=== PATIENT | female | born 1960 | race Caucasian/White ===

== ENCOUNTER 2022-02-11 10:56 | Day surgery (SDC) | payer OTHER, SELFPAY ==
[2022-02-02 09:36] VITALS: BMI 24.2
--- NOTE | 2022-02-11 07:20 | PM.HPGS ---
History of Present Illness History of Present Illness Consent: Risks, benefits, and alternatives have been discussed and questions answered. Patient agrees to proceed with procedure. Chief complaint: Melena, Constipation, Family HX Colon Cancer Narrative: Lisa Hermosillo is a 62 year old female Who has had a change in bowel habits and has been seeing blood in her stools lately. She has had issues with constipation. She sees red blood in the stool with clots in the toilet bowl. She has a strong family history of colon cancer including her sister and her mother. Review of Systems Review of Systems: All systems reviewed & are unremarkable except as noted in HPI and below PMFSH Past Medical History Medical History Cancer Chronic constipation Family hx of colon cancer Hematochezia Hx of breast cancer Normocytic anemia Family History Family History Father Family history of malignant neoplasm Mother Carcinoma of colon Other Family history of malignant neoplasm of breast Social History Social History Smoking status: Never smoker Second hand tobacco smoke exposure: No Alcohol intake: current Substance use: never Substance use type: does not use Living arrangements: alone Gender identity (if verbalized by the patient): Female Spiritual care concerns: No Meds Home Medications and Allergies Home Medications Medication Instructions Recorded Confirmed Type aspirin 325 mg tablet 325 mg PO DAILY 01/29/22 02/02/22 History loratadine 10 mg tablet 10 mg PO DAILY 01/29/22 02/02/22 History magnesium 200 mg tablet 400 mg PO DAILY 01/29/22 02/02/22 History montelukast 10 mg tablet 10 mg PO DAILY 01/29/22 02/02/22 History tamoxifen 20 mg tablet 20 mg PO DAILY 01/29/22 02/02/22 History Allergies Allergy/AdvReac Type Severity Reaction Status Date / Time No Known Allergies Allergy Verified 02/11/22 11:23 Exam Const: General: alert Orientation/consciousness: patient oriented x3 Resp: Auscultation: clear to auscultation bilaterally Cardio: Rhythm: regular rhythm GI: GI Palp: Yes Soft to palpation and No Tenderness to palpation present (GI) Neuro: General: patient oriented x3 Assessment and Plan Assessment and plan (1) Hematochezia: Code(s): K92.1 - Melena Status: Acute Assessment and Plan: Colonoscopy with possible biopsy or polypectomy or cautery or injection of substances.
[2022-02-11 11:30] VITALS: BMI 24.2
[2022-02-11 11:33] VITALS: BP 140/72; PULSE 83; RESP 14; TEMP 36.9; O2SAT 100
[2022-02-11] MEDS: LACTATED RINGERS 1,000 ML 150 ML IV CONT (12:00)
--- NOTE | 2022-02-11 12:12 | P.PNAN_ITS ---
Anes - Initial Pre Proc Eval Procedure: Operation Date: 02/11/22 13:00 Proposed Procedures p Diagnostic Colonoscopy - Gilmer Nogueira MD Date/Time: 02/11/22 12:12 Surgeon: Gilmer Nogueira MD Pre Op Diagnosis: Melena, Constipation, Family HX Colon Cancer Patient Data Age: 62 Gender: F Height: 1.68 m Weight: 68.1 kg Last Vital Signs Temp 36.9 C 02/11/22 11:33 Pulse 83 02/11/22 11:33 Resp 14 02/11/22 11:33 BP 140/72 02/11/22 11:33 Pulse Ox 100 02/11/22 11:33 O2 Del Method Room Air 02/11/22 11:33 Allergies Allergy/AdvReac Type Severity Reaction Status Date / Time No Known Allergies Allergy Verified 02/11/22 11:23 Home Medications Medication Instructions Recorded Confirmed Type aspirin 325 mg tablet 325 mg PO DAILY 01/29/22 02/02/22 History loratadine 10 mg tablet 10 mg PO DAILY 01/29/22 02/02/22 History magnesium 200 mg tablet 400 mg PO DAILY 01/29/22 02/02/22 History montelukast 10 mg tablet 10 mg PO DAILY 01/29/22 02/02/22 History tamoxifen 20 mg tablet 20 mg PO DAILY 01/29/22 02/02/22 History Patient hx anesthesia problems: none Family hx anesthesia problems: none Results Review: All pre-operative results and documents have been reviewed as part of the pre- operative evaluation. [facility] Past Medical History Medical History Cancer Chronic constipation Family hx of colon cancer Hematochezia Hx of breast cancer Normocytic anemia Surgical History Surgical History (Updated 02/11/22 @ 12:13 by Jorge Luis Monte MD) H/O colonoscopy Status post left breast lumpectomy Family History Family History Father Family history of malignant neoplasm Mother Carcinoma of colon Other Family history of malignant neoplasm of breast Social History Social History Smoking status: Never smoker Second hand tobacco smoke exposure: No Alcohol intake: current Substance use: never Substance use type: does not use Living arrangements: alone Gender identity (if verbalized by the patient): Female Spiritual care concerns: No Anes - Eval Final PreProcedure Day of Procedure 02/11/22 12:12 Patient weight: normal Heart: regular rate and rhythm Lungs: clear to auscultation Airway: Mallampati scale class II Neurological: alert and oriented Last oral intake: >/= 8 hours ASA classification: III Emergent: no Anesthetic plan: proceed Anesthesia type and monitoring: general GIVS and standard monitoring Results Review: All pre-operative results and documents have been reviewed as part of the pre- operative evaluation. Informed Consent: The patient's anesthetic plan and its attendant risks and benefits were discussed with the patient/family/POA. Questions were solicited and answers provided to the satisfaction of the patient/family/POA.
[2022-02-11 12:59] VITALS: BP 113/74; PULSE 83; RESP 13; O2SAT 100
[2022-02-11 13:09] VITALS: BP 117/67; PULSE 77; RESP 14; O2SAT 99
--- NOTE | 2022-02-11 13:13 | WPDANESPN ---
Anes - Prog Note Post-Op Date/Time: 02/11/22 13:13 Cardiovascular status: normal Respiratory status: normal Airway patency: baseline Mental status: baseline Post-Op hydration status: normal Vital Signs: Last Vital Signs Temp 36.9 C 02/11/22 11:33 Pulse 77 02/11/22 13:09 Resp 14 02/11/22 13:09 BP 117/67 02/11/22 13:09 Pulse Ox 99 02/11/22 13:09 O2 Del Method Room Air 02/11/22 13:09 Pain Score (VAS): 0/10 I/O: Intake & Output 02/10/22 02/11/22 02/11/22 23:59 07:59 15:59 Intake Total 600 Balance 600 Patient Feedback: Patient satisfied with anesthetic care.
[2022-02-11 13:19] VITALS: BP 129/71; PULSE 77; RESP 14; O2SAT 99
== END 2022-02-11 13:37 | disposition home or self-care (01) ==
PROVIDERS: PCP Internal Medicine; Visit Provider Internal Medicine Gastroenterology
PROC: 0DJD8ZZ Inspection of Lower Intestinal Tract, Via Natural or Artificial Opening Endoscopic (ICD-10-PCS; CPT 45378; principal; 2022-02-11 13:00)
DX: K92.1 Melena (principal)
CPT/HCPCS: 45378

== ENCOUNTER 2022-11-10 10:07 | Outpatient (CLI) | payer BC, SELFPAY ==
[2022-11-10 18:52] LABS: Basophils Percent Auto 0.8 % (0.2-1.2); Eosinophils Absolute Auto 0.2 K/mm3 (0-0.3); Eosinophils Percent Auto 5.8 % (0-4.4); Hematocrit 37.9 % (37.0-47.0); Hemoglobin 11.8 g/dL (12.0-15.0); Immature Granulocyte Absolute 0.01 K/mm3 (0.00-0.031); Immature Granulocyte Percent A 0.3 % (0-0.5); Lymphocytes Percent Auto 28.8 % (18.3-44.2); Mean Corpuscular HGB Conc 31.1 g/dl (32-36); Mean Corpuscular Volume 96.4 fl (80-100); Mean Platelet Volume 9.7 fl (7.4-10.4); Monocytes Absolute Auto 0.4 K/mm3 (0.1-0.6); Monocytes Percent Auto 9.9 % (2.6-8.5); Neutrophils Absolute Auto 2.1 K/mm3 (1.3-6.7); Neutrophils Percent Auto 54.4 % (45.5-73.1); Platelet Count Result 215 k/mm3 (150-375); Red Blood Count 3.93 M/mm3 (4.2-5.4); Red Cell Distribution Width 12.6 % (11.5-14.5); White Blood Count 3.8 K/mm3 (4.5-10.0)
[2022-11-10 19:16] LABS: Alanine Aminotransferase 23 U/L (6-35); Albumin Level 4.2 g/dL (3.5-5.1); Alkaline Phosphatase 79 U/L (38-126); Anion Gap 5 mmol/L (8-16); Aspartate Amino Transferase 40 U/L (14-36); Bilirubin,Total 0.3 mg/dL (0.2-1.3); Blood Urea Nitrogen 16 mg/dL (7-17); Calcium 9.5 mg/dL (8.4-10.2); Carbon Dioxide 34 mmol/L (22-30); Chloride 105 mmol/L (98-107); Cholesterol 214 mg/dL (0-200); Estimated Glomerular Filt Rate > 60; Glucose 87 mg/dL (65-110); HDL Direct 44 mg/dL; Potassium 4.8 mmol/L (3.4-5.0); Sodium 144 mmol/L (137-145); Triglycerides 107 mg/dL (<150)
[2022-11-10 19:27] LABS: LDL Cholesterol Direct 114 mg/dL
[2022-11-10 20:05] LABS: Vitamin D 25 Hydroxy 89.7 ng/mL
[2022-11-10 21:00] LABS: Iron 74 ug/dL (37-170); Percent Iron Saturation 25 % (20-50)
== END 2022-11-10 10:08 | disposition home or self-care (01) ==
LOC: ANHGOSHLAB 10:09
PROVIDERS: PCP Internal Medicine; Visit Provider Clinical Nurse Specialist
DX: Z13.220 Encounter for screening for lipoid disorders (principal); K59.09 Other constipation; E55.9 Vitamin D deficiency, unspecified; D64.9 Anemia, unspecified; M51.36 Other intervertebral disc degeneration, lumbar region; M54.41 Lumbago with sciatica, right side
CPT/HCPCS: 36415; 80053; 80061; 82306; 82728; 83540; 83550; 84443; 85025

== ENCOUNTER → 2023-06-02 10:14 | Outpatient (CLI) | payer BC, SELFPAY ==
--- NOTE | ~2023-06-02 | MR_ITS ---
EXAMINATION: MR brain/brain stem wo/w con DATE: 06/02/2023 11:18 INDICATION: Headache, unspecified. TECHNIQUE: Magnetic resonance imaging (MRI) of the brain and brainstem was performed without and with 13 mL MultiHance intravenous contrast. COMPARISON: None. FINDINGS: There is susceptibility artifact from material in the patient's mouth. There is no intracra nial hemorrhage, acute infarction, or abnormal intracranial mass lesion. The ventricles are normal in size. The paranasal sinuses are clear. The orbits are normal. There is a trace left mastoid effusion . IMPRESSION: 1. Normal brain. Reviewed, dictated and finalized at location A. SHING FRAME [employer]NER IMPRESSION: 1. Normal brain.
== END ==
PROVIDERS: Visit Provider Clinical Nurse Specialist
DX: G89.29 Other chronic pain (principal); R51.9 Headache, unspecified
CPT/HCPCS: 70553; A9577

== ENCOUNTER 2023-06-16 10:37 | Outpatient (CLI) | payer BC, SELFPAY ==
--- NOTE | ~2023-06-16 | MMUS_ITS ---
EXAMINATION: MM diagnostic kain BI w chauncey, US axilla LT HISTORY: Palpable left axillary abnormality TECHNIQUE: Additional 3-D tomosynthesis images of the breasts were performed and synthetic 2-D images were generated. CAD analysis was submitted and interpreted. High resolution left axillary ultrasound was performed. COMPARISON: Comparison to multiple prior studies sequentially, with oldest reviewed study dated 09/2017. BREAST PARENCHYMAL COMPOSITION: Dense: The breasts are heterogeneously dense, which may obscure small masses FINDINGS: MAMMOGRAPHIC FINDINGS: The breasts are stable. Stable postsurgical changes in the left breast consistent with previous lumpe ctomy. No new masses, calcifications or architectural distortion in either breast to suggest malignan cy. ULTRASOUND: Limited left axillary ultrasound: There are normal-appearing lymph nodes measuring up to 1.5 cm with normal fatty hilum. No pathologic lymph nodes are identified. IMPRESSION: 1. No evidence for malignancy in either breast. Benign findings. 2. Routine yearly screening mammogram and regular clinical breast examination are recommended. BI-RADS Category 2: Benign finding(s). Reviewed, dictated and finalized at location A. WELDER IMPRESSION: 1. No evidence for malignancy in either breast. Benign findings. 2. Routine yearly screening mammogram and regular clinical breast examination a re recommended. BI-RADS Category 2: Benign finding(s).
== END 2023-06-16 10:38 | disposition home or self-care (01) ==
PROVIDERS: PCP Clinical Nurse Specialist; Visit Provider Clinical Nurse Specialist
DX: R22.32 Localized swelling, mass and lump, left upper limb (principal); Z85.3 Personal history of malignant neoplasm of breast
CPT/HCPCS: 76882; 77062; 77066; G0279

== ENCOUNTER 2023-08-11 08:00 | Outpatient (CLI) | payer BC, SELFPAY ==
--- NOTE | ~2023-08-11 | CT_ITS ---
EXAMINATION: CT sinus wo con DATE: 08/11/2023 08:32 INDICATION: Chronic maxillary sinusitis TECHNIQUE: Computed tomography (CT) of the paranasal sinuses was performed without intravenous contra st. The dose-length product was 439.29 mGy-cm. Automated exposure control and iterative reconstructio n technique were employed. COMPARISON: MRI dated 06/02/2023 FINDINGS: There is mucosal thickening of the right maxillary sinus. No significant nasal septal devia tion. There is a right-sided zion bullosa. There are left-sided Javon cells. Ostiomeatal units are patent. Mastoids are pneumatized. IMPRESSION: 1. Mild right maxillary sinus disease. Reviewed, dictated and finalized at location B.
== END 2023-08-11 08:01 ==
PROVIDERS: PCP Clinical Nurse Specialist; Visit Provider Otolaryngology
DX: J32.0 Chronic maxillary sinusitis (principal)
CPT/HCPCS: 70486

== ENCOUNTER 2023-08-19 11:01 | Outpatient (CLI) | payer BC, SELFPAY ==
--- NOTE | ~2023-08-19 | XR_ITS ---
[id number] 08/19/2023 11:15 Indication: Neck pain Procedure: 3 views cervical spine Comparison: No prior studies for comparison. Findings: There is reversal of cervical lordosis. There is disc narrowing and endplate degenerative c hange at C4-5, C5-6. No prevertebral soft tissue swelling. Lung apices are unremarkable. Odontoid pro cess is unremarkable. Impression: 1: Moderate cervical spondylosis. Reviewed, dictated and finalized at location B. Impression: 1: Moderate cervical spondylosis.
== END 2023-08-19 11:02 ==
PROVIDERS: PCP Clinical Nurse Specialist; Visit Provider Clinical Nurse Specialist
DX: M47.22 Other spondylosis with radiculopathy, cervical region (principal)
CPT/HCPCS: 72040

== ENCOUNTER 2023-12-29 10:35 | Outpatient (CLI) | payer BC, SELFPAY ==
--- NOTE | ~2023-12-29 | DEXA_ITS ---
Bone Density Report Name: ANITHA OSBORN Age: 63 Sex: Female Ethnicity: White Date of : 1960 Indication: postmenopausal; screening for osteoporosis; cancer; asthma or emphysema; Referring Provider: KALYAN SAMANIEGO Study: Bone densitometry was performed. Exam Date: December 29, 2023 Accession number: [id number] Bone Density: Region BMD T-score Z-score Classification AP Spine(L1-L4) 0.974 -0.7 0.9 Normal Femoral Neck (Left) 0.705 -1.3 0.1 Osteopenia Total Hip (Left) 0.888 -0.4 0.6 Normal Femoral Neck (Right) 0.810 -0.4 1.0 Normal Total Hip (Right) 0.883 -0.5 0.6 Normal Femoral Neck Mean 0.757 -0.8 0.5 Normal Total Hip Mean 0.886 -0.5 0.6 Normal World Health Organization criteria for BMD impression classify patients as: Normal (T-score at or above -1.0), Osteopenia (T-score between -1.0 and -2.5), or Osteoporosis (T-score at or below -2.5). 10-year Fracture Risk(1): Major Osteoporotic Fracture 8.0% Hip Fracture 0.6% Reported Risk Factors: [place] (), Neck BMD=0.705, BMI=24.7 (1) FRAX(R) Version 3.08. Fracture probability calculated for an untreated patient. Fracture probability may be lower if the patient has received treatment. Clinical Information Provided by Patient: Has used the following medications: Vitamin D Has the following medical conditions: Asthma or Emphysema, Cancer Patient maximum height was 66 Menopause Age: 52 Drinks caffeinated beverages Onset of menses at age 15 Number of children 0 Impression: The patient has low bone mass, based on the Left Femoral Neck T-score. Discussion: BONE DENSITY IS LOW AT ONE OR MORE SKELETAL SITES. This patient's lowest T-score is low at one or more skeletal sites. It meets the World Health Organization's (WHO) criteria for ?low bone mass? (T-score between -1.0 and -2.5). The patient's 10-year risk of fracture as calculated by FRAX is less than the threshold where pharmacological therapy is recommended by the National Osteoporosis Foundation (NOF). However, all treatment decisions require clinical judgment and consideration of individual patient factors, including patient preferences, comorbidities, previous drug use, risk factors not captured in the FRAX model (e.g., frailty, falls, vitamin D deficiency, increased bone turnover, interval significant decline in bone density) and possible under or overestimation of fracture risk by FRAX. The patient should follow a healthful lifestyle (good nutrition with adequate calcium and vitamin D, and appropriate weight-bearing exercise). Follow-Up: Consider repeating this study in 2 to 3 years to reassess this patient's status, or sooner if there is some new clinical indication. Reported by: ANNIE on 01/03/2024 11:23:00 AM. Reviewed, dictated and finalized at location A.
== END 2023-12-29 10:36 | disposition home or self-care (01) ==
LOC: CHSIMG 10:36
PROVIDERS: PCP Clinical Nurse Specialist; Visit Provider Clinical Nurse Specialist
DX: Z78.0 Asymptomatic menopausal state (principal); M85.88 Other specified disorders of bone density and structure, other site
CPT/HCPCS: 77080

== ENCOUNTER 2024-02-09 10:48 | Outpatient (CLI) | payer BC, SELFPAY ==
--- NOTE | ~2024-02-09 | XR_ITS ---
EXAMINATION: XR chest 2V 02/09/2024 10:55 INDICATION: History of asthma. Shortness of breath. PROCEDURE: Two-view chest COMPARISON: No prior studies for comparison. FINDINGS: The lungs are clear. The cardiomediastinal silhouette is within normal limits. There are no pleural effusions. There is no pneumothorax suspected. IMPRESSION: 1: NO ACUTE CARDIOPULMONARY DISEASE. Reviewed, dictated and finalized at location B.
== END 2024-02-09 10:49 | disposition home or self-care (01) ==
LOC: GOSHIMG 10:49
PROVIDERS: PCP Clinical Nurse Specialist; Visit Provider Clinical Nurse Specialist
DX: R06.02 Shortness of breath (principal); Z87.09 Personal history of other diseases of the respiratory system
CPT/HCPCS: 71046

== ENCOUNTER → 2024-02-27 09:35 | Outpatient (REF) | payer BC, SELFPAY | LOC: ANHLAB 09:35 | PROVIDERS: PCP Clinical Nurse Specialist; Visit Provider Plastic Surgery | DX: L72.0 Epidermal cyst (principal); R22.2 Localized swelling, mass and lump, trunk | CPT/HCPCS: 88304 ==

== ENCOUNTER 2024-04-14 10:12 | Emergency (ER) | payer BC, SELFPAY ==
[2024-04-14 10:53] VITALS: BP 145/77; PULSE 74; RESP 14; TEMP 36.5; O2SAT 99
[2024-04-14 13:45] LABS: Add Urine Microscopic? YES; Appearance Urine Cloudy (Clear); Bilirubin Urine Negative (Negative); Blood Urine Negative (Negative); Color Urine Yellow (Yellow); Glucose Urine UA Negative (Negative); Ketones Urine Negative (Negative); Leukocyte Esterase Ur 2+ LEU/UL (Negative); Mucus Urine Present /lpf; Nitrate Urine Negative (Negative); Non Pathogenic Casts 0-2; Protein Urine Negative (Negative); RBC Urine 0-2 /hpf (0-2); Specific Grav Ur 1.023 (1.001-1.035); Squamous Epithelial Cell Urine None Seen /hpf (Few); Urobilinogen Urine 0.2 mg/dL (<2.0); WBC Urine 21-50 /hpf (0-3); pH Urine 5.5 (5.0-9.0)
[2024-04-14 13:46] LABS: Bacteria Urine Trace /hpf
--- NOTE | 2024-04-14 13:50 | ED.GENADULT ---
HPI - General Adult General Chief complaint: Urogenital-Female Stated complaint: back pain/ think I have a kidney stone Time Seen by Provider: 04/14/24 13:20 History of Present Illness HPI narrative: 64-year-old female presented emergency department for evaluation for lower back pain. Patient states the pain does feel similar to her previous kidney stones. Patient denies any specific urinary symptoms. Patient states the pain did start her lower back and did appear to worsen after she had an exercise regime. Patient states that the pain does sometimes radiate to her right flank. Patient denies any hematuria at home. Related Data Home Medications ?Medication ?Instructions ?Recorded ?Confirmed ?Last Taken ?Type loratadine 10 mg tablet 10 mg PO DAILY 01/29/22 12/29/23 Unknown History magnesium 200 mg tablet 400 mg PO DAILY 01/29/22 12/29/23 Unknown History montelukast 10 mg tablet 10 mg PO DAILY 01/29/22 12/29/23 Unknown History Saccharomyces boulardii 250 mg 250 mg PO BID 03/24/23 12/29/23 Unknown History capsule (Daily Probiotic (S. boulardii)) multivitamin 1 tablet PO DAILY 03/24/23 12/29/23 Unknown History Allergies Allergy/AdvReac Type Severity Reaction Status Date / Time No Known Allergies Allergy Verified 02/27/24 08:49 Review of Systems Review of Systems: All systems reviewed & are unremarkable except as noted in HPI and below PMFSH Past Medical History Medical History Cancer Chronic constipation Family hx of colon cancer Hematochezia Hx of breast cancer Normocytic anemia Surgical History Surgical History H/O colonoscopy History of mandibular surgery Sep 05 2023 Status post left breast lumpectomy Family History Family History Father Family history of malignant neoplasm Mother Carcinoma of colon Other Family history of malignant neoplasm of breast Social History Social History Social History: Caffeine-soda Smoking status: Former smoker Second hand tobacco smoke exposure: No Additional smoking assessment comments: quit 2005 Alcohol intake: current Alcohol use details: Rarely Substance use: never Substance use type: does not use Lack of Transportation: No Lack of Food: Never True Current Housing: I Have Housing Concerned About Future Housing: No Difficulty Paying Gas/Electric Bills: No Difficulty Paying for Meds: No Currently Unemployed: No Education: Trade/Vocational Certificate Difficulty w/ Childcare or Family Care: No Living arrangements: alone Occupation/Education: occupation Gender identity (if verbalized by the patient): Female Spiritual care concerns: No Exam Narrative: APPEARANCE: Well appearing, no pain, no distress, well-nourished. HEAD: normocephalic, atraumatic. EYES: PERRLA/EOMI, conjunctivae clear. NOSE: Normal no drainage EARS:TMS clear with good light reflex. THROAT: Pharynx clear, no exudate. NECK: Supple. No adenopathy, no masses. RESPIRATORY: Airway patent, respirations nonlabored. Clear to auscultation bilaterally, no rales, rhonchi, wheezing. CARDIOVASCULAR: Regular rate and rhythm without murmurs rubs or gallops. ABDOMINAL: Soft, nontender, nondistended, normal bowel sounds MUSCULOSKELETAL: Moves all extremities. Strength/ROM intact, No edema, No calf tenderness. NEURO: Alert. Cranial nerves II through XII intact. Good gait. Good coordination SKIN: Warm, dry. Normal Color Course Course Emergency Course: APPEARANCE: Well appearing, no pain, no distress, well-nourished. HEAD: normocephalic, atraumatic. EYES: PERRLA/EOMI, conjunctivae clear. NOSE: Normal no drainage EARS:TMS clear with good light reflex. THROAT: Pharynx clear, no exudate. NECK: Supple. No adenopathy, no masses. RESPIRATORY: Airway patent, respirations nonlabored. Clear to auscultation bilaterally, no rales, rhonchi, wheezing. CARDIOVASCULAR: Regular rate and rhythm without murmurs rubs or gallops. ABDOMINAL: Soft, nontender, nondistended, normal bowel sounds MUSCULOSKELETAL: Moves all extremities. Strength/ROM intact, No edema, No calf tenderness. NEURO: Alert. Cranial nerves II through XII intact. Grossly intact SKIN: Warm, dry. Normal Color Vital Signs Vital signs: Vital Signs Temperature 97.7 F 04/14/24 10:53 Pulse Rate 74 04/14/24 10:53 Respiratory Rate 14 04/14/24 10:53 Blood Pressure 145/77 H 04/14/24 10:53 Pulse Oximetry 99 04/14/24 10:53 Temperature 97.7 F 04/14/24 10:53 Pulse Rate 74 04/14/24 10:53 Respiratory Rate 14 04/14/24 10:53 Blood Pressure 145/77 H 04/14/24 10:53 Pulse Oximetry 99 04/14/24 10:53 Medical Decision Making MDM Narrative Medical decision making narrative: 64-year-old female presenting to the emergency department for evaluation for lower back pain. Patient was concerned that she was having another kidney stone or urinary tract infection versus muscular injury. Patient does have leukocyte esterase positive urine with high white blood cells. Urine culture will be ordered and patient will be started on antibiotics for suspected UTI. With a lack as hematuria and pain being at her mid level back I have low clinical concern for an obstructing ureteral calculi. Patient will also be provided medications for pain control in addition to Flexeril in case this is a musculoskeletal injury. Patient was updated the results of the workup patient was comfortable with plan for discharge and close follow-up. Differential Diagnosis Differential Diagnosis: UTI, ureteral calculi, back injury Vital Signs Vital Signs: Vital Signs Temperature 97.7 F 04/14/24 10:53 Pulse Rate 74 04/14/24 10:53 Respiratory Rate 14 04/14/24 10:53 Blood Pressure 145/77 H 04/14/24 10:53 Pulse Oximetry 99 04/14/24 10:53 Temperature 97.7 F 04/14/24 10:53 Pulse Rate 74 04/14/24 10:53 Respiratory Rate 14 04/14/24 10:53 Blood Pressure 145/77 H 04/14/24 10:53 Pulse Oximetry 99 04/14/24 10:53 Lab Data Lab results reviewed: Yes I reviewed the patient's lab results. Labs: Lab Results 04/14/24 Range/Units 13:27 Urine Color Yellow (Yellow) Urine Appearance Cloudy H (Clear) Urine pH 5.5 (5.0-9.0) Ur Specific [place] 1.023 (1.001-1.035) Urine Protein Negative (Negative) mg/dL Urine Glucose (UA) Negative (Negative) mg/dL Urine Ketones Negative (Negative) mg/dL Ur Blood (Man) Negative (Negative) Urine Nitrate Negative (Negative) Urine Bilirubin Negative (Negative) Urine Urobilinogen 0.2 (<2.0) mg/dL Leukocyte Esterase Rfl 2+ H (Negative) MILDRED/UL Urine RBC 0-2 (0-2) /hpf Urine WBC 21-50 H (0-3) /hpf Ur Squamous Epith Cells None seen (Few) /hpf Urine Bacteria Trace (None) /hpf Urine Casts 0-2 Urine Mucus Present /lpf Discharge Plan Discharge Clinical Impression: Back pain, Abnormal urinalysis Patient Disposition: Home, Self-Care Condition: Stable Instructions: Antibiotic Form, Urinary Tract Infection in Men (ED), Back Pain (ED) Additional Instructions: Antibiotic as directed until completed. Tylenol and ibuprofen for pain control. Flexeril as needed for muscle spasm. Have close follow-up with your primary care physician. Patient Language: Marshallese Prescriptions: New cyclobenzaprine 10 mg tablet 10 mg PO BID PRN (Reason: muscle spasm) Qty: 14 0RF cephalexin 500 mg capsule 500 mg PO Q8H 7 Days Qty: 21 0RF No Action montelukast 10 mg tablet 10 mg PO DAILY loratadine 10 mg tablet 10 mg PO DAILY magnesium 200 mg tablet 400 mg PO DAILY multivitamin Tablet 1 tablet PO DAILY Saccharomyces boulardii [Daily Probiotic (S. boulardii)] 250 mg capsule 250 mg PO BID cyclobenzaprine 5 mg tablet 5 mg PO TID PRN (Reason: muscle spasm) Qty: 30 0RF Rx Instructions: Do not take while driving. May cause drowsiness. albuterol sulfate 90 mcg/actuation HFA aerosol inhaler 1 puff inhalation Q4H PRN (Reason: shortness of breath or wheezing) Qty: 8.5 0RF Follow-up/Referrals: Angela Garza, ASSISTANT DEAN[facility] [Primary Care Provider] -
[2024-04-14] MEDS: CYCLOBENZAPRINE HCL 10 MG TABLET PO (14:01)
[2024-04-14] MEDS: CEPHALEXIN 500 MG CAPSULE PO (14:01)
--- OUTSIDE RECORDS SUMMARY | 2024-04-21 12:16 | XMS_ITS | Clinical Summary ---
Author Organization [place] [id number] [facility] Address [address] [place] [address] Care Team Providers Care Post Framer Name Role Phone Almita Smallwood MD Unavailable Yuri Rocha MD Unavailable [phone] Angela Garza NP Primary Care Provider [phone] Allergies No known active allergies Medications collagen, hydrolysate, bovine, (COLLAGEN, HYDR, BOVINE,, BULK, MISC) by [facility].(Non-Drug; Combo Route) route. Active levocetirizine (XYZAL) 5 mg tablet Take 5 mg by mouth nightly 0 Active cyclobenzaprine (FLEXERIL) 5 mg tablet Take 5-10 mg by mouth 2 (two) times a day as needed 2 Active montelukast (SINGULAIR) 10 mg tablet Take 1 tablet (10 mg total) by mouth nightly Active tamoxifen (NOLVADEX) 20 mg tabletIndicatio ns:prevention of breast cancer in high risk women Take 1 tablet (20 mg total) by mouth daily 90 tablet 3 2 Active Additional Information Patient not taking.Reported on 01/11/2024 tiZANidine (ZANAFLEX) 2 mg tablet Take 2 mg by mouth every 8 (eight) hours 2 Active aspirin 81 mg enteric coated tablet Take 81 mg by mouth daily Active multivitamin tablet,chewable Take 2 Gum by mouth every morning Active HYDROcodone-ita taminophen (NORCO) 5-325 mg per tabletIndicatio ns:Pain Take 1 tablet by mouth every 4 (four) hours as needed for pain 20 tablet 2 Active Additional Information Patient not taking.Reported on 01/11/2024 ibuprofen (ADVIL,MOTRIN) 600 mg tablet Take 1 tablet (600 mg total) by mouth every 6 (six) hours as needed 4 Active cholecalciferol (VITAMIN D-3) 400 unit/mL drops daily Active sodium chloride (OCEAN) 0.65 % nasal spray Administer 2 sprays into affected nostril(s) every 2 (two) hours as needed 4 Active Active Problems Problem Noted Date Diagnosed Date Inconclusive mammogram due to dense breasts 06/17 Family history of breast cancer 07/06/2023 Sebaceous cyst 04/06/2022 Overview (04/06/2022): Added automatically from request for surgery [id number] Breast neoplasm, Tis (LCIS), left 08/06/2021 Breast cancer screening, high risk patient 08/06 Dense breast tissue on mammogram 08/06/2021 Encounter for screening mammogram for breast can cer 08/06/2021 Encounter for follow-up surveillance of breast c ancer 08/06/2021 Prophylactic use of tamoxifen 08/06/2021 Encounter for monitoring tamoxifen therapy 08/06 Asthma, chronic, mild persistent, uncomplicated 06/06/2020 Centrilobular emphysema 06/06/2020 Multiple idiopathic cysts of lung 06/06/2020 Personal history of tobacco use 04/20/2020 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 breast 1 Overview (04/16/2020): S/P Lumpectomy 11/2016. ER (+). LN (-). No XRT or chemorx needed. On Tamoxifen. Osteoporosis screening 09/15/2017 Resolved Problems Problem Noted Date Diagnosed Date Resolved Date Smoking 08/06/2021 Encounters Date Type Department Care Team Description 02/15/2024 Orders Only [facility] Oncology [address] [place] [address] [address] [place] [address] Snow Calabrese MD 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 breast; Breast neoplasm, Tis (LCIS), left; Family history of breast cancer 02/15/2024 Orders Only [facility] Oncology [address] [facility] [address] [place] [address] Snow Calabrese MD Family history of breast cancer (Primary Dx); 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 breast; Breast neoplasm, Tis (LCIS), left from Last 3 Months Immunizations Name Administration Dates Next Due Pfizer SARS-CoV-2 Monovalent Vaccination (12+ Yrs) PURPLE 01/30/2021,08/14/2020,07/23/2020 Surgical History Surgery Date Site/Laterality Comments TUBAL LIGATION BREAST BIOPSY 10/17/2018 Right benign axillary node BREAST BIOPSY 10/27/2016 Left DCIS BREAST BIOPSY ? Right benign needle bx MASTECTOMY, PARTIAL 11/22/2016 Left For Stage 0 breast CA at [facility] in [place], [place]. No chemorx or XRT, only Tamoxifen. 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 Family History Medical History Relation Name Comments Leukemia Father Breast cancer Father's Sister Kallie Colon cancer Mother at 63 Colon cancer Sister survived Ovarian cancer Neg Hx Thyroid cancer Neg Hx Relation Name Status Comments Father Father's Sister Kallie Alive Mother Sister Alive Social History Tobacco Use Types Packs/Day Years Used Date Smoking Tobacco: Former Cigarettes Q uit: 2005 Smokeless Tobacco: Never Tobacco Cessation:Counseling Given: Not Answered Alcohol Use Standard Drinks/Week Comments Yes 0 (1 standard drink = 0.6 oz pur e alcohol) rarely AUDIT-C Answer Date Recorded Q1: How often do you have a drink containing alc ohol? Monthly or less 08/06/2021 Average Number of Drinks Not on file 022 Q3: How often do you have si x or more drinks on one occasion? 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[employer]) Not on file Not on file Not on file Obstetrics History Para Term AB IAB SAB Ectopic Multiple Livin g Live Births 3 2 2 1 1 0 0 2 2 Date Outcome GA Total Labor Labor/2nd/3rd Weight Sex Type Anes PTL Ankita A1 A5 Name Clin IAB 1981 Term M Vag-S pont Living 1983 Term F Vag-S pont Living Last Filed Vital Signs Vital Sign Reading Time Taken Comments Blood Pressure 141/79 01/11/2024 10:38 AM CDT Pulse 75 01/11/2024 10:38 AM CDT Temperature 37 ??C (98.6 ??F) 01/11/2024 10: 38 AM CDT Respiratory Rate 18 01/11/2024 10:3 8 AM CDT Oxygen Saturation 98% 01/11/2024 10: 38 AM CDT Inhaled Oxygen Concentration - - Weight 69.7 kg (153 lb 9.6 oz) 01/11/20 24 10:38 AM CDT with shoes Height 165.1 cm (5' 5 ) 04/07/2022 8:39 AM TRIAGE SPECIALIST Body Mass Index 25.56 04/07/2022 8:39 AM TRIAGE SPECIALIST Plan of Treatment Health Maintenance Due Date Last Done Comments Colon Cancer Screening-Colonoscopy 1960 Hepatitis C Screening 1960 Pneumococcal vaccine <65 (1 of 2 - PCV) 02/12/1968 Hepatitis B Screening 02/12/1980 Cervical Cancer Screening 04/16/2021 04/16/2020 Depression Screening 04/16/2021 04/16/2020 Regular Well Visit/Exam 18-64 04/29/2022 04/29/2021, 04/16/2020 Covid-19 Vaccine (2023-2 5 season) 2023 01/30/2021, 08/14/2020, 07/23/2020 Influenza Vaccine (#1) 2023 2, 04/01/2021, 01/17/2020, Additional history exists Breast Cancer Screening-Mammogram 12/08/2024 12/09/2023, 06/29/2022, 06/25/2021, Additional history exists DTaP/Tdap/Td Vaccine (2 - Td or Tdap) 03/14/2028 03/14/2018 Zoster Vaccine Completed 01/07/2022, 10/23/2021 Procedures Procedure Name Priority Date/Time Associated Diagnosis Comments [facility] BRACANALYSIS AND MYRISK / NOTE 2 TESTS Routine 02/15/2024 8:26 AM CDT 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 breast Breast neoplasm, Tis (LCIS), left Family history of breast cancer SCREENING MAMMOGRAM BILATERAL W CHRIS Schedule Routine, Read Routine (OP Routine) 12/09/2023 7:44 AM CDT Encounter for screening mammogram for breast cancer PAP WITH REFLEX TO HIGH RISK HPV Routine 04/16/2020 9:07 AM TRIAGE SPECIALIST from Last 3 Months or Most Recently Relevant to Health Maintenance Results * [facility] BRACAnalysis and MyRisk / Note 2 Tests (M0001) (02/15/2024 8:26 AM CDT) Pathologist [facility] Bracanalysis and Myrisk / Note 2 Tests Significant Clinical History Finding 02/23/2024 4:04 PM TRIAGE SPECIALIST [employer] [facility] Comment: BRACANALYSIS AND MYRISK / NOTE 2 TESTS See PDF for complete results. CLINICAL HISTORY ANALYSIS: BASED ON THE CLINICAL HISTORY PROVIDED, MODIFIED MEDICAL MANAGEMENT GUIDELINES IDENTIFIED NO VARIANT(S) OF UNCERTAIN SIGNIFICANCE (VUS) IDENTIFIED Blood specimen (specimen) (Blood, Venous) 02/15/2024 8:26 AM CDT 02/16/2024 3:16 PM CDT Snow Calabrese MD LAB GENETIC TESTING Final R esult [facility] [address] [place] [address] * Screening Mammogram Bilateral W Chris (12/09/2023 7:44 AM CDT) Anatomical Region Laterality Modality Breast Bilateral Mammography Impressions 12/09/2023 8:11 AM CDT BI-RADS?? ATLAS category (overall): 2 - Benign There is no mammographic evidence of malignancy. A 1 year screening mammogram is recommended. The patient has been or will be contacted. We recommend annual screening mammography for women at average risk of breast cancer beginning at age 40, based on guidelines of the [employer] (ACR Practice Parameter for the Performance of Screening and Diagnostic Mammography) and [employer]. For women with and elevated risk of breast cancer, please refer to the ACR Practice Parameter for specific screening recommendations. The patient will be entered into a reminder system with a target due date of 1 year for her next screening exam. Narrative 12/09/2023 8:11 AM CDT Screening Mammogram Bilateral W Chris: 12/09/23 The study was acquired using full field digital technology and interpreted from soft copy. 2D digital mammographic views, as well as 3D digital tomosynthesis were performed in the CC and MLO projections. CLINICAL: ??Encounter for screening mammogram for breast cancer. ??Medical history includes breast cancer and smoking. ??History of breast cancer in Father's Sister. COMPARISONS: 02/18/2023 MRI Breast Bilateral W WO Contrast 06/29/2022 Screening Mammogram Bilateral W Chris 12/17/2021 MRI Breast Bilateral W WO Contrast 06/26/2021 Breast Imaging Outside Reference 06/25/2021 Screening Mammogram Bilateral W Chris BREAST TISSUE: The breasts are heterogeneously dense, which may obscure small masses. FINDINGS: There are stable post operative changes in the left breast. Unchanged biopsy marker clips in both breasts. ??There is no new suspicious finding in either breast on mammogram. ?? Snow Calabrese MD IMG MAMMO PROCEDURES Final Result * Pap with reflex to High Risk HPV (04/16/2020 9:07 AM TRIAGE SPECIALIST) 04/16/2020 9:07 AM TRIAGE SPECIALIST 04/16/2020 9:07 AM TRIAGE SPECIALIST Narrative [facility] - 04/21/2020 10:13 AM TRIAGE SPECIALIST [facility] Department of Pathology [address] [place] [address] Final Report with Addendum Patient Name: ??ANURAG LISA Address: ??[address],, ?? [place] [address] Gender: ??F : ??1960 (Age: 60) Service: ??Laboratory Location: ??Lab Hospital #: ??[id number] Patient Type: ?? Ref Lab Taken: ??04/16/2020 Received: ??04/16/2020 Accessioned:: ??04/17/2020 Reported: ??04/21/2020 Physician(s): Almita Obando Diagnosis: Source of Specimen: ? Imaged Thinprep Pap Test plus HPV - Telemetry Tech Cytologic Material Specimen Adequacy: ?- Specimen satisfactory for interpretation; endocervical/transformation zone component absent or ?insufficient General Category: ?- Negative for intraepithelial lesion or malignancy ?? LUKE Baron(ASCP) Report Electronically Reviewed and Signed Out By ??LUKE Baron(ASCP) ??04/21/2020 10:13:39 ??Addenda: HPV Test Interpretation NEGATIVE for types 16, 18, 31, 33, 35, 39, 45, 51, 52, 56, 58, 59, 66 and 68. Test performed utilizing Gen-Probe Aptima assay. ?? LUKE Leiva(ASCP) ??Report Electronically Reviewed and Signed Out By ??LUKE Leiva(ASCP) ??04/17/2020 12:07:25 ? Specimen(s) Received: A: Imaged Thinprep Pap Test plus HPV - Telemetry Tech Cytologic Material Clinical History: Last Menstrual Period: 2014 Menstrual History: Post-menopausal The Pap test is a screening test used to aid in the detection of cervical cancer and its precursors. ??It should not be the sole means by which malignant and premalignant lesions are diagnosed. ??Both false negative and false positive results may occur. ?? It also has poor sensitivity for the detection of endometrial lesions and should not be used to evaluate suspected endometrial abnormalities. ??For these reasons it is most important to obtain Pap tests at regular intervals. The performance characteristics of some immunohistochemical stains, fluorescence in-situ hybridization tests and immunophenotyping by flow cytometry cited in this report (if any) were determined by the Surgical Pathology Department at [facility] as part of an ongoing software quality specialist program and in compliance with federally mandated regulations drawn from the Clinical Laboratory Improvement Act of 1988 (CLIA '88). ??Some of these tests rely on the use of analyte specific reagents and are subject to specific labeling requirements by the US Food and Drug Administration. ??Such diagnostic tests may only be performed in a facility that is certified by the Department of Health and Human Services as a high complexity laboratory under CLIA '88. The FDA has determined that such clearance or approval is not necessary. ??This test is used for clinical purposes. ??It should not be regarded as investigational or for research. ??Nevertheless, federal rules concerning the medical use of analyte specific reagents require that the following disclaimer be attached to the report: This test was developed and its performance characteristics determined by the Surgical Pathology Department [facility]. ??It has not been cleared or approved by the U. S. Food and Drug Administration. Almita Obando MD LAB CYTOLOGY ORDERABLES Final Result [facility] [address] [address] from Last 3 Months or Most Recently Relevant to Health Maintenance Insurance [facility] CHOICE PLUS ANTHEM ACCESS CHOICE ANTHEM ACCESS CHOICE Care Teams Post Framer Relationship Specialty Start Date End Date Angela Garza NP [address] [place] [address] PCP - General Cardiovascular Disease 12/09/23 Almita Smallwood MD [address] [place] [address] Internal Medicine 04/17/20 [place] [address] [address] [address] Surgeon General Surgery 04/07/22
--- OUTSIDE RECORDS SUMMARY | 2024-04-21 12:16 | XMS_ITS | Referral Summary ---
Author Organization [place] [id number] [facility] Address [address] [place] [address] Care Team Providers Care Folder Machine Name Role Phone Almita Smallwood MD Unavailable Yuri Rocha MD Unavailable Angela Garza NP Primary Care Provider Encounters Date Type Department Care Team Description 02/15/2024 Orders Only [facility] Oncology [address] [facility] [address] [place] [address] Snow Calabrese MD 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 breast; Breast neoplasm, Tis (LCIS), left; Family history of breast cancer 02/15/2024 Orders Only [facility] Oncology [address] [place] [address] Snow Calabrese MD Family history of breast cancer (Primary Dx); 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 breast; Breast neoplasm, Tis (LCIS), left from Last 3 Months Allergies No known active allergies Medications collagen, hydrolysate, bovine, (COLLAGEN, HYDR, BOVINE,, BULK, MISC) by Misc.(Non-Drug; Combo Route) route. Active levocetirizine (XYZAL) 5 [...] (04/06/2022): Added automatically from request for surgery [id number] Breast neoplasm, Tis (LCIS), left 08/06/2021 Breast [...] Date Diagnosed Date Resolved Date Smoking 08/06/2021 Immunizations Name Administration Dates Next Due Pfizer SARS-CoV-2 Monovalent Vaccination (12+ Yrs) PURPLE 01/30/2021,08/14/2020,07/23/2020 Social History Tobacco Use Types Packs/Day Years Used Date Smoking Tobacco: Former Cigarettes Q uit: 2004 Smokeless Tobacco: Never Tobacco Cessation:Counseling Given: Not [...] on file Legal Sex Female 3:38 AM TEST EXAMINER Gender Identity Not on file Sexual Orientation Not on file 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 Not on file Not on file Last Filed Vital Signs Vital Sign Reading Time Taken Comments Blood Pressure 141/79 01/11/2024 10:38 AM CDT Pulse 75 01/11/2024 10:38 AM CDT Temperature 37 ??C (98.6 ??F) 01/11/2024 10: 38 AM CDT Respiratory Rate 18 01/11/2024 10:3 8 AM CDT Oxygen Saturation 98% 01/11/2024 10: 38 AM CDT Inhaled Oxygen Concentration - - Weight 69.7 kg (153 lb 9.6 oz) 01/11/20 10:38 AM CDT with shoes Height 165.1 cm (5' 5 ) 04/07/2022 8:39 AM TEST EXAMINER Body Mass Index 25.56 04/07/2022 8:39 AM TEST EXAMINER Plan of Treatment Not on file Procedures Procedure Name Priority Date/Time Associated Diagnosis [...] HIGH RISK HPV Routine 04/16/2020 9:07 AM TEST EXAMINER from Last 3 Months or Most Recently Relevant to Health Maintenance Results * [facility] BRACAnalysis and MyRisk / Note 2 Tests (M0001) (02/15/2024 8:26 AM CDT) Bracanalysis and Myrisk / Note 2 Tests Significant Clinical History Finding 02/23/2024 4:04 PM TEST EXAMINER [facility] Comment: BRACANALYSIS AND MYRISK / NOTE 2 TESTS See PDF for complete results. CLINICAL HISTORY ANALYSIS: BASED ON THE CLINICAL HISTORY PROVIDED, MODIFIED MEDICAL MANAGEMENT GUIDELINES IDENTIFIED NO VARIANT(S) OF UNCERTAIN SIGNIFICANCE (VUS) IDENTIFIED Blood specimen (specimen) (Blood, Venous) 02/15/2024 8:26 AM CDT 02/16/2024 3:16 PM CDT Snow Calabrese MD LAB GENETIC TESTING Final R esult [facility] [address] [place] [address] * Screening Mammogram Bilateral W Chris (12/09/2023 [...] age 40, based on guidelines of the [employer] (ACR Practice Parameter for the Performance of Screening and Diagnostic Mammography) and [employer]. For women [...] finding in either breast on mammogram. ?? us Snow Calabrese MD IMG MAMMO PROCEDURES Final Result * Pap with reflex to High Risk HPV (04/16/2020 9:07 AM TEST EXAMINER) 04/16/2020 9:07 AM TEST EXAMINER 04/16/2020 9:07 AM TEST EXAMINER Narrative [facility] - 04/21/2020 10:13 AM TEST EXAMINER [facility] Department of Pathology [id number] [place] [id number] Final Report with Addendum Patient Name: ??ANITHA HERMOSILLO Address: ??[address],, ?? [place] [address] Gender: ??F : ??1960 (Age: 60) Service: ??Laboratory Location: ??Lab Hospital #: ??[id number] Patient Type: ??CH Ref Lab Taken: ??04/16/2020 Received: ??04/16/2020 Accessioned:: ??04/17/2020 Reported: ??04/21/2020 Physician(s): Almita Obando Diagnosis: Source of Specimen: ? Imaged Thinprep Pap Test plus HPV - Business Functional Analyst Cytologic Material Specimen Adequacy: ?- Specimen satisfactory [...] Imaged Thinprep Pap Test plus HPV - Business Functional Analyst Cytologic Material Clinical History: Last Menstrual Period: [...] determined by the Surgical Pathology Department at [facility] as part of an ongoing quality lead program and in compliance with federally mandated [...] characteristics determined by the Surgical Pathology Department [facility]. ??It has not been cleared or approved by the U. S. Food and Drug Administration. Almita Obando MD LAB CYTOLOGY ORDERABLES Final Result [facility] [address] [address] from Last 3 Months or Most Recently Relevant to Health Maintenance Insurance [facility] CHOICE PLUS ANTHEM ACCESS CHOICE [id number] ANTHEM ACCESS CHOICE Care Teams Folder Machine Relationship Specialty Start Date End Date Angela Garza NP [address] [place] [address] PCP - General Cardiovascular Disease 12/09/23 Almita Smallwood MD [address] [place] [address] Internal Medicine 04/17/20 [place] [address], [place] [address] Surgeon General Surgery 04/07/22
--- OUTSIDE RECORDS SUMMARY | 2024-04-21 12:16 | XMS_ITS | Encounter Summary ---
Author Organization [facility] Address [address] [facility] [place] [address] Care Team Providers Care Utility Tech Name Role Phone Almita Smallwood MD Primary Care Provider + Reason for Visit * Radiology Services (Routine) - Closed Specialty Diagnoses / Procedures Referred By Prashanthac t Referred To Contact MRI Diagnoses Nipple discharge Procedures MRI BREAST BILAT WWO CONTRAST Laverne Thorpe DO [address] [place] [phone] Referral ID Status Reason Start Date Expiration Date Visits Re quested Visits Authorized [id number] Closed 10/16/2018 11/16/2018 1 1 Encounter Details Date Type Department Care Team (Late st Contact Info) Description 10/16/2018 3:55 PM CDT - 10/16/2018 11:59 PM CDT Hospital Encounter [facility] MRI [address] [place] [address] Laverne Thorpe DO [address] [place] [phone] Discharge Disposition: Home or Self Care Social History Tobacco Use Types Packs/Day Years Used Date Smoking Tobacco: Never Assessed Sex and Gender Information Value Date Recorded Sex Assigned at Not on file Gender Identity Not on file Sexual Orientation Not on file documented as of this encounter Plan of Treatment Not on file documented as of this encounter Procedures Procedure Name Priority Date/Time Associated Diagnosis Comments MRI BREAST BILAT WWO CONTRAST Routine 10/16/2018 5:29 PM CDT Nipple discharge CREATININE BLOOD - POCT (IP) H Routine 10/16/2018 4:57 PM CDT Nipple discharge documented in this encounter Results * MRI BREAST BILAT WWO CONTRAST (10/16/2018 5:29 PM CDT) Anatomical Region Laterality Modality Breast Bilateral Magnetic Resonan ce 10/18/2018 10:5 0 AM CDT Impressions 10/18/2018 2:14 PM CDT IMPRESSION: Right breast: No MR evidence of malignancy. Left breast: Postsurgical changes of lumpectomy. No MR evidence of recurrence or residual disease. ASSESSMENT: BI-RADS Category 2: Benign finding(s). RECOMMENDATION: Clinical follow-up for nipple discharge. Bilateral mammogram is now due. This could be performed as a diagnostic mammogram with targeted ultrasound for the nipple discharge. I, Dr. RAPHAEL VALENZUELA M.D. have personally reviewed and interpreted this examination/study. This report was electronically signed by RAPHAEL VALENZUELA M.D. ??on 10/18/2018 2:14 PM . Narrative 10/18/2018 2:14 PM CDT BILATERAL BREAST MRI HISTORY: ??58-year-old female with history of lumpectomy of the left breast in 2017, presents for nipple discharge. Patient is status post benign right breast biopsy. COMPARISON: Comparison was made to previous MRI ??dated on 11/15/2016, and multiple prior mammograms, most recently dated on 06/21/2018 and 10/21/2017. TECHNIQUE: Multiplanar multisequence MR imaging of both breasts before and following the administration of 7 cc of Gadavist. Dynamic phase imaging was performed in the axial plane. Exam was processed by and interpreted on a [employer] food server including 3-D volume rendering, subtraction image processing and contrast kinetic analysis. FINDINGS: Background tissue pattern: Heterogenous dense fibroglandular tissue. Degree of background parenchymal enhancement: mild symmetric. RIGHT BREAST: There is no suspicious mass or area of abnormal enhancement in the right breast. There is no abnormality of the right axilla, chest wall, or nipple areolar complex. LEFT BREAST: Postlumpectomy changes in the left upper outer quadrant are identified. There is no suspicious mass or area of abnormal enhancement in the left breast. There is no abnormality of the left axilla, chest wall, or nipple areolar complex. EXTRAMAMMARY FINDINGS: None Laverne Thorpe DO MR ORDERABLES * CREATININE BLOOD - POCT (IP) [facility] (10/16/2018 4:57 PM CDT) Creatinine POCT 0.8 0.3 - 1.3 mg/dL [facility] POCT TESTING eGFR POCT 60 60 ml/min [facility] POCT TESTING Blood BLOOD SPECIMEN / Unknown 10/16/2018 4:57 PM CDT Laverne Thorpe DO LAB - POINT OF CARE ORDERABLES Performing Organization Address City/State/[facility] Co de Phone Number [facility] POCT TESTING [address] [phone] documented in this encounter Visit Diagnoses Diagnosis Nipple discharge Other sign and symptom in breast documented in this encounter Administered Medications Inactive Administered Medications - up to 3 most recent administrations Medication Order MAR Action Action Date Dose Rate Site gadobutrol (GADAVIST) injection Intravenous, CONTRAST ONCE, Starting on Tue10/16/18 at 1656, Until Tue10/17/18 at 0146 $ Given - Contrast 10/16/2018 5:29 PM CDT 6 mL documented in this encounter Care Teams Utility Tech Relationship Specialty Start Date End Date Almita Smallwood MD [address] [place] [address] PCP - General Internal Medicine 10/16/18 documented as of this encounter
--- OUTSIDE RECORDS SUMMARY | 2024-04-21 12:16 | XMS_ITS | Encounter Summary ---
Author Organization [facility] Address [address] [place] [address] Phone Care Team Providers Care Billet Heater Name Role Phone Almita Smallwood MD Unavailable Yuri Rocha MD Unavailable Angela Garza NP Primary Care Provider [phone] Encounter Details Date Type Department Care Team (Late st Contact Info) Description 02/15/2024 Orders Only [facility] Physicians [facility] Oncology [address] [facility] [address] [place] [address] Snow Calabrese MD [address] [place] [address] Family history of breast cancer (Primary Dx); 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 breast; Breast neoplasm, Tis (LCIS), left Social History Tobacco Use Types Packs/Day Years Used Date Smoking Tobacco: Former Cigarettes Q uit: 2004 Smokeless Tobacco: Never Alcohol Use Standard Drinks/Week Comments Yes 0 [...] on file Legal Sex Female 3:38 AM BREASTFEEDING PROGRAM 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 Gender Identity Not on file Sexual Orientation Not on file 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
--- OUTSIDE RECORDS SUMMARY | 2024-04-21 12:16 | XMS_ITS | Encounter Summary ---
Author Organization [facility] Address [address] [place] [address] Care Team Providers Care Supervisor Green End Department Name Role Phone Unavailable Primary Care Provider Unavailabl e Encounter Details Date Type Department Care Team (Latest Contact Info) Description 11/05/2016 Hospital Outpatient Visit [facility] OUTPATIENT SERVICES [address] [place] [phone] ProviderCande MD Discharge Disposition: Home or Self Care Social History Tobacco Use Types Packs/Day Years Used Date Smoking Tobacco: Never Assessed Sex and Gender Information Value Date Recorded Sex Assigned at Not on file Gender Identity Not on file Sexual Orientation Not on file documented as of this encounter Plan of Treatment Not on file documented as of this encounter Visit Diagnoses Not on filedocumented in this encounter
--- OUTSIDE RECORDS SUMMARY | 2024-04-21 12:16 | XMS_ITS | Patient Health Summary ---
Author Organization [facility] Address [address] [facility] [place] [address] Care Team Providers Care Receptionist Nurse Name Role Phone Almita Smallwood MD Primary Care Provider + Note from [facility],non-owned Affiliates and Associated Physician Practices is amultiple site organization consisting of ambulatory clinics and hospital sitesin [place], [place], [place] and [place]. This disclosure is being madepursuant to the Care Everywhere program and may not contain all information available regarding this patient. Last updated 18.[facility] Social History Tobacco Use Types Packs/Day Years Used Date Smoking Tobacco: Never Assessed Sex and Gender Information Value Date Recorded Sex Assigned at Not on file Gender Identity Not on file Sexual Orientation Not on file Procedures * PATHOLOGY TISSUE(Performed 11/07/2018) * MRI BREAST BILAT WWO CONTRAST(Performed 10/16/2018) Performed for Nipple discharge * CREATININE BLOOD - POCT (IP) [facility](Performed 10/16/2018) Performed for Nipple discharge * MAMMO LEFT DIAGNOSTIC(Performed 05/26/2017) * MRI BREAST BILAT WWO CONTRAST(Performed 11/05/2016) * CREATININE BLOOD - POCT (IP) [facility](Performed 11/05/2016) Results * PATHOLOGY TISSUE (11/07/2018 8:00 AM CDT) Case Report Surgical Pathology Report ? Case: [id number] ? Authorizing Provider: ??Jorge Luis Tompkins MD ?Collected: ? 11/07/2018 08:00 AM ? Pathologist: ? Linda Ring MD ?? Received: ?11/09/2018 10:42 AM ? Specimen: ?Lymph Node Biopsy, [id number] ? 11/10/2018 4:54 PM [facility] Final Diagnosis Lymph node, right axilla, excisional biopsy: - Benign lymph node. - No evidence of malignancy. - See description. 11/10/2018 4:54 PM [facility] Microscopic Description and Comment Review of the lymph node sections demonstrates well-defined viet architecture with an intact capsule and patent sinuses. Focal sinus histiocytosis is identified. There are small nodules in the peripheral cortex of the node suggestive of primary follicles with only very rare secondary follicles with germinal centers identified. No extrinsic cell populations are identified. No necrosis is seen. To further define the immunoarchitecture and to assess for metastatic carcinoma given the patient's history of ductal carcinoma in situ, immunohistochemistry is performed on block A2 in the [facility] Department of Pathology with appropriately reactive controls. PAX-5 shows B-cells appropriately located in the cortex. CD3, CD5, and CD43 highlight paracortical T-cells with no co-expression in the B-cells. CD10 and BCL-6 highlight a small germinal center that is appropriately negative for BCL-2. The B-cells in the primary follicles are appropriately positive for BCL-2. CD21 highlights normal follicular dendritic cell meshworks in the viet cortex in association with the primary follicles. Cyclin D1 is negative in the lymphocytes. Pancytokeratin is negative for metastatic carcinoma. In summary, the right axillary lymph node excisional biopsy is benign with normal primary follicles, rare germinal centers, and appropriately intact paracortex. Focal sinus histiocytosis is present. There is no evidence of lymphoma or other malignant infiltrate in the node. The report from [facility] describing an atypical lymphoid proliferation on needle core biopsy most likely represents sampling of primary follicles rather than a lymphoproliferative disorder; however, those slides are not provided for review in conjunction with this case. Clinical correlation is advised. KR 11/10/2018 4:54 PM T [facility] Clinical History 58 year old woman presents with right axillary lymphadenopathy. History of ductal carcinoma in situ. 11/10/2018 4:54 PM T [facility] Materials Received Received are 2 slides and 2 blocks labeled as [id number] along with the outside pathology report. [place] [address]. All materials are returned to the referring institution, along with a copy of our final report. 11/10/2018 4:54 PM [facility] Disclaimer The performance characteristics of all immunohistochemical and indirect immunofluorescence stains (if any) cited in this report were determined by the Histopathology Laboratory of [facility]. Some of these tests were developed by our own laboratory and have not been cleared or approved by the US Food and Drug Administration. The FDA does not require this test to go through premarket FDA review. These tests are used for clinical purposes. They should not be regarded as investigational or for research. This laboratory is certified under the Clinical Laboratory Improvement Amendments (CLIA) as qualified to perform high complexity clinical laboratory testing. This case has been personally reviewed and interpreted by the attending (teaching) pathologist. The [facility] of this [facility], [address] [place] [id number]. 11/10/2018 4:54 PM T [facility] LAB Embedded Images 11/10/2018 4:54 PM CDT [facility] LAB Pathology/Cytolo gy BIOPSY OF LYMPH NODE / Unknown 11/07/2018 8:00 AM CDT 11/09/2018 10:42 AM CDT Jorge Luis Tompkins MD LAB - PATHOLOGY/CYTO LOGY ORDERABLES [facility] [address] [place] [address], [facility] [phone] * MRI BREAST BILAT WWO CONTRAST (10/16/2018 5:29 PM CDT) Only the most recent of2 resultswithin the time period is included. Anatomical Region Laterality Modality Breast Bilateral Magnetic [...] was processed by and interpreted on a [employer] seismic prospecting observer helper including 3-D volume rendering, subtraction image processing [...] nipple areolar complex. EXTRAMAMMARY FINDINGS: None Laverne Melendezkrystalshimon OBANDO MR ORDERABLES * CREATININE BLOOD - POCT (IP) [facility] (10/16/2018 4:57 PM CDT) Only the most recent of2 resultswithin the time period is included. Creatinine POCT 0.8 0.3 - 1.3 mg/dL [facility] POCT TESTING eGFR POCT 60 60 ml/min [facility] POCT TESTING Blood BLOOD SPECIMEN / Unknown 10/16/2018 4:57 PM CDT Laverne Thorpe DO LAB - POINT OF CARE ORDERABLES Performing Organization Address City/State/[facility] Co de Phone Number [facility] POCT TESTING [address] [phone] * MAMMO LEFT DIAGNOSTIC (05/26/2017 2:54 PM AIRPLANE FIRST OFFICER) Anatomical Region Laterality Modality Left Other Impressions 05/26/2017 3:[address] AIRPLANE FIRST OFFICER IMPRESSION: No evidence of malignancy in the left breast. ASSESSMENT: BI-RADS Category 2: Benign finding(s). RECOMMENDATION: Bilateral diagnostic mammogram in September 2017. Findings discussed with the patient by Dr. Cantu. I, Dr. KELLEN MANTILLA M.D. have personally reviewed and interpreted this examination/study. This report was electronically signed by KELLEN MANTILLA M.D. ??on 05/26/2017 3:13 PM . Narrative 05/26/2017 3:13 PM AIRPLANE FIRST OFFICER LEFT DIAGNOSTIC MAMMOGRAM TECHNIQUE: Images were performed using 3D tomosynthesis images with reconstructed/synthetic 2D images. ??CAD analysis was performed. DATE: 05/26/2017. HISTORY: 57-year-old female with recent history of lumpectomy in the left breast in 2017, here for first postoperative follow-up. COMPARISON: Prior mammograms dated 09/21/2016, 10/05/2016, and 10/27/2016, as well as a recent MR breast dated 11/05/2016. BREAST COMPOSITION: The breasts are heterogeneously dense, which may obscure small masses. FINDINGS: Since 10/27/2016, there has been interval postsurgical changes in the left breast. Multiple small circumscribed masses are mammographically stable since September 2016 and were consistent with simple and hemorrhagic/proteinaceous cysts on the comparison MRI. No new suspicious mass or microcalcifications is seen. Procedure Note Louisa Mantilla MD - 07/20/2017 LEFT DIAGNOSTIC MAMMOGRAM TECHNIQUE: Images were performed using 3D tomosynthesis images withreconstructed/synthetic 2D images. CAD analysis was performed. DATE: 05/26/2017. HISTORY: 57-year-old female with recent history of lumpectomy in the leftbreast in 2017, here for first postoperative follow-up. COMPARISON: Prior mammograms dated 09/21/2016, 10/05/2016, and 10/27/2016, aswell as a recent MR breast dated 11/05/2016. BREAST COMPOSITION: The breasts are heterogeneously dense, which mayobscure small masses. FINDINGS: Since 10/27/2016, there has been interval postsurgical changes in the leftbreast. Multiple small circumscribed masses are mammographically stablesince September 2016 and were consistent with simple andhemorrhagic/proteinaceous cysts on the comparison MRI. No new suspicious mass or microcalcifications is seen. IMPRESSION IMPRESSION: No evidence of malignancy in the left breast. ASSESSMENT: BI-RADS Category 2: Benign finding(s). RECOMMENDATION: Bilateral diagnostic mammogram in September 2017. Findings discussed with the patient by Dr. Cantu. I, Dr. KELLEN MANTILLA M.D. have personally reviewed and interpreted thisexamination/study. This report was electronically signed by KELLEN MANTILLA M.D. on05/26/2017 3:13 PM . Historical Provider MAMMO ORDERABLES Care Teams Receptionist Nurse Relationship Specialty Start Date End Date Almita Smallwood MD [address] [place] [address] PCP - General Internal Medicine 10/16/18
--- OUTSIDE RECORDS SUMMARY | 2024-04-21 12:16 | XMS_ITS | Encounter Summary ---
Author Organization [facility] Address [address] [place] [address] Phone Care Team Providers Care Calcine Furnace Tender Name Role Phone Almita Smallwood MD Primary Care Provider + Almita Smallwood MD Unavailable [phone] Yuri Rocha MD Unavailable [phone] Reason for Referral * Diagnostic Imaging (Routine) - Closed Specialty Diagnoses / Procedures Referred By Tati campos Referred To Contact Diagnoses Encounter for screening mammogram for breast cancer Procedures Screening Mammogram Bilateral W Chris Snow Calabrese MD [address] [place] [address] Phone: tel: fax: [address] [address] Referral ID Status Reason Start Date Expiration Date Visits Re quested Visits Authorized [id number] Closed 11/04/2022 12/04/2023 1 1 * MRI/CAT/PET Scan (Routine) - Closed Specialty Diagnoses / Procedures Referred By Tati campos Referred To Contact Radiology Diagnoses Dense breast tissue on mammogram Breast cancer screening, high risk patient Family history of breast cancer Procedures MRI Breast Bilateral W WO Contrast Snow Calabrese MD [address] [place] [address] Phone: tel: fax: [facility] [address] [place] [address] Referral ID Status Reason Start Date Expiration Date Visits Re quested Visits Authorized [id number] Closed 11/04/2022 12/04/2023 1 1 Encounter Details Date Type Department Care Team (Late st Contact Info) Description 11/04/2022 Orders Only [facility] Oncology [address] [place] [address] Estephania Clement, MARYAM Dense breast tissue on mammogram (Primary Dx); Breast cancer screening, high risk patient; Family history of breast cancer; Encounter for screening mammogram for breast cancer Social History Tobacco Use Types Packs/Day Years [...] staff should administer the PHQ-9) 0 04/16/2020 Comments No Sex and Gender Information Value Date Recorded Sex Assigned at Not on file Legal Sex Female 3:38 AM CREDIT NEGOTIATOR Gender Identity Not on file Sexual Orientation Not on file 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 For women with and elevated risk of breast cancer, please refer to the ACR Practice Parameter for specific screening recommendations. The patient will be entered into a reminder system with a target due date of 1 year for her next screening exam. Narrative 12/09/2023 8:11 AM CDT Screening Mammogram Bilateral W Chirs: 12/09/23 The study was acquired using full [...] MD IMG MAMMO PROCEDURES Final Result * MRI Breast Bilateral W WO Contrast (02/18/2023 10:38 AM CDT) Anatomical Region Laterality Modality Breast Bilateral Magnetic Resonan ce 02/18/2023 10:5 1 AM CDT Impressions 02/18/2023 11:24 AM CDT No MRI evidence of malignancy. Given the patient's elevated estimated lifetime risk of breast cancer, both annual screening mammography and annual screening breast MRI are recommended. BIRADS: 2 - Benign THIS IS AN ELECTRONICALLY VERIFIED FINAL REPORT 02/18/2023 11:24 AM - Electronically signed by ??Juacnarlos Ballesteros M.D., MD: D: ??02/18/2023 11:24 AM T: ??02/18/2023 11:24 AM Report ID: [id number] Reading Location: ??[facility] Narrative 02/18/2023 11:24 AM CDT EXAM DESCRIPTION: ?? MRI BREAST BILATERAL W WO CONTRAST REASON FOR STUDY: 63-year-old postmenopausal female with elevated estimated lifetime risk of breast cancer (25%). ??High risk screening breast MRI. ?? History of left breast ductal carcinoma in-situ status post breast conservation therapy in 2017. COMPARISON: MRI breast from 12/17/2021. ??Mammograms from 06/29/2022, 06/25/2021, and 02/21/2020. TECHNIQUE: Multiplanar and multisequence MRI of both breasts was performed before and after the uneventful intravenous administration of ??15 ??mL of ?? Dotarem ??in a ??right antecubital ??IV catheter according to standard breast imaging protocol on a dedicated breast coil. The images were reviewed on the work station and underwent CAD analysis. FINDINGS: BACKGROUND ENHANCEMENT: ??Minimal . FIBROGLANDULAR TISSUE: ??Heterogeneous fibroglandular tissue . RIGHT BREAST: ??There is a focus of susceptibility artifact corresponding with a biopsy marking clip in the central upper right breast, middle depth. There is a stable benign 5 mm intramammary lymph node in the upper outer right breast, posterior depth (series 6, image 50). There are no suspicious masses. There is no suspicious non-mass enhancement. There is no abnormal skin, nipple, or pectoralis muscle enhancement. There is no right axillary or internal mammary lymphadenopathy. LEFT BREAST: There are postoperative findings with surgical clips in the upper outer left breast, posterior depth. There is also a focus of susceptibility artifact corresponding with a biopsy marking clip in the central left breast, middle depth. ??There are no suspicious masses. There is no suspicious non-mass enhancement. There is no abnormal skin, nipple, or pectoralis muscle enhancement. There is no left axillary or internal mammary lymphadenopathy. The visualized portions of the mediastinum and upper abdomen are unremarkable in appearance on limited evaluation. us Snow Calabrese MD IMG MRI PROCEDURES Final Re sult documented in this encounter Visit Diagnoses Diagnosis Dense breast tissue on mammogram- Primary Breast cancer screening, high risk patient Screening mammogram for high-risk patient Family history of breast cancer Family history of malignant neoplasm of breast Encounter for screening mammogram for breast cancer Dense breast tissue on mammogram Breast cancer screening, high risk patient Screening mammogram for high-risk patient Family history of breast cancer Family history of malignant neoplasm of breast Encounter for screening mammogram for breast cancer documented in this encounter Care Teams Calcine Furnace Tender Relationship Specialty Start Date End Date Almita Smallwood MD [address] [place] [address] PCP - General 04/17/20 02/14/23 Almita Smallwood MD [address] [place] [address] Internal Medicine 04/17/20 [place] [address] [facility] [address], [place] [address] Surgeon General Surgery 04/07/22 documented as of this encounter
--- OUTSIDE RECORDS SUMMARY | 2024-04-21 12:16 | XMS_ITS | Encounter Summary ---
Author Organization [facility] Address [address] [place] [address] Care Team Providers Care Family Medicine Resident Name Role Phone Unavailable Primary Care Provider Unavailabl e Encounter Details Date Type Department Care Team (Latest Contact Info) Description 05/26/2017 Hospital Outpatient Visit [facility] [address] [place] [address] Discharge Disposition: Home or Self Care Social [...] Procedure Name Priority Date/Time Associated Diagnosis Comments MAMMO LEFT DIAGNOSTIC Routine 05/26/2017 2:54 PM LAST GREASER documented in this encounter Results * MAMMO LEFT DIAGNOSTIC (05/26/2017 2:54 PM LAST GREASER) Anatomical Region Laterality Modality Left Other Impressions 05/26/2017 3:13 PM LAST GREASER IMPRESSION: No evidence of malignancy in the left breast. ASSESSMENT: BI-RADS Category 2: Benign finding(s). RECOMMENDATION: Bilateral diagnostic mammogram in September 2017. Findings discussed with the patient by Dr. Cantu. I, Dr. KELLEN MANTILLA M.D. have personally reviewed and interpreted this examination/study. This report was electronically signed by KELLEN MANTILLA M.D. ??on 05/26/2017 3:13 PM . Narrative 05/26/2017 3:13 PM LAST GREASER LEFT DIAGNOSTIC MAMMOGRAM TECHNIQUE: Images were performed [...] 3:13 PM . Historical Provider MAMMO ORDERABLES documented in this encounter Visit Diagnoses Diagnosis Malignant neoplasm of female breast (HCC) documented in this encounter
--- OUTSIDE RECORDS SUMMARY | 2024-04-21 12:16 | XMS_ITS | Encounter Summary ---
Author Organization [facility] Address [address] [place] [address] Phone Care Team Providers Care Pigment Mixer Name Role Phone Almita Smallwood MD Unavailable [phone] Yuri Rocha MD Unavailable [phone] Angela Garza NP Primary Care Provider Reason for Referral * MRI/CAT/PET Scan (Routine) - Pending Review Specialty Diagnoses / Procedures Referred By Tati t Referred To Contact Radiology Diagnoses 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 breast Breast neoplasm, Tis (LCIS), left Heterogeneously dense tissue of both breasts on mammography Breast cancer screening, high risk patient Family history of breast cancer Procedures MRI Breast Bilateral W WO Contrast Snow Calabrese MD [address] [place] [address] Phone: tel: fax: [address] [address] Referral ID Status Reason Start Date Expiration Date V isits Requested Visits Authorized [id number] Pending Review 01/11/2024 02/09/2025 1 1 * Diagnostic Imaging (Routine) - Authorized Specialty Diagnoses / Procedures Referred By Contosmin t Referred To Contact Diagnoses Breast cancer screening by mammogram Encounter for screening mammogram for breast cancer Procedures Screening Mammogram Bilateral W Chris Snow Calabreseth, MD [address] [place] [address] Phone: tel: fax: [facility] [address] [place] [address] Referral ID Status Reason Start Date Expiration Date V isits Requested Visits Authorized [id number] Authorized 01/11/2024 02/09/2025 1 1 Reason for Visit * Reason Comments Follow-up Encounter Details Date Type Department Care Team (Late st Contact Info) Description 01/11/2024 10:40 AM CDT Office Visit [facility] [address] [facility] [address] [place] [address] Snow Calabrese MD [address] [place] [address] Breast cancer screening by mammogram (Primary Dx); 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 breast; Breast neoplasm, Tis (LCIS), left; Encounter for follow-up surveillance of breast cancer; Heterogeneously dense tissue of both breasts on mammography; Breast cancer screening, high risk patient; Encounter for screening mammogram for breast cancer; Family history of breast cancer; Inconclusive mammogram due to dense breasts; Encounter for monitoring tamoxifen therapy Social History Tobacco Use Types Packs/Day Years [...] on file 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 Chief complaint: DCIS TREATMENT HISTORY 10/27/16 left breast stereotactic biopsy showed DCIS, G1 Left partial mastectomy 11/22/16 No XRT due to low Oncotype DCIS (score [address] Thorpe's 11/14/18 note) Tamoxifen started January 2017 and self-discontinued July 2019 although she admitted to Dr. Thorpe that she often forgot doses (2 1/2 years but with non- ideal adherence to therapy) Right axillary node excisional biopsy 11/06/18, benign Tamoxifen restarted Feb 2020 and self-discontinued Jan 2021 (an additional 1 year) Tamoxifen resumption 08/06/21 and self-discontinued Apr 2022 (about 4 years total endocrine therapy). Per her oncology consultation at [facility] 02/22/[address] Cain, she was treated in at [facility] in 2017 (partial mastectomy 11/22/16) for DCIS (G2 DCIS with focal LCIS per Dr. Laura's 03/22/19 note, although the 12/21/18 and other notes states the DCIS was G1) and focal LCIS. No radiation per the 12/21/18 note due to low Oncotype score. She was followed by her oncologist there, Dr. Laura, who started her on tamoxifen in January 2017. She independently stopped taking it in July 2019. He notesshe took it for about 2 1/2 years. She was again started on tamoxifen 02/22/20 after establishing care with Dr. Cain at [facility]. She stopped HRT at the time of her diagnosis. She was on paroxetine which was changed to venlafaxine when she started tamoxifen. She tolerated tamoxifen well without any real side effects. She stopped it when she was being worked up for a thickened endometrium. Moved this past year and given everything going on, tamoxifen fell by the wayside. Has a bunch at home. No real side effects. No vaginal bleeding. Due to see teradata architect. Colonoscopy for BRBPR March 2022. Normal. 5 year follow-up recommended. Doing Crossfit. When I saw her last year she reported weight gain and worsening of sciatic pain. Lost 30# and sciatica improved. Overall in good spirits. She did start a part-time job working at the [employer]. 01/11/24: Jaw surgery. Saw derm this morning. Job with [employer] in [facility]. Didn't resume tamoxifen.Her sister was diagnosed with uterine cancer this past year and from sepsis. Risk assessment data: Lisa Hermosillo has been 3 time(s) and she has 2 living children. She delivered her first child at age - . Menarche: 15. Menopause status: postmenopausal. LMP 2014 (age 55) She has not undergone a hysterectomy or oophorectomy. HRT use: Used 1-2 years until DCIS diagnosis Contraception (if premenopausal): N/A Past medical history: Patient Active Problem List Diagnosis 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 breast Asthma, chronic, mild persistent, uncomplicated Centrilobular emphysema (HCC) Multiple idiopathic cysts of lung Personal history of tobacco use Osteoporosis screening Breast neoplasm, Tis (LCIS), left Breast cancer screening, high risk patient Dense breast tissue on mammogram Encounter for screening mammogram for breast cancer Encounter for follow-up surveillance of breast cancer Prophylactic use of tamoxifen Encounter for monitoring tamoxifen therapy Sebaceous cyst Inconclusive mammogram due to dense breasts Family history of breast cancer Past Medical History: Diagnosis Date Asthma, chronic, mild persistent, uncomplicated Breast cancer (HCC) 11/2016 no chemo/radiation Centrilobular emphysema (HCC) 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 breast Sciatica of left side Sebaceous cyst 03/2022 Smoking Past surgical history: Past Surgical History: Procedure Laterality Date BREAST BIOPSY Right 10/17/2018 benign axillary node BREAST BIOPSY Left 10/27/2016 DCIS BREAST BIOPSY Right ? benign needle bx DILATION AND CURETTAGE OF UTERUS 06/11/2021 benign ENDOMETRIAL BIOPSY 06/27/2020 benign MANDIBLE SURGERY Bilateral 08/2023 reset MASTECTOMY, PARTIAL Left 11/22/2016 For Stage 0 breast CA at [facility] in [place], [place]. No chemorx or XRT, only Tamoxifen. TUBAL LIGATION Social history: Social History Tobacco Use Smoking status: Former Smoker Quit date: 2004 Years since quittin.3 Smokeless tobacco: Never Used Substance Use Topics Alcohol use: Yes Comment: rarely Allergies: No Known Allergies Medications: Current Outpatient Medications: cholecalciferol, daily collagen, hydrolysate, bovine, (COLLAGEN, HYDR, BOVINE,, BULK, MISC), by Misc.(Non-Drug; Combo Route) route. ibuprofen, 600 mg, oral, Q6H PRN montelukast, 10 mg, oral, Nightly multivitamin, 2 Gum, oral, QAM sodium chloride, 2 spray, nasal, Q2H PRN aspirin, 81 mg, oral, Daily (Patient not taking: Reported on 01/11/2024) cyclobenzaprine, 5-10 mg, oral, BID PRN (Patient not taking: Reported on 01/11/2024) HYDROcodone-acetaminophen, 1 tablet, oral, Q4H PRN (Patient not taking: Reported on 01/11/2024) levocetirizine, 5 mg, oral, Nightly (Patient not taking: Reported on 01/11/2024) tamoxifen, 20 mg, oral, Daily (Patient not taking: Reported on 01/11/2024) tiZANidine, 2 mg, oral, Q8H (Patient not taking: Reported on 01/11/2024) Family history of cancer: Children: Yon is 40 and Celine is 38 Mother: colorectal cancer, diagnosed at 59 . at age 61 due to cancer. Father: leukemia/lymphoma diagnosed at ? . Vital status not discussed or unknown. Sister(s): 1. Arti 2. Cara 3. Kallie--CRC at 54, now alive at 65 4. Radha 5. Courtney--, no cancer 6. Vicky-- from sepsis; had diagnosis of uterine cancer in . Age almost 70. 7. Morena 8. Pat Brother(s): 1. Rafael 2. Easton-- due to heart disease Her mother was one of 5 kids total. No real health info. No cancer in MGM or MGF. Maternal ethnicity: Possible remote AJ Her father was one of 6 children. His sister had breast cancer at 85. No cancer in PGM or PGF. Scanned pedigree 08/06/21 Review of systems: Review of Systems Musculoskeletal: Positive for back pain. Sciatica worse with weight gain Exam Vitals: 01/11/24 1038 BP: 141/79 BP Location: Left arm Pulse: 75 Resp: 18 Temp: 37 ??C (98.6 ??F) TempSrc: Oral SpO2: 98% Weight: 69.7 kg (153 lb 9.6 oz) Body mass index is 25.56 kg/m??. Physical Exam Constitutional: Appearance: She is well-developed. HENT: Head: Normocephalic and atraumatic. Eyes: General: No scleral icterus. Conjunctiva/sclera: Conjunctivae normal. Neck: Thyroid: No thyromegaly. Cardiovascular: Rate and Rhythm: Normal rate. Pulmonary: Effort: Pulmonary effort is normal. No respiratory distress. Breath sounds: Normal breath sounds. No stridor. Chest: Breasts: Breasts are symmetrical. Right: No inverted nipple, mass, nipple discharge, skin change or tenderness. Left: No inverted nipple, mass, nipple discharge, skin change or tenderness. Comments: Almost imperceptible right axillary and left breast incisions Abdominal: Palpations: Abdomen is soft. Tenderness: There is no guarding. Musculoskeletal: General: No deformity. Normal range of motion. Cervical back: Normal range of motion and neck supple. Lymphadenopathy: Cervical: No cervical adenopathy. Upper Body: Right upper body: No supraclavicular or axillary adenopathy. Left upper body: No supraclavicular or axillary adenopathy. Skin: General: Skin is warm and dry. Findings: No erythema or rash. Neurological: Mental Status: She is alert and oriented to person, place, and time. Psychiatric: Behavior: Behavior normal. Thought Content: Thought content normal. Judgment: Judgment normal. Imaging/data review: Breast imaging breast MRI 11/05/16 at [facility]. BI-RADS 6. Minimal enhancement around her left biopsy clip. left diagnostic mammogram 05/26/17 at [facility]. BI-RADS 2. This was her first post- BCT mammogram. breast MRI 10/16/18 at [facility]. BI-RADS 2. Per the report, she was having clear nipple discharge. bilateral screening mammography 02/21/20. BI-RADS 2. Heterogeneously dense. [facility] BI-RADS 2. Heterogeneously dense. Breast MRI 12/17/21, BI-RADS 2. Bilateral screening mammography 06/29/22, BI-RADS 2. Heterogeneously dense. Breast MRI 02/18/23, BI-RADS 2. Bilateral screening mammography 12/09/23, BI-RADS 2. Heterogeneously dense. Other imaging reports and data reviewed: I reviewed multiple notes in Care Everywhere back to 2016. Dr. Thorpe's 11/14/18 note summarized the treatment history and pathology; other data from oncology notes back to [address] Laura and as recently as 02/22/[address] Cain 01/2011 left US-guided biopsy, UDH, duct ectasia 10/27/16 left breast stereotactic biopsy showed DCIS, G1 11/22/16 Left partial mastectomy showed DCIS, G1, 12 mm v 2 mm (both reported on oncology notes), ER/WA strongly positive, Oncotype DCIS 0; a note from 03/08/17 reported a 2 mm focus of DCIS, micropapillary type 06/08/17 right US-guided biopsy showed fragments of cyst wall, focal fibrosis, sclerosing adenosis, focal CCC, benign hyperplasia 10/17/18 right axillary node excisional biopsy, benign Estradiol 01/07/17 c/w premenopausal status (104.8) although FSH c/w postmenopausal 11/07/18 right axillary excisional biopsy, benign node records/office visit notes from Dr. Obando . Endometrial biopsy 06/27/20, benign D&C 06/11/21 showed focal squamous metaplasia, inactive endometrium CMP 10/15/21 showing an AST 54, ALT 64, eGFR 57 LFTs 01/20/22 WNL PCP notes in Care Everywhere Office notes from Dr. Buckley, Dr. Rocha (general surgery) Assessment/Plan: Left DCIS, G1, ER/WA strongly positive Tamoxifen AUB with benign D&C We reviewed guidelines recommending 5 years of endocrine therapy (she's taken tamoxifen about 4 years total). We previously reviewed short-term data looking at 5 mg taken for 3 years, although we don't have long-term data, nor have the 2 regimens been compared with each other. We previously discussed raloxifene (less effective and less durable risk reduction although no impact on the uterus) and AIs (which can accelerate bone loss and cause arthralgias). She already deals with sciatic pain and she would not be interested in AIs. The risk reduction with tamoxifen is durable, and she has already received some risk reduction. Given that she was having no side effects and had a supply at home, she was agreeable in 2022 to resuming this. She ultimately did not but did get about 4 years of endocrine therapy in total. She will have received some level of benefit/risk reduction. She will continue annual mammography. We will follow up with surgery PRN. Elevated lifetime breast cancer risk We recommend annual breast MRI for women whose lifetime risk is > 20% , so she is eligible. Given Her LCIS and family history, I would estimate 1%/year so about 25% remaining lifetime risk. In addition, she has dense tissue and by ACR guidelines for that reason alone is eligible for supplementalscreening. Family history of breast and colon cancer At risk for hereditary cancer; candidate for genetic testing Meets the following criteria for testing: She specifically meets Soto syndrome genetic testing guidelines as she has 3 first-degree relatives with Soto syndrome-related cancers regardless of age. We very briefly talked about this during her visit and I emailed her the following summary: Most cancers (90%) are NOT caused by likely pathogenic/pathogenic variants. There are many different genes that contribute to the development of the other 10% of cancers. We don't have screening or management guidelines for some of the genes we test for. We discussed the option of testing for a limited number of genes or a broader panel, and discussed pros/cons of each. When a LP/P variant is identified, all family members at risk should be notified and given a copy of the results so they, too, can pursue testing. When possible, we test a family member who has cancer. If a LP/P variant is identified in a family,those who test negative do not have the gene-associated increased risk. A negative result in someone unaffected by cancer is uninformative if there is not yet an identified LP/P variant in the family. Testing may show a Variant of Uncertain Significance (VUS). Over time, VUSs may be reclassified as pathogenic or as benign (most as benign). A VUS has NO impact on treatment or screening. We typically do not test family members for a VUS. Testing may have surprising results. For instance, it's possible we find a cancer risk gene we weren't expecting. Cancer risk is NOT 100% with any of these genes, and in fact may not be significantly higher than the risk is for most people. Depending on test results, I may want another ozsz-yb-dpru conversation with the patient. I may also ask them to meet with a genetic counselor or other providers. Test results become part of the medical record. They cannot be used to discriminate for health insurance or employment purposes (employers > 15 employees). However, ERIN (The Genetic Information Nondisclosure Act) does not include protection from discrimination for life, disability, or long-termcare insurance or for the . When criteria are met, testing is usually covered by insurance. If not, the lwl-aa-ytekvz depends on the lab policy, insurance deductible, etc. Most patients pay $100 or less. For patients with high expected qrg-zz-wwrjsc cost, a $250 kent option is available with most labs. It is important to respond to company communications within the required time frame to prevent higher iix-lx-dkzbti costs. [employer] contacts patients with any expected fzh-mr-dqmbac cost and obtains patient permission prior to proceeding with testing. [employer] invites patients, via text, to an smq-hm-cuphdn cost calculator, and I encourage all patients to utilize the calculator. If she has any questions or interest in pursuing testing, I asked her to reach out. She is UTD on colonoscopy and had one in March 2022. A 5 year follow-up was recommended. Maybe polyps on prior endoscopies. Summary Last appt 01/11/24 Return to clinic: in one year Last mammogram 12/09/23 Mammogram due Nov 2024 (bilateral screening) Last MRI 02/18/23 MRI due Feb 2024 I encouraged Lisa San , who seems happy with this plan, to contact me with any questions or concerns, and all questions were answered to the best of my ability. My total encounter time on 01/11/24 was 20 minutes which was spent in the activities documented in the note. This includes time spent prior to the visit and after the visit in direct care of the patient. This time does not include time spent in any separately reportable services. Snow Calabrese MD, FACS Medical [facility] Addendum Mena reached out after confirming that her sister had ovarian cancer, not uterine cancer. She is therefore eligible for genetic testing for HBOC. She is similarly still eligible for Soto syndrome based testing given that ovarian cancer is a component of Soto syndrome. Addendum Genetic testing, specifically [employer] panel, revealed no mutations/variants. I notified her of results via [employer] and will mail a copy to her with a summary letter, available in her chart. GRINDER documented in this encounter Plan of Treatment Scheduled Orders Name Type Priority Associated Diagnoses Orde r Schedule Screening Mammogram Bilateral W Chris Imaging Schedule Routine, Read Routine (OP Routine) Breast cancer screening by mammogram Encounter for screening mammogram for breast cancer Expected: 12/12/2024 (Approximate), Expires: 07/08/2025 MRI Breast Bilateral W WO Contrast Imaging Schedule Routine, Read Routine (OP Routine) 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 breast Breast neoplasm, Tis (LCIS), left Heterogeneously dense tissue of both breasts on mammography Breast cancer screening, high risk patient Family history of breast cancer Expected: 05/21/2024 (Approximate), Expires: 07/08/2025 documented as of this encounter Visit Diagnoses Diagnosis Breast cancer screening by mammogram- Primary 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 breast Breast neoplasm, Tis (LCIS), left Encounter for follow-up surveillance of breast cancer Heterogeneously dense tissue of both breasts on mammography Breast cancer screening, high risk patient Screening mammogram for high-risk patient Encounter for screening mammogram for breast cancer Family history of breast cancer Family history of malignant neoplasm of breast Inconclusive mammogram due to dense breasts Inconclusive mammogram Encounter for monitoring tamoxifen therapy documented in this encounter Historical Medications * This list may reflect changes made after this encounter. sodium chloride (OCEAN) 0.65 % nasal spray Administer 2 sprays into affected nostril(s) every 2 (two) hours as needed 09/07/2023 cholecalciferol (VITAMIN D-3) 400 unit/mL drops daily ibuprofen (ADVIL,MOTRIN) 600 mg tablet Take 1 tablet (600 mg total) by mouth every 6 (six) hours as needed 09/07/2023 added in this encounter Orders Appointment Requests Count Last Ordered Date Fi rst Ordered Date [facility] CLINIC APPOINTMENT REQUEST 2 024 documented in this encounter Care Teams Pigment Mixer Relationship Specialty Start Date End Date Angela Garza [employer] [address] [place] [address] PCP - General Cardiovascular Disease 12/09/23 Almita Smallwood MD [address] [place] [address] Internal Medicine 04/17/20 [place] [address] [place] [address] Surgeon General Surgery 04/07/22 documented as of this encounter
--- OUTSIDE RECORDS SUMMARY | 2024-04-21 12:16 | XMS_ITS | Encounter Summary ---
Author Organization [facility] Healthcare Address [address] [place] [address] Care Team Providers Care Product Engineering Manager Name Role Phone Almita Smallwood MD Unavailable [phone] Yuri Rocha MD Unavailable [phone] Angela Garza NP Primary Care Provider [phone] Reason for Referral * Diagnostic Imaging (Routine) - Closed Specialty Diagnoses / Procedures Referred By Tati campos Referred To Contact Diagnoses Encounter for screening mammogram for breast cancer Procedures Screening Mammogram Bilateral W Snow Noe MD [address] [place] [address] Phone: tel: fax: [address] [phone] Referral ID Status Reason Start Date Expiration Date Visits Re quested Visits Authorized [id number] Closed 11/04/2022 12/04/2023 1 1 Reason for Visit * Diagnostic Imaging (Routine) - Closed Specialty Diagnoses / Procedures Referred By Tati campos Referred To Contact Diagnoses Encounter for screening mammogram for breast cancer Procedures Screening Mammogram Bilateral W Snow Noe MD [address] [place] [address] Phone: tel: fax: [address] [phone] Referral ID Status Reason Start Date Expiration Date Visits Re quested Visits Authorized [id number] Closed 11/04/2022 12/04/2023 1 1 Encounter Details Date Type Department Care Team (Latest Contact Info) Description 12/09/2023 7:25 AM CDT - 12/09/2023 11:59 PM CDT Hospital Encounter [facility] Medical Office [address] 1 Breast [facility] [address] [place] [address] Encounter for screening mammogram for breast cancer Discharge Disposition: Discharge to home or self care Social History Tobacco Use Types Packs/Day Years [...] on file 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 cyclobenzaprine (FLEXERIL) 5 mg tablet Take 5-10 mg by mouth 2 (two) times a day as needed 07/09/2021 HYDROcodone-acet aminophen (NORCO) 5-325 mg per tabletIndication s:Pain Take 1 tablet by mouth every 4 (four) hours as needed for pain 20 tablet 04/07/2022 ibuprofen (ADVIL,MOTRIN) 600 mg tablet Take 1 tablet (600 mg total) by mouth every 6 (six) hours as needed 09/07/2023 levocetirizine (XYZAL) 5 mg tablet Take 5 mg by mouth nightly 02/22/2020 montelukast (SINGULAIR) 10 mg tablet Take 1 tablet (10 mg total) by mouth nightly multivitamin tablet,chewable Take 2 Gum by mouth every morning sodium chloride (OCEAN) 0.65 % nasal spray Administer 2 sprays into affected nostril(s) every 2 (two) hours as needed 09/07/2023 tamoxifen (NOLVADEX) 20 mg tabletIndication s:prevention of breast cancer in high risk women Take 1 tablet (20 mg total) by mouth daily 90 tablet 3 08/12/2021 tiZANidine (ZANAFLEX) 2 mg tablet Take 2 mg by mouth every 8 (eight) hours 03/04/2022 documented as of this encounter Discharge Disposition Disposition Code Departure Means Destination Discharge to home or self care documented in this encounter Plan of Treatment Not on file documented as of this encounter Procedures Procedure Name Priority Date/Time Associated Diagnosis Comments SCREENING MAMMOGRAM BILATERAL W CHRIS Schedule Routine, Read Routine (OP Routine) 12/09/2023 7:44 AM CDT Encounter for screening mammogram for breast cancer documented in this encounter Results * Screening Mammogram Bilateral [...] age 42, based on guidelines of the [employer] (ACR Practice Parameter for the Performance of Screening and Diagnostic Mammography) and [employer]. For women [...] Calabrese MD IMG MAMMO PROCEDURES Final Result documented in this encounter Visit Diagnoses Diagnosis Encounter for screening mammogram for breast cancer documented in this encounter Care Teams Product Engineering Manager Relationship Specialty Start Date End Date Angela Garza NP [address] [place] [address] PCP - General Cardiovascular Disease 12/09/23 Almita Smallwood MD [address] [place] [address] Internal Medicine 04/17/20 [place] [address] [facility] [address] [place] [address] Surgeon General Surgery 04/07/22 documented as of this encounter
--- OUTSIDE RECORDS SUMMARY | 2024-04-21 12:16 | XMS_ITS | Referral Summary ---
Author Organization [facility] Address [address] [place] [address] Care Team Providers Care Chemistry Manager Name Role Phone Almita Smallwood MD Primary Care Provider + Source Comments [facility] [employer],non-owned Affiliates and Associated Physician Practices is amultiple site organization consisting of ambulatory clinics and hospital sitesin [place], [place], [place] and [place]. This disclosure is being madepursuant to the Care Everywhere program and may not contain all information available regarding this patient. Last updated 18.[facility] [employer] Social History Tobacco Use Types Packs/Day Years Used Date Smoking Tobacco: Never Assessed Sex and Gender Information Value Date Recorded Sex Assigned at Not on file Gender Identity Not on file Sexual Orientation Not on file Plan of Treatment Not on file Procedures Procedure Name Priority Date/Time Associated Diagnosis Comments MAMMO LEFT DIAGNOSTIC Routine 05/26/2017 2:54 PM LANDING SIGNAL OFFICER from Last 3 Months or Most Recently Relevant to Health Maintenance Results * MAMMO LEFT DIAGNOSTIC (05/26/2017 2:54 PM LANDING SIGNAL OFFICER) Anatomical Region Laterality Modality Left Other Impressions 05/26/2017 3:13 PM LANDING SIGNAL OFFICER IMPRESSION: No evidence of malignancy in the left breast. ASSESSMENT: BI-RADS Category 2: Benign finding(s). RECOMMENDATION: Bilateral diagnostic mammogram in September 2017. Findings discussed with the patient by Dr. Cantu. I, Dr. KELLEN MANTILLA M.D. have personally reviewed and interpreted this examination/study. This report was electronically signed by KELLEN MANTILLA M.D. ??on 05/26/2017 3:13 PM . Narrative 05/26/2017 3:13 PM LANDING SIGNAL OFFICER LEFT DIAGNOSTIC MAMMOGRAM TECHNIQUE: Images were performed using 3D tomosynthesis images with reconstructed/synthetic 2D images. ??CAD analysis was performed. DATE: 05/26/2017. HISTORY: 57-year-old female with recent history of lumpectomy in the left breast in 2016, here for first postoperative follow-up. COMPARISON: Prior [...] history of lumpectomy in the leftbreast in 2016, here for first postoperative follow-up. COMPARISON: Prior [...] M.D. on05/26/2017 3:13 PM . Historical Provider MD M[place] ORDERABLES from Last 3 Months or Most Recently Relevant to Health Maintenance Care Teams Chemistry Manager Relationship Specialty Start Date End Date Almita Smallwood MD [address] [place] [address] PCP - General Internal Medicine 10/16/18
--- OUTSIDE RECORDS SUMMARY | 2024-04-21 12:16 | XMS_ITS ---
Author Organization [facility] Address [address] [place] [address] Care Team Providers Care Correctional Facility Psychiatrist Name Role Phone Boone Dunham Primary Care Provider Unavailab María Elena Portillo Unavailable [phone] Angela Garza Unavailable Unavailable Dr. Mauri Altman Unavailable [phone] REASON FOR VISIT Headache follow-up Encounters Encounter Location Date Provider Diagnosis [facility] [address] [place] [address] 06/23/2023 Mauri Altman Plan Of Treatment No Information Progress Notes * Asa HERMOSILLOFranciscaB:[birth year] (64 yo F)Acc No.[id number]:06/23/2023 Progress Notes Patient:?Lisa HERMOSILLO Provider:?Mauri Altman MD :1960???Age:63 Y???Sex:Female D ate:06/23/2023 Address:[address] Pcp:Boone Dunham Subjective: * Chief Complaints: * ???1. Headache follow-up. * Medical History:? Objective: * Vitals:? Assessment: Plan: * Treatment: * Billing Information: * Visit Code:? * Procedure Codes:? * Electronic signature of Dr. Mauri Altman MD on 04/21/2024 at 12:[address] Sign off status: Pending * Provider:?Mauri Altman MD Date:?06/22 Generated for Ramón tineo/Reji/Alvin on:?04/21/2024 12:[address]
--- OUTSIDE RECORDS SUMMARY | 2024-04-21 12:16 | XMS_ITS | Clinical Summary ---
Author Organization [facility] Address [address] [place] [address] Care Team Providers Care Screen And Cyclone Repairer Name Role Phone Almita Smallwood MD Primary Care Provider + Source Comments [facility],non-owned Affiliates and Associated Physician Practices is amultiple site organization consisting of ambulatory clinics and hospital sitesin [place], [place], [place] and [place]. This disclosure is being madepursuant to the Care Everywhere program and may not contain all information available regarding this patient. Last updated 18.[facility] [employer] Social History Tobacco Use Types Packs/Day Years Used Date Smoking Tobacco: Never Assessed Sex and Gender Information Value Date Recorded Sex Assigned at Not on file Gender Identity Not on file Sexual Orientation Not on file Plan of Treatment Health Maintenance Due Date Last Done Comments COLOGUARD (AGES 45-75) - COL ON CA SCREENING 1960 COLON MONITORING 1962 COLONOSCOPY - COLON CA SCREENING 1962 CT COLONOGRAPHY - COLON CA SCREENING 1960 Colorectal Cancer Screening 1962 FIT - COLON CA SCREENING 1962 FLEX SIG - COLON CA SCREENING 1962 LIPID TESTING 1962 PAP SMEAR 1962 HIV SCREENING 1977 HEPATITIS C SCREENING 02/07/1980 DTAP/TDAP/TD VACCINES (1 - Tdap) 1981 ZOSTER VACCINE (1 of 2) 02/12/2012 MAMMOGRAM 05/26/2019 05/26/2017 DEPRESSION SCREENING 04/18/2023 COVID-19 VACCINE ( - 2023-2 5 season) 2023 INFLUENZA VACCINE (#1) 2023 01/30/2018 Respiratory Syncytial Virus (RSV) Vaccine Pt: or over 60 yrs (1 - 1-dose 75+ series) 2037 HEPATITIS B VACCINE Aged Out No longe r eligible based on patient's age to complete this topic HIB VACCINE Aged Out No longer eligi ble based on patient's age to complete this topic HPV VACCINE Aged Out No longer eligi ble based on patient's age to complete this topic MENINGOCOCCAL VACCINE Aged Out No boby esther eligible based on patient's age to complete this topic PNEUMOCOCCAL VACCINE Aged Out No long er eligible based on patient's age to complete this topic Procedures Procedure Name Priority Date/Time Associated Diagnosis Comments MAMMO LEFT DIAGNOSTIC Routine 05/26/2017 2:54 PM MACHINING ENGINEER from Last 3 Months or Most Recently Relevant to Health Maintenance Results * MAMMO LEFT DIAGNOSTIC (05/26/2017 2:54 PM MACHINING ENGINEER) Anatomical Region Laterality Modality Left Other Impressions 05/26/2017 3:13 PM MACHINING ENGINEER IMPRESSION: No evidence of malignancy in the left breast. ASSESSMENT: BI-RADS Category 2: Benign finding(s). RECOMMENDATION: Bilateral diagnostic mammogram in September 2017. Findings discussed with the patient by Dr. Cantu. I, Dr. KELLEN MANTILLA M.D. have personally reviewed and interpreted this examination/study. This report was electronically signed by KELLEN MANTILLA M.D. ??on 05/26/2017 3:13 PM . Narrative 05/26/2017 3:13 PM MACHINING ENGINEER LEFT DIAGNOSTIC MAMMOGRAM TECHNIQUE: Images were performed [...] 3:13 PM . Historical Provider MAMMO ORDERABLES from Last 3 Months or Most Recently Relevant to Health Maintenance Care Teams Screen And Cyclone Repairer Relationship Specialty Start Date End Date Almita Smallwood MD [address] [place] [address] PCP - General Internal Medicine 10/16/18
--- OUTSIDE RECORDS SUMMARY | 2024-04-21 12:16 | XMS_ITS | Encounter Summary ---
Author Organization [facility] Address [address] [place] [address] Care Team Providers Care Hothouse Worker Name Role Phone Unavailable Primary Care Provider Unavailabl e Encounter Details Date Type Department Care Team (Latest Contact Info) Description 11/05/2016 Hospital Outpatient Visit [facility] MRI [address] [place] [id number] Discharge Disposition: Home or Self Care Social [...] Comments MRI BREAST BILAT WWO CONTRAST Routine 11/05/2016 10:36 AM CDT CREATININE BLOOD - POCT (IP) [facility] Routine 11/05/2016 documented in this encounter Results * MRI BREAST BILAT WWO CONTRAST (11/05/2016 10:36 AM CDT) Anatomical Region Laterality Modality Breast Bilateral Other Impressions 11/05/2016 2:11 PM CDT IMPRESSION: Right breast: No MR evidence of malignancy. Left breast: Minimal enhancement level of the clip, corresponds with the patient's biopsy site and biopsy-proven ductal carcinoma in situ. ASSESSMENT: BI-RADS category 6: Known biopsy-proven cancer. RECOMMENDATIONS: Patient being followed by Dr. Thorpe. Dictated by Aj Lopez MD (Fishing Floats Assembler) Dr. RAPHAEL Palacio M.D. have personally reviewed and interpreted this examination/study. This report was electronically signed by RAPHAEL VALENZUELA M.D. ??on 11/05/2016 2:11 PM . 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 COMPARISON: Comparison is made with prior bilateral screening and diagnostic mammogram from September 2016 [facility] TECHNIQUE: Multiplanar multisequence MR imaging of both breasts before and following the administration of 6 cc of Gadavist. Dynamic phase imaging was performed in the axial plane. Exam was processed by and interpreted on a [employer] chocolate finisher operator including 3-D volume rendering, subtraction image processing and contrast kinetic analysis. FINDINGS: Background tissue pattern: Heterogeneous fibroglandular tissue. Degree of background parenchymal enhancement: Moderate symmetric. RIGHT BREAST: Multiple T2 hyperintense lesions are identified in the right breast, some of which demonstrate T1 hyperintensity, consistent with simple and hemorrhagic/proteinaceous cysts. There is no suspicious mass or area of abnormal enhancement in the right breast. There is no abnormality of the right axilla, chest wall, or nipple areolar complex. LEFT BREAST: Susceptibility artifact in the upper outer breast (series 4, image 61) and inner subareolar breast (series 4, image 67), represent clips. Minimal enhancement is identified in the region of the clip corresponding to the recent biopsy-proven DCIS (series 7 and 8, image 58). Multiple T2 hyperintense lesions, some of which demonstrate T1 hyperintensity, consistent with simple and hemorrhagic/proteinaceous cysts. There is no abnormality of the left axilla, chest wall, or nipple areolar complex. EXTRAMAMMARY FINDINGS: No significant extramammary findings are identified. Procedure Note Raphael Valenzuela MD - 07/15/2017 BILATERAL BREAST MRI HISTORY: 56-year-old female with biopsy-proven ductal carcinoma in situin the left breast. COMPARISON: Comparison is made with prior bilateral screening anddiagnostic mammogram from September 2016 [facility] TECHNIQUE: Multiplanar multisequence MR imaging of both breasts before andfollowing the administration of 6 cc of Gadavist. Dynamic phase imagingwas performed in the axial plane. Exam was processed by and interpreted mariola DEUSd chocolate finisher operator including 3-D volume rendering, subtraction image processing and contrast kineticanalysis. FINDINGS: Background tissue pattern: Heterogeneous fibroglandular tissue. Degree of background parenchymal enhancement: Moderate symmetric. RIGHT BREAST: Multiple T2 hyperintense lesions are identified in the right breast, someof which demonstrate T1 hyperintensity, consistent with simple andhemorrhagic/proteinaceous cysts. There is no suspicious mass or area ofabnormal enhancement in the right breast. There is no abnormality of the right axilla, chest wall, or nippleareolar complex. LEFT BREAST: Susceptibility artifact in the upper outer breast (series 4, image 61) andinner subareolar breast (series 4, image 67), represent clips. Minimalenhancement is identified in the region of the clip corresponding to therecent biopsy-proven DCIS (series 7 and 8, image 58). Multiple T2 hyperintense lesions, some of whichdemonstrate T1 hyperintensity, consistent with simple andhemorrhagic/proteinaceous cysts. There is no abnormality of the leftaxilla, chest wall, or nipple areolar complex. EXTRAMAMMARY FINDINGS: No significant extramammary findings are identified. IMPRESSION IMPRESSION: Right breast: No MR evidence of malignancy. Left breast: Minimal enhancement level of the clip, corresponds with thepatient's biopsy site and biopsy-proven ductal carcinoma in situ. ASSESSMENT: BI-RADS category 6: Known biopsy-proven cancer. RECOMMENDATIONS: Patient being followed by Dr. Thorpe. Dictated by Aj Lopez MD (Fishing Floats Assembler) I, Dr. RAPHAEL VALENZUELA M.D. have personally reviewed and interpretedthis examination/study. This report was electronically signed by RAPHAEL VALENZUELA M.D. on11/05/2016 2:11 PM . Historical Provider MR ORDERABLES * (ABNORMAL) CREATININE BLOOD - POCT (IP) [facility] (11/05/2016) Creatinine POCT 1.03 0.3 - 1.3 mg/dL [facility] eGFR POCT 58(A) 60 ml/min [facility] 11/05/2016 Louisa Mantilla MD LAB - POINT OF CA RE ORDERABLES [facility] documented in this encounter Visit Diagnoses Diagnosis Malignant neoplasm of female breast (HCC) documented in this encounter
--- OUTSIDE RECORDS SUMMARY | 2024-04-21 12:16 | XMS_ITS ---
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 Name Role Phone Polomarquise Boone Primary Care Provider Unavailab María Elena Portillo Unavailable [phone] Angela Garza Unavailable Unavailable Allergies No Known Allergies REASON FOR VISIT Chronic upper airway symptoms concerning for uncontrolled atopic disease, Former smoker Medications Medication SIG (Take, Route, Frequency, Duration) Notes Start Date End Date Status MAGNESIUM CARBONATE Active VITAMIN D3 10 mcg/mL 1 mL orally once a day Active MONTELUKAST 10 mg 1 tab(s) orally once a day Active MULTIVITAMIN Multiple Vitamins 1 tab(s) orally once a day Active LEVOCETIRIZINE 5 mg 1 tab(s) orally once a day (in the evening) Active RIZATRIPTAN 10 mg 1 tab(s) orally twice daily for 30 days As needed for migraine 05/26/2023 Active PROBIOTIC FORMULA (BACILLUS COAGULANS) - 1 cap(s) orally once a day 4 dropper 60 drops Active AMITRIPTYLINE 10 mg 1 tab once daily at bedtime for 1 week, then 2 tabs daily at bedtime orally as directed for 30 days 05/26/2023 Active Immunizations Vaccine Route Administration Date Status Comme nts NOC PedvaxHIB IM Intramuscular 06/09/2023 Administered Social History Tobacco Use: Social History Observation Description Date Details (start date - stop date) Former Smoker NA - NA Smoking Smart Form: Question Answer Notes Are you a: former smoker Additional Findings:Tobacco User Heavy cigarette smoker (20-39 cigs/day) Additional Findings:Tobacco Non-User Ex-cigarett e smoker amount unknown Problems Problem Type SNOMED Code ICD Code Onset Dates Problem Status W/U Status Risk Notes Problem Hypertrophy of nasal turbinates (05355012) Hypertrophy of nasal turbinates (J34.3) Active confirmed Problem Vaccination given (734114367) Encounter for immunization (Z23) Active confirmed Vital Signs Blood pressure systolic 116 mm Hg 06/09/19 24 Blood pressure diastolic 80 mm Hg 024 Height 65.5 in 06/09/2023 Weight 153.4 lbs 06/09/2023 BMI 25.14 kg/m2 06/09/2023 Oximetry 95 % 06/09/2023 Encounters Encounter Location Date Provider Diagnosis [facility] [address] [place] [address] 06/09/2023 María Elena Asher Hypertrophy of nasal turbinates J34.3 ; Other chronic sinusitis J32.8 ; Chronic rhinitis J31.0 ; Vitamin D deficiency, unspecified E55.9 and Encounter for immunization Z23 Assessments Encounter Date Diagnosis (ICD Code) Assessment Notes Treatment Notes Treatment Clinical Notes Section Notes 06/09/2023 Hypertrophy of nasal turbinates (ICD-10 - J34.3) Mena is here today for evaluation of sinus symptoms and infections. She is currently on Zyrtec and Singulair. Due to high OOP she requested to check labs -ImmunoCAPS negative -Discussed treatment for GRETA vs. testing later this year when she has hit her deductible 06/09/2023 Other chronic sinusitis (ICD-10 - J32.8) Given frequency of infection I recommended checking labs to evaluate Migdalia immune system + Vitamin D -Vitamin D is borderline at 37, recommend adding 1-2k -IgA borderline elevated, otherwise normal immunoglobulins - She has adequate Pneumococcal protection but HIb is low. Recommend booster with recheck of titers in 4-6 weeks - Allery panel negative -Consider second opinion with ENT. Also discussed trial of meds for GRETA -Return in 3 months for E&M 06/09/2023 Chronic rhinitis (ICD-10 - J31.0) Await labs 06/09/2023 Vitamin D deficiency, unspecified (ICD-10 - E55.9) Recommend starting 1-2 k of D3 06/09/2023 Encounter for immunization (ICD-10 - Z23) Hib administered today 06/09/2023 Other Plan Of Treatment Medication Medication Name Sig Start Date Stop Date Notes MONTELUKAST 10 mg 1 tab(s) orally once a day LEVOCETIRIZINE 5 mg 1 tab(s) orally once a day (in the evening) Treatment Notes Assessment Notes Hypertrophy of nasal turbinates Mena is here today for evaluation of sinus symptoms and infections. She is currently on Zyrtec and Singulair. Due to high OOP she requested to check labs -ImmunoCAPS negative -Discussed treatment for GRETA vs. testing later this year when she has hit her deductible Other chronic sinusitis Given frequency of infection I recommended checking labs to evaluate Migdalia immune system + Vitamin D -Vitamin D is borderline at 37, recommend adding 1-2k -IgA borderline elevated, otherwise normal immunoglobulins - She has adequate Pneumococcal protection but HIb is low. Recommend booster with recheck of titers in 4-6 weeks - Allery panel negative -Consider second opinion with ENT. Also discussed trial of meds for GRETA -Return in 3 months for E&M Chronic rhinitis Await labs Vitamin D deficiency, unspecified Recomm end starting 1-2 k of D3 Encounter for immunization Hib administe red today Pending Test Test Name Order Date -Haemophilus influenzae B IgG 06/09/2023 Next Appt Details Follow Up: 3 Months, Reason: Evaluation and Management,Laboratory Review Progress Notes * NATEMERCEDESCAMILLAAngelineChineduB:02[birth year] (63 yo F)Acc No.[id number]:06/09/2023 Progress Notes Patient:?JAIMEE Lisa Provider:?María Elena Asher PA-C :1960???Age:63 Y???Sex:Female D ate:06/09/2023 Address:[address] [place], [place] [id number] Pcp:Boone Dunham Subjective: * Chief Complaints: * ???Chronic upper airway symp toms concerning for uncontrolled atopic diseaseFormer smoker * HPI: ???*Introduction:?I had the pleasure of seeing?Lisa Mena Jaimee a 63 year-old WF with a history of Stage 0 Breast Cancer (s/p lumpectomy), mild emphysema, and chronic sinusitis here today for allergy evaluation and management. Mena was alone for todays visit. Here at the recommendation of Dr. Dunham.Descriptors of her upper airways symptoms are outlined below. She has never undergone allergy skin testing or received allergy immunotherapy. Due to OOP declined skin testing and blood work was obtained. Here to review labs results. ?She reports chronic congestion, headaches, and intermittent vertigo for years. The last 2-3 years having sinus infections 2-3 times a year. Previously sent to ENT, s/p CT which was normal. Has been taking Zyrtec and Singulair for a few year years. Also taking a variety of vitamins without benefit. She works for [employer]. Used to work remotely until January when she was brought back into the office and noticed getting sick more reguarly. Her headaches are on the back of her head but also can be all over and are associated with dizziness and light sensitivity. No prior Neurology evaluation. 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 Seen by Pulmonary and found to have mild emphysema. She is a former smoker 2 pk-day x 20 years. Quit in 2004. She went through vestibular rehab and that made it worse. She has never had sinus surgery.?I also sent her to see Dr. Altman of [facility].?Today, she reports no fevers, chills, night sweats or other constitutional symptoms.? * ROS:?ALLERGY:?Positive?per the HPI and history, otherwise unremarkable.?runny nose?Yes.?scratchy throat?Yes.?itchy eyes?Yes.?ear fullness?Yes.?sinus congestion?Yes.?SPECIAL SENSES:?Positve for?none.?cataracts?No.?glaucoma?No.?loss of hearing?No.?itching in ears?Yes.?ringing in ears?Yes.?loss of balance?Yes.?dry eyes?No.?excessive tearing?Yes.?itching eyes?Yes.?loss of taste?No.?conjunctivitis?No.?ear infections?Yes,No.?CONSTITUTIONAL:?weight gain?Yes.?loss of appetite?No.?fever?Yes.?weakness?Yes.?weight loss?No.?fatigue?Yes.?night sweats?Yes.?Positive for?none.?ENT:?cold?Yes.?cough?No.?epistaxis?No.?hearing loss?No.?change in voice?No.?sore throat?Yes.?ringing in ears?Yes.?sinus pain?Yes.?Positive?per the HPI and history, otherwise unremarkable.?RESPIRATORY:?shortness of breath?Yes.?chest pain?No.?chest congestion?No.?cough?No.?Positive?per the HPI and history, otherwise unremakable.?OPHTHALMOLOGY:?diminished vision?No.?eye irritation?No.?drainage from eyes?No.?blurring of vision?Yes.?seasonal eye sx?No.?loss of vision?No.?Positive for?per the HPI and history, otherwise unremarkable.?itching?Yes.?sensitivity to light?Yes.?discharge?No.?watering?Yes.?swelling of the eyelids?No.?redness?No.?ENDOCRINOLOGY:?fatigue?Yes.?polydipsia?No.?polyuria?Yes.?weight loss?No.?sleep disturbance?Yes.?cold intolerance?Yes.?heat intolerance?Yes.?diabetes?No.?Positive for?none.?CARDIOLOGY:?chest pain?No.?palpitations?No.?leg edema?Yes.?dizziness?Yes.?shortness of breath?Yes.?Positive for?none.?GASTROENTEROLOGY:?dysphagia?No.?abdominal pain?No.?nausea?No.?vomiting?No.?constipation?Yes.?diarrhea?No.?blood in stool?No.?indigestion?No.?hemorrhoids?No.?Positive for?none.?UROLOGY:?difficulty urinating?No.?blood in urine?No.?frequent urination?Yes.?urinary incontinence?Yes.?recurrent UTI?No.?Positive for?none.?DERMATOLOGY:?rash?No.?mole?Yes.?lumps?No.?dry or sensitive skin?Yes.?hives (urticaria)?No.?acne?No.?skin cancer?No.?Positive for?per the HPI and history, otherwise unremakable.?NEUROLOGY:?headache?Yes.?tingling numbness?No.?seizures?No.?insomnia?No.?memory loss?No.?dizziness?Yes.?gait abnormality?No.?Positive for?none.?HEMATOLOGY/LYMPH:?Positive for?none.?MUSCULOSKELETAL:?joint swelling?No.?joint pain?Yes.?leg cramps?No.?joint stiffness?Yes.?sciatica?Yes.?osteoporosis?No.?fracture?No.?carpal tunnel?No.?gout?No.?Positive for?none.?PSYCHOLOGY:?high stress level?Yes.?depression?No.?sleep disturbances?Yes.?suicidal ideation?No.?eating disorder?No.?mental or physical abuse?No.?anxiety?Yes.?Positive for?none.?FEMALE REPRODUCTIVE:?heavy periods?No.?hot flashes?Yes.?abnormal vaginal discharge?No.?sexually active?No.?infertility?No.?frequent yeat infections?No.?pelvic pain?No.?breast pain?No.?nipple discharge No.?Are you ??No.?Are you planning on a future pregancy??No.?All other review of systems per the HPI and history, otherwise unremarkable. * Medical History:? * Surgical History:?Uterine bi opsy 1Colonoscopy 3Breast Lumpectomy 11/04/2016Kidney stones 08/02/2014 * Hospitalization/Major Diagno stic Procedure:?No Hospitalization History. * Family History:?Father: dece ased, No.?Mother: , No.?Paternal Grand Father: No.?Paternal Grand Mother: No.?Maternal Grand Father: No.?Maternal Grand Mother: No.?Paternal uncle: No.?Paternal aunt: No.?Maternal uncle: No.?Maternal aunt: No.?Siblings: Yes.?Children: Yes.?2 brother(s) , 8 sister(s) . 1 son(s) , 1 daughter(s) - healthy. .? mom- colon cancer father-leukemia, sister- colon cancer, migraine. * Social History:?Marital Status?What is your marital status?Alcohol Screening?Do you ever drink alcoholic beverages??Yes ?Number of drinks per occasion:?2 ?Frequency??Every 6 months ???Caffeine: Yes. ???Smoking?Have you ever smoked tobacco:?former smoker ?Additional Findings: Tobacco User?Heavy cigarette smoker (20-39 cigs/day) ?Additional Findings: Tobacco Non-User?Ex-light cigarette smoker (1-9/day) ?How old were you when you started smoking??18 ?How old were you when you quit smoking??45 ?How many cigarettes a day did you smoke??31 to 40 ?Are you a :?former smoker ???Smoking Smart Form?Are you a:?former smoker ?Additional Findings:Tobacco User?Heavy cigarette smoker (20-39 cigs/day) ?Additional Findings:Tobacco Non-User?Ex-cigarette smoker amount unknown ???Recreational drug use?Have you ever used recreational drugs??No ???Details on consumption of certain products?Do you regularly consume products with aspartame; Equal or NutraSweet??No ?Do you regularly consume products with artificial coloring??Yes ?Have you ever noticed worsening of your rash with these food items??No ???Exercise?What kind(s) of exercise do you perform regularly??walking,weight training ?How often do you perform this exercise??every other day ???Are any of the following personal care products containing fragrance, dye or preservatives used regularly?Shampoo:?Yes ?Conditioner:?Yes ?Soap:?Yes ?Laundry Detergent:?Yes ?Fabric Softener:?Yes ?Deodorant:?Yes ?Perfume, cologne, after shave:?Yes ?Air freshners or other scented products:?Yes ?Hair coloring dyes or rinses:?Yes ???Occupation?Are you currenly employed??Yes ?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 number of years?30 ?Do you believe that your current or previous occupation has any bearing on your illness??Yes ?How much work have you missed due to breathing difficulty within the past year??1 or 2 days ?Do you have any pending or planned legal action against your current or former employer which pertains to your medical illness??No ?Do you anticipate that your evaluation will be used in any legal action against your current employer or former employer??No ?Have you ever worked in any of the following:?factory ?Have you had any job with high exposure to fumes, chemicals, dust or other noxious substances??No ?Are you currently a student??No ???Environmental History?Living environment:?apartment ?Where [place] the [place] located[place] ?Age of home:?62 ?How long have you lived there??0-1 years ?How many people live in the home??1 ???Home description?Basement:?No ?Smokers in the home??No ?Smokers outside the home??Yes ?Air Conditioning??No ?Forced air heating??Yes ?Gas or electric??electric ?Fireplace??No ?Wood burning stove??No ?Do you vacuum the home??Yes ?Air purification systems??No ?Pillow and mattress dust-proof encasings??No ?Do you use a humidifier??Yes ?Whole house or room??room humidifier ?Is it used year-round, seasonal, or as needed??as needed ?Is the humidifier cleaned regularly??Yes ?Do you own any pets??No ?Fabric softeners used??Yes ?Plants in the home??Yes ?How many??10 ?Where are they kept??other room in home ?Is there carpeting in your bedroom??Yes ?Age of carpet??10 ?Do you have [id number]-[id number] carpeting??Yes ?What is the age of your carpeting??10 ?What is the age of your mattress (years)??5 ?What material(s) are used to manufacture your bedding and pillow??synthetic ?What is the age of your pillow (years)??5 ?What material are your bedding items made of??synthetic ?Do you sleep with quilts or blankets or a duvet??Yes ?What material??synthetic * Medications:?Takingmagnesium carbonate multivitamin Multiple Vitamins tablet 1 tab(s) orally once a day Vitamin D3 10 mcg/mL liquid 1 mL orally once a day montelukast 10 mg tablet 1 tab(s) orally once a day Probiotic Formula (Bacillus Coagulans) - capsule 1 cap(s) orally once a day , Notes to Pharmacist: 4 dropper 60 dropsrizatriptan 10 mg tablet 1 tab(s) orally twice daily As needed for migraineamitriptyline 10 mg tablet 1 tab once daily at bedtime for 1 week, then 2 tabs daily at bedtime orally as directed levocetirizine 5 mg tablet 1 tab(s) orally once a day (in the evening) Medication List reviewed and reconciled with the patientTaking magnesium carbonate Taking multivitamin Multiple Vitamins tablet 1 tab(s) orally once a day Taking Vitamin D3 10 mcg/mL liquid 1 mL orally once a day Taking montelukast 10 mg tablet 1 tab(s) orally once a day Taking Probiotic Formula (Bacillus Coagulans) - capsule 1 cap(s) orally once a day , Notes to Pharmacist: 4 dropper 60 dropsTaking rizatriptan 10 mg tablet 1 tab(s) orally twice daily As needed for migraineTaking amitriptyline 10 mg tablet 1 tab once daily at bedtime for 1 week, then 2 tabs daily at bedtime orally as directed Taking levocetirizine 5 mg tablet 1 tab(s) orally once a day (in the evening) Medication List reviewed and reconciled with the patient * Allergies:?N.K.D.A.no[Allerg ies Verified] Objective: * Vitals:?BP:116/80mm Hg, HR:7 7/min, Pulse Oximetry:95%, Ht: 65.5 in, Wt: 153.4 lbs, BMI:25.14Index. * ???Past Orders: ???Lab:-Immunoglobulins A/G/ M, Qn, Ser (Order Date - 05/12/2023) (Collection Date & Time - 05/12/2023 08:44 AM) ?Result: Abnormal ? Value Reference Range ?Immunoglobulin G, Qn, Serum 4532 255-4900 - mg/dL ?Immunoglobulin A, Qn, Serum 437 H 87-352 - mg/dL ?Immunoglobulin M, Qn, Serum 99 26-217 - mg/dL ?Notes: María Elena AsherSury 05/16/2023 07:54:48 AM > ???Lab:-Vitamin D, 25-Hydrox y (Order Date - 05/12/2023) (Collection Date & Time - 05/12/2023 08:44 AM) ?Result: Abnormal ? Value Reference Range ?Vitamin D, 25-Hydroxy 37.1 30.0-100.0 - ng/mL ?Notes: María Elena AsherSury 05/16/2023 07:54:20 AM > recommend 2000 IU - need to see what she is taking ???Lab:-Haemophilus influenz ae B IgG (Order Date - 05/12/2023) (Collection Date & Time - 05/12/2023 08:44 AM) ?Result: Abnormal ? Value Reference Range ?Haemophilus influenzae B IgG 0.17 - ug/mL ?Notes: María Elena Asher Carolyne 05/17/2023 09:44:45 AM >María Elena Asher Carolyne 05/17/2023 09:44:49 AM > Needs HiB vaccine and recheck titers in 4-6 weeks. ???Lab:-Tetanus/Diphtheria A b (Order Date - 05/12/2023) (Collection Date & Time - 05/12/2023 08:44 AM) ?Result: Normal ? Value Reference Range ?Tetanus Antitoxoid IgG Ab 6.44 <0.10 - IU/mL ?Diphtheria Antitoxoid Ab 1.42 <0.10 - IU/mL ?Notes: María Elena Asher Carolyne 05/17/2023 09:45:07 AM > ???Lab:-Pneumococcal Ab (23 Serotype) (Order Date - 05/12/2023) (Collection Date & Time - 05/12/2023 08:44 AM) ?Result: Normal ? Value Reference Range ?Pneumo Ab Type 54 (15B)* >22.0 >1.3 - ug/mL ?Pneumo Ab Type 1* >14.2 >1 .3 - ug/mL ?Pneumo Ab Type 70 (33F)* >10.1 >1.3 - ug/mL ?Pneumo Ab Type 68 (9V)* 13.0 >1.3 - ug/mL ?Pneumo Ab Type 56 (18C)* >8.1 >1.3 - ug/mL ?Pneumo Ab Type 51 (7F)* 10.6 >1.3 - ug/mL ?Pneumo Ab Type 5* 8.5 >1 .3 - ug/mL ?Pneumo Ab Type 43 (11A)* 5.7 >1.3 - ug/mL ?Pneumo Ab Type 34 (10A)* >19.5 >1.3 - ug/mL ?Pneumo Ab Type 26 (6B)* >41.4 >1.3 - ug/mL ?Pneumo Ab Type 23 (23F)* >14.4 >1.3 - ug/mL ?Pneumo Ab Type 8* 12.0 >1 .3 - ug/mL ?Pneumo Ab Type 3* 15.5 >1 .3 - ug/mL ?Pneumo Ab Type 57 (19A)* >33.6 >1.3 - ug/mL ?Pneumo Ab Type 22 (22F)* 12.7 >1.3 - ug/mL ?Pneumo Ab Type 4* >8.3 >1 .3 - ug/mL ?Pneumo Ab Type 9 (9N)* 4.8 >1.3 - ug/mL ?Pneumo Ab Type 12 (12F)* >19.5 >1.3 - ug/mL ?Pneumo Ab Type 14* 6.9 > 1.3 - ug/mL ?Pneumo Ab Type 17 (17F)* 1.3 L >1.3 - ug/mL ?Pneumo Ab Type 19 (19F)* >30.3 >1.3 - ug/mL ?Pneumo Ab Type 2* >20.7 >1 .3 - ug/mL ?Pneumo Ab Type 20* >38.2 > 1.3 - ug/mL ?Notes: María Elena Asher 05/17/2023 09:44:34 AM >22 ???Lab:-Respiratory Allergen s w/Total IgE Area 8 (Order Date - 05/12/2023) (Collection Date & Time - 05/12/2023 08:44 AM) ?Result: Normal ? Value Reference Range ?Immunoglobulin E, Total 26 6-495 - IU/mL ?U615-CfG D pteronyssinus <0.10 Class 0 - kU/L ?K085-PpN D farinae <0.10 C lass 0 - kU/L ?Q243-KsI Cat Dander <0.10 Class 0 - kU/L ?O895-WyN Dog Dander <0.10 Class 0 - kU/L ?C550-EjE B[place] Grass <0.10 Class 0 - kU/L ?T593-CtA Greg Grass <0.10 Class 0 - kU/L ?Y035-IsM Cockroach, English <0.10 Class 0 - kU/L ?C383-PtJ Penicillium chrysogen <0.10 Class 0 - kU/L ?A075-IdZ Cladosporium herbarum <0.10 Class 0 - kU/L ?K224-SeD Aspergillus fumigatus <0.10 Class 0 - kU/L ?V810-CgU Alternaria alternata <0.10 Class 0 - kU/L ?M372-CrH Maple/Peever <0.10 Class 0 - kU/L ?M331-XjU Garibaldi, Mountain <0.10 Class 0 - kU/L ?D583-FlR Biola, White <0.10 Class 0 - kU/L ?Y232-FsK Elm, Icelandic <0.10 Class 0 - kU/L ?X847-OkG Maple [place] <0.10 Class 0 - kU/L ?Y629-MnB [place] <0.10 Class 0 - kU/L ?W795-EqU Cl, White <0.10 Class 0 - kU/L ?N433-UxQ [place] <0.10 Clas s 0 - kU/L ?K494-WaK Pecan, [place] <0.10 Class 0 - kU/L ?Q079-FxY White [place] <0.10 Class 0 - kU/L ?K680-QxS Ragweed, Short <0.10 Class 0 - kU/L ?Q574-XmO Thistle, [place] Korean <0.10 Class 0 - kU/L ?Y284-JgN Pigweed, Common <0.10 Class 0 - kU/L ?I566-UeC Rough [place] <0.10 Class 0 - kU/L ?C862-CgN Mouse Urine <0.10 Class 0 - kU/L ?Notes: María Elena Asher 05/17/2023 09:44:21 AM > * Examination: ???General examination: ?General appearance:?pleasant, well-developed, well-nourished.?HEENT:?pupils equal, round, and reactive to light and accommodation, conjunctiva are clear bilaterally, no tenderness to palpation of the sinuses, TM's without evidence of acute infection, turbinates 2+ swollen and pale inferiorly bilaterally, clear rhinorrhea is present, no polyps noted, no septal perforation, posterior oropharynx is erythematous and cobblestoning is present, small tonsil stone also present on the R side, erythema on pharyngeal wall, no exudates, no tongue swelling, and uvula is midline.?Oral cavity:?normal, no lesions.?Neck, thyroid :?supple, non-tender, no anterior cervical lymphadenopathy.?Breasts :?not performed.?Heart:?RRR, S1-S2, no murmurs, no rubs, no gallops.?Lungs:?clear to auscultation and percussion in all lung fisher, no wheezes or crackles.?Abdomen:?soft, NT/ND, normal active bowel sounds.?Neurologic exam:?unremarkable.?Skin:?normal, no rash, dermatographism, urticaria, angioedema.?Peripheral pulses:?normal (2+) bilaterally.?Back:?normal.?Extremities:?normal ROM, no clubbing, no cyanosis, no edema.?Genitalia:?not performed.? Assessment: * Assessment: 1.?Other chronic sinusitis - J32.8 (Primary)?2.?Hypertrophy of nasal turbinates - J34.3?3.?Chronic rhinitis - J31.0?4.?Vitamin D deficiency, unspecified - E55.9?5.?Encounter for immunization - Z23? Plan: * Treatment: 2.?Hypertrophy of nasal turb inates? Continue levocetirizine tablet, 5 mg, 1 tab(s), orally, once a day (in the evening);?Continue montelukast tablet, 10 mg, 1 tab(s), orally, once a day.?? Notes: Mena is here today for evaluation of sinus symptoms and infections. She is currently on Zyrtec and Singulair. Due to high OOP she requested to check labs -ImmunoCAPS negative -Discussed treatment for GRETA vs. testing later this year when she has hit her deductible?? 3.?Chronic rhinitis? Notes: Await labs?? 4.?Vitamin D deficiency, uns pecified? Notes: Recommend starting 1-2 k of D3?? 5.?Encounter for immunizatio n? Notes: Hib administered today?? * Immunizations:? NOC PedvaxHIB : 0.5 mL (Route: Intramuscular) given by Anali Nascimento on Right Deltoid * Procedure Codes:?78407 HIBG8 427 DOC MEDS VERIFIED W/PT OR NHA8752 FLU IMMUNIZE ORDER/[id number] Single or Combination * Preventive Medicine:? ??Counseling:?Medication instruction:?Watch for side effects of prescribed medications, Nasal steroid/antihistamine instruction: avoid septum.?Education:?GENERAL EDUCATION: Our staff spent an additional 30 minutes in direct contact with the patient educating them on their current diagnoses and proper treatment and prevention of symptoms and the proper use of medications.?Education 2:?ARC EDUCATION: Our staff discussed the appropriate allergen avoidance measures and medication utilization including upper airway hygiene with daily nasal washes given the patient's clinical status and diagnoses. SCIT EDUCATION: Discussed allergy immunotherapy including the relative risks, benefits and alternatives to this treatment as an adjunctive measure to current therapy, Allergy Immunotherapy: Risks: bleeding, infection, allergic reaction, anaphylaxis = severe allergic reaction that can cause ; Benefits: reduced need for medications, improved symptoms, disease modification. Alternatives: watch/wait, change medication regimen, improve allergy avoidance measures, Our staff discussed the warning signs of anaphylaxis and the indications to use self-injectable epinephrine and seek urgent or emergent care.?Patient education material?sent to portal??Yes * Follow Up:?3 Months (Reason: Evaluation and Management,Laboratory Review) * Billing Information: * Visit Code:? 26634 Office Visit, Est Pt., Level 4. Modifiers: 25 * Procedure Codes:? 47758 NOC PedvaxHIB. G8427 DOC MEDS VERIFIED W/PT OR RE. G8482 FLU IMMUNIZE ORDER/ADMIN. 71981 Immunization Administration (one vaccine). * D APPLICATION ENGINEER Sign off status: Completed true * Provider:?María Elena Asher PA-C Date:? Generated for Ramón tineo/Reji/Alvin on:?04/21/2024 12:15 PM FIELD APPLICATION ENGINEER History and Physical Notes * HPI (History of Present Illness) Category Sub-Category Detail Notes Category Not es *Introduction I had the pleasure o f seeing Lisa Hermosillo a 63 year-old WF with a history of Stage 0 Breast Cancer (s/p lumpectomy), mild emphysema, and chronic sinusitis here today for allergy evaluation and management. Mena was alone for todays visit. Here at the recommendation of Dr. Dunham. Descriptors of her upper airways symptoms are outlined below. She has never undergone allergy skin testing or received allergy immunotherapy. Due to OOP declined skin testing and blood work was obtained. Here to review labs results. She reports chronic congestion, headaches, and intermittent vertigo for years. The last 2-3 years having sinus infections 2-3 times a year. Previously sent to ENT, s/p CT which was normal. Has been taking Zyrtec and Singulair for a few year years. Also taking a variety of vitamins without benefit. She works for [employer]. Used to work remotely until January when she was brought back into the office and noticed getting sick more reguarly. Her headaches are on the back of her head but also can be all over and are associated with dizziness and light sensitivity. No prior Neurology evaluation. 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 Seen by Pulmonary and found to have mild emphysema. She is a former smoker 2 pk-day x 20 years. Quit in 2004. She went through vestibular rehab and that made it worse. She has never had sinus surgery. I also sent her to see Dr. Altman of [facility]. Today, she reports no fevers, chills, night sweats or other constitutional symptoms Examination Category Sub-Category Detail Notes Category Not es General examination HEENT: pupils equal , round, and reactive to light and accommodation, conjunctiva are clear bilaterally, no tenderness to palpation of the sinuses, TM's without evidence of acute infection, turbinates 2+ swollen and pale inferiorly bilaterally, clear rhinorrhea is present, no polyps noted, no septal perforation, posterior oropharynx is erythematous and cobblestoning is present, small tonsil stone also present on the R side, erythema on pharyngeal wall, no exudates, no tongue swelling, and uvula is midline Neck, thyroid : supple, non-tender, no anterior cervical lymphadenopathy Heart: RRR, S1-S2, no murmu rs, no rubs, no gallops Lungs: clear to auscultatio n and percussion in all lung fisher, no wheezes or crackles Abdomen: soft, NT/ND, normal active bowel sounds Extremities: normal ROM, no clubb ing, no cyanosis, no edema General appearance: pleasant, well-devel oped, well-nourished Skin: normal, no rash, manuela matographism, urticaria, angioedema Neurologic exam: unremarkable Oral cavity: normal, no lesions Breasts : not performed Peripheral pulses: normal (2+) bilatera lly Back: normal Genitalia: not performed
--- OUTSIDE RECORDS SUMMARY | 2024-04-21 12:16 | XMS_ITS | Encounter Summary ---
Author Organization [facility] Address [address] [facility] [place] [address] Care Team Providers Care Egg And Spice Mixer Name Role Phone Unavailable Primary Care Provider Unavailabl e Encounter Details Date Type Department Care Team (Late st Contact Info) Description 05/26/2017 Hospital Outpatient Visit [facility] [address] [place] [id number] Laverne Thorpe, DO [address] [phone] Discharge Disposition: Home or Self Care Social [...]
--- OUTSIDE RECORDS SUMMARY | 2024-04-21 12:16 | XMS_ITS | Encounter Summary ---
Author Organization [facility] Address [address] [place] [address] Phone Care Team Providers Care Home Supervisor Name Role Phone Almita Smallwood MD Primary Care Provider + Almita Smallwood MD Unavailable [phone] Yuri Rocha MD Unavailable [phone] Encounter Details Date Type Department Care Team (Late st Contact Info) Description 08/09/2022 Orders Only [facility] Surgery [address] [facility] [address] 5th [place] [address] [place] [address] Linda Buckley MD PhD [address] [facility] [phone] [place] [address] History of partial mastectomy of left breast (Primary Dx) Social History Tobacco Use Types Packs/Day Years Used Date Smoking Tobacco: Former Cigarettes Q uit: 2005 Smokeless Tobacco: Never Alcohol Use Standard Drinks/Week [...] on file Legal Sex Female 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[employer] Gender Identity Not on file Sexual Orientation Not on file 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 file Not on file Not on file documented as of this encounter Plan of Treatment Not on file documented as of this encounter Visit Diagnoses Diagnosis History of partial mastectomy of left breast- Primary documented in this encounter Care Teams Home Supervisor Relationship Specialty Start Date End Date Almita Smallwood MD [address] [place] [address] PCP - General 04/17/20 02/14/23 Almita Smallwood MD [address] [place] [phone] Internal Medicine 04/17/20 [place] [address] [facility] [address] [place], [place] [id number] Surgeon General Surgery 04/07/22 documented as of this encounter
--- OUTSIDE RECORDS SUMMARY | 2024-04-21 12:16 | XMS_ITS | Encounter Summary ---
Author Organization [facility] Address [address] [place] [address] Care Team Providers Care Cold Roller Name Role Phone Almita Smallwood MD Unavailable [phone] Yuri Rocha MD Unavailable [phone] Boone Dunham DO Primary Care Provider [phone] Reason for Referral * MRI/CAT/PET Scan (Routine) - Closed Specialty Diagnoses / Procedures Referred By Tati campos Referred To Contact Radiology Diagnoses Dense breast tissue on mammogram Breast cancer screening, high risk patient Family history of breast cancer Procedures MRI Breast Bilateral W WO Contrast Snow Calabrese MD [address] [place] [address] Phone: tel: fax: [address] [phone] Referral ID Status Reason Start Date Expiration Date Visits Re quested Visits Authorized [id number] Closed 11/04/2022 12/04/2023 1 1 Reason for Visit * MRI/CAT/PET Scan (Routine) - Closed Specialty Diagnoses / Procedures Referred By Tati campos Referred To Contact Radiology Diagnoses Dense breast tissue on mammogram Breast cancer screening, high risk patient Family history of breast cancer Procedures MRI Breast Bilateral W WO Contrast Snow Calabrese MD [address] [place] [address] Phone: tel: fax: [address] [phone] Referral ID Status Reason Start Date Expiration Date Visits Re quested Visits Authorized [id number] Closed 11/04/2022 12/04/2023 1 1 Encounter Details Date Type Department Care Team (Latest Contact Info) Description 02/18/2023 9:44 AM CDT - 02/18/2023 11:59 PM CDT Hospital Encounter [address] [id number] Dense breast tissue on mammogram; Breast cancer screening, high risk patient; Family history of breast cancer Discharge Disposition: Discharge to home [...] on file 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 cyclobenzaprine (FLEXERIL) 5 mg tablet Take 5-10 mg by mouth 2 (two) times a day as needed 07/09/2021 HYDROcodone-aceta minophen (NORCO) 5-325 mg per tabletIndications :Pain Take 1 tablet by mouth every 4 (four) hours as needed for pain 20 tablet 04/07/2022 levocetirizine (XYZAL) 5 mg tablet Take 5 mg by mouth nightly 02/22/2020 montelukast (SINGULAIR) 10 mg tablet Take 1 tablet (10 mg total) by mouth nightly multivitamin tablet,chewable Take 2 Gum by mouth every morning tamoxifen (NOLVADEX) 20 mg tabletIndications :prevention of breast cancer in high risk women [...] Priority Date/Time Associated Diagnosis Comments MRI BREAST BILATERAL W WO CONTRAST Schedule Routine, Read Routine (OP Routine) 02/18/2023 10:38 AM CDT Dense breast tissue on mammogram Breast cancer screening, high risk patient Family history of breast cancer documented in this encounter Results * MRI Breast Bilateral W WO Contrast [...] 02/18/2023 11:24 AM - Electronically signed by ??Juancarlos Ballesteros M.D., MD: D: ??02/18/2023 11:24 AM T: ??02/18/2023 11:24 AM Report ID: [id number] Reading Location: ??[facility] Narrative 02/18/2023 11:24 AM [...] are unremarkable in appearance on limited evaluation. Snow Calabrese MD IMG MRI PROCEDURES Final Re sult documented in this encounter Visit Diagnoses Diagnosis Dense breast tissue on mammogram Breast cancer screening, high risk patient Screening mammogram for high-risk patient Family history of breast cancer Family history of malignant neoplasm of breast documented in this encounter Administered Medications Inactive Administered Medications - up to 3 most recent administrations Medication Order MAR Action Action Date Dose Rate Site gadoterate meglumine injection 15 mL 15 mL, intravenous, Once in imaging, contrast, Starting on 11/3/23 at 1008, For 1 dose Contrast Given 02/18/2023 10:08 AM CDT 15 mL Right Antecubital documented in this encounter Orders Medications Ordered That Gab ht Not Have Been Administered Count Last Ordered Date First Ordered Date gadoterate meglumine injection 15 mL 1 06/2022 documented in this encounter Care Teams Cold Roller Relationship Specialty [place] [address], [place] [id number] PCP - General Internal Medicine 02/15/23 12/08/23 Almita Smallwood MD [address] [place] [address] Internal Medicine 04/17/20 [place] [address] [address], [place] [id number] Surgeon General Surgery 04/07/22 documented as of this encounter
--- OUTSIDE RECORDS SUMMARY | 2024-04-21 12:16 | XMS_ITS | Encounter Summary ---
Author Organization [facility] Address [address] [place] [address] Phone Care Team Providers Care Cookie Mixer Helper Name Role Phone Almita Smallwood MD Unavailable [phone] Yuri Rocha MD Unavailable [phone] Angela Garza NP Primary Care Provider [phone] Encounter Details Date Type Department Care Team (Late st Contact Info) Description 02/15/2024 Orders Only [facility] Oncology [address] [facility] [address] [place] [address] Snow Calabrese MD [address] [place] [address] 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 breast; Breast neoplasm, Tis (LCIS), left; Family history of breast cancer Social History Tobacco Use Types [...] on file Legal Sex Female 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 CASE 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 Gender Identity Not on file Sexual Orientation Not on file 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 CLINICAL HISTORY ANALYSIS: BASED ON THE CLINICAL HISTORY PROVIDED, MODIFIED MEDICAL MANAGEMENT GUIDELINES IDENTIFIED NO VARIANT(S) OF UNCERTAIN SIGNIFICANCE (VUS) IDENTIFIED Blood specimen (specimen) (Blood, Venous) 02/15/2024 8:26 AM CDT 02/16/2024 3:16 PM CDT us Snow Calabrese MD LAB GENETIC TESTING Final R esult [facility] [address] [place] [address] documented in this encounter Visit Diagnoses Diagnosis 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 breast Breast neoplasm, Tis (LCIS), left Family history of breast cancer Family history of malignant neoplasm of breast documented in this encounter Care Teams Cookie Mixer Helper Relationship Specialty Start Date End Date Angela Garza NP [address] [place] [address] PCP - General Cardiovascular Disease 12/09/23 Almita Smallwood MD [address] [place] [address] Internal Medicine 04/17/20 [place] [address] [facility] [address] [address] Surgeon General Surgery 04/07/22 documented as of this encounter
--- OUTSIDE RECORDS SUMMARY | 2024-04-21 12:16 | XMS_ITS | Patient Health Record ---
Author Organization [facility] Address [address] [place] [address] Care Team Providers Care Payroll Services Analyst Name Role Phone Boone Dunham Primary Care Provider Unavailab María Elena Portillo Unavailable [phone] Angela Garza Unavailable Unavailable Dr. Mauri Altman Unavailable [phone] [facility], Provider Unavailable Unavailab le Allergies No Known Allergies Results Component Value Reference Range Notes -Tetanus/Diphtheria Ab Reviewed date:05/17/2023 01:16:27 PM Interpretation:Normal Performing Lab:[facility], [address] [place] [id number], Phone - [phone], Director - PhDNeil Notes/Report: Tetanus Antitoxoid IgG Ab 6.44 <0.10 IU/mL Interpretation: Non-Protective <0.10 Protective >=0.10 Results for this test are for research purposes only by the assay's carton forming machine helper. The performance characteristics of this product have not been established. Results should not be used as a diagnostic procedure without confirmation of the diagnosis by another medically established diagnostic product or procedure. Diphtheria Antitoxoid Ab 1.42 <0.10 IU/mL Interpretation: Non-Protective <0.10 Protective >=0.10 . For research use only. -Haemophilus influenzae B Ig G Reviewed date:05/17/2023 01:16:24 PM Interpretation:Abnormal Performing Lab:[facility], [address] [place] [id number], Phone - [phone], Director - PhDBCNeil Notes/Report: Haemophilus influenzae B IgG 0.17 NOTE: An anti-Hib level of 0.15 ug/mL is generally accepted as the minimum level for protection. Optimal protection post-vaccination requires a level greater than 1.00 ug/mL. -Pneumococcal Ab (23 Serotyp e) Reviewed date:05/17/2023 01:16:21 PM Interpretation:Normal Performing Lab:[facility], [address] [place] [address], [address], [place], [place] [id number], Phone - [phone], Director - PhDBCNeil Notes/Report: Pneumo Ab Type 1* >14.2 >1.3 ug/mL Pneumo Ab Type 3* 15.5 >1.3 ug/mL Pneumo Ab Type 4* >8.3 >1.3 ug/mL Pneumo Ab Type 8* 12.0 >1.3 ug/mL Pneumo Ab Type 9 (9N)* 4.8 >1.3 ug/mL Pneumo Ab Type 12 (12F)* >19.5 >1.3 ug/mL Pneumo Ab Type 14* 6.9 >1.3 ug/mL Pneumo Ab Type 17 (17F)* 1.3 >1.3 ug/mL Pneumo Ab Type 19 (19F)* >30.3 >1.3 ug/mL Pneumo Ab Type 2* >20.7 >1.3 ug/mL Pneumo Ab Type 20* >38.2 >1.3 ug/mL Pneumo Ab Type 22 (22F)* 12.7 >1.3 ug/mL Pneumo Ab Type 23 (23F)* >14.4 >1.3 ug/mL Pneumo Ab Type 26 (6B)* >41.4 >1.3 ug/mL Pneumo Ab Type 34 (10A)* >19.5 >1.3 ug/mL Pneumo Ab Type 43 (11A)* 5.7 >1.3 ug/mL Pneumo Ab Type 5* 8.5 >1.3 ug/mL Pneumo Ab Type 51 (7F)* 10.6 >1.3 ug/mL Pneumo Ab Type 54 (15B)* >22.0 >1.3 ug/mL Pneumo Ab Type 56 (18C)* >8.1 >1.3 ug/mL Pneumo Ab Type 57 (19A)* >33.6 >1.3 ug/mL Pneumo Ab Type 68 (9V)* 13.0 >1.3 ug/mL Pneumo Ab Type 70 (33F)* >10.1 >1.3 ug/mL *This test was developed and its performance characteristics determined by [facility]. It has not been cleared or approved by the U.S. Food and Drug Administration. FLAG Interpretation: A = Abnormal, H = High, L = Low -Immunoglobulins A/G/M, Qn, Ser Reviewed date:05/17/2023 01:16:18 PM Interpretation:Abnormal Performing Lab:[facility], [address] [place] [id number], Phone - [phone], Director - PhDBCNeil Notes/Report: Immunoglobulin G, Qn, Serum 3646 786-4419 mg/d L Immunoglobulin A, Qn, Serum 437 87-352 mg/dL Immunoglobulin M, Qn, Serum 99 26-217 mg/dL -Respiratory Allergens w/Tot al IgE Area 8 Reviewed date:05/17/2023 01:16:15 PM Interpretation:Normal Performing Lab:[facility], [address] [place] [id number], Phone - [phone], Director - PhDBCNeil Notes/Report: Class Description Levels of Specific IgE Class Description of Class ----- < 0.10 0 Negative 0.10 - 0.31 0/I Equivocal/Low 0.32 - 0.55 I Low 0.56 - 1.40 II Moderate 1.41 - 3.90 III High 3.91 - 19.00 IV Very High 19.01 - 100.00 V Very High >100.00 Very High Immunoglobulin E, Total 26 6-495 IU/mL U635-RsP D pteronyssinus <0.10 Class 0 kU/L B217-DqF D farinae <0.10 Class 0 kU/L P750-HvV Cat Dander <0.10 Class 0 kU/L T097-BmO Dog Dander <0.10 Class 0 kU/L K775-SiM [place] Grass <0.10 Class 0 kU/L G349-DjB Greg Grass <0.10 Class 0 kU/L C112-AzQ Cockroach, Serbian <0.10 Class 0 kU/L C065-AvC Penicillium chrysogen <0.10 Class 0 kU /L Z424-LhQ Cladosporium herbarum <0.10 Class 0 kU /L Z695-DzT Aspergillus fumigatus <0.10 Class 0 kU /L R532-NkE Alternaria alternata <0.10 Class 0 kU/ L B684-SxX Maple/Lee <0.10 Class 0 kU/L O789-TtB Rudolph, Mountain <0.10 Class 0 kU/L D904-WdO [place], White <0.10 Class 0 kU/L U484-WkH Elm, Citizen Of [place] <0.10 Class 0 kU/L R951-KpV Maple [employer] Hye <0.10 Class 0 kU/L J143-LwY [place] <0.10 Class 0 kU/L Q815-HoG Cl, White <0.10 Class 0 kU/L L780-CsX [place] <0.10 Class 0 kU/L E308-MvV Pecan, [place] <0.10 Class 0 kU/L F253-YzX [place] <0.10 Class 0 kU/L Y337-MdV Ragweed, Short <0.10 Class 0 kU/L Z512-IvR Thistle, Puerto [place]ican <0.10 Class 0 kU/L G790-AsI Pigweed, Common <0.10 Class 0 kU/L L598-VyD Rough [place] <0.10 Class 0 kU/L E726-FbA Mouse Urine <0.10 Class 0 kU/L -Vitamin D, 25-Hydroxy Reviewed date:05/17/2023 01:16:01 PM Interpretation:Abnormal Performing Lab:[facility], [address], [address] [id number], Phone - [phone], Director - PhDNede Notes/Report: Vitamin D, 25-Hydroxy 37.1 30.0-100.0 ng/mL Vitamin D deficiency has been defined by the [place] of Medicine and an Endocrine Society practice guideline as a level of serum 25-OH vitamin D less than 20 ng/mL (1,2). The Endocrine Society went on to further define vitamin D insufficiency as a level between 21 and 29 ng/mL (2). 1. IOM ([place] of Medicine). 2010. Dietary reference intakes for calcium and D. [place]: The National Academies Press. 2. Reshma MF, Amanda ARRIETA, Edel HUBBARD, et al. Evaluation, treatment, and prevention of vitamin D deficiency: an Endocrine Society clinical practice guideline. JCEM. 2010; 96(9):1911-30. -Testosterone,Free and Total Reviewed date:06/06/2023 03:34:46 PM Interpretation:Abnormal Performing Lab:[address] [id number], Phone - [phone], Director - [facility] Notes/Report: Testosterone 4 3-67 ng/dL Free Testosterone(Direct) 0.4 0.0-4.2 pg/mL -Vitamin B12 Reviewed date:05/30/2023 02:45:20 PM Interpretation:Normal Performing Lab:[address] [id number], Phone - [phone], Director - [facility] Notes/Report: Vitamin B12 424 304-9139 pg/mL -Triiodothyronine (T3),Free, Serum Reviewed date:05/30/2023 02:45:10 PM Interpretation:Normal Performing Lab:[address] [id number], Phone - [phone], Director - [facility] Notes/Report: Triiodothyronine (T3), Free 3.0 2.0-4.4 pg/mL -Thyroxine (T4) Free, Direct , S Reviewed date:05/30/2023 02:44:59 PM Interpretation:Normal Performing Lab:[address] [id number], Phone - [phone], Director - [facility] Notes/Report: T4,Free(Direct) 1.07 0.82-1.77 ng/dL FSH, Serum Reviewed date:05/30/2023 02:44:44 PM Interpretation:Abnormal Performing Lab:[address] [id number], Phone - [phone], Director - [facility] Notes/Report: FSH 107.0 25.8-134.8 mIU/mL Adult Female Range Follicular phase 3.5 - 12.5 Ovulation phase 4.7 - 21.5 Luteal phase 1.7 - 7.7 Postmenopausal 25.8 - 134.8 -Thyroid Peroxidase (TPO) Ab Reviewed date:05/30/2023 02:44:36 PM Interpretation:Normal Performing Lab:[address] [id number], Phone - [phone], Director - [facility] Notes/Report: Thyroid Peroxidase (TPO) Ab 18 0-34 IU/mL -TSH Reviewed date:05/30/2023 02:44:18 PM Interpretation:Normal Performing Lab:[address] [id number], Phone - [phone], Director - [facility] Notes/Report: TSH 2.750 0.450-4.500 uIU/mL -Estradiol Reviewed date:05/30/2023 02:44:04 PM Interpretation:Abnormal Performing Lab:[address] [id number], Phone - [phone], Director - [facility] Notes/Report: Estradiol 6.0 0.0-54.7 pg/mL Adult Female Range Follicular phase 12.5 - 166.0 Ovulation phase 85.8 - 498.0 Luteal phase 43.8 - 211.0 Postmenopausal <6.0 - 54.7 1st trimester 215.0 - >4300.0 Dustin ECLIA methodology Reason For Referral Reason Evaluate and treat Diagnosis 1 Cervicogenic headach e (G44.86) Diagnosis 2 Cervicalgia (M54.2) Diagnosis 3 Myalgia, unspecified site (M79.10) Referral Organization [facility] Referring Provider First Name Mauri Referring Provider Last Name Anupama Referring Provider Speciality Neurology Referred Provider Isiah TIMMONS PT Referral Priority Routine Medications Medication SIG (Take, Route, Frequency, Duration) Notes Start Date End Date Status Magnesium Carbonate *Please revi ew and pick correct strength-formulati on from Towi options. If intended option is not shown, discontinue and re-order from Quick Search* Active PROBIOTIC FORMULA (BACILLUS COAGULANS) - 1 CAP(S) ORALLY ONCE A DAY 4 dropper 60 drops *Please review for potential replacement for e-prescription and drug interaction check* Active Vitamin D3 10 MCG/ML 1 mL orally once a day Active Multivitamin - 1 tab(s) orally once a day Active Montelukast Sodium 10 MG 1 tab(s) orally once a day Active Levocetirizine Dihydrochloride 5 MG 1 tab(s) orally once a day (in the evening) Active RIZATRIPTAN 10 mg 1 tab(s) orally twice daily for 30 days As needed for migraine 05/26/2023 Active Amitriptyline HCl 10 MG 1 tab once daily at bedtime for 1 week, then 2 tabs daily at bedtime orally as directed for 30 days 05/26/2023 Active AMITRIPTYLINE 10 mg 1 tab once daily at bedtime for 1 week, then 2 tabs daily at bedtime orally as directed for 30 days 05/26/2023 Active Rizatriptan Benzoate 10 MG 1 tab(s) orally twice daily for 30 days 05/26/2023 Active MAGNESIUM CARBONATE Active VITAMIN D3 10 mcg/mL 1 mL orally once a day Active MONTELUKAST 10 mg 1 tab(s) orally once a day Active MULTIVITAMIN Multiple Vitamins 1 tab(s) orally once a day Active LEVOCETIRIZINE 5 mg 1 tab(s) orally once a day (in the evening) Active Immunizations Vaccine Route Administration Date Status Comme nts Influenza Unknown 03/03/2023 Administered Portal Infor mation NOC PedvaxHIB IM Intramuscular 06/09/2023 Administered NOC Pneumovax 23 Unknown 03/03/2023 Administered Portal Information NOC Prevnar 13 Unknown 03/03/2023 Administered Portal I nformation NOC Tdap Unknown 03/03/2023 Administered Portal Infor Bulb Social History Tobacco Use: Social History Observation Description Date Details (start date - stop date) Former Smoker NA - NA Smoking Smart Form: Question Answer Notes Are you a: former smoker Additional Findings:Tobacco User Heavy cigarette smoker (20-39 cigs/day) Additional Findings:Tobacco Non-User Ex-cigarett e smoker amount unknown Problems Problem Type SNOMED Code ICD Code Onset Dates Problem Status W/U Status Risk Notes Problem Vitamin D deficiency (17060570) Vitamin D deficiency, unspecified (E55.9) Active confirmed Problem Chronic migraine without aura, non-refractory (disorder) (326324651136625) Migraine without aura, not intractable, without status migrainosus (G43.009) Active confirmed Problem Drug induced headache (858835644900221) Drug-induced headache, not elsewhere classified, not intractable (G44.40) Active confirmed Problem Insomnia (732931263) Insomnia, unspecified (G47.00) Active confirmed Problem Chronic allergic conjunctivitis (81490451) Other chronic allergic conjunctivitis (H10.45) Active confirmed Problem Allergic rhinitis caused by pollen (disorder) (26074809) Allergic rhinitis due to pollen (J30.1) Active confirmed Problem Allergic rhinitis (30538790) Other allergic rhinitis (J30.89) Active confirmed Problem Chronic rhinitis (33148856) Chronic rhinitis (J31.0) Active confirmed Problem Chronic sinusitis (09226602) Other chronic sinusitis (J32.8) Active confirmed Problem Hypertrophy of nasal turbinates (92885709) Hypertrophy of nasal turbinates (J34.3) Active confirmed Problem Uncomplicated mild persistent asthma (019091344) Mild persistent asthma, uncomplicated (J45.30) Active confirmed Problem Uncomplicated moderate persistent asthma (703476303) Moderate persistent asthma, uncomplicated (J45.40) Active confirmed Problem Uncomplicated severe persistent asthma (132742007) Severe persistent asthma, uncomplicated (J45.50) Active confirmed Problem Cervicalgia (68633383) Cervicalgia (M54.2) Active confirmed Problem Menopause (826848517) Menopausal and female climacteric states (N95.1) Active confirmed Problem Vaccination given (355440045) Encounter for immunization (Z23) Active confirmed Problem Allergic rhinitis caused by animal hair and dander (173213940120982) Allergic rhinitis due to animal (cat) (dog) hair and dander (J30.81) Active confirmed Problem Chronic sinusitis (96050570) Chronic sinusitis, unspecified (J32.9) Active confirmed Problem Muscle pain (65580616) Myalgia, unspecified site (M79.10) Active confirmed Problem Cervicogenic headache (030842496) Cervicogenic headache (G44.86) Active confirmed Problem Chronic fatigue syndrome (disorder) (79537648) Chronic fatigue, unspecified (R53.82) Active confirmed Vital Signs Respiratory Rate 18 /min 05/26/2023 Blood pressure diastolic 80 mm Hg 06/09/2023 Oximetry 95 % 06/09/2023 Height 65.5 in 06/09/2023 Blood pressure systolic 116 mm Hg 06/09/2023 Weight 153.4 lbs 06/09/2023 BMI 25.14 kg/m2 06/09/2023 Encounters Encounter Location Date Provider Diagnosis [address] [address] 10/01/2023 Provider [facility] Hypertrophy of nasal turbinates J34.[address] [place] [address] [address] 05/12/2023 María Elena Young Hypertrophy of nasal turbinates J34.3 ; Other chronic sinusitis J32.8 ; Chronic rhinitis J31.0 and Vitamin D deficiency, unspecified E55.9 [address] [address] [address] 05/26/2023 Mauri Altman Migraine without aura, not intractable, without status migrainosus G43.009 ; Drug-induced headache, not elsewhere classified, not intractable G44.40 ; Chronic sinusitis, unspecified J32.9 ; Cervicogenic headache G44.86 ; Cervicalgia M54.2 ; Myalgia, unspecified site M79.10 ; Insomnia, unspecified G47.00 ; Menopausal and female climacteric states N95.1 and Chronic fatigue, unspecified R53.82 [address] [address] 06/09/2023 María Elena Young Hypertrophy of nasal turbinates J34.3 ; Other chronic sinusitis J32.8 ; Chronic rhinitis J31.0 ; Vitamin D deficiency, unspecified E55.9 and Encounter for immunization Z23 Assessments Encounter Date Diagnosis (ICD Code) Assessment Notes Treatment Notes Treatment Clinical Notes Section Notes 05/12/2023 Other chronic sinusitis (ICD-10 - J32.8) Given frequency of infection recommend checking labs to evaluate Cindys immune system + Vitamin D -Return in 1 month to discuss labs 05/12/2023 Hypertrophy of nasal turbinates (ICD-10 - J34.3) Mena is here today for evaluation of sinus symptoms and infections. She is currently on Zyrtec and Singulair. Due to high OOP I recommend checking ImmunoCAPS 05/26/2023 Migraine without aura, not intractable, without status migrainosus (ICD-10 - G43.009) -Abortive treatment plan: Trial of Rizatriptan 10 mg. -Preventive treatment plan: Amitriptyline 10 mg qHS x 1 wk, then 20 mg qHS.-Educated the patient on migraine lifestyle recommendations. I recommended the following measures: avoid known triggers of migraine, drink > 100 fluid ounces of non-caffeinated fluid daily, limit caffeine to 2 servings/day, sleep 7-8 hours/night and address any sleep concerns with us and report symptoms of snoring or fatigue; healthy management of stress; avoid treating headaches more than 2 days/week with abortive medication unless approved in treatment plan; can take Riboflavin 400 mg and Magnesium 500 mg daily as supplements; keep scheduled follow-up appointments Mixed headache pattern. There is migraine, cervicogenic headaches and likely sinus headaches. Multiple factors likely exacerbating migraine, including sinus symptoms, cervicogenic headaches and periscapular myofascial pain, sleep disturbance, and possibly menopause/hormo ne deficiencies. 05/26/2023 Drug-induced headache, not elsewhere classified, not intractable (ICD-10 - G44.40) Educated patient regarding medication overuse headaches. Advised to avoid taking NSAIDs or acetaminophen > 15 days/month, triptans or DHE > 10 days/month, butalbital > 10 days/month to avoid rebound headaches. Mixed headache pattern. There is migraine, cervicogenic headaches and likely sinus headaches. Multiple factors likely exacerbating migraine, including sinus symptoms, cervicogenic headaches and periscapular myofascial pain, sleep disturbance, and possibly menopause/hormo ne deficiencies. 06/09/2023 Other chronic sinusitis (ICD-10 - J32.8) [...] -Return in 3 months for E&M 06/09/2023 Hypertrophy of nasal turbinates (ICD-10 - J34.3) Mena is here today for evaluation of sinus symptoms and infections. She is currently on Zyrtec and Singulair. Due to high OOP she requested to check labs -ImmunoCAPS negative -Discussed treatment for GRETA vs. testing later this year when she has hit her deductible 10/01/2023 Hypertrophy of nasal turbinates (ICD-10 - J34.3) 06/09/2023 Chronic rhinitis (ICD-10 - J31.0) Await labs 05/26/2023 Chronic sinusitis, unspecified (ICD-10 - J32.9) Follow-up with Allergy testing at [facility]. Mixed headache pattern. There is migraine, cervicogenic headaches and likely sinus headaches. Multiple factors likely exacerbating migraine, including sinus symptoms, cervicogenic headaches and periscapular myofascial pain, sleep disturbance, and possibly menopause/hormo ne deficiencies. 05/12/2023 Chronic rhinitis (ICD-10 - J31.0) Await labs 05/12/2023 Vitamin D deficiency, unspecified (ICD-10 - E55.9) R/O, likely low given frequency of infection 05/26/2023 Cervicogenic headache (ICD-10 - G44.86) Recommend referral to [facility] in [place], [place]. Mixed headache pattern. There is migraine, cervicogenic headaches and likely sinus headaches. Multiple factors likely exacerbating migraine, including sinus symptoms, cervicogenic headaches and periscapular myofascial pain, sleep disturbance, and possibly menopause/hormo ne deficiencies. 06/09/2023 Vitamin D deficiency, unspecified (ICD-10 - E55.9) Recommend starting 1-2 k of D3 06/09/2023 Encounter for immunization (ICD-10 - Z23) Hib administered today 05/26/2023 Cervicalgia (ICD-10 - M54.2) Recommend referral to [facility] in [place]. Mixed headache pattern. There is migraine, cervicogenic headaches and likely sinus headaches. Multiple factors likely exacerbating migraine, including sinus symptoms, cervicogenic headaches and periscapular myofascial pain, sleep disturbance, and possibly menopause/hormo ne deficiencies. 05/26/2023 Myalgia, unspecified site (ICD-10 - M79.10) Recommend referral to [facility] in [place]. Mixed headache pattern. There is migraine, cervicogenic headaches and likely sinus headaches. Multiple factors likely exacerbating migraine, including sinus symptoms, cervicogenic headaches and periscapular myofascial pain, sleep disturbance, and possibly menopause/hormo ne deficiencies. 05/26/2023 Insomnia, unspecified (ICD-10 - G47.00) Hopefully amitriptyline will help this. Can also use melatonin 10 mg 1 hour before bedtime. Discussed sleep hygiene and stress reduction. Discussed how sleep disruption can affect headaches or migraine Mixed headache pattern. There is migraine, cervicogenic headaches and likely sinus headaches. Multiple factors likely exacerbating migraine, including sinus symptoms, cervicogenic headaches and periscapular myofascial pain, sleep disturbance, and possibly menopause/hormo ne deficiencies. 05/26/2023 Menopausal and female climacteric states (ICD-10 - N95.1) [facility]: TSH, fT4, fT3, TPO, B12, FSH, Estradiol, Free and Total Testosterone Mixed headache pattern. There is migraine, cervicogenic headaches and likely sinus headaches. Multiple factors likely exacerbating migraine, including sinus symptoms, cervicogenic headaches and periscapular myofascial pain, sleep disturbance, and possibly menopause/hormo ne deficiencies. 05/26/2023 Chronic fatigue, unspecified (ICD-10 - R53.82) [facility]: TSH, fT4, fT3, TPO, B12, FSH, Estradiol, Free and Total Testosterone Mixed headache pattern. There is migraine, cervicogenic headaches and likely sinus headaches. Multiple factors likely exacerbating migraine, including sinus symptoms, cervicogenic headaches and periscapular myofascial pain, sleep disturbance, and possibly menopause/hormo ne deficiencies. 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
--- OUTSIDE RECORDS SUMMARY | 2024-04-21 12:16 | XMS_ITS | Encounter Summary ---
Author Organization [facility] Address [address] [facility] [place] [address] Care Team Providers Care Fisheries Management Biologist Name Role Phone Almita Smallwood MD Primary Care Provider + Encounter Details Date Type Department Care Team (Late st Contact Info) Description 11/09/2018 Lab Requisition [facility] Care Pathology Lab [address] [place] [address] Jorge Luis Tompkins MD [address] [id number] Social History Tobacco Use Types Packs/Day Years Used Date Smoking Tobacco: Never Assessed Sex and Gender Information Value Date Recorded Sex Assigned at Not on file Gender Identity Not on file Sexual Orientation Not on file documented as of this encounter Plan of Treatment Not on file documented as of this encounter Procedures Procedure Name Priority Date/Time Associated Diagnosis Comments PATHOLOGY TISSUE Routine 11/07/2018 8:00 AM CDT documented in this encounter Results * PATHOLOGY TISSUE (11/07/2018 8:00 AM CDT) Case Report Surgical Pathology Report ? Case: [id number] ? Authorizing Provider: ??Jorge Luis Tompkins MD ?Collected: ? 11/07/2018 08:00 AM ? Pathologist: ? Linda Ring MD ?? Received: ?11/09/2018 10:42 AM ? Specimen: ?Lymph Node Biopsy, [id number] ? 11/10/2018 4:54 PM [facility] PATHOLOGY LAB Final Diagnosis Lymph node, right axilla, excisional biopsy: - Benign lymph node. - No evidence of malignancy. - See description. 11/10/2018 4:54 PM [facility] PATH[facility] LAB Microscopic Description and Comment Review [...] is performed on block A2 in the [facility] Department of Pathology with appropriately reactive controls. [...] infiltrate in the node. The report from [facility] describing an atypical lymphoid proliferation on needle core biopsy most likely represents sampling of primary follicles rather than a lymphoproliferative disorder; however, those slides are not provided for review in conjunction with this case. Clinical correlation is advised. KR 11/10/2018 4:54 PM CDT [facility] PATHOLOGY LAB Clinical History 58 year old woman presents with right axillary lymphadenopathy. History of ductal carcinoma in situ. 11/10/2018 4:54 PM T [facility] PATHOLOGY LAB Materials Received Received are 2 slides and 2 blocks labeled as [id number] along with the outside pathology report. [place] [address]. All materials are returned to the referring institution, along with a copy of our final report. 11/10/2018 4:54 PM T [facility] PATHOLOGY LAB Disclaimer The performance characteristics of all immunohistochemical and indirect immunofluorescence stains (if any) cited in this report were determined by the Histopathology Laboratory of [facility]. Some of these tests were developed [...] interpretation of this case is performed by [facility] at [facility], [address] [place] [address]. 11/10/2018 4:54 PM T [facility] PATHOLOGY LAB Embedded Images 11/10/2018 4:54 PM CDT [facility] PATHOLOGY LAB Pathology/Cytolo gy BIOPSY OF LYMPH NODE / Unknown 11/07/2018 8:00 AM CDT 11/09/2018 10:42 AM CDT Jorge Luis Tompkins MD LAB - PATHOLOGY/CYTO LOGY ORDERABLES [facility] PATHOLOGY LAB [address] [place] [address], [facility] [phone] documented in this encounter Visit Diagnoses Not on filedocumented in this encounter Care Teams Fisheries Management Biologist Relationship Specialty Start Date End Date Almita Smallwood MD [address] [place] [address] PCP - General Internal Medicine 10/16/18 documented as of this encounter
--- OUTSIDE RECORDS SUMMARY | 2024-04-21 12:16 | XMS_ITS ---
Author Organization [facility] Address [address] [place] [address] Care Team Providers Care Medical Biller/Coder Name Role Phone ElizabethBoone bedoya Primary Care Provider Unavailab le María Elena Asher Unavailable [phone] Angela Garza Unavailable Unavailable [employer], Provider Unavailable Unavailab le [facility] Conversion Encounter Medications Medication SIG (Take, Route, Frequency, Duration) Notes Start Date End Date Status PROBIOTIC FORMULA (BACILLUS COAGULANS) - 1 CAP(S) ORALLY ONCE A DAY 4 dropper 60 drops *Please review for potential replacement for e-prescription and drug interaction check* Active Vitamin D3 10 MCG/ML 1 mL orally once a day Active Montelukast Sodium 10 MG 1 tab(s) orally once a day Active Amitriptyline HCl 10 MG 1 tab once daily at bedtime for 1 week, then 2 tabs daily at bedtime orally as directed for 30 days 05/26/2023 Active Rizatriptan Benzoate 10 MG 1 tab(s) orally twice daily for 30 days 05/26/2023 Active Magnesium Carbonate *Please revi ew and pick correct [facility]. If intended option is not shown, discontinue and re-order from Quick Search* Active Multivitamin - 1 tab(s) orally once a day Active Levocetirizine Dihydrochloride 5 MG 1 tab(s) orally once a day (in the evening) Active Encounters Encounter Location Date Provider Diagnosis [facility] [address] [place] [address] 10/01/2023 Provider Edward Hypertrophy of nasal turbinates J34.3 Assessments Encounter Date Diagnosis (ICD Code) Assessment Notes Treatment Notes Treatment Clinical Notes Section Notes 10/01/2023 Hypertrophy of nasal turbinates (ICD-10 - J34.3) Plan Of Treatment Medication Medication Name Sig Start Date Stop Date Notes Montelukast Sodium 10 MG 1 tab(s) orally once a day Levocetirizine Dihydrochlori de 5 MG 1 tab(s) orally once a day (in the evening) Progress Notes * NATEAngeline TAYLORnoraaDOB:[birth year] (64 yo F)Acc No.[id number]:10/01/2023 Patient:?Lisa HERMOSILLO Provider:?Provider Álvaro :1960???Age:63 Y???Sex:Female D ate:10/01/2023 Address:[address] [place], [place] [id number] Pcp:Boone Dunham Subjective: * Chief Complaints: * ???1. Multum To qcuespan Con version Encounter. * Medical History:? * Medications:?Taking Magnesiu m Carbonate , Notes to Pharmacist: *Please review and pick correct strength-formulation from qcuespan options. If intended option is not shown, discontinue and re-order from Quick Search*, Taking Multivitamin - Tablet 1 tab(s) orally once a day , Taking Vitamin D3 10 MCG/ML Liquid 1 mL orally once a day , Taking PROBIOTIC FORMULA (BACILLUS COAGULANS) - CAPSULE 1 CAP(S) ORALLY ONCE A DAY , Notes to Pharmacist: 4 dropper 60 drops *Please review for potential replacement for e-prescription and drug interaction check*, Taking Rizatriptan Benzoate 10 MG Tablet 1 tab(s) orally twice daily , Taking Amitriptyline HCl 10 MG Tablet 1 tab once daily at bedtime for 1 week, then 2 tabs daily at bedtime orally as directed Objective: * Vitals:? Assessment: * Assessment: 1.?Hypertrophy of nasal turb inates - J34.3??? Plan: * Treatment: * Billing Information: * Visit Code:? * Procedure Codes:? * Electronic signature of Tomer Leon on 04/21/2024 at 12:15 PM [employer] Sign off status: Pending * Provider:?Provider Migration Date:?09/30 Generated for Ramón tineo/Reji/Alvin on:?04/21/2024 12:15 PM [employer]
--- OUTSIDE RECORDS SUMMARY | 2024-04-21 12:17 | XMS_ITS | Encounter Summary ---
Author Organization [facility] Address [address] [place] [address] Care Team Providers Care Forming Operator Name Role Phone Almita Smallwood MD Primary Care Provider + Almita Smallwood MD Unavailable [phone] Jacek Laura MD Unavailable Encounter Details Date Type Department Care Team (Late st Contact Info) Description 06/11/2021 11:07 AM HOOK UP Anesthesia Event [facility] Operating Room [address] [place] [address] [place] [address] [facility] [address] [place] [address] Marcelino Xiao MD [address] [place] [address] Anesthesia Record Procedure Summary Procedure Name Responsible Anesthesiologist Anesthesia Start Time Anesthesia Stop Time DILATION AND CURETTAGE/HYSTEROSC OPY (Uterus) Blanca Chan MD 06/11/21 1107 06/11/21 1200 Events Date Time Event Comment 06/11/2021 1025 1105 In Room 1107 An Start 1108 An Start Data 1113 An Induction The patient was reevaluated immediately before moderate or deep sedation use and before anesthesia induction. 1114 An Intubation 1114 Anesthesia Ready 1127 Proc Start 1140 Local injected by surgeon 1150 Proc Fin 1152 An Extubation 1154 an stop data 1154 Out of Room 1200 An Stop 1200 Handoff to RN I completed my handoff to the receiving nurse during which we: 1. Patient identified 2. Responsible provider identified 3. Pertinent medical history reviewed 4. Procedure type and surgical course discussed 5. Intraoperative anesthetic management and any significant issues discussed 6. Expectations and concerns for postop period discussed 7. Questions solicited from receiving nurse 8. Patient disposition at the time of handoff: No value filed. Meds Name Total midazolam 2 mg fentaNYL 100 mcg lidocaine (CARDIAC) syringe 2 % 50 mg propofol 150 mg ondansetron 4 mg glycopyrrolate 0.2 mg ceFAZolin (ANCEF) 1 gram/10 mL in steril e water (premix) 2,000 mg 2,000 mg metroNIDAZOLE (FLAGYL) 500 mg/100 mL in sodium chloride (premix) 500 mg 500 mg dexamethasone 4 mg/ml 4 mg phenylephrine syringe 100 mcg/ml 100 mcg Lactated Ringer's (LR) infusion 400 mL * Agents Name O2 Air Sevoflurane Inspired Sevoflurane * Blood No blood administrations on file. Lines, Drains, and Airways Type Details Placement Removal Peripheral IV Placement Date: 06/11/21; Placement Time: 0948; Change Due: 06/15/21; Catheter Size: 20 G; Orientation: Left, Posterior; Location: Hand; Site Prep: Chlorhexidine; Inserted by: lb; Insertion Attempts: 1; Patient Tolerance: Tolerated well; Removal Date: 06/11/21; Removal Time: 1243 06/11/21 0948 by Beba Severino RN 06/11/21 1243 by Annmarie Amador RN Supraglottic Airway Placement Date: 06/11/21; Placement Time: 1114 (created via procedure documentation); Mask Ventilation: 0; Size: 4; Insertion Attempts: 1; Removal Date: 06/11/21; Removal Time: 1152 06/11/21 1114 by Gayle Garibay CRNA 06/11/21 1152 by Gayle Garibay CRNA RETIRED Surgical Site 06/11/21; 1130; Vagina; 03/20/24 (Retired LDA, Removed/Completed by [facility] with LDA Utility); 1213 (Retired LDA, Removed/Completed by [facility] with LDA Utility) 06/11/21 1130 by Chris Rodriguez RN 03/20/24 1213 by Discharge Provider, Automatic documented in this encounter Social History Tobacco Use Types Packs/Day Years Used Date Smoking Tobacco: Former Cigarettes Q uit: 2004 Smokeless Tobacco: Never Alcohol Use Standard Drinks/Week Comments Yes 0 (1 standard drink = 0.6 oz pur e alcohol) rarely PHQ-2 Answer Date Recorded PHQ-2 Total Score (If total score is 3 or more points, staff should administer the PHQ-9) 0 04/16/2020 Comments No Sex and Gender Information Value Date Recorded Sex Assigned at Not on file Legal Sex Female 3:38 AM HOOK UP Gender Identity Not on file Sexual Orientation Not on file 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F) Resp 14 SpO2 99% Anesthesia Post Evaluation Patient location during evaluation: PACU Patient participation: complete - patient participated Level of consciousness: fully awake Pain score: 0 Pain management: adequate Airway patency: adequate Evidence of recall: no Cardiovascular status: acceptable Respiratory status: room air Hydration status: acceptable Pt is: normothermic Nausea/Vomiting status: none No complications documented. UP * Anesthesia Procedure Notes - Gayle Garibay CRNA - 06/11/2021 11:23 AM CSTAssociated Order(s): Airway Airway Patient location: OR Urgency: elective Date/time: 06/11/2021 11:14 AM Indications for airway management: anesthesia Difficult airway: no Staff: Placed by: IT SECURITY CONSULTING DIRECTOR: Gayle Garibay CRNA Emergent airway documentation: Risks and benefits discussed: yes Consent obtained: yes Consent given by: patient Airway prep: Preoxygenated: yes Mask difficulty assessment: 0 - not attempted Spontaneous ventilation during airway: absent Sedation level during airway: GA Final airway details: Final airway type: supraglottic airway Final supraglottic airway: IGel SGA size: 4 Number of attempts: 1 UP * Anesthesia Preprocedure Evaluation - Russell Gilliland MD - 05/26/2021 10:02 AM CST Images from the original note were not included. Anesthesia Evaluation Lisa Hermosillo is a 61 y.o. female Procedure(s): DILATION AND CURETTAGE/HYSTEROSCOPY/ 60 min * No Diagnosis Codes entered * HISTORY HPI A very nice healthy lady with an incidentally noted thickened endometrium and a past history of successfully treated ductal breast ca. 61 yrs. bmi 27. No previous problems with anesthesia. (no previous anesthesia records available) breast lumpectomy 2017. Tobacco in distant past. Currently mildly reactive airways with daily singulair inhaler use. Past Medical History Information obtained from: patient and chart. Neurological Neuro/Psych system: negative Cardiovascular Cardiac system: negative Respiratory + Asthma Dyspnea frequency: 2 days/week or less. Rescue inhaler use: never. Pertinent negatives: no history of oral steroid use and no prior intubation for respiratory failuredue to asthma Hepatic / Heme Hepatic/Heme system: negative Gastrointestinal GI system: negative Renal / Renal/ system: negative Musculoskeletal/Pain Musculoskeletal/Pain system: negative Endocrine / Other + Cancer history- in remission. Cancer type: intra ductal breast. Functional Capacity Functional capacity: 6-10 METs Patient Active Problem List Diagnosis ??? 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 breast Past Medical History: Diagnosis Date ??? Breast cancer (CMS/HCC) (HCC) Past Surgical History: Procedure Laterality Date ??? BREAST LUMPECTOMY Left 11/2016 For Stage 0 breast CA at [facility] in [place], [place]. No chemorx or XRT, only Tamoxifen. ??? TUBAL LIGATION OB History 3 Para 2 Term 2 AB 1 Living 2 SAB 0 IAB 1 Ectopic 0 Multiple Live Births 2 No Known Allergies Taking? Last Dose Start Date End Date Provider albuterol HFA (PROVENTIL HFA,VENTOLIN HFA,PROAIR HFA) 90 mcg/actuation inhaler 02/15/20 -- Cande Diego MD collagen, hydrolysate, bovine, (COLLAGEN, HYDR, BOVINE,, BULK, MISC) -- -- Cande Diego MD pkdzczbdaxf-gmeitkkjf-gfqrkgid (TRELEGY ELLIPTA) 100-62.5-25 mcg inhaler 04/16/20 -- Cande Diego MD levocetirizine (XYZAL) 5 mg tablet 02/22/20 -- Cande Diego MD montelukast (SINGULAIR) 10 mg tablet 06/20/20 06/15/21 Cande Diego MD multivitamin liquid 06/04/19 -- Cande Diego MD omeprazole (PriLOSEC) 20 mg capsule 04/10/20 -- Cande Diego MD tamoxifen (NOLVADEX) 20 mg tablet 02/22/20 -- Cande Diego MD No current facility-administered medications for this encounter. Current Outpatient Medications: ??? albuterol HFA (PROVENTIL HFA,VENTOLIN HFA,PROAIR HFA) 90 mcg/actuation inhaler ??? collagen, hydrolysate, bovine, (COLLAGEN, HYDR, BOVINE,, BULK, MISC) ??? xdrprjdpote-xwzvtvjed-eikxnlpo (TRELEGY ELLIPTA) 100-62.5-25 mcg inhaler ??? levocetirizine (XYZAL) 5 mg tablet ??? montelukast (SINGULAIR) 10 mg tablet ??? multivitamin liquid ??? omeprazole (PriLOSEC) 20 mg capsule ??? tamoxifen (NOLVADEX) 20 mg tablet Social History Tobacco Use Smoking Status Former Smoker ??? Quit date: 2004 ??? Years since quittin.1 Smokeless Tobacco Never Used Substance and Sexual Activity Alcohol Use Yes Comment: rarely Substance and Sexual Activity Drug Use Never Family History Problem Relation Age of Onset ??? Other (Colon cancer at 49 yo, at 63 yo.) Mother ??? Other (Colon cancer at 55, survived) Sister There were no vitals filed for this visit. PT: No results found for requested labs within last 720 hours. INR: No results found for requested labs within last 720 hours. APTT: No results found for requested labs within last 720 hours. Hgb A1C: No results found for requested labs within last 720 hours. CBC RBC: No results found for requested labs within last 720 hours. RDW: No results found for requested labs within last 720 hours. MCHC: No results found for requested labs within last 720 hours. MCH: No results found for requested labs within last 720 hours. MCV: No results found for requested labs within last 720 hours. Hct: No results found for requested labs within last 720 hours. Hgb: No results found for requested labs within last 720 hours. WBC: No results found for requested labs within last 720 hours. MPV: No results found for requested labs within last 720 hours. Platelets: No results found for requested labs within last 720 hours. RDW CV: No results found for requested labs within last 720 hours. RDW Sd: No results found for requested labs within last 720 hours. BMP Glucose: No results found for requested labs within last 720 hours. Calcium: No results found for requested labs within last 720 hours. Sodium: No results found for requested labs within last 720 hours. Potassium: No results found for requested labs within last 720 hours. CO2: No results found for requested labs within last 720 hours. Chloride: No results found for requested labs within last 720 hours. BUN: No results found for requested labs within last 720 hours. Creatinine: No results found for requested labs within last 720 hours. DOS Physical Exam Attestation: This PAT evaluation 06/11/2021. Airway Exam: Mallampati: I Cervical ROM: FROM TM distance: normal Cardiovascular Exam: Rate: regular Rhythm: regular Pulmonary Exam: LCTA, bilat Dental Exam: Appears intact Skin Exam: Skin is warm. Additional comments: Airway looks satisfactory. Anesthesia Plan ASA 2 My patient is approved for the Anesthesia Controlled Medication protocol when under care of a IT SECURITY CONSULTING DIRECTOR Planned anesthesia: General Team communication plan: LMA Induction: Induction: intravenous. Postoperative Plan: No plan for postoperative opioid use. No postoperative mechanical ventilation intended. Patient's planned disposition post procedure is Outpatient. No trial extubation planned. Informed Consent: Discussed plan with attending, IT SECURITY CONSULTING DIRECTOR and AA. Anesthesia plan and risks discussed with patient. Consent and Attending signature: I and/or my designee have discussed the anesthesia plan, benefits, possible alternatives, parental presence at time of induction (if indicated), and clinically relevant risks that may include dental injury, unintentional awareness, and/or other complications. The patient and/or parent/legal guardian understand, and agree to proceed. All questions answered. UP UP documented in this encounter Plan of Treatment Not on file documented as of this encounter Procedures Procedure Name Priority Date/Time Associated Diagnosis Comments KS AN ELECTIVE SUPRAGLOTTIC AIRWAY Routine 06/11/2021 11:14 AM HOOK UP documented in this encounter Results * KS AN ELECTIVE SUPRAGLOTTIC AIRWAY (06/11/2021 11:14 AM HOOK UP) Narrative Gayle Garibay CRNA - 06/11/2021 11:14 AM HOOK UP Gayle Garibay CRNA ? 06/11/2021 11:23 AM Airway Patient location: OR Urgency: elective Date/time: 06/11/2021 11:14 AM Indications for airway management: anesthesia Difficult airway: no Staff: Placed by: IT SECURITY CONSULTING DIRECTOR: Gayle Garibay CRNA Emergent airway documentation: Risks and benefits discussed: yes Consent obtained: yes Consent given by: patient Airway prep: Preoxygenated: yes Mask difficulty assessment: 0 - not attempted Spontaneous ventilation during airway: absent Sedation level during airway: GA Final airway details: Final airway type: supraglottic airway Final supraglottic airway: IGel SGA size: 4 Number of attempts: 1 Blanca Varela MD ANESTHESIA ORDERABLES F inal Result documented in this encounter Visit Diagnoses Not on filedocumented in this encounter Administered Medications Inactive Administered Medications - up to 3 most recent administrations Medication Order MAR Action Action Date Dose Rate Site ceFAZolin (ANCEF) 1 gram/10 mL in sterile water (premix) 2,000 mg 2,000 mg, intravenous, at 400 mL/hr, Administer over 3 Minutes, Once, On Kathleen 06/11/21 at 1000, For 1 dose, Pre-Op, Administer within 60 minutes of infusion., Indications: Prophylaxis, SurgicalIndications:Prophylaxis , Surgical Given 06/11/2021 11:18 AM HOOK UP 2,000 mg dexAMETHasone (DECADRON) 4 mg/mL injection intravenous, Administer over 2 Minutes, As needed, Starting on Kathleen 06/11/21 at 1118, Anesthesia Intra-op Given 06/11/2021 11:18 AM HOOK UP 4 mg fentaNYL (SUBLIMAZE) preservative free injection intravenous, As needed, Starting on Kathleen 06/11/21 at 1113, Anesthesia Intra-op Given 06/11/2021 11:13 AM HOOK UP 100 mcg glycopyrrolate (ROBINUL) injection intravenous, Administer over 1 Minutes, As needed, Starting on Kathleen 06/11/21 at 1113, Anesthesia Intra-op Given 06/11/2021 11:13 AM HOOK UP 0.2 mg Lactated Ringer's (LR) infusion 125 mL/hr, intravenous, Continuous, Starting on Kathleen 06/11/21 at 1000, Pre-Op, May discontinue when discharge criteria met. Restarted 06/11/2021 11:50 AM HOOK UP Rate/Dose Verify 06/11/2021 11:07 AM HOOK UP 50 mL/ hr New Bag 06/11/2021 9:46 AM HOOK UP 125 mL/hr 125 mL/hr lidocaine (cardiac) (XYLOCAINE) preservative free injection intravenous, As needed, Starting on Kathleen 06/11/21 at 1113, Anesthesia Intra-op, Indications: Ventricular ArrhythmiasIndications:Ventricular Arrhythmias Given 06/11/2021 11:13 AM HOOK UP 50 mg metroNIDAZOLE (FLAGYL) 500 mg/100 mL in sodium chloride (premix) 500 mg 500 mg, intravenous, at 200 mL/hr, Administer over 30 Minutes, Once, On Kathleen 06/11/21 at 1000, For 1 dose, Pre-Op, Administer within 60 minutes of incision. Room temperature only, Indications: Prophylaxis, SurgicalIndications:Prophylaxis, Surgical Given 06/11/2021 11:19 AM HOOK UP 5 00 mg midazolam (VERSED) 1 mg/mL preservative free injection intravenous, Administer over 2 Minutes, As needed, Starting on Kathleen 06/11/21 at 1113, Anesthesia Intra-op Given 06/11/2021 11:13 AM HOOK UP 2 mg ondansetron (ZOFRAN) injection intravenous, Administer over 2 Minutes, As needed, Starting on Kathleen 06/11/21 at 1119, Anesthesia Intra-op Given 06/11/2021 11:19 AM HOOK UP 4 mg phenylephrine (JACOB-SYNEPHRINE) 1 mg/10 mL (100 mcg/mL) in sodium chloride 0.9% (premix) intravenous, As needed, Starting on Kathleen 06/11/21 at 1143, Anesthesia Intra-op Given 06/11/2021 11:43 AM HOOK UP 100 mc g propofoL (DIPRIVAN) 10 mg/mL IV intravenous, As needed, Starting on Kathleen 06/11/21 at 1113, Anesthesia Intra-op Given 06/11/2021 11:13 AM HOOK UP 150 mg documented in this encounter Care Teams Forming Operator Relationship Specialty Start Date End Date Almita Smallwood MD [address] [place] [address] PCP - General 04/17/20 02/14/23 Almita Smallwood MD [address] [place] [address] Internal Medicine 04/17/20 Jacek Laura MD [address] [id number] Referring Physician Hematology 06/02/21 06/28/22 documented as of this encounter
--- OUTSIDE RECORDS SUMMARY | 2024-04-21 12:17 | XMS_ITS | Encounter Summary ---
Author Organization [facility] Address [address] [place] [address] Care Team Providers Care Medical Planner Name Role Phone Almita Smallwood MD Primary Care Provider + Almita Smallwood MD Unavailable [phone] Jacek Laura MD Unavailable [phone] Encounter Details Date Type Department Care Team (Late st Contact Info) Description 06/15/2021 Telephone [facility] Gynecology at [facility] [address] [facility] [address] [place] [address] [place]mit[place]band[place] [id number] [place] [address] [address] [place] [address] Social History Tobacco Use Types Packs/Day Years [...] on file Legal Sex Female 3:38 AM OVEN HEATER HELPER Gender Identity Not on file Sexual Orientation Not on file 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 I called and spoke with the patient. I recommended that she start taking Metamucil (generic okay) twice a day from now on (1/day if adequate for regular bowel movements). To help her havea bowel movement within the next 12-24 hours, I recommended she take either OTC MiraLax or magnesium citrate. HEATER HELPER * Telephone Encounter - Mee Winkler MA - 06/15/2021 2:54 PM CST Spoke with pt who states she is doing well. No pain nor pressure. Pt has not been having regular bowel movements. It was suggested that pt start taking stool softener and or metamucil. Pt is requesting script. HEATER HELPER * Telephone Encounter - Almita Obando MD - 06/15/2021 1:15 PM CST Mee, please call this postop patient to check on her. She had a hysteroscopy with D&C done last (06/11/21) without complication. Pathology shows a benign inactive endometrium (normal). She has a postop visit scheduled for 06/26/21. HEATER HELPER documented in this encounter Plan of Treatment Not on file documented as of this encounter Visit Diagnoses Not on filedocumented in this encounter Care Teams Medical Planner Relationship Specialty Start Date End Date Almita Smallwood MD [address] [place] [address] PCP - General 04/17/20 02/14/23 Almita Smallwood MD [address] [place] [address] Internal Medicine 04/17/20 Jacek Laura MD [address] [phone] Referring Physician Hematology 06/02/21 06/28/22 documented as of this encounter
--- OUTSIDE RECORDS SUMMARY | 2024-04-21 12:17 | XMS_ITS | Encounter Summary ---
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 us Not In File Miscellaneous IMG MAMMO PROCEDURES F inal Result [facility] documented in this encounter Visit Diagnoses Not on filedocumented in this encounter Care Teams Station Captain Relationship Specialty Start Date End Date Almita Smallwood MD [address] [place] [address] PCP - General 04/17/20 02/14/23 Almita Smallwood MD [address] [place] [address] Internal Medicine 04/17/20 Jacek Laura MD [address] [phone] Referring Physician Hematology 06/02/21 06/28/22 documented as of this encounter
--- OUTSIDE RECORDS SUMMARY | 2024-04-21 12:17 | XMS_ITS | Encounter Summary ---
Author Organization [facility] Healthcare Address [address] [place] [address] Care Team Providers Care Boom Tender Name Role Phone Wolfgang Smallwood MD Primary Care Provider + Wolfgang Smallwood MD Unavailable [phone] Jacek Laura MD Unavailable [phone] Reason for Referral * Diagnostic Imaging (Routine) - Closed Specialty Diagnoses / Procedures Referred By Tati campos Referred To Contact Diagnoses Screening mammogram, encounter for Procedures Screening [place] [address] [place] [address] Phone: tel: fax: [facility] Referral ID Status Reason Start Date Expiration Date Visits Re quested Visits Authorized [id number] Closed 04/29/2021 05/29/2022 1 1 RELATIONS PROFESSOR Reason for Visit * Diagnostic Imaging (Routine) - Closed Specialty Diagnoses / Procedures Referred By Tati campos Referred To Contact Diagnoses Screening mammogram, encounter for Procedures Screening [place] [address] [place] [address] Phone: tel: fax: [facility] Referral ID Status Reason Start Date Expiration Date Visits Re quested Visits Authorized [id number] Closed 04/29/2021 05/29/2022 1 1 Encounter Details Date Type Department Care Team (Late st Contact Info) Description 06/25/2021 7:54 AM RACE RELATIONS PROFESSOR - 06/25/2021 11:59 PM RACE RELATIONS PROFESSOR Hospital Encounter [facility] [address] [place] [address] [place] [address] [address] Screening mammogram, encounter for Discharge Disposition: Discharge to home or self [...] 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 levocetirizine (XYZAL) 5 mg tablet Take 5 mg by mouth nightly 02/22/2020 albuterol HFA (PROVENTIL HFA,VENTOLIN HFA,PROAIR HFA) 90 mcg/actuation inhaler Inhale 2 puffs every 4 hours as needed 02/15/2020 06/29/2022 fluticasone-umecl idin-vilanter (TRELEGY ELLIPTA) 100-62.5-25 mcg inhaler Inhale 1 puff daily 04/16/2020 06/29/2022 montelukast (SINGULAIR) 10 mg tablet Take 10 mg by mouth nightly 06/20/2020 04/06/2022 multivitamin liquid Take 6 each by mouth daily 06/04/2019 04/06/2022 naproxen (NAPROSYN) 500 mg tablet Take 1 tablet (500 mg total) by mouth 2 (two) times a day as needed for pain (pain) 60 tablet 06/11/2021 04/06/2022 documented as of this encounter Discharge Disposition Disposition Code Departure Means Destination Discharge to home or self care documented in this encounter Plan of Treatment Not on file documented as of this encounter Procedures Procedure Name Priority Date/Time Associated Diagnosis Comments SCREENING MAMMOGRAM BILATERAL W CHRIS Schedule Routine, Read Routine (OP Routine) 06/25/2021 8:24 AM RACE RELATIONS PROFESSOR Screening mammogram, encounter for documented in this encounter Results * Screening Mammogram Bilateral W Chris (06/25/2021 8:24 AM RACE RELATIONS PROFESSOR) Anatomical Region Laterality Modality Breast Bilateral Mammography 07/03/2021 11:0 3 AM CDT Impressions 07/03/2021 11:03 AM CDT There is no mammographic evidence of malignancy. Routine screening mammography is recommended in 1 year. BI-RADS: 2 - Benign. The patient will be entered into a reminder system with a target due date of 1 year for her next mammogram. Electronically signed by: Warner Cartagena M.D. Narrative 07/03/2021 11:03 AM CDT EXAMINATION: SCREENING MAMMOGRAM BILATERAL W CHRIS ORDERING HEALTHCARE PROVIDER: WOLFGANG OBANDO HISTORY: Routine screening mammography. COMPARISON: ??02/21/2020, 06/21/2018, 10/21/2017, 05/26/2017, 11/22/2016, 10/27/2016, 09/21/2016. TECHNIQUE: CC and MLO views of the bilateral breasts were obtained with digital technique using breast tomosynthesis with C view. Computer aided detection was utilized. FINDINGS: DENSITY: The tissue of the bilateral breasts is heterogeneously dense, which may obscure small masses. BREASTS: There are post-operative findings in the left breast. ??There are bilateral breast biopsy clips. ??There are no suspicious masses, suspicious calcifications, or other suspicious findings in either breast. There has been no suspicious interval change. Wolfgang Obando MD IMG MAMMO [place] OCEDURES Final Result documented in this encounter Visit Diagnoses Diagnosis Screening mammogram, encounter for documented in this encounter Care Teams Boom Tender Relationship Specialty Start Date End Date Wolfgang Smallwood MD [address] [place] [address] PCP - General 04/17/20 02/14/23 Wolfgang Smallwood MD [address] [place] [address] Internal Medicine 04/17/20 Jacek Laura MD [address] [address] Referring Physician Hematology 06/02/21 06/28/22 documented as of this encounter
--- OUTSIDE RECORDS SUMMARY | 2024-04-21 12:17 | XMS_ITS | Encounter Summary ---
Demographics Address [address] [facility] [address] [place] [address] Mobile Phone Home Phone Email Address Email Address Preferred Language Citizen Of [place] Marital Status Mormon Affiliation Unknown Race White Ethnic Group Not or Lati no Author Organization [facility] Address [address] [place] [address] Phone Care Team Providers Care Reservationist Name Role Phone Almita Smallwood MD Primary Care Provider + Almita Smallwood MD Unavailable [phone] Jacek Laura MD Unavailable [phone] Reason for Visit * Consultation (Routine) - Closed Specialty Diagnoses / Procedures Referred By Tati campos Referred To Contact General Surgery Diagnoses Sebaceous cyst Almita Smallwood MD [address] [place] [address] Phone: tel: fax: [place] [address] [facility] [address], [place] [address] Phone: tel: fax: Referral ID Status Reason Start Date Expiration Date V isits Requested Visits Authorized [id number] Closed Specialty Services Required 03/18/2022 04/17/2023 1 1 Encounter Details Date Type Department Care Team (Late st Contact Info) Description 03/31/2022 11:00 AM ELECTRICAL EQUIPMENT TESTER Office Visit [facility] Surgery [address] [facility] [address], [place] [address] [place] [address] [facility] [address], [place] [address] Sebaceous cyst Social History Tobacco Use Types Packs/Day Years [...] on file Legal Sex Female 3:38 AM ELECTRICAL EQUIPMENT TESTER Gender Identity Not on file Sexual Orientation Not on file 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 [employer]) Not on file Not on file Not on file documented as of this encounter Last Filed Vital Signs Vital Sign Reading Time Taken Comments Blood Pressure 113/78 03/31/2022 11:05 AM ELECTRICAL EQUIPMENT TESTER Pulse 89 03/31/2022 11:05 AM ELECTRICAL EQUIPMENT TESTER Temperature - - Respiratory Rate - - Oxygen Saturation - - Inhaled Oxygen Concentration - - Weight 69.4 kg (153 lb) 03/31/2022 11:05 AM ELECTRICAL EQUIPMENT TESTER Height 167.6 cm (5' 6 ) 03/31/2022 11:05 AM ELECTRICAL EQUIPMENT TESTER Body Mass Index 24.69 03/31/2022 11:05 AM ELECTRICAL EQUIPMENT TESTER documented in this encounter Progress Notes * Yuri Rocha MD - 03/31/2022 11:00 AM CST General Surgery Reason for Consult/Visit: back cyst Requesting Provider: Amlita Smallwood MD HPI: Patient is a 62 y.o. female with chief complaint of back cyst. Has had this for years. Recently grown in size. No drainage. No pain. No trauma. Review of Systems: The patient-completed Review of Systems was reviewed and was scanned as an attachment to this encounter. Physical Exam: Vitals: BP 113/78 Pulse 89 Ht 167.6 cm (5' 6 ) Wt 69.4 kg (153 lb) BMI 24.69 kg/m?? General: does not appear in acute distress; no pain present HEENT: Head: normocephalic/atraumatic Eyes: no discharge noted; (R,L) extraocular movements are intact Ears: (R,L) hearing grossly normal Nose/Mouth/Throat: mucous membranes moist Neck: neck inspection is normal; neck ROM normal Respiratory: has normal respiratory effort Cardiac: normal heart rate present Vascular: (R,L) normal radial pulse Gastrointestinal: abdomen soft; no abdominal tenderness; no abdominal distention Extremities: (R,L) pink and warm Musculoskeletal: normal range of motion present Right upper back - 3 cm cyst Neurology: patient is awake, alert, oriented x 3 Mood: has normal mood and affect Lab/Radiology/Diagnostic Review: No recent results to review Assessment /Plan 62 y/o F w/ a 3 cm right upper back cyst Will plan on excision in the OR This procedure has been fully reviewed with the patient and written informed consent has been obtained. TRICAL EQUIPMENT TESTER documented in this encounter Plan of Treatment Not on file documented as of this encounter Visit Diagnoses Diagnosis Sebaceous cyst documented in this encounter Orders Outpatient Referral Count Last Ordered Date Fir st Ordered Date AMB REFERRAL TO GENERAL SURGERY 1 2 documented in this encounter Care Teams Reservationist Relationship Specialty Start Date End Date Almita Smallwood MD [address] [place] [address] PCP - General 04/17/20 02/14/23 Almita Smallwood MD [address] [place] [address] Internal Medicine 04/17/20 Jacek Laura MD [address] [phone] Referring Physician Hematology 06/02/21 06/28/22 documented as of this encounter
--- OUTSIDE RECORDS SUMMARY | 2024-04-21 12:17 | XMS_ITS | Encounter Summary ---
Author Organization [facility] Address [address] [place] [address] Phone Care Team Providers Care Care Aide Name Role Phone Almita Smallwood MD Primary Care Provider + Almita Smallwood MD Unavailable [phone] Jacek Laura MD Unavailable [phone] Encounter Details Date Type Department Care Team (Late st Contact Info) Description 06/17/2021 Telephone [facility] [address] [facility] 5th [place] [address] [place] [address] Anna Wu CPhT Social History Tobacco Use Types Packs/Day Years [...] on file Legal Sex Female 3:38 AM WAGON WINDER Gender Identity Not on file Sexual Orientation Not on file 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 N WINDER documented in this encounter Plan of Treatment Not on file documented as of this encounter Visit Diagnoses Not on filedocumented in this encounter Care Teams Care Aide Relationship Specialty Start Date End Date Almita Smallwood MD [address] [place] [address] PCP - General 04/17/20 02/14/23 Almita Smallwood MD [address] [place] [address] Internal Medicine 04/17/20 Jacek Laura MD [address] [phone] Referring Physician Hematology 06/02/21 06/28/22 documented as of this encounter
--- OUTSIDE RECORDS SUMMARY | 2024-04-21 12:17 | XMS_ITS | Encounter Summary ---
Author Organization [facility] Address [address] [place] [address] Phone Care Team Providers Care Human Performance Professor Name Role Phone Almita Smallwood MD Primary Care Provider + Almita Smallwood MD Unavailable [phone] Jacek Laura MD Unavailable [phone] Encounter Details Date Type Department Care Team (Late st Contact Info) Description 06/30/2021 Orders Only [facility] Surgery [address] [facility] [address] Medicine 5th [place] [address] [place] [address] Linda Buckley MD PhD [phone] [place] [address] Social History Tobacco Use Types Packs/Day Years [...] on file Legal Sex Female 3:38 AM DIRECTOR IMMUNOLOGY Gender Identity Not on file Sexual Orientation Not on file 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
--- OUTSIDE RECORDS SUMMARY | 2024-04-21 12:17 | XMS_ITS | Encounter Summary ---
Author Organization [facility] Address [address] [place] [address] Care Team Providers Care Director Of Collections And Archives Name Role Phone Almita Smallwood MD Primary Care Provider + Almita Smallwood MD Unavailable [phone] Jacek Laura MD Unavailable [phone] Reason for Visit * Reason Comments Post-op Follow-up Encounter Details Date Type Department Care Team (Late st Contact Info) Description 06/26/2021 11:30 AM DIESEL TECHNOLOGY INSTRUCTOR Office Visit [facility] Gynecology at [facility] [address] [place] [address] [place] [phone] [employer] [facility] [employer] [address] [place] [address] Postoperative examination (Primary Dx) Social History Tobacco Use Types Packs/Day Years Used Date Smoking Tobacco: Former Cigarettes Q uit: 2005 Smokeless Tobacco: Never Tobacco Cessation:Counseling Given: No Alcohol Use Standard Drinks/Week Comments Yes 0 (1 standard drink = 0.6 oz pur e alcohol) rarely PHQ-2 Answer Date Recorded PHQ-2 Total Score (If total score is 3 or more points, staff should administer the PHQ-9) 0 04/16/2020 Comments No Sex and Gender Information Value Date Recorded Sex Assigned at Not on file Legal Sex Female 3:38 AM DIESEL TECHNOLOGY INSTRUCTOR Gender Identity Not on file Sexual Orientation Not on file 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 Job End Date [employer] (contracted out thru [employer]) Not on file Not on file Not on file documented as of this encounter Last Filed Vital Signs Vital Sign Reading Time Taken Comments Blood Pressure 130/81 06/26/2021 11:21 AM DIESEL TECHNOLOGY INSTRUCTOR Pulse 91 06/26/2021 11:21 AM DIESEL TECHNOLOGY INSTRUCTOR Temperature - - Respiratory Rate - - Oxygen Saturation - - Inhaled Oxygen Concentration - - Weight 75.3 kg (166 lb 1.6 oz) 06/26/2021 11:21 AM DIESEL TECHNOLOGY INSTRUCTOR Height 167.6 cm (5' 6 ) 06/26/2021 11:21 AM DIESEL TECHNOLOGY INSTRUCTOR Body Mass Index 26.81 06/26/2021 11:21 AM DIESEL TECHNOLOGY INSTRUCTOR documented in this encounter Patient Instructions * Patient Instructions* Almita Obando MD - 06/26/2021 11:30 AM DIESEL TECHNOLOGY INSTRUCTOR Your pelvic exam today is normal. You are released to all activities without restriction. Return in 1 year for a pap smear or sooner if needed. EL TECHNOLOGY INSTRUCTOR documented in this encounter Progress Notes * Almita Obando MD - 06/26/2021 11:30 AM CST POST OPERATIVE VISIT Chief Complaint: Routine post op follow up Subjective: Lisa?? Mena ??Crockarell??is a ?61??y.o.??(1960)??Single white female. Postmenopausal since 2014. S/P Stage 0 (DCIS, ER+) left breast CA,??11/2016 lumpectomy. No XRT or chemorx, only Tamoxifen. She is??here for a post op visit. Currently Postop 2 weeks, from a hysteroscopy with D&C, on 06/11/21, for thickened postmenopausal endometrium on tamoxifen. Pathology showed: A. ??Uterus, endocervix, curettage: ? -Strips and fragments of benign endocervical epithelium with focal squamous metaplasia. -Detached fragments of benign squamous epithelium. B. ??Uterus, endometrium, curettage: ? -Fragments of inactive endometrium with stromal breakdown. -Detached fragments of benign squamous epithelium. Current pain medication: None Incision (s) Pelvic exam is normal. She reports light bleeding for few days postop, and then a weeklater for couple of days. None for the last for 5 days. No pelvic pain. No abnormal vaginal discharge. Patient Active Problem List Diagnosis ??? 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 breast Allergies: No Known Allergies Medications: Current Outpatient Medications: ??? albuterol HFA (PROVENTIL HFA,VENTOLIN HFA,PROAIR HFA) 90 mcg/actuation inhaler, Inhale 2 puffs every 4 hours as needed, Disp: , Rfl: ??? collagen, hydrolysate, bovine, (COLLAGEN, HYDR, BOVINE,, BULK, MISC), by Misc.(Non-Drug; Combo Route) route., Disp: , Rfl: ??? ewapxjhdlgh-rdmtmnfeq-wxcmteon (TRELEGY ELLIPTA) 100-62.5-25 mcg inhaler, Inhale 1 puff daily, Disp: , Rfl: ??? levocetirizine (XYZAL) 5 mg tablet, Take 5 mg by mouth, Disp: , Rfl: ??? multivitamin liquid, Take 6 each by mouth daily, Disp: , Rfl: ??? naproxen (NAPROSYN) 500 mg tablet, Take 1 tablet (500 mg total) by mouth 2 (two) times a day asneeded for pain (pain), Disp: 60 tablet, Rfl: 0 ??? montelukast (SINGULAIR) 10 mg tablet, Take 10 mg by mouth daily, Disp: , Rfl: Review of Systems: Review of Systems Constitutional: Negative for activity change, chills and fever. Respiratory: Negative for chest tightness and shortness of breath. Breasts: Soft, non-tender, no masses, lesions or nipple discharge. Cardiovascular: Negative for chest pain. Gastrointestinal: Negative for abdominal pain, constipation and diarrhea. Genitourinary: Negative for dysuria and genital sores. No abnormal vaginal discharge or vaginitis symptoms. Neurological: Negative for headaches. Psychiatric/Behavioral: Negative for dysphoric mood and sleep disturbance. Objective: BP 130/81 (BP Location: Right arm, Patient Position: Sitting) Pulse 91 Ht 167.6 cm (5' 6 ) Wt75.3 kg (166 lb 1.6 oz) BMI 26.81 kg/m?? Physical Exam Constitutional: General: She is not in acute distress. Appearance: Normal appearance. She is well-developed. She is not ill-appearing. Abdominal: General: Bowel sounds are normal. There is no distension. Palpations: Abdomen is soft. There is no mass. Tenderness: There is no abdominal tenderness. There is no guarding. Genitourinary: Vagina normal, uterus normal and normal vulva. There is no rash or lesion on the left labia. There is no rash or lesion on the left labia. No vaginal discharge or bleeding. No bleeding in the vagina. Right adnexa: normal. Right adnexa does not display mass and does not display tenderness. Left adnexa: normal. Left adnexa does not display mass and does not display tenderness. Cervix: Normal exam. Uterus is mobile and midaxial. Uterus is not enlarged or tender. Lymphadenopathy: Lower Body: No right inguinal adenopathy. No left inguinal adenopathy. Skin: General: Skin is warm and dry. Neurological: Mental Status: She is alert and oriented to person, place, and time. Psychiatric: Mood and Affect: Mood normal. Behavior: Behavior normal. Assessment and Plan: Lisa Hermosillo is a 61 y.o. female who presents for post op visit. Lisa was seen today for post-op follow-up. Diagnoses and all orders for this visit: Postoperative examination Comments: Normal pelvic exam. Benign pathology findings. Patient prefers Paps yearly. To RTC 1 year for Pap or sooner if needed. Almita Obando MD 06/26/2021 EL TECHNOLOGY INSTRUCTOR documented in this encounter Plan of Treatment Not on file documented as of this encounter Visit Diagnoses Diagnosis Postoperative examination- Primary Follow-up examination, following unspecified surgery documented in this encounter Care Teams Director Of Collections And Archives Relationship Specialty Start Date End Date Almita Smallwood MD [address] [place] [id number] PCP - General 04/17/20 02/14/23 Almita Smallwood MD [address] [place] [address] Internal Medicine 04/17/20 Jacek Laura MD [address] [address] Referring Physician Hematology 06/02/21 06/28/22 documented as of this encounter
--- OUTSIDE RECORDS SUMMARY | 2024-04-21 12:17 | XMS_ITS | Encounter Summary ---
Author Organization [facility] Healthcare Address [address] [place] [address] Care Team Providers Care Marketing Team Lead Name Role Phone Almita Smallwood MD Primary Care Provider + Almita Smallwood MD Unavailable [phone] Jacek Laura MD Unavailable [phone] Yuri Rocha MD Unavailable [phone] Reason for Visit * Auth/Cert Specialty Diagnoses / Procedures Referred By Tati campos Referred To Contact Diagnoses Sebaceous cyst Sebaceous cyst [L72.3] Procedures WV EXC B9 LESION MRGN XCP SK TG T/A/L 0.6-1.0 CM WV EXC B9 LESION MRGN XCP SK TG T/A/L 1.1-2.0 CM WV EXC B9 LESION MRGN XCP SK TG T/A/L 2.1-3.0 CM EXCISION CYST BACK/ 60 min Referral ID Status Reason Start Date Expiration Date Visits Re quested Visits Authorized [id number] 1 1 Encounter Details Date Type Department Care Team (Late st Contact Info) Description 04/07/2022 10:30 AM FILLING HAULER - 04/07/2022 11:30 AM FILLING HAULER Surgery [facility] Operating Room [address] [place] [address] [place] [id number] [facility] [address] [place] [address] EXCISION CYST BACK Surgery Details Date/Time Status Location OR Service Patient Class Case Cl ass Case Type Trauma Case? 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[employer]) Not on file Not on file Not on file documented as of this encounter Last Filed Vital Signs Vital Sign Reading Time Taken Comments Blood Pressure 115/63 04/07/2022 11:30 AM FILLING HAULER Pulse 65 04/07/2022 11:30 AM FILLING HAULER Temperature 36.4 ??C (97.6 ??F) 04/07/2022 11:[address] Respiratory Rate 18 04/07/2022 11:30 AM FILLING HAULER Oxygen Saturation 99% 04/07/2022 11:30 AM FILLING HAULER Inhaled Oxygen Concentration - - Weight 68.5 kg (151 lb) 04/07/2022 8:39 AM FILLING HAULER Height 165.1 cm (5' 5 ) 04/07/2022 8:39 AM FILLING HAULER Body Mass Index 25.13 04/07/2022 8:39 AM FILLING HAULER documented in this encounter Discharge Instructions * Discharge Instructions* Janene Slater RN - 04/07/2022 11:58 AM FILLING HAULER FOLLOW UP CALLS You may get a couple of follow-up phone calls from us over the next 2 days. For your information, our number may come up as unknown or a random number. If our surgical flow allows, we will attempt tomake a phone call the same day of surgery if you were discharged prior to 3pm. Regardless, we will call you the next day after surgery to follow up with you on pain control and see if you have any questions or concerns. If we are unable to reach you, we will leave a voice message if that is an option and then attempt to reach you again the following day. If we are still unable to reach you on that second day after surgery, we will stop the process of follow up calls. Please reach out to your surgeon if you have any questions or concerns. We want you to be able to say your care was EXCELLENT! If it was not, please let us know! Good and Great are not enough for us, we strive for EXCELLENCE! ING HAULER * Attachments The following attachments cannot be sent through Care Everywhere. * Moderate Sedation (Discharge Care) (Macedonian) * Dermal Cyst Excision (Discharge Care) (Macedonian) documented in this encounter Medications at Time of Discharge aspirin 81 mg enteric coated tablet Take 81 mg by mouth daily collagen, hydrolysate, bovine, (COLLAGEN, HYDR, BOVINE,, BULK, MISC) by [facility].(Non-Jersey g; Combo Route) route. cyclobenzaprine (FLEXERIL) 5 mg [...] by mouth every 8 (eight) hours 03/04/2022 albuterol HFA (PROVENTIL HFA,VENTOLIN HFA,PROAIR HFA) 90 mcg/actuation inhaler Inhale 2 puffs every 4 hours as needed 02/15/2020 06/29/2022 fluticasone-umecl idin-vilanter (TRELEGY ELLIPTA) 100-62.5-25 mcg inhaler Inhale 1 puff daily 04/16/2020 06/29/2022 documented as of this encounter Ordered Prescriptions Prescription Sig Dispense Quantity Refills Last Filled Start Date End Date HYDROcodone-acetami nophen (NORCO) 5-325 mg per tabletIndications:P ain Take 1 tablet by mouth every 4 (four) hours as needed for pain 20 tablet 04/07/2022 documented in this encounter Discharge Disposition Disposition Code Departure Means Destination Discharge to home or self care documented in this encounter H&P Notes * Yuri Rocha MD - 04/07/2022 8:24 AM CST I have reviewed the H&P, examined the patient, and endorse the findings as written. Plan of Care : Based on the above findings, I consider Lisa Hermosillo to be an acceptable risk for : Procedure(s): EXCISION CYST BACK/ 60 min ING HAULER Source Note - Yuri Rocha MD - 03/31/2022 11:00 AM FILLING HAULER General Surgery Reason for Consult/Visit: back cyst Requesting Provider: Almita Smallwood MD HPI: Patient is a 62 [...] and written informed consent has been obtained. ING HAULER documented in this encounter Miscellaneous Notes * Op Note - Yuri Rocha MD - 04/07/2022 10:48 AM CST SURGEON Yuri Rocha MD PREOPERATIVE DIAGNOSIS Back cyst POSTOPERATIVE DIAGNOSIS Back cyst - 4 cm ANESTHESIA MAC OPERATIVE PROCEDURES Excision of back cyst - 4 cm OPERATIVE INDICATIONS This is a 62 year old female who presents for excision of an enlarging back cyst. The risks, benefits, complications, treatment options, and expected outcomes were discussed with the patient. The patient concurred with the proposed plan, giving informed consent. OPERATIVE FINDINGS 4 cm cyst OPERATIVE PROCEDURE Patient was brought to the operating room. MAC anesthesia was obtained. The back was prepped and draped in usual sterile fashion. Surgical timeout was conducted. Quarter percent marcaine was injectedalong the incision line. A 3 cm transverse incision was made. The cyst was encountered. This was bluntly dissected away from the surrounding tissue and sent for routine pathology. The wound was irrigated with saline. The deep dermal layer was closed with 2-0 vicryl. Skin was closed with 4-0 monocryl. Dermabond was applied. She was awakened and transferred to PACU in stable condition. ESTIMATED BLOOD LOSS Minimal COMPLICATIONS None SPECIMENS Back cyst DRAINS None Instrument, sponge, and needle counts were correct at the conclusion of the case. ATTENDING ATTESTATION I was present for the entirety of the procedure except for skin closure for which I was immediatelyavailable. Yuri Rocha MD 04/07/22 ING HAULER * Pre-Procedure Instructions - Sofi Hardy RN - 04/06/2022 2:16 PM FILLING HAULER We are pleased that you and your doctor have chosen [facility] for your surgery. We hope that the following information will help make your visit a pleasant one. Surgery Date: 04/07/2022 and arrive at 08:30 a.m. [facility] (look for sign reading ???EMERGENCY - SURGERY CENTER?? ) [address] [place] [address] Before your surgery: Notify your doctor of ANY change in your health such as a cold, sore throat, fever, infection or a change in the problem for which you are having your surgery. Follow any instructions given to you by your doctor or surgeon. If your Surgeon did not provide you with CHG/Hibiclens soap: It maybe picked up at the Surgery Center Tuesday through Tuesday before 2 PM. Tell the person at the desk that you came to picker tender your soapfor your surgery. Or you may purchase it from a pharmacy (it is over the counter). Check with your doctor if you need to STOP taking: Aspirin (ordered by your doctor) One week before surgery STOP taking: All herbal/vitamin supplements Aspirin (not ordered by your doctor) Aleve, Advil, Motrin, Ibuprofen, Excedrin, Naproxen, Meloxicam, Diclofenac (oral & topical) Relafen, Celebrex, Ketorolac (Toradol) or other similar medications (Tylenol is okay unless it is not recommended by your physician). Fish Oil, Co Q 10, Cod Liver Oil, or other similar products. 24 hours before your surgery: No smoking, vaping, alcohol, Marijuana, or recreational drug use. Hydrate yourself (water) - if no restrictions. Night before your surgery: DO NOT eat or drink anything after midnight including candy, mints, gum, chewable antacids, and cough drops. Follow surgeon's instructions for anti-bacterial (generic CHG/Hibiclens) shower night before and morning of surgery. Shower Instructions: Clean your hair using normal shampoo and/or conditioner products. Using your own normal soap and one washcloth, wash your face. Move away from the shower stream. Using a second freshly washed washcloth and the CHG soap, thoroughly wash from neck down (avoid face, hair, open wounds, and genital area). Use enough soap to thoroughly cover your body. You may need help if some areas cannot easily be reached, such as your back. Wash with the CHG soap for 2-3 minutes then Rinse thoroughly and dry with a clean towel (use a different freshly washed towel for each shower). Do not use lotions, powders, creams, Vaseline, or hair products after either shower. Dress in clean, freshly washed pajamas or clothing. Do not shave below the neck on the night before or day of surgery The night before surgery sleep on clean linen Do Not let pets sleep with you Day of surgery: Repeat your shower. No smoking, vaping, alcohol, or recreational drug use. You may have up to 16 ounces of water/Gatorade (no red or purple) until 07:30 a.m. the morning of your surgery. Wear comfortable clothes that will not be tight over the area of your surgery Do not wear jewelry, body piercing's, makeup, hairpins, false eye lashes, or contact lenses. Do Not Glue Dentures or Partials In Bring your Covid Vaccination Card If you have an implantable device with a remote, bring the remote with you on the day of surgery. Leave all valuables and jewelry (including all body piercing jewelry) at home. If you use a CPAP machine, please bring it with you to wear after your surgery. Please bring your photo ID, insurance cards, and medication list (including all [id number] medications) with you. Prescriptions can be filled onsite prior to discharge. Please have your co-pay available. Check in at the Registration Desk. Wear a mask. You may have 2 visitors daily (visitor must be over the age of 18). After your Outpatient Surgery: You must have a responsible adult to drive you home, you will not be allowed to drive or take a cabhome. We recommend you have someone stay with you for 24 hours after your surgery. Questions or concerns: If you have any questions or concerns regarding your procedure, or to cancel your surgery/procedure- contact your surgeon as soon as possible. If you have questions regarding your Pre-Admission Screen/Testing, please call at . ING HAULER documented in this encounter Plan of Treatment Not on file documented as of this encounter Procedures Procedure Name Priority Date/Time Associated Diagnosis Comments SURGICAL PATHOLOGY Routine 04/07/2022 12 :17 PM FILLING HAULER Sebaceous cyst EXCISION CYST/LIPOMA/LESION 04/07/2022 10:24 AM FILLING HAULER Sebaceous cyst documented in this encounter Results * Surgical pathology (04/07/2022 12:17 PM FILLING HAULER) Tissue (Cyst) 04/07/2022 11: 01 AM FILLING HAULER Narrative PATHOLOGY CH - 04/08/2022 3:57 PM FILLING HAULER EPIC results best viewed via link to PDF [facility] Department of Pathology [address] [place] [id number] Note to Patients: This report may contain a detailed description of human tissue sent by a health care provider to the laboratory for pathologic evaluation. The content of this report is essential for diagnosis and may provide important critical findings. This information may be unfamiliar to patients to review without a medical professional present. It is advised that the patient review this report in the presence of a health care provider who can answer questions and explain the details. Final Report Patient Name: ??LISA HERMOSILLO Address: ??[address] , ??[place] [address] Gender: ??F : ??1960 (Age: 62) Service: ??Surgery Location: ?? OR Hospital #: ??[id number] Patient Type: ??[facility] Accession # ?[id number] Taken: ??04/07/2022 Received: ??04/07/2022 Accessioned: ??04/07/2022 Reported: ??04/08/2022 Physician(s):Babatunde Simpson MD Diagnosis: A: ??Back cyst, excisional biopsy: ? Epidermal inclusion cyst/sebaceous cyst ?? Deena Salinas M.D. Report Electronically Reviewed and Signed Out By ??Deena Salinas M.D. ??04/08/2022 15:57:34 Specimen(s) Received: A: Back cyst Microscopic Description: Microscopic examination corroborates the diagnosis. ??There is no evidence of neoplasia/malignancy material examined. Clinical History: Sebaceous cyst Procedure: excision cyst back Gross Description: The specimen is submitted in a single formalin filled container labeled with LISA HERMOSILLO and back cyst . ??It is an intact cyst with agudelo waxy contents measuring 3.5 cm. ??It is surrounded by unremarkable congested fibrofatty tissue measuring additional 3 cm. ??Represented in one cassette. Papito Clark R.N., P.A./Deena Salinas M.D. REPORT IMAGES AND SCANNED DOCUMENTS, IF INCLUDED, ONLY VIEWABLE IN PDF VERSION OF REPORT The performance characteristics of some immunohistochemical stains, fluorescence in-situ hybridization tests and immunophenotyping by flow cytometry cited in this report (if any) were determined by the Surgical Pathology Department at [facility] as part of an ongoing food quality tester program and in compliance with federally mandated [...] characteristics determined by the Surgical Pathology Department [facility]. ??It has not been cleared or approved by the U. S. Food and Drug Administration. Note for decalcified specimens: This assay has not been validated on decalcified tissues. Results should be interpreted with caution given the possibility of false negativity on decalcified specimens Yuri Rocha MD LAB PATHOLOGY ORDERABLES F inal Result PATHOLOGY [address] [place] [address] documented in this encounter Visit Diagnoses Diagnosis Sebaceous cyst- Primary Sebaceous cyst documented in this encounter Admitting Diagnoses Diagnosis Sebaceous cyst documented in this encounter Administered Medications Inactive Administered Medications - up to 3 most recent administrations Medication Order MAR Action Action Date Dose Rate Site acetaminophen (TYLENOL) tablet 650 mg 650 mg, oral, Once, On Tue04/07/22 at 0915, For 1 dose, Pre-Op, Indications: Pre-Emptive AnalgesiaIndications:Pre-Em ptive Analgesia Given 04/07/2022 8:45 AM FILLING HAULER 650 mg bupivacaine-EPINEPHrine (MARCAINE with EPI) 0.25 %-1:200,000 preservative free injection As needed, Starting on Tue04/07/22 at 1105, Intra-Op Given 04/07/2022 11:05 AM FILLING HAULER 10 mL Surgical Site Lactated Ringer's (LR) infusion - ADS Override Pull Starting on Tue04/07/22 at 0838, For 1 dose, Created by cabinet override Lactated Ringer's (LR) infusion 30 mL/hr, intravenous, Continuous, Starting on Tue04/07/22 at 0915, Restarted 04/07/2022 11:14 AM FILLING HAULER Rate/Dose Verify 04/07/2022 10:24 AM FILLING HAULER 30 mL/ hr New Bag 04/07/2022 8:45 AM FILLING HAULER 30 mL/hr 30 mL/hr sodium chloride 0.9% irrigation As needed, Starting on Tue04/07/22 at 1047, Intra-Op Given 04/07/2022 10:47 AM FILLING HAULER 1,000 mL Surgical Site documented in this encounter Discontinued Medications Medication Sig Discontinue Reason Start Date End Da te diclofenac DR (VOLTAREN) 75 mg EC tablet TAKE 1 TABLET BY MOUTH TWICE DAILY WITH MEALS FOR 14 DAYS Therapy completed 07/09/2021 04/06/2022 montelukast (SINGULAIR) 10 mg tablet Take 10 mg by mouth nightly Duplicate order 06/20/2020 04/06/2022 multivitamin liquid Take 6 each by mouth daily Other 06/04/2019 04/06/2022 naproxen (NAPROSYN) 500 mg tablet Take 1 tablet (500 mg total) by mouth 2 (two) times a day as needed for pain (pain) Therapy completed 06/11/2021 04/06/2022 UNABLE TO FIND Vitamin B12 daily Other 04/06/2022 documented as of this encounter Historical Medications * This list may reflect changes made after this encounter. multivitamin tablet,chewable Take 2 Gum by mouth every morning aspirin 81 mg enteric coated tablet Take 81 mg by mouth daily tiZANidine (ZANAFLEX) 2 mg tablet Take 2 mg by mouth every 8 (eight) hours 03/04/2022 added in this encounter Active and Recently Administered Medications Times are shown in FILLING HAULER. Scheduled Medication Order 04/05/2022 04/06/2022 04/07/2022 acetaminophen (TYLENOL) tablet 650 mg (COMPLETED) 650 mg, oral, Once, On Tue04/07/22 at 0915, For 1 dose, Pre-Op, Indications: Pre-Emptive Analgesia 0845 (Given - Provid er: Beba Severino RN) ceFAZolin (ANCEF) 1 gram/10 mL in sterile water (premix) 2,000 mg (COMPLETED) 2,000 mg, intravenous, at 400 mL/hr, Administer over 3 Minutes, Once, On Tue04/07/22 at 0900, For 1 dose, Indications: Prophylaxis, Surgical 1035 (Given - Provid er: Jose Newton CRNA) Continuous Medication Order 04/05/2022 04/06/2022 04/07/2022 Lactated Ringer's (LR) infusion 30 mL/hr, intravenous, Continuous, Starting on Tue04/07/22 at 0915, 0845 (New Bag - Prov ider: Beba Severino RN)1024 (Rate/Dose Verify - Provider: Jose Newton CRNA)1113 (Paused - Provider: Jose Newton CRNA - Comment: Switch to gravity)1114 (Restarted - Provider: Jose Newton CRNA)1950 (Due: Stopped) PRN Medication Order 04/05/2022 04/06/2022 04/07/2022 bupivacaine-EPINEPHrine (MARCAINE with EPI) 0.25 %-1:200,000 preservative free injection (CANCELED) As needed, Starting on Tue04/07/22 at 1105, Intra-Op 1105 (Given - Provid er: Yuri Rocha MD) sodium chloride 0.9% irrigation (CANCELED) As needed, Starting on Tue04/07/22 at 1047, Intra-Op 1047 (Given - Provid er: Yuri Rocha MD) documented in this encounter Orders Medications Ordered That Gab ht Not Have Been Administered Count Last Ordered Date First Ordered Date ceFAZolin (ANCEF) 1 gram/10 mL in sterile water (premix) - ADS Override Pull 1 04/07/2022 ceFAZolin (ANCEF) 1 gram/10 mL in sterile water (premix) 2,000 mg 1 04/07/2022 celecoxib (CeleBREX) capsule 200 mg 1 04/07 diphenhydrAMINE (BENADRYL) i njection 12.5 mg 1 04/07/2022 fentaNYL (SUBLIMAZE) preserv ative free injection 50 mcg 1 04/07/2022 naloxone (NARCAN) 0.4 mg/mL injection 0.04-0.4 mg 1 04/07/2022 ondansetron (ZOFRAN) injection 4 mg 1 04/07 Diet Count Last Ordered Date First Orde red Date ADULT DISCHARGE DIET 1 04/07/2022 Nursing Count Last Ordered Date First Orde red Date DISCHARGE ACTIVITY 4 04/07/2022 DISCHARGE CALL PROVIDER 6 04/07/2022 DISCHARGE DRESSING 3 04/07/2022 FOLLOW UP WITH ESTABLISHED PROVIDER 1 04/07 Discharge Count Last Ordered Date First Orde red Date DISCHARGE PATIENT 1 04/07/2022 documented in this encounter Care Teams Marketing Team Lead Relationship Specialty Start Date End Date Almita Smallwood MD [address] [place] [address] PCP - General 04/17/20 02/14/23 Almita Smallwood MD [address] [place] [phone] Internal Medicine 04/17/20 Jacek Laura MD [address] [phone] Referring Physician Hematology 06/02/21 06/28/22 [place] [address] [address] [address] Surgeon General Surgery 04/07/22 documented as of this encounter
--- OUTSIDE RECORDS SUMMARY | 2024-04-21 12:17 | XMS_ITS | Encounter Summary ---
Author Organization [facility] Address [address] [place] [address] Phone Care Team Providers Care Food Specialist Name Role Phone Almita Smallwood MD Primary Care Provider + Almita Smallwood MD Unavailable Jacek Laura MD Unavailable [phone] Encounter Details Date Type Department Care Team (Late st Contact Info) Description 06/16/2021 Telephone [facility] Surgery [address] [facility] Advanced Medicine 5th [place] [address] [place] [address] Anna Wu CPhT Social History [...] on file Legal Sex Female 3:38 AM 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 ORMANCE MAKEUP ARTIST documented in this encounter Plan of Treatment Not on file documented as of this encounter Visit Diagnoses Not on filedocumented in this encounter Care Teams Food Specialist Relationship Specialty Start Date End Date Almita Smallwood MD [address] [place] [address] PCP - General 04/17/20 02/14/23 Almita Smallwood MD [address] [place] [address] Internal Medicine 04/17/20 Jacek Laura MD [address] [phone] Referring Physician Hematology 06/02/21 06/28/22 documented as of this encounter
--- OUTSIDE RECORDS SUMMARY | 2024-04-21 12:17 | XMS_ITS | Encounter Summary ---
Author Organization [facility] Address [address] [place] [address] Phone Care Team Providers Care Business Functional Analyst Name Role Phone Almita Smallwood MD Primary Care Provider + Almita Smallwood MD Unavailable [phone] Jacek Laura MD Unavailable [phone] Encounter Details Date Type Department Care Team (Late st Contact Info) Description 08/06/2021 Orders Only [facility] Surgery [address] [facility] Advanced Medicine 5th [place] [address] [place] [address] Linda Buckley MD PhD [address] [facility] [phone] [place] [address] Social History Tobacco Use Types Packs/Day Years [...] on file Legal Sex 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 Gender Identity Not on file Sexual Orientation Not on file 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 [employer]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 (contracted out thru [employer]) Not on file Not on file Not on file documented as of this encounter Plan of Treatment Not on file documented as of this encounter Visit Diagnoses Not on filedocumented in this encounter Care Teams Business Functional Analyst Relationship Specialty Start Date End Date Almita Smallwood MD [address] [place] [address] PCP - General 04/17/20 02/14/23 Almita Smallwood MD [address] [place] [address] Internal Medicine 04/17/20 Jacek Laura MD [address] [phone] Referring Physician Hematology 06/02/21 06/28/22 documented as of this encounter
--- OUTSIDE RECORDS SUMMARY | 2024-04-21 12:17 | XMS_ITS | Encounter Summary ---
Author Organization [facility] Healthcare Address [address] [place] [address] Care Team Providers Care Bore Mill Operator For Plastic Name Role Phone Almita Smallwood MD Primary Care Provider + Almita Smallwood MD Unavailable [phone] Jacek Laura MD Unavailable [phone] Yuri Rocha MD Unavailable [phone] Reason for Visit * Auth/Cert Specialty Diagnoses / Procedures Referred By Tati campos Referred To Contact Diagnoses Sebaceous cyst Sebaceous cyst [L72.3] Procedures GA EXC B9 LESION MRGN XCP SK TG T/A/L 0.6-1.0 CM GA EXC B9 LESION MRGN XCP SK TG T/A/L 1.1-2.0 CM GA EXC B9 LESION MRGN XCP SK TG T/A/L 2.1-3.0 CM EXCISION CYST BACK/ 60 min Referral ID Status Reason Start Date Expiration Date Visits Re quested Visits Authorized [id number] 1 1 Encounter Details Date Type Department Care Team (Latest Contact Info) Description 04/07/2022 8:22 AM MECHANICAL DEVELOPMENT ENGINEER - 04/07/2022 12:55 PM MECHANICAL DEVELOPMENT ENGINEER Hospital Encounter [facility] Operating Room [address] [place] [address] [place] [address] [facility] [address] [place] [address] Sebaceous cyst Discharge Disposition: Discharge to home or self [...] on file Legal Sex Female 3:38 AM MECHANICAL DEVELOPMENT ENGINEER Gender Identity Not on file Sexual Orientation Not on file 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1 cm (5' 5 ) 04/07/2022 8:39 AM MECHANICAL DEVELOPMENT ENGINEER Body Mass Index 25.13 04/07/2022 8:39 AM MECHANICAL DEVELOPMENT ENGINEER documented in this encounter Discharge Instructions * Discharge Instructions* Janene Slater, JUDI - 04/07/2022 11:58 AM MECHANICAL DEVELOPMENT ENGINEER FOLLOW UP CALLS You may get a [...] enough for us, we strive for EXCELLENCE! ANICAL DEVELOPMENT ENGINEER * Attachments The following attachments cannot be sent through Care Everywhere. * Moderate Sedation (Discharge Care) (Hong Konger) * Dermal Cyst Excision (Discharge Care) (Hong Konger) documented in this encounter Medications at Time of Discharge aspirin 81 mg enteric coated tablet Take 81 mg by mouth daily collagen, hydrolysate, bovine, (COLLAGEN, HYDR, BOVINE,, BULK, MISC) by [facility]Non-Jersey g; Combo Route) route. [...] : Procedure(s): EXCISION CYST BACK/ 60 min ANICAL DEVELOPMENT ENGINEER Source Note - Yuri Rocha MD - 03/31/2022 11:00 AM MECHANICAL DEVELOPMENT ENGINEER General Surgery Reason for Consult/Visit: back cyst Requesting Provider: Alimta Smallwood MD HPI: Patient is a 62 [...] and written informed consent has been obtained. ANICAL DEVELOPMENT ENGINEER documented in this encounter Miscellaneous Notes * [...] I was immediatelyavailable. Yuri Rocha MD 04/07/22 ANICAL DEVELOPMENT ENGINEER * Pre-Procedure Instructions - Sofi Hardy RN - 04/06/2022 2:16 PM MECHANICAL DEVELOPMENT ENGINEER We are pleased that you and your doctor have chosen [facility] for your surgery. We hope that the following information will help make your visit a pleasant one. Surgery Date: 04/07/2022 and arrive at 08:30 a.m. [facility] Surgery [facility] (look for sign reading ???[facility] - SURGERY CENTER?? ) [address] [place] [address] Before your surgery: Notify your doctor of [...] at the desk that you came to brain picker your soapfor your surgery. Or you may [...] insurance cards, and medication list (including all yetr-wey-bgejsfi medications) with you. Prescriptions can be filled [...] your Pre-Admission Screen/Testing, please call at . ANICAL DEVELOPMENT ENGINEER documented in this encounter Plan of Treatment Not on file documented as of this encounter Procedures Procedure Name Priority Date/Time Associated Diagnosis Comments SURGICAL PATHOLOGY Routine 04/07/2022 12 :17 PM MECHANICAL DEVELOPMENT ENGINEER Sebaceous cyst EXCISION CYST/LIPOMA/LESION 04/07/2022 10:24 AM MECHANICAL DEVELOPMENT ENGINEER Sebaceous cyst documented in this encounter Results * Surgical pathology (04/07/2022 12:17 PM MECHANICAL DEVELOPMENT ENGINEER) Tissue (Cyst) 04/07/2022 11: 01 AM MECHANICAL DEVELOPMENT ENGINEER Narrative PATHOLOGY CH - 04/08/2022 3:57 PM MECHANICAL DEVELOPMENT ENGINEER EPIC results best viewed via link to PDF [facility] Department of Pathology [address] [place] [address] Note to Patients: This report may contain [...] Final Report Patient Name: ??LISA HERMOSILLO Address: ??[address] , ??[place], [place] [address] Gender: ??F : ??1960 (Age: 62) Service: ??Surgery Location: ?? OR Hospital #: ??[id number] Patient Type: ??[facility] Accession # [id number] Taken: ??04/07/2022 Received: ??04/07/2022 Accessioned: ??04/07/2022 Reported: [...] ??Represented in one cassette. Papito Clark R.N., P.Sherman./Deena Salinas M.D. REPORT IMAGES AND SCANNED DOCUMENTS, IF INCLUDED, ONLY VIEWABLE IN PDF VERSION OF REPORT The performance characteristics of some immunohistochemical stains, fluorescence in-situ hybridization tests and immunophenotyping by flow cytometry cited in this report (if any) were determined by the Surgical Pathology Department at [facility] as part of an ongoing manufacturing quality technician program and in compliance with federally mandated [...] characteristics determined by the Surgical Pathology Department [facility]. ??It has not been cleared or approved by the U. S. Food and Drug Administration. Note for decalcified specimens: This assay has not been validated on decalcified tissues. Results should be interpreted with caution given the possibility of false negativity on decalcified specimens Yuri Rocha MD LAB PATHOLOGY [place] [address] [place] [address] documented in this encounter Visit Diagnoses Diagnosis Sebaceous cyst- Primary documented in this encounter Admitting Diagnoses Diagnosis Sebaceous cyst documented in this encounter Administered Medications Inactive Administered Medications - up to 3 most recent administrations Medication Order MAR Action Action Date Dose Rate Site acetaminophen (TYLENOL) tablet 650 mg 650 mg, oral, Once, On Tue04/07/22 at 0915, For 1 dose, Pre-Op, Indications: Pre-Emptive AnalgesiaIndications:Pre-Emptive Analgesia Given 04/07/2022 8:45 AM MECHANICAL DEVELOPMENT ENGINEER 650 mg Lactated Ringer's (LR) infusion - ADS Override Pull Starting on Tue04/07/22 at 0838, For 1 dose, Created by cabinet override Lactated Ringer's (LR) infusion 30 mL/hr, intravenous, Continuous, Starting on Tue04/07/22 at 0915, Restarted 04/07/2022 11:14 AM MECHANICAL DEVELOPMENT ENGINEER Rate/Dose Verify 04/07/2022 10:24 AM MECHANICAL DEVELOPMENT ENGINEER 30 mL/ hr New Bag 04/07/2022 8:45 AM MECHANICAL DEVELOPMENT ENGINEER 30 mL/hr 30 mL/hr documented in this encounter Discontinued Medications Medication [...] Recently Administered Medications Times are shown in MECHANICAL DEVELOPMENT ENGINEER. Scheduled Medication Order 04/05/2022 04/06/2022 04/07/2022 acetaminophen [...] Count Last Ordered Date First Ordered Date bupivacaine-EPINEPHrine (MAR MELL with EPI) 0.25 %-1:200,000 preservative free injection 1 04/07/2022 ceFAZolin (ANCEF) 1 gram/10 mL [...] ondansetron (ZOFRAN) injection 4 mg 1 04/07 sodium chloride 0.9% irrigation 1 Diet Count Last Ordered Date First Orde red Date ADULT DISCHARGE DIET 1 04/07/2022 Nursing Count Last Ordered Date First Orde red Date DISCHARGE ACTIVITY 4 04/07/2022 DISCHARGE CALL PROVIDER 6 04/07/2022 DISCHARGE DRESSING 3 04/07/2022 FOLLOW UP WITH ESTABLISHED PROVIDER 1 04/07 Discharge Count Last Ordered Date First Orde red Date DISCHARGE PATIENT 1 04/07/2022 documented in this encounter Care Teams Bore Mill Operator For Plastic Relationship Specialty Start Date End Date Almita Smallwood MD [address] [place] [address] PCP - General 04/17/20 02/14/23 Almita Smallwood MD [address] [place] [address] Internal Medicine 04/17/20 Jacek Laura MD [address] [place] [phone] Referring Physician Hematology 06/02/21 06/28/22 [place] [address] [address] [place] [address] Surgeon General Surgery 04/07/22 documented as of this encounter
--- OUTSIDE RECORDS SUMMARY | 2024-04-21 12:17 | XMS_ITS | Encounter Summary ---
Author Organization [facility] Healthcare Address [address] [place] [address] Care Team Providers Care Live Truck Technician Name Role Phone Almita Smallwood MD Primary Care Provider + Almita Smallwood MD Unavailable [phone] Jacek Laura MD Unavailable [phone] Reason for Referral * MRI/CAT/PET Scan (Routine) - Closed Specialty Diagnoses / Procedures Referred By Tati campos Referred To Contact Radiology Diagnoses Family history of breast cancer Procedures MRI Breast Bilateral W WO Contrast Snow Calabrese MD [address] [place] [address] Phone: tel: fax: [address] [phone] Referral ID Status Reason Start Date Expiration Date Visits Re quested Visits Authorized [id number] Closed 08/06/2021 09/05/2022 1 1 Reason for Visit * MRI/CAT/PET Scan (Routine) - Closed Specialty Diagnoses / Procedures Referred By Tati campos Referred To Contact Radiology Diagnoses Family history of breast cancer Procedures MRI Breast Bilateral W WO Contrast Snow Calabrese MD [address] [place] [address] Phone: tel: fax: [address] [place] [address] Referral ID Status Reason Start Date Expiration Date Visits Re quested Visits Authorized [id number] Closed 08/06/2021 09/05/2022 1 1 Encounter Details Date Type Department Care Team (Latest Contact Info) Description 12/17/2021 7:00 AM CDT - 12/17/2021 11:59 PM CDT Hospital Encounter [facility] [place] [address] Wolf PointSnow ojeda MD [address] [place] [address] Family history of breast cancer Discharge Disposition: [...] on file Legal Sex Female 3:38 AM PAINTER SET Gender Identity Not on file Sexual Orientation Not on file 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 cyclobenzaprine (FLEXERIL) 5 mg tablet Take 5-10 mg by mouth 2 (two) times a day as needed 07/09/2021 levocetirizine (XYZAL) 5 mg tablet Take 5 mg by mouth nightly 02/22/2020 montelukast (SINGULAIR) 10 mg tablet Take 1 tablet (10 mg total) by mouth nightly tamoxifen (NOLVADEX) 20 mg tabletIndications :prevention of breast cancer in high risk women Take 1 tablet (20 mg total) by mouth daily 90 tablet 3 08/12/2021 albuterol HFA (PROVENTIL HFA,VENTOLIN HFA,PROAIR HFA) 90 mcg/actuation inhaler Inhale 2 puffs every 4 hours as needed 02/15/2020 06/29/[address] (VOLTAREN) 75 mg EC tablet TAKE 1 TABLET BY MOUTH TWICE DAILY WITH MEALS FOR 14 DAYS 07/09/2021 04/06/2022 fluticasone-umecl idin-vilanter (TRELEGY ELLIPTA) 100-62.5-25 mcg inhaler Inhale 1 puff daily 04/16/2020 06/29/2022 montelukast (SINGULAIR) 10 mg tablet Take 10 mg by mouth nightly 06/20/2020 04/06/2022 multivitamin liquid Take 6 each by mouth daily 06/04/2019 04/06/2022 naproxen (NAPROSYN) 500 mg tablet Take 1 tablet (500 mg total) by mouth 2 (two) times a day as needed for pain (pain) 60 tablet 06/11/2021 04/06/2022 UNABLE TO FIND Vitamin B12 daily 04/06/2022 documented as of this encounter Discharge Disposition Disposition Code Departure Means Destination Discharge to home or self care documented in this encounter Plan of Treatment Not on file documented as of this encounter Procedures Procedure Name Priority Date/Time Associated Diagnosis Comments MRI BREAST BILATERAL W WO CONTRAST Schedule Routine, Read Routine (OP Routine) 12/17/2021 8:38 AM CDT Family history of breast cancer documented in this encounter Results * MRI Breast Bilateral W WO Contrast (12/17/2021 8:38 AM CDT) Anatomical Region Laterality Modality Breast Bilateral Magnetic Resonan ce 12/17/2021 10:0 7 AM CDT Impressions 12/17/2021 10:08 AM CDT No suspicious MRI abnormality within EITHER breast. OVERALL FINAL ASSESSMENT: BI-RADS Category 2: Benign. RECOMMENDATION: Annual screening mammography, with screening breast MRI if clinically indicated, are recommended. Dictated by: Belen Reece M.D. The radiology attending physician has personally reviewed this study, and had reviewed and/or edited this written report and agrees with it. Electronically signed by: [place] Mantilla M.D. Narrative 12/17/2021 10:08 AM CDT EXAMINATION: 1. MRI EXAMINATION OF THE BREASTS WITH AND WITHOUT CONTRAST 2. 3D POST PROCESSING ON A DEDICATED 3D WORKSTATION HISTORY: High-risk Screening. 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 ?? DATE OF LAST MENSTRUAL PERIOD: 10 years ago TECHNIQUE: MRI examination of the breasts per breast tumor protocol with and without gadolinium contrast. ??A dedicated breast imaging coil was used. ??The images were transferred to a breast CAD system for 3D post processing and contrast kinetics analysis. ?? CONTRAST: Gadoterate meglumine, 12 ml COMPARISON: Multiple prior mammograms dating back to 2015, most recently 06/25/2021 BREAST COMPOSITION: Heterogeneous fibroglandular tissue BACKGROUND PARENCHYMAL ENHANCEMENT: Minimal FINDINGS: There are postsurgical changes of partial mastectomy in the LEFT breast. ??No suspicious mass or non-mass enhancement within EITHER breast. No abnormally enlarged lymph nodes are identified in the visualized portions of either axilla. Procedure Note [place]a Mantilla MD - 12/17/2021 EXAMINATION: 1. MRI EXAMINATION OF THE BREASTS WITH AND WITHOUT CONTRAST 2. 3D POST PROCESSING ON A DEDICATED 3D WORKSTATION HISTORY: High-risk Screening. 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 DATE OF LAST MENSTRUAL PERIOD: 10 years ago TECHNIQUE: MRI examination of the breasts per breast tumor protocol with and without gadolinium contrast. A dedicated breast imaging coil was used. The images were transferred to a breast CAD system for 3D post processing and contrast kinetics analysis. CONTRAST: Gadoterate meglumine, 12 ml COMPARISON: Multiple prior mammograms dating back to 2015, most recently 06/25/2021 BREAST COMPOSITION: Heterogeneous fibroglandular tissue BACKGROUND PARENCHYMAL ENHANCEMENT: Minimal FINDINGS: There are postsurgical changes of partial mastectomy in the LEFT breast. No suspicious mass or non-mass enhancement within EITHER breast. No abnormally enlarged lymph nodes are identified in the visualized portions of either axilla. IMPRESSION: No suspicious MRI abnormality within EITHER breast. OVERALL FINAL ASSESSMENT: BI-RADS Category 2: Benign. RECOMMENDATION: Annual screening mammography, with screening breast MRI if clinically indicated, are recommended. Dictated by: Belen Reece M.D. The radiology attending physician has personally reviewed this study, and had reviewed and/or edited this written report and agrees with it. Electronically signed by: [place] Mantilla M.D. Snow Calabrese MD IMG MRI PROCEDURES Final Re sult documented in this encounter Visit Diagnoses Diagnosis Family history of breast cancer Family history of malignant neoplasm of breast documented in this encounter Administered Medications Inactive Administered Medications - up to 3 most recent administrations Medication Order MAR Action Action Date Dose Rate Site gadoterate meglumine 0.5 mmol/mL injection 14.94 mL 14.94 mL (0.2 mL/kg ? 74.7 kg), intravenous, Once in imaging, contrast, Starting on Kathleen 12/17/21 at 0818, For 1 dose, Imaging Protocol Orders Contrast Given 12/17/2021 8:18 AM CDT 12 mL documented in this encounter Orders Medications Ordered That Gab ht Not Have Been Administered Count Last Ordered Date First Ordered Date gadoterate meglumine 0.5 mmo l/mL injection 14.94 mL 1 12/17/2021 documented in this encounter Care Teams Live Truck Technician Relationship Specialty Start Date End Date Almita Smallwood MD [address] [place] [address] PCP - General 04/17/20 02/14/23 Almita Smallwood MD [address] [place] [address] Internal Medicine 04/17/20 Jacek Laura MD [address] [place] [phone] Referring Physician Hematology 06/02/21 06/28/22 documented as of this encounter
--- OUTSIDE RECORDS SUMMARY | 2024-04-21 12:17 | XMS_ITS | Encounter Summary ---
Author Organization [facility] Healthcare Address [address] [place] [address] Care Team Providers Care Obstetrics Gyn Physician Name Role Phone Almita Smallwood MD Primary Care Provider + Almita Smallwood MD Unavailable [phone] Yuri Rocha MD Unavailable [phone] Reason for Referral * Diagnostic Imaging (Routine) - Closed Specialty Diagnoses / Procedures Referred By Tati campos Referred To Contact Diagnoses Encounter for screening mammogram for breast cancer Procedures Screening Mammogram Bilateral W Snow Noe MD [address] [place] [address] Phone: tel: fax: [address] [address] Referral ID Status Reason Start Date Expiration Date Visits Re quested Visits Authorized [id number] Closed 08/06/2021 09/05/2022 1 1 Reason for Visit * Diagnostic Imaging (Routine) - Closed Specialty Diagnoses / Procedures Referred By Tati campos Referred To Contact Diagnoses Encounter for screening mammogram for breast cancer Procedures Screening Mammogram Bilateral W Snow Noe MD [address] [facility] [place] [address] Phone: tel: fax: [address] [address] Referral ID Status Reason Start Date Expiration Date Visits Re quested Visits Authorized [id number] Closed 08/06/2021 09/05/2022 1 1 Encounter Details Date Type Department Care Team (Latest Contact Info) Description 06/29/2022 7:30 AM CDT - 06/29/2022 11:59 PM CDT Hospital Encounter [facility] Imaging and Radiology [address] [place] [address] GuanakitoSnow ojeda MD [address] [place] [address] Encounter for screening mammogram for breast cancer [...] on file Legal Sex Female 3:38 AM RN VISITING Gender Identity Not on file Sexual Orientation Not on file 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 FINAL ASSESSMENT: BI-RADS Category 2: Benign. RECOMMENDATION: Recommend return for annual screening mammogram in 12 months. ?? Electronically signed by: Nuria Jaffe M.D. Narrative 06/29/2022 8:26 AM CDT EXAMINATION: BILATERAL SCREENING MAMMOGRAM COMPARISON: Multiple prior studies, most recently [facility] 06/25/2021 and dating back to 08/28/2015. TECHNIQUE: Full-field 2D and digital breast tomosynthesis (DBT) images were obtained. CAD was utilized. BREAST PARENCHYMAL COMPOSITION: ??The breasts are heterogenously dense, which may obscure small masses. FINDINGS: There is no suspicious mass, calcification, or distortion in either breast. There has been no significant interval change from the prior study. ??Findings are compatible with left breast conservation therapy. ??Postop changes are seen in the right breast. Snow Calabrese MD IMG MAMMO PROCEDURES Final Result documented in this encounter Visit Diagnoses Diagnosis Encounter for screening mammogram for breast cancer documented in this encounter Care Teams Obstetrics Gyn Physician Relationship Specialty Start Date End Date Almita Smallwood MD [address] [place] [address] PCP - General 04/17/20 02/14/23 Almita Smallwood MD [address] [place] [address] Internal Medicine 04/17/20 [place] [address] [facility] [address] [place], [place] [id number] Surgeon General Surgery 04/07/22 documented as of this encounter
--- OUTSIDE RECORDS SUMMARY | 2024-04-21 12:17 | XMS_ITS | Encounter Summary ---
Author Organization [facility] Address [address] [place] [address] Phone Care Team Providers Care Scanning Clerk Name Role Phone Almita Smallwood MD Primary Care Provider + Almita Smallwood MD Unavailable [phone] Jacek Laura MD Unavailable Encounter Details Date Type Department Care Team (Late st Contact Info) Description 06/19/2021 Telephone [facility] Surgery [address] [facility] Advanced Medicine 5th [place] [address] [place] [address] Anna Wu CPhT Social History [...] on file Legal Sex Female 3:38 AM SHORT ORDER COOK Gender Identity Not on file Sexual Orientation Not on file 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 T ORDER COOK documented in this encounter Plan of Treatment Not on file documented as of this encounter Visit Diagnoses Not on filedocumented in this encounter Care Teams Scanning Clerk Relationship Specialty Start Date End Date Almita Smallwood MD [address] [place] [address] PCP - General 04/17/20 02/14/23 Almita Smallwood MD [address] [place] [address] Internal Medicine 04/17/20 Jacek Laura MD [address] [phone] Referring Physician Hematology 06/02/21 06/28/22 documented as of this encounter
--- OUTSIDE RECORDS SUMMARY | 2024-04-21 12:17 | XMS_ITS | Encounter Summary ---
Author Organization [facility] Address [address] [place] [address] Phone Care Team Providers Care Financial Institution Vice President Name Role Phone Wolfgang Smallwood MD Primary Care Provider + Wolfgang Smallwood MD Unavailable [phone] Jacek Laura MD Unavailable [phone] Reason for Visit * Reason Comments Consult * Consultation (Routine) - Closed Specialty Diagnoses / Procedures Referred By Contac t Referred To Contact Surgical Oncology Diagnoses 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 [address] [place] [address] Phone: tel: fax: Linda Buckley MD PhD [address] [facility] [id number] [place] [address] Phone: tel: fax: Referral ID Status Reason Start Date Expiration Date V isits Requested Visits Authorized [id number] Closed Specialty Services Required 04/29/2021 05/29/2022 1 1 Encounter Details Date Type Department Care Team (Late st Contact Info) Description 08/06/2021 3:00 PM CDT Office Visit [facility] Surgery [facility] 5th [place] [address] [place] [address] Linda Buckley MD PhD [address] [facility] [id number] [place] [address] Encounter for follow-up surveillance of breast cancer (Primary Dx); History of partial mastectomy of left breast; Hx of lymph node excision; 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 breast Social History Tobacco Use Types Packs/Day Years [...] on file 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 Gender Identity Not on file Sexual Orientation Not on file 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 Job End Date [employer] for 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 (contracted out thru [employer]) Not on file Not on file Not on file documented as of this encounter Last Filed Vital Signs Vital Sign Reading Time Taken Comments Blood Pressure - - Pulse - - Temperature - - Respiratory Rate - - Oxygen Saturation - - Inhaled Oxygen Concentration - - Weight 74.7 kg (164 lb 10.9 oz) 08/06/2021 3:29 PM CDT Height 165.8 cm (5' 5.28 ) 08/06/2021 3:29 PM CD T Body Mass Index 27.17 08/06/2021 3:29 PM CDT documented in this encounter Progress Notes * Linda Buckley MD PhD - 08/06/2021 3:00 PM CDT Chief complaint: Encounter to establish care of left breast DCIS s/p BCT Wolfgang Obando* requested that I see JONAS Hines 1960, in consultation for hx of partial mastectomy for left breast DCIS. HPI: Patient is a 61 y.o. Woman treated for left breast DCIS in 2017 with a breast conserving surgery inAugust of 2016. She did undergo radiation therapy and has intermittently been on tamoxifen. As of today, she has been off of tamoxifen however she did see Dr. Snow Calabrese with plans to begin again. This was a grade 1 ER+/SC+ DCIS. She also has a history of a right axillary lymph node biopsy in 2019 which was benign. Her last mammogram was in June of 2021 which was benign. She has no breast complaints. She specifically denies nipple discharge, skin reddening, skin thickening, masses, pain.. MOLDER HISTORY: Patient underwent menarche at age 15. She is and delivered her first child at theage of 22. She has used oral contraceptives in the past and is not currently using them . She has used hormone replacement therapy in the past and is not currently using any. She is postmenopausal atthe age of 48 by a natural menopause. She reports her left breast DCIS as her only procedure on the breast. Past Medical History: Diagnosis Date ??? Breast cancer (CMS/HCC) (HCC) 11/2016 no chemo/radiation ??? Smoking Past Surgical History: Procedure Laterality Date ??? BREAST BIOPSY Right 2017? benign needle? bx, axilla ??? BREAST BIOPSY Left 2017 malig bx ??? BREAST BIOPSY Right ? benign needle bx ??? BREAST LUMPECTOMY Left 11/2016 For Stage 0 breast CA at [facility] in [place], [place]. No chemorx or XRT, only Tamoxifen. ??? TUBAL LIGATION Medications: HOME MEDICATIONS : albuterol HFA (PROVENTIL HFA,VENTOLIN HFA,PROAIR HFA) 90 mcg/actuation inhaler collagen, hydrolysate, bovine, (COLLAGEN, HYDR, BOVINE,, BULK, MISC) uteqwalwudb-dgmkydmsn-ajkeclgw (TRELEGY ELLIPTA) 100-62.5-25 mcg inhaler levocetirizine (XYZAL) 5 mg tablet montelukast (SINGULAIR) 10 mg tablet multivitamin liquid naproxen (NAPROSYN) 500 mg tablet Allergies: No Known Allergies Social History Tobacco Use ??? Smoking status: Former Smoker Quit date: 2005 Years since quittin.3 ??? Smokeless tobacco: Never Used Substance Use Topics ??? Alcohol use: Yes Comment: rarely Family History: Cancer-related family history includes Breast cancer in her father's sister. There is no history of Ovarian cancer or Thyroid cancer. Review of systems: Review of systems is negative other than complaints as documented above or on the scanned patient health history form. Exam Vital signs: She is tall and weighs lbs. General: Well-developed and well-nourished. Neuro: Patient is awake and alert and cooperative. Psych: Appropriate mood and affect for this visit. HEENT: Normocephalic, atraumatic. Anicteric sclera, extraocular eye movements intact, hearing is grossly intact. No nasal discharge. Moist mucous membranes. Neck: Supple without overt masses or adenopathy. Respiratory: There is no obvious wheezing or dyspnea. No use of accessory muscles of respiration. Cardiovascular: Pulse is regular. No peripheral edema. No jugular venous distention. Gastrointestinal: Abdomen is soft without evidence of peritonitis. Lymphatics: There is no cervical, supraclavicular, or infraclavicular adenopathy. Skin: There are no worrisome skin lesions in the examined skin. Breasts: She has grade 1 ptosis. The breasts are normal in contour. Bra size 36B. She has prominentinframammary folds medially. Right Breast: There is no obvious skin changes, dimpling, nor retraction. There is no palpable dominant mass. The nipple and areola are without erosion, ulceration, or obvious discharge. Examination of the axillary tail and contents shows no concerning mass or adenopathy. Left Breast: There is no obvious skin changes, dimpling, nor retraction. There is no palpable dominant mass. The nipple and areola are without erosion, ulceration, or obvious discharge. Examination of the axillary tail and contents shows no concerning mass or adenopathy. Lab/Radiology/Diagnostic Review: I personally reviewed the imaging. EXAMINATION: SCREENING MAMMOGRAM BILATERAL W RUTH ?? ORDERING HEALTHCARE PROVIDER: WOLFGANG OBANDO ?? HISTORY: Routine screening mammography. ?? COMPARISON: 02/21/2020, 06/21/2018, 10/21/2017, 05/26/2017, 11/22/2016, 10/27/2016, 09/21/2016. ?? TECHNIQUE: CC and MLO views of the bilateral breasts were obtained with digital technique using breast tomosynthesis with C view. Computer aided detection was utilized. ?? FINDINGS: DENSITY: The tissue of the bilateral breasts is heterogeneously dense, which may obscure small masses. ?? BREASTS: There are post-operative findings in the left breast. There are bilateral breast biopsy clips. There are no suspicious masses, suspicious calcifications, or other suspicious findings in either breast. There has been no suspicious interval change. ?? IMPRESSION: There is no mammographic evidence of malignancy. Routine screening mammography is recommended in 1 year. ? BI-RADS: 2 - Benign. ? The patient will be entered into a reminder system with a target due date of 1 year for her next mammogram. ?? Electronically signed by: Warner Cartagena M.D. ASSESSMENT 1. Left breast DCIS , ER+/SC+, pTis- Stage 0 2. Hx of Left partial mastectomy PLAN:Lisa's exam and most recent imaging are benign. She has no evidence of disease recurrence. She will return to clinic in June 2022 for Bilateral screening mammogram. I answered all her questions today. She knows to call with questions. Thank you for the kind referral and opportunity to be involved in the care of Lisa Hermosillo.Please call with questions. This note is dictated and transcribed by [employer]. Rinkman variances may occur. Despite proofreading, typographical errors may occur. Cc: Wolfgang Obando* This note was repaired with the assistance of the breast fellow Dr. Tracy Castillo. documented in this encounter Plan of Treatment Scheduled Referrals Name Type Priority Associated Diagnoses Order Schedule Ambulatory referral to Breast Surgery Outpatient Referral Routine 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 breast Ordered: 04/29/2021 documented as of this encounter Visit Diagnoses Diagnosis Encounter for follow-up surveillance of breast cancer- Primary History of partial mastectomy of left breast Hx of lymph node excision 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 breast documented in this encounter Care Teams Financial Institution Vice President Relationship Specialty Start Date End Date Wolfgang Smallwood MD [address] [place] [address] PCP - General 04/17/20 02/14/23 Wolfgang Smallwood MD [address] [place] [address] Internal Medicine 04/17/20 Jacek Laura MD [address] [id number] Referring Physician Hematology 06/02/21 06/28/22 documented as of this encounter
--- OUTSIDE RECORDS SUMMARY | 2024-04-21 12:17 | XMS_ITS | Encounter Summary ---
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 Name Role Phone Almita Smallwood MD Primary Care Provider + Almita Smallwood MD Unavailable [phone] Jacek Laura MD Unavailable [phone] Yuri Rocha MD Unavailable [phone] Boone Dunham DO Primary Care Provider [phone] Angela Garza NP Primary Care Provider [phone] Encounter Details Date Type Department Care Team (Late st Contact Info) Description 06/08/2021 Telephone [facility] Oncology [address] 7[address] [place] [address] [place] [address] Stella Page Social History Tobacco Use Types Packs/Day Years [...] on file 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 Gender Identity Not on file Sexual Orientation Not on file 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[employer]) Not on file Not on file Not on file documented as of this encounter Plan of Treatment Not on file documented as of this encounter Visit Diagnoses Not on filedocumented in this encounter Care Teams Crown Assembly Machine Operator Relationship Specialty Start Date End Date Almita Smallwood MD [address] [place] [address] PCP - General 04/17/20 02/14/23 [place] [address] [place], [place] [id number] PCP - General Internal Medicine 02/15/23 12/08/23 Angela Garza NP [address] [place] [address] PCP - General Cardiovascular Disease 12/09/23 Almita Smallwood MD [address] [place] [address] Internal Medicine 04/17/20 Jacek Laura MD [address] [facility] [address] [place] [address] Referring Physician Hematology 06/02/21 06/28/22 [place] [address] [place], [place] [id number] Surgeon General Surgery 04/07/22 documented as of this encounter
--- OUTSIDE RECORDS SUMMARY | 2024-04-21 12:17 | XMS_ITS | Encounter Summary ---
Author Organization [facility] Address [address] [place] [address] Phone Care Team Providers Care Welt Sewer Name Role Phone Almita Smallwood MD Primary Care Provider + Almita Smallwood MD Unavailable [phone] Jacek Laura MD Unavailable [phone] Reason for Referral * MRI/CAT/PET Scan (Routine) - Closed Specialty Diagnoses / Procedures Referred By Tati campos Referred To Contact Radiology Diagnoses Family history of breast cancer Procedures MRI Breast Bilateral W WO Contrast Snow Calabrese MD [address] [place] [address] Phone: tel: fax: [address] [address] Referral ID Status Reason Start Date Expiration Date Visits Re quested Visits Authorized [id number] Closed 08/06/2021 09/05/2022 1 1 * Diagnostic Imaging (Routine) - Closed Specialty Diagnoses / Procedures Referred By Tati campos Referred To Contact Diagnoses Encounter for screening mammogram for breast cancer Procedures Screening Mammogram Bilateral W Chris Snow Calabrese MD [address] [place] [address] Phone: tel: fax: [facility] [address] [place] [address] Referral ID Status Reason Start Date Expiration Date Visits Re quested Visits Authorized [id number] Closed 08/06/2021 09/05/2022 1 1 Reason for Visit * Consultation (Routine) - Closed Specialty Diagnoses / Procedures Referred By Contac t Referred To Contact Oncology Diagnoses Malignant neoplasm of female breast, unspecified estrogen receptor status, unspecified laterality, unspecified site of breast (HCC) Referral, Self [facility] [address] [facility] [address] [place] [address] [place] [address] Phone: tel: fax: Referral ID Status Reason Start Date Expiration Date V isits Requested Visits Authorized [id number] Closed Specialty Services Required 05/29/2021 06/28/2022 99 99 Encounter Details Date Type Department Care Team (Late st Contact Info) Description 08/06/2021 8:00 AM CDT Office Visit [facility] [address] [place] [address] Snow Calabrese MD [address] [facility] [address] [place], [place] [id number] 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 breast (Primary Dx); Encounter for monitoring tamoxifen therapy; Prophylactic use of tamoxifen; Encounter for follow-up surveillance of breast cancer; Encounter for screening mammogram for breast cancer; Dense breast tissue on mammogram; Breast cancer screening, high risk patient; Breast neoplasm, Tis (LCIS), left; Malignant neoplasm of female breast, unspecified estrogen receptor status, unspecified laterality, unspecified site of breast (HCC); Family history of breast cancer Social History [...] on file 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 Gender Identity Not on file Sexual Orientation Not on file 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[employer]) Not on file Not on file Not on file documented as of this encounter Last Filed Vital Signs Vital Sign Reading Time Taken Comments Blood Pressure 145/78 08/06/2021 8:20 AM CDT Pulse 87 08/06/2021 8:20 AM CDT Temperature 36.5 ??C (97.7 ??F) 08/06/2021 8:20 AM CD T Respiratory Rate 16 08/06/2021 8:20 AM CDT Oxygen Saturation 94% 08/06/2021 8:20 AM CDT Inhaled Oxygen Concentration - - Weight 74.7 kg (164 lb 9.6 oz) 08/06/2021 8:20 A M CDT Height 165.8 cm (5' 5.28 ) 08/06/2021 8:20 AM CD T Body Mass Index 27.16 08/06/2021 8:20 AM CDT documented in this encounter Ordered Prescriptions Prescription Sig Dispense Quantity Refills Last Filled Start Date End Date tamoxifen (NOLVADEX) 20 mg tabletIndications: prevention of breast cancer in high risk women Take 1 tablet (20 mg total) by mouth daily 90 tablet 3 08/06/2021 08/12/2021 documented in this encounter Progress Notes * Snow Calabrese MD - 08/06/2021 8:00 AM CDT Chief complaint: DCIS. TREATMENT HISTORY ?? 10/27/16 left breast stereotactic biopsy showed DCIS, G1 ?? Left partial mastectomy 11/22/16 ?? No XRT due to low Oncotype DCIS (score [address] Thorpe's 11/14/18 note) ?? Tamoxifen started January 2017 and self-discontinued July 2019 although she admitted to Dr. Thorpe that she often forgot doses ?? Right axillary node excisional biopsy 11/06/18, benign ?? Tamoxifen restarted Feb 2020 and self-discontinued Jan 2021 (total 3 1/2 years as of 08/06/21) ?? Tamoxifen resumption 08/06/21 Per her oncology consultation at [facility] 02/22/[address] Cain, she was treated in at [facility] in 2016 (partial mastectomy 11/22/16) for DCIS (G2 DCIS [...] notesshe took it for about 2 1/2 years today. She was again started on tamoxifen 02/22/20 after establishing care with Dr. Cain at [facility]. She stopped HRT at the time of her diagnosis. She was on paroxetine which was changed to venlafaxine when she started tamoxifen. She tolerated tamoxifen well without any real side effects. She stopped it when she was being worked up for a thickened endometrium. Risk assessment data: Lisa Hermosillo has been 3 time(s) and she has 2 living children. She delivered her first child at age -. Menarche: 15. Menopause status: postmenopausal. LMP 2014 (age 55) She has not undergone a hysterectomy or oophorectomy. HRT use: Used 1-2 years until DCIS diagnosis Contraception (if premenopausal): N/A Past medical history: Patient Active Problem List Diagnosis ??? 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 breast ??? Asthma, chronic, mild persistent, uncomplicated ??? Centrilobular emphysema (CMS/HCC) (HCC) ??? Multiple idiopathic cysts of lung ??? Personal history of tobacco use ??? Osteoporosis screening ??? Breast neoplasm, Tis (LCIS), left ??? Breast cancer screening, high risk patient ??? Dense breast tissue on mammogram ??? Encounter for screening mammogram for breast cancer ??? Encounter for follow-up surveillance of breast cancer ??? Prophylactic use of tamoxifen ??? Encounter for monitoring tamoxifen therapy Past Medical History: Diagnosis Date ??? Breast cancer (CMS/HCC) (HCC) 11/2016 no chemo/radiation ??? Smoking Past surgical history: Past Surgical History: Procedure Laterality Date ??? BREAST BIOPSY Right 10/17/2018 benign axillary node ??? BREAST BIOPSY Left 10/27/2016 DCIS ??? BREAST BIOPSY Right ? benign needle bx ??? DILATION AND CURETTAGE OF UTERUS 06/11/2021 benign ??? ENDOMETRIAL BIOPSY 06/27/2020 benign ??? MASTECTOMY, PARTIAL Left 11/22/2016 For Stage 0 breast CA at [facility] in [place], [place]. No chemorx or XRT, only Tamoxifen. ??? TUBAL LIGATION Social history: Social History Tobacco Use ??? Smoking status: Former Smoker Quit date: 2004 Years since quittin.3 ??? Smokeless tobacco: Never Used Substance Use Topics ??? Alcohol use: Yes Comment: rarely Allergies: No Known Allergies Medications: Current Outpatient Medications: ??? collagen, hydrolysate, bovine, (COLLAGEN, HYDR, BOVINE,, BULK, MISC), by Misc.(Non-Drug; Combo Route) route. ??? cyclobenzaprine, 5-10 mg, oral, BID PRN ??? levocetirizine, Take 5 mg by mouth ??? montelukast, 10 mg, oral, Nightly ??? multivitamin, 6 each, oral, Daily ??? naproxen, 500 mg, oral, BID PRN ??? UNABLE TO FIND, Vitamin B12 daily ??? albuterol HFA, 2 puff, inhalation, q4h PRN (Patient not taking: Reported on 08/06/2021) ??? diclofenac DR, TAKE 1 TABLET BY MOUTH TWICE DAILY WITH MEALS FOR 14 DAYS (Patient not taking: Reported on 08/06/2021) ??? enyjxtwrgyj-hkrntvisi-lrpmcnow, 1 puff, inhalation, Daily (Patient not taking: Reported on 08/06/2021) ??? montelukast, 10 mg, oral, Daily ??? tamoxifen, 20 mg, oral, Daily Family history of cancer: Children: Yon is 40 and Celine is 38 Mother: colorectal cancer, diagnosed at 59. at age 61 due to cancer. Father: leukemia/lymphoma diagnosed at ?. Vital status not discussed or unknown. Sister(s): 1. Arti 2. Cara 3. Kallie--CRC at 54, now alive at 65 4. Radha 5. Courtney--, no cancer 6. Vicky 7. Morena 8. Pat Brother(s): 1. Rafael 2. Easton-- due to heart disease Her mother was one of 5 kids total. No real health info. No cancer in MGM or MGF. Maternal ethnicity: Possible remote AJ Her father was one of 6 children. His sister had breast cancer at 85. No cancer in PGM or PGF. Scanned pedigree 08/06/2021 Review of systems: Review of Systems Constitutional: 30# weight gain Musculoskeletal: Positive for back pain. Sciatica worse with weight gain Exam Vitals: 08/06/21 0820 BP: 145/78 BP Location: Left arm Pulse: 87 Resp: 16 Temp: 36.5 ??C (97.7 ??F) TempSrc: Temporal SpO2: 94% Weight: 74.7 kg (164 lb 9.6 oz) Height: 165.8 cm (5' 5.28 ) Body mass index is 27.16 kg/m??. Physical Exam Constitutional: Appearance: She is well-developed. HENT: Head: Normocephalic and atraumatic. Eyes: General: No scleral icterus. Conjunctiva/sclera: Conjunctivae normal. Neck: Thyroid: No thyromegaly. Cardiovascular: Rate and Rhythm: Normal rate. Pulmonary: Effort: Pulmonary effort is normal. No respiratory distress. Breath sounds: Normal breath sounds. No stridor. Chest: Breasts: Breasts are symmetrical. Right: No inverted nipple, mass, nipple discharge, skin change, tenderness, axillary adenopathy or supraclavicular adenopathy. Left: No inverted nipple, mass, nipple discharge, skin change, tenderness, axillary adenopathy or supraclavicular adenopathy. Comments: Almost imperceptible right axillary and left [...] Judgment: Judgment normal. Imaging/data review: Breast imaging ??? breast MRI 11/05/16 at [facility]. BI-RADS 6. Minimal enhancement around her left biopsy clip. ??? left diagnostic mammogram 05/26/17 at [facility]. BI-RADS 2. This was her first post-BCT mammogram. ??? breast MRI 10/16/18 at [facility]. BI-RADS 2. Per the report, she was having clear nipple discharge. ??? bilateral screening mammography 02/21/20. BI-RADS 2. Heterogeneously dense. ??? bilateral screening mammography 06/25/21 at [facility]. BI-RADS 2. Heterogeneously dense. Other imaging reports and data reviewed: I reviewed multiple notes in Care Everywhere back to 2016. Dr. Thorpe's 11/14/18 note summarized the treatment history and pathology; other data from oncology notes back to [address] Laura and as recently as 02/22/[address] Cain ??? 01/2011 left US-guided biopsy, UDH, duct ectasia ??? 10/27/16 left breast stereotactic biopsy showed DCIS, G1 ??? 11/22/16 Left partial mastectomy showed DCIS, G1, 12 mm v 2 mm (both reported on oncology notes),ER/IL strongly positive, Oncotype DCIS 0; a note from 03/08/17 reported a 2 mm focus of DCIS, micropapillary type ??? 06/08/17 right US-guided biopsy showed fragments of cyst wall, focal fibrosis, sclerosing adenosis, focal CCC, benign hyperplasia ??? 10/17/18 right axillary node excisional biopsy, benign ??? Estradiol 01/07/17 c/w premenopausal status (104.8) although FSH c/w postmenopausal ??? 11/07/18 right axillary excisional biopsy, benign node ??? records/office visit notes from Dr. Obando. ??? Endometrial biopsy 06/27/20, benign ? ? D&C 06/11/21 showed focal squamous metaplasia, inactive endometrium Assessment/Plan: Left DCIS, G1, ER/IL strongly positive Tamoxifen AUB with benign D&C We reviewed guidelines recommending 5 years of endocrine therapy (she's taken tamoxifen about 3 1/2years in total), lack of survival benefit, 50% risk reduction in future breast cancer events, guideline recommendations that it is safe to resume tamoxifen following benign endometrial biopsy, etc. We reviewed short-term data looking at 5 mg taken for 3 years, although we don't have long- term data,nor have the 2 regimens been compared with each other. The risk reduction with tamoxifen is durable, and she has already received some risk reduction. We discussed raloxifene (less effective and less durable risk reduction although no impact on the uterus) and AIs (which can accelerate bone loss and cause arthralgias). She already deals with sciatic pain and she would not be interested in AIs. She is agreeable to restarting tamoxifen, given how well she tolerated it. Elevated lifetime breast cancer risk We recommend annual breast MRI for women whose lifetime risk is > 20% , so she is eligible. Given Her LCIS, I would estimate 1%/year so about 25% remaining lifetime risk. In addition, she has dense tissue and by ACR guidelines for that reason alone is eligible for supplemental screening. We discussed the caveats of MRI: ??? Although MRI has high sensitivity, it has low specificity and additional evaluation and biopsies may be recommended. ??? MRI requires IV gadolinium dye. Gadolinium has been shown to deposit in brain tissue, but this is of unknown significance. ??? MRI is expensive, and may be difficult for women to afford if they have high jwi-dl-zbkzip costs. MRI may be difficult for women with claustrophobia or for whom laying on their stomach for the duration of the study is difficult or uncomfortable. Women who are or who may become cannot undergo breast MRI, and nor can women with poor creatinine clearance. When annual screening MRI is performed in conjunction with annual mammography, we ideally stagger the studies by 6 months. Family history of breast and colon cancer At this point she does not meet criteria for genetic testing (non-invasive with only one other affected family member). She is UTD on colonoscopy and had one in 2020, she thinks. A 5 year follow-up was recommended. Maybe polyps. Return to clinic: in one year Mammogram: Due June 2022 MRI: Due Dec 2021 I encouraged Lisarachel San , who seems happy with this plan, to contact me with any questions or concerns, and all questions were answered to the best of my ability. I appreciate the kind referral. My total encounter time on 08/06/2021 was 60+ minutes which was spent in the activities documented in the note. This includes time spent prior to the visit and after the visit in direct care of the patient. This time does not include time spent in any separately reportable services. Snow Calabrese MD, FACS Medical Oncology [facility] documented in this encounter Plan of Treatment [...] MAMMOGRAM COMPARISON: Multiple prior studies, most recently [facility] 06/25/2021 and dating back to 08/28/2015. TECHNIQUE: [...] changes are seen in the right breast. us Snow Calabrese MD IMG MAMMO PROCEDURES [...] DCIS status post breast conservation treatment in 2016. ?? DATE OF LAST MENSTRUAL PERIOD: 10 years ago TECHNIQUE: MRI examination of the breasts per breast tumor protocol with and without gadolinium contrast. ??A dedicated breast imaging coil was used. ??The images were transferred to a breast CAD system for 3D post processing and contrast kinetics analysis. ?? CONTRAST: Gadoterate meglumine, 12 ml COMPARISON: Multiple prior mammograms dating back to 2016, most recently 06/25/2021 BREAST COMPOSITION: Heterogeneous fibroglandular [...] DCIS status post breast conservation treatment in 2016. DATE OF LAST MENSTRUAL PERIOD: 10 years ago TECHNIQUE: MRI examination of the breasts per breast tumor protocol with and without gadolinium contrast. A dedicated breast imaging coil was used. The images were transferred to a breast CAD system for 3D post processing and contrast kinetics analysis. CONTRAST: Gadoterate meglumine, 12 ml COMPARISON: Multiple prior mammograms dating back to 2016, most recently 06/25/2021 BREAST COMPOSITION: Heterogeneous fibroglandular [...] 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 breast- Primary Encounter for monitoring tamoxifen therapy Prophylactic use of tamoxifen Prophylactic use of selective estrogen receptor modulators (SERMs) Encounter for follow-up surveillance of breast cancer Encounter for screening mammogram for breast cancer Dense breast tissue on mammogram Breast cancer screening, high risk patient Screening mammogram for high-risk patient Breast neoplasm, Tis (LCIS), left Malignant neoplasm of female breast, unspecified estrogen receptor status, unspecified laterality, unspecified site of breast (HCC) Family history of breast cancer Family history of malignant neoplasm of breast Family history of breast cancer Family history of malignant neoplasm of breast Encounter for screening mammogram for breast cancer documented in this encounter Historical Medications * This list may reflect changes made after this encounter. montelukast (SINGULAIR) 10 mg tablet Take 1 tablet (10 mg total) by mouth nightly cyclobenzaprine (FLEXERIL) 5 mg tablet Take 5-10 mg by mouth 2 (two) times a day as needed 07/09/2021 UNABLE TO FIND Vitamin B12 daily 04/06/[address] (VOLTAREN) 75 mg EC tablet TAKE 1 TABLET BY MOUTH TWICE DAILY WITH MEALS FOR 14 DAYS 07/09/2021 04/06/2022 added in this encounter Orders Outpatient Referral Count Last Ordered Date Fir st Ordered Date AMB REFERRAL TO ONCOLOGY 1 08/06/2021 Appointment Requests Count Last Ordered Date Fi rst Ordered Date [facility] CLINIC APPOINTMENT REQUEST 1 023 documented in this encounter Care Teams Welt Sewer Relationship Specialty Start Date End Date Almita Smallwood MD [address] [place] [address] PCP - General 04/17/20 02/14/23 Almita Smallwood MD [address] [place] [address] Internal Medicine 04/17/20 Jacek Laura MD [address] [id number] Referring Physician Hematology 06/02/21 06/28/22 documented as of this encounter
--- OUTSIDE RECORDS SUMMARY | 2024-04-21 12:17 | XMS_ITS | Encounter Summary ---
Author Organization [facility] Address [address] [place] [address] Phone Care Team Providers Care Electronics Mechanic Apprentice Name Role Phone Almita Smallwood MD Primary Care Provider + Almita Smallwood MD Unavailable [phone] Yuri Rocha MD Unavailable [phone] Reason for Visit * Reason Comments Follow-up Encounter Details Date Type Department Care Team (Late st Contact Info) Description 06/29/2022 8:40 AM CDT Office Visit [facility] Oncology [address] [place] [address] GuanakitoSnow ojeda MD [address] [place], [place] [id number] 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 breast (Primary Dx); Breast neoplasm, Tis (LCIS), left; Prophylactic use of tamoxifen; Encounter for follow-up surveillance of breast cancer; Dense breast tissue on mammogram; Breast cancer screening, high risk patient; Encounter for screening mammogram for breast cancer; Family history of breast cancer Social History [...] Average Number of Drinks Not on file 04/21/2 022 Q3: How often do you have si x or more drinks on one occasion? 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[employer]) Not on file Not on file Not on file documented as of this encounter Last Filed Vital Signs Vital Sign Reading Time Taken Comments Blood Pressure 120/74 06/29/2022 8:39 AM CDT Pulse 79 06/29/2022 8:39 AM CDT Temperature 36.5 ??C (97.7 ??F) 06/29/2022 8:39 AM CD T Respiratory Rate 20 06/29/2022 8:39 AM CDT Oxygen Saturation 99% 06/29/2022 8:39 AM CDT Inhaled Oxygen Concentration - - Weight 70.3 kg (155 lb) 06/29/2022 8:39 AM CDT w ith shoes Height - - Body Mass Index 25.79 04/07/2022 8:39 AM NATURAL GAS SHOTHOLE DRILLER documented in this encounter Progress Notes * Guanakito, Snow Solorio MD - 06/29/2022 8:40 AM CDT Images from the original note [...] 08/06/21 and self-discontinued Apr 2022 (about 4 years). Per her oncology consultation at [facility] 02/22/[address] Cain, she was [...] after establishing care with Dr. Cain at [facility]. She stopped HRT at the time [...] effects. No vaginal bleeding. Due to see claims sorter. Colonoscopy for BRBPR March 2022. Normal. 5 year follow-up recommended. Doing Crossfit. When I saw her last year she reported weight gain and worsening of sciatic pain. Lost 30# and sciatica improved. Overall in good spirits. She did start a part-time job working at the [employer]. Risk assessment data: Lisa Hermosillo has been [...] Asthma, chronic, mild persistent, uncomplicated Centrilobular emphysema (CMS/HCC) (HCC) Multiple idiopathic cysts of lung Personal history of tobacco use Osteoporosis screening Breast neoplasm, Tis (LCIS), left Breast cancer screening, high risk patient Dense breast tissue on mammogram Encounter for screening mammogram for breast cancer Encounter for follow-up surveillance of breast cancer Prophylactic use of tamoxifen Encounter for monitoring tamoxifen therapy Past Medical History: Diagnosis Date Breast cancer (CMS/HCC) (HCC) 11/2016 no chemo/radiation Smoking Past surgical history: Past Surgical History: Procedure Laterality Date BREAST BIOPSY Right 10/17/2018 benign axillary node BREAST BIOPSY Left 10/27/2016 DCIS BREAST BIOPSY Right ? benign needle bx DILATION AND CURETTAGE OF UTERUS 06/11/2021 benign ENDOMETRIAL BIOPSY 06/27/2020 benign MASTECTOMY, PARTIAL Left 11/22/2016 For Stage 0 breast CA at [facility] in [place], [place]. No chemorx or XRT, only Tamoxifen. TUBAL LIGATION Social history: Social History Tobacco Use Smoking status: Former Smoker Quit date: 2004 Years since quittin.3 Smokeless tobacco: Never Used Substance Use Topics Alcohol use: Yes Comment: rarely Allergies: No Known Allergies Medications: Current Outpatient Medications: collagen, hydrolysate, bovine, (COLLAGEN, HYDR, BOVINE,, BULK, MISC), by Misc.(Non-Drug; Combo Route) route. cyclobenzaprine, 5-10 mg, oral, BID PRN levocetirizine, Take 5 mg by mouth montelukast, 10 mg, oral, Nightly multivitamin, 6 each, oral, Daily naproxen, 500 mg, oral, BID PRN UNABLE TO FIND, Vitamin B12 daily albuterol HFA, 2 puff, inhalation, q4h PRN (Patient not taking: Reported on 08/06/2021) diclofenac DR, TAKE 1 TABLET BY MOUTH TWICE DAILY WITH MEALS FOR 14 DAYS (Patient not taking: Reported on 08/06/2021) bexnwyeiikw-ggwvreesd-fprwvtux, 1 puff, inhalation, Daily (Patient not taking: Reported on 08/06/2021) montelukast, 10 mg, oral, Daily tamoxifen, 20 mg, oral, Daily Family history [...] review: Breast imaging breast MRI 11/05/16 at [facility]. BI-RADS 6. Minimal enhancement around her left biopsy clip. left diagnostic mammogram 05/26/17 at [facility]. BI-RADS 2. This was her first post- BCT mammogram. breast MRI 10/16/18 at [facility]. BI-RADS 2. Per the report, she was having clear nipple discharge. bilateral screening mammography 02/21/20. BI-RADS 2. Heterogeneously dense. bilateral screening mammography 06/25/21 at [facility]. BI-RADS 2. Heterogeneously dense. Breast MRI 12/17/21, BI-RADS 2. Bilateral screening mammography 06/29/22, BI-RADS 2. Heterogeneously dense. Other imaging reports [...] 2 mm (both reported on oncology notes), ER/AK strongly positive, Oncotype DCIS 0; a note [...] Rocha (general surgery) Assessment/Plan: Left DCIS, G1, ER/AK strongly positive Tamoxifen AUB with benign D&C We reviewed guidelines recommending 5 years of endocrine therapy (she's taken tamoxifen about 4 years total). We reviewed short-term data looking at 5 mg taken for 3 years, although we don't have long-term data, nor have the 2 regimens been compared with each other. The risk reduction with tamoxifen is durable, and she has already received some risk reduction. Given that she was having no side effects and does still have a supply at home, she is agreeable to resuming this. Hopefully, we can getanother year and get her to about 5 years of therapy for maximal risk reduction. We previously discussed raloxifene (less effective and less durable risk reduction although no impact on the uterus) and AIs (which can accelerate bone loss and cause arthralgias). She already deals with sciatic pain and she would not be interested in AIs. She will continue annual mammography. We will [...] polyps on prior endoscopies. Summary Last appt 06/29/22 Return to clinic: in one year Last mammogram 06/29/22 Mammogram due June 2023 (bilateral screening) Last MRI 12/17/21 MRI due Dec 2022 I encouraged Lisa San , who seems happy with this plan, to contact me with any questions or concerns, and all questions were answered to the best of my ability. My total encounter time on 06/29/22 was 20 minutes which was spent in the activities documented in the note. This includes time spent prior to the visit and after the visit in direct care of the patient. This time does not include time spent in any separately reportable services. Snow Calabrese MD, FACS Medical Oncology [facility] documented in this encounter Plan of Treatment Not on file documented as of this encounter Visit Diagnoses Diagnosis 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 breast- Primary Breast neoplasm, Tis (LCIS), left Prophylactic use of tamoxifen Prophylactic use of selective estrogen receptor modulators (SERMs) Encounter for follow-up surveillance of breast cancer Dense breast tissue on mammogram Breast cancer screening, high risk patient Screening mammogram for high-risk patient Encounter for screening mammogram for breast cancer Family history of breast cancer Family history of malignant neoplasm of breast documented in this encounter Discontinued Medications Medication Sig Discontinue Reason Start Date End Da te albuterol HFA (PROVENTIL HFA,VENTOLIN HFA,PROAIR HFA) 90 mcg/actuation inhaler Inhale 2 puffs every 4 hours as needed 02/15/2020 06/29/2022 tkagmvutvum-gpleopdyn-kd lanter (TRELEGY ELLIPTA) 100-62.5-25 mcg inhaler Inhale 1 puff daily 04/16/202006/16 documented as of this encounter Orders Appointment Requests Count Last Ordered Date Fi rst Ordered Date ONCBCN CLINIC APPOINTMENT REQUEST 2 024 06/29/2022 documented in this encounter Care Teams Electronics Mechanic Apprentice Relationship Specialty Start Date End Date Almita Smallwood MD [address] [place] [address] PCP - General 04/17/20 02/14/23 Almita Smallwood MD [address] [place] [address] Internal Medicine 04/17/20 [place] [address] [place] [address] Surgeon General Surgery 04/07/22 documented as of this encounter
--- OUTSIDE RECORDS SUMMARY | 2024-04-21 12:17 | XMS_ITS | Encounter Summary ---
Author Organization [facility] Address [address] [place] [address] Phone Care Team Providers Care Concentrator Operator Name Role Phone Almita Smallwood MD Primary Care Provider + Almita Smallwood MD Unavailable [phone] Jacek Laura MD Unavailable [phone] Encounter Details Date Type Department Care Team (Late st Contact Info) Description 06/09/2021 Orders Only [facility] Oncology [address] [place] [address] Warner Ray MD [address] [place], [place] [id number] Malignant neoplasm of female breast, unspecified estrogen receptor status, unspecified laterality, unspecified site of breast (HCC) (Primary Dx) Social History Tobacco Use Types [...] on file 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 Gender Identity Not on file Sexual Orientation Not on file 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[employer]) Not on file Not on file Not on file documented as of this encounter Plan of Treatment Not on file documented as of this encounter Results * Surgical pathology (06/11/2021 10:02 AM MEN'S GOLF COACH) Tissue (Miscellaneous) 06/11/2021 10:02 AM MEN'S GOLF COACH 06/11/2021 10:02 AM MEN'S GOLF COACH Narrative [facility] - 06/17/2021 1:07 PM MEN'S GOLF COACH EPIC results best viewed via link to PDF [facility] Pathology Consult Service [address], [place] [address] Note to Patients: This report may contain [...] can answer questions and explain the details. SURGICAL PATHOLOGY REPORT * Consult Report * [facility] is providing an additional review of previously collected tissue. FINAL Patient Name: ??ANITHA HERMOSILLO Bharti Address: ??[address] [facility], ?[place], [place] ??[address] Gender: ??F : ??1960 (Age: 61) Hospital #: ??[id number] Patient Type: ??WU Location: ??Medical Oncology Taken: ??06/11/2021 Received: ??06/11/2021 Accessioned: ??06/11/2021 Reported: ??06/17/2021 Physician(s): Warner Ray M.D. [facility] Department of Pathology [facility] [address] [address] P: [phone] F: [phone] Diagnosis: Consult material received from [place], [place] (OSC [id number]; 01/26/11): Breast, left, 12:00, ultrasound-guided core biopsy ? - Fibrocystic changes with usual ductal hyperplasia, adenosis, apocrine metaplasia and microcysts - Pseudoangiomatous stromal hyperplasia (PASH) - Duct ectasia - No evidence of atypical hyperplasia, in situ carcinoma, or invasive carcinoma ? Consult material received from [place] (OSC [id number]; 10/27/16): Breast, left, upper outer, with calcifications, stereotactic guided core biopsy ? - Ductal carcinoma in situ (DCIS) ? - Nuclear grade = 1/3 by SBR criteria (low) - Cribriform and micropapillary types ? - Columnar cell change with atypia - Calcifications associated with above findings - No invasive carcinoma - Biomarkers (slides included for review) ? - Estrogen receptor: Positive; Luis Fernando score 5+2 = 8 - Progesterone receptor: Positive; Luis Fernando score 5+3 = 8 ? B. Breast, left, upper outer, without calcifications, stereotactic needle core biopsy ? - Atypical ductal hyperplasia ? - Columnar cell change - Pseudoangiomatous stromal hyperplasia - Microcalcifications associated with above findings - No evidence of invasive carcinoma Consult material received from [place] (OSC: [id number]; 11/23/16): Breast, left, upper outer quadrant, partial mastectomy with wire localization ? - No evidence of residual ductal carcinoma in situ (DCIS) ? - Residual atypical ductal hyperplasia - Lobular carcinoma in situ carcinoma (LCIS/atypical lobular hyperplasia (ALH) ? - Nuclear grade = 1/3 by SBR criteria (low) - Focal, measuring 1-2 mm, on one slide - Approximates resection margin ? - No invasive carcinoma - Columnar cell change with associated microcalcifications - Fibrocystic changes with sclerosing adenosis, apocrine metaplasia and microcysts - Biopsy site changes - Resection margins negative for DCIS or invasive carcinoma ?? Consult material received from [place] (OSC: [id number]; 11/07/2018). Lymph nodes, right axillary, excision ? - Four lymph nodes with no evidence of malignancy (0/4) ? - Dense organizing fibrous tissue suggestive of prior biopsy site ekaterina/06/12/2021 13:21 By this signature, I attest that the above diagnosis is based upon my personal examination of the slides(and/or other material indicated in the diagnosis). Aleksandr Trammell MD Report Electronically Reviewed and Signed Out By Aleksandr Trammell MD 06/17/2021 13:07:10 Microscopic Description and Comment: Microscopic findings substantiates the above cited diagnosis. We disagree with some portions of the outside diagnoses for this case. ??We do not believe that there is residual DCIS in this patient's 2017 lumpectomy case, and also note the presence of an atypical lobular process, which we would characterize as lobular carcinoma in situ/atypical lobular hyperplasia, in that lumpectomy Delfino Kang M.D. History: The patient is a 61 year old woman with a history of right breast DCIS diagnosed in 2017. ??Slides from multiple procedures are submitted for review. Materials Received: Received for review are two slides labeled [id number], eleven slides labeled [id number], thirteen slides labeled [id number], and two slides labeled [id number], accompanied by the corresponding pathology reports. The materials originated from [place], [place]. Selected slide(s) may be digitally scanned for our files, and all material is returned to the referring institution, along with a copy of our final report. Any testing required for diagnostic purposes was performed in the Department of Pathology and Immunology at [facility], [address] [place] [address] CLIA # [id number] The performance characteristics of the testing cited in this report (if any) were determined by the ??[facility] Department of Pathology and Immunology [facility], as part of an ongoing quality assurance tester program and in compliance with federally mandated regulations drawn from the Clinical Laboratory Improvement Act of 1988 (CLIA '88). ??Some of these tests rely on the use of analyte specific reagents (ASR) and are subject to specific labeling requirements by the US Food and Drug Administration. ??Such diagnostic tests may only be performed in a facility that is certified by the Department of Health and Human Services as a high complexity laboratory under CLIA '88. ??The FDA has determined that such clearance or approval is not necessary. ??ASRs should not be regarded as investigational or for research. ??ASRs were developed and the performance characteristics determined by the [facility], [facility] Department of Pathology and Immunology. ??It has not been cleared or approved by the U.S. Food and Drug Administration. ??Any test designated as LDT was developed and its performance characteristics determined by [facility]. It has not been cleared or approved by the FDA. This test is used for clinical purposes and should not be regarded as investigational or for research. Report images and/or scanned reports, if included, only viewable in PDF version of report. us Warner Ray MD LAB PATHOLOGY ORD ERABLES Final Result [facility] [address] [facility] [address] [place] [address] documented in this encounter Visit Diagnoses Diagnosis Malignant neoplasm of female breast, unspecified estrogen receptor status, unspecified laterality, unspecified site of breast (HCC)- Primary Malignant neoplasm of female breast, unspecified estrogen receptor status, unspecified laterality, unspecified site of breast (HCC) documented in this encounter Care Teams Concentrator Operator Relationship Specialty Start Date End Date Almita Smallwood MD [address] [place] [address] PCP - General 04/17/20 02/14/23 Almita Smallwood MD [address] [place] [address] Internal Medicine 04/17/20 Jacek Laura MD [address] [place] [phone] Referring Physician Hematology 06/02/21 06/28/22 documented as of this encounter
--- OUTSIDE RECORDS SUMMARY | 2024-04-21 12:17 | XMS_ITS | Encounter Summary ---
Author Organization [facility] Address [address] [place] [address] Phone Care Team Providers Care Marine Railway Operator Name Role Phone Almita Smallwood MD Primary Care Provider + Almita Smallwood MD Unavailable [phone] Jacek Laura MD Unavailable [phone] Reason for Visit * Reason Onset Date Comments Scheduling Appointments 07/23/2021 Encounter Details Date Type Department Care Team (Late st Contact Info) Description 07/23/[address] 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 Calabrese to a different day of the week. Pt cannot come in on Tuesdays at all due to work schedule. Transferred pt to new patient schedulers to change consult appointment with Dr. Calabrese. documented in this encounter Plan of Treatment Not on file documented as of this encounter Visit Diagnoses Not on filedocumented in this encounter Care Teams Marine Railway Operator Relationship Specialty Start Date End Date Almita Smallwood MD [address] [place] [address] PCP - General 04/17/20 02/14/23 Almita Smallwood MD [address] [place] [address] Internal Medicine 04/17/20 Jacek Laura MD [address] [id number] Referring Physician Hematology 06/02/21 06/28/22 documented as of this encounter
--- OUTSIDE RECORDS SUMMARY | 2024-04-21 12:17 | XMS_ITS | Encounter Summary ---
Author Organization [facility] Healthcare Address [address] [place] [address] Care Team Providers Care Structural Shop Helper Name Role Phone Almita Smallwood MD Primary Care Provider + Almita Smallwood MD Unavailable [phone] Jacek Laura MD Unavailable [phone] Encounter Details Date Type Department Care Team (Late st Contact Info) Description 06/11/2021 11:00 AM TOLL SERVICE OBSERVER - 06/11/2021 12:30 PM [facility] Surgery [facility] Operating Room [address] [place] [address] Almita Obando MD [id number] [place] [id number] DILATION AND CURETTAGE/HYSTEROSCOP Y Surgery Details Date/Time Status Location OR Service Patient Class Case Class Case Type Trauma Case? 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 file Not on file Not on file documented as of this encounter Last Filed Vital Signs Vital Sign Reading Time Taken Comments Blood Pressure 129/60 06/11/2021 12:27 PM TOLL SERVICE OBSERVER Pulse 85 06/11/2021 12:27 PM TOLL SERVICE OBSERVER Temperature 37.4 ??C (99.3 ??F) 06/11/2021 11:[address] Respiratory Rate 12 06/11/2021 12:27 PM TOLL SERVICE OBSERVER Oxygen Saturation 98% 06/11/2021 12:27 PM TOLL SERVICE OBSERVER Inhaled Oxygen Concentration - - Weight - - Height - - Body Mass Index - - documented in this encounter Discharge Instructions * Discharge Instructions* Annmarie Amador RN - 06/11/2021 12:47 PM TOLL SERVICE OBSERVER FOLLOW UP CALLS You may get a [...] enough for us, we strive for EXCELLENCE! SERVICE OBSERVER * Attachments The following attachments cannot be sent through Care Everywhere. * Hysteroscopy (Discharge Care) (Bhutanese) * General Anesthesia (Discharge Care) (Bhutanese) * Naproxen (By mouth) (Bhutanese) * Dilation and Curettage (Discharge Care) (Bhutanese) documented in this encounter Medications at Time of Discharge collagen, hydrolysate, bovine, (COLLAGEN, HYDR, BOVINE,, BULK, MISC) by [facility]Non-[place] g; Combo Route) route. levocetirizine (XYZAL) 5 [...] 06/11/2021 04/06/2022 documented as of this encounter Ordered Prescriptions Prescription Sig Dispense Quantity Refills Last Filled Start Date End Date naproxen (NAPROSYN) 500 mg tablet Take 1 tablet (500 mg total) by mouth 2 (two) times a day as needed for pain (pain) 60 tablet 06/11/2021 04/06/2022 documented in this encounter Discharge Disposition Disposition Code Departure Means Destination Discharge to home or self care documented in this encounter H&P Notes * Almita Obando MD - 06/11/2021 10:38 AM CST I have reviewed the H&P, examined the patient, and endorse the findings as written. Plan of Care : Based on the above findings, I consider Lisa Hermosillo to be an acceptable risk for : Procedure(s): DILATION AND CURETTAGE/HYSTEROSCOPY/ 60 min SERVICE OBSERVER Source Note - Almita Obando MD - 06/10/2021 6:37 PM TOLL SERVICE OBSERVER Gynecology H&P SUBJECTIVE HPI: Lisa Hermosillo??is a ?61 y.o.??(1960)??Single white female. Postmenopausal since 2014. S/P Stage 0 (DCIS, ER+) left breast CA,??11/2016 lumpectomy. No XRT or chemorx, only Tamoxifen. She is??here for a hysteroscopy with D&C for evaluation of thickened endometrium??on pelvic ultrasound. 04/24/20 Pelvic ultrasound done for endometrial surveillance due to tamoxifen adjuvant therapy for left breast cancer: The uterus is 7.4 x 5.5 x 3.9 cm in size. ??It has a normal contour and echotexture. ??Midline endometrial echo complex ranges in thickness from 6 mm to 20 mm with increased blood flow noted in the endometrium. Incidental note made of multiple nabothian cysts with the largest measuring 10 mm in diameter. The right ovary measures 1.9 x 1.8 x 1.6 cm and the left ovary measures 1.9 x 2.0 x 1.2 cm in size. Color Doppler flow reveals normal blood flow to both ovaries. ??Both ovaries have a normal appearance. No free fluid seen in the cul-de-sac. ?? She returned on 06/27/20 for an endometrial biopsy but no endometrial tissue was present. Follow-up pelvic ultrasound in 6 months was recommended. 03/19/21 pelvic ultrasound The uterus demonstrates heterogeneous echogenicity and measures 7.1 x 3.5 x 5.1 cm. Endometrial thickness is 11 mm with a small amount of endometrial cavity fluid. Neither ovary is identified due to bowel gas . There is no free fluid. IMPRESSION: Heterogeneous nonenlarged uterus without focal lesion seen. Endometrial thickening of 11 mm. ??Differential includes hyperplasia, polyp and carcinoma.?? 04/29/21 Pap was normal, HR HPV negative. She denied any vaginal bleeding since her 06/27/20 endometrial biopsy. Menstrual History: Menarche Age: 15 years No LMP recorded (lmp unknown). Patient is postmenopausal. Period Pattern: None ?? Sexual History: Sexual History Gender of sexual partners: Men (Last sexually active in 2009.) Sexually Transmitted Infection History: None ? Problem List Unprioritized 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 breast OB History Para Term AB Living 3 2 2 1 2 SAB IAB Ectopic Multiple Live Births 0 1 0 2 # Outcome Date GA Lbr Rafa/2nd Weight Sex Delivery Anes PTL Lv 3 Term 1983 F Vag-Spont FILOMENA 2 Term 1981 M Vag-Spont FILOMENA 1 IAB Past Medical History: Diagnosis Date ??? Breast cancer (CMS/HCC) (HCC) Past Surgical History: Procedure Laterality Date ??? BREAST LUMPECTOMY Left 11/2016 For Stage 0 breast CA at [facility] in [place], [place] No chemorx or XRT, only Tamoxifen. ??? TUBAL LIGATION Social History Socioeconomic History ??? Marital status: Spouse name: Not on file ??? Number of children: 2 ??? Years of education: Not on file ??? Highest education level: Not on file Occupational History ??? 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 Tobacco Use ??? Smoking status: Former Smoker Quit date: 2005 Years since quittin.1 ??? Smokeless tobacco: Never Used Substance and Sexual Activity ??? Alcohol use: Yes Comment: rarely ??? Drug use: Never ??? Sexual activity: Not Currently Other Topics Concern ??? Not on file Social History Narrative ??? Not on file Social Determinants of Health Financial Resource Strain: Not on file Food Insecurity: Not on file Transportation Needs: Not on file Physical Activity: Not on file Stress: Not on file Social Connections: Not on file Intimate Partner Violence: Not on file Housing Stability: Not on file Family History Problem Relation Age of Onset ??? Other (Colon cancer at 49 yo, at 65 yo.) Mother ??? Other (Colon cancer at 55, survived) Sister No Known Allergies No medications prior to admission. Review of Systems Constitutional: negative for fevers Gastrointestinal: negative for nausea Genitourinary: negative for urinary complaints Neurological: negative for headaches OBJECTIVE Vitals: Arrival Vitals Temp Pulse Resp BP SpO2 Temp src Heart Rate Source Patient Position BP Location FiO2 (%) Physical Exam General: appears stated age and cooperative Lungs: non-labored Abdomen: soft, non-tender Extremities: extremities normal, warm and well-perfused Neurologic: alert and oriented x4, non-focal no lesions, no masses, no tenderness. Uterus is normal size and shape, no adnexal masses or tenderness. Heart: Regular rate and rhythm without murmur. ASSESSMENT / PLAN Lisa Hermosillo is a 61 y.o. female, being admitted for a hysteroscopy with D&C Consent reviewed. Risks of uterine perforation, infection and bleeding were discussed with the patient. Questions were invited and answered. Almita Obando MD 06/10/21 SERVICE OBSERVER * Almita Obando MD - 06/10/2021 6:37 PM CST Gynecology H&P SUBJECTIVE HPI: Lisa Hermosillo??is a ?61 y.o.??(1960)??Single white female. Postmenopausal since 2014. S/P Stage 0 (DCIS, ER+) left breast CA,??11/2016 lumpectomy. No XRT or chemorx, only Tamoxifen. She is??here for a hysteroscopy with D&C for evaluation of thickened endometrium??on pelvic ultrasound. 04/24/20 Pelvic ultrasound done for endometrial surveillance due to tamoxifen adjuvant therapy for left breast cancer: The uterus is 7.4 x 5.5 x 3.9 cm in size. ??It has a normal contour and echotexture. ??Midline endometrial echo complex ranges in thickness from 6 mm to 20 mm with increased blood flow noted in the endometrium. Incidental note made of multiple nabothian cysts with the largest measuring 10 mm in diameter. The right ovary measures 1.9 x 1.8 x 1.6 cm and the left ovary measures 1.9 x 2.0 x 1.2 cm in size. Color Doppler flow reveals normal blood flow to both ovaries. ??Both ovaries have a normal appearance. No free fluid seen in the cul-de-sac. ?? She returned on 06/27/20 for an endometrial biopsy but no endometrial tissue was present. Follow-up pelvic ultrasound in 6 months was recommended. 03/19/21 pelvic ultrasound The uterus demonstrates heterogeneous echogenicity and measures 7.1 x 3.5 x 5.1 cm. Endometrial thickness is 11 mm with a small amount of endometrial cavity fluid. Neither ovary is identified due to bowel gas . There is no free fluid. IMPRESSION: Heterogeneous nonenlarged uterus without focal lesion seen. Endometrial thickening of 11 mm. ??Differential includes hyperplasia, polyp and carcinoma.?? 04/29/21 Pap was normal, HR HPV negative. She denied any vaginal bleeding since her 06/27/20 endometrial biopsy. Menstrual History: Menarche Age: 15 years No LMP recorded (lmp unknown). Patient is postmenopausal. Period Pattern: None ?? Sexual History: Sexual History Gender of sexual partners: Men (Last sexually active in 2009.) Sexually Transmitted Infection History: None ? Problem List Unprioritized 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 breast OB History Para Term AB Living 3 2 2 1 2 SAB IAB Ectopic Multiple Live Births 0 1 0 2 # Outcome Date GA Lbr Rafa/2nd Weight Sex Delivery Anes PTL Lv 3 Term 1983 F Vag-Spont FILOMENA 2 Term 1981 M Vag-Spont FILOMENA 1 IAB Past Medical History: Diagnosis Date ??? Breast cancer (CMS/HCC) (HCC) Past Surgical History: Procedure Laterality Date ??? BREAST LUMPECTOMY Left 11/2016 For Stage 0 breast CA at [facility] in [place] No chemorx or XRT, only Tamoxifen. ??? TUBAL LIGATION Social History Socioeconomic History ??? Marital status: Spouse name: Not on file ??? Number of children: 2 ??? Years of education: Not on file ??? Highest education level: Not on file Occupational History ??? 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 Tobacco Use ??? Smoking status: Former Smoker Quit date: 2004 Years since quittin.1 ??? Smokeless tobacco: Never Used Substance and Sexual Activity ??? Alcohol use: Yes Comment: rarely ??? Drug use: Never ??? Sexual activity: Not Currently Other Topics Concern ??? Not on file Social History Narrative ??? Not on file Social Determinants of Health Financial Resource Strain: Not on file Food Insecurity: Not on file Transportation Needs: Not on file Physical Activity: Not on file Stress: Not on file Social Connections: Not on file Intimate Partner Violence: Not on file Housing Stability: Not on file Family History Problem Relation Age of Onset ??? Other (Colon cancer at 49 yo, at 63 yo.) Mother ??? Other (Colon cancer at 55, survived) Sister No Known Allergies No medications prior to admission. Review of Systems Constitutional: negative for fevers Gastrointestinal: negative for nausea Genitourinary: negative for urinary complaints Neurological: negative for headaches OBJECTIVE Vitals: Arrival Vitals Temp Pulse Resp BP SpO2 Temp src Heart Rate Source Patient Position BP Location FiO2 (%) Physical Exam General: appears stated age and cooperative Lungs: non-labored Abdomen: soft, non-tender Extremities: extremities normal, warm and well-perfused Neurologic: alert and oriented x4, non-focal no lesions, no masses, no tenderness. Uterus is normal size and shape, no adnexal masses or tenderness. Heart: Regular rate and rhythm without murmur. ASSESSMENT / PLAN Lisa Hermosillo is a 61 y.o. female, being admitted for a hysteroscopy with D&C Consent reviewed. Risks of uterine perforation, infection and bleeding were discussed with the patient. Questions were invited and answered. Almita Obando MD 06/10/21 SERVICE OBSERVER documented in this encounter Miscellaneous Notes * Result Encounter Note - Almita Obando MD - 06/11/2021 1:05 PM CST Solitario, please call this patient to let her know that the pathology report shows normal cervical canal tissue (endocervical) and normal uterine lining tissue (endometrium). We can discuss this further at her postoperative visit on 06/26/21. SERVICE OBSERVER * Brief Op Note - Almita Obando MD - 06/11/2021 11:00 AM CST Operative Progress Note Surgical Team: Surgeon(s) and Role: * lAmita Obando MD - Primary Anesthesiologist: Blacna Chan MD [employer]SE OPERATOR: Gayle Garibay CRNA Environmental Studies Faculty Member: Chris Rodriguez RN Scrub: Barbara Guerra RN Environmental Studies Faculty Member Second: Estephania Bauer RN FLOAT: Preeti Copeland RNFA DATE OF SURGERY : 06/11/2021 Preoperative Diagnosis: Thickened endometrium Postoperative Diagnosis: Post-op Diagnosis * Thickened endometrium [R93.89] Procedure(s): Procedure(s) (LRB): DILATION AND CURETTAGE/HYSTEROSCOPY (N/A) Operative Findings: Uterus sounded 8 cm. Thin endometrium. No uterine polyps. Estimated Blood Loss: 10 mL Intraoperative Fluids: 400 mls LR Specimens: ID Type Source Tests Collected by Time A : Endocervical curettage Tissue Endocervix, curettage SURGICAL PATHOLOGY Almita Obando MD 06/11/2021 1134 B : Uterine curettings Tissue Endometrial curettings SURGICAL PATHOLOGY Almita Sultana MD 06/11/2021 1144 Implants: Nothing was implanted during the procedure Blood/Blood Products Transfused: none Complications: None Condition on Discharge from the operating room was stable Almita Obando MD Date: 06/11/2021 Time: 12:26 PM No Resident involved on case SERVICE OBSERVER * Op Note - Almita Obando MD - 06/11/2021 12:00 AM TOLL SERVICE OBSERVER Preoperative Diagnosis Thickened endometrium. Postmenopausal on Tamoxifen Postoperative Diagnosis Thin endometrium. Procedures Diagnostic hysteroscopy, dilation and curettage. Surgeon Almita Obando MD. Anesthesia General by Dr. Patton and BEATRICE Hernandez. Intravenous Fluids 400 mL LR. Estimated Blood Loss 10 mL. Urine 20 mL. Drains None. Packs None. Disposition To PACU in stable condition. Findings The uterus sounded 8 cm. Endometrium was thin. No uterine polyps were seen. Summary The patient was taken to the operating room, placed in a supine position. After an adequate level of general anesthesia was obtained, she was placed in dorsal lithotomy position in low leg holders. The lower abdomen, upper thighs, perineum and vagina were prepped and draped in usual sterile fashion. In-and-out catheterization obtained 20 mL of urine. Donahue speculum was placed in the vagina. A small amount of Marcaine 0.25% with epinephrine was injected in the anterior cervical lip for placement of the single-tooth tenaculum; 15 mL of this Marcaine 0.25% with epinephrine was injected on either side of the cervix at 5 and 7 o'clock for a paracervical block. There was difficulty inserting the sound past the internal os. Endocervical curettage was performed with a Kevorkian curette, obtaining scant tissue with mucus. This was submitted for pathology evaluation. The hysteroscope was inserted into the cervical canal. The canal was deviated to the patient's left and curving medially. The hysteroscope was removed. The uterine sound was able to follow this path into the uterine cavity. Theuterus sounded 8 cm. The cervix was gradually dilated to accommodate a 20 García dilator. The hysteroscope was then reinserted. The uterine cavity appeared normal. Endometrium was thin. No polyps wereseen. The hysteroscope was removed. Sharp curettage to sample the entire uterine cavity was performed twice. Scant tissue was removed. The hysteroscope was reinserted. There was scant bleeding from the uterine cavity. The hysteroscope was removed. The tenaculum was removed from the cervix. No bleeding from the anterior cervical tenaculum site seen. The speculum was removed from the vagina. Sponge, needle and instrument counts were correct postprocedure. The patient was placed in a supine position. She was awakened and taken to PACU in stable condition. Job ID/VF Job ID: [id number] SERVICE OBSERVER documented in this encounter Plan of Treatment Not on file documented as of this encounter Procedures Procedure Name Priority Date/Time Associated Diagnosis Comments SURGICAL PATHOLOGY Routine 06/11/2021 2: 03 PM TOLL SERVICE OBSERVER Thickened endometrium DILATION AND CURETTAGE/HYSTEROSC OPY 06/11/2021 11:05 AM TOLL SERVICE OBSERVER Thickened endometrium documented in this encounter Results * Surgical pathology (06/11/2021 2:03 PM TOLL SERVICE OBSERVER) Tissue (Endocervix, curettage) 06/11/2021 11:34 AM TOLL SERVICE OBSERVER Tissue (Endometrial curettings) 06/11/2021 11:44 AM TOLL SERVICE OBSERVER Narrative PATHOLOGY CH - 06/12/2021 4:09 PM TOLL SERVICE OBSERVER EPIC results best viewed via link to PDF [facility] Department of Pathology [address] [place] [id number] Note to Patients: This report may [...] Final Report Patient Name: ??LISA HERMOSILLO Address: ??[address] [place] [address] , ??[place], [place] [address] Gender: ??F : ??1960 (Age: 61) Service: ??Surgery Location: ??[facility] #: ??[id number] Patient Type: ??[facility] Accession # ?[id number] Taken: ??06/11/2021 Received: ??06/11/2021 Accessioned: ??06/11/2021 Reported: ??06/12/2021 Physician(s):Almita Smallwood MD Diagnosis: A. ??Uterus, endocervix, curettage: ? -Strips and fragments of benign endocervical epithelium with focal squamous metaplasia. -Detached fragments of benign squamous epithelium. B. ??Uterus, endometrium, curettage: ? -Fragments of inactive endometrium with stromal breakdown. -Detached fragments of benign squamous epithelium. Ryanne Braga M.D. Report Electronically Reviewed and Signed Out By ??Ryanne Espinosa M.D. ??06/12/2021 16:09:10 Specimen(s) Received: A: Endocervical curettage B: Uterine curettings Microscopic Description: A. ??Microscopic examination of the endocervical curettage, examined at multiple levels shows strips and fragments of benign endocervix with focal squamous metaplasia as well as detached fragments of benign squamous epithelium. ??There is no evidence of dysplasia or malignancy. B. ??Microscopic examination of the endometrial curettage, examined at multiple levels shows minute fragment of inactive endometrium with stromal breakdown as well as detached fragments of benign squamous epithelium. ??There is no evidence of atypical hyperplasia dysplasia or malignancy. ??Recommend follow-up as clinically indicated. Clinical History: Thickened endometrium Procedure: dilation and curettage / hysteroscopy Gross Description: The specimen is submitted in two containers labeled Lisa Hermosillo . A. ??The first container is labeled endocervical curettage . ??It is an approximate 0.1 cc aggregate of blood tinged mucoid material. ??All in A. B. ??The second container is labeled uterine curettings . ??It is an approximate 0.1 cc aggregate of pink-agudelo mucosal tissue fragments. ??All in B. ??Segun David M.D., Ph.D./Barry Clark, P.A. REPORT IMAGES AND SCANNED DOCUMENTS, IF INCLUDED, ONLY VIEWABLE IN PDF VERSION OF REPORT The performance characteristics of some immunohistochemical stains, fluorescence in-situ hybridization tests and immunophenotyping by flow cytometry cited in this report (if any) were determined by the Surgical Pathology Department at [facility] as part of an ongoing senior supplier quality engineer program and in compliance with federally mandated [...] characteristics determined by the Surgical Pathology Department [facility]. ??It has not been cleared or approved by the U. S. Food and Drug Administration. Almita Obando MD LAB PATHOLOG Y ORDERABLES Final Result PATHOLOGY [address] [place] [address] documented in this encounter Visit Diagnoses Diagnosis Thickened endometrium Nonspecific (abnormal) findings on radiological and other examination of genitourinary organs Thickened endometrium Nonspecific (abnormal) findings on radiological and other examination of genitourinary organs documented in this encounter Administered Medications Inactive Administered Medications - up to 3 most recent administrations Medication Order MAR Action Action Date Dose Rate Site acetaminophen (TYLENOL) 500 mg tablet - ADS Override Pull Starting on Tue06/11/21 at 0929, For 1 dose, Created by cabinet override acetaminophen (TYLENOL) tablet 1,000 mg 1,000 mg, oral, Once, On Kathleen 06/11/21 at 1000, For 1 dose, Pre-Op, Indications: Pre-Emptive AnalgesiaIndications:Pre-E mptive Analgesia Given 06/11/2021 9:47 AM TOLL SERVICE OBSERVER 1,000 mg bupivacaine-EPINEPHrine (MARCAINE with EPI) 0.25 %-1:200,000 preservative free injection As needed, Starting on Kathleen 06/11/21 at 1129, Intra-Op Given 06/11/2021 11:29 AM TOLL SERVICE OBSERVER 30 mL Surgical Site celecoxib (CeleBREX) 200 mg capsule - ADS Override Pull Starting on Kathleen 06/11/21 at 0929, For 1 dose, Created by cabinet override celecoxib (CeleBREX) capsule 200 mg 200 mg, oral, Once, On Kathleen 06/11/21 at 1000, For 1 dose, Pre-Op, Indications: Pre-Emptive PainIndications:Pre-Emptiv e Pain Given 06/11/2021 9:47 AM TOLL SERVICE OBSERVER 200 mg Lactated Ringer's (LR) infusion - ADS Override Pull Starting on Kathleen 06/11/21 at 0929, For 1 dose, Created by cabinet override Lactated Ringer's (LR) infusion 125 mL/hr, intravenous, Continuous, Starting on Kathleen 06/11/21 at 1000, Pre-Op, May discontinue when discharge criteria met. Restarted 06/11/2021 11:50 AM TOLL SERVICE OBSERVER Rate/Dose Verify 06/11/2021 11:07 AM TOLL SERVICE OBSERVER 50 mL/ hr New Bag 06/11/2021 9:46 AM TOLL SERVICE OBSERVER 125 mL/hr 125 mL/hr sodium chloride 0.9% flush 0.5-20 mL 0.5-20 mL, intra-catheter, As needed, line care, Starting on Kathleen 06/11/21 at 0928, Pre-Op, Flush volume based on line type and size. Flush before and after each use. sodium chloride 0.9% irrigation As needed, Starting on Kathleen 06/11/21 at 1129, Intra-Op Given 06/11/2021 11:29 AM TOLL SERVICE OBSERVER 1,000 mL documented in this encounter Discontinued Medications Medication Sig Discontinue Reason Start Date End Da te amoxicillin-clavulanate (AUGMENTIN) 875-125 mg per tablet Take 1 tablet by mouth every 12 (twelve) hours for 7 days 05/27/2021 06/11/2021 omeprazole (PriLOSEC) 20 mg capsule TAKE 1 CAPSULE BY MOUTH ONCE DAILY FOR 30 DAYS 04/10/2020 06/11/2021 phentermine (ADIPEX-P) 37.5 mg tablet Take 37.5 mg by mouth daily 04/29/2021 06/11/2021 tamoxifen (NOLVADEX) 20 mg tablet Take 20 mg by mouth daily 02/22/2020 06/11/2021 documented as of this encounter Historical Medications * This list may reflect changes made after this encounter. phentermine (ADIPEX-P) 37.5 mg tablet Take 37.5 mg by mouth daily 04/29/2021 06/11/2021 amoxicillin-clavu lanate (AUGMENTIN) 875-125 mg per tablet Take 1 tablet by mouth every 12 (twelve) hours for 7 days 05/27/2021 06/11/2021 added in this encounter Active and Recently Administered Medications Times are shown in TOLL SERVICE OBSERVER. Scheduled Medication Order 06/09/2021 06/10/2021 06/11/2021 acetaminophen (TYLENOL) tablet 1,000 mg (COMPLETED) 1,000 mg, oral, Once, On Kathleen 06/11/21 at 1000, For 1 dose, Pre-Op, Indications: Pre-Emptive Analgesia 0947 (Given - Provid er: Beba Severino RN) ceFAZolin (ANCEF) 1 gram/10 mL in sterile water (premix) 2,000 mg (COMPLETED) 2,000 mg, intravenous, at 400 mL/hr, Administer over 3 Minutes, Once, On Kathleen 06/11/21 at 1000, For 1 dose, Pre-Op, Administer within 60 minutes of infusion., Indications: Prophylaxis, Surgical 1118 (Given - Provid er: Gayle Garibay CRNA) celecoxib (CeleBREX) capsule 200 mg (COMPLETED) 200 mg, oral, Once, On Kathleen 06/11/21 at 1000, For 1 dose, Pre-Op, Indications: Pre-Emptive Pain 0947 (Given - Provid er: Beba Severino RN) metroNIDAZOLE (FLAGYL) 500 mg/100 mL in sodium chloride (premix) 500 mg (COMPLETED) 500 mg, intravenous, at 200 mL/hr, Administer over 30 Minutes, Once, On Kathleen 06/11/21 at 1000, For 1 dose, Pre-Op, Administer within 60 minutes of incision. Room temperature only, Indications: Prophylaxis, Surgical 1119 (Given - Provid er: Gayle Garibay CRNA) Continuous Medication Order 06/09/2021 06/10/2021 06/11/2021 Lactated Ringer's (LR) infusion 125 mL/hr, intravenous, Continuous, Starting on Kathleen 06/11/21 at 1000, Pre-Op, May discontinue when discharge criteria met. 0946 (New Bag - Prov ider: Beba Severino RN)1107 (Rate/Dose Verify - Provider: Gayle Garibay CRNA)1149 (Paused - Provider: Gayle Garbiay CRNA - Comment: Switch to gravity)1150 (Restarted - Provider: Gayle Garibay CRNA) PRN Medication Order 06/09/2021 06/10/2021 06/11/2021 bupivacaine-EPINEPHrine (MARCAINE with EPI) 0.25 %-1:200,000 preservative free injection (CANCELED) As needed, Starting on Kathleen 06/11/21 at 1129, Intra-Op 1129 (Given - Provid er: Almita Obando MD) sodium chloride 0.9% flush 0.5-20 mL 0.5-20 mL, intra-catheter, As needed, line care, Starting on Kathleen 06/11/21 at 0928, Pre-Op, Flush volume based on line type and size. Flush before and after each use. sodium chloride 0.9% irrigation (CANCELED) As needed, Starting on Kathleen 06/11/21 at 1129, Intra-Op 1129 (Given - Provid er: Almita Obando MD) documented in this encounter Orders Medications Ordered That Gab ht Not Have Been Administered Count Last Ordered Date First Ordered Date ceFAZolin (ANCEF) 1 gram/10 mL in sterile water (premix) - ADS Override Pull 1 06/11/2021 ceFAZolin (ANCEF) 1 gram/10 mL in sterile water (premix) 2,000 mg 1 06/11/2021 fentaNYL (SUBLIMAZE) preserv ative free injection 25 mcg 1 06/11/2021 Lactated Ringer's (LR) infusion 1 metroNIDAZOLE (FLAGYL) 500 m g/100 mL in sodium chloride (premix) - ADS Override Pull 1 06/11/2021 metroNIDAZOLE (FLAGYL) 500 m g/100 mL in sodium chloride (premix) 500 mg 1 06/11/2021 naloxone (NARCAN) 0.4 mg/mL injection 0.04-0.4 mg 1 06/11/2021 ondansetron (ZOFRAN) injection 4 mg 1 06/11 sodium chloride 0.9% flush 0.5-20 mL 2 05/20 Diet Count Last Ordered Date First Orde red Date ADULT DISCHARGE DIET 1 06/11/2021 Nursing Count Last Ordered Date First Orde red Date DISCHARGE ACTIVITY 4 06/11/2021 DISCHARGE CALL PROVIDER 7 06/11/2021 DISCHARGE DRESSING 2 06/11/2021 DISCHARGE INSTRUCTIONS 1 06/11/2021 OTHER FOLLOW UP 1 06/11/2021 documented in this encounter Care Teams Structural Shop Helper Relationship Specialty Start Date End Date Almita Smallwood MD [address] [place] [address] PCP - General 04/17/20 02/14/23 Almita Smallwood MD [address] [place] [address] Internal Medicine 04/17/20 Jacek Laura MD [address] [address] Referring Physician Hematology 06/02/21 06/28/22 documented as of this encounter
--- OUTSIDE RECORDS SUMMARY | 2024-04-21 12:17 | XMS_ITS | Encounter Summary ---
Author Organization [facility] Healthcare Address [address] [place] [address] Care Team Providers Care Research Greenhouse Supervisor Name Role Phone Almita Smallwood MD Primary Care Provider + Almita Smallwood MD Unavailable [phone] Jacek Laura MD Unavailable [phone] Yuri Rocha MD Unavailable [phone] Reason for Visit * Auth/Cert Specialty Diagnoses / Procedures Referred By Tati campos Referred To Contact Diagnoses Sebaceous cyst Sebaceous cyst [L72.3] Procedures AZ EXC B9 LESION MRGN XCP SK TG T/A/L 0.6-1.0 CM AZ EXC B9 LESION MRGN XCP SK TG T/A/L 1.1-2.0 CM AZ EXC B9 LESION MRGN XCP SK TG T/A/L 2.1-3.0 CM EXCISION CYST BACK/ 60 min Referral ID Status Reason Start Date Expiration Date Visits Re quested Visits Authorized [id number] 1 1 Encounter Details Date Type Department Care Team (Late st Contact Info) Description 04/07/2022 10:24 AM TELEMETRY REGISTERED NURSE Anesthesia Event [facility] Operating Room [address] [place] [address] Rebecca Strong Jr., MD [address] [place] [address] [place] [address] [facility] [address] [place] [address] Anesthesia Record Procedure Summary Procedure Name Responsible Anesthesiologist Anesthesia Start Time Anesthesia Stop Time EXCISION CYST BACK Rebecca Strong Jr., MD 04/07/22 1024 04/07/22 1122 Events Date Time Event Comment 04/07/2022 0904 1024 An Start 1024 An Start Data 1024 In Room 1025 Start Supplemental O2 1029 An Induction The patient was reevaluated immediately before moderate or deep sedation use and before anesthesia induction. 1029 Anesthesia Ready 1047 Proc Start 1048 Incision Start 1113 Proc Fin 1117 an stop data 1118 Out of Room 1122 Handoff to RN I completed my handoff [...] Patient disposition at the time of handoff: PACU 1122 An Stop Meds Name Total midazolam 2 mg fentaNYL 50 mcg propofol 233.59 mg ceFAZolin (ANCEF) 1 gram/10 mL in steril e water (premix) 2,000 mg 2,000 mg ondansetron 4 mg Lactated Ringer's (LR) infusion 500 mL * Agents Name O2 N2O Air * Blood No blood administrations on file. Lines, Drains, and Airways Type Details Placement Removal RETIRED Surgical Site 06/11/21; 1130; Vagina; 03/20/24 (Retired LDA, Removed/Completed by [email or web address] with LDA Utility); 1213 (Retired LDA, Removed/Completed by [email or web address] with LDA Utility) 06/11/21 1130 by Chris Rodriguez RN 03/20/24 1213 by Discharge Provider, Automatic Peripheral IV Placement Date: 04/07/22; Placement Time: 0840; Catheter Size: 20 G; Orientation: Posterior, Right; Location: Hand; Site Prep: Chlorhexidine; Inserted by: lb; Insertion Attempts: 2; Patient Tolerance: Tolerated well; Removal Date: 04/07/22; Removal Time: 1245; Removal Reason: Discharge 04/07/22 0840 by Beba Severino RN 04/07/22 1245 by Janene Slater RN RETIRED Surgical Site 04/07/22; 1049; Ba ck; 03/20/24 (Retired LDA, Removed/Completed by [email or web address] with LDA Utility); 1213 (Retired LDA, Removed/Completed by [email or web address] with LDA Utility) 04/07/22 1049 by Allyson Jain RN 03/20/24 1213 by Discharge Provider, Automatic [...] on file Legal Sex Female 3:38 AM TELEMETRY REGISTERED NURSE Gender Identity Not on file Sexual Orientation Not on file 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[employer]) Not on file Not on file Not on file documented as of this encounter OR Notes * Anesthesia Postprocedure Evaluation - Rebecca Strong Jr., MD - 04/07/2022 12:00 PM CST Patient: Lisa Hermosillo Procedure Summary Date: 04/07/22 Room / Location: OPERATING ROOM 1 / OPERATING ROOM Anesthesia Start: 1024 Anesthesia Stop: 112 Procedure: EXCISION CYST BACK Diagnosis: Sebaceous cyst (Sebaceous cyst [L72.3]) Providers: Yuri Rocha MD Responsible Provider: Rebecca Strong Jr., MD Anesthesia Type: MAC ASA Status: 3 Anesthesia Type: MAC Last vitals BP 102/56 Pulse 64 Temp 36.4 ??C (97.6 ??F) (Temporal) Resp 21 SpO2 94% Anesthesia Post Evaluation Patient location during evaluation: PACU Patient participation: complete - patient participated Level of consciousness: arouses property condition assessor Pain score: 0 Pain management: adequate Airway patency: adequate Evidence of recall: no Cardiovascular status: acceptable Respiratory status: acceptable Hydration status: acceptable Pt is: normothermic Nausea/Vomiting status: none No notable events documented. METRY REGISTERED NURSE * Anesthesia Preprocedure Evaluation - Rebecca Strong Jr., MD - 04/07/2022 8:54 AM CST Images from the original note were not included. Anesthesia Evaluation Lisa Hermosillo is a 62 y.o. female Procedure(s): EXCISION CYST BACK/ 60 min Pre-Op Diagnosis Codes: * Sebaceous cyst [L72.3] HISTORY Past Medical History Information obtained from: patient and chart. Neurological + Neuromuscular disease Respiratory + COPD + Asthma Endocrine / Other + Cancer history Patient Active Problem List Diagnosis ??? Ductal [...] tamoxifen ??? Encounter for monitoring tamoxifen therapy ??? Sebaceous cyst Past Medical History: Diagnosis Date ??? Asthma, chronic, mild persistent, uncomplicated ??? Breast cancer (CMS/HCC) (HCC) 11/2016 no chemo/radiation ??? Centrilobular emphysema (CMS/HCC) (HCC) ??? 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 breast ??? Sciatica of left side ??? Sebaceous cyst 03/2022 ??? Smoking Past Surgical History: Procedure Laterality Date ??? BREAST BIOPSY Right 10/17/2018 benign axillary node ??? BREAST BIOPSY Left 10/27/2016 DCIS ??? BREAST BIOPSY Right ? benign needle bx ??? DILATION AND CURETTAGE OF UTERUS 06/11/2021 benign ??? ENDOMETRIAL BIOPSY 06/27/2020 benign ??? MASTECTOMY, PARTIAL Left 11/22/2016 For Stage 0 breast CA at [facility] in [place], [place]. No chemorx or XRT, only Tamoxifen. ??? TUBAL LIGATION OB History 3 Para 2 Term 2 AB 1 Living 2 SAB 0 IAB 1 Ectopic 0 Multiple Live Births 2 No Known Allergies Taking? Last Dose Start Date End Date Provider albuterol HFA (PROVENTIL HFA,VENTOLIN HFA,PROAIR HFA) 90 mcg/actuation inhaler -- 02/15/20 -- Cande Diego MD aspirin 81 mg enteric coated tablet 04/04/2022 -- -- Cande Diego MD collagen, hydrolysate, bovine, (COLLAGEN, HYDR, BOVINE,, BULK, MISC) -- -- -- Cande Diego MD cyclobenzaprine (FLEXERIL) 5 mg tablet -- 07/09/21 -- Cande Diego MD pccryuqhzwf-spfjjzfpr-nrsrqfts (TRELEGY ELLIPTA) 100-62.5-25 mcg inhaler -- 04/16/20 -- Cande Diego MD levocetirizine (XYZAL) 5 mg tablet -- 02/22/20 -- Cande Diego MD montelukast (SINGULAIR) 10 mg tablet -- -- -- Cande Diego MD multivitamin tablet,chewable -- -- -- Cande Diego MD tamoxifen (NOLVADEX) 20 mg tablet -- 08/12/21 -- Cambrian ParkSnow ojeda MD Take 1 tablet (20 mg total) by mouth daily tiZANidine (ZANAFLEX) 2 mg tablet -- 03/04/22 -- Cande Diego MD -- -- -- -- -- No current facility-administered medications for this encounter. Current Outpatient Medications: ??? tiZANidine (ZANAFLEX) 2 mg tablet ??? albuterol HFA (PROVENTIL HFA,VENTOLIN HFA,PROAIR HFA) 90 mcg/actuation inhaler ??? aspirin 81 mg enteric coated tablet ??? collagen, hydrolysate, bovine, (COLLAGEN, HYDR, BOVINE,, BULK, MISC) ??? cyclobenzaprine (FLEXERIL) 5 mg tablet ??? byagbijbpbh-bduxlgsgu-utmbvdqz (TRELEGY ELLIPTA) 100-62.5-25 mcg inhaler ??? levocetirizine (XYZAL) 5 mg tablet ??? montelukast (SINGULAIR) 10 mg tablet ??? multivitamin tablet,chewable ??? tamoxifen (NOLVADEX) 20 mg tablet Social History Tobacco Use Smoking Status Former ??? Types: Cigarettes ??? Quit date: 2004 ??? Years since quittin.9 Smokeless Tobacco Never Alcohol Use: Unknown ??? Frequency of Alcohol Consumption: Monthly or less ??? Average Number of Drinks: Not on file ??? Frequency of Binge Drinking: Never Substance and Sexual Activity Drug Use Yes ??? Types: Alcohol Comment: up to 1 wine/wine cooler/month; Family History Problem Relation Age of Onset ??? Colon cancer Mother 49 at 63 ??? Leukemia Father ??? Colon cancer Sister 55 survived ??? Breast cancer Father's Sister 60 ??? Ovarian cancer Neg Hx ??? Thyroid cancer Neg Hx There were no vitals filed for this [...] within last 720 hours. DOS Physical Exam Medical history, medications, and allergies reviewed. Attestation: I endorse the findings of the anesthesia pre-evaluation assessment dated: 04/07/2022. Airway Exam: Mallampati: I Cervical ROM: FROM TM distance: >4 Cardiovascular Exam: Rate: regular Rhythm: regular Pulmonary Exam: LCTA, bilat EENT Exam: trachea midline Dental Exam: Appears intact Skin Exam: Skin is warm. Capillary refill is < 3 seconds. Turgor is normal. Current state: Patient's current state is cooperative and interactive. Anesthesia Plan ASA 3 My patient is approved for the Anesthesia Controlled Medication protocol when under care of a AUTOMOTIVE BRAKE ADJUSTER Planned anesthesia: MAC Induction: Induction: intravenous. Postoperative Plan: Postoperative administration opioids intended. No postoperative mechanical ventilation intended. Patient's planned disposition post procedure is Outpatient. No trial extubation planned. Informed Consent: Discussed plan with AA, attending and AUTOMOTIVE BRAKE ADJUSTER. Anesthesia plan and risks discussed with patient. Consent and Attending signature: I and/or my designee have discussed the anesthesia plan, benefits, possible alternatives, parental presence at time of induction (if indicated), and clinically relevant risks that may include dental injury, unintentional awareness, and/or other complications. The patient and/or parent/legal guardian understand, and agree to proceed. All questions answered. METRY REGISTERED NURSE METRY REGISTERED NURSE documented in this encounter Plan of Treatment [...] at 0900, For 1 dose, Indications: Prophylaxis, SurgicalIndications:Prophylaxis , Surgical Given 04/07/2022 10:35 AM TELEMETRY REGISTERED NURSE 2,000 mg fentaNYL (SUBLIMAZE) preservative free injection intravenous, As needed, Starting on Tue04/07/22 at 1033, Anesthesia Intra-op Given 04/07/2022 10:38 AM TELEMETRY REGISTERED NURSE 25 mcg Given 04/07/2022 10:33 AM TELEMETRY REGISTERED NURSE 25 mcg Lactated Ringer's (LR) infusion 30 mL/hr, intravenous, Continuous, Starting on Tue04/07/22 at 0915, Restarted 04/07/2022 11:14 AM TELEMETRY REGISTERED NURSE Rate/Dose Verify 04/07/2022 10:24 AM TELEMETRY REGISTERED NURSE 30 mL/ hr New Bag 04/07/2022 8:45 AM TELEMETRY REGISTERED NURSE 30 mL/hr 30 mL/hr midazolam (VERSED) 1 mg/mL preservative free injection intravenous, Administer over 2 Minutes, As needed, Starting on Tue04/07/22 at 1024, Anesthesia Intra-op Given 04/07/2022 10:24 AM TELEMETRY REGISTERED NURSE 2 mg ondansetron (ZOFRAN) injection intravenous, Administer over 2 Minutes, As needed, Starting on Tue04/07/22 at 1030, Anesthesia Intra-op Given 04/07/2022 10:30 AM TELEMETRY REGISTERED NURSE 4 mg propofoL (DIPRIVAN) 10 mg/mL IV intravenous, Continuous PRN, Starting on Tue04/07/22 at 1029, Anesthesia Intra-op Rate/Dose Change 04/07/2022 11:08 AM TELEMETRY REGISTERED NURSE 55 mcg/kg/min 22.605 mL/hr Rate/Dose Change 04/07/2022 10:35 AM TELEMETRY REGISTERED NURSE 85 mcg/kg/min 34. 935 mL/hr New Bag 04/07/2022 10:29 AM TELEMETRY REGISTERED NURSE 55 mcg/kg/min 22.605 mL /hr documented in this encounter Care Teams Research Greenhouse Supervisor Relationship Specialty Start Date End Date Almita Smallwood MD [address] [place] [id number] PCP - General 04/17/20 02/14/23 Almita Smallwood MD [address] [place] [address] Internal Medicine 04/17/20 Jacek Laura MD [address] [id number] Referring Physician Hematology 06/02/21 06/28/22 [place] [address] [address] [address] Surgeon General Surgery 04/07/22 documented as of this encounter
--- OUTSIDE RECORDS SUMMARY | 2024-04-21 12:17 | XMS_ITS | Encounter Summary ---
Author Organization [facility] Address [address] [place] [address] Phone Care Team Providers Care Outside Installation Machinist Name Role Phone Almita Smallwood MD Primary Care Provider + Almita Smallwood MD Unavailable [phone] Jacek Laura MD Unavailable Encounter Details Date Type Department Care Team (Late st Contact Info) Description 06/11/2021 Orders Only [facility] [address] [place] [address] Warner Ray MD [address] [place] [address] Malignant neoplasm of female breast, unspecified estrogen receptor status, unspecified laterality, unspecified site of breast (HCC) Social History Tobacco Use Types Packs/Day Years [...] on file Legal Sex Female 3:38 AM NETWORK DESIGN ARCHITECT Gender Identity Not on file Sexual Orientation Not on file 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[employer]) Not on file Not on file Not on file documented as of this encounter Plan of Treatment Not on file documented as of this encounter Procedures Procedure Name Priority Date/Time Associated Diagnosis Comments SURGICAL PATHOLOGY Routine 06/11/2021 10 :02 AM NETWORK DESIGN ARCHITECT Malignant neoplasm of female breast, unspecified estrogen receptor status, unspecified laterality, unspecified site of breast (HCC) documented in this encounter Results * Surgical pathology (06/11/2021 10:02 AM NETWORK DESIGN ARCHITECT) Tissue (Miscellaneous) 06/11/2021 10:02 AM NETWORK DESIGN ARCHITECT 06/11/2021 10:02 AM NETWORK DESIGN ARCHITECT Narrative [facility] - 06/17/2021 1:07 PM NETWORK DESIGN ARCHITECT EPIC results best viewed via link to PDF [facility] Pathology Consult Service [address], [place], [place] [id number] Note to Patients: This report may contain [...] SURGICAL PATHOLOGY REPORT * Consult Report * [facility] is providing an additional review of previously collected tissue. FINAL Patient Name: ??ANITHA HERMOSILLO Address: ??[address] [facility], ?[place], [place] ??[address] Gender: ??F : ??1960 (Age: 61) Hospital #: ??[id number] Patient Type: ??WU Location: ??Medical Oncology Taken: ??06/11/2021 Received: ??06/11/2021 Accessioned: ??06/11/2021 Reported: ??06/17/2021 Physician(s): Warner Ray M.D. [facility] Department of Pathology [address] [place] [address] P: [phone] F: [phone] Diagnosis: Consult material received from [place], [place] (OSC [id number]; 01/26/11): Breast, left, 12:00, ultrasound-guided core biopsy ? - Fibrocystic changes with usual ductal hyperplasia, adenosis, apocrine metaplasia and microcysts - Pseudoangiomatous stromal hyperplasia (PASH) - Duct ectasia - No evidence of atypical hyperplasia, in situ carcinoma, or invasive carcinoma ? Consult material received from [place], [place] (OSC [id number]; 10/27/16): Breast, left, upper outer, with calcifications, [...] receptor: Positive; Luis Fernando score 5+2 = 10/23 - Progesterone receptor: Positive; Luis Fernando score 5+3 = 11/23 ? B. Breast, left, upper outer, without calcifications, stereotactic needle core biopsy ? - Atypical ductal hyperplasia ? - Columnar cell change - Pseudoangiomatous stromal hyperplasia - Microcalcifications associated with above findings - No evidence of invasive carcinoma Consult material received from [place], [place] (OSC: [id number]; 11/23/16): Breast, left, upper outer quadrant, partial [...] invasive carcinoma ?? Consult material received from [place], [place] (OSC: [id number]; 11/07/2018). Lymph nodes, right axillary, excision ? [...] Received for review are two slides labeled [id number], eleven slides labeled [id number], thirteen slides labeled [id number], and two slides labeled [id number], accompanied by the corresponding pathology reports. The materials originated from [place], [place]. Selected slide(s) may be digitally scanned for our files, and all material is returned to the referring institution, along with a copy of our final report. Any testing required for diagnostic purposes was performed in the Department of Pathology and Immunology at [facility], [address] [place] [address] CLIA # [id number] The performance characteristics of the testing cited in this report (if any) were determined by the ??[facility] Department of Pathology and Immunology [facility], as part of an ongoing quality measurement specialist program and in compliance with federally [...] and the performance characteristics determined by the [facility], [facility] Department of Pathology and Immunology. ??It has not been cleared or approved by the U.S. Food and Drug Administration. ??Any test designated as LDT was developed and its performance characteristics determined by [facility]. It has not been cleared or approved by the FDA. This test is used for clinical purposes and should not be regarded as investigational or for research. Report images and/or scanned reports, if included, only viewable in PDF version of report. us Warner Ray MD LAB PATHOLOGY ORD ERABLES Final Result [facility] [address] [address] documented in this encounter Visit Diagnoses Diagnosis Malignant neoplasm of female breast, unspecified estrogen receptor status, unspecified laterality, unspecified site of breast (HCC) documented in this encounter Care Teams Outside Installation Machinist Relationship Specialty Start Date End Date Almita Smallwood MD [address] [place] [address] PCP - General 04/17/20 02/14/23 Almita Smallwood MD [address] [place] [address] Internal Medicine 04/17/20 Jacek Laura MD [address] [address] Referring Physician Hematology 06/02/21 06/28/22 documented as of this encounter
--- OUTSIDE RECORDS SUMMARY | 2024-04-21 12:17 | XMS_ITS | Encounter Summary ---
Author Organization [facility] Healthcare Address [address] [place] [address] Care Team Providers Care Shipping Specialist Name Role Phone Almita Smallwood MD Primary Care Provider + Almita Smallwood MD Unavailable [phone] Jacek Laura MD Unavailable [phone] Encounter Details Date Type Department Care Team (Late st Contact Info) Description 06/11/2021 8:44 AM BRIDGE BUILDER - 06/11/2021 1:05 PM BRIDGE BUILDER Hospital Encounter [facility] Operating Room [address] [place] [address] [place] [address] [address] Thickened endometrium Discharge Disposition: Discharge to home or self [...] on file Legal Sex Female 3:38 AM BRIDGE BUILDER Gender Identity Not on file Sexual Orientation Not on file 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 Not on file Not on file documented as of this encounter Last Filed Vital Signs Vital Sign Reading Time Taken Comments Blood Pressure 129/60 06/11/2021 12:27 PM BRIDGE BUILDER Pulse 85 06/11/2021 12:27 PM BRIDGE BUILDER Temperature 37.4 ??C (99.3 ??F) 06/11/2021 11:[address] Respiratory Rate 12 06/11/2021 12:27 PM BRIDGE BUILDER Oxygen Saturation 98% 06/11/2021 12:27 PM BRIDGE BUILDER Inhaled Oxygen Concentration - - Weight - - Height - - Body Mass Index - - documented in this encounter Discharge Diagnoses Diagnosis Abnormal findings on diagnostic imaging of other specified body structures - ABNORMAL FINDINGS ON DIAGNOSTIC IMAGING OF OTHER SPECIFIED BODY STRUCTURES Dysplasia of cervix uteri, unspecified - DYSPLASIA OF CERVIX UTERI, UNSPECIFIED Asymptomatic menopausal state - ASYMPTOMATIC MENOPAUSAL STATE Personal history of malignant neoplasm of breast - PERSONAL HISTORY OF MALIGNANT NEOPLASM OF BREAST Unspecified asthma, uncomplicated - UNSPECIFIED ASTHMA, UNCOMPLICATED Personal history of nicotine dependence - PERSONAL HISTORY OF NICOTINE DEPENDENCE intermediate (current) use of inhaled steroids - CORRECTION (CURRENT) USE OF INHALED STEROIDS intermediate designer (current) use of selective estrogen receptor modulators (serms) - CORRECTION (CURRENT) USE OF SELECTIVE ESTROGEN RECEPTOR MODULATORS (SERMS) Other assistant terminal manager (current) drug therapy - OTHER CORRECTION (CURRENT) DRUG THERAPY documented in this encounter Discharge Instructions * Discharge Instructions* Annmarie Amador RN - 06/11/2021 12:47 PM BRIDGE BUILDER FOLLOW UP CALLS You may get a [...] enough for us, we strive for EXCELLENCE! GE BUILDER * Attachments The following attachments cannot be sent through Care Everywhere. * Hysteroscopy (Discharge Care) (Nepalese) * General Anesthesia (Discharge Care) (Nepalese) * Naproxen (By mouth) (Nepalese) * Dilation and Curettage (Discharge Care) (Nepalese) documented in this encounter Medications at Time [...] : Procedure(s): DILATION AND CURETTAGE/HYSTEROSCOPY/ 60 min GE BUILDER Source Note - Almita Obando MD - 06/10/2021 6:37 PM BRIDGE BUILDER Gynecology H&P SUBJECTIVE HPI: Lisa Hermosillo??is a [...] 11/2016 For Stage 0 breast CA at [facility] in [place], [place]. No chemorx or XRT, only Tamoxifen. ??? TUBAL LIGATION Social History Socioeconomic History ??? Marital status: Spouse name: Not on file ??? Number of children: 2 ??? Years of education: Not on file ??? Highest education level: Not on file Occupational History ??? 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 Tobacco Use [...] invited and answered. Almita Obando MD 06/10/21 GE BUILDER * Almita Obando MD - 06/10/2021 6:37 [...] 11/2016 For Stage 0 breast CA at [facility] in [place], [place]. No chemorx or XRT, only Tamoxifen. ??? TUBAL LIGATION Social History Socioeconomic History ??? Marital status: Spouse name: Not on file ??? Number of children: 2 ??? Years of education: Not on file ??? Highest education level: Not on file Occupational History ??? 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 Tobacco Use [...] invited and answered. Almita Obando MD 06/10/21 GE BUILDER documented in this encounter Miscellaneous Notes * Result Encounter Note - Almita Obando MD - 06/11/2021 1:05 PM CST [place], please call this patient to let her know that the pathology report shows normal cervical canal tissue (endocervical) and normal uterine lining tissue (endometrium). We can discuss this further at her postoperative visit on 06/26/21. GE BUILDER * Brief Op Note - Almita Obando MD - 06/11/2021 11:00 AM CST Operative Progress Note Surgical Team: Surgeon(s) and Role: * Almita Obando MD - Primary Anesthesiologist: Blanca Chan MD CAR SEAT COVERER: Gayle Garibay CRNA Inventory Control Clerk: Chris Rodriguez RN Scrub: Barbara Guerra RN Inventory Control Clerk Second: Estephania Bauer RN FLOAT: Preeti Copeland [...] 12:26 PM No Resident involved on case GE BUILDER * Op Note - Almita Obando MD - 06/11/2021 12:00 AM BRIDGE BUILDER Preoperative Diagnosis Thickened endometrium. Postmenopausal on Tamoxifen [...] In-and-out catheterization obtained 20 mL of urine. [place] speculum was placed in the vagina. A [...] in stable condition. Job ID/VF Job ID: [id number] GE BUILDER documented in this encounter Plan of Treatment Not on file documented as of this encounter Procedures Procedure Name Priority Date/Time Associated Diagnosis Comments SURGICAL PATHOLOGY Routine 06/11/2021 2: 03 PM BRIDGE BUILDER Thickened endometrium DILATION AND CURETTAGE/HYSTEROSC OPY 06/11/2021 11:05 AM BRIDGE BUILDER Thickened endometrium documented in this encounter Results * Surgical pathology (06/11/2021 2:03 PM BRIDGE BUILDER) Tissue (Endocervix, curettage) 06/11/2021 11:34 AM BRIDGE BUILDER Tissue (Endometrial curettings) 06/11/2021 11:44 AM BRIDGE BUILDER Narrative PATHOLOGY CH - 06/12/2021 4:09 PM BRIDGE BUILDER EPIC results best viewed via link to PDF [facility] Department of Pathology [address] [place], [place] [id number] Note to Patients: This report may contain [...] Final Report Patient Name: ??LISA HERMOSILLO Address: ??[address] , ??[place], [place] [address] Gender: ??F : ??1960 (Age: 61) Service: ??Surgery Location: ??[facility] Hospital #: ??[id number] Patient Type: ??[facility] Accession # ?[id number] Taken: ??06/11/2021 Received: ??06/11/2021 Accessioned: ??06/11/2021 Reported: [...] is submitted in two containers labeled Lisa Bharti Hermosillo . A. ??The first container is [...] determined by the Surgical Pathology Department at [facility] as part of an ongoing quality improvement engineer program and in compliance with federally [...] characteristics determined by the Surgical Pathology Department [facility]. ??It has not been cleared or approved by the U. S. Food and Drug Administration. Almita Obando MD LAB PATHOLOG Y ORDERABLES Final Result Performing Organization Address City/State/[place] de Phone Number PATHOLOGY [address] [place] [address] documented in this encounter Visit Diagnoses Diagnosis Thickened endometrium Nonspecific (abnormal) findings on radiological and other examination of genitourinary organs documented in this encounter Administered Medications Inactive Administered Medications - up to 3 most recent administrations Medication Order MAR Action Action Date Dose Rate Site acetaminophen (TYLENOL) 500 mg tablet - ADS Override Pull Starting on Kathleen 06/11/21 at 0929, For 1 dose, Created by renetta override acetaminophen (TYLENOL) tablet 1,000 mg 1,000 mg, oral, Once, On Kathleen 06/11/21 at 1000, For 1 dose, Pre-Op, Indications: Pre-Emptive AnalgesiaIndications:Pre-Emptiv e Analgesia Given 06/11/2021 9:47 AM BRIDGE BUILDER 1,000 mg celecoxib (CeleBREX) 200 mg capsule - ADS Override Pull Starting on Kathleen 06/11/21 at 0929, For 1 dose, Created by renetta prattide celecoxib (CeleBREX) capsule 200 mg 200 mg, oral, Once, On Kathleen 06/11/21 at 1000, For 1 dose, Pre-Op, Indications: Pre-Emptive PainIndications:Pre-Emptive Pain Given 06/11/2021 9:47 AM BRIDGE BUILDER 200 mg Lactated Ringer's (LR) infusion - ADS Override Pull Starting on Kathleen 06/11/21 at 0929, For 1 dose, Created by cabinet override Lactated Ringer's (LR) infusion 125 mL/hr, intravenous, Continuous, Starting on Kathleen 06/11/21 at 1000, Pre-Op, May discontinue when discharge criteria met. Restarted 06/11/2021 11:50 AM BRIDGE BUILDER Rate/Dose Verify 06/11/2021 11:07 AM BRIDGE BUILDER 50 mL/ hr New Bag 06/11/2021 9:46 AM BRIDGE BUILDER 125 mL/hr 125 mL/hr sodium chloride 0.9% flush 0.5-20 mL 0.5-20 mL, intra-catheter, As needed, line care, Starting on Kathleen 06/11/21 at 0928, Pre-Op, Flush volume based on line type and size. Flush before and after each use. documented in this encounter Discontinued Medications Medication [...] Recently Administered Medications Times are shown in BRIDGE BUILDER. Scheduled Medication Order 06/09/2021 06/10/2021 06/11/2021 acetaminophen [...] Gayle Garibay CRNA)1149 (Paused - Provider: Gayle Garibay CRNA - Comment: Switch to gravity)1150 (Restarted [...] EPI) 0.25 %-1:200,000 preservative free injection 1 06/11/2021 ceFAZolin (ANCEF) 1 gram/10 mL [...] chloride 0.9% flush 0.5-20 mL 2 05/20 sodium chloride 0.9% irrigation 1 Diet Count Last Ordered Date First Orde red Date ADULT DISCHARGE DIET 1 06/11/2021 Nursing Count Last Ordered Date First Orde red Date DISCHARGE ACTIVITY 4 06/11/2021 DISCHARGE CALL PROVIDER 7 06/11/2021 DISCHARGE DRESSING 2 06/11/2021 DISCHARGE INSTRUCTIONS 1 06/11/2021 OTHER FOLLOW UP 1 06/11/2021 documented in this encounter Care Teams Shipping Specialist Relationship Specialty Start Date End Date Almita Smallwood MD [address] [place] [address] PCP - General 04/17/20 02/14/23 Almita Smallwood MD [address] [place] [address] Internal Medicine 04/17/20 Jacek Laura MD [address] [address] Referring Physician Hematology 06/02/21 06/28/22 documented as of this encounter
--- OUTSIDE RECORDS SUMMARY | 2024-04-21 12:18 | XMS_ITS | Encounter Summary ---
Author Organization [facility] Address [address] [place] [address] Phone Care Team Providers Care Slackman Name Role Phone Almita Smallwood MD Primary Care Provider + Almita Smallwood MD Unavailable [phone] Encounter Details Date Type Department Care Team (Late st Contact Info) Description 04/30/2021 Telephone [facility] Surgery [address] 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 ER REPAIR SUPERVISOR documented in this encounter Plan of Treatment Not on file documented as of this encounter Visit Diagnoses Not on filedocumented in this encounter Care Teams Slackman Relationship Specialty Start Date End Date Almita Smallwood MD [address] [place] [address] PCP - General 04/17/20 02/14/23 Almita Smallwood MD [address] [place] [address] Internal Medicine 04/17/20 documented as of this encounter
--- OUTSIDE RECORDS SUMMARY | 2024-04-21 12:18 | XMS_ITS | Encounter Summary ---
Author Organization [facility] Address [address] [facility] [address] [place] [address] Care Team Providers Care Vfx Artist Name Role Phone Almita Smallwood MD Primary Care Provider + Almita Smallwood MD Unavailable Reason for Referral * Diagnostic Imaging (Routine) - Closed Specialty Diagnoses / Procedures Referred By Tati campos Referred To Contact Diagnoses Thickened endometrium Procedures US Pelvis [place] [address] [address] Phone: tel: fax: [facility] Referral ID Status Reason Start Date Expiration Date Visits Re quested Visits Authorized [id number] Closed 07/17/2020 08/16/2021 1 1 Encounter Details Date Type Department Care Team (Late st Contact Info) Description 07/17/2020 Orders Only [facility] Gynecology at [facility] [address] [place] [address] [address] [place] [address] [place] [address] [address] Thickened endometrium (Primary Dx) Social History Tobacco Use Types [...] on file Legal Sex Female 3:38 AM IMPREGNATOR HELPER Gender Identity Not on file Sexual Orientation Not on file 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 Not on file N ot on file Not on file documented as of this encounter Progress Notes * Mee Winkler MA - 07/17/2020 6:11 PM CDT Pt reminded via [employer]. documented in this encounter Plan of Treatment Not on file documented as of this encounter Results * US Pelvis W Endovaginal (03/19/2021 9:13 AM IMPREGNATOR HELPER) Anatomical Region Laterality Modality Pelvis N/A Ultrasound 03/20/2021 8:20 AM IMPREGNATOR HELPER Impressions 03/20/2021 8:20 AM IMPREGNATOR HELPER Heterogeneous nonenlarged uterus without focal lesion seen. Endometrial thickening of 11 mm. ??Differential includes hyperplasia, polyp and carcinoma. Electronically signed by: Antoinette Jimenes M.D. Narrative 03/20/2021 8:20 AM IMPREGNATOR HELPER EXAM: PELVIC ULTRASOUND DATE: 03/19/2021 8:30 AM CLINICAL HISTORY: See above Follow-up thickened endometrium on 04/24/20 pelvic ultrasound. ??No endometrium found on biopsy 06/2020. ??On tamoxifen following treatment for breast cancer. TECHNIQUE: Multiple ultrasonographic images of the pelvis, both transabdominal and transvaginal, were obtained by the technologist and submitted for review. COMPARISON: Ultrasound pelvis 04/24/2020. FINDINGS: The uterus demonstrates heterogeneous echogenicity and measures 7.1 x 3.5 x 5.1 cm. Endometrial thickness is 11 mm with a small amount of endometrial cavity fluid. Neither ovary is identified due to bowel gas . There is no free fluid. Procedure Note Antoinette Jimenes MD - 03/20/2021 EXAM: PELVIC ULTRASOUND DATE: 03/19/2021 8:30 AM CLINICAL HISTORY: See above Follow-up thickened endometrium on 04/24/20 pelvic ultrasound. No endometrium found on biopsy 06/2020. On tamoxifen following treatment for breast cancer. TECHNIQUE: Multiple ultrasonographic images of the pelvis, both transabdominal and transvaginal, were obtained by the technologist and submitted for review. COMPARISON: Ultrasound pelvis 04/24/2020. FINDINGS: The uterus demonstrates heterogeneous echogenicity and measures 7.1 x 3.5 x 5.1 cm. Endometrial thickness is 11 mm with a small amount of endometrial cavity fluid. Neither ovary is identified due to bowel gas . There is no free fluid. IMPRESSION: Heterogeneous nonenlarged uterus without focal lesion seen. Endometrial thickening of 11 mm. Differential includes hyperplasia, polyp and carcinoma. Electronically signed by: Antoinette Jimenes M.D. Almita Obando MD [facility] US NUSRAT KHALIL Final Result documented in this encounter Visit Diagnoses Diagnosis Thickened endometrium- Primary Nonspecific (abnormal) findings on radiological and other examination of genitourinary organs Thickened endometrium Nonspecific (abnormal) findings on radiological and other examination of genitourinary organs documented in this encounter Care Teams Vfx Artist Relationship Specialty Start Date End Date Almita Smallwood MD [address] [place] [address] PCP - General 04/17/20 02/14/23 Almita Smallwood MD [address] [place] [phone] Internal Medicine 04/17/20 documented as of this encounter
--- OUTSIDE RECORDS SUMMARY | 2024-04-21 12:18 | XMS_ITS | Encounter Summary ---
Author Organization [facility] Address [address] [facility] [address] [place] [address] Care Team Providers Care Head Insulation Board Saw Operator Name Role Phone Almita Smallwood MD Primary Care Provider + Almita Smallwood MD Unavailable [phone] Encounter Details Date Type Department Care Team (Late st Contact Info) Description 03/26/2021 Orders Only [facility] Gynecology at [facility] [address] [facility] [address] [place] [address] [place] [address] [facility] [address] [place] [address] Social History Tobacco Use Types [...] file Legal Sex Female 3:38 AM 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 Not on file N ot on file Not on file documented as of this encounter Progress Notes * Almita Obando MD - 03/26/2021 4:15 PM CST Surgery scheduling orders: Diagnosis: Thickened endometrium Surgeon: Dr. Obando Procedure: Hysteroscopy. D&C. Desired location: [facility] Case classification: Elective Length of case: 1 hour Preferred dates/times: morning/afternoon Anesthesia: Anesthesia preference Patient status: Outpatient Preop visit needed: No Additional labs requested: To be ordered Antibiotics: cefazolin PLUS metronidazole DVT prophylaxis: SCDs IVF type: lactated ringers 125 mL/hr Please schedule 2 week postoperative visit TRICAL ENGINEERING DESIGNER * Mee Winkler MA - 03/26/2021 4:15 PM CST Per Wilfredo @ [facility] [place] needed and started for CPT: 21404. Approval # [id number] 05/28/21-08/26/21 Surgery: 05/28/21 @ 11am Post op: 06/12/21 @ 8am Pt notified TRICAL ENGINEERING DESIGNER documented in this encounter Plan of Treatment Not on file documented as of this encounter Visit Diagnoses Not on filedocumented in this encounter Care Teams Head Insulation Board Saw Operator Relationship Specialty Start Date End Date Almita Smallwood MD [address] [place] [address] PCP - General 04/17/20 02/14/23 Almita Smallwood MD [address] [place] [address] Internal Medicine 04/17/20 documented as of this encounter
--- OUTSIDE RECORDS SUMMARY | 2024-04-21 12:18 | XMS_ITS | Encounter Summary ---
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 Not on file N ot on file Not on file documented as of this encounter Plan of Treatment Not on file documented as of this encounter Visit Diagnoses Diagnosis Encounter for vaccination- Primary documented in this encounter Orders Immunization/Injection Count Last Ordered Date First Ordered Date PFIZER SARS-COV-2 VACCINE 1 01/30/2021 documented in this encounter Care Teams Plant Control Operator Relationship Specialty Start Date End Date Almita Smallwood MD [address] [place] [address] PCP - General 04/17/20 02/14/23 Almita Smallwood MD [address] [place] [address] Internal Medicine 04/17/20 documented as of this encounter
--- OUTSIDE RECORDS SUMMARY | 2024-04-21 12:18 | XMS_ITS | Encounter Summary ---
Author Organization [facility] Address [address] [facility] [address] [place] [address] Care Team Providers Care Engineering Programmer Name Role Phone Almita Smallwood MD Primary Care Provider + Almita Smallwood MD Unavailable [phone] Reason for Visit * Reason Onset Date Comments Test Results 07/18/2020 Encounter Details Date Type Department Care Team (Late st Contact Info) Description 07/18/2020 Telephone [facility] Gynecology at [facility] [address] [facility] [address] [place] [address] [place] [address] [facility] [address] [place] [address] Test Results Social History Tobacco Use Types Packs/Day Years [...] on file Legal Sex Female 3:38 AM HEAD ROSE GROWER Gender Identity Not on file Sexual Orientation Not on file 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 * Telephone Encounter - Mee Winkler MA - 07/18/2020 8:27 AM CDT ----- Message from Almita Obando MD sent at 07/17/2020 6:11 PM CDT ----- Mee, this patient is signed up for [employer] but does not appear to use it. Please let her know that the endometrial biopsy did not show any endometrial tissue. I feel like I had adequately sampled the uterine lining at the time of the endometrial biopsy and suspect that the endometrial tissue has actually thinned out. She is on tamoxifen following treatment for breast cancer in 2016. A pelvic ultrasound done in April showed suggested that the uterine lining was thickened. As she has not had any bleeding, no further treatment is indicated at this time. I suggest we repeat her pelvic ultrasound in 6 months for close follow-up. This has been ordered. documented in this encounter Plan of Treatment Not on file documented as of this encounter Visit Diagnoses Not on filedocumented in this encounter Care Teams Engineering Programmer Relationship Specialty Start Date End Date Almita Smallwood MD [address] [place] [address] PCP - General 04/17/20 02/14/23 Almita Smallwood MD [address] [place] [address] Internal Medicine 04/17/20 documented as of this encounter
--- OUTSIDE RECORDS SUMMARY | 2024-04-21 12:18 | XMS_ITS | Encounter Summary ---
Author Organization [facility] Healthcare Address [address] [place] [address] Care Team Providers Care Math Tutor Name Role Phone Almita Smallwood MD Primary Care Provider + Almita Smallwood MD Unavailable [phone] Encounter Details Date Type Department Care Team (Late st Contact Info) Description 04/29/2021 2:50 PM SPEECH THERAPY ASSISTANT Lab [address] [address] Screening for malignant neoplasm of cervix Social History Tobacco Use Types Packs/Day Years [...] on file Legal Sex Female 3:38 AM SPEECH THERAPY ASSISTANT Gender Identity Not on file Sexual Orientation Not on file 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[employer]) Not on file Not on file Not on file documented as of this encounter Plan of Treatment Not on file documented as of this encounter Procedures Procedure Name Priority Date/Time Associated Diagnosis Comments THINPREP PAP, HPV REFLEX Routine 04/29/2021 11:03 AM SPEECH THERAPY ASSISTANT documented in this encounter Results * ThinPrep Pap, HPV Reflex (04/29/2021 11:03 AM SPEECH THERAPY ASSISTANT) Pap test 04/29/2021 11:0 3 AM SPEECH THERAPY ASSISTANT 04/29/2021 11:03 AM SPEECH THERAPY ASSISTANT Narrative 05/01/2021 12:44 PM SPEECH THERAPY ASSISTANT [facility] Department of Pathology [address] [place], [place] [id number] Final Report with Addendum Note to Patients: This report may contain [...] can answer questions and explain the details. Patient Name: ??ANITHA HERMOSILLO Address: ??[address],, ?? [place] [address] Gender: ??F : ??1960 (Age: 61) Service: ??Laboratory Location: ??Lab Hospital #: ??[id number] Patient Type: ?? Ref Lab Taken: ??04/29/2021 Received: ??04/29/2021 Accessioned:: ??04/30/2021 Reported: ??05/01/2021 Physician(s): Almita Obando Diagnosis: Source of Specimen: ? SCREENING THIN PREP IMAGED PAP w/ HPV Specimen Adequacy: ?- Satisfactory for evaluation; endocervical/transformation zone component present General Category: ?- Negative for intraepithelial lesion or malignancy ?? LUKE Garcia(ASCP) Report Electronically Reviewed and Signed Out By ??LUKE Garcia(ASCP) ??05/01/2021 12:44:35 ??Addenda: HPV Test Interpretation NEGATIVE for types 16, 18, 31, 33, 35, 39, 45, 51, 52, 56, 58, 59, 66 and 68. Test performed utilizing Gen-Probe Aptima assay. ?? LUKE Leiva(ASCP) ??Report Electronically Reviewed and Signed Out By ??LUKE Leiva(ASCP) ??04/30/2021 15:08:40 ? Specimen(s) Received: A: SCREENING THIN PREP IMAGED PAP w/ HPV Clinical History: Last Menstrual Period: 2014 Menstrual [...] determined by the Surgical Pathology Department at [facility] as part of an ongoing food quality technician program and in compliance with [...] by the Surgical Pathology Department [facility]. ??It has not been cleared or approved by the [place]. [place]. Food and Drug Administration. Almita Obando MD LAB CYTOLOGY ORDERABLES Final Result documented in this encounter Visit Diagnoses Diagnosis Screening for malignant neoplasm of cervix Screening for malignant neoplasm of the cervix documented in this encounter Orders Lab Orders Without Results Count Last Ordered D ate First Ordered Date PAP AND HIGH RISK HPV, REFLE X TO GENOTYPING 1 04/29/2021 documented in this encounter Care Teams Math Tutor Relationship Specialty Start Date End Date Almita Smallwood MD [address] [place] [address] PCP - General 04/17/20 02/14/23 Almita Smallwood MD [address] [place] [address] Internal Medicine 04/17/20 documented as of this encounter
--- OUTSIDE RECORDS SUMMARY | 2024-04-21 12:18 | XMS_ITS | Encounter Summary ---
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 N ot on file Not on file documented as of this encounter Plan of Treatment Not on file documented as of this encounter Visit Diagnoses Diagnosis Encounter for vaccination- Primary documented in this encounter Orders Immunization/Injection Count Last Ordered Date First Ordered Date PFIZER SARS-COV-2 VACCINE 2ND DOSE APPT 1 0 08/14/2020 PFIZER SARS-COV-2 VACCINE 1 07/23/2020 documented in this encounter Care Teams Tube Bending Machine Operator Relationship Specialty Start Date End Date Almita Smallwood MD [address] [place] [address] PCP - General 04/17/20 02/14/23 Almita Smallwood MD [address] [place] [address] Internal Medicine 04/17/20 documented as of this encounter
--- OUTSIDE RECORDS SUMMARY | 2024-04-21 12:18 | XMS_ITS | Encounter Summary ---
Author Organization [facility] Address [address] [place] [address] Phone Care Team Providers Care Alcoholism Worker Name Role Phone Almita Smallwood MD Primary Care Provider + Almita Smallwood MD Unavailable [phone] Encounter Details Date Type Department Care Team (Late st Contact Info) Description 05/26/2021 Orders Only [facility] Surgery [address] Advanced Medicine 5th [place] [address] [place] [address] Linda Buckley MD PhD [address] [facility] [phone] [place] [address] Social History Tobacco Use Types Packs/Day Years [...] on file 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 Gender Identity Not on file Sexual Orientation Not on file 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[employer]) Not on file Not on file Not on file documented as of this encounter Plan of Treatment Scheduled Orders Name Type Priority Associated Diagnoses Orde r Schedule Breast Imaging Outside Consult Imaging Routine Expected: 2021, Expires: 05/26/2022 documented as of this encounter Visit Diagnoses Not on filedocumented in this encounter Care Teams Alcoholism Worker Relationship Specialty Start Date End Date Almita Smallwood MD [address] [place] [address] PCP - General 04/17/20 02/14/23 Almita Smallwood MD [address] [place] [address] Internal Medicine 04/17/20 documented as of this encounter
--- OUTSIDE RECORDS SUMMARY | 2024-04-21 12:18 | XMS_ITS | Encounter Summary ---
Author Organization [facility] Healthcare Address [address] [place] [address] Care Team Providers Care Refinery Operator Name Role Phone Almita Smallwood MD Primary Care Provider + Almita Smallwood MD Unavailable [phone] Jacek Laura MD Unavailable [phone] Encounter Details Date Type Department Care Team (Late st Contact Info) Description 06/07/2021 6:25 PM AIRCRAFT NAVIGATOR Lab [address] [address] Pre-operative laboratory examination Social History Tobacco Use Types Packs/Day Years [...] on file Legal Sex Female 3:38 AM AIRCRAFT NAVIGATOR Gender Identity Not on file Sexual Orientation Not on file 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 ??Testing performed by the [facility] Molecular Infectious Disease Laboratory. The 2018-Novel Coronavirus Assay (COVID-19) Real Time RT-PCR assay is for in vitro diagnostic use under FDA emergency use authorization only. A negative RT-PCR result does not preclude infection with COVID-19 and should not be used as the sole basis for treatment or other patient management decisions. ??Additional sample types have been validated according to CLIA regulations. ?? Current Interpretive Data was last revised on May 22, 2020. First COVID-19 test? Unknown [facility] Employeed in healthcare? Unknown [facility] status? No [facility] Group care resident? No [facility] Hospitalized? Unknown [facility] Is patient in ICU? Unknown [facility] Symptomatic as defined by CDC? No [facility] Nasopharyngeal 06/07/2021 11 :11 AM AIRCRAFT NAVIGATOR 06/07/2021 7:00 PM AIRCRAFT NAVIGATOR Narrative [facility] - 06/07/2021 11:58 PM AIRCRAFT NAVIGATOR What is the reason for testing?->Screening prior to scheduled??procedure or surgery??(Batched) Almita Obando MD LAB MICROBIOLOGY - GENERAL ORDERABLES Final Result Performing Organization Address City/State/[facility] Co de Phone Number [facility] Department [place] [address] documented in this encounter Visit Diagnoses Diagnosis Pre-operative laboratory examination Pre-procedural laboratory examination documented in this encounter Care Teams Refinery Operator Relationship Specialty Start Date End Date Almita Smallwood MD [address] [place] [phone] PCP - General 04/17/20 02/14/23 Almita Smallwood MD [address] [place] [address] Internal Medicine 04/17/20 Jacek Laura MD [address] [phone] Referring Physician Hematology 06/02/21 06/28/22 documented as of this encounter
--- OUTSIDE RECORDS SUMMARY | 2024-04-21 12:18 | XMS_ITS | Encounter Summary ---
Author Organization [facility] Address [address] [place] [address] Care Team Providers Care Pickling Machine Operator Name Role Phone Wolfgang Smallwood MD Primary Care Provider + Wolfgang Smallwood MD Unavailable [phone] Reason for Referral * Consultation (Routine) - Closed Specialty Diagnoses / Procedures Referred By Tati campos Referred To Contact Surgical Oncology Diagnoses 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 [address] [facility] [address] [place] [address] Phone: tel: fax: Linda Singh MD PhD [address] [id number] [place] [address] Phone: tel: fax: Referral ID Status Reason Start Date Expiration Date V isits Requested Visits Authorized [id number] Closed Specialty Services Required 04/29/2021 05/29/2022 1 1 Question Answer Is this referral for Breast [facility]? No Please select the performing region: [facility] (All Locations) [[id number]] To provider: LINDA SINGH [[id number]] # of visits: 1 Comments 61 yo female s/ left breast lumpectomy for DCIS in 11/2016. On Tamoxifen. Needs a new Breast surgeon for follow up. ICAL EDUCATOR * Diagnostic Imaging (Routine) - Closed Specialty Diagnoses / Procedures Referred By Tati t Referred To Contact Diagnoses Screening mammogram, encounter for Procedures Screening [place]amm[place] [id number] [address] Phone: tel: fax: [facility] Referral ID Status Reason Start Date Expiration Date Visits Re quested Visits Authorized [id number] Closed 04/29/2021 05/29/2022 1 1 ICAL EDUCATOR Reason for Visit * Reason Comments Well Women Visit wwe Encounter Details Date Type Department Care Team (Late st Contact Info) Description 04/29/2021 10:00 AM CHEMICAL EDUCATOR Office Visit [facility] Gynecology at [address] [id number] [place] [address] [place] [phone] Well woman exam with routine gynecological exam (Primary Dx); Screening mammogram, encounter for; Screening for malignant neoplasm of cervix; 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 breast; Sciatica of right side Social History Tobacco Use Types Packs/Day Years [...] on file Legal Sex Female 3:38 AM CHEMICAL EDUCATOR Gender Identity Not on file Sexual Orientation Not on file 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 Not on file Not on file documented as of this encounter Last Filed Vital Signs Vital Sign Reading Time Taken Comments Blood Pressure 131/80 04/29/2021 10:10 AM CHEMICAL EDUCATOR Pulse 80 04/29/2021 10:10 AM CHEMICAL EDUCATOR Temperature - - Respiratory Rate - - Oxygen Saturation - - Inhaled Oxygen Concentration - - Weight 75.1 kg (165 lb 9.6 oz) 04/29/2021 10:10 AM CHEMICAL EDUCATOR Height 167.6 cm (5' 5.98 ) 04/29/2021 10:10 AM Melecio CARCAMO Body Mass Index 26.74 04/29/2021 10:10 AM CHEMICAL EDUCATOR documented in this encounter Patient Instructions * Patient Instructions* Wolfgang Obando MD - 04/29/2021 10:00 AM CHEMICAL EDUCATOR Images from the original note were not included. Your breast and pelvic exams today are normal. You can check your MyChart for the results of your Pap smear done today in 7-10 days. Please call [phone] to schedule your mammogram at [facility]. Please call [phone] to schedule appointment to see Dr. Linda Zurita (Breast surgeon). Please follow-up with the director of rehabilitative services, Dr. Litzy Rogel, regarding your questions about your hernia. We will call you when the hospital is allowing elective surgeries again to reschedule the hysteroscopy and D&C for evaluation your thickened uterine lining on pelvic ultrasound. Patient Education Lower Back Exercises EVP [employer] EXPERIENCE STRATEGY: Lower back exercises help heal and strengthen your back muscles to prevent another injury. Ask yourhealthcare provider if you need to see a physical therapist for more advanced exercises. Seek care immediately if: ?? You have severe pain that prevents you from moving. Contact your healthcare provider if: ?? Your pain becomes worse. ?? You have new pain. ?? You have questions or concerns about your condition or care. Do lower back exercises safely: ?? Do the exercises on a mat or firm surface (not on a bed) to support your spine and prevent low back pain. ?? Move slowly and smoothly. Avoid fast or jerky motions. ?? Breathe normally. Do not hold your breath. ?? Stop if you feel pain. It is normal to feel some discomfort at first. Regular exercise will helpdecrease your discomfort over time. Lower back exercises: Your healthcare provider may recommend that you do back exercises 10 to 30 minutes each day. He may also recommend that you do exercises 1 to 3 times each day. Ask your healthcare provider which exercises are best for you and how often to do them. ?? Ankle pumps: Lie on your back. Move your foot up (with your toes pointing toward your head). Then, move your foot down (with your toes pointing away from you). Repeat this exercise 10 times on each side. ?? Heel slides: Lie on your back. Slowly bend one leg and then straighten it. Next, bend the other leg and then straighten it. Repeat 10 times on each side. ?? Pelvic tilt: Lie on your back with your knees bent and feet flat on the floor. Place your arms in a relaxed position beside your body. Tighten the muscles of your abdomen and flatten your back against the floor. Hold for 5 seconds. Repeat 5 times. ?? Back stretch: Lie on your back with your hands behind your head. Bend your knees and turn the lower half of your body to one side. Hold this position for 10 seconds. Repeat 3 times on each side. ?? Straight leg raises: Lie on your back with one leg straight. Bend the other knee. Tighten your abdomen and then slowly lift the straight leg up about 6 to 12 inches off the floor. Hold for 1 to 5 seconds. Lower your leg slowly. Repeat 10 times on each leg. ?? Hgpe-gs-oskgt: Lie on your back with your knees bent and feet flat on the floor. Pull one of your knees toward your chest and hold it there for 5 seconds. Return your leg to the starting position.Lift the other knee toward your chest and hold for 5 seconds. Do this 5 times on each side. ?? Cat and camel: Place your hands and knees on the floor. Arch your back upward toward the ceilingand lower your head. Round out your spine as much as you can. Hold for 5 seconds. Lift your head upward and push your chest downward toward the floor. Hold for 5 seconds. Do 3 sets or as directed. ?? Wall squats: Stand with your back against a wall. Tighten the muscles of your abdomen. Slowly lower your body until your knees are bent at a 45 degree angle. Hold this position for 5 seconds. Slowly move back up to a standing position. Repeat 10 times. ?? Curl up: Lie on your back with your knees bent and feet flat on the floor. Place your hands, palms down, underneath the curve in your lower back. Next, with your elbows on the floor, lift your shoulders and chest 2 to 3 inches. Keep your head in line with your shoulders. Hold this position for 5seconds. When you can do this exercise without pain for 10 to 15 seconds, you may add a rotation. While your shoulders and chest are lifted off the ground, turn slightly to the left and hold. Repeat on the other side. ?? Bird dog: Place your hands and knees on the floor. Keep your wrists directly below your shoulders and your knees directly below your hips. Pull your belly button in toward your spine. Do not flatten or arch your back. Tighten your abdominal muscles. Raise one arm straight out so that it is aligned with your head. Next, raise the leg opposite your arm. Hold this position for 15 seconds. Lower your arm and leg slowly and change sides. Do 5 sets. ?? 2017 [employer] Information is for End User's use only and may not be sold, redistributed or otherwise used for commercial purposes. All illustrations and images included in CareNotes?? are the copyrighted property of [employer]. or [employer]. The above information is an environmental engineering aide only. It is not intended as medical advice for individual conditions or treatments. Talk to your doctor, nurse or pharmacist before following any medical regimen to see if it is safe and effective for you. ICAL EDUCATOR ICAL EDUCATOR ICAL EDUCATOR ICAL EDUCATOR documented in this encounter Progress Notes * Wolfgang Obando MD - 04/29/2021 10:00 AM CST Images from the original note were not included. 04/29/2021 Chief Complaint Patient presents with ??? Well Women Visit wwe HPI: Lisa Hermosillo??is a ?61 y.o.??(1960)??Single white female. Postmenopausal since 2014. S/P Stage 0 (DCIS, ER+) left breast CA,??11/2016 lumpectomy. No XRT or chemorx, only Tamoxifen. She is??here for well-woman exam. She was scheduled for a hysteroscopy with D&C on 05/28/21 for evaluation of thickened endometrium (see below) but all elective surgeries have been postponed due to recent surge and COVID-19. Will reschedule once [facility] OR releases the schedule to elective surgeries. No vaginal bleeding since 06/27/20 endometrial biopsy. No vaginitis symptoms. Has been voiding more due to increased fluids (sits at a desk for 12 hrs): large tea & large soda (Coke & Dr. Trujillo) from [employer] daily. 8 oz hot chocolate/day. No urinary incontinence unless shewaits too long to void. No SAMI. She says she was told she had of hernia when she had her EGD 03/2020. She feels she has some upper abdominal fullness after meals. I suggested she call the director of rehabilitative services for instructions. Has had a recurrence of her right low back pain with sciatica due to weight gain (6 lbs since 03/2020). She is doing Weight Watchers again. Would like to establish with a new PCP. She works with our manager in training, Lorin Padilla, at the [facility], so will get her recommendations. I included the sciatica back exercises with her AVS. She has not taken any medications other than Tylenol. ASA work last time so she will try this again. She no longer has a breast surgeon (her 11/2016 lumpectomy surgeon has moved), so she is referred toDr. Linda Singh. She may also need a referral to a new medical oncologist as she missed her last appointment with her [facility] and would like to change to [facility]. Briefly discussed having her switch from tamoxifen to an AI. Menstrual History: Menarche Age: 15 years No LMP recorded (lmp unknown). Patient is postmenopausal. Period Pattern: None ?? Sexual History: Sexual History Gender of sexual partners: Men (Last sexually active in 2009.) Sexually Transmitted Infection History: None ?? As she is on tamoxifen adjuvant therapy for breast cancer, pelvic ultrasound was done last year to assess endometrial thickness. 04/24/20 Pelvic ultrasound; The uterus is 7.4 x 5.5 x [...] No free fluid seen in the cul-de-sac. She returned on 06/27/20 for an endometrial [...] 11 mm. Differential includes hyperplasia, polyp and carcinoma.?? Will reschedule her hysteroscopy with D&C once [facility] OR opens the schedule to elective surgeries. OB History 3 Para 2 Term 2 AB 1 Living 2 SAB 0 IAB 1 Ectopic 0 Multiple Live Births 2 # Outcome Date GA Labor/2nd Weight Sex Delivery Anes PTL Lv A1 A5 1 IAB 2 Term 1981 M Vag-Spont Living 3 Term 1983 F Vag-Spont Living Patient Active Problem List Diagnosis Date Noted ??? 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 breast 04/16/2020 S/P Lumpectomy 11/2016. ER (+). LN (-). No XRT or chemorx needed. On Tamoxifen. Past Medical History: Diagnosis Date ??? Breast cancer (CMS/HCC) (HCC) Past Surgical History: Procedure Laterality Date ??? BREAST LUMPECTOMY Left 11/2016 For Stage 0 breast CA at [facility] in [place], [place]. No chemorx or XRT, only Tamoxifen. ??? TUBAL LIGATION Social History Socioeconomic History ??? Marital status: Spouse name: Not on file ??? Number of children: 2 ??? Years of education: Not on file ??? Highest education level: Not on file Occupational History ??? 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 Tobacco Use ??? Smoking status: Former Smoker Quit date: 2004 Years since quittin.0 ??? Smokeless tobacco: Never Used Substance and [...] on file Housing Stability: Not on file Review of Systems Constitutional: Negative for activity change, chills and fever. Respiratory: Negative for chest tightness and shortness of breath. Breasts: Soft, non-tender, no masses, lesions or nipple discharge. Cardiovascular: Negative for chest pain. Gastrointestinal: Negative for abdominal pain, constipation and diarrhea. Genitourinary: Negative for dysuria and genital sores. No abnormal vaginal discharge or vaginitis symptoms. Musculoskeletal: Positive for back pain. Neurological: Negative for headaches. Psychiatric/Behavioral: Negative for dysphoric mood and sleep disturbance. Vitals: 04/29/21 1010 BP: 131/80 Pulse: 80 Weight: 75.1 kg (165 lb 9.6 oz) Height: 167.6 cm (5' 5.98 ) Body mass index is 26.74 kg/m??. Physical Exam Constitutional: General: She is not in acute distress. Appearance: Normal appearance. She is well-developed. She is not ill-appearing. HENT: Head: Normocephalic and atraumatic. Eyes: Conjunctiva/sclera: Conjunctivae normal. Neck: Thyroid: No thyromegaly. Cardiovascular: Rate and Rhythm: Regular rhythm. Heart sounds: Normal heart sounds. Pulmonary: Effort: Pulmonary effort is normal. Breath sounds: Normal breath sounds. Chest: Breasts: Right: Normal. No mass, nipple discharge, skin change, tenderness or supraclavicular adenopathy. Left: Normal. No mass, nipple discharge, skin change, tenderness or supraclavicular adenopathy. Comments: Well-healed left jomar-areola scar. Abdominal: General: Bowel sounds are normal. Palpations: Abdomen is soft. There is no mass. Tenderness: There is no abdominal tenderness. There is no guarding. Genitourinary: Rectum normal, vagina normal and uterus normal. There is no rash or lesion on the left labia. Thereis no rash or lesion on the left labia. Right adnexa: normal. Right adnexa does not display mass and does not display tenderness. Left adnexa: normal. Left adnexa does not display mass and does not display tenderness. Cervix: Normal exam. Uterus is mobile and midaxial. Uterus is not enlarged or tender. Musculoskeletal: General: Normal range of motion. Cervical back: Normal range of motion and neck supple. Lymphadenopathy: Upper Body: Right upper body: No supraclavicular adenopathy. Left upper body: No supraclavicular adenopathy. Lower Body: No right inguinal adenopathy. No left inguinal adenopathy. Skin: General: Skin is warm and dry. Neurological: Mental Status: She is alert and oriented to person, place, and time. Psychiatric: Behavior: Behavior normal. Thought Content: Thought content normal. Judgment: Judgment normal. Last PAP: 04/16/20 normal, HR HPV (-). Breast Cancer Screening: Colon Cancer Screenin03/2020, normal. Repeat 5 yrs (+FHX colon CA, mom & sister) Concurrent EGD bx (-). RX Omeprazole. Done by Dr. Litzy Mena Diagnoses and all orders for this visit: Well woman exam with routine gynecological exam (Primary) Comments: Normal breast and pelvic exam. Pap done. Mammogram ordered. Current on colonoscopy. Screening mammogram, encounter for Comments: Mammogram ordered. Orders: - Screening Mammogram Bilateral W Chris; Future Screening for malignant neoplasm of cervix Comments: Pap done. Orders: - Pap and High Risk HPV, reflex to Genotyping; Future 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 breast Comments: Mammogram ordered. Referred to Dr. Singh as her breast surgeon has moved. Orders: - Ambulatory referral to Breast Surgery Sciatica of right side Comments: Doing Weight Watchers for weight loss. Including sciatic back exercise instructions with AVS. To see PCP if persists. Body mass index is 26.74 kg/m??. Wolfgang Obando MD ICAL EDUCATOR documented in this encounter Plan of Treatment Scheduled Orders Name Type Priority Associated Diagnoses Orde r Schedule Pap and High Risk HPV, reflex to Genotyping Pathology and Cytology Routine Screening for malignant neoplasm of cervix Expected: 04/29/2021, Expires: 04/29/2022 Scheduled Referrals Name Type Priority Associated Diagnoses Order Schedule Ambulatory referral to Breast Surgery Outpatient Referral Routine 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 breast Ordered: 04/29/2021 documented as of this encounter Results * Screening Mammogram Bilateral W Chris (06/25/2021 8:24 AM CHEMICAL EDUCATOR) Anatomical Region Laterality Modality Breast Bilateral Mammography [...] interval change. Wolfgang Obando MD IMG MAMMO NC OCEDURES Final Result documented in this encounter Visit Diagnoses Diagnosis Well woman exam with routine gynecological exam- Primary Routine gynecological examination Screening mammogram, encounter for Screening for malignant neoplasm of cervix Screening for malignant neoplasm of the cervix 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 breast Sciatica of right side Screening mammogram, encounter for documented in this encounter Care Teams Pickling Machine Operator Relationship Specialty Start Date End Date Wolfgang Smallwood MD [address] [place] [address] PCP - General 04/17/20 02/14/23 Wolfgang Smallwood MD [address] [place] [address] Internal Medicine 04/17/20 documented as of this encounter
--- OUTSIDE RECORDS SUMMARY | 2024-04-21 12:18 | XMS_ITS | Encounter Summary ---
Author Organization [facility] Address [address] [place] [address] Care Team Providers Care Geographic Information Scientist Name Role Phone Almita Smallwood MD Primary Care Provider + Almita Smallwood MD Unavailable [phone] Encounter Details Date Type Department Care Team (Late st Contact Info) Description 04/23/2021 Telephone [facility] Gynecology at [facility] [address] [place] [phone] [place] [address] [facility] [address] [place] [address] Social History Tobacco Use Types [...] on file Legal Sex Female 3:38 AM LICENSED FINAL EXPENSE AGENTS Gender Identity Not on file Sexual Orientation Not on file 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 Once the hospital allows us to do elective surgeries again, we will call her to reschedule. Please let [facility] OR know. [employer] documented in this encounter Plan of Treatment Not on file documented as of this encounter Visit Diagnoses Not on filedocumented in this encounter Care Teams Geographic Information Scientist Relationship Specialty Start Date End Date Almita Smallwood MD [address] [place] [address] PCP - General 04/17/20 02/14/23 Almita Smallwood MD [address] [place] [address] Internal Medicine 04/17/20 documented as of this encounter
--- OUTSIDE RECORDS SUMMARY | 2024-04-21 12:18 | XMS_ITS | Encounter Summary ---
Author Organization [facility] Healthcare Address [address] [place] [address] Care Team Providers Care Aluminum Sheet Cutter Name Role Phone Almita Smallwood MD Primary Care Provider + Almita Smallwood MD Unavailable [phone] Encounter Details Date Type Department Care Team (Late st Contact Info) Description 05/01/2020 8:[address] LIGHT SERVICER HELPER Hospital Encounter [facility] LitzyMinerva MD [address] [place] [address] Social History Tobacco Use Types Packs/Day Years Used Date Smoking Tobacco: Never Assessed PHQ-2 Answer Date Recorded PHQ-2 Total Score (If total score is 3 or more points, staff should administer the PHQ-9) 0 04/16/2020 Comments No Sex and Gender Information Value Date Recorded Sex Assigned at Not on file Legal Sex Female 3:[address] LIGHT SERVICER HELPER Gender Identity Not on file Sexual [...] inhaler Inhale 1 puff daily 04/16/2020 06/29/2022 multivitamin liquid Take 6 each by mouth daily 06/04/2019 04/06/2022 omeprazole (PriLOSEC) 20 mg capsule TAKE 1 CAPSULE BY MOUTH ONCE DAILY FOR 30 DAYS 04/10/2020 06/11/2021 tamoxifen (NOLVADEX) 20 mg tablet Take 20 mg by mouth daily 02/22/2020 06/11/2021 documented as of this encounter Plan of Treatment Not on file documented as of this encounter Procedures Procedure Name Priority Date/Time Associated Diagnosis Comments US RUQ 05/01/2020 12:[address] LIGHT SERVICER HELPER documented in this encounter Results * US RUQ (05/01/2020 12:[address] LIGHT SERVICER HELPER) Anatomical Region Laterality Modality Abdomen N/A Ultrasound 05/01/2020 12:[address] LIGHT SERVICER HELPER Narrative 05/01/2020 12:[address] LIGHT SERVICER HELPER Patient Name: ANITHA HERMOSILLO ?Ordering Dr: Minerva Mcghee MD ?? D.O.B: 1960 ? Exam Date: 05/01/20 ?? 1203 ?? Age: 60 ?Sex: Female ? MR#: [id number] ?? Loc: ? RADIOLOGY REPORT ?? Order #[id number] ?? Ultrasound ? US Abd/Right Upper Quadrant ? Signed ? EXAM DESCRIPTION: ?? US Abd/Right Upper Quadrant ? REASON FOR STUDY: ?? Right upper quadrant pain ? TECHNIQUE: ??Ultrasound of the right upper quadrant of the abdomen was ?? performed with grayscale and color doppler. ? COMPARISON: ?? None ? FINDINGS: ? PANCREAS: ??Visualized portions of the pancreas are within normal limits. ?? Portions of the pancreatic body and tail are obscured due to bowel gas. ? LIVER: ??The liver appears normal in echotexture and echogenicity. ??The liver ?? measures 12.2 cm in length. ??No focal lesion identified. ??There is hepatopetal ?? flow in the main portal vein. ? GALLBLADDER: ??The gallbladder appears unremarkable. No cholelithiasis. ??No ?? gallbladder wall thickening or pericholecystic fluid. ??The gallbladder wall ?? measures 0.1 cm. ??No positive sonographic Blue's sign reported. ? BILIARY: ??There is no intrahepatic or extrahepatic biliary ductal dilatation. ?? Common bile duct measures ??0.3 cm in diameter. ? RIGHT KIDNEY: ??The right kidney measures at least 9.5 cm in bipolar length and ?? 3.7 x 5.0 cm in transverse dimension. ??The cortical thickness is 0.9 cm. ? There is no hydronephrosis. ? OTHER: ??No right upper quadrant ascites. ? IMPRESSION: ?? No cholelithiasis or sonographic evidence of acute cholecystitis. ? THIS IS AN ELECTRONICALLY VERIFIED FINAL REPORT ?? 05/01/2020 12:46 PM - Electronically signed by Jerad Hugo M.D. ?? Jerad Hugo M.D. ? AK: [email or web address] ?? D: ??05/01/2020 12:46 PM ?? T: ??05/01/2020 12:46 PM ? Report ID: [id number] ?? Reading Location: ??[id number] ? REPORT ELECTRONICALLY SIGNED IN OTHER VENDOR SYSTEM ?? Resulting Agency Comment O Procedure Note Jerad Hugo MD - 05/01/2020 Patient Name: Sander HERMOSILLO Dr: Minerva Mcghee MD D.O.B: 1960 Exam Date: 05/01/20 1203 Age: 60 Sex: Female MR#: [id number] Loc: RADIOLOGY REPORT Order #[id number] Ultrasound US Abd/Right Upper Quadrant Signed EXAM DESCRIPTION: US Abd/Right Upper Quadrant REASON FOR STUDY: Right upper quadrant pain TECHNIQUE: Ultrasound of the right upper quadrant of the abdomen was performed with grayscale and color doppler. COMPARISON: None FINDINGS: PANCREAS: Visualized portions of the pancreas are within normal limits. Portions of the pancreatic body and tail are obscured due to bowel gas. LIVER: The liver appears normal in echotexture and echogenicity. Theliver measures 12.2 cm in length. No focal lesion identified. There ishepatopetal flow in the main portal vein. GALLBLADDER: The gallbladder appears unremarkable. No cholelithiasis.No gallbladder wall thickening or pericholecystic fluid. The gallbladderwall measures 0.1 cm. No positive sonographic Blue's sign reported. BILIARY: There is no intrahepatic or extrahepatic biliary ductaldilatation. Common bile duct measures 0.3 cm in diameter. RIGHT KIDNEY: The right kidney measures at least 9.5 cm in bipolarlength and 3.7 x 5.0 cm in transverse dimension. The cortical thickness is 0.9 cm. There is no hydronephrosis. OTHER: No right upper quadrant ascites. IMPRESSION: No cholelithiasis or sonographic evidence of acutecholecystitis. THIS IS AN ELECTRONICALLY VERIFIED FINAL REPORT 05/01/2020 12:46 PM - Electronically signed by Jerad Hugo M.D. AK: [email or web address] Report ID: [id number] Reading Location: [id number] REPORT ELECTRONICALLY SIGNED IN OTHER VENDOR SYSTEM us Minerva Mcghee MD IMG US PROCEDURES Final R esult documented in this encounter Visit Diagnoses Not on filedocumented in this encounter Care Teams Aluminum Sheet Cutter Relationship Specialty Start Date End Date Almita Smallwood MD [address] [place] [address] PCP - General 04/17/20 02/14/23 Almita Smallwood MD [address] [place] [address] Internal Medicine 04/17/20 documented as of this encounter
--- OUTSIDE RECORDS SUMMARY | 2024-04-21 12:18 | XMS_ITS | Encounter Summary ---
Author Organization [facility] Healthcare Address [address] [place] [address] Care Team Providers Care Tomato Grader Name Role Phone Almita Smallwood MD Primary Care Provider + Almita Smallwood MD Unavailable [phone] Reason for Referral * Diagnostic Imaging (Routine) - Closed Specialty Diagnoses / Procedures Referred By Tati campos Referred To Contact Diagnoses Thickened endometrium Procedures [place] [address] [place] [address] Phone: tel: fax: [facility] Referral ID Status Reason Start Date Expiration Date Visits Re quested Visits Authorized [id number] Closed 07/17/2020 08/16/2021 1 1 SITTER Reason for Visit * Diagnostic Imaging (Routine) - Closed Specialty Diagnoses / Procedures Referred By Tati campos Referred To Contact Diagnoses Thickened endometrium Procedures [place] [address] [address] Phone: tel: fax: [facility] Referral ID Status Reason Start Date Expiration Date Visits Re quested Visits Authorized [id number] Closed 07/17/2020 08/16/2021 1 1 Encounter Details Date Type Department Care Team (Late st Contact Info) Description 03/19/2021 8:07 AM CAT SITTER - 03/19/2021 11:59 PM CAT SITTER Hospital Encounter [facility] [address] [place], [place] [id number] [place] [address] [facility] [address] [place] [address] Thickened endometrium Discharge Disposition: Discharge to home [...] on file Legal Sex Female 3:38 AM CAT SITTER Gender Identity Not on file Sexual Orientation Not on file 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 Not on file N ot on file [...] 02/22/2020 06/11/2021 documented as of this encounter Discharge Disposition Disposition Code Departure Means Destination Discharge to home or self care documented in this encounter Plan of Treatment Not on file documented as of this encounter Procedures Procedure Name Priority Date/Time Associated Diagnosis Comments US PELVIS W ENDOVAGINAL Schedule Routine, Read Routine (OP Routine) 03/19/2021 9:13 AM CAT SITTER Thickened endometrium documented in this encounter Results * US Pelvis W Endovaginal (03/19/2021 9:13 AM CAT SITTER) Anatomical Region Laterality Modality Pelvis N/A Ultrasound 03/20/2021 8:20 AM CAT SITTER Impressions 03/20/2021 8:20 AM CAT SITTER Heterogeneous nonenlarged uterus without focal lesion seen. Endometrial thickening of 11 mm. ??Differential includes hyperplasia, polyp and carcinoma. Electronically signed by: Antoinette Jimenes M.D. Narrative 03/20/2021 8:20 AM CAT SITTER EXAM: PELVIC ULTRASOUND DATE: 03/19/2021 8:30 AM [...] carcinoma. Electronically signed by: Antoinette Jimenes M.D. us Almita Obando MD IMG US NUSRAT KHALIL Final Result documented in this encounter Visit Diagnoses Diagnosis Thickened endometrium Nonspecific (abnormal) findings on radiological and other examination of genitourinary organs documented in this encounter Care Teams Tomato Grader Relationship Specialty Start Date End Date Almita Smallwood MD [address] [place] [address] PCP - General 04/17/20 02/14/23 Almita Smallwood MD [address] [place] [address] Internal Medicine 04/17/20 documented as of this encounter
--- OUTSIDE RECORDS SUMMARY | 2024-04-21 12:18 | XMS_ITS | Encounter Summary ---
Author Organization [facility] Healthcare Address [address] [place] [address] Care Team Providers Care Frozen Foods Manager Name Role Phone Almita Smallwood MD Primary Care Provider + Almita Smallwood MD Unavailable [phone] Encounter Details Date Type Department Care Team (Late st Contact Info) Description 06/27/2020 2:20 PM ECHOCARDIOGRAPHY TECHNOLOGIST Lab [address] [address] Thickened endometrium Social History Tobacco Use Types Packs/Day Years [...] on file Legal Sex Female 3:38 AM ECHOCARDIOGRAPHY TECHNOLOGIST Gender Identity Not on file Sexual Orientation Not on file 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 Please let her know that the endometrial biopsy did not show any endometrial tissue. I feel like I had adequately sampled the uterine lining at the time of the endometrial biopsy and suspect that the endometrial tissue has actually thinned out. She is on tamoxifen following treatment for breast cancer in 2017. A pelvic ultrasound done in April showed [...] Date/Time Associated Diagnosis Comments SURGICAL PATHOLOGY Routine 06/27/2020 9: 00 AM ECHOCARDIOGRAPHY TECHNOLOGIST Thickened endometrium documented in this encounter Results * Surgical pathology (06/27/2020 9:00 AM ECHOCARDIOGRAPHY TECHNOLOGIST) Tissue (Endometrial biopsy) 06/27/2020 9:00 AM ECHOCARDIOGRAPHY TECHNOLOGIST 06/30/2020 9:00 AM CDT Narrative PATHOLOGY CH - 07/01/2020 9:53 AM CDT EPIC results best viewed via link to PDF [facility] Department of Pathology [address] [place] [address] Final Report Patient Name: ??ANITHA HERMOSILLO Address: ??[address] ??[place], [place] [address] Gender: ??F : ??1960 (Age: 60) Service: ??Laboratory Location: ??Lab Hospital #: ??[id number] Patient Type: ?? Ref Lab Accession # ?[id number] Taken: ??06/27/2020 Received: ??06/30/2020 Accessioned: ??06/30/2020 Reported: ??07/01/2020 Physician(s):Almita Obando Diagnosis: Uterus, endometrium, biopsy ? - Scant small superficial strips of mucosa and blood ? - See description Segun David MD PhD Report Electronically Reviewed and Signed Out By ??Segun David MD PhD ??07/01/2020 09:53:02 Specimen(s) Received: A: Endometrial biopsy Microscopic Description: Sections from the endometrium biopsy specimen show abundant red blood cells and scant small superficial strips of mucosa. ??No significant underlying sampling of endometrial glands and stroma is identified. ??Clinical correlation and follow- up are recommended. Clinical History: Thickened endometrium in postmenopausal woman on tamoxifen. Scant tissue obtained at endometrial biopsy Gross Description: The specimen is submitted in a single container labeled Anitha Hermosillo and endometrial biopsy . ??It is an approximate 0.1 cc aggregate of blood tinged mucoid material. ??All in one cassette. ??Mauri Durant M.D./Ofelia Coates REPORT IMAGES AND SCANNED DOCUMENTS, IF INCLUDED, ONLY VIEWABLE IN PDF VERSION OF REPORT The performance characteristics of some immunohistochemical stains, fluorescence in-situ hybridization tests and immunophenotyping by flow cytometry cited in this report (if any) were determined by the Surgical Pathology Department at [facility] as part of an ongoing quality assurance intern program and in compliance with federally mandated [...] characteristics determined by the Surgical Pathology Department [facility]. ??It has not been cleared or approved by the U. [place]. Food and Drug Administration. Almita Obando MD LAB PATHOLOG Y ORDERABLES Final Result PATHOLOGY [address] [place] [address] documented in this encounter Visit Diagnoses Diagnosis Thickened endometrium Nonspecific (abnormal) findings on radiological and other examination of genitourinary organs documented in this encounter Care Teams Frozen Foods Manager Relationship Specialty Start Date End Date Almita Smallwood MD [address] [place] [address] PCP - General 04/17/20 02/14/23 Almita Smallwood MD [address] [place] [address] Internal Medicine 04/17/20 documented as of this encounter
--- OUTSIDE RECORDS SUMMARY | 2024-04-21 12:18 | XMS_ITS | Encounter Summary ---
Author Organization [facility] Address [address] [facility] [address] [place] [address] Care Team Providers Care Hog Cutter Name Role Phone Almita Smallwood MD Primary Care Provider + Almita Smallwood MD Unavailable [phone] Reason for Referral * Procedure (Routine) - Closed Specialty Diagnoses / Procedures Referred By Tati campos Referred To Contact Diagnoses Thickened endometrium Procedures [place]ometrial [place] [address] [address] Phone: tel: fax: [facility] Referral ID Status Reason Start Date Expiration Date Visits Re quested Visits Authorized [id number] Closed 06/27/2020 07/27/2021 1 1 VENDOR Reason for Visit * Reason Comments endometrial biopsy pt here for endometr ial biopsy Encounter Details Date Type Department Care Team (Late st Contact Info) Description 06/27/2020 9:00 AM MILK VENDOR Office Visit [facility] Gynecology at [facility] [address] [facility] [address] [place] [address] [place] [address] [facility] [address] [place] [address] Thickened endometrium (Primary Dx) Social History [...] on file Legal Sex Female 3:38 AM MILK VENDOR Gender Identity Not on file Sexual Orientation Not on file 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 Not on file N ot on file Not on file documented as of this encounter Last Filed Vital Signs Vital Sign Reading Time Taken Comments Blood Pressure 139/77 06/27/2020 8:57 AM MILK VENDOR Pulse 97 06/27/2020 8:57 AM MILK VENDOR Temperature - - Respiratory Rate - - Oxygen Saturation - - Inhaled Oxygen Concentration - - Weight 71.2 kg (157 lb) 06/27/2020 8:57 AM MILK VENDOR Height 167.6 cm (5' 6 ) 06/27/2020 8:57 AM MILK VENDOR Body Mass Index 25.34 06/27/2020 8:57 AM MILK VENDOR documented in this encounter Patient Instructions * Patient Instructions* Almita Obando MD - 06/27/2020 9:00 AM MILK VENDOR Please review the information sheet About Your Endometrial Biopsy given to you today. You can take Ibuprofen 200 mg (4 tablets) or naproxen 220 mg (2 tablets) with a snack every 8 hrs as needed forcramping. Nothing in the vagina (sex, tampons or douching) for 48 hrs following the procedure. Please call back for heavy bleeding (changing a pad every hour) or fever (temperature 100.4 or greater).We will call you with results. Please call back if you haven't heard from the office after 7-10 days. VENDOR documented in this encounter Progress Notes * Almita Obando MD - 06/27/2020 9:00 AM CST DIE PRESSER visit note Chief Complaint: Chief Complaint endometrial biopsy Subjective: Anitha Hermosillo is a 60 y.o. (1960) Single white female. Postmenopausal since 2014. S/P Stage 0 (DCIS, ER+) left breast CA, 11/2016 lumpectomy. No XRT or chemorx, only Tamoxifen. She is here for endometrial biopsy for evaluation of thickened endometrium on ultrasound. 04/16/20 Pap was normal, HR HPV (-). 04/24/20 Pelvic ultrasound; The uterus is 7.4 x 5.5 x 3.9 cm in size. It has a normal contour and echotexture. Midline endometrial echo complex ranges in thickness from [...] reveals normal blood flow to both ovaries. Both ovaries have a normal appearance. No free fluid seen in the cul-de-sac. ?? Menstrual History: Menarche Age: 15 years No LMP recorded (lmp unknown). Patient is postmenopausal. Period Pattern: None ?? Sexual History: Sexual History Gender of sexual partners: Men(Last sexually active in 2009.) Sexually Transmitted Infection History: None OB History 3 Para 2 Term 2 AB 1 Living 2 SAB 0 TAB 1 Ectopic 0 Multiple Live Births 2 # Outcome Date GA Labor/2nd Weight Sex Delivery Anes PTL Lv A1 A5 1 TAB 2 Term 1981 M Vag-Spont Living 3 Term 1983 F Vag-Spont Living Patient Active Problem List Diagnosis ??? 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 breast Past Medical History: Diagnosis Date ??? Breast cancer (CMS/HCC) Past Surgical History: Procedure Laterality Date ??? BREAST LUMPECTOMY Left 11/2016 For Stage 0 breast CA at [facility] in [place], [place]. No chemorx or XRT, only Tamoxifen. ??? TUBAL LIGATION Social History Socioeconomic History ??? Marital status: Spouse name: None ??? Number of children: 2 ??? Years of education: None ??? Highest education level: None Occupational History ??? 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 Tobacco Use ??? Smoking status: Former Smoker Quit date: 2005 Years since quittin.2 ??? Smokeless tobacco: Never Used Substance and Sexual Activity ??? Alcohol use: Yes Comment: rarely ??? Drug use: Never ??? Sexual activity: Not Currently Other Topics Concern ??? None Social History Narrative ??? None Social Determinants of Health Financial Resource Strain: ??? Difficulty of Paying Living Expenses: Food Insecurity: ??? Worried About Running Out of Food in the Last Year: ??? Ran Out of Food in the Last Year: Transportation Needs: ??? Lack of Transportation (Medical): ??? Lack of Transportation (Non-Medical): Physical Activity: ??? Days of Exercise per Week: ??? Minutes of Exercise per Session: Stress: ??? Feeling of Stress : Social Connections: ??? Frequency of Communication with Friends and Family: ??? Frequency of Social Gatherings with Friends and Family: ??? Attends Jainism Services: ??? Active Member of Clubs or Organizations: ??? Attends Club or Organization Meetings: ??? Marital Status: Intimate Partner Violence: ??? Fear of Current or Ex-Partner: ??? Emotionally Abused: ??? Physically Abused: ??? Sexually Abused: Allergies: No Known Allergies Medications: Current Outpatient Medications: ??? albuterol HFA (PROVENTIL HFA,VENTOLIN HFA,PROAIR HFA) 90 mcg/actuation inhaler, Inhale 2 puffs every 4 hours as needed, Disp: , Rfl: ??? collagen, hydrolysate, bovine, (COLLAGEN, HYDR, BOVINE,, BULK, MISC), by Misc.(Non-Drug; Combo Route) route., Disp: , Rfl: ??? jwrzdamtlhu-czhlbxvih-caytdpzi (TRELEGY ELLIPTA) 100-62.5-25 mcg inhaler, Inhale 1 puff daily, Disp: , Rfl: ??? levocetirizine (XYZAL) 5 mg tablet, Take 5 mg by mouth, Disp: , Rfl: ??? montelukast (SINGULAIR) 10 mg tablet, Take 10 mg by mouth daily, Disp: , Rfl: ??? multivitamin liquid, Take 6 each by mouth daily, Disp: , Rfl: ??? omeprazole (PriLOSEC) 20 mg capsule, TAKE 1 CAPSULE BY MOUTH ONCE DAILY FOR 30 DAYS, Disp: , Rfl: ??? tamoxifen (NOLVADEX) 20 mg tablet, Take 20 mg by mouth daily, Disp: , Rfl: Family History Problem Relation Age of Onset ??? Other (Colon cancer at 49 yo, at 63 yo.) Mother ??? Other (Colon cancer at 55, survived) Sister Review of Systems: Review of Systems Constitutional: [...] dysphoric mood and sleep disturbance. Objective: BP 139/77 (BP Location: Left arm, Patient Position: Sitting) Pulse 97 Ht 167.6 cm (5' 6 ) Wt 71.2 kg (157 lb) LMP (Within Years) Comment: LMP around 49 years old BMI 25.34 kg/m?? Physical Exam: See endometrial biopsy note. Assessment and Plan: Anitha Hermosillo is a 60 y.o. female Anitha was seen today for endometrial biopsy. Diagnoses and all orders for this visit: Thickened endometrium Comments: Endometrial biopsy done. Scant tissue obtained despite 2 passes. Postprocedure instructions and precautions given. Will notify her with results. Orders: - Endometrial Biopsy Only - Surgical pathology; Future Almita Obando MD 06/27/2020 VENDOR documented in this encounter Procedure Notes * Almita Obando MD - 06/27/2020 9:00 AM CSTAssociated Order(s): Endometrial Biopsy Only Post-Procedure Diagnose(s): Thickened endometrium Endometrial Biopsy Only Performed by: Almita Obando MD Authorized by: Almita Obando MD Consent Given by: Patient Timeout: prior to procedure the correct patient, procedure, and site was verified Verbal consent obtained: Yes Preparation: Patient was prepped using a clean technique Indications comment: Thickened postmenopausal endometrium on pelvic ultrasound Procedure comment: Endometrial biopsy with uterine explora syringe curette A bivalve speculum was placed in the vagina: yes Cervix cleaned and prepped: yes A paracervical block was performed: yes An intracervical block was performed: yes Local anesthetic: Lidocaine 1% with epinephrine Anesthetic total (ml): 10 The cervix was dilated: yes Uterus sounded: yes Uterus sound depth (cm): 8 Curettes used: 1 Specimen collected: specimen collected and sent to pathology Patient tolerance: Patient tolerated the procedure well with no immediate complications Findings: Uterus size: 6-8 weeks Cervix: normal Adnexa: normal Scant tissue obtained despite two 4-quadrant passes. VENDOR documented in this encounter Plan of Treatment Not on file documented as of this encounter Procedures Procedure Name Priority Date/Time Associated Diagnosis Comments MI ENDOMETRIAL BX W/WO ENDOCERVIX BX W/O DILAT SPX Routine 06/27/2020 9:00 AM MILK VENDOR Thickened endometrium documented in this encounter Results * MI ENDOMETRIAL BX W/WO ENDOCERVIX BX W/O DILAT SPX (06/27/2020 9:00 AM MILK VENDOR) Narrative Almita Obando MD - 06/27/2020 9:00 AM MILK VENDOR Almita Obando MD ? 06/27/2020 10:23 AM Endometrial Biopsy Only Performed by: Almita Obando MD Authorized by: Almita Obando MD Consent Given by: ??Patient Timeout: prior to procedure the correct patient, procedure, and site was verified ?? Verbal consent obtained: Yes ?? Preparation: Patient was prepped using a clean technique ?? Indications comment: ??Thickened postmenopausal endometrium on pelvic ultrasound Procedure comment: ??Endometrial biopsy with uterine explora syringe curette A bivalve speculum was placed in the vagina: yes ?? Cervix cleaned and prepped: yes ?? A paracervical block was performed: yes ?? An intracervical block was performed: yes ?? Local anesthetic: ??Lidocaine 1% with epinephrine Anesthetic total (ml): ??10 The cervix was dilated: yes ?? Uterus sounded: yes ?? Uterus sound depth (cm): ??8 Curettes used: ??1 Specimen collected: specimen collected and sent to pathology ?? Patient tolerance: ??Patient tolerated the procedure well with no immediate complications Findings: Uterus size: ??6-8 weeks Cervix: normal ?? Adnexa: normal ?? Scant tissue obtained despite two 4-quadrant passes. us Almita Obando MD IN CLINIC/BE DSIDE ORDERABLES Final Result * Surgical pathology (06/27/2020 9:00 AM MILK VENDOR) Tissue (Endometrial biopsy) 06/27/2020 9:00 AM MILK VENDOR 06/30/2020 9:00 AM CDT Narrative PATHOLOGY - 07/01/2020 9:53 AM CDT [facility] results best viewed via link to PDF [facility] Department of Pathology [address] [place] [address] Final Report Patient Name: ??ANITHA HERMOSILLO Address: ??[address],, ??[place], [place] [address] Gender: ??F : ??1960 (Age: 60) Service: ??Laboratory Location: ??Lab Hospital #: ??[id number] Patient Type: ?? Ref Lab Accession # ?[id number] Taken: ??06/27/2020 Received: ??06/30/2020 Accessioned: ??06/30/2020 Reported: [...] determined by the Surgical Pathology Department at [facility] as part of an ongoing manufacturing [...] characteristics determined by the Surgical Pathology Department [facility]. ??It has not been cleared or approved by the U. S. Food and Drug Administration. Almita Obando MD LAB PATHOLOG Y ORDERABLES Final Result PATHOLOGY [address] [place] [address] documented in this encounter Visit Diagnoses Diagnosis Thickened endometrium- Primary Nonspecific (abnormal) findings on radiological and other examination of genitourinary organs Thickened endometrium Nonspecific (abnormal) findings on radiological and other examination of genitourinary organs documented in this encounter Historical Medications * This list may reflect changes made after this encounter. montelukast (SINGULAIR) 10 mg tablet Take 10 mg by mouth nightly 06/20/2020 04/06/2022 fluticasone-umecl idin-vilanter (TRELEGY ELLIPTA) 100-62.5-25 mcg inhaler Inhale 1 puff daily 04/16/2020 06/29/2022 added in this encounter Care Teams Hog Cutter Relationship Specialty Start Date End Date Almita Smallwood MD [address] [place] [address] PCP - General 04/17/20 02/14/23 Almita Smallwood MD [address] [place] [address] Internal Medicine 04/17/20 documented as of this encounter
--- OUTSIDE RECORDS SUMMARY | 2024-04-21 12:18 | XMS_ITS | Encounter Summary ---
Author Organization [facility] Address [address] [facility] [address] [place] [address] Care Team Providers Care Metallurgical Tester Name Role Phone Almita Smallwood MD Primary Care Provider + Almita Smallwood MD Unavailable [phone] Reason for Visit * Reason Onset Date Comments Documentation 05/27/2021 Encounter Details Date Type Department Care Team (Late st Contact Info) Description 05/27/[address] 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 Surgery: 06/11/21 @ 11am Post op 06/26/21 @ 11:30am Order placed ALER documented in this encounter Plan of Treatment Not on file documented as of this encounter Visit Diagnoses Diagnosis Preop testing- Primary Unspecified pre-operative examination documented in this encounter Care Teams Metallurgical Tester Relationship Specialty Start Date End Date Almita Smallwood MD [address] [place] [address] PCP - General 04/17/20 02/14/23 Almita Smallwood MD [address] [place] [address] Internal Medicine 04/17/20 documented as of this encounter
--- OUTSIDE RECORDS SUMMARY | 2024-04-21 12:18 | XMS_ITS | Encounter Summary ---
Author Organization [facility] Address [address] [facility] [address] [place] [address] Care Team Providers Care Transcription Name Role Phone Almita Smallwood MD Primary Care Provider + Almita Smallwood MD Unavailable [phone] Jacek Laura MD Unavailable [phone] Reason for Visit * Reason Onset Date Comments Documentation 06/04/2021 Encounter Details Date Type Department Care Team (Late st Contact Info) Description 06/04/2021 Telephone [facility] Gynecology at [facility] [address] [facility] [address] [place] [address] [place] [address] [facility] [address] [place] [address] Documentation Social History Tobacco Use Types [...] on file Legal Sex Female 3:38 AM MAJOR LEAGUE BASEBALL UMPIRE Gender Identity Not on file Sexual Orientation Not on file 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 Pt voiced understanding and will complete this on Tuesday or Tuesday. Order placed R LEAGUE BASEBALL UMPIRE documented in this encounter Plan of Treatment Not on file documented as of this encounter Visit Diagnoses Not on filedocumented in this encounter Care Teams Transcription Relationship Specialty Start Date End Date Almita Smallwood MD [address] [place] [address] PCP - General 04/17/20 02/14/23 Almita Smallwood MD [address] [place] [address] Internal Medicine 04/17/20 Jacek Laura MD [address] [id number] Referring Physician Hematology 06/02/21 06/28/22 documented as of this encounter
--- OUTSIDE RECORDS SUMMARY | 2024-04-21 12:18 | XMS_ITS | Encounter Summary ---
Author Organization [facility] Address [address] [facility] [address] [place] [address] Care Team Providers Care Case Aide Name Role Phone Almita Smallwood MD Primary Care Provider + Almita Smallwood MD Unavailable [phone] Encounter Details Date Type Department Care Team (Late st Contact Info) Description 08/14/2020 7:30 AM CDT Immunization [address] [address] Encounter for vaccination (Primary Dx) Social History [...] on file Legal Sex Female 3:38 AM CYTOTECHNOLOGIST/HISTOTECHNOLOGIST Gender Identity Not on file Sexual Orientation Not on file 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 Not on file N ot on file Not on file documented as of this encounter Plan of Treatment Not on file documented as of this encounter Visit Diagnoses Diagnosis Encounter for vaccination- Primary documented in this encounter Orders Immunization/Injection Count Last Ordered Date First Ordered Date PFIZER SARS-COV-2 VACCINE 1 08/14/2020 PFIZER SARS-COV-2 VACCINE 2ND DOSE APPT 1 0 08/14/2020 documented in this encounter Care Teams Case Aide Relationship Specialty Start Date End Date Almita Smallwood MD [address] [place] [address] PCP - General 04/17/20 02/14/23 Almita Smallwood MD [address] [place] [address] Internal Medicine 04/17/20 documented as of this encounter
--- OUTSIDE RECORDS SUMMARY | 2024-04-21 12:18 | XMS_ITS | Encounter Summary ---
Author Organization [facility] Address [address] [facility] [address] [place] [address] Care Team Providers Care Yeast Cake Cutter Name Role Phone Wolfgang Smallwood MD Primary Care Provider + Wolfgang Smallwood MD Unavailable [phone] Jacek Laura MD Unavailable [phone] Encounter Details Date Type Department Care Team (Late st Contact Info) Description 06/07/2021 Orders Only [facility] Testing Site - [facility]. 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 Class: Internal Referral Ordering User: Mee Winkler MA Auth Provider: WOLFGANG OBANDO Provider: Wolfgang Obando MD Diagnosis: Preop testing Department: [facility] Instruct: ?? Comment: ?? Order Specific Questions Question Answer Comment Testing types: Pre-procedure ?? Date of Px/chemo/treatment/placement/transfer 06/07/2021 ?? Testing site patient will be sent to: [facility] ?? Date testing requested: 06/07/2021 ?? Testing: COVID-19 RNA ?? Is this the first COVID-19 test for this patient? Unknown ?? Does the patient currently work in a healthcare facility with direct patient contact? Unknown ?? Is the patient a resident of a congregate care or living setting? Unknown ?? ? No ?? Please select the performing region: [facility] NCE SPECIALIST documented in this encounter Miscellaneous Notes * Addendum Note - Lori Hoover - 06/07/2021 9:26 AM CSTAddended by: LORI HOOVER on: 06/07/2021 06:21 PM Modules accepted: Orders NCE SPECIALIST documented in this encounter Plan of Treatment Not on file documented as of this encounter Results * COVID-19 Coronavirus RNA Nasopharyngeal (06/07/2021 11:11 AM FINANCE SPECIALIST) COVID-19 RNA Not Detected [facility] Comment: Interpretive Data Synonyms for this test include: PCR and NAAT . ??Testing performed by the [facility] Molecular Infectious Disease Laboratory. The 2019-Novel Coronavirus Assay (COVID-19) Real Time RT-PCR assay [...] May 22, 2020. First COVID-19 test? Unknown [facility] Employeed in healthcare? Unknown [facility]SE[facility] GARCIA status? No [facility]IA Group care resident? No [facility]ARC[facility] Hospitalized? Unknown ISELA GARCIA Is patient in ICU? Unknown [facility]SELA GARCIA Symptomatic as defined by CDC? No [facility] Nasopharyngeal 06/07/2021 11 :11 AM FINANCE SPECIALIST 06/07/2021 7:00 PM FINANCE SPECIALIST Narrative [facility]SELA G[facility] - 06/07/2021 11:58 PM FINANCE SPECIALIST What is the reason for testing?->Screening prior to scheduled??procedure or surgery??(Batched) Wolfgang Obando MD LAB MICROBIOLOGY - GENERAL ORDERABLES Final Result Performing Organization Address City/State/[facility] Co de Phone Number [facility]ENTER[facility] Department [place] [address] documented in this encounter Visit Diagnoses Diagnosis Pre-operative laboratory examination- Primary Pre-procedural laboratory examination Pre-operative laboratory examination Pre-procedural laboratory examination documented in this encounter Care Teams Yeast Cake Cutter Relationship Specialty Start Date End Date Wolfgang Smallwood MD [address] [place] [address] PCP - General 04/17/20 02/14/23 Wolfgang Smallwood MD [address] [place] [address] Internal Medicine 04/17/20 Jacek Laura MD [address] [place] [phone] Referring Physician Hematology 06/02/21 06/28/22 documented as of this encounter
--- OUTSIDE RECORDS SUMMARY | 2024-04-21 12:19 | XMS_ITS | Encounter Summary ---
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 Repeat pap in 3 years, or sooner if desired. ROPE SALES REPRESENTATIVE documented in this encounter Plan of Treatment Not on file documented as of this encounter Procedures Procedure Name Priority Date/Time Associated Diagnosis Comments PAP WITH REFLEX TO HIGH RISK HPV Routine 04/16/2020 9:07 AM WIRE ROPE SALES REPRESENTATIVE documented in this encounter Results * Pap with reflex to High Risk HPV (04/16/2020 9:07 AM WIRE ROPE SALES REPRESENTATIVE) 04/16/2020 9:07 AM WIRE ROPE SALES REPRESENTATIVE 04/16/2020 9:07 AM WIRE ROPE SALES REPRESENTATIVE Narrative [facility] - 04/21/2020 10:13 AM WIRE ROPE SALES REPRESENTATIVE [facility] Department of Pathology [address] [place] [id number] Final Report with Addendum Patient Name: ??ANITHA HERMOSILLO Address: ??[address],, ?? [place] [address] Gender: ??F : ??1960 (Age: 60) Service: ??Laboratory Location: ??Lab Hospital #: ??[id number] Patient Type: ?? Ref Lab Taken: ??04/16/2020 Received: ??04/16/2020 Accessioned:: ??04/17/2020 Reported: ??04/21/2020 Physician(s): Almita Obando Diagnosis: Source of Specimen: ? Imaged Thinprep Pap Test plus HPV - Delivery Driver Cytologic Material Specimen Adequacy: ?- Specimen satisfactory [...] Imaged Thinprep Pap Test plus HPV - Delivery Driver Cytologic Material Clinical History: Last Menstrual Period: [...] [facility] an ongoing quality technician program and in compliance with [...] characteristics determined by the Surgical Pathology Department [facility]. ??It has not been cleared or approved by the U. S. Food and Drug Administration. Almita Obando MD LAB CYTOLOGY ORDERABLES Final Result [facility] [address] [place] [address] documented in this encounter Visit Diagnoses Diagnosis Screening for malignant neoplasm of cervix Screening for malignant neoplasm of the cervix documented in this encounter Care Teams Textile Worker Relationship Specialty Start Date End Date Almita Smallwood MD [address] [place] [id number] PCP - General Internal Medicine 02/14/20 04/16/20 documented as of this encounter
--- OUTSIDE RECORDS SUMMARY | 2024-04-21 12:19 | XMS_ITS | Encounter Summary ---
Author Organization [facility] Healthcare Address [address] [place] [address] Care Team Providers Care Mathematical Technician Name Role Phone Almita Smallwood MD Primary Care Provider + Reason for Visit * Diagnostic Imaging (Routine) - Closed Specialty Diagnoses / Procedures Referred By Contac t Referred To Contact Procedures Breast Imaging Screening Outside Reference Linda Buckley MD PhD Phone: tel: fax: Referral ID Status Reason Start Date Expiration Date Visits Re quested Visits Authorized [id number] Closed 06/03/2021 07/03/2022 1 1 Encounter Details Date Type Department Care Team (Latest Contact Info) Description 02/21/2020 - 02/21/2020 11:59 PM GASKET WINDER Hospital Encounter [facility]) [address] [place] [phone] Discharge Disposition: Discharge to home or self care Social History Tobacco Use Types Packs/Day Years Used Date Smoking Tobacco: Never Assessed Comments Unknown Sex and Gender Information Value Date Recorded Sex Assigned at Not on file Legal Sex Female 3:38 AM GASKET WINDER Gender Identity Not on file Sexual Orientation Not on file documented as of this encounter Medications at Time of Discharge albuterol HFA (PROVENTIL HFA,VENTOLIN HFA,PROAIR HFA) 90 mcg/actuation inhaler Inhale 2 puffs every 4 hours as needed 02/15/2020 06/29/2022 multivitamin liquid Take 6 each by mouth daily 06/04/2019 04/06/2022 documented as of this encounter Discharge Disposition Disposition Code Departure Means Destination Discharge to home or self care documented in this encounter Plan of Treatment Not on file documented as of this encounter Procedures Procedure Name Priority Date/Time Associated Diagnosis Comments BREAST IMAGING MG SCREENING OUTSIDE REFERENCE Routine 02/21/2020 12:00 AM GASKET WINDER documented in this encounter Results * Breast Imaging Screening Outside Reference (02/21/2020 12:00 AM GASKET WINDER) Impressions [facility] - 06/03/2021 9:37 AM GASKET WINDER These images are for Reference purposes only and have not been reviewed by [facility]. ??There will be no report generated by a [facility] Radiologist. Narrative [facility] - 06/03/2021 9:37 AM GASKET WINDER EXAMINATION: ??Images For Reference Purposes Only Linda Buckley MD PhD IMG MAMMO PROCEDURES Final Result [facility] documented in this encounter Visit Diagnoses Not on filedocumented in this encounter Care Teams Mathematical Technician Relationship Specialty Start Date End Date Almita Smallwood MD [address] [place] [address] PCP - General Internal Medicine 02/14/20 04/16/20 documented as of this encounter
--- OUTSIDE RECORDS SUMMARY | 2024-04-21 12:19 | XMS_ITS | Encounter Summary ---
Author Organization [facility] Healthcare Address [address] [place] [address] Care Team Providers Care Phone Triage Specialist Name Role Phone Unavailable Primary Care Provider Unavailabl e Reason for Visit * Diagnostic Imaging (Routine) - Closed Specialty Diagnoses / Procedures Referred By Tati campos Referred To Contact Procedures Breast Imaging Diagnostic Outside Reference Linda Buckley MD PhD Phone: tel: fax: Referral ID Status Reason Start Date Expiration Date Visits Re quested Visits Authorized [id number] Closed 07/02/2021 08/01/2022 1 1 Encounter Details Date Type Department Care Team (Late st Contact Info) Description 06/21/2018 Hospital Encounter [facility]) [address] [place] [address] Social History Tobacco Use Types Packs/Day Years [...] file Legal Sex Female 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 Gender Identity Not on file Sexual Orientation Not on file 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[employer]) Not on file Not on file Not on file documented as of this encounter Plan of Treatment Not on file documented as of this encounter Procedures Procedure Name Priority Date/Time Associated Diagnosis Comments BREAST IMAGING MG DIAGNOSTIC OUTSIDE REFERENCE Routine 06/21/2018 12:00 AM SUPERVISOR ELECTRONICS TESTING documented in this encounter Results * Breast Imaging Diagnostic Outside Reference (06/21/2018 12:00 AM SUPERVISOR ELECTRONICS TESTING) Impressions [facility] - 07/02/2021 3:03 PM CDT These images are for Reference purposes only and have not been reviewed by [facility]. ??There will be no report generated by a [facility] Radiologist. Narrative [facility] - 07/02/2021 3:03 PM CDT EXAMINATION: ??Images For Reference Purposes Only us Linda Buckley MD PhD IMG MAMMO PROCEDURES Final Result [facility] documented in this encounter Visit Diagnoses Not on filedocumented in this encounter
--- OUTSIDE RECORDS SUMMARY | 2024-04-21 12:19 | XMS_ITS | Encounter Summary ---
Author Organization [facility] Healthcare Address [address] [place] [address] Care Team Providers Care Assembler Unit Name Role Phone Unavailable Primary Care Provider Unavailabl e Reason for Visit * Diagnostic Imaging (Routine) - Closed Specialty Diagnoses / Procedures Referred By Tati campos Referred To Contact Procedures Breast Imaging Screening Outside Reference Linda Buckley MD PhD Phone: tel: fax: Referral ID Status Reason Start Date Expiration Date Visits Re quested Visits Authorized [id number] Closed 07/02/2021 08/01/2022 1 1 Encounter Details Date Type Department Care Team (Late st Contact Info) Description 10/21/2017 Hospital Encounter [facility] [address] [place] [address] Social History Tobacco Use Types Packs/Day Years [...] on file Legal Sex Female 3:38 AM WHIPPER BEATER Gender Identity Not on file Sexual Orientation Not on file 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 ??There will be no report generated by a [facility] Radiologist. Narrative [facility] - 07/02/2021 3:00 PM CDT EXAMINATION: ??Images For Reference Purposes Only us Linda Buckley MD PhD IMG MAMMO PROCEDURES Final Result [facility] documented in this encounter Visit Diagnoses Not on filedocumented in this encounter
--- OUTSIDE RECORDS SUMMARY | 2024-04-21 12:19 | XMS_ITS | Encounter Summary ---
Author Organization [facility] Healthcare Address [address] [place] [address] Care Team Providers Care Manager Pest Name Role Phone Almita Smallwood MD Primary Care Provider + Reason for Visit * Diagnostic Imaging (Routine) - Closed Specialty Diagnoses / Procedures Referred By Contac t Referred To Contact Procedures Breast Imaging Screening Outside Reference Linda uBckley MD PhD [address] [phone] [place] [address] Phone: tel: fax: Referral ID Status Reason Start Date Expiration Date Visits Re quested Visits Authorized [id number] Closed 08/03/2021 09/02/2022 1 1 Encounter Details Date Type Department Care Team (Late st Contact Info) Description 02/21/2020 Hospital Encounter [facility] [address] [place] [id number] Social History Tobacco Use Types Packs/Day Years [...] on file Legal Sex Female 3:38 AM CANNING MACHINE OPERATOR Gender Identity Not on file Sexual Orientation Not on file 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 ??There will be no report generated by a [facility] Radiologist. Narrative [facility] - 08/03/2021 10:35 AM CDT EXAMINATION: ??Images For Reference Purposes Only Linda Buckley MD PhD IMG MAMMO PROCEDURES Final Result [facility] documented in this encounter Visit Diagnoses Not on filedocumented in this encounter Care Teams Manager Pest Relationship Specialty Start Date End Date Almita Smallwood MD [address] [place] [address] PCP - General Internal Medicine 02/14/20 04/16/20 documented as of this encounter
--- OUTSIDE RECORDS SUMMARY | 2024-04-21 12:19 | XMS_ITS | Encounter Summary ---
Author Organization [facility] Medical Group Address [address] [place] [address] Care Team Providers Care Breaster Name Role Phone Almita Smallwood MD Primary Care Provider + Reason for Referral * Diagnostic Imaging (Routine) - Closed Specialty Diagnoses / Procedures Referred By Contac t Referred To Contact Diagnoses Care related to current tamoxifen use Procedures [place] [address] [facility] [address] [place] [address] Phone: tel: fax: [facility] Referral ID Status Reason Start Date Expiration Date Visits Re quested Visits Authorized [id number] Closed 04/16/2020 05/16/2021 1 1 TRANSPORTATION TABELER Reason for Visit * Reason Comments Well Women Visit pt here for wwe Encounter Details Date Type Department Care Team (Late st Contact Info) Description 04/16/2020 10:00 AM RAIL TRANSPORTATION TABELER Office Visit [facility] Medical [facility] Gynecology at [address] [place] [phone] [place] [address] [address] [facility] [address] [place] [address] Well woman exam with routine gynecological exam (Primary Dx); Screening for malignant neoplasm of cervix; 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 breast; Care related to current tamoxifen use Social History Tobacco Use Types Packs/Day Years [...] on file Legal Sex Female 3:38 AM RAIL TRANSPORTATION TABELER Gender Identity Not on file Sexual Orientation Not on file 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 Not on file N ot on file Not on file documented as of this encounter Last Filed Vital Signs Vital Sign Reading Time Taken Comments Blood Pressure 110/70 04/16/2020 10:32 AM RAIL TRANSPORTATION TABELER Pulse - - Temperature - - Respiratory Rate - - Oxygen Saturation - - Inhaled Oxygen Concentration - - Weight 72.6 kg (160 lb) 04/16/2020 10:32 AM RAIL TRANSPORTATION TABELER Height 167.6 cm (5' 6 ) 04/16/2020 10:32 AM RAIL TRANSPORTATION TABELER Body Mass Index 25.82 04/16/2020 10:32 AM RAIL TRANSPORTATION TABELER documented in this encounter Patient Instructions * Patient Instructions* Almita Obando MD - 04/16/2020 10:00 AM RAIL TRANSPORTATION TABELER Please activate your Broadlinkhart ([phone]) so you can check for the results of your Pap smear in 7-10 days. Please call [phone] to schedule a pelvic ultrasound here at [facility]. You can callback for results a couple days later at [phone]. TRANSPORTATION TABELER documented in this encounter Progress Notes * Almita Obando MD - 04/16/2020 10:00 AM CST 04/16/2020 Chief Complaint Patient presents with ??? Well Women Visit pt here for wwe HPI: Lisa Hermosillo is a 60 y.o. (1960) Single white female. Postmenopausal since 2014. S/P Stage 0 (DCIS, ER+) left breast CA, 11/2016 lumpectomy. No XRT or chemorx, only Tamoxifen. She is here for her new patient well woman exam. Says she was on HRT after menopause & that the HRT caused her breast cancer. Last MMG was in 02/2020. Last saw Jose, Dr. Cain at [facility] on 02/25/20. No vaginitis symptoms. No bleeding since menopause. Discussed the need for pelvic ultrasound to check uterine lining thickness as tamoxifen is associated with an increased risk for uterine cancer. Vasomotor symptoms are infrequent at this time. Menstrual History: Menarche Age: 15 years No LMP recorded (lmp unknown). Patient is postmenopausal. Period Pattern: None Sexual History: Sexual History Gender of sexual [...] Medical History: Diagnosis Date ??? Breast cancer ([facility]) Past Surgical History: Procedure Laterality Date ??? BREAST LUMPECTOMY Left 11/2016 For Stage 0 breast CA at [facility] in [place], [place]. No chemorx or XRT, only Tamoxifen. ??? TUBAL LIGATION Social History Socioeconomic History ??? Marital status: Spouse name: Not on file ??? Number of children: 2 ??? Years of education: Not on file ??? Highest education level: Not on file Occupational History ??? 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 Social Needs ??? Financial resource strain: Not on file ??? Food insecurity Worry: Not on file Inability: Not on file ??? Transportation needs Medical: Not on file Non-medical: Not on file Tobacco Use ??? Smoking status: Former Smoker Quit date: 2005 Years since quittin.0 ??? Smokeless tobacco: Never Used Substance and Sexual Activity ??? Alcohol use: Yes Comment: rarely ??? Drug use: Never ??? Sexual activity: Not Currently Lifestyle ??? Physical activity Days per week: Not on file Minutes per session: Not on file ??? Stress: Not on file Relationships ??? Social connections Talks on phone: Not on file Gets together: Not on file Attends protestant service: Not on file Active member of club or organization: Not on file Attends meetings of clubs or organizations: Not on file Relationship status: Not on file ??? Intimate partner violence Fear of current or ex partner: Not on file Emotionally abused: Not on file Physically abused: Not on file Forced sexual activity: Not on file Other Topics Concern ??? Not on file Social History Narrative ??? Not on file Review of Systems Constitutional: [...] for dysphoric mood and sleep disturbance. Vitals: 04/16/20 1032 BP: 110/70 BP Location: Left arm Patient Position: Sitting Weight: 72.6 kg (160 lb) Height: 167.6 cm (5' 6 ) Body mass index is 25.82 kg/m??. Physical Exam Constitutional: General: She is not in acute distress. Appearance: She is well-developed. She is not ill-appearing. HENT: Head: Normocephalic and atraumatic. Eyes: Conjunctiva/sclera: Conjunctivae normal. Neck: Musculoskeletal: Normal range of motion and neck supple. Thyroid: No thyromegaly. Cardiovascular: Rate and Rhythm: Regular rhythm. Heart sounds: Normal heart sounds. Pulmonary: Effort: Pulmonary effort is normal. Breath sounds: Normal breath sounds. Chest: Breasts: Right: No mass, nipple discharge, skin change or tenderness. Left: No mass, nipple discharge, skin change or tenderness. Abdominal: General: Bowel sounds are normal. Palpations: [...] display tenderness. Cervix: Normal exam. Uterus is retroverted. Uterus is not tender. Musculoskeletal: Normal range of motion. Lymphadenopathy: Lower Body: No right inguinal adenopathy. No left inguinal adenopathy. Skin: General: Skin is warm and dry. Neurological: Mental Status: She is alert and oriented to person, place, and time. Psychiatric: Mood and Affect: Mood normal. Behavior: Behavior normal. Last PAP: 2016?, no abnormal pap. Breast Cancer Screenin01/2020 Colon Cancer Screenin03/2020, normal. Repeat 5 yrs (+FHX colon CA, mom & sister) Concurrent EGD bx (-). RX Omeprazole. Done by Dr. Litzy Mena Diagnoses and all orders for this visit: Well woman exam with routine gynecological exam (Primary) Comments: Pap done. Current on mammogram and colonoscopy. Normal breast and pelvic exam. Screening for malignant neoplasm of cervix Comments: Pap done. Orders: - Pap and High Risk HPV, reflex to Genotyping; Future 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 breast Comments: On tamoxifen. Current on mammogram. Current on follow-up with [facility]. Care related to current tamoxifen use Comments: Pelvic ultrasound ordered to assess endometrial thickness. Orders: - US Pelvis W Endovaginal; Future Body mass index is 25.82 kg/m??. Almita Obando MD TRANSPORTATION TABELER documented in this encounter Plan of Treatment Not on file documented as of this encounter Results * US Pelvis W Endovaginal (04/24/2020 9:19 AM RAIL TRANSPORTATION TABELER) Anatomical Region Laterality Modality Pelvis N/A Ultrasound 04/24/2020 10:0 4 AM RAIL TRANSPORTATION TABELER Impressions 04/24/2020 10:07 AM RAIL TRANSPORTATION TABELER The midline endometrial echo complex ranges in thickness from 6 to 20 mm. ??There is increased blood flow noted in the endometrium on color Doppler imaging. Electronically signed by: Gilmar Aaron M.D. Narrative 04/24/2020 10:07 AM RAIL TRANSPORTATION TABELER EXAMINATION: US PELVIS W ENDOVAGINAL HISTORY: The patient is a 60-year-old female who has a history of breast carcinoma and ??is on tamoxifen. TECHNIQUE: Transabdominal and transvaginal pelvic sonogram was performed along with color Doppler imaging. FINDINGS: The uterus is 7.4 x 5.5 x [...] No free fluid seen in the cul-de-sac. Procedure Note Gilmar Aaron MD - 04/24/2020 EXAMINATION: US PELVIS W ENDOVAGINAL HISTORY: The patient is a 60-year-old female who has a history of breast carcinoma and is on tamoxifen. TECHNIQUE: Transabdominal and transvaginal pelvic sonogram was performed along with color Doppler imaging. FINDINGS: The uterus is 7.4 x 5.5 x [...] No free fluid seen in the cul-de-sac. IMPRESSION: The midline endometrial echo complex ranges in thickness from 6 to 20 mm. There is increased blood flow noted in the endometrium on color Doppler imaging. Electronically signed by: Gilmar Aaron M.D. Result [facility] Almita Obando MD [facility] Final Result documented in this encounter Visit Diagnoses Diagnosis Well woman exam with routine gynecological exam- Primary Routine gynecological examination Screening for malignant neoplasm of cervix Screening for malignant neoplasm of the cervix 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 breast Care related to current tamoxifen use Prophylactic use of selective estrogen receptor modulators (SERMs) Care related to current tamoxifen use Prophylactic use of selective estrogen receptor modulators (SERMs) documented in this encounter Historical Medications * This list may reflect changes made after this encounter. levocetirizine (XYZAL) 5 mg tablet Take 5 mg by mouth nightly 02/22/2020 collagen, hydrolysate, bovine, (COLLAGEN, HYDR, BOVINE,, BULK, MISC) by Misc.(Non-Jersey g; Combo Route) route. tamoxifen (NOLVADEX) 20 mg tablet Take 20 mg by mouth daily 02/22/2020 06/11/2021 omeprazole (PriLOSEC) 20 mg capsule TAKE 1 CAPSULE BY MOUTH ONCE DAILY FOR 30 DAYS 04/10/2020 06/11/2021 albuterol HFA (PROVENTIL HFA,VENTOLIN HFA,PROAIR HFA) 90 mcg/actuation inhaler Inhale 2 puffs every 4 hours as needed 02/15/2020 06/29/2022 multivitamin liquid Take 6 each by mouth daily 06/04/2019 04/06/2022 added in this encounter Orders Lab Orders Without Results Count Last Ordered D ate First Ordered Date PAP AND HIGH RISK HPV, REFLE X TO GENOTYPING 1 04/16/2020 documented in this encounter Care Teams Breaster Relationship Specialty Start Date End Date Almita Smallwood MD [address] [place] [address] PCP - General Internal Medicine 02/14/20 04/16/20 documented as of this encounter
--- OUTSIDE RECORDS SUMMARY | 2024-04-21 12:19 | XMS_ITS | Encounter Summary ---
Author Organization [facility] Healthcare Address [address] [place] [address] Care Team Providers Care Catalogue Compiler Name Role Phone Unavailable Primary Care Provider Unavailabl e Reason for Visit * Diagnostic Imaging (Routine) - Closed Specialty Diagnoses / Procedures Referred By Tati campos Referred To Contact Procedures Breast Imaging Diagnostic Outside Reference Linda Buckley MD PhD Phone: tel: fax: Referral ID Status Reason Start Date Expiration Date Visits Re quested Visits Authorized [id number] Closed 06/03/2021 07/03/2022 1 1 Encounter Details Date Type Department Care Team (Latest Contact Info) Description 05/26/2017 - 05/26/2017 11:59 PM MICROBIOLOGY LAB ANALYST Hospital Encounter [facility] [address] [place] [address] [phone] Discharge Disposition: Discharge to home or self care Social History Tobacco Use Types Packs/Day Years Used Date Smoking Tobacco: Never Assessed Comments Unknown Sex and Gender Information Value Date Recorded Sex Assigned at Not on file Legal Sex Female 3:38 AM MICROBIOLOGY LAB ANALYST Gender Identity Not on file Sexual Orientation Not on file documented as of this encounter Discharge Disposition Disposition Code Departure Means Destination Discharge to home or self care documented in this encounter Plan of Treatment Not on file documented as of this encounter Procedures Procedure Name Priority Date/Time Associated Diagnosis Comments BREAST IMAGING MG DIAGNOSTIC OUTSIDE REFERENCE Routine 05/26/2017 12:00 AM MICROBIOLOGY LAB ANALYST documented in this encounter Results * Breast Imaging Diagnostic Outside Reference (05/26/2017 12:00 AM MICROBIOLOGY LAB ANALYST) Impressions [facility] - 06/03/2021 9:38 AM MICROBIOLOGY LAB ANALYST These images are for Reference purposes only and have not been reviewed by [facility]iology. ??There will be no report generated by a [facility] Radiologist. Narrative [facility] - 06/03/2021 9:38 AM MICROBIOLOGY LAB ANALYST EXAMINATION: ??Images For Reference Purposes Only us Linda Buckley MD PhD IMG MAMMO PROCEDURES Final Result [facility] documented in this encounter Visit Diagnoses Not on filedocumented in this encounter
--- OUTSIDE RECORDS SUMMARY | 2024-04-21 12:19 | XMS_ITS | Encounter Summary ---
Author Organization [facility] Healthcare Address [address] [place] [address] Care Team Providers Care Mold Sheet Cleaner Name Role Phone Unknown, Lorelei Primary Care Provider Unavail able Almita Smallwood MD Primary Care Provider + Encounter Details Date Type Department Care Team ([facility] st Contact Info) Description [address] [phone] Estrella Cedeño, RN Social History Tobacco Use Types Packs/Day Years Used Date Smoking Tobacco: Never Assessed Comments Unknown Sex and Gender Information Value Date Recorded Sex Assigned at Not on file Legal Sex Female 3:38 AM HANDLE 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 Patient was contacted and left a voicemail to call back [facility] at their convenience. From: [facility] Website <[email or web address]> Sent: Monday, February 10, 2020 4:06 PM To: Estrella Cedeño <[email or web address]> Subject: New submission from Request an Appointment [SECURE] What best describes you? I am a Patient/New Patient Personal Information Name Lisa Hermosillo Date of 1960 Gender Female Contact Information Email Insurance Yes Primary Insurance Liliya BC/BS Blue Access Choice Clinical Information Requested Physician Adryan Kearns MD Is this a new diagnosis? No What tests have been performed? (Select all that apply) ??? Biopsy/Surgery ??? Mammogram/Xray ??? CT scan/MRI/Ultrasound/PET scan ??? Blood work What kinds of treatment have you had? (Select all that apply) ??? Surgery Have you ever been a patient at the [facility] or [facility]? No Additional Information (Optional) I had breast cancer in 2017. Have not had a checkup since 2019. 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 Off on every and Tuesday. adan null documented in this encounter Plan of Treatment Not on file documented as of this encounter Visit Diagnoses Not on filedocumented in this encounter Care Teams Mold Sheet Cleaner Relationship Specialty Start Date End Date Unknown, Notinfile PCP - General 10/17/18 02/13/20 Almita Smallwood MD [address] [place] [address] PCP - General Internal Medicine 02/14/20 04/16/20 documented as of this encounter
--- OUTSIDE RECORDS SUMMARY | 2024-04-21 12:19 | XMS_ITS | Encounter Summary ---
Author Organization [facility] Healthcare Address [address] [place] [address] Care Team Providers Care Animal Services Officer Name Role Phone Unavailable Primary Care Provider Unavailabl e Reason for Visit * Diagnostic Imaging (Routine) - Closed Specialty Diagnoses / Procedures Referred By Tati campos Referred To Contact Procedures Breast Imaging Diagnostic Outside Reference Linda Buckley MD PhD Phone: tel: fax: Referral ID Status Reason Start Date Expiration Date Visits Re quested Visits Authorized [id number] Closed 07/02/2021 08/01/2022 1 1 Encounter Details Date Type Department Care Team (Late st Contact Info) Description 11/22/[address] 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 ??There will be no report generated by a [facility] Radiologist. Narrative [facility] - 07/02/2021 3:01 PM CDT EXAMINATION: ??Images For Reference Purposes Only us Linda Buckley MD PhD IMG MAMMO PROCEDURES Final Result [facility] documented in this encounter Visit Diagnoses Not on filedocumented in this encounter
--- OUTSIDE RECORDS SUMMARY | 2024-04-21 12:19 | XMS_ITS | Encounter Summary ---
Author Organization [facility] Healthcare Address [address] [place] [address] Care Team Providers Care Desktop Specialist Name Role Phone Unavailable Primary Care Provider Unavailabl e Reason for Visit * Diagnostic Imaging (Routine) - Closed Specialty Diagnoses / Procedures Referred By Tati campos Referred To Contact Procedures Breast Imaging Diagnostic Outside Reference Linda Buckley MD PhD Phone: tel: fax: Referral ID Status Reason Start Date Expiration Date Visits Re quested Visits Authorized [id number] Closed 07/02/2021 08/01/2022 1 1 Encounter Details Date Type Department Care Team (Late st Contact Info) Description 10/27/2016 Hospital Encounter [facility]iology [facility] [address] [place] [address] Social History Tobacco Use Types Packs/Day Years [...] on file 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 Gender Identity Not on file Sexual Orientation Not on file 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 ??There will be no report generated by a [facility] Radiologist. Narrative [facility] - 07/02/2021 3:00 PM CDT EXAMINATION: ??Images For Reference Purposes Only us Linda Buckley MD PhD IMG MAMMO PROCEDURES Final Result [facility] documented in this encounter Visit Diagnoses Not on filedocumented in this encounter
--- OUTSIDE RECORDS SUMMARY | 2024-04-21 12:19 | XMS_ITS | Encounter Summary ---
Author Organization [facility] Address [address] [place] [address] Phone Care Team Providers Care Fbi Sharpshooter Name Role Phone Almita Smallwood MD Primary Care Provider + Reason for Visit * Reason Onset Date Comments Scheduling Appointments 02/28/2020 pt. did not want to schedule at this time, will call back when she is ready. Encounter Details Date Type Department Care Team (Late st Contact Info) Description 02/28/2020 Telephone [facility] [address] [facility] 7th [place] [address] [place] [phone] No, Physician Scheduling Appointments (pt. did not want to schedule at this time, will call back when she is ready. 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 did not want to schedule at this time, will call back when she is ready. S AND MARKETING REPRESENTATIVE documented in this encounter Plan of Treatment Not on file documented as of this encounter Visit Diagnoses Not on filedocumented in this encounter Care Teams Fbi Sharpshooter Relationship Specialty Start Date End Date Almita Smallwood MD [address] [place] [address] PCP - General Internal Medicine 02/14/20 04/16/20 documented as of this encounter
--- OUTSIDE RECORDS SUMMARY | 2024-04-21 12:19 | XMS_ITS | Encounter Summary ---
Author Organization [facility] Healthcare Address [address] [place] [address] Care Team Providers Care District Sales Coordinator Name Role Phone Unavailable Primary Care Provider Unavailabl e Reason for Visit * Diagnostic Imaging (Routine) - Closed Specialty Diagnoses / Procedures Referred By Tati t Referred To Contact Procedures Breast Imaging Diagnostic Outside Reference Linda Buckley MD PhD Phone: tel: fax: Referral ID Status Reason Start Date Expiration Date Visits Re quested Visits Authorized [id number] Closed 07/02/2021 08/01/2022 1 1 Encounter Details Date Type Department Care Team (Late st Contact Info) Description 11/22/2016 12:05 AM CDT Hospital Encounter [facility]iology [facility] [address] [place] [phone] Social History Tobacco Use Types Packs/Day Years [...] on file 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 Gender Identity Not on file Sexual Orientation Not on file 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 ??There will be no report generated by a [facility] Radiologist. Narrative [facility] - 07/02/2021 3:09 PM CDT EXAMINATION: ??Images For Reference Purposes Only us Linda Buckley MD PhD IMG MAMMO PROCEDURES Final Result [facility] documented in this encounter Visit Diagnoses Not on filedocumented in this encounter
--- OUTSIDE RECORDS SUMMARY | 2024-04-21 12:19 | XMS_ITS | Encounter Summary ---
Author Organization [facility] Healthcare Address [address] [place] [address] Care Team Providers Care Nurse Orthopaedic Name Role Phone Unavailable Primary Care Provider Unavailabl e Reason for Visit * Diagnostic Imaging (Routine) - Closed Specialty Diagnoses / Procedures Referred By Tati campos Referred To Contact Procedures Breast Imaging Diagnostic Outside Reference Linda Buckley MD PhD Phone: tel: fax: Referral ID Status Reason Start Date Expiration Date Visits Re quested Visits Authorized [id number] Closed 07/02/2021 08/01/2022 1 1 Encounter Details Date Type Department Care Team (Late st Contact Info) Description 10/05/2016 Hospital Encounter [facility] [address] [place] [address] Social History Tobacco Use Types Packs/Day Years [...] on file 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 Gender Identity Not on file Sexual Orientation Not on file 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 ??There will be no report generated by a [facility] Radiologist. Narrative RAD[facility] - 07/02/2021 3:02 PM CDT EXAMINATION: ??Images For Reference Purposes Only us Linda Buckley MD PhD IMG MAMMO PROCEDURES Final Result [facility] documented in this encounter Visit Diagnoses Not on filedocumented in this encounter
--- OUTSIDE RECORDS SUMMARY | 2024-04-21 12:19 | XMS_ITS | Encounter Summary ---
Author Organization [facility] Healthcare Address [address] [place] [address] Care Team Providers Care Compliance Attorney Name Role Phone Almita Smallwood MD Primary Care Provider + Almita Smallwood MD Unavailable [phone] Reason for Referral * Diagnostic Imaging (Routine) - Closed Specialty Diagnoses / Procedures Referred By Tati campos Referred To Contact Diagnoses Care related to current tamoxifen use Procedures US [place] [address] [place] [address] Phone: tel: fax: [facility] Referral ID Status Reason Start Date Expiration Date Visits Re quested Visits Authorized [id number] Closed 04/16/2020 05/16/2021 1 1 [place] SALESMAN Reason for Visit * Diagnostic Imaging (Routine) - Closed Specialty Diagnoses / Procedures Referred By Tati campos Referred To Contact Diagnoses Care related to current tamoxifen use Procedures US [place] [address] [place] [phone] Phone: tel: fax: [facility] Referral ID Status Reason Start Date Expiration Date Visits Re quested Visits Authorized [id number] Closed 04/16/2020 05/16/2021 1 1 Encounter Details Date Type Department Care Team (Late st Contact Info) Description 04/24/2020 8:00 AM RETAIL SALESMAN - 04/24/2020 11:59 PM RETAIL SALESMAN Hospital Encounter [facility] [address] [place] [phone] [place] [address] 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 Not on file N ot on file [...] or self care documented in this encounter Miscellaneous Notes * Result Encounter Note - Almita Obando MD - 04/24/2020 11:59 PM CST MyChart note: The pelvic ultrasound shows a normal uterus and ovaries, but the uterine lining (midline endometrial echo complex) is thickened. As tamoxifen can cause pre-cancer and cancer changes of the uterine lining, you will need to return to the office for a biopsy of the uterine lining. This is called an endometrial biopsy. My registered medical transcriptionist, Mee Winkler, will be calling you to schedule this. Please take either 2 Aleve or 4 Advil with a snack 1-2 hrs before your appointment. CC: Mee Winkler MA [place] SALESMAN documented in this encounter Plan of Treatment Not on file documented as of this encounter Procedures Procedure Name Priority Date/Time Associated Diagnosis Comments US PELVIS W ENDOVAGINAL Schedule Routine, Read Routine (OP Routine) 04/24/2020 9:19 AM RETAIL SALESMAN Care related to current tamoxifen use documented in this encounter Results * US Pelvis W Endovaginal (04/24/2020 9:19 AM RETAIL SALESMAN) Anatomical Region Laterality Modality Pelvis N/A Ultrasound 04/24/2020 10:0 4 AM RETAIL SALESMAN Impressions 04/24/2020 10:07 AM RETAIL SALESMAN The midline endometrial echo complex ranges in thickness from 6 to 20 mm. ??There is increased blood flow noted in the endometrium on color Doppler imaging. Electronically signed by: Gilmar Aaron M.D. Narrative 04/24/2020 10:07 AM RETAIL SALESMAN EXAMINATION: US PELVIS W ENDOVAGINAL HISTORY: The [...] imaging. Electronically signed by: Gilmar Aaron M.D. Almita Obando MD [facility] N[facility]RAT KHALIL Final Result documented in this encounter Visit Diagnoses Diagnosis Care related to current tamoxifen use Prophylactic use of selective estrogen receptor modulators (SERMs) documented in this encounter Care Teams Compliance Attorney Relationship Specialty Start Date End Date Almita Smallwood MD [address] [place] [address] PCP - General 04/17/20 02/14/23 Almita Smallwood MD [address] [place] [address] Internal Medicine 04/17/20 documented as of this encounter
--- OUTSIDE RECORDS SUMMARY | 2024-04-21 12:19 | XMS_ITS | Encounter Summary ---
Author Organization [facility] Healthcare Address [address] [place] [address] Care Team Providers Care Dance Hall Host/Hostess Name Role Phone Unavailable Primary Care Provider Unavailabl e Reason for Visit * Diagnostic Imaging (Routine) - Closed Specialty Diagnoses / Procedures Referred By Tati t Referred To Contact Procedures Breast Imaging Diagnostic Outside Reference Linda Buckley MD PhD Phone: tel: fax: Referral ID Status Reason Start Date Expiration Date Visits Re quested Visits Authorized [id number] Closed 07/02/2021 08/01/2022 1 1 Encounter Details Date Type Department Care Team (Late st Contact Info) Description 10/27/2016 12:05 AM CDT Hospital Encounter 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 ??There will be no report generated by a [facility] Radiologist. Narrative [facility] - 07/02/2021 3:01 PM CDT EXAMINATION: ??Images For Reference Purposes Only us Linda Buckley MD PhD IMG MAMMO PROCEDURES Final Result [facility] documented in this encounter Visit Diagnoses Not on filedocumented in this encounter
--- OUTSIDE RECORDS SUMMARY | 2024-04-21 12:19 | XMS_ITS | Encounter Summary ---
Author Organization [facility] Healthcare Address [address] [place] [address] Care Team Providers Care Center Hole Reamer Name Role Phone Unavailable Primary Care Provider Unavailabl e Reason for Visit * Diagnostic Imaging (Routine) - Closed Specialty Diagnoses / Procedures Referred By Tati t Referred To Contact Procedures Breast Imaging Screening Outside Reference Linda Buckley MD PhD Phone: tel: fax: Referral ID Status Reason Start Date Expiration Date Visits Re quested Visits Authorized [id number] Closed 07/02/2021 08/01/2022 1 1 Encounter Details Date Type Department Care Team (Late st Contact Info) Description 09/21/2016 Hospital Encounter [facility] [address] [place] [phone] Social History Tobacco Use Types Packs/Day [...] on file 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 Gender Identity Not on file Sexual Orientation Not on file 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 ??There will be no report generated by a [facility] Radiologist. Narrative [facility] - 07/02/2021 3:02 PM CDT EXAMINATION: ??Images For Reference Purposes Only us Linda Buckley MD PhD IMG MAMMO PROCEDURES Final Result [facility] documented in this encounter Visit Diagnoses Not on filedocumented in this encounter
--- OUTSIDE RECORDS SUMMARY | 2024-04-21 12:20 | XMS_ITS | Encounter Summary ---
Author Organization [facility] Healthcare Address [address] [place] [address] Care Team Providers Care Hand Blocker Name Role Phone Unavailable Primary Care Provider Unavailabl e Reason for Visit * Diagnostic Imaging (Routine) - Closed Specialty Diagnoses / Procedures Referred By Tati campos Referred To Contact Procedures Breast Imaging Screening Outside Reference Linda Buckley MD PhD Phone: tel: fax: Referral ID Status Reason Start Date Expiration Date Visits Re quested Visits Authorized [id number] Closed 07/02/2021 08/01/2022 1 1 Encounter Details Date Type Department Care Team (Late st Contact Info) Description 08/28/2015 Hospital Encounter [facility] [address] [place] [address] Social History Tobacco Use Types Packs/Day Years [...] file 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 Gender Identity Not on file Sexual Orientation Not on file 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 Job 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 ??There will be no report generated by a [facility] Radiologist. Narrative [facility] - 07/02/2021 3:02 PM CDT EXAMINATION: ??Images For Reference Purposes Only us Linda Buckley MD PhD IMG MAMMO PROCEDURES Final Result [facility] documented in this encounter Visit Diagnoses Not on filedocumented in this encounter
--- OUTSIDE RECORDS SUMMARY | 2024-04-21 12:20 | XMS_ITS | Encounter Summary ---
Author Organization [facility] Healthcare Address [address] [place] [id number] Care Team Providers Care Camera Storage Clerk Name Role Phone Unavailable Primary Care Provider Unavailabl e Reason for Visit * Diagnostic Imaging (Routine) - Closed Specialty Diagnoses / Procedures Referred By Tati t Referred To Contact Procedures Breast Imaging Diagnostic Outside Reference Linda Buckley MD PhD Phone: tel: fax: Referral ID Status Reason Start Date Expiration Date Visits Re quested Visits Authorized [id number] Closed 07/02/2021 08/01/2022 1 1 Encounter Details Date Type Department Care Team (Late st Contact Info) Description 08/28/2015 12:05 AM CDT Hospital Encounter [facility] [address] [place] [id number] Social History Tobacco Use Types Packs/Day Years [...] file 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 Gender Identity Not on file Sexual Orientation Not on file 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 ??There will be no report generated by a [facility] Radiologist. Narrative [facility] - 07/02/2021 3:10 PM CDT EXAMINATION: ??Images For Reference Purposes Only us Linda Buckley MD PhD IMG MAMMO PROCEDURES Final Result [facility] documented in this encounter Visit Diagnoses Not on filedocumented in this encounter
--- OUTSIDE RECORDS SUMMARY | 2024-04-21 12:22 | XMS_ITS | Encounter Summary ---
Author Organization [facility] Address [address] [place] [address] Care Team Providers Care Senior Web Architect Name Role Phone Almita Smallwood MD Primary Care Provider + Encounter Details Date Type Department Care Team (Late st Contact Info) Description 02/21/2024 External Device Data [facility] ABSTRACTION Provider, Abstract NO ADDRESS ON FILE Social History Tobacco Use Types Packs/Day Years Used Date Smoking Tobacco: Former Cigarettes 2 20 0 01/07/1985 - 01/07/2005 Smokeless Tobacco: Never Alcohol Use Standard Drinks/Week Comments Yes 0 (1 standard drink = 0.6 oz pur e alcohol) occasional Feeling Safe Answer Date Recorded Are you in a relationship wi th someone who hurts you emotionally and/or physically? Patient unable to answer 09/05/2023 Food Insecurity Answer Date Recorded Social/Environmental Concerns No concerns Transportation Needs Answer Date Record ed Social/Environmental Concerns No concerns Housing Stability Answer Date Recorded Social/Environmental Concerns No concerns Utility Needs Answer Date Recorded Social/Environmental Concerns No concerns Sex and Gender Information Value Date Recorded Sex Assigned at Not on file Gender Identity Not on file Sexual Orientation Not on file documented as of this encounter Plan of Treatment Not on file documented as of this encounter Visit Diagnoses Not on filedocumented in this encounter Care Teams Senior Web Architect Relationship Specialty Start Date End Date Almita Smallwood MD [address] [place] [address] PCP - General Internal Medicine 03/14/18 documented as of this encounter
--- OUTSIDE RECORDS SUMMARY | 2024-04-21 12:22 | XMS_ITS | Encounter Summary ---
Author Organization [facility] Address [address] [place] [address] Care Team Providers Care Print Binding And Finishing Worker Name Role Phone Almita Smallwood MD Primary Care Provider + Encounter Details Date Type Department Care Team (Late st Contact Info) Description 09/13/2023 External Device Data [facility] ABSTRACTION Provider, Abstract [...] on filedocumented in this encounter Care Teams Print Binding And Finishing Worker Relationship Specialty Start Date End Date Almita Smallwood MD [address] [place] [address] PCP - General Internal Medicine 03/14/18 documented as of this encounter
--- OUTSIDE RECORDS SUMMARY | 2024-04-21 12:22 | XMS_ITS | Encounter Summary ---
Author Organization [facility] Address [address] [place] [address] Care Team Providers Care Can Closing Machine Operator Name Role Phone Almita Smallwood MD Primary Care Provider + Encounter Details Date Type Department Care Team (Late st Contact Info) Description 03/27/2024 External Device Data ST[facility] ABSTRACTION Provider, Abstract [...] on filedocumented in this encounter Care Teams Can Closing Machine Operator Relationship Specialty Start Date End Date Almita Smallwood MD [address] [place] [address] PCP - General Internal Medicine 03/14/18 documented as of this encounter
--- OUTSIDE RECORDS SUMMARY | 2024-04-21 12:22 | XMS_ITS | Encounter Summary ---
Author Organization [facility] Address [address] [place] [address] Care Team Providers Care Manufacturing Associate Name Role Phone Almita Smallwood MD Primary Care Provider + Encounter Details Date Type Department Care Team (Late st Contact Info) Description 10/25/2023 External Device Data ST[facility] ABSTRACTION Provider, Abstract [...] on filedocumented in this encounter Care Teams Manufacturing Associate Relationship Specialty Start Date End Date Almita Smallwood MD [address] [place] [address] PCP - General Internal Medicine 03/14/18 documented as of this encounter
--- OUTSIDE RECORDS SUMMARY | 2024-04-21 12:22 | XMS_ITS | Encounter Summary ---
Author Organization [facility] Address 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 Name Role Phone Almita Smallwood MD Primary Care Provider + Reason for Visit * Auth/Cert (Routine) Specialty Diagnoses / Procedures Referred By Tati campos Referred To Contact Perioperative Diagnoses MAXILLARY HYPOPLASIA Procedures ME RCNSTJ MIDFACE LEFORT I 2 PIECES W/O BONE GRAFT ME RCNSTJ MNDBLR RAMI&/BDY SGTL SPLT W/INT RGD FI ME IMPRESSION & PREPARATION ORAL SURGICAL SPLINT LEFORT OSTEOTOMY Juan Manuel Farnsworth MD [address] [place] [id number] [facility] [address] [place] [address] Referral ID Status Reason Start Date Expiration Date Visits Re quested Visits Authorized [id number] 1 1 Encounter Details Date Type Department Care Team (Latest Contact Info) Description 09/05/2023 11:12 AM CDT - 09/07/2023 1:06 PM CDT Hospital Encounter [facility] Trauma Neuro Step Down [facility] [address] [place] [address] Juan Manuel Farnsworth MD [address] [place] [id number] Discharge Disposition: Home or Self Care Social [...] Sign Reading Time Taken Comments Blood Pressure 135/62 09/07/2023 11:22 AM CDT Pulse 89 09/07/2023 11:22 AM CDT Temperature 36.7 ??C (98 ??F) 09/07/2023 11:22 AM CDT Respiratory Rate 12 09/07/2023 11:22 AM CDT Oxygen Saturation 99% 09/07/2023 11:22 AM CDT Inhaled Oxygen Concentration - - Weight 69 kg (152 lb 3.2 oz) 09/05/2023 11:55 AM CDT Height 165.1 cm (5' 5 ) 09/05/2023 11:55 AM CDT Body Mass Index 25.33 09/05/2023 11:55 AM CDT documented in this encounter Discharge Instructions * Discharge Instructions* Jaime Navas, DMD - 09/05/2023 1:23 PM CDT POSTOPERATIVE INSTRUCTIONS: Oral Hygiene: It is important to maintain good oral hygiene postoperatively to prevent postoperative infection as well as dental decay and/or gum disease. ?? Please rinse with chlorhexidine or Peridex rinse twice a day. Do not eat or drink for one half hour after rinsing. ?? Perform warm salt water rinses regularly after eating. Wait one hour after chlorhexidine rinse before beginning salt water rinses. ?? [place] your teeth regularly. ?? Mechanical and manual toothbrushes alike are acceptable for postoperative dental care. Activity: After surgery you may not participate in strenuous physical activity or any activity that may result in trauma to the face for at least six weeks postoperatively. ?? No strenuous running, weight lifting, etc. ?? No contact sports. Diet: It is critical after surgery that you remain on a blenderized diet (non-chewing) for six weeks. All foods with consistency harder than applesauce must be placed in a blender/braze applicator prior to eating. ?? Blenderized diet for six weeks. ?? Avoid fat free foods for optimum nutrition and to avoid weight loss. ?? Anything (even pizza and meats) that can be liquified in a blender/braze applicator will help in the dietary intake. Additional dietary supplements may include [place] Instant Breakfast, Ensure, etc. Antibiotics: If you have been prescribed an antibiotic, it is very important that you take it as directed until the prescription is complete or until otherwise instructed by our surgery team. Pain and Swelling: For moderate-severe pain, you can use the prescribed narcotics. These should not be taken on an empty stomach as they can cause nausea/vomiting. They may also cause drowsiness and constipation.Do not drive while medicated. For constipation, you can buy [id number] Colace/Docusate Sodium or a stool softener. Pain and swelling are usually maximum at 48-72 hours postoperative. After that period pain should continue to decrease and you can use either Tylenol or Ibuprofen for mild-moderate pain. You can also apply ice to the face frequently for the first 2-3 days postoperative to decrease swelling and improve comfort. Use the ice packs 20 minutes on/ 20 minutes off or alternate from side to side every 20 minutes. Swelling can be reduced by sleeping in a semi-upright position in bed. Using two pillows is usually adequate for this. Nausea: This is usually due to swallowing a small amount of blood during and/or after surgery. A small amount of carbonated drink, such as 7-Up or leticia duane, every hour for 5 or 6 hours will usually relieve this feeling. Sometimes pain medications can cause nausea. If your jaws are shut with wires or elastics, nausea is no cause for alarm. Remember that even if you should become nauseated and vomit, everything that is in your stomach has been strained through your teeth and can easily pass back through. If your nausea is persistent, please call our office. DO NOT SMOKE. Smoking postoperatively may lead to the following: -Malunion of reduced bone and/or intraoral wounds -Delayed wound healing -Necrosis of the bone, leading to: -Resection or removal of bone -Bone Grafts -Additional surgeries -Infection -Increased postoperative pain You may contact us with questions or concerns at [phone] In the event of an emergency please contact emergency medical help. You may also contact the oral surgeon internal control specialist by calling the hospital vulcanized fiber unit operator at [phone] and requesting the oral surgeon internal control specialist. An on-call oral surgeon is available for emergent issues 24hrsa day 7 days a week. Care plan: Follow-up appointment with at [facility] in days. For scheduling issues, please call [phone]. documented in this encounter Medications at Time of Discharge Medication Sig Dispensed Refills Start Date End Date acetaminophen (TYLENOL) 325 mg tablet Take 2 Tablets (650 mg) by mouth every 6 hours as needed for Pain. 40 Tablet 09/07/2023 ibuprofen (MOTRIN) 600 mg tablet Take 1 Tablet (600 mg) by mouth every 6 hours as needed for Pain. 40 Tablet 09/07/2023 oxyCODONE (ROXICODONE) 5 mg tabletIndications:Maxi llary hypoplasia Take 1 Tablet (5 mg) by mouth every 4 hours as needed for Pain, Severe. Max Daily Amount: 6 tablets 20 Tablet 09/07/2023 sodium chloride (OCEAN) 0.65 % Aerosol, [place] Administer 2 Sprays in each nostril every 2 hours as needed for Congestion. 44 mL 09/07/2023 fexofenadine (KIARRA) 180 mg tablet Take 180 mg by mouth daily. Bacillus coagulans (PROBIOTIC, B. COAGULANS, ORAL) Take by mouth. NAPROXEN SODIUM, BULK, MISC by Misc.(Non-Drug; Combo Route) route. amitriptyline (ELAVIL) 10 mg tablet Take 10 mg by mouth daily at bedtime. rizatriptan benzoate (RIZATRIPTAN ORAL) Take by mouth. dextromethorphan-guaiF ENesin (MUCINEX DM) 30-600 mg Tablet Sustained Release 12HR Take 1 Tablet by mouth every 12 hours. montelukast (SINGULAIR) 10 mg tablet TAKE 1 TABLET DAILY AT BEDTIME 90 Tablet 3 07/04/2023 cholecalciferol, vitamin D3, (VITAMIN D3 ORAL) Take 1 Tablet by mouth daily. prasterone, DHEA, (DHEA ORAL) Take 1 Tablet by mouth daily. levocetirizine (Xyzal) 5 mg tablet Take 1 Tablet (5 mg) by mouth late in the day. 30 Tablet 1 02/22/2020 azelastine (ASTELIN) 137 mcg/actuation nasal spray Administer 2 Sprays in each nostril 2 times daily. 30 mL 02/22/2020 multivitamin (MULTIPLE VITAMINS DAILY ORAL) Take 2 Each by mouth daily. Gummy vitamins 06/04/2019 cyanocobalamin (VITAMIN B-12) 250 mcg Tablet Take 250 mcg by mouth daily. COLLAGEN MISC by Misc.(Non-Drug; Combo Route) route. TURMERIC ORAL Take by mouth. amoxicillin-clavulanat e (AUGMENTIN) 875-125 mg tablet Take 1 Tablet by mouth every 12 hours for 7 days. 14 Tablet 09/07/2023 09/14/2023 documented as of this encounter Progress Notes * Carol Washington RN - 09/07/2023 1:04 PM CDT Pt dc home. Pain managed with PRN medications. AxOx4. RA. Up ad zakia. Stable VS. Educated on follow up appointments and medications. documented in this encounter H&P Notes * Jaime Navas DMD - 09/05/2023 1:22 PM CDT I have reviewed the last H&P and examined the patient today and there are no changes. Jaime Navas DMD geospatial systems integrator * Jaime Navas DMD - 08/29/2023 10:30 AM CDT HISTORY OF PRESENT ILLNESS Lisa Hermosillo is a 63 y.o. 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 HENT: Positive for dental problem. Respiratory: Negative. Cardiovascular: Negative. Musculoskeletal: Negative. Skin: Negative. Neurological: Negative. Hematological: Negative. HISTORY REVIEW I have reviewed and updated all historical information, Active Problems: * No active hospital problems. * , Past Medical History: Diagnosis Date Asthma 09/2018 Back pain Breast cancer 2017 L Emphysema of lung H/O breast biopsy Kidney stones Motion sickness Temporomandibular disorder , Past Surgical History: Procedure Laterality Date HX BREAST LUMPECTOMY FOR CANCER Left 2017 HX KIDNEY STONE SURGERY HX LYMPH NODE BIOPSY Right Abnormal biopsy, lymph node REMOVED HX MASTECTOMY 11/2016 HX TUBAL LIGATION LITHOTRIPSY 03/2015 , Family History Problem Relation Name Age of Onset Cancer Father Leukemia leukemia Colon Cancer Mother Mom 1884 Other Sister Heart Disease Brother Healthy Brother No Known Problems Sister Healthy Sister No Known Problems Sister No Known Problems Sister Colon Cancer Sister Kallie No Known Problems Sister No Known Problems Sister , Social History Socioeconomic History Marital status: Number of children: 2 Tobacco Use Smoking status: Former Current packs/day: 0.00 Average packs/day: 2.0 packs/day for 20.0 years (40.0 ttl pk-yrs) Types: Cigarettes Start date: 01/07/1985 Quit date: 01/07/2005 Years since quittin.6 Smokeless tobacco: Never Vaping Use Vaping status: Never Used Substance and Sexual Activity Alcohol use: Yes Comment: occasional Drug use: Never Sexual activity: Not Currently Partners: Male control/protection: Pill Other Topics Concern Service No Blood Transfusions No Caffeine Concern No Occupational Exposure No Hobby Hazards No Sleep Concern No Stress Concern No Weight Concern No Special Diet No Back Care No Exercise Yes Bike Helmet No Seat Belt Yes Self-Exams No Social Determinants of Health Food Insecurity: No Food Insecurity (08/12/2023) Food Insecurity Patient needs follow up regarding:: No concerns Transportation Needs: No Transportation Needs (08/12/2023) Transportation Needs Patient needs follow up regarding:: No concerns Housing Stability: Low Risk (08/12/2023) Housing Stability Patient needs follow up regarding:: No concerns , No Known Allergies, No medications prior to admission. Objective PHYSICAL EXAM Last Vitals: LMP 09/15/2014 (Within Months) Physical Exam Constitutional: Appearance: Normal appearance. HENT: Head: Normocephalic. Nose: Nose normal. Mouth/Throat: Mouth: Mucous membranes are moist. Pharynx: Oropharynx is clear. Eyes: Extraocular Movements: Extraocular movements intact. Pupils: Pupils are equal, round, and reactive to light. Cardiovascular: Rate and Rhythm: Normal rate. Pulmonary: Effort: Pulmonary effort is normal. Abdominal: Palpations: Abdomen is soft. Musculoskeletal: General: Normal range of motion. Cervical back: Normal range of motion and neck supple. Skin: General: Skin is warm and dry. Neurological: General: No focal deficit present. Mental Status: She is alert and oriented to person, place, and time. DIAGNOSTICS I have reviewed all of the patient's diagnostics., CBC: Lab Results Component Value Date/Time WBC 4.6 10/15/2021 03:15 PM RBC 3.51 (L) 10/15/2021 03:15 PM HGB 11.8 08/12/2023 09:29 AM HCT 37.2 08/12/2023 09:29 AM PLT 182 10/15/2021 03:15 PM , BMP: Lab Results Component Value Date/Time GLUCOSE 84 08/12/2023 09:29 AM NA 142 08/12/2023 09:29 AM K 4.2 08/12/2023 09:29 AM CL 105 08/12/2023 09:29 AM CO2 26 08/12/2023 09:29 AM BUN 12 08/12/2023 09:29 AM CREAT 1.07 (H) 08/12/2023 09:29 AM CA 9.6 08/12/2023 09:29 AM Assessment ASSESSMENT/PLAN: Active Problems: * No active hospital problems. 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 Plan: OR for [place] I Osteotomy - 2 piece, Bilateral Sagittal Split Osteotomy Jaime Navas DMD documented in this encounter OR Notes * Operative Report - Jaime Navas DMD - 09/05/2023 7:02 PM CDT Operative Report Lisa Hermosillo [id number] DOS: 09/05/23 Pre-operative Diagnosis: MAXILLARY HYPOPLASIA Mandibular hyperplasia Post-operative Diagnosis: Same Procedure(s) and Anesthesia Type: * LEFORT OSTEOTOMY - General Bilateral Sagittal Split Osteotomy Surgeons and Role: * Juan Manuel Farnsworth MD - Primary Jaime Navas DMD - Fellow Indications: 63 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 All questions were answered. Patient transported to OR by anesthesia service. General anesthesia induced and nasal endotracheal tube placed and secured. Local anesthetic consisting of 1% lidocaine with 1:100,000 epi injected offthe field through out the maxilla. Patient prepped and draped in standard fashion. Timeout performed. Oropharynx suctioned dry and throat pack placed. Occlusal reductions performed with round bur. A maxillary vestibular incision was made with electrocautery. The anterior face of the maxilla was then exposed in a subperiosteal plane from the zygomatic buttress region to the infraorbital nerves and finally to the piriform rims bilaterally. Care was taken to protect the neurovascular bundles. The custom cutting guides were secured with good fit. The nasal mucosa was dissected and protected, while the proposed osteotomy was marked and cut utilizing a reciprocating saw bilaterally. The maxilla was carefully downfractured and appropriate bone was removed to allow repositioning per VSP. Nasalmucosa was closed as necessary with 3-0 chromic gut. The intermediate occlusal splint was placed. The maxilla was secured to the mandible via 0.018 wires utilizing the appropriate keyed surgical splint and the maxillomandibular complex was rotated passively into position. The site was thoroughly irrigated. The maxilla was then secured with L shaped plates at the ZM and piriform bilaterally and secured with monocortical screws. The mandible was released and passive re-seating into the keyed splint was noted. The maxillary wound was packed with moist gauze to facilitate hemostasis. A standard sagittal incision was made on the left, followed by a subperiosteal dissection from the mandibular body region posteriorly to the coronoid. A meticulous medial dissection was accomplished and the neurovascular bundle was protected with a Seldin retractor. The sagittal osteotomy was then completed utilizing a reciprocating saw. The surgical site was packed with moist gauze to facilitatehemostasis. An identical procedure was completed on the right side of the mandible. The sagittal osteotomies were then completed utilizing a series of graduating chisels. The neurovascular bundle was identified and remained intact with minimal manipulation. The mandible was secured to the maxilla via 0.018 wires utilizing the appropriate keyed surgical splint, yielding a movementconsistent with VSP. The proximal segment was adjusted bilaterally to allow passive seating of the condyle and access for wound closure. The sites were thoroughly irrigated. The condyles were properly seated. The osteotomies were then rigidly fixated with a 1.5mm four hole plate and secured with monocortical screws. Wire fixation was released yielding a repeatable, well interdigitated occlusion. The incisions were all washed out thoroughly. The maxillary incision was thoroughly irrigated and a 2-0 PDS suture was used for the nasal cinch. A V-Y closure was accomplished with 3-0 Monocryl suture in continuous fashion. Each sagittal incision was thoroughly irrigated and closed with 3-0 Monocryl suture in continuous fashion. Posterior oropharynx suctioned dry and throat pack removed. 0.5% marcaine with 1:200,000 epi infiltrated at surgical site for keno terminal operator analgesia. Patient turned back over to anesthesia for emergence, extubation and transport to PACU with out complication. Sponge and needle counts correct. Findings: Good postop occlusion Specimens: None Implants: Implant Name Type Inv. Item Serial No. Supply Chain Director Lot No. LRB No. Used Action PLATE LOC FX CRV SHRT N-CMPRSN [id number] - SSTERILIZED AUG 30 2023 Plate PLATE LOC FX CRV SHRT N-CMPRSN [id number] STERILIZED AUG 30 2023 My True Fit LOAD 27 N/A 2 Implanted SCREW LVL 1 CMF 2.0X7MM CROSSDRIVE TLTS [id number] - SSTERILIZED AUG 30 2023 Screw SCREW LVL 1 CMF 2.0X7MM CROSSDRIVE TLTS [id number] STERILIZED AUG 30 2023 My True Fit LOAD 27 N/A 8 Implanted SCREW SD MAXDR 2.0X7MM [id number] - SLOAD # 2 7 STERILIZED AUGUST 30, 2023 Screw SCREW SD MAXDR 2.0X7MM [id number] LOAD # 2 7 STERILIZED AUGUST 30, 2023 My True Fit N/A 18 Implanted SCREW ER MXDRV 2.3X7MM [id number] - SLOAD # 2 7 STERILIZED AUGUST 30, 2023 Screw SCREW ER MXDRV 2.3X7MM [id number] LOAD # 2 7 STERILIZED AUGUST 30, 2023 [employer] LP Right 2 Implanted PLATE-L LP RT LNG 0.6MM [id number] - SLOAD # 2 7 STERILIZED AUGUST 30, 2023 Plate PLATE-L LP RT LNG 0.6MM [id number] LOAD # 2 7 STERILIZED AUGUST 30, 2023 [employer] LP Right 1 Implanted PLATE-L LP LT LNG .6MM [id number] - SLOAD # 2 7 STERILIZED AUGUST 30, 2023 Plate PLATE-L LP LT LNG .[id number] LOAD # 2 7 STERILIZED AUGUST 30, 2023 [employer] LP Left 1 Implanted Mini 100 degree L Plate Right Plate [employer] LP Right 1 Implanted Mini 100 degree L Plate Left Plate [employer] LP Left 1 Implanted Estimated Blood Loss: 200cc Jaime Navas DMD documented in this encounter Miscellaneous Notes * Care Plan - Amelia Uriarte LPN - 09/06/2023 3:41 PM CDT Problem: Cardiovascular Goal: Achieve optimal cardiovascular function by discharge or maintain baseline function Outcome: Progressing Problem: Musculoskeletal Goal: Achieve optimal musculoskeletal function by discharge or maintain baseline function Outcome: Progressing Problem: Skin Goal: Maintain skin integrity and/or promote wound healing by discharge Outcome: Progressing * Care Plan - Jasmin Salomon MSW - 09/06/2023 9:30 AM CDT Readmission Risk (patient becomes high risk with a score of 8 or greater) 3 Total Score 3 COPD Total Score of 9 or below does not identify immediate needs for discharge. Age Score: 4 Disability Score: 0 Prior Living Status Score: {3 Mobility Limitation Score: 0 TOTAL SCORE: 7 Clinical documentation reviewed. Comprehensive Discharge Planning Risk Assessment was completed. Documentation Related to CDPA score CDPA Documentation Weight-Bearing Status: no weight-bearing restrictions Total Score of 9 or below does not identify immediate needs for discharge. Please place consult if needs for discharge are identified. Care Management will continue to follow for discharge planning. JAKE Morel [id number] * Care Plan - Chitra Anderson RN - 09/05/2023 7:13 PM CDT Potential for pain related to surgical/procedural intervention Interventions: Assess level of pain/comfort utilizing verbal/nonverbal pain scales; assess culturalor synagogue indicators attached to pain; administer pain medications as prescribed; utilize non-pharmacologic pain control and comfort measures Expected Outcome: Patient demonstrates and reports adequate pain control Outcome Met: prn meds available, pain well controlled Potential for alteration in thermoregulatory, circulatory, respiratory fluid & electrolyte status Interventions: Perform ongoing physical assessment; maintenance of airway or mechanical ventilation; monitor level of consciousness; initiate safety measures; observe patient???s respiratory status and oxygen saturation; obtain measurements of ongoing hemodynamic parameters, cardiac rhythm, and temperature; monitor intake and output; inspect wound dressings and/or drain output; perform prescribedtherapeutic regimens, treatments and tests; document and/or communicate care given Expected Outcome: Patient will maintain functional status compatible with preoperative status Outcome Met: vss, normothermic, patient able to maintain O2 sats, no bleeding or hematoma from surgical site * Care Plan - Ilsa Granados RN - 09/05/2023 12:07 PM CDT Knowledge deficit related to procedure/environment Interventions: Assess learning needs and willingness to learn; give clear, concise explanations of the environment and sequence of events surrounding the periop experience; address patient/family questions and concerns; provide teaching as indicated, provide teaching related to postoperative pain assessment utilizing pain scales Expected Outcome: Patient verbalizes or demonstrates awareness/understanding of surgery and perioperative experience Outcome Met: understands jomar-op Potential for anxiety related to surgical intervention Interventions: convey caring/supportive attitude; offer emotional support as needed; provide comfort measures (warm blanket, pillow, quiet environment); allow patient opportunity to verbalize concerns/fears/questions; explore coping behaviors; allow age-specific/special needs family support Expected Outcome: Patient will demonstrate decreased anxiety or adaptive coping strategies Outcome Met: patient calm and informed documented in this encounter Plan of Treatment Not on file documented as of this encounter Procedures Procedure Name Priority Date/Time Associated Diagnosis Comments POC LACTIC ACID Routine 09/05/2023 2:39 PM CDT BLOOD GAS,(INCL. H+H, LYTES, GLUC) Routine 09/05/2023 2:39 PM CDT VERIFICATION BLOOD GROUP Stat 09/05/2023 1:17 PM CDT Encounter for blood typing LEFORT OSTEOTOMY 09/05/2023 1:13 PM CDT MAXILLARY HYPOPLASIA Case Notes ANTHEM--[id number] documented in this encounter Results * POC LACTIC ACID (09/05/2023 2:39 PM CDT) LACTIC ACID POC 1.6 <=2.0 mmol/L 09/05/2023 2:39 PM CDT [facility] SPECIMEN SOURCE, GASES POC Arterial 09/05/2023 2:39 PM CDT [facility] COMMENT, GASES POC Responsible Clinical Caregiver notified 09/05/2023 2:39 PM CDT [facility] Blood 09/05/2023 2:39 PM CDT 09/05/2023 2:40 PM CDT Juan Manuel Farnsworth MD POINT OF CARE TESTIN G [facility] CLIA# [id number] [address] [place] [address] * (ABNORMAL) BLOOD GAS,(INCL. H+H, LYTES, GLUC) (09/05/2023 2:39 PM CDT) PH BLOOD POC 7.38 7.35 - 7.45 09/05/2023 2:39 PM CDT [facility] PCO2 POC 42 35 - 48 mm Hg 09/05/2023 2:39 PM [facility] PO2 POC 390(H) 83 - 108 mm Hg 09/05/2023 2:39 PM [facility] TCO2 (CALC) POC 26(H) 19 - 24 mmol/L 09/05/2023 2:39 PM [facility] HCO3 (CALC) POC 25 22 - 26 mmol/L 09/05/2023 2:39 PM [facility] O2 SATURATION POC 100(H) 94 - 98 % 09/05/2023 2:39 PM [facility] BASE EXCESS POC 0 -2 - 3 mmol/L 09/05/2023 2:39 PM [facility] HEMOGLOBIN POC 10.4(L) 11.8 - 14.8 g/dL 09/05/2023 2:39 PM [facility] HEMATOCRIT POC 31(L) 35 - 44 % 09/05/2023 2:39 PM [facility] Comment:Estimated Value GLUCOSE POC 94 74 - 99 mg/dL 09/05/2023 2:39 PM [facility] SODIUM POC 139 135 - 145 mmol/L 09/05/2023 2:39 PM [facility] POTASSIUM POC 3.8 3.5 - 4.9 mmol/L 09/05/2023 2:39 PM [facility] CHLORIDE POC 112(H) 98 - 107 mmol/L 09/05/2023 2:39 PM [facility] [employer] LABORATORY SERVICES [facility] CALCIUM IONIZED POC 5.0 4.7 - 5.1 mg/dL 09/05/2023 2:39 PM [facility] [employer] LABORATORY SERVICES [facility] PH TEMP CORRECT 7.38 7.35 - 7.45 09/05/2023 2:39 PM [facility] [employer] LABORATORY SERVICES [facility] PCO2 TEMP CORRECT 42 35 - 48 mm Hg 09/05/2023 2:39 PM [facility] [employer] LABORATORY SERVICES [facility] PO2 TEMP CORRECT 390(H) 83 - 108 mm Hg 09/05/2023 2:39 PM CDT [facility] LABORATORY SERVICES - [facility] SPECIMEN SOURCE, GASES POC Arterial 09/05/2023 2:39 PM CDT [facility] LABORATORY SERVICES - [facility] PATIENT'S TEMPERATURE POC 37.0 degrees 09/05/2023 2:39 PM CDT [facility] LABORATORY SERVICES - [facility] COMMENT, GASES POC Responsible Clinical Caregiver notified 09/05/2023 2:39 PM CDT [facility] LABORATORY SERVICES - [facility] Blood, arterial 09/05/2023 2 :39 PM CDT 09/05/2023 2:40 PM CDT Juan Manuel Farnsworth MD ABG ORDERABLES [facility] LABORATORY SERVICES [facility]# [id number] [address] [place] [address] * VERIFICATION BLOOD GROUP (09/05/2023 1:17 PM CDT) ABO GROUP A 09/05/2023 1:19 PM CDT [facility] LABORATORY SERVICES -- [facility] RH (D) TYPE Negative 09/05/2023 1:19 PM CDT [facility] LABORATORY SERVICES -- [facility] Blood Venipuncture / Unknown 09/05/2023 1:17 PM CDT 09/05/2023 1:17 PM CDT Lauren Borrero MD BLOOD BANK ORD ERABLES [facility] [employer] [facility]# [id number] [address] [place] [address] documented in this encounter Visit Diagnoses 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 documented in this encounter Administered Medications Inactive Administered Medications - up to 3 most recent administrations Medication Order MAR Action Action Date Dose Rate Site acetaminophen (TYLENOL) tablet 650 mg 650 mg, Oral, EVERY 6 HOURS, First dose on Tue09/06/23 at 0000, Until Discontinued, Routine Given 09/07/2023 11:48 AM CDT 650 mg Given 09/07/2023 5:25 AM CDT 650 mg Given 09/07/2023 12:38 AM CDT 650 mg albuterol (PROVENTIL,VENTOLIN) 2.5 mg /3 mL (0.083 %) inhalation solution 2.5 mg 2.5 mg, Inhalation, EVERY 6 HOURS PRN RESPIRATORY, Starting on Tue09/05/23 at 2228, Until Tue09/07/23 at 1511, Shortness of Breath, Wheezing, Routine amitriptyline (ELAVIL) tablet 10 mg 10 mg, Oral, DAILY AT BEDTIME, First dose on Tue09/05/23 at 2330, Until Discontinued, Routine, Previous Med: amitriptyline (ELAVIL) 10 mg tablet - Orig Sig - Take 10 mg by mouth daily at bedtime. Given 09/06/2023 8:24 PM CDT 10 mg Given 09/05/2023 11:07 PM CDT 10 mg ceFAZolin (ANCEF) 1,000 mg in dextrose (iso-osmotic) 50 mL IVPB (PREMIX) 1,000 mg, IV, EVERY 8 HOURS, 6 doses, First dose on Tue09/05/23 at 2245, Last dose on Tue09/07/23 at 1300, Routine, Antibiotic Indication: Surgical prophylaxis New Bag 09/07/2023 5:26 AM CDT 1,000 mg 100 mL/hr New Bag 09/06/2023 8:23 PM CDT 1,000 mg 100 mL/hr New Bag 09/06/2023 12:59 PM CDT 1,000 mg 100 mL/hr dexAMETHasone (DECADRON) injection 8 mg 8 mg, IV, EVERY 6 HOURS, 6 doses, First dose on Tue09/06/23 at 0000, Last dose on Tue09/07/23 at 0600, Routine Given 09/07/2023 5:25 AM CDT 8 mg Given 09/07/2023 12:39 AM CDT 8 mg Given 09/06/2023 5:39 PM CDT 8 mg hydromorPHONE (PF) (DILAUDID) 1 mg/mL syringe 0.6 mg 0.6 mg, IV, EVERY 2 HOURS PRN, Starting on Tue09/05/23 at 2226, Until Tue09/07/23 at 1511, Pain (See admin instructions), Routine Given 09/06/2023 1:08 AM CDT 0.6 mg ibuprofen (MOTRIN) tablet 600 mg 600 mg, Oral, EVERY 6 HOURS, First dose on Tue09/06/23 at 0000, Until Discontinued, Routine Given 09/07/2023 11:48 AM CDT 600 mg Given 09/07/2023 5:24 AM CDT 600 mg Given 09/07/2023 12:38 AM CDT 600 mg lactated ringers infusion IV, at 150 mL/hr, PRE-PROCEDURE CONTINUOUS, Starting on Tue09/05/23 at 1215, Until Tue09/05/23 at 2215, Routine New Bag 09/05/2023 3:33 PM CDT Continue from Pre-Op 09/05/2023 1:59 PM CDT 150 mL/hr New Bag 09/05/2023 12:15 PM CDT 150 mL/hr lactated ringers infusion IV, at 75 mL/hr, CONTINUOUS, Starting on Tue09/05/23 at 2230, Until Tue09/06/23 at 2229, Routine New Bag 09/05/2023 10:32 PM CDT 75 mL /hr naloxone (NARCAN) 0.4 mg/mL injection 0.1-0.4 mg 0.1-0.4 mg, IV, SEE ADMIN INSTRUCTIONS, Starting on Tue09/05/23 at 1940, Until Tue09/07/23 at 1511, Routine, PACU ondansetron (ZOFRAN) 4 mg/2 mL injection 4 mg 4 mg, IV, POST-PROCEDURE ONCE PRN, 1 dose, Starting on Tue09/05/23 at 1941, Until Tue09/05/23 at 2204, Nausea/Emesis, Routine, PACU Given 09/05/2023 10:04 PM CDT 4 mg oxyCODONE (ROXICODONE) tablet 5 mg 5 mg, Oral, EVERY 4 HOURS PRN, Starting on Tue09/05/23 at 2226, Until Tue09/07/23 at 1511, Pain (See admin instructions), Routine Given 09/07/2023 10:55 AM CDT 5 mg documented in this encounter Active and Recently Administered Medications Times are shown in CDT. Scheduled Medication Order 09/05/2023 09/06/2023 09/07/2023 acetaminophen (TYLENOL) tablet 650 mg 650 mg, Oral, EVERY 6 HOURS, First dose on Tue09/06/23 at 0000, Until Discontinued, Routine 2310 (Given - Provider: LOCO Kuhn) 0538 (Given - Provider: LOCO Kuhn)1256 (Given - Provider: Amelia Uriarte LPN)1739 (Given - Provider: Amelia Uriarte LPN) 0038 (Given - Provider: Jose Luis Pratt RN)0525 (Given - Provider: Jose Luis Pratt RN)1148 (Given - Provider: Carol Washington RN) amitriptyline (ELAVIL) tablet 10 mg 10 mg, Oral, DAILY AT BEDTIME, First dose on Tue09/05/23 at 2330, Until Discontinued, Routine, Previous Med: amitriptyline (ELAVIL) 10 mg tablet - Orig Sig - Take 10 mg by mouth daily at bedtime. 2307 (Given - Provider: LOCO Kuhn) 2023 (Given - Provider: Jose Luis Pratt RN) ceFAZolin (ANCEF) 1,000 mg in dextrose (iso-osmotic) 50 mL IVPB (PREMIX) 1,000 mg, IV, EVERY 8 HOURS, 6 doses, First dose on Tue09/05/23 at 2245, Last dose on Tue09/07/23 at 1300, Routine, Antibiotic Indication: Surgical prophylaxis 2305 (New Bag - Provider: LOCO Kuhn)2335 (Stopped - Provider: LOCO Kuhn) 0538 (New Bag - Provider: LOCO Kuhn)0608 (Stopped - Provider: LOCO Kuhn)1259 (New Bag - Provider: Amelia Uriarte LPN)1329 (Stopped - Provider: Amelia Uriarte LPN)2022 (New Bag - Provider: Jose Luis Pratt RN)2052 (Stopped - Provider: Jose Luis Pratt RN) 0526 (New Bag - Provider: Jose Luis Pratt RN)0556 (Stopped - Provider: Jose Luis Pratt RN)1300 (Due) ceFAZolin in sterile water (ANCEF) 2 gram/20 mL IV Syringe (PREMIX) 2,000 mg (COMPLETED) 2,000 mg, IV, PRE-PROCEDURE ONCE, 1 dose, Starting on Tue09/05/23 at 1206, Until Tue09/05/23 at 1828, Routine, Pre-op, Antibiotic Indication: Surgical prophylaxis 1430 (Given - Provider: Evangelina Connell CRNA)1828 (Given - Provider: KENRICK Acevedo) dexAMETHasone (DECADRON) injection 8 mg (COMPLETED) 8 mg, IV, EVERY 6 HOURS, 6 doses, First dose on Tue09/06/23 at 0000, Last dose on Tue09/07/23 at 0600, Routine 2315 (Given - Provider: LOCO Kuhn) 0541 (Given - Provider: LOCO Kuhn)1256 (Given - Provider: Amelia Uriarte LPN)1739 (Given - Provider: Amelia Uriarte LPN) 0039 (Given - Provider: Jose Luis Pratt RN)0525 (Given - Provider: Jose Luis Pratt RN) ibuprofen (MOTRIN) tablet 600 mg 600 mg, Oral, EVERY 6 HOURS, First dose on Tue09/06/23 at 0000, Until Discontinued, Routine 2310 (Given - Provider: LOCO Kuhn) 0538 (Given - Provider: LOCO Kuhn)1256 (Given - Provider: Amelia Uriarte LPN)1739 (Given - Provider: Amelia Uriarte LPN) 0038 (Given - Provider: Jose Luis Pratt RN)0524 (Given - Provider: Jose Luis Pratt RN)1148 (Given - Provider: Carol Washington RN) naloxone (NARCAN) 0.4 mg/mL injection 0.1-0.4 mg 0.1-0.4 mg, IV, SEE ADMIN INSTRUCTIONS, Starting on Tue09/05/23 at 2226, Until Tue09/07/23 at 1511, Routine naloxone (NARCAN) 0.4 mg/mL injection 0.1-0.4 mg 0.1-0.4 mg, IV, SEE ADMIN INSTRUCTIONS, Starting on Tue09/05/23 at 1940, Until Tue09/07/23 at 1511, Routine, PACU Continuous Medication Order 09/05/2023 09/06/2023 09/07/2023 lactated ringers infusion (CANCELED) IV, at 150 mL/hr, PRE-PROCEDURE CONTINUOUS, Starting on Tue09/05/23 at 1215, Until Tue09/05/23 at 2215, Routine 1215 (New Bag - Provider: Ilsa Granados RN)1359 (Continue from Pre-Op - Provider: Evangelina Connell CRNA)1532 (Paused - Provider: Evangelina Connell CRNA - Comment: Switch to gravity)1533 (New Bag - Provider: Evangelina Connell CRNA)1911 (Stopped - Provider: KENRICK Acevedo) lactated ringers infusion () IV, at 75 mL/hr, CONTINUOUS, Starting on Tue09/05/23 at 2230, Until Tue09/06/23 at 2229, Routine 2232 (New Bag - Provider: LOCO Kuhn) 0400 (Stopped - Provider: Jose Luis Pratt RN) PRN Medication Order 09/05/2023 09/06/2023 09/07/2023 albuterol (PROVENTIL,VENTOLIN) 2.5 mg /3 mL (0.083 %) inhalation solution 2.5 mg 2.5 mg, Inhalation, EVERY 6 HOURS PRN RESPIRATORY, Starting on Tue09/05/23 at 2228, Until Tue09/07/23 at 1511, Shortness of Breath, Wheezing, Routine BUPivacaine-EPINEPHrin e (SENSORCAINE-EPINEPHRI NE) 0.5 %-1:200,000 injection (CANCELED) INTRA-PROCEDURE PRN, Starting on Tue09/05/23 at 1858, Until Tue09/05/23 at 1907, Routine, Intra-op 1858 (Given - Provider: Jaime Navas DMD) hydromorPHONE (PF) (DILAUDID) 1 mg/mL syringe 0.6 mg 0.6 mg, IV, EVERY 2 HOURS PRN, Starting on Tue09/05/23 at 2226, Until Tue09/07/23 at 1511, Pain (See admin instructions), Routine 0108 (Given - Provider: LOCO Kuhn) lidocaine-EPINEPHrine (XYLOCAINE-EPI) 1 %-1:100,000 injection (CANCELED) INTRA-PROCEDURE PRN, Starting on Tue09/05/23 at 1730, Until Tue09/05/23 at 1907, Routine, Intra-op 1730 (Given - Provider: Jaime Navas DMD)1857 (Given - Provider: Jaime Navas DMD) metoclopramide (REGLAN) 5 mg/mL injection 10 mg 10 mg, IV, EVERY 6 HOURS PRN, Starting on Tue09/05/23 at 2226, Until Tue09/07/23 at 1511, Nausea/Emesis, Routine ondansetron (ZOFRAN) 4 mg/2 mL injection 4 mg 4 mg, IV, EVERY 6 HOURS PRN, Starting on Tue09/05/23 at 2226, Until Tue09/07/23 at 1511, Nausea/Emesis, Routine ondansetron (ZOFRAN) 4 mg/2 mL injection 4 mg (COMPLETED) 4 mg, IV, POST-PROCEDURE ONCE PRN, 1 dose, Starting on Tue09/05/23 at 1941, Until Tue09/05/23 at 2204, Nausea/Emesis, Routine, PACU 2204 (Given - Provider: Warner Mccormack RN) oxyCODONE (ROXICODONE) tablet 10 mg 10 mg, Oral, EVERY 4 HOURS PRN, Starting on Tue09/05/23 at 2226, Until Tue09/07/23 at 1511, Pain (See admin instructions), Routine oxyCODONE (ROXICODONE) tablet 5 mg 5 mg, Oral, EVERY 4 HOURS PRN, Starting on Tue09/05/23 at 2226, Until Tue09/07/23 at 1511, Pain (See admin instructions), Routine [facility]: Amelia Uriarte LPN - Comment: Pt decided she didnt want it -returned to) 1055 (Given - Provider: Carol Washington RN) oxymetazoline (AFRIN) 0.05 % nasal spray 2 [place] 2 [place], Both Nostrils, EVERY 12 HOURS PRN, Starting on Tue09/05/23 at 2226, Until Tue09/07/23 at 1511, Congestion, Routine sodium chloride (OCEAN) 0.65 % nasal soln 2 [place] 2 [place], Both Nostrils, EVERY 2 HOURS PRN, Starting on Tue09/05/23 at 2226, Until 09/07/23 at 1511, Congestion, Routine documented in this encounter Care Teams Cement Mason Maintenance Relationship Specialty Start Date End Date Almita Smallwood MD [address] [place] [address] PCP - General Internal Medicine 03/14/18 documented as of this encounter
--- OUTSIDE RECORDS SUMMARY | 2024-04-21 12:22 | XMS_ITS | Encounter Summary ---
Author Organization [facility] Address [address] [place] [address] Care Team Providers Care Hospice/Home Health Aide Name Role Phone Almita Smallwood MD Primary Care Provider + Encounter Details Date Type Department Care Team (Late st Contact Info) Description 01/10/2024 External Device Data [facility] Provider, Abstract [...] on filedocumented in this encounter Care Teams Hospice/Home Health Aide Relationship Specialty Start Date End Date Almita Smallwood MD [address] [place] [address] PCP - General Internal Medicine 03/14/18 documented as of this encounter
--- OUTSIDE RECORDS SUMMARY | 2024-04-21 12:22 | XMS_ITS | Encounter Summary ---
Author Organization [facility] Address [address] Attn: Epic Prelude ADT [facility] [place] [address] Care Team Providers Care Data Center Engineer Name Role Phone Almita Smallwood MD Primary Care Provider + Encounter Details Date Type Department Care Team (Latest Contact Info) Description 09/05/2023 Travel Social History Tobacco Use Types Packs/Day Years [...] on filedocumented in this encounter Care Teams Data Center Engineer Relationship Specialty Start Date End Date Almita Smallwood MD [address] [place] [address] PCP - General Internal Medicine 03/14/18 documented as of this encounter
--- OUTSIDE RECORDS SUMMARY | 2024-04-21 12:22 | XMS_ITS | Clinical Summary ---
Author Organization [facility] Address [address] [place] [address] Care Team Providers Care Coverage Specialist Rn Name Role Phone Almita Smallwood MD Primary Care Provider + Allergies No known active allergies Medications Medication Sig Dispensed Refills Start Date End Date Status TURMERIC ORAL Take by mouth. Active COLLAGEN MISC by Misc.(Non-Drug; Combo Route) route. Active cyanocobalamin (VITAMIN B-12) 250 mcg Tablet Take 250 mcg by mouth daily. Active multivitamin (MULTIPLE VITAMINS DAILY ORAL) Take 2 Each by mouth daily. Gummy vitamins 06/04/2019 Active levocetirizine (Xyzal) 5 mg tablet Take 1 Tablet (5 mg) by mouth late in the day. 30 Tablet 1 02/22/2020 Active azelastine (ASTELIN) 137 mcg/actuation nasal spray Administer 2 Sprays in each nostril 2 times daily. 30 mL 02/22/2020 Active cholecalciferol, vitamin D3, (VITAMIN D3 ORAL) Take 1 Tablet by mouth daily. Active prasterone, DHEA, (DHEA ORAL) Take 1 Tablet by mouth daily. Active montelukast (SINGULAIR) 10 mg tablet TAKE 1 TABLET DAILY AT BEDTIME 90 Tablet 3 07/04/2023 Active fexofenadine (KIARRA) 180 mg tablet Take 180 mg by mouth daily. Active Bacillus coagulans (PROBIOTIC, B. COAGULANS, ORAL) Take by mouth. Acti ve NAPROXEN SODIUM, BULK, MISC by Misc.(Non-Drug; Combo Route) route. Active amitriptyline (ELAVIL) 10 mg tablet Take 10 mg by mouth daily at bedtime. Active rizatriptan benzoate (RIZATRIPTAN ORAL) Take by mouth. Ac tive dextromethorphan-gu aiFENesin (MUCINEX DM) 30-600 mg Tablet Sustained Release 12HR Take 1 Tablet by mouth every 12 hours. Active acetaminophen (TYLENOL) 325 mg tablet Take 2 Tablets (650 mg) by mouth every 6 hours as needed for Pain. 40 Tablet 09/07/2023 Active ibuprofen (MOTRIN) 600 mg tablet Take 1 Tablet (600 mg) by mouth every 6 hours as needed for Pain. 40 Tablet 09/07/2023 Active oxyCODONE (ROXICODONE) 5 mg tabletIndications:M axillary hypoplasia Take 1 Tablet (5 mg) by mouth every 4 hours as needed for Pain, Severe. Max Daily Amount: 6 tablets 20 Tablet 09/07/2023 Active sodium chloride (OCEAN) 0.65 % Aerosol, Mason Administer 2 Sprays in each nostril every 2 hours as needed for Congestion. 44 mL 09/07/2023 Active Active Problems Problem Noted Date Diagnosed Date Centrilobular emphysema 06/06/2020 Multiple idiopathic cysts of lung 06/06/2020 Asthma, chronic, mild persistent, uncomplicated 06/06/2020 Personal history of tobacco use 04/20/2020 Recurrent sinusitis 04/20/2020 Other dietary vitamin B12 deficiency anemia 12/0 08/2018 Lymphadenopathy, axillary 10/02/2018 Inversion, nipple 06/30/2018 Estrogen receptor positive status (ER+) 09/16/19 18 SERM use (selective estrogen receptor modulator) 09/15/2017 Osteoporosis screening 09/15/2017 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 breast 0 01/07/2017 Overview (02/22/2020): DCIS grade 2 with focal LCIS status post lumpectomy November 2016. Patient was started on tamoxifen, took herself off in 07/2019. Was followed by Dr. Jacek Laura initially. 10/2018 - Rt axillary LN bx - no evidence of malignancy. Assessment & Plan (02/25/2020 8:08 AM INTERNAL CONTROL ANALYST): I have explained to her that she will need antiestrogen therapy for minimum of 5 years for DCIS and she took herself off of it in July 2019 after about 2 and half years. I offered her either tamoxifen or anastrozole since she is menopausal, and she chose to go with tamoxifen after hearing the side effects of both of these medications. I explained the potential side effects of tamoxifen including hot flashes, risk of thromboembolism, slightly increased risk of uterine cancer. I recommended that she take enteric-coated aspirin 325 mg while on aspirin and stop it should she develop heartburn symptoms, bloody or black stools. I have sent in the prescription to her pharmacy. 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 Will plan to see her every 6 months. Advised her to do monthly breast examinations and yearly mammograms and to contact us or her breast surgeon should she notice any abnormality on her breast exam. She verbalized understanding of today's discussion, was satisfied with the office visit, and had no further questions. Resolved Problems Problem Noted Date Diagnosed Date Resolved Date Lung, cysts, congenital 04/20/202005/19 Encounters Date Type Department Care Team Description 03/27/2024 External Device Data [facility]STRACTION Provider, Abstract 02/21/2024 External Device Data [facility]CTION Provider, Abstract from Last 3 Months Immunizations Name Administration Dates Next Due (ADACEL/BOOSTRIX)(10 YR UP) TDAP VACCINE, 0.5ML, IM 03/14/2018 (Moderna Bivalent)(6 Mos Up) COVID-19 Vaccine - Emergency Use Authorization, MRNA(Pf) 50 Mcg/0.5 Ml Im Susp 02/03/2022 (PREVNAR 20)(6 WKS UP) PNEUM OCOCCAL CONJUGATE VACCINE 20-VALENT (PCV20), POLYSACCHARIDE [id number] CONJUGATE, ADJUVANT 0.5 ML (PF) IM 10/23/2021 (SHINGRIX)(50 YRS UP) ZOSTER VACCINE RECOMBINANT, 0.5 ML, IM 01/07/2022,10/23/2021 Influenza Seasonal Unspecifi ed Formulation IM 02/03/2022,01/17/2020,01/30/2018 Family History Medical History Relation Name Comments Heart Disease Brother 1 Healthy Brother 2 Cancer Father Leukemia leukemia Colon Cancer Mother Mom 1884 Other Sister 1 No Known Problems Sister 2 Healthy Sister 3 No Known Problems Sister 4 No Known Problems Sister 5 Colon Cancer Sister 6 Kallie No Known Problems Sister 7 No Known Problems Sister 8 Relation Name Status Comments Brother 1 Alive Brother 2 Alive Father Leukemia Mother Mom Sister 1 Sister 2 Alive Sister 3 Alive Sister 4 Alive Sister 5 Alive Sister 6 Kallie Alive Sister 7 Alive Sister 8 Alive Social History Tobacco Use Types Packs/Day Years Used Date Smoking Tobacco: Former Cigarettes 2 20 0 01/07/1985 - 01/07/2005 Smokeless Tobacco: Never Tobacco Cessation:Counseling Given: Not [...] on file Sexual Orientation Not on file Last Filed Vital Signs [...] Mass Index 25.33 09/05/2023 11:55 AM CDT Plan of Treatment Health Maintenance Due Date Last Done Comments Pre-Diabetes and Diabetes Screening 1962 CERVICAL CANCER SCREENING 02/12/1992 COLORECTAL SCREENING 2007 Colorectal Cancer Screening 2007 FIT-DNA Q 3 years 2007 FIT/FOBT Q 1 year 2007 Flex Sig/CT Colonography Q 5 years 2007 RSV VACCINE (60+ or ) (1 - Risk 60-74 years 1-dose series) 2022 Preventative Visit- Commercial 04/18/2023 0 10/15/2021, 04/29/2021, 04/16/2020, Additional history exists INFLUENZA VACCINE (#1) 2023 2, 01/17/2020, 01/30/2018 COVID-19 Vaccine (2023-2 5 season) 2023 02/03/2022, 01/30/2021, 08/14/2020, Additional history exists BREAST CANCER SCREENING 12/08/2024 12/09/19 24, 06/29/2022, 06/25/2021, Additional history exists DTAP/TDAP/TD VACCINES (2 - T d or Tdap) 03/14/2028 03/14/2018 PNEUMOCOCCAL VACCINE 0-64 YEARS Completed ZOSTER VACCINE Completed 01/07/2022, 10/23/2021 Medical Devices Implanted Type Area Agricultural Systems Specialist Device Identifier Shelf Expiration Date Model / Serial / Lot Plate Loc Fx Crv Shrt N-Cmprsn [id number] - Ssterilized Aug 30 2023 Implanted:Qty: 2 on 09/05/2023 by Juan Manuel Farnsworth MD at [facility] Plate N/A: Mandible MICK SNELL LP [id number] / STERILIZED AUG 30 2023 / LOAD 27 Description:Bilateral Plate-L Lp Rt Lng 0.6mm [id number] - Sload # 2 7 Sterilized August 30, 2023 Implanted:Qty: 1 on 09/05/2023 by Juan Manuel Farnsworth MD at [facility] Plate Right: Maxilla MICK SNE[employer] LP [id number] / LOAD # 2 7 STERILIZED AUGUST 30, 2023 / Plate-L Lp Lt Lng .6mm [id number] - Sload # 2 7 Sterilized August 30, 2023 Implanted:Qty: 1 on 09/05/2023 by Juan Manuel Farnsworth MD at [facility] Plate Left: Maxilla M[employer] SNE[employer] LP [id number] / LOAD # 2 7 STERILIZED AUGUST 30, 2023 / Mini 100 Degree L Plate Right Implanted:Qty: 1 on 09/05/2023 by Juan Manuel Farnsworth MD at [facility] Plate Right: Maxilla MICK SNE[employer] LP [id number] / / Mini 100 Degree L Plate Left Implanted:Qty: 1 on 09/05/2023 by Juan Manuel Farnsworth MD at [facility] Plate Left: Maxilla MICK SNELL LP [id number] / / Description:MICK HERNÁNDEZ SITION# [id number] Screw Lvl 1 Cmf 2.0x7mm Crossdrive Tlts [id number] - Ssterilized Aug 30 2023 Implanted:Qty: 8 on 09/05/2023 by Juan Manuel Farnsworth MD at [facility] Screw N/A: Mandible MICK SNE[employer] LP [id number] / STERILIZED AUG 30 2023 / LOAD 27 Description:Bilateral Screw Sd Maxdr 2.0x7mm [id number] - Sload # 2 7 Sterilized August 30, 2023 Implanted:Qty: 18 on 09/05/2023 by Juan Manuel Farnsworth MD at [facility] Screw N/A: Maxilla MICK SNE[employer] LP [id number] / LOAD # 2 7 STERILIZED AUGUST 30, 2023 / Description:Bilateral Screw Er Mxdrv 2.3x7mm -[id number] - Sload # 2 7 Sterilized August 30, 2023 Implanted:Qty: 2 on 09/05/2023 by Juan Manuel Farnsworth MD at [facility] Screw Right: Maxilla MICK SNE[employer] LP [id number] / LOAD # 2 7 STERILIZED AUGUST 30, 2023 / Explanted Type Area Agricultural Systems Specialist Device Identifier Shelf Expiration Date Model / Serial / Lot Screw Er Mxdrv 2.3x7mm [id number] - Sload # 2 7 Sterilized August 30, 2023 Explanted:Qty: 1 on 09/05/2023 by Juan Manuel Farnsworth MD at [facility] Screw N/A: Maxilla MICK SNELL LP [id number] / LOAD # 2 7 STERILIZED AUGUST 30, 2023 / Screw Sd Maxdr 2.0x5mm [id number] - Sload # 2 7 Sterilized August 30, 2023 Explanted:Qty: 3 on 09/05/2023 by Juan Manuel Farnsworth MD at [facility] Screw N/A: Nuno SNELL LP [id number] / LOAD # 2 7 STERILIZED AUGUST 30, 2023 / Procedures Procedure Name Priority Date/Time Associated Diagnosis Comments MAMMO 3D RUTH SCREEN BILAT W OR WO CAD Routine 02/21/2020 1:07 PM INTERNAL CONTROL ANALYST Encounter for screening mammogram for malignant neoplasm of breast History of ductal carcinoma in situ (DCIS) of breast from Last 3 Months or Most Recently Relevant to Health Maintenance Results * MAMMO SCRN BILAT 3D RUTH W OR WO CAD (02/21/2020 1:07 PM INTERNAL CONTROL ANALYST) Anatomical Region Laterality Modality Breast Bilateral Mammography 02/21/2020 1:07 PM INTERNAL CONTROL ANALYST Addenda Addendum by Fiorella Hancock MD on 03/05/2020 7:28 AM INTERNAL CONTROL ANALYST Comparison is now made with previous films from [facility] dated 09/21/2016. There are post biopsy changes on the right. There are postlumpectomy changes in the upper outer left breast. There are no other significant interval changes. Recommend annual follow-up. OVERALL FINAL ASSESSMENT: ??BI-RADS CATEGORY 1: ??Negative. Impressions 02/21/2020 5:08 PM INTERNAL CONTROL ANALYST IMPRESSION: [facility] will request the patient's previous outside studies in order to assess for stability. An addendum will be provided after reviewing the outside exams. DICTATION LOCATION: [facility] 02/21/2020 5:08 PM INTERNAL CONTROL ANALYST BILATERAL FULL-FIELD DIGITAL SCREENING MAMMOGRAM WITH CAD WITH TOMOGRAPHY DATE: 02/21/2020 1:07 PM HISTORY: Annual screening. Previous breast conservation therapy on the left for treatment of breast cancer and previous benign excisional biopsy in the upper-outer right breast. Annual follow-up. TECHNIQUE: Low-dose full-field digital breast tomosynthesis examination was performed with 2D and 3D acquisitions. Examination is read in conjunction with computer aided detection. COMPARISON: None. BREAST COMPOSITION: Heterogeneously dense, which limits the sensitivity of mammography. FINDINGS: Previous exams are currently unavailable. The patient's outside studies will be requested in order to assess for stability. OVERALL FINAL ASSESSMENT: ??BI-RADS CATEGORY 0 - Incomplete, needs comparison to prior mammograms. Procedure Note Sean Sebastian MD / Fiorella Hancock MD - 02/21/2020 BILATERAL FULL-FIELD DIGITAL SCREENING MAMMOGRAM WITH CAD WITH TOMOGRAPHY DATE: 02/21/2020 1:07 PM HISTORY: Annual screening. Previous breast conservation therapy on the left for treatment of breast cancer and previous benign excisional biopsy in the upper-outer right breast. Annual follow-up. TECHNIQUE: Low-dose full-field digital breast tomosynthesis examination was performed with 2D and 3D acquisitions. Examination is read in conjunction with computer aided detection. COMPARISON: None. BREAST COMPOSITION: Heterogeneously dense, which limits the sensitivity of mammography. FINDINGS: Previous exams are currently unavailable. The patient's outside studies will be requested in order to assess for stability. OVERALL FINAL ASSESSMENT: BI-RADS CATEGORY 0 - Incomplete, needs comparison to prior mammograms. IMPRESSION: [facility] will request the patient's previous outside studies in order to assess for stability. An addendum will be provided after reviewing the outside exams. DICTATION LOCATION: [facility] Almita Smallwood MD MAMMO ORDERABLES from Last 3 Months or Most Recently Relevant to Health Maintenance Advance Directives For more information, please contact: [phone] * Full Code (Latest Code Status on File) Date Activated Date Inactivated Comments 09/05/2023 10:26 PM 09/07/2023 3:21 PM * Full Code Date Activated Date Inactivated Comments 09/05/2023 12:06 PM 09/05/2023 10:26 PM Care Teams Coverage Specialist Rn Relationship Specialty Start Date End Date Almita Smallwood MD [address] [place] [address] PCP - General Internal Medicine 03/14/18
--- OUTSIDE RECORDS SUMMARY | 2024-04-21 12:22 | XMS_ITS | Encounter Summary ---
Author Organization [facility] Address [address] [place] [address] Care Team Providers Care Director Of Donor Relations Name Role Phone Almita Smallwood MD Primary Care Provider + Encounter Details Date Type Department Care Team (Late st Contact Info) Description 12/27/2023 External Device Data [facility] Provider, Abstract [...] on filedocumented in this encounter Care Teams Director Of Donor Relations Relationship Specialty Start Date End Date Almita Smallwood MD [address] [place] [address] PCP - General Internal Medicine 03/14/18 documented as of this encounter
--- OUTSIDE RECORDS SUMMARY | 2024-04-21 12:22 | XMS_ITS ---
Author Organization [facility] Address [address] [place] [address] Care Team Providers Care Cabin Outfitter Name Role Phone Almita Smallwood MD Primary Care Provider + Active Problems Problem Noted Date Diagnosed Date Centrilobular emphysema 06/06/2020 Multiple idiopathic cysts of lung 06/06/2020 Asthma, chronic, mild persistent, uncomplicated 06/06/2020 Personal history of tobacco use 04/20/2020 Recurrent sinusitis 04/20/2020 Other dietary vitamin B12 deficiency anemia 08/2018 Lymphadenopathy, axillary 10/02/2018 Inversion, nipple 06/30/2018 [...] malignancy. Assessment & Plan (02/25/2020 8:08 AM BINDING DYER): I have explained to her that she [...] her pharmacy. She knows to contact her shank stapler should she develop any vaginal bleeding. Will plan to see her every 6 months. Advised her to do monthly breast examinations and yearly mammograms and to contact us or her breast surgeon should she notice any abnormality on her breast exam. She verbalized understanding of today's discussion, was satisfied with the office visit, and had no further questions. Current Oncology Plans No current plan information found. Past Plans No past plan information found. Radiation Treatments * No radiation treatments are documented for this patient in [facility]. Treatments may have been administered in another system. Lifetime Dose Tracking * Chemical Lifetime Dose Automatic Entry Manual Entr y Effective Dose 9.47 mSv 9.47 mSv 0 mSv Total DLP 1,371.45 DLP 1,371.45 DLP 0 DLP CTDIvol Max 77.42 mGy 77.42 mGy 0 mGy CTDIvol Min 44.7 mGy 44.7 mGy 0 mGy Resolved Problems Problem Noted Date Diagnosed Date Resolved Date Lung, cysts, congenital 04/20/202005/19
--- OUTSIDE RECORDS SUMMARY | 2024-04-21 12:23 | XMS_ITS | Encounter Summary ---
Author Organization [facility] Address [address] [place] [address] Care Team Providers Care Frankfurter Inspector Name Role Phone Almita Smallwood MD Primary Care Provider + Encounter Details Date Type Department Care Team (Late st Contact Info) Description 08/16/2023 External Device Data [facility] Provider, Abstract NO ADDRESS ON FILE Social History Tobacco Use Types Packs/Day Years Used Date Smoking Tobacco: Former Cigarettes 2 20 0 01/07/1985 - 01/07/2005 Smokeless Tobacco: Never Alcohol Use Standard Drinks/Week Comments Yes 0 (1 standard drink = 0.6 oz pur e alcohol) occasional Food Insecurity Answer Date Recorded Social/Environmental Concerns [...] on filedocumented in this encounter Care Teams Frankfurter Inspector Relationship Specialty Start Date End Date Almita Smallwood MD [address] [place] [address] PCP - General Internal Medicine 03/14/18 documented as of this encounter
--- OUTSIDE RECORDS SUMMARY | 2024-04-21 12:23 | XMS_ITS | Encounter Summary ---
Author Organization [facility] Address [address] [place] [address] Care Team Providers Care Information Manager Name Role Phone Almita Smallwood MD Primary Care Provider + Reason for Visit * Auth/Cert (Routine) Specialty Diagnoses / Procedures Referred By Tati campos Referred To Contact Perioperative Diagnoses MAXILLARY HYPOPLASIA Procedures NC RCNSTJ MIDFACE LEFORT I 2 PIECES W/O BONE GRAFT NC RCNSTJ MNDBLR RAMI&/BDY SGTL SPLT W/INT RGD FI NC IMPRESSION & PREPARATION ORAL SURGICAL SPLINT LEFORT OSTEOTOMY Juan Manuel Farnsworth MD [address] [place] [address] [facility] Or [address] [place] [address] Referral ID Status Reason Start Date Expiration Date Visits Re quested Visits Authorized [id number] 1 1 Encounter Details Date Type Department Care Team (Late st Contact Info) Description 09/05/2023 1:59 PM CDT Anesthesia Event [facility] Operating Room [address] [place] [address] Karyn Flores MD [address] [place] [address] Anesthesia Record Procedure Summary Procedure Name Responsible Anesthesiologist Anesthesia Start Time Anesthesia Stop Time LEFORT OSTEOTOMY (Face) Karyn Flores MD 09/05/23 1359 09/05/23 1912 Events Date Time Event Comment 09/05/2023 1310 1359 An Start 1404 AN Equip Check Anesthesia eq uipment and materials checked in accordance with local policy. 1404 An Start Data 1404 Pre-Induction Immediate pre- induction anesthetic assessment performed. Vital signs as noted on graphic. 1404 In Room This event disp lays the In Room time documented in the Surgical Log. Deleting this event will not remove it from the log but will remove it from the Grid and Graph timeline. 1409 An Induction 1412 An Intubation 1431 Anesthesia Ready 1436 Procedure Start This event d isplays the Procedure Start time documented in the Surgical Log. Deleting this event will not remove it from the log but will remove it from the Grid and Graph timeline. 1512 Quick Note Hypotension req uested by surgeon 185 Throat Pack Removed 185 Procedure Stop This event di splays the Procedure Stop time documented in the Surgical Log. Deleting this event will not remove it from the log but will remove it from the Grid and Graph timeline. 1859 An Extubation Emergence unev entful Awake, spontaneous respirations. Adequate muscle strength demonstrated Adequate tidal volume. Orapharynx suctioned. Extubated with positive pressure ventilation. 1907 Out of Room This event disp lays the Out of Room time documented in the Surgical Log. Deleting this event will not remove it from the log but will remove it from the Grid and Graph timeline. 1907 an stop data 191 An Stop 191 Hand-off to Receiving Clinic rosemarie Post-Anesthetic transfer of care report elements to appropriate post-anesthesia recovery environment completed in accordance with procedure. Meds Name Total MCPM - midazolam PF (VERSED) 1 mg/mL inj ection 2 mg fentaNYL (SUBLIMAZE) PF 50??mcg/mL injec tion 280 mcg propofol (DIPRIVAN) 10??mg/mL injection 1,374.7 mg lidocaine PF (XYLOCAINE MPF) 2% injectio n 2.5 mL dexAMETHasone (DECADRON) 4 mg/mL injecti on 12 mg diphenhydrAMINE (BENADRYL) 50 mg/mL inje ction 25 mg ondansetron (ZOFRAN) 4??mg/2 mL injectio n 4 mg famotidine (pf) (PEPCID) 20 mg/2 mL inje ction 20 mg HYDROmorphone (DILAUDID) 2 mg/mL injecti on 1 mg succinycholine (ANECTINE) 140 mg/7 mL iv syringe 60 mg phenylephrine 1 mg/10 mL (100 mcg/mL) in jection 500 mcg ceFAZolin in sterile water ( ANCEF) 2 gram/20 mL IV Syringe (PREMIX) 2,000 mg 4,000 mg oxymetazoline (AFRIN) 0.05% nasal spray 2 [place] esmolol (BREVIBLOC) 10??mg/mL injection 40 mg labetalol (NORMODYNE;TRANDATE) 5??mg/mL injection 5 mg sodium chloride 0.9% infusion 1,000 mL lactated ringers infusion 1,700 mL * Agents Name N2O Air Sevoflurane % Sevoflurane O2 N2O Inspired N2O O2 * Blood No blood administrations on file. Lines, Drains, and Airways Type Details Placement Removal Peripheral IV Orientation: Left, Posterior; Location: Wrist; Device: Angiocath; Gauge: 20 gauge; Needle Length: 1 in length; Insertion Attempts: 1; Patient Tolerance: tolerated well 09/05/23 1215 by Ilsa Granados RN Peripheral IV Orientation: Left; Location: Hand; Device: Angiocath; Gauge: 16 gauge; Insertion Attempts: 1 09/05/23 1417 by Evangelina Connell CRNA Endotracheal Airway Type: NT Tube; Cuff Pressure: cuff inflated; Size: 6; Site: right nostril; Attempts: 1; FOV: I; cm: 27; Device: Straight Blade; Blade: 2; Secured: secured with tape; Verification: Auscultated bilateral breath sounds, Equal chest movement, Continuous waveform capnography 09/05/23 1412 by Evangelina Connell, DISPUTE RESOLUTION ANALYST 09/05/23 1859 by Eric López AA-C ART Line Orientation: Left:; Location: radial artery; Size (Ga): 20 Ga; Removal Interventions: direct pressure 09/05/23 1425 by Evangelina Connell, DISPUTE RESOLUTION ANALYST 09/05/23 203 by Warner Mccormack, JUDI Indwelling Urethral Catheter 09/05/23; 1430; Indwelling double lumen catheter; 16 Fr; 1; 10; 10; 09/05/23; 1900 09/05/23 1430 by Sarika Bustillo RN 09/05/23 1900 by Kurt Ricci RN Incision 09/05/23; 1719; surgical incision; gum; 09/08/23; 0106 09/05/23 1719 by Kurt Ricci RN 09/08/23 0106 by PROVIDER, DISCHARGE PATIENT documented in this encounter Social History Tobacco [...] of this encounter OR Notes * Anesthesia Post-Op Follow-up Note - Clare Fowler RN - 09/06/2023 12:17 PM CDT 09/06/2023 12:17 PM Lisa Hermosillo No apparent Anesthesia related complications Clare Fowler RN * Anesthesia Postprocedure Evaluation - Russell Valdez MD - 09/05/2023 8:31 PM CDT Phase I Postanesthesia Evaluation Including Modified Ayden Score Patient seen and evaluated: Modified Ayden Score: Score: 8 (09/05/231949) COMMENTS: No apparent Anesthesia related complications RESPIRATORY FUNCTION: Respiration: able to breath and cough freely (09/05/231949) [2=able to breathe and cough freely, 1=dyspnea, limited breathing or tachypnea, 0=apnea or mechanicventilator] O2 Saturation: needs O2 inhalation to maintain O2 saturation greater than 90% (09/05/231949) [2=able to maintain O2 saturation greater than 92% on room air, 1=needs O2 inhalation to maintain O2 saturation greater than 90%, 0=O2 saturation less than 90% even with O2 supplement] Resp: 16 (09/05/232101)SpO2: 95 % (09/05/232101) CARDIOVASCULAR FUNCTION: Heart Rate: 84 bpm (09/05/232101) BP: (!) 115/45 (09/05/232029) Circulation: BP within 20% of preanesthetic level (09/05/231949) [2=BP within 20% of preanesthetic level, 1=BP within 20-49% of preanesthetic level, 0=BP within 50%of preanesthetic level] MENTAL STATUS, NEURO, ACTIVITY: PATIENT PARTICIPATION IN EVALUATION:yes Consciousness: arousable on calling (09/05/231949) [2=fully awake, 1=arousable on calling, 0=not responding] Activity: able to move 4 extremities voluntarily or on command (09/05/231949) [2=able to move 4 extremities voluntarily or on command, 1=able to move 2 extremities voluntarily or on command, 0=unable to move extremities voluntarily or on command] TEMPERATURE: Temp: 36.7 ??C (09/05/232055) PAIN: Pain Rating: Rest: 0 (09/05/231216) Presence of Pain: denies pain/discomfort (09/05/232101) NAUSEA AND VOMITING: no nausea and no vomiting POSTOPERATIVE HYDRATION: well hydrated Intake/Output Summary (Last 24 hours) at 09/05/20232118 Last data filed at 09/05/2023 1911 Gross per 24 hour Intake 2700 ml Output 420 ml Net 2280 ml Russell Valdez MD 09/05/2023 9:19 PM Post Anesthesia Evaluation Vitals: Vitals Value Taken Time BP 115/45 09/05/232029 Temp 36.7 ??C 09/05/232055 Resp 16 09/05/232101 SpO2 95 % 09/05/232101 Pulse 85 09/05/232101 Heart Rate 84 bpm 09/05/232101 Pain Rating: Pain Rating: Rest: 0 (09/05/231216) Presence of Pain: denies pain/discomfort (09/05/232101) Anesthesia Post Evaluation No notable events documented. Russell Valdez MD * Anesthesia Handoff - Eric López AA-C - 09/05/2023 7:12 PM CDT Post-Anesthetic transfer of care report elements to appropriate post-anesthesia recovery environment completed in accordance with procedure. I completed my handoff to the receiving nurse during which we: 1. Identified the patient 2. Identified the responsible provider 3. Reviewed the pertinent medical history 4. Discussed the surgical course 5. Reviewed intra-op anesthesia management and issues during anesthesia 6. Set expectations for post-procedure period 7. Orders as necessary and appropriate for continuation of care are present in Epic. 8. Allowed opportunity for questions and acknowledgement of understanding. Vital Signs: Vitals Value Taken Time BP 158/68 09/05/231999 Temp 37.1 ??C 09/05/23 1907 Resp 17 09/05/232010 SpO2 94 % 09/05/232010 Pulse 73 09/05/232010 Heart Rate 74 bpm 09/05/232010 8:25 PM KENRICK Acevedo * Anesthesia Procedure Notes - Evangelina Connell CRNA - 09/05/2023 2:50 PM CDT Associated Order(s): Arterial Line Insertion Arterial Line Insertion Start Time: 09/05/2023 2:25 PM Patient location during procedure: OR Staffing Authorized by: Karyn Flores MD Performed by: Evangelina Connell CRNA time out called Patient was prepped and draped in usual sterile fashion Indications: multiple ABGs and hemodynamic monitoring Anesthetic total: 1 mL Patient sedated: yes Vitals: Vital signs were monitored during sedation. Hand hygiene performed prior to procedure Preparation: skin prepped with alcohol Skin prep agent dried: skin prep agent completely dried prior to procedure Patient position: flat Location: left radial Seldinger technique used Catheter size: 20 GNumber of attempts: 2 Successful placement: yes Assessment: blood return through port Procedure uneventful Post-procedure: line secured and dressing applied Comments: Right radial attempted by Dr. Flores. * Anesthesia Procedure Notes - Evangelina Connell CRNA - 09/05/2023 2:48 PM CDT Associated Order(s): Airway Airway Date/Time: 09/05/2023 2:12 PM Location: OR Plan: routine intubation Patient Identity Confirmed by: Armband Airway: not difficult Staffing Performed: BEATRICE Authorized by: Karyn Flores MD Performed by: Evangelina Connell CRNA Indications and Patient Condition: Indications for Airway Management: Anesthesia Sedation Level: general anesthesia Preoxygenated: yes Mask Difficulty Assessment: 1 - vent by mask Plan to extubate at end of case: Yes Final Airway Details: Final Airway Type: Endotracheal airway nasotracheal tube Cuffed: Yes Technique Used for Successful ETT Placement: Direct laryngoscopy Devices/Methods Used in Placement: Straight blade Blade Type: straight blade Blade Size: 2 Insertion Site: Oral ETT Size (mm): 6.0 Measured from: Nares Tube secured with: Tape Placement Verified by: auscultation, end tidal CO2 and chest rise Cormack-Lehane Classification: Grade I - full view of glottis Number of Attempts at Approach: 1 Additional Procedure Information: atraumatic and dentition unchanged Additional Comments: Afrin used in pre op by patient. Right nasal without difficulty. 8.5 nasal trumpet used to dilate right nares. * Anesthesia Preprocedure Evaluation - Karyn Flores MD - 09/05/2023 12:26 PM CDT Relevant Problems PULMONARY (+) Asthma, chronic, mild persistent, uncomplicated (+) Centrilobular emphysema Other (+) Lymphadenopathy, axillary Anesthesia Evaluation Patient summary reviewed Airway Mallampati: II TM distance: >3 FB Neck ROM: full Dental Comment: braces Pulmonary - normal exam breath sounds clear to auscultation (+) COPD, asthma Cardiovascular - negative ROS and normal exam Rhythm: regular Rate: normal Neuro/Psych - negative ROS GI/Hepatic/Renal (+) chronic renal disease (kidney stones) Endo/Other Comments: H/o breast cancer- s/p mastectomy Abdominal Anesthesia History No history of anesthetic complications. LABS Lab Results Component Value Date WBC 4.6 10/15/2021 HGB 11.8 08/12/2023 HCT 37.2 08/12/2023 PLT 182 10/15/2021 MCV 94.9 10/15/2021 Lab Results Component Value Date NA 142 08/12/2023 K 4.2 08/12/2023 CL 105 08/12/2023 CO2 26 08/12/2023 CA 9.6 08/12/2023 BUN 12 08/12/2023 CREAT 1.07 (H) 08/12/2023 GLUCOSE 84 08/12/2023 ANIONGAP 11 08/12/2023 BCRATIO 9 10/15/2021 Pace note reviewed: Pre-Procedure Anesthesiology Consultation and Evaluation (PACE) Service 08/12/2023 9:29 AM Name: Lisa Hermosillo Age: 63 y.o. Sex: female CSN: [id number] Procedure(s): LEFORT OSTEOTOMY No Known Allergies Current Medications Current Outpatient Medications Medication Sig Dispense Refill fexofenadine (KIARRA) 180 mg tablet Take 180 mg by mouth daily. Bacillus coagulans (PROBIOTIC, B. COAGULANS, ORAL) Take by mouth. acetaminophen (TYLENOL) 325 mg tablet Take 325 mg by mouth every 4 hours as needed. NAPROXEN SODIUM, BULK, MISC by Misc.(Non-Drug; Combo Route) route. amitriptyline (ELAVIL) 10 mg tablet Take 10 mg by mouth daily at bedtime. rizatriptan benzoate (RIZATRIPTAN ORAL) Take by mouth. dextromethorphan-guaiFENesin (MUCINEX DM) 30-600 mg Tablet Sustained Release 12HR Take 1 Tablet by mouth every 12 hours. montelukast (SINGULAIR) 10 mg tablet TAKE 1 TABLET DAILY AT BEDTIME 90 Tablet 3 cholecalciferol, vitamin D3, (VITAMIN D3 ORAL) Take 1 Tablet by mouth daily. multivitamin (MULTIPLE VITAMINS DAILY ORAL) Take 2 Each by mouth daily. Gummy vitamins COLLAGEN MISC by Misc.(Non-Drug; Combo Route) route. TURMERIC ORAL Take by mouth. tiZANidine (ZANAFLEX) 2 mg Tablet Take 1 Tablet (2 mg) by mouth every 8 hours. 30 Tablet 0 tamoxifen (NOLVADEX) 20 mg tablet Take 1 Tablet by mouth daily. prasterone, DHEA, (DHEA ORAL) Take 1 Tablet by mouth daily. aspirin (ECOTRIN EC) 81 mg Tablet, Delayed Release (E.C.) Take 81 mg by mouth daily. cyclobenzaprine (FLEXERIL) 5 mg Tablet Take 1-2 Tablets (5-10 mg) by mouth 2 times daily as needed for Pain or Spasm. 30 Tablet 2 levocetirizine (Xyzal) 5 mg tablet Take 1 Tablet (5 mg) by mouth late in the day. 30 Tablet 1 azelastine (ASTELIN) 137 mcg/actuation nasal spray Administer 2 Sprays in each nostril 2 times daily. 30 mL 0 cyanocobalamin (VITAMIN B-12) 250 mcg Tablet Take 250 mcg by mouth daily. No current facility-administered medications for this encounter. Advised pt to take the following medications AM DOS: see AVS Advised pt to stop the following medications on :ASA/NSAIDs per surgeon Patient Active Problem List Diagnosis Date Noted Centrilobular emphysema 06/06/2020 Multiple idiopathic cysts of lung 06/06/2020 Asthma, chronic, mild persistent, uncomplicated 06/06/2020 Personal history of tobacco use 04/20/2020 Recurrent sinusitis 04/20/2020 Other dietary vitamin B12 deficiency anemia 03/22/2019 Lymphadenopathy, axillary 10/02/2018 Inversion, nipple 06/30/2018 Estrogen receptor positive status (ER+) 09/15/2017 SERM use (selective estrogen receptor modulator) 09/15/2017 Osteoporosis screening 09/15/2017 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 breast 01/07/2017 Overview Note: DCIS grade 2 with focal LCIS status post lumpectomy November 2016. Patient was started on tamoxifen, took herself off in 07/2019. Was followed by Dr. Jacek Laura initially. 10/2018 - Rt axillary LN bx - no evidence of malignancy. Past Medical History Past Medical History: Diagnosis Date Asthma 09/2018 Back pain Breast cancer Emphysema of lung H/O breast biopsy Kidney stones Motion sickness Temporomandibular disorder Past Surgical History Past Surgical History: Procedure Laterality Date HX BREAST LUMPECTOMY FOR CANCER Left 2016 HX KIDNEY STONE SURGERY HX LYMPH NODE BIOPSY Right Abnormal biopsy, lymph node REMOVED HX MASTECTOMY 11/2016 HX TUBAL LIGATION LITHOTRIPSY 03/2015 Social History Tobacco Use Smoking status: Former Current packs/day: 0.00 Average packs/day: 2.0 packs/day for 20.0 years (40.0 ttl pk-yrs) Types: Cigarettes Start date: 01/07/1985 Quit date: 01/07/2005 Years since quittin.6 Smokeless tobacco: Never Substance Use Topics Alcohol use: Yes Comment: occasional Family History Family History Problem Relation Name Age of Onset Cancer Father Leukemia leukemia Colon Cancer Mother Mom 1884 Other Sister Heart Disease Brother Healthy Brother No Known Problems Sister Healthy Sister No Known Problems Sister No Known Problems Sister Colon Cancer Sister Kallie No Known Problems Sister No Known Problems Sister Previous Anesthesia Problems/Concerns: No anesthesia problems/complications and History of motion sickness History of PONV No Review of Systems Cardiovascular: negative. Denies cp Respiratory: positive for asthma or mild emphysema noted on CT (2019) ,Snoring - No, DILAN - No Gastrointestinal: negative. Genitourinary:positive for h/o renal calculi, GFR 57 (2021) . Musculoskeletal: positive for maxillary hypoplasia Neurological: negative Endocrine negative Hepatic negative Exercise tolerance able to go up 2 flight of stairs w/o cp Tobacco quit 2004 Oncology: positive for h/o breast CA (2016) PHYSICAL EXAM BP 132/76 (BP Location: Right arm, Patient Position (BP): Sitting) Pulse 90 Ht 5' 5 (1.651 m) Wt 69.9 kg (154 lb) LMP 09/15/2014 (Within Months) SpO2 98% BMI 25.63 kg/m?? Weight: Weight: 69.9 kg (154 lb) (08/12/23 0921) Height: Ht Readings from Last 1 Encounters: 08/12/23 5' 5 (1.651 m) BMI: Body mass index is 25.63 kg/m??. General Appearance: Alert, oriented, no acute distress Airway: normal range of motion; Airway Class: II (soft palate, uvula, fauces visible); Special Considerations None Dentition: good Lungs: clear to auscultation bilaterally, normal respiratory effort Heart: regular rate and rhythm, S1, S2 normal, no murmur, click, rub or gallop Neuro: alert, oriented x 3, no defects noted in general exam. Extremities: extremities normal, atraumatic, no cyanosis or edema LABS Lab Results Component Value Date WBC 4.6 10/15/2021 HGB 10.8 (L) 10/15/2021 HCT 33.3 (L) 10/15/2021 PLT 182 10/15/2021 MCV 94.9 10/15/2021 Lab Results Component Value Date NA 141 10/15/2021 K 3.8 10/15/2021 CL 106 10/15/2021 CO2 28 10/15/2021 CA 9.1 10/15/2021 BUN 10 10/15/2021 CREAT 1.07 (H) 10/15/2021 GLUCOSE 86 10/15/2021 ANIONGAP 14 02/15/2020 BCRATIO 9 10/15/2021 No results found for: INR , PT , PROTIMEPOC No results found for: HCGURPOC , HCGQUALUR , HCGQUAL , HCGQUANT , HCGINTACT EKG: EKG not indicated today 2019 NSR Other Studies/Considerations: Cardiac studies PFT 2020 IMPRESSION: This is a technically adequate study. The Flow Volume Loop has a normal pattern Nomal Pulmonary Function Study Stress echo 2019 - Stress: Functional capacity was normal. - Stress ECG conclusions: The stress ECG was negative for ischemia. - Stress echo: There was no echocardiographic evidence for stress-induced ischemia. - Baseline: LV global systolic function was normal. Impressions: Normal Stress Echocardiogram. Risks/Alternatives discussed. Questions solicited and answered. Yes Postop pain management discussed yes Smoking/Tobacco Counseling: None Recommendations:None ATTESTATIONS Prescriptions Prior to Admission (Not in a hospital admission) I obtained, updated or reviewed the patient's current medications including dosage, frequency, and route of administration. This information was obtained directly from the patient or customer development representative or caregiver or another available healthcare resource and updated in [employer] EMR. Social History Tobacco Use Smoking Status Former Current packs/day: 0.00 Average packs/day: 2.0 packs/day for 20.0 years (40.0 ttl pk-yrs) Types: Cigarettes Start date: 01/07/1985 Quit date: 01/07/2005 Years since quittin.6 Smokeless Tobacco Never Patient screened for tobacco use and identified as a Non-User of tobacco. REPORT AND NECESSARY FOLLOW-UP History and physical performed in [facility]; tests (ECG, blood work) reviewed. Abnormal Results Found: no Further Testing or Evaluation Required: no Final PACE Center Review: May proceed with procedure/surgery: yes Stop bang score is 1 Based on a STOP-BANG score of 0-2 the patient is deemed low risk for DILAN and there is no follow-up,education nor interventions needed. Evaluation and management of patient, which requires a medically appropriate history and/or examination:93504 - New (15-29 minutes total time) - straightforward medical decision making I spent 18 minutes today related to the care of this patient, including: Preparing to see the patient (e.g. review of tests), obtaining and/or reviewing separately obtainedhistory, performing an examination and/or evaluation, counseling and educating the patient/family/caregiver, documenting clinical information in the record, care coordination, decision-making regarding suitability for proceeding with surgical procedure, and ordering medications, tests, or procedures SYLVAIN Buckley I, Brandy Murray MD, attest that I have reviewed the Advanced Practitioner's note - including thehistory, documented findings, assessment, and plan. I agree with the plan as documented except where noted. Brandy Murray MD Anesthesia Plan ASA Final: 2 General Intravenous induction NPO status > 8 hours Anesthetic plan and risks discussed with Patient and Patient Designated Gas Technician. Use of blood products: consented to blood products. Plan discussed with Animation Director and Surgeon/Proceduralists. Post-op Pain Control Plan to use IV or IM medication, Per surgeon and Oral medication for post-op pain control. Plan for postoperative opioid use Smoking Compliance patient did not smoke on day of surgery documented in this encounter Plan of Treatment Not on file documented as of this encounter Procedures Procedure Name Priority Date/Time Associated Diagnosis Comments NC ANES INSERT CATH, ART, PERCUT, SHORTTERM Routine 09/05/2023 2:50 PM CDT NC ANES INSERT ENDOTRACHEAL AIRWAY Routine 09/05/2023 2:12 PM CDT documented in this encounter Results * NC ANES INSERT CATH, ART, PERCUT, SHORTTERM (09/05/2023 2:50 PM CDT) Narrative Evangelina Connell CRNA - 09/05/2023 2:50 PM CDT Evangelina Connell CRNA ? 09/05/2023 ??2:50 PM Arterial Line Insertion Start Time: 09/05/2023 2:25 PM Patient location during procedure: OR Staffing Authorized by: Karyn Flores MD ?? Performed by: Evangelina Connell CRNA time out called Patient was prepped and draped in usual sterile fashion Indications: multiple ABGs and hemodynamic monitoring Anesthetic total: 1 mL Patient sedated: yes Vitals: Vital signs were monitored during sedation. Hand hygiene performed prior to procedure Preparation: skin prepped with alcohol Skin prep agent dried: skin prep agent completely dried prior to procedure Patient position: flat Location: left radial Seldinger technique used Catheter size: 20 GNumber of attempts: 2 Successful placement: yes Assessment: blood return through port Procedure uneventful Post-procedure: line secured and dressing applied Comments: Right radial attempted by Dr. Flores. Karyn Flores MD PROCEDURE/MINOR RAY GICAL ORDERABLES * NC ANES INSERT ENDOTRACHEAL AIRWAY (09/05/2023 2:12 PM CDT) Narrative Evangelina Connell CRNA - 09/05/2023 2:12 PM CDT Evangelina Connell CRNA ? 09/05/2023 ??2:50 PM Airway Date/Time: 09/05/2023 2:12 PM Location: OR Plan: routine intubation Patient Identity Confirmed by: ??Armband Airway: not difficult Staffing Performed: DISPUTE RESOLUTION ANALYST Authorized by: Karyn Flores MD ?? Performed by: Evangelina Connell CRNA Indications and Patient Condition: ??Indications for Airway Management: ??Anesthesia ??Sedation Level: general anesthesia ??Preoxygenated: yes ?Mask Difficulty Assessment: ??1 - vent by mask ??Plan to extubate at end of case: Yes ?? Final Airway Details: ??Final Airway Type: ??Endotracheal airway ??nasotracheal tube ??Cuffed: Yes ?Technique Used for Successful ETT Placement: ??Direct laryngoscopy ??Devices/Methods Used in Placement: ??Straight blade ??Blade Type: straight blade ??Blade Size: ??2 ??Insertion Site: ??Oral ??ETT Size (mm): ??6.0 ??Measured from: ??Nares ??Tube secured with: ??Tape ??Placement Verified by: auscultation, end tidal CO2 and chest rise ?Cormack-Lehane Classification: ??Grade I - full view of glottis ??Number of Attempts at Approach: ??1 Additional Procedure Information: atraumatic and dentition unchanged Additional Comments: ?? Afrin used in pre op by patient. Right nasal without difficulty. 8.5 nasal trumpet used to dilate right nares. Karyn Flores MD PROCEDURE/MINOR RYA GICAL ORDERABLES documented in this encounter Visit Diagnoses Not on filedocumented in this encounter Administered Medications Inactive Administered Medications - up to 3 most recent administrations Medication Order MAR Action Action Date Dose Rate Site ceFAZolin in sterile water (ANCEF) 2 gram/20 mL IV Syringe (PREMIX) 2,000 mg 2,000 mg, IV, PRE-PROCEDURE ONCE, 1 dose, Starting on Tue09/05/23 at 1206, Until Tue09/05/23 at 1828, Routine, Pre-op, Antibiotic Indication: Surgical prophylaxis Given 09/05/2023 6:28 PM CDT 2,000 mg Given 09/05/2023 2:30 PM CDT 2,000 mg dexAMETHasone (DECADRON) 4 mg/mL injection IV, INTRA-PROCEDURE PRN, Starting on Tue09/05/23 at 1442, Until Tue09/05/23 at 2018, Routine, Anesthesia Intra-op Given 09/05/2023 2:42 PM CDT 12 mg diphenhydrAMINE (BENADRYL) injection IV, INTRA-PROCEDURE PRN, Starting on Tue09/05/23 at 1442, Until Tue09/05/23 at 2018, Routine, Anesthesia Intra-op Given 09/05/2023 2:42 PM CDT 25 mg esmoloL (BREVIBLOC) 100 mg/10 mL (10 mg/mL) injection IV, INTRA-PROCEDURE PRN, Starting on Tue09/05/23 at 1446, Until Tue09/05/23 at 2018, Routine, Anesthesia Intra-op Given 09/05/2023 3:08 PM CDT 20 mg Given 09/05/2023 2:46 PM CDT 20 mg famotidine PF (PEPCID) 20 mg/2 mL injection IV, INTRA-PROCEDURE PRN, Starting on Tue09/05/23 at 1442, Until Tue09/05/23 at 2018, Routine, Anesthesia Intra-op Given 09/05/2023 2:42 PM CDT 20 mg fentaNYL PF (SUBLIMAZE) 50 mcg/mL injection IV, INTRA-PROCEDURE PRN, Starting on Tue09/05/23 at 1408, Until Tue09/05/23 at 2018, Routine, Anesthesia Intra-op Given 09/05/2023 5:14 PM CDT 100 mcg Given 09/05/2023 3:11 PM CDT 100 mcg Given 09/05/2023 2:08 PM CDT 80 mcg HYDROmorphone (DILAUDID) 2 mg/mL injection IV, INTRA-PROCEDURE PRN, Starting on Tue09/05/23 at 1439, Until Tue09/05/23 at 2018, Routine, Anesthesia Intra-op Given 09/05/2023 2:39 PM CDT 1 mg labetaloL (NORMODYNE;TRANDATE) 5 mg/mL injection IV, INTRA-PROCEDURE PRN, Starting on Tue09/05/23 at 1511, Until Tue09/05/23 at 2018, Routine, Anesthesia Intra-op Given 09/05/2023 3:11 PM CDT 5 mg lactated ringers infusion IV, at 150 mL/hr, PRE-PROCEDURE CONTINUOUS, Starting on Tue09/05/23 at 1215, Until Tue09/05/23 at 2215, Routine New Bag 09/05/2023 3:33 PM CDT Continue from Pre-Op 09/05/2023 1:59 PM CDT 150 mL/hr New Bag 09/05/2023 12:15 PM CDT 150 mL/hr lidocaine PF 2% (XYLOCAINE MPF) injection Infiltration, INTRA-PROCEDURE PRN, Starting on Tue09/05/23 at 1407, Until Tue09/05/23 at 2018, Routine, Anesthesia Intra-op Given 09/05/2023 2:07 PM CDT 2.5 mL midazolam (PF) (VERSED) injection IV, INTRA-PROCEDURE PRN, Starting on Tue09/05/23 at 1359, Until Tue09/05/23 at 2018, Routine, Anesthesia Intra-op Given 09/05/2023 1:59 PM CDT 2 mg ondansetron (ZOFRAN) 4 mg/2 mL injection IV, INTRA-PROCEDURE PRN, Starting on Tue09/05/23 at 1849, Until Tue09/05/23 at 2018, Routine, Anesthesia Intra-op Given 09/05/2023 6:49 PM CDT 4 mg oxymetazoline (AFRIN) 0.05 % nasal spray Both Nostrils, INTRA-PROCEDURE PRN, Starting on Tue09/05/23 at 1359, Until Tue09/05/23 at 2018, Routine, Anesthesia Intra-op Given 09/05/2023 2:08 PM CDT 1 [place] Given 09/05/2023 1:59 PM CDT 1 [place] phenylephrine syringe IV, INTRA-PROCEDURE PRN, Starting on Tue09/05/23 at 1534, Until Tue09/05/23 at 2018, Routine, Anesthesia Intra-op Given 09/05/2023 5:27 PM CDT 100 mcg Given 09/05/2023 5:22 PM CDT 50 mcg Given 09/05/2023 5:18 PM CDT 50 mcg propofoL (DIPRIVAN) injection IV, INTRA-PROCEDURE PRN, Starting on Tue09/05/23 at 1409, Until Tue09/05/23 at 2018, Anesthesia Intra-op Rate Change 09/05/2023 3:32 PM CDT 50 mcg/kg/min 20.7 mL/hr New Bag 09/05/2023 2:33 PM CDT 100 mcg/kg/min 41.4 mL/h r Given 09/05/2023 2:09 PM CDT 250 mg sodium chloride 0.9% infusion IV, INTRA-PROCEDURE CONTINUOUS PRN, Starting on Tue09/05/23 at 1430, Until Tue09/05/23 at 2018, Routine, Anesthesia Intra-op New Bag 09/05/2023 2:30 PM CDT succinylcholine Chloride (ANECTINE) 140 mg/7 mL (20 mg/mL) injection IV, INTRA-PROCEDURE PRN, Starting on Tue09/05/23 at 1409, Until Tue09/05/23 at 2018, Routine, Anesthesia Intra-op Given 09/05/2023 2:09 PM CDT 60 mg documented in this encounter Care Teams Information Manager Relationship Specialty Start Date End Date Almita Smallwood MD [address] [place] [address] PCP - General Internal Medicine 03/14/18 documented as of this encounter
--- OUTSIDE RECORDS SUMMARY | 2024-04-21 12:23 | XMS_ITS | Encounter Summary ---
Author Organization [facility] Address [address] [place] [address] Care Team Providers Care Slip Dumper Name Role Phone Almita Smallwood MD Primary [...] on filedocumented in this encounter Care Teams Slip Dumper Relationship Specialty Start Date End Date Almita Smallwood MD [address] [place] [address] PCP - General Internal Medicine 03/14/18 documented as of this encounter
--- OUTSIDE RECORDS SUMMARY | 2024-04-21 12:23 | XMS_ITS | Encounter Summary ---
Author Organization [facility] Address [address] [place] [address] Care Team Providers Care Button Tacker Name Role Phone Almita Smallwood MD Primary [...] on filedocumented in this encounter Care Teams Button Tacker Relationship Specialty Start Date End Date Almita Smallwood MD [address] [place] [address] PCP - General Internal Medicine 03/14/18 documented as of this encounter
--- OUTSIDE RECORDS SUMMARY | 2024-04-21 12:23 | XMS_ITS | Encounter Summary ---
Author Organization [facility] Address [address] [place] [address] Care Team Providers Care Livestock Rancher Name Role Phone Almita Smallwood MD Primary Care Provider + Reason for Visit * Auth/Cert (Routine) Specialty Diagnoses / Procedures Referred By Tati t Referred To Contact Perioperative Diagnoses MAXILLARY HYPOPLASIA Procedures SD RCNSTJ MIDFACE LEFORT I 2 PIECES W/O BONE GRAFT SD RCNSTJ MNDBLR RAMI&/BDY SGTL SPLT W/INT RGD FI SD IMPRESSION & PREPARATION ORAL SURGICAL SPLINT LEFORT OSTEOTOMY Juan Manuel Farnsworth MD [address] [facility] [address] [place] [address] [place] [address] Referral ID Status Reason Start Date Expiration Date Visits Re quested Visits Authorized [id number] 1 1 Encounter Details Date Type Department Care Team (Late st Contact Info) Description 09/05/2023 1:13 PM CDT - 09/05/2023 7:02 PM CDT Surgery [facility] Operating Room [address] [place] [address] Juan Manuel Farnsworth MD [address] [facility] [address] [place] [address] LEFORT OSTEOTOMY Surgery Details Date/Time Status Location OR Service Patient Class Case Class Case Type Trauma Case? 09/05/2023 1:13 PM Posted [facility] OR MAIN OR 23 Oralmaxillofacial Surgical OP/Extende d Care Elective No Panel 1 Procedure LRB Anes Op Region Wound Class Comments LEFORT OSTEOTOMY N/A General Face Clean-I , BILATERAL SAGITTAL SPLIT & SURGICAL STENTS, REQ 1300 Surgeon Surgeon Role Service Panel Juan Manuel Farnsworth MD Primary Oralmaxillofacial 1 Jaime Navas DMD Assisting Oralmaxillofacial 1 Case Notes ANTHEM--[id number] documented in this encounter Social History Tobacco [...] Sign Reading Time Taken Comments Blood Pressure 116/59 09/05/2023 11:55 AM CDT Pulse 73 09/05/2023 11:55 AM CDT Temperature 36.1 ??C (97 ??F) 09/05/2023 11:55 AM CDT Respiratory Rate 17 09/05/2023 11:55 AM CDT Oxygen Saturation 95% 09/05/2023 11:55 AM CDT Inhaled Oxygen Concentration - - Weight 69 kg (152 lb 3.2 oz) 09/05/2023 11:55 AM CDT Height 165.1 cm (5' 5 ) 09/05/2023 11:55 AM CDT Body Mass Index 25.33 09/05/2023 11:55 AM CDT documented in this encounter Discharge Instructions * Discharge Instructions* Jaime Navas DMD - 09/05/2023 1:23 PM CDT POSTOPERATIVE [...] rinse before beginning salt water rinses. ?? [place] your teeth regularly. ?? Mechanical and manual [...] than applesauce must be placed in a feed blender prior to eating. ?? Blenderized diet for six weeks. ?? Avoid fat free foods for optimum nutrition and to avoid weight loss. ?? Anything (even pizza and meats) that can be liquified in a feed blender will help in the dietary intake. Additional dietary supplements may include [place] Instant Breakfast, Ensure, etc. Antibiotics: If you [...] while medicated. For constipation, you can buy [id number]-[id number] Colace/Docusate Sodium or a stool softener. Pain [...] contact us with questions or concerns at [phone] In the event of an emergency please contact emergency medical help. You may also contact the oral surgeon ironing machine operator by calling the hospital refinery operator vapor recovery unit at [phone] and requesting the oral surgeon ironing machine operator. An on-call oral surgeon is available for emergent issues 24hrsa day 7 days a week. Care plan: Follow-up appointment with at [facility] in days. For scheduling issues, please call [phone]. documented in this encounter Medications at Time [...] 09/07/2023 sodium chloride (OCEAN) 0.65 % Aerosol, [place] Administer 2 Sprays in each nostril every [...] with PRN medications. AxOx4. RA. Up ad azkia. Stable VS. Educated on follow up appointments and medications. documented in this encounter H&P Notes * Jaime Navas, YOSEPH - 09/05/2023 1:22 PM CDT I have reviewed the last H&P and examined the patient today and there are no changes. Jaime Navas DMD cargo bracer * Jaime Navas DMD - 08/29/2023 10:30 [...] 7:02 PM CDT Operative Report Lisa Hermosillo [id number] DOS: 09/05/23 Pre-operative Diagnosis: MAXILLARY HYPOPLASIA Mandibular [...] 1:200,000 epi infiltrated at surgical site for intermediate analgesia. Patient turned back over to anesthesia for emergence, extubation and transport to PACU with out complication. Sponge and needle counts correct. Findings: Good postop occlusion Specimens: None Implants: Implant Name Type Inv. Item Serial No. Tire Inspector Lot No. LRB No. Used Action PLATE LOC FX CRV SHRT N-CMPRSN [id number] - SSTERILIZED AUG 30 2023 Plate PLATE LOC FX CRV SHRT N-CMPRSN [id number] STERILIZED AUG 30 2023 MICK SNELL LP LOAD 27 N/A 2 Implanted SCREW LVL 1 CMF 2.0X7MM CROSSDRIVE TLTS [id number] - SSTERILIZED AUG 30 2023 Screw SCREW LVL 1 CMF 2.0X7MM CROSSDRIVE [facility] [id number] STERILIZED AUG 30 2023 MICK SNELL LP LOAD 27 N/A 8 Implanted SCREW SD MAXDR 2.0X7MM [id number] - SLOAD # 2 7 STERILIZED AUGUST 30, 2023 Screw SCREW SD MAXDR 2.0X7MM [id number] LOAD # 2 7 STERILIZED AUGUST 30, 2023 KLAlessia SNELL LP N/A 18 Implanted SCREW ER MXDRV 2.3X7MM [...] 30, 2023 Plate PLATE-L LP LT LNG .[id number] LOAD # 2 7 STERILIZED AUGUST 30, 2023 KLS CHANNING LP Left 1 Implanted Mini 100 degree L Plate Right Plate LINDAS CHANNING LP Right 1 Implanted Mini 100 degree L Plate Left Plate LINDAS CHANNING LP Left 1 Implanted Estimated Blood [...] to follow for discharge planning. JAKE Morel [id number] * Care Plan - Chitra Anderson RN - 09/05/2023 7:13 PM CDT Potential for pain related to surgical/procedural intervention Interventions: Assess level of pain/comfort utilizing verbal/nonverbal pain scales; assess culturalor rastafari indicators attached to pain; administer pain medications [...] 1:13 PM CDT MAXILLARY HYPOPLASIA Case Notes ANTHEM--[id number] documented in this encounter Results * POC LACTIC ACID (09/05/2023 2:39 PM CDT) LACTIC ACID POC 1.6 <=2.0 mmol/L 09/05/2023 2:39 PM CDT [facility] SPECIMEN SOURCE, GASES POC Arterial 09/05/2023 2:39 PM CDT [facility] COMMENT, GASES POC Responsible Clinical Caregiver notified 09/05/2023 2:39 PM CDT [facility] Blood 09/05/2023 2:39 PM CDT 09/05/2023 2:40 PM CDT Juan Manuel Farnsworth MD POINT OF CARE TESTIN Kym [facility] CLIA# [id number] [address] [place] [address] * (ABNORMAL) BLOOD GAS,(INCL. H+H, LYTES, GLUC) (09/05/2023 2:39 PM CDT) Pathologist [facility] PH BLOOD POC 7.38 7.35 - 7.45 09/05/2023 2:39 PM CDT [facility] PCO2 POC 42 35 - 48 mm Hg 09/05/2023 2:39 PM CDT [facility] PO2 POC 390(H) 83 - 108 mm Hg 09/05/2023 2:39 PM CDT [facility] TCO2 (CALC) POC 26(H) 19 - 24 mmol/L 09/05/2023 2:39 PM CDT [facility] HCO3 (CALC) POC 25 22 - 26 mmol/L 09/05/2023 2:39 PM CDT [facility] O2 SATURATION POC 100(H) 94 - 98 % 09/05/2023 2:39 PM CDT [facility] BASE EXCESS POC 0 -2 - 3 mmol/L 09/05/2023 2:39 PM CDT [facility] HEMOGLOBIN POC 10.4(L) 11.8 - 14.8 g/dL 09/05/2023 2:39 PM CDT [facility] HEMATOCRIT POC 31(L) 35 - 44 % 09/05/2023 2:39 PM CDT [facility] Comment:Estimated Value GLUCOSE POC 94 74 - 99 mg/dL 09/05/2023 2:39 PM CDT [facility] SODIUM POC 139 135 - 145 mmol/L 09/05/2023 2:39 PM CDT [facility] POTASSIUM POC 3.8 3.5 - 4.9 mmol/L 09/05/2023 2:39 PM CDT [facility] CHLORIDE POC 112(H) 98 - 107 mmol/L 09/05/2023 2:39 PM CDT [facility] CALCIUM IONIZED POC 5.0 4.7 - 5.1 mg/dL 09/05/2023 2:39 PM CDT [facility] PH TEMP CORRECT 7.38 7.35 - 7.45 09/05/2023 2:39 PM CDT [facility] PCO2 TEMP CORRECT 42 35 - 48 mm Hg 09/05/2023 2:39 PM CDT [facility] - . [facility] PO2 TEMP CORRECT 390(H) 83 - 108 mm Hg 09/05/2023 2:39 PM CDT [facility] SPECIMEN SOURCE, GASES POC Arterial 09/05/2023 2:39 PM CDT [facility] PATIENT'S TEMPERATURE POC 37.0 degrees 09/05/2023 2:39 PM CDT [facility] COMMENT, GASES POC Responsible Clinical Caregiver notified 09/05/2023 2:39 PM CDT [facility] Blood, arterial 09/05/2023 2 :39 PM CDT 09/05/2023 2:40 PM CDT Juan Manuel Farnsworth MD ABG ORDERABLES [facility]# [id number] [facility] [place] [address] * VERIFICATION BLOOD GROUP (09/05/2023 1:17 PM CDT) ABO GROUP A 09/05/2023 1:19 PM CDT [facility] RH (D) TYPE Negative 09/05/2023 1:19 PM CDT [facility] -- .[facility] Blood Venipuncture / Unknown 09/05/2023 1:17 PM CDT 09/05/2023 1:17 PM CDT Lauren Borrero MD BLOOD BANK ORD ERABLES [facility] ERLIN# [id number] [address] [place] [address] documented in this encounter Visit Diagnoses Not [...] Given 09/05/2023 11:07 PM CDT 10 mg BUPivacaine-EPINEPHrine (SENSORCAINE-EPINEPHRINE) 0.5 %-1:200,000 injection INTRA-PROCEDURE PRN, Starting on Tue09/05/23 at 1858, Until Tue09/05/23 at 1907, Routine, Intra-op Given 09/05/2023 6:58 PM CDT 10 mL Operative Site ceFAZolin (ANCEF) 1,000 mg in dextrose (iso-osmotic) [...] New Bag 09/05/2023 10:32 PM CDT 75 mL/hr lidocaine-EPINEPHrine (XYLOCAINE-EPI) 1 %-1:100,000 injection INTRA-PROCEDURE PRN, Starting on Tue09/05/23 at 1730, Until Tue09/05/23 at 1907, Routine, Intra-op Given 09/05/2023 6:57 PM CDT 10 mL Operative Site Given 09/05/2023 5:30 PM CDT 10 mL Op erative Site naloxone (NARCAN) 0.4 mg/mL injection 0.1-0.4 mg 0.1-0.4 mg, IV, SEE ADMIN INSTRUCTIONS, Starting on Tue09/05/23 at 1940, Until Tue09/07/23 at 1511, Routine, PACU ondansetron (ZOFRAN) 4 mg/2 mL injection 4 mg 4 mg, IV, POST-PROCEDURE ONCE PRN, 1 dose, Starting on Tue09/05/23 at 1941, Until Tue09/05/23 at 2204, Nausea/Emesis, Routine, PACU Given 09/05/2023 10: 04 PM CDT 4 mg oxyCODONE (ROXICODONE) tablet [...] Provider: LOCO Kuhn)2335 (Stopped - Provider: LOCO uKhn) 0538 (New Bag - Provider: LOCO Kuhn)0608 [...] Routine, PACU 2204 (Given - Provider: Warner Mccormack, JUDI) oxyCODONE (ROXICODONE) tablet 10 mg 10 mg, Oral, EVERY 4 HOURS PRN, Starting on Tue09/05/23 at 2226, Until Tue09/07/23 at 1511, Pain (See admin instructions), Routine oxyCODONE (ROXICODONE) tablet 5 mg 5 mg, Oral, EVERY 4 HOURS PRN, Starting on Tue09/05/23 at 2226, Until Tue09/07/23 at 1511, Pain (See admin instructions), [facility]ine [facility]: Amelia Uriarte LPN - Comment: Pt decided she didnt want it -returned to) 1055 (Given - Provider: Carol Washington RN) oxymetazoline (AFRIN) 0.05 % nasal spray 2 [place] 2 [place], Both Nostrils, EVERY 12 HOURS PRN, Starting on Tue09/05/23 at 2226, Until Tue09/07/23 at 1511, Congestion, Routine sodium chloride (OCEAN) 0.65 % nasal soln 2 [place] 2 [place], Both Nostrils, EVERY 2 HOURS PRN, Starting on Tue09/05/23 at 2226, Until Tue09/07/23 at 1511, Congestion, Routine documented in this encounter Care Teams Livestock Rancher Relationship Specialty Start Date End Date Almita Smallwood MD [address] [place] [address] PCP - General Internal Medicine 03/14/18 documented as of this encounter
--- OUTSIDE RECORDS SUMMARY | 2024-04-21 12:23 | XMS_ITS | Encounter Summary ---
Author Organization [facility] Address 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 Procedures CT SINUS FACIAL BONES WO CONTRAST CT HEAD MAXILLOFACIAL WO CONTRAST CHG CT HEAD/BRAIN W/O CONTRAST MATERIAL CHG CT MAXILLOFACIAL W/O CONTRAST MATERIAL Juan Manuel Farnsworth MD [address] [place] [address] [place] [address] [facility] [address] [place] [address] [place] [address] Referral ID Status Reason Start Date Expiration Date Visits Re quested Visits Authorized [id number] Closed 08/09/2023 09/08/2024 1 1 Encounter Details Date Type Department Care Team (Latest Contact Info) Description 08/12/2023 12:13 PM CDT - 08/12/2023 11:59 PM CDT Hospital Encounter [facility] Services [address] [place] [address] Juan Manuel Farnsworth MD [address] [place] [address] [place] [address] Discharge Disposition: Home or Self Care [...] 09/07/2023 sodium chloride (OCEAN) 0.65 % Aerosol, [place] Administer 2 Sprays in each nostril every [...] for 7 days. 14 Tablet 09/07/2023 09/14/2023 acetaminophen (TYLENOL) 325 mg tablet Take 325 mg by mouth every 4 hours as needed. 09/07/2023 documented as of this encounter Plan of Treatment Not on file documented as of this encounter Procedures Procedure Name Priority Date/Time Associated Diagnosis Comments CT SINUS FACIAL BONES WO CONTRAST Routine 08/12/2023 12:20 PM CDT Maxillary hypoplasia Mandibular hyperplasia documented in this encounter Results * CT SINUS FACIAL BONES WO CONTRAST (08/12/2023 12:20 PM CDT) Anatomical Region Laterality Modality Head Computed Tomogra phy 08/12/2023 12:2 3 PM CDT Impressions 08/12/2023 3:58 PM CDT IMPRESSION: ?? New right maxillary sinus mucosal thickening Temporomandibular joint osteoarthritis Scattered ethmoid sinus mucosal thickening The examination was performed with the adjustment of mA according to the patient size and/or the use of Iterative Reconstruction Technique. ?? DICTATION LOCATION: Location [address] [place] [address] 08/12/2023 3:[address] FACIAL BONES WITHOUT CONTRAST WITH RECONSTRUCTIONS ?? DATE: ??08/12/2023 12:20 PM HISTORY: See Diagnosis ??Maxillary hypoplasia; Mandibular hyperplasia COMPARISON: CT sinuses and facial bones July 03, 2020 TECHNIQUE: ??Helical axial CT of the facial bones with thin slices and multiplanar reconstructions was performed from forehead to neck. ?? FINDINGS: The frontal sinuses are clear. There is scattered ethmoid sinus mucosal thickening. Intracranial atherosclerotic vascular calcification is present in the carotid siphons. There is bilateral middle turbinate zion bullosa and bilateral Javon air cells. Mucosal thickening is present in the right maxillary sinus. Mastoid air cells are clear. No facial bone fractures are identified. The mandible is intact. Temporomandibular joint arthritis is present greater on the right. Cervical spondylosis is present. INCIDENTAL FINDINGS: ??None. Procedure Note Rachid Retana MD - 08/12/2023 CT FACIAL BONES WITHOUT CONTRAST WITH RECONSTRUCTIONS DATE: 08/12/2023 12:20 PM HISTORY: See Diagnosis Maxillary hypoplasia; Mandibular hyperplasia COMPARISON: CT sinuses and facial bones July 03, 2020 TECHNIQUE: Helical axial CT of the facial bones with thin slices and multiplanar reconstructions was performed from forehead to neck. FINDINGS: The frontal sinuses are clear. There is scattered ethmoid sinus mucosal thickening. Intracranial atherosclerotic vascular calcification is present in the carotid siphons. There is bilateral middle turbinate zion bullosa and bilateral Javon air cells. Mucosal thickening is present in the right maxillary sinus. Mastoid air cells are clear. No facial bone fractures are identified. The mandible is intact. Temporomandibular joint arthritis is present greater on the right. Cervical spondylosis is present. INCIDENTAL FINDINGS: None. IMPRESSION: New right maxillary sinus mucosal thickening Temporomandibular joint osteoarthritis Scattered ethmoid sinus mucosal thickening The examination was performed with the adjustment of mA according to the patient size and/or the use of Iterative Reconstruction Technique. DICTATION LOCATION: Location [address] [place] [address] Juan [address] F[address] MD CT ORDERABLES documented in this encounter Visit Diagnoses Not on filedocumented in this encounter Care Teams Dry Wall Installations Mechanic Relationship Specialty Start Date End Date Almita Smallwood MD [address] [place] [address] PCP - General Internal Medicine 03/14/18 documented as of this encounter
--- OUTSIDE RECORDS SUMMARY | 2024-04-21 12:24 | XMS_ITS | Encounter Summary ---
Author Organization [facility] Address [address] [place] [address] Care Team Providers Care Supervisor Scouring Pads Name Role Phone Almita Smallwood MD Primary Care Provider + Encounter Details Date Type Department Care Team (Late st Contact Info) Description 08/12/2022 Chart Note [facility] [address] [place] [id number] Nghia Will, Physical Therapist Social History Tobacco Use Types Packs/Day Years Used Date Smoking Tobacco: Former Cigarettes 2 20 0 01/07/1985 - 01/07/2005 Smokeless Tobacco: Never Alcohol Use Standard Drinks/Week Comments Yes 0 (1 standard drink = 0.6 oz pur e alcohol) occasional Sex and Gender Information Value Date Recorded Sex Assigned at Not on file Gender Identity Not on file Sexual Orientation Not on file documented as of this encounter Progress Notes * Nghia Will, Physical Therapist - 08/12/2022 3:10 PM CDT Physical Therapy Discharge Summary Patient: Lisa Hermosillo Date: 08/12/2022 Date of : 1960 Referring Provider: No ref. provider found Diagnosis: M54.41 (ICD-10-CM) - 724.2, 724.3 (ICD-9-CM) - Acute right-sided low back pain with right-sided sciatica Lisa Hermosillo was seen from 03/25/22 to 05/12/22 for a total of 5 visits with 1 cancellations and 0 no shows. This patient did not return for further therapy visits following the last session noted above, therefore a complete re-evaluation of status was not completed. Treatments consisted of: home exercise program, joint mobilization, manual therapy, pain management, patient/family education, plan of care, posture/body mechanics instruction, range of motion, stretching, and strengthening therapeutic exercises Therapeutic Exercise to increase strength, ROM, flexibility, stablization. Manual Treatments - soft/deep tissue massage, joint mobilization Objective Measurements: See progress Noyte on 04/29/22 Date and Last Pain Ratin05/12/22 6-7/10 yesterday, 1-2 now Home Exercise Program Last Updated On: Goals: STG's (Time Frame: 4 weeks)To be met by date: 04-25-22 1. Patient will demonstrate compliance and understanding of HEP to promote improved function and work toward set therapy goals. MEt 04-29-22 2. Pt's bilateral hamstring length will improve by 15 degrees to improve ability to bend at waist to tie her shoes with less lower back and LE pain.Progressing 04-29-22 3. Pt's bilateral hip flexor length will improve by 10 degrees or more to be able to stand for morethan 1 hour completing normal household tasks.Progressing 04-29-22 The patient discharged from therapy secondary to patient choice to discontinue therapy. Please contact me if you have any questions. Thank you for this referral. Nghia Will [facility] License #: [id number] [facility], [address], [address] [place], [place]. [id number] Fax documented in this encounter Plan of Treatment Not on file documented as of this encounter Visit Diagnoses Not on filedocumented in this encounter Care Teams Supervisor Scouring Pads Relationship Specialty Start Date End Date Almita Smallwood MD [address] [place] [address] PCP - General Internal Medicine 03/14/18 documented as of this encounter
--- OUTSIDE RECORDS SUMMARY | 2024-04-21 12:24 | XMS_ITS | Encounter Summary ---
Author Organization [facility] Address [address] [facility] Attn: Epic Prelude ADT [place] [address] Care Team Providers Care Family Life Counselor Name Role Phone Almita Smallwood MD Primary Care Provider + Encounter Details Date Type Department Care Team (Latest Contact Info) Description 04/02/2022 Travel Social History Tobacco Use Types Packs/Day Years Used Date Smoking Tobacco: Former Cigarettes 2 20 0 01/07/1985 - 01/07/2005 Smokeless Tobacco: Never Alcohol Use Standard Drinks/Week Comments Yes 0 (1 standard drink = 0.6 oz pur e alcohol) occasional Sex and Gender Information Value Date Recorded Sex Assigned at Not on file Gender Identity Not on file Sexual Orientation Not on file COVID-19 Exposure Response Date Recorded In the last 10 days, have yo u been in contact with someone who was confirmed or suspected to have Coronavirus/COVID-19? No / Unsure 04/02/2022 9:29 AM TELEPHONE AD TAKER documented as of this encounter Plan of Treatment Not on file documented as of this encounter Visit Diagnoses Not on filedocumented in this encounter Care Teams Family Life Counselor Relationship Specialty Start Date End Date Almita Smallwood MD [address] [place] [address] PCP - General Internal Medicine 03/14/18 documented as of this encounter
--- OUTSIDE RECORDS SUMMARY | 2024-04-21 12:24 | XMS_ITS | Encounter Summary ---
Author Organization [facility] Address [address] [place] [address] Care Team Providers Care Hunting Guide Name Role Phone Almita Smallwood MD Primary Care Provider + Reason for Referral * Physical Therapy (Routine) - Closed Specialty Diagnoses / Procedures Referred By Tati campos Referred To Contact Physical Therapy Diagnoses Acute right-sided low back pain with right-sided sciatica Zay Chen NP NO ADDRESS ON FILE Nghia Will Physical Therapist Referral ID Status Reason Start Date Expiration Date Visits Requested Visits Authorized [id number] Closed Performing Department to Schedule 03/25/2022 04/17/2023 57 60 [facility] Reason for Visit * Reason Comments Back Pain Encounter Details Date Type Department Care Team (Late st Contact Info) Description 03/04/2022 1:30 PM JIGGER [facility] Office Visit [facility] Internal Medicine - [address] [address] Zay Chen NP NO ADDRESS ON FILE Acute right-sided low back pain with right-sided sciatica (Primary Dx) Social History Tobacco Use Types [...] suspected to have Coronavirus/COVID-19? No / Unsure 03/04/2022 1:11 PM JIGGER [facility]ISAN documented as of this encounter Last Filed Vital Signs Vital Sign Reading Time Taken Comments Blood Pressure 132/74 03/04/2022 1:27 PM JIGGER ARTISAN Pulse 71 03/04/2022 1:27 PM JIGGER [facility]ISAN Temperature 36.7 ??C (98 ??F) 03/04/2022 1:27 PM JIGGER [facility]ISAN Respiratory Rate 18 03/04/2022 1:27 PM JIGGER ARTISAN Oxygen Saturation 98% 03/04/2022 1:27 PM JIGGER ARTISAN Inhaled Oxygen Concentration - - Weight 68.5 kg (151 lb 1.9 oz) 03/04/2022 1:27 P M JIGGER [facility] Height 167.6 cm (5' 6 ) 03/04/2022 1:27 PM JIGGER [facility]ISAN Body Mass Index 24.39 03/04/2022 1:27 PM JIGGER [facility]IS[facility] documented in this encounter Progress Notes * Zay Chen, OLIVIA - 03/04/2022 1:30 PM CST HPI: Lisa Hermosillo is a 62 y.o. female here for acute/problem focused visit Patient complains of right lower back pain radiates down to right leg, all the way to right foot for last couple years Pain is sharp, dull, at worst 8/10 Tingling and numbness to right lower leg Pain worsen in the morning Was going to Chiropractor with out any relief As referred to PT but never had done it Has not tried takign any medications Denies any trauma or pain Back painAnswers submitted by the patient for this visit: Lower Extremity Pain (Submitted on 03/02/2022) Chief Complaint: HPI LOWER EXTREMITY Location: leg Leg location: R leg Time since incident. Please include a number in the box.: 12 Months Did you have an injury?: No What is the quality of your pain?: aching, burning, tingling Where does you pain radiate to?: R flank, RLQ How severe is your pain?: moderate Onset quality: unable to specify How long does your pain last? Please include a number in the box.: 12 Months How has your pain progressed?: improving Prior injury to area?: no Pain relieved by :: heat, movement, muscle relaxant What makes your pain worse?: abduction, bearing weight Decreased range of motion: Yes fatigue: No muscle weakness: Yes Numbness: Yes Stiffness: Yes peripheral edema: Yes Tingling: Yes Medications: Current Outpatient Medications on File Prior to Visit Medication Sig Dispense Refill tamoxifen (NOLVADEX) 20 mg tablet Take 1 Tablet by mouth daily. cholecalciferol, vitamin D3, (VITAMIN D3 ORAL) Take 1 Tablet by mouth daily. prasterone, DHEA, (DHEA ORAL) Take 1 Tablet by mouth daily. aspirin (ECOTRIN EC) 81 mg Tablet, Delayed Release (E.C.) Take 81 mg by mouth daily. cyclobenzaprine (FLEXERIL) 5 mg Tablet Take 1-2 Tablets (5-10 mg) by mouth 2 times daily as needed for Pain or Spasm. 30 Tablet 2 montelukast (Singulair) 10 mg tablet Take 1 Tablet (10 mg) by mouth daily at bedtime. 90 Tablet 3 levocetirizine (Xyzal) 5 mg tablet Take 1 Tablet (5 mg) by mouth late in the day. 30 Tablet 1 azelastine (ASTELIN) 137 mcg/actuation nasal spray Administer 2 Sprays in each nostril 2 times daily. 30 mL 0 multivitamin (MULTIPLE VITAMINS DAILY ORAL) Take 2 Each by mouth daily. Gummy vitamins cyanocobalamin (VITAMIN B-12) 250 mcg Tablet Take 250 mcg by mouth daily. COLLAGEN MISC by Misc.(Non-Drug; Combo Route) route. TURMERIC ORAL Take by mouth. No current facility-administered medications on file prior to visit. Review of Systems Constitutional: Negative for fever and malaise/fatigue. Respiratory: Negative for cough and shortness of breath. Cardiovascular: Negative for chest pain, palpitations and leg swelling. Gastrointestinal: Negative for abdominal pain, diarrhea, nausea and vomiting. Genitourinary: Negative for frequency and urgency. Musculoskeletal: Positive for back pain and myalgias. Negative for neck pain. Skin: Negative for itching and rash. Neurological: Negative for dizziness and headaches. Objective: Physical Exam Vitals reviewed. Constitutional: Appearance: Normal appearance. Cardiovascular: Rate and Rhythm: Normal rate and regular rhythm. Pulses: Normal pulses. Heart sounds: Normal heart sounds. Pulmonary: Effort: Pulmonary effort is normal. Breath sounds: Normal breath sounds. Skin: General: Skin is warm. Neurological: General: No focal deficit present. Mental Status: She is alert and oriented to person, place, and time. Psychiatric: Mood and Affect: Mood normal. Behavior: Behavior normal. Assessment and Plan: ICD-10-CM ICD-9-CM 1. Acute right-sided low back pain with right-sided sciatica M54.41 724.2 XR LUMBAR SPINE 2 OR 3 VW 724.3 AMB REFERRAL TO PHYSICAL THERAPY diclofenac sodium (VOLTAREN) 75 mg Tablet, Delayed Release (E.C.) tiZANidine (ZANAFLEX) 2 mg Tablet Patient with right-sided low back pain, will obtain lumbar x-rays today. Prescription sent in for diclofenac and tizanidine to help with pain. Patient referred to physical therapy today. Patient educated about low back pain exercises and written instructions given on her AVS today Reviewed clinical history and symptoms with patient. Reviewed pathophysiology and management of condition in detail with patient, all questions answered. As today was a problem focused visit, there was not enough time to discuss routine health maintenance items. Patient encouraged to schedule for routine physical (if due) to discuss preventative health items and examination. Follow up - Call if symptoms fail to improve Tobacco Intervention She is not a tobacco user. Depression Screen Positive: PHQ-2 score >= 3 or PHQ-9 score >= 9 PHQ-2 Total: 0 (03/04/2022 1:00 PM) PHQ-9 Total: 0 (03/04/2022 1:00 PM) DEPRESSION PLAN OF CARE Her depression screen was negative. Blood Pressure BP Readings from Last 3 Encounters: 03/04/22 132/74 10/15/21 132/74 05/29/20 126/76 Pre-hypertensive BP reading systolic between 120 to 139 or diastolic between 80 to 89 and no diagnosis of hypertension. Patient instructed to recheck blood pressure within one year; discussed lifestyle changes including weight loss, reducing sodium intake, and increasing physical activity for bloodpressure control.. BMI PLAN OF CARE Normal BMI ranges: 18-64 yrs: > or = 18.5 and < 25 65 yrs and older: > or = 23 and < 30 Body mass index is 24.39 kg/m??. BMI within normal limits Zay Chen NP [facility] Primary Care [facility] documented in this encounter Miscellaneous Notes * Patient Instructions - Zay Chen NP - 03/04/2022 2:07 PM JIGGER [facility]AN Images from the original note were not included. Low Back Pain: Exercises Introduction Here are some examples of exercises for you to try. The exercises may be suggested for a condition or for rehabilitation. Start each exercise slowly. Ease off the exercises if you start to have pain. You will be told when to start these exercises and which ones will work best for you. How to do the exercises Press-up Lie on your stomach, supporting your body with your forearms. Press your elbows down into the floor to raise your upper back. As you do this, relax your stomach muscles and allow your back to arch without using your back muscles. As your press up, do not let your hips or pelvis come off the floor. Hold for 15 to 30 seconds, then relax. Repeat 2 to 4 times. Alternate arm and leg (bird dog) exercise Start on the floor, on your hands and knees. Tighten your belly muscles. Raise one leg off the floor, and hold it straight out behind you. Be careful not to let your hip drop down, because that will twist your trunk. Hold for about 6 seconds, then lower your leg and switch to the other leg. Repeat 8 to 12 times on each leg. Over time, work up to holding for 10 to 30 seconds each time. If you feel stable and secure with your leg raised, try raising the opposite arm straight out in front of you at the same time. [id number] exercise Lie on your back with your knees bent and your feet flat on the floor. Bring one knee to your chest, keeping the other foot flat on the floor (or keeping the other leg straight, whichever feels better on your lower back). Keep your lower back pressed to the floor. Hold for at least 15 to 30 seconds. Relax, and lower the knee to the starting position. Repeat with the other leg. Repeat 2 to 4 times with each leg. To get more stretch, put your other leg flat on the floor while pulling your knee to your chest. Curl-ups Lie on the floor on your back with your knees bent at a 90-degree angle. Your feet should be flat on the floor, about 12 inches from your buttocks. Cross your arms over your chest. If this bothers your neck, try putting your hands behind your neck(not your head), with your elbows spread apart. Slowly tighten your belly muscles and raise your shoulder blades off the floor. Keep your head in line with your body, and do not press your chin to your chest. Hold this position for 1 or 2 seconds, then slowly lower yourself back down to the floor. Repeat 8 to 12 times. Pelvic tilt exercise Lie on your back with your knees bent. Brace your stomach. This means to tighten your muscles by pulling in and imagining your belly button moving toward your spine. You should feel like your back is pressing to the floor and your hips and pelvis are rocking back. Hold for about 6 seconds while you breathe smoothly. Repeat 8 to 12 times. Heel dig bridging Lie on your back with both knees bent and your ankles bent so that only your heels are digging intothe floor. Your knees should be bent about 90 degrees. Then push your heels into the floor, squeeze your buttocks, and lift your hips off the floor until your shoulders, hips, and knees are all in a straight line. Hold for about 6 seconds as you continue to breathe normally, and then slowly lower your hips back down to the floor and rest for up to 10 seconds. Do 8 to 12 repetitions. Hamstring stretch in doorway Lie on your back in a doorway, with one leg through the open door. Slide your leg up the wall to straighten your knee. You should feel a gentle stretch down the back of your leg. Hold the stretch for at least 15 to 30 seconds. Do not arch your back, point your toes, or bend either knee. Keep one heel touching the floor and the other heel touching the wall. Repeat with your other leg. Do 2 to 4 times for each leg. Hip flexor stretch Kneel on the floor with one knee bent and one leg behind you. Place your forward knee over your foot. Keep your other knee touching the floor. Slowly push your hips forward until you feel a stretch in the upper thigh of your rear leg. Hold the stretch for at least 15 to 30 seconds. Repeat with your other leg. Do 2 to 4 times on each side. Wall sit Stand with your back 10 to 12 inches away from a wall. Lean into the wall until your back is flat against it. Slowly slide down until your knees are slightly bent, pressing your lower back into the wall. Hold for about 6 seconds, then slide back up the wall. Repeat 8 to 12 times. Follow-up care is a julian part of your treatment and safety. Be sure to make and go to all appointments, and call your doctor if you are having problems. It's also a good idea to know your test resultsand keep a list of the medicines you take. Where can you learn more? Go to https://www.[employer].net/patiented Enter Z938 in the search box to learn more about Low Back Pain: Exercises. Current as of: October 11, 2018 Content Version: 12.3 ?? [id number] [employer]. Care instructions adapted under license by your healthcare professional. If you have questions about a medical condition or this instruction, always ask your healthcare professional. These instructions may not represent the values of this healthcare organization. [employer] disclaims any warranty or liability for your use of this information. [facility] documented in this encounter Plan of Treatment Scheduled Referrals Name Type Priority Associated Diagnoses Orde r Schedule AMB REFERRAL TO PHYSICAL THERAPY Outpatient Referral Routine Acute right-sided low back pain with right-sided sciatica Ordered: 03/04/2022 documented as of this encounter Results * XR LUMBAR SPINE 2 OR 3 VW (03/04/2022 2:53 PM JIGGER ARTISAN) Anatomical Region Laterality Modality Spine Computed Radiogr aphy 03/04/2022 3:01 PM JIGGER ARTISAN Impressions 03/04/2022 3:16 PM JIGGER ARTISAN IMPRESSION: 1. No significant osseous abnormality. DICTATION LOCATION: Location [address] [place] [address] 03/04/2022 3:16 PM JIGGER ARTISAN XR LUMBAR SPINE 2 OR 3 VW DATE: 03/04/2022 2:53 PM HISTORY: Right-sided pain.. FINDINGS: The vertebral body heights are normal. No significant intervertebral disc space narrow. The facets are normal. The sacroiliac joints are unremarkable. Procedure Note Steven Asencio MD - 03/04/2022 XR LUMBAR SPINE 2 OR 3 VW DATE: 03/04/2022 2:53 PM HISTORY: Right-sided pain.. FINDINGS: The vertebral body heights are normal. No significant intervertebral disc space narrow. The facets are normal. The sacroiliac joints are unremarkable. IMPRESSION: 1. No significant osseous abnormality. DICTATION LOCATION: Location [address] [place] [address] Zay Duncan Sekhon [facility] Mejía ORDERABLES documented in this encounter Visit Diagnoses Diagnosis Acute right-sided low back pain with right-sided sciatica- Primary Acute right-sided low back pain with right-sided sciatica documented in this encounter Care Teams Hunting Guide Relationship Specialty Start Date End Date Almita Smallwood MD [address] [place] [phone] PCP - General Internal Medicine 03/14/18 documented as of this encounter
--- OUTSIDE RECORDS SUMMARY | 2024-04-21 12:24 | XMS_ITS | Encounter Summary ---
Author Organization [facility] Address [address] [place] [address] Care Team Providers Care Channel Man Name Role Phone Almita Smallwood MD Primary Care Provider + Reason for Referral * MRI (Routine) - Closed Specialty Diagnoses / Procedures Referred By Contac t Referred To Contact Radiology Diagnoses Chronic right-sided low back pain with right-sided sciatica Procedures MRI LUMBAR WO CONTRAST HandJennifer Vallecillo APRN NO ADDRESS ON FILE [facility] [place] [address] [place] [address] Referral ID Status Reason Start Date Expiration Date Visits Re quested Visits Authorized [id number] Closed 03/16/2022 04/16/2023 1 1 TH AND SOCIAL CARE TEACHER Reason for Visit * MRI (Routine) - Closed Specialty Diagnoses / Procedures Referred By Contac t Referred To Contact Radiology Diagnoses Chronic right-sided low back pain with right-sided sciatica Procedures MRI LUMBAR WO CONTRAST Jennifer Kerr APRN NO ADDRESS ON FILE [facility] [place] [address] [place] [address] Referral ID Status Reason Start Date Expiration Date Visits Re quested Visits Authorized [id number] Closed 03/16/2022 04/16/2023 1 1 Encounter Details Date Type Department Care Team (Latest Contact Info) Description 03/26/2022 9:00 AM HEALTH AND SOCIAL CARE TEACHER - 03/26/2022 11:59 PM HEALTH AND SOCIAL CARE TEACHER Hospital Encounter [facility] [place] [address] [place] [phone] Jennifer Kerr APRN NO ADDRESS ON FILE Discharge Disposition: Home or Self Care Social [...] suspected to have Coronavirus/COVID-19? No / Unsure 03/26/2022 9:00 AM HEALTH AND SOCIAL CARE TEACHER documented as of this encounter Medications at Time of Discharge Medication Sig Dispensed Refills Start Date End Date cholecalciferol, vitamin D3, (VITAMIN D3 ORAL) Take [...] Route) route. TURMERIC ORAL Take by mouth. montelukast (Singulair) 10 mg tablet Take 1 Tablet (10 mg) by mouth daily at bedtime. 90 Tablet 3 07/09/2021 06/14/2022 documented as of this encounter Plan of Treatment Not on file documented as of this encounter Procedures Procedure Name Priority Date/Time Associated Diagnosis Comments MRI LUMBAR WO CONTRAST Routine 03/26/2022 10:21 AM HEALTH AND SOCIAL CARE TEACHER Chronic right-sided low back pain with right-sided sciatica documented in this encounter Results * MRI LUMBAR WO CONTRAST (03/26/2022 10:21 AM HEALTH AND SOCIAL CARE TEACHER) Anatomical Region Laterality Modality Spine Magnetic Resonan ce 03/26/2022 10:3 1 AM HEALTH AND SOCIAL CARE TEACHER Impressions 03/26/2022 10:54 AM HEALTH AND SOCIAL CARE TEACHER IMPRESSION: 1. 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 ?? DICTATION LOCATION: Location [address] Shukla [facility] 03/26/2022 10:54 AM HEALTH AND SOCIAL CARE TEACHER EXAM: MRI LUMBAR WO CONTRAST DATE: 03/26/2022 10:21 AM CLINICAL HISTORY: Low back pain. Radicular pain on the right. TECHNIQUE: Multiple sagittal and axial MR sequences were obtained of the lumbar spine without the use of IV contrast. IV CONTRAST: None. COMPARISON: March 04, 2022. FINDINGS: ?? There is preservation of the normal lumbar lordosis. There is normal lumbar alignment. There are no wedge-shaped compression deformities. No destructive marrow replacing lesions. The conus is normal in appearance at the L1-2 level. The disc spaces are preserved. There is no significant spinal or neural foraminal narrowing. The paraspinous soft tissues are unremarkable. T12-L1: The disc is normal in configuration. There is mild facet arthropathy. There is no neural foraminal narrowing. There is no spinal canal stenosis. L1-L2: The disc is normal in configuration. There is mild facet arthropathy. There is mild neural foraminal narrowing. There is no spinal canal stenosis. L2-L3: Disc bulge There is mild facet arthropathy. There is mild neural foraminal narrowing. There is no spinal canal stenosis. L3-L4: Disc bulge. There is mild facet arthropathy. There is mild neural foraminal narrowing. There is no spinal canal stenosis. L4-L5: Disc bulge. There is mild facet arthropathy. There is mild neural foraminal narrowing. There is no spinal canal stenosis. L5-S1: The disc is normal in configuration. There is mild facet arthropathy. There is no neural foraminal narrowing. There is no spinal canal stenosis. INCIDENTAL FINDINGS: ??None. Procedure Note Bg Oseguera MD - 03/26/2022 EXAM: MRI LUMBAR WO CONTRAST DATE: 03/26/2022 10:21 AM CLINICAL HISTORY: Low back pain. Radicular pain on the right. TECHNIQUE: Multiple sagittal and axial MR sequences were obtained of the lumbar spine without the use of IV contrast. IV CONTRAST: None. COMPARISON: March 04, 2022. FINDINGS: There is preservation of the normal lumbar lordosis. There is normal lumbar alignment. There are no wedge-shaped compression deformities. No destructive marrow replacing lesions. The conus is normal in appearance at the L1-2 level. The disc spaces are preserved. There is no significant spinal or neural foraminal narrowing. The paraspinous soft tissues are unremarkable. T12-L1: The disc is normal in configuration. There is mild facet arthropathy. There is no neural foraminal narrowing. There is no spinal canal stenosis. L1-L2: The disc is normal in configuration. There is mild facet arthropathy. There is mild neural foraminal narrowing. There is no spinal canal stenosis. L2-L3: Disc bulge There is mild facet arthropathy. There is mild neural foraminal narrowing. There is no spinal canal stenosis. L3-L4: Disc bulge. There is mild facet arthropathy. There is mild neural foraminal narrowing. There is no spinal canal stenosis. L4-L5: Disc bulge. There is mild facet arthropathy. There is mild neural foraminal narrowing. There is no spinal canal stenosis. L5-S1: The disc is normal in configuration. There is mild facet arthropathy. There is no neural foraminal narrowing. There is no spinal canal stenosis. INCIDENTAL FINDINGS: None. IMPRESSION: 1. 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 DICTATION LOCATION: Location - [facility] Jennifer Hand-Eoloff BACK TENDER INSULATION BOARD MR ORDERABLES documented in this encounter Visit Diagnoses Diagnosis Chronic right-sided low back pain with right-sided sciatica documented in this encounter Care Teams Channel Man Relationship Specialty Start Date End Date Almita Smallwood MD [address] [place] [address] PCP - General Internal Medicine 03/14/18 documented as of this encounter
--- OUTSIDE RECORDS SUMMARY | 2024-04-21 12:24 | XMS_ITS | Encounter Summary ---
Author Organization [facility] Address [address] [place] [address] Care Team Providers Care Center Lead Consultant Name Role Phone Almita Smallwood MD Primary Care Provider + Encounter Details Date Type Department Care Team (Late st Contact Info) Description 01/15/2022 Abstract [facility] Internal Medicine [address] [address] Almita Smallwood MD [address] [place] [address] Social History Tobacco Use Types Packs/Day Years [...] suspected to have Coronavirus/COVID-19? No / Unsure 01/07/2022 10:16 AM CDT documented as of this encounter Plan of Treatment Not on file documented as of this encounter Visit Diagnoses Not on filedocumented in this encounter Additional Health Concerns Assessment Noted Time PHQ-9 Depression Total Score: 1 10/16/19 22 2:00 PM CDT documented as of this encounter Care Teams Center Lead Consultant Relationship Specialty Start Date End Date Almita Smallwood MD [address] [place] [address] PCP - General Internal Medicine 03/14/18 documented as of this encounter
--- OUTSIDE RECORDS SUMMARY | 2024-04-21 12:24 | XMS_ITS | Encounter Summary ---
Author Organization [facility] Address [address] [place] [address] Care Team Providers Care Paradichlorobenzene Machine Operator Name Role Phone Almita Smallwood MD Primary Care Provider + Reason for Visit * Physical Therapy (Routine) - Closed Specialty Diagnoses / Procedures Referred By Tati campos Referred To Contact Physical Therapy Diagnoses Acute right-sided low back pain with right-sided sciatica Zay Chen NP NO ADDRESS ON FILE Nghia Will, Physical Therapist Referral ID Status Reason Start Date Expiration Date Visits Requested Visits Authorized [id number] Closed Performing Department to Schedule 03/25/2022 04/17/2023 57 60 Encounter Details Date Type Department Care Team (Late st Contact Info) Description 04/16/2022 8:00 AM STOCK MOVER - 04/16/2022 11:59 PM STOCK MOVER Hospital Encounter [facility] Services [address] [facility] [address] [place] [phone] Zay Chen NP NO ADDRESS ON FILE Nghia Will, Physical Therapist Acute right-sided low back pain with right-sided sciatica Discharge Disposition: Home or Self Care Social [...] suspected to have Coronavirus/COVID-19? No / Unsure 04/16/2022 7:59 AM STOCK MOVER documented as of this encounter Medications at [...] mcg by mouth daily. COLLAGEN MISC by [facility].(Non-Drug; Combo Route) route. TURMERIC ORAL Take by mouth. montelukast (Singulair) 10 mg tablet Take 1 Tablet (10 mg) by mouth daily at bedtime. 90 Tablet 3 07/09/2021 06/14/2022 documented as of this encounter Miscellaneous Notes * Therapy Treatment - Nghia Will, Physical Therapist - 04/16/2022 8:00 AM CST Images from the original note were not included. Physical Therapy Daily Documentation Patient: Lisa Hermosillo Date: 04/16/2022 Date of : 1960 Referring Provider: Zay Chen NP Diagnosis: M54.41 (ICD-10-CM) - 724.2, 724.3 (ICD-9-CM) - Acute right-sided low back pain with right-sided sciatica Reason for Therapy: Right LBP and right LE pain Precautions: None per prescription Fall Risk: no Next MD Appointment: PRN PN Due: 04-25-22 Script Visits: 07/28 by 05-06-22 Insurance Visits: 4 visits used/60 (3 used) visits approved by [facility] by 04-17-22 Authorization: n/a Summary List: Unchanged Time In: 8:02 a.m. Time Out: 8:30 a.m. Total Timed Treatment: 27 minutes Total Treatment Time: 27 minutes SUBJECTIVE Pain Level Pre-Treatment: 04/27 She states her back is a little twingy. She did go on an intense walk yesterday with sister and did not really aggravate it. She use to have intrense pain with her walks. OBJECTIVE Therapeutic Exercise: HEP review: : side-stepping against blue theraband AROUND ANKLES x 8-12 stepsx 2-[address] Sierra Leonean ball LTR [address] [place]an ball bridging 1 x15 Supine sudanese ball hamstring curls with lower abdominal isometrics x 10 Seated row machine, 3 pl 1 x15 Seated lat pull down , 2 pl , 1 x15 Straight arm pull downs, 1.5 pl, 1 x15 Home Exercise Program - continue present program: Supine Colt test hip flexor stretch(x 20 sec holds x 3 reps, child's pose x 20 sec holds x 3 reps, posterior pelvic tilt x 5 sec holds x 10 reps, hooklying hip abd against blue theraband x 5 sec holds x 10 reps, hooklying hip adduction pillow squeeze x 5 sec holds x 10 reps,supine bridge x 3 sec holds x 10 reps -standing rows and bilateral shoulder extension with blue theraband x 15 each Patient verbalized understanding, demonstrated understanding, and teach-back of HEP. Manual Therapy: Right sidelying lumbar rotational mobs with right knee extended and left knee flexed and upper trunk rotated and fixed. Left side gapping in same position. Left sidelying lumbar rotational mobs withleft knee extended and right knee flexed and upper trunk rotated and fixed. Right side gapping in same position. MFR to bilateral lumbar regions and bilateral piriformis Gait Training: n/a Therapeutic/Functional Activities: n/a Neuromuscular Re-education/Balance Training: n/a Modalities to Address: n/a Objective Measures: none taken ASSESSMENT Pain Level Post-Treatment: 0/10 Impression: Pt tolerated session well. She did well with sudanese ball core strengthening and resistance machines for back strengthening. She does feel better following manual therapy. Pt to continue tobenefit from PT for manual therapy PRN and progression for core strength, LE flexibility. Goals: GOALS: The following goals were developed in conjunction with the patient. STG's (Time Frame: 4 weeks)To be met by date: 04-25-22 1. Patient will demonstrate compliance and understanding of HEP to promote improved function and work toward set therapy goals. 2. Pt's bilateral hamstring length will improve by 15 degrees to improve ability to bend at waist to tie her shoes with less lower back and LE pain. 3. Pt's bilateral hip flexor length will improve by 10 degrees or more to be able to stand for morethan 1 hour completing normal household tasks. LTG's (Time Frame: 6 weeks)To be met by date:05-06-22 1. Pt's lower abdominal strength will improve by 1/3 MMT grade to promote core stability and less LBP with squatting down to [employer] something medium or heavy off the floor. 2. Pt's bilateral hip abduction strength will improve by 1/3 MMT grade to promote improved tolerance for walking on all surfaces to get around the grocery store. 3. Pt's bilateral hip extension strength will improve by 1/3 MMT grade to promote improved tolerance with getting up and down from a sitting position. 4. Pt's lower back and right LE pain will be rated at a 2/10 at most with lying at bed to be able to sleep for at least 6 hours undisturbed. 5. Patient will rate a decrease in disability from 22% to 11% or less on Oswestry Low Back Score todenote improved function and quality of life. PLAN Patient to be seen 2 times per week for 6 weeks for the following skilled therapeutic interventionsto address limitations in ADL's and function: HEP Instruction, Strengthening, Flexibility, Manual Therapy, Core Stabilization DOMINGO [place] License #: [id number] [address], [address] [place], [place]. [id number] Fax K MOVER documented in this encounter Plan of Treatment Not on file documented as of this encounter Visit Diagnoses Not on filedocumented in this encounter Care Teams Paradichlorobenzene Machine Operator Relationship Specialty Start Date End Date Almita Smallwood MD [address] [place] [address] PCP - General Internal Medicine 03/14/18 documented as of this encounter
--- OUTSIDE RECORDS SUMMARY | 2024-04-21 12:24 | XMS_ITS | Encounter Summary ---
Author Organization [facility] Address [address] [place] [address] Care Team Providers Care Zinc Plate Grainer Name Role Phone Almita Smallwood MD Primary Care Provider + Reason for Visit * Reason Comments Immunization/Injection Encounter Details Date Type Department Care Team (Latest Contact Info) Description 01/07/2022 10:30 AM CDT Clinical Support [facility] Internal Medicine [address] [address] Need for shingles vaccine (Primary Dx) Social History Tobacco Use Types [...] as of this encounter Visit Diagnoses Diagnosis Need for shingles vaccine- Primary Need for prophylactic vaccination and inoculation against varicella documented in this encounter Additional Health Concerns Assessment Noted Time PHQ-9 Depression Total Score: 1 10/16/19 22 2:00 PM CDT documented as of this encounter Care Teams Zinc Plate Grainer Relationship Specialty Start Date End Date Almita Smallwood MD [address] [place] [address] PCP - General Internal Medicine 03/14/18 documented as of this encounter
--- OUTSIDE RECORDS SUMMARY | 2024-04-21 12:24 | XMS_ITS | Encounter Summary ---
Author Organization [facility] Address [address] [place] [address] Care Team Providers Care Campus Security Officer Name Role Phone Almita Smallwood MD Primary [...] Date Expiration Date Visits Requested Visits Authorized [id number] Closed Performing Department to Schedule 03/25/2022 04/17/2023 57 60 Encounter Details Date Type Department Care Team (Late st Contact Info) Description 04/02/2022 9:30 AM [facility] - 04/02/2022 11:59 PM [facility] Hospital Encounter [facility] [address] [facility] [address] [place] [phone] Zay Chen NP NO ADDRESS ON FILE [...] Coronavirus/COVID-19? No / Unsure 04/02/2022 9:29 AM [facility] documented as of this encounter Medications at [...] mcg by mouth daily. COLLAGEN MISC by [facility].(Non-Drug; Combo Route) route. TURMERIC ORAL Take by mouth. montelukast (Singulair) 10 mg tablet Take 1 Tablet (10 mg) by mouth daily at bedtime. 90 Tablet 3 07/09/2021 06/14/2022 documented as of this encounter Miscellaneous Notes * Therapy Treatment - Nghia Will, Physical Therapist - 04/02/2022 9:30 AM CST Images from the original note were not included. Physical Therapy Daily Documentation Patient: Lisa Hermosillo Date: 04/02/2022 Date of : 1960 Referring Provider: Zay Chen NP Diagnosis: M54.41 (ICD-10-CM) - 724.2, 724.3 (ICD-9-CM) - Acute right-sided low back pain with right-sided sciatica Reason for Therapy: Right LBP and right LE pain Precautions: None per prescription Fall Risk: no Next MD Appointment: PRN PN Due: 04-25-22 Script Visits: 05/30 by 05-06-22 Insurance Visits: 2 visits used/60 (3 used) visits approved by [facility] by 04-17-22 Authorization: n/a Summary List: Unchanged Time In: 9:32 a.m. Time Out: 10:00 a.m. Total Timed Treatment: 27 minutes Total Treatment Time: 27 minutes SUBJECTIVE Pain Level Pre-Treatment: 0/10 She notes it may be a little better. She states she worked her part-time job at [employer] yesterday and is was twingy. She notes a piercing pain pain in the buttock when she is walking. OBJECTIVE Therapeutic Exercise: HEP review: Supine Colt test hip flexor stretch(x 20 sec holds x 3 reps, child's pose x 20 sec holds x 3 reps, posterior pelvic tilt x 5 sec holds x 10 reps, hooklying hip abdagainst blue theraband x 5 sec holds x 10 reps, hooklying hip adduciton pillow squeeze x 5 sec holds x 10 reps HEP instructed(04-02-22): supine bridge x 3 sec holds x 10 reps -standing rows and bilateral shoulder extension with blue theraband x 15 each Home Exercise Program - continue present program: Supine Colt test hip flexor stretch(x 20 sec holds x 3 reps, child's pose x 20 sec holds x 3 reps, posterior pelvic tilt x 5 sec holds x 10 reps, hooklying hip abd against blue theraband x 5 sec holds x 10 reps, hooklying hip adduciton pillow squeeze x 5 sec holds x 10 reps Patient verbalized understanding, demonstrated understanding, and teach-back [...] Post-Treatment: 0/10 Impression: Pt tolerated session well. Her lower back was restricted but improved on the right withmanual therapy. She demonstrated good understanding with review of HEP. Pt to continue to benefit from PT for manual therapy PRN and [...] and less LBP with squatting down to picking supervisor something medium or heavy off the floor. [...] Therapy, Core Stabilization DOMINGO [place] License #: [id number] [facility], [address], [address] [place], [place]. [address] Fax [place] documented in this encounter Plan of Treatment Not on file documented as of this encounter Visit Diagnoses Not on filedocumented in this encounter Care Teams Campus Security Officer Relationship Specialty Start Date End Date Almita Smallwood MD [address] [place] [phone] PCP - General Internal Medicine 03/14/18 documented as of this encounter
--- OUTSIDE RECORDS SUMMARY | 2024-04-21 12:24 | XMS_ITS | Encounter Summary ---
Author Organization [facility] Address [address] [place] [address] Care Team Providers Care Swatch Maker Name Role Phone Almita Smallwood MD Primary Care Provider + Encounter Details Date Type Department Care Team (Late st Contact Info) Description 04/01/2023 External Device Data STL ABSTRACTION Provider, Abstract [...] on filedocumented in this encounter Care Teams Swatch Maker Relationship Specialty Start Date End Date Almita Smallwood MD [address] [place] [address] PCP - General Internal Medicine 03/14/18 documented as of this encounter
--- OUTSIDE RECORDS SUMMARY | 2024-04-21 12:24 | XMS_ITS | Encounter Summary ---
Author Organization [facility] Address [address] [facility] Attn: [place] [address] Care Team Providers Care Fur Vault Attendant Name Role Phone Almita Smallwood MD Primary Care Provider + Encounter Details Date Type Department Care Team (Latest Contact Info) Description 03/26/2022 Travel Social History Tobacco Use Types Packs/Day [...] Coronavirus/COVID-19? No / Unsure 03/26/2022 9:00 AM MANAGER CLINIC documented as of this encounter Plan of Treatment Not on file documented as of this encounter Visit Diagnoses Not on filedocumented in this encounter Care Teams Fur Vault Attendant Relationship Specialty Start Date End Date Almita Smallwood MD [address] [place] [address] PCP - General Internal Medicine 03/14/18 documented as of this encounter
--- OUTSIDE RECORDS SUMMARY | 2024-04-21 12:24 | XMS_ITS | Encounter Summary ---
Author Organization [facility] Address [address] [place] [address] Care Team Providers Care Cook'S Assistant Name Role Phone Almita Smallwood MD Primary Care Provider + Reason for Referral * Eval and Treat (Routine) - Closed Specialty Diagnoses / Procedures Referred By Tati campos Referred To Contact Dermatology Diagnoses Skin disorder Almita Smallwood MD [address] [place] [address] Referral ID Status Reason Start Date Expiration Date Visits Re quested Visits Authorized [id number] Closed 01/12/2022 01/12/2023 1 1 Reason for Visit * Reason Onset Date Comments Referral 01/12/2022 Encounter Details Date Type Department Care Team (Late st Contact Info) Description 01/12/2022 Telephone [facility] Internal Medicine - [facility] [address] [place] [address] Almita Smallwood MD [address] [place] [address] Referral Social History Tobacco Use Types Packs/Day Years [...] AM CDT documented as of this encounter Miscellaneous Notes * Telephone Encounter - Noemi Espinoza - 01/12/2022 10:53 AM CDT Order placed, pt notified. * Telephone Encounter - Noemi Espinoza - 01/12/2022 10:51 AM CDT ----- Message from Lisa Hermosillo sent at 01/11/2022 5:19 PM CDT ----- Regarding: Referral Contact: Cool! It is a lump that has been there for a very long time. It is a cyst, I guess? But, not to sound weird, if I rub it sometimes, my fingers stink after, hence the remark about stinking. With everything going on with the dizzy etc. I want to eliminate as much as possible and if it isn???t an original part, and it???s not, I would like it gone. If you want me to come in so you can have a look, let me know. : ) documented in this encounter Plan of Treatment Scheduled Referrals Name Type Priority Associated Diagnoses Order Schedule AMB REFERRAL TO DERMATOLOGY Outpatient Referral Routine Skin disorder Ordered: 01/12/2022 documented as of this encounter Visit Diagnoses Diagnosis Skin disorder- Primary Unspecified disorder of skin and subcutaneous tissue documented in this encounter Additional Health Concerns Assessment Noted Time PHQ-9 Depression Total Score: 1 10/16/19 22 2:00 PM CDT documented as of this encounter Care Teams Cook'S Assistant Relationship Specialty Start Date End Date Almita Smallwood MD [address] [place] [address] PCP - General Internal Medicine 03/14/18 documented as of this encounter
--- OUTSIDE RECORDS SUMMARY | 2024-04-21 12:24 | XMS_ITS | Encounter Summary ---
Author Organization [facility] Address [address] [place] [address] Care Team Providers Care Medical Technologist Chief Name Role Phone Almita Smallwood MD Primary Care Provider + Reason for Visit * Physical Therapy (Routine) - Closed Specialty Diagnoses / Procedures Referred By Tati campos Referred To Contact Physical Therapy Diagnoses Acute right-sided low back pain with right-sided sciatica aZy Chen NP NO ADDRESS ON FILE Nghia Will, Physical Therapist Referral ID Status Reason Start Date Expiration Date Visits Requested Visits Authorized [id number] Closed Performing Department to Schedule 03/25/2022 04/17/2023 57 60 Encounter Details Date Type Department Care Team (Late st Contact Info) Description 04/29/2022 2:26 PM NURSE SUPERVISOR - 04/29/2022 11:59 PM [facility] Hospital Encounter [facility] [address] [address] Zay Chen NP NO ADDRESS ON FILE Almita Smallwood MD [address] [place] [address] Nghia Will, Physical Therapist Acute right-sided low [...] Recorded In the last 10 days, have morales domínguez been in contact with someone who was confirmed or suspected to have Coronavirus/COVID-19? No / Unsure 04/29/2022 2:25 PM NURSE SUPERVISOR documented as of this encounter Medications at [...] of this encounter Miscellaneous Notes * Therapy Progress Note - Nghia Will, Physical Therapist - 04/29/2022 2:30 PM CST Images from the original note were not included. Physical Therapy Progress Note Patient: Lisa Hermosillo Date: 04/29/2022 Date of : 1960 Referring Provider: Zay Chen NP Diagnosis: M54.41 (ICD-10-CM) - 724.2, 724.3 (ICD-9-CM) - Acute right-sided low back pain with right-sided sciatica Reason for Therapy: Right LBP and right LE pain Precautions: None per prescription Fall Risk: no Next MD Appointment: PRN PN Due: 04-25-22 Script Visits: 08/27 by 05-06-22 Insurance Visits: 5 visits used/60 (3 used) visits approved by [facility] by 04-17-22 Authorization: n/a Summary List: Unchanged Time In: 2:33 p.m. Time Out: 3:01 p.m. Total Timed Treatment: 26 minutes Total Treatment Time: 26 minutes Lisa Hermosillo has been seen for 5/12 visits from 03/25/23 to 05/10/22 with 3 cancellations and 0no shows. Treatments consisted of: home exercise program, joint mobilization, manual therapy, pain management, patient/family education, plan of care, posture/body mechanics instruction, range of motion, stretching, and strengthening therapeutic exercises Therapeutic Exercise to increase strength, ROM, flexibility, stablization. Manual Treatments - soft/deep tissue massage, joint mobilization SUBJECTIVE She states she moved and for 4 days she did not get in her HEP. She states she was doing a lot of pulling, pushing, lifting, climbing in and out back of pick- up truck. Functional Progress: Walking prolonged distance is better, Remaining Functional Limitations: sitting for too long Pain: Best - 0/10 Worst - 6/10 Currently - 0/10 Description/Location: LBP, intermittent sharp , stabbing pain and tightness in hips and sometimes radiates down to right knee Alleviating Factors: pain medication, lumbar support. Aggravating Factors: Lifting, prolonged walking OBJECTIVE Functional Outcomes: Oswestry Low Back Pain Score 22 % Disability (03/26/22 0859) Oswestry Low Back Pain Score 16 % Disability (04/30/22 1208) Appearance: Pt is a pleasant female that enters with guarded transitions sit to stand Posture: . Anterior pelvic tilt. Gait: unremarkable Trunk ROM Comments Flexion WNL tightness Extension 50% of normal 25% of normal Right lateral thigh pain Right Left Rotation WNL WNL Strength Comments Lower Abdominals 3+/5 (Was 2/5) Right Left Hip Flexion 4+/5(Was 4/5) 5/5 Hip Extension 4+/5(Was 4/5) 4+/5(same) Hip Abduction 4+/5(was 4/5 5/5(wa s 4+/5) Knee Extension 5/5 (was 4+/5) 5/5 Knee Flexion 5/5 5/5 Ankle Dorsiflexion 5/5 5/5 Ankle Plantar Flexion 5/5 5/5 Flexibility: Hamstring Length 90/90 - (R) -5 degrees, (L)-13 degrees (was -15 degrees). Piriformis Length - (R) Severe hip joint tightness, (L) WNL. Hip Flexor Length - (R) -2 degrees (was -7 degreesat hip from table), (L) WNL. Prone Knee Flexion - (R) WNL, (L) WNL. Manual Exam: left posterior innominate Special Tests: Straight Leg Raise - Negative bilaterally. OBJECTIVE Therapeutic Exercise: Re-assessment Jordanian ball LTR [address] Jordanian ball bridging 1 x15 Supine guinean ball hamstring curls with lower abdominal isometrics x 15 Home Exercise Program - continue present program: [...] extension with blue theraband x 15 each side-stepping against blue theraband AROUND ANKLES x 8-12 steps x 2-[address] Patient verbalized understanding, demonstrated understanding, and teach-back of HEP. Manual Therapy: MFR to bilateral lumbar regions and bilateral piriformis Gait Training: n/a Therapeutic/Functional Activities: n/a Neuromuscular Re-education/Balance Training: n/a Modalities to Address: n/a Objective Measures: none taken ASSESSMENT Pain Level Post-Treatment: 0/10 Impression: Pt was re-assessed and she did improve in her Le flexibility and core/hip strength. Shecontinues to right hip joint tightness and general core weakness. She is able to go on her walks without having to stop and stretch out due to the pain. Pt to continue to benefit from PT [...] 1 hour completing normal household tasks.Progressing 04-29-22 LTG's (Time Frame: 6 weeks)To be met by date:05-06-22 1. Pt's lower abdominal strength will improve by 1/3 MMT grade to promote core stability and less LBP with squatting down to pick and shovel man something medium or heavy off the floor. [...] Flexibility, Manual Therapy, Core Stabilization [place] License #: [id number] [facility], [address], [address] [address] Fax E SUPERVISOR documented in this encounter Plan of Treatment Not on file documented as of this encounter Visit Diagnoses Not on filedocumented in this encounter Care Teams Medical Technologist Chief Relationship Specialty Start Date End Date Almita Smallwood MD [address] [place] [address] PCP - General Internal Medicine 03/14/18 documented as of this encounter
--- OUTSIDE RECORDS SUMMARY | 2024-04-21 12:24 | XMS_ITS | Encounter Summary ---
Author Organization [facility] Address [address] [facility] Attn: [place] [address] Care Team Providers Care Yacht Captain Name Role Phone Almita Smallwood MD Primary Care Provider + Encounter Details Date Type Department Care Team (Latest Contact Info) Description 04/14/2022 Travel Social History Tobacco Use Types Packs/Day [...] suspected to have Coronavirus/COVID-19? No / Unsure 04/14/2022 10:03 AM PROPERTY UTILIZATION OFFICER documented as of this encounter Plan of Treatment Not on file documented as of this encounter Visit Diagnoses Not on filedocumented in this encounter Care Teams Yacht Captain Relationship Specialty Start Date End Date Almita Smallwood MD [address] [place] [address] PCP - General Internal Medicine 03/14/18 documented as of this encounter
--- OUTSIDE RECORDS SUMMARY | 2024-04-21 12:24 | XMS_ITS | Encounter Summary ---
Author Organization [facility] Address [address] [place] [address] Care Team Providers Care Automation Machine Builder Name Role Phone Almita Smallwood MD Primary Care Provider + Reason for Visit * Reason Onset Date Comments Needs Appointment 11/24/2021 Encounter Details Date Type Department Care Team (Late st Contact Info) Description 11/24/2021 Telephone [facility] Internal Medicine - [id number] [place] [address] Almita Smallwood MD [address] [place] [address] Needs Appointment Social History Tobacco Use Types Packs/Day Years [...] encounter Miscellaneous Notes * Telephone Encounter - Cheryl Moran - 11/24/2021 10:20 AM CDT Spoke with patient and got her set up in December for her 2nd shingrix shot. Pt is aware and [facility] drawn * Telephone Encounter - Cheryl Moran - 11/24/2021 10:20 AM CDT ----- Message from Lisa Hermosillo sent at 11/24/2021 8:11 AM CDT ----- Regarding: Part 2 of my shingles Hello! I was supposed to stop and make an appointment for my second shingles and did not want to wait until the lady got off of the phone so I left and then forgot about it. Can we add that to the blood test coming up or does it need to happen faster than that? My apologies for the drama???. documented in this encounter Plan of Treatment Not on file documented as of this encounter Visit Diagnoses Not on filedocumented in this encounter Additional Health Concerns Assessment Noted Time PHQ-9 Depression Total Score: 1 10/16/19 22 2:00 PM CDT documented as of this encounter Care Teams Automation Machine Builder Relationship Specialty Start Date End Date Almita Samllwood MD [address] [place] [address] PCP - General Internal Medicine 03/14/18 documented as of this encounter
--- OUTSIDE RECORDS SUMMARY | 2024-04-21 12:24 | XMS_ITS | Encounter Summary ---
Author Organization [facility] Address [address] [place] [address] Care Team Providers Care Control Valve Mechanic Name Role Phone Almita Smallwood MD [...] Date Expiration Date Visits Requested Visits Authorized [id number] Closed Performing Department to Schedule 03/25/2022 04/17/2023 57 60 Encounter Details Date Type Department Care Team (Late st Contact Info) Description 04/14/2022 8:30 AM RESPIRATORY THERAPIST ASSISTANT - 04/14/2022 11:59 PM RESPIRATORY THERAPIST ASSISTANT Hospital Encounter [facility] [address] [facility] [address] [place] [address] Zay Chen NP NO ADDRESS ON FILE [...] Coronavirus/COVID-19? No / Unsure 04/14/2022 10:03 AM RESPIRATORY THERAPIST ASSISTANT documented as of this encounter Medications at [...] mcg by mouth daily. COLLAGEN MISC by [facility].(Non-Drug; Combo Route) route. TURMERIC ORAL Take by mouth. montelukast (Singulair) 10 mg tablet Take 1 Tablet (10 mg) by mouth daily at bedtime. 90 Tablet 3 07/09/2021 06/14/2022 documented as of this encounter Miscellaneous Notes * Therapy Treatment - Nghia Will, Physical Therapist - 04/14/2022 8:30 AM CST Images from the original note were not included. Physical Therapy Daily Documentation Patient: Lisa Hermosillo Date: 04/14/2022 Date of : 1960 Referring Provider: Zay Chen NP Diagnosis: M54.41 (ICD-10-CM) - 724.2, 724.3 (ICD-9-CM) - Acute right-sided low back pain with right-sided sciatica Reason for Therapy: Right LBP and right LE pain Precautions: None per prescription Fall Risk: no Next MD Appointment: PRN PN Due: 04-25-22 Script Visits: 06/27 by 05-06-22 Insurance Visits: 3 visits used/60 (3 used) visits approved by [facility] by 04-17-22 Authorization: n/a Summary List: Unchanged Time In: 8:32 a.m. Time Out: 9:00 a.m. Total Timed Treatment: 27 minutes Total Treatment Time: 27 minutes SUBJECTIVE Pain Level Pre-Treatment: 0/10 She notes she was doing HEP and was doing better. She states he had cyst removed off her back and hurt more than she though it would and had her not consistent with HEP. She was on opioids for that pain. She woke up on with sharp pains in her lower back and made it hard to walk around. She took 2 naproxen that night and relieved her pain. OBJECTIVE Therapeutic Exercise: HEP review: supine bridge x 3 sec holds x 10 reps -standing rows and bilateral shoulder extension with blue theraband x 15 each HEP instructed(04-14-22): side-stepping against blue theraband AROUND ANKLES x 8-12 steps x 2-[address] Home Exercise Program - continue present program: [...] 0/10 Impression: Pt tolerated session well. She required some cueing to prevent shoulder hiking with standing rows with theraband, but good demonstration with others reviewed. Her lumbar soft tissue did improve with manual therapy.Pt to continue to benefit from PT for [...] and less LBP with squatting down to pickle cutter something medium or heavy off the floor. [...] Therapy, Core Stabilization [place] License #: [id number] [facility], [address], [address] [place]. [address] Fax IRATORY THERAPIST ASSISTANT documented in this encounter Plan of Treatment Not on file documented as of this encounter Visit Diagnoses Not on filedocumented in this encounter Care Teams Control Valve Mechanic Relationship Specialty Start Date End Date Almita Smallwood MD [address] [place] [address] PCP - General Internal Medicine 03/14/18 documented as of this encounter
--- OUTSIDE RECORDS SUMMARY | 2024-04-21 12:24 | XMS_ITS | Encounter Summary ---
Author Organization [facility] Address [address] [place] [address] Care Team Providers Care Wood Processing Worker Name Role Phone Almita Smallwood MD [...] Date Expiration Date Visits Requested Visits Authorized [id number] Closed Performing Department to Schedule 03/25/2022 04/17/2023 57 60 Encounter Details Date Type Department Care Team (Late st Contact Info) Description 05/12/2022 10:51 AM SOLE TRIMMER - 05/12/2022 11:59 PM SOLE TRIMMER Hospital Encounter [facility] [address] [facility] [address] [place] [address] Zay Chen NP NO ADDRESS ON FILE [...] suspected to have Coronavirus/COVID-19? No / Unsure 05/12/2022 10:48 AM SOLE TRIMMER documented as of this encounter Medications at [...] mcg by mouth daily. COLLAGEN MISC by [facility].(Non-Drug; Combo Route) route. TURMERIC ORAL Take by mouth. montelukast (Singulair) 10 mg tablet Take 1 Tablet (10 mg) by mouth daily at bedtime. 90 Tablet 3 07/09/2021 06/14/2022 documented as of this encounter Miscellaneous Notes * Therapy Treatment - Nghia Will, Physical Therapist - 05/12/2022 11:00 AM CST Images from the original note were not included. Physical Therapy Daily Documentation Patient: Lisa Hermosillo Date: 05/12/2022 Date of : 1960 Referring Provider: Zay Chen NP Diagnosis: M54.41 (ICD-10-CM) - 724.2, 724.3 (ICD-9-CM) - Acute right-sided low back pain with right-sided sciatica Reason for Therapy: Right LBP and right LE pain Precautions: None per prescription Fall Risk: no Next MD Appointment: PRN PN Due: 04-25-22 Script Visits: 04/29 by 06/10/22 Insurance Visits: 2 visits used/60 visits approved by [facility] by 04-17-22 Authorization: n/a Summary List: Unchanged Time In: 11:03 a.m. Time Out: 11:30 a.m. Total Timed Treatment: 26 minutes Total Treatment Time: 26 minutes SUBJECTIVE Pain Level Pre-Treatment: yesterday, -05/28 now She states she finished work yesterday and it work. She states she had a sharp pain in the buttocks. She went out for a walk and it got better. OBJECTIVE Therapeutic Exercise: HEP instructed(05-12-22): -Supine right piriformis stretch x 20 sec holds x 3 reps Northern Irish ball LTR [address] Northern Irish ball bridging 1 x10 Supine montserratian ball hamstring curls with lower abdominal isometrics x 10 Seated row machine, 3 pl 1 x15 Seated lat pull down , 2 pl , 1 x15 Straight arm pull downs, 2 pl, 1 x15 Home Exercise Program - [...] teach-back of HEP. Manual Therapy: MFR to right lumbar and piriformis region. Lateral right hip joint mobs grade II with belt assist. MET: Hooklying right hip extension and left hip flexion x 5 sec holds x 10 reps Gait Training: n/a Therapeutic/Functional Activities: n/a Neuromuscular Re-education/Balance Training: n/a Modalities to Address: n/a Objective Measures: Moderate to severe right hip joint restrictions. ASSESSMENT Pain Level Post-Treatment: 0/10 Impression: Pt tolerated session fairly well. She was noted to have right hip piriformis/joint tightness, but it improved with joint mobs. She did well with adding of stretch. Her left posterior innominate did correct with MET. Pt to continue to benefit from PT [...] and less LBP with squatting down to coal picker something medium or heavy off the floor. [...] Therapy, Core Stabilization [place] License #: [id number] [facility], [address], [address] [place], [place]. [id number] Fax TRIMMER documented in this encounter Plan of Treatment Not on file documented as of this encounter Visit Diagnoses Not on filedocumented in this encounter Care Teams Wood Processing Worker Relationship Specialty Start Date End Date Almita Smallwood MD [address] [place] [address] PCP - General Internal Medicine 03/14/18 documented as of this encounter
--- OUTSIDE RECORDS SUMMARY | 2024-04-21 12:24 | XMS_ITS | Encounter Summary ---
Author Organization [facility] Address [address] [facility] [address] Attn: [place] [address] Care Team Providers Care Undergraduate Internship Name Role Phone Almita Smallwood MD Primary Care Provider + Encounter Details Date Type Department Care Team (Latest Contact Info) Description 01/07/2022 Travel Social History Tobacco Use Types Packs/Day [...] documented as of this encounter Care Teams Undergraduate Internship Relationship Specialty Start Date End Date Almita Smallwood MD [address] [place] [address] PCP - General Internal Medicine 03/14/18 documented as of this encounter
--- OUTSIDE RECORDS SUMMARY | 2024-04-21 12:24 | XMS_ITS | Encounter Summary ---
Author Organization [facility] Address [address] [place] [address] Care Team Providers Care Hepatology Physician Name Role Phone Almita Smallwood MD Primary Care Provider + Reason for Visit * Reason Onset Date Comments Results 03/29/2022 Encounter Details Date Type Department Care Team ([facility] Contact Info) Description 03/29/2022 Telephone [facility] Internal Medicine - [id number] [place] [address] Almita Smallwood MD [address] [place] [address] Results Social History Tobacco Use Types Packs/Day [...] Coronavirus/COVID-19? No / Unsure 04/02/2022 9:29 AM PRESS SETUP OPERATOR documented as of this encounter Miscellaneous Notes * Telephone Encounter - Aarti De La Fuente - 03/29/2022 3:49 PM CST LMOM X1 for patient to call office back or review result and result note on [facility]. S SETUP OPERATOR * Telephone Encounter - Aarti De La Fuente - 03/29/2022 3:37 PM CST ----- Message from Jennifer Kerr APRN sent at 03/29/2022 12:27 PM PRESS SETUP OPERATOR ----- MRI of lumbar spine showing mild degenerative disease (arthritis) and mild narrowing of the foraminal space. She was referred to PT, which can really help improve this type of pain. I strong recommend she set up an appointment with them. Please find out her pain is at this time. S SETUP OPERATOR documented in this encounter Plan of Treatment Not on file documented as of this encounter Visit Diagnoses Not on filedocumented in this encounter Care Teams Hepatology Physician Relationship Specialty Start Date End Date Almita Smallwood MD [address] [place] [address] PCP - General Internal Medicine 03/14/18 documented as of this encounter
--- OUTSIDE RECORDS SUMMARY | 2024-04-21 12:24 | XMS_ITS | Encounter Summary ---
Author Organization [facility] Address [address] [facility] Attn: Epic Prelude ADT [facility] [place] [address] Care Team Providers Care Cs Associate Name Role Phone Almita Smallwood MD Primary Care Provider + Encounter Details Date Type Department Care Team (Latest Contact Info) Description 03/04/2022 Travel Social History Tobacco Use Types Packs/Day [...] Coronavirus/COVID-19? No / Unsure 03/04/2022 1:11 PM SENIOR SALES REPRESENTATIVE documented as of this encounter Plan of Treatment Not on file documented as of this encounter Visit Diagnoses Not on filedocumented in this encounter Care Teams Cs Associate Relationship Specialty Start Date End Date Almita Smallwood MD [address] [place] [address] PCP - General Internal Medicine 03/14/18 documented as of this encounter
--- OUTSIDE RECORDS SUMMARY | 2024-04-21 12:24 | XMS_ITS | Encounter Summary ---
Author Organization [facility] Address [address] [place] [address] Care Team Providers Care Director Clinical Operations Name Role Phone Almita Smallwood MD Primary Care Provider + Reason for Visit * Reason Onset Date Comments Results 02/01/2022 Encounter Details Date Type Department Care Team ([facility] Contact Info) Description 02/01/2022 Telephone [facility] Internal Medicine - [address] [address] Jennifer Kerr APRN NO ADDRESS ON FILE Results Social History Tobacco Use Types Packs/Day [...] encounter Miscellaneous Notes * Telephone Encounter - Elena Poe - 02/01/2022 3:03 PM CDT LVM that test results are available, informed that detailed [employer] message was being sent. If pt returns call, please inform results normal ----- Message from Jennifer Kerr APRN sent at 01/29/2022 4:21 PM CDT ----- Labs WNL. documented in this encounter Plan of Treatment Not on file documented as of this encounter Visit Diagnoses Not on filedocumented in this encounter Additional Health Concerns Assessment Noted Time PHQ-9 Depression Total Score: 1 10/16/19 22 2:00 PM CDT documented as of this encounter Care Teams Director Clinical Operations Relationship Specialty Start Date End Date Almita Smallwood MD [address] [place] [address] PCP - General Internal Medicine 03/14/18 documented as of this encounter
--- OUTSIDE RECORDS SUMMARY | 2024-04-21 12:24 | XMS_ITS | Encounter Summary ---
Author Organization [facility] Address [address] [place] [address] Care Team Providers Care Animal Cruelty Investigator Name Role Phone Almita Smallwood MD Primary Care Provider + Encounter Details Date Type Department Care Team (Late st Contact Info) Description 11/11/2022 Abstract [facility] Internal Medicine - [facility] [address] [place] [address] Almita Smallwood MD [address] [place] [address] Social History Tobacco Use Types [...] on filedocumented in this encounter Care Teams Animal Cruelty Investigator Relationship Specialty Start Date End Date Almita Smallwood MD [address] [place] [address] PCP - General Internal Medicine 03/14/18 documented as of this encounter
--- OUTSIDE RECORDS SUMMARY | 2024-04-21 12:24 | XMS_ITS | Encounter Summary ---
Author Organization [email or web address] Address [address] [place] [address] Care Team Providers Care Assembler Wet Wash Name Role Phone Almita Smallwood MD Primary Care Provider + Encounter Details Date Type Department Care Team (Latest Contact Info) Description 03/04/2022 2:41 PM [employer] [employer] [facility] - 03/04/2022 11:59 PM [employer] Hospital Encounter [facility] [address] [facility] [place] [phone] Zay Chen NP NO ADDRESS ON FILE Discharge Disposition: Home [...] Coronavirus/COVID-19? No / Unsure 03/04/2022 1:11 PM [employer] documented as of this encounter Medications at [...] Route) route. TURMERIC ORAL Take by mouth. diclofenac sodium (VOLTAREN) 75 mg Tablet, Delayed Release (E.C.)Indications:Acut e right-sided low back pain with right-sided sciatica Take 1 Tablet (75 mg) by mouth 2 times daily with meals for 7 days. 14 Tablet 03/04/2022 03/11/2022 montelukast (Singulair) 10 mg tablet Take 1 Tablet (10 mg) by mouth daily at bedtime. 90 Tablet 3 07/09/2021 06/14/2022 documented as of this encounter Plan of Treatment Not on file documented as of this encounter Procedures Procedure Name Priority Date/Time Associated Diagnosis Comments XR LUMBAR SPINE 2 OR 3 VW Routine 03/04/2022 2:53 PM [employer] Acute right-sided low back pain with right-sided sciatica documented in this encounter Results * XR LUMBAR SPINE 2 OR 3 VW (03/04/2022 2:53 PM [employer]ER) Anatomical Region Laterality Modality Spine Computed Radiogr aphy 03/04/2022 3:01 PM [employer] Impressions 03/04/2022 3:16 PM [employer] IMPRESSION: 1. No significant osseous abnormality. DICTATION LOCATION: Location [address] [place] [address] 03/04/2022 3:16 PM [employer]ER XR LUMBAR SPINE 2 OR 3 VW [...] No significant osseous abnormality. DICTATION LOCATION: Location [address] [place] [address] Zay Chen NP DIAGNOSTIC ANSELMO Mejía ORDERABLES documented in this encounter Visit Diagnoses Diagnosis Acute right-sided low back pain with right-sided sciatica documented in this encounter Care Teams Assembler Wet Wash Relationship Specialty Start Date End Date Almita Smallwood MD [address] [place] [address] PCP - General Internal Medicine 03/14/18 documented as of this encounter
--- OUTSIDE RECORDS SUMMARY | 2024-04-21 12:24 | XMS_ITS | Encounter Summary ---
Author Organization [facility] Address [address] [place] [address] Care Team Providers Care Patient Registrar Name Role Phone Almita Smallwood MD Primary Care Provider + Encounter Details Date Type Department Care Team (Latest Contact Info) Description 08/12/2023 8:59 AM CDT - 08/12/2023 11:59 PM CDT Hospital Encounter [facility] S On License Of [facility] [address] [place] [address] Juan Manuel Farnsworth MD [address] [facility] [address] [place] [address] Discharge Disposition: Home or Self Care Anesthesia Record Procedure Summary Procedure Name Responsible [...] Quick Note Hypotension req uested by surgeon 1851 Throat Pack Removed 185 Procedure Stop This event di splays the Procedure Stop time documented in the Surgical Log. Deleting this event will not remove it from the log but will remove it from the Grid and Graph timeline. 185 An Extubation Emergence unev entful Awake, spontaneous respirations. Adequate muscle strength demonstrated Adequate tidal volume. Orapharynx suctioned. Extubated with positive pressure ventilation. 1906 Out of Room This event disp lays the Out of Room time documented in the Surgical Log. Deleting this event will not remove it from the log but will remove it from the Grid and Graph timeline. 190 an stop data 1911 An Stop 1911 Hand-off to Receiving Clinic rosemarie Post-Anesthetic transfer of care report elements to appropriate post-anesthesia recovery environment completed in accordance with procedure. Meds * Agents No agents on file. * Blood No blood administrations on file. Lines, Drains, and Airways Type Details Placement Removal Peripheral IV Orientation: Left, Posterior; Location: Wrist; Device: Angiocath; Gauge: 20 gauge; Needle Length: 1 in length; Insertion Attempts: 1; Patient Tolerance: tolerated well 09/05/23 1215 by Ilsa Granados RN Peripheral IV Orientation: Left; Location: Hand; Device: Angiocath; Gauge: 16 gauge; Insertion Attempts: 1 09/05/23 141 by Evangelina Connell CRNA Endotracheal Airway Type: NT Tube; Cuff Pressure: cuff inflated; Size: 6; Site: right nostril; Attempts: 1; FOV: I; cm: 27; Device: Straight Blade; Blade: 2; Secured: secured with tape; Verification: Auscultated bilateral breath sounds, Equal chest movement, Continuous waveform capnography 09/05/23 1412 by Evangelina Connell, BEATRICE 09/05/231858 by Eric López AA-C ART Line Orientation: Left:; Location: radial artery; Size (Ga): 20 Ga; Removal Interventions: direct pressure 09/05/23 1425 by Evangelina Connell CRNA 09/05/232030 by Warner Mccormack, JUDI Indwelling Urethral Catheter 09/05/23; 143; Indwelling double lumen catheter; 16 Fr; 1; 10; 10; 09/05/23; 1900 09/05/23 143 by Sarika Bustillo RN 09/05/23 190 by Kurt Ricci RN Incision 09/05/23; 1719; [...] Sign Reading Time Taken Comments Blood Pressure 132/76 08/12/2023 9:21 AM CDT Pulse 90 08/12/2023 9:21 AM CDT Temperature - - Respiratory Rate - - Oxygen Saturation 98% 08/12/2023 9:21 AM CDT Inhaled Oxygen Concentration - - Weight 69.9 kg (154 lb) 08/12/2023 9:21 AM CDT Height 165.1 cm (5' 5 ) 08/12/2023 9:21 AM CDT Body Mass Index 25.63 08/12/2023 9:21 AM CDT documented in this encounter Medications at Time [...] 09/07/2023 sodium chloride (OCEAN) 0.65 % Aerosol, [place] Administer 2 Sprays in each nostril every [...] needed. 09/07/2023 documented as of this encounter OR Notes * Jessica - Sara Funk RN - 08/12/2023 9:31 AM CDT Images from the original note were not included. PRE-PROCEDURE INSTRUCTIONS [facility] Name: Lisa Hermosillo Age: 63 y.o. Please [facility] to the[facility] [address] [facility] [address] Date of Procedure: 09/05/23 Please follow these important instructions Discharge home care of venipuncture site. Remove your bandage (pressure dressing/Coban) after 1-3 hours or once bleeding has stopped. Avoid excessive movement of the extremity. Apply ice to site for pain/swelling. Arrive at the time your surgeon's office has instructed. You will receive a call from your surgeon's office with your arrival time. Please note, based on patient and procedure specific considerationspatients are normally told to arrive either 1.5 hours or 2 hours prior to their surgery start time.If you have not been given your arrival time 2 days before your surgery, please contact your surgeon 's office. The decision whether to stay overnight or go home will be made by the attending surgeon. PLEASE NOTIFY your surgeon promptly if you begin to feel ill prior to your surgery. A wound or rash at the surgical site or any other kind of illness may require postponing the surgery to another date for your safety. If this occurs within 24 hours of your surgery, please contact your surgeon's office and then the OR desk at [phone], which is available 08/11. *Notify the [facility] department ([phone]) of any changes in your medical condition or medications. If you have any questions, call the [facility] at [phone]; Tuesday-Tuesday 7:30am-4:00pm Adult Fasting Instructions Outpatient and patients who will be admitted following procedure. Please read before day of procedure. Follow your surgeon's instructions regarding oral intake prior to your scheduled procedure. If no specific instructions were given from your surgeon's office; below are the guidelines from the anesthesia department: Please note, based on patient and procedure specific considerations patients are normally told to arrive either 1.5 hours or 2 hours prior to their surgery start time. If you have not yet been given your surgery start time, please contact your surgeon's office. ALL foods and non-clear liquids All solid food, all liquids you are unable to see through *See Exceptions Below STOP at midnight prior to the morning of your procedure Clear Liquids THE ONLY CLEAR LIQUIDS ALLOWED ARE: Water Gatorade or other sports/electrolyte drinks Juices: Clear Apple, white grape, cranberry (No pulp or cider) Coffee/Tea WITHOUT cream or other additive IF INSTRUCTED, CLEAR nutritional supplement drink No other clear liquids allowed including alcohol *See Exceptions Below STOP 3 hours before your scheduled procedure time: DO NOT EXCEED 1L OF ALLOWED CLEAR LIQUIDS BETWEEN MIDNIGHT AND 3 HOURS PRIOR TO YOUR PROCEDURE At midnight prior to the morning of your procedure STOP all solid foods and non- clear liquids?(all solid food, all alcohol, all liquids you are unable to see through)? May have CLEAR liquids between midnight and 3 hours prior to your procedure time.? Do not exceed 1 Liter of allowed clear liquids between midnight and 3 hours prior to your procedure? CLEAR liquids?allowed: Water, Gatorade or other sports/electrolyte drinks, Juices (clear apple, white grape, cranberry (NO PULP OR CIDER), Coffee/Tea WITHOUT cream or other additive. If instructed, clear nutritional supplement drink? *Exceptions:? Patients with End Stage Kidney Disease, gastroparesis (slow emptying of the stomach)? - Clear liquids must stop 6 hours prior to your procedure? If you are having surgery under the Enhanced Recovery After Surgery (ERAS) protocol, please disregard these instructions and follow the ERAS instructions.? If your surgeon has instructed you to stay on a clear liquid diet prior to the day of surgery, follow your surgeon???s instructions and avoid all food and non- clear liquids? If you have any questions, call the [facility] at [phone]?- Tuesday-Tuesday 7:30 a.m. - 4:00 p.m.? WITHIN 24 HOURS PRIOR TO SURGERY Shower (bathe) and shampoo the evening before and morning of surgery. If instructed to do so, please follow the directions on the provided soap or antibacterial soap. Before you bathe, or shower carefully read all directions and warnings on the product label. Showeror bathe with an antiseptic soap solution chosen by your surgeon, such as Chlorhexidine Gluconate (CHG) with brand names like Hibiclens.? If you are allergic to CHG, Hibiclens or Aloe. DO NOT use product.?Showering will ensure removal of bacteria and minimize risk of infection. Do not use the CHG soap on your face. Avoid getting the soap in your genital area, eyes, ears, mouth, or nose. While using the soap, if you feel itchy or experience red skin, stop using the product and immediately rinse off with water. Tell your care team about this reaction. After rinsing off the soap, do not use regular soap. After your shower, do not apply any powders, lotion, creams, deodorant, or makeup to your skin. Do not shave or remove any hair at the surgical site four days prior to surgery.? Using a clean freshly laundered dry towel pat dry after the showers each time you shower.? Sleep inclean freshly laundered sleepwear and bed linens. DO NOT WEAR JEWELRY (rings, earrings, and body piercings), wigs, or hair pieces to the hospital. We recommend patients abstain from SMOKING or VAPING TOBACCO / NICOTINE / MEDICAL MARIJUANA for as long as possible prior to surgery. DO NOT SMOKE, VAPE OR USE any TOBACCO / NICOTINE/ MEDICAL MARIJUANA PRODUCTS (smoking,?oral,?edibleproducts, ointments, tinctures and concentrates)?on the day of your procedure. DAY OF SURGERY INSTRUCTIONS YOU WILL NEED A RESPONSIBLE ADULT FAMILY MEMBER OR FRIEND WITH YOU UPON DISCHARGE. YOUR SURGERY MAYBE CANCELLED IF YOU DO NOT HAVE A RESPONSIBLE ADULT TO TAKE YOU HOME. It is highly suggested you have a responsible adult with you overnight after receiving anesthesia. WEAR comfortable, loose-fitting clothes to the hospital that will fit over dressings after your surgery. WEAR GLASSES instead of contact lenses to the hospital; bring a case for glasses, dentures, and hearing aids as you will be asked to remove these items before your surgery. BRING your insurance cards and dump truck driver's license or photo ID. DO NOT BRING VALUABLES or large amounts of kent with you to the hospital. BRING any medical devices you need to the hospital, including remotes for stimulators, CPAP, BIPAP,or WOUND VAC machines. Surgical times are estimates and can vary depending on numerous factors. Expect a minimum post-op recovery of 1 hour. The medical staff will provide updates to family and/or friends as appropriate. For surgical procedures, patient may be allowed two adult visitors. Special considerations may be allowed for pediatric patients under the age of 18 years. During your hospital stay you will receive a personal passcode to help protect your health information. This will be a number that you may share with anyone you choose to receive your protected health information (PHI). Family and friends will need to ask for you by name and use the passcode beforeyour care team can share information, either in person or by phone. Please ask those who have your passcode to protect it. Obstructive Sleep Apnea Obstructive sleep apnea is a common and serious sleep disorder that causes you to stop breathing during sleep. The airway repeatedly becomes blocked, limiting the amount of air that reaches your lungs. When this happens, you may snore loudly or make choking noises as you try to breathe. Your brain and body becomes oxygen deprived and you may wake up. This may happen a few times a night, or in more severe cases, several hundred times a night. Sleep apnea can make you wake up in the morning feeling tired or unrefreshed even though you have had a full night of sleep. During the day, you may feel fatigued, have difficulty concentrating or you may even unintentionally fall asleep. This is because your body is waking up numerous times throughout the night, even though you might not be conscious of each awakening. The lack of oxygen your body receives can have negative long-term consequences for your health. This includes: ?? High blood pressure ?? Heart disease including heart attack, abnormal heart rhythms and heart failure ?? Stroke ?? Pre-diabetes and diabetes ?? Depression, memory problems ?? Drowsy driving and car accidents You were screened for Obstructive Sleep Apnea (DILAN) using the STOP-BANG scale. Sleep Apnea may impact your health during and after your anesthesia. Just as importantly, undiagnosed or untreated DILAN can have a negative impact on your overall health. Your screening indicates that you are: 0-2 at low risk for DILAN. We don't feel that you need to do anything based on this score but encourage you to talk to your primary care provider if you have any questions about the screening tool or DILAN. ADVANCED PLANNING FOR MEDICATION USE * Unless otherwise ordered by a member of the [facility] Staff. 1. STOP a. Seven (7) DAYS PRIOR TO SURGERY OR WHEN NOTIFIED IF < SEVEN DAYS: The use of all vitamins, herbal supplements, and other alternative substances. b. Seven (7) DAYS PRIOR TO SURGERY: The use of any UNPRESCRIBED Aspirin, Excedrin and NSAIDs which include Motrin, Ibuprofen, Aleve, and Naprosyn. CURRENT MEDICATION LIST Pre-Surgery Instructions Medication Instructions fexofenadine (KIARRA) 180 mg tablet May take as needed (PRN) medication with sip of water Bacillus coagulans (PROBIOTIC, B. COAGULANS, ORAL) Do not take day of surgery acetaminophen (TYLENOL) 325 mg tablet May take as needed (PRN) medication with sip of water NAPROXEN SODIUM, BULK, MISC Hold for procedure 7 days prior to procedure amitriptyline (ELAVIL) 10 mg tablet Continue to take the evening prior to surgery, as prescribed rizatriptan benzoate (RIZATRIPTAN ORAL) May take as needed (PRN) medication with sip of water dextromethorphan-guaiFENesin (MUCINEX DM) 30-600 mg Tablet Sustained Release 12HR Do not take day of surgery montelukast (SINGULAIR) 10 mg tablet Continue to take the evening prior to surgery, as prescribed cholecalciferol, vitamin D3, (VITAMIN D3 ORAL) Do not take day of surgery multivitamin (MULTIPLE VITAMINS DAILY ORAL) Hold for procedure 7 days prior to procedure COLLAGEN MISC Hold for procedure 7 days prior to procedure TURMERIC ORAL Hold for procedure 7 days prior to procedure FAQs about Surgical Site Infections What is a Surgical Site Infection (SSI)? A surgical site infection is an infection that occurs after a surgery in the part of the body wherethe surgery took place. Most patients who have surgery do not develop an infection. However, infections develop in about 1 to 3 out of every 100 patients who have surgery. Some of the common symptomsof a surgical site infection are: Redness and pain around the area where you had surgery Drainage of cloudy fluid from your surgical wound Fever Can SSI be treated? Yes. Most surgical site infections can be treated with antibiotics. The antibiotic given to you depends on the bacteria (germs) causing the infection. Sometimes patients with SSI also need another surgery to treat infection. What are some of the things that hospitals are doing to prevent SSIs? To prevent SSIs, doctors, nurses, and other healthcare providers: Clean their hands and arms up to their elbows with antiseptic agent just before the surgery. Clean their hands with soap and water or an alcohol-based hand rub before and after caring for eachpatient. May remove some of your hair immediately before surgery using electric clippers if the hair is in the same area where the procedure will occur. They should not shave you with a razor. Wear special hair covers, mask, gowns, and gloves during surgery to keep the surgery area clean. Give you antibiotics before your surgery starts. In most cases, you should get antibiotics within 60 minutes before the surgery starts and the antibiotics should be stopped within 24 hours after surgery. Clean the skin at the site of your surgery with a special soap that kills germs What can I do to help prevent SSIs? Before your surgery: Tell your doctor and other medical problems you may have. Health problems such as allergies, diabetes, and obesity could affect your surgery and your treatment. Quit smoking. Patients who smoke get more infections. Talk to your doctor about how you can quit before your surgery. Do not shave near where you will have surgery. Shaving with a razor can irritate your skin and makeit easier to develop an infection. At the time of your surgery: Speak up if someone tries to shave you with a razor before surgery. Ask why you need to be shaved and talk with your surgeon if you have any concerns. Ask if you will get antibiotics before surgery. After your surgery: Make sure that your healthcare providers clean their hands before examining you, either with soap and water or an alcohol-based hand rub. If you do not see your providers clean their hands, please ask them to do so. Family and friends who visit you should not touch the surgical wound or dressings. Family and friends should clean their hands with soap and water or an alcohol- based hand rub beforeand after visiting you. If you do not see them clean their hands, ask them to clean their hands. What do I need to do when I go home from the hospital? Before you go home, your doctor or nurse should explain everything you need to know about taking care of your wound. Make sure you understand how to care for your wound before you leave the hospital. Always clean your hands before and after caring for your wound. Before you go home, make sure you know who to contact if you have questions or problems after you get home. If you have any symptoms of an infection, such as redness and pain at the surgery site, drainage, or fever, call your doctor immediately. If you have additional questions, please ask your doctor or nurse. Having Surgery? Enhancing Nutrition Before Surgery Can Make a Difference!! Studies have shown that enhancing nutrition prior to surgery plays an important role in a healthierand faster recovery. Surgery adds stress to the body that can result in increased protein and energy needs, unintended weight loss, inflammation, and the lower ability to fight off infections. Consuming a well- balanced diet before surgery, along with the use of oral nutritional drinks can help to support your immune health, help to maintain your strength, and lead to a faster recovery. Follow theguidelines below to help improve your nutritional status before and after surgery. Continue to follow all guidelines provided by the [facility] which includes stopping all vitamins and herbal supplements one week (7 days) prior to surgery. Eat a Well-Balanced Diet: You don???t need to follow a complicated diet prior to surgery to improve your nutrition. Instead, focus on eating a healthy balanced diet filled with a variety of foods from all the food groups. Aim for 3 well balanced meals and between meals snacks daily. Refer to ChooseMyPlate.gov for healthy eating guidelines. Eating adequate protein is essential prior to surgery. Try incorporating lean protein sources or plant-based protein at all your meals. Healthy proteins include fish, chicken, lean beef, eggs, beans,lentils, soy, tofu, and nuts. Dairy products are a great way to increase your protein as well as calcium intake. Choose from skimor 1% milk, low-fat yogurts, low fat cottage cheese. Increase intake of fruits and vegetables. Eat a variety of colorful fruits and vegetables that fillup at least half of your plate. Some high nutrient fruits and vegetables include berries, oranges, bananas, avocados, leafy greens, carrots, broccoli, sweet potatoes, and coughlin peppers. Choose more whole grains such as brown rice, barley, quinoa, oats, or whole grain breads. Increase intake of healthy fats. Choose whole food sources of fats such as nuts, jaja seeds, flaxseed, walnuts, avocado. Choose other heart healthy fats such as olive oil instead of butter. Limit sodium intake by seasoning with fresh herbs and spices instead of salt. Decrease intake of processed foods such as canned vegetables, frozen meals, fast foods, and packaged snack foods. Limit alcohol to no more than 2 serving a day for men and 1 serving a day for women (1 servin oz. beer, 8 oz. malt liquor, 5 oz. wine, 1.5 oz. distilled spirits. Between Meal Snacks: Having snacks between meals is a great way to increase your protein and nutritional intake. Try keeping healthy and quick snacks on hand, as they require little or no preparation time! Great snack ideas include hard boiled eggs, cheese and crackers, string cheese, nut butters with crackers or bread, nuts, yogurt, cereals with low fat milk, oatmeal, fruit smoothies, protein bars, high protein oral nutritional drinks. Stay Well Hydrated: Drinking adequate water is essential in keeping you hydrated and reducing the risk of constipation. Aim for at least 64 ounces of non-caffeinated liquids daily. Water is best, but all types of liquidcontribute to your fluid intake such as broth, soup, milk, juice, tea, and coffee. (Continue with previously prescribed fluid restrictions for other medial concerns) Nutrition Oral Drinks Before and After Surgery: Surgery can create unique nutritional needs that sometimes can???t be met with a normal well-balanced diet alone. Adding high protein nutritional drinks into your diet prior to surgery may help to meet these added surgical needs and aid in a faster recovery. More recent research has also shown thatadding specific immune enhancing nutrients, such as Arginine and Rzjwg-3-Yrnho Acids, may result infewer surgical complications and a quicker recovery. These specific immune enhancing nutrients can be found in the oral nutritional drinks such as Ensure Surgery and Nestle Impact Advanced Recovery. For patients with diabetes or renal disease, please refer to your physician prior to following the below oral nutritional drink guidelines. Reminder for all patients: Stop all vitamins and herbal supplements one week (7 days) prior to surgery. Oral Nutritional Drink Guidelines Prior to Surgery: Consume 2-3 immune enhancing drinks or high protein nutritional drinks daily for 5-7 days before surgery. Immune enhancing drinks include Ensure Surgery, Nestle Impact Advanced Recovery. High protein nutritional drinks should contain 18 gram of protein or more per serving. Examples include Boost High Protein, Ensure Max, Premier Protein to name a few. Check for generic or store brandoptions such as Equate. Supplements available for purchase at [facility] - Ensure Surgery, Ensure Max, Ensure Enlive, (phone: [phone]) Supplements are also available for purchase at [employer] and many other grocery stores and pharmacies. Day of Surgery Guidelines. Follow the Adult Fasting Instructions provided to you by the [facility] for your specific surgery. For questions regarding your day of surgery diet or fasting guidelines please call the [facility] at [phone], Tuesday-Tuesday. 7:30 a.m. to 4 p.m. Oral Nutritional Drink Guidelines After Surgery: When able to start taking a diet after surgery, resume taking 2-3 high protein nutritional drinks (immune enhancing or other high protein nutritional drinks) for 5-7 days. Depending on your nutritional status before or after surgery, you may benefit from continuing with an oral nutritional drink for at least 30 days. A registered dietitian may visit you if admitted to the hospital and help you to determine the typeand duration of the oral nutritional drink to help with your recovery. Questions for a Registered Dietitian: Call [phone] PLEASE NOTIFY your surgeon promptly if you begin to feel ill prior to your surgery. A wound or rash at the surgical site or any other kind of illness may require postponing the surgery to another date for your safety. If this occurs within 24 hours of your surgery, please contact your surgeon's office and then the OR desk at [phone], which is available 08/11. * Louise-OP - Sara Funk RN - 08/12/2023 9:31 AM CDT Images from the original note were not included. LUCIO AGUILAR [facility] Routine Orders Protocol [facility] Approved by: [facility] - Medical Executive Committee Approval Date: 07/07/2023 SCOPE: For all patients being pre-screened in the [facility] for surgery/procedures scheduled at [facility] [place] and the [place] for [facility] Medicine [facility] ORDERS ARE ENTERED ???PER PROTOCOL?? Enter the protocol in the patient's electronic health record using smartphrase: .paceroutineordersprotocol Laboratory Orders: PACE/Anesthesiology Care Screening for Procedures Laboratory exams obtained within 3 months prior to surgery are acceptable if normal, or at baseline. Hematocrit/Hemoglobin ([id number]) Cases of expected major blood loss in patients of any age as evidenced by an order for Type and Cross or Type and Screen. PT/INR (Ejv347) should be drawn day of surgery for patients: Taking Warfarin (Coumadin) or who have had Warfarin (Coumadin) discontinued within prior 7 days BMP (Lab15) patients with: Diabetes Renal disease Dialysis patients: Day of Surgery; If dialysis on day of surgery, post-dialysis Patients taking the following medications: Digoxin Diuretics Steroids BUN (Sjn293)/ Serum Cr (Lab66) When use of intravenous contrast dye is planned Liver function panel (Lab20) in any patient with: Jaundice, or active liver disease HgbA1c: If result not available from within 3 months of [facility] phone or in-person contact, for patients that meet the following conditions: Planned operation is a total hip/knee joint replacement or spinal fusion, Hx of diabetes BMI > 35 (for major surgeries) EKG (EKG) 12 lead EKG EKG obtained within the last 3 months for the following: Known cardiac disease Patients undergoing cardiac, thoracic, or vascular surgery CIED Cardiac Symptoms: Angina, dysrhythmia, palpitations, SOB, PND, S3 Moderate or greater risk surgery with any of the following: Stroke/TIA/CVD, PAD/PVD, CKD (Cr > 2), DM, or Drugs or toxins that alter conduction (e.g., digoxin, cocaine, MAOIs, antiarrhythmics, antipsychotics, TCAs) Medication Orders - In preparation for surgery/procedure: Unless otherwise ordered by a member of the [facility] Anesthesiology Staff. STOP Seven (7) DAYS PRIOR TO SURGERY OR WHEN NOTIFIED IF < SEVEN DAYS: the use of all vitamins, herbal supplements, and other alternative substances. Seven (7) DAYS PRIOR TO SURGERY: The use of any UNPRESCRIBED Aspirin, Excedrin and NSAIDs which include Motrin, Ibuprofen, Aleve, and Naprosyn. The use of phentermine, or medications containing phentermine. GLP-1 agonists (dulaglutide (TRULICITY), exenatide (BYDUREON, BYETTA), liraglutide (SAXENDA, VICTOZA), semaglutide (OZEMPIC, RYBSELSUS, WEGOVY), tirzepatide (MOUNJARO)) If on daily dosing; HOLD ON THE MORINING OF SURGERY/PROCEDURE If on weekly dosing: STOP SEVEN (7) DAYS PRIOR TO SURGERY/PROCEDURE SGLT-2 inhibitor (dapagliflozin (FARXIGA), canagliflozin (INVOKANA), sotagliflozin (INPEFA) and empagliflozin (JARDIANCE)) STOP THREE (3) DAYS PRIOR TO SURGERY/PROCEDURE Ertugliflozin (STEGLATRO)-STOP FOUR (4) DAYS PRIOR TO SURGERY/PROCEDURE 24 HOURS PRIOR TO PLANNED ARRIVAL AT [facility]: use of angiotensin-converting enzyme (JU) inhibitor and angiotensin receptor vandana (ARB). HOLD ON THE MORNING OF SURGERY/PROCEDURE: Diuretics (EXCEPTION: patients with CHF) Opioid ANTAGONISTS Continue-Prescribed medications on usual schedule and take medication day of surgery with sips of water to swallow Aspirin and NSAIDS unless specifically instructed by surgeon to discontinue. Patients taking a gabapentinoid HAIR SPRING WINDER continue usual medication and doses up to and on the day of procedure All other prescription medicines on routine schedule as prescribed, unless instructed otherwise Place sign and held orders for the day of surgery for the following: Acetaminophen (TYLENOL) for adult patients 1000 mg, oral, pre-procedure once If unable to take tablet and those presenting for gastrectomy/gastric bypass, give acetaminophen oral solution (325 mg/10.15 mL) 975 mg, oral, pre-procedure once Antiemetic for adult patients (to be implemented in PreSurg for procedures scheduled for less than 2 hours) Ondansetron (ZOFRAN) ODT, 8 mg, oral, pre-procedure once Anti-inflammatory Medication for adult patients- celecoxib (CELEBREX) Protocol Exclusions: Intracranial surgery, spine fusion surgery, nephrectomy, cardiac, vascular, orurologic surgery and patients with CA/stent within 6 months, age greater than 90 years old HOLD CELECOXIB IF PREOPERATIVE TORADOL ORDERED For patients less than 70 years old, 400 mg, oral, pre-procedure once For patients greater than or equal to 70 years old, 200 mg, oral, pre-procedure once Blood Bank: For surgical procedures, prepare blood per [facility] Blood [facility] Orders and Patient Identification for Blood Products Policy unless additional blood or blood products have been ordered by the provider, then follow provider order. Educational Materials: (to be provided to patients if relevant to their care and present in person to the [facility]) [facility] NPO Guidelines Attachment STL FNS Nutrition Before Surgery Guidelines STL ANES [facility] Instructions for Patient for Insulin Pump Attachment (for diabetic patients only) * Louise-OP - Sara Funk RN - 08/12/2023 9:31 AM CDT No surgeon orders at time of [facility]ACE pre op apt. Surgical consent to be signed day of surgery. * Anesthesia PAT Evaluation - Brandy Murray MD - 08/12/2023 9:15 AM CDT Pre-Procedure Anesthesiology Consultation and Evaluation (PACE) Service 08/12/2023 9:29 AM Name: Lisa Hermosillo Age: 63 y.o. Sex: female CSN: [id number] Procedure(s): LEFORT OSTEOTOMY No Known Allergies Current Outpatient Medications Medication Sig Dispense Refill [...] - no evidence of malignancy. Past Medical History: Diagnosis Date Asthma 09/2018 Back pain Breast cancer Emphysema of lung H/O breast biopsy Kidney stones Motion sickness Temporomandibular disorder Past Surgical History: Procedure Laterality Date HX [...] Alcohol use: Yes Comment: occasional Family History Problem Relation Name Age of [...] discussed yes Smoking/Tobacco Counseling: None Recommendations:None ATTESTATIONS (Not in a hospital admission) I obtained, updated or reviewed the patient's current medications including dosage, frequency, and route of administration. This information was obtained directly from the patient or member services representative or caregiver or another available healthcare resource and updated in [facility] EMR. Social History Tobacco Use Smoking Status Former Current packs/day: 0.00 Average packs/day: 2.0 packs/day for 20.0 years (40.0 ttl pk-yrs) Types: Cigarettes Start date: 01/07/1985 Quit date: 01/07/2005 Years since quittin.6 Smokeless Tobacco Never Patient screened for tobacco use and identified as a Non-User of tobacco. REPORT AND NECESSARY FOLLOW-UP History and physical performed in [facility]; tests (ECG, blood work) reviewed. Abnormal Results Found: no Further Testing or Evaluation Required: no Final [facility] Review: May proceed with procedure/surgery: yes Stop bang score is 1 Based on a STOP-BANG score of 0-2 the patient is deemed low risk for DILAN and there is no follow-up,education nor interventions needed. Evaluation and management of patient, which requires a medically appropriate history and/or examination:62991 - New (15-29 minutes total time) - [...] documented except where noted. Brandy Murray MD documented in this encounter Plan of Treatment Not on file documented as of this encounter Procedures Procedure Name Priority Date/Time Associated Diagnosis Comments HEMOGLOBIN AND HEMATOCRIT Routine 08/12/2023 9:29 AM CDT TYPE AND SCREEN Routine 08/12/2023 9:29 AM CDT BASIC METABOLIC PANEL Pre-Operative 08/12/2023 9:29 AM CDT documented in this encounter Results * HEMOGLOBIN AND HEMATOCRIT (08/12/2023 9:29 AM CDT) HEMOGLOBIN 11.8 11.8 - 14.8 g/dL 08/12/2023 10:56 AM CDT [facility] HEMATOCRIT 37.2 35.5 - 44.0 % 08/12/2023 10:56 AM CDT [facility] Blood Venipuncture / Unknown 08/12/2023 9:29 AM CDT 08/12/2023 10:41 AM CDT Aline Shaw FOREIGN EXCHANGE DEALER HEMATOLOGY ORDERABLE S [facility] CLIA# [id number] [address] [place] [address] * (ABNORMAL) BASIC METABOLIC PANEL (08/12/2023 9:29 AM CDT) SODIUM 142 136 - 145 mmol/L 08/12/2023 11:40 AM [facility] POTASSIUM 4.2 3.5 - 5.0 mmol/L 08/12/2023 11:40 AM [facility]. [facility] CHLORIDE 105 98 - 107 mmol/L 08/12/2023 11:40 AM [facility] CO2 26 22 - 29 mmol/L 08/12/2023 11:40 AM [facility] CALCIUM 9.6 8.6 - 10.2 mg/dL 08/12/2023 11:40 AM [facility] BUN 12 8 - 23 mg/dL 08/12/2023 11:40 AM [facility] CREATININE 1.07(H) 0.51 - 0.95 mg/dL 08/12/2023 11:40 AM [facility] GLUCOSE 84 74 - 99 mg/dL 08/12/2023 11:40 AM [facility] GFR 59(L) >=60 mL/min/1.7 3 sq meter 08/12/2023 11:40 AM [facility] Comment:eGFR calculated with 2020 CKD-EPI equation. Vegetarian diet, extremely high or low muscle mass, and may affect results. Cystatin C with Glomerular Filtration Rate is a suitable alternative for these patients. ANION GAP 11 8 - 16 mmol/L 08/12/2023 11:40 AM [facility] Blood Venipuncture / Unknown 08/12/2023 9:29 AM CDT 08/12/2023 10:41 AM CDT Aline Shaw FOREIGN EXCHANGE DEALER CHEMISTRY ORDERABLES Performing Organization Address City/[facility]/ZIP Co de Phone Number [facility] CLIA# [id number] [address] [place] [address] * TYPE AND SCREEN (08/12/2023 9:29 AM CDT) ABO GROUP A 08/12/2023 11:54 AM CDT [facility] -- [facility] RH (D) TYPE Negative 08/12/2023 11:54 AM CDT [facility] ANTIBODY SCREEN Negative 08/12/2023 11:54 AM CDT [facility] Blood Venipuncture / Unknown 08/12/2023 9:29 AM CDT 08/12/2023 10:41 AM CDT Juan Manuel Farnsworth MD BLOOD BANK ORDERABLE S [facility] -- [facility] CLIA# [id number] [address] [place] [address] documented in this encounter Visit Diagnoses Not on filedocumented in this encounter Care Teams Patient Registrar Relationship Specialty Start Date End Date Almita Smallwood MD [address] [place] [address] PCP - General Internal Medicine 03/14/18 documented as of this encounter
--- OUTSIDE RECORDS SUMMARY | 2024-04-21 12:24 | XMS_ITS | Encounter Summary ---
Author Organization [facility] Address [address] [place] [address] Care Team Providers Care Adventure Challenge Instructor Name Role Phone Almita Smallwood MD Primary Care Provider + Reason for Visit * Reason Comments Med Refill Encounter Details Date Type Department Care Team (Late st Contact Info) Description 07/03/2023 Refill [facility] EAR, NOSE AND THROAT [place] Melecio [facility] [address] [facility] [address] [place] [address] Jorge Luis Black MD [address] [facility]. [facility] [address] [place] [address] Social History Tobacco Use Types Packs/Day Years [...] on filedocumented in this encounter Care Teams Adventure Challenge Instructor Relationship Specialty Start Date End Date Amlita Smallwood MD [address] [place] [address] PCP - General Internal Medicine 03/14/18 documented as of this encounter
--- OUTSIDE RECORDS SUMMARY | 2024-04-21 12:24 | XMS_ITS | Encounter Summary ---
Author Organization [facility] Address [address] [facility] Attn: Epic Prelude ADT [place] [address] Care Team Providers Care Energy Efficiency Finance Manager Name Role Phone Almita Smallwood MD Primary Care Provider + Encounter Details Date Type Department Care Team (Latest Contact Info) Description 04/29/2022 Travel Social History Tobacco Use Types Packs/Day [...] Coronavirus/COVID-19? No / Unsure 04/29/2022 2:25 PM BAKE ROOM WORKER documented as of this encounter Plan of Treatment Not on file documented as of this encounter Visit Diagnoses Not on filedocumented in this encounter Care Teams Energy Efficiency Finance Manager Relationship Specialty Start Date End Date Almita Smallwood MD [address] [place] [address] PCP - General Internal Medicine 03/14/18 documented as of this encounter
--- OUTSIDE RECORDS SUMMARY | 2024-04-21 12:24 | XMS_ITS | Encounter Summary ---
Author Organization [facility] Address [address] [place] [address] Care Team Providers Care Cleaner Touch Up Worker Name Role Phone Almita Smallwood MD Primary Care Provider + Encounter Details Date Type Department Care Team (Late st Contact Info) Description 02/15/2022 Abstract [facility] Internal Medicine - [address] [address] Almita Smallwood MD [address] [place] [address] Social History Tobacco Use Types [...] documented as of this encounter Care Teams Cleaner Touch Up Worker Relationship Specialty Start Date End Date Almita Smallwood MD [address] [place] [address] PCP - General Internal Medicine 03/14/18 documented as of this encounter
--- OUTSIDE RECORDS SUMMARY | 2024-04-21 12:24 | XMS_ITS | Encounter Summary ---
Author Organization [facility] Address [address] [place] [address] Care Team Providers Care Veneer Trimmer Name Role Phone Almita Smallwood MD Primary Care Provider + Reason for Visit * Reason Comments Med Refill Encounter Details Date Type Department Care Team ([facility] st Contact Info) Description 06/10/2022 Refill [facility] [address] [facility] [address] [place] [address] Jorge Luis Black MD [address] [facility]. [facility] [address] [place] [address] Social History Tobacco Use Types [...] Coronavirus/COVID-19? No / Unsure 05/12/2022 10:48 AM BLOWER INSULATOR documented as of this encounter Plan of Treatment Not on file documented as of this encounter Visit Diagnoses Not on filedocumented in this encounter Care Teams Veneer Trimmer Relationship Specialty Start Date End Date Almita Smallwood MD [address] [place] [address] PCP - General Internal Medicine 03/14/18 documented as of this encounter
--- OUTSIDE RECORDS SUMMARY | 2024-04-21 12:24 | XMS_ITS | Encounter Summary ---
Author Organization [facility] Address [address] [facility] Attn: Epic Prelude [place]T [facility] [address] Care Team Providers Care Field Court Researcher Name Role Phone Almita Smallwood MD Primary Care Provider + Encounter Details Date Type Department Care Team (Latest Contact Info) Description 02/16/2022 Travel Social History Tobacco Use Types Packs/Day [...] suspected to have Coronavirus/COVID-19? No / Unsure 02/16/2022 9:19 AM CDT documented as of this encounter Plan of Treatment Not on file documented as of this encounter Visit Diagnoses Not on filedocumented in this encounter Additional Health Concerns Assessment Noted Time PHQ-9 Depression Total Score: 1 10/16/19 22 2:00 PM CDT documented as of this encounter Care Teams Field Court Researcher Relationship Specialty Start Date End Date Almita Smallwood MD [address] [place] [address] PCP - General Internal Medicine 03/14/18 documented as of this encounter
--- OUTSIDE RECORDS SUMMARY | 2024-04-21 12:24 | XMS_ITS | Encounter Summary ---
Author Organization [facility] Address [address] [place] [address] Care Team Providers Care Rebrander Name Role Phone Almita Smallwood MD Primary [...] Date Expiration Date Visits Requested Visits Authorized [id number] Closed Performing Department to Schedule 03/25/2022 04/17/2023 57 60 Encounter Details Date Type Department Care Team (Late st Contact Info) Description 03/25/2022 4:00 PM SQUEEGEE FINISHER - 03/25/2022 11:59 PM SQUEEGEE FINISHER Hospital Encounter [facility] [address] [facility] [address] [place] [address] Zay Chen NP NO ADDRESS ON FILE Nghia Will, Physical Therapist Discharge Disposition: Home or Self Care Social [...] suspected to have Coronavirus/COVID-19? No / Unsure 03/25/2022 4:06 PM SQUEEGEE FINISHER documented as of this encounter Medications at [...] of this encounter Miscellaneous Notes * Therapy Evaluation - Nghia Will, Physical Therapist - 03/25/2022 4:00 PM CST Images from the original note were not included. Physical Therapy Initial Evaluation Patient: Lisa Hermosillo Date: 03/25/2022 Date of : 1960 Referring Provider: Zay Chen NP Diagnosis: M54.41 (ICD-10-CM) - 724.2, 724.3 (ICD-9-CM) - Acute right-sided low back pain with right-sided sciatica Onset Date: 04/2021 Reason for Therapy: Right LBP and right LE pain Precautions: None per prescription Fall Risk: no Next MD Appointment: PRN PN Due: 04-25-22 Script Visits: 04/29 by 05-06-22 Insurance Visits:1 visits used/60 (3 used) visits approved by [facility] by 04-17-22 Authorization: n/a Time In: 4:04 p.m. Time Out: 5:00 p.m,. Total Timed Treatment: 23 minutes Total Treatment Time: 56 minutes SUBJECTIVE History of Injury: Patient is a 62 yr old right hand dominate female with chief complaint of right LBP and right LE pain. She notes sciatica on right side. She notes a chronic history or right LBP/ sciatica . She states she had gained weight about 5 years ago and notice the pain start to come on in her right LE. She lost some weight and the right LE pain resided. She states around the beginningof this year, her right LE pain seemed to return. She started PT and chiropractor , but stopped PT after seeing the chiropractor for a period of time. She has impending MRI lumbar. Fall Risk History: Has the patient experienced two or more falls in the past year or any fall with injury in the past year? no Does the patient feel unsteady walking in the home or community? 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 Prior Pain Level: 0/10 Diagnostic Testing: X-rays: The vertebral body heights are normal. No significant intervertebral disc space narrow. The facets are normal. The sacroiliac joints are unremarkable. IMPRESSION: 1. No significant osseous abnormality. Medical History: Medical history documented in EMR was reviewed with patient and patient reported it is accurate as follows: Past Medical History: Diagnosis Date Asthma 09/2018 Breast cancer H/O breast biopsy Kidney stones Surgical History: Surgical history documented in EMR was reviewed with patient and patient reported it is accurate asfollows: Past Surgical History: Procedure Laterality Date HX BREAST LUMPECTOMY FOR CANCER Left 2017 HX KIDNEY STONE SURGERY HX LYMPH NODE BIOPSY Right Abnormal biopsy, lymph node REMOVED HX MASTECTOMY 11/2016 HX TUBAL LIGATION LITHOTRIPSY 03/2015 Allergy: Allergies documented in EMR were reviewed with patient and patient reported it is accurate as follows: No Known Allergies Medications: Current medications documented in EMR were reviewed with patient and patient reported it is accurate except for cyclobenzaprine (FLEXERIL) 5 mg Tablet. cyanocobalamin (VITAMIN B-12) 250 mcg Tablet Current Outpatient Medications on File Prior to Encounter Medication Sig Dispense Refill tiZANidine (ZANAFLEX) 2 mg Tablet Take 1 [...] current facility-administered medications on file prior to encounter. Pain: Best - 0/10 Worst - 5/10 Currently - 2/10 Description/Location/Frequency/Duration: LBP and tightness in hips and sometimes radiates down to right foot. Alleviating Factors: pain medication, lumbar support. Aggravating Factors: Walking prolonged distance, sitting for too long Functional Limitations: Walking prolonged distance Patient Goal: get back to normal OBJECTIVE Functional Outcomes: Oswestry Low Back Pain Score 22 % Disability (03/26/22 0859) Appearance: Pt is a pleasant female that enters with guarded transitions sit to stand Posture: right iliac rest elevated. Anterior pelvic tilt. Gait: unremarkable Trunk ROM Comments Flexion WNL tightness Extension 25% of normal Right lateral thigh pain Right Left Rotation WNL WNL Strength Comments Lower Abdominals 2/5 Right Left Hip Flexion 4/5 5/5 Hip Extension 4/5 4+/5 Hip Abduction 4/5 4+/5 Knee Extension 4+/5 5/5 Knee Flexion 5/5 5/5 Ankle Dorsiflexion 5/5 5/5 Ankle Plantar Flexion 5/5 5/5 Flexibility: Hamstring Length 90/90 - (R) -5 degrees, (L) -15 degrees. Piriformis Length - (R) Severe hip joint tightness, (L) WNL. Hip Flexor Length - (R) -7 degrees at hip from table, (L) WNL. Prone Knee Flexion - (R) WNL, (L) WNL. Manual Exam: left posterior innominate Special Tests: Straight Leg Raise - Negative bilaterally. Treatment: Instructed in therapy POC. HEP Initiated (see handouts): Supine Colt test hip flexor stretch(x 20 [...] verbalized understanding, demonstrated understanding, and teach-back of home exercise program. Response to Treatment: Pt tolerated session fairly well. ASSESSMENT Pain Level Post-Treatment: 05/28 Rehab Diagnosis: Poor posture, decreased trunk and right hip AROM, decreased Le flexibility, decreased bilateral hip and core strength Rehab Potential: Good with active participation in plan of care. Patient Problems: ROM limitations, strength limitations, pain, impaired mobility, ADL limitations, muscle guarding, knowledge deficit Impression: liyah is a 62 yr old right hand dominate female with chief complaint of right LBP and right LE pain. Patient presents with poor posture: right iliac rest elevated. Anterior pelvic tilt; decreased trunk and right hip AROM, decreased bilateral hamstring and bilateral hip flexor length; decreased bilateral hip and core strength. Patient would benefit from skilled therapy services to address pain management, pain modalities PRN for pain relief, manual therapy for soft tissue mobilization PRN, myofascial release PRN, joint mobilization PRN, there ex for flexibility/ROM and strengthening. Clinical Presentation: Evolving with changing characteristics Evaluation Complexity: Medium Complexity Based on patient's self reporting, therapist's objective findings and professional determinations GOALS: The following goals were developed in [...] HEP Instruction, Strengthening, Flexibility, Manual Therapy, Core Stabilization, Posture/Body Mechanics Education, Mechanical Traction, Modalities Thank you for this referral. Nghia Will [facility] License #: [id number] [facility], [address], [address] [place]. [address] Fax EGEE FINISHER documented in this encounter Plan of Treatment Scheduled Referrals Name Type Priority Associated Diagnoses Orde r Schedule AMB REFERRAL TO PHYSICAL THERAPY Outpatient Referral Routine Acute right-sided low back pain with right-sided sciatica Ordered: 03/04/2022 documented as of this encounter Visit Diagnoses Not on filedocumented in this encounter Care Teams Rebrander Relationship Specialty Start Date End Date Almita Smallwood MD [address] [place] [address] PCP - General Internal Medicine 03/14/18 documented as of this encounter
--- OUTSIDE RECORDS SUMMARY | 2024-04-21 12:24 | XMS_ITS | Encounter Summary ---
Author Organization [facility] Address [address] [place] [address] Care Team Providers Care Program Dir Name Role Phone Almita Smallwood MD Primary Care Provider + Reason for Visit * Reason Onset Date Comments Needs Appointment 01/07/2022 Encounter Details Date Type Department Care Team (Late st Contact Info) Description 01/07/2022 Telephone [facility] Internal Medicine - [id number] [place] [address] Almita Smallwood MD [address] [place] [address] Needs Appointment Social History Tobacco [...] * Telephone Encounter - Cheryl Moran - 01/07/2022 11:03 AM CDT Lvm x1 01/07/2022 @ 1104am * Telephone Encounter - Cheryl Moran - 01/07/2022 11:02 AM CDT ----- Message from Lisa Hermosillo sent at 01/07/2022 10:42 AM CDT ----- Regarding: Part 2 of my shingles Contact: I am pretty sure that I was supposed to get another blood test because my iron was low? (I thought that was why I was there today- I don???t pay attention apparently) I am not seeing the orders for it. Can you confirm for me please and I will take care of it before it slips my mind again. documented in this encounter Plan of Treatment Not on file documented as of this encounter Visit Diagnoses Not on filedocumented in this encounter Additional Health Concerns Assessment Noted Time PHQ-9 Depression Total Score: 1 10/16/19 22 2:00 PM CDT documented as of this encounter Care Teams Program Dir Relationship Specialty Start Date End Date Almita Smallwood MD [address] [place] [address] PCP - General Internal Medicine 03/14/18 documented as of this encounter
--- OUTSIDE RECORDS SUMMARY | 2024-04-21 12:24 | XMS_ITS | Encounter Summary ---
Author Organization [facility] Address [address] [facility] Attn: [place] [address] Care Team Providers Care Product Technician Name Role Phone Almita Smallwood MD Primary Care Provider + Encounter Details Date Type Department Care Team (Latest Contact Info) Description 05/12/2022 Travel Social History Tobacco Use Types Packs/Day [...] Coronavirus/COVID-19? No / Unsure 05/12/2022 10:48 AM WELDER GAS documented as of this encounter Plan of Treatment Not on file documented as of this encounter Visit Diagnoses Not on filedocumented in this encounter Care Teams Product Technician Relationship Specialty Start Date End Date Almita Smallwood MD [address] [place] [address] PCP - General Internal Medicine 03/14/18 documented as of this encounter
--- OUTSIDE RECORDS SUMMARY | 2024-04-21 12:24 | XMS_ITS | Encounter Summary ---
Author Organization [facility] Address [address] [place] [address] Care Team Providers Care Controls Designer Name Role Phone Almita Smallwood MD Primary Care Provider + Reason for Referral * Eval and Treat (Routine) - Closed Specialty Diagnoses / Procedures Referred By Tati campos Referred To Contact Perioperative Diagnoses Screening for colon cancer Procedures COLON Gilmer Nogueira MD NO ADDRESS ON FILE [facility] [address] [place] [address] Referral ID Status Reason Start Date Expiration Date Visits Requested Visits Authorized [id number] Closed Performing Department to Schedule 01/11/2022 01/11/2023 3 3 Reason for Visit * Reason Onset Date Comments Referral 01/11/2022 Encounter Details Date Type Department Care Team (Late st Contact Info) Description 01/11/2022 Telephone [facility] Internal Medicine - [facility] [address] [place] [address] Almita Smallwood MD [address] [place] [address] Referral Social History Tobacco Use [...] as of this encounter Miscellaneous Notes * Addendum Note - Emiliano Leary, RN - 01/18/2022 1:51 PM CDTAddended by: EMILIANO LEARY on: 01/18/2022 01:51 PM Modules accepted: Orders * Telephone Encounter - Mccann Vincentjero - 01/18/2022 11:11 AM CDT Patient stated that this referral needs to be for a diagnostic for rectal bleeding and not for a screening. She would need to have referral changed and sent back over for appointment LM 1 on 01/18/22 at 135 pm that we have nothing in chart stating pt has rectal bleeding need pt to call back to discuss this. Consulted with Dr Smallwood and orders changed to Diag Colonoscopy and faxed to Dr Nogueira's office at [phone].Pt aware. * Telephone Encounter - Poonam Emerson - 01/15/2022 9:53 AM CDT Name of PCP Provider or Prescribing Provider: Almita Smallwood MD Next office visit: 01/12/2022 Caller: Lisa Hermosillo Message: Patient called in stated referral was sent as a screening exam stated she need referral resent as diagnostic colonoscopy to Dr Nogueira and [facility] Dr Gilmer Nogueira PH [phone] FAX [phone] Call back Number: [phone] (home) Faxed last OV note and GI ref to DR Nogueira on [phone]. * Telephone Encounter - Lauren Jett - 01/15/2022 9:29 AM CDT Provider: Almita Smallwood MD Next office visit: 01/12/2022 Caller: Mena Message: Mena is needing to get the referral to Dr Nogueira for her to be able to schedule for her Diagnostic colonoscopy They are also needing to have office notes and has to mention for the rectal bleeding and list of medications Dr Gilmer Nogueira [phone] FAX [phone] Mena would like to get a call when it has been sent to there office Call-back Number: [phone] * Telephone Encounter - Noemi Espinoza - 01/11/2022 2:05 PM CDT GI referral placed. * Telephone Encounter - Neomi Espinoza - 01/11/2022 2:03 PM CDT ----- Message from Lisa Hermosillo sent at 01/11/2022 1:25 PM CDT ----- Regarding: Referral Contact: [place] Doctor Cl! I reached out to Dr. Gilmer Nogueira at [facility] and they said I needed a referral from you. They are at [phone]. If you could contact them, it would be very much appreciated. Also, I have 0 deductible and 0 out of pocket for the rest of the year so that thing on my back that my quinton wings have yet to sprout from??? I want to get it taken care of in case it is making me stink or toxic. : ) I apologize but the last time we discussed it I had bad bad insurance. I don???t remember what typeof doctor I need to dig it out. I won???t ask again, I swear. Mena Hermosillo documented in this encounter Plan of Treatment Scheduled Referrals Name Type Priority Associated Diagnoses Order Schedule AMB REFERRAL TO GASTROENTEROLOGY Outpatient Referral Routine Screening for colon cancer Ordered: 01/11/2022 documented as of this encounter Visit Diagnoses Diagnosis Screening for colon cancer- Primary Special screening for malignant neoplasms, colon Bright red blood per rectum Hemorrhage of rectum and anus documented in this encounter Additional Health Concerns Assessment Noted Time PHQ-9 Depression Total Score: 1 10/16/19 22 2:00 PM CDT documented as of this encounter Care Teams Controls Designer Relationship Specialty Start Date End Date Almita Smallwood MD [address] [place] [address] PCP - General Internal Medicine 03/14/18 documented as of this encounter
--- OUTSIDE RECORDS SUMMARY | 2024-04-21 12:24 | XMS_ITS | Encounter Summary ---
Author Organization [facility] Address [address] [facility] Attn: Epic [facility] [place] [address] Care Team Providers Care Yard Cleaner Name Role Phone Almita Smallwood MD Primary Care Provider + Encounter Details Date Type Department Care Team (Latest Contact Info) Description 03/25/2022 Travel Social History Tobacco Use Types Packs/Day [...] Coronavirus/COVID-19? No / Unsure 03/25/2022 4:06 PM EMERGENCY DISPATCH OPERATOR documented as of this encounter Plan of Treatment Not on file documented as of this encounter Visit Diagnoses Not on filedocumented in this encounter Care Teams Yard Cleaner Relationship Specialty Start Date End Date Almita Smallwood MD [address] [place] [address] PCP - General Internal Medicine 03/14/18 documented as of this encounter
--- OUTSIDE RECORDS SUMMARY | 2024-04-21 12:24 | XMS_ITS | Encounter Summary ---
Author Organization [facility] Address [address] [facility] Attn: [place] [address] Care Team Providers Care Digital Analytics Manager Name Role Phone Almita Smallwood MD Primary Care Provider + Encounter Details Date Type Department Care Team (Latest Contact Info) Description 04/16/2022 Travel Social History Tobacco Use Types Packs/Day [...] Coronavirus/COVID-19? No / Unsure 04/16/2022 7:59 AM INSURANCE FOLLOW UP REP documented as of this encounter Plan of Treatment Not on file documented as of this encounter Visit Diagnoses Not on filedocumented in this encounter Care Teams Digital Analytics Manager Relationship Specialty Start Date End Date Almita Smallwood MD [address] [place] [address] PCP - General Internal Medicine 03/14/18 documented as of this encounter
--- OUTSIDE RECORDS SUMMARY | 2024-04-21 12:24 | XMS_ITS | Encounter Summary ---
Author Organization [facility] Address [address] [place] [address] Care Team Providers Care Check Out Clerk Name Role Phone Almita Smallwood MD Primary Care Provider + Reason for Visit * Reason Onset Date Comments MyChart Message 02/16/2022 Encounter Details Date Type Department Care Team (Late st Contact Info) Description 02/16/2022 Telephone [facility] Internal Medicine - [facility] [address] [place] [address] Almita Smallwood MD [address] [place] [address] MyChart Message Social History Tobacco Use Types Packs/Day Years [...] encounter Miscellaneous Notes * Telephone Encounter - Snow Damon - 02/16/2022 9:21 AM CDT Called and made appointment for patient with Nam 02/18/2022 at 11:30 with a 11:25 arrival time * Telephone Encounter - Snow Damon - 02/16/2022 9:20 AM CDT ----- Message from Jennifer Kerr APRN sent at 02/16/2022 8:11 AM CDT ----- Regarding: FW: leg pain Contact: Please have her set up an appointment to have her back pain evaluated. Any provider is fine. ----- Message ----- From: Cheryl Moran Sent: 02/16/2022 7:59 AM CDT To: Jennifer Kerr APRN Subject: FW: leg pain ----- Message ----- From: Lisa Hermosillo Sent: 02/15/2022 7:36 PM CDT To: [facility] Nurse Subject: leg pain Oh Gosh! Sorry for the delay. I have not had my lower back x-rayed by you all. The Chiropractor didbut I think I would like to have it done again if it is okay with you. I did start doing PT but ended up stopping because and had started going to the chiropractor at the same time and had made a significant money contribution to him so I was just going to let him take care of it. documented in this encounter Plan of Treatment Not on file documented as of this encounter Visit Diagnoses Not on filedocumented in this encounter Additional Health Concerns Assessment Noted Time PHQ-9 Depression Total Score: 1 10/16/19 22 2:00 PM CDT documented as of this encounter Care Teams Check Out Clerk Relationship Specialty Start Date End Date Almita Smallwood MD [address] [place] [address] PCP - General Internal Medicine 03/14/18 documented as of this encounter
--- OUTSIDE RECORDS SUMMARY | 2024-04-21 12:25 | XMS_ITS | Encounter Summary ---
Author Organization [facility] Address [address] [place] [address] Care Team Providers Care Fabric Lay Out Worker Name Role Phone Almita Smallwood MD Primary Care Provider + Encounter Details Date Type Department Care Team (Late st Contact Info) Description 06/30/2021 Abstract [facility] Internal Medicine [address] [address] Almita Smallwood MD [address] [place] [address] Social History Tobacco Use Types [...] Assessment Noted Time PHQ-9 Depression Total Score: 2 02/15/20 20 3:00 PM CDT documented as of this encounter Care Teams Fabric Lay Out Worker Relationship Specialty Start Date End Date Almita Smallwood MD [address] [place] [address] PCP - General Internal Medicine 03/14/18 documented as of this encounter
--- OUTSIDE RECORDS SUMMARY | 2024-04-21 12:25 | XMS_ITS | Encounter Summary ---
Author Organization [facility] Address [address] [place] [address] Care Team Providers Care Compliance Examiner Name Role Phone Almita Smallwood MD Primary Care Provider + Reason for Referral * CT Scan (Routine) - Closed Specialty Diagnoses / Procedures Referred By Contac t Referred To Contact Radiology Diagnoses Chronic pansinusitis Procedures CT SINUS FACIAL BONES WO CONTRAST Jorge Luis Black MD [address] [facility]. [facility] [address] [place] [address] [facility] [address] Scan [address] [place] [address] Referral ID Status Reason Start Date Expiration Date V isits Requested Visits Authorized [id number] Closed ST[facility] CTS 06/26/2020 07/25/2020 1 1 AIR CONDITIONING INSTALLER Reason for Visit * Reason Comments Sinusitis Encounter Details Date Type Department Care Team (Late st Contact Info) Description 06/20/2020 2:15 PM AUTO AIR CONDITIONING INSTALLER Office Visit [facility] EAR, NOSE AND THROAT JEFFREY Majano [facility] [address] [facility] [address] [place] [address] Jorge Luis Black MD [address] [facility]. [facility] [address] [place] [address] Seasonal allergic rhinitis, unspecified trigger (Primary Dx); Chronic pansinusitis Social History Tobacco Use Types Packs/Day Years [...] Exposure Response Date Recorded In the last month, have you been in contact with someone who was confirmed or suspected to have Coronavirus / COVID-19? No / Unsure 06/20/2020 1:52 PM AUTO AIR CONDITIONING INSTALLER documented as of this encounter Progress Notes * Jorge Luis Black MD - 06/20/2020 2:20 PM CST Subjective: Reason for Visit: Sinusitis HPI: Lisa Hermosillo is a 60 y.o. female presents with Sinusitis Pt presents at the request of Dr Luo for evaluation of sinusitis. Pt stated that she developssinus pressure and facial pain. Pt stated this has been ongoing since October of last year. Pt reportsthat infections are going down into my chest . Pt reports that she's been on 2 rounds of abx through GP without success. Pt stated that she has had cardiac work up, pulmonary work up and is now wanting to determine if there is something in my apartment that could be causing this. She has sneezing fits and some eye dryness but no itching. She was evaluated with PFT's that looked good and was switched from albuterol to trilogy. She has ongoing facial pressure and congestion but denies purulent drainage. Records reviewed: Pulmonary note with referral for chronic sinusitis symptoms. Review of Systems Review of Systems Constitutional: Negative for activity change, appetite change, chills, fatigue, fever and unexpected weight change. HENT: Positive for congestion, facial swelling, postnasal drip, rhinorrhea, sinus pressure and sinus pain. Negative for dental problem, drooling, ear discharge, ear pain, hearing loss, mouth sores, nosebleeds, sneezing, sore throat, tinnitus, trouble swallowing and voice change. Eyes: Negative for photophobia, pain, discharge, redness, itching and visual disturbance. Respiratory: Negative for apnea, cough, choking, chest tightness, shortness of breath, wheezing andstridor. Cardiovascular: Negative for chest pain, palpitations and leg swelling. Gastrointestinal: Negative for abdominal pain, blood in stool, constipation, diarrhea, nausea and vomiting. Endocrine: Negative for cold intolerance and heat intolerance. Genitourinary: Negative for difficulty urinating, frequency, hematuria and urgency. Musculoskeletal: Negative for arthralgias, back pain, joint swelling, neck pain and neck stiffness. Skin: Negative for color change and wound. Allergic/Immunologic: Negative for environmental allergies, food allergies and immunocompromised state. Neurological: Negative for dizziness, tremors, seizures, syncope, facial asymmetry, speech difficulty, weakness, light-headedness, numbness and headaches. Hematological: Negative for adenopathy. Does not bruise/bleed easily. Psychiatric/Behavioral: Negative for agitation and confusion. The patient is not nervous/anxious. Past Medical History: Diagnosis Date ??? Breast cancer ??? H/O breast biopsy ??? Kidney stones Current Outpatient Medications on File Prior to Visit Medication Sig Dispense Refill ??? gidddutcqih-ivfsjavutwxt-rvoohhuaan (TRELEGY ELLIPTA) 100-62.5-25 mcg Disk with Device Take 1 Puff by inhalation daily. 2 Each 0 ??? tamoxifen (NOLVADEX) 20 mg tablet Take 1 Tablet (20 mg) by mouth daily. 90 Tablet 3 ??? levocetirizine (Xyzal) 5 mg tablet Take 1 Tablet (5 mg) by mouth late in the day. 30 Tablet 1 ??? azelastine (ASTELIN) 137 mcg/actuation nasal spray Administer 2 Sprays in each nostril 2 times daily. 30 mL 0 ??? ipratropium bromide (ATROVENT) 42 mcg (0.06 %) Fowler, Non-Aerosol USE 1 TO 2 SPRAY(S) IN EACH NOSTRIL THREE TIMES DAILY ??? multivitamin (MULTIPLE VITAMINS DAILY ORAL) Take 6 Each by mouth daily. Gummy vitamins ??? albuterol HFA 90 mcg inhaler Take 2 Puffs by inhalation every 4 hours as needed for Shortness of Breath. 6.7 Gram 3 ??? dextromethorphan-guaiFENesin (MUCINEX DM) 30-600 mg Tablet Sustained Release 12HR Take 1 Tabletby mouth every 12 hours. ??? pseudoephedrine (SUDAFED) 30 mg tablet Take 60 mg by mouth every 4 hours as needed. ??? cyanocobalamin (VITAMIN B-12) 250 mcg Tablet Take 250 mcg by mouth daily. ??? COLLAGEN MISC by Misc.(Non-Drug; Combo Route) route. ??? TURMERIC ORAL Take by mouth. No current facility-administered medications on file prior to visit. No Known Allergies Social History Tobacco Use ??? Smoking status: Former Smoker Packs/day: 2.00 Years: 20.00 Pack years: 40.00 Types: Cigarettes Quit date: 01/07/2005 Years since quittin.4 ??? Smokeless tobacco: Never Used Substance Use Topics ??? Alcohol use: Yes Comment: occasional ??? Drug use: No TOBACCO COUNSELING She is not a tobacco user. Objective: General Appearance: alert, cooperative, no distress and appears stated age HEENT: Head/Face: normocephalic, atraumatic, face symmetric at rest and with facial expression; mass or skin lesions absent. TMJ: click, crepitus or palpable pain absent. Eyes: extraocular movement intact, pupils equal round and reactive to light and accomodation bilateral. Ears: External Pinna: no cutaneous lesions, normal shape, non tender. Microscopic exam: was not External ear canals Right: patent Left: patent Tympanic membrane and middle ear space: Right: Normal Left: Normal External nose: non tender, deformity absent. Nose: normal. septum midline, mucosa normal, no drainage or sinus tenderness, no lesions or masses. Voice: clear with absence of hoarseness or stridor. Oral Cavity: lips, mucosa, and tongue normal; teeth and gums: normal, tonsils normal size , bimanual exam negative, no lesions or masses. Salivary Glands: parotid or submandibular glands without mass or abnormality. Neck: no palpable adenopathy, skin lesions, or masses absent Thyroid: normal. Larynx: normal VC mobility, no lesions or masses absent. Exam by mirror exam Hypopharynx: no mass, lesions or pooling absent Resp: distress, labored respirations absent. Neuro: CN II-XII grossly intact, alert, oriented age appropriate, absence of focal deficits. Labs reviewed: Lab Results Component Value Date/Time TSH 1.55 02/15/2020 03:46 PM Lab Results Component Value Date/Time CA 9.7 02/15/2020 03:46 PM PFT's no upper airway obstruction with a normal flow loop and normal volumes. . Assessment: ICD-10-CM ICD-9-CM 1. Seasonal allergic rhinitis, unspecified trigger J30.2 477.9 montelukast (Singulair) 10 mg tablet 2. Chronic pansinusitis J32.[address] SINUS FACIAL BONES WO CONTRAST She likely has allergies but needs sinusitis ruled out with the CT. I will add Singulair to her meds to see if that controls her symptoms and she is getting rid of her plants. Continue flonase, xyzaland the Singulair. Plan: Return after the CT for ongoing management. Orders Placed This Encounter ??? CT SINUS FACIAL BONES WO CONTRAST ??? montelukast (Singulair) 10 mg tablet AIR CONDITIONING INSTALLER documented in this encounter Plan of Treatment Not on file documented as of this encounter Results * CT SINUS FACIAL BONES WO CONTRAST (07/03/2020 12:15 PM CDT) Anatomical Region Laterality Modality Head Computed Tomogra phy 07/03/2020 12:3 4 PM CDT Impressions 07/03/2020 2:50 PM CDT Impression: 1. ??Minimal sinus mucosal disease. 2. ??Anatomic variation noted as described. Keros 3 depth of the right olfactory recess and bilateral Javon cells. The examination was performed with the adjustment of mA according to the patient size and/or the use of Iterative Reconstruction Technique. DICTATION LOCATION: Location [address] [place] [address] 07/03/2020 2:50 PM CDT EXAM: CT SINUSES DATE: 07/03/2020 12:15 PM CLINICAL INDICATION: ??Maxillofacial pain. Sinusitis. No prior sinus surgery. TECHNIQUE: ?? Multiple contiguous axial CT images were obtained through the paranasal sinuses without the use of intravenous contrast material. Coronal reformations were rendered utilizing the axial image data set. CONTRAST: None. COMPARISON: None. FINDINGS: ?? The visualized intracranial structures are unremarkable. ??The globes, extraocular musculature, and retro-orbital fat is unremarkable. The visualized mastoid air cells are clear. ??The frontal sinuses and recesses are clear. ??The ethmoid air cells are clear. ??The sphenoid sinuses are clear. ??The sphenoid sinus ostia and sphenoethmoidal recesses are patent. ?? The maxillary sinuses sinuses are clear. ??The ostiomeatal units are clear. The cribriform plate is intact. Asymmetry of the olfactory recesses measuring over 8 mm on the right consistent with a Keros 3 classification and 7 mm on the left. The lamina papyracea is intact bilaterally. Javon cells are noted bilaterally. No Onodi cell is identified. Sphenoid sinus pneumatization pattern is sellar in appearance and relatively symmetric.. There is no supraorbital pneumatization and the anterior ethmoidal notch abuts the fovea ethmoidalis/lateral lamellae. No areas of osseous destruction or bony dehiscence are identified. No abnormality is identified in the visualized soft tissues. INCIDENTAL FINDINGS: ??None. Procedure Note Bg Oseguera MD - 07/03/2020 EXAM: CT SINUSES DATE: 07/03/2020 12:15 PM CLINICAL INDICATION: Maxillofacial pain. Sinusitis. No prior sinus surgery. TECHNIQUE: Multiple contiguous axial CT images were obtained through the paranasal sinuses without the use of intravenous contrast material. Coronal reformations were rendered utilizing the axial image data set. CONTRAST: None. COMPARISON: None. FINDINGS: The visualized intracranial structures are unremarkable. The globes, extraocular musculature, and retro-orbital fat is unremarkable. The visualized mastoid air cells are clear. The frontal sinuses and recesses are clear. The ethmoid air cells are clear. The sphenoid sinuses are clear. The sphenoid sinus ostia and sphenoethmoidal recesses are patent. The maxillary sinuses sinuses are clear. The ostiomeatal units are clear. The cribriform plate is intact. Asymmetry of the olfactory recesses measuring over 8 mm on the right consistent with a Keros 3 classification and 7 mm on the left. The lamina papyracea is intact bilaterally. Javon cells are noted bilaterally. No Onodi cell is identified. Sphenoid sinus pneumatization pattern is sellar in appearance and relatively symmetric.. There is no supraorbital pneumatization and the anterior ethmoidal notch abuts the fovea ethmoidalis/lateral lamellae. No areas of osseous destruction or bony dehiscence are identified. No abnormality is identified in the visualized soft tissues. INCIDENTAL FINDINGS: None. Impression: 1. Minimal sinus mucosal disease. 2. Anatomic variation noted as described. Keros 3 depth of the right olfactory recess and bilateral Javon cells. The examination was performed with the adjustment of mA according to the patient size and/or the use of Iterative Reconstruction Technique. DICTATION LOCATION: Location - [facility] Jorge Luis Black MD CT ORDERABLES documented in this encounter Visit Diagnoses Diagnosis Seasonal allergic rhinitis, unspecified trigger- Primary Chronic pansinusitis Other chronic sinusitis Chronic pansinusitis Other chronic sinusitis documented in this encounter Additional Health Concerns Assessment Noted Time PHQ-9 Depression Total Score: 2 02/15/20 20 3:00 PM CDT documented as of this encounter Care Teams Compliance Examiner Relationship Specialty Start Date End Date Almita Smallwood MD [address] [place] [address] PCP - General Internal Medicine 03/14/18 documented as of this encounter
--- OUTSIDE RECORDS SUMMARY | 2024-04-21 12:25 | XMS_ITS | Encounter Summary ---
Author Organization [facility] Address [address] [place] [address] Care Team Providers Care Lithograph Press Operator Tinware Name Role Phone Almita Smallwood MD Primary Care Provider + Reason for Visit * Reason Onset Date Comments Results 11/20/2021 Encounter Details Date Type Department Care Team ([facility] Contact Info) Description 11/20/2021 Telephone [facility] Internal Medicine - [place] [id number] [place] [address] Almita Smallwood MD [address] [place] [address] Results Social History Tobacco Use [...] suspected to have Coronavirus/COVID-19? No / Unsure 10/23/2021 1:16 PM CDT documented as of this encounter Miscellaneous Notes * Telephone Encounter - Christin Leary RN - 11/20/2021 3:02 PM CDT ----- Message from Almita Smallwood MD sent at 11/18/2021 2:23 AM CDT ----- Please call patient with following results. I apologize for the delay in results. Some minor abnormalities on her labs we want to follow up on.Two of three liver numbers mildly elevated, can be due to many potential causes including a spurious reading, recent or heavy alcohol intake, excess weight or high cholesterol which both can cause fat deposition in the liver, excess Tylenol, etc. Would recommend working on healthy diet, regular exercise, weight loss if appropriate, and repeating a hepatic function panel in 1 mo. If still elevated, we will do additional evaluation. She is also a little more anemic than before, would check iron panel and ferritin in 1 month None of this is urgent Pt called back and aware per Dr Smallwood's orders of all the above pt aware 2 of 3 liver enzymes elevated so pt aware can be caused from a number of reasons.Pt aware.Pt will come in Have labs rechecked week of 12/14-12/18/21 and will go to a [facility] lab orders placed for lab work requested per Dr Smallwood.Pt aware A little more anemic needs iron panel and Ferritin in 1 month so orders placed.Pt aware will goto [facility] in lab in 1 month.Pt states got braces so thinks she is not absorbing her food.Pt verbalizes understanding of all the results listed above per Dr Smallwood. * Telephone Encounter - Christin Leary RN - 11/20/2021 2:05 PM CDT ----- Message from Almita Smallwood MD sent at 11/18/2021 2:23 AM CDT ----- Please call patient with following results. I apologize for the delay in results. Some minor abnormalities on her labs we want to follow up on.Two of three liver numbers mildly elevated, can be due to many potential causes including a spurious reading, recent or heavy alcohol intake, excess weight or high cholesterol which both can cause fat deposition in the liver, excess Tylenol, etc. Would recommend working on healthy diet, regular exercise, weight loss if appropriate, and repeating a hepatic function panel in 1 mo. If still elevated, we will do additional evaluation. She is also a little more anemic than before, would check iron panel and ferritin in 1 month None of this is urgent LM x 1 on 11/20/21 at 206 pm documented in this encounter Plan of Treatment Not on file documented as of this encounter Procedures Procedure Name Priority Date/Time Associated Diagnosis Comments IRON, TIBC, AND PERCENT SATURATION Routine 01/20/2022 11:48 AM CDT Chronic anemia FERRITIN Routine 01/20/2022 11:48 AM CDT Chronic anemia HEPATIC FUNCTION PANEL Routine 01/20/2022 11:48 AM CDT Elevated LFTs documented in this encounter Results * FERRITIN (01/20/2022 11:48 AM CDT) FERRITIN 145 16 - 232 ng/mL [facility] Comment: FASTING:YES FASTING: YES Test Performed at: [facility] [address] [place] [address] ??[phone] Luis Enrique Anderson D.O., MPH Blood 01/20/2022 11:4 8 AM CDT 01/20/2022 11:49 AM CDT Almita Smallwood MD CHEMISTRY [facility] [phone] [facility] [address] * IRON, TIBC, AND PERCENT SATURATION (01/20/2022 11:48 AM CDT) IRON 76 45 - 160 mcg/dL [facility] TIBC 270 250 - 450 mcg/dL (calc) [facility] IRON % SATURATION 28 16 - 45 % (calc) [facility] Comment: FASTING:YES FASTING: YES Test Performed at: [facility] [address] [place] [address] ??[phone] Luis Enrique Anderson D.O., MPH Blood 01/20/2022 11:4 8 AM CDT 01/20/2022 11:49 AM CDT Almita Smallwood MD CHEMISTRY [facility] [phone] [facility] [employer] [address] * HEPATIC FUNCTION PANEL (01/20/2022 11:48 AM CDT) TOTAL PROTEIN 6.7 6.1 - 8.1 g/dL [facility] ALBUMIN 3.8 3.6 - 5.1 g/dL [facility] GLOBULIN 2.9 1.9 - 3.7 g/dL (calc) [facility] ALBUMIN/GLOBULIN RATIO 1.3 1.0 - 2.5 (calc) [facility] BILIRUBIN TOTAL 0.3 0.2 - 1.2 mg/dL [facility] BILIRUBIN DIRECT 0.0 < OR = 0.2 mg/dL [facility] BILIRUBIN INDIRECT 0.3 0.2 - 1.2 mg/dL (calc) [facility] ALKALINE PHOSPHATASE 58 37 - 153 U/L [facility] AST 20 10 - 35 U/L [facility] ALT 14 6 - 29 U/L [facility] Comment: FASTING:YES FASTING: YES Test Performed at: [facility] ??[phone] Luis Enrique Anderson D.O., MPH Blood 01/20/2022 11:4 8 AM CDT 01/20/2022 11:49 AM CDT Almita Smallwood MD CHEMISTRY [facility] [phone] [address] documented in this encounter Visit Diagnoses Diagnosis Chronic anemia- Primary Anemia, unspecified Elevated LFTs Other abnormal blood chemistry documented in this encounter Additional Health Concerns Assessment Noted Time PHQ-9 Depression Total Score: 1 10/16/19 22 2:00 PM CDT documented as of this encounter Care Teams Lithograph Press Operator Tinware Relationship Specialty Start Date End Date Almita Smallwood MD [address] [place] [address] PCP - General Internal Medicine 03/14/18 documented as of this encounter
--- OUTSIDE RECORDS SUMMARY | 2024-04-21 12:25 | XMS_ITS | Encounter Summary ---
Author Organization [facility] Address [address] [place] [address] Care Team Providers Care Contract Accountant Name Role Phone Almita Smallwood MD Primary Care Provider + Encounter Details Date Type Department Care Team (Late st Contact Info) Description 07/09/2021 Orders Only [facility] EAR, NOSE AND THROAT [address] [place] [address] Yanna Moon Social History Tobacco Use Types Packs/Day Years [...] documented as of this encounter Care Teams Contract Accountant Relationship Specialty Start Date End Date Almita Smallwood MD [address] [place] [address] PCP - General Internal Medicine 03/14/18 documented as of this encounter
--- OUTSIDE RECORDS SUMMARY | 2024-04-21 12:25 | XMS_ITS | Encounter Summary ---
Author Organization [facility] Address [address] [place] [address] Care Team Providers Care Bobbin Cleaner Hand Name Role Phone Almita Smallwood MD Primary Care Provider + Encounter Details Date Type Department Care Team (Late st Contact Info) Description 08/28/2021 Abstract [facility] Internal Medicine [address] [address] Almita Smallwood MD [address] [place] [address] Social History Tobacco Use Types [...] suspected to have Coronavirus/COVID-19? No / Unsure 07/30/2021 10:05 AM CDT documented as of this encounter Plan of Treatment Not on file documented as of this encounter Visit Diagnoses Not on filedocumented in this encounter Additional Health Concerns Assessment Noted Time PHQ-9 Depression Total Score: 2 02/15/20 20 3:00 PM CDT documented as of this encounter Care Teams Bobbin Cleaner Hand Relationship Specialty Start Date End Date Almita Smallwood MD [address] [place] [address] PCP - General Internal Medicine 03/14/18 documented as of this encounter
--- OUTSIDE RECORDS SUMMARY | 2024-04-21 12:25 | XMS_ITS | Encounter Summary ---
Author Organization [facility] Address [address] [place] [address] Care Team Providers Care Garland Machine Operator Name Role Phone Almita Smallwood MD Primary Care Provider + Reason for Referral * CT Scan (Routine) - Closed Specialty Diagnoses / Procedures Referred By Tati campos Referred To Contact Radiology Diagnoses Chronic pansinusitis Procedures CT SINUS FACIAL BONES WO CONTRAST Jorge Luis Black MD [address] [facility] [address] [place] [address] Scan [address] [place] [address] Referral ID Status Reason Start Date Expiration Date V isits Requested Visits Authorized [id number] Closed ST[facility] CTS 06/26/2020 07/25/2020 1 1 Reason for Visit * CT Scan (Routine) - Closed Specialty Diagnoses / Procedures Referred By Tati campos Referred To Contact Radiology Diagnoses Chronic pansinusitis Procedures CT SINUS FACIAL BONES WO Jorge Luis Bustillos MD [address] [place] [address] Scan [address] [place] [address] Referral ID Status Reason Start Date Expiration Date V isits Requested Visits Authorized [id number] Closed ST[facility] CTS 06/26/2020 07/25/2020 1 1 Encounter Details Date Type Department Care Team (Latest Contact Info) Description 07/03/2020 11:56 AM CDT - 07/03/2020 11:59 PM CDT Hospital Encounter [facility] [address] [place] [address] Jorge Luis Black MD [address] [facility] [address] [place] [address] Discharge Disposition: Home or Self Care Social [...] have Coronavirus / COVID-19? No / Unsure 07/03/2020 11:54 AM CDT documented as of this encounter Medications at Time of Discharge Medication Sig Dispensed Refills Start Date End Date levocetirizine (Xyzal) 5 mg tablet Take 1 [...] Take by mouth. montelukast (Singulair) 10 mg tabletIndications:Seas onal allergic rhinitis, unspecified trigger Take 1 Tablet (10 mg) by mouth daily at bedtime. 90 Tablet 3 06/20/2020 06/15/2021 documented as of this encounter Plan of Treatment Not on file documented as of this encounter Procedures Procedure Name Priority Date/Time Associated Diagnosis Comments CT SINUS FACIAL BONES WO CONTRAST Routine 07/03/2020 12:15 PM CDT Chronic pansinusitis documented in this encounter Results * CT [...] of Iterative Reconstruction Technique. DICTATION LOCATION: Location [address] [place] [address] Narrative 07/03/2020 2:50 PM CDT EXAM: CT SINUSES [...] of Iterative Reconstruction Technique. DICTATION LOCATION: Location [address] [place] [address] [address] Black MD [address] ORDERABLES documented in this encounter Visit Diagnoses Diagnosis Chronic pansinusitis Other chronic sinusitis documented in this encounter Additional Health Concerns Assessment Noted Time PHQ-9 Depression Total Score: 2 02/15/20 20 3:00 PM CDT documented as of this encounter Care Teams Garland Machine Operator Relationship Specialty Start Date End Date Almita Smallwood MD [address] [place] [address] PCP - General Internal Medicine 03/14/18 documented as of this encounter
--- OUTSIDE RECORDS SUMMARY | 2024-04-21 12:25 | XMS_ITS | Encounter Summary ---
Author Organization [facility] Address [address] [place] [address] Care Team Providers Care Pretzel Packer Name Role Phone Almita Smallwood MD Primary Care Provider + Encounter Details Date Type Department Care Team (Late st Contact Info) Description 01/23/2021 Abstract [facility] E[facility], NOSE AND THRO[facility] [address] [facility] [address] [place] [address] Jorge Luis Black MD [address] [facility] [address] [place] [address] Social History Tobacco Use Types [...] documented as of this encounter Care Teams Pretzel Packer Relationship Specialty Start Date End Date Almita Smallwood MD [address] [place] [address] PCP - General Internal Medicine 03/14/18 documented as of this encounter
--- OUTSIDE RECORDS SUMMARY | 2024-04-21 12:25 | XMS_ITS | Encounter Summary ---
Author Organization [facility] Address [address] [place] [address] Care Team Providers Care Road Freight Conductor Name Role Phone Almita Smallwood MD Primary Care Provider + Reason for Visit * Reason Onset Date Comments Results 05/26/2020 PFT Encounter Details Date Type Department Care Team (Late st Contact Info) Description 05/26/2020 Telephone [facility] Pulmonology [facility] [address] [place] [address] Tom Luo MD [address] [place], [place] [id number] Results (PFT) Social History Tobacco Use Types Packs/Day Years [...] have Coronavirus / COVID-19? No / Unsure 05/23/2020 7:54 AM RUBBER GOODS TESTER WATER documented as of this encounter Miscellaneous Notes * Telephone Encounter - Luis Enrique Ortiz - 05/26/2020 9:04 AM CST Patient notified of these results via [employer] email, instructed her to contact our office back if she has any other questions about these results. ER GOODS TESTER WATER * Telephone Encounter - Tom Luo MD - 05/26/2020 8:57 AM CST Please let Mena know that her pulmonary function testing showed completely normal results. ER GOODS TESTER WATER documented in this encounter Plan of Treatment Not on file documented as of this encounter Visit Diagnoses Not on filedocumented in this encounter Additional Health Concerns Assessment Noted Time PHQ-9 Depression Total Score: 2 02/15/20 20 3:00 PM CDT documented as of this encounter Care Teams Road Freight Conductor Relationship Specialty Start Date End Date Almita Smallwood MD [address] [place] [address] PCP - General Internal Medicine 03/14/18 documented as of this encounter
--- OUTSIDE RECORDS SUMMARY | 2024-04-21 12:25 | XMS_ITS | Encounter Summary ---
Author Organization [facility] Address [address] [facility] Attn: [place] [address] Care Team Providers Care Department Operations Manager Name Role Phone Almita Smallwood MD Primary Care Provider + Encounter Details Date Type Department Care Team (Latest Contact Info) Description 07/03/2020 Travel Social History Tobacco Use Types Packs/Day [...] documented as of this encounter Care Teams Department Operations Manager Relationship Specialty Start Date End Date Almita Smallwood MD [address] [place] [address] PCP - General Internal Medicine 03/14/18 documented as of this encounter
--- OUTSIDE RECORDS SUMMARY | 2024-04-21 12:25 | XMS_ITS | Encounter Summary ---
Author Organization [facility] Address [address] [facility] Attn: Epic Prelude ADT [facility] [place] [address] Care Team Providers Care Repair Service Clerk Name Role Phone Almita Smallwood MD Primary Care Provider + Encounter Details Date Type Department Care Team (Latest Contact Info) Description 07/30/2021 Travel Social History Tobacco Use Types Packs/Day [...] documented as of this encounter Care Teams Repair Service Clerk Relationship Specialty Start Date End Date Almita Smallwood MD [address] [place] [address] PCP - General Internal Medicine 03/14/18 documented as of this encounter
--- OUTSIDE RECORDS SUMMARY | 2024-04-21 12:25 | XMS_ITS | Encounter Summary ---
Author Organization [facility] Address [address] [place] [address] Care Team Providers Care Chemical Worker Name Role Phone Almita Smallwood MD Primary Care Provider + Reason for Visit * Eval and Treat (Routine) - Closed Specialty Diagnoses / Procedures Referred By Tati t Referred To Contact Physical Therapy Diagnoses Sciatica of left side Procedures PT EVAL AND TREAT Almita Smallwood MD [address] [place] [address] [facility] [address] [address] Referral ID Status Reason Start Date Expiration Date Visits Re quested Visits Authorized [id number] Closed 07/09/2021 04/17/2022 60 60 Encounter Details Date Type Department Care Team (Late st Contact Info) Description 07/30/2021 10:00 AM CDT - 07/30/2021 11:59 PM T Hospital Encounter [facility] Therapy Services [place] [address] [address] Almita Smallwood MD [address] [place] [address] Sciatica of left side Discharge Disposition: Home or Self Care Social [...] at bedtime. 90 Tablet 3 07/09/2021 06/14/2022 cyclobenzaprine (FLEXERIL) 5 mg TabletIndications:Scia gavin of left side Take 1-2 Tablets (5-10 mg) by mouth 2 times daily as needed for Pain or Spasm. 30 Tablet 2 07/09/2021 10/15/2021 documented as of this encounter Miscellaneous Notes * Therapy Evaluation - Dimple Caceres, Physical Therapist - 07/30/2021 10:00 AM CDT Images from the original note were not included. Physical Therapy Initial Evaluation Patient: Lisa Hermosillo Date: 07/30/2021 Date of : 1960 Referring Provider: Almita Smallwood, * Diagnosis: M54.32 (ICD-10-CM) - 724.3 (ICD-9-CM) - Sciatica of left side *RIGHT SIDE, SCRIPT INCORRECT Onset Date: 07/09/21 script date Reason for Therapy: R sided buttock, leg pain Precautions: None per prescription Fall Risk: no Next MD Appointment: PRN PN Due: Sunday August 29, 2021 Script Visits: 04/25 (2x/week for 4 weeks by PT POC) by 08/27/21 Insurance Visits: 1 visits used/60 visits approved by [facility] by 04/17/21 Authorization: NA Time In: 10:07am (pt late) Time Out: 11:07am Total Timed Treatment: 25 minutes Total Treatment Time: 59 minutes SUBJECTIVE History of Injury: Patient reports diagnosis of R sided sciatica. This R sided pain has been going on for 4 months or longer. This same type of pain has happened before (last bout being 2014 or so; relates this to gaining weight because it subsided when she lost weight), but this pain is sharper than before. She describes this pain as a sharp pain into R posterior buttock, down into back of leg and calf, sometimes anterior rawls discomfort. She reports some tingling into R posterior thigh, whichis intermittent and usually comes with the sharp pain. During 2019 she was diagnosed with allergy induced asthma, which limited her activity. She started gaining weight because of this and she thinks the increased weight gain is related to her pain. Fall Risk History: Has the patient experienced two or more falls in the past year or any fall with injury in the past year? no Does the patient feel unsteady walking in the home or community? 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 Prior Pain Level: 0/10 Diagnostic Testing: None Medical History: Medical history documented in EMR was reviewed with patient and patient reported it is accurate as follows: Past Medical History: Diagnosis Date ??? Breast cancer ??? H/O breast biopsy ??? Kidney stones Surgical History: Surgical history documented in EMR was reviewed with patient and patient reported it is accurate asfollows: Past Surgical History: Procedure Laterality Date ??? HX BREAST LUMPECTOMY FOR CANCER Left 2016 ??? HX KIDNEY STONE SURGERY ??? HX LYMPH NODE BIOPSY Right Abnormal biopsy, lymph node REMOVED ??? LITHOTRIPSY 03/2015 Allergy: Allergies documented in EMR were reviewed with patient and patient reported it is accurate as follows: No Known Allergies Medications: Current medications documented in EMR were reviewed with patient and patient reported it is accurate except for diclofenac 75mg 1x/day. Current Outpatient Medications on File Prior to Encounter Medication Sig Dispense Refill ??? montelukast (Singulair) 10 mg tablet Take 1 Tablet (10 mg) by mouth daily at bedtime. 90 Tablet3 ??? cyclobenzaprine (FLEXERIL) 5 mg Tablet Take 1-2 Tablets (5-10 mg) by mouth 2 times daily as needed for Pain or Spasm. 30 Tablet 2 ??? levocetirizine (Xyzal) 5 mg tablet Take 1 Tablet (5 mg) by mouth late in the day. 30 Tablet 1 ??? azelastine (ASTELIN) 137 mcg/actuation nasal spray Administer 2 Sprays in each nostril 2 times daily. 30 mL 0 ??? multivitamin (MULTIPLE VITAMINS DAILY ORAL) Take 6 Each by mouth daily. Gummy vitamins ??? pseudoephedrine (SUDAFED) 30 mg tablet Take 60 mg by mouth every 4 hours as needed. ??? cyanocobalamin (VITAMIN B-12) 250 mcg Tablet Take 250 mcg by mouth daily. ??? COLLAGEN MISC by Misc.(Non-Drug; Combo Route) route. ??? TURMERIC ORAL Take by mouth. No current facility-administered medications on file prior to encounter. Pain: Best - 0/10 Worst - 7/10 Currently - 1/10 Description/Location/Frequency/Duration: sharp pain into R posterior buttock, down into back of legand calf, sometimes anterior rawls discomfort; tingling into R posterior thigh Alleviating Factors: Flexeril Aggravating Factors: Prolonged sitting Functional Limitations: Lifting R leg to get up into SUV, standing after prolonged sitting when working (leg feels like it might give out), weight training Patient Goal: To get back to weight training OBJECTIVE Functional Outcomes: Oswestry Low Back Pain Score 38 % Disability (07/30/21 1228) Appearance: Patient appears calm and ready to participate in therapy. Gait: unremarkable Trunk ROM Comments Flexion Fingertips to ground Repetitive flexion causes mild increases R buttock symptoms Extension 50% Repetitive extension causes more increased R buttock and posterior leg symptoms Right Left Side Bending WFL WFL Rotation WFL *90% * R buttock symptoms Strength Comments Lower Abdominals 1/5 Right Left Hip Flexion *4-/5 5/5 * R knee pain PROM hip flexion full but painful Decreased pain with inferior glide applied with PROM flexion Hip Extension 4-/5 4-/5 Decreased AROM hip extension R with strength testing Hip Abduction 4+/5 4+/5 Knee Extension 4+/5 5/5 Knee Flexion 5/5 5/5 Ankle Dorsiflexion 5/5 5/5 Flexibility: Hamstring Length - (R) min limitation, (L) WFL. Piriformis Length - (R) mod limitation, (L) WFL. Hip Flexor Length - (R) WFL, (L) WFL (pain posterior R hip with Colt Test position). Manual Exam: Tenderness bilat glute med, R ITB; pain with PA to R PSIS Special Tests: Straight Leg Raise - positive posterior leg pain R, negative L. FADDIR - R positive, L negative. FADER - positive R, L negative. Passive sciatic nerve tension test - negative. Supine to long sit test - negative for innominate rotation; appears to have true leg length discrepancy, L LE longer Treatment: PT eval and treat HEP education: Modified piriformis stretch x 20-30 sec Sidelying hip abduction x 10 Hamstring stretch with strap x 20-30 sec Wall squats 3 sec hold x 10 Bridge with band abduction x 10 HEP Initiated (see handouts): See above Patient verbalized understanding, demonstrated understanding and teach-back of home exercise program. Response to Treatment: Patient with good response to session, reporting 0/10 pain by end of visit. ASSESSMENT Pain Level Post-Treatment: 0/10 Rehab Diagnosis: R hip strength deficits, impaired flexibility Rehab Potential: Good with active participation in plan of care. Patient Problems: ROM limitations, strength limitations, pain, impaired mobility, ADL limitations, knowledge deficit Impression: Pt is a 61 yo female with a chief complaint of R hip/buttock and posterior leg pain. Tests and measures reveal hip strength deficits (R>L), low ab weakness, LE flexibility impairments,and mildly limited AROM hip extension R. She appears to have a true leg length discrepancy (L LE longer than R). She demonstrates a positive SLR on R, but passive sciatic nerve tension testing is negative. She does, however, report a reproduction of R posterior hip pain with YAMILET and FADDIR. She also reports relief of R hip/buttock pain with PROM hip flexion when an inferior glide is performed. Impairments limit pt's ability to tolerate lifting R leg to get into SUV, standing after prolonged sitting and weight training. Pt may benefit from skilled PT for hip strengthening, manual therapy, ROM/stretching, modalities prn and HEP education in order to decrease pain and improve overall function. Clinical Presentation: Stable and/or uncomplicated Evaluation Complexity: Low Complexity Based on patient's self reporting, therapist's objective findings and professional determinations GOALS: The following goals were developed in conjunction with the patient. STG's (Time Frame: 2 weeks)To be met by date: July 1. Pt to demonstrate and verbalize independence with initial HEP. 2. Pt to report no greater than 6/10 pain to facilitate improved quality of life. 3. Pt to improve R piriformis length to min limitation for improved functional mobility. LTG's (Time Frame: 4 weeks)To be met by date: August 1. Pt to decrease Oswestry score by 10% disability for improved tolerance of daily activities. 2. Pt report decreased pain at worst to 3/10 for improved tolerance of functional daily activities. 3. Pt to improve R hip strength by 1/3 grade to allow for greater stability with transfers. 4. Pt to improve low ab strength to at least 2/5 for improved postural support. 5. Pt to report no symptoms into R leg to demonstrate centralization of symptoms. 6. Pt independent with final HEP for continued symptom improvement & self-management. PLAN Patient to be seen 2 times per week for 4 weeks for the following skilled therapeutic interventionsto address limitations in ADL's and function: HEP Instruction, Strengthening, Flexibility, Manual Therapy, Core Stabilization, Posture/Body Mechanics Education, Modalities Thank you for this referral. Dimple Camacho PT, [email or web address] License No. [id number] [address] [place] [address] documented in this encounter Plan of Treatment Not on file documented as of this encounter Visit Diagnoses Not on filedocumented in this encounter Additional Health Concerns Assessment Noted Time PHQ-9 Depression Total Score: 2 02/15/20 20 3:00 PM CDT documented as of this encounter Care Teams Chemical Worker Relationship Specialty Start Date End Date Almita Smallwood MD [address] [place] [address] PCP - General Internal Medicine 03/14/18 documented as of this encounter
--- OUTSIDE RECORDS SUMMARY | 2024-04-21 12:25 | XMS_ITS | Encounter Summary ---
Author Organization [facility] Address [address] [facility] Attn: Epic Prelude [place] [address] Care Team Providers Care Modeling And Simulation Analyst Name Role Phone Almita Smallwood MD Primary Care Provider + Encounter Details Date Type Department Care Team (Latest Contact Info) Description 10/23/2021 Travel Social History Tobacco Use Types Packs/Day [...] PM CDT documented as of this encounter Plan of Treatment Not on file documented as of this encounter Visit Diagnoses Not on filedocumented in this encounter Additional Health Concerns Assessment Noted Time PHQ-9 Depression Total Score: 1 10/16/19 22 2:00 PM CDT documented as of this encounter Care Teams Modeling And Simulation Analyst Relationship Specialty Start Date End Date Almita Smallwood MD [address] [place] [address] PCP - General Internal Medicine 03/14/18 documented as of this encounter
--- OUTSIDE RECORDS SUMMARY | 2024-04-21 12:25 | XMS_ITS | Encounter Summary ---
Author Organization [facility] Address [address] [place] [address] Care Team Providers Care Photonics Engineering Technologist Name Role Phone Almita Smallwood MD Primary Care Provider + Reason for Visit * Reason Comments Immunization/Injection Encounter Details Date Type Department Care Team (Latest Contact Info) Description 10/23/2021 1:00 PM CDT Clinical Support [facility] Internal Medicine [address] [address] Need for pneumococcal vaccination (Primary Dx); Need for shingles vaccine Social History Tobacco Use Types Packs/Day Years [...] this encounter Visit Diagnoses Diagnosis Need for pneumococcal vaccination- Primary Need for prophylactic vaccination against streptococcus pneumoniae (pneumococcus) Need for shingles vaccine Need for prophylactic vaccination and inoculation against varicella documented in this encounter Additional Health Concerns Assessment Noted Time PHQ-9 Depression Total Score: 1 10/16/19 2:00 PM CDT documented as of this encounter Care Teams Photonics Engineering Technologist Relationship Specialty Start Date End Date Almita Smallwood MD [address] [place] [address] PCP - General Internal Medicine 03/14/18 documented as of this encounter
--- OUTSIDE RECORDS SUMMARY | 2024-04-21 12:25 | XMS_ITS | Encounter Summary ---
Author Organization [facility] Address [address] [place] [address] Care Team Providers Care Senior Technical Support Analyst Name Role Phone Almita Smallwood MD Primary Care Provider + Encounter Details Date Type Department Care Team (Late st Contact Info) Description 11/10/2021 Chart Note [facility] [address] [place] [address] Nghia Will, Physical Therapist Social History Tobacco [...] PM CDT documented as of this encounter Progress Notes * Nghia Will, Physical Therapist - 11/10/2021 1:15 PM CDT Images from the original note were not included. Physical Therapy Discharge Summary Patient: Lisa Hermosillo Date: 11/10/2021 Date of : 1960 Referring Provider: No ref. provider found Diagnosis: M54.32 (ICD-10-CM) - 724.3 (ICD-9-CM) - Sciatica of left side *RIGHT SIDE, SCRIPT INCORRECT Lisa Hermosillo was seen from 07/30/21 to 07/30/21 for a total of 1 visits with 1 cancellations and 0 no shows. This patient did not return for further therapy visits following the last session noted above, therefore a complete re-evaluation of status was not completed. Treatments consisted of: home exercise program, pain management, patient/family education, plan of care, posture/body mechanics instruction, range of motion, stretching and strengthening therapeutic exercises Therapeutic Exercise to increase strength, ROM, flexibility, stablization. Manual Treatments - soft/deep tissue massage, joint mobilization Objective Measurements: see initial eval on 07/30/21 Date and Last Pain Ratin07-30-21; Best - 0/10 Worst - 7/10 Currently - 04/27 Home Exercise Program Last Updated On: 07-30-21 The patient discharged from therapy secondary to patient choice to discontinue therapy. Please contact me if you have any questions. Thank you for this referral. [place] License #: [id number] [address], [address] [address] Fax documented in this encounter Plan of Treatment Not on file documented as of this encounter Visit Diagnoses Not on filedocumented in this encounter Additional Health Concerns Assessment Noted Time PHQ-9 Depression Total Score: 1 10/16/19 22 2:00 PM CDT documented as of this encounter Care Teams Senior Technical Support Analyst Relationship Specialty Start Date End Date Almita Smallwood MD [address] [place] [address] PCP - General Internal Medicine 03/14/18 documented as of this encounter
--- OUTSIDE RECORDS SUMMARY | 2024-04-21 12:25 | XMS_ITS | Encounter Summary ---
Author Organization [facility] Address [address] [facility] Attn: [place] [address] Care Team Providers Care Return Checker Name Role Phone Almita Smallwood MD Primary Care Provider + Encounter Details Date Type Department Care Team (Latest Contact Info) Description 06/20/2020 Travel Social History Tobacco Use Types Packs/Day [...] COVID-19? No / Unsure 06/20/2020 1:52 PM SOFTWARE CONSULTANT documented as of this encounter Plan of Treatment Not on file documented as of this encounter Visit Diagnoses Not on filedocumented in this encounter Additional Health Concerns Assessment Noted Time PHQ-9 Depression Total Score: 2 02/15/20 20 3:00 PM CDT documented as of this encounter Care Teams Return Checker Relationship Specialty Start Date End Date Almita Smallwood MD [address] [place] [address] PCP - General Internal Medicine 03/14/18 documented as of this encounter
--- OUTSIDE RECORDS SUMMARY | 2024-04-21 12:25 | XMS_ITS | Encounter Summary ---
Author Organization [facility] Address [address] [facility] Attn: [place] [address] Care Team Providers Care Scooper Name Role Phone Almita Smallwood MD Primary Care Provider + Encounter Details Date Type Department Care Team (Latest Contact Info) Description 05/29/2020 Travel Social History Tobacco Use Types Packs/Day [...] have Coronavirus / COVID-19? No / Unsure 05/29/2020 10:49 AM BUSINESS CONTROLLER documented as of this encounter Plan of Treatment Not on file documented as of this encounter Visit Diagnoses Not on filedocumented in this encounter Additional Health Concerns Assessment Noted Time PHQ-9 Depression Total Score: 2 02/15/20 20 3:00 PM CDT documented as of this encounter Care Teams Scooper Relationship Specialty Start Date End Date Almita Smallwood MD [address] [place] [address] PCP - General Internal Medicine 03/14/18 documented as of this encounter
--- OUTSIDE RECORDS SUMMARY | 2024-04-21 12:25 | XMS_ITS | Encounter Summary ---
Author Organization [facility] Address [address] [facility] Attn: [place] [address] Care Team Providers Care Block Cutter Name Role Phone Almita Smallwood MD Primary Care Provider + Encounter Details Date Type Department Care Team (Latest Contact Info) Description 07/15/2021 Travel Social History Tobacco Use Types Packs/Day [...] have Coronavirus / COVID-19? No / Unsure 07/15/2021 3:03 PM CDT documented as of this encounter Plan of Treatment Not on file documented as of this encounter Visit Diagnoses Not on filedocumented in this encounter Additional Health Concerns Assessment Noted Time PHQ-9 Depression Total Score: 2 02/15/20 20 3:00 PM CDT documented as of this encounter Care Teams Block Cutter Relationship Specialty Start Date End Date Almita Smallwood MD [address] [place] [address] PCP - General Internal Medicine 03/14/18 documented as of this encounter
--- OUTSIDE RECORDS SUMMARY | 2024-04-21 12:25 | XMS_ITS | Encounter Summary ---
Author Organization [facility] Address [address] [facility] Attn: [place] [address] Care Team Providers Care Licensed Club Manager Name Role Phone Almita Smallwood MD Primary Care Provider + Encounter Details Date Type Department Care Team (Latest Contact Info) Description 05/23/2020 Travel Social History Tobacco Use Types Packs/Day [...] COVID-19? No / Unsure 05/23/2020 7:54 AM PENSION ADVISER documented as of this encounter Plan of Treatment Not on file documented as of this encounter Visit Diagnoses Not on filedocumented in this encounter Additional Health Concerns Assessment Noted Time PHQ-9 Depression Total Score: 2 02/15/20 20 3:00 PM CDT documented as of this encounter Care Teams Licensed Club Manager Relationship Specialty Start Date End Date Almita Smallwood MD [address] [place] [address] PCP - General Internal Medicine 03/14/18 documented as of this encounter
--- OUTSIDE RECORDS SUMMARY | 2024-04-21 12:25 | XMS_ITS | Encounter Summary ---
Author Organization [facility] Address [address] [place] [address] Care Team Providers Care Computer Tape Librarian Name Role Phone Almita Smallwood MD Primary Care Provider + Reason for Visit * Reason Onset Date Comments Medication Refill 07/09/2021 Encounter Details Date Type Department Care Team (Late st Contact Info) Description 07/09/2021 Refill [facility] EAR, NOSE AND THROAT [facility] [address] [facility] [address] [place] [address] Jorge Luis Black MD [address] [facility] [facility] [address] [place] [address] Social History Tobacco Use Types [...] documented as of this encounter Care Teams Computer Tape Librarian Relationship Specialty Start Date End Date Almita Smallwood MD [address] [place] [phone] PCP - General Internal Medicine 03/14/18 documented as of this encounter
--- OUTSIDE RECORDS SUMMARY | 2024-04-21 12:25 | XMS_ITS | Encounter Summary ---
Author Organization [facility] Address [address] [place] [address] Care Team Providers Care Hammer Shop Supervisor Name Role Phone Almita Smallwood MD Primary Care Provider + Reason for Visit * Reason Onset Date Comments Results 07/07/2020 Encounter Details Date Type Department Care Team (Late st Contact Info) Description 07/07/2020 Telephone [facility] EAR, NOSE AND THROAT [facility] [address] [facility] [address] [place] [address] Jorge Luis Black MD [address] [facility] [place] [address] Results Social History Tobacco Use Types Packs/Day [...] encounter Miscellaneous Notes * Telephone Encounter - Yanna Moon - 07/07/2020 11:45 AM CDT ----- Message from Jorge Luis Black MD sent at 07/04/2020 4:21 PM CDT ----- No sinusitis. Allergy treatment is the solution documented in this encounter Plan of Treatment Not on file documented as of this encounter Visit Diagnoses Not on filedocumented in this encounter Additional Health Concerns Assessment Noted Time PHQ-9 Depression Total Score: 2 02/15/20 20 3:00 PM CDT documented as of this encounter Care Teams Hammer Shop Supervisor Relationship Specialty Start Date End Date Almita Smallwood MD [address] [place] [address] PCP - General Internal Medicine 03/14/18 documented as of this encounter
--- OUTSIDE RECORDS SUMMARY | 2024-04-21 12:25 | XMS_ITS | Encounter Summary ---
Author Organization [facility] Address [address] [place] [address] Care Team Providers Care Millinery Blocker Name Role Phone Almita Smallwood MD Primary Care Provider + Reason for Referral * Eval and Treat (8-30 Days) - Closed Specialty Diagnoses / Procedures Referred By Tati campos Referred To Contact Otolaryngology Diagnoses Recurrent sinusitis Tom Luo MD [address] [place] [address] Jorge Luis Moctezuma MD [address] [place] [address] Referral ID Status Reason Start Date Expiration Date V isits Requested Visits Authorized [id number] Closed CRS To Schedule (STL) 05/29/2020 05/29/2021 1 1 SERVICE TECHNICIAN Reason for Visit * Reason Comments Follow Up Encounter Details Date Type Department Care Team (Latest Contact Info) Description 05/29/2020 11:00 AM HVAC SERVICE TECHNICIAN Office Visit [facility] Pulmonology [facility] [address] [place] [phone] Tom Luo MD [address] [place] [address] Recurrent sinusitis (Primary Dx); Personal history of tobacco use; Centrilobular emphysema; Multiple idiopathic cysts of lung; Asthma, chronic, mild persistent, uncomplicated Social History Tobacco Use Types Packs/Day Years [...] COVID-19? No / Unsure 05/29/2020 10:49 AM HVAC SERVICE TECHNICIAN documented as of this encounter Last Filed Vital Signs Vital Sign Reading Time Taken Comments Blood Pressure 126/76 05/29/2020 11:12 AM HVAC SERVICE TECHNICIAN Pulse 68 05/29/2020 11:12 AM HVAC SERVICE TECHNICIAN Temperature - - Respiratory Rate 16 05/29/2020 11:12 AM HVAC SERVICE TECHNICIAN Oxygen Saturation 97% 05/29/2020 11:12 AM HVAC SERVICE TECHNICIAN RA Inhaled Oxygen Concentration - - Weight 73.1 kg (161 lb 3.2 oz) 05/29/2020 11:12 AM HVAC SERVICE TECHNICIAN Height 167.6 cm (5' 6 ) 05/29/2020 11:12 AM HVAC SERVICE TECHNICIAN Body Mass Index 26.02 05/29/2020 11:12 AM HVAC SERVICE TECHNICIAN documented in this encounter Progress Notes * Tom Luo MD - 05/29/2020 11:13 AM CST Pulmonary Outpatient Followup Note Tom Luo MD 05/29/2020 11:16 AM Patient Name: Lisa Hermosillo 1960 Primary Care Physician: Almita Smallwood MD Date of Service: 05/29/2020 Impression: 1. Shortness of breath on exertion 2. Mild chronic persistent asthma 3. Centrilobular emphysema 4. Recurrent sinusitis 5. Personal history of tobacco [id number]-25-svkn-year smoking history, quit 2004 6. Lung cysts (2)- thin walled in apical right lower lobe and left lower lobe ? Recommendations/Plan: 1. Continue Trelegy inhaler, 100 mcg, 1 inhalation daily 2. Referral to ENT because of persistent sinusitis symptoms 3. The patient will return for reassessment in 6 months; in the interim, she was instructed to contact the office for any progressive or de alban respiratory issues ?? Chief Complaint: Assessment of shortness of breath on exertion; recurrent sinusitis; personal history of tobacco use ?? Subjective: The patient is a 60 y.o. female former 2 pack a day smoker for 20 years with [id number] smoking history, quit 2004, initially seen 04/16/2020 because of shortness of breath on exertion and recurrent sinusitis. She denied a personal history of asthma, and to her knowledge there is no family history of asthma or chronic obstructive pulmonary disease. ?? In October,, she developed severe pansinusitis, requiring 2 courses of oral prednisone therapy, she was treated with both Augmentin and levofloxacin in December,. ?? Chest CT scan 02/21/2020; I reviewed the images- trachea is midline and patent. No large mediastinallymphadenopathy. Thyroid gland not enlarged. Postoperative changes in the left breast. No consolidating or focal lung infiltrate, no bronchiectasis or interstitial lung disease. Mild dependent atelectasis. Mild centrilobular emphysema. There are thin-walled small cysts in the apical right lower lobe and left lower lobe. There are not otherwise multiple lung cysts and no evidence for lymphangioleiomyomatosis. No pleural effusion or pneumothorax. Heart size normal. There is no pericardial effusion. There is no thoracic aortic aneurysm. Mild thoracic spine spondylosis. T4 vertebraThe patient hasnot previously undergone pulmonary function testing. Pertinent laboratory data 04/16/2020; White blood cell count 4007/mcL, 1% eosinophils Normal serum antigen specific IgE levels for [place] and perennial allergens Normal serum total IgE level at 7.2 kU/L. ?? Pulmonary function testing 05/23/2020: The patient is a 60 year old Female, height 65.4 in. and weight of 159 lbs. The indication for the pulmonary function test is SOB. ?? SPIROMETRY revealed a measured FVC of 3.31 Liters, 98 % of predicted. The measured FEV1 is 2.48 Liters, 93 % of predicted, the FEV1/FVC 75 %. ?? LUNG VOLUMES indices demonstrated a TLC of 4.89 Liters, 95 % pred and an RV of 1.58 personal history of tobacco use liters, 82 % of predicted. ?? AIRWAY RESISTANCE measurements demonstrate a pre BD airway resistance (RAW) of 1.38 cmH2O/L/sec, 104 % of reference, and specific conductance (sGAW) of 0.236 L/s/cmH2O/L, 90 % predicted. ?? DIFFUSION CAPACITY for carbon monoxide (DLCO) is 16.5 mL/min/mmHg, 74 % pred. Corrected for a hemoglobin of 12.5, DL Adj is 17.0 mL/min/mmHg, 76 % pred. ?? This is a technically adequate study. The Flow Volume Loop has a normal pattern My interpretation is normal pulmonary function testing for spirometry, flow volume loop analysis, static lung volume determinations, and diffusion capacity. Today, Mena reports improving shortness of breath and cough, currently no purulent pulmonary secretions, hemoptysis, or pleuritic chest pain. No fever, chills, or night sweats. No sinus headache, orpurulent rhinorrhea. There are no overt symptoms of gastroesophageal reflux disease. She denies chest tightness, cough, or wheezing. No palpitations or presyncopal episodes. Doing better on Trelegy inhaler. TOBACCO COUNSELING She is not a tobacco user. Past Medical History: Diagnosis Date ??? Breast cancer ??? H/O breast biopsy ??? Kidney stones Family History Problem Relation Name Age of Onset ??? Cancer Father leukemia ??? Colon Cancer Mother ??? Other Sister ??? Heart Disease Brother ??? Healthy Brother ??? No Known Problems Sister ??? Healthy Sister ??? No Known Problems Sister ??? No Known Problems Sister ??? Colon Cancer Sister ??? No Known Problems Sister ??? No Known Problems Sister Social History Socioeconomic History ??? Marital status: Spouse name: Not on file ??? Number of children: 2 ??? Years of education: Not on file ??? Highest education level: Not on file Occupational History ??? Not on file Social Needs ??? Financial resource strain: Not on file ??? Food insecurity Worry: Not on file Inability: Not on file ??? Transportation needs Medical: Not on file Non-medical: Not on file Tobacco Use ??? Smoking status: Former Smoker Packs/day: 2.00 Years: 20.00 Pack years: 40.00 Types: Cigarettes Quit date: 01/07/2005 Years since quittin.4 ??? Smokeless tobacco: Never Used Substance and Sexual Activity ??? Alcohol use: Yes Comment: occasional ??? Drug use: No ??? Sexual activity: Not Currently Partners: Male Lifestyle ??? Physical activity Days per week: Not on file Minutes per session: Not on file ??? Stress: Not on file Relationships ??? Social connections Talks on phone: Not on file Gets together: Not on file Attends scientology service: Not on file Active member of club or organization: Not on file Attends meetings of clubs or organizations: Not on file Relationship status: Not on file ??? Intimate partner violence Fear of current or ex partner: Not on file Emotionally abused: Not on file Physically abused: Not on file Forced sexual activity: Not on file Other Topics Concern ??? Service No ??? Blood Transfusions No ??? Caffeine Concern No ??? Occupational Exposure No ??? Hobby Hazards No ??? Sleep Concern No ??? Stress Concern No ??? Weight Concern No ??? Special Diet No ??? Back Care No ??? Exercise Yes ??? Bike Helmet No ??? Seat Belt Yes ??? Self-Exams No Social History Narrative ??? Not on file PHYSICAL EXAM BP 126/76 (BP Location: Right arm, Patient Position (BP): Sitting, BP Cuff Size: Adult) Pulse 68 Resp 16 Ht 5' 6 (1.676 m) Wt 73.1 kg (161 lb 3.2 oz) LMP 09/15/2014 (Within Months) SpO2 97% Comment: RA BMI 26.02 kg/m?? General: No respiratory distress, cough, or conversational dyspnea. HEENT: NC/AT, anicteric sclerae, extraocular motions intact, pupils 2 mm bilaterally, no nasal discharge, mouth clear. Neck: Supple, nondistended neck veins, no adenopathy, masses, thyromegaly. Lungs: Equal chest expansion, resonant percussion note throughout, equal bilateral vesicular breathsounds without crackles or wheezes. Heart: Regular rhythm, S1, S2 normal, no murmurs or gallop rhythms. Abdomen: Soft, non-tender, no masses or organomegaly. Extremities: No cyanosis, clubbing or edema. SAND WHEELER: Mood and affect appropriate, no resting tremor, nonfocal exam. DATA: Allergies: No Known Allergies Current Medications Current Outpatient Medications Medication Sig Dispense Refill ??? lbfjhatgjzn-xipkcppnmzzz-cfgvjkiyeh (TRELEGY ELLIPTA) 100-62.5-25 mcg Disk with Device [...] ipratropium bromide (ATROVENT) 42 mcg (0.06 %) [place], Non-Aerosol USE 1 TO 2 SPRAY(S) IN [...] Take by mouth. No current facility-administered medications for this visit. Problem List Patient Active Problem List Diagnosis Code ??? 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 breast D05.12 ??? Estrogen receptor positive status (ER+) Z17.0 ??? SERM use (selective estrogen receptor modulator) Z79.810 ??? Osteoporosis screening Z13.820 ??? Inversion, nipple N64.59 ??? Lymphadenopathy, axillary R59.0 ??? Other dietary vitamin B12 deficiency anemia D51.3 ??? Personal history of tobacco use Z87.891 ??? Recurrent sinusitis J32.9 ??? Lung, cysts, congenital Q33.0 Radiology No results found for this or any previous visit. Results for orders placed or performed during the hospital encounter of 02/21/20 CT CHEST W CONTRAST Narrative CT OF THE CHEST WITH INTRAVENOUS CONTRAST WITH RECONSTRUCTIONS DATE: 02/21/2020 10:40 AM HISTORY: Dyspnea, chronic, neg or nondiagnostic x-ray; Shortness of breath. COMPARISON: None. TECHNIQUE: Axial 1.25 mm images of the chest obtained with IV contrast with coronal and sagittal reconstructions. Contrast: 90 cc Isovue-300 IV. GFR greater than 60. FINDINGS: Heart size is normal. There is no pericardial effusion. There is no thoracic aortic aneurysm. There is no hiatal hernia. Trachea is midline and patent. No large mediastinal lymphadenopathy. Thyroid gland is not enlarged. No axillary lymphadenopathy. In the superior back there is a subcutaneous nodule measuring 2.1 x 1.5 cm with attenuation of about 6 Hounsfield units suggesting sebaceous cyst, correlate clinically. Postoperative changes in the left breast. There is no pleural effusion or pneumothorax. There is no lung infiltrate or consolidation. Mild dependent atelectasis. Mild lung emphysema. There are thin-walled small cysts in the apical right lower lobe and left lower lobe. Osseous structures are stable. Mild thoracic spine spondylosis. T4 vertebral body hemangioma. Left hepatic lobe segment 2/3 10 mm hypodense lesion may represent a hemangioma. Impression IMPRESSION: No acute cardiopulmonary process. Mild lung emphysema. Possible left hepatic lobe 1 cm hemangioma, not well characterized on this exam. Upper back subcutaneous nodule likely representing sebaceous cyst. Correlate clinically. DICTATION LOCATION: [address] The examination was performed with the adjustment of mA according to the patient size and/or the use of Iterative Reconstruction Technique. PFT Cardiac Results for orders placed or performed during the hospital encounter of 02/28/20 ECHO STRESS TEST EXERCISE Result Value Ref Range EJECTION FRACTION Narrative -- [address] [place] [address] [email or web address] -- Stress Echocardiography Tato Protocol -- Patient: Lisa Hermosillo Study ID: [id number] Gender: F : 1960 Age: 60 Race: DEEJAY Height Study Date: 02/28/2020 Weight: Access. #: [id number] BP: -- -- *Referring Physician:Almita Cabrera Catherine Louise *Ordering Physician:Almita Cabrera Net Sql Developer: silvering department supervisor: Nurse: -- Indications: Chest pain. STUDY CONCLUSIONS: SUMMARY: -- - Stress: Functional capacity was normal. - Stress ECG conclusions: The stress ECG was negative for ischemia. - Stress echo: There was no echocardiographic evidence for stress-induced ischemia. - Baseline: LV global systolic function was normal. -- Impressions: Normal Stress Echocardiogram. Cardiac Anatomy: Baseline ECG: Normal sinus rhythm. Normal tracing. Stress protocol: -- - Baseline HR: 90bpm BP: 141/79 - Exercise HR: 159bpm BP: 207/49 -- Stress results: Maximal heart rate during stress was 159bpm (98% of maximal predicted heart rate). The maximal predicted heart rate was 162bpm.The target heart rate was 138bpm.The heart rate response to stress was normal. There was resting hypertension with an appropriate response to stress. The rate-pressure product for the peak heart rate and blood pressure was 27179eo Hg/min. The patient experienced no chest pain during stress. Functional capacity was normal. Treadmill exercise testing was performed using the Tato protocol. The patient exercised for 7 min 1 sec, to a maximal work rate of 10.1mets. Exercise was terminated due to achievement of target heart rate, dyspnea, and fatigue. Stress ECG: There were no stress arrhythmias or conduction abnormalities. The stress ECG was negative for ischemia. Baseline: LV size was normal. LV global systolic function was normal. Normal wall motion; no LV regional wall motion abnormalities. Peak stress: LV size was reduced. LV global systolic function was augmented. Normal wall motion; no LV regional wall motion abnormalities. Stress echo results: There was no echocardiographic evidence for stress-induced ischemia. Procedure data: Consent: The risks, benefits, and alternatives to the procedure were explained to the patient and informed consent was obtained. Procedure information: Initial setup. The patient was brought to the laboratory. A baseline ECG was recorded. Surface ECG leads and automatic cuff blood pressure measurements were monitored. Transthoracic stress echocardiography. Images were captured at baseline and peak exercise. Study completion: There were no complications. Tato protocol. Stress echocardiography. Birthdate: Patient birthdate: 1960. Age: Patient is 60yr old. Sex: gender: female. Study date: Study date: 02/28/2020. Study time: 08:20 AM. Prepared and Electronically Authenticated Benjy Chaudhari [id number] Tom Luo MD SERVICE TECHNICIAN documented in this encounter Plan of Treatment Scheduled Referrals Name Type Priority Associated Diagnoses Orde r Schedule AMB REFERRAL TO ENT Outpatient Referral Routine Recurrent sinusitis Ordered: 05/29/2020 documented as of this encounter Visit Diagnoses Diagnosis Recurrent sinusitis- Primary Unspecified sinusitis (chronic) Personal history of tobacco use Personal history of tobacco use, presenting hazards to health Centrilobular emphysema Other emphysema Multiple idiopathic cysts of lung Asthma, chronic, mild persistent, uncomplicated documented in this encounter Additional Health Concerns Assessment Noted Time PHQ-9 Depression Total Score: 2 02/15/20 20 3:00 PM CDT documented as of this encounter Care Teams Millinery Blocker Relationship Specialty Start Date End Date Almita Smallwood MD [address] [place] [address] PCP - General Internal Medicine 03/14/18 documented as of this encounter
--- OUTSIDE RECORDS SUMMARY | 2024-04-21 12:25 | XMS_ITS | Encounter Summary ---
Author Organization [facility] Address [address] [place] [address] Care Team Providers Care Vest Backer Name Role Phone Almita Smallwood MD Primary Care Provider + Reason for Visit * Reason Comments Physical Encounter Details Date Type Department Care Team ([facility] Contact Info) Description 10/15/2021 2:00 PM CDT Office Visit [facility] Internal Medicine [address] [address] Almita Smallwood MD [address] [place] [address] Normal routine physical examination (Primary Dx); Sciatica of left side; Screening, ischemic heart disease; Vitamin B12 deficiency (non anemic); 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 breast; Asthma, chronic, mild persistent, uncomplicated; SERM use (selective estrogen receptor modulator) Social History Tobacco Use Types Packs/Day Years [...] suspected to have Coronavirus/COVID-19? No / Unsure 10/15/2021 2:05 PM CDT documented as of this encounter Last Filed Vital Signs Vital Sign Reading Time Taken Comments Blood Pressure 132/74 10/15/2021 2:31 PM CDT Pulse 76 10/15/2021 2:31 PM CDT Temperature 37.2 ??C (98.9 ??F) 10/15/2021 2:31 PM CD T Respiratory Rate 20 10/15/2021 2:31 PM CDT Oxygen Saturation - - Inhaled Oxygen Concentration - - Weight 72.2 kg (159 lb 4 oz) 10/15/2021 2:31 PM CDT Height 167.6 cm (5' 6 ) 10/15/2021 2:31 PM CDT Body Mass Index 25.7 10/15/2021 2:31 PM CDT documented in this encounter Progress Notes * Almita Smallwood MD - 10/15/2021 2:38 PM CDT HPI: Lisa Hermosillo is a 61 y.o. female here for annual physical/well adult exam Still has some sciatica Antibiotic helped the dizziness/sinus infection. Trying to stay on top of it when she starts to feel congested. sometimes if she gets up too qickly, can trigger dizzy flare. Not sure if it is vertigo Does get congested or sinus issues frequently Saw E[place] Cervical cancer screening - UTD through [facility], done in 2019 Breast cancer screening - UTD UTD on pap through [facility], done 04/16/20 On B12 shots Colonoscopy done in [place] - Dr. Litzy Mcghee - in 2019 Medications: Current Outpatient Medications on File Prior to Visit Medication Sig Dispense Refill ??? tamoxifen (NOLVADEX) 20 mg tablet Take 1 Tablet by mouth daily. ??? cholecalciferol, vitamin D3, (VITAMIN D3 ORAL) Take 1 Tablet by mouth daily. ??? prasterone, DHEA, (DHEA ORAL) Take 1 Tablet by mouth daily. ??? aspirin (ECOTRIN EC) 81 mg Tablet, Delayed Release (E.C.) Take 81 mg by mouth daily. ??? montelukast (Singulair) 10 mg tablet Take 1 Tablet (10 mg) by mouth daily at bedtime. 90 Tablet3 ??? levocetirizine (Xyzal) 5 mg tablet Take 1 Tablet (5 mg) by mouth late in the day. 30 Tablet 1 ??? azelastine (ASTELIN) 137 mcg/actuation nasal spray Administer 2 Sprays in each nostril 2 times daily. 30 mL 0 ??? multivitamin (MULTIPLE VITAMINS DAILY ORAL) Take 2 Each by mouth daily. Gummy vitamins ??? pseudoephedrine (SUDAFED) 30 mg tablet Take 60 mg by mouth every 4 hours as needed. ??? COLLAGEN MISC by Misc.(Non-Drug; Combo Route) route. ??? [DISCONTINUED] cyclobenzaprine (FLEXERIL) 5 mg Tablet Take 1-2 Tablets (5-10 mg) by mouth 2 times daily as needed for Pain or Spasm. 30 Tablet 2 ??? cyanocobalamin (VITAMIN B-12) 250 mcg Tablet Take 250 mcg by mouth daily. ??? TURMERIC ORAL Take by mouth. No current facility-administered medications on file prior to visit. Review of Systems Constitutional: Negative for chills, fever and weight loss. HENT: Negative for ear discharge, ear pain and nosebleeds. Eyes: Negative for double vision, photophobia, pain and discharge. Respiratory: Negative for cough, sputum production, shortness of breath and wheezing. Cardiovascular: Negative for chest pain, palpitations and leg swelling. Gastrointestinal: Negative for abdominal pain, blood in stool, nausea and vomiting. Genitourinary: Negative for dysuria and hematuria. Musculoskeletal: Negative for joint pain, myalgias and neck pain. Skin: Negative for rash. Neurological: Negative for dizziness, tingling, sensory change, speech change and focal weakness. Endo/Heme/Allergies: Does not bruise/bleed easily. Psychiatric/Behavioral: Negative for depression and substance abuse. The patient is not nervous/anxious. Objective: Physical Exam Constitutional: General: She is not in acute distress. Appearance: She is not diaphoretic. HENT: Head: Normocephalic and atraumatic. Right Ear: Hearing and external ear normal. Left Ear: Hearing and external ear normal. Eyes: General: Right eye: No discharge. Left eye: No discharge. Conjunctiva/sclera: Conjunctivae normal. Neck: Trachea: No tracheal deviation. Cardiovascular: Rate and Rhythm: Normal rate. Heart sounds: Normal heart sounds. No murmur heard. No friction rub. Pulmonary: Effort: Pulmonary effort is normal. No respiratory distress. Breath sounds: Normal breath sounds. No wheezing or rales. Abdominal: General: Bowel sounds are normal. There is no distension. Palpations: Abdomen is soft. Musculoskeletal: General: No tenderness or deformity. Normal range of motion. Cervical back: Neck supple. Skin: General: Skin is warm and dry. Findings: No erythema or rash. Neurological: Mental Status: She is alert and oriented to person, place, and time. Cranial Nerves: No cranial nerve deficit. Motor: No abnormal muscle tone. Coordination: Coordination normal. Gait: Gait is intact. Psychiatric: Mood and Affect: Mood and affect normal. Cognition and Memory: Memory normal. Judgment: Judgment normal. Assessment and Plan: ICD-10-CM ICD-9-CM 1. Normal routine physical examination Z00.00 V70.9 COMPREHENSIVE METABOLIC PANEL CBC WITH DIFFERENTIAL 2. Sciatica of left side M54.32 724.3 cyclobenzaprine (FLEXERIL) 5 mg Tablet 3. Screening, ischemic heart disease Z13.6 V81.0 LIPID PANEL 4. Vitamin B12 deficiency (non anemic) E53.8 266.2 VITAMIN B12 LEVEL 5. 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 breast D05.12 233.0 6. Asthma, chronic, mild persistent, uncomplicated J45.30 493.90 7. SERM use (selective estrogen receptor modulator) Z79.810 V07.51 Discussed preventative health care in detail including regular exercise, healthy diet, sleep, mental health As appropriate, discussed age appropriate screening tests and vaccinations. See above orders Asthma stable Reviewed specialist notes Need colonoscpoy report from Dr. Mcghee's office. Also need pap report from [facility] scanned in Discussed COVID vaccination in detail with patient, encouraged vaccination if not already vaccinated. Reviewed current CDC recommendations regarding booster Discussed shingles vaccination guidelines, patient will think about it and check insurance coverage Follow up - 1 yr or prn Fall Risk She has had no falls in the past year. Tobacco Intervention She is not a tobacco user. Depression Screen Positive: PHQ-2 score >= 3 or PHQ-9 score >= 9 PHQ-2 Total: 1 (10/15/2021 2:00 PM) PHQ-9 Total: 3 (10/15/2021 2:00 PM) DEPRESSION PLAN OF CARE Her depression screen was negative. Blood Pressure BP Readings from Last 3 Encounters: 10/15/21 132/74 05/29/20 126/76 04/16/20 126/74 Pre-hypertensive BP reading systolic between 120 to [...] and < 30 Body mass index is 25.7 kg/m??. BMI within normal limits [facility] this encounter Miscellaneous Notes * Result Encounter Note - Almita Smallwood MD - 11/18/2021 2:23 AM CDT Please call patient with following results. I [...] 1 month None of this is urgent * Addendum Note - Elena Cantu - 10/15/2021 3:15 PM CDTAddended by: ELENA CANTU on: 10/15/2021 03:15 PM Modules accepted: Orders * Patient Instructions - Almita Smallwood MD - 10/15/2021 2:59 PM CDT Images from the original note were not included. [facility] locations [phone] Therapeutic Ball: Back Exercises Introduction Here are some examples of typical exercises for your condition. Start each exercise slowly. Ease off the exercise if you start to have pain. Your doctor or physical therapist will tell you when you can start these exercises andwhich ones will work best for you. To prepare, make sure that your ball is the right size for you. When inflated and firm, it should allow you to sit with your hips and knees bent at about a90- degree angle (like the letter L). How to do the exercises Seated position on ball 1. Use this exercise to get used to moving on the ball and to find your best sitting position. 2. Sit comfortably on the ball with your feet about hip-width apart. If you feel unsteady, rest your hands on the ball near your hips. 3. As you do this exercise, try to keep your shoulders and upper body relaxed and still. 4. Using your stomach and back muscles to move your pelvis, roll the ball forward. This will round your back. 5. Still using your stomach and back muscles, roll the ball back. You will arch your back. 6. Repeat this rounding-arching motion a few times. 7. Stop in between the two positions, where your back is not rounded or arched. This is called yourneutral position. Pelvic rotation 1. Sit tall on the ball. 2. Slowly rotate your hips in a craig pattern. Keep the movement focused at your hips. 3. Repeat, but craig in the other direction. 4. Repeat 8 to 12 times. Postural sitting 1. Use this position to find a stable, relaxed posture on the ball. You can use this position as your starting point for other ball exercises. If you feel unsteady on the ball, start on a chair first. 2. Sit on a ball or chair, with your feet planted straight in front of you. 3. Imagine that a string at the top of your head is pulling you straight up. Think of yourself as 2inches taller than you are. 4. Slightly tuck your chin. 5. Keep your shoulders back and relaxed. Knee extension 1. Sit tall on the ball with your feet planted in front of you, hip-width apart. As you do this exercise, avoid slumping your shoulders and arching your back. 2. Rest your hands on the ball near your hip or a steady object next to you. (If you feel very stable on the ball, rest your hands in your lap or at your side.) 3. Slowly straighten one leg at the knee. Slowly lower it back down. Repeat with the other leg. 4. Repeat this exercise 8 to 12 times. Roll-ups 1. Lie on your back with your knees bent, feet resting on the floor. 2. Lay the ball on your thighs. Rest your hands up high on the ball. 3. Raising your head and shoulder blades, roll the ball up your thighs. Exhale as you roll up. 4. If this is hard on your neck, gently support your lower head and upper neck with one hand. Don'tuse that hand to pull your head up. 5. Repeat 8 to 12 times. Ball curls 1. Lie on your back with your ankles resting on the ball, knees straight. 2. Use your legs to roll the exercise ball toward you. Allow your knees to bend and move closer to your chest. 3. Pause briefly, and then roll the ball to the starting position. Try to keep the ball rolling straight. You will feel the muscles in your lower belly working. 4. Repeat 8 to 12 times. Bridge with ball under legs 1. Lie on your back with your legs up, calves resting on the ball. For more challenge, rest your heels on the ball. 2. Look up at the ceiling, and keep your chin relaxed. You can place a small pillow under your heador neck for comfort. 3. With your arms by your side, press your hands onto the floor for stability. 4. Tighten your belly muscles by pulling in your belly button toward your spine. 5. Push your heels down toward the floor, squeeze your buttocks, and lift your hips off the floor until your shoulders, hips, and knees are all in a straight line. 6. Try to keep the ball steady. Hold for about 6 seconds as you continue to breathe normally. 7. Slowly lower your hips back down to the floor. 8. Repeat 8 to 12 times. Ball curls with bridge 1. Start flat on your back with your ankles resting on the ball. 2. Look up at the ceiling, and keep your chin relaxed. You can place a small pillow under your heador neck for comfort. 3. With your arms by your side, press your hands onto the floor for stability. 4. Tighten your belly muscles by pulling in your belly button toward your spine. 5. Push your heels down toward the floor, squeeze your buttocks, and lift your hips off the floor until your shoulders, hips, and knees are all in a straight line. 6. While holding the bridge position, roll the ball toward you with your heels. Keep your hips as level as you can. 7. Pause briefly, and then roll the ball back out. Try to keep the ball rolling straight. You will feel the muscles in your lower belly working as you straighten your legs. 8. Lower your hips, and return to your starting position. 9. Repeat 8 to 12 times. 10. When you can keep your body and the ball steady throughout this exercise, you're ready for morechallenge. Try keeping your hips raised while rolling the ball out, holding the bridge, and rollingback, a few times in a row. Praying zen 1. Kneel upright with the ball in front of you. 2. To start, clasp your hands together. Rest them on the ball in front of you. 3. As you do this exercise, keep your back and hips straight and tighten your belly and buttocks muscles. Keep your knees in place. 4. Press on the ball with your arms. Lean forward from the knees. This rolls the ball forward. You will bear most of your weight on your arms. 5. If your back starts to ache, you've gone too far. Pull back a bit. 6. Roll back to the start position. 7. Repeat 8 to 12 times. Walk-out plank on ball 1. Kneel over the ball. Place your hands on the floor in front of you. 2. Walk your hands forward until your legs are straight on the ball. This is the plank position. 3. When in plank position, hold your body straight and tighten your belly and buttocks muscles. Keep your chin slightly tucked. 4. Roll as far forward as you can without losing your balance or letting your hips drop. You may stop with the ball under your thighs, or even under your knees or shins. 5. Hold a few seconds, then walk your hands back and return to the start position. 6. Repeat 8 to 12 times. Push-up with thighs on ball 1. Kneel over the ball. Place your hands on the floor in front of you. 2. Walk your hands forward until your legs are straight on the ball. This is the plank position. 3. When in plank position, hold your body straight and tighten your belly and buttocks muscles. Keep your chin slightly tucked. 4. Roll as far forward as you can without losing your balance or letting your hips drop. You may stop with the ball under your thighs, or even under your knees or shins. 5. Bend your elbows. Slowly lower your body toward the ground as far as you can without losing yourbalance. 6. If your wrists hurt, try moving your hands a little farther apart so they're not right under your shoulders. 7. Slowly straighten your arms. 8. Do 8 to 12 of these push-ups. Wall squat with ball 1. Stand facing away from a wall. Place your feet about shoulder-width apart. 2. Place the ball between your middle back and the wall. Move your feet out in front of you so theyare about a foot in front of your hips. 3. Keep your arms at your sides, or put your hands on your hips. 4. Slowly squat down as if you are going to sit in a chair, rolling your back over the ball as you squat. The ball should move with you but stay pressed into the wall. 5. Be sure that your knees do not go in front of your toes as you squat. 6. Hold for 6 seconds. 7. Slowly rise to your standing position. 8. Repeat 8 to 12 times. Child's pose with ball 1. Kneeling upright with your back straight, rest your hands on the ball in front of you. 2. Breathe out as you bend at the hips, and roll the ball forward. Lower your chest toward the ground, and drop your hips back toward your heels. 3. To stretch your upper back and shoulders, hold this position for 15 to 30 seconds. 4. Repeat 2 to 4 times. Follow-up care is a julian part of your treatment and safety. Be sure to make and go to all appointments, and call your doctor if you are having problems. It's also a good idea to know your test resultsand keep alist of the medicines you take. Where can you learn more? Go to https://www.Onefeatwise.net/patiented Enter I670 in the search box to learn more about Therapeutic Ball: Back Exercises. Current as of: June 24, 2021?Content Version: 13.3 ?? [employer]. Care instructions adapted under license by your healthcare professional. If you have questions about a medical condition or this instruction, always ask your healthcare professional. These instructions may not represent the values of this healthcare organization. [employer] disclaims any warranty or liability for your use of this information. Low Back Pain: Exercises Introduction Here are some examples of exercises for you to try. The exercises may be suggested for a condition or for rehabilitation. Start each exercise slowly.Ease off the exercises if you start to have pain. You will be told when to start these exercises and which ones will work bestfor you. How to do the exercises Press-up 1. Lie on your stomach, supporting your body with your forearms. 2. Press your elbows down into the floor to raise your upper back. As you do this, relax your stomach muscles and allow your back to arch without using your back muscles. As your press up, do not letyour hips or pelvis come off the floor. 3. Hold for 15 to 30 seconds, then relax. 4. Repeat 2 to 4 times. Alternate arm and leg (bird dog) exercise Do this exercise slowly. Try to keep your body straight at all times, and donot let one hip drop lower than the other. 1. Start on the floor, on your hands and knees. 2. Tighten your belly muscles. 3. Raise one leg off the floor, and hold it straight out behind you. Be careful not to let your hipdrop down, because that will twist your trunk. 4. Hold for about 6 seconds, then lower your leg and switch to the other leg. 5. Repeat 8 to 12 times on each leg. 6. Over time, work up to holding for 10 to 30 seconds each time. 7. If you feel stable and secure with your leg raised, try raising the opposite arm straight out infront of you at the same time. Cbdm-wf-[id number] exercise 1. Lie on your back with your knees bent and your feet flat on the floor. 2. Bring one knee to your chest, keeping the other foot flat on the floor (or keeping the other legstraight, whichever feels better on your lower back). 3. Keep your lower back pressed to the floor. Hold for at least 15 to 30 seconds. 4. Relax, and lower the knee to the starting position. 5. Repeat with the other leg. Repeat 2 to 4 times with each leg. 6. To get more stretch, put your other leg flat on the floor while pulling your knee to your chest. Curl-ups 1. Lie on the floor on your back with your knees bent at a 90-degree angle. Your feet should be flat on the floor, about 12 inches from your buttocks. 2. Cross your arms over your chest. If this bothers your neck, try putting your hands behind your neck (not your head), with your elbows spread apart. 3. Slowly tighten your belly muscles and raise your shoulder blades off the floor. 4. Keep your head in line with your body, and do not press your chin to your chest. 5. Hold this position for 1 or 2 seconds, then slowly lower yourself back down to the floor. 6. Repeat 8 to 12 times. Pelvic tilt exercise 1. Lie on your back with your knees bent. 2. Brace your stomach. This means to tighten your muscles by pulling in and imagining your belly button moving toward your spine. You should feel like your back is pressing to the floor and your hips and pelvis are rocking back. 3. Hold for about 6 seconds while you breathe smoothly. 4. Repeat 8 to 12 times. Heel dig bridging 1. Lie on your back with both knees bent and your ankles bent so that only your heels are digging into the floor. Your knees should be bent about 90 degrees. 2. Then push your heels into the floor, squeeze your buttocks, and lift your hips off the floor until your shoulders, hips, and knees are all in a straight line. 3. Hold for about 6 seconds as you continue to breathe normally, and then slowly lower your hips back down to the floor and rest for up to 10 seconds. 4. Do 8 to 12 repetitions. Hamstring stretch in doorway 1. Lie on your back in a doorway, with one leg through the open door. 2. Slide your leg up the wall to straighten your knee. You should feel a gentle stretch down the back of your leg. 3. Hold the stretch for at least 15 to 30 seconds. Do not arch your back, point your toes, or bend either knee. Keep one heel touching the floor and the other heel touching the wall. 4. Repeat with your other leg. 5. Do 2 to 4 times for each leg. Hip flexor stretch 1. Kneel on the floor with one knee bent and one leg behind you. Place your forward knee over your foot. Keep your other knee touching the floor. 2. Slowly push your hips forward until you feel a stretch in the upper thigh of your rear leg. 3. Hold the stretch for at least 15 to 30 seconds. Repeat with your other leg. 4. Do 2 to 4 times on each side. Wall sit 1. Stand with your back 10 to 12 inches away from a wall. 2. Lean into the wall until your back is flat against it. 3. Slowly slide down until your knees are slightly bent, pressing your lower back into the wall. 4. Hold for about 6 seconds, then slide back up the wall. 5. Repeat 8 to 12 times. Follow-up care is a julian part of your treatment and safety. Be sure to make and go to all appointments, and call your doctor if you are having problems. It's also a good idea to know your test resultsand keep alist of the medicines you take. Where can you learn more? Go to https://www.[employer].net/patiented Enter Z938 in the search box to learn more about Low Back Pain: Exercises. Current as of: June 24, 2021?Content Version: 13.3 ?? [employer]. Care instructions adapted under license by your healthcare professional. If you have questions about a medical condition or this instruction, always ask your healthcare professional. These instructions may not represent the values of this healthcare organization. [employer] disclaims any warranty or liability for your use of this information. documented in this encounter Plan of Treatment Not on file documented as of this encounter Procedures Procedure Name Priority Date/Time Associated Diagnosis Comments CBC WITH DIFFERENTIAL Routine 10/15/2021 3:15 PM CDT Normal routine physical examination VITAMIN B12 LEVEL Routine 10/15/2021 3:1 5 PM CDT Vitamin B12 deficiency (non anemic) LIPID PANEL Routine 10/15/2021 3:15 PM CDT Screening, ischemic heart disease COMPREHENSIVE METABOLIC PANEL Routine 10/15/2021 3:15 PM CDT Normal routine physical examination documented in this encounter Results * VITAMIN B12 LEVEL (10/15/2021 3:15 PM CDT) VITAMIN B12 742 200 - 1100 pg/mL [facility] Comment: Test Performed at: [facility] [address] [place], [place] ??[id number] Luis Enrique Anderson D.O., MPH Blood 10/15/2021 3:15 PM CDT 10/16/2021 8:24 AM CDT Almita Smallwood MD CHEMISTRY [facility] [phone] [facility] [address] [place] [address] * (ABNORMAL) LIPID PANEL (10/15/2021 3:15 PM CDT) CHOLESTEROL 164 <200 mg/dL [facility] HDL 39(L) > OR = 50 mg/dL [facility] TRIGLYCERIDE 168(H) <150 mg/dL [facility] LDL CALCULATED 98 mg/dL (calc) [facility] Comment: Reference range: <100 Desirable range <100 mg/dL for primary prevention; ?? <70 mg/dL for patients with CHD or diabetic patients with > or = 2 CHD risk factors. LDL-C is now calculated using the Katie calculation, which is a validated novel method providing better accuracy than the Friedewald equation in the estimation of LDL-C. Maxim ANTHONY et al. LOIS. 2013;310(19): 1842-3568 (http://education.[employer]/faq/FRH134) CHOL/HDL RATIO 4.2 <5.0 (calc) [facility] TOTAL NON-HDL CHOL(LDL+VLDL) 125 <130 mg/dL (calc) [facility] Comment: For patients with diabetes plus 1 major ASCVD risk factor, treating to a non-HDL-C goal of <100 mg/dL (LDL-C of <70 mg/dL) is considered a therapeutic option. Test Performed at: [facility] [address] [place] ??[phone] Luis Enrique Anderson D.O., MPH Blood 10/15/2021 3:15 PM CDT 10/16/2021 8:25 AM CDT Almita Smallwood MD CHEMISTRY [facility] [phone] [facility] [address] [place] [address] * (ABNORMAL) CBC WITH DIFFERENTIAL (10/15/2021 3:15 PM CDT) WBC 4.6 3.8 - 10.8 Thousand/u L [facility] RBC 3.51(L) 3.80 - 5.10 Million/uL [facility] HEMOGLOBIN 10.8(L) 11.7 - 15.5 g/dL [facility] HEMATOCRIT 33.3(L) 35.0 - 45.0 % [facility] MCV 94.9 80.0 - 100.0 fL [facility] MCH 30.8 27.0 - 33.0 pg [facility] MCHC 32.4 32.0 - 36.0 g/dL [facility] RDW 12.2 11.0 - 15.0 % [facility] PLATELETS 182 140 - 400 Thousand/u L [facility] MPV 10.3 7.5 - 12.5 fL [facility] NEUTROPHIL ABSOLUTE 2,806 1,500 - 7,800 cells/uL [facility] LYMPHOCYTE ABSOLUTE 1,270 850 - 3,900 cells/uL [facility] MONOCYTE ABSOLUTE 340 200 - 950 cells/uL [facility] EOSINOPHIL ABSOLUTE 152 15 - 500 cells/uL [facility] BASOPHILS ABSOLUTE 32 0 - 200 cells/uL [facility] NEUTROPHIL 61 % [facility] LYMPHOCYTES 27.6 % [facility] MONOCYTE 7.4 % [facility] EOSINOPHILS 3.3 % [facility] BASOPHILS 0.7 % [facility] Comment: Test Performed at: [facility] [address] [place] ??[phone] Luis Enrique Anderson D.O., MPH Blood 10/15/2021 3:15 PM CDT 10/16/2021 8:25 AM CDT Almita Smallwood MD HEMATOLOGY ORDER [facility] [phone] [facility] [address] * (ABNORMAL) COMPREHENSIVE METABOLIC PANEL (10/15/2021 3:15 PM CDT) GLUCOSE 86 65 - 99 mg/dL [facility] Comment: ? Fasting reference interval BUN 10 7 - 25 mg/dL [facility] CREATININE 1.07(H) 0.50 - 1.05 mg/dL [facility] Comment: For patients >49 years of age, the reference limit for Creatinine is approximately 13% higher for people identified as -[place]. GFR 57(L) > OR = 60 mL/min/1. 73m2 [facility] GFR, 66 > OR = 60 mL/min/1. 73m2 [facility] BUN/CREAT RATIO 9 6 - 22 (calc) [facility] SODIUM 141 135 - 146 mmol/L [facility] POTASSIUM 3.8 3.5 - 5.3 mmol/L [facility] CHLORIDE 106 98 - 110 mmol/L [facility] CO2 28 20 - 32 mmol/L [facility] CALCIUM 9.1 8.6 - 10.4 mg/dL [facility] TOTAL PROTEIN 6.7 6.1 - 8.1 g/dL [facility] ALBUMIN 3.8 3.6 - 5.1 g/dL [facility] GLOBULIN 2.9 1.9 - 3.7 g/dL (calc) [facility] ALBUMIN/GLOBULIN RATIO 1.3 1.0 - 2.5 (calc) [facility] BILIRUBIN TOTAL 0.4 0.2 - 1.2 mg/dL [facility] ALKALINE PHOSPHATASE 76 37 - 153 U/L [facility] AST 54(H) 10 - 35 U/L [facility] ALT 64(H) 6 - 29 U/L [facility] Comment: Test Performed at: [email or web address] ??[phone] Luis Enrique Anderson D.O., MPH Blood 10/15/2021 3:15 PM CDT 10/16/2021 8:25 AM CDT Almita Smallwood MD CHEMISTRY [facility] [phone] [facility] [address] [place] [address] documented in this encounter Visit Diagnoses Diagnosis Normal routine physical examination- Primary Reserved for inherently not codable concepts WITHOUT codable children Sciatica of left side Sciatica Screening, ischemic heart disease Screening for ischemic heart disease Vitamin B12 deficiency (non anemic) Other B-complex deficiencies 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 breast Asthma, chronic, mild persistent, uncomplicated SERM use (selective estrogen receptor modulator) Use of selective estrogen receptor modulators (SERMs) documented in this encounter Additional Health Concerns Assessment Noted Time PHQ-9 Depression Total Score: 1 10/16/19 22 2:00 PM CDT documented as of this encounter Care Teams Vest Backer Relationship Specialty Start Date End Date Almita Smallwood MD [address] [place] [address] PCP - General Internal Medicine 03/14/18 documented as of this encounter
--- OUTSIDE RECORDS SUMMARY | 2024-04-21 12:25 | XMS_ITS | Encounter Summary ---
Author Organization [facility] Address [address] [facility] Attn: Epic Prelude ADT [facility] [place] [address] Care Team Providers Care Hyperion Administrator Name Role Phone Almita Smallwood MD Primary Care Provider + Encounter Details Date Type Department Care Team (Latest Contact Info) Description 10/15/2021 Travel Social History Tobacco Use Types Packs/Day [...] documented as of this encounter Care Teams Hyperion Administrator Relationship Specialty Start Date End Date Almita Smallwood MD [address] [place] [address] PCP - General Internal Medicine 03/14/18 documented as of this encounter
--- OUTSIDE RECORDS SUMMARY | 2024-04-21 12:25 | XMS_ITS | Encounter Summary ---
Author Organization [facility] Address [address] [place] [address] Care Team Providers Care Hydroelectric Station Operator Chief Name Role Phone Almita Smallwood MD Primary Care Provider + Reason for Referral * Eval and Treat (Routine) - Closed Specialty Diagnoses / Procedures Referred By Tati t Referred To Contact Physical Therapy Diagnoses Sciatica of left side Procedures PT EVAL AND TREAT Almita Smallwood MD [address] [place] [address] [facility] [address] [facility] [address] [place] [address] Referral ID Status Reason Start Date Expiration Date Visits Re quested Visits Authorized [id number] Closed 07/09/2021 04/17/2022 60 60 Reason for Visit * Reason Comments Back Pain Encounter Details Date Type Department Care Team (Late st Contact Info) Description 07/09/2021 10:00 AM CDT Video Visit [facility] Internal Medicine - [facility] [address] [place] [address] Almita Smallwood MD [address] [place] [address] Sciatica of left side (Primary Dx); Weight gain; Centrilobular emphysema Social History Tobacco Use Types Packs/Day Years [...] - Inhaled Oxygen Concentration - - Weight 73.9 kg (163 lb) 07/09/2021 10:28 AM CDT Height 167.6 cm (5' 6 ) 07/09/2021 10:28 AM CDT Body Mass Index 26.31 07/09/2021 10:28 AM CDT documented in this encounter Progress Notes * Almita Smallwood MD - 07/09/2021 10:18 AM CDT HPI: Lisa Hermosillo is a 61 y.o. female present for a video acute visit From chart: Butt pain. Specifically right cheek sharp pain that goes down leg because I Gained weight Has gained weight, has had sciatica flare last time she gained a lot of weight Tried Tylenol arthritis Medications: Current Outpatient Medications on File Prior to Visit Medication Sig Dispense Refill ??? levocetirizine (Xyzal) 5 mg tablet Take [...] file prior to visit. Review of Systems Musculoskeletal: Positive for back pain, joint pain and myalgias. Neurological: Positive for tingling. Objective: Physical Exam Constitutional: General: She is not in acute distress. Appearance: She is not diaphoretic. HENT: Head: Normocephalic and atraumatic. Right Ear: External ear normal. Left Ear: External ear normal. Eyes: General: Right eye: No discharge. Left eye: No discharge. Conjunctiva/sclera: Conjunctivae normal. Neck: Trachea: No tracheal deviation. Pulmonary: Effort: Pulmonary effort is normal. Skin: General: Skin is warm and dry. Psychiatric: Mood and Affect: Mood and affect normal. Cognition and Memory: Memory normal. Judgment: Judgment normal. Assessment and Plan: ICD-10-CM ICD-9-CM 1. Sciatica of left side M54.32 724.3 diclofenac sodium (VOLTAREN) 75 mg Tablet, Delayed Release (E.C.) cyclobenzaprine (FLEXERIL) 5 mg Tablet PT EVAL AND TREAT 2. Weight gain R63.5 783.1 3. Centrilobular emphysema J43.2 492.8 Reminded to schedule in person physical. Overdue. Follow up - as above Tobacco Intervention She is not a tobacco user. Almita Smallwood MD [facility] This encounter was completed via two-way synchronous audio and video communication. Patient expressed understanding that using technology outside of [facility] has higher potential tointroduce privacy risks: Not Applicable Patient's identity confirmed yes Patient gave verbal consent to have these services billed to their insurance and expressed understanding that co-insurance and deductible may apply: yes documented in this encounter Plan of Treatment Scheduled Orders Name Type Priority Associated Diagnoses Orde r Schedule PT EVAL AND TREAT PT Routine Sciatica of left side Ordered: 07/09/2021 documented as of this encounter Visit Diagnoses Diagnosis Sciatica of left side- Primary Sciatica Weight gain Abnormal weight gain Centrilobular emphysema Other emphysema documented in this encounter Additional Health Concerns Assessment Noted Time PHQ-9 Depression Total Score: 2 02/15/20 20 3:00 PM CDT documented as of this encounter Care Teams Hydroelectric Station Operator Chief Relationship Specialty Start Date End Date Almita Smallwood MD [address] [place] [address] PCP - General Internal Medicine 03/14/18 documented as of this encounter
--- OUTSIDE RECORDS SUMMARY | 2024-04-21 12:25 | XMS_ITS | Encounter Summary ---
Author Organization [facility] Address [address] [place] [address] Care Team Providers Care Medical Imaging Specialist Name Role Phone Almita Smallwood MD Primary Care Provider + Reason for Visit * Reason Onset Date Comments Abx Request 12/23/2020 Encounter Details Date Type Department Care Team (Late st Contact Info) Description 12/23/2020 Telephone [facility] [address] [facility] [address] [place] [address] Jorge Luis Black MD [address] [facility]. [address] [place] [address] Abx Request Social History Tobacco Use Types Packs/Day Years [...] * Telephone Encounter - Yanna Moon - 12/23/2020 5:29 PM CDT ----- Message from Lisa Hermosillo sent at 12/23/2020 3:29 PM CDT ----- Regarding: Allergies? Hi Dr. Black, While I do have an appointment scheduled for next week to try and figure out what I am allergic to and thus triggering my allergy induced asthma, I am suffering from it again. I have been sneezing like crazy. My head feels congested, my throat was feeling quite a bit swollen, my vision is not as clear, it is harder for me to take deep breath???s (but am breathing fine otherwise). I don???t feel like I have been running a fever or at least a high one. I will confess to falling asleep twice and not taking my allergy medicine and the Montelukast, which probably gave it a leg up. Is it possible or advisable to get a prescription for an antibiotic? documented in this encounter Plan of Treatment Not on file documented as of this encounter Visit Diagnoses Not on filedocumented in this encounter Additional Health Concerns Assessment Noted Time PHQ-9 Depression Total Score: 2 02/15/20 20 3:00 PM CDT documented as of this encounter Care Teams Medical Imaging Specialist Relationship Specialty Start Date End Date Almita Smallwood MD [address] [place] [address] PCP - General Internal Medicine 03/14/18 documented as of this encounter
--- OUTSIDE RECORDS SUMMARY | 2024-04-21 12:25 | XMS_ITS | Encounter Summary ---
Author Organization [facility] Address [address] [facility] Attn: [place] [address] Care Team Providers Care Financial Services Intern Name Role Phone Almita Smallwood MD Primary Care Provider + Encounter Details Date Type Department Care Team (Latest Contact Info) Description 07/17/2021 Travel Social History Tobacco Use Types Packs/Day [...] have Coronavirus / COVID-19? No / Unsure 07/17/2021 10:53 AM CDT documented as of this encounter Plan of Treatment Not on file documented as of this encounter Visit Diagnoses Not on filedocumented in this encounter Additional Health Concerns Assessment Noted Time PHQ-9 Depression Total Score: 2 02/15/20 20 3:00 PM CDT documented as of this encounter Care Teams Financial Services Intern Relationship Specialty Start Date End Date Almita Smallwood MD [address] [place] [address] PCP - General Internal Medicine 03/14/18 documented as of this encounter
--- OUTSIDE RECORDS SUMMARY | 2024-04-21 12:25 | XMS_ITS | Encounter Summary ---
Author Organization [facility] Address [address] [place] [address] Care Team Providers Care Help Desk Support Name Role Phone Almita Smallwood MD Primary Care Provider + Reason for Visit * Reason Onset Date Comments Medication Refill 12/24/2020 Encounter Details Date Type Department Care Team (Late st Contact Info) Description 12/24/2020 Refill [facility] [address] [facility] [address] [place] [address] Jorge Luis Black MD [address] [facility]. [facility] [address] [place] [address] Social History Tobacco Use Types [...] documented as of this encounter Care Teams Help Desk Support Relationship Specialty Start Date End Date Almita Smallwood MD [address] [place] [phone] PCP - General Internal Medicine 03/14/18 documented as of this encounter
--- OUTSIDE RECORDS SUMMARY | 2024-04-21 12:25 | XMS_ITS | Encounter Summary ---
Author Organization [facility] Address [address] [place] [address] Care Team Providers Care Bundle Cutter Name Role Phone Almita Smallwood MD Primary Care Provider + Reason for Referral * Eval and Treat (8-30 Days) - Closed Specialty Diagnoses / Procedures Referred By Tati campos Referred To Contact Otolaryngology Diagnoses Acute recurrent pansinusitis Tom Luo MD [address] [facility] [address] [place] [address] Referral ID Status Reason Start Date Expiration Date Visits Re quested Visits Authorized [id number] Closed 06/13/2020 06/14/2021 1 1 MOTIVE TECHNICIAN Encounter Details Date Type Department Care Team (Late st Contact Info) Description 06/13/2020 Orders Only [facility] Pulmonology [facility] [address] [place] [address] Tom Luo MD [address] [place] [address] Acute recurrent pansinusitis (Primary Dx) Social History Tobacco Use Types [...] COVID-19? No / Unsure 05/29/2020 10:49 AM AUTOMOTIVE TECHNICIAN documented as of this encounter Plan of Treatment Scheduled Referrals Name Type Priority Associated Diagnoses Orde r Schedule AMB REFERRAL TO ENT Outpatient Referral Routine Acute recurrent pansinusitis Ordered: 06/13/2020 documented as of this encounter Visit Diagnoses Diagnosis Acute recurrent pansinusitis- Primary Other acute sinusitis documented in this encounter Additional Health Concerns Assessment Noted Time PHQ-9 Depression Total Score: 2 02/15/20 20 3:00 PM CDT documented as of this encounter Care Teams Bundle Cutter Relationship Specialty Start Date End Date Almita Smallwood MD [address] [place] [address] PCP - General Internal Medicine 03/14/18 documented as of this encounter
--- OUTSIDE RECORDS SUMMARY | 2024-04-21 12:26 | XMS_ITS | Encounter Summary ---
Author Organization [facility] Address [address] [facility] Attn: [place] [address] Care Team Providers Care Sports Trainer Name Role Phone Almita Smallwood MD Primary Care Provider + Encounter Details Date Type Department Care Team (Latest Contact Info) Description 04/16/2020 Travel Social History Tobacco Use Types Packs/Day [...] have Coronavirus / COVID-19? No / Unsure 04/16/2020 12:43 PM PROFESSIONAL TUTOR documented as of this encounter Plan of Treatment Not on file documented as of this encounter Visit Diagnoses Not on filedocumented in this encounter Additional Health Concerns Assessment Noted Time PHQ-9 Depression Total Score: 2 02/15/20 20 3:00 PM CDT documented as of this encounter Care Teams Sports Trainer Relationship Specialty Start Date End Date Almita Smallwood MD [address] [place] [address] PCP - General Internal Medicine 03/14/18 documented as of this encounter
--- OUTSIDE RECORDS SUMMARY | 2024-04-21 12:26 | XMS_ITS | Encounter Summary ---
Author Organization [facility] Address [address] [place] [address] Care Team Providers Care Cartridge Belt Puncher Name Role Phone Almita Smallwood MD Primary Care Provider + Reason for Referral * Outpatient Services (Routine) - Closed Specialty Diagnoses / Procedures Referred By Tati campos Referred To Contact Respiratory Therapy Diagnoses Shortness of breath on exertion Personal history of tobacco use Procedures PULMONARY FUNCTION TEST Patrick Luo MD [address] [place] [address] [facility] Pulmonary Function [place] [facility] [address] [place] [address] [place] [address] Referral ID Status Reason Start Date Expiration Date V isits Requested Visits Authorized [id number] Closed [facility] CTS 04/16/2020 05/17/2021 1 1 GE CUTTER Reason for Visit * Reason Comments Shortness of Breath Establish Care * Eval and Treat (Urgent) - Closed Specialty Diagnoses / Procedures Referred By Tati campos Referred To Contact Pulmonology Diagnoses Shortness of breath Dyspnea on exertion Almita Smallwood MD [address] [place] [address] Patrick Luo MD [address] [place] [address] Referral ID Status Reason Start Date Expiration Date Visits Re quested Visits Authorized [id number] Closed 02/28/2020 02/27/2021 1 1 Encounter Details Date Type Department Care Team (Late st Contact Info) Description 04/16/2020 1:00 PM DAMAGE CUTTER Office Visit [facility] Pulmonology [facility] [address] [place] [address] Patrick Luo MD [address] [place] [address] Shortness of breath on exertion (Primary Dx); Personal history of tobacco use; Recurrent sinusitis; Lung, cysts, congenital Social History Tobacco Use Types Packs/Day Years [...] have Coronavirus / COVID-19? No / Unsure 04/17/2020 1:22 PM DAMAGE CUTTER documented as of this encounter Last Filed Vital Signs Vital Sign Reading Time Taken Comments Blood Pressure 126/74 04/16/2020 12:55 PM DAMAGE CUTTER Pulse 82 04/16/2020 12:55 PM DAMAGE CUTTER Temperature - - Respiratory Rate 16 04/16/2020 12:55 PM DAMAGE CUTTER Oxygen Saturation 96% 04/16/2020 12:55 PM DAMAGE CUTTER RA Inhaled Oxygen Concentration - - Weight 73 kg (161 lb) 04/16/2020 12:55 PM DAMAGE CUTTER Height 167.6 cm (5' 6 ) 04/16/2020 12:55 PM DAMAGE CUTTER Body Mass Index 25.99 04/16/2020 12:55 PM DAMAGE CUTTER documented in this encounter Progress Notes * Patrick Luo MD - 04/16/2020 12:57 PM CST Pulmonary Outpatient History and Physical Patrick Luo MD 04/16/2020 12:57 PM Patient Name: Lisa Hermosillo 1960 Primary Care Physician: Almita Smallwood MD Date of Service: 04/16/2020 Impression: 1. Shortness of breath on exertion 2. Recurrent sinusitis 3. Personal history of tobacco tgb-89-wgbi-year smoking history, quit 2004 4. 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 Obtain pulmonary function test to stratify current lung physiology 2. CBC with differential cell count to evaluate for eosinophilic phenotype indicative of asthma 3. Serum total IgE level 4. Serum antigen specific IgE levels for [place] and perennial allergens 5. Trial of Trelegy inhaler, 1 mcg, 1 inhalation daily; the patient was provided with 28 days of sample and demonstrated correct inhaler technique 6. The patient will return for reassessment in 6 weeks; in the interim, she was instructed to contact the office for any progressive or de alban respiratory issues Chief Complaint: Assessment of shortness of breath on exertion; recurrent sinusitis; personal history of tobacco use HPI: The patient is a 60 y.o. female former 2 pack a day smoker for 20 years with 82-yljh-iles smoking history, quit 2004, who is seen in consultation because of shortness of breath on exertion and recurrent sinusitis. Today, the patient denies a personal history of asthma, and to her knowledge there is no family history of asthma or chronic obstructive pulmonary disease. Today, the patient relates that in October,, she developed a severe pansinusitis, requiring 2 courses of oral prednisone therapy, she was treated with both Augmentin and levofloxacin in December,. Chest CT scan 02/21/2020; I reviewed the [...] aortic aneurysm. Mild thoracic spine spondylosis. T4 vertebral body hemangioma. Left hepatic lobe segment 2/3 10 mm hypodense lesion may represent a hemangioma. The patient has not previously undergone pulmonary function testing. Today, Mena reports improving shortness of breath and cough, currently no purulent pulmonary secretions, hemoptysis, or pleuritic chest pain. No fever, chills, or night sweats. No sinus headache, orpurulent rhinorrhea. There are no overt symptoms of gastroesophageal reflux disease. She denies chest tightness, cough, or wheezing. No palpitations or presyncopal episodes. TOBACCO COUNSELING She is not a tobacco user. Past Medical History: Past Medical History: Diagnosis Date ??? Breast cancer ??? H/O breast biopsy ??? Kidney stones Past Surgical History: Past Surgical History: Procedure Laterality Date ??? HX BREAST LUMPECTOMY FOR CANCER Left 2016 ??? HX KIDNEY STONE SURGERY ??? HX LYMPH NODE BIOPSY Right Abnormal biopsy, lymph node REMOVED ??? LITHOTRIPSY 03/2015 Current Medications: Current Outpatient Medications Medication Sig Dispense Refill ??? tamoxifen (NOLVADEX) [...] ipratropium bromide (ATROVENT) 42 mcg (0.06 %) Dwight, Non-Aerosol USE 1 TO 2 SPRAY(S) IN [...] No current facility-administered medications for this visit. Medication Allergies: No Known Allergies Family History: Family History Problem Relation Name Age of Onset ??? Cancer Father leukemia ??? Colon Cancer Mother ??? Other Sister ??? Heart Disease Brother ??? Healthy Brother ??? No Known Problems Sister ??? Healthy Sister ??? No Known Problems Sister ??? No Known Problems Sister ??? Colon Cancer Sister ??? No Known Problems Sister ??? No Known Problems Sister Social History: Social History Tobacco Use ??? Smoking status: Former Smoker Packs/day: 2.00 Years: 20.00 Pack years: 40.00 Types: Cigarettes Quit date: 01/07/2005 Years since quittin.2 ??? Smokeless tobacco: Never Used Substance Use Topics ??? Alcohol use: Yes Comment: occasional Review of Systems: General ROS: negative for weight changes, fever Dermatological ROS: negative for skin rashes or unusual skin lesions ENT ROS: positive for - nasal congestion and sneezing Respiratory ROS: positive for - dyspnea on exertion Cardiovascular ROS: negative for chest pain or dyspnea on exertion Gastrointestinal ROS: negative for reflux, abdominal pain, change in bowel habits, or black or bloody stools Genito-Urinary ROS: negative for dysuria, trouble voiding, or hematuria Musculoskeletal ROS: negative for back pain, neck pain or joint pain or swelling Neurological ROS: negative for TIA or stroke symptoms Psychological ROS: negative for anxiety or depressive symptoms Endocrine ROS: negative for polyuria/polydipsia or new changes in weight Hematological and Lymphatic ROS: negative for swollen glands or abnormal bleeding Allergy and Immunology ROS: positive for - seasonal allergies Sleep; negative snoring, negative apneas, positive daytime sleepiness, negative abnormal limb movements, negative insomnia Objective PHYSICAL EXAM BP 126/74 (BP Location: Right arm, Patient Position (BP): Sitting, BP Cuff Size: Adult) Pulse 82 Resp 16 Ht 5' 6 (1.676 m) Wt 73 kg (161 lb) LMP 09/15/2014 (Within Months) SpO2 96% Comment: RA BMI 25.99 kg/m?? General: No respiratory distress HEENT: NC/AT, pink conjunctivae, anicteric sclerae Neck: Supple, trachea midline, no adenopathy, nondistended neck veins, thyroid normal Lungs: Equal chest expansion bilaterally, resonant percussion note throughout, clear breath sounds Heart: Regular rhythm, S1, S2 normal Abdomen: Soft, non-tender Extremities: No cyanosis, clubbing or edema Skin: Skin color, texture normal, no rashes Lymph Nodes: Cervical, supraclavicular nodes normal. LEAD DEVELOPER: Mood and affect appropriate, no resting tremor, nonfocal exam Problem List Patient Active Problem List Diagnosis Code ??? 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 breast D05.12 ??? Estrogen receptor positive status (ER+) Z17.0 ??? SERM use (selective estrogen receptor modulator) Z79.810 ??? Osteoporosis screening Z13.820 ??? Inversion, nipple N64.59 ??? Lymphadenopathy, axillary R59.0 ??? Other dietary vitamin B12 deficiency anemia D51.3 DATA BASE: Radiology No results found for this or [...] representing sebaceous cyst. Correlate clinically. DICTATION LOCATION: [address] The examination was performed with the adjustment of mA according to the patient size and/or the use of Iterative Reconstruction Technique. PFT Cardiac Results for orders placed or performed during the hospital encounter of 02/28/20 ECHO STRESS TEST EXERCISE Result Value Ref Range EJECTION FRACTION Narrative -- [address] [place] [address] [email or web address] -- Stress Echocardiography Tato Protocol -- Patient: Lisa Hermosillo Study ID: [id number] Gender: F : 1960 Age: 60 Race: [facility] Height Study Date: 02/28/2020 Weight: Access. #: [id number] BP: -- -- *Referring Physician:Almita Cabrera Catherine Louise *Ordering Physician:Almita Cabrera Structural Metal Worker: doctor naturopathic: Nurse: -- Indications: Chest pain. STUDY CONCLUSIONS: [...] peak heart rate and blood pressure was 68574nf Hg/min. The patient experienced no chest pain [...] AM. Prepared and Electronically Authenticated Benjy Chaudhari [id number] Ptarick Luo MD GE CUTTER documented in this encounter Plan of Treatment Not on file documented as of this encounter Results * PULMONARY FUNCTION TEST (05/23/2020 8:13 AM DAMAGE CUTTER) 05/23/2020 8:13 AM DAMAGE CUTTER Narrative INTERFACE SYSTEM - 05/23/2020 6:22 PM DAMAGE CUTTER ?Pulmonary Function Report ? [facility] ? Test Date: ?05/23/2020 8:13 AM Pat Name: ? LISA ANURAG ? Department: ?Room: ? Gender: ? F ?Scaffold Erector: ?? : ?1960 ? Requested By: PATRICK LUO Order Number: [id number] ?Farhad MCCRACKEN: ?? Beau Levine Interpretive Statements ? The patient is a 60 year old Female, height 65.4 in. and weight of 159 lbs. The indication for the pulmonary function test is SOB. SPIROMETRY revealed a measured FVC of 3.31 Liters, 98 % of predicted. The measured FEV1 is 2.48 Liters, 93 % of predicted, the FEV1/FVC 75 %. LUNG VOLUMES indices demonstrated a TLC of 4.89 Liters, 95 % pred and an RV of 1.58 Liters, 82 % of predicted. AIRWAY RESISTANCE measurements demonstrate a pre BD airway resistance (RAW) of 1.38 cmH2O/L/sec, 104 % of reference, and specific conductance (sGAW) of 0.236 L/s/cmH2O/L, 90 % predicted. DIFFUSION CAPACITY for carbon monoxide (DLCO) is 16.5 mL/min/mmHg, 74 % pred. Corrected for a hemoglobin of 12.5, DL Adj is 17.0 mL/min/mmHg, 76 % pred. IMPRESSION: This is a technically adequate study. The Flow Volume Loop has a normal pattern [facility]omal Pulmonary Function Study Electronically Signed On 05-23-2020 18:22:37 DAMAGE CUTTER by Beau Levine Procedure Note Provider, Historical - 05/23/2020 Pulmonary Function Report [facility] Test Date: 05/23/2020 8:13 AM Pat Name: LISA HERMOSILLO Department: Room: Gender: F Scaffold Erector: : 1960 Requested By: PATRICK LUO Order Number: [id number] Reading MD: Fabiola Interpretive Statements The patient is a 60 year old Female, height 65.4 in. and weightof 159 lbs. The indication for the pulmonary function test is SOB. SPIROMETRY revealed a measured FVC of 3.31 Liters, 98 % of predicted. The measured FEV1 is 2.48 Liters, 93 % of predicted, the FEV1/FVC 75 %. LUNG VOLUMES indices demonstrated a TLC of 4.89 Liters, 95 % pred and anRV of 1.58 Liters, 82 % of predicted. AIRWAY RESISTANCE measurements demonstrate a pre BD airway resistance(RAW) of 1.38 cmH2O/L/sec, 104 % of reference, and specific conductance (sGAW)of 0.236 L/s/cmH2O/L, 90 % predicted. DIFFUSION CAPACITY for carbon monoxide (DLCO) is 16.5 mL/min/mmHg, 74 %pred. Corrected for a hemoglobin of 12.5, DL Adj is 17.0 mL/min/mmHg, 76 %pred. IMPRESSION: This is a technically adequate study. The Flow Volume Loop has a normal pattern [facility] Pulmonary Function Study Electronically Signed On 05-23-2020 18:22:37 DAMAGE CUTTER by Beau Levine Patrick Luo MD PFT ORDERABLES INTERFACE SYSTEM Refer to clinic/hospital department * ALLERGY PANEL, PERENNIAL ALLERGENS (04/16/2020 2:01 PM DAMAGE CUTTER) ALLERGEN ALTERNARIA TENUIS, IGE <0.35 kU/L 04/21/2020 1:17 PM DAMAGE CUTTER [facility] Comment:Class 0 (Negative <0 .35) A. FUMIGATUS IGE <0.35 kU/L 04/21/19 1:17 PM DAMAGE CUTTER [facility] Comment:Class 0 (Negative <0 .35) ALLERGEN C. HERBARUM <0.35 kU/L 04/21/2020 1:17 PM DAMAGE CUTTER [facility] Comment:Class 0 (Negative <0 .35) ALLERGEN F. MONILIFORME <0.35 kU/L 04/21/2020 1:17 PM DAMAGE CUTTER [facility] Comment:Class 0 (Negative <0 .35) ALLERGEN PENICILLIUM CHRYSOGENUM, IGE <0.35 kU/L 04/21/2020 1:17 PM [facility] Comment:Class 0 (Negative <0 .35) ALLERGEN E. PURPURASCENS <0.35 kU/L 04/21/2020 1:17 PM DAMAGE CUTTER [facility] Comment:Class 0 (Negative <0 .35) ALLERGEN CAT EPITHELIUM, IGE <0.35 kU/L 04/21/2020 1:17 PM DAMAGE CUTTER [facility] Comment:Class 0 (Negative <0 .35) ALLERGEN DOG EPITH <0.35 kU/L 04/21/2020 1:17 PM [facility] Comment:Class 0 (Negative <0 .35) ALLERGEN COCKROACH, IGE <0.35 kU/L 04/21/2020 1:17 PM [facility] Comment:Class 0 (Negative <0 .35) ALLERGEN D.FARINAE, IGE <0.35 kU/L 04/21/2020 1:17 PM [facility] Comment:Class 0 (Negative <0 .35) ALLERGEN D. PTERONYSSINUS <0.35 kU/L 04/21/2020 1:17 PM [facility] Comment: Class 0 (Negative <0.35) Test Performed by: [facility] [address] [place] [address] Marine Equipment Engineer: Luis Enrique Alonzo M.D. Ph.D.; CLIA# [id number] Blood Venipuncture / Unknown 04/16/2020 2:01 PM DAMAGE CUTTER 04/16/2020 2:35 PM DAMAGE CUTTER Patrick Luo MD CHEMISTRY ORDERABL ES [facility] * [facility] (04/16/2020 2:01 PM DAMAGE CUTTER) ALLERGEN BIRCH <0.35 kU/L 04/21/2020 1:16 PM [facility] Comment:Class 0 (Negative <0 .35) ALLERGEN MAPLE <0.35 kU/L 04/21/2020 1:16 PM [facility] Comment:Class 0 (Negative <0 .35) ALLERGEN ELM <0.35 kU/L 04/21/2020 1:16 PM [facility] Comment:Class 0 (Negative <0 .35) ALLERGEN, CEDAR <0.35 kU/L 1:16 PM [facility] Comment:Class 0 (Negative <0 .35) ALLERGEN OAK <0.35 kU/L 04/21/2020 1:16 PM [facility] Comment:Class 0 (Negative <0 .35) ALLERGEN WHITE HICKORY, IGE <0.35 kU/L 04/21/2020 1:16 PM [facility] Comment:Class 0 (Negative <0 .35) ALLERGEN WALNUT TREE <0.35 kU/L 04/21/2020 1:16 PM [facility] Comment:Class 0 (Negative <0 .35) ALLERGEN BERMUDA GRASS <0.35 kU/L 04/21/2020 1:16 PM [facility] Comment:Class 0 (Negative <0 .35) ALLERGEN, NAYE GRASS <0.35 kU/L 04/21/2020 1:16 PM [facility] Comment:Class 0 (Negative <0 .35) INGRID GRASS IGE <0.35 kU/L 021 1:16 PM [facility] Comment:Class 0 (Negative <0 .35) ALLERGEN ENG. PLANTAIN <0.35 kU/L 04/21/2020 1:16 PM [facility] Comment:Class 0 (Negative <0 .35) ALLERGEN RAGWEED <0.35 kU/L 04/21/19 21 1:16 PM [facility] Comment:Class 0 (Negative <0 .35) ALLERGEN ROUGH PIGWEED <0.35 kU/L 04/21/2020 1:16 PM [facility] Comment:Class 0 (Negative <0 .35) ALLERGEN SAMMARINESE THISTLE <0.35 kU/L 04/21/2020 1:16 PM [facility] Comment: Class 0 (Negative <0.35) Test Performed by: [facility] [address] [place] [address] Marine Equipment Engineer: Luis Enrique Alonzo M.D. Ph.D.; CLIA# [id number] Blood Venipuncture / Unknown 04/16/2020 2:01 PM DAMAGE CUTTER 04/16/2020 2:35 PM DAMAGE CUTTER Patrick Luo MD CHEMISTRY ORDERABL ES [facility] * IGE (04/16/2020 2:01 PM DAMAGE CUTTER) Pathologist [facility] IGE 7.2 <=214 kU/L 04/21/2020 12:41 PM DAMAGE CUTTER [facility] Comment: Test Performed by: [facility] [address] [place] [id number] Marine Equipment Engineer: Luis Enrique Alonzo M.D. Ph.D.; CLIA# [id number] Blood Venipuncture / Unknown 04/16/2020 2:01 PM DAMAGE CUTTER 04/16/2020 2:34 PM DAMAGE CUTTER Patrick Luo MD CHEMISTRY ORDERABL ES Performing Organization Address City/[facility]/ZIP Co de Phone Number [facility] * (ABNORMAL) CBC WITH DIFFERENTIAL (04/16/2020 2:01 PM DAMAGE CUTTER) [facility] WBC 4.7 4.0 - 9.8 K/uL 04/16/2020 2:51 PM DAMAGE CUTTER [facility] RBC 3.87(L) 3.90 - 4.90 M/uL 04/16/2020 2:51 PM DAMAGE CUTTER [facility] HEMOGLOBIN 11.6(L) 11.8 - 14.8 g/dL 04/16/2020 2:51 PM DAMAGE CUTTER [facility] HEMATOCRIT 37.4 35.5 - 44.0 % 04/16/2020 2:51 PM DAMAGE CUTTER [facility] MCV 96.6 82.0 - 99.0 fL 04/16/2020 2:51 PM DAMAGE CUTTER [facility] MCH 30.0 27.2 - 32.6 pg 04/16/2020 2:51 PM DAMAGE CUTTER [facility] MCHC 31.0(L) 31.5 - 35.5 g/dL 04/16/2020 2:51 PM DAMAGE CUTTER [facility] RDW 12.4 11.5 - 14.5 % 04/16/2020 2:51 PM DAMAGE CUTTER [facility] RDW-STDEV 44.0 37.1 - 48.7 fL 04/16/2020 2:51 PM DAMAGE CUTTER [facility] PLATELETS 206 140 - 350 K/uL 04/16/2020 2:51 PM DAMAGE CUTTER [facility] MPV 9.8 9.3 - 12.4 fL 04/16/2020 2:51 PM DAMAGE CUTTER [facility] NEUTROPHILS 62 % 04/16/2020 2:51 PM DAMAGE CUTTER [facility] LYMPHOCYTES 29 % 04/16/2020 2:51 PM DAMAGE CUTTER [facility] MONOCYTES 7 % 04/16/2020 2:51 PM DAMAGE CUTTER [facility] EOSINOPHILS 1 % 04/16/2020 2:51 PM DAMAGE CUTTER [facility] BASOPHILS 0 % 04/16/2020 2:51 PM DAMAGE CUTTER [facility] IMMATURE GRANULOCYTES 0 % 04/16/2020 2:51 PM DAMAGE CUTTER [facility] NEUTROPHIL ABSOLUTE 2.94 1.90 - 7.00 K/uL 04/16/2020 2:51 PM DAMAGE CUTTER [facility] LYMPHOCYTE ABSOLUTE 1.36 0.70 - 4.50 K/uL 04/16/2020 2:51 PM DAMAGE CUTTER [facility] MONOCYTE ABSOLUTE 0.32 0.10 - 1.30 K/uL 04/16/2020 2:51 PM DAMAGE CUTTER [facility] EOSINOPHIL ABSOLUTE 0.06 0.00 - 0.70 K/uL 04/16/2020 2:51 PM DAMAGE CUTTER [facility] . [facility] BASOPHILS ABSOLUTE 0.02 0.00 - 0.20 K/uL 04/16/2020 2:51 PM DAMAGE CUTTER [facility] IMMATURE GRANULOCYTES ABSOLUTE 0.01 0.00 - 0.03 K/uL 04/16/2020 2:51 PM DAMAGE CUTTER [facility] Blood Venipuncture / Unknown 04/16/2020 2:01 PM DAMAGE CUTTER 04/16/2020 2:35 PM DAMAGE CUTTER Patrick Luo MD HEMATOLOGY ORDERAB [facility]# [id number] [address] [place] [address] documented in this encounter Visit Diagnoses Diagnosis Shortness of breath on exertion- Primary Shortness of breath Personal history of tobacco use Personal history of tobacco use, presenting hazards to health Recurrent sinusitis Unspecified sinusitis (chronic) Lung, cysts, congenital Congenital cystic lung Shortness of breath on exertion Shortness of breath Personal history of tobacco use Personal history of tobacco use, presenting hazards to health documented in this encounter Additional Health Concerns Assessment Noted Time PHQ-9 Depression Total Score: 2 02/15/20 20 3:00 PM CDT documented as of this encounter Care Teams Cartridge Belt Puncher Relationship Specialty Start Date End Date Almita Smallwood MD [address] [place] [address] PCP - General Internal Medicine 03/14/18 documented as of this encounter
--- OUTSIDE RECORDS SUMMARY | 2024-04-21 12:26 | XMS_ITS | Encounter Summary ---
Author Organization [facility] Address [address] [facility] Attn: [place] [address] Care Team Providers Care Mechanical Systems Control Engineer Name Role Phone Almita Smallwood MD Primary Care Provider + Encounter Details Date Type Department Care Team (Latest Contact Info) Description 03/08/2020 Travel Social History Tobacco Use Types Packs/Day [...] have Coronavirus / COVID-19? No / Unsure 03/08/2020 8:45 AM GENERATOR SWITCHBOARD OPERATOR documented as of this encounter Plan of Treatment Not on file documented as of this encounter Visit Diagnoses Not on filedocumented in this encounter Additional Health Concerns Assessment Noted Time PHQ-9 Depression Total Score: 2 02/15/20 20 3:00 PM CDT documented as of this encounter Care Teams Mechanical Systems Control Engineer Relationship Specialty Start Date End Date Almita Smallwood MD [address] [place] [address] PCP - General Internal Medicine 03/14/18 documented as of this encounter
--- OUTSIDE RECORDS SUMMARY | 2024-04-21 12:26 | XMS_ITS | Encounter Summary ---
Author Organization [facility] Address [address] [place] [address] Care Team Providers Care Member Of Parliament Name Role Phone Almita Smallwood MD Primary Care Provider + Encounter Details Date Type Department Care Team (Late st Contact Info) Description 05/20/2020 Abstract [facility] ONCOL[facility]ATOLOGY-[address] [address] Almita Smallwood MD [address] [place] [address] Social History Tobacco Use Types [...] have Coronavirus / COVID-19? No / Unsure 05/16/2020 1:20 PM PUBLICATION DISTRIBUTOR documented as of this encounter Plan of Treatment Not on file documented as of this encounter Visit Diagnoses Not on filedocumented in this encounter Additional Health Concerns Assessment Noted Time PHQ-9 Depression Total Score: 2 02/15/20 20 3:00 PM CDT documented as of this encounter Care Teams Member Of Parliament Relationship Specialty Start Date End Date Almita Smallwood MD [address] [place] [address] PCP - General Internal Medicine 03/14/18 documented as of this encounter
--- OUTSIDE RECORDS SUMMARY | 2024-04-21 12:26 | XMS_ITS | Encounter Summary ---
Author Organization [facility] Address [address] [place] [address] Care Team Providers Care Head Kiln Operator Name Role Phone Almita Smallwood MD Primary Care Provider + Reason for Referral * Outpatient Services (Routine) - Closed Specialty Diagnoses / Procedures Referred By Tati campos Referred To Contact Respiratory Therapy Diagnoses Shortness of breath on exertion Personal history of tobacco use Procedures PULMONARY FUNCTION TEST Patrick Luo MD [address] [place] [address] [facility] Pulmonary Function [place] [facility] [address] [place] [address] [place] [address] Referral ID Status Reason Start Date Expiration Date V isits Requested Visits Authorized [id number] Closed ST CTS 04/16/2020 05/17/2021 1 1 CTOR DERMATOLOGY Reason for Visit * Outpatient Services (Routine) - Closed Specialty Diagnoses / Procedures Referred By Tati campos Referred To Contact Respiratory Therapy Diagnoses Shortness of breath on exertion Personal history of tobacco use Procedures PULMONARY FUNCTION TEST Patrick Luo MD [address] [place] [address] St Pulmonary Function [place] [facility] [address] [place] [address] Referral ID Status Reason Start Date Expiration Date V isits Requested Visits Authorized [id number] Closed ST CTS 04/16/2020 05/17/2021 1 1 Encounter Details Date Type Department Care Team (Latest Contact Info) Description 05/23/2020 7:56 AM DIRECTOR DERMATOLOGY - 05/23/2020 11:59 PM DIRECTOR DERMATOLOGY Hospital Encounter [facility] Pulmonary Function Medical [place] [facility] [address] [place] [address] Patrick Luo MD [address] [place] [address] Discharge Disposition: Home or Self Care Social [...] COVID-19? No / Unsure 05/23/2020 7:54 AM DIRECTOR DERMATOLOGY documented as of this encounter Medications at [...] Route) route. TURMERIC ORAL Take by mouth. documented as of this encounter Plan of Treatment Not on file documented as of this encounter Procedures Procedure Name Priority Date/Time Associated Diagnosis Comments PULMONARY FUNCTION TEST Routine 05/23/2020 8:13 AM DIRECTOR DERMATOLOGY Shortness of breath on exertion Personal history of tobacco use documented in this encounter Results * PULMONARY FUNCTION TEST (05/23/2020 8:13 AM DIRECTOR DERMATOLOGY) 05/23/2020 8:13 AM DIRECTOR DERMATOLOGY Narrative INTERFACE SYSTEM - 05/23/2020 6:22 PM DIRECTOR DERMATOLOGY ?Pulmonary Function Report ? [facility] ? Test Date: ?05/23/2020 8:13 AM Pat Name: ? ANITHA HERMOSILLO ? Department: ?Room: ? Gender: ? F ?Shoveler: ?? : ?1960 ? Requested By: PATRICK LUO Order Number: [id number] ?Reading MD: ?? Beau Paranjothi Interpretive Statements ? The patient is a [...] Function Study Electronically Signed On 05-23-2020 18:22:37 DIRECTOR DERMATOLOGY by Beau Levine Procedure Note Provider, Historical - 05/23/2020 Pulmonary Function Report [facility] Test Date: 05/23/2020 8:13 AM Pat Name: ANITHA HERMOSILLO Department: Room: Gender: F Shoveler: : 1960 Requested By: PATRICK LUO Order Number: [id number] Farhad MD: Fabiola Interpretive Statements The patient is [...] Function Study Electronically Signed On 05-23-2020 18:22:37 DIRECTOR DERMATOLOGY by Beau Levine Patrick Luo MD PFT ORDERABLES INTERFACE SYSTEM Refer to clinic/hospital department documented in this encounter Visit Diagnoses Diagnosis Shortness of breath on exertion Shortness of breath Personal history of tobacco use Personal history of tobacco use, presenting hazards to health documented in this encounter Additional Health Concerns Assessment Noted Time PHQ-9 Depression Total Score: 2 02/15/20 20 3:00 PM CDT documented as of this encounter Care Teams Head Kiln Operator Relationship Specialty Start Date End Date Almita Smallwood MD [address] [place] [address] PCP - General Internal Medicine 03/14/18 documented as of this encounter
--- OUTSIDE RECORDS SUMMARY | 2024-04-21 12:26 | XMS_ITS | Encounter Summary ---
Author Organization [facility] Address [address] [place] [address] Care Team Providers Care Sommelier Name Role Phone Almita Smallwood MD Primary Care Provider + Encounter Details Date Type Department Care Team (Latest Contact Info) Description 04/16/2020 1:59 PM MOOSE HUNTER - 04/16/2020 11:59 PM MOOSE HUNTER Hospital Encounter [facility] Laboratory Services [facility] [place] [facility] [address] [place] [address] Tom Luo MD [address] [place] [address] Discharge Disposition: Home or Self Care [...] COVID-19? No / Unsure 04/16/2020 12:43 PM MOOSE HUNTER documented as of this encounter Medications at [...] Procedure Name Priority Date/Time Associated Diagnosis Comments ALLERGY PANEL, MIDWEST ALLERGENS Routine 04/16/2020 2:01 PM MOOSE HUNTER Shortness of breath on exertion Personal history of tobacco use ALLERGY PANEL, PERENNIAL ALLERGENS Routine 04/16/2020 2:01 PM MOOSE HUNTER Shortness of breath on exertion Personal history of tobacco use CBC WITH DIFFERENTIAL Routine 04/16/2020 2:01 PM MOOSE HUNTER Shortness of breath on exertion Personal history of tobacco use IGE Routine 04/16/2020 2:01 PM MOOSE HUNTER Shortness of breath on exertion Personal history of tobacco use documented in this encounter Results * ALLERGY PANEL, PERENNIAL ALLERGENS (04/16/2020 2:01 PM MOOSE HUNTER) ALLERGEN ALTERNARIA TENUIS, IGE <0.35 kU/L 04/21/2020 1:17 PM [facility] Comment:Class 0 (Negative <0 .35) A. FUMIGATUS IGE <0.35 kU/L 04/21/19 1:17 PM [facility] Comment:Class 0 (Negative <0 .35) ALLERGEN C. HERBARUM <0.35 kU/L 04/21/2020 1:17 PM [facility] Comment:Class 0 (Negative <0 .35) ALLERGEN F. MONILIFORME <0.35 kU/L 04/21/2020 1:17 PM [facility] Comment:Class 0 (Negative <0 .35) ALLERGEN PENICILLIUM CHRYSOGENUM, IGE <0.35 kU/L 04/21/2020 1:17 PM [facility] Comment:Class 0 (Negative <0 .35) ALLERGEN E. PURPURASCENS <0.35 kU/L 04/21/2020 1:17 PM [facility] Comment:Class 0 (Negative <0 .35) ALLERGEN CAT EPITHELIUM, IGE <0.35 kU/L 04/21/2020 1:17 PM MOOSE HUNTER [facility] Comment:Class 0 (Negative <0 .35) ALLERGEN DOG EPITH <0.35 kU/L 04/21/2020 1:17 PM [facility] Comment:Class 0 (Negative <0 .35) ALLERGEN COCKROACH, IGE <0.35 kU/L 04/21/2020 1:17 PM [facility] Comment:Class 0 (Negative <0 .35) ALLERGEN D.FARINAE, IGE <0.35 kU/L 04/21/2020 1:17 PM [facility] Comment:Class 0 (Negative <0 .35) ALLERGEN D. PTERONYSSINUS <0.35 kU/L 04/21/2020 1:17 PM [facility] Comment: Class 0 (Negative <0.35) Test Performed by: [facility] [address] [place] [address] Senior Publications Specialist: Luis Enrique Alonzo M.D. Ph.D.; CLIA# [id number] Blood Venipuncture / Unknown 04/16/2020 2:01 PM MOOSE HUNTER 04/16/2020 2:35 PM [facility] Tom Luo MD CHEMISTRY ORDERABL ES [facility] * [facility] (04/16/2020 2:01 PM MOOSE HUNTER) ALLERGEN BIRCH <0.35 kU/L 04/21/2020 1:16 PM [facility] Comment:Class 0 (Negative <0 .35) ALLERGEN MAPLE <0.35 kU/L 04/21/2020 1:16 PM [facility] Comment:Class 0 (Negative <0 .35) ALLERGEN ELM <0.35 kU/L 04/21/2020 1:16 PM [facility] Comment:Class 0 (Negative <0 .35) ALLERGEN, CEDAR <0.35 kU/L 1:16 PM [facility] Comment:Class 0 (Negative <0 .35) ALLERGEN OAK <0.35 kU/L 04/21/2020 1:16 PM [facility] Comment:Class 0 (Negative <0 .35) ALLERGEN WHITE HICKORY, IGE <0.35 kU/L 04/21/2020 1:16 PM [facility] Comment:Class 0 (Negative <0 .35) ALLERGEN WALNUT TREE <0.35 kU/L 04/21/2020 1:16 PM [facility] Comment:Class 0 (Negative <0 .35) ALLERGEN BERMUDA GRASS <0.35 kU/L 04/21/2020 1:16 PM [facility] Comment:Class 0 (Negative <0 .35) ALLERGEN, NAYE GRASS <0.35 kU/L 04/21/2020 1:16 PM [facility] Comment:Class 0 (Negative <0 .35) INGRID GRASS IGE <0.35 kU/L 021 1:16 PM [facility] Comment:Class 0 (Negative <0 .35) ALLERGEN ENG. PLANTAIN <0.35 kU/L 04/21/2020 1:16 PM [facility] Comment:Class 0 (Negative <0 .35) ALLERGEN RAGWEED <0.35 kU/L 04/21/19 21 1:16 PM [facility] Comment:Class 0 (Negative <0 .35) ALLERGEN ROUGH PIGWEED <0.35 kU/L 04/21/2020 1:16 PM [facility] Comment:Class 0 (Negative <0 .35) ALLERGEN VENEZUELAN THISTLE <0.35 kU/L 04/21/2020 1:16 PM [facility] Comment: Class 0 (Negative <0.35) Test Performed by: [facility] [address] [place] [address] Senior Publications Specialist: Luis Enrique Alonzo M.D. Ph.D.; CLIA# [id number] Blood Venipuncture / Unknown 04/16/2020 2:01 PM MOOSE HUNTER 04/16/2020 2:35 PM MOOSE HUNTER Tom Luo MD CHEMISTRY ORDERABL ES [facility] * IGE (04/16/2020 2:01 PM MOOSE HUNTER) Pathologist [facility] IGE 7.2 <=214 kU/L 04/21/2020 12:41 PM MOOSE HUNTER [facility] Comment: Test Performed by: [facility] [address] [place] [address] Senior Publications Specialist: Luis Enrique Alonzo M.D. Ph.D.; CLIA# [id number] Blood Venipuncture / Unknown 04/16/2020 2:01 PM MOOSE HUNTER 04/16/2020 2:34 PM MOOSE HUNTER Tom Luo MD CHEMISTRY ORDERABL ES Performing Organization Address City/[facility]/ZIP Co de Phone Number [facility] * (ABNORMAL) CBC WITH DIFFERENTIAL (04/16/2020 2:01 PM MOOSE HUNTER) Pathologist [facility] WBC 4.7 4.0 - 9.8 K/uL 04/16/2020 2:51 PM MOOSE HUNTER [facility] RBC 3.87(L) 3.90 - 4.90 M/uL 04/16/2020 2:51 PM MOOSE HUNTER [facility] [employer] [facility] HEMOGLOBIN 11.6(L) 11.8 - 14.8 g/dL 04/16/2020 2:51 PM MOOSE HUNTER [facility] [employer] [facility] HEMATOCRIT 37.4 35.5 - 44.0 % 04/16/2020 2:51 PM MOOSE HUNTER [facility] [employer] [facility] MCV 96.6 82.0 - 99.0 fL 04/16/2020 2:51 PM MOOSE HUNTER [facility] [employer] [facility] MCH 30.0 27.2 - 32.6 pg 04/16/2020 2:51 PM MOOSE HUNTER [facility] [employer] [facility] MCHC 31.0(L) 31.5 - 35.5 g/dL 04/16/2020 2:51 PM MOOSE HUNTER [facility] [employer] [facility] RDW 12.4 11.5 - 14.5 % 04/16/2020 2:51 PM MOOSE HUNTER [facility] [employer] [facility] - [facility] RDW-STDEV 44.0 37.1 - 48.7 fL 04/16/2020 2:51 PM MOOSE HUNTER [facility] [employer] [facility] - [facility] PLATELETS 206 140 - 350 K/uL 04/16/2020 2:51 PM MOOSE HUNTER [facility] [employer] [facility] - [facility] MPV 9.8 9.3 - 12.4 fL 04/16/2020 2:51 PM MOOSE HUNTER [facility] [employer] [facility] - . [facility] NEUTROPHILS 62 % 04/16/2020 2:51 PM MOOSE HUNTER [facility] [employer] [facility] - . [facility] LYMPHOCYTES 29 % 04/16/2020 2:51 PM MOOSE HUNTER [facility] [employer] [facility] - . [place] MONOCYTES 7 % 04/16/2020 2:51 PM MOOSE HUNTER [facility] [facility] - . [place] EOSINOPHILS 1 % 04/16/2020 2:51 PM MOOSE HUNTER [facility] [facility] - . [place] BASOPHILS 0 % 04/16/2020 2:51 PM MOOSE HUNTER [facility] [facility] - [facility] IMMATURE GRANULOCYTES 0 % 04/16/2020 2:51 PM MOOSE HUNTER [facility] [employer] [facility] - [facility] NEUTROPHIL ABSOLUTE 2.94 1.90 - 7.00 K/uL 04/16/2020 2:51 PM MOOSE HUNTER [facility] [employer] [facility] - . [facility] LYMPHOCYTE ABSOLUTE 1.36 0.70 - 4.50 K/uL 04/16/2020 2:51 PM MOOSE HUNTER [facility] [employer] [facility] - [facility] MONOCYTE ABSOLUTE 0.32 0.10 - 1.30 K/uL 04/16/2020 2:51 PM MOOSE HUNTER [facility] [employer] [facility] - . [facility] EOSINOPHIL ABSOLUTE 0.06 0.00 - 0.70 K/uL 04/16/2020 2:51 PM MOOSE HUNTER [facility] BASOPHILS ABSOLUTE 0.02 0.00 - 0.20 K/uL 04/16/2020 2:51 PM MOOSE HUNTER [facility] [employer] [facility] - . [facility] IMMATURE GRANULOCYTES ABSOLUTE 0.01 0.00 - 0.03 K/uL 04/16/2020 2:51 PM MOOSE HUNTER [facility] [employer] [facility] - [facility] Blood Venipuncture / Unknown 04/16/2020 2:01 PM MOOSE HUNTER 04/16/2020 2:35 PM MOOSE HUNTER Tom Luo MD HEMATOLOGY ORDERAB LES [facility]# [id number] [address] [place] [address] documented in this encounter Visit Diagnoses Diagnosis Shortness of breath on exertion Shortness of breath Personal history of tobacco use Personal history of tobacco use, presenting hazards to health documented in this encounter Additional Health Concerns Assessment Noted Time PHQ-9 Depression Total Score: 2 02/15/20 20 3:00 PM CDT documented as of this encounter Care Teams Sommelier Relationship Specialty Start Date End Date Almtia Smallwood MD [address] [place] [address] PCP - General Internal Medicine 03/14/18 documented as of this encounter
--- OUTSIDE RECORDS SUMMARY | 2024-04-21 12:26 | XMS_ITS | Encounter Summary ---
Author Organization [facility] Address [address] [place] [address] Care Team Providers Care Park Maintainer Name Role Phone Almita Smallwood MD Primary Care Provider + Encounter Details Date Type Department Care Team (Late st Contact Info) Description 04/16/2020 Orders Only [facility] Pulmonology [facility] [address] [place] [address] Tom Luo MD [address] [place] [address] Social History Tobacco Use Types Packs/Day Years [...] COVID-19? No / Unsure 04/17/2020 1:22 PM HAT LACER documented as of this encounter Plan of Treatment Not on file documented as of this encounter Visit Diagnoses Not on filedocumented in this encounter Additional Health Concerns Assessment Noted Time PHQ-9 Depression Total Score: 2 02/15/20 20 3:00 PM CDT documented as of this encounter Care Teams Park Maintainer Relationship Specialty Start Date End Date Almita Smallwood MD [address] [place] [address] PCP - General Internal Medicine 03/14/18 documented as of this encounter
--- OUTSIDE RECORDS SUMMARY | 2024-04-21 12:26 | XMS_ITS | Encounter Summary ---
Author Organization [facility] Address [address] [place] [address] Care Team Providers Care Supply Teacher Name Role Phone Almita Smallwood MD Primary Care Provider + Reason for Referral * Radiology Services (Routine) - Closed Specialty Diagnoses / Procedures Referred By Tati campos Referred To Contact Radiology Diagnoses Liver hemangioma Procedures US ABDOMEN LIMITED US ABDOMEN COMPLETE Almita Smallwood MD [address] [place] [address] [facility] [address] [place] [address] Referral ID Status Reason Start Date Expiration Date V isits Requested Visits Authorized [id number] Closed ST[facility] CTS 02/22/2020 03/24/2021 1 1 RAFT MAINTENANCE DIRECTOR Reason for Visit * Radiology Services (Routine) - Closed Specialty Diagnoses / Procedures Referred By Contac andres Referred To Contact Radiology Diagnoses Liver hemangioma Procedures US ABDOMEN LIMITED US ABDOMEN COMPLETE Almita Smallwood MD [address] [place] [address] [facility] [address] [place] [address] Referral ID Status Reason Start Date Expiration Date V isits Requested Visits Authorized [id number] Closed STL CTS 02/22/2020 03/24/2021 1 1 Encounter Details Date Type Department Care Team (Late st Contact Info) Description 03/08/2020 8:50 AM AIRCRAFT MAINTENANCE DIRECTOR - 03/08/2020 11:59 PM AIRCRAFT MAINTENANCE DIRECTOR Hospital Encounter [facility] [address] [place] [address] Almita Smallwood MD [address] [place] [address] Discharge Disposition: Home or Self Care Social [...] COVID-19? No / Unsure 03/08/2020 8:45 AM AIRCRAFT MAINTENANCE DIRECTOR documented as of this encounter Medications at [...] by mouth. documented as of this encounter Miscellaneous Notes * Result Encounter Note - Almita Smallwood MD - 03/08/2020 9:00 AM AIRCRAFT MAINTENANCE DIRECTOR Please call patient with following results. US shows benign hemangioma. No further evaluation necessary. RAFT MAINTENANCE DIRECTOR documented in this encounter Plan of Treatment Not on file documented as of this encounter Procedures Procedure Name Priority Date/Time Associated Diagnosis Comments US ABDOMEN LIMITED Routine 03/08/2020 9: 52 AM AIRCRAFT MAINTENANCE DIRECTOR Liver hemangioma documented in this encounter Results * US ABDOMEN LIMITED (03/08/2020 9:52 AM AIRCRAFT MAINTENANCE DIRECTOR) Anatomical Region Laterality Modality Abdomen Ultrasound 03/08/2020 9:53 AM AIRCRAFT MAINTENANCE DIRECTOR Impressions 03/08/2020 10:12 AM AIRCRAFT MAINTENANCE DIRECTOR IMPRESSION: 1. ??Hemangioma within the lateral segment. DICTATION LOCATION: [address] Narrative 03/08/2020 10:12 AM AIRCRAFT MAINTENANCE DIRECTOR US ABDOMEN LIMITED DATE: 03/08/2020 9:52 AM HISTORY: Liver hemangioma. COMPARISON: Correlation to chest CT 02/21/2020. FINDINGS: Pancreas and midline structures are normal as visualized. There is a 15 mm well-defined echogenic lesion within the lateral segment of liver correlating to the lesion seen on recent CT. This is most consistent with a hemangioma. No other liver lesion. Portal vein is patent with antegrade flow. The liver is normal in echogenicity. Limited evaluation of the right kidney shows no hydronephrosis. The gallbladder is normal without cholelithiasis or wall thickening. Common duct is normal at 3 mm. No ascites. Procedure Note Boone Wen MD - 03/08/2020 US ABDOMEN LIMITED DATE: 03/08/2020 9:52 AM HISTORY: Liver hemangioma. COMPARISON: Correlation to chest CT 02/21/2020. FINDINGS: Pancreas and midline structures are normal as visualized. There is a 15 mm well-defined echogenic lesion within the lateral segment of liver correlating to the lesion seen on recent CT. This is most consistent with a hemangioma. No other liver lesion. Portal vein is patent with antegrade flow. The liver is normal in echogenicity. Limited evaluation of the right kidney shows no hydronephrosis. The gallbladder is normal without cholelithiasis or wall thickening. Common duct is normal at 3 mm. No ascites. IMPRESSION: 1. Hemangioma within the lateral segment. DICTATION LOCATION: [address] Almita Smallwood MD US ORDERABLES documented in this encounter Visit Diagnoses Diagnosis Liver hemangioma Hemangioma of intra-abdominal structures documented in this encounter Additional Health Concerns Assessment Noted Time PHQ-9 Depression Total Score: 2 02/15/20 20 3:00 PM CDT documented as of this encounter Care Teams Supply Teacher Relationship Specialty Start Date End Date Almita Smallwood MD [address] [place] [address] PCP - General Internal Medicine 03/14/18 documented as of this encounter
--- OUTSIDE RECORDS SUMMARY | 2024-04-21 12:26 | XMS_ITS | Encounter Summary ---
Author Organization [facility] Address [address] [place] [address] Care Team Providers Care Gang Plank Workman Name Role Phone Almita Smallwood MD Primary Care Provider + Reason for Visit * Reason Onset Date Comments Results 03/10/2020 Encounter Details Date Type Department Care Team ([facility] Contact Info) Description 03/10/2020 Telephone [facility] Internal Medicine [facility] [address] [place] [address] Almita Smallwood MD [address] [place] [address] Results Social History Tobacco Use [...] COVID-19? No / Unsure 03/08/2020 8:45 AM NIPPING MACHINE OPERATOR documented as of this encounter Miscellaneous Notes * Telephone Encounter - Elena Poe - 03/10/2020 9:35 AM CST Left message requesting pt call back for results. Result letter sent to pt via [employer] and copy ofletter mailed to pt's home ING MACHINE OPERATOR * Telephone Encounter - Elena Poe - 03/10/2020 9:33 AM CST ----- Message from Almita Smallwood MD sent at 03/09/2020 1:27 PM NIPPING MACHINE OPERATOR ----- Please call patient with following results. US shows benign hemangioma. No further evaluation necessary. ING MACHINE OPERATOR documented in this encounter Plan of Treatment Not on file documented as of this encounter Visit Diagnoses Not on filedocumented in this encounter Additional Health Concerns Assessment Noted Time PHQ-9 Depression Total Score: 2 02/15/20 20 3:00 PM CDT documented as of this encounter Care Teams Gang Plank Workman Relationship Specialty Start Date End Date Almita Smallwood MD [address] [place] [address] PCP - General Internal Medicine 03/14/18 documented as of this encounter
--- OUTSIDE RECORDS SUMMARY | 2024-04-21 12:26 | XMS_ITS | Encounter Summary ---
Author Organization [facility] Address [address] [place] [address] Care Team Providers Care Nurse Healthcare Manager Name Role Phone Almita Smallwood MD Primary Care Provider + Encounter Details Date Type Department Care Team (Late st Contact Info) Description 04/16/2020 Abstract [facility] Internal Medicine [address] [address] Almita Smallwood MD [address] [place] [address] Social History Tobacco Use Types [...] COVID-19? No / Unsure 04/16/2020 12:43 PM PLSQL DEVELOPER documented as of this encounter Plan of Treatment Not on file documented as of this encounter Visit Diagnoses Not on filedocumented in this encounter Additional Health Concerns Assessment Noted Time PHQ-9 Depression Total Score: 2 02/15/20 20 3:00 PM CDT documented as of this encounter Care Teams Nurse Healthcare Manager Relationship Specialty Start Date End Date Almita Smallwood MD [address] [place] [address] PCP - General Internal Medicine 03/14/18 documented as of this encounter
--- OUTSIDE RECORDS SUMMARY | 2024-04-21 12:26 | XMS_ITS | Encounter Summary ---
Author Organization [facility] Address [address] Attn: [place] [address] Care Team Providers Care Tractor Distributor Name Role Phone Almita Smallwood MD Primary Care Provider + Encounter Details Date Type Department Care Team (Latest Contact Info) Description 05/06/2020 Travel Social History Tobacco Use Types Packs/Day [...] have Coronavirus / COVID-19? No / Unsure 05/06/2020 10:51 AM AIRCRAFT SHEET METAL MECHANIC documented as of this encounter Plan of Treatment Not on file documented as of this encounter Visit Diagnoses Not on filedocumented in this encounter Additional Health Concerns Assessment Noted Time PHQ-9 Depression Total Score: 2 02/15/20 20 3:00 PM CDT documented as of this encounter Care Teams Tractor Distributor Relationship Specialty Start Date End Date Almita Smallwood MD [address] [place] [address] PCP - General Internal Medicine 03/14/18 documented as of this encounter
--- OUTSIDE RECORDS SUMMARY | 2024-04-21 12:26 | XMS_ITS | Encounter Summary ---
Author Organization [facility] Address [address] Attn: [place] [address] Care Team Providers Care Gaming Table Operator Name Role Phone Almita Smallwood MD Primary Care Provider + Encounter Details Date Type Department Care Team (Latest Contact Info) Description 05/16/2020 Travel Social History Tobacco Use Types Packs/Day [...] COVID-19? No / Unsure 05/16/2020 1:20 PM FOREST ENGINEER documented as of this encounter Plan of Treatment Not on file documented as of this encounter Visit Diagnoses Not on filedocumented in this encounter Additional Health Concerns Assessment Noted Time PHQ-9 Depression Total Score: 2 02/15/20 20 3:00 PM CDT documented as of this encounter Care Teams Gaming Table Operator Relationship Specialty Start Date End Date Almita Smallwood MD [address] [place] [address] PCP - General Internal Medicine 03/14/18 documented as of this encounter
--- OUTSIDE RECORDS SUMMARY | 2024-04-21 12:26 | XMS_ITS | Encounter Summary ---
Author Organization [facility] Address [address] [place] [address] Care Team Providers Care New Grad Rn Name Role Phone Almita Smallwood MD Primary Care Provider + Reason for Visit * Reason Onset Date Comments Results 03/05/2020 Encounter Details Date Type Department Care Team ([facility] Contact Info) Description 03/05/2020 Telephone [facility] Internal Medicine [facility] [address] [place] [address] Almita Smallwood MD [address] [place] [address] Results Social History Tobacco Use [...] have Coronavirus / COVID-19? No / Unsure 02/28/2020 7:54 AM NUCLEAR DESIGN ENGINEER documented as of this encounter Miscellaneous Notes * Telephone Encounter - Elena Poe - 03/05/2020 8:50 AM CST Left message on pt's voicemail requesting call back for results, normal result letter mailed to pt's home EAR DESIGN ENGINEER * Telephone Encounter - Elena Poe - 03/05/2020 8:46 AM CST ----- Message from Almita Smallwood MD sent at 03/05/2020 8:07 AM NUCLEAR DESIGN ENGINEER ----- Please call patient with following results. Mammogram normal, repeat in one year. EAR DESIGN ENGINEER documented in this encounter Plan of Treatment Not on file documented as of this encounter Visit Diagnoses Not on filedocumented in this encounter Additional Health Concerns Assessment Noted Time PHQ-9 Depression Total Score: 2 02/15/20 20 3:00 PM CDT documented as of this encounter Care Teams New Grad Rn Relationship Specialty Start Date End Date Almita Smallwood MD [address] [place] [address] PCP - General Internal Medicine 03/14/18 documented as of this encounter
--- OUTSIDE RECORDS SUMMARY | 2024-04-21 12:26 | XMS_ITS | Encounter Summary ---
Author Organization [facility] Address [address] Attn: [place] [address] Care Team Providers Care Gaming Cage Cashier Name Role Phone Almita Smallwood MD Primary Care Provider + Encounter Details Date Type Department Care Team (Latest Contact Info) Description 04/03/2020 Travel Social History Tobacco Use Types Packs/Day [...] have Coronavirus / COVID-19? No / Unsure 04/03/2020 9:00 AM EFFICIENCY EXPERT documented as of this encounter Plan of Treatment Not on file documented as of this encounter Visit Diagnoses Not on filedocumented in this encounter Additional Health Concerns Assessment Noted Time PHQ-9 Depression Total Score: 2 02/15/20 20 3:00 PM CDT documented as of this encounter Care Teams Gaming Cage Cashier Relationship Specialty Start Date End Date Almita Smallwood MD [address] [place] [address] PCP - General Internal Medicine 03/14/18 documented as of this encounter
--- OUTSIDE RECORDS SUMMARY | 2024-04-21 12:26 | XMS_ITS | Encounter Summary ---
Author Organization [facility] Address [address] [place] [address] Care Team Providers Care Publication Specialist Name Role Phone Almita Smallwood MD Primary Care Provider + Reason for Visit * Reason Onset Date Comments exercise 03/03/2020 Encounter Details Date Type Department Care Team ([facility] Contact Info) Description 03/03/2020 Telephone [facility] Internal Medicine - [id number] [place] [address] Almita Smallwood MD [address] [place] [address] exercise Social History Tobacco Use Types Packs/Day Years [...] COVID-19? No / Unsure 02/28/2020 7:54 AM OLERICULTURIST documented as of this encounter Miscellaneous Notes * Telephone Encounter - Christin Leary RN - 03/03/2020 3:10 PM CST Pt aware per Dr Smallwood's orders Nothing from her point of view would prelude her from working out and would need to start very slowly to gradually to build her tolerance.Pt verbalizes understanding.Dr Smallwood aware. ICULTURIST * Telephone Encounter - Christin Leary, RN - 03/03/2020 3:01 PM CST LM x 1 for pt to call office. ICULTURIST * Telephone Encounter - Almita Smallwood MD - 03/03/2020 2:47 PM OLERICULTURIST Nothing from my point of view would preclude her from working out. Would need to start very slowly to gradually build up her tolerance. ICULTURIST * Telephone Encounter - Darlin Clinton - 03/03/2020 2:15 PM CST Patient wants to know if she can start working out again, she was having trouble breathing. Pulmonary appointment is the end of March. Please advise. Thank you. Sussy ICULTURIST documented in this encounter Plan of Treatment Not on file documented as of this encounter Visit Diagnoses Not on filedocumented in this encounter Additional Health Concerns Assessment Noted Time PHQ-9 Depression Total Score: 2 02/15/20 20 3:00 PM CDT documented as of this encounter Care Teams Publication Specialist Relationship Specialty Start Date End Date Almita Smallwood MD [address] [place] [address] PCP - General Internal Medicine 03/14/18 documented as of this encounter
--- OUTSIDE RECORDS SUMMARY | 2024-04-21 12:26 | XMS_ITS | Encounter Summary ---
Author Organization [facility] Address [address] Attn: [place] [address] Care Team Providers Care Quality Measurement Specialist Name Role Phone Almita Smallwood MD Primary Care Provider + Encounter Details Date Type Department Care Team (Latest Contact Info) Description 04/17/2020 Travel Social History Tobacco Use Types Packs/Day [...] COVID-19? No / Unsure 04/17/2020 1:22 PM HYDRAULIC PLUMBER documented as of this encounter Plan of Treatment Not on file documented as of this encounter Visit Diagnoses Not on filedocumented in this encounter Additional Health Concerns Assessment Noted Time PHQ-9 Depression Total Score: 2 02/15/20 20 3:00 PM CDT documented as of this encounter Care Teams Quality Measurement Specialist Relationship Specialty Start Date End Date Almita Smallwood MD [address] [place] [address] PCP - General Internal Medicine 03/14/18 documented as of this encounter
--- OUTSIDE RECORDS SUMMARY | 2024-04-21 12:26 | XMS_ITS | Encounter Summary ---
Author Organization [facility] Address [address] [place] [address] Care Team Providers Care Lyric Writer Name Role Phone Almita Smallwood MD Primary Care Provider + Reason for Visit * Reason Onset Date Comments RETURN CALL 03/05/2020 Mena returned c all to get results Encounter Details Date Type Department Care Team ([facility] st Contact Info) Description 03/05/2020 Telephone [facility] Internal Medicine - [id number] [place] [address] Almita Smallwood MD [address] [place] [address] RETURN CALL (Mena returned call to get results) Social History Tobacco Use Types Packs/Day Years [...] COVID-19? No / Unsure 02/28/2020 7:54 AM CRAB MEAT PROCESSOR documented as of this encounter Miscellaneous Notes * Telephone Encounter - Christin Leary RN - 03/05/2020 10:29 AM CST Pt aware per Dr Smallwood's orders mammogram results were normal and needs repeat mammogram in 1 year.[address] Smallwood aware. MEAT PROCESSOR * Telephone Encounter - Sarah Lopez - 03/05/2020 9:12 AM CST Mena returned call to get results MEAT PROCESSOR documented in this encounter Plan of Treatment Not on file documented as of this encounter Visit Diagnoses Not on filedocumented in this encounter Additional Health Concerns Assessment Noted Time PHQ-9 Depression Total Score: 2 02/15/20 20 3:00 PM CDT documented as of this encounter Care Teams Lyric Writer Relationship Specialty Start Date End Date Almita Smallwood MD [address] [place] [address] PCP - General Internal Medicine 03/14/18 documented as of this encounter
--- OUTSIDE RECORDS SUMMARY | 2024-04-21 12:27 | XMS_ITS | Encounter Summary ---
Author Organization [facility] Address [address] [place] [address] Care Team Providers Care Air Transport Professionals Name Role Phone Almita Smallwood MD Primary Care Provider + Reason for Visit * Reason Comments Establish Care EST CARE * Eval and Treat (Routine) - Closed Specialty Diagnoses / Procedures Referred By Contosmin t Referred To Contact Oncology Diagnoses 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 breast Almita Smallwood MD [address] [place] [address] Reji Cain MD [address] [place] [address] Referral ID Status Reason Start Date Expiration Date Visits Re quested Visits Authorized [id number] Closed 02/15/2020 04/17/2020 6 6 Encounter Details Date Type Department Care Team (Late st Contact Info) Description 02/22/2020 11:45 AM SUPERVISOR PARKING LOT Initial consult [facility] - [place] [address] [place] [address] Reji Cain MD [address] [place] [address] 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 breast; Estrogen receptor positive status (ER+) Social History Tobacco Use Types Packs/Day Years [...] have Coronavirus / COVID-19? No / Unsure 02/21/2020 9:18 AM SUPERVISOR PARKING LOT documented as of this encounter Last Filed Vital Signs Vital Sign Reading Time Taken Comments Blood Pressure 130/76 02/22/2020 11:42 AM SUPERVISOR PARKING LOT Pulse 84 02/22/2020 11:42 AM SUPERVISOR PARKING LOT Temperature 36.5 ??C (97.7 ??F) 02/22/2020 11:[address] Respiratory Rate - - Oxygen Saturation - - Inhaled Oxygen Concentration - - Weight 70.5 kg (155 lb 8 oz) 02/22/2020 11:42 AM SUPERVISOR PARKING LOT Height 167.6 cm (5' 6 ) 02/22/2020 11:42 AM SUPERVISOR PARKING LOT Body Mass Index 25.1 02/22/2020 11:42 AM SUPERVISOR PARKING LOT documented in this encounter Progress Notes * Reji Cain MD - 02/22/2020 11:48 AM CST HISTORY OF PRESENT ILLNESS Lisa Hermosillo, a 60 y.o. female presents with a Chief Complaint of Establish Care (EST CARE ) Subjective HPI She had DCIS and focal LCIS in November 2016 and had a lumpectomy. [facility] [place]. She moved to [place] a couple of years ago but continued follow upvsits with Dr. Laura, her medical oncologist to [facility]. She was started on tamoxifen after lumpectomy but stopped taking it in July 2019 and did not inform any physician regarding it. She had mammograms last week and it's incomplete because she has no prior images at for comparison andit will be addended once her previous mammograms are compared with her current exam. She has not felt breast lumps or nipple discharge recently. She has been having some shortness of breath issues lately and is being worked up for it and has cardiac work-up scheduled later this week. She has no other concerns today. REVIEW OF SYSTEMS as above and Review of Systems Constitutional: Negative. HENT: Negative. Eyes: Negative. Respiratory: Positive for shortness of breath. Cardiovascular: Negative. Gastrointestinal: Negative. Endocrine: Negative. Genitourinary: Negative. Musculoskeletal: Negative. Skin: Negative. Allergic/Immunologic: Negative. Neurological: Negative. Hematological: Negative. Psychiatric/Behavioral: Negative. All other systems reviewed and are negative. Past Medical History: Diagnosis Date ??? Breast cancer ??? H/O breast biopsy ??? Kidney stones Past Surgical History: Procedure Laterality Date ??? HX BREAST LUMPECTOMY FOR CANCER Left 2017 ??? HX KIDNEY STONE SURGERY ??? HX LYMPH NODE BIOPSY Right Abnormal biopsy, lymph node REMOVED ??? LITHOTRIPSY 03/2015 Social History Tobacco Use ??? Smoking status: Former Smoker Packs/day: 2.00 Years: 20.00 Pack years: 40.00 Types: Cigarettes Quit date: 01/07/2005 Years since quittin.1 ??? Smokeless tobacco: Never Used Substance Use Topics ??? Alcohol use: Yes Comment: occasional ??? Drug use: No Family History Problem Relation Name Age of Onset ??? Cancer Father leukemia ??? Colon Cancer Mother ??? Other Sister ??? Heart Disease Brother ??? Healthy Brother ??? No Known Problems Sister ??? Healthy Sister ??? No Known Problems Sister ??? No Known Problems Sister ??? Colon Cancer Sister ??? No Known Problems Sister ??? No Known Problems Sister No Known Allergies Current Outpatient Medications Medication Sig Dispense Refill ??? tamoxifen (NOLVADEX) 20 mg tablet Take 1 Tablet (20 mg) by mouth daily. 90 Tablet 3 ??? ipratropium bromide (ATROVENT) 42 mcg (0.06 %) [place], Non-Aerosol USE 1 TO 2 SPRAY(S) IN [...] route. ??? TURMERIC ORAL Take by mouth. ??? levocetirizine (Xyzal) 5 mg tablet Take 1 Tablet (5 mg) by mouth late in the day. 30 Tablet 1 ??? azelastine (ASTELIN) 137 mcg/actuation nasal spray Administer 2 Sprays in each nostril 2 times daily. 30 mL 0 No current facility-administered medications for this visit. Objective PHYSICAL EXAM BP 130/76 Pulse 84 Temp 97.7 ??F (36.5 ??C) (Temporal) Ht 5' 6 (1.676 m) Wt 70.5 kg (155 lb 8 oz) LMP 09/15/2014 (Within Months) BMI 25.10 kg/m?? Physical Exam Vitals signs and nursing note reviewed. Constitutional: General: She is not in acute distress. Appearance: She is well-developed. She is not diaphoretic. HENT: Head: Normocephalic and atraumatic. Right Ear: External ear normal. Left Ear: External ear normal. Nose: Nose normal. Mouth/Throat: Pharynx: No oropharyngeal exudate. Eyes: General: No scleral icterus. Right eye: No discharge. Left eye: No discharge. Conjunctiva/sclera: Conjunctivae normal. Pupils: Pupils are equal, round, and reactive to light. Neck: Musculoskeletal: Normal range of motion and neck supple. Thyroid: No thyromegaly. Vascular: No JVD. Trachea: No tracheal deviation. Cardiovascular: Rate and Rhythm: Normal rate and regular rhythm. Heart sounds: Normal heart sounds. No murmur. No gallop. Pulmonary: Effort: Pulmonary effort is normal. No respiratory distress. Breath sounds: Normal breath sounds. No stridor. No wheezing or rales. Comments: Well-healed surgical incision along the left areolar border between 1:00 and 4:00 positions with no breast nodules on either side slightly flattened right nipple. Chest: Chest wall: No tenderness. Abdominal: General: Bowel sounds are normal. There is no distension. Palpations: Abdomen is soft. There is no mass. Tenderness: There is no abdominal tenderness. There is no guarding or rebound. Musculoskeletal: Normal range of motion. General: No tenderness. Lymphadenopathy: Cervical: No cervical adenopathy. Skin: General: Skin is warm. Findings: No erythema or rash. Neurological: Mental Status: She is alert and oriented to person, place, and time. Cranial Nerves: No cranial nerve deficit. Motor: No abnormal muscle tone. Coordination: Coordination normal. Deep Tendon Reflexes: Reflexes normal. Psychiatric: Behavior: Behavior normal. Thought Content: Thought content normal. Judgment: Judgment normal. Procedures - none. Assessment ASSESSMENT and PLAN: ICD-10-CM ICD-9-CM 1. 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 breast D05.12 233.0 2. Estrogen receptor positive status (ER+) Z17.0 V86.0 Problem Ductal Carcinoma in Situ (Dcis) of Left Breast DCIS grade 2 with focal LCIS status post lumpectomy November 2016. Patient was started on tamoxifen, took herself off in 07/2019. Was followed by Dr. Jacek Laura initially. 10/2018 - Rt axillary LN bx - no evidence of malignancy. 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 breast I have explained to her that she will need antiestrogen therapy for minimum of 5 years for DCIS andjuan manuel took herself off of it in July 2019 after about 2 and half years. I offered her either tamoxifen or anastrozole since she is menopausal, and she chose to go with tamoxifen after hearing the sideeffects of both of these medications. I explained the potential side effects of tamoxifen includinghot flashes, risk of thromboembolism, slightly increased risk of uterine cancer. I recommended thatjuan manuel take enteric-coated aspirin 325 mg while on aspirin and stop it should she develop heartburn symptoms, bloody or black stools. I have sent in the prescription to her pharmacy. She knows to contact her ciaio lumite injector should she develop any vaginal bleeding. Will plan to see her every 6 months. Advised her to do monthly breast examinations and yearly mammograms and to contact us or her breast surgeon should she notice any abnormality on her breast exam. She verbalized understanding of today's di scussion, was satisfied with the office visit, and had no further questions. This note was transcribed using 'Rivalry', a computerized voice recognition without a human carton repairer. This report may or may not have been adjusted for typographical, grammatical and syntax errors. RVISOR PARKING LOT documented in this encounter Miscellaneous Notes * Assessment & Plan Note - Reji Cain MD - 02/25/2020 7:56 AM SUPERVISOR PARKING LOT Associated Problem(s): 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 breast I have explained to her that she will need antiestrogen therapy for minimum of 5 years for DCIS andjuan manuel took herself off of it in July 2019 after about 2 and half years. I offered her either tamoxifen or anastrozole since she is menopausal, and she chose to go with tamoxifen after hearing the sideeffects of both of these medications. I explained the potential side effects of tamoxifen includinghot flashes, risk of thromboembolism, slightly increased risk of uterine cancer. I recommended thatjuan manuel take enteric-coated aspirin 325 mg while on aspirin and stop it should she develop heartburn symptoms, bloody or black stools. I have sent in the prescription to her pharmacy. She knows to contact her ciaio lumite injector should she develop any vaginal bleeding. Will plan to see her every 6 months. Advised her to do monthly breast examinations and yearly mammograms and to contact us or her breast surgeon should she notice any abnormality on her breast exam. She verbalized understanding of today's di scussion, was satisfied with the office visit, and had no further questions. RVISOR PARKING LOT documented in this encounter Plan of Treatment Not on file documented as of this encounter Visit Diagnoses Diagnosis 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 breast Estrogen receptor positive status (ER+) Estrogen receptor positive status [ER+] documented in this encounter Additional Health Concerns Assessment Noted Time PHQ-9 Depression Total Score: 2 02/15/20 20 3:00 PM CDT documented as of this encounter Care Teams Air Transport Professionals Relationship Specialty Start Date End Date Almita Smallwood MD [address] [place] [address] PCP - General Internal Medicine 03/14/18 documented as of this encounter
--- OUTSIDE RECORDS SUMMARY | 2024-04-21 12:27 | XMS_ITS | Encounter Summary ---
Author Organization [facility] Address [address] Attn: [place] [address] Care Team Providers Care Core Blower Operator Name Role Phone Almita Smallwood MD Primary Care Provider + Encounter Details Date Type Department Care Team (Latest Contact Info) Description 02/28/2020 Travel Social History Tobacco Use Types Packs/Day [...] COVID-19? No / Unsure 02/28/2020 7:54 AM SALES AGENT INSURANCE documented as of this encounter Plan of Treatment Not on file documented as of this encounter Visit Diagnoses Not on filedocumented in this encounter Additional Health Concerns Assessment Noted Time PHQ-9 Depression Total Score: 2 02/15/20 20 3:00 PM CDT documented as of this encounter Care Teams Core Blower Operator Relationship Specialty Start Date End Date Almita Smallwood MD [address] [place] [address] PCP - General Internal Medicine 03/14/18 documented as of this encounter
--- OUTSIDE RECORDS SUMMARY | 2024-04-21 12:27 | XMS_ITS | Encounter Summary ---
Author Organization [facility] Address [address] [place] [address] Care Team Providers Care Inbound Sales Consultant Name Role Phone Almita Smallwood MD Primary Care Provider + Reason for Visit * Reason Comments Sinus Pain Encounter Details Date Type Department Care Team ([facility] st Contact Info) Description 08/16/2019 11:40 AM CDT Video Visit [facility] Internal Medicine - [address] [address] Almita Smallwood MD [address] [place] [address] Acute recurrent maxillary sinusitis (Primary Dx) Social History Tobacco Use Types [...] of this encounter Progress Notes * Almita Smallwood MD - 08/16/2019 11:49 AM CDT HPI: Lisa Hermosillo is a 59 y.o. female present for a video visit Present for acute visit. Video unavailable during visit. Subsequently converted to audio only video visit. Thinks she has sinus infection, gets these periodically Sinus pain, pressure. Causing a little dizziness if she moves too fast Has been sick for over a week with this Does get allergies, hasn't been taking anything for allergies Has been having some ear pain or pressure Has been taking Sudafed without significant improvement No fever, no cough. Medications: Current Outpatient Medications on File Prior to Visit Medication Sig Dispense Refill ??? [DISCONTINUED] amoxicillin-clavulanate (AUGMENTIN) 875-125 mg tablet Take 1 Tablet by mouth every 12 hours. 14 Tablet 0 ??? cyanocobalamin (VITAMIN B-12) 250 mcg Tablet Take 250 mcg by mouth daily. ??? tamoxifen (NOLVADEX) 20 mg tablet Take 1 Tablet (20 mg) by mouth daily. 90 Tablet 4 ??? COLLAGEN MISC by Misc.(Non-Drug; Combo Route) route. ??? TURMERIC ORAL Take by mouth. No current facility-administered medications on file prior to visit. Review of Systems Constitutional: Positive for malaise/fatigue. Negative for chills, fever and weight loss. HENT: Positive for congestion and sinus pain. Negative for ear discharge, ear pain and [...] neck pain. Skin: Negative for rash. Neurological: Positive for dizziness. Negative for tingling, sensory change, speech change and focal weakness. Endo/Heme/Allergies: Positive for environmental allergies. Does not bruise/bleed easily. Psychiatric/Behavioral: Negative for depression and substance abuse. The patient is not nervous/anxious. Objective: Physical Exam Constitutional: She is oriented to person, place, and time. She appears not lethargic. No distress. Pulmonary/Chest: Effort normal. Neurological: She is alert and oriented to person, place, and time. She appears not lethargic. Psychiatric: Mood, memory, affect and judgment normal. Assessment and Plan: ICD-10-CM ICD-9-CM 1. Acute recurrent maxillary sinusitis J01.01 461.0 amoxicillin-clavulanate (AUGMENTIN) 875-125 mg tablet Ongoing for >7 days, treat with antibiotic as above. Recommend she start oral antihistamine daily for allergies Video unavailable during visit. Subsequently converted to audio only video visit. Follow up - Call if symptoms fail to improve, otherwise routine follow up Tobacco Intervention She is not a tobacco user. Almita Smallwood MD [facility]- [facility] This encounter was completed via two-way synchronous audio and video communication. Patient's identity confirmed yes Patient gave verbal consent to have these services billed to their insurance and expressed understanding that co-insurance and deductible may apply - yes documented in this encounter Plan of Treatment Not on file documented as of this encounter Visit Diagnoses Diagnosis Acute recurrent maxillary sinusitis- Primary Acute maxillary sinusitis documented in this encounter Care Teams Inbound Sales Consultant Relationship Specialty Start Date End Date Almita Smallwood MD [address] [place] [id number] PCP - General Internal Medicine 03/14/18 documented as of this encounter
--- OUTSIDE RECORDS SUMMARY | 2024-04-21 12:27 | XMS_ITS | Encounter Summary ---
Author Organization [facility] Address [address] [place] [address] Care Team Providers Care Hvac Project Engineer Name Role Phone Almita Smallwood MD Primary Care Provider + Reason for Referral * Eval and Treat (8-30 Days) - Closed Specialty Diagnoses / Procedures Referred By Tati campos Referred To Contact Gastroenterology Diagnoses Family history of colon cancer requiring screening colonoscopy Screening for colon cancer Almita Smallwood MD [address] [place] [address] Referral ID Status Reason Start Date Expiration Date V isits Requested Visits Authorized [id number] Closed Performing Dept To Review 03/19/2019 03/18/2020 1 1 ANIMAL TECHNICIAN Reason for Visit * Reason Comments Shoulder Pain left, poor range of motion Encounter Details Date Type Department Care Team (Late st Contact Info) Description 03/19/2019 2:20 PM LAB ANIMAL TECHNICIAN Office Visit [facility] Internal Medicine - [facility] [address] [place] [address] Almita Smallwood MD [address] [place] [address] Chronic left shoulder pain (Primary Dx); Vitamin B12 deficiency (non anemic); Normocytic anemia; Family history of colon cancer requiring screening colonoscopy; Screening for colon cancer; 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 breast; Healthcare maintenance Social History Tobacco Use Types Packs/Day Years [...] Sign Reading Time Taken Comments Blood Pressure 124/76 03/19/2019 2:09 PM LAB ANIMAL TECHNICIAN Pulse 83 03/19/2019 2:09 PM LAB ANIMAL TECHNICIAN Temperature 36.8 ??C (98.2 ??F) 03/19/2019 2:09 PM CS T Respiratory Rate 16 03/19/2019 2:09 PM LAB ANIMAL TECHNICIAN Oxygen Saturation 99% 03/19/2019 2:09 PM LAB ANIMAL TECHNICIAN Inhaled Oxygen Concentration - - Weight 65.8 kg (145 lb) 03/19/2019 2:09 PM LAB ANIMAL TECHNICIAN Height 167.6 cm (5' 6 ) 03/19/2019 2:09 PM LAB ANIMAL TECHNICIAN Body Mass Index 23.4 03/19/2019 2:09 PM LAB ANIMAL TECHNICIAN documented in this encounter Progress Notes * Almita Smallwood MD - 03/19/2019 2:41 PM CST HPI: Lisa Hermosillo is a 59 y.o. 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 Thinks she was a little overzealous during a workout. Potentially worsened by sleeping on her couch (bedroom is too cold right now) Also leans on left shoulder at night too Since she scheduled the appointment this weekend, shoulder has improved Feels a little grinding ROM improved today Diagnosed with vitamin B12 deficiency Mom of colon cancer. Patient has had multiple colonoscopies in the past, doesn't remember whenshe had her last one. Medications: Current Outpatient Medications on File Prior to Visit Medication Sig Dispense Refill ??? cyanocobalamin (VITAMIN B-12) 250 mcg Tablet [...] Genitourinary: Negative for dysuria and hematuria. Musculoskeletal: Positive for joint pain. Negative for myalgias and neck pain. Skin: Negative for rash. Neurological: Negative for dizziness, tingling, sensory change, speech change and focal weakness. Endo/Heme/Allergies: Does not bruise/bleed easily. Psychiatric/Behavioral: Negative for depression and substance abuse. The patient is not nervous/anxious. Objective: Physical Exam Constitutional: She is oriented to person, place, and time and well-developed, well-nourished, and in no distress. No distress. HENT: Head: Normocephalic and atraumatic. Right Ear: Hearing and external ear normal. Left Ear: Hearing and external ear normal. Eyes: Conjunctivae are normal. Right eye exhibits no discharge. Left eye exhibits no discharge. Neck: Neck supple. No tracheal deviation present. Cardiovascular: Normal rate, normal heart sounds and intact distal pulses. Exam reveals no frictionrub. No murmur heard. Pulmonary/Chest: Effort normal and breath sounds normal. No respiratory distress. She has no wheezes. She has no rales. Abdominal: Soft. Bowel sounds are normal. She exhibits no distension. Musculoskeletal: General: No tenderness, deformity or edema. Left shoulder: She exhibits decreased range of motion and pain. She exhibits no tenderness, no bonytenderness, no swelling, no effusion, no crepitus, no deformity, no laceration, no spasm, normal pulse and normal strength. Neurological: She is alert and oriented to person, place, and time. No cranial nerve deficit. She exhibits normal muscle tone. Gait normal. Coordination normal. GCS score is 15. Skin: Skin is warm and dry. No rash noted. She is not diaphoretic. No erythema. Psychiatric: Mood, memory, affect and judgment normal. Assessment and Plan: Lisa was seen today for shoulder pain. Diagnoses and all orders for this visit: Chronic left shoulder pain Improved now, given exercises to do at home. Patient to call if symptoms worsen or fail to continueto improve. 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 Tobacco Intervention She is not a tobacco user. Depression Screen Positive: PHQ-2 score >= 3 or PHQ-9 score >= 9 PHQ-2 Total: 0 (03/19/2019 2:00 PM) DEPRESSION PLAN OF CARE Her depression screen was normal Blood Pressure BP Readings from Last 3 Encounters: 03/19/19 124/76 12/21/18 132/67 12/06/18 131/53 Pre-hypertensive BP reading systolic between 120 to [...] and < 30 Body mass index is 23.4 kg/m??. BMI within normal limits Almita Smallwood MD [facility] Internal Medicine- [facility] ANIMAL TECHNICIAN documented in this encounter Miscellaneous Notes * Patient Instructions - Almita Smallwood MD - 03/19/2019 3:08 PM LAB ANIMAL TECHNICIAN Images from the original note were not included. Central Referral Scheduling will be contacting you by phone to schedule your colonoscopy. If you have not received a call within one business day, please call [phone] or , Tuesday through Tuesday between 8 a.m. and 5 p.m. To schedule your appointment. [facility] Grinding Room Supervisor - [facility] [place] [address] [place] [address] Drs. Rowland [facility] Women's Health - [address] [facility] [address] [place] [address] Jama Lopez, Al [facility] process control board operator - [facility] [address] [facility] [address] [address] Dorothy Cyr Parker, Buckley [facility] CONTACT CENTER AGENT - [facility] [address] [facility] [address] [place] [address] Jenn Bledsoe, Ej, Luz Maria [employer] Shoulder: Exercises Introduction Here are some examples of exercises for you to try. The exercises may be suggested for a condition or for rehabilitation. Start each exercise slowly. Ease off the exercises if you start to have pain. You will be told when to start these exercises and which ones will work best for you. How to do the exercises Pendulum swing 1. Hold on to a table or the back of a chair with your good arm. Then bend forward a little and letyour sore arm hang straight down. This exercise does not use the arm muscles. Rather, use your legsand your hips to create movement that makes your arm swing freely. 2. Use the movement from your hips and legs to guide the slightly swinging arm back and forth like a pendulum (or elephant trunk). Then guide it in circles that start small (about the size of a dinner plate). Make the circles a bit larger each day, as your pain allows. 3. Do this exercise for 5 minutes, 5 to 7 times each day. 4. As you have less pain, try bending over a little farther to do this exercise. This will increasethe amount of movement at your shoulder. Posterior stretching exercise 1. Hold the elbow of your injured arm with your other hand. 2. Use your hand to pull your injured arm gently up and across your body. You will feel a gentle stretch across the back of your injured shoulder. 3. Hold for at least 15 to 30 seconds. Then slowly lower your arm. 4. Repeat 2 to 4 times. Up-the-back stretch 1. Put your hand in your back pocket. Let it rest there to stretch your shoulder. 2. With your other hand, hold your injured arm (palm outward) behind your back by the wrist. Pull your arm up gently to stretch your shoulder. 3. Next, put a towel over your other shoulder. Put the hand of your injured arm behind your back. Now hold the back end of the towel. With the other hand, hold the front end of the towel in front of your body. Pull gently on the front end of the towel. This will bring your hand farther up your backto stretch your shoulder. Overhead stretch 1. Standing about an arm's length away, grasp onto a solid surface. You could use a countertop, a doorknob, or the back of a sturdy chair. 2. With your knees slightly bent, bend forward with your arms straight. Lower your upper body, and let your shoulders stretch. 3. As your shoulders are able to stretch farther, you may need to take a step or two backward. 4. Hold for at least 15 to 30 seconds. Then stand up and relax. If you had stepped back during yourstretch, step forward so you can keep your hands on the solid surface. 5. Repeat 2 to 4 times. Shoulder flexion (lying down) 1. Lie on your back, holding a wand with both hands. Your palms should face down as you hold the wand. 2. Keeping your elbows straight, slowly raise your arms over your head. Raise them until you feel astretch in your shoulders, upper back, and chest. 3. Hold for 15 to 30 seconds. 4. Repeat 2 to 4 times. Shoulder rotation (lying down) 1. Lie on your back. Hold a wand with both hands with your elbows bent and palms up. 2. Keep your elbows close to your body, and move the wand across your body toward the sore arm. 3. Hold for 8 to 12 seconds. 4. Repeat 2 to 4 times. Wall climbing (to the side) 1. Stand with your side to a wall so that your fingers can just touch it at an angle about 30 degrees toward the front of your body. 2. Walk the fingers of your injured arm up the wall as high as pain permits. Try not to shrug your shoulder up toward your ear as you move your arm up. 3. Hold that position for a count of at least 15 to 20. 4. Walk your fingers back down to the starting position. 5. Repeat at least 2 to 4 times. Try to reach higher each time. Wall climbing (to the front) 1. Face a wall, and stand so your fingers can just touch it. 2. Keeping your shoulder down, walk the fingers of your injured arm up the wall as high as pain permits. (Don't shrug your shoulder up toward your ear.) 3. Hold your arm in that position for at least 15 to 30 seconds. 4. Slowly walk your fingers back down to where you started. 5. Repeat at least 2 to 4 times. Try to reach higher each time. Shoulder blade squeeze 1. Stand with your arms at your sides, and squeeze your shoulder blades together. Do not raise yourshoulders up as you squeeze. 2. Hold 6 seconds. 3. Repeat 8 to 12 times. Scapular exercise: Arm reach 1. Lie flat on your back. This exercise is a very slight motion that starts with your arms raised (elbows straight, arms straight). 2. From this position, reach higher toward the nanette or ceiling. Keep your elbows straight. All motion should be from your shoulder blade only. 3. Relax your arms back to where you started. 4. Repeat 8 to 12 times. Arm raise to the side 1. Slowly raise your injured arm to the side, with your thumb facing up. Raise your arm 60 degrees at the most (shoulder level is 90 degrees). 2. Hold the position for 3 to 5 seconds. Then lower your arm back to your side. If you need to, bring your good arm across your body and place it under the elbow as you lower your injured arm. Use your good arm to keep your injured arm from dropping down too fast. 3. Repeat 8 to 12 times. 4. When you first start out, don't hold any extra weight in your hand. As you get stronger, you mayuse a 1-pound to 2-pound dumbbell or a small can of food. Shoulder flexor and extensor exercise 1. Push forward (flex): Stand facing a wall or doorjamb, about 6 inches or less back. Hold your injured arm against your body. Make a closed fist with your thumb on top. Then gently push your hand forward into the wall with about 25% to 50% of your strength. Don't let your body move backward as youpush. Hold for about 6 seconds. Relax for a few seconds. Repeat 8 to 12 times. 2. Push backward (extend): Stand with your back flat against a wall. Your upper arm should be against the wall, with your elbow bent 90 degrees (your hand straight ahead). Push your elbow gently backagainst the wall with about 25% to 50% of your strength. Don't let your body move forward as you push. Hold for about 6 seconds. Relax for a few seconds. Repeat 8 to 12 times. Scapular exercise: Wall push-ups 1. Stand facing a wall, about 12 inches to [address] your hands on the wall at shoulder height. 3. Slowly bend your elbows and bring your face to the wall. Keep your back and hips straight. 4. Push back to where you started. 5. Repeat 8 to 12 times. 6. When you can do this exercise against a wall comfortably, you can try it against a counter. You can then slowly progress to the end of a couch, then to a sturdy chair, and finally to the floor. Scapular exercise: Retraction 1. Put the band around a solid object at about waist level. (A bedpost will work well.) Each hand should hold an end of the band. 2. With your elbows at your sides and bent to 90 degrees, pull the band back. Your shoulder blades should move toward each other. Then move your arms back where you started. 3. Repeat 8 to 12 times. 4. If you have good range of motion in your shoulders, try this exercise with your arms lifted out to the sides. Keep your elbows at a 90-degree angle. Raise the elastic band up to about shoulder level. Pull the band back to move your shoulder blades toward each other. Then move your arms back where you started. Internal rotator strengthening exercise 1. Start by tying a piece of elastic exercise material to a doorknob. You can use surgical tubing or Thera-Band. 2. Stand or sit with your shoulder relaxed and your elbow bent 90 degrees. Your upper arm should rest comfortably against your side. Squeeze a rolled towel between your elbow and your body for comfort. This will help keep your arm at your side. 3. Hold one end of the elastic band in the hand of the painful arm. 4. Slowly rotate your forearm toward your body until it touches your belly. Slowly move it back to where you started. 5. Keep your elbow and upper arm firmly tucked against the towel roll or at your side. 6. Repeat 8 to 12 times. External rotator strengthening exercise 1. Start by tying a piece of elastic exercise material to a doorknob. You can use surgical tubing or Thera-Band. (You may also hold one end of the band in each hand.) 2. Stand or sit with your shoulder relaxed and your elbow bent 90 degrees. Your upper arm should rest comfortably against your side. Squeeze a rolled towel between your elbow and your body for comfort. This will help keep your arm at your side. 3. Hold one end of the elastic band with the hand of the painful arm. 4. Start with your forearm across your belly. Slowly rotate the forearm out away from your body. Keep your elbow and upper arm tucked against the towel roll or the side of your body until you begin to feel tightness in your shoulder. Slowly move your arm back to where you started. 5. Repeat 8 to 12 times. Follow-up care is a julian part of your treatment and safety. Be sure to make and go to all appointments, and call your doctor if you are having problems. It's also a good idea to know your test resultsand keep a list of the medicines you take. Where can you learn more? Go to https://www.[employer].net/patientEd Enter J005 in the search box to learn more about Rotator Cuff: Exercises. Current as of: October 11, 2018 Content Version: 12.2 ?? 6951-9879 [employer]. Care instructions adapted under license by your healthcare professional. If you have questions about a medical condition or this instruction, always ask your healthcare professional. These instructions may not represent the values of this healthcare organization. [employer] disclaims any warranty or liability for your use of this information. ANIMAL TECHNICIAN documented in this encounter Plan of Treatment Scheduled Referrals Name Type Priority Associated Diagnoses Order Schedule AMB REFERRAL TO GASTROENTEROLOGY Outpatient Referral Routine Family history of colon cancer requiring screening colonoscopy Screening for colon cancer Ordered: 03/19/2019 documented as of this encounter Visit Diagnoses Diagnosis Chronic left shoulder pain- Primary Pain in joint, shoulder region Vitamin B12 deficiency (non anemic) Other B-complex deficiencies Normocytic anemia Anemia, unspecified Family history of colon cancer requiring screening colonoscopy Family history of malignant neoplasm of gastrointestinal tract Screening for colon cancer Special screening for malignant neoplasms, colon 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 breast Healthcare maintenance Routine general medical examination at a health care facility documented in this encounter Care Teams Hvac Project Engineer Relationship Specialty Start Date End Date Almita Smallwood MD [address] [place] [address] PCP - General Internal Medicine 03/14/18 documented as of this encounter
--- OUTSIDE RECORDS SUMMARY | 2024-04-21 12:27 | XMS_ITS | Encounter Summary ---
Author Organization [facility] [employer] [facility] Address [address] [place] [address] Care Team Providers Care Table Worker Packager Name Role Phone Almita Smallwood MD Primary Care Provider + Reason for Visit * Reason Comments Follow Up 3 Month F/U Encounter Details Date Type Department Care Team (Late st Contact Info) Description 03/22/2019 3:15 PM CLAY CASTER Office Visit [facility] Oncology and Hematology - Brian [address] [facility] [address] [place] [address] Jacek Laura MD [address] [facility] [address] [place] [address] Mild anemia (Primary Dx); Other dietary vitamin B12 deficiency anemia Social History Tobacco Use Types Packs/Day Years [...] Sign Reading Time Taken Comments Blood Pressure 118/72 03/22/2019 3:12 PM CLAY CASTER Pulse 74 03/22/2019 3:12 PM CLAY CASTER Temperature 36.7 ??C (98.1 ??F) 03/22/2019 3:12 PM CS T Respiratory Rate - - Oxygen Saturation 98% 03/22/2019 3:12 PM CLAY CASTER Inhaled Oxygen Concentration - - Weight 66.1 kg (145 lb 12.8 oz) 03/22/2019 3:12 PM CLAY CASTER Height 167.6 cm (5' 6 ) 03/22/2019 3:12 PM CLAY CASTER Body Mass Index 23.53 03/22/2019 3:12 PM CLAY CASTER documented in this encounter Progress Notes * Jacek Laura MD - 03/22/2019 3:47 PM CST HEMATOLOGY / ONCOLOGY PROGRESS NOTE Patient Identification: Name: Lisa Hermosillo Age: 59 y.o. 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 Anemia Vitamin B12 deficiency CURRENT TREATMENT Tamoxifen started January 2017 TREATMENT HISTORY Left-sided lumpectomy November 22, 2016 Endocrine therapy with tamoxifen started in January 2017 Right axillary lymph node excisional biopsy done November 06, 2018 came back benign SUBJECTIVE Patient came into the office for follow-up visit for her anemia. She still has some tiredness and fatigue. She just [place] taking oral vitamin B12 2 weeks ago. Denies any bleeding and bruising. No new lumps bumps and lymphadenopathy. Review of system Constitutional: denies fevers, sweats, complain of tiredness and fatigue HEENT: denies sinus congestion, hearing or vision problems Respiratory: denies cough, dyspnea, wheeze Cardiovascular: denies chest pain, exertional chest pressure/discomfort, nausea, syncope, shortnessof breath GI: denies constipation, diarrhea, dsyphagia, reflux symptoms, vomiting, melena : denies dysuria, frequency, incontinence, urgency Integumentary system: no lymphadenopathy, sweats, flushing Musculoskeletal: denies: myalgia, arthralgia Neurological: denies blurry or disturbed vision, numbness/weakness, dizziness Skin: No lumps, bumps or rashes. 12 point review system was reviewed and as above Objective: Vital signs in last 24 hours: As per nursing note Exam: General appearance: alert, cooperative, no distress, appears stated age Head: normocephalic, without obvious abnormality, atraumatic Eyes: conjunctivae/corneas clear, EOM's intact Ears: normal external ear canals AU Nose: Nares normal. Septum midline. Mucosa normal. No drainage or sinus tenderness Throat: Lips, mucosa, and tongue normal. Teeth and gums normal Neck: supple, symmetrical, trachea midline. Lungs: clear to auscultation bilaterally Heart: regular rate and rhythm, S1, S2 normal, no murmur, click, rub or gallop Abdomen: soft, non-tender. Bowel sounds normal. No masses, No organomegaly Extremities: extremities normal, atraumatic, no cyanosis or edema Skin: Skin color, texture, turgor normal. No rashes or lesions Lymph nodes: No lymphadenopathy Neuro: No obvious focal deficit Examination as above PATH LABS Labs from December 21 showed WBC 3.4 hemoglobin 10.2 platelet 151,000 neutrophils 49% lymphocytes 39%. Labs from March 22, 2019 showed WBC 3.4 hemoglobin 10.6 platelet 159,000 neutrophils 52%. Assessment: Plan: Patient Active Problem List Diagnosis Date Noted ??? Lymphadenopathy, axillary 10/02/2018 ??? Inversion, nipple 06/30/2018 ??? Estrogen receptor positive status (ER+) 09/15/2017 ??? SERM use (selective estrogen receptor modulator) 09/15/2017 ??? Osteoporosis screening 09/15/2017 ??? 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 breast 01/07/2017 Normocytic anemia and leukopenia. Vitamin B12 level came back low at 191. Patient was supposed to start B12 injection but could not start due to insurance issues. She is taking oral vitamin B12 250 mg daily for last 2 weeks duration. She remains quite anemic. B12 level and iron studies are pending from today. I will order B12 injections on a weekly basis now. Until patient is start B12 injectionsI have instructed her to take oral B12 1000 mg p.o. daily along with iron 325 mg twice a day. I will see her back in 3 months as well. DCIS grade 2 with focal LCIS status post lumpectomy November 2016. Patient is on tamoxifen. There is no evidence of relapse of disease. Repeat imaging study will be done in October 2019. Hot flashes. Stable with acteane 03/22/2019 Jacek Laura MD CASTER documented in this encounter Plan of Treatment Not on file documented as of this encounter Visit Diagnoses Diagnosis Mild anemia- Primary Anemia, unspecified Other dietary vitamin B12 deficiency anemia documented in this encounter Care Teams Table Worker Packager Relationship Specialty Start Date End Date Almita Smallwood MD [address] [place] [phone] PCP - General Internal Medicine 03/14/18 documented as of this encounter
--- OUTSIDE RECORDS SUMMARY | 2024-04-21 12:27 | XMS_ITS | Encounter Summary ---
Author Organization [facility] Address [address] [place] [address] Care Team Providers Care Cabinetmaker Apprentice Name Role Phone Almita Smallwood MD Primary Care Provider + Reason for Referral * Eval and Treat (Urgent) - Closed Specialty Diagnoses / Procedures Referred By Tati campos Referred To Contact Pulmonology Diagnoses Shortness of breath Dyspnea on exertion Almita Smallwood MD [address] [place] [address] Tom Luo MD [id number] [place] [address] Referral ID Status Reason Start Date Expiration Date Visits Re quested Visits Authorized [id number] Closed 02/28/2020 02/27/2021 1 1 FINISHING SUPERVISOR Reason for Visit * Reason Onset Date Comments Results 02/28/2020 Encounter Details Date Type Department Care Team ([facility] Contact Info) Description 02/28/2020 Telephone [facility] Internal Medicine [facility] [address] [place] [address] Almita Smallwood MD [address] [place] [address] Results Social History Tobacco Use [...] COVID-19? No / Unsure 02/28/2020 7:54 AM PIPE FINISHING SUPERVISOR documented as of this encounter Miscellaneous Notes * Telephone Encounter - Christin Leary RN - 02/28/2020 11:21 AM CST Pt aware of Dr Smallwood's recommendations and wants to see Form Stripper so referral placed per Dr Smallwood'sorders and pt aware [facility] will schedule appt with Pulmonology.Pt verbalizes understanding.Dr Smallwood aware. FINISHING SUPERVISOR * Telephone Encounter - Almita Smallwood MD - 02/28/2020 10:26 AM PIPE FINISHING SUPERVISOR Has she been using the albuterol? If so, may need to see acid changer or Pulm FINISHING SUPERVISOR * Telephone Encounter - Christin Leary RN - 02/28/2020 9:56 AM CST Pt aware per Dr Smallwood's orders that stress test was normal.Pt states what is next step pt states if shuts window in her appt she feels worse states her head gets full,chest tight,nostrils feel like swelling.Pt been taking Xyzal and using nasal spray and it has helped a little.the patient states gets winded and wants to know what the next step is.Please advise. FINISHING SUPERVISOR * Telephone Encounter - Christin Leary RN - 02/28/2020 9:56 AM CST ----- Message from Almita Smallwood MD sent at 02/28/2020 9:28 AM PIPE FINISHING SUPERVISOR ----- Please call patient with following results. Stress test normal. FINISHING SUPERVISOR documented in this encounter Plan of Treatment Scheduled Referrals Name Type Priority Associated Diagnoses Orde r Schedule AMB REFERRAL TO PULMONARY Outpatient Referral Routine Shortness of breath Dyspnea on exertion Ordered: 02/28/2020 documented as of this encounter Visit Diagnoses Diagnosis Shortness of breath- Primary Dyspnea on exertion Other dyspnea and respiratory abnormality documented in this encounter Additional Health Concerns Assessment Noted Time PHQ-9 Depression Total Score: 2 02/15/20 20 3:00 PM CDT documented as of this encounter Care Teams Cabinetmaker Apprentice Relationship Specialty Start Date End Date Almita Smallwood MD [address] [place] [address] PCP - General Internal Medicine 03/14/18 documented as of this encounter
--- OUTSIDE RECORDS SUMMARY | 2024-04-21 12:27 | XMS_ITS | Encounter Summary ---
Author Organization [facility] Address [address] Attn: [place] [address] Care Team Providers Care Needle Straightener Name Role Phone Almita Smallwood MD Primary Care Provider + Encounter Details Date Type Department Care Team (Latest Contact Info) Description 02/21/2020 Travel Social History Tobacco Use Types Packs/Day [...] COVID-19? No / Unsure 02/21/2020 9:18 AM MANAGER CCU documented as of this encounter Plan of Treatment Not on file documented as of this encounter Visit Diagnoses Not on filedocumented in this encounter Additional Health Concerns Assessment Noted Time PHQ-9 Depression Total Score: 2 02/15/20 20 3:00 PM CDT documented as of this encounter Care Teams Needle Straightener Relationship Specialty Start Date End Date Almita Smallwood MD [address] [place] [address] PCP - General Internal Medicine 03/14/18 documented as of this encounter
--- OUTSIDE RECORDS SUMMARY | 2024-04-21 12:27 | XMS_ITS | Encounter Summary ---
Author Organization [facility] Address [address] [place] [address] Care Team Providers Care Phone Circuit Operator Name Role Phone Almita Smallwood MD Primary Care Provider + Reason for Referral * Eval and Treat (Routine) - Closed Specialty Diagnoses / Procedures Referred By Tati campos Referred To Contact Oncology Diagnoses 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 breast Almita Smallwood MD [address] [place] [address] Reji Cain MD [address] [place] [address] Referral ID Status Reason Start Date Expiration Date Visits Re quested Visits Authorized [id number] Closed 02/15/2020 04/17/2020 6 6 * Radiology Services (Routine) - Closed Specialty Diagnoses / Procedures Referred By Tati campos Referred To Contact Cardiology Diagnoses Chest pain, unspecified type Procedures ECHO STRESS TEST EXERCISE Almita Smallwood MD [address] [place] [address] [facility] Nuclear Cardiology [address] [place] [address] Referral ID Status Reason Start Date Expiration Date V isits Requested Visits Authorized [id number] Closed [facility] CTS 02/25/2020 03/25/2020 1 1 * CT Scan (Routine) - Closed Specialty Diagnoses / Procedures Referred By Contosmin t Referred To Contact Radiology Diagnoses Dyspnea on exertion Shortness of breath Procedures CT CHEST W CONTRAST Almita Smallwood MD [address] [place] [address] Scan [address] [place] [address] Referral ID Status Reason Start Date Expiration Date V isits Requested Visits Authorized [id number] Closed STL CTS 02/20/2020 03/20/2020 1 1 Reason for Visit * Reason Comments Sinus Problem drainage Chest Tightness chest discomfort and trouble taking deep breaths Headache sinus headache Encounter Details Date Type Department Care Team (Late st Contact Info) Description 02/15/2020 3:00 PM CDT Office Visit [facility] Internal Medicine - [address] [address] Almita Smallwood MD [address] [place] [id number] Dyspnea on exertion (Primary Dx); Shortness of breath; Fatigue, unspecified type; Encounter for screening mammogram for malignant neoplasm of breast; History of ductal carcinoma in situ (DCIS) of breast; Encounter for vitamin deficiency screening; Chest pain, unspecified type; 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 [...] have Coronavirus / COVID-19? No / Unsure 02/15/2020 2:53 PM CDT documented as of this encounter Last Filed Vital Signs Vital Sign Reading Time Taken Comments Blood Pressure 132/76 02/15/2020 3:10 PM CDT Pulse 80 02/15/2020 3:10 PM CDT Temperature 36.9 ??C (98.5 ??F) 02/15/2020 3:10 PM CD T Respiratory Rate 16 02/15/2020 3:10 PM CDT Oxygen Saturation - - Inhaled Oxygen Concentration - - Weight 69.5 kg (153 lb 4 oz) 02/15/2020 3:10 PM CDT Height 167.6 cm (5' 6 ) 02/15/2020 3:10 PM CDT Body Mass Index 24.74 02/15/2020 3:10 PM CDT documented in this encounter Progress Notes * Almita Smallwood MD - 02/15/2020 12:53 PM CDTAssociated Order(s): EKG 12-LEAD Pre-Procedure Diagnose(s): Chest pain, unspecified type Post-Procedure Diagnose(s): Chest pain, unspecified type HPI: Lisa Hermosillo is a 60 y.o. female here for acute visit. See message below from 02/06: Hello, I am still sick and have been tested for COVID twice both times coming back negative. I understand that I may still have had or have COVID but this has been going on since October. I went to urgent care as I was finding difficult to take a deep breath and my heart was racing and they said chest x-ray was clear and EKG was normal. I understand that these are unusual times but I am wondering if there isn't something else that is going on, other than COVID. I would hate to be dying of something else while everyone tells me that it's COVID. I have occasional good days where I feel like all is well but it comes back the next day. I have had two rounds of antibiotics and felt great after each but it just came back. My face has the worse than normal sinus pain in the forehead, checks and myears are plugged. I am not running a fever and my throat is only soar after I take the nose spray prescribed by the urgent care (along with steroids, which did help a little). Humidity seems to causethe breathing to struggle. Having the heat/ac on in my apartment seems to cause problems. I wake upin the morning feeling okay until I start doing stuff then the head pressure starts and taking a deep breath is problematic. I am gaining weight and I can smell ok, mostly. Sometimes my nostrils feelswollen as does my throat. I did a mold test in my apartment but it did not look so very good in myliving area. I would like to be tested, just in case, for mold allergies but I think I need to havea referral for that. I am so tired of being sick and struggling to take a deep breath. Can I get a referral or an appointment to talk about a referral? Pt was referred to ENT, then sent follow up message below from 02/10: I went to the ENT clinic where she looked at my nose, throat and ears and listened to my lungs andsaid she saw nothing but slight swelling in the nostrils. Still having trouble with breathing over the weekend and I'm kind of done with this. I asked a [facility] doctor over the weekend. Based on what I told her, she prescribed an inhaler which does seem to be helping. But she also suggested that Ineeded to get a full heart and pulmonary checkup including CT scan, I am assuming of the lungs. Theinhaler is helping. Yesterday my breathing was pretty good and I had energy. Today, after closing the window and using the heat in my apartment, the inhaler is not quite as good which is making me think allergies - perhaps asthma brought on by allergies? She mentioned emphysema, too, so of course I'm kind of freaking out. Anyway, I have an appointment to get the CT scan on my sinuses but want to know if there is a placewhere I can go to get everything done and not have to have separate appointments. Also, do I need to get a referral for the heart and lung workup? Needed to have a complete physical anyway?! I am working from home this week so if it's allergies, it won't be fun but I will not have access to my computer. Could you call me with a response? Started in the head, felt drainage coming down and going into her chset, two rounds of antibiotics.She felt good for a week She wonders if the COVID testing was a false negative Feels pretty good today Gets sinus stuff still, every day. Sinus issues are getting worse every year. Had been taking allergy medication, but stopped because it wasn't helping. Generic Claritin Yesterday had some more SOB, harder to take a deep breath. Was stressed at that time. [place] better after stressful appoitnment. Had some point in center of chest, has been having left chest pain too. Wondering if she is allergic to her apartment. Freaked out by all of this. Medications: Current Outpatient Medications on File Prior to Visit Medication Sig Dispense Refill ??? predniSONE (DELTASONE) 20 mg tablet TAKE 2 TABLETS BY MOUTH ONCE DAILY FOR 4 DAYS AND THEN 1 TABLET ONCE DAILY FOR 4 DAYS ??? ipratropium bromide (ATROVENT) 42 mcg (0.06 %) [place], Non-Aerosol USE 1 TO 2 SPRAY(S) IN EACH NOSTRIL THREE TIMES DAILY ??? multivitamin (MULTIPLE VITAMINS DAILY ORAL) Take 6 Each by mouth daily. Gummy vitamins ??? pseudoephedrine (SUDAFED) 30 mg tablet Take 60 mg by mouth every 4 hours as needed. ??? COLLAGEN MISC by Misc.(Non-Drug; Combo Route) route. ??? [DISCONTINUED] albuterol HFA 90 mcg inhaler Take 2 Puffs by inhalation every 4 hours as needed. ??? dextromethorphan-guaiFENesin (MUCINEX DM) 30-600 mg Tablet Sustained Release 12HR Take 1 Tabletby mouth every 12 hours. ??? cyanocobalamin (VITAMIN B-12) 250 mcg Tablet Take 250 mcg by mouth daily. ??? tamoxifen (NOLVADEX) 20 mg tablet Take 1 Tablet (20 mg) by mouth daily. 90 Tablet 4 ??? TURMERIC ORAL Take by mouth. No current facility-administered medications on file prior to visit. Review of Systems Constitutional: Positive for malaise/fatigue. Negative for chills, fever and weight loss. HENT: Negative for ear discharge, ear pain and nosebleeds. Eyes: Negative for double vision, photophobia, pain and discharge. Respiratory: Positive for shortness of breath. Negative for cough, sputum production and wheezing. Cardiovascular: Positive for chest pain. Negative for palpitations, orthopnea and leg swelling. Gastrointestinal: Negative for abdominal pain, blood in stool, nausea and vomiting. Genitourinary: Negative for dysuria and hematuria. Musculoskeletal: Negative for joint pain, myalgias and neck pain. Skin: Negative for rash. Neurological: Positive for headaches. Negative for dizziness, tingling, sensory change, speech [...] are normal. She exhibits no distension. Musculoskeletal: Normal range of motion. General: No tenderness, deformity or edema. Neurological: She is alert and oriented to person, place, and time. No cranial nerve deficit. She exhibits normal muscle tone. Gait normal. Coordination normal. GCS score is 15. Skin: Skin is warm and dry. No rash noted. She is not diaphoretic. No erythema. Psychiatric: Memory, affect and judgment normal. Her mood appears anxious. She does not exhibit a depressed mood. She expresses no homicidal and no suicidal ideation. She expresses no suicidal plans and no homicidal plans. EKG 12-LEAD Date/Time: 02/15/2020 4:28 PM Performed by: Almita Smallwood MD Authorized by: Almita Smallwood MD Comparison: not compared with previous ECG Previous ECG: no previous ECG available Rhythm: sinus rhythm Rate: normal QRS axis: normal Conduction: conduction normal ST Segments: ST segments normal Other: no other findings Clinical impression: normal ECG Assessment and Plan: ICD-10-CM ICD-9-CM 1. Dyspnea on exertion R06.[address] CHEST W CONTRAST TSH REFLEXIVE CBC WITH DIFFERENTIAL COMPREHENSIVE METABOLIC PANEL albuterol HFA 90 mcg inhaler TSH REFLEXIVE CBC WITH DIFFERENTIAL COMPREHENSIVE METABOLIC PANEL 2. Shortness of breath R06.[address] CHEST W CONTRAST albuterol HFA 90 mcg inhaler 3. Fatigue, unspecified type R53.83 780.79 TSH REFLEXIVE VITAMIN B12 LEVEL CBC WITH DIFFERENTIAL COMPREHENSIVE METABOLIC PANEL TSH REFLEXIVE VITAMIN B12 LEVEL CBC WITH DIFFERENTIAL COMPREHENSIVE METABOLIC PANEL 4. Encounter for screening mammogram for malignant neoplasm of breast Z12.31 V76.12 MAMMO SCRN BILAT 3D RUTH W OR WO CAD 5. History of ductal carcinoma in situ (DCIS) of breast Z86.000 V13.89 MAMMO SCRN BILAT 3D RUTH W OR WO CAD 6. Encounter for vitamin deficiency screening Z13.21 V77.99 VITAMIN D 25 HYDROXY VITAMIN D 25 HYDROXY 7. Chest pain, unspecified type R07.9 786.50 EKG 12-LEAD ECHO STRESS TEST EXERCISE 8. 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 breast D05.12 233.0 AMB REFERRAL TO ONCOLOGY Patient has had several different symptoms recently including HUBBARD, sinus drainage, SOB, CABRALES, chest pain She does notice breathing is worse when windows are open and albuterol does help some. Could be allergy induced asthma Also cannot rule out false negative on prior COVID testing with residual post COVID symptoms, although unlikely as she has been tested for COVID multiple times Broad differential including pulmonary, cardiac etiologies. Given history of malignancy, persistentDOE/SOB despite negative CXR, recommend CT Chest w/ contrast Check labs as above EKG in office non ischemic, but given risk factors and symptoms, recommend checking stress test as above given chest pain. Overdue for mammogram, doesn't want to go back to previous oncologist. Needs to reestablish with new oncologist, referral provided. Patient aware. Follow up - Dependent on results and clinical course Tobacco Intervention She is not a tobacco user. Depression Screen Positive: PHQ-2 score >= 3 or PHQ-9 score >= 9 PHQ-2 Total: 2 (02/15/2020 3:00 PM) PHQ-9 Total: 7 (02/15/2020 3:00 PM) DEPRESSION PLAN OF CARE Her depression screen was normal Blood Pressure BP Readings from Last 3 Encounters: 02/15/20 132/76 03/22/19 118/72 03/19/19 124/76 Pre-hypertensive BP reading systolic between 120 to [...] and < 30 Body mass index is 24.74 kg/m??. BMI within normal limits [facility]mita Smallwood MD [facility] documented in this encounter Miscellaneous Notes * Result Encounter Note - Almita Smallwood MD - 02/18/2020 12:55 PM HYDROGEN [employer]OWER [employer] ENGINEER Please call patient with following results. Labs overall look unremarkable. Vitamin levels, thyroid all normal. Her blood glucose was a little high, but if she was not fasting that is nothing to worry about. She is slightly anemic, but just borderline, and it is not new and is stable. Aside from making sure she is up to date on her colon cancer screening, there is nothing else that needs to be done for that. Overall nothing on blood work to explain symptoms, will await imaging OGEN POWER [employer] ENGINEER documented in this encounter Plan of Treatment Scheduled Referrals Name Type Priority Associated Diagnoses Orde r Schedule AMB REFERRAL TO ONCOLOGY Outpatient Referral Routine 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 breast Ordered: 02/15/2020 documented as of this encounter Procedures Procedure Name Priority Date/Time Associated Diagnosis Comments TSH REFLEXIVE Routine 02/15/2020 3:46 PM CDT Dyspnea on exertion Fatigue, unspecified type CBC WITH DIFFERENTIAL Routine 02/15/2020 3:46 PM CDT Dyspnea on exertion Fatigue, unspecified type VITAMIN D 25 HYDROXY Routine 02/15/2020 3:46 PM CDT Encounter for vitamin deficiency screening VITAMIN B12 LEVEL Routine 02/15/2020 3:4 6 PM CDT Fatigue, unspecified type COMPREHENSIVE METABOLIC PANEL Routine 02/15/2020 3:46 PM CDT Dyspnea on exertion Fatigue, unspecified type UT ECG ROUTINE ECG W/LEAST 12 LDS W/I&R Routine 02/15/2020 12:53 PM CDT Chest pain, unspecified type documented in this encounter Results * ECHO STRESS TEST EXERCISE (02/28/2020 8:52 AM HYDROGEN [employer]OWER PLANT ENGINEER) EJECTION FRACTION INTERFACE SYSTEM 02/28/2020 8:20 AM HYDROGEN POWER PLANT ENGINEER Narrative INTERFACE SYSTEM - 02/28/2020 9:08 AM HYDROGEN POWER PLANT ENGINEER -- [address] [address] [email or web address] -- Stress Echocardiography Tato Protocol -- Patient: ?Lisa Hermosillo MRN: ?[id number] Study ID: ? [id number] Gender: ? F : ?1960 Age: ?60 Race: ? CAU Height Study Date: ? 02/28/2020 Weight: Access. #: ?[id number] Account #: ?[id number] BP: -- -- *Referring Physician:* Almita Smallwood Catherine Louise *Ordering Physician:* ??Almita Smallwood Plate Mounter: food counselor: Nurse: -- Indications: Chest pain. STUDY CONCLUSIONS: SUMMARY: -- - Stress: Functional capacity was normal. - Stress ECG conclusions: The stress ECG was negative for ischemia. - Stress echo: There was no echocardiographic evidence for stress-induced ??ischemia. - Baseline: LV global systolic function was normal. -- Impressions: ?? Normal Stress Echocardiogram. Cardiac Anatomy: Baseline ECG: ?? Normal sinus rhythm. Normal tracing. Stress protocol: -- - Baseline HR: 90bpm BP: 141/79 - Exercise HR: 159bpm BP: 207/49 -- Stress results: ?? Maximal heart rate during stress was 159bpm (98% of maximal predicted heart rate). The maximal predicted heart rate was 162bpm.The target heart rate was 138bpm.The heart rate response to stress was normal. There was resting hypertension with an appropriate response to stress. The rate-pressure product for the peak heart rate and blood pressure was 96795gz Hg/min. ??The patient experienced no chest pain during stress. ?? Functional capacity was normal. ?Treadmill exercise testing was performed using the Tato protocol. The patient exercised for 7 min 1 sec, to a maximal work rate of 10.1mets. Exercise was terminated due to achievement of target heart rate, dyspnea, and fatigue. Stress ECG: ??There were no stress arrhythmias or conduction abnormalities. The stress ECG was negative for ischemia. Baseline: LV size was normal. LV global systolic function was normal. Normal wall motion; no LV regional wall motion abnormalities. Peak stress: LV size was reduced. LV global systolic function was augmented. Normal wall motion; no LV regional wall motion abnormalities. Stress echo results: ? There was no echocardiographic evidence for stress-induced ischemia. Procedure data: Consent: ??The risks, benefits, and alternatives to the procedure were explained to the patient and informed consent was obtained. ??Procedure information: ??Initial setup. The patient was brought to the laboratory. A baseline ECG was recorded. Surface ECG leads and automatic cuff blood pressure measurements were monitored. Transthoracic stress echocardiography. Images were captured at baseline and peak exercise. ??Study completion: ??There were no complications. ?Tato protocol. Stress echocardiography. ??Birthdate: Patient birthdate: 1960. ??Age: ??Patient is 60yr old. ??Sex: ?? gender: female. ??Study date: ??Study date: 02/28/2020. Study time: 08:20 AM. ??Prepared and Electronically Authenticated Benjy Chaudhari [id number]:50 Procedure Note Benjy Chaudhari MD - 02/28/2020 -- [address] [place] [address] [email or web address] -- Stress Echocardiography Tato Protocol -- Patient: Lisa Hermosillo Study ID: [id number] Gender: F : 1960 Age: 60 Race: [facility] Height Study Date: 02/28/2020 Weight: Access. #: [id number] BP: -- -- *Referring Physician:Almita Cabrera Catherine Louise *Ordering Physician:Almita Cabrera Plate Mounter: food counselor: Nurse: -- Indications: Chest pain. STUDY CONCLUSIONS: SUMMARY: -- - Stress: Functional capacity was normal. - Stress ECG conclusions: The stress ECG was negative for ischemia. - Stress echo: There was no echocardiographic evidence forstress-induced ischemia. - Baseline: LV global systolic function was normal. -- Impressions: Normal Stress Echocardiogram. Cardiac Anatomy: Baseline ECG: Normal sinus rhythm. Normal tracing. Stress protocol: -- - Baseline HR: 90bpm BP: 141/79 - Exercise HR: 159bpm BP: 207/49 -- Stress results: Maximal heart rate during stress was 159bpm (98% ofmaximal predicted heart rate). The maximal predicted heart rate was 162bpm.Thetarget heart rate was 138bpm.The heart rate response to stress was normal. Therewas resting hypertension with an appropriate response to stress. Therate-pressure product for the peak heart rate and blood pressure was 31109wk Hg/min.The patient experienced no chest pain during stress. Functional capacitywas normal. Treadmill exercise testing was performed using the Bruceprotocol. The patient exercised for 7 min 1 sec, to a maximal work rate of10.1mets. Exercise was terminated due to achievement of target heart rate, dyspnea,and fatigue. Stress ECG: There were no stress arrhythmias or conductionabnormalities. The stress ECG was negative for ischemia. Baseline: LV size was normal. LV global systolic function was normal.Normal wall motion; no LV regional wall motion abnormalities. Peak stress: LV size was reduced. LV global systolic function wasaugmented. Normal wall motion; no LV regional wall motion abnormalities. Stress echo results: There was no echocardiographic evidence for stress-induced ischemia. Procedure data: Consent: The risks, benefits, and alternatives to the procedure were explained to the patient and informed consent was obtained. Procedure information: Initial setup. The patient was brought to the laboratory.A baseline ECG was recorded. Surface ECG leads and automatic cuff bloodpressure measurements were monitored. Transthoracic stress echocardiography.Images were captured at baseline and peak exercise. Study completion: Therewere no complications. Tato protocol. Stress echocardiography.Birthdate: Patient birthdate: 1960. Age: Patient is 60yr old. Sex: gender: female. Study date: Study date: 02/28/2020. Study time: 08:20AM. Prepared and Electronically Authenticated Benjy Chaudhari [id number]:50 Almita Smallwood MD ORDERABLES INTERFACE SYSTEM Refer to clinic/hospital department * CT CHEST W CONTRAST (02/21/2020 10:40 AM HYDROGEN POWER PLANT ENGINEER) Anatomical Region Laterality Modality Chest Computed Tomogra phy 02/21/2020 10:4 2 AM HYDROGEN [employer]OWER [employer] ENGINEER Impressions 02/21/2020 3:28 PM HYDROGEN [employer]OWER [employer] ENGINEER IMPRESSION: No acute cardiopulmonary process. Mild lung emphysema. Possible left hepatic lobe 1 cm hemangioma, not well characterized on this exam. Upper back subcutaneous nodule likely representing sebaceous cyst. Correlate clinically. DICTATION LOCATION: Location [address] [place] [address] The examination was performed with the adjustment of mA according to the patient size and/or the use of Iterative Reconstruction Technique. Narrative 02/21/2020 3:28 PM HYDROGEN POWER PL[employer] ENGINEER CT OF THE CHEST WITH INTRAVENOUS CONTRAST [...] mm hypodense lesion may represent a hemangioma. Procedure Note Matthew Torres MD - 02/21/2020 CT OF THE CHEST WITH INTRAVENOUS CONTRAST [...] mm hypodense lesion may represent a hemangioma. IMPRESSION: No acute cardiopulmonary process. Mild lung emphysema. Possible left hepatic lobe 1 cm hemangioma, not well characterized on this exam. Upper back subcutaneous nodule likely representing sebaceous cyst. Correlate clinically. DICTATION LOCATION: [address] The examination was performed with the adjustment of mA according to the patient size and/or the use of Iterative Reconstruction Technique. Almita Smallwood MD CT ORDERABLES * VITAMIN D 25 HYDROXY (02/15/2020 3:46 PM CDT) VITAMIN D TOTAL (25OH) 48 30 - 100 ng/mL 02/15/2020 10:08 PM CDT [facility] Blood Venipuncture / Unknown 02/15/2020 3:46 PM CDT 02/15/2020 3:47 PM CDT Narrative [facility] - 02/15/2020 10:08 PM CDT Interpretive Data Chart: Deficient: ? 0 - 20 ng/mL Insufficient: ?21 - 29 ng/mL Sufficient: ?30 - 100 ng/mL Increased Risk of Hypercalciuria: ??>100 ng/ml Toxic: ? >150 ng/ml Almita Smallwood MD CHEMISTRY ORDERA MAYA [facility]ORATORY SERVICES - [facility] CLIA# [id number] [address] [facility] [place] [address] * (ABNORMAL) COMPREHENSIVE METABOLIC PANEL (02/15/2020 3:46 PM CDT) SODIUM 138 136 - 145 mmol/L 02/15/2020 9:46 PM CDT [facility] POTASSIUM 3.9 3.5 - 5.0 mmol/L 02/15/2020 9:46 PM CDT [facility] CHLORIDE 99 98 - 107 mmol/L 02/15/2020 9:46 PM CDT [facility] CO2 25 22 - 29 mmol/L 02/15/2020 9:46 PM CDT [facility] CALCIUM 9.7 8.6 - 10.2 mg/dL 02/15/2020 9:46 PM CDT [facility] BUN 16 6 - 20 mg/dL 02/15/2020 9:46 PM CDT [facility] CREATININE 0.91 0.51 - 0.95 mg/dL 02/15/2020 9:46 PM CDT [facility] GLUCOSE 111(H) 74 - 99 mg/dL 02/15/2020 9:46 PM CDT [facility] TOTAL PROTEIN 7.2 6.7 - 8.6 g/dL 02/15/2020 9:46 PM CDT [facility] ALBUMIN 4.4 3.5 - 5.2 g/dL 02/15/2020 9:46 PM CDT [facility] LABORATORY SERVICES [facility] BILIRUBIN TOTAL 0.4 0.3 - 1.2 mg/dL 02/15/2020 9:46 PM CDT [facility] ALKALINE PHOSPHATASE 78 35 - 104 U/L 02/15/2020 9:46 PM CDT [facility] LABORATORY SERVICES [facility] AST 23 <33 U/L 02/15/2020 9:46 PM CDT [facility] LABORATORY SERVICES - [facility] ALT 19 <34 U/L 02/15/2020 9:46 PM CDT [facility] GFR >60 >=60 mL/min/1.7 3 sq meter 02/15/2020 9:46 PM CDT [facility] Comment: eGFR has not been validated for use in the elderly (> 70 years of age), women, patients with serious co-morbid conditions, or persons with extremes of body size or muscle mass and should also be interpreted with caution in patients with acute kidney failure, dialysis dependent patients, patients reporting exceptional dietary intake (e.g. vegetarian diet, high protein diets, creatine supplementation), and patients with severe liver disease. Based on National Kidney Disease Education Program If patient is , please refer to the GFR result. GFR, >60 >=60 mL/min/1.7 3 sq meter 02/15/2020 9:46 PM CDT [facility] ANION GAP 14 8 - 16 mmol/L 02/15/2020 9:46 PM T [facility] Blood Venipuncture / Unknown 02/15/2020 3:46 PM CDT 02/15/2020 3:47 PM CDT Narrative [facility] - 02/15/2020 9:46 PM CDT Samples containing indocyanine green cause interferences on Total and/or Direct Bilirubin and must not be measured. Almita Smallwood MD CHEMISTRY ORDERA BLES [facility] CLIA# [id number] [address] [facility] [place] [address] * (ABNORMAL) CBC WITH DIFFERENTIAL (02/15/2020 3:46 PM CDT) [facility] WBC 6.6 4.0 - 9.8 K/uL 02/15/2020 9:25 PM CDT [facility] RBC 3.72(L) 3.90 - 4.90 M/uL 02/15/2020 9:25 PM CDT [facility] HEMOGLOBIN 11.5(L) 11.8 - 14.8 g/dL 02/15/2020 9:25 PM CDT [facility] HEMATOCRIT 35.2(L) 35.5 - 44.0 % 02/15/2020 9:25 PM CDT [facility] MCV 94.6 82.0 - 99.0 fL 02/15/2020 9:25 PM CDT [facility] MCH 30.9 27.2 - 32.6 pg 02/15/2020 9:25 PM CDT [facility] MCHC 32.7 31.5 - 35.5 g/dL 02/15/2020 9:25 PM CDT [facility] RDW 12.6 11.5 - 14.5 % 02/15/2020 9:25 PM CDT [facility] RDW-STDEV 43.0 37.1 - 48.7 fL 02/15/2020 9:25 PM CDT [facility] PLATELETS 265 140 - 350 K/uL 02/15/2020 9:25 PM CDT [facility] MPV 9.4 9.3 - 12.4 fL 02/15/2020 9:25 PM CDT [facility] NEUTROPHILS 78 % 02/15/2020 9:25 PM CDT [facility] LYMPHOCYTES 16 % 02/15/2020 9:25 PM CDT [facility] MONOCYTES 5 % 02/15/2020 9:25 PM CDT [facility] EOSINOPHILS 1 % 02/15/2020 9:25 PM CDT [facility] BASOPHILS 0 % 02/15/2020 9:25 PM CDT [facility] IMMATURE GRANULOCYTES 0 % 02/15/2020 9:25 PM CDT [facility] NEUTROPHIL ABSOLUTE 5.12 1.90 - 7.00 K/uL 02/15/2020 9:25 PM CDT [facility] LYMPHOCYTE ABSOLUTE 1.05 0.70 - 4.50 K/uL 02/15/2020 9:25 PM CDT [facility] MONOCYTE ABSOLUTE 0.31 0.10 - 1.30 K/uL 02/15/2020 9:25 PM CDT [facility] EOSINOPHIL ABSOLUTE 0.03 0.00 - 0.70 K/uL 02/15/2020 9:25 PM CDT [facility] BASOPHILS ABSOLUTE 0.02 0.00 - 0.20 K/uL 02/15/2020 9:25 PM CDT [facility] IMMATURE GRANULOCYTES ABSOLUTE 0.02 0.00 - 0.03 K/uL 02/15/2020 9:25 PM CDT [facility] Blood Venipuncture / Unknown 02/15/2020 3:46 PM CDT 02/15/2020 3:47 PM CDT Almita Smallwood MD HEMATOLOGY ORDER [facility]# [id number] [address] [place] [address] * VITAMIN B12 LEVEL (02/15/2020 3:46 PM CDT) [facility] VITAMIN B12 495 232-1,245 pg/mL 02/15/2020 10:08 PM CDT [facility] Comment:It has been reported that between 5 to 10% of patients with values between 200 and 400 pg/mL may experience neuropsychiatric and hematologic abnormalities due to occult B12 deficiency. Less than 1% of patients with values above 400 pg/mL will have symptoms. Blood Venipuncture / Unknown 02/15/2020 3:46 PM CDT 02/15/2020 3:47 PM CDT Almita Smallwood MD CHEMISTRY YAZAN TREJO Performing Organization Address City/[facility]/ZIP Co de Phone Number [facility]# [id number] [address] [place] [address] * TSH REFLEXIVE (02/15/2020 3:46 PM CDT) TSH 1.55 0.27 - 4.20 uIU/mL 02/15/2020 9:54 PM CDT [facility] Blood Venipuncture / Unknown 02/15/2020 3:46 PM CDT 02/15/2020 3:47 PM CDT Almita TREJO Performing Organization Address [facility] Co de Phone Number [facility]# [id number] [address] [place] [address] * UT ECG ROUTINE ECG W/LEAST 12 LDS W/I&R (02/15/2020 12:53 PM CDT) Narrative [facility] [place] - 02/15/2020 12:53 PM CDT Almita Smallwood MD ? 02/15/2020 ??4:29 PM EKG 12-LEAD Date/Time: 02/15/2020 4:28 PM Performed by: Almita Smallwood MD Authorized by: Almita Smallwood MD Comparison: not compared with previous ECG Previous ECG: no previous ECG available Rhythm: sinus rhythm Rate: normal QRS axis: normal Conduction: conduction normal ST Segments: ST segments normal Other: no other findings Clinical impression: normal ECG Procedure Note Almita Smallwood MD - 02/15/2020 12:53 PM CDT HPI: Lisa Hermosillo is a 60 y.o. female here for acutevisit. See message below from 02/06: Hello, I am still sick and have been tested for COVID twice both timescoming back negative. I understand that I may still have had or have COVIDbut this has been going on since October. I went to urgent care as I wasfinding difficult to take a deep breath and my heart was racing and theysaid chest x-ray was clear and EKG was normal. I understand that these areunusual times but I am wondering if there isn't something else that isgoing on, other than COVID. I would hate to be dying of something elsewhile everyone tells me that it's COVID. I have occasional good days whereI feel like all is well but it comes back the next day. I have had tworounds of antibiotics and felt great after each but it just came back. Myface has the worse than normal sinus pain in the forehead, checks and myears are plugged. I am not running a fever and my throat is only soarafter I take the nose spray prescribed by the urgent care (along withsteroids, which did help a little). Humidity seems to cause the breathingto struggle. Having the heat/ac on in my apartment seems to causeproblems. I wake up in the morning feeling okay until I start doing stuffthen the head pressure starts and taking a deep breath is problematic. Doroteo gaining weight and I can smell ok, mostly. Sometimes my nostrils feelswollen as does my throat. I did a mold test in my apartment but it didnot look so very good in my living area. I would like to be tested, julio case, for mold allergies but I think I need to have a referral forthat. I am so tired of being sick and struggling to take a deep breath.Can I get a referral or an appointment to talk about a referral? Pt was referred to ENT, then sent follow up message below from 02/10: I went to the ENT clinic where she looked at my nose, throat and ears andlistened to my lungs and said she saw nothing but slight swelling in thenostrils. Still having trouble with breathing over the weekend and I'mkind of done with this. I asked a [facility] doctor over the weekend. Basedon what I told her, she prescribed an inhaler which does seem to behelping. But she also suggested that I needed to get a full heart andpulmonary checkup including CT scan, I am assuming of the lungs. Theinhaler is helping. Yesterday my breathing was pretty good and I hadenergy. Today, after closing the window and using the heat in myapartment, the inhaler is not quite as good which is making me thinkallergies - perhaps asthma brought on by allergies? She mentionedemphysema, too, so of course I'm kind of freaking out. Anyway, I have an appointment to get the CT scan on my sinuses but want toknow if there is a place where I can go to get everything done and nothave to have separate appointments. Also, do I need to get a referral forthe heart and lung workup? Needed to have a complete physical anyway?! Doroteo working from home this week so if it's allergies, it won't be fun but Iwill not have access to my computer. Could you call me with a response? Started in the head, felt drainage coming down and going into her chset,two rounds of antibiotics. She felt good for a week She wonders if the COVID testing was a false negative Feels pretty good today Gets sinus stuff still, every day. Sinus issues are getting worse every year. Had been taking allergy medication, but stopped because it wasn't helping.Generic Claritin Yesterday had some more SOB, harder to take a deep breath. Was stressed atthat time. [place] better after stressful appoitnment. Had some point in center of chest, has been having left chest pain too. Wondering if she is allergic to her apartment. Freaked out by all of this. Medications: Current Outpatient Medications on File Prior to Visit Medication Sig Dispense Refill ? ? predniSONE (DELTASONE) 20 mg tablet TAKE 2 TABLETS BY MOUTH ONCE DAILYFOR 4 DAYS AND THEN 1 TABLET ONCE DAILY FOR 4 DAYS ? ? ipratropium bromide (ATROVENT) 42 mcg (0.06 %) [place], Non-Aerosol USE 1TO 2 SPRAY(S) IN EACH NOSTRIL THREE TIMES DAILY ? ? multivitamin (MULTIPLE VITAMINS DAILY ORAL) Take 6 Each by mouth daily.Gummy vitamins ? ? pseudoephedrine (SUDAFED) 30 mg tablet Take 60 mg by mouth every 4 hoursas needed. ? ? COLLAGEN MISC by Misc.(Non-Drug; Combo Route) route. ? ? [DISCONTINUED] albuterol HFA 90 mcg inhaler Take 2 Puffs by inhalationevery 4 hours as needed. ? ? dextromethorphan-guaiFENesin (MUCINEX DM) 30-600 mg Tablet SustainedRelease 12HR Take 1 Tablet by mouth every 12 hours. ? ? cyanocobalamin (VITAMIN B-12) 250 mcg Tablet Take 250 mcg by mouthdaily. ? ? tamoxifen (NOLVADEX) 20 mg tablet Take 1 Tablet (20 mg) by mouth daily.90 Tablet 4 ? ? TURMERIC ORAL Take by mouth. No current facility-administered medications on file prior to visit. Review of Systems Constitutional: Positive for malaise/fatigue. Negative for chills, feverand weight loss. HENT: Negative for ear discharge, ear pain and nosebleeds. Eyes: Negative for double vision, photophobia, pain and discharge. Respiratory: Positive for shortness of breath. Negative for cough, sputumproduction and wheezing. Cardiovascular: Positive for chest pain. Negative for palpitations,orthopnea and leg swelling. Gastrointestinal: Negative for abdominal pain, blood in stool, nausea andvomiting. Genitourinary: Negative for dysuria and hematuria. Musculoskeletal: Negative for joint pain, myalgias and neck pain. Skin: Negative for rash. Neurological: Positive for headaches. Negative for dizziness, tingling,sensory change, speech change and focal weakness. Endo/Heme/Allergies: Does not bruise/bleed easily. Psychiatric/Behavioral: Negative for depression and substance abuse. Thepatient is not nervous/anxious. Objective: Physical Exam Constitutional: She is oriented to person, place, and time andwell-developed, well-nourished, and in no distress. No distress. HENT: Head: Normocephalic and atraumatic. Right Ear: Hearing and external ear normal. Left Ear: Hearing and external ear normal. Eyes: Conjunctivae are normal. Right eye exhibits no discharge. Left eyeexhibits no discharge. Neck: Neck supple. No tracheal deviation present. Cardiovascular: Normal rate, normal heart sounds and intact distal pulses.Exam reveals no friction rub. No murmur heard. Pulmonary/Chest: Effort normal and breath sounds normal. No respiratorydistress. She has no wheezes. She has no rales. Abdominal: Soft. Bowel sounds are normal. She exhibits no distension. Musculoskeletal: Normal range of motion. General: No tenderness, deformity or edema. Neurological: She is alert and oriented to person, place, and time. Nocranial nerve deficit. She exhibits normal muscle tone. Gait normal.Coordination normal. GCS score is 15. Skin: Skin is warm and dry. No rash noted. She is not diaphoretic. Noerythema. Psychiatric: Memory, affect and judgment normal. Her mood appears anxious.She does not exhibit a depressed mood. She expresses no homicidal and nosuicidal ideation. She expresses no suicidal plans and no homicidal plans. EKG 12-LEAD Date/Time: 02/15/2020 4:28 PM Performed by: Almita Smallwood MD Authorized by: Almita Smallwood MD Comparison: not compared with previous ECG Previous ECG: no previous ECG available Rhythm: sinus rhythm Rate: normal QRS axis: normal Conduction: conduction normal ST Segments: ST segments normal Other: no other findings Clinical impression: normal ECG Assessment and Plan: ICD-10-CM ICD-9-CM 1. Dyspnea on exertion R06.[address] CHEST W CONTRAST TSH REFLEXIVE CBC WITH DIFFERENTIAL COMPREHENSIVE METABOLIC PANEL albuterol HFA 90 mcg inhaler TSH REFLEXIVE CBC WITH DIFFERENTIAL COMPREHENSIVE METABOLIC PANEL 2. Shortness of breath R06.[address] CHEST W CONTRAST albuterol HFA 90 mcg inhaler 3. Fatigue, unspecified type R53.83 780.79 TSH REFLEXIVE VITAMIN B12 LEVEL CBC WITH DIFFERENTIAL COMPREHENSIVE METABOLIC PANEL TSH REFLEXIVE VITAMIN B12 LEVEL CBC WITH DIFFERENTIAL COMPREHENSIVE METABOLIC PANEL 4. Encounter for screening mammogram for malignant neoplasm of sklocrW27.31 V76.12 MAMMO SCRN BILAT 3D RUTH W OR WO CAD 5. History of ductal carcinoma in situ (DCIS) of breast Z86.000 V13.89MAMMO SCRN BILAT 3D RUTH W OR WO CAD 6. Encounter for vitamin deficiency screening Z13.21 V77.99 VITAMIN D 25HYDROXY VITAMIN D 25 HYDROXY 7. Chest pain, unspecified type R07.9 786.50 EKG 12-LEAD ECHO STRESS TEST EXERCISE 8. 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 breast D05.12 233.0 AMBREFERRAL TO ONCOLOGY Patient has had several different symptoms recently including HUBBARD, sinusdrainage, SOB, CABRALES, chest pain She does notice breathing is worse when windows are open and albuteroldoes help some. Could be allergy induced asthma Also cannot rule out false negative on prior COVID testing with residualpost COVID symptoms, although unlikely as she has been tested for COVIDmultiple times Broad differential including pulmonary, cardiac etiologies. Given historyof malignancy, persistent CABRALES/SOB despite negative CXR, recommend CT Chestw/ contrast Check labs as above EKG in office non ischemic, but given risk factors and symptoms, recommendchecking stress test as above given chest pain. Overdue for mammogram, doesn't want to go back to previous oncologist.Needs to reestablish with new oncologist, referral provided. Patientaware. Follow up - Dependent on results and clinical course Tobacco Intervention She is not a tobacco user. Depression Screen Positive: PHQ-2 score >= 3 or PHQ-9 score >= 9 PHQ-2 Total: 2 (02/15/2020 3:00 PM) PHQ-9 Total: 7 (02/15/2020 3:00 PM) DEPRESSION PLAN OF CARE Her depression screen was normal Blood Pressure BP Readings from Last 3 Encounters: 02/15/20 132/76 03/22/19 118/72 03/19/19 124/76 Pre-hypertensive BP reading systolic between 120 to 139 or diastolicbetween 80 to 89 and no diagnosis of hypertension. Patient instructed torecheck blood pressure within one year; discussed lifestyle changesincluding weight loss, reducing sodium intake, and increasing physicalactivity for blood pressure control.. BMI PLAN OF CARE Normal BMI ranges: 18-64 yrs: > or = 18.5 and < 25 65 yrs and older: > or = 23 and <30 Body mass index is 24.74 kg/m??. BMI within normal limits Almita Smallwood MD [facility] Internal Medicine- [facility] Almita Smallwood MD ECG ORDERABLES [facility] CLIA #[id number] [address] [place] [address], documented in this encounter Visit Diagnoses Diagnosis Dyspnea on exertion- Primary Other dyspnea and respiratory abnormality Shortness of breath Fatigue, unspecified type Encounter for screening mammogram for malignant neoplasm of breast Other screening mammogram History of ductal carcinoma in situ (DCIS) of breast Encounter for vitamin deficiency screening Screening for other and unspecified endocrine, nutritional, metabolic, and immunity disorders Chest pain, unspecified type 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 breast Dyspnea on exertion Other dyspnea and respiratory abnormality Shortness of breath Chest pain, unspecified type documented in this encounter Additional Health Concerns Assessment Noted Time PHQ-9 Depression Total Score: 2 02/15/20 20 3:00 PM CDT documented as of this encounter Care Teams Phone Circuit Operator Relationship Specialty Start Date End Date Almita Smallwood MD [address] [place] [address] PCP - General Internal Medicine 03/14/18 documented as of this encounter
--- OUTSIDE RECORDS SUMMARY | 2024-04-21 12:27 | XMS_ITS | Encounter Summary ---
Author Organization [facility] Address [address] [place] [address] Care Team Providers Care Weaving Loom Operator Name Role Phone Almita Smallwood MD Primary Care Provider + Encounter Details Date Type Department Care Team (Late st Contact Info) Description 06/13/2019 Orders Only [facility] Internal Medicine - [facility] [address] [place] [id number] Almita Smallwood MD [address] [place] [address] Chronic anemia Social History Tobacco Use Types Packs/Day [...] of this encounter Visit Diagnoses Diagnosis Chronic anemia Anemia, unspecified documented in this encounter Care Teams Weaving Loom Operator Relationship Specialty Start Date End Date Almita Smallwood MD [address] [place] [address] PCP - General Internal Medicine 03/14/18 documented as of this encounter
--- OUTSIDE RECORDS SUMMARY | 2024-04-21 12:27 | XMS_ITS | Encounter Summary ---
Author Organization [facility] Address [address] [place] [address] Care Team Providers Care Deputy Grand Jury Name Role Phone Almita Smallwood MD Primary Care Provider + Reason for Referral * Radiology Services (Routine) - Closed Specialty Diagnoses / Procedures Referred By Tati campos Referred To Contact Radiology Diagnoses Liver hemangioma Procedures US ABDOMEN LIMITED US ABDOMEN COMPLETE Almita Smallwood MD [address] [place] [address] [facility] Ultrasound [address] [place] [address] Referral ID Status Reason Start Date Expiration Date V isits Requested Visits Authorized [id number] Closed [facility] CTS 02/22/2020 03/24/2021 1 1 NING FRAME FIXER Reason for Visit * Reason Onset Date Comments Results 02/22/2020 Encounter Details Date Type Department Care Team (Late st Contact Info) Description 02/22/[address] [facility] Internal Medicine - [facility] [address] [place] [address] Almita Smallwood MD [address] [place] [address] Results Social History Tobacco Use [...] COVID-19? No / Unsure 02/21/2020 9:18 AM SPINNING FRAME FIXER documented as of this encounter Miscellaneous Notes * Telephone Encounter - Christin Leary RN - 02/22/2020 3:08 PM CST Please prescribe both Xyzal (in case she can't find it) and azelastine nasal spray E-prescribed scripts to Pharmacy per Dr Smallwood's orders.Pt aware.Dr Smallwood aware. NING FRAME FIXER * Telephone Encounter - Christin Leary RN - 02/22/2020 3:08 PM CST ----- Message from Almita Smallwood MD sent at 02/22/2020 3:04 PM SPINNING FRAME FIXER ----- Regarding: RE: Visit Follow-Up Question Contact: Please prescribe both Xyzal (in case she can't find it) and azelastine nasal spray ----- Message ----- From: Christin Leary RN Sent: 02/22/2020 2:57 PM SPINNING FRAME FIXER To: Almita Smallwood MD Subject: FW: Visit Follow-Up Question ----- Message ----- From: Lisa Hermosillo Sent: 02/22/2020 2:51 PM SPINNING FRAME FIXER To: [facility] Nurse Subject: RE: Visit Follow-Up Question Can we try the prescription nose spray, please? The stuff that the [facility] doctor prescribed seemsreally harsh and does very little to help. Xyzal OTC is over the counter, I am presuming so I will get some of that to try. Thanks a bunch! NING FRAME FIXER * Telephone Encounter - Christin Leary RN - 02/22/2020 2:48 PM CST ----- Message from Almita Smallwood MD sent at 02/21/2020 5:23 PM SPINNING FRAME FIXER ----- Please call patient with following results. CT shows mild emphysema, but nothing significant. Incidental cyst on back or subcutaneous nodule, we should look at that the next time she is in the office, looks benign on CT. Possible liver hemangioma (benign lesion), but would recommend liver US to confirm, please order. We will await stress test results. If stress test negative/normal, we may consider treatment for mild emphysema, but I am not convinced it is causing all of her symptoms. Pt aware of the above results.Pt aware Dr Smallwood wants pt to have US of liver.Pt aware of all the above results.Order placed and pt aware [facility] will schedule US of abd.Pt verbalizes understanding.Danielle aware. NING FRAME FIXER documented in this encounter Plan of Treatment Not on file documented as of this encounter Results * US ABDOMEN LIMITED (03/08/2020 9:52 AM SPINNING FRAME FIXER) Anatomical Region Laterality Modality Abdomen Ultrasound 03/08/2020 9:53 AM SPINNING FRAME FIXER Impressions 03/08/2020 10:12 AM SPINNING FRAME FIXER IMPRESSION: 1. ??Hemangioma within the lateral segment. DICTATION LOCATION: Location 2 - [facility] Narrative 03/08/2020 10:12 AM SPINNING FRAME FIXER US ABDOMEN LIMITED DATE: 03/08/2020 9:52 AM [...] Hemangioma within the lateral segment. DICTATION LOCATION: Location 2 [facility] Almita Smallwood MD ORDERABLES documented in this encounter Visit Diagnoses Diagnosis Liver hemangioma- Primary Hemangioma of intra-abdominal structures Liver hemangioma Hemangioma of intra-abdominal structures documented in this encounter Additional Health Concerns Assessment Noted Time PHQ-9 Depression Total Score: 2 02/14/ 20 3:00 PM CDT documented as of this encounter Care Teams Deputy Grand Jury Relationship Specialty Start Date End Date Almita Smallwood MD [address] [place] [address] PCP - General Internal Medicine 03/14/18 documented as of this encounter
--- OUTSIDE RECORDS SUMMARY | 2024-04-21 12:27 | XMS_ITS | Encounter Summary ---
Author Organization [facility] Address [address] [place] [address] Care Team Providers Care Sliver Former Name Role Phone Almita Smallwood MD Primary Care Provider + Encounter Details Date Type Department Care Team (Late st Contact Info) Description 08/15/2019 Digital Self COVID-1 9 Screening [facility] ABSTRACTION Provider, Abstract NO ADDRESS ON [...] have Coronavirus / COVID-19? No / Unsure 08/16/2019 2:54 PM CDT documented as of this encounter Plan of Treatment Not on file documented as of this encounter Visit Diagnoses Not on filedocumented in this encounter Care Teams Sliver Former Relationship Specialty Start Date End Date Almita Smallwood MD [address] [place] [address] PCP - General Internal Medicine 03/14/18 documented as of this encounter
--- OUTSIDE RECORDS SUMMARY | 2024-04-21 12:27 | XMS_ITS | Encounter Summary ---
Author Organization [facility] Address [address] [facility] Attn: Epic Prelude ADT [facility] [place] [address] Care Team Providers Care Fire Protection Fabricator Name Role Phone Almita Smallwood MD Primary Care Provider + Encounter Details Date Type Department Care Team (Latest Contact Info) Description 02/13/2020 Travel Social History Tobacco Use Types Packs/Day [...] have Coronavirus / COVID-19? No / Unsure 02/13/2020 8:05 AM CDT documented as of this encounter Plan of Treatment Not on file documented as of this encounter Visit Diagnoses Not on filedocumented in this encounter Care Teams Fire Protection Fabricator Relationship Specialty Start Date End Date Almita Smallwood MD [address] [place] [address] PCP - General Internal Medicine 03/14/18 documented as of this encounter
--- OUTSIDE RECORDS SUMMARY | 2024-04-21 12:27 | XMS_ITS | Encounter Summary ---
Author Organization [facility] Address [address] [place] [address] Care Team Providers Care Superintendent Water And Sewer Systems Name Role Phone Almita Smallwood MD Primary Care Provider + Reason for Visit * Reason Onset Date Comments Information 02/07/2020 Encounter Details Date Type Department Care Team ([facility] st Contact Info) Description 02/07/2020 Telephone [facility] Internal Medicine - [id number] [place] [address] Almita Smallwood MD [address] [place] [address] Information Social History Tobacco Use Types Packs/Day Years [...] Telephone Encounter - Christin Leary RN - 02/07/2020 1:30 PM CDT Who does shoe want a referral to? ENT? That is fine with me to refer to Critical access [facility] I don't have any openings as I am essentially gone tomorrow and Jennifer is out too. May need to see ENT on urgent basis Called pt and pt will go to [facility] on [address]Pt aware.Dr Smallwood aware. * Telephone Encounter - Christin Leary RN - 02/07/2020 1:30 PM CDT ----- Message from Almita Smallwood MD sent at 02/07/2020 1:05 PM CDT ----- Regarding: RE: Visit Follow-Up Question Contact: Who does natalio want a referral to? ENT? That is fine with me to refer to Critical access hospital I don't have any openings as I am essentially gone tomorrow and Jennifer is out too. May need to see ENT on urgent basis ----- Message ----- From: Christin Leary RN Sent: 02/07/2020 12:28 PM CDT To: Almita Smallwood MD Subject: FW: Visit Follow-Up Question ----- Message ----- From: Lisa Hermosillo Sent: 02/07/2020 12:17 PM CDT To: [facility] Nurse Subject: Visit Follow-Up Question Talon, I am still sick and have been tested for COVID twice both times coming back negative. I understand that I may still have had or have COVID but this has been going on since October. I went to urgent care as I was finding difficult to take a deep breath and my heart was racing and they said chestx-ray was clear and EKG was normal. I understand that these are unusual times but I am wondering ifthere isn't something else that is going on, other than COVID. I would hate to be dying of something else while everyone tells me that it's COVID. I have occasional good days where I feel like all iswell but it comes back the next day. I have had two rounds of antibiotics and felt great after eachbut it just came back. My face has the worse than normal sinus pain in the forehead, checks and my ears are plugged. I am not running a fever and my throat is only soar after I take the nose spray prescribed by the urgent care (along with steroids, which did help a little). Humidity seems to cause the breathing to struggle. Having the heat/ac on in my apartment seems to cause problems. I wake up in the morning feeling okay until I start doing stuff then the head pressure starts and taking a deep breath is problematic. I am gaining weight and I can smell ok, mostly. Sometimes my nostrils feel swollen as does my throat. I did a mold test in my apartment but it did not look so very good in my living area. I would like to be tested, just in case, for mold allergies but I think I need to have a referral for that. I am so tired of being sick and struggling to take a deep breath. Can I get a referral or an appointment to talk about a referral? I have new insurance with [facility]. Member ID is [id number]. Group No. [id number]. documented in this encounter Plan of Treatment Not on file documented as of this encounter Visit Diagnoses Not on filedocumented in this encounter Care Teams Superintendent Water And Sewer Systems Relationship Specialty Start Date End Date Almita Smallwood MD [address] [place] [address] PCP - General Internal Medicine 03/14/18 documented as of this encounter
--- OUTSIDE RECORDS SUMMARY | 2024-04-21 12:27 | XMS_ITS | Encounter Summary ---
Author Organization [facility] Address [address] [place] [address] Care Team Providers Care Cook Helper Meat Name Role Phone Almita Smallwood MD Primary Care Provider + Reason for Visit * Reason Onset Date Comments Information 02/25/2020 Encounter Details Date Type Department Care Team ([facility] st Contact Info) Description 02/25/[address] [facility] Internal Medicine - [facility] [address] [place] [address] Almita Smallwood MD [address] [place] [address] Information Social History Tobacco Use [...] COVID-19? No / Unsure 02/21/2020 9:18 AM MEDIATION COMMISSIONER documented as of this encounter Miscellaneous Notes * Telephone Encounter - Christin Leary RN - 02/25/2020 12:24 PM CST ----- Message from Almita Smallwood MD sent at 02/22/2020 3:37 PM MEDIATION COMMISSIONER ----- Please call patient with following results. Mammogram incomplete, need prior imaging to compare. Please help arrange for prior films to be madeavailable for radiologist to compare. [facility].Dr Smallwood aware. ATION COMMISSIONER documented in this encounter Plan of Treatment Not on file documented as of this encounter Visit Diagnoses Not on filedocumented in this encounter Additional Health Concerns Assessment Noted Time PHQ-9 Depression Total Score: 2 02/15/20 20 3:00 PM CDT documented as of this encounter Care Teams Cook Helper Meat Relationship Specialty Start Date End Date Almita Smallwood MD [address] [place] [address] PCP - General Internal Medicine 03/14/18 documented as of this encounter
--- OUTSIDE RECORDS SUMMARY | 2024-04-21 12:27 | XMS_ITS | Encounter Summary ---
Author Organization [facility] Address [address] [place] [address] Care Team Providers Care Incoming Freight Clerk Name Role Phone Almita Smallwood MD Primary Care Provider + Reason for Referral * CT Scan (Routine) - Closed Specialty Diagnoses / Procedures Referred By Tati campos Referred To Contact Radiology Diagnoses Dyspnea on exertion Shortness of breath Procedures CT CHEST W CONTRAST Almita Smallwood MD [address] [place] [address] Scan [address] [place] [address] Referral ID Status Reason Start Date Expiration Date V isits Requested Visits Authorized [id number] Closed [facility] CTS 02/20/2020 03/20/2020 1 1 GAGE ANALYST Reason for Visit * CT Scan (Routine) - Closed Specialty Diagnoses / Procedures Referred By Tati campos Referred To Contact Radiology Diagnoses Dyspnea on exertion Shortness of breath Procedures CT CHEST W CONTRAST Almita Smallwood MD [address] [place] [address] Scan [address] [place] [address] Referral ID Status Reason Start Date Expiration Date V isits Requested Visits Authorized [id number] Closed STL CTS 02/20/2020 03/20/2020 1 1 Encounter Details Date Type Department Care Team (Late st Contact Info) Description 02/21/2020 9:29 AM MORTGAGE ANALYST - 02/21/2020 11:59 PM MORTGAGE ANALYST Hospital Encounter [facility] CT Scan [address] [facility] [address] [place] [address] Almita Smallwood MD [address] [place] [address] Discharge Disposition: Home or Self [...] COVID-19? No / Unsure 02/21/2020 9:18 AM MORTGAGE ANALYST documented as of this encounter Medications at Time of Discharge Medication Sig Dispensed Refills Start Date End Date multivitamin (MULTIPLE VITAMINS DAILY ORAL) Take 2 Each by mouth daily. Gummy vitamins 06/04/2019 cyanocobalamin (VITAMIN B-12) 250 mcg Tablet Take 250 mcg by mouth daily. COLLAGEN MISC by Misc.(Non-Drug; Combo Route) route. TURMERIC ORAL Take by mouth. 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 90 Tablet 4 01/24/2019 02/22/2020 documented as of this encounter Progress Notes * Yanet Vásquez RN - 02/21/2020 9:40 AM CST IMAGING SERVICES- CT, MRI, and NUCLEAR MEDICINE MEDICATION and FLUSH PROTOCOL [facility] ORDERS ARE ENTERED ???PER PROTOCOL?? Enter the protocol in the patient???s electronic health record using Wortalphrase: .imagingmedflushprotocol Communication Orders: o For ordered imaging procedures requiring intravenous access : ??? Initiate a peripheral IV, if not already in place, and discontinue IV prior to discharge (if outpatient). ??? Enter order if needed: Insert Peripheral IV Medication Orders: o Local Anesthetic for use to initiate IV ADULT ??? Lidocaine 4% (L.M.X.4) applied topically ONE TIME prior to IV catheter insertion PRN (L.M.X.4 %should be applied 15 minutes prior to procedure) PEDIATRIC ??? Lidocaine 4% (L.M.X.4) applied topically ONE TIME prior to IV catheter insertion PRN (apply 15 minutes prior to procedure) ??? Sucrose 24% (Tootsweet; Sweet-Ease) oral solution, 0.2mL given orally prior to IV catheter insertion (administer 1 - 2 minutes prior to procedure) o Sodium chloride 0.9% (normal saline) flush 10 mLs PRN for saline lock or medication administration. o For respiratory distress, initiate oxygen and/or increase O2 to maintain saturation greater than 90% Procedure Specific Medications: o Cystogram (CT Pelvis): Iopamidol (Isovue 300) 61%, diluted with 270mL of sterile NS. Mix solution of Isovue and NS in a sterile bowl. Clamp patricio catheter prior to instilling solution via catheter. ??? Instill up to 300mL of Isovue and NS solution into bladder via catheter, one time. o Hepatobiliary scan with ejection fraction : For immediate use - Sincalide (Kinevac) 0.02 mcg/kg IV, one time, diluted with NS to a total infused volume of 30 mLs. Infuse via an infusion device over 30 minutes. o Thyroid cancer Thyrogen injections : Thyrotropin Timothy (Thyrogen) 0.9 mg deep IM every 24 hours for two doses. o Renal scan with Lasix : Furosemide (Lasix) 1 mg/kg one time IV push over 2 minutes. Maximum dose of 40mg. o Renal scan with Enalapril : Enalapril (Vasotec) 0.04 mg/kg (maxium of 2.5mg) IV one time IV. Dilute to 5mL total volume with normal saline and infuse via infusion device over 5 minutes. o Lymphoscintigraphy : ??? Tc99m(Technetcium 99) 0.2mL filtered sulfur colloid with 0.2mL lidocaine 1% and 0.6mL sodium chloride. Give 500uCi (0.5mL) subcutaneously, in divided doses, ONE TIME at specified site(s). ??? Lidocaine 4% (L.M.X.4) applied topically ONE TIME PRN to the site(s) of injection (L.M.X.4 % should be applied 15 minutes prior to procedure). CT ORAL CONTRAST PROTOCOLS FOR ADULTS ??? Use Iohexol (Omnipaque) 240 mg/mL for CT scan unless patient has a documented allergy to contrast dye. ??? If allergy present, use Barium Sulfate (EZ Paque or Vanilla SILQ) for procedure. ??? If at any time the Crab Meat Processor has a question about which option to administer, seek clarification from a Radiologist. o Iohexol (Omnipaque) 240 mg/mL: 50ml added to 960mL of clear liquid of patients choice. Preferred route is oral. May use nasoenteric tube if needed. ??? Administer 900mL of the diluted Omnipaque 240, orally, one time only. o Barium Sulfate (EZ Paque /Vanilla Silq) 96% oral suspension: Preferred route is oral. May use nasoenteric tube if needed. ??? Administer 900mL of barium sulfate, orally, one time only. CT ORAL CONTRAST PROTOCOLS FOR PEDIATRICS Pediatrics = up to age 18 o Pediatric Radiologist will approve of one of the following products selected for procedure. ??? Barium Sulfate (EZ Paque /Vanilla Silq) 96% oral suspension: preferred route is oral. May use nasoenteric tube if needed. to 3 months Administer up to 90mL of Barium Sulfate, orally, one time only 4 months to 1 year old Administer up to 240mL of Barium sulfate , Orally, One Time Only 1 year old to 5 years old Administer up to 360mL of Barium sulfate , Orally, One Time Only 5 years old to 10 years old Administer up to 480mL of Barium sulfate , Orally, One Time Only Over 10 years old Administer up to 600mL of Barium sulfate , Orally, One Time Only ??? Iohexol (Omnipaque) 240 mg/mL oral solution ??? Dilute 25mL of iohexol with 480mL of clear liquid of patient???s choice. Administer the dilutedsolution per age as follows: Preferred route is orally. May use nasoenteric tube if needed. ??? Send any remaining diluted Iohexol solution with the pateint???s nurse to CT [place] Administer 45mL of diluted Iohexol oral solution, orally every 30 minutes x 2 doses. 1 month to 1 year old Administer 120mL of diluted Iohexol oral solution, orally every 30 min x 2 doses. 1 year old to 5 years old Administer 180mL of Iohexol orally every 30 min x 2 doses. 5 years old to 10 years old Administer 240mL of Iohexol orally every 30 min x 2 doses. Over 10 years old Administer 300mL of Iohexol orally every 30 min x [address] IV CONTRAST PROTOCOLS ADULTS: (If patient is less than 55kg and confirm dose with radiologist) o Iopadmidol (Isovue-300): Administer 2.2mL/kg (to MAX of 125mL) of Iopamidol 61%, intravenously, one time only PEDIATRICS: Use weight based dosing if patient is less than 55kg and confirm dose with radiologist. to 15 years old Administer 2.2mL/kg (to MAX of 80 mL) of Iopamidol (Isovue-300) 61%, intravenously, one time only 15 years old and older Administer 2.2mL/kg (to MAX of 125mL) of Iopamidol (Isovue-300) 61%, intravenously, one time only MRI IV CONTRAST PROTOCOLS ADULTS: o Multihance is used for most MRIs. For Liver studies, contact Radiologist to determine use of one of the following: Gadobenate Dimeglumine (Multihance) (0.1mmol/0.2mL), Administer 0.1mmol/kg = 0.2mL/kg up to MAX of 30mL, intravenously, one time only OR Gadoxetate (Eovist) 2.5 mmol/10mL, Administer 0.025mmol/kg = 0.1mL/kg MAX of 15mL, intravenously, one time only PEDIATRICS: o Radiologist to determine need for contrast Term neonates up to 2 years: Gadobutrol (Gadavist) 1mmol/mL injection, Administer 0.1mmol/kg = 0.1mL/kg up to MAX of 14mmol = 14mL, intravenously, one time only 2 years and older Gadobenate Dimeglumine (Multihance) (0.1mmol/0.2mL), Administer 0.1mmol/kg = 0.2mL/kg up to MAX of 20mL, intravenously, one time only \ Initiating Department(s): 04/2013 Nuclear Medicine and Pharmacy Reviewed: 01/2014 ,08/2015, 08/2016; 11/2016 Revised: 01/2014, 05/2016, 08/2016; 11/2016 Approved by: Medical Executive Committee, Imaging Services, and Pharmacy & Therapeutics Committee Date: 11/2016 GAGE ANALYST documented in this encounter Miscellaneous Notes * Result Encounter Note - Almita Smallwood MD - 02/21/2020 9:40 AM MORTGAGE ANALYST Please call patient with following results. CT [...] it is causing all of her symptoms. GAGE ANALYST documented in this encounter Plan of Treatment Not on file documented as of this encounter Procedures Procedure Name Priority Date/Time Associated Diagnosis Comments CT CHEST W CONTRAST Routine 02/21/2020 1 0:40 AM MORTGAGE ANALYST Dyspnea on exertion Shortness of breath documented in this encounter Results * CT CHEST W CONTRAST (02/21/2020 10:40 AM MORTGAGE ANALYST) Anatomical Region Laterality Modality Chest Computed Tomogra phy 02/21/2020 10:4 2 AM MORTGAGE ANALYST Impressions 02/21/2020 3:28 PM MORTGAGE ANALYST IMPRESSION: No acute cardiopulmonary process. Mild lung emphysema. Possible left hepatic lobe 1 cm hemangioma, not well characterized on this exam. Upper back subcutaneous nodule likely representing sebaceous cyst. Correlate clinically. DICTATION LOCATION: Location [address] [place] [address] The examination was performed with the adjustment of mA according to the patient size and/or the use of Iterative Reconstruction Technique. Narrative 02/21/2020 3:[address] OF THE CHEST WITH INTRAVENOUS CONTRAST [...] sebaceous cyst. Correlate clinically. DICTATION LOCATION: Location [address] [place] [address] The examination was performed with the adjustment of mA according to the patient size and/or the use of Iterative Reconstruction Technique. Almita Smallwood MD CT ORDERABLES documented in this encounter Visit Diagnoses Diagnosis Dyspnea on exertion Other dyspnea and respiratory abnormality Shortness of breath documented in this encounter Administered Medications Inactive Administered Medications - up to 3 most recent administrations Medication Order MAR Action Action Date Dose Rate Site iopamidoL (ISOVUE-300) 61 % injection (drawn from multi-use bulk pack) 90 mL 90 mL, IV, INTRA-PROCEDURE ONCE, 1 dose, Starting on Kathleen 02/21/20 at 1007, Until Kathleen 02/21/20 at 1041, Routine Contrast Given 02/21/2020 10:41 AM MORTGAGE ANALYST 90 mL sodium chloride flush injection 10 mL 10 mL, IV, ONE TIME ONLY, 1 dose, On Kathleen 02/21/20 at 1015, Routine Given 02/21/2020 10:19 AM MORTGAGE ANALYST 10 mL sodium chloride flush injection 10 mL 10 mL, IV, SEE ADMIN INSTRUCTIONS, Starting on Kathleen 02/21/20 at 1013, Until 02/22/20 at 0312, Routine Given 02/21/2020 10:41 AM MORTGAGE ANALYST 10 mL documented in this encounter Additional Health Concerns Assessment Noted Time PHQ-9 Depression Total Score: 2 02/15/20 20 3:00 PM CDT documented as of this encounter Care Teams Incoming Freight Clerk Relationship Specialty Start Date End Date Almita Smallwood MD [address] [place] [address] PCP - General Internal Medicine 03/14/18 documented as of this encounter
--- OUTSIDE RECORDS SUMMARY | 2024-04-21 12:27 | XMS_ITS | Encounter Summary ---
Author Organization [facility] Address [address] [facility] Attn: [place] [address] Care Team Providers Care Plate Worker Helper Name Role Phone Almita Smallwood MD Primary Care Provider + Encounter Details Date Type Department Care Team (Latest Contact Info) Description 02/20/2020 Travel Social History Tobacco Use Types Packs/Day [...] have Coronavirus / COVID-19? No / Unsure 02/20/2020 10:32 AM DEHYDRATOR TENDER documented as of this encounter Plan of Treatment Not on file documented as of this encounter Visit Diagnoses Not on filedocumented in this encounter Additional Health Concerns Assessment Noted Time PHQ-9 Depression Total Score: 2 02/15/20 20 3:00 PM CDT documented as of this encounter Care Teams Plate Worker Helper Relationship Specialty Start Date End Date Almita Smallwood MD [address] [place] [address] PCP - General Internal Medicine 03/14/18 documented as of this encounter
--- OUTSIDE RECORDS SUMMARY | 2024-04-21 12:27 | XMS_ITS | Encounter Summary ---
Author Organization [facility] Address [address] [place] [address] Care Team Providers Care Feather Shaper Name Role Phone Almita Smallwood MD Primary [...] on filedocumented in this encounter Care Teams Feather Shaper Relationship Specialty Start Date End Date Almita Smallwood MD [address] [place] [address] PCP - General Internal Medicine 03/14/18 documented as of this encounter
--- OUTSIDE RECORDS SUMMARY | 2024-04-21 12:27 | XMS_ITS | Encounter Summary ---
Author Organization [facility] Address [address] [place] [address] Care Team Providers Care Professor Of Special Education Name Role Phone Almita Smallwood MD Primary Care Provider + Encounter Details Date Type Department Care Team (Late st Contact Info) Description 08/16/2019 E-Visit [facility] Internal Medicine [facility] [address] [place] [address] Almita Smallwood MD [address] [place] [address] E-Visit Submission: Cough / Sinus Social History Tobacco Use Types Packs/Day Years [...] as of this encounter Visit Diagnoses Diagnosis ERRONEOUS ENCOUNTER--DISREGARD- Primary documented in this encounter Care Teams Professor Of Special Education Relationship Specialty Start Date End Date Almita Smallwood MD [address] [place] [address] PCP - General Internal Medicine 03/14/18 documented as of this encounter
--- OUTSIDE RECORDS SUMMARY | 2024-04-21 12:27 | XMS_ITS | Encounter Summary ---
Author Organization [facility] Address [address] [place] [address] Care Team Providers Care Hand Violin Maker Name Role Phone Almita Smallwood MD Primary Care Provider + Reason for Visit * Reason Onset Date Comments Result Note 02/22/2020 Encounter Details Date Type Department Care Team ([facility] st Contact Info) Description 02/22/2020 Telephone [facility] Internal Medicine - [facility] [address] [place] [address] Almita Smallwood MD [address] [place] [address] Result Note Social History Tobacco Use Types Packs/Day Years [...] COVID-19? No / Unsure 02/21/2020 9:18 AM CURRICULUM AND ASSESSMENT COORDINATOR documented as of this encounter Miscellaneous Notes * Telephone Encounter - Aarti De La Fuente - 02/22/2020 4:00 PM CST Spoke with patient, she will reach out to get her prior films sent to the [facility] radiologist. She verbalized understanding and had no questions at this time. ICULUM AND ASSESSMENT COORDINATOR * Telephone Encounter - Aarti De La Fuente - 02/22/2020 3:57 PM CST ----- Message from Almita Smallwood MD sent at 02/22/2020 3:37 PM CURRICULUM AND ASSESSMENT COORDINATOR ----- Please call patient with following results. Mammogram incomplete, need prior imaging to compare. Please help arrange for prior films to be madeavailable for radiologist to compare. ICULUM AND ASSESSMENT COORDINATOR documented in this encounter Plan of Treatment Not on file documented as of this encounter Visit Diagnoses Not on filedocumented in this encounter Additional Health Concerns Assessment Noted Time PHQ-9 Depression Total Score: 2 02/15/20 20 3:00 PM CDT documented as of this encounter Care Teams Hand Violin Maker Relationship Specialty Start Date End Date Almita Smallwood MD [address] [place] [address] PCP - General Internal Medicine 03/14/18 documented as of this encounter
--- OUTSIDE RECORDS SUMMARY | 2024-04-21 12:27 | XMS_ITS | Encounter Summary ---
Author Organization [facility] Address [address] [place] [address] Care Team Providers Care Curator Medical Museum Name Role Phone Almita Smallwood MD Primary Care Provider + Reason for Referral * Radiology Services (Routine) - Closed Specialty Diagnoses / Procedures Referred By Tati campos Referred To Contact Cardiology Diagnoses Chest pain, unspecified type Procedures ECHO STRESS TEST EXERCISE Almita Smallwood MD [address] [place] [address] [facility] Nuclear Cardiology [address] [place] [address] Referral ID Status Reason Start Date Expiration Date V isits Requested Visits Authorized [id number] Closed STL CTS 02/25/2020 03/25/2020 1 1 ENT CLERICAL ASSISTANT Reason for Visit * Radiology Services (Routine) - Closed Specialty Diagnoses / Procedures Referred By Tati campos Referred To Contact Cardiology Diagnoses Chest pain, unspecified type Procedures ECHO STRESS TEST EXERCISE Almita Smallwood MD [address] [place] [address] [facility] Nuclear Cardiology [address] [place] [address] Referral ID Status Reason Start Date Expiration Date V isits Requested Visits Authorized [id number] Closed STL CTS 02/25/2020 03/25/2020 1 1 Encounter Details Date Type Department Care Team (Late st Contact Info) Description 02/28/2020 8:00 AM PATIENT CLERICAL ASSISTANT - 02/28/2020 11:59 PM PATIENT CLERICAL ASSISTANT Hospital Encounter [facility] Nuclear Medicine [address] [place] [address] Almita Smallwood MD [address] [place] [address] Discharge Disposition: Home or Self [...] COVID-19? No / Unsure 02/28/2020 7:54 AM PATIENT CLERICAL ASSISTANT documented as of this encounter Medications [...] Encounter Note - Almita Smallwood MD - 02/28/2020 8:00 AM PATIENT CLERICAL ASSISTANT Please call patient with following results. Stress test normal. ENT CLERICAL ASSISTANT documented in this encounter Plan of Treatment Not on file documented as of this encounter Procedures Procedure Name Priority Date/Time Associated Diagnosis Comments ECHO STRESS TEST EXERCISE Routine 02/28/2020 8:52 AM PATIENT CLERICAL ASSISTANT Chest pain, unspecified type documented in this encounter Results * ECHO STRESS TEST EXERCISE (02/28/2020 8:52 AM PATIENT CLERICAL ASSISTANT) EJECTION FRACTION INTERFACE SYSTEM 02/28/2020 8:20 AM PATIENT CLERICAL ASSISTANT Narrative INTERFACE SYSTEM - 02/28/2020 9:08 AM PATIENT CLERICAL ASSISTANT -- [address] [address] [email or web address] Stress Echocardiography Tato Protocol -- Patient: ?Lisa Hermosillo MRN: ?[id number] Study ID: ? [id number] Gender: ? F : ?1960 Age: ?60 Race: ? CAU Height Study Date: ? 02/28/2020 Weight: Access. #: ?[id number] Account #: ?[id number] BP: -- -- *Referring Physician:* Almita Smallwood Catherine Louise *Ordering Physician:* ??Almita Smallwood Broomcorn Seeder: card game operator: Nurse: -- Indications: Chest pain. STUDY CONCLUSIONS: [...] peak heart rate and blood pressure was 61007ce Hg/min. ??The patient experienced no chest pain [...] AM. ??Prepared and Electronically Authenticated Benjy Chaudhari [id number] Procedure Note Benjy Chaudhari MD - 02/28/2020 -- [address] [place] [address] [email or web address] -- Stress Echocardiography Tato Protocol -- Patient: Lisa Hermosillo Study ID: [id number] Gender: F : 1960 Age: 60 Race: DEEJAY Height Study Date: 02/28/2020 Weight: Access. #: [id number] BP: -- -- *Referring Physician:Almita Cabrera Catherine Louise *Ordering Physician:Almita Cabrera Broomcorn Seeder: card game operator: Nurse: -- Indications: Chest pain. STUDY CONCLUSIONS: [...] peak heart rate and blood pressure was 53991wg Hg/min.The patient experienced no chest pain during [...] 08:20AM. Prepared and Electronically Authenticated Benjy Chaudhari [id number] Almita Smallwood MD ORDERABLES INTERFACE SYSTEM Refer to clinic/hospital department documented in this encounter Visit Diagnoses Diagnosis Chest pain, unspecified type documented in this encounter Additional Health Concerns Assessment Noted Time PHQ-9 Depression Total Score: 2 02/15/20 20 3:00 PM CDT documented as of this encounter Care Teams Curator Medical Museum Relationship Specialty Start Date End Date Almita Smallwood MD [address] [place] [address] PCP - General Internal Medicine 03/14/18 documented as of this encounter
--- OUTSIDE RECORDS SUMMARY | 2024-04-21 12:27 | XMS_ITS | Encounter Summary ---
Author Organization [facility] Address [address] [place] [address] Care Team Providers Care Toll Line Inspector Name Role Phone Almita Smallwood MD Primary Care Provider + Reason for Visit * Reason Onset Date Comments Results 02/18/2020 Encounter Details Date Type Department Care Team ([facility] Contact Info) Description 02/18/2020 Telephone [facility] ONCOLOGY AND HEMATOLOGY-[address] [address] Almita Smallwood MD [address] [place] [address] Results Social History Tobacco Use [...] encounter Miscellaneous Notes * Telephone Encounter - Bev Acosta RN - 02/18/2020 1:43 PM CST Please call patient with following results. Labs [...] work to explain symptoms, will await imaging Pt aware of above and states understanding. H POLISHER * Telephone Encounter - Bev Acosta RN - 02/18/2020 1:43 PM CST ----- Message from Almita Smallwood MD sent at 02/18/2020 12:55 PM BRUSH POLISHER ----- Please call patient with following results. Labs [...] work to explain symptoms, will await imaging H POLISHER documented in this encounter Plan of Treatment Not on file documented as of this encounter Visit Diagnoses Not on filedocumented in this encounter Additional Health Concerns Assessment Noted Time PHQ-9 Depression Total Score: 2 02/15/20 20 3:00 PM CDT documented as of this encounter Care Teams Toll Line Inspector Relationship Specialty Start Date End Date Almita Smallwood MD [address] [place] [address] PCP - General Internal Medicine 03/14/18 documented as of this encounter
--- OUTSIDE RECORDS SUMMARY | 2024-04-21 12:27 | XMS_ITS | Encounter Summary ---
Author Organization [facility] Address [address] [place] [address] Care Team Providers Care Hydrator Operator Name Role Phone Almita Smallwood MD Primary Care Provider + Encounter Details Date Type Department Care Team (Late st Contact Info) Description 06/13/2019 Orders Only [facility] Oncology and Hematology - [place] [address] [facility] [address] [place] [address] Jacek Laura MD [address] [facility] [address] [place] [address] 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 [...] breast documented in this encounter Care Teams Hydrator Operator Relationship Specialty Start Date End Date Almita Smallwood MD [address] [place] [address] PCP - General Internal Medicine 03/14/18 documented as of this encounter
--- OUTSIDE RECORDS SUMMARY | 2024-04-21 12:27 | XMS_ITS | Encounter Summary ---
Author Organization [facility] Address [address] [place] [address] Care Team Providers Care Wastewater Superintendent Name Role Phone Almita Smallwood MD Primary Care Provider + Reason for Visit * Radiology Services (Routine) - Closed Specialty Diagnoses / Procedures Referred By Contac t Referred To Contact Radiology Diagnoses Encounter for screening mammogram for malignant neoplasm of breast History of ductal carcinoma in situ (DCIS) of breast Procedures MAMMO SCRN BILAT 3D RUTH W OR WO CAD MAMMO SCRN UNI RT 3D RUTH W OR WO CAD MAMMO DIAG UNI RIGHT 3D RUTH W OR WO CAD MAMMO SCRN BILAT 3D RUTH W OR WO CAD CHG SCREENING MAMMOGRAPHY BI 2-VIEW BREAST INC CAD CHG SCREENING DIGITAL BREAST TOMOSYNTHESIS BI CHG DIAGNOSTIC MAMMOGRAPHY COMPUTER-AIDED DETCJ UNI CHG DIGITAL BREAST TOMOSYNTHESIS UNILATERAL CHG SCREENING MAMMOGRAPHY BI 2-VIEW BREAST INC CAD CHG SCREENING DIGITAL BREAST TOMOSYNTHESIS BI CHG SCREENING MAMMOGRAPHY BI 2-VIEW BREAST INC CAD CHG SCREENING DIGITAL BREAST TOMOSYNTHESIS BI Almita Smallwood MD [address] [place] [address] [facility] [address] [place] [address] Referral ID Status Reason Start Date Expiration Date V isits Requested Visits Authorized [id number] Closed STL CTS 02/15/2020 03/17/2021 1 1 Encounter Details Date Type Department Care Team (Late st Contact Info) Description 02/21/2020 12:50 PM FRACTIONATION SUPERVISOR - 02/21/2020 11:59 PM FRACTIONATION SUPERVISOR Hospital Encounter [facility] [address] [place] [address] Almita Smallwood MD [address] [place] [address] Discharge Disposition: Home or Self [...] COVID-19? No / Unsure 02/21/2020 9:18 AM FRACTIONATION SUPERVISOR documented as of this encounter Medications [...] 01/24/2019 02/22/2020 documented as of this encounter Plan of Treatment Not on file documented as of this encounter Procedures Procedure Name Priority Date/Time Associated Diagnosis Comments MAMMO 3D RUTH SCREEN BILAT W OR WO CAD Routine 02/21/2020 1:07 PM FRACTIONATION SUPERVISOR Encounter for screening mammogram for malignant neoplasm of breast History of ductal carcinoma in situ (DCIS) of breast documented in this encounter Results * MAMMO SCRN BILAT 3D RUTH W OR WO CAD (02/21/2020 1:07 PM FRACTIONATION SUPERVISOR) Anatomical Region Laterality Modality Breast Bilateral Mammography 02/21/2020 1:07 PM FRACTIONATION SUPERVISOR Addenda Addendum by Fiorella Hancock MD on 03/05/2020 7:28 AM FRACTIONATION SUPERVISOR Comparison is now made with previous films from [facility] [place] dated 09/21/2016. There are post biopsy changes on the right. There are postlumpectomy changes in the upper outer left breast. There are no other significant interval changes. Recommend annual follow-up. OVERALL FINAL ASSESSMENT: ??BI-RADS CATEGORY 1: ??Negative. Impressions 02/21/2020 5:08 PM FRACTIONATION SUPERVISOR IMPRESSION: [facility] will request the patient's previous outside studies in order to assess for stability. An addendum will be provided after reviewing the outside exams. DICTATION LOCATION: [facility] Narrative 02/21/2020 5:08 PM FRACTIONATION SUPERVISOR BILATERAL FULL-FIELD DIGITAL SCREENING MAMMOGRAM WITH CAD [...] Incomplete, needs comparison to prior mammograms. IMPRESSION: [facility] will request the patient's previous outside studies in order to assess for stability. An addendum will be provided after reviewing the outside exams. DICTATION LOCATION: [facility] Almita Smallwood MD MAMMO ORDERABLES documented in this encounter Visit Diagnoses Diagnosis Encounter for screening mammogram for malignant neoplasm of breast Other screening mammogram History of ductal carcinoma in situ (DCIS) of breast documented in this encounter Additional Health Concerns Assessment Noted Time PHQ-9 Depression Total Score: 2 02/15/20 20 3:00 PM CDT documented as of this encounter Care Teams Wastewater Superintendent Relationship Specialty Start Date End Date Almita Smallwood MD [address] [place] [address] PCP - General Internal Medicine 03/14/18 documented as of this encounter
--- OUTSIDE RECORDS SUMMARY | 2024-04-21 12:27 | XMS_ITS | Encounter Summary ---
Author Organization [facility] [employer] [facility] Address [address] [place] [address] Care Team Providers Care Sprinkler Helper Name Role Phone Almita Smallwood MD Primary Care Provider + Encounter Details Date Type Department Care Team (Late st Contact Info) Description 03/22/2019 Orders Only [facility] Oncology and Hematology - [place] [address] [facility] [address] [place] [address] Jacek Laura MD [address] [facility] [address] [place] [address] 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 breast; Mild anemia Social History Tobacco Use Types Packs/Day [...] Procedure Name Priority Date/Time Associated Diagnosis Comments VITAMIN B12 AND FOLATE Routine 03/22/2019 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 breast Mild anemia IRON, TIBC, AND PERCENT SATURATION Routine 03/22/2019 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 breast Mild anemia documented in this encounter Results * VITAMIN B12 AND FOLATE (03/22/2019) Blood Jacek Laura MD CHEMISTRY ORDERABLES NON [facility] * IRON, TIBC, AND PERCENT SATURATION (03/22/2019) Blood Jacek Laura MD CHEMISTRY ORDERABLES NON [facility] documented in this encounter Visit Diagnoses Diagnosis 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 breast Mild anemia Anemia, unspecified documented in this encounter Care Teams Sprinkler Helper Relationship Specialty Start Date End Date Almita Smallwood MD [address] [place] [address] PCP - General Internal Medicine 03/14/18 documented as of this encounter
--- OUTSIDE RECORDS SUMMARY | 2024-04-21 12:27 | XMS_ITS | Encounter Summary ---
Author Organization [facility] Address [address] [place] [address] Care Team Providers Care Refinery Superintendent Name Role Phone Almita Smallwood MD Primary Care Provider + Reason for Visit * Reason Onset Date Comments Results 02/18/2020 Encounter Details Date Type Department Care Team ([facility] st Contact Info) Description 02/18/2020 Telephone [facility] ONCOLOGY AND HEMATOLOGY-[address] [address] Almita Smallwood MD [address] [place] [address] Results Social History Tobacco Use [...] Encounter - Bev Acosta RN - 02/18/2020 1:28 PM CST LM to call office for results RAFT ACCESSORIES MECHANIC * Telephone Encounter - Bev Acosta RN - 02/18/2020 1:28 PM CST ----- Message from Almita Smallwood MD sent at 02/18/2020 12:55 PM AIRCRAFT ACCESSORIES MECHANIC ----- Please call patient with following results. [...] work to explain symptoms, will await imaging RAFT ACCESSORIES MECHANIC documented in this encounter Plan of Treatment Not on file documented as of this encounter Visit Diagnoses Not on filedocumented in this encounter Additional Health Concerns Assessment Noted Time PHQ-9 Depression Total Score: 2 02/15/20 20 3:00 PM CDT documented as of this encounter Care Teams Refinery Superintendent Relationship Specialty Start Date End Date Almita Smallwood MD [address] [place] [address] PCP - General Internal Medicine 03/14/18 documented as of this encounter
--- OUTSIDE RECORDS SUMMARY | 2024-04-21 12:27 | XMS_ITS | Encounter Summary ---
Author Organization [facility] Address [address] [place] [address] Care Team Providers Care Pathology Laboratory Aides Teacher Name Role Phone Almita Smallwood MD Primary Care Provider + Reason for Visit * Reason Onset Date Comments Needs Orders Written 03/22/2019 Encounter Details Date Type Department Care Team (Late st Contact Info) Description 03/22/2019 Telephone [facility] Oncology and Hematology - [place] [address] [facility] [address] [place] [address] Jacek Laura MD [address] [facility] [address] [place] [address] Needs Orders Written Social History Tobacco Use Types Packs/Day Years [...] Type Priority Associated Diagnoses Orde r Schedule FERRITIN Lab Routine 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 breast Mild anemia Expected: 03/22/2019, Expires: 03/22/2020 documented as of this encounter Results * IRON, TIBC, AND PERCENT SATURATION (03/22/2019) Blood Jacek Laura MD CHEMISTRY ORDERABLES NON [facility] * VITAMIN B12 AND FOLATE (03/22/2019) Blood Jacek Laura MD CHEMISTRY ORDERABLES NON [facility] documented in this encounter Visit Diagnoses Diagnosis 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 breast- Primary Mild anemia Anemia, unspecified documented in this encounter Care Teams Pathology Laboratory Aides Teacher Relationship Specialty Start Date End [place] [address] PCP - General Internal Medicine 03/14/18 documented as of this encounter
--- OUTSIDE RECORDS SUMMARY | 2024-04-21 12:27 | XMS_ITS | Encounter Summary ---
Author Organization [facility] Address [address] [facility] Attn: [place] [address] Care Team Providers Care Boat Laborer Name Role Phone Alimta Smallwood MD Primary Care Provider + Encounter Details Date Type Department Care Team (Latest Contact Info) Description 08/16/2019 Travel Social History Tobacco Use Types Packs/Day [...] on filedocumented in this encounter Care Teams Boat Laborer Relationship Specialty Start Date End Date Almita Smallwood MD [address] [place] [address] PCP - General Internal Medicine 03/14/18 documented as of this encounter
--- OUTSIDE RECORDS SUMMARY | 2024-04-21 12:27 | XMS_ITS | Encounter Summary ---
Author Organization [facility] Address [address] [facility] Attn: Epic [facility]rel[facility] [place] [address] Care Team Providers Care Director Of Blood Name Role Phone Almita Smallwood MD Primary Care Provider + Encounter Details Date Type Department Care Team (Latest Contact Info) Description 02/15/2020 Travel Social History Tobacco Use Types Packs/Day [...] as of this encounter Care Teams Director Of Blood Relationship Specialty Start Date End Date Almita Smallwood MD [address] [place] [address] PCP - General Internal Medicine 03/14/18 documented as of this encounter
--- OUTSIDE RECORDS SUMMARY | 2024-04-21 12:27 | XMS_ITS | Encounter Summary ---
Author Organization [facility] Address [address] [place] [address] Care Team Providers Care Medical Voucher Clerk Name Role Phone Almita Smallwood MD Primary Care Provider + Reason for Visit * Reason Onset Date Comments needs appt 02/13/2020 Encounter Details Date Type Department Care Team (Late st Contact Info) Description 02/13/2020 Telephone [facility] Internal Medicine - [place] [id number] [place] [address] Almita Smallwood MD [address] [place] [address] needs appt Social History Tobacco Use Types Packs/Day Years [...] Telephone Encounter - Christin Leary RN - 02/13/2020 8:09 AM CDT Pt called and made an OV appt Tuesday02/15/20 at [address] Smallwood aware. * Telephone Encounter - Christin Leary RN - 02/13/2020 8:08 AM CDT ----- Message from Almita Smallwood MD sent at 02/13/2020 8:03 AM CDT ----- Regarding: RE: Visit Follow-Up Question Contact: Can we add her onto my schedule Tuesday? ----- Message ----- From: Christin Leary RN Sent: 02/13/2020 7:37 AM CDT To: Almita Smallwood MD Subject: Visit Follow-Up Question ----- Message from Christin Leary RN sent at 02/13/2020 7:37 AM CDT ----- ----- Message from Mena Hermosillo to Almita Smallwood MD sent at 2020 1:09 PM ----- I went to the ENT clinic where she looked at my nose, throat and ears and listened to my lungs and said she saw nothing but slight swelling in the nostrils. Still having trouble with breathing over the weekend and I'm kind of done with this. I asked a [facility] doctor over the weekend. Based on whatI told her, she prescribed an inhaler which does seem to be helping. But she also suggested that I needed to get a full heart and pulmonary checkup including CT scan, I am assuming of the lungs. The inhaler is helping. Yesterday my breathing was pretty [...] Could you call me with a response? [phone]. Thanks, Mena Hermosillo documented in this encounter Plan of Treatment Not on file documented as of this encounter Visit Diagnoses Not on filedocumented in this encounter Care Teams Medical Voucher Clerk Relationship Specialty Start Date End Date Almita Smallwood MD [address] [place] [address] PCP - General Internal Medicine 03/14/18 documented as of this encounter
--- OUTSIDE RECORDS SUMMARY | 2024-04-21 12:27 | XMS_ITS | Encounter Summary ---
Author Organization [facility] Address [address] [place] [address] Care Team Providers Care Pulpwood Contractor Name Role Phone Almita Smallwood MD Primary Care Provider + Reason for Visit * Reason Onset Date Comments Information 08/01/2019 Encounter Details Date Type Department Care Team (Late st Contact Info) Description 08/01/2019 Telephone [facility] Oncology and Hematology - [place] [address] [facility] [address] [place] [address] Jacek Laura MD [address] [facility] [address] [place] [address] Information Social History Tobacco Use Types Packs/Day [...] encounter Miscellaneous Notes * Telephone Encounter - Stefany Ramos - 08/01/2019 2:31 PM CDT Left voicemail to reschedule appointment that was canceled on 06/21/2019. documented in this encounter Plan of Treatment Not on file documented as of this encounter Visit Diagnoses Not on filedocumented in this encounter Care Teams Pulpwood Contractor Relationship Specialty Start Date End Date Almita Smallwood MD [address] [place] [address] PCP - General Internal Medicine 03/14/18 documented as of this encounter
--- OUTSIDE RECORDS SUMMARY | 2024-04-21 12:28 | XMS_ITS | Encounter Summary ---
Author Organization [facility] [employer] [facility] Address [address] [place] [address] Care Team Providers Care Shared Services Manager Name Role Phone Almita Smallwood MD Primary Care Provider + Encounter Details Date Type Department Care Team (Late st Contact Info) Description 03/13/2019 Orders Only [facility] Oncology and Hematology - [place] [address] [facility] [address] [place] [address] Jacek Laura MD [address] [facility] [address] [place] [address] Mild anemia Social History Tobacco Use Types [...] Associated Diagnosis Comments CBC WITH DIFFERENTIAL Routine 03/22/2019 Mild anemia documented in this encounter Results * CBC WITH DIFFERENTIAL (03/22/2019) Blood Jacek Laura MD HEMATOLOGY ORDERABLE S EXTERNAL LAB documented in this encounter Visit Diagnoses Diagnosis Mild anemia Anemia, unspecified documented in this encounter Care Teams Shared Services Manager Relationship Specialty Start Date End Date Almita Smallwood MD [address] [place] [address] PCP - General Internal Medicine 03/14/18 documented as of this encounter
--- OUTSIDE RECORDS SUMMARY | 2024-04-21 12:28 | XMS_ITS | Encounter Summary ---
Author Organization [facility] Address [address] [place] [address] Care Team Providers Care Technical Solution Architect Name Role Phone Almita Smallwood MD Primary Care Provider + Encounter Details Date Type Department Care Team (Late st Contact Info) Description 12/19/2018 Orders Only [facility] Internal Medicine - [address] [address] Almita Smallwood MD [address] [place] [address] Screening, ischemic heart disease; Normal routine physical examination; Mild anemia Social History Tobacco Use Types [...] Procedure Name Priority Date/Time Associated Diagnosis Comments COMPREHENSIVE METABOLIC PANEL Routine 12/21/2018 Normal routine physical examination documented in this encounter Results * COMPREHENSIVE METABOLIC PANEL (12/21/2018) Blood Almita Smallwood MD CHEMISTRY ORDERA BLES [facility]# [id number] [address] [place] [address] documented in this encounter Visit Diagnoses Diagnosis Screening, ischemic heart disease Screening for ischemic heart disease Normal routine physical examination Reserved for inherently not codable concepts WITHOUT codable children Mild anemia Anemia, unspecified documented in this encounter Care Teams Technical Solution Architect Relationship Specialty Start Date End Date Almita Smallwood MD [address] [place] [address] PCP - General Internal Medicine 03/14/18 documented as of this encounter
--- OUTSIDE RECORDS SUMMARY | 2024-04-21 12:28 | XMS_ITS | Encounter Summary ---
Author Organization [facility] Aggarwal [facility] Address [address] [place] [address] Care Team Providers Care Direct Selling Counselor Name Role Phone Almita Smallwood MD Primary Care Provider + Reason for Visit * Reason Comments Follow Up Results Encounter Details Date Type Department Care Team ([facility] st Contact Info) Description 12/21/2018 3:15 PM CDT Office Visit [facility] Oncology and Hematology - [place] [address] [place] [address] [address] [place] [address] Jacek Laura MD [address] [facility] [address] [place] [address] Mild anemia (Primary Dx) Social History Tobacco Use Types [...] Sign Reading Time Taken Comments Blood Pressure 132/67 12/21/2018 3:47 PM CDT Pulse 72 12/21/2018 3:47 PM CDT Temperature - - Respiratory Rate - - Oxygen Saturation 98% 12/21/2018 3:47 PM CDT Inhaled Oxygen Concentration - - Weight 65 kg (143 lb 3.2 oz) 12/21/2018 3:47 PM CDT Height 167.6 cm (5' 6 ) 12/21/2018 3:47 PM CDT Body Mass Index 23.11 12/21/2018 3:47 PM CDT documented in this encounter Progress Notes * Jacek Laura MD - 12/21/2018 4:36 PM CDT HEMATOLOGY / ONCOLOGY PROGRESS NOTE Patient Identification: Name: Lisa Hermosillo Age: 58 y.o. 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 CURRENT TREATMENT Tamoxifen started January 2017 TREATMENT HISTORY Left-sided lumpectomy November 22, 2016 Endocrine therapy with tamoxifen started in January 2017 Right axillary lymph node excisional biopsy done November 06, 2018 came back benign SUBJECTIVE Patient came into the office today for follow-up visit. She complain of tiredness and fatigue with lack of sleep denies any bleeding and bruising. Her weight and appetite remain stable. Review of system Constitutional: denies fevers, sweats, [...] dizziness Skin: No lumps, bumps or rashes. Objective: Vital signs in last 24 hours: [...] No lymphadenopathy Neuro: No obvious focal deficit Bilateral breast examination was performed. There is no masses and lymphadenopathy in the right breast examination. There is postoperative changes in the right axilla. Right nipple was inverted. Leftbreast showed no masses and lymphadenopathy. PATH LABS Labs from December 21 showed WBC 3.4 hemoglobin 10.2 platelet 151,000 neutrophils 49% lymphocytes 39%. Assessment: Plan: Patient Active Problem List Diagnosis Date Noted ??? Lymphadenopathy, axillary 10/02/2018 ??? Inversion, nipple 06/30/2018 ??? Estrogen receptor positive status (ER+) 09/15/2017 ??? SERM use (selective estrogen receptor modulator) 09/15/2017 ??? Osteoporosis screening 09/15/2017 ??? 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 breast 01/07/2017 Ductal carcinoma in situ grade 1 with focal LCIS status post left-sided lumpectomy done in November 2016. Patient did not receive radiation therapy due to low Oncotype DX score. She is on tamoxifen andhas been tolerating it fairly well. There is no evidence of relapse of disease on my examination. Patient had bilateral breast MRI done in October 2018 came back unremarkable. Future imaging studies will be in October 2019. Anemia and leukopenia. I will order iron studies and vitamin B12 level. I will see her back in 3 months with repeat labs. Hot flashes. This is under better control with Acteane. TOBACCO COUNSELING She is not a tobacco user. 12/21/2018 Jacek Laura MD documented in this encounter Plan of Treatment Not on file documented as of this encounter Procedures Procedure Name Priority Date/Time Associated Diagnosis Comments VITAMIN B12 AND FOLATE Routine 12/21/2018 Mild anemia IRON, TIBC, AND PERCENT SATURATION Routine 2018 Mild anemia FERRITIN Routine 12/21/2018 Mild anemia documented in this encounter Results * CBC WITH DIFFERENTIAL (03/22/2019) Blood Jacek Laura MD HEMATOLOGY ORDERABLE S EXTERNAL LAB * (ABNORMAL) VITAMIN B12 AND FOLATE (12/21/2018) Blood Jacek Laura MD CHEMISTRY ORDERABLES Performing Organization Address [facility] Co de Phone Number EXTERNAL LAB * IRON, TIBC, AND PERCENT SATURATION (12/21/2018) Blood Jacek Laura MD CHEMISTRY ORDERABLES Performing Organization Address [facility] Co de Phone Number EXTERNAL LAB * FERRITIN (12/21/2018) Blood Jacek Laura MD CHEMISTRY ORDERABLES Performing Organization Address [facility] de Phone Number EXTERNAL LAB documented in this encounter Visit Diagnoses Diagnosis Mild anemia- Primary Anemia, unspecified documented in this encounter Care Teams Direct Selling Counselor Relationship Specialty Start Date End Date Almita Smallwood MD [address] [place] [address] PCP - General Internal Medicine 03/14/18 documented as of this encounter
--- OUTSIDE RECORDS SUMMARY | 2024-04-21 12:28 | XMS_ITS | Encounter Summary ---
Author Organization [facility] Address [address] [place] [address] Care Team Providers Care Supervisor Contingents Name Role Phone Almita Smallwood MD Primary Care Provider + Reason for Visit * Reason Comments Follow Up Bx FU/ MRI FU Encounter Details Date Type Department Care Team ([facility] st Contact Info) Description 10/24/2018 2:25 PM CDT Office Visit [facility] BREAST SURGERY [address], [address] [address] Laverne Thorpe, NO ADDRESS ON FILE Lymphadenopathy, axillary (Primary Dx); Inversion, nipple Social History Tobacco Use Types Packs/Day Years [...] Sign Reading Time Taken Comments Blood Pressure 131/81 10/24/2018 2:20 PM CDT Pulse 85 10/24/2018 2:20 PM CDT Temperature 36.8 ??C (98.3 ??F) 10/24/2018 2:20 PM CD T Respiratory Rate - - Oxygen Saturation 97% 10/24/2018 2:20 PM CDT Inhaled Oxygen Concentration - - Weight 67.9 kg (149 lb 11.2 oz) 10/24/2018 2:20 PM CDT Height 167.6 cm (5' 6 ) 10/24/2018 2:20 PM CDT Body Mass Index 24.16 10/24/2018 2:20 PM CDT documented in this encounter Progress Notes * Laverne Thorpe DO - 10/24/2018 2:49 PM CDT Chief Complaint Patient presents with ??? Follow Up Bx FU/ MRI FU Subjective: The patient states she is feeling well with no complaints. She has had no fevers since the procedure. She did have quite a bit of bruising, and has had some intermittent numbness in the right axilla. She also is here to review her MRI results. PROCEDURE(s): 10/17/2018: Right axilla lymph node core biopsy Pathology: Fragments of lymph node with atypical lymphoid proliferation, differential includes marginal zone hyperplasia versus marginal zone lymphoma. No evidence of metastatic carcinoma. ?? 06/08/2017: right, breast, ultrasound-guided core biopsy 12:00 3 cm from the nipple Pathology: No atypia, focal fibrosis, sclerosing adenosis, focal periductal mastitis. Fragments consistent with cyst wall. Microcalcifications associated with adenosis and benign hyperplasia. Focal columnar change. No atypical or malignant findings. ?? 11/22/2016: Left, Partial Mastectomy Pathology: Ductal carcinoma in situ, grade 1 ?? 10/27/2016: left breast stereotactic biopsy Pathology: Ductal carcinoma in situ, grade 1 ?? 01/2011: Left breast USG bx Pathology: no atypia, UDH, duct ectasia ?? FHx paternal aunt BC dx 80, passed 82, no ovarian cancer, mother colon ca dx 59, passed 61; sister colon ca dx 54, alive 59; father lymphoma or leukemia (patient is unsure) ?? Menarche 15 menopause 54 natural FFTB 22 no breast feeding OCPs 3 months, HRT >1 yr; stopped with dx in 2017 ?? 34A ?? No Ashkenazi heritage ?? Former smoker quit 2005 smoked 39 yrs 2ppd BP 131/81 (BP Location: Right arm, Patient Position (BP): Sitting, BP Cuff Size: Adult) Pulse 85 Temp 98.3 ??F (36.8 ??C) (Oral) Ht 5' 6 (1.676 m) Wt 67.9 kg (149 lb 11.2 oz) LMP 09/15/2014 (Within Months) SpO2 97% BMI 24.16 kg/m?? Current Outpatient Medications Medication Sig Dispense Refill ??? COLLAGEN MISC by Misc.(Non-Drug; Combo Route) route. ??? tamoxifen (NOLVADEX) 20 mg tablet Take 1 Tablet (20 mg) by mouth daily. 90 Tablet 4 ??? TURMERIC ORAL Take by mouth. No current facility-administered medications for this visit. No Known Allergies Past Medical History: Diagnosis Date ??? Breast cancer ??? H/O breast biopsy ??? Kidney stones Past Surgical History: Procedure Laterality Date ??? HX KIDNEY STONE SURGERY ??? HX MASTECTOMY, PARTIAL 11/2016 left side ??? LITHOTRIPSY 03/2015 ROS: Constitutional: Negative for fever, weight loss and malaise/fatigue. Respiratory: Negative for cough. Cardiovascular: Negative for chest pain and leg swelling. Gastrointestinal: Negative for abdominal pain. Genitourinary: Negative for dysuria. Musculoskeletal: Negative for myalgias and joint pain. Skin: Negative for rash. Neurological: Negative for dizziness and headaches. Psychiatric/Behavioral: Negative for depression Female: OB History 3 Para 2 Term 2 AB Living 2 SAB TAB Ectopic Multiple Live Births Obstetric Comments Bra size 34A. Menarche at age 15. LMP at age 54. The remainder of the review of systems including cardiovascular, pulmonary, GI/, neurologic, and endocrine are negative except as noted above. Immunizations: non-contributory PHYSICAL EXAM: BP 131/81 (BP Location: Right arm, Patient Position (BP): Sitting, BP Cuff Size: Adult) Pulse 85 Temp 98.3 ??F (36.8 ??C) (Oral) Ht 5' 6 (1.676 m) Wt 67.9 kg (149 lb 11.2 oz) LMP 09/15/2014 (Within Months) SpO2 97% BMI 24.16 kg/m?? Breasts: The patient was examined in the seated and supine positions today. no cervical, supraclavicular, axillary lymphadenopathy. Breast symmetry: Symmetric Other findings: There is some mild edema of the right axilla with no visible ecchymosis. Biopsy site has healed nicely with no signs of infection, no erythema, no exudate. Ultrasound was done: Right axilla showing the enlarged axillary lymph node with the biopsy marker abutting. Right retroareolar space is also scanned with no abnormality seen deep to the nipple General: well-developed, well-nourished HEENT: normocephalic/atraumatic. Extra-occular movements are intact. Sclera anicteric. Neck is supple without masses. No thyroid nodules. No lymphadenopathy. Cardiovascular: regular rate, rhythm. S1, S2 without murmur. No palpable thrill. 2+ radial pulses. Lungs - clear to auscultation bilaterally. No wheezes. Abdomen: Soft, non-tender. No masses. No palpable liver edge. Extremities: no edema Neurologic: sensory and motor grossly intact. Alert and oriented x 3. Pathology: DCIS and Grade 1, focal LCIS and columnar cell hyperplasia ?? Biomarkers: Estrogen Receptor greater than 90%, positive; progesterone Receptor greater than 90%, positive; her2 not done; ki67 not done ?? Tumor Size: 2 mm with focal LCIS and columnar cell hyperplasia ?? Lymph nodes involved/ how many removed: Not done ?? Lymphovascular invasion: no ?? Extracapsular extension: no ?? Other notes: Patient did not have radiation therapy (Oncotype DCIS showed a score of 0). She started tamoxifen in December 2016, but frequently forgets. ?? Most recent imaging: Bilateral breast MRI with and without contrast was done at [facility] on 10/16/2018. Films and reports are reviewed. Bilaterally, there are no suspicious masses nor areas of enhancement. There are no abnormalities of the axillae, chest wall nor nipple areolar complexes. There are postlumpectomy changes in the left upper outer breast. BI-RADS 2 per radiology. 06/21/2018 right breast diagnostic mammography was done at [facility] mammography center. These images are compared to those of October 21, 2017. Again, a ribbon-shaped biopsy marker is noted in the right breast at 12:00. The breast is quite dense, with about 80% to 90% density. On the cc view, there is a questionable new tiny lesion just lateral to the nipple. This may in reality simply be a blood vessel on end. Otherwise, there are no abnormalities noted and no new findings. BI-RADS 1 per radiology. ?? Bilateral screening mammogram done at [facility] mammography Center on October 21, 2017. Both breasts are imaged, with about 80% density bilaterally. Surgical clips are noted in the left upper outerbreast. Also in the left breast at 12:00, a biopsy clip is noted. This appears to be bonnie-shaped. Aswell, a biopsy clip is seen in the right breast at 12:00. These are the patient's first bilateral films since her surgery. There are no areas of suspicious calcifications, no architectural distortionand no nodular masses seen. BI-RADS 2 per radiology ?? Bone density, DEXA imaging done 10/21/2017 shows density greater than desirable level at all skeletalsites tested. However, this is trending down. Recommendation is for another DEXA scan in 5 years. ?? Left breast mammogram May 26, 2017, BI-RADS 2 ?? Future imaging: Bilateral breast mammogram November 2017 Time spent: 45 minutes spent counseling and coordinating care ASSESSMENT AND PLAN: Encounter Diagnoses Name Primary? Lymphadenopathy, axillary Yes ??? Inversion, nipple MRI results were reviewed with the patient. She understands that there were no suspicious abnormalities bilaterally. Lymph node biopsy results are also reviewed, showing atypical lymphoid proliferation. I explained that the entire lymph node will need to be removed in order for evaluation for the possibility of lymphoma. The procedure of ultrasound-guided needle localized right axillary lymph node biopsy was expla ined in detail, as well as the common and uncommon risks, benefits and expected outcomes. The patient states her understanding and would move like to move forward with the procedure. As far as the right nipple retraction is concerned, I again reiterated that there is no abnormalityto explain this. It is possible that the biopsy she had in May 2017 is the nidus for this issue. Certainly, the scar tissue could pulled in nipple in. We will continue to observe this closely. Questions were solicited and answered. The patient stated her understanding. Proposed procedure: Right axillary ultrasound-guided needle localized excisional biopsy of lymph node This note was transcribed using Speech Recognition software. As a result, there may be grammatical and spelling errors that are unintended. If there are any questions or major inaccuracies, please contact me. documented in this encounter Plan of Treatment Not on file documented as of this encounter Procedures Procedure Name Priority Date/Time Associated Diagnosis Comments US BREAST UNI RT LTD Routine 10/24/2018 Lymphadenopathy, axillary Inversion, nipple documented in this encounter Results * US BREAST UNI RT LTD (10/24/2018) Anatomical Region Laterality Modality Breast Right Other Impressions 10/24/2018 See note. Laverne Schulz Norakrystalshimon MARTINEZ ORDERABLES documented in this encounter Visit Diagnoses Diagnosis Lymphadenopathy, axillary- Primary Inversion, nipple Other sign and symptom in breast documented in this encounter Additional Health Concerns Assessment Noted Time PHQ-9 Depression Total Score: 1 03/14/20 18 3:00 PM DOCUMENT PROCESSING SPECIALIST documented as of this encounter Care Teams Supervisor Contingents Relationship Specialty Start Date End Date Almita Smallwood MD [address] [place] [id number] PCP - General Internal Medicine 03/14/18 documented as of this encounter
--- OUTSIDE RECORDS SUMMARY | 2024-04-21 12:28 | XMS_ITS | Encounter Summary ---
Author Organization [facility] Aggarwal [facility] Address [address] [place] [address] Care Team Providers Care Professor Of Theology Name Role Phone Almita Smallwood MD Primary Care Provider + Reason for Visit * Reason Onset Date Comments Medication Refill 01/24/2019 Encounter Details Date Type Department Care Team (Late st Contact Info) Description 01/24/[address] [facility] Oncology and Hematology - Brian [address] [facility] [address] [place] [address] Jacek Laura MD [address] [facility] [address] [place] [address] Medication Refill Social History Tobacco Use Types Packs/Day Years [...] in situ (DCIS) of left breast- Primary Estrogen receptor positive status (ER+) Estrogen receptor positive status [ER+] documented in this encounter Care Teams Professor Of Theology Relationship Specialty Start Date End Date Almita Smallwood MD [address] [place] [address] PCP - General Internal Medicine 03/14/18 documented as of this encounter
--- OUTSIDE RECORDS SUMMARY | 2024-04-21 12:28 | XMS_ITS | Encounter Summary ---
Author Organization [facility] Address [address] [place] [address] Care Team Providers Care Workday Manager Name Role Phone Almita Smallwood MD Primary Care Provider + Encounter Details Date Type Department Care Team (Late st Contact Info) Description 11/20/2018 Orders Only [facility] BREAST SURGERY [address], [facility] [address] [place] [address] Provider, Abstract NO ADDRESS ON FILE Social [...] Name Priority Date/Time Associated Diagnosis Comments PATHOLOGY Routine 11/06/2018 documented in this encounter Results * PATHOLOGY (11/06/2018) Tissue Abstract Provider PATHOLOG[facility] documented in this encounter Visit Diagnoses Not on filedocumented in this encounter Additional Health Concerns Assessment Noted Time PHQ-9 Depression Total Score: 1 03/14/20 18 3:00 PM FELT PULLER documented as of this encounter Care Teams Workday Manager Relationship Specialty Start Date End Date Almita Smallwood MD [address] [place] [address] PCP - General Internal Medicine 03/14/18 documented as of this encounter
--- OUTSIDE RECORDS SUMMARY | 2024-04-21 12:28 | XMS_ITS | Encounter Summary ---
Author Organization [facility] Address [address] [place] [address] Care Team Providers Care Adobe Flex Developer Name Role Phone Almita Smallwood MD Primary Care Provider + Reason for Visit * Reason Comments Biopsy R Axillary LN Core B x Encounter Details Date Type Department Care Team (Latest Contact Info) Description 10/17/2018 9:30 AM CDT Procedure visit [facility] BREAST SURGERY [address], [address] [address] Laverne Thorpe, NO ADDRESS ON FILE Lymphadenopathy, axillary (Primary Dx) Social History Tobacco Use Types [...] Sign Reading Time Taken Comments Blood Pressure 123/79 10/17/2018 9:20 AM CDT Pulse 73 10/17/2018 9:20 AM CDT Temperature 36.8 ??C (98.3 ??F) 10/17/2018 9:20 AM CD T Respiratory Rate - - Oxygen Saturation 97% 10/17/2018 9:20 AM CDT Inhaled Oxygen Concentration - - Weight 67.4 kg (148 lb 8 oz) 10/17/2018 9:20 AM CDT Height 167.6 cm (5' 6 ) 10/17/2018 9:20 AM CDT Body Mass Index 23.97 10/17/2018 9:20 AM CDT documented in this encounter Progress Notes * Lidia Butler RN - 10/17/2018 3:10 PM CDT jamalJesus Linda raymondabdelrahmandelroy - 21g - coil SenoMark UltraCor Breast Tissue Marker, [id number] [id number] x 10cm Lot: [id number] Exp: [id number] Lidocaine 1% (50mg/5mL) Lot: [id number] Exp: [id number] Dose: 1mL Lidocaine 1% and Epinepherine 1:100,000 (50mL) Lot: [id number] Exp: [id number] Dose: 4mL Sensorcaine 0.25% (50mL) Lot: [id number] Exp: [id number] Dose: 2mL * Laverne Thorpe DO - 10/17/2018 9:30 AM CDT The patient is here for right ultrasound guided core biopsy. Encounter Diagnosis Name Primary? Lymphadenopathy, axillary Yes Consent was reviewed with the patient and signed. 12-gauge core ultrasound guided procedure was done. The location of the biopsy was at right axilla, axillary lymph node characteristics : Enlarged left axillary lymph node with partially obscured hilum BIRADS: 1 Needle approach: Inferolateral A marker was placed. yes and Coil-shaped placement: Marker in perfect position within the lesion. Anesthetic used: Lidocaine 1% 1 mL, lidocaine 1% with epinephrine 4 mL, Marcaine 0.25% 2 mL Specimen: multiple cores Number of cores: 4 PROCEDURE: The area of concern was localized with ultrasonography, and the skin was prepped and draped in the standard surgical fashion. The skin was infiltrated with anesthetic, as were the deep tissues. A small incision was made in the skin, and the biopsy needle was advanced into the breast under direct visualization. Multiple cores were taken under direct visualization as specimen and sent to pathology. Photo do cumentation was taken throughout. Pressure was applied for hemostasis, and steri strips and gauze were applied. A post-biopsy mammogram was done. no Pt was given discharge instructions and a follow up appointment. Questions were solicited and answered. The patient stated her understanding. documented in this encounter Plan of Treatment Not on file documented as of this encounter Visit Diagnoses Diagnosis Lymphadenopathy, axillary- Primary documented in this encounter Additional Health Concerns Assessment Noted Time PHQ-9 Depression Total Score: 1 03/14/20 18 3:00 PM SLOT MACHINE MECHANIC documented as of this encounter Care Teams Adobe Flex Developer Relationship Specialty Start Date End Date Almita Smallwood MD [address] [place] [address] PCP - General Internal Medicine 03/14/18 documented as of this encounter
--- OUTSIDE RECORDS SUMMARY | 2024-04-21 12:28 | XMS_ITS | Encounter Summary ---
Author Organization [facility] Address [address] [place] [address] Care Team Providers Care Prenatal Genetic Counselor Name Role Phone Almita Smallwood MD Primary Care Provider + Encounter Details Date Type Department Care Team (Late st Contact Info) Description 11/15/[address] [facility] ONCOLOGY AND HEMATOLOGY-[address] [address] Almita Smallwood MD [address] [place] [address] Social History Tobacco Use Types [...] Total Score: 1 03/14/20 18 3:00 PM GRADE CHECKER documented as of this encounter Care Teams Prenatal Genetic Counselor Relationship Specialty Start Date End Date Almita Smallwood MD [address] [place] [address] PCP - General Internal Medicine 03/14/18 documented as of this encounter
--- OUTSIDE RECORDS SUMMARY | 2024-04-21 12:28 | XMS_ITS | Encounter Summary ---
Author Organization [facility] Address [address] [place] [address] Care Team Providers Care Solar Designer/Installer Name Role Phone Almita Smallwood MD Primary Care Provider + Encounter Details Date Type Department Care Team (Late st Contact Info) Description 11/27/2018 Orders Only [facility] BREAST SURGERY [address], [facility] [address] [place] [address] Provider, Abstract NO ADDRESS ON [...] Priority Date/Time Associated Diagnosis Comments MRI BREAST DIAGNOSTIC WWO CO NTRAST BILATERAL Routine 10/16/2018 documented in this encounter Results * MRI BREAST W WO CONT BILAT (10/16/2018) Anatomical Region Laterality Modality Breast Bilateral Other Abstract Provider MR ORDERABLES documented in this encounter Visit Diagnoses Not on filedocumented in this encounter Additional Health Concerns Assessment Noted Time PHQ-9 Depression Total Score: 1 03/14/20 18 3:00 PM RECREATION COUNSELOR documented as of this encounter Care Teams Solar Designer/Installer Relationship Specialty Start Date End Date Almita Smallwood MD [address] [place] [address] PCP - General Internal Medicine 03/14/18 documented as of this encounter
--- OUTSIDE RECORDS SUMMARY | 2024-04-21 12:28 | XMS_ITS | Encounter Summary ---
Author Organization [facility] Address [address] [place] [address] Care Team Providers Care Summer Internship Name Role Phone Almita Smallwood MD Primary Care Provider + Reason for Visit * Reason Onset Date Comments Results 12/22/2018 Encounter Details Date Type Department Care Team (Late st Contact Info) Description 12/22/2018 Telephone [facility] Oncology and Hematology - Brian [address] [facility] [address] [place] [address] Jacek Laura MD [address] [facility] [address] [place] [address] Results Social History Tobacco Use Types Packs/Day [...] encounter Miscellaneous Notes * Telephone Encounter - Kusum Brooks - 12/22/2018 2:52 PM CDT Called pt to inform of B12 level from labs drawn on 12-21-18. Also notified pt that she will be starting on B12 injections. Pt verbalized understanding. documented in this encounter Plan of Treatment Not on file documented as of this encounter Visit Diagnoses Not on filedocumented in this encounter Care Teams Summer Internship Relationship Specialty Start Date End Date Almita Smallwood MD [address] [place] [address] PCP - General Internal Medicine 03/14/18 documented as of this encounter
--- OUTSIDE RECORDS SUMMARY | 2024-04-21 12:28 | XMS_ITS | Encounter Summary ---
Author Organization [facility] Address [address] [place] [address] Care Team Providers Care Stretching Machine Operator Name Role Phone Almita Smallwood MD Primary Care Provider + Reason for Visit * Reason Comments Follow Up initial post op Encounter Details Date Type Department Care Team (Late st Contact Info) Description 11/14/2018 4:00 PM CDT Office Visit [facility] BREAST SURGERY LING [address], [address] [address] Laverne Thorpe DO NO ADDRESS ON FILE Lymphadenopathy, axillary (Primary [...] Sign Reading Time Taken Comments Blood Pressure 115/87 11/14/2018 3:48 PM CDT Pulse 75 11/14/2018 3:48 PM CDT Temperature 36.8 ??C (98.3 ??F) 11/14/2018 3:48 PM CD T Respiratory Rate - - Oxygen Saturation 98% 11/14/2018 3:48 PM CDT Inhaled Oxygen Concentration - - Weight 66.4 kg (146 lb 6.4 oz) 11/14/2018 3:48 P M CDT Height 167.6 cm (5' 6 ) 11/14/2018 3:48 PM CDT Body Mass Index 23.63 11/14/2018 3:48 PM CDT documented in this encounter Progress Notes * Laverne Thorpe DO - 11/14/2018 4:00 PM CDT Chief Complaint Patient presents with ??? Follow Up initial post op Subjective: The patient is here 1 week status post excisional biopsy right axillary lymph node. Shehas had some mild discomfort, swelling since the procedure. She states she is not sure if the area is warm. Now that she is checking herself, she feels that may be it is the same temperature as the other side PROCEDURE(s): 11/06/2018: Right axillary excisional biopsy of lymph node Pathology: Benign lymph node, no evidence of lymphoma or other malignant infiltrate; 4 benign lymphnodes, the largest node shows evidence of previous core biopsy with embedded foreign material. 10/17/2018: Right axilla lymph node core biopsy [...] quit 2005 smoked 39 yrs 2ppd BP 115/87 (BP Location: Left arm, Patient Position (BP): Sitting, BP Cuff Size: Adult) Pulse 75 Temp 98.3 ??F (36.8 ??C) (Oral) Ht 5' 6 (1.676 m) Wt 66.4 kg (146 lb 6.4 oz) LMP 09/15/2014 (Within Months) SpO2 98% ? No BMI 23.63 kg/m?? Current Outpatient Medications Medication Sig Dispense Refill ??? HYDROcodone-acetaminophen (NORCO) 5-325 mg tablet Take 1 Tablet by mouth every 8 hours as needed for Pain, Severe. Max Daily Amount: 3 Tablets 5 Tablet 0 ??? COLLAGEN MISC by Misc.(Non-Drug; Combo Route) [...] noted above. Immunizations: non-contributory PHYSICAL EXAM: BP 115/87 (BP Location: Left arm, Patient Position (BP): Sitting, BP Cuff Size: Adult) Pulse 75 Temp 98.3 ??F (36.8 ??C) (Oral) Ht 5' 6 (1.676 m) Wt 66.4 kg (146 lb 6.4 oz) LMP 09/15/2014 (Within Months) SpO2 98% ? No BMI 23.63 kg/m?? Breasts: The patient was examined in the seated and supine positions today. no cervical, supraclavicular, axillary lymphadenopathy. Breast symmetry: Symmetric Other findings: Right axillary incision is healing nicely with no signs of infection. There is no erythema, no exudate. There is edema of the area, measuring 8 x 8 cm. General: well-developed, well-nourished HEENT: normocephalic/atraumatic. Extra-occular movements [...] 1, focal LCIS and columnar cell hyperplasia (11/22/2016) ?? Biomarkers: Estrogen Receptor greater than 90%, [...] with and without contrast was done at [facility] on 10/16/2018. Films and reports are reviewed. Bilaterally, there are no suspicious masses nor areas of enhancement. There are no abnormalities of the axillae, chest wall nor nipple areolar complexes. There are postlumpectomy changes in the left upper outer breast. BI-RADS 2 per radiology. 06/21/2018 right breast diagnostic mammography was done at [facility] [place]. These images are compared to those of [...] radiology. ?? Bilateral screening mammogram done at [facility] on October 21, 2017. Both [...] 2 ?? Future imaging: Bilateral breast mammogram October 2019 ASSESSMENT AND PLAN: Encounter Diagnosis Name Primary? Lymphadenopathy, axillary Yes I explained to the patient that her surgical results showed no carcinoma, no metastatic disease andno lymphoma in the lymph nodes that were assessed. At this time, there is no need for further follow-up for her lymph node swelling. I will plan to see the patient back in 3 weeks for reevaluation ofthe surgical site. In the meantime, she was advised to start massage of the area, which was demonstr ated. I also asked her to apply warm wet compresses. The patient understands to call immediately, if she starts running a fever, if the area becomes redor more swollen. I explained that if there is not much improvement in 3 weeks when she returns, I may need to send her for physical therapy. TOBACCO COUNSELING She is not a tobacco user. As far as the right nipple retraction is concerned, I again reiterated that there is no abnormalityto explain this. It is possible that the biopsy she had in May 2017 is the nidus for this issue. Certainly, the scar tissue could pull the nipple in. We will continue to observe this closely. Questions were solicited and answered. The patient stated her understanding. This note was transcribed using Speech Recognition [...] Total Score: 1 03/14/20 18 3:00 PM CARDIOVASCULAR OR NURSE documented as of this encounter Care Teams Stretching Machine Operator Relationship Specialty Start Date End Date Almita Smallwood MD [address] [place] [address] PCP - General Internal Medicine 03/14/18 documented as of this encounter
--- OUTSIDE RECORDS SUMMARY | 2024-04-21 12:28 | XMS_ITS | Encounter Summary ---
Author Organization [facility] Address [address] [place] [address] Care Team Providers Care Live Study Manager Name Role Phone Almita Smallwood MD Primary Care Provider + Encounter Details Date Type Department Care Team (Late st Contact Info) Description 11/03/2018 Orders Only [facility] BREAST SURGERY [address], [facility] [address] [place] [address] Provider, Abstract NO ADDRESS ON [...] Procedure Name Priority Date/Time Associated Diagnosis Comments 10 HYDROXYCARBAZEPINE Routine 10/16/2018 documented in this encounter Results * 10 HYDROXYCARBAZEPINE (10/16/2018) Blood Abstract Provider [facility]ABLES [facility] documented in this encounter Visit Diagnoses Not on filedocumented in this encounter Additional Health Concerns Assessment Noted Time PHQ-9 Depression Total Score: 1 03/14/20 18 3:00 PM CROWN PERFORATOR OPERATOR documented as of this encounter Care Teams Live Study Manager Relationship Specialty Start Date End Date Almita Smallwood MD [address] [place] [address] PCP - General Internal Medicine 03/14/18 documented as of this encounter
--- OUTSIDE RECORDS SUMMARY | 2024-04-21 12:28 | XMS_ITS | Encounter Summary ---
Author Organization [facility] Address [address] [place] [address] Care Team Providers Care Blow Mold Operator Name Role Phone Almita Smallwood MD Primary Care Provider + Encounter Details Date Type Department Care Team (Late st Contact Info) Description 11/06/2018 Orders Only [facility] BREAST SURGERY [address], [place] [address] [place] [address] Laverne Thorpe DO NO ADDRESS ON [...] as of this encounter Progress Notes * Laverne Thorpe DO - 11/06/2018 5:49 PM CDT Patient called me. Apparently, the prescription from the hospital had been sent to the wrong [facility] pharmacy. I put through a new prescription, spoke with the pharmacist and asked him to cancel the prescription at the other pharmacy. I let the patient know that this has been resolved. documented in this encounter Plan of Treatment Not on file documented as of this encounter Visit Diagnoses Diagnosis Lymphadenopathy, axillary- Primary documented in this encounter Additional Health Concerns Assessment Noted Time PHQ-9 Depression Total Score: 1 03/14/20 18 3:00 PM LAWN SPRINKLER SERVICER documented as of this encounter Care Teams Blow Mold Operator Relationship Specialty Start Date End Date Almita Smallwood MD [address] [place] [address] PCP - General Internal Medicine 03/14/18 documented as of this encounter
--- OUTSIDE RECORDS SUMMARY | 2024-04-21 12:28 | XMS_ITS | Encounter Summary ---
Author Organization [facility] Address [address] [place] [address] Care Team Providers Care Pricer Bagger Name Role Phone Almita Smallwood MD Primary Care Provider + Reason for Visit * Reason Onset Date Comments preoperative call 11/05/2018 Encounter Details Date Type Department Care Team (Late st Contact Info) Description 11/05/2018 Telephone [facility] BREAST SURGERY [address], [place] [place] [address] Laverne Thorpe DO NO ADDRESS ON FILE preoperative call Social History Tobacco Use Types Packs/Day Years [...] encounter Miscellaneous Notes * Telephone Encounter - Laverne Thorpe DO - 11/05/2018 5:29 PM CDT I called this patient to see if she had any questions about tomorrow's procedure. Pt stated she hadnone. Pt stated understanding of her procedure tomorrow. documented in this encounter Plan of Treatment Not on file documented as of this encounter Visit Diagnoses Not on filedocumented in this encounter Additional Health Concerns Assessment Noted Time PHQ-9 Depression Total Score: 1 03/14/20 18 3:00 PM TEACHER THEATER ARTS documented as of this encounter Care Teams Pricer Bagger Relationship Specialty Start Date End Date Almita Smallwood MD [address] [place] [address] PCP - General Internal Medicine 03/14/18 documented as of this encounter
--- OUTSIDE RECORDS SUMMARY | 2024-04-21 12:28 | XMS_ITS | Encounter Summary ---
Author Organization [facility] Address [address] [place] [address] Care Team Providers Care Gear Nicker Name Role Phone Almita Smallwood MD Primary Care Provider + Reason for Visit * Reason Comments Post-op Visit post op follow up Encounter Details Date Type Department Care Team ([facility] st Contact Info) Description 12/06/2018 2:45 PM CDT Office Visit [facility] BREAST SURGERY [address], [address] [address] Laverne Thorpe, NO ADDRESS ON FILE Neurapraxia of upper extremity, initial encounter (Primary Dx); Lymphadenopathy, axillary; 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 breast; Estrogen receptor positive status (ER+); SERM use (selective estrogen receptor modulator); Inversion of nipple Social History Tobacco Use Types Packs/Day [...] Sign Reading Time Taken Comments Blood Pressure 131/53 12/06/2018 2:58 PM CDT Pulse 73 12/06/2018 2:58 PM CDT Temperature 36.8 ??C (98.2 ??F) 12/06/2018 2:58 PM CD T Respiratory Rate - - Oxygen Saturation 98% 12/06/2018 2:58 PM CDT Inhaled Oxygen Concentration - - Weight 65 kg (143 lb 4.8 oz) 12/06/2018 2:58 PM CDT Height 167.6 cm (5' 6 ) 12/06/2018 2:58 PM CDT Body Mass Index 23.13 12/06/2018 2:58 PM CDT documented in this encounter Progress Notes * Laverne Thorpe, - 12/06/2018 2:45 PM CDT Chief Complaint Patient presents with ??? Post-op Visit post op follow up Subjective: Patient is here for 1 month postoperative follow-up. She states that she continues to have some numbness in the right axilla, which is slowly improving over time. She did do scar massage and warm wet compresses for about a week after her last visit, and the swelling improved. 11/14/2018: The patient is here 1 week status post excisional biopsy right axillary lymph node. She has had some mild discomfort, swelling since the [...] quit 2005 smoked 39 yrs 2ppd BP 131/53 (BP Location: Left arm, Patient Position (BP): Sitting, BP Cuff Size: Adult) Pulse 73 Temp 98.2 ??F (36.8 ??C) (Oral) Ht 5' 6 (1.676 m) Wt 65 kg (143 lb 4.8 oz) LMP 09/15/2014 (Within Months) SpO2 98% ? No BMI 23.13 kg/m?? Current Outpatient Medications Medication Sig Dispense [...] Right Abnormal biopsy, lymph node REMOVED ??? HX MASTECTOMY, PARTIAL 11/2016 left side [...] noted above. Immunizations: non-contributory PHYSICAL EXAM: BP 131/53 (BP Location: Left arm, Patient Position (BP): Sitting, BP Cuff Size: Adult) Pulse 73 Temp 98.2 ??F (36.8 ??C) (Oral) Ht 5' 6 (1.676 m) Wt 65 kg (143 lb 4.8 oz) LMP 09/15/2014 (Within Months) SpO2 98% ? No BMI 23.13 kg/m?? Breasts: The patient was examined in the seated and supine positions today. no cervical, supraclavicular, axillary lymphadenopathy. Breast symmetry: Symmetric Other findings: Previously noted edema, which was quite extensive in the right axilla is almost completely resolved. The surgical incision is raised and minimally tender to palpation. There is mild decrease in sensation at the posterior right axilla. The right nipple remains inverted. There are no palpable abnormalities bilaterally. General: well-developed, well-nourished HEENT: normocephalic/atraumatic. Extra-occular movements [...] with and without contrast was done at [facility] on 10/16/2018. Films and reports are reviewed. Bilaterally, there are no suspicious masses nor areas of enhancement. There are no abnormalities of the axillae, chest wall nor nipple areolar complexes. There are postlumpectomy changes in the left upper outer breast. BI-RADS 2 per radiology. 06/21/2018 right breast diagnostic mammography was done at [facility] mammography center. These images are compared to [...] mammogram October 2019 ASSESSMENT AND PLAN: Encounter Diagnoses Name Primary? Lymphadenopathy, axillary ??? 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 breast ??? Estrogen receptor positive status (ER+) ??? SERM use (selective estrogen receptor modulator) ??? Inversion of nipple ??? Neurapraxia of upper extremity, initial encounter Yes The patient was reassured that the numbness she feels will continue to resolve over time. I do feelthat this is likely the result of the surgery, with neuropraxia. I feel that the patient can resume her regular follow-ups with me, and I will plan to see her back in April. She will be due for a bilateral screening mammogram in October of next year. The right nipple retraction has remained unchanged. This is likely due to the biopsy she had in May 2017, and will likely remain the same. The patient understands to call to see me sooner, if there is a new problem or concern. TOBACCO COUNSELING She is not a tobacco user. Questions were solicited and answered. The patient stated her understanding. This note was transcribed using Speech Recognition software. As a result, there may be grammatical and spelling errors that are unintended. If there are any questions or major inaccuracies, please contact me. documented in this encounter Plan of Treatment Not on file documented as of this encounter Visit Diagnoses Diagnosis Neurapraxia of upper extremity, initial encounter- Primary Lymphadenopathy, axillary 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 breast Estrogen receptor positive status (ER+) Estrogen receptor positive status [ER+] SERM use (selective estrogen receptor modulator) Use of selective estrogen receptor modulators (SERMs) Inversion of nipple Other sign and symptom in breast documented in this encounter Care Teams Gear Nicker Relationship Specialty Start Date End Date Almita Smallwood MD [address] [place] [address] PCP - General Internal Medicine 03/14/18 documented as of this encounter
--- OUTSIDE RECORDS SUMMARY | 2024-04-21 12:28 | XMS_ITS | Encounter Summary ---
Author Organization [facility] Address [address] [place] [address] Care Team Providers Care Maintenance Millwright Name Role Phone Almita Smallwood MD Primary Care Provider + Reason for Visit * Reason Comments Follow Up Encounter Details Date Type Department Care Team ([facility] st Contact Info) Description 12/05/2018 3:40 PM CDT Office Visit [facility] Internal Medicine [address] [address] Almita Smallwood MD [address] [place] [address] Normal routine physical examination (Primary Dx); Screening, ischemic heart disease; Mild anemia; Iliotibial band tendonitis of left side; 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 [...] Sign Reading Time Taken Comments Blood Pressure 110/68 12/05/2018 3:38 PM CDT Pulse 70 12/05/2018 3:38 PM CDT Temperature 36.7 ??C (98.1 ??F) 12/05/2018 3:38 PM CD T Respiratory Rate 16 12/05/2018 3:38 PM CDT Oxygen Saturation 99% 12/05/2018 3:38 PM CDT Inhaled Oxygen Concentration - - Weight 64.9 kg (143 lb) 12/05/2018 3:38 PM CDT Height 167.6 cm (5' 6 ) 12/05/2018 3:38 PM CDT Body Mass Index 23.08 12/05/2018 3:38 PM CDT documented in this encounter Progress Notes * Almita Smallwood MD - 12/05/2018 4:05 PM CDT HPI: Lisa Hermosillo is a 58 y.o. female her for follow up. Had lymph node biopsy through [facility]. 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 Has been eye opening and mildly stressful for her. Overall doing well. Started working out again, now left leg sore and tight sometimes. Ongoing for about a month. Feels it in the lateral part of her left thigh, goes down her left leg usually to the knee Does cross her legs a lot which can make it occur more frequently Stretching helps No back or hip pain Feels achy, no nerve pain. Exercise is more high intensity, not sure if it is related. Medications: Current Outpatient Medications on File Prior to Visit Medication Sig Dispense Refill ??? COLLAGEN MISC by Misc.(Non-Drug; Combo Route) route. ??? tamoxifen (NOLVADEX) 20 mg tablet Take 1 Tablet (20 mg) by mouth daily. 90 Tablet 4 ??? TURMERIC ORAL Take by mouth. No current facility-administered medications on file prior to visit. Review of Systems Constitutional: Negative for chills, fever, malaise/fatigue and weight loss. HENT: Negative for ear discharge, ear pain and nosebleeds. Eyes: Negative for double vision, photophobia, pain and discharge. Respiratory: Negative for cough, sputum production, shortness of breath and wheezing. Cardiovascular: Negative for chest pain, palpitations and leg swelling. Gastrointestinal: Negative for abdominal pain, blood in stool, nausea and vomiting. Genitourinary: Negative for dysuria and hematuria. Musculoskeletal: Positive for myalgias (left lateral thigh). Negative for back pain, joint pain andneck pain. Skin: Negative for rash. Neurological: Negative [...] no distension. Musculoskeletal: Normal range of motion. She exhibits no edema, tenderness or deformity. Left hip: Normal. Left IT band tenderness to palpation Neurological: She is alert and oriented to person, place, and time. No cranial nerve deficit. She exhibits normal muscle tone. Gait normal. Coordination normal. GCS score is 15. Skin: Skin is warm and dry. No rash noted. She is not diaphoretic. No erythema. Psychiatric: Mood, memory, affect and judgment normal. Assessment and Plan: Lisa was seen today for follow up. Diagnoses and all orders for this visit: Normal routine physical examination Discussed preventative health care in detail including regular exercise, healthy diet - COMPREHENSIVE METABOLIC PANEL; Future - CBC WITH DIFFERENTIAL; Future Screening, ischemic heart disease - LIPID PANEL; Future Mild anemia Up to date on colonoscopy, repeat CBC now - CBC WITH DIFFERENTIAL; Future Iliotibial band tendonitis of left side Exercises and stretches given in patient handout 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 breast Follows with Oncologist and breast surgeon, recently had biopsy of right axillary LN which was normal. On Tamoxifen through [facility] [employer] [facility] She is not a tobacco user. Almita Smallwood MD [facility] Internal Medicine- [facility] documented in this encounter Miscellaneous Notes * Patient Instructions - Almita Smallwood MD - 12/05/2018 4:37 PM CDT Images from the original note were not included. [employer] Iliotibial Band Syndrome: Exercises Introduction Here are some examples of exercises for you to try. The exercises may be suggested for a condition or for rehabilitation. Start each exercise slowly. Ease off the exercises if you start to have pain. You will be told when to start these exercises and which ones will work best for you. How to do the exercises Iliotibial band stretch 1. Lean sideways against a wall. If you are not steady on your feet, hold on to a chair or counter. 2. Stand on the leg with the affected hip, with that leg close to the wall. Then cross your other leg in front of it. 3. Let your affected hip drop out to the side of your body and against the wall. Then lean away from your affected hip until you feel a stretch. 4. Hold the stretch for 15 to 30 seconds. 5. Repeat 2 to 4 times. Piriformis stretch 1. Lie on your back with your legs straight. 2. Lift your affected leg and bend your knee. With your opposite hand, reach across your body, and then gently pull your knee toward your opposite shoulder. 3. Hold the stretch for 15 to 30 seconds. 4. Repeat 2 to 4 times. Hamstring wall stretch 1. Lie on your back in a doorway, with your good leg through the open door. 2. Slide your affected leg up the wall to straighten your knee. You should feel a gentle stretch down the back of your leg. 1. Do not arch your back. 2. Do not bend either knee. 3. Keep one heel touching the floor and the other heel touching the wall. Do not point your toes. 3. Hold the stretch for at least 1 minute to begin. Then try to lengthen the time you hold the stretch to as long as 6 minutes. 4. Repeat 2 to 4 times. 5. If you do not have a place to do this exercise in a doorway, there is another way to do it: 6. Lie on your back, and bend the knee of your affected leg. 7. Loop a towel under the ball and toes of that foot, and hold the ends of the towel in your hands. 8. Straighten your knee, and slowly pull back on the towel. You should feel a gentle stretch down the back of your leg. 9. Hold the stretch for 15 to 30 seconds. Or even better, hold the stretch for 1 minute if you can. 10. Repeat 2 to 4 times. Follow-up care is a julian part of your treatment and safety. Be sure to make and go to all appointments, and call your doctor if you are having problems. It's also a good idea to know your test resultsand keep a list of the medicines you take. Where can you learn more? Go to https://www.Memoright.net/patientEd Enter P252 in the search box to learn more about Iliotibial Band Syndrome: Exercises. Current as of: January 05, 2018 Content Version: 12.1 ?? 6041-2993 [employer]. Care instructions adapted under license by your healthcare professional. If you have questions about a medical condition or this instruction, always ask your healthcare professional. These instructions may not represent the values of this healthcare organization. [employer] disclaims any warranty or liability for your use of this information. [employer]. Iliotibial Band Syndrome: Care Instructions Your Care Instructions Iliotibial band syndrome is pain and swelling of the iliotibial band (also called the IT band). This is a band of tissue that runs down the outside of your thigh. It connects the side of your hip to the side of your knee. It helps keep your knee and hip stable and in their normal position. When you have IT band syndrome, you may feel pain on the outside of your hip. It happens as your ITband snaps back and forth over the bony point of your hip. Sometimes you may only feel pain on the outside of your knee. You can get this syndrome if the IT band is too tight or if you do certain activities over and overthat put pressure on your hip or knee. This is a common problem in runners, cyclists, and people who do other aerobic activities. IT band syndrome is treated with rest and medicines. These relieve swelling and pain. Physical therapy is also used. It may include stretching or doing certain exercises that can help strengthen yourIT band and hip muscles. Sometimes a steroid shot is given to help relieve pain at the spot that ismost sore. Follow-up care is a julian part of your treatment and safety. Be sure to make and go to all appointments, and call your doctor if you are having problems. It's also a good idea to know your test resultsand keep a list of the medicines you take. How can you care for yourself at home? ?? Stay at a healthy weight. Being overweight puts extra strain on your hip and knee joints. ?? Take pain medicines exactly as directed. ? If the doctor gave you a prescription medicine for pain, take it as prescribed. ? If you are not taking a prescription pain medicine, ask your doctor if you can take an ilmi-unm-scjllbu medicine. ?? Talk to your doctor or physical therapist about exercises that will help ease hip and knee pain. ? Stretch before you exercise. This can help prevent stiffness and injury. You can try gentle formsof yoga to help keep your joints and muscles flexible. ? Use exercises that are less stressful on the joints. Walk instead of jog. Ride a stationary bike with little resistance. Or you can swim or try water exercise. ? Do exercises that can help strengthen your IT band and hip muscles. Your doctor or physical therapist can tell you what kind of exercises are best for you. He or she can help you learn the right way to do the exercises. When should you call for help? Watch closely for changes in your health, and be sure to contact your doctor if: ? You have pain in your hip or knee that doesn't go away. ? You do not get better as expected. Where can you learn more? Go to https://www.Memoright.net/patientEd Enter L449 in the search box to learn more about Iliotibial Band Syndrome: Care Instructions. Current as of: January 05, 2018 Content Version: 12.1 ?? 8497-1115 [employer]. Care instructions adapted under license by your healthcare professional. If you have questions about a medical condition or this instruction, always ask your healthcare professional. These instructions may not represent the values of this healthcare organization. [employer] disclaims any warranty or liability for your use of this information. [employer]Cloud. Well Visit, Women 50 to 65: Care Instructions Your Care Instructions Physical exams can help you stay healthy. Your doctor has checked your overall health and may have suggested ways to take good care of yourself. He or she also may have recommended tests. At home, you can help prevent illness with healthy eating, regular exercise, and other steps. Follow-up care is a julian part of your treatment and safety. Be sure to make and go to all appointments, and call your doctor if you are having problems. It's also a good idea to know your test resultsand keep a list of the medicines you take. How can you care for yourself at home? ?? Reach and stay at a healthy weight. This will lower your risk for many problems, such as obesity, diabetes, heart disease, and high blood pressure. ?? Get at least 30 minutes of exercise on most days of the week. Walking is a good choice. You alsomay want to do other activities, such as running, swimming, cycling, or playing tennis or team sports. ?? Do not smoke. Smoking can make health problems worse. If you need help quitting, talk to your doctor about stop-smoking programs and medicines. These can increase your chances of quitting for good. ?? Protect your skin from too much sun. When you're outdoors from 10 a.m. to 4 p.m., stay in the shade or cover up with clothing and a hat with a wide brim. Wear sunglasses that block UV rays. Even when it's cloudy, put broad-spectrum sunscreen (SPF 30 or higher) on any exposed skin. ?? See a dentist one or two times a year for checkups and to have your teeth cleaned. ?? Wear a seat belt in the car. Follow your doctor's advice about when to have certain tests. These tests can spot problems early. ?? Cholesterol. Your doctor will tell you how often to have this done based on your age, family history, or other things that can increase your risk for heart attack and stroke. ?? Blood pressure. Have your blood pressure checked during a routine doctor visit. Your doctor willtell you how often to check your blood pressure based on your age, your blood pressure results, andother factors. ?? Mammogram. Ask your doctor how often you should have a mammogram, which is an X-ray of your breasts. A mammogram can spot breast cancer before it can be felt and when it is easiest to treat. ?? Pap test and pelvic exam. Ask your doctor how often you should have a Pap test. You may not needto have a Pap test as often as you used to. ?? Vision. Have your eyes checked every year or two or as often as your doctor suggests. Some experts recommend that you have yearly exams for glaucoma and other age-related eye problems starting at age 50. ?? Hearing. Tell your doctor if you notice any change in your hearing. You can have tests to find out how well you hear. ?? Diabetes. Ask your doctor whether you should have tests for diabetes. ?? Colorectal cancer. Your risk for colorectal cancer gets higher as you get older. Some experts say that adults should start regular screening at age 50 and stop at age 75. Others say to start before age 50 or continue after age 75. Talk with your doctor about your risk and when to start and stop screening. ?? Thyroid disease. Talk to your doctor about whether to have your thyroid checked as part of a regular physical exam. Women have an increased chance of a thyroid problem. ?? Osteoporosis. You should begin tests for bone density at age 65. If you are younger than 65, askyour doctor whether you have factors that may increase your risk for this disease. You may want to have this test before age 65. ?? Heart attack and stroke risk. At least every 4 to 6 years, you should have your risk for heart attack and stroke assessed. Your doctor uses factors such as your age, blood pressure, cholesterol, and whether you smoke or have diabetes to show what your risk for a heart attack or stroke is over the next 10 years. When should you call for help? Watch closely for changes in your health, and be sure to contact your doctor if you have any problems or symptoms that concern you. Where can you learn more? Go to https://www.Memoright.net/patientEd Enter Y074 in the search box to learn more about Well Visit, Women 50 to 65: Care Instructions. Current as of: March 30, 2018 Content Version: 12.1 ?? 4884-7468 [employer]. Care instructions adapted under license by your healthcare professional. If you have questions about a medical condition or this instruction, always ask your healthcare professional. These instructions may not represent the values of this healthcare organization. [employer] disclaims any warranty or liability for your use of this information. documented in this encounter Plan of Treatment Scheduled Orders Name Type Priority Associated Diagnoses Orde r Schedule CBC WITH DIFFERENTIAL Lab Routine Normal routine physical examination Mild anemia Expected: 12/05/2018, Expires: 12/05/2019 LIPID PANEL Lab Routine Screening, ischemic heart disease Expected: 12/05/2018, Expires: 12/05/2019 documented as of this encounter Results * COMPREHENSIVE METABOLIC PANEL (12/21/2018) Blood Almita Smallwood MD [facility] [id number] [address] [place] [id number] documented in this encounter Visit Diagnoses Diagnosis Normal routine physical examination- Primary Reserved for inherently not codable concepts WITHOUT codable children Screening, ischemic heart disease Screening for ischemic heart disease Mild anemia Anemia, unspecified Iliotibial band tendonitis of left side 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 breast documented in this encounter Care Teams Maintenance Millwright Relationship Specialty Start Date End Date Almita Smallwood MD [address] [place] [phone] PCP - General Internal Medicine 03/14/18 documented as of this encounter
--- OUTSIDE RECORDS SUMMARY | 2024-04-21 12:29 | XMS_ITS | Encounter Summary ---
Author Organization [facility] Address [address] [place] [address] Care Team Providers Care Security Professionals Name Role Phone Almita Smallwood MD Primary Care Provider + Reason for Visit * Reason Onset Date Comments Medication Refill 07/25/2018 Encounter Details Date Type Department Care Team (Late st Contact Info) Description 07/25/2018 Telephone [facility] Oncology and Hematology - Brian [address] [facility] [address] [place] [address] Jacek Laura MD [address] [facility] [address] [place] [address] Medication Refill Social History Tobacco [...] encounter Miscellaneous Notes * Telephone Encounter - Brandi Peacock RN - 07/25/2018 9:25 AM CDT Pt requests tam[facility] refill [facility], pt no longer uses [facility]. Brandi Peacock RN documented in this encounter Plan of Treatment Not on file documented as of this encounter Visit Diagnoses Not on filedocumented in this encounter Additional Health Concerns Assessment Noted Time PHQ-9 Depression Total Score: 1 03/14/20 18 3:00 PM [facility] documented as of this encounter Care Teams Security Professionals Relationship Specialty Start Date End Date Almita Smallwood MD [address] [place] [address] PCP - General Internal Medicine 03/14/18 documented as of this encounter
--- OUTSIDE RECORDS SUMMARY | 2024-04-21 12:29 | XMS_ITS | Encounter Summary ---
Author Organization [facility] Address [address] [place] [address] Care Team Providers Care Telegrapher Agent Name Role Phone Almita Smallwood MD Primary Care Provider + Reason for Referral * Eval and Treat (Routine) - Closed Specialty Diagnoses / Procedures Referred By Tati t Referred To Contact Obstetrics and Gynecology Diagnoses Encounter for medical examination to establish care Almita Smallwood MD [address] [place] [address] Maribell Brown MD [address] [place] [address] [place] [id number] Referral ID Status Reason Start Date Expiration Date V isits Requested Visits Authorized [id number] Closed CRS To Schedule (STL) 03/14/2018 03/15/2019 1 1 [employer] P[employer]AGE [employer] * Eval and Treat (Routine) - Closed Specialty Diagnoses / Procedures Referred By Contac t Referred To Contact Surgery Diagnoses Lipoma of back Almita Smallwood MD [address] [place] [address] Referral ID Status Reason Start Date Expiration Date V isits Requested Visits Authorized [id number] Closed CRS To Schedule (STL) 03/14/2018 03/14/2019 1 1 [employer] Reason for Visit * Reason Comments Establish Care Dizziness Elbow Pain Cyst on back Encounter Details Date Type Department Care Team (Late st Contact Info) Description 03/14/2018 2:20 PM SE[employer]ONAL P[employer]AGE HANDLER Office Visit [facility] Internal Medicine - [id number] [place] [address] Almita Smallwood MD [address] [place] [address] Encounter for medical examination to establish care (Primary Dx); Need for Tdap vaccination; Lipoma of back; Right elbow pain; Dizzinesses; 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 [...] Sign Reading Time Taken Comments Blood Pressure 120/76 03/14/2018 2:18 PM [employer] P[employer] Pulse 76 03/14/2018 2:18 PM [employer] P[employer]AGE HAND[employer]ER Temperature 36.7 ??C (98 ??F) 03/14/2018 2:18 PM SE[employer]AL PACKAGE HANDLER Respiratory Rate 16 03/14/2018 2:18 PM SE[employer]ONAL PACKAGE HANDLER Oxygen Saturation - - Inhaled Oxygen Concentration - - Weight 64.4 kg (142 lb) 03/14/2018 2:18 PM SE[employer]AL P[employer]AGE HANDLER Height 167.6 cm (5' 6 ) 03/14/2018 2:18 PM SE[employer]AL PACKAGE HANDLER Body Mass Index 22.92 03/14/2018 2:18 PM SE[employer]ONAL PACKAGE HANDLER documented in this encounter Progress Notes * Almita Smallwood MD - 03/14/2018 2:41 PM CST HPI: Lisa Hermosillo is a 58 y.o. female who presents to establish care. Prior PCP retired: Dr. Lalo Boyer Dizziness occurred two months ago. Goes to exercise class, had weights above head, felt really dizzy when she stood up. Dizziness when she would flip her head over. Went to Urgent Care, have her an antibiotic and steroids for possible sinus infection which didn't help at all. Did a CT of her head which was normal, treated as possible allergies. Gave her pseudoephedrine and steroid shot. Over timehas gotten a little better. Improving Right elbow is really sore and hot, difficult to move sometimes. No swelling. If she keeps her arm up that helps if she is supporting it on her desk. Doesn't occur when she is not working, likely related to position at work. Worse at work, sits in a corner desk. Lifting weight can make it worse. Has a cyst on her back, has been present for a long time. Sometimes when she touches she notices itsmells. No drainage. Prone to cancer in family, wants to have it gone and taken care of. Prior doctor was going to refer her to a Plastic Surgeon Stage 0 breast cancer - mastectomy left side, no chemo, no radiation, on Tamoxifen Had colonoscopy in March 2017 at [facility] Past Medical History: Past Medical History: Diagnosis Date ??? Breast cancer ??? H/O breast biopsy ??? Kidney stones Surgical History: Past Surgical History: Procedure Laterality Date ??? HX KIDNEY STONE SURGERY ??? HX MASTECTOMY, PARTIAL 11/2016 left side ??? LITHOTRIPSY 03/2015 Family History: Family History Problem Relation Age of Onset ??? Cancer Father leukemia ??? Colon Cancer Mother ??? Other Sister ??? Heart Disease Brother ??? Healthy Brother ??? No Known Problems Sister ??? Healthy Sister ??? No Known Problems Sister ??? No Known Problems Sister ??? Colon Cancer Sister ??? No Known Problems Sister ??? No Known Problems Sister Social History: Social History Substance Use Topics ??? Smoking status: Former Smoker Packs/day: 2.00 Years: 20.00 Types: Cigarettes Quit date: 01/07/2005 ??? Smokeless tobacco: Never Used ??? Alcohol use Yes Comment: occasional Medications: Current Outpatient Prescriptions on File Prior to Visit Medication Sig Dispense Refill ??? tamoxifen (NOLVADEX) 20 mg tablet Take 1 Tablet (20 mg) by mouth daily. 90 Tablet 4 No current facility-administered medications on file prior to visit. Allergies: No Known Allergies Review of Systems Constitutional: Negative for chills, diaphoresis, fever, malaise/fatigue and weight loss. HENT: Negative for congestion, ear pain, nosebleeds, sinus pain and tinnitus. Eyes: Negative for blurred vision, double vision, photophobia and pain. Respiratory: Negative for cough, hemoptysis, sputum production and shortness of breath. Cardiovascular: Negative for chest pain, palpitations and claudication. Gastrointestinal: Negative for abdominal pain, blood in stool, constipation, diarrhea, nausea and vomiting. Genitourinary: Negative for dysuria, frequency, hematuria and urgency. Musculoskeletal: Positive for joint pain. Negative for back pain, myalgias and neck pain. Skin: Negative for rash. Neurological: Positive for dizziness. Negative for tingling, tremors, sensory change, speech change, focal weakness, seizures and headaches. Psychiatric/Behavioral: Negative for depression, substance abuse and suicidal ideas. The patient isnot nervous/anxious. Objective: BP 120/76 Pulse 76 Temp 98 ??F (36.7 ??C) (Oral) Resp 16 Ht 5' 6 (1.676 m) Wt 64.4 kg (142 lb) LMP 09/15/2014 (Within Months) BMI 22.92 kg/m?? Physical Exam Constitutional: She is oriented to person, place, and time and well-developed, well-nourished, and in no distress. No distress. HENT: Head: Normocephalic and atraumatic. Right Ear: External ear normal. Left Ear: External ear normal. Mouth/Throat: Oropharynx is clear and moist. No oropharyngeal exudate. Eyes: Conjunctivae are normal. Right eye exhibits no discharge. Left eye exhibits no discharge. Neck: Neck supple. No JVD present. No tracheal deviation present. No thyromegaly present. Cardiovascular: Normal rate, regular rhythm, normal heart sounds and intact distal pulses. No murmur heard. Pulmonary/Chest: Effort normal and breath sounds normal. No respiratory distress. She has no wheezes. She has no rales. Abdominal: Soft. Bowel sounds are normal. She exhibits no distension. There is no tenderness. Thereis no rebound and no guarding. Musculoskeletal: Normal range of motion. She exhibits no edema, tenderness or deformity. Lymphadenopathy: She has no cervical adenopathy. Neurological: She is alert and oriented to person, place, and time. She has normal motor skills, normal sensation, normal strength, normal reflexes and intact cranial nerves. No cranial nerve deficitor sensory deficit. Gait normal. GCS score is 15. Skin: Skin is warm and dry. No rash noted. She is not diaphoretic. No erythema. Lipoma on back Procedures Assessment and Plan: Lisa was seen today for establish care, dizziness, elbow pain and cyst. Diagnoses and all orders for this visit: Encounter for medical examination to establish care - CBC WITH DIFFERENTIAL; Future - COMPREHENSIVE METABOLIC PANEL; Future - VITAMIN D 25 HYDROXY; Future - AMB REFERRAL TO SCALEHOUSE ATTENDANT - CBC WITH DIFFERENTIAL - COMPREHENSIVE METABOLIC PANEL - VITAMIN D 25 HYDROXY Need for Tdap vaccination - TDAP VACCINE >7 YO IM Lipoma of back - AMB REFERRAL TO GENERAL SURGERY Right elbow pain Likely positional related to work, patient is getting new desk, trial naproxen, patient to call if symptoms do not improve - naproxen (NAPROSYN) 500 mg tablet; Take 1 Tablet (500 mg) by mouth 2 times daily with meals for 7days. Dizzinesses Improving, neuro exam normal, encouraged oral hydration DCIS of left breast Stage 0, following with Onc on Tamoxifen, need records DEPRESSION SCREEN Positive: PHQ-2 score > 2 or PHQ-9 score > 9 PHQ-2 Total: 1 (03/14/18 1500) PHQ-9 Total: 5 (03/14/18 1500) Her depression screen was normal BMI PLAN OF CARE Normal BMI ranges: 18-64 yrs: > or = 18.5 and < 25 65 yrs and older: > or = 23 and < 30 Body mass index is 22.92 kg/m??. BMI within normal limits BLOOD PRESSURE BP Readings from Last 3 Encounters: 03/14/18 120/76 12/21/17 118/68 09/15/17 123/77 Pre-hypertensive BP reading systolic between 120 to 139 or diastolic between 80 to 89 and no diagnosis of hypertension. Patient instructed to recheck blood pressure within one year; discussed lifestyle changes including weight loss, reducing sodium intake, and increasing physical activity for bloodpressure control.. TOBACCO COUNSELING She is not a tobacco user. Health Maintenance Topic Date Due ??? CERVICAL CANCER SCREENING 02/12/1992 ??? COLORECTAL SCREENING 02/12/2012 ??? BREAST CANCER SCREENING 10/21/2018 ??? INFLUENZA VACCINE Completed Vaccines Td q10 years- Tdap once: UTD Follow up in 6mo Almita Smallwood MD [facility]- [facility] [employer] P[employer]AGE HANDLER documented in this encounter Miscellaneous Notes * Patient Instructions - Almita Smallwood MD - 03/14/2018 3:14 PM SEASONAL PACKAGE HANDLER Images from the original note were not included. Central Referral Scheduling will be contacting you by phone to schedule [facility]. If you have not received a call within one business day, please call [phone] or , Tuesday through Tuesday between 8 a.m. and 5 p.m. To schedule your appointment. Future Domain. Dizziness: Care Instructions Your Care Instructions Dizziness is the feeling of unsteadiness or fuzziness in your head. It is different than having vertigo, which is a feeling that the room is spinning or that you are moving or falling. It is also different from lightheadedness, which is the feeling that you are about to faint. It can be hard to know what causes dizziness. Some people feel dizzy when they have migraine headaches. Sometimes bouts of flu can make you feel dizzy. Some medical conditions, such as heart problemsor high blood pressure, can make you feel dizzy. Many medicines can cause dizziness, including medicines for high blood pressure, pain, or anxiety. If a medicine causes your symptoms, your doctor may recommend that you stop or change the medicine.If it is a problem with your heart, you may need medicine to help your heart work better. If there is no clear reason for your symptoms, your doctor may suggest watching and waiting for a while to see if the dizziness goes away on its own. Follow-up care is a julian part of your treatment and safety. Be sure to make and go to all appointments, and call your doctor if you are having problems. It's also a good idea to know your test resultsand keep a list of the medicines you take. How can you care for yourself at home? ?? If your doctor recommends or prescribes medicine, take it exactly as directed. Call your doctor if you think you are having a problem with your medicine. ?? Do not drive while you feel dizzy. ?? Try to prevent falls. Steps you can take include: ?? Using nonskid mats, adding grab bars near the tub, and using night-lights. ?? Clearing your home so that walkways are free of anything you might trip on. ?? Letting family and friends know that you have been feeling dizzy. This will help them know how to help you. When should you call for help? Call 911 anytime you think you may need emergency care. For example, call if: ? You passed out (lost consciousness). ? You have dizziness along with symptoms of a heart attack. These may include: ?? Chest pain or pressure, or a strange feeling in the chest. ?? Sweating. ?? Shortness of breath. ?? Nausea or vomiting. ?? Pain, pressure, or a strange feeling in the back, neck, jaw, or upper belly or in one or both shoulders or arms. ?? Lightheadedness or sudden weakness. ?? A fast or irregular heartbeat. ? You have symptoms of a stroke. These may include: ?? Sudden numbness, tingling, weakness, or loss of movement in your face, arm, or leg, especially on only one side of your body. ?? Sudden vision changes. ?? Sudden trouble speaking. ?? Sudden confusion or trouble understanding simple statements. ?? Sudden problems with walking or balance. ?? A sudden, severe headache that is different from past headaches. ??Call your doctor now or seek immediate medical care if: ? You feel dizzy and have a fever, headache, or ringing in your ears. ? You have new or increased nausea and vomiting. ? Your dizziness does not go away or comes back. ??Watch closely for changes in your health, and be sure to contact your doctor if: ? You do not get better as expected. Where can you learn more? Go to https://www.[employer].net/patientEd Enter Q823 in the search box to learn more about Dizziness: Care Instructions. Current as of: March 07, 2017 Content Version: 11.8 ?? [id number] [employer]. Care instructions adapted under license by your healthcare professional. If you have questions about a medical condition or this instruction, always ask your healthcare professional. These instructions may not represent the values of this healthcare organization. [employer] disclaims any warranty or liability for your use of this information. Future Domain. Lightheadedness or Faintness: Care Instructions Your Care Instructions Lightheadedness is a feeling that you are about to faint or pass out. You do not feel as if you or your surroundings are moving. It is different from vertigo, which is the feeling that you or things around you are spinning or tilting. Lightheadedness usually goes away or gets better when you lie down. If lightheadedness gets worse, it can lead to a fainting spell. It is common to feel lightheaded from time to time. Lightheadedness usually is not caused by a serious problem. It often is caused by a short-lasting drop in blood pressure and blood flow to your head that occurs when you get up too quickly from a seated or lying position. Follow-up care is a julian part of your treatment and safety. Be sure to make and go to all appointments, and call your doctor if you are having problems. It's also a good idea to know your test resultsand keep a list of the medicines you take. How can you care for yourself at home? ?? Lie down for 1 or 2 minutes when you feel lightheaded. After lying down, sit up slowly and remain sitting for 1 to 2 minutes before slowly standing up. ?? Avoid movements, positions, or activities that have made you lightheaded in the past. ?? Get plenty of rest, especially if you have a cold or flu, which can cause lightheadedness. ?? Make sure you drink plenty of fluids, especially if you have a fever or have been sweating. ?? Do not drive or put yourself and others in danger while you feel lightheaded. When should you call for help? Call 911 anytime you think you may need emergency care. For example, call if: ? You have symptoms of a stroke. These may include: ?? Sudden numbness, tingling, weakness, or loss of movement in your face, arm, or leg, especially on only one side of your body. ?? Sudden vision changes. ?? Sudden trouble speaking. ?? Sudden confusion or trouble understanding simple statements. ?? Sudden problems with walking or balance. ?? A sudden, severe headache that is different from past headaches. ? You have symptoms of a heart attack. These may include: ?? Chest pain or pressure, or a strange feeling in the chest. ?? Sweating. ?? Shortness of breath. ?? Nausea or vomiting. ?? Pain, pressure, or a strange feeling in the back, neck, jaw, or upper belly or in one or both shoulders or arms. ?? Lightheadedness or sudden weakness. ?? A fast or irregular heartbeat. After you call 911, the oven operator automatic may tell you to chew 1 adult-strength or 2 to 4 low-dose aspirin. Wait for an ambulance. Do not try to drive yourself. ??Watch closely for changes in your health, and be sure to contact your doctor if: ? Your lightheadedness gets worse or does not get better with home care. Where can you learn more? Go to https://www.[employer].net/patientEd Enter X578 in the search box to learn more about Lightheadedness or Faintness: Care Instructions. Current as of: March 07, 2017 Content Version: 11.8 ?? [id number] [employer]. Care instructions adapted under license by your healthcare professional. If you have questions about a medical condition or this instruction, always ask your healthcare professional. These instructions may not represent the values of this healthcare organization. [employer] disclaims any warranty or liability for your use of this information. [employer] P[employer]ER documented in this encounter Plan of Treatment Scheduled Referrals Name Type Priority Associated Diagnoses Orde r Schedule AMB REFERRAL TO GENERAL SURGERY Outpatient Referral Routine Lipoma of back Ordered: 03/14/2018 AMB REFERRAL TO SCALEHOUSE ATTENDANT Outpatient Referral Routine Encounter for medical examination to establish care Ordered: 03/14/2018 documented as of this encounter Procedures Procedure Name Priority Date/Time Associated Diagnosis Comments CBC WITH DIFFERENTIAL Routine 03/14/2018 3:17 PM SE[employer]ONAL PACKAGE HANDLER Encounter for medical examination to establish care VITAMIN D 25 HYDROXY Routine 03/14/2018 3:17 PM SEASONAL PACKAGE HANDLER Encounter for medical examination to establish care COMPREHENSIVE METABOLIC PANEL Routine 03/14/2018 3:17 PM SEASONAL PACKAGE HANDLER Encounter for medical examination to establish care documented in this encounter Results * VITAMIN D 25 HYDROXY (03/14/2018 3:17 PM SEASONAL PACKAGE HANDLER) VITAMIN D TOTAL (25OH) 66 30 - 100 ng/mL 03/14/2018 11:53 PM [facility] Comment:Quantitated by kari kaplan. Blood Venipuncture / Unknown 03/14/2018 3:17 PM SEASONAL PACKAGE HANDLER 03/14/2018 3:28 PM SEASONAL PACKAGE HANDLER Narrative [facility] - 03/14/2018 11:53 PM SEASONAL PACKAGE HANDLER Interpretive Data Chart: Deficient: 0 - 20 ng/mL Insufficient: 21 - 29 ng/mL Sufficient: 30 - 100 ng/mL Increased Risk of Hypercalciuria: >100 ng/mL Toxic: >150 ng/mL Almita Smallwood MD CHEMISTRY ORDERA BLES [facility] CLIA# [id number] [address] [facility] [place] [address] * (ABNORMAL) COMPREHENSIVE METABOLIC PANEL (03/14/2018 3:[address] [facility] SODIUM 142 136 - 145 mmol/L 03/14/2018 4:01 PM [facility] POTASSIUM 4.1 3.5 - 5.1 mmol/L 03/14/2018 4:01 PM [facility] CHLORIDE 107 98 - 107 mmol/L 03/14/2018 4:01 PM [facility] CO2 27 22 - 29 mmol/L 03/14/2018 4:01 PM [facility] CALCIUM 9.1 8.6 - 10.2 mg/dL 03/14/2018 4:01 PM [facility] BUN 11 6 - 20 mg/dL 03/14/2018 4:01 PM [facility] CREATININE 0.91(H) 0.50 - 0.90 mg/dL 03/14/2018 4:01 PM [facility] GLUCOSE 91 74 - 99 mg/dL 03/14/2018 4:01 PM [facility] TOTAL PROTEIN 6.5(L) 6.6 - 8.7 g/dL 03/14/2018 4:01 PM [facility] ALBUMIN 3.9 3.5 - 5.2 g/dL 03/14/2018 4:01 PM [facility] BILIRUBIN TOTAL 0.2 <1.2 mg/dL 8 4:01 PM [facility] ALKALINE PHOSPHATASE 55 40 - 129 U/L 03/14/2018 4:01 PM [facility] AST 21 <40 U/L 03/14/2018 4:01 PM [facility] ALT 9 4 - 41 U/L 03/14/2018 4:01 PM [facility] GFR >60 >=60 mL/min/1.7 3 sq meter 03/14/2018 4:01 PM [facility] Comment: eGFR has not been validated for [...] GFR, >60 >=60 mL/min/1.7 3 sq meter 03/14/2018 4:01 PM [facility] ANION GAP 8 8 - 16 mmol/L 03/14/2018 4:01 PM [facility] Blood Venipuncture / Unknown 03/14/2018 3:17 PM SE[employer] PACKAGE HANDLER 03/14/2018 3:28 PM SEASONAL PACKAGE HANDLER Almita Smallwood MD CHEMISTRY ORDERA BLEAlessia [facility] CLIA# [id number] [address] [place] [address] * (ABNORMAL) CBC WITH DIFFERENTIAL (03/14/2018 3:17 PM SEASONAL PACKAGE HANDLER) WBC 4.2 4.0 - 9.8 K/uL 03/14/2018 3:31 PM [facility] RBC 3.66(L) 3.90 - 4.90 M/uL 03/14/2018 3:31 PM [facility] HEMOGLOBIN 11.4(L) 11.8 - 14.8 g/dL 03/14/2018 3:31 PM [facility] HEMATOCRIT 35.4(L) 35.5 - 44.0 % 03/14/2018 3:31 PM [facility] MCV 96.7 82.0 - 99.0 fL 03/14/2018 3:31 PM [facility] MCH 31.1 27.2 - 32.6 pg 03/14/2018 3:31 PM [facility] MCHC 32.2 30.0 - 37.0 g/dL 03/14/2018 3:31 PM [facility] RDW 12.7 11.5 - 14.5 % 03/14/2018 3:31 PM [facility] RDW-STDEV 42.7 37.0 - 54.0 fL 03/14/2018 3:31 PM [facility] PLATELETS 166 140 - 350 K/uL 03/14/2018 3:31 PM [facility] MPV 9.1 9.0 - 13.0 fL 03/14/2018 3:31 PM [facility] NEUTROPHILS 62 45 - 70 % 03/14/2018 3:31 PM [facility] LYMPHOCYTES 29 16 - 45 % 03/14/2018 3:31 PM [facility] MONOCYTES 8 3 - 13 % 03/14/2018 3:31 PM [facility] EOSINOPHILS 1 <7 % 03/14/2018 3:31 PM [facility] BASOPHILS 1 <3 % 03/14/2018 3:31 PM [facility] NEUTROPHIL ABSOLUTE 2.63 1.90 - 7.00 K/uL 03/14/2018 3:31 PM [facility] LYMPHOCYTE ABSOLUTE 1.21 0.70 - 4.50 K/uL 03/14/2018 3:31 PM [facility] MONOCYTE ABSOLUTE 0.35 0.10 - 1.30 K/uL 03/14/2018 3:31 PM [facility] EOSINOPHIL ABSOLUTE 0.03 <0.80 K/uL 03/14/2018 3:31 PM [facility] BASOPHILS ABSOLUTE 0.02 <0.30 K/uL 03/14/2018 3:31 PM [facility] Blood Venipuncture / Unknown 03/14/2018 3:17 PM SE[employer] P[employer]AGE HANDLER 03/14/2018 3:28 PM SEASONAL PACKAGE HANDLER Almita Smallwood MD HEMATOLOGY ORDER MANUEL Performing Organization Address City/State/[facility] Co de Phone Number [facility] CLIA# [id number] [address] [place] [address] documented in this encounter Visit Diagnoses Diagnosis Encounter for medical examination to establish care- Primary Need for Tdap vaccination Need for prophylactic vaccination with combined aasiezildl-bwyiqse-ifmygsxjp (DTP) vaccine Lipoma of back Lipoma of other specified sites Right elbow pain Pain in joint, upper arm Dizzinesses 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 breast documented in this encounter Additional Health Concerns Assessment Noted Time PHQ-9 Depression Total Score: 1 03/14/20 18 3:00 PM SE[employer]ONAL PACKAGE HANDLER documented as of this encounter Care Teams Telegrapher Agent Relationship Specialty Start Date End Date Almita Smallwood MD [address] [place], [place] [address] PCP - General Internal Medicine 03/14/18 documented as of this encounter
--- OUTSIDE RECORDS SUMMARY | 2024-04-21 12:29 | XMS_ITS | Encounter Summary ---
Author Organization [facility] Address [address] [place] [address] Care Team Providers Care Kettle Coordinator Name Role Phone Almita Smallwood MD Primary Care Provider + Encounter Details Date Type Department Care Team (Late st Contact Info) Description 06/30/2018 Orders Only [facility] BREAST SURGERY [address] [place] [address] Provider, Abstract NO ADDRESS ON [...] Name Priority Date/Time Associated Diagnosis Comments MAMMO SCRN TO DIAG UNI RIGHT Routine 06/21/2018 documented in this encounter Results * MAMMO SCRN TO DIAG UNI RIGHT (06/21/2018) Anatomical Region Laterality Modality Breast Other Abstract Provider MAMMO ORDERABLES documented in this encounter Visit Diagnoses Not on filedocumented in this encounter Additional Health Concerns Assessment Noted Time PHQ-9 Depression Total Score: 1 03/14/20 18 3:00 PM DOWNSTREAM BIOMANUFACTURING TECHNICIAN documented as of this encounter Care Teams Kettle Coordinator Relationship Specialty Start Date End Date Almita Smallwood MD [address] [place] [address] PCP - General Internal Medicine 03/14/18 documented as of this encounter
--- OUTSIDE RECORDS SUMMARY | 2024-04-21 12:29 | XMS_ITS | Encounter Summary ---
Author Organization [facility] Address [address] [place] [address] Care Team Providers Care City Dispatch Supervisor Name Role Phone Almita Smallwood MD Primary Care Provider + Encounter Details Date Type Department Care Team (Latest Contact Info) Description 06/21/2018 1:30 PM PURCHASING CLERK - 06/21/2018 11:59 PM PURCHASING CLERK Hospital Encounter [facility] [place] [facility] [address] [place] [address] [facility], External Provider [address] [place] [address] Discharge Disposition: Home or Self Care Social [...] Sig Dispensed Refills Start Date End Date TURMERIC ORAL Take by mouth. tamoxifen (NOLVADEX) 20 mg tablet TAKE 1 TABLET DAILY 90 Tablet 4 05/26/2018 07/25/2018 documented as of this encounter Plan of Treatment Not on file documented as of this encounter Procedures Procedure Name Priority Date/Time Associated Diagnosis Comments MAMMO PRIOR STUDY Routine 06/21/2018 1:3 0 PM PURCHASING CLERK Follow up documented in this encounter Results * MAMMO PRIOR STUDY (06/21/2018 1:30 PM PURCHASING CLERK) Narrative 03/04/2020 1:30 PM PURCHASING CLERK This exam was auto finalized to allow images to be scanned to PACS. External Provider [facility] DIAGNOSTIC IMAGI NG ORDERABLES documented in this encounter Visit Diagnoses Diagnosis Follow up documented in this encounter Additional Health Concerns Assessment Noted Time PHQ-9 Depression Total Score: 1 03/14/20 18 3:00 PM PURCHASING CLERK documented as of this encounter Care Teams City Dispatch Supervisor Relationship Specialty Start Date End Date Almita Smallwood MD [address] [place] [address] PCP - General Internal Medicine 03/14/18 documented as of this encounter
--- OUTSIDE RECORDS SUMMARY | 2024-04-21 12:29 | XMS_ITS | Encounter Summary ---
Author Organization [facility] Address [address] [place] [address] Care Team Providers Care Ripsaw Grader Name Role Phone José Guzman MD Primary Care Provider [phone] Encounter Details Date Type Department Care Team (Late st Contact Info) Description 06/08/2017 Chart Note [facility] Oncology and Hematology - [place] [address] [facility] [address] [place] [address] Jacek Laura MD [address] [facility] [address] [place] [address] Social History Tobacco Use Types Packs/Day Years Used Date Smoking Tobacco: Former Cigarettes 2 20 0 01/07/1985 - 01/07/2005 Alcohol Use Standard Drinks/Week Comments Yes 0 (1 standard drink = 0.6 oz pur e alcohol) occasional Sex and Gender Information Value Date Recorded Sex Assigned at Not on file Gender Identity Not on file Sexual Orientation Not on file documented as of this encounter Progress Notes * Marielos Leonardo - 06/08/2017 3:46 PM CST Patient called in regarding taking Growth Hormone Serovital - per Dr mcqueen there is not any documented research confirming or denying any side effects or 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
--- OUTSIDE RECORDS SUMMARY | 2024-04-21 12:29 | XMS_ITS | Encounter Summary ---
Author Organization [facility] Address [address] [place] [address] Care Team Providers Care Ornamenter Name Role Phone José Guzman MD Primary Care Provider [phone] Reason for Visit * Reason Comments Follow Up Encounter Details Date Type Department Care Team ([facility] Contact Info) Description 03/08/2017 9:15 AM PARKING ASSISTANT Office Visit [facility] Oncology and Hematology [facility] [address] [facility] [address] [place] [address] Jacek Laura MD [address] [facility] [address] [place] [address] 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 breast (Primary Dx) Social History [...] Sign Reading Time Taken Comments Blood Pressure 136/70 03/08/2017 9:35 AM PARKING ASSISTANT Pulse 79 03/08/2017 9:35 AM PARKING ASSISTANT Temperature 36.9 ??C (98.4 ??F) 03/08/2017 9:35 AM CS T Respiratory Rate 16 03/08/2017 9:35 AM PARKING ASSISTANT Oxygen Saturation - - Inhaled Oxygen Concentration - - Weight 65.8 kg (145 lb) 03/08/2017 9:35 AM PARKING ASSISTANT Height 167.6 cm (5' 6 ) 03/08/2017 9:35 AM PARKING ASSISTANT Body Mass Index 23.4 03/08/2017 9:35 AM PARKING ASSISTANT documented in this encounter Progress Notes * Jacek Laura MD - 03/08/2017 9:55 AM CST HEMATOLOGY / ONCOLOGY PROGRESS NOTE Patient Identification: Name: Lisa Hermosillo Age: 57 y.o. Sex: female : 1960 Subjective: HPI This is a pleasant 56-year-old postmenopausal female who was found to have left breast calcification on a routine yearly mammogram done in September 2016. Patient had bilateral breast MRI done on November 05, 2016 that showed multiple T2 hyperintense lesion in the right breast no suspicious mass and minimal enhancement in the region of the clip corresponding to the recent biopsy-proven DCIS on the left breast with multiple T2 hyperintense lesion without any abnormality in the left axilla. On November 22 patient have partial mastectomy done that only showed DCIS grade 12 mm in size with clear margins. She is recovering well from the surgery. Denies any chest pain shortness of breath and abdominal pain. No bleeding and bruising. No new lumps and bumps and lymphadenopathy. Patient was on hormone replacement therapy for 2 years prior to the diagnosis of DCIS which has been discontinued. ?? Interval History: Patient is started taking tamoxifen about a month ago in January 2017. Review of system Constitutional: No fever; no night sweats; no anorexia; no weight loss; no fatique Respiratory: No shortness of breath; no pleuritic chest pain; no cough; no hemoptysis Cardiac: No cardiac-like chest pain; no palpitations; no orthopnea; no PND; no CABRALES GI: No abdominal pain; no nausea; no vomiting; no diarrhea; no hematochezia; no melena Musculosketetal: no bone pain; no arthralgia; no joint swelling; no myalgia; Neuro: No headache; no change in vision; no sensory changes; no muscle weakness; no confusion; no seizures Ext no edema Objective: Vital signs in last 24 hours: As per nursing note Exam: Gen: NAD Lungs: Clear Cardiac: S1 and S2 without murmurs or gallops Abd: Soft, tender, no hepatomegally, no masses Extr: No LE edema Bilateral breast examination showed no evidence of masses and lymphadenopathy. There are some cystic areas and bilateral breast. Scheduled Meds:@MEDSSCHEDULED@ Continuous Infusions:@MEDSINFUSIONS@ Data Review: [facility] @IMAGEIMP@ Assessment: Plan: Patient Active Problem List Diagnosis Date Noted ??? 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 Oncotype DX for DCIS showed a score of zero with no benefit from the radiation therapy. Patient started taking tamoxifen in January 2017 and has been tolerating it fairly well. There is no evidence of relapse of disease on my examination. She will have mammogram of the left breast done on 2017. I will see her back in 3 months as well. Patient will receive a refill on tamoxifen. Hot flashes. I will discontinue Paxil due to drug interaction and is start her on Effexor. ? 03/08/2017 Jacek Laura MD ING ASSISTANT documented in this encounter Plan of Treatment Not on file documented as of this encounter Visit Diagnoses Diagnosis 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 breast- Primary documented in this encounter Care Teams Ornamenter Relationship Specialty Start Date End Date José Guzman MD [address] [place] [address] PCP - General Family Practice 01/07/17 03/13/18 documented as of this encounter
--- OUTSIDE RECORDS SUMMARY | 2024-04-21 12:29 | XMS_ITS | Encounter Summary ---
Author Organization [facility] Address [address] [place] [address] Care Team Providers Care Director Of Research Center Name Role Phone José Guzman MD Primary Care Provider [phone] Reason for Visit * Reason Comments Follow Up Encounter Details Date Type Department Care Team ([facility] Contact Info) Description 06/08/2017 10:00 AM GASOLINE PUMP INSTALLER Office Visit [facility] Oncology and Hematology - [place] [address] [facility] [address] [place] [address] Jacek Laura MD [address] [facility] [address] [place] [address] Ductal carcinoma in situ (DCIS) [...] Sign Reading Time Taken Comments Blood Pressure 147/81 06/08/2017 10:18 AM GASOLINE PUMP INSTALLER Pulse 74 06/08/2017 10:18 AM GASOLINE PUMP INSTALLER Temperature 36.7 ??C (98 ??F) 06/08/2017 10:18 AM GASOLINE PUMP INSTALLER Respiratory Rate 16 06/08/2017 10:18 AM GASOLINE PUMP INSTALLER Oxygen Saturation 94% 06/08/2017 10:18 AM GASOLINE PUMP INSTALLER Inhaled Oxygen Concentration - - Weight 67.6 kg (149 lb) 06/08/2017 10:18 AM GASOLINE PUMP INSTALLER Height 167.6 cm (5' 6 ) 06/08/2017 10:18 AM GASOLINE PUMP INSTALLER Body Mass Index 24.05 06/08/2017 10:18 AM GASOLINE PUMP INSTALLER documented in this encounter Progress Notes * Jacek Laura MD - 06/08/2017 12:36 PM CST HEMATOLOGY / ONCOLOGY PROGRESS NOTE [...] about a month ago in January 2017. Right-sided mammogram was done on May 26, 2017. Review of system Constitutional: No fever; no night sweats; no anorexia; no weight loss; no fatique , complain of hot flashes but under control Respiratory: No shortness of breath; no pleuritic [...] showed no evidence of masses and lymphadenopathy. Cystic areas are noted in the right breast at 11:00 and 12:00 position. Scheduled Meds:@MEDSSCHEDULED@ Continuous Infusions:@MEDSINFUSIONS@ Data Review: [facility] @IMAGEIMP@ Assessment: Plan: Patient Active Problem List Diagnosis Date Noted ??? 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 Oncotype DX for DCIS showed a score of zero with no benefit from the radiation therapy. Patient started taking tamoxifen in January 2017 and has been tolerating it fairly well. There is no evidence of relapse of disease on my examination.There are cystic areas noted in the right breast. Patient is going to have right breast biopsy done by Dr. Thorpe. I have reviewed the mammogram done on May 26. Patient will have a repeat bilateral diagnostic mammogram in October 2017. Patient will be back to see me in 3 months. oxifen. Hot flashes. Patient will continue Effexor 37.5 mg twice a day. ? 06/08/2017 Jacek Laura MD LINE PUMP INSTALLER documented in this encounter Plan of Treatment Not on file documented as of this encounter Visit Diagnoses Diagnosis 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 breast- Primary documented in this encounter Care Teams Director Of Research Center Relationship Specialty Start Date End Date José Guzman MD [address] [place] [address] PCP - General Family Practice 01/07/17 03/13/18 documented as of this encounter
--- OUTSIDE RECORDS SUMMARY | 2024-04-21 12:29 | XMS_ITS | Encounter Summary ---
Author Organization [facility] Address [address] [place] [address] Care Team Providers Care Sports Health Club Membership Advisors Name Role Phone José Guzman MD Primary Care Provider [phone] Encounter Details Date Type Department Care Team ([facility] st Contact Info) Description 11/21/2017 Orders Only [facility] Oncology and Hematology - [place] [address] [facility] [address] [place] [address] Jacek Laura MD [address] [facility] [address] [place] [address] Ductal carcinoma in situ (DCIS) [...] Name Priority Date/Time Associated Diagnosis Comments MAMMO SCREEN BILAT W OR WO CAD Routine 10/21/2017 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 breast documented in this encounter Results * MAMMO SCREEN BILAT W OR WO CAD (10/21/2017) Anatomical Region Laterality Modality Breast Bilateral Other Jacek Laura MD MAMMO ORDERABLES documented in this encounter Visit Diagnoses Diagnosis 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 breast documented in this encounter Care Teams Sports Health Club Membership Advisors Relationship Specialty Start Date End Date José Guzman MD [address] [place] [address] PCP - General Family Practice 01/07/17 03/13/18 documented as of this encounter
--- OUTSIDE RECORDS SUMMARY | 2024-04-21 12:29 | XMS_ITS | Encounter Summary ---
Author Organization [facility] Address [address] [place] [address] Care Team Providers Care Translation Director Name Role Phone Almita Smallwood MD Primary Care Provider + Reason for Referral * Eval and Treat (2-4 Days) - Closed Specialty Diagnoses / Procedures Referred By Tati campos Referred To Contact Nutrition Diagnoses Proteins serum plasma low Almita Smallwood MD [address] [place] [address] Joana Hollis, RD [address] [place] [address] Referral ID Status Reason Start Date Expiration Date V isits Requested Visits Authorized [id number] Closed CRS To Schedule (STL) 03/21/2018 03/22/[address] LIGHT Reason for Visit * Reason Onset Date Comments Results 03/20/2018 Encounter Details Date Type Department Care Team (Late st Contact Info) Description 03/20/[address] [facility] Internal Medicine - [facility] [address] [place] [address] Almita Smallwood MD [address] [place] [address] Results Social History Tobacco Use [...] Miscellaneous Notes * Addendum Note - Emiliano Leary RN - 03/21/2018 3:16 PM CSTAddended by: EMILIANO LEARY on: 03/21/2018 03:16 PM Modules accepted: Orders [address] LIGHT * Telephone Encounter - Emiliano Leary RN - 03/21/2018 3:15 PM CST Pt called back and states wants to do Pound Attendant referral for low protein,Referral placed per Dr Smallwood's orders.Pt aware [facility] will call her to schedule appt. [address] LIGHT * Telephone Encounter - Emiliano Leary RN - 03/20/2018 10:33 AM CST Pt called per Dr Smallwood's orders and overall her blood work is normal,Vitamin D level and liver tests and electrolytes are normal.Pt aware her Kidney test was borderline elevated but there is nothing todo for now aside from staying hydrated and pushing plenty of water and avoid prolonged use of NSAID'S.Pt verbalizes understanding.Pt aware her Blood counts and her protein were borderline low but very mild.Pt aware Dr Smallwood recommends pt increases protein in her diet and we can refer her to knuckle bender.Pt states she will increase Protein in her diet doesn't need to see Pound Attendant.Pt aware her Blood counts being borderline low is consistent with very mild anemia but as it is normocytic not microcyticlow suspicion for Iron Def.Pt aware per Dr Smallwood she is up to date on Colonoscopy which is important and needs CBC and CMP in three months.Pt aware and will call back to schedule lab appt in 3 months for CBC and CMP.Pt states had episode of dizziness day after she saw Dr Smallwood states her head and ears felt full and her sinuses so she took a Sudafed and felt better.Pt will call if dizziness persist orgets worse.Dr Smallwood aware. [address] LIGHT * Telephone Encounter - Emiliano Leary RN - 03/20/2018 10:32 AM CST ----- Message from Almita Smallwood MD sent at 03/20/2018 10:[address] LIGHT ----- Please call patient with following results. Overall blood work normal, vitamin D level, liver tests, electrolytes all normal. Her kidney test was borderline elevated, but there is nothing else to do for now aside from stay hydrated with plentyof water and avoid prolonged use of NSAIDs. Her protein and blood counts were also borderline low, but very mild. Recommend she increase protein in her diet, we can refer to knuckle bender if she is interested. Her blood counts being borderline low is consistent with very mild anemia, but as it is normocytic (not microcytic) low suspicion for iron deficiency. She is up to date with her colonoscopy which is important. Recommend we repeat these blood tests (CBC, CMP) in three months to follow up on them. [address] LIGHT documented in this encounter Plan of Treatment Scheduled Referrals Name Type Priority Associated Diagnoses Orde r Schedule AMB REFERRAL TO BODY FORMER Outpatient Referral Routine Proteins serum plasma low Ordered: 03/21/2018 documented as of this encounter Visit Diagnoses Diagnosis Proteins serum plasma low- Primary Other disorders of plasma protein metabolism documented in this encounter Additional Health Concerns Assessment Noted Time PHQ-9 Depression Total Score: 1 03/14/20 18 3:[address] LIGHT documented as of this encounter Care Teams Translation Director Relationship Specialty Start Date End Date Almita Smallwood MD [address] [place] [address] PCP - General Internal Medicine 03/14/18 documented as of this encounter
--- OUTSIDE RECORDS SUMMARY | 2024-04-21 12:29 | XMS_ITS | Encounter Summary ---
Author Organization [facility] Address [address] [place] [address] Care Team Providers Care Station Chief Name Role Phone José Guzman MD Primary Care Provider [phone] Reason for Referral * Outpatient Services (Routine) - Closed Specialty Diagnoses / Procedures Referred By Tati campos Referred To Contact Diagnoses Osteoporosis screening Procedures XR DEXA BONE DENSITY AXIAL 1 OR MORE SITES Laverne Thorpe DO NO ADDRESS ON FILE [address] [address] Referral ID Status Reason Start Date Expiration Date Visits Requested Visits Authorized [id number] Closed Ordering Department To Schedule 09/15/2017 10/16/2018 1 1 Reason for Visit * Reason Comments Follow Up Encounter Details Date Type Department Care Team (Late st Contact Info) Description 09/15/2017 3:30 PM CDT Office Visit [facility] BREAST SURGERY [place] [address], [address] [address] Laverne Thorpe DO NO ADDRESS ON FILE Osteoporosis screening (Primary Dx); 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 breast; Estrogen receptor positive status (ER+); SERM use (selective estrogen receptor modulator) Social [...] Sign Reading Time Taken Comments Blood Pressure 123/77 09/15/2017 3:21 PM CDT Pulse 70 09/15/2017 3:21 PM CDT Temperature 36.9 ??C (98.4 ??F) 09/15/2017 3:21 PM CD T Respiratory Rate - - Oxygen Saturation 96% 09/15/2017 3:21 PM CDT Inhaled Oxygen Concentration - - Weight 68.3 kg (150 lb 8 oz) 09/15/2017 3:21 PM CDT Height 167.6 cm (5' 6 ) 09/15/2017 3:21 PM CDT Body Mass Index 24.29 09/15/2017 3:21 PM CDT documented in this encounter Progress Notes * Laverne Thorpe, DO - 09/15/2017 3:22 PM CDT Chief Complaint Patient presents with ??? Follow Up Subjective: Pt is here for follow-up. She states that she is experiencing no complaints referable to her breasts at this time. She states that she is doing much better taking her tamoxifen, and although she does not always take it at same time every day, she does take it every day. She is frustrated at her weight, realizing that she has gained about 10 pounds in the last 8 months. Her most recent vitamin D level was 57 ng/mL, which was done in May 2017 PROCEDURE(s): 01/2011: Left breast USG bx Pathology: no atypia, UDH, duct ectasia 10/27/2016: left breast stereotactic biopsy Pathology: Ductal carcinoma in situ, grade 1 11/22/2016: Left, Partial Mastectomy Pathology: Ductal carcinoma in situ, grade 1 06/08/2017: right, breast, ultrasound-guided core biopsy Pathology: No atypia, focal fibrosis, sclerosing adenosis, benign FHx paternal aunt BC dx 80, passed 82, no ovarian cancer, mother colon ca dx 59, passed 61; sister colon ca dx 54, alive 59 Menarche 15 menopause 54 natural FFTB 22 no breast feeding OCPs 3 months, HRT >1 yr; stopped with dx in 2017 34A 146# 5'6 No Ashkenazi heritage Former smoker quit 2005 smoked 39 yrs 2ppd No Known Allergies Current Outpatient Prescriptions: ??? collagen, bovine, 100 % Powder, Apply to affected area daily., Disp: , Rfl: ??? tamoxifen (NOLVADEX) 20 mg tablet, Take 1 Tablet (20 mg) by mouth daily., Disp: 90 Tablet, Rfl:4 ??? venlafaxine (EFFEXOR) 37.5 mg tablet, Take 1 Tablet (37.5 mg) by mouth late in the day., Disp: 30 Tablet, Rfl: 1 ROS: Constitutional: Negative for fever, weight loss and malaise/fatigue. Respiratory: Negative for cough. Cardiovascular: Negative for chest pain and leg swelling. Gastrointestinal: Negative for abdominal pain. Genitourinary: Negative for dysuria. Musculoskeletal: Negative for myalgias and joint pain. Skin: Negative for rash. Neurological: Negative for dizziness and headaches. Psychiatric/Behavioral: Negative for depression Female: OB History Para Term AB Living 3 2 2 2 SAB TAB Ectopic Multiple Live Births Obstetric Comments Bra size 34A. Menarche at age 15. LMP at age 54. The remainder of the review of systems including cardiovascular, pulmonary, GI/, neurologic, and endocrine are negative except as noted above. Immunizations: non-contributory PHYSICAL EXAM: BP 123/77 (BP Location: Right arm, Patient Position (BP): Sitting, BP Cuff Size: Adult) Pulse 70 Temp 98.4 ??F (36.9 ??C) (Oral) Ht 5' 6 (1.676 m) Wt 68.3 kg (150 lb 8 oz) LMP 09/15/2014 (Within Months) SpO2 96% ? No BMI 24.29 kg/m?? Breasts: no cervical, supraclavicular, axillary lymphadenopathy. Breast symmetry: symmetric Other findings: The patient was examined in the seated and supine positions today. The surgical scar at the left lower outer areola is healing very nicely and is barely visible. There are no skin changes, and no palpable abnormalities. The nipples are normal, everted and without discharge. General: well-developed, well-nourished HEENT: normocephalic/atraumatic. Extra-occular movements [...] 1, focal LCIS and columnar cell hyperplasia Biomarkers: Estrogen Receptor greater than 90%, positive; progesterone Receptor greater than 90%, positive; her2 not done; ki67 not done Tumor Size: 2 mm with focal LCIS and columnar cell hyperplasia Lymph nodes involved/ how many removed: Not done Lymphovascular invasion: no Extracapsular extension: no Other notes: Patient did not have radiation therapy. She started tamoxifen in December 2016, but frequently forgets. Most recent imaging: Left breast mammogram May 26, 2017, BI-RADS 2 Future imaging: Bilateral breast mammogram November 2017 ASSESSMENT AND PLAN: Encounter Diagnoses Name Primary? Osteoporosis screening Yes ??? 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 breast ??? Estrogen receptor positive status (ER+) ??? SERM use (selective estrogen receptor modulator) The patient tells me that she currently has a mammogram ordered for October, and although she is trulydue in November, we can certainly have this done one month sooner. She also would like to have a bonescan done, stating that she has not had one in many years. She had a an order from her cardiology tech, but this . I will give her an order today, so that she can have the mammogram and bone density scan done on the same day. I will see her back once those studies are done. I congratulated the patient on remembering to take her tamoxifen daily. I recognize that this was difficult for her. She is doing much better, and I encouraged her to continue the same. She also willcontinue her follow-ups with Dr. Laura. We had a very long discussion about her eating patterns and possible strategies for weight loss. Wediscussed that diet is a much larger part of weight control than exercise. I explained that sugar is hidden in most processed foods, and she really needs to be cognizant of looking at nutritional labels. We also discussed increasing her vegetable intake. The patient states she has downloaded and jayne to keep track of her calories, and she is looking forward to starting to use this. Finally, we discussed inflammatory foods such as dairy. The patient was surprised to learn of this. Questions were solicited and fully answered. Patient stated understanding. documented in this encounter Plan of Treatment Not on file documented as of this encounter Results * XR DEXA BONE DENSITY AXIAL 1 OR MORE SITES (10/21/2017) Anatomical Region Laterality Modality Other Laverne Thorpe DO DIAGNOSTIC IMAGING ORDERABLES documented in this encounter Visit Diagnoses Diagnosis Osteoporosis screening- Primary Special screening for osteoporosis 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 breast Estrogen receptor positive status (ER+) Estrogen receptor positive status [ER+] SERM use (selective estrogen receptor modulator) Use of selective estrogen receptor modulators (SERMs) documented in this encounter Care Teams Station Chief Relationship Specialty Start Date End Date José Guzman MD [address] [place] [address] PCP - General Family Practice 01/07/17 03/13/18 documented as of this encounter
--- OUTSIDE RECORDS SUMMARY | 2024-04-21 12:29 | XMS_ITS | Encounter Summary ---
Author Organization [facility] Address [address] [place] [address] Care Team Providers Care Web Project Manager Name Role Phone José Guzman MD Primary Care Provider [phone] Encounter Details Date Type Department Care Team (Late st Contact Info) Description 10/03/2017 Orders Only [facility] BREAST SURGERY [place] [address], [facility] [address] [place] [address] Provider, Abstract NO ADDRESS ON [...] Name Priority Date/Time Associated Diagnosis Comments VITAMIN D 25 HYDROXY Routine 06/15/2017 documented in this encounter Results * VITAMIN D 25 HYDROXY (06/15/2017) Blood Abstract Provider CHEMISTRY ORDERABLES [facility] documented in this encounter Visit Diagnoses Not on filedocumented in this encounter Care Teams Web Project Manager Relationship Specialty Start Date End Date José Guzman MD [address] [place] [address] PCP - General Family Practice 01/07/17 03/13/18 documented as of this encounter
--- OUTSIDE RECORDS SUMMARY | 2024-04-21 12:29 | XMS_ITS | Encounter Summary ---
Author Organization [facility] Address [address] [place] [address] Care Team Providers Care Bridge Builder Name Role Phone Almita Smallwood MD Primary Care Provider + Reason for Visit * Reason Comments Follow Up Encounter Details Date Type Department Care Team ([facility] Contact Info) Description 06/21/2018 9:30 AM MANAGER EQUIPMENT Office Visit [facility] Oncology and Hematology - [place] [address] [facility] [address] [place] [address] Jacek Laura MD [address] [facility] [address] [place] [address] Ductal carcinoma in situ (DCIS) [...] Sign Reading Time Taken Comments Blood Pressure 110/66 06/21/2018 9:42 AM MANAGER EQUIPMENT Pulse 64 06/21/2018 9:42 AM MANAGER EQUIPMENT Temperature 36.8 ??C (98.2 ??F) 06/21/2018 9:42 AM CS T Respiratory Rate - - Oxygen Saturation 98% 06/21/2018 9:42 AM MANAGER EQUIPMENT Inhaled Oxygen Concentration - - Weight 66.7 kg (147 lb) 06/21/2018 9:42 AM MANAGER EQUIPMENT Height 167.6 cm (5' 6 ) 06/21/2018 9:42 AM MANAGER EQUIPMENT Body Mass Index 23.73 06/21/2018 9:42 AM MANAGER EQUIPMENT documented in this encounter Progress Notes * Jacek Laura MD - 06/21/2018 10:42 AM CST HEMATOLOGY / ONCOLOGY PROGRESS NOTE Patient Identification: Name: Lisa Hermosillo Age: 58 y.o. Sex: female : 1960 Subjective: HPI This is a pleasant 58-year-old postmenopausal female who was found to have [...] mammogram was done on May 26, 2017. Patient had biopsy of right breast lesion done in May came back benign. Review of system Constitutional: No fever; no [...] the right breast at 11:00 and 12:00 position remains unchanged. Right nipple also is inverted. Scheduled Meds:@MEDSSCHEDULED@ Continuous Infusions:@MEDSINFUSIONS@ Data Review: [facility] Labs from June 21 showed WBC 4.2 hemoglobin 10.6 platelet 150,000 creatinine 1.1 @IMAGEIMP@ Assessment: Plan: Patient Active Problem List Diagnosis Date Noted ??? Estrogen receptor positive status (ER+) 09/15/2017 ??? SERM use (selective estrogen receptor modulator) 09/15/2017 ??? Osteoporosis screening 09/15/2017 ??? 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 breast 01/07/2017 Ductal carcinoma in situ grade 1 micropapillary type without comedonecrosis 2 mm in the greatest dimension not involving margins status post upper outer left breast partial mastectomy done on November 22, 2016 ER/CA strongly positive. Oncotype DX for DCIS showed a score of zero with no benefit from the radiation therapy. Patient started taking tamoxifen in January 2017 and has been tolerating it fairly well. Due to inverted right nipple mammogram has been ordered by Dr. Thorpe. Mammogram done in October 2017 came back unremarkable. I will see her back in 6 months. Bone health. Bone density done in October 2017 also came back normal. Patient is on multivitamin. Hot flashes. Effexor was prescribed.Patient is not taking it has her heart flashes is not botheringher too much. ? 06/21/2018 Jacek Laura MD GER EQUIPMENT documented in this encounter Plan of Treatment Scheduled Orders Name Type Priority Associated Diagnoses Orde r Schedule COMPREHENSIVE METABOLIC PANEL Lab Routine 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 breast Expected: 12/20/2018, Expires: 06/21/2019 CBC WITH DIFFERENTIAL Lab Routine 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 breast Expected: 12/20/2018, Expires: 06/21/2019 documented as of this encounter Visit Diagnoses Diagnosis 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 breast- Primary documented in this encounter Additional Health Concerns Assessment Noted Time PHQ-9 Depression Total Score: 1 03/14/20 3:00 PM MANAGER EQUIPMENT documented as of this encounter Care Teams Bridge Builder Relationship Specialty Start Date End Date Almita Smallwood MD [address] [place] [address] PCP - General Internal Medicine 03/14/18 documented as of this encounter
--- OUTSIDE RECORDS SUMMARY | 2024-04-21 12:29 | XMS_ITS | Encounter Summary ---
Author Organization [facility] Address [address] [place] [address] Care Team Providers Care Grinder Set Up Operator Gear Tool Name Role Phone José Guzman MD Primary Care Provider [phone] Reason for Visit * Reason Comments Establish Care Encounter Details Date Type Department Care Team ([facility] Contact Info) Description 01/07/2017 10:30 AM CDT Office Visit [facility] Oncology and Hematology - [place] [address] [facility] [address] [place] [address] Jacek Laura MD [address] [facility] [address] [place] [address] Ductal carcinoma in situ (DCIS) [...] Sign Reading Time Taken Comments Blood Pressure 139/81 01/07/2017 10:53 AM CDT Pulse 65 01/07/2017 10:53 AM CDT Temperature 36.6 ??C (97.9 ??F) 01/07/2017 1 0:53 AM CDT Respiratory Rate 16 01/07/2017 10:5 3 AM CDT Oxygen Saturation - - Inhaled Oxygen Concentration - - Weight 63.8 kg (140 lb 11.2 oz) 017 10:53 AM CDT Height 167.6 cm (5' 6 ) 01/07/2017 10:5 3 AM CDT Body Mass Index 22.71 01/07/2017 10:53 AM CDT documented in this encounter Progress Notes * Jacek Laura MD - 01/07/2017 11:19 AM CDT Hematology-oncology consult Note Requesting Physician Laverne Thorpe DO Primary Care Physician José Guzman MD Problem list Patient Active Problem List Diagnosis Code ??? 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 breast D05.12 Previous TREATMENT ? Measurable Disease ? Reason for Visit Lisa Hermosillo is a 56 y.o. female who was referred for consultation for Ductal carcinoma in situ. History of present illness This is a pleasant 56-year-old postmenopausal female [...] diagnosis of DCIS which has been discontinued. Past Medical History Past Medical History: Diagnosis Date ??? Breast cancer Renal stone Surgical History Past Surgical History: Procedure Laterality Date ??? HX MASTECTOMY, PARTIAL 11/2016 ??? LITHOTRIPSY 03/2015 Medications Current Outpatient Prescriptions Medication Sig Dispense Refill ??? PARoxetine HCl (PAXIL) 10 mg tablet Take 10 mg by mouth daily. No current facility-administered medications for this visit. Allergies No Known Allergies Immunizations: There is no immunization history on file for this patient. Family History Family History Problem Relation Age of Onset ??? Cancer Father ??? Colon Cancer Mother ??? Other Sister ??? Heart Disease Brother ??? Healthy Brother ??? No Known Problems Sister ??? Healthy Sister ??? No Known Problems Sister ??? No Known Problems Sister ??? Colon Cancer Sister ??? No Known Problems Sister ??? No Known Problems Sister Father of leukemia. Mother of colon cancer. One aunt and grandmother also had breast cancer. Patient has total of 8 sisters and 2 brothers. Social History Social History Substance Use Topics ??? Smoking status: Former Smoker Packs/day: 2.00 Years: 20.00 Types: Cigarettes Quit date: 01/07/2005 ??? Smokeless tobacco: Not on file ??? Alcohol use Yes Comment: occasional Review of Systems Constitutional: No fever; no night sweats; no anorexia; no weight loss; no fatique NEENT: No headache; no change in vision; no change in hearing; no sore throat; no dysphagia Respiratory: No shortness of breath; no pleuritic chest pain; no cough; no hemoptysis Cardiac: No cardiac-like chest pain; no palpitations; no orthopnea; no PND; no CABRALES Breasts: No tenderness; no masses GI: No abdominal pain; no nausea; no vomiting; no diarrhea; no hematochezia; no melena : No dysuria; no frequency; no hesitancy; no hematuria SKI PATROL: Musculosketetal: no bone pain; no arthralgia; no joint swelling; no myalgia; Skin: no pruritis; no rash; no petechiae; no ecchymoses Endocrine: no polydipsia; no polyuria; no unusual weight gain Neuro: No headache; no change in vision; no sensory changes; no muscle weakness; no confusion; no seizures Psych: no anxiety; no depression; Physical Exam Vitals: As per nursing note Constitutional: Well developed, well nourished, no acute distress, non-toxic appearance Teeth and gum. No signs of infection or swelling. Eyes: PERRL, conjunctiva normal HEENT: Atraumatic, external ears normal, nose normal, oropharynx moist, no pharyngeal exudates. no sinus tenderness Neck- normal range of motion, no tenderness, supple Respiratory: No respiratory distress, normal breath sounds, no rales, no wheezing Breasts: Bilateral fibrocystic breast with cysts identified at 11:00 position in the left breast. Surgical scar healing well. No axillary lymphadenopathy. Cardiovascular: Normal rate, normal rhythm, no murmurs, no gallops, no rubs GI: Soft, nondistended, normal bowel sounds, nontender, no splenomegaly, no hepatomegaly, no mass, no rebound, no guarding : No costovertebral angle tenderness Musculoskeletal: No edema, no tenderness, no deformities. Back- no tenderness Integument: Well hydrated, no rash, Digits and nails inspection normal Lymphatic: No lymphadenopathy noted Neurologic: Alert & oriented x 3, CN 2-12 normal, normal motor function, normal sensory function, no focal deficits noted Psychiatric: Speech and behavior appropriate ? labs No results found for this or any previous visit (from the past 24 hour(s)). Pathology ? Imaging & Other Studies Performance Status? 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 Oncotype DX for DCIS showed a score of zero with no benefit from the radiation therapy. I have discussed in detail endocrine therapy with their overall benefit and side effects that include risk of osteoporosis, thromboembolic event risk of endometrial hyperplasia GIupset and musculoskeletal discomfort. At this time I will order blood testing to clarify her menopausal status. I will check CBC, BMP, FSH and estradiol level. We will start her on appropriate endocrine therapy based on the lab results finding. I have answered all the questions to patient's resection. Thank you very much for allowing me to participate in Lisa Hermosillo's evaluation and management. Please feel free to contact if I can be of any further assistance in your patient???s care requiring hematology or oncology evaluation. Sincerely, ? ? Jacek Laura M.D. cell ? ? Jacek Laura MD ,01/07/2017 11:19 AM ? Total time spent 60 minutes, two third of the total time spent counseling patient [id number]. CC:Laverne Thorpe DO? documented in this encounter Plan of Treatment Not on file documented as of this encounter Procedures Procedure Name Priority Date/Time Associated Diagnosis Comments CBC WITH DIFFERENTIAL Routine 01/07/2017 11:40 AM CDT 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 breast ESTRADIOL Routine 01/07/2017 11:40 AM CDT 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 breast FSH Routine 01/07/2017 11:40 AM CDT 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 breast BASIC METABOLIC PANEL Routine 01/07/2017 11:40 AM CDT 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 breast documented in this encounter Results * FSH (01/07/2017 11:40 AM CDT) Pathologist [facility] FSH 91.8 mIU/mL [facility] Comment: ?Adult Female: ?Follicular phase ?3.5 - ??12.5 ?Ovulation phase ? 4.7 - ??21.5 ?Luteal phase ?1.7 - ?? 7.7 ?Postmenopausal ? 25.8 - 134.8 Blood 01/07/2017 11:4 0 AM CDT 01/07/2017 Narrative [facility] - 01/08/2017 4:11 AM CDT Performed at: ??01 - [facility] [address] ??[id number] Assistant Child Care Teacher: Vish Reddy PhD, Phone: ??[phone] Jacek Laura MD CHEMISTRY ORDERABLES [facility] * ESTRADIOL (01/07/2017 11:40 AM CDT) Pathologist [facility] ESTRADIOL 104.8 pg/mL [facility] Comment: ?Adult Female: ?Follicular phase ?? 12.5 - ?? 166.0 ?Ovulation phase ?85.8 - ?? 498.0 ?Luteal phase ? 43.8 - ?? 211.0 ?Postmenopausal ? <6.0 - ?54.7 ?1st trimester ? 215.0 - >4300.0 ?Girls (1-10 years) ?6.0 - ?27.0 Dustin ECLIA methodology Blood 01/07/2017 11:4 0 AM CDT 01/07/2017 Narrative [facility] - 01/08/2017 4:11 AM CDT Performed at: ??01 - [address], [place], [place] ??[id number] Assistant Child Care Teacher: Vish Reddy PhD, Phone: ??[phone] Jacek Laura MD CHEMISTRY ORDERABLES [facility] * CBC WITH DIFFERENTIAL (01/07/2017 11:40 AM CDT) WBC 3.5 3.4 - 10.8 x10E3/uL [facility] RBC 3.94 3.77 - 5.28 x10E6/uL [facility] HEMOGLOBIN 12.2 11.1 - 15.9 g/dL [facility] HEMATOCRIT 36.8 34.0 - 46.6 % [facility] MCV 93 79 - 97 fL [facility] MCH 31.0 26.6 - 33.0 pg [facility] MCHC 33.2 31.5 - 35.7 g/dL [facility] RDW 12.6 12.3 - 15.4 % [facility] PLATELETS 168 150 - 379 x10E3/uL [facility] NEUTROPHIL 53 % [facility] LYMPHOCYTES 38 % [facility] MONOCYTE 8 % [facility] EOSINOPHILS 1 % [facility] BASOPHILS 0 % [facility] NEUTROPHIL ABSOLUTE 1.8 1.4 - 7.0 x10E3/uL [facility] LYMPHOCYTE ABSOLUTE 1.3 0.7 - 3.1 x10E3/uL [facility] MONOCYTE ABSOLUTE 0.3 0.1 - 0.9 x10E3/uL [facility] EOSINOPHIL ABSOLUTE 0.0 0.0 - 0.4 x10E3/uL [facility] BASOPHILS ABSOLUTE 0.0 0.0 - 0.2 x10E3/uL [facility] IMMATURE GRANULOCYTES 0 % [facility] IMMATURE GRANULOCYTES ABSOLUTE 0.0 0.0 - 0.1 x10E3/uL [facility] Comment: A hand-written panel/profile was received from your office. In accordance with the [facility] Ambiguous Test Code Policy dated October 2002, we have assigned CBC with Differential/Platelet, Test Code #425801 to this request. If this is not the testing you wished to receive on this specimen, please contact the [facility] Client Inquiry/ Technical Services Department to clarify the test order. We appreciate your business. Blood 01/07/2017 11:4 0 AM CDT 01/07/2017 Narrative [facility] - 01/08/2017 1:05 AM CDT Performed at: ??01 - [facility] ??[id number] Assistant Child Care Teacher: Vish Reddy PhD, Phone: ??[phone] Jacek Laura MD HEMATOLOGY ORDERABLE S [facility] * BASIC METABOLIC PANEL (01/07/2017 11:40 AM CDT) GLUCOSE 82 65 - 99 mg/dL [facility] Comment: Specimen received in contact with cells. No visible hemolysis present. However GLUC may be decreased and K increased. Clinical correlation indicated. BUN 10 6 - 24 mg/dL [facility] CREATININE 0.88 0.57 - 1.00 mg/dL [facility] GFR 75 >59 mL/min/1.7 3 [facility] GFR, 86 >59 mL/min/1.7 3 [facility] BUN/CREAT RATIO 11 9 - 23 [facility] SODIUM 143 134 - 144 mmol/L [facility] POTASSIUM 4.5 3.5 - 5.2 mmol/L [facility] Comment: Specimen received in contact with cells. No visible hemolysis present. However GLUC may be decreased and K increased. Clinical correlation indicated. CHLORIDE 102 96 - 106 mmol/L [facility] CO2 24 18 - 29 mmol/L [facility] CALCIUM 9.5 8.7 - 10.2 mg/dL [facility] Blood 01/07/2017 11:4 0 AM CDT 01/07/2017 Narrative [facility] - 01/08/2017 5:12 AM CDT Performed at: ??01 - [facility] [address] ??[id number] Assistant Child Care Teacher: Vish Reddy PhD, Phone: ??[phone] Jacek Laura MD CHEMISTRY ORDERABLES [facility] documented in this encounter Visit Diagnoses Diagnosis 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 breast documented in this encounter Care Teams Grinder Set Up Operator Gear Tool Relationship Specialty Start Date End Date José Guzman MD [address] [place] [address] PCP - General Family Practice 01/07/17 03/13/18 documented as of this encounter
--- OUTSIDE RECORDS SUMMARY | 2024-04-21 12:29 | XMS_ITS | Encounter Summary ---
Author Organization [facility] Address [address] [place] [address] Care Team Providers Care Elevator Worker Name Role Phone Almita Smallwood MD Primary Care Provider + Encounter Details Date Type Department Care Team (Late st Contact Info) Description 06/19/2018 Orders Only [facility] Oncology and Hematology - [place] [address] [id number] Brandi Peacock RN Mild anemia; Proteins serum plasma low; Elevated serum creatinine Social History Tobacco Use Types Packs/Day Years [...] Associated Diagnosis Comments CBC WITH DIFFERENTIAL Routine 06/21/2018 Mild anemia COMPREHENSIVE METABOLIC PANEL Routine 06/21/2018 Proteins serum plasma low Elevated serum creatinine documented in this encounter Results * COMPREHENSIVE METABOLIC PANEL (06/21/2018) Blood Almita Smallwood MD CHEMISTRY ORDERA BLES [facility]# [id number] [address] [place] [address] * CBC WITH DIFFERENTIAL (06/21/2018) Blood Almita Smallwood MD HEMATOLOGY ORDER MANUEL [facility]# [id number] [address] [place] [address] documented in this encounter Visit Diagnoses Diagnosis Mild anemia Anemia, unspecified Proteins serum plasma low Other disorders of plasma protein metabolism Elevated serum creatinine Other nonspecific findings on examination of blood documented in this encounter Additional Health Concerns Assessment Noted Time PHQ-9 Depression Total Score: 1 03/14/20 18 3:00 PM SUPERVISOR GROVE documented as of this encounter Care Teams Elevator Worker Relationship Specialty Start Date End Date Almita Smallwood MD [address] [place] [phone] PCP - General Internal Medicine 03/14/18 documented as of this encounter
--- OUTSIDE RECORDS SUMMARY | 2024-04-21 12:29 | XMS_ITS | Encounter Summary ---
Author Organization [facility] Address [address] [place] [address] Care Team Providers Care Bulldozer Press Operator Name Role Phone Almita Smallwood MD Primary Care Provider + Reason for Visit * Reason Comments Follow Up Encounter Details Date Type Department Care Team ([facility] Contact Info) Description 06/21/2018 9:00 AM SADDLE AND SIDE WIRE STITCHER Office Visit [facility] BREAST SURGERY [place] [address], [address] [address] Laverne Thorpe, NO ADDRESS ON FILE Inversion, nipple (Primary Dx); Ductal carcinoma in situ (DCIS) [...] Time Taken Comments Blood Pressure 110/66 06/21/2018 8:57 AM SADDLE AND SIDE WIRE STITCHER Pulse 64 06/21/2018 8:57 AM SADDLE AND SIDE WIRE STITCHER Temperature 36.8 ??C (98.2 ??F) 06/21/2018 8:57 AM CS T Respiratory Rate - - Oxygen Saturation 98% 06/21/2018 8:57 AM SADDLE AND SIDE WIRE STITCHER Inhaled Oxygen Concentration - - Weight 66.8 kg (147 lb 3.2 oz) 06/21/2018 8:57 A M SADDLE AND SIDE WIRE STITCHER Height 167.6 cm (5' 6 ) 06/21/2018 8:57 AM SADDLE AND SIDE WIRE STITCHER Body Mass Index 23.76 06/21/2018 8:57 AM SADDLE AND SIDE WIRE STITCHER documented in this encounter Progress Notes * Laverne Thorpe, - 06/21/2018 9:03 AM CST Chief Complaint Patient presents with ??? Follow Up Subjective: This patient never followed up after her mammogram and DEXA scan in October of last year. She continues to take tamoxifen (now regularly), and has an appointment with Dr. Laura today. She reports that she has noted right nipple inversion which started about November of last year. This is the first time I am hearing of this. This is not consistent, and the nipple does relax; this is no better nor worse. No nipple discharge. She is not taking Effexor, and admits that she is taking turmeric very inconsistently. PROCEDURE(s): 06/08/2017: right, breast, ultrasound-guided core biopsy Pathology: No atypia, focal fibrosis, sclerosing adenosis, benign 11/22/2016: Left, Partial Mastectomy Pathology: Ductal carcinoma in situ, grade 1 10/27/2016: left breast stereotactic biopsy Pathology: Ductal carcinoma in situ, grade 1 01/2011: Left breast USG bx Pathology: no atypia, UDH, duct ectasia FHx paternal aunt BC dx 80, passed 82, no ovarian cancer, mother colon ca dx 59, passed 61; sister colon ca dx 54, alive 59 Menarche 15 menopause 54 natural FFTB 22 no breast feeding OCPs 3 months, HRT >1 yr; stopped with dx in 2016 34A No Ashkenazi heritage Former smoker quit 2005 smoked 39 yrs 2ppd No Known Allergies Current Outpatient Prescriptions: ??? tamoxifen (NOLVADEX) 20 mg tablet, TAKE 1 TABLET DAILY, Disp: 90 Tablet, Rfl: 4 ??? TURMERIC ORAL, Take by mouth., Disp: , Rfl: ??? multivitamin (DAILY-FREDDIE) tablet, Take 1 Tablet by mouth daily., Disp: , Rfl: ROS: Constitutional: Negative for fever, weight loss [...] noted above. Immunizations: non-contributory PHYSICAL EXAM: BP 110/66 (BP Location: Right arm, Patient Position (BP): Sitting, BP Cuff Size: Adult) Pulse 64 Temp 98.2 ??F (36.8 ??C) (Oral) Ht 5' 6 (1.676 m) Wt 66.8 kg (147 lb 3.2 oz) LMP 09/15/2014(Within Months) SpO2 98% BMI 23.76 kg/m?? Breasts: no cervical, supraclavicular, axillary lymphadenopathy. Breast symmetry: symmetric Other findings: The patient was examined in the seated and supine positions today. The surgical scar at the left lower outer areola is healing very nicely and is barely visible. There are no skin changes, and no palpable abnormalities. Left nipple is normal, everted without discharge. The right nipple has grade 1 inversion. There is no discharge noted. Ultrasound done: Targeted right retroareolar. Immediately deep to the nipple, there is a hypoechoic, avascular lesion which is somewhat shadowing. It measures 0.41 x 0.5 cm 0.44 cm. Right axilla is also scaled with a plump lymph node with a benign appearance measuring 1.25 cm. General: well-developed, well-nourished HEENT: normocephalic/atraumatic. Extra-occular [...] 2016, but frequently forgets. Most recent imaging: Bilateral screening mammogram done at [facility] on October 21, 2017. Both breasts are imaged, with about 80% density bilaterally. Surgical clips are noted inthe left upper outer breast. Also in the left breast at 12:00, a biopsy clip is noted. This appearsto be bonnie- shaped. As well, a biopsy clip is seen in the right breast at 12:00. These are the patient's first bilateral films since her surgery. There are no areas of suspicious calcifications, no architectural distortion and no nodular masses seen. BI-RADS 2 per radiology Bone density, DEXA imaging done 10/21/2017 shows density greater than desirable level at all skeletalsites tested. However, this is trending down. Recommendation is for another DEXA scan in 5 years. Left breast mammogram May 26, 2017, BI-RADS 2 Future imaging: Bilateral breast mammogram November 2017 ASSESSMENT AND PLAN: Encounter Diagnoses Name Primary? 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 breast ??? Estrogen receptor positive status (ER+) ??? SERM use (selective estrogen receptor modulator) ??? Inversion, nipple Yes With new onset right nipple inversion, I would like for the patient to have a mammogram today. I explained that she does have a small lesion immediately deep to the nipple, which will likely need to be sampled. When she has a mammogram, and we will see her back to discuss a plan. I again reminded the patient that she has had breast cancer in the past, and really needs to be more cognizant of changes in her breasts. She was again encouraged to make sure to keep me updated of these changes. Questions were solicited and fully answered. Patient stated understanding. documented in this encounter Plan of Treatment Not on file documented as of this encounter Procedures Procedure Name Priority Date/Time Associated Diagnosis Comments US BREAST UNI RT LTD Routine 06/21/2018 Inversion, nipple documented in this encounter Results * US BREAST UNI RT LTD (06/21/2018) Anatomical Region Laterality Modality Breast Right Other Impressions 06/21/2018 See note. Laverne B Yumikotoi DO [facility] ORDER[facility]LES documented in this encounter Visit Diagnoses Diagnosis Inversion, nipple- Primary Other sign and symptom in breast 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 breast Estrogen receptor positive status (ER+) Estrogen receptor positive status [ER+] SERM use (selective estrogen receptor modulator) Use of selective estrogen receptor modulators (SERMs) documented in this encounter Additional Health Concerns Assessment Noted Time PHQ-9 Depression Total Score: 1 03/14/20 18 3:00 PM SADDLE AND SIDE WIRE STITCHER documented as of this encounter Care Teams Bulldozer Press Operator Relationship Specialty Start Date End Date Almita Smallwood MD [address] [place] [phone] PCP - General Internal Medicine 03/14/18 documented as of this encounter
--- OUTSIDE RECORDS SUMMARY | 2024-04-21 12:29 | XMS_ITS | Encounter Summary ---
Author Organization [facility] Address [address] [place] [address] Care Team Providers Care Oil Sprayer Name Role Phone Almita Smallwood MD Primary Care Provider + Encounter Details Date Type Department Care Team (Late st Contact Info) Description 06/29/2018 Orders Only [facility] Internal Medicine - [address] [phone] Almita Smallwood MD [address] [place] [address] Chronic anemia (Primary Dx) Social History Tobacco Use [...] Type Priority Associated Diagnoses Orde r Schedule VITAMIN B12 AND FOLATE Lab Routine Chronic anemia Expected: 06/29/2018, Expires: 06/29/2019 IRON, TIBC, AND PERCENT SATURATION Lab Routine Chronic anemia Expected: 06/29/2018, Expires: 06/29/2019 FERRITIN Lab Routine Chronic anemia Expected: 06/29/2018, Expires: 06/29/2019 documented as of this encounter Visit Diagnoses Diagnosis Chronic anemia- Primary Anemia, unspecified documented in this encounter Additional Health Concerns Assessment Noted Time PHQ-9 Depression Total Score: 1 03/14/20 18 3:00 PM IMAGING TECH documented as of this encounter Care Teams Oil Sprayer Relationship Specialty Start Date End Date Almita Smallwood MD [address] [place] [address] PCP - General Internal Medicine 03/14/18 documented as of this encounter
--- OUTSIDE RECORDS SUMMARY | 2024-04-21 12:29 | XMS_ITS | Encounter Summary ---
Author Organization [facility] Address [address] [place] [address] Care Team Providers Care Chief Of Vital Statistics Name Role Phone Almita Smallwood MD Primary Care Provider + Encounter Details Date Type Department Care Team (Late st Contact Info) Description 08/04/2018 Orders Only [facility] Internal Medicine [address] [address] Provider, Abstract NO ADDRESS ON FILE Social [...] Name Priority Date/Time Associated Diagnosis Comments MAMMO DIAG UNI RIGHT 3D RUTH W OR WO CAD Routine 06/21/2018 documented in this encounter Results * MAMMO DIAG UNI RIGHT 3D RUTH W OR WO CAD (06/21/2018) Anatomical Region Laterality Modality Breast Right Other Abstract Provider MAMMO ORDERABLES documented in this encounter Visit Diagnoses Not on filedocumented in this encounter Additional Health Concerns Assessment Noted Time PHQ-9 Depression Total Score: 1 03/14/20 18 3:00 PM NETWORK MANAGER documented as of this encounter Care Teams Chief Of Vital Statistics Relationship Specialty Start Date End Date Almita Smallwood MD [address] [place] [address] PCP - General Internal Medicine 03/14/18 documented as of this encounter
--- OUTSIDE RECORDS SUMMARY | 2024-04-21 12:29 | XMS_ITS | Encounter Summary ---
Author Organization [facility] Address [address] [place] [address] Care Team Providers Care Customer Support Assistant Name Role Phone José Guzman MD Primary Care Provider [phone] Encounter Details Date Type Department Care Team (Latest Contact Info) Description 09/21/2017 1:30 PM CDT - 09/21/2017 11:59 PM CDT Hospital Encounter [facility] [place] [address] [place] [address] [facility], External Provider [address] [place] [address] Discharge Disposition: Home or Self Care Social [...] Sig Dispensed Refills Start Date End Date tamoxifen (NOLVADEX) 20 mg tablet Take 1 Tablet (20 mg) by mouth daily. 90 Tablet 4 03/08/2017 05/25/2018 documented as of this encounter Plan of Treatment Not on file documented as of this encounter Procedures Procedure Name Priority Date/Time Associated Diagnosis Comments MAMMO PRIOR STUDY Routine 09/21/2017 1:3 0 PM CDT Follow up documented in this encounter Results * MAMMO PRIOR STUDY (09/21/2017 1:30 PM CDT) Narrative 03/04/2020 1:29 PM CRADLE PLACER This exam was auto finalized to allow images to be scanned to PACS. External Provider [facility] DIAGNOSTIC IMAGI NG ORDERABLES documented in this encounter Visit Diagnoses Diagnosis Follow up documented in this encounter Care Teams Customer Support Assistant Relationship Specialty Start Date End Date José Guzman MD [address] [place] [id number] PCP - General Family Practice 01/07/17 03/13/18 documented as of this encounter
--- OUTSIDE RECORDS SUMMARY | 2024-04-21 12:29 | XMS_ITS | Encounter Summary ---
Author Organization [facility] Address [address] [place] [address] Care Team Providers Care Barrel Bung Remover And Dumper Name Role Phone Almita Smallwood MD Primary Care Provider + Encounter Details Date Type Department Care Team (Late st Contact Info) Description 03/20/2018 Orders Only [facility] Internal Medicine - [address] [address] Almita Smallwood MD [address] [place] [address] Mild anemia (Primary Dx); Proteins serum plasma low; Elevated serum creatinine [...] Blood Almita Smallwood MD CHEMISTRY ORDERA BLES [facility]# [id number] [address] [place] [id number] * CBC WITH DIFFERENTIAL (06/21/2018) Blood Almita Smallwood MD HEMATOLOGY ORDER MANUEL [facility]# [id number] [address] [place] [address] documented in this encounter Visit Diagnoses Diagnosis Mild anemia- Primary Anemia, unspecified Proteins serum plasma low Other disorders of plasma protein metabolism Elevated serum creatinine Other nonspecific findings on examination of blood documented in this encounter Additional Health Concerns Assessment Noted Time PHQ-9 Depression Total Score: 1 03/14/20 18 3:00 PM FIRE SPRINKLER APPARATUS INSPECTOR documented as of this encounter Care Teams Barrel Bung Remover And Dumper Relationship Specialty Start Date End Date Almita Smallwood MD [address] [place] [address] PCP - General Internal Medicine 03/14/18 documented as of this encounter
--- OUTSIDE RECORDS SUMMARY | 2024-04-21 12:29 | XMS_ITS | Encounter Summary ---
Author Organization [facility] Address [address] [place] [address] Care Team Providers Care Motion Picture Director Name Role Phone Almita Smallwood MD Primary Care Provider + Encounter Details Date Type Department Care Team (Late st Contact Info) Description 07/25/2018 Orders Only [facility] Oncology and Hematology - [place] [address] [address] Brandi Peacock, RN Social History Tobacco Use Types Packs/Day [...] Total Score: 1 03/14/20 18 3:00 PM ANALYTICAL LAB TECHNICIAN documented as of this encounter Care Teams Motion Picture Director Relationship Specialty Start Date End Date Almita Smallwood MD [address] [place] [address] PCP - General Internal Medicine 03/14/18 documented as of this encounter
--- OUTSIDE RECORDS SUMMARY | 2024-04-21 12:29 | XMS_ITS | Encounter Summary ---
Author Organization [facility] Address [address] [place] [address] Care Team Providers Care Project Intern Name Role Phone José Guzman MD Primary Care Provider [phone] Reason for Referral * Outpatient Services (Routine) - Closed Specialty Diagnoses / Procedures Referred By Tati t Referred To Contact Diagnoses 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 breast Procedures MAMMO SCREEN BILAT W OR WO CAD Jacek Laura MD [address] [place] [address] [place] [address] [place] [address] Referral ID Status Reason Start Date Expiration Date Visits Requested Visits Authorized [id number] Closed Ordering Department To Schedule 09/07/2017 10/08/2018 1 1 Reason for Visit * Reason Comments Follow Up none Encounter Details Date Type Department Care Team ([facility] Contact Info) Description 09/07/2017 9:00 AM CDT Office Visit [facility] Oncology and Hematology - [place] [address] [place] [address] [facility] [address] [place] [address] Jacek Laura MD [address] [place] [address] Ductal carcinoma in situ (DCIS) [...] Sign Reading Time Taken Comments Blood Pressure 120/62 09/07/2017 8:51 AM CDT Pulse 79 09/07/2017 8:51 AM CDT Temperature 36.6 ??C (97.9 ??F) 09/07/2017 8:51 AM CD T Respiratory Rate 18 09/07/2017 8:51 AM CDT Oxygen Saturation 96% 09/07/2017 8:51 AM CDT Inhaled Oxygen Concentration - - Weight 68.5 kg (151 lb) 09/07/2017 8:51 AM CDT Height 167.6 cm (5' 6 ) 09/07/2017 8:51 AM CDT Body Mass Index 24.37 09/07/2017 8:51 AM CDT documented in this encounter Progress Notes * Jacek Laura MD - 09/07/2017 9:28 AM CDT HEMATOLOGY / ONCOLOGY PROGRESS NOTE Patient [...] partial mastectomy done on November 22, 2016 ER/[place] strongly positive. Oncotype DX for DCIS showed a score of zero with no benefit from the radiation therapy. Patient started taking tamoxifen in January 2017 and has been tolerating it fairly well. There is no evidence of relapse of disease on my examination.Mammogram has been ordered for October 2017. I will see her back in 4 months. Hot flashes. Patient is currently not taking Effexor. Hot flashes are stable. ? 09/07/2017 Jacek Laura MD documented in this encounter Plan of Treatment Not on file documented as of this encounter Results * MAMMO SCREEN BILAT W OR WO CAD (10/21/2017) Anatomical Region Laterality Modality Breast Bilateral Other Jacek Laura MD MAMMO ORDERABLES documented in this encounter Visit Diagnoses Diagnosis 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 breast- Primary documented in this encounter Care Teams Project Intern Relationship Specialty Start Date End Date José Guzman MD [address] [place] [address] PCP - General Family Practice 01/07/17 03/13/18 documented as of this encounter
--- OUTSIDE RECORDS SUMMARY | 2024-04-21 12:29 | XMS_ITS | Encounter Summary ---
Author Organization [facility] Address [address] [place] [address] Care Team Providers Care Auto Mechanic Name Role Phone José Guzman MD Primary Care Provider [phone] Reason for Visit * Reason Onset Date Comments Results 01/18/2017 Encounter Details Date Type Department Care Team ([facility] Contact Info) Description 01/18/2017 Telephone [facility] Oncology and Hematology - [place] [address] [facility] [address] [place] [address] Jacek Laura MD [address] [facility] [address] [place] [address] Results Social History Tobacco Use [...] Telephone Encounter - Brandi Peacock RN - 01/18/2017 2:59 PM CDT Discussed with pt after Dr. Laura reviewed FSH and Estradiol levels, pt is not menopausal at this time. Rx Tamoxifen ordered for pt, written educational info mailed to pt. Possible interaction of Tamoxifen and Paxil discussed with pharmacist, minimal interaction should be safe to take, Dr. Laura notified. Brandi Peacock RN documented in this encounter Plan of Treatment Not on file documented as of this encounter Visit Diagnoses Not on filedocumented in this encounter Care Teams Auto Mechanic Relationship Specialty Start Date End Date José Guzman MD [address] [place] [address] PCP - General Family Practice 01/07/17 03/13/18 documented as of this encounter
--- OUTSIDE RECORDS SUMMARY | 2024-04-21 12:29 | XMS_ITS | Encounter Summary ---
Author Organization [facility] Address [address] [place] [address] Care Team Providers Care Curriculum Specialist Name Role Phone Almita Smallwood MD Primary Care Provider + Reason for Visit * Reason Comments Follow Up R US in office Encounter Details Date Type Department Care Team ([facility] st Contact Info) Description 09/29/2018 3:05 PM CDT Office Visit [facility] BREAST SURGERY [place] [address], [address] [address] Laverne Thorpe, NO ADDRESS ON FILE Inversion of nipple (Primary Dx); SERM use (selective estrogen receptor modulator); Lymphadenopathy, axillary; Ductal carcinoma in situ (DCIS) [...] Sign Reading Time Taken Comments Blood Pressure 132/90 09/29/2018 2:56 PM CDT Pulse 71 09/29/2018 2:56 PM CDT Temperature 36.9 ??C (98.4 ??F) 09/29/2018 2:56 PM CD T Respiratory Rate - - Oxygen Saturation 98% 09/29/2018 2:56 PM CDT Inhaled Oxygen Concentration - - Weight 67.8 kg (149 lb 6.4 oz) 09/29/2018 2:56 P M CDT Height 167.6 cm (5' 6 ) 09/29/2018 2:56 PM CDT Body Mass Index 24.11 09/29/2018 2:56 PM CDT documented in this encounter Progress Notes * Ila Laverne Jazz, DO - 09/29/2018 3:08 PM CDT Chief Complaint Patient presents with ??? Follow Up R US in office Subjective: The patient reports no change in her right nipple retraction. She states that she also has not noted any nipple discharge. There is no associated pain. She complains of hot flashes, but states that she cannot tell that this has worsened with tamoxifen. She continues to take tamoxifen daily. 06/30/2018: The patient is here today for follow-up after her right diagnostic mammogram. She statesthat she has not noted any further changes, and no nipple discharge. She admits that now her right nipple appears to be inverted more frequently, but is easily everted. 06/21/2018: This patient never followed up after her [...] father lymphoma or leukemia (patient is unsure) Menarche 15 menopause 54 natural FFTB 22 no breast feeding OCPs 3 months, HRT >1 yr; stopped with dx in 2017 36A No Ashkenazi heritage Former smoker quit 2004 smoked 39 yrs 2ppd No Known Allergies Current Outpatient Medications: ??? COLLAGEN MISC, by Misc.(Non-Drug; Combo Route) route., Disp: , Rfl: ??? tamoxifen (NOLVADEX) 20 mg tablet, Take 1 Tablet (20 mg) by mouth daily., Disp: 90 Tablet, Rfl:4 ??? TURMERIC ORAL, Take by mouth., Disp: , Rfl: ROS: Constitutional: Negative for [...] noted above. Immunizations: non-contributory PHYSICAL EXAM: BP (!) 132/90 (BP Location: Right arm, Patient Position (BP): Sitting, BP Cuff Size: Adult) Pulse71 Temp 98.4 ??F (36.9 ??C) (Oral) Ht 5' 6 (1.676 m) Wt 67.8 kg (149 lb 6.4 oz) LMP 09/15/2014 (Within Months) SpO2 98% BMI 24.11 kg/m?? Breasts: no cervical, supraclavicular, axillary lymphadenopathy. [...] 1 inversion. There is no discharge noted. There are no palpable abnormalities in either breast on today's exam. Targeted right ultrasound done with the exam. In the retroareolar space, there are no abnormalitiesseen. In fact, the previously seen cyst is not identified on today's exam. Right axillary lymph node remains enlarged, measuring slightly larger on today's exam at 1.46 cm. General: well-developed, well-nourished HEENT: normocephalic/atraumatic. Extra-occular [...] December 2016, but frequently forgets. Most recent imagin06/21/2018 right breast diagnostic mammography was done at [facility] mammography [place]. These images are compared to those of October 21, 2017. Again, a ribbon-shaped biopsy marker is noted in the right breast at 12:00. The breast is quite dense, with about 80% to 90% density.On the cc view, there is a questionable new tiny lesion just lateral to the nipple. This may in reality simply be a blood vessel on end. Otherwise, there are no abnormalities noted and no new findings. BI-RADS 1 per radiology. Bilateral screening mammogram done at [facility] mammography Center on October 21, 2017. [...] ASSESSMENT AND PLAN: Encounter Diagnoses Name Primary? Inversion of nipple Yes ??? SERM use (selective estrogen receptor modulator) ??? Lymphadenopathy, axillary ??? 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 breast I explained to the patient that on today's exam, I do not see the subareolar abnormality. However, I am concerned that she has this retraction of the right nipple without a specific abnormality. We discussed the fact that an MRI may be helpful. I explained that the only issue is that sometimes MRIsare not good at visualizing the superficial breast tissues or the nipple itself. However, it may still be a good tool since we do not have a good answer at this point. As far as the right axillary lymph node is concerned, it is enlarging slightly. I explained to the patient that an ultrasound-guided biopsy is likely a good option. The patient states that she is especially concerned because her father had what she believes to have been lymphoma. She also states that it may have been leukemia. For her peace of mind, an ultrasound-guided biopsy should be done. Ultrasound guided biopsy procedure, alternatives, common and uncommon risks, benefits and expected outcomes were explained. The patient was given literature of the same, and would like to move ahead with scheduling. For her hot flashes, I am giving her a sample of Acteane. Hopefully this will help her. Questions were solicited and fully answered. Patient stated understanding. This note was transcribed using Speech Recognition software. As a result, there may be grammatical and spelling errors that are unintended. If there are any questions or major inaccuracies, please contact me. documented in this encounter Miscellaneous Notes * Patient Instructions - Laverne Thorpe DO - 09/29/2018 3:13 PM CDT Melatonin 20mg take 2 hours before bed. documented in this encounter Plan of Treatment Not on file documented as of this encounter Procedures Procedure Name Priority Date/Time Associated Diagnosis Comments US BREAST UNI RT LTD Routine 09/29/2018 documented in this encounter Results * US BREAST UNI RT LTD (09/29/2018) Anatomical Region Laterality Modality Breast Right Other Impressions 09/29/2018 See note. Laverne B Yumikoletitiashelby MARTINEZ ORDERABLES documented in this encounter Visit Diagnoses Diagnosis Inversion of nipple- Primary Other sign and symptom in breast SERM use (selective estrogen receptor modulator) Use of selective estrogen receptor modulators (SERMs) Lymphadenopathy, axillary 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 breast documented in this encounter Additional Health Concerns Assessment Noted Time PHQ-9 Depression Total Score: 1 03/14/20 18 3:00 PM LINES TENDER documented as of this encounter Care Teams Curriculum Specialist Relationship Specialty Start Date End Date Almita Smallwood MD [address] [place] [address] PCP - General Internal Medicine 03/14/18 documented as of this encounter
--- OUTSIDE RECORDS SUMMARY | 2024-04-21 12:29 | XMS_ITS | Encounter Summary ---
Author Organization [facility] Address [address] [place] [address] Care Team Providers Care Automatic Developer Name Role Phone José Guzman MD Primary Care Provider [phone] Reason for Visit * Reason Comments Follow Up Encounter Details Date Type Department Care Team ([facility] Contact Info) Description 12/21/2017 9:15 AM CDT Office Visit [facility] Oncology and Hematology - [place] [address] [facility] [address] [place] [address] Jacek Laura MD [address] [facility] [address] [place] [address] Ductal carcinoma in situ (DCIS) [...] Sign Reading Time Taken Comments Blood Pressure 118/68 12/21/2017 9:07 AM CDT Pulse 79 12/21/2017 9:07 AM CDT Temperature 36.8 ??C (98.2 ??F) 12/21/2017 9:07 AM CD T Respiratory Rate - - Oxygen Saturation 96% 12/21/2017 9:07 AM CDT Inhaled Oxygen Concentration - - Weight 71.1 kg (156 lb 11.2 oz) 12/21/2017 9:07 AM CDT Height 167.6 cm (5' 6 ) 12/21/2017 9:07 AM CDT Body Mass Index 25.29 12/21/2017 9:07 AM CDT documented in this encounter Progress Notes * Jacek Laura MD - 12/21/2017 10:03 AM CDT HEMATOLOGY / ONCOLOGY PROGRESS NOTE [...] partial mastectomy done on November 22, 2016 ER/[place] strongly positive. Oncotype DX for DCIS showed a score of zero with no benefit from the radiation therapy. Patient started taking tamoxifen in January 2017 and has been tolerating it fairly well. There is no evidence of relapse of disease on my examination.Mammogram done in October 2017 came back unremarkable. I will see her back in 6 months. Bone health. Bone density done in October 2017 also came back normal. Hot flashes. Patient stopped taking Effexor about a month ago but hot flashes returned. She is planning to restart Effexor. ? 12/21/2017 Jacek Laura MD documented in this encounter Plan of Treatment Not on file documented as of this encounter Visit Diagnoses Diagnosis 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 breast- Primary documented in this encounter Care Teams Automatic Developer Relationship Specialty Start Date End Date José Guzman MD [address] [place] [address] PCP - General Family Practice 01/07/17 03/13/18 documented as of this encounter
--- OUTSIDE RECORDS SUMMARY | 2024-04-21 12:29 | XMS_ITS | Encounter Summary ---
Author Organization [facility] Address [address] [place] [address] Care Team Providers Care Mortising Machine Operator Name Role Phone Almita Smallwood MD Primary Care Provider + Reason for Visit * Reason Comments Follow Up MMG f/u Encounter Details Date Type Department Care Team ([facility] Contact Info) Description 06/30/2018 9:00 AM CDT Office Visit [facility] BREAST SURGERY [facility] [address], [address] [address] Laverne Thorpe, NO ADDRESS ON FILE Inversion of nipple (Primary Dx); Estrogen receptor positive status (ER+); SERM use (selective estrogen receptor modulator); 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 [...] Sign Reading Time Taken Comments Blood Pressure 111/78 06/30/2018 8:43 AM CDT Pulse 82 06/30/2018 8:43 AM CDT Temperature 36.4 ??C (97.6 ??F) 06/30/2018 8:43 AM CD T Respiratory Rate - - Oxygen Saturation 97% 06/30/2018 8:43 AM CDT Inhaled Oxygen Concentration - - Weight 67.7 kg (149 lb 4.8 oz) 06/30/2018 8:43 A M CDT Height 167.6 cm (5' 6 ) 06/30/2018 8:43 AM CDT Body Mass Index 24.1 06/30/2018 8:43 AM CDT documented in this encounter Progress Notes * Laverne Thorpe, DO - 06/30/2018 8:49 AM CDT Chief Complaint Patient presents with ??? Follow Up MMG f/u Subjective: The patient is here today for follow-up after her right diagnostic mammogram. She states that she has not noted any further changes, and no nipple discharge. She admits that now her rightnipple appears to be inverted more frequently, but [...] noted above. Immunizations: non-contributory PHYSICAL EXAM: BP 111/78 (BP Location: Right arm, Patient Position (BP): Sitting, BP Cuff Size: Adult) Pulse 82 Temp 97.6 ??F (36.4 ??C) (Oral) Ht 5' 6 (1.676 m) Wt 67.7 kg (149 lb 4.8 oz) LMP 09/15/2014(Within Months) SpO2 97% BMI 24.10 kg/m?? Breasts: no cervical, supraclavicular, axillary lymphadenopathy. [...] abnormalities in either breast on today's exam. General: well-developed, well-nourished HEENT: normocephalic/atraumatic. Extra-occular movements [...] right breast diagnostic mammography was done at [facility]ography [place]. These images are compared to those of [...] per radiology. Bilateral screening mammogram done at [facility] mammography [place] on October 21, 2017. Both breasts are [...] Name Primary? Inversion of nipple Yes ??? Estrogen receptor positive status (ER+) ??? SERM use (selective estrogen receptor modulator) ??? 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 breast I explained to the patient that her mammogram showed normal findings no changes. I am concerned about this new onset nipple inversion, but feel that it may simply be due to a small cyst that is deep to her nipple. I explained that she has 2 options. The first option is a biopsy of the lesion seen on ultrasound, which likely is a simple cyst. The second option is to revisit in 2-3 months with another ultrasound here in the office and reassess at that time. The patient prefers to simply observe and come back to reevaluate the site. She understands that it is imperative that she lets me know immediately if the nipple becomes inverted and will not lashae or if she starts to have nipple discharge. As well, if she feels any masses or has any skin changes, she is to call to see me as soon as possible. Questions were solicited and fully answered. Patient stated understanding. documented in this encounter Plan of Treatment Not on file documented as of this encounter Visit Diagnoses Diagnosis Inversion of nipple- Primary Other sign and symptom in breast Estrogen receptor positive status (ER+) Estrogen receptor positive status [ER+] SERM use (selective estrogen receptor modulator) Use of selective estrogen receptor modulators (SERMs) 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 breast documented in this encounter Additional Health Concerns Assessment Noted Time PHQ-9 Depression Total Score: 1 03/14/20 18 3:00 PM DATA TYPIST documented as of this encounter Care Teams Mortising Machine Operator Relationship Specialty Start Date End Date Almita Smallwood MD [address] [place] [address] PCP - General Internal Medicine 03/14/18 documented as of this encounter
--- OUTSIDE RECORDS SUMMARY | 2024-04-21 12:29 | XMS_ITS | Encounter Summary ---
Author Organization [facility] Address [address] [place] [address] Care Team Providers Care Animated Cartoons Painter Name Role Phone José Guzman MD Primary Care Provider [phone] Encounter Details Date Type Department Care Team (Late st Contact Info) Description 11/21/2017 Orders Only [facility] BREAST SURGERY [facility] [address], [email or web address] [address] [place] [address] Laverne Thorpe DO NO ADDRESS ON FILE Osteoporosis screening Social History Tobacco Use Types Packs/Day Years [...] Name Priority Date/Time Associated Diagnosis Comments XR DEXA BONE DENSITY AXIAL 1 OR MORE SITES Routine 10/21/2017 Osteoporosis screening documented in this encounter Results * XR DEXA BONE DENSITY AXIAL 1 OR MORE SITES (10/21/2017) Anatomical Region Laterality Modality Other Laverne Thorpe DO DIAGNOSTIC IMAGING ORDERABLES documented in this encounter Visit Diagnoses Diagnosis Osteoporosis screening Special screening for osteoporosis documented in this encounter Care Teams Animated Cartoons Painter Relationship Specialty Start Date End Date José Guzman MD [address] [place] [address] PCP - General Family Practice 01/07/17 03/13/18 documented as of this encounter
--- OUTSIDE RECORDS SUMMARY | 2024-04-21 12:30 | XMS_ITS | Encounter Summary ---
Author Organization [facility] Address [address] [place] [address] Care Team Providers Care Distribution Sales Representative Name Role Phone Unavailable Primary Care Provider Unavailabl e Encounter Details Date Type Department Care Team (Latest Contact Info) Description 10/27/2016 1:35 PM CDT - 10/27/2016 11:59 PM CDT Hospital Encounter [facility] [place] A [address] [place] [address] [facility], External Provider [address] [place] [address] Discharge Disposition: Home or Self Care Social [...] Associated Diagnosis Comments MAMMO PRIOR STUDY Routine 10/27/2016 1:3 5 PM CDT Follow up documented in this encounter Results * MAMMO PRIOR STUDY (10/27/2016 1:35 PM CDT) Narrative 03/04/2020 1:27 PM DIRECTOR OF TECHNOLOGY This exam was auto finalized to allow images to be scanned to PACS. External Provider [facility] DIAGNOSTIC IMAGI NG ORDERABLES documented in this encounter Visit Diagnoses Diagnosis Follow up documented in this encounter
--- OUTSIDE RECORDS SUMMARY | 2024-04-21 12:30 | XMS_ITS | Encounter Summary ---
Author Organization [facility] Address [address] [place] [address] Care Team Providers Care Engineering Document Control Clerk Name Role Phone Unavailable Primary Care Provider Unavailabl e Encounter Details Date Type Department Care Team (Latest Contact Info) Description 10/27/2016 1:30 PM CDT - 10/27/2016 11:59 PM CDT Hospital Encounter [facility] [place] A [address] [place] [address] [facility], External Provider [address] [place] [address] Discharge Disposition: Home or Self Care Social [...] Comments MAMMO PRIOR STUDY Routine 10/27/2016 1:3 0 PM CDT Follow up documented in this encounter Results * MAMMO PRIOR STUDY (10/27/2016 1:30 PM CDT) Narrative 03/04/2020 1:27 [address]ING ENGINEER This exam was auto finalized to allow images to be scanned to PACS. External Provider [facility] DIAGNOSTIC IMAGI NG ORDERABLES documented in this encounter Visit Diagnoses Diagnosis Follow up documented in this encounter
--- OUTSIDE RECORDS SUMMARY | 2024-04-21 12:30 | XMS_ITS | Encounter Summary ---
Author Organization [facility] Address [address] [place] [address] Care Team Providers Care Childbirth And Infant Care Teacher Name Role Phone Unavailable Primary Care Provider Unavailabl e Encounter Details Date Type Department Care Team (Latest Contact Info) Description 11/22/2016 1:35 PM CDT - 11/22/2016 11:59 PM CDT Hospital Encounter [facility] Medical [place] A [address] [place] [address] [facility], External Provider [address] [place] [address] Discharge Disposition: Home or Self Care Social [...] Associated Diagnosis Comments MAMMO PRIOR STUDY Routine 11/22/2016 1:3 5 PM CDT Follow up documented in this encounter Results * MAMMO PRIOR STUDY (11/22/2016 1:35 PM CDT) Narrative 03/04/2020 1:29 PM CUSTOMER ENGAGEMENT MANAGER This exam was auto finalized to allow images to be scanned to PACS. External Provider [facility] DIAGNOSTIC IMAGI NG ORDERABLES documented in this encounter Visit Diagnoses Diagnosis Follow up documented in this encounter
--- OUTSIDE RECORDS SUMMARY | 2024-04-21 12:30 | XMS_ITS | Encounter Summary ---
Author Organization [facility] Address [address] [place] [address] Care Team Providers Care Director Critical Care Name Role Phone Unavailable Primary Care Provider Unavailabl e Encounter Details Date Type Department Care Team (Latest Contact Info) Description 08/28/2015 1:30 PM CDT - 08/28/2015 11:59 PM CDT Hospital Encounter [facility] Medical [place] A [address] [place] [address] [facility], External Provider [address] [place] [address] Discharge Disposition: Home or Self Care Social [...] Associated Diagnosis Comments MAMMO PRIOR STUDY Routine 08/28/2015 1:3 0 PM CDT Follow up documented in this encounter Results * MAMMO PRIOR STUDY (08/28/2015 1:30 PM CDT) Narrative 03/04/2020 1:26 PM PIPER HELPER This exam was auto finalized to allow images to be scanned to PACS. External Provider [facility] DIAGNOSTIC IMAGI NG ORDERABLES documented in this encounter Visit Diagnoses Diagnosis Follow up documented in this encounter
--- OUTSIDE RECORDS SUMMARY | 2024-04-21 12:30 | XMS_ITS | Encounter Summary ---
Author Organization [facility] Address [address] [place] [address] Care Team Providers Care Venue Coordinator Name Role Phone Unavailable Primary Care Provider Unavailabl e Encounter Details Date Type Department Care Team (Latest Contact Info) Description 09/21/2016 1:30 PM CDT - 09/21/2016 11:59 PM CDT Hospital Encounter [facility] Medical [place] A [address] [place] [address] [facility], External Provider [address] [place] [address] Discharge Disposition: Home or Self Care Social [...] Associated Diagnosis Comments MAMMO PRIOR STUDY Routine 09/21/2016 1:3 0 PM CDT Follow up documented in this encounter Results * MAMMO PRIOR STUDY (09/21/2016 1:30 PM CDT) Narrative 03/04/2020 1:26 PM SURGICAL TECHNICIAN This exam was auto finalized to allow images to be scanned to PACS. External Provider [facility] DIAGNOSTIC IMAGI NG ORDERABLES documented in this encounter Visit Diagnoses Diagnosis Follow up documented in this encounter
--- OUTSIDE RECORDS SUMMARY | 2024-04-21 12:30 | XMS_ITS | Encounter Summary ---
Author Organization [facility] Address [address] [place] [address] Care Team Providers Care Bisque Ware Dipper Name Role Phone Unavailable Primary Care Provider Unavailabl e Encounter Details Date Type Department Care Team (Latest Contact Info) Description 11/22/2016 1:30 PM CDT - 11/22/2016 11:59 PM CDT Hospital Encounter [facility] Medical [place] A [address] [place] [address] [facility], External Provider [address] [place] [address] Discharge Disposition: Home or Self Care Social [...] Comments MAMMO PRIOR STUDY Routine 11/22/2016 1:3 0 PM CDT Follow up documented in this encounter Results * MAMMO PRIOR STUDY (11/22/2016 1:30 PM CDT) Narrative 03/04/2020 1:28 PM CONCRETE PRODUCTS DISPATCHER This exam was auto finalized to allow images to be scanned to PACS. External Provider [facility] DIAGNOSTIC IMAGI NG ORDERABLES documented in this encounter Visit Diagnoses Diagnosis Follow up documented in this encounter
--- OUTSIDE RECORDS SUMMARY | 2024-04-21 21:34 | XMS_ITS | Encounter Summary ---
Author Organization [facility] Address [address] [place] [address] Care Team Providers Care Manager Wealth Management Name Role Phone Almita Smallwood MD Primary [...] Date Expiration Date Visits Requested Visits Authorized [id number] Closed Performing Department to Schedule 03/25/2022 04/17/2023 57 60 Encounter Details Date Type Department Care Team (Late st Contact Info) Description 04/16/2022 8:00 AM TESTING ENGINEER - 04/16/2022 11:59 PM TESTING ENGINEER Hospital Encounter [facility] Services [address] [facility] [address] [place] [address] Zay Chen NP NO ADDRESS ON FILE [...] Coronavirus/COVID-19? No / Unsure 04/16/2022 7:59 AM TESTING ENGINEER documented as of this encounter Medications at [...] mcg by mouth daily. COLLAGEN MISC by [facility].(Non-Drug; Combo Route) route. TURMERIC ORAL Take by [...] visits used/60 (3 used) visits approved by [facility] by 04-17-22 Authorization: n/a Summary [...] ANKLES x 8-12 stepsx 2[address] Bulgarian ball LTR [address] Bulgarian ball bridging 1 x15 Supine burkinan ball hamstring curls with lower abdominal isometrics [...] tolerated session well. She did well with burkinan ball core strengthening and resistance machines for [...] and less LBP with squatting down to package pick up something medium or heavy off the floor. [...] Therapy, Core Stabilization [place] License #: [id number] [address], [address] [place], [place]. [id number] Fax ING ENGINEER documented in this encounter Plan of Treatment Not on file documented as of this encounter Visit Diagnoses Not on filedocumented in this encounter Care Teams Manager Wealth Management Relationship Specialty Start Date End Date Almita Smallwood MD [address] [place] [address] PCP - General Internal Medicine 03/14/18 documented as of this encounter
--- OUTSIDE RECORDS SUMMARY | 2024-04-21 21:34 | XMS_ITS | Encounter Summary ---
Author [email or web address] Address [address] [place] [address] Care Team Providers Care Nps Name Role Phone Almita Smallwood MD Primary Care Provider + Encounter Details Date Type Department Care Team (Late st Contact Info) Description 08/12/2022 Chart Note [facility] [place] [address] [place] [phone] Nghia Will, Physical Therapist Social History Tobacco [...] Thank you for this referral. Nghia Will [facility] License #: [id number] [facility], [address], [address] [place], [place]. [id number] Fax documented in this encounter Plan of Treatment Not on file documented as of this encounter Visit Diagnoses Not on filedocumented in this encounter Care Teams Nps Relationship Specialty Start Date End Date Almita Smallwood MD [address] [place] [address] PCP - General Internal Medicine 03/14/18 documented as of this encounter
--- OUTSIDE RECORDS SUMMARY | 2024-04-21 21:34 | XMS_ITS | Encounter Summary ---
Author Organization [facility] Address [address] [place] [address] Care Team Providers Care Bad Cloth Checker Name Role Phone Almita Smallwood MD [...] on filedocumented in this encounter Care Teams Bad Cloth Checker Relationship Specialty Start Date End Date Almita Smallwood MD [address] [place] [address] PCP - General Internal Medicine 03/14/18 documented as of this encounter
--- OUTSIDE RECORDS SUMMARY | 2024-04-21 21:34 | XMS_ITS | Encounter Summary ---
Author Organization [facility] Address [address] [place] [address] Care Team Providers Care Industrial Hygenist Name Role Phone Almita Smallwood MD Primary Care Provider + Reason for Visit * Auth/Cert (Routine) Specialty Diagnoses / Procedures Referred By Tati t Referred To Contact Perioperative Diagnoses MAXILLARY HYPOPLASIA Procedures OH RCNSTJ MIDFACE LEFORT I 2 PIECES W/O BONE GRAFT OH RCNSTJ MNDBLR RAMI&/BDY SGTL SPLT W/INT RGD FI OH IMPRESSION & PREPARATION ORAL SURGICAL SPLINT LEFORT OSTEOTOMY Juan Manuel Farnsworth MD [address] [place] [address] [place] [address] Referral ID Status Reason Start Date Expiration Date Visits Re quested Visits Authorized [id number] 1 1 Encounter Details Date Type Department Care Team (Late st Contact Info) Description 09/05/2023 1:13 PM CDT - 09/05/2023 7:02 PM CDT Surgery [facility] Operating Room [address] [place] [address] Juan Manuel Farnsworth MD [address] [place] [address] LEFORT OSTEOTOMY Surgery Details Date/Time Status [...] Navas DMD Assisting Oralmaxillofacial 1 Case Notes ANTHEM--[id number] documented in this encounter Social History Tobacco [...] rinse before beginning salt water rinses. ?? [place] your teeth regularly. ?? Mechanical and manual [...] than applesauce must be placed in a systems admin prior to eating. ?? Blenderized diet for six weeks. ?? Avoid fat free foods for optimum nutrition and to avoid weight loss. ?? Anything (even pizza and meats) that can be liquified in a systems admin will help in the dietary intake. Additional dietary supplements may include [place] Instant Breakfast, Ensure, etc. Antibiotics: If you [...] while medicated. For constipation, you can buy hcav-rro-[id number] Colace/Docusate Sodium or a stool softener. Pain [...] contact us with questions or concerns at [phone] In the event of an emergency please contact emergency medical help. You may also contact the oral surgeon airborne operations manager by calling the hospital corduroy cutter operator at [phone] and requesting the oral surgeon airborne operations manager. An on-call oral surgeon is available for emergent issues 24hrsa day 7 days a week. Care plan: Follow-up appointment with at [facility] in days. For scheduling issues, please call [phone]. documented in this encounter Medications at Time [...] 09/07/2023 sodium chloride (OCEAN) 0.65 % Aerosol, Chester Administer 2 Sprays in each nostril every [...] there are no changes. Jaime Navas DMD specialty person * Jaime Navas DMD - 08/29/2023 10:30 [...] 7:02 PM CDT Operative Report Lisa Hermosillo [id number] DOS: 09/05/23 Pre-operative Diagnosis: MAXILLARY HYPOPLASIA Mandibular [...] 1:200,000 epi infiltrated at surgical site for residential analgesia. Patient turned back over to anesthesia for emergence, extubation and transport to PACU with out complication. Sponge and needle counts correct. Findings: Good postop occlusion Specimens: None Implants: Implant Name Type Inv. Item Serial No. Diagnostic Technician Lot No. LRB No. Used Action PLATE LOC FX CRV SHRT N-CMPRSN [id number] - SSTERILIZED AUG 30 2023 Plate PLATE LOC FX CRV SHRT N-CMPRSN [id number] STERILIZED AUG 30 2023 MICK SNELL LP LOAD 27 N/A 2 Implanted SCREW LVL 1 CMF 2.0X7MM CROSSDRIVE TLTS [id number] - SSTERILIZED AUG 30 2023 Screw SCREW LVL 1 CMF 2.0X7MM CROSSDRIVE [facility] [id number] STERILIZED AUG 30 2023 MICK SNELL LP [...] 30, 2023 Plate PLATE-L LP LT LNG .[id number] LOAD # 2 7 STERILIZED AUGUST 30, [...] to follow for discharge planning. JAKE Morel [id number] * Care Plan - Chitra Anderson RN - 09/05/2023 7:13 PM CDT Potential for pain related to surgical/procedural intervention Interventions: Assess level of pain/comfort utilizing verbal/nonverbal pain scales; assess culturalor adventist indicators attached to pain; administer pain medications [...] 1:13 PM CDT MAXILLARY HYPOPLASIA Case Notes ANTHEM--[id number] documented in this encounter Results * POC LACTIC ACID (09/05/2023 2:39 PM CDT) LACTIC ACID POC 1.6 <=2.0 mmol/L 09/05/2023 2:39 PM CDT [facility] SPECIMEN SOURCE, GASES POC Arterial 09/05/2023 2:39 PM CDT [facility] COMMENT, GASES POC Responsible Clinical Caregiver notified 09/05/2023 2:39 PM CDT [facility] Blood 09/05/2023 2:39 PM CDT 09/05/2023 2:40 PM CDT Juan Manuel Farnsworth MD POINT OF CARE TESTIN Kym [facility] CLIA# [id number] [address] [place] [address] * (ABNORMAL) BLOOD GAS,(INCL. H+H, LYTES, GLUC) (09/05/2023 2:39 PM CDT) Pathologist [facility] PH BLOOD POC 7.38 7.35 - 7.45 09/05/2023 2:39 PM CDT [facility] PCO2 POC 42 35 - 48 mm Hg 09/05/2023 2:39 PM CDT [facility] - [facility] PO2 POC 390(H) 83 - 108 mm Hg 09/05/2023 2:39 PM CDT [facility] TCO2 (CALC) POC 26(H) 19 - 24 mmol/L 09/05/2023 2:39 PM CDT [facility] HCO3 (CALC) POC 25 22 - 26 mmol/L 09/05/2023 2:39 PM CDT [facility] O2 SATURATION POC 100(H) 94 - 98 % 09/05/2023 2:39 PM CDT [facility] BASE EXCESS POC 0 -2 - 3 mmol/L 09/05/2023 2:39 PM CDT [facility] HEMOGLOBIN POC 10.4(L) 11.8 - 14.8 g/dL 09/05/2023 2:39 PM CDT [facility] HEMATOCRIT POC 31(L) 35 - 44 % 09/05/2023 2:39 PM CDT [facility] Comment:Estimated Value GLUCOSE POC 94 74 - 99 mg/dL 09/05/2023 2:39 PM CDT [facility] SODIUM POC 139 135 - 145 mmol/L 09/05/2023 2:39 PM CDT [facility] POTASSIUM POC 3.8 3.5 - 4.9 mmol/L 09/05/2023 2:39 PM CDT [facility] CHLORIDE POC 112(H) 98 - 107 mmol/L 09/05/2023 2:39 PM CDT [facility] CALCIUM IONIZED POC 5.0 4.7 - 5.1 mg/dL 09/05/2023 2:39 PM CDT [facility] PH TEMP CORRECT 7.38 7.35 - 7.45 09/05/2023 2:39 PM CDT [facility] PCO2 TEMP CORRECT 42 35 - 48 mm Hg 09/05/2023 2:39 PM CDT [facility] - . [facility] PO2 TEMP CORRECT 390(H) 83 - 108 mm Hg 09/05/2023 2:39 PM CDT [facility] SPECIMEN SOURCE, GASES POC Arterial 09/05/2023 2:39 PM CDT [facility] PATIENT'S TEMPERATURE POC 37.0 degrees 09/05/2023 2:39 PM CDT [facility] COMMENT, GASES POC Responsible Clinical Caregiver notified 09/05/2023 2:39 PM CDT [facility] Blood, arterial 09/05/2023 2 :39 PM CDT 09/05/2023 2:40 PM CDT Juan Manuel Farnsworth MD ABG ORDERABLES [facility]# [id number] [address] [facility] [place] [address] * VERIFICATION BLOOD GROUP (09/05/2023 1:17 PM CDT) ABO GROUP A 09/05/2023 1:19 PM CDT [facility] RH (D) TYPE Negative 09/05/2023 1:19 PM CDT [facility] -- .[facility] Blood Venipuncture / Unknown 09/05/2023 1:17 PM CDT 09/05/2023 1:17 PM CDT Lauren Borrero MD BLOOD BANK ORD ERABLES [facility] ERLIN# [id number] [address] [place] [address] documented in this encounter Visit Diagnoses Not [...] Provider: LOCO Kuhn) 0538 (Given - Provider: LOOC Kuhn)1256 (Given - Provider: Amelia Uriarte LPN)1739 (Given - Provider: Amelia Uriarte LPN) 0038 (Given - Provider: Jose Luis Pratt RN)0524 (Given - Provider: Jose Luis Pratt RN)1148 (Given - Provider: Carol Wsahington RN) naloxone (NARCAN) 0.4 mg/mL injection 0.1-0.4 [...] (See admin instructions), [facility]: Amelia Uriarte LPN - Comment: Pt decided she didnt want it -returned to) 1055 (Given - Provider: Carol [place] RN) oxymetazoline (AFRIN) 0.05 % nasal spray 2 Chester 2 Chester, Both Nostrils, EVERY 12 HOURS PRN, Starting on Tue09/05/23 at 2226, Until Tue09/07/23 at 1511, Congestion, Routine sodium chloride (OCEAN) 0.65 % nasal soln 2 Chester 2 Chester, Both Nostrils, EVERY 2 HOURS PRN, Starting on Tue09/05/23 at 2226, Until Tue09/07/23 at 1511, Congestion, Routine documented in this encounter Care Teams Industrial Hygenist Relationship Specialty Start Date End Date Almita Smallwood MD [address] [place] [address] PCP - General Internal Medicine 03/14/18 documented as of this encounter
--- OUTSIDE RECORDS SUMMARY | 2024-04-21 21:34 | XMS_ITS | Referral Summary ---
Author Organization [facility] Address [address] [place] [address] Care Team Providers Care Food Operations Manager Name Role Phone Almita Smallwood MD Primary Care Provider + Source Comments [facility],non-owned Affiliates and Associated Physician Practices is amultiple site organization consisting of ambulatory clinics and hospital sitesin [place], [place], [place] and [place]. This disclosure is being madepursuant to the Care Everywhere program and may not contain all information available regarding this patient. Last updated 18.[facility] Social History Tobacco Use Types Packs/Day Years Used Date Smoking Tobacco: Never Assessed Sex and Gender Information Value Date Recorded Sex Assigned at Not on file Gender Identity Not on file Sexual Orientation Not on file Plan of Treatment Not on file Procedures Procedure Name Priority Date/Time Associated Diagnosis Comments MAMMO LEFT DIAGNOSTIC Routine 05/26/2017 2:54 PM THERAPY SITE COORDINATOR from Last 3 Months or Most Recently Relevant to Health Maintenance Results * MAMMO LEFT DIAGNOSTIC (05/26/2017 2:54 PM THERAPY SITE COORDINATOR) Anatomical Region Laterality Modality Left Other Impressions 05/26/2017 3:13 PM THERAPY SITE COORDINATOR IMPRESSION: No evidence of malignancy in the left breast. ASSESSMENT: BI-RADS Category 2: Benign finding(s). RECOMMENDATION: Bilateral diagnostic mammogram in September 2017. Findings discussed with the patient by Dr. Cantu. I, Dr. KELLEN MANTILLA M.D. have personally reviewed and interpreted this examination/study. This report was electronically signed by KELLEN MANTILLA M.D. ??on 05/26/2017 3:13 PM . Narrative 05/26/2017 3:13 PM THERAPY SITE COORDINATOR LEFT DIAGNOSTIC MAMMOGRAM TECHNIQUE: Images were performed [...] Recently Relevant to Health Maintenance Care Teams Food Operations Manager Relationship Specialty Start Date End Date Almita Smallwood MD [address] [place] [address] PCP - General Internal Medicine 10/16/18
--- OUTSIDE RECORDS SUMMARY | 2024-04-21 21:34 | XMS_ITS | Clinical Summary ---
Author Organization [facility] Address [address] [place] [address] Care Team Providers Care Diesel Power Mechanic Name Role Phone Almita Smallwood MD Primary Care Provider + Source Comments [facility],non-owned Affiliates and Associated Physician Practices is amultiple site organization consisting of ambulatory clinics and hospital sitesin [place], [place], [place] and [place]. This disclosure is being madepursuant to the Care Everywhere program and may not contain all information available regarding this patient. Last updated 18.[facility] [employer] Social History Tobacco Use Types Packs/Day Years [...] MAMMO LEFT DIAGNOSTIC Routine 05/26/2017 2:54 PM JUNIOR BOOKKEEPER from Last 3 Months or Most Recently Relevant to Health Maintenance Results * MAMMO LEFT DIAGNOSTIC (05/26/2017 2:54 PM JUNIOR BOOKKEEPER) Anatomical Region Laterality Modality Left Other Impressions 05/26/2017 3:13 PM JUNIOR BOOKKEEPER IMPRESSION: No evidence of malignancy in the left breast. ASSESSMENT: BI-RADS Category 2: Benign finding(s). RECOMMENDATION: Bilateral diagnostic mammogram in September 2017. Findings discussed with the patient by Dr. Cantu. I, Dr. KELLEN MANTILLA M.D. have personally reviewed and interpreted this examination/study. This report was electronically signed by KELLEN MANTILLA M.D. ??on 05/26/2017 3:13 PM . Narrative 05/26/2017 3:13 PM JUNIOR BOOKKEEPER LEFT DIAGNOSTIC MAMMOGRAM TECHNIQUE: Images were performed [...] Recently Relevant to Health Maintenance Care Teams Diesel Power Mechanic Relationship Specialty Start Date End Date Almita Smallwood MD [address] [place] [address] PCP - General Internal Medicine 10/16/18
--- OUTSIDE RECORDS SUMMARY | 2024-04-21 21:34 | XMS_ITS | Encounter Summary ---
Author Organization [facility] Address [address] [facility] [place] [address] Care Team Providers Care Agency Cashier Name Role Phone Unavailable Primary Care Provider Unavailabl e Encounter Details Date Type Department Care Team (Latest Contact Info) Description 05/26/2017 Hospital Outpatient Visit Historic [facility] [address] [place] [address] Discharge Disposition: Home or Self Care Social [...] MAMMO LEFT DIAGNOSTIC Routine 05/26/2017 2:54 PM DRAFTER TOPOGRAPHICAL documented in this encounter Results * MAMMO LEFT DIAGNOSTIC (05/26/2017 2:54 PM DRAFTER TOPOGRAPHICAL) Anatomical Region Laterality Modality Left Other Impressions 05/26/2017 3:13 PM DRAFTER TOPOGRAPHICAL IMPRESSION: No evidence of malignancy in the left breast. ASSESSMENT: BI-RADS Category 2: Benign finding(s). RECOMMENDATION: Bilateral diagnostic mammogram in September 2017. Findings discussed with the patient by Dr. Cantu. I, Dr. KELLEN MANTILLA M.D. have personally reviewed and interpreted this examination/study. This report was electronically signed by KELLEN MANTILLA M.D. ??on 05/26/2017 3:13 PM . Narrative 05/26/2017 3:13 PM DRAFTER TOPOGRAPHICAL LEFT DIAGNOSTIC MAMMOGRAM TECHNIQUE: Images were performed [...]
--- OUTSIDE RECORDS SUMMARY | 2024-04-21 21:34 | XMS_ITS | Encounter Summary ---
Author Organization [facility] Address [address] [place] [address] Care Team Providers Care Quail Farmer Name Role Phone Almita Smallwood MD Primary Care Provider + Reason for Visit * Reason Comments Med Refill Encounter Details Date Type Department Care Team (Late st Contact Info) Description 07/03/2023 Refill [facility] EAR, NOSE AND THROAT [place] [facility] [address] [facility] [address] [place] [address] Jorge Luis Black MD [address] [facility]. [facility] [address] [place] [address] Social History Tobacco Use Types [...] on filedocumented in this encounter Care Teams Quail Farmer Relationship Specialty Start Date End Date Almita Smallwood MD [address] [place] [address] PCP - General Internal Medicine 03/14/18 documented as of this encounter
--- OUTSIDE RECORDS SUMMARY | 2024-04-21 21:34 | XMS_ITS | Clinical Summary ---
Author Organization [facility] Address [address] [place] [address] Care Team Providers Care Home Demonstrator Name Role Phone Almita Smallwood MD Primary [...] Active sodium chloride (OCEAN) 0.65 % Aerosol, [place] Administer 2 Sprays in each nostril every [...] malignancy. Assessment & Plan (02/25/2020 8:08 AM BAR HOST): I have explained to her that she [...] her pharmacy. She knows to contact her sole molding machine operator should she develop any vaginal bleeding. Will [...] PNEUM OCOCCAL CONJUGATE VACCINE 20-VALENT (PCV20), POLYSACCHARIDE [id number] CONJUGATE, ADJUVANT 0.5 ML (PF) IM 10/23/2021 [...] 01/07/2022, 10/23/2021 Medical Devices Implanted Type Area Pipe Testing Technician Device Identifier Shelf Expiration Date Model / Serial / Lot Plate Loc Fx Crv Shrt N-Cmprsn [id number] - Ssterilized Aug 30 2023 Implanted:Qty: 2 on 09/05/2023 by Juan Manuel Farnsworth MD at [facility] Plate N/A: Mandible MICK SNELL LP [id number] / STERILIZED AUG 30 2023 / LOAD 27 Description:Bilateral Plate-L Lp Rt Lng 0.6mm [id number] - Sload # 2 7 Sterilized August 30, 2023 Implanted:Qty: 1 on 09/05/2023 by Juan Manuel Farnsworth MD at [facility] Plate Right: Maxilla MICK SNE[employer] LP [id number] / LOAD # 2 7 STERILIZED AUGUST 30, 2023 / Plate-L Lp Lt Lng .6mm [id number] - Sload # 2 7 Sterilized August 30, 2023 Implanted:Qty: 1 on 09/05/2023 by Juan Manuel Farnsworth MD at [facility] Plate Left: Maxilla M[employer] S[employer] LP [id number] / LOAD # 2 7 STERILIZED AUGUST 30, 2023 / Mini 100 Degree L Plate Right Implanted:Qty: 1 on 09/05/2023 by Juan Manuel Farnsworth MD at [facility] Plate Right: Maxilla MICK SNE[employer] LP [id number] / / Mini 100 Degree L Plate Left Implanted:Qty: 1 on 09/05/2023 by Juan Manuel Farnsworth MD at [facility] Plate Left: Maxilla MICK SNELL LP [id number] / / Description:MICK HERNÁNDEZ SITION# [id number] Screw Lvl 1 Cmf 2.0x7mm Crossdrive Tlts [id number] - Ssterilized Aug 30 2023 Implanted:Qty: 8 on 09/05/2023 by Juan Manuel Farnsworth MD at [facility] Screw N/A: Mandible MICK SNE[employer] LP [id number] / STERILIZED AUG 30 2023 / LOAD 27 Description:Bilateral Screw Sd Maxdr 2.0x7mm [id number] - Sload # 2 7 Sterilized August 30, 2023 Implanted:Qty: 18 on 09/05/2023 by Juan Manuel Farnsworth MD at [facility] Screw N/A: Maxilla MICK SNE[employer] LP [id number] / LOAD # 2 7 STERILIZED AUGUST 30, 2023 / Description:Bilateral Screw Er Mxdrv 2.3x7mm -[id number] - Sload # 2 7 Sterilized August 30, 2023 Implanted:Qty: 2 on 09/05/2023 by Juan Manuel Farnsworth MD at [facility] Screw Right: Maxilla MICK SNE[employer] LP [id number] / LOAD # 2 7 STERILIZED AUGUST 30, 2023 / Explanted Type Area Pipe Testing Technician Device Identifier Shelf Expiration Date Model / Serial / Lot Screw Er Mxdrv 2.3x7mm [id number] - Sload # 2 7 Sterilized August 30, 2023 Explanted:Qty: 1 on 09/05/2023 by Juan Manuel Farnsworth MD at [facility] Screw N/A: Maxilla MICK SNELL LP [id number] / LOAD # 2 7 STERILIZED AUGUST 30, 2023 / Screw Sd Maxdr 2.0x5mm [id number] - Sload # 2 7 Sterilized August 30, 2023 Explanted:Qty: 3 on 09/05/2023 by Juan Manuel Farnsworth MD at [facility] Screw N/A: Nuno SNELL LP -[id number] / LOAD # 2 7 STERILIZED AUGUST 30, 2023 / Procedures Procedure Name Priority Date/Time Associated Diagnosis Comments MAMMO 3D RUTH SCREEN BILAT W OR WO CAD Routine 02/21/2020 1:07 PM BAR HOST Encounter for screening mammogram for malignant neoplasm of breast History of ductal carcinoma in situ (DCIS) of breast from Last 3 Months or Most Recently Relevant to Health Maintenance Results * MAMMO SCRN BILAT 3D RUTH W OR WO CAD (02/21/2020 1:07 PM BAR HOST) Anatomical Region Laterality Modality Breast Bilateral Mammography 02/21/2020 1:07 PM BAR HOST Addenda Addendum by Fiorella Hancock MD on 03/05/2020 7:28 AM BAR HOST Comparison is now made with previous films from [facility] dated 09/21/2016. There are post biopsy changes on the right. There are postlumpectomy changes in the upper outer left breast. There are no other significant interval changes. Recommend annual follow-up. OVERALL FINAL ASSESSMENT: ??BI-RADS CATEGORY 1: ??Negative. Impressions 02/21/2020 5:08 PM BAR HOST IMPRESSION: [facility] will request the patient's previous outside studies in order to assess for stability. An addendum will be provided after reviewing the outside exams. DICTATION LOCATION: [facility] 02/21/2020 5:08 PM BAR HOST BILATERAL FULL-FIELD DIGITAL SCREENING MAMMOGRAM WITH CAD [...] Incomplete, needs comparison to prior mammograms. IMPRESSION: [facility]iology will request the patient's previous outside studies in order to assess for stability. An addendum will be provided after reviewing the outside exams. DICTATION LOCATION: [facility] Almita Smallwood MD MAMMO ORDERABLES from Last 3 Months or Most Recently Relevant to Health Maintenance Advance Directives For more information, please contact: [phone] * Full Code (Latest Code Status on File) Date Activated Date Inactivated Comments 09/05/2023 10:26 PM 09/07/2023 3:21 PM * Full Code Date Activated Date Inactivated Comments 09/05/2023 12:06 PM 09/05/2023 10:26 PM Care Teams Home Demonstrator Relationship Specialty Start Date End Date Almita Smallwood MD [address] [place] [address] PCP - General Internal Medicine 03/14/18
--- OUTSIDE RECORDS SUMMARY | 2024-04-21 21:34 | XMS_ITS | Encounter Summary ---
Author Organization [facility] Address [address] [place] [address] Care Team Providers Care Patent Legal Assistant Name Role Phone Almita Smallwood MD Primary Care Provider + Reason for Visit * Auth/Cert (Routine) Specialty Diagnoses / Procedures Referred By Tati campos Referred To Contact Perioperative Diagnoses MAXILLARY HYPOPLASIA Procedures GA RCNSTJ MIDFACE LEFORT I 2 PIECES W/O BONE GRAFT GA RCNSTJ MNDBLR RAMI&/BDY SGTL SPLT W/INT RGD FI GA IMPRESSION & PREPARATION ORAL SURGICAL SPLINT LEFORT OSTEOTOMY Juan Manuel Farnsworth MD [address] [facility] [address] [place] [address] [facility] Or [address] [place] [address] Referral ID Status Reason Start Date Expiration Date Visits Re quested Visits Authorized [id number] 1 1 Encounter Details Date Type Department Care Team (Late st Contact Info) Description 09/05/2023 1:59 PM CDT Anesthesia Event [facility] Operating Room [address] [place] [address] Karyn Flores MD [address] [place] [address] Anesthesia Record Procedure Summary Procedure [...] mg oxymetazoline (AFRIN) 0.05% nasal spray 2 Anamoose esmolol (BREVIBLOC) 10??mg/mL injection 40 mg labetalol [...] waveform capnography 09/05/23 1412 by Evangelina Connell, TANK PROCESSOR 09/05/23 1859 by Eric López AA-C ART Line Orientation: Left:; Location: radial artery; Size (Ga): 20 Ga; Removal Interventions: direct pressure 09/05/23 1425 by Evangelina Connell, TANK PROCESSOR 09/05/23 203 by Warner Mccormack, JUDI Indwelling [...] [place] Age: 63 y.o. Sex: female CSN: [id number] Procedure(s): LEFORT OSTEOTOMY No Known Allergies Current [...] was obtained directly from the patient or self pay representative or caregiver or another available healthcare resource and updated in Pict EMR. Social History Tobacco Use Smoking Status Former Current packs/day: 0.00 Average packs/day: 2.0 packs/day for 20.0 years (40.0 ttl pk-yrs) Types: Cigarettes Start date: 01/07/1985 Quit date: 01/07/2005 Years since quittin.6 Smokeless Tobacco Never Patient screened for tobacco use and identified as a Non-User of tobacco. REPORT AND NECESSARY FOLLOW-UP History and physical performed in [facility]; tests (ECG, blood work) reviewed. Abnormal Results [...] which requires a medically appropriate history and/or examination:91132 - New (15-29 minutes total time) - [...] risks discussed with Patient and Patient Designated Rolled Materials Worker. Use of blood products: consented to blood products. Plan discussed with Curve Saw Operator and Surgeon/Proceduralists. Post-op Pain Control Plan to use IV or IM medication, Per surgeon and Oral medication for post-op pain control. Plan for postoperative opioid use Smoking Compliance patient did not smoke on day of surgery documented in this encounter Plan of Treatment Not on file documented as of this encounter Procedures Procedure Name Priority Date/Time Associated Diagnosis Comments GA ANES INSERT CATH, ART, PERCUT, SHORTTERM Routine 09/05/2023 2:50 PM CDT GA ANES INSERT ENDOTRACHEAL AIRWAY Routine 09/05/2023 2:12 PM CDT documented in this encounter Results * GA ANES INSERT CATH, ART, PERCUT, SHORTTERM (09/05/2023 [...] Flores MD PROCEDURE/MINOR RAY GICAL ORDERABLES * GA ANES INSERT ENDOTRACHEAL AIRWAY (09/05/2023 2:12 PM CDT) Narrative Evangelina Connell CRNA - 09/05/2023 2:12 PM CDT Evangelina Connell CRNA ? 09/05/2023 ??2:50 PM Airway Date/Time: 09/05/2023 2:12 PM Location: OR Plan: routine intubation Patient Identity Confirmed by: ??Armband Airway: not difficult Staffing Performed: TANK PROCESSOR Authorized by: Karyn Flores MD ?? Performed [...] dilate right nares. Karyn Flores MD PROCEDURE/MINOR RAY GICAL ORDERABLES documented in this encounter Visit [...] Intra-op Given 09/05/2023 2:08 PM CDT 1 Anamoose Given 09/05/2023 1:59 PM CDT 1 Anamoose phenylephrine syringe IV, INTRA-PROCEDURE PRN, Starting on [...] mg documented in this encounter Care Teams Patent Legal Assistant Relationship Specialty Start Date End Date Almita Smallwood MD [address] [place] [address] PCP - General Internal Medicine 03/14/18 documented as of this encounter
--- OUTSIDE RECORDS SUMMARY | 2024-04-21 21:34 | XMS_ITS | Encounter Summary ---
Author Organization [facility] Address [address] [facility] [place] [address] Care Team Providers Care X Ray Developer Name Role Phone Almita Smallwood MD Primary Care Provider + Reason for Visit * Radiology Services (Routine) - Closed Specialty Diagnoses / Procedures Referred By Prashanthac t Referred To Contact MRI Diagnoses Nipple discharge Procedures MRI BREAST BILAT WWO CONTRAST Laverne Thorpe DO [address] [place] [phone] Referral ID Status Reason Start Date Expiration Date Visits Re quested Visits Authorized [id number] Closed 10/16/2018 11/16/2018 1 1 Encounter Details Date Type Department Care Team (Late st Contact Info) Description 10/16/2018 3:55 PM CDT - 10/16/2018 11:59 PM CDT Hospital Encounter [facility] MRI [address] [place] [address] Laverne Thorpe DO [address] [place] [phone] Discharge Disposition: Home or Self Care [...] was processed by and interpreted on a Léa et Léo gravity prospecting observer helper including 3-D volume rendering, [...] ORDERABLES * CREATININE BLOOD - POCT (IP) [facility] (10/16/2018 4:57 PM CDT) Creatinine POCT 0.8 0.3 - 1.3 mg/dL [facility] eGFR POCT 60 60 ml/min [facility] Blood BLOOD SPECIMEN / Unknown 10/16/2018 4:57 PM CDT Laverne Thorpe DO LAB - POINT OF CARE ORDERABLES Performing Organization Address City/State/[facility] Co de Phone Number [facility] [address] [phone] documented in this encounter Visit Diagnoses Diagnosis [...] mL documented in this encounter Care Teams X Ray Developer Relationship Specialty Start Date End Date Almita Smallwood MD [address] [place] [address] PCP - General Internal Medicine 10/16/18 documented as of this encounter
--- OUTSIDE RECORDS SUMMARY | 2024-04-21 21:34 | XMS_ITS | Encounter Summary ---
Author Organization [facility] Address [address] [place] [address] Care Team Providers Care Diesel Instructor Name Role Phone Almita Smallwood MD Primary Care Provider + Reason for Visit * Reason Comments Med Refill Encounter Details Date Type Department Care Team ([facility] st Contact Info) Description 06/10/2022 Refill [facility] EAR, NOSE AND [facility]ROAT [facility] [address] [facility] [address] [place] [address] Jorge Luis Black MD [address] [facility]. [facility] [address] [place] [address] Social History Tobacco Use Types [...] Coronavirus/COVID-19? No / Unsure 05/12/2022 10:48 AM HARDWOOD FLOORING SPECIALIST documented as of this encounter Plan of Treatment Not on file documented as of this encounter Visit Diagnoses Not on filedocumented in this encounter Care Teams Diesel Instructor Relationship Specialty Start Date End Date Almita Smallwood MD [address] [place] [address] PCP - General Internal Medicine 03/14/18 documented as of this encounter
--- OUTSIDE RECORDS SUMMARY | 2024-04-21 21:34 | XMS_ITS | Encounter Summary ---
Author Organization [facility] Address [address] [place] [address] Care Team Providers Care Workers Compensation Attorney Name Role Phone Almita Smallwood MD [...] on filedocumented in this encounter Care Teams Workers Compensation Attorney Relationship Specialty Start Date End Date Almita Smallwood MD [address] [place] [address] PCP - General Internal Medicine 03/14/18 documented as of this encounter
--- OUTSIDE RECORDS SUMMARY | 2024-04-21 21:34 | XMS_ITS | Encounter Summary ---
Author Organization [facility] Address [address] [place] [address] Care Team Providers Care Retail Presentation Specialist Name Role Phone Almita Smallwood MD [...] on filedocumented in this encounter Care Teams Retail Presentation Specialist Relationship Specialty Start Date End Date Almita Smallwood MD [address] [place] [address] PCP - General Internal Medicine 03/14/18 documented as of this encounter
--- OUTSIDE RECORDS SUMMARY | 2024-04-21 21:34 | XMS_ITS | Encounter Summary ---
Author Organization [facility] Address [address] [place] [address] Care Team Providers Care Grain Packer Name Role Phone Almita Smallwood MD [...] W/O CONTRAST MATERIAL Juan Manuel Farnsworth MD [address] [place] [address] [place] [address] [address] [facility] [address] [place] [address] [place] [address] Referral ID Status Reason Start Date Expiration Date Visits Re quested Visits Authorized [id number] Closed 08/09/2023 09/08/2024 1 1 Encounter Details Date Type Department Care Team (Latest Contact Info) Description 08/12/2023 12:13 PM CDT - 08/12/2023 11:59 PM CDT Hospital Encounter [facility] [address] [place] [address] Juan Manuel Farnsworth MD [address] [place] [address] [place] [address] Discharge Disposition: Home or Self Care [...] 09/07/2023 sodium chloride (OCEAN) 0.65 % Aerosol, [place] Administer 2 Sprays in each nostril every [...] Iterative Reconstruction Technique. ?? DICTATION LOCATION: Location [address] [place] [address] 08/12/2023 3:[address] FACIAL BONES [...] of Iterative Reconstruction Technique. DICTATION LOCATION: Location [address] [place] [address] ORDERABLES documented in this encounter Visit Diagnoses Not on filedocumented in this encounter Care Teams Grain Packer Relationship Specialty Start Date End Date Almita Smallwood MD [address] [place] [address] PCP - General Internal Medicine 03/14/18 documented as of this encounter
--- OUTSIDE RECORDS SUMMARY | 2024-04-21 21:34 | XMS_ITS | Encounter Summary ---
Author Organization [facility] Address [address] [place] [address] Care Team Providers Care Color Separation Photographer Name Role Phone Almita Smallwood MD Primary Care Provider + Encounter Details Date Type Department Care Team (Late st Contact Info) Description 11/09/2018 Lab Requisition [facility] Care Pathology Lab [address] [place] [address] Jorge Luis Tompkins MD [address] [place] [id number] Social History Tobacco Use Types Packs/Day Years [...] Case Report Surgical Pathology Report ? Case: [id number] ? Authorizing Provider: ??Jorge Luis Tompkins MD ?Collected: ? 11/07/2018 08:00 AM ? Pathologist: ? Linda Ring MD ?? Received: ?11/09/2018 10:42 AM ? Specimen: ?Lymph Node Biopsy, [id number] ? 11/10/2018 4:54 PM [facility] PATHOLOGY LAB Final Diagnosis Lymph node, right axilla, excisional biopsy: - Benign lymph node. - No evidence of malignancy. - See description. 11/10/2018 4:54 PM [facility] PATH[facility]Y LAB Microscopic Description and Comment Review [...] is performed on block A2 in the [facility] Department of Pathology with appropriately reactive controls. [...] infiltrate in the node. The report from [facility] describing an atypical lymphoid proliferation on needle core biopsy most likely represents sampling of primary follicles rather than a lymphoproliferative disorder; however, those slides are not provided for review in conjunction with this case. Clinical correlation is advised. KR 11/10/2018 4:54 PM CDT [facility] PATHOLOGY LAB Clinical History 58 year old woman presents with right axillary lymphadenopathy. History of ductal carcinoma in situ. 11/10/2018 4:54 PM T [facility] PATHOLOGY LAB Materials Received Received are 2 slides and 2 blocks labeled as [id number] along with the outside pathology report. [place] [address]. All materials are returned to the referring institution, along with a copy of our final report. 11/10/2018 4:54 PM T [facility] PATHOLOGY LAB Disclaimer The performance characteristics of [...] interpretation of this case is performed by [facility] Pathology at [facility], [address] [place] [address]. 11/10/2018 4:54 PM T [facility] PATHOLOGY LAB Embedded Images 11/10/2018 4:54 PM CDT [facility] PATHOLOGY LAB Pathology/Cytolo gy BIOPSY OF LYMPH NODE / Unknown 11/07/2018 8:00 AM CDT 11/09/2018 10:42 AM CDT Jorge Luis Tompkins MD LAB - PATHOLOGY/CYTO LOGY ORDERABLES [facility] PATHOLOGY LAB [address] [place] [address], [facility] [phone] documented in this encounter Visit Diagnoses Not on filedocumented in this encounter Care Teams Color Separation Photographer Relationship Specialty Start Date End Date Almita Smallwood MD [address] [place] [address] PCP - General Internal Medicine 10/16/18 documented as of this encounter
--- OUTSIDE RECORDS SUMMARY | 2024-04-21 21:34 | XMS_ITS | Encounter Summary ---
Author Organization [facility] Address [address] [facility] Attn: Epic Prelude ADT [facility] [address] Care Team Providers Care Metallurgist Process Name Role Phone Almita Smallwood MD Primary [...] Coronavirus/COVID-19? No / Unsure 04/29/2022 2:25 PM DEHYDROGENATION SUPERVISOR documented as of this encounter Plan of Treatment Not on file documented as of this encounter Visit Diagnoses Not on filedocumented in this encounter Care Teams Metallurgist Process Relationship Specialty Start Date End Date Almita Smallwood MD [address] [place] [address] PCP - General Internal Medicine 03/14/18 documented as of this encounter
--- OUTSIDE RECORDS SUMMARY | 2024-04-21 21:34 | XMS_ITS | Encounter Summary ---
Author Organization [facility] Address [address] [facility] [place] [address] Care Team Providers Care [facility] Pricing Consultant Name Role Phone Unavailable Primary Care Provider Unavailabl e Encounter Details Date Type Department Care Team (Latest Contact Info) Description 11/05/2016 Hospital Outpatient Visit [facility] OUTPAT[facility] SERVICES [address] [place] [phone] ProviderCande MD Discharge Disposition: Home or Self [...]
--- OUTSIDE RECORDS SUMMARY | 2024-04-21 21:34 | XMS_ITS | Encounter Summary ---
Author Organization [facility] Address [address] [place] [address] Care Team Providers Care Customer Marketing Intern Name Role Phone Alimta Smallwood MD Primary Care Provider + Reason for Visit * Physical Therapy (Routine) - Closed Specialty Diagnoses / Procedures Referred By Tati campos Referred To Contact Physical Therapy Diagnoses Acute right-sided low back pain with right-sided sciatica Zay Chen NP NO ADDRESS ON FILE Nghia Will, Physical Therapist Referral ID Status Reason Start Date Expiration Date Visits Requested Visits Authorized [id number] Closed Performing Department to Schedule 03/25/2022 04/17/2023 57 [phone] Encounter Details Date Type Department Care Team (Late st Contact Info) Description 04/29/2022 2:26 PM FINANCE PROFESSOR - 04/29/2022 11:59 PM [facility] Hospital Encounter [facility] [address] [address] Zay hCen NP NO ADDRESS ON FILE Almita Smallwood MD [address] [place] [address] Nghia Will, Physical Therapist Acute [...] Coronavirus/COVID-19? No / Unsure 04/29/2022 2:25 PM FINANCE PROFESSOR documented as of this encounter Medications at [...] visits used/60 (3 used) visits approved by [facility] by 04-17-22 Authorization: n/a Summary List: [...] - Negative bilaterally. OBJECTIVE Therapeutic Exercise: Re-assessment Slovenian ball LTR [address] Slovenian ball bridging 1 x15 Supine colombian ball hamstring curls with lower abdominal isometrics [...] and less LBP with squatting down to worm picker something medium or heavy off the [...] Flexibility, Manual Therapy, Core Stabilization [place] License #: [id number] [facility], [address], [address] [address] Fax NCE PROFESSOR documented in this encounter Plan of Treatment Not on file documented as of this encounter Visit Diagnoses Not on filedocumented in this encounter Care Teams Customer Marketing Intern Relationship Specialty Start Date End Date Almita Smallwood MD [address] [place] [address] PCP - General Internal Medicine 03/14/18 documented as of this encounter
--- OUTSIDE RECORDS SUMMARY | 2024-04-21 21:34 | XMS_ITS | Encounter Summary ---
Author Organization [facility] Address [address] [facility] Attn: [place] [address] Care Team Providers Care Maintenance Supervisor 2Nd Shift Name Role Phone Almita Smallwood MD Primary [...] Coronavirus/COVID-19? No / Unsure 05/12/2022 10:48 AM HOGSHEAD FILLER documented as of this encounter Plan of Treatment Not on file documented as of this encounter Visit Diagnoses Not on filedocumented in this encounter Care Teams Maintenance Supervisor 2Nd Shift Relationship Specialty Start Date End Date Almita Smallwood MD [address] [place] [address] PCP - General Internal Medicine 03/14/18 documented as of this encounter
--- OUTSIDE RECORDS SUMMARY | 2024-04-21 21:34 | XMS_ITS | Encounter Summary ---
Author Organization [facility] Address [address] [place] [address] Care Team Providers Care Dye Machine Tender Name Role Phone Unavailable Primary Care Provider Unavailabl e Encounter Details Date Type Department Care Team (Late st Contact Info) Description 05/26/2017 Hospital Outpatient Visit Historic [facility] [address] [place] [phone] Laverne Thorpe, DO [address] [phone] Discharge Disposition: Home or Self Care Social [...]
--- OUTSIDE RECORDS SUMMARY | 2024-04-21 21:34 | XMS_ITS | Encounter Summary ---
Author Organization [facility] Address [address] [facility] Attn: [facility] [place] [address] Care Team Providers Care Insurance Claims Adjuster Name Role Phone Almita Smallwood MD Primary [...] on filedocumented in this encounter Care Teams Insurance Claims Adjuster Relationship Specialty Start Date End Date Almita Smallwood MD [address] [place] [address] PCP - General Internal Medicine 03/14/18 documented as of this encounter
--- OUTSIDE RECORDS SUMMARY | 2024-04-21 21:34 | XMS_ITS | Encounter Summary ---
Author Organization [facility] Address [address] [place] [address] Care Team Providers Care Meat Cutter Apprentice Name Role Phone Almita Smallwood MD [...] on filedocumented in this encounter Care Teams Meat Cutter Apprentice Relationship Specialty Start Date End Date Almita Smallwood MD [address] [place] [address] PCP - General Internal Medicine 03/14/18 documented as of this encounter
--- OUTSIDE RECORDS SUMMARY | 2024-04-21 21:34 | XMS_ITS | Encounter Summary ---
Author Organization [facility] Address [address] [place] [address] Care Team Providers Care Fashion Coordinator Name Role Phone Almita Smallwood MD [...] on filedocumented in this encounter Care Teams Fashion Coordinator Relationship Specialty Start Date End Date Almita Smallwood MD [address] [place] [address] PCP - General Internal Medicine 03/14/18 documented as of this encounter
--- OUTSIDE RECORDS SUMMARY | 2024-04-21 21:34 | XMS_ITS | Encounter Summary ---
Author Organization [facility] Address [address] [facility] [place] [address] Care Team Providers Care Sales Representative Business Courses Name Role Phone Unavailable Primary Care Provider Unavailabl e Encounter Details Date Type Department Care Team (Latest Contact Info) Description 11/05/2016 Hospital Outpatient Visit Historic [facility] MRI [address] [place] [phone] Discharge Disposition: Home or Self Care Social [...] AM CDT CREATININE BLOOD - POCT (IP) [facility] Routine 11/05/2016 documented in this encounter [...] Dr. Thorpe. Dictated by Aj Lopez MD (Shuttle Route Vehicle Operator) Dr. RAPHAEL Palacio M.D. have personally reviewed and interpreted this examination/study. This report was electronically signed by RAPHAEL VALENZUELA M.D. ??on 11/05/2016 2:11 PM . 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 COMPARISON: Comparison is made with prior bilateral screening and diagnostic mammogram from September 2016 [facility] TECHNIQUE: Multiplanar multisequence MR imaging of both breasts before and following the administration of 6 cc of Gadavist. Dynamic phase imaging was performed in the axial plane. Exam was processed by and interpreted on a Lanyrd gravity meter observer including 3-D volume rendering, subtraction image processing [...] bilateral screening anddiagnostic mammogram from September 2016 [facility] TECHNIQUE: Multiplanar multisequence MR imaging of both breasts before andfollowing the administration of 6 cc of Gadavist. Dynamic phase imagingwas performed in the axial plane. Exam was processed by and interpreted mariola Integrated Micro-Chromat[employer] Systemsd gravity meter observer including 3-D volume rendering, subtraction image processing [...] Dr. Thorpe. Dictated by Aj Lopez MD (Shuttle Route Vehicle Operator) I, Dr. RAPHAEL VALENZUELA M.D. have personally reviewed and interpretedthis examination/study. This report was electronically signed by RAPHAEL VALENZUELA M.D. on11/05/2016 2:11 PM . Historical Provider MR ORDERABLES * (ABNORMAL) CREATININE BLOOD - POCT (IP) [facility] (11/05/2016) Creatinine POCT 1.03 0.3 - 1.3 mg/dL [facility] eGFR POCT 58(A) 60 ml/min [facility] 11/05/2016 Louisa Mantilla MD LAB - POINT OF CA RE ORDERABLES [facility] documented in this encounter Visit Diagnoses Diagnosis Malignant neoplasm of female breast (HCC) documented in this encounter
--- OUTSIDE RECORDS SUMMARY | 2024-04-21 21:34 | XMS_ITS | Encounter Summary ---
Author Organization [facility] Address [address] [place] [address] Care Team Providers Care Steel Tier Name Role Phone Almita Smallwood MD Primary [...] on filedocumented in this encounter Care Teams Steel Tier Relationship Specialty Start Date End Date Almita Smallwood MD [address] [place] [address] PCP - General Internal Medicine 03/14/18 documented as of this encounter
--- OUTSIDE RECORDS SUMMARY | 2024-04-21 21:34 | XMS_ITS ---
Author Organization [facility] Address [address] [facility] [place] [address] Care Team Providers Care Supervisor Mechanic Boilermaking Name Role Phone Almita Smallwood MD Primary [...] malignancy. Assessment & Plan (02/25/2020 8:08 AM CHAIN MAKER): I have explained to her that she [...] her pharmacy. She knows to contact her egg processor should she develop any vaginal bleeding. Will [...] treatments are documented for this patient in [place]. Treatments may have been administered in another [...]
--- OUTSIDE RECORDS SUMMARY | 2024-04-21 21:34 | XMS_ITS | Encounter Summary ---
Author Organization [facility] Address [address] [place] [address] Care Team Providers Care Finishing Operator Name Role Phone Almita Smallwood MD [...] on filedocumented in this encounter Care Teams Finishing Operator Relationship Specialty Start Date End Date Almita Smallwood MD [address] [place] [address] PCP - General Internal Medicine 03/14/18 documented as of this encounter
--- OUTSIDE RECORDS SUMMARY | 2024-04-21 21:34 | XMS_ITS | Encounter Summary ---
Author Organization [facility] Address [address] [place] [address] Care Team Providers Care Monomer Purification Operator Name Role Phone Almita Smallwood MD [...] on filedocumented in this encounter Care Teams Monomer Purification Operator Relationship Specialty Start Date End Date Almita Smallwood MD [address] [place] [address] PCP - General Internal Medicine 03/14/18 documented as of this encounter
--- OUTSIDE RECORDS SUMMARY | 2024-04-21 21:34 | XMS_ITS | Encounter Summary ---
Author Organization [facility] Address [address] [facility] Attn: [place] [address] Care Team Providers Care Provisioning Specialist Name Role Phone Almita Smallwood MD [...] Coronavirus/COVID-19? No / Unsure 04/16/2022 7:59 AM ACOUSTICAL TILE PATTERNMAKER documented as of this encounter Plan of Treatment Not on file documented as of this encounter Visit Diagnoses Not on filedocumented in this encounter Care Teams Provisioning Specialist Relationship Specialty Start Date End Date Almita Smallwood MD [address] [place] [address] PCP - General Internal Medicine 03/14/18 documented as of this encounter
--- OUTSIDE RECORDS SUMMARY | 2024-04-21 21:34 | XMS_ITS | Encounter Summary ---
Author Organization [facility] Address [address] [place] [address] Care Team Providers Care Tailer Out Name Role Phone Almita Smallwood MD Primary Care Provider + Encounter Details Date Type Department Care Team (Latest Contact Info) Description 08/12/2023 8:59 AM CDT - 08/12/2023 11:59 PM CDT Hospital Encounter [facility] [address] [place] [address] Juan Manuel Farnsworth MD [address] [facility] [address] [place] [address] Discharge Disposition: Home or Self Care Anesthesia [...] 09/07/2023 sodium chloride (OCEAN) 0.65 % Aerosol, [place] Administer 2 Sprays in each nostril every [...] Please report to the: [facility] [address] [facility] [address] Date of Procedure: 09/05/23 Please follow these [...] office and then the OR desk at [phone], which is available 08/11. *Notify the [facility] department ([phone]) of any changes in your medical condition or medications. If you have any questions, call the [facility] Center at [phone]; Tuesday-Tuesday 7:30am-4:00pm Adult Fasting Instructions Outpatient and [...] If you have any questions, call the [facility] at [phone]?- Tuesday-Tuesday 7:30 a.m. - 4:00 p.m.? WITHIN [...] your surgery. BRING your insurance cards and cdl b driver's license or photo ID. DO NOT [...] immune enhancing nutrients, such as Arginine and [id number] Acids, may result infewer surgical complications and [...] as Equate. Supplements available for purchase at [facility] - Ensure Surgery, Ensure Max, Ensure Enlive, (phone: [phone]) Supplements are also available for purchase at [facility] and many other grocery stores and pharmacies. Day of Surgery Guidelines. Follow the Adult Fasting Instructions provided to you by the [facility]ACE Center for your specific surgery. For questions regarding your day of surgery diet or fasting guidelines please call the [facility] Center at [phone], Tuesday-Tuesday. 7:30 a.m. to 4 p.m. Oral [...] recovery. Questions for a Registered Dietitian: Call [phone] PLEASE NOTIFY your surgeon promptly if you begin to feel ill prior to your surgery. A wound or rash at the surgical site or any other kind of illness may require postponing the surgery to another date for your safety. If this occurs within 24 hours of your surgery, please contact your surgeon's office and then the OR desk at [phone], which is available 08/11. * Louise-OP - Sara Funk RN - 08/12/2023 9:31 AM CDT Images from the original note were not included. LUCIO AGUILAR [facility] Routine Orders Protocol [facility] Approved by: [facility] - Medical Executive Committee Approval Date: 07/07/2023 SCOPE: For all patients being pre-screened in the [facility] Clinic for surgery/procedures scheduled at [facility] and the [place] for [facility] Medicine [facility] ORDERS ARE ENTERED ???PER PROTOCOL?? Enter the protocol in the patient's electronic health record using smartphrase: .paceroutineordersprotocol Laboratory Orders: [facility]ACE/Anesthesiology Care Screening for Procedures Laboratory exams obtained within 3 months prior to surgery are acceptable if normal, or at baseline. Hematocrit/Hemoglobin ([id number]) Cases of expected major blood loss in patients of any age as evidenced by an order for Type and Cross or Type and Screen. PT/INR (Lyw971) should be drawn day of surgery for patients: Taking Warfarin (Coumadin) or who have had Warfarin (Coumadin) discontinued within prior 7 days BMP (Lab15) patients with: Diabetes Renal disease Dialysis patients: Day of Surgery; If dialysis on day of surgery, post-dialysis Patients taking the following medications: Digoxin Diuretics Steroids BUN (Lxk330)/ Serum Cr (Lab66) When use of intravenous contrast dye is planned Liver function panel (Lab20) in any patient with: Jaundice, or active liver disease HgbA1c: If result not available from within 3 months of [facility] phone or in-person contact, for patients that [...] otherwise ordered by a member of the [facility] Anesthesiology Staff. STOP Seven (7) DAYS PRIOR [...] 24 HOURS PRIOR TO PLANNED ARRIVAL AT [facility]: use of angiotensin-converting enzyme (JU) inhibitor and angiotensin receptor vandana (ARB). HOLD ON THE MORNING OF SURGERY/PROCEDURE: Diuretics (EXCEPTION: patients with CHF) Opioid ANTAGONISTS Continue-Prescribed medications on usual schedule and take medication day of surgery with sips of water to swallow Aspirin and NSAIDS unless specifically instructed by surgeon to discontinue. Patients taking a gabapentinoid ATTORNEY GENERAL continue usual medication and doses up to [...] cardiac, vascular, orurologic surgery and patients with IL/stent within 6 months, age greater than 90 years old HOLD CELECOXIB IF PREOPERATIVE TORADOL ORDERED For patients less than 70 years old, 400 mg, oral, pre-procedure once For patients greater than or equal to 70 years old, 200 mg, oral, pre-procedure once Blood Bank: For surgical procedures, prepare blood per [facility] Blood Bank Orders and Patient Identification for Blood Products Policy unless additional blood or blood products have been ordered by the provider, then follow provider order. Educational Materials: (to be provided to patients if relevant to their care and present in person to the [facility] Clinic) [facility] NPO Guidelines Attachment STL FNS Nutrition [...] [place] Age: 63 y.o. Sex: female CSN: [id number] Procedure(s): LEFORT OSTEOTOMY No Known Allergies Current [...] was obtained directly from the patient or human resources hr representative or caregiver or another available healthcare resource and updated in [facility] EMR. Social History Tobacco Use Smoking Status Former Current packs/day: 0.00 Average packs/day: 2.0 packs/day for 20.0 years (40.0 ttl pk-yrs) Types: Cigarettes Start date: 01/07/1985 Quit date: 01/07/2005 Years since quittin.6 Smokeless Tobacco Never Patient screened for tobacco use and identified as a Non-User of tobacco. REPORT AND NECESSARY FOLLOW-UP History and physical performed in [facility]; tests (ECG, blood work) reviewed. Abnormal Results Found: no Further Testing or Evaluation Required: no Final [facility] Center Review: May proceed with procedure/surgery: yes Stop bang score is 1 Based on a STOP-BANG score of 0-2 the patient is deemed low risk for [place]ILAN and there is no follow-up,education nor interventions needed. Evaluation and management of patient, which requires a medically appropriate history and/or examination:24123 - New (15-29 minutes total time) - [...] - 14.8 g/dL 08/12/2023 10:56 AM CDT [facility] HEMATOCRIT 37.2 35.5 - 44.0 % 08/12/2023 10:56 AM CDT [facility] Blood Venipuncture / Unknown 08/12/2023 9:29 AM CDT 08/12/2023 10:41 AM CDT Aline Shaw NEW GRAD RN HEMATOLOGY ORDERABLE S [facility] CLIA# [id number] [address] [place] [address] * (ABNORMAL) BASIC METABOLIC PANEL (08/12/2023 9:29 AM CDT) SODIUM 142 136 - 145 mmol/L 08/12/2023 11:40 AM [facility] [employer] [facility] POTASSIUM 4.2 3.5 - 5.0 mmol/L 08/12/2023 11:40 AM [facility] [employer] [facility]. [facility] 105 98 - 107 mmol/L 08/12/2023 11:40 AM [facility] CO2 26 22 - 29 mmol/L 08/12/2023 11:40 AM [facility] [employer] [facility] CALCIUM 9.6 8.6 - 10.2 mg/dL 08/12/2023 11:40 AM [facility] BUN 12 8 - 23 mg/dL 08/12/2023 11:40 AM [facility] CREATININE 1.07(H) 0.51 - 0.95 mg/dL 08/12/2023 11:40 AM [facility] GLUCOSE 84 74 - 99 mg/dL 08/12/2023 11:40 AM [facility] GFR 59(L) >=60 mL/min/1.7 3 sq meter 08/12/2023 11:40 AM [facility] [employer] [facility] Comment:eGFR calculated with 2020 CKD-EPI equation. Vegetarian diet, extremely high or low muscle mass, and may affect results. Cystatin C with Glomerular Filtration Rate is a suitable alternative for these patients. ANION GAP 11 8 - 16 mmol/L 08/12/2023 11:40 AM [facility] Blood Venipuncture / Unknown 08/12/2023 9:29 AM CDT 08/12/2023 10:41 AM CDT Aline Shaw NEW GRAD RN CHEMISTRY ORDERABLES Performing Organization Address City/[facility]/ZIP Co de Phone Number [facility] - [facility] CLIA# [id number] [address] [place] [address] * TYPE AND SCREEN (08/12/2023 9:29 AM CDT) ABO GROUP A 08/12/2023 11:54 AM CDT [facility] -- [facility] RH (D) TYPE Negative 08/12/2023 11:54 AM CDT [facility] ANTIBODY SCREEN Negative 08/12/2023 11:54 AM CDT [facility] Blood Venipuncture / Unknown 08/12/2023 9:29 AM CDT 08/12/2023 10:41 AM CDT Juan Manuel Farnsworth MD BLOOD BANK ORDERABLE S [facility] [employer] SERVICES -- [facility] CLIA# [id number] [address] [place] [address] documented in this encounter Visit Diagnoses Not on filedocumented in this encounter Care Teams Tailer Out Relationship Specialty Start Date End Date Almita Smallwood MD [address] [place] [address] PCP - General Internal Medicine 03/14/18 documented as of this encounter
--- OUTSIDE RECORDS SUMMARY | 2024-04-21 21:34 | XMS_ITS | Encounter Summary ---
Author Organization [facility] Address [address] [place] [address] Care Team Providers Care Grain Farmworker Name Role Phone Almita Smallwood MD Primary Care Provider + Encounter Details Date Type Department Care Team (Late st Contact Info) Description 11/11/2022 Abstract [facility] Internal Medicine - [facility] [address] [place] [address] Almita Smallwood MD [address] [place] [address] Social History Tobacco Use Types [...] filedocumented in this encounter Care Teams Grain Farmworker Relationship Specialty Start Date End Date Almita Smallwood MD [address] [place] [address] PCP - General Internal Medicine 03/14/18 documented as of this encounter
--- OUTSIDE RECORDS SUMMARY | 2024-04-21 21:34 | XMS_ITS | Patient Health Summary ---
Author Organization [facility] Address [address] [place] [address] Care Team Providers Care Supervisor Assembling Name Role Phone Almita Smallwood MD Primary Care Provider + Note from [facility],non-owned Affiliates and Associated Physician Practices is amultiple site organization consisting of ambulatory clinics and hospital sitesin [place], [place], [place] and [place]. This disclosure is being madepursuant to the Care Everywhere program and may not contain all information available regarding this patient. Last updated 18.[facility] Social History Tobacco Use Types Packs/Day [...] Case Report Surgical Pathology Report ? Case: [id number] ? Authorizing Provider: ??Jorge Luis Tompkins MD ?Collected: ? 11/07/2018 08:00 AM ? Pathologist: ? Lidna Ring MD ?? Received: ?11/09/2018 10:42 AM ? Specimen: ?Lymph Node Biopsy, [id number] ? 11/10/2018 4:54 PM [facility] PATHOLOGY LAB Final Diagnosis Lymph node, right axilla, excisional biopsy: - Benign lymph node. - No evidence of malignancy. - See description. 11/10/2018 4:54 PM [facility] PATHOLOGY LAB Microscopic Description and [...] is performed on block A2 in the [facility] Department of Pathology with appropriately reactive controls. [...] infiltrate in the node. The report from [facility] describing an atypical lymphoid proliferation on needle core biopsy most likely represents sampling of primary follicles rather than a lymphoproliferative disorder; however, those slides are not provided for review in conjunction with this case. Clinical correlation is advised. KR 11/10/2018 4:54 PM [facility] Clinical History 58 year old woman presents with right axillary lymphadenopathy. History of ductal carcinoma in situ. 11/10/2018 4:54 PM T [facility] Materials Received Received are 2 slides and 2 blocks labeled as [id number] along with the outside pathology report. [place] [id number]. All materials are returned to the referring institution, along with a copy of our final report. 11/10/2018 4:54 PM [facility] PATH[facility] LAB Disclaimer The performance characteristics of all immunohistochemical and indirect immunofluorescence stains (if any) cited in this report were determined by the Histopathology Laboratory of [facility]. Some of these tests were developed by [...] interpretation of this case [facility], [address] [place] [address]. 11/10/2018 4:54 PM T [facility] Embedded Images 11/10/2018 4:54 PM CDT [facility] Pathology/Cytolo gy BIOPSY OF LYMPH NODE / Unknown 11/07/2018 8:00 AM CDT 11/09/2018 10:42 AM CDT Jorge Luis Tompkins MD LAB - PATHOLOGY/CYTO LOGY ORDERABLES [facility] [address] [place] [address], [facility] [phone] * MRI BREAST BILAT WWO CONTRAST (10/16/2018 [...] was processed by and interpreted on a [employer] traffic observer including 3-D volume rendering, subtraction image [...] ORDERABLES * CREATININE BLOOD - POCT (IP) [facility] (10/16/2018 4:57 PM CDT) Only the most recent of2 resultswithin the time period is included. Creatinine POCT 0.8 0.3 - 1.3 mg/dL [facility] POCT TESTING eGFR POCT 60 60 ml/min [facility] POCT TESTING Blood BLOOD SPECIMEN / Unknown 10/16/2018 4:57 PM CDT Laverne Thorpe DO LAB - POINT OF CARE ORDERABLES Performing Organization Address City/State/[facility] Co de Phone Number [facility] POCT TESTING [address] [phone] * MAMMO LEFT DIAGNOSTIC (05/26/2017 2:54 PM FORKLIFT OPERATOR) Anatomical Region Laterality Modality Left Other Impressions 05/26/2017 3:13 PM FORKLIFT OPERATOR IMPRESSION: No evidence of malignancy in the left breast. ASSESSMENT: BI-RADS Category 2: Benign finding(s). RECOMMENDATION: Bilateral diagnostic mammogram in September 2017. Findings discussed with the patient by Dr. Cantu. I, Dr. KELLEN MANTILLA M.D. have personally reviewed and interpreted this examination/study. This report was electronically signed by KELLEN MANTILLA M.D. ??on 05/26/2017 3:13 PM . Narrative 05/26/2017 3:13 PM FORKLIFT OPERATOR LEFT DIAGNOSTIC MAMMOGRAM TECHNIQUE: Images were performed [...] . Historical Provider MAMMO ORDERABLES Care Teams Supervisor Assembling Relationship Specialty Start Date End Date Almita Smallwood MD [address] [place] [address] PCP - General Internal Medicine 10/16/18
--- OUTSIDE RECORDS SUMMARY | 2024-04-21 21:34 | XMS_ITS | Encounter Summary ---
Author Organization [facility] Address [address] [place] [address] Care Team Providers Care Airline Manager Name Role Phone Almita Smallwood MD [...] on filedocumented in this encounter Care Teams Airline Manager Relationship Specialty Start Date End Date Almita Smallwood MD [address] [place] [address] PCP - General Internal Medicine 03/14/18 documented as of this encounter
--- OUTSIDE RECORDS SUMMARY | 2024-04-21 21:34 | XMS_ITS | Encounter Summary ---
Author Organization [facility] Address [address] [facility] Attn: [place] [address] Care Team Providers Care Material Mover Name Role Phone Almita Smallwood MD Primary [...] Coronavirus/COVID-19? No / Unsure 04/14/2022 10:03 AM ARCHIVES TECHNICIAN documented as of this encounter Plan of Treatment Not on file documented as of this encounter Visit Diagnoses Not on filedocumented in this encounter Care Teams Material Mover Relationship Specialty Start Date End Date Almita Smallwood MD [address] [place] [address] PCP - General Internal Medicine 03/14/18 documented as of this encounter
--- OUTSIDE RECORDS SUMMARY | 2024-04-21 21:34 | XMS_ITS | Encounter Summary ---
Author Organization [facility] Address [address] [place] [address] Care Team Providers Care Clinical Quality Assurance Associate Name Role Phone Almita Smallwood MD [...] Date Expiration Date Visits Requested Visits Authorized [id number] Closed Performing Department to Schedule 03/25/2022 04/17/2023 57 60 Encounter Details Date Type Department Care Team (Late st Contact Info) Description 05/12/2022 10:51 AM LANGUAGE SPECIALIST - 05/12/2022 11:59 PM LANGUAGE SPECIALIST Hospital Encounter [facility] Services [address] [facility] [address] [place] [address] Zay Chen NP NO ADDRESS ON FILE [...] Coronavirus/COVID-19? No / Unsure 05/12/2022 10:48 AM LANGUAGE SPECIALIST documented as of this encounter Medications at [...] Visits: 2 visits used/60 visits approved by [facility] by 04-17-22 Authorization: n/a Summary List: [...] x 20 sec holds x 3 reps Portuguese ball LTR [address] Portuguese ball bridging 1 x10 Supine macanese ball hamstring curls with lower abdominal isometrics [...] and less LBP with squatting down to metal pickling equipment operator something medium or heavy off the floor. [...] Therapy, Core Stabilization DOMING[place] License #: [id number] [facility], [address], [address] [place], [place]. [id number] Fax UAGE SPECIALIST documented in this encounter Plan of Treatment Not on file documented as of this encounter Visit Diagnoses Not on filedocumented in this encounter Care Teams Clinical Quality Assurance Associate Relationship Specialty Start Date End Date Almita Smallwood MD [address] [place] [address] PCP - General Internal Medicine 03/14/18 documented as of this encounter
--- OUTSIDE RECORDS SUMMARY | 2024-04-21 21:34 | XMS_ITS | Encounter Summary ---
Author Organization [facility] Address [address] [place] [address] Care Team Providers Care Cab Station Attendant Name Role Phone Almita Smallwood MD Primary Care Provider + Reason for Visit * Auth/Cert (Routine) Specialty Diagnoses / Procedures Referred By Tati campos Referred To Contact Perioperative Diagnoses MAXILLARY HYPOPLASIA Procedures WA RCNSTJ MIDFACE LEFORT I 2 PIECES W/O BONE GRAFT WA RCNSTJ MNDBLR RAMI&/BDY SGTL SPLT W/INT RGD FI WA IMPRESSION & PREPARATION ORAL SURGICAL SPLINT LEFORT OSTEOTOMY Juan Manuel Farnsworth MD [address] [place] [address] [facility] Or [address] [place] [address] Referral ID Status Reason Start Date Expiration Date Visits Re quested Visits Authorized [id number] 1 1 Encounter Details Date Type Department Care Team (Latest Contact Info) Description 09/05/2023 11:12 AM CDT - 09/07/2023 1:06 PM CDT Hospital Encounter [facility] Trauma Neuro Step Down [facility] [address] [place] [address] Juan Manuel Farnsworth MD [address] [place] [address] Discharge Disposition: Home or Self Care [...] rinse before beginning salt water rinses. ?? [place] your teeth regularly. ?? Mechanical and manual [...] than applesauce must be placed in a wet roller prior to eating. ?? Blenderized diet for six weeks. ?? Avoid fat free foods for optimum nutrition and to avoid weight loss. ?? Anything (even pizza and meats) that can be liquified in a wet roller will help in the dietary intake. Additional dietary supplements may include Manteno Instant Breakfast, Ensure, etc. Antibiotics: If you [...] while medicated. For constipation, you can buy [id number] Colace/Docusate Sodium or a stool softener. Pain [...] contact us with questions or concerns at [phone] In the event of an emergency please contact emergency medical help. You may also contact the oral surgeon commercial pest control representative by calling the hospital dye machine operator at [phone] and requesting the oral surgeon commercial pest control representative. An on-call oral surgeon is available for emergent issues 24hrsa day 7 days a week. Care plan: Follow-up appointment with at [facility] in days. For scheduling issues, please call [phone]. documented in this encounter Medications at Time [...] 09/07/2023 sodium chloride (OCEAN) 0.65 % Aerosol, [employer] Administer 2 Sprays in each nostril every [...] there are no changes. Jaime Navas DMD yield analyst * Jaime Navas DMD - 08/29/2023 10:30 [...] 7:02 PM CDT Operative Report Lisa Hermosillo [id number] DOS: 09/05/23 Pre-operative Diagnosis: MAXILLARY HYPOPLASIA Mandibular [...] 1:200,000 epi infiltrated at surgical site for long chain beamer analgesia. Patient turned back over to anesthesia for emergence, extubation and transport to PACU with out complication. Sponge and needle counts correct. Findings: Good postop occlusion Specimens: None Implants: Implant Name Type Inv. Item Serial No. Seo Associate Lot No. LRB No. Used Action PLATE LOC FX CRV SHRT N-CMPRSN [id number] - SSTERILIZED AUG 30 2023 Plate PLATE LOC FX CRV SHRT N-CMPRSN [id number] STERILIZED AUG 30 2023 Interactive Fate LOAD 27 N/A 2 Implanted SCREW LVL 1 CMF 2.0X7MM CROSSDRIVE TLTS [id number] - SSTERILIZED AUG 30 2023 Screw SCREW LVL 1 CMF 2.0X7MM CROSSDRIVE TLTS [id number] STERILIZED AUG 30 2023 [employer] LOAD 27 N/A 8 Implanted SCREW SD MAXDR 2.0X7MM [id number] - SLOAD # 2 7 STERILIZED AUGUST 30, 2023 Screw SCREW SD MAXDR 2.0X7MM [id number] LOAD # 2 7 STERILIZED AUGUST 30, 2023 Interactive [employer]ate N/A 18 Implanted SCREW ER MXDRV 2.3X7MM [...] 30, 2023 Plate PLATE-L LP LT LNG .[id number] LOAD # 2 7 STERILIZED AUGUST 30, [...] to follow for discharge planning. JAKE Morel [id number] * Care Plan - Chitra Anderson RN - 09/05/2023 7:13 PM CDT Potential for pain related to surgical/procedural intervention Interventions: Assess level of pain/comfort utilizing verbal/nonverbal pain scales; assess culturalor pentecostalism indicators attached to pain; administer pain medications [...] 1:13 PM CDT MAXILLARY HYPOPLASIA Case Notes ANTHEM--[id number] documented in this encounter Results * POC LACTIC ACID (09/05/2023 2:39 PM CDT) LACTIC ACID POC 1.6 <=2.0 mmol/L 09/05/2023 2:39 PM CDT [facility] SERVICES - [facility] SPECIMEN SOURCE, GASES POC Arterial 09/05/2023 2:39 PM CDT [facility] COMMENT, GASES POC Responsible Clinical Caregiver notified 09/05/2023 2:39 PM CDT [facility] Blood 09/05/2023 2:39 PM CDT 09/05/2023 2:40 PM CDT Juan Manuel Farnsworth MD POINT OF CARE TESTIN G [facility] CLIA# [id number] [address] [place] [address] * (ABNORMAL) BLOOD GAS,(INCL. H+H, LYTES, GLUC) (09/05/2023 2:39 PM CDT) PH BLOOD POC 7.38 7.35 - 7.45 09/05/2023 2:39 PM CDT [facility] PCO2 POC 42 35 - 48 mm Hg 09/05/2023 2:39 PM [facility] [employer] LABORATORY SERVICES [facility] PO2 POC 390(H) 83 - 108 mm Hg 09/05/2023 2:39 PM [facility] [employer] LABORATORY SERVICES [facility] TCO2 (CALC) POC 26(H) 19 - 24 mmol/L 09/05/2023 2:39 PM [facility] [employer] LABORATORY SERVICES [facility] HCO3 (CALC) POC 25 22 - 26 mmol/L 09/05/2023 2:39 PM [facility] [employer] LABORATORY SERVICES [facility] O2 SATURATION POC 100(H) 94 - 98 % 09/05/2023 2:39 PM [facility] [employer] LABORATORY SERVICES [facility] BASE EXCESS POC 0 -2 - 3 mmol/L 09/05/2023 2:39 PM [facility] [employer] LABORATORY SERVICES [facility] HEMOGLOBIN POC 10.4(L) 11.8 - 14.8 g/dL 09/05/2023 2:39 PM [facility] [employer] LABORATORY SERVICES [facility] HEMATOCRIT POC 31(L) 35 - 44 % 09/05/2023 2:39 PM [facility] [employer] LABORATORY SERVICES [facility] Comment:Estimated Value GLUCOSE POC 94 74 - 99 mg/dL 09/05/2023 2:39 PM [facility] [employer] LABORATORY SERVICES [facility] SODIUM POC 139 135 - 145 mmol/L 09/05/2023 2:39 PM [facility] [employer] LABORATORY SERVICES [facility] POTASSIUM POC 3.8 3.5 - 4.9 mmol/L 09/05/2023 2:39 PM [facility] [employer] LABORATORY SERVICES [facility] CHLORIDE POC 112(H) 98 - 107 mmol/L 09/05/2023 2:39 PM [facility] [employer] LABORATORY SERVICES [facility] CALCIUM IONIZED POC 5.0 4.7 - 5.1 mg/dL 09/05/2023 2:39 PM [facility] [employer] LABORATORY SERVICES [facility] PH TEMP CORRECT 7.38 7.35 - 7.45 09/05/2023 2:39 PM [facility] [employer] LABORATORY SERVICES [facility] PCO2 TEMP CORRECT 42 35 - 48 mm Hg 09/05/2023 2:39 PM [facility] [employer] LABORATORY SERVICES [facility] PO2 TEMP CORRECT 390(H) 83 - 108 mm Hg 09/05/2023 2:39 PM CDT [facility] - [facility] SPECIMEN SOURCE, GASES POC Arterial 09/05/2023 2:39 PM CDT [facility] - [facility] PATIENT'S TEMPERATURE POC 37.0 degrees 09/05/2023 2:39 PM CDT [facility] - [facility] COMMENT, GASES POC Responsible Clinical Caregiver notified 09/05/2023 2:39 PM CDT [facility] - [facility] Blood, arterial 09/05/2023 2 :39 PM CDT 09/05/2023 2:40 PM CDT Juan Manuel Farnsworth MD ABG ORDERABLES [facility] LABORAT[facility] SERVICES [facility]# [id number] [address] [place] [address] * VERIFICATION BLOOD GROUP (09/05/2023 1:17 PM CDT) ABO GROUP A 09/05/2023 1:19 PM CDT [facility] -- [facility] RH (D) TYPE Negative 09/05/2023 1:19 PM CDT [facility] -- [facility] Blood Venipuncture / Unknown 09/05/2023 1:17 PM CDT 09/05/2023 1:17 PM CDT Lauren Borrero MD BLOOD BANK ORD ERABLES [facility] [employer] [facility]# [id number] [address] [place] [address] documented in this encounter Visit Diagnoses Diagnosis [...] (See admin instructions), Routine 10[facility] Provider: Amelia Uriarte LPN - Comment: Pt decided she didnt want it -returned to) 1055 (Given - Provider: Carol Washington RN) oxymetazoline (AFRIN) 0.05 % nasal spray 2 [employer] 2 [employer] [place], Both Nostrils, EVERY 12 HOURS PRN, Starting on Tue09/05/23 at 2226, Until Tue09/07/23 at 1511, Congestion, Routine sodium chloride (OCEAN) 0.65 % nasal soln 2 [employer] 2 [employer] [place], Both Nostrils, EVERY 2 HOURS PRN, Starting on Tue09/05/23 at 2226, Until 09/07/23 at 1511, Congestion, Routine documented in this encounter Care Teams Cab Station Attendant Relationship Specialty Start Date End Date Almita Smallwood MD [address] [place] [address] PCP - General Internal Medicine 03/14/18 documented as of this encounter
--- OUTSIDE RECORDS SUMMARY | 2024-04-21 21:35 | XMS_ITS | Encounter Summary ---
Author Organization [facility] Address [address] [place] [address] Care Team Providers Care Checkout Operator Name Role Phone Almita Smallwood MD Primary Care Provider + Reason for Visit * Reason Comments Immunization/Injection Encounter Details Date Type Department Care Team (Latest Contact Info) Description 01/07/2022 10:30 AM CDT Clinical Support [facility] Internal Medicine [address] [address] Need for shingles vaccine (Primary [...] documented as of this encounter Care Teams Checkout Operator Relationship Specialty Start Date End Date Almita Smallwood MD [address] [place] [address] PCP - General Internal Medicine 03/14/18 documented as of this encounter
--- OUTSIDE RECORDS SUMMARY | 2024-04-21 21:35 | XMS_ITS | Encounter Summary ---
Author Organization [facility] Address [address] [place] [address] Care Team Providers Care Internet And E Business Project Manager Name Role Phone Almita Smallwood MD Primary Care Provider + Reason for Visit * Reason Onset Date Comments MyChart Message 02/16/2022 Encounter Details Date Type Department Care Team (Late st Contact Info) Description 02/16/2022 Telephone [facility] Internal Medicine - [facility] [address] [place] [address] Almita Smallwood MD [address] [place] [address] MyChart Message Social History Tobacco [...] Hermosillo Sent: 02/15/2022 7:36 PM CDT To: [facility] Nurse Subject: leg pain Oh Gosh! Sorry [...] documented as of this encounter Care Teams Internet And E Business Project Manager Relationship Specialty Start Date End Date Amlita Smallwood MD [address] [place] [address] PCP - General Internal Medicine 03/14/18 documented as of this encounter
--- OUTSIDE RECORDS SUMMARY | 2024-04-21 21:35 | XMS_ITS | Encounter Summary ---
Author Organization [facility] [place] Address [address] [place] [address] Care Team Providers Care Velvet Steamer Name Role Phone Almita Smallwood MD Primary Care Provider + Encounter Details Date Type Department Care Team (Late st Contact Info) Description 06/30/2021 Abstract [facility] Internal Medicine [address] [address] Almita Smallwood MD [address] [place] [address] Social History Tobacco Use Types [...] documented as of this encounter Care Teams Velvet Steamer Relationship Specialty Start Date End Date Almita Smallwood MD [address] [place] [address] PCP - General Internal Medicine 03/14/18 documented as of this encounter
--- OUTSIDE RECORDS SUMMARY | 2024-04-21 21:35 | XMS_ITS | Encounter Summary ---
Author Organization [facility] Address [address] [place] [address] Care Team Providers Care Route Vending Machine Servicer Name Role Phone Almita Smallwood MD Primary Care Provider + Reason for Visit * Reason Comments Physical Encounter Details Date Type Department Care Team ([facility] Contact Info) Description 10/15/2021 2:00 PM CDT Office Visit [facility] Internal Medicine [address] [address] Almita Smallwood MD [address] [place] [address] Normal routine physical examination (Primary [...] cancer [place] - [place] Cervical cancer screening - UTD through Bilingual Speech Language Pathologist, done in 2019 Breast cancer screening - UTD UTD on pap through Bilingual Speech Language Pathologist, done 04/16/20 On B12 shots Colonoscopy done in [place] - Dr. Litzy Mcghee - in 2019 [...] Mcghee's office. Also need pap report from timber faller scanned in Discussed COVID vaccination in detail [...] BMI within normal limits [facility]mita [facility]wood [facility] documented in this encounter Miscellaneous Notes * [...] from the original note were not included. [facility] [phone] Therapeutic Ball: Back Exercises Introduction Here are [...] 2. Slowly rotate your hips in a ekwok pattern. Keep the movement focused at your hips. 3. Repeat, but ekwok in the other direction. 4. Repeat 8 [...] Where can you learn more? Go to https://www.Pricelinewise.net/patiented Enter I670 in the search box to learn more about Therapeutic Ball: Back Exercises. Current as of: June 24, 2021?Content Version: 13.3 ?? [place]. Care instructions adapted under license by your healthcare professional. If you have questions about a medical condition or this instruction, always ask your healthcare professional. These instructions may not represent the values of this healthcare organization. [employer] disclaims any warranty or liability for your [...] infront of you at the same time. Dzke-iu-vaaqg exercise 1. Lie on your back with [...] Where can you learn more? Go to https://www.Giveter.net/patiented Enter Z938 in the search box to learn more about Low Back Pain: Exercises. Current as of: June 24, 2021?Content Version: 13.3 ?? [place]. Care instructions adapted under license by your healthcare professional. If you have questions about a medical condition or this instruction, always ask your healthcare professional. These instructions may not represent the values of this healthcare organization. [place] disclaims any warranty or liability for your [...] B12 742 200 - 1100 pg/mL [facility] Comment: Test Performed at: [facility] [address] [place], [place] ??[address] Luis Enrique Anderson D.O., MPH Blood 10/15/2021 3:15 PM CDT 10/16/2021 8:24 AM CDT Almita Smallwood MD CHEMISTRY ORDERA [facility] [phone] [facility] [address] [place] [address] * (ABNORMAL) LIPID PANEL (10/15/2021 3:15 PM [...] LDL-C. Maxim ANTHONY et al. LOIS. 2013;310(19): 7758-7110 (http://education.Dealo/faq/NLO605) CHOL/HDL RATIO 4.2 <5.0 (calc) [facility] TOTAL NON-HDL CHOL(LDL+VLDL) 125 <130 mg/dL (calc) [facility] Comment: For patients with diabetes plus 1 major ASCVD risk factor, treating to a non-HDL-C goal of <100 mg/dL (LDL-C of <70 mg/dL) is considered a therapeutic option. Test Performed at: [facility] [address] [place], [place] ??[address] Luis Enrique Anderson D.O., MPH Blood 10/15/2021 3:15 PM CDT 10/16/2021 8:25 AM CDT Almita Smallwood MD CHEMISTRY ORDERA BLES [facility] [phone] [facility] [address] [place] [address] * (ABNORMAL) CBC WITH DIFFERENTIAL (10/15/2021 3:15 [...] [facility] Comment: Test Performed at: [facility] [address] [place], [place] ??[address] Luis Enrique Anderson D.O., MPH Blood 10/15/2021 3:15 PM CDT 10/16/2021 8:25 AM CDT Almita Smallwood MD HEMATOLOGY ORDER MANUEL [facility] [phone] [facility] [address] * (ABNORMAL) COMPREHENSIVE METABOLIC PANEL (10/15/2021 3:15 PM CDT) GLUCOSE 86 65 - 99 mg/dL [facility] Comment: ? Fasting reference interval BUN 10 7 - 25 mg/dL [facility] CREATININE 1.07(H) 0.50 - 1.05 mg/dL [facility] Comment: For patients >49 years of age, the reference limit for Creatinine is approximately 13% higher for people identified as -Malian. GFR 57(L) > OR = 60 mL/min/1. [...] [facility] Comment: Test Performed at: [facility] ??[address] Luis Enrique Anderson D.O., MPH Blood 10/15/2021 3:15 PM CDT 10/16/2021 8:25 AM CDT Almita Smallwood MD CHEMISTRY ORDERA BLES [facility] [phone] [facility] [address] [place] [address] documented in this encounter Visit Diagnoses Diagnosis [...] documented as of this encounter Care Teams Route Vending Machine Servicer Relationship Specialty Start Date End Date Almita Smallwood MD [address] [place] [address] PCP - General Internal Medicine 03/14/18 documented as of this encounter
--- OUTSIDE RECORDS SUMMARY | 2024-04-21 21:35 | XMS_ITS | Encounter Summary ---
Author Organization [facility] Address [address] [place] [address] Care Team Providers Care Spiritual Counselor Name Role Phone Almita Smallwood MD Primary Care Provider + Reason for Referral * Eval and Treat (Routine) - Closed Specialty Diagnoses / Procedures Referred By Tati campos Referred To Contact Perioperative Diagnoses Screening for colon cancer Procedures COLON Gilmer Nogueira MD NO ADDRESS ON FILE [facility] [address] [place] [address] Referral ID Status Reason Start Date Expiration Date Visits Requested Visits Authorized [id number] Closed Performing Department to Schedule 01/11/2022 01/11/2023 3 3 Reason for Visit * Reason Onset Date Comments Referral 01/11/2022 Encounter Details Date Type Department Care Team (Late st Contact Info) Description 01/11/2022 Telephone [facility] Internal Medicine - [facility] [address] [place] [address] Almita Smallwood MD [address] [place] [address] Referral Social History Tobacco Use [...] and faxed to Dr Nogueira's office at [phone].Pt aware. * Telephone Encounter - Poonam Emerson - 01/15/2022 9:53 AM CDT Name of PCP Provider or Prescribing Provider: Almita Smlalwood MD Next office visit: 01/12/2022 Caller: Lisa Hermosillo Message: Patient called in stated referral was sent as a screening exam stated she need referral resent as diagnostic colonoscopy to Dr Nogueira and [facility] Dr Gilmer Nogueira PH [phone] FAX [phone] Call back Number: [phone] (home) Faxed last OV note and GI ref to DR Nogueira on [phone]. * Telephone Encounter - Lauren Jett - [...] bleeding and list of medications Dr Gilmer Nougeira [phone] FAX [phone] Mena would like to get a call when it has been sent to there office Call-back Number: [phone] * Telephone Encounter - Noemi Espinoza - 01/11/2022 2:05 PM CDT GI referral placed. * Telephone Encounter - Noemi Espinoza - 01/11/2022 2:03 PM CDT ----- Message from Lisa Hermosillo sent at 01/11/2022 1:25 PM CDT ----- Regarding: Referral Contact: Tn Doctor Cl! I reached out to Dr. Gilmer Nogueira at [facility] and they said I needed a referral from you. They are at [phone]. If you could contact them, it would [...] documented as of this encounter Care Teams Spiritual Counselor Relationship Specialty Start Date End Date Almita Smallwood MD [address] [place] [address] PCP - General Internal Medicine 03/14/18 documented as of this encounter
--- OUTSIDE RECORDS SUMMARY | 2024-04-21 21:35 | XMS_ITS | Encounter Summary ---
Author Organization [facility] Address [address] [place] [address] Care Team Providers Care Concrete Pipe Making Machine Operator Name Role Phone Almita Smallwood MD Primary Care Provider + Encounter Details Date Type Department Care Team (Late st Contact Info) Description 08/28/2021 Abstract [facility] Internal Medicine [address] [address] Almita Smallwood MD [address] [place] [address] Social History Tobacco Use Types [...] documented as of this encounter Care Teams Concrete Pipe Making Machine Operator Relationship Specialty Start Date End Date Almita Smallwood MD [address] [place] [address] PCP - General Internal Medicine 03/14/18 documented as of this encounter
--- OUTSIDE RECORDS SUMMARY | 2024-04-21 21:35 | XMS_ITS | Encounter Summary ---
Author Organization [facility] Address [address] [place] [address] Care Team Providers Care Any Commodity Sales Deliverer Name Role Phone Almita Smallwood MD Primary [...] Date Expiration Date Visits Requested Visits Authorized [id number] Closed Performing Department to Schedule 03/25/2022 04/17/2023 57 60 Encounter Details Date Type Department Care Team (Late st Contact Info) Description 03/25/2022 4:00 PM RETURN TO VENDOR - 03/25/2022 11:59 PM RETURN TO VENDOR Hospital Encounter [facility] [address] [facility] [address] [place] [address] Zay Chen NP NO ADDRESS ON FILE [...] Coronavirus/COVID-19? No / Unsure 03/25/2022 4:06 PM RETURN TO VENDOR documented as of this encounter Medications at [...] visits used/60 (3 used) visits approved by [facility] by 04-17-22 Authorization: n/a Time In: 4:04 [...] to Communication (language, hearing, vision, reading): no Adventist, Traditional or Cultural Practices Which May Impact [...] and less LBP with squatting down to tack picker something medium or heavy off the [...] Thank you for this referral. Nghia Will [facility] License #: [id number] [facility] [address], [address] [place]. [address] Fax RN TO VENDOR documented in this encounter Plan of Treatment Scheduled Referrals Name Type Priority Associated Diagnoses Orde r Schedule AMB REFERRAL TO PHYSICAL THERAPY Outpatient Referral Routine Acute right-sided low back pain with right-sided sciatica Ordered: 03/04/2022 documented as of this encounter Visit Diagnoses Not on filedocumented in this encounter Care Teams Any Commodity Sales Deliverer Relationship Specialty Start Date End Date Almita Smallwood MD [address] [place] [address] PCP - General Internal Medicine 03/14/18 documented as of this encounter
--- OUTSIDE RECORDS SUMMARY | 2024-04-21 21:35 | XMS_ITS | Encounter Summary ---
Author Organization [facility] Address [address] [place] [address] Care Team Providers Care Propeller Tester Name Role Phone Almtia Smallwood MD Primary Care Provider + Encounter Details Date Type Department Care Team (Late st Contact Info) Description 02/15/2022 Abstract [facility] Internal Medicine - [address] [address] Almita Smallwood MD [address] [place] [address] Social History Tobacco Use Types [...] documented as of this encounter Care Teams Propeller Tester Relationship Specialty Start Date End Date Almita Smallwood MD [address] [place] [address] PCP - General Internal Medicine 03/14/18 documented as of this encounter
--- OUTSIDE RECORDS SUMMARY | 2024-04-21 21:35 | XMS_ITS | Encounter Summary ---
Author Organization [facility] Address [address] [facility] Attn: Epic Prelude ADT [facility] [place] [address] Care Team Providers Care Pneumatic Systems Operator Name Role Phone Almita Smallwood MD [...] Coronavirus/COVID-19? No / Unsure 03/04/2022 1:11 PM FRENCH EDGE OPERATOR documented as of this encounter Plan of Treatment Not on file documented as of this encounter Visit Diagnoses Not on filedocumented in this encounter Care Teams Pneumatic Systems Operator Relationship Specialty Start Date End Date Almita Smallwood MD [address] [place] [address] PCP - General Internal Medicine 03/14/18 documented as of this encounter
--- OUTSIDE RECORDS SUMMARY | 2024-04-21 21:35 | XMS_ITS | Encounter Summary ---
Author Organization [facility] Address [address] [place] [address] Care Team Providers Care Science Manager Name Role Phone Almita Smallwood MD Primary Care Provider + Reason for Visit * Reason Comments Immunization/Injection Encounter Details Date Type Department Care Team (Latest Contact Info) Description 10/23/2021 1:00 PM CDT Clinical Support [facility] Internal Medicine [address] [address] Need for pneumococcal vaccination (Primary [...] documented as of this encounter Care Teams Science Manager Relationship Specialty Start Date End Date Almita Smallwood MD [address] [place] [address] PCP - General Internal Medicine 03/14/18 documented as of this encounter
--- OUTSIDE RECORDS SUMMARY | 2024-04-21 21:35 | XMS_ITS | Encounter Summary ---
Author Organization [email or web address] Address [address] [place] [address] Care Team Providers Care Monument Setter Name Role Phone Almita Smallwood MD Primary Care Provider + Encounter Details Date Type Department Care Team (Late st Contact Info) Description 11/10/2021 Chart Note [facility] [place] [address] [place] [address] Nghia Will, Physical Therapist Social [...] Thank you for this referral. [place] License #: [id number] [address], [address] [address] Fax documented in this encounter Plan of Treatment Not on file documented as of this encounter Visit Diagnoses Not on filedocumented in this encounter Additional Health Concerns Assessment Noted Time PHQ-9 Depression Total Score: 1 10/16/19 22 2:00 PM CDT documented as of this encounter Care Teams Monument Setter Relationship Specialty Start Date End Date Almita Smallwood MD [address] [place] [address] PCP - General Internal Medicine 03/14/18 documented as of this encounter
--- OUTSIDE RECORDS SUMMARY | 2024-04-21 21:35 | XMS_ITS | Encounter Summary ---
Author Organization [facility] Address [address] [facility] Attn: [place] [address] Care Team Providers Care Sap Bw Architect Name Role Phone Almita Smallwood MD [...] documented as of this encounter Care Teams Sap Bw Architect Relationship Specialty Start Date End Date Almita Smallwood MD [address] [place] [address] PCP - General Internal Medicine 03/14/18 documented as of this encounter
--- OUTSIDE RECORDS SUMMARY | 2024-04-21 21:35 | XMS_ITS | Encounter Summary ---
Author Organization [facility] Address [address] [facility] Attn: [place] [address] Care Team Providers Care Fiberglass Tube Molder Name Role Phone Almita Smallwood MD Primary [...] documented as of this encounter Care Teams Fiberglass Tube Molder Relationship Specialty Start Date End Date Almita Smallwood MD [address] [place] [address] PCP - General Internal Medicine 03/14/18 documented as of this encounter
--- OUTSIDE RECORDS SUMMARY | 2024-04-21 21:35 | XMS_ITS | Encounter Summary ---
Author Organization [facility] Address [address] [facility] Attn: [place] [address] Care Team Providers Care Developmental Education Instructor Name Role Phone Almita Smallwood MD [...] Coronavirus/COVID-19? No / Unsure 03/26/2022 9:00 AM BASKET FILLER documented as of this encounter Plan of Treatment Not on file documented as of this encounter Visit Diagnoses Not on filedocumented in this encounter Care Teams Developmental Education Instructor Relationship Specialty Start Date End Date Almita Smallwood MD [address] [place] [address] PCP - General Internal Medicine 03/14/18 documented as of this encounter
--- OUTSIDE RECORDS SUMMARY | 2024-04-21 21:35 | XMS_ITS | Encounter Summary ---
Author Organization [facility] Address [address] [facility] Attn: Epic Prelude ADT [facility] [address] Care Team Providers Care Order Editor Name Role Phone Almita Smallwood MD Primary [...] documented as of this encounter Care Teams Order Editor Relationship Specialty Start Date End Date Almita Smallwood MD [address] [place] [address] PCP - General Internal Medicine 03/14/18 documented as of this encounter
--- OUTSIDE RECORDS SUMMARY | 2024-04-21 21:35 | XMS_ITS | Encounter Summary ---
Author Organization [facility] Address [address] [place] [address] Care Team Providers Care Ice Cream Maker Name Role Phone Almita Smallwood MD Primary Care Provider + Encounter Details Date Type Department Care Team (Latest Contact Info) Description 03/04/2022 2:41 PM MAMMA LOGIST - 03/04/2022 11:59 PM MAMMA LOGIST Hospital Encounter [facility] [address] [facility] [place] [address] Zay Chen NP NO ADDRESS ON FILE [...] Coronavirus/COVID-19? No / Unsure 03/04/2022 1:11 PM MAMMA LOGIST documented as of this encounter Medications at [...] OR 3 VW Routine 03/04/2022 2:53 PM MAMMA LOGIST Acute right-sided low back pain with right-sided sciatica documented in this encounter Results * XR LUMBAR SPINE 2 OR 3 VW (03/04/2022 2:53 PM MAMMA LOGIST) Anatomical Region Laterality Modality Spine Computed Radiogr aphy 03/04/2022 3:01 PM MAMMA LOGIST Impressions 03/04/2022 3:16 PM MAMMA LOGIST IMPRESSION: 1. No significant osseous abnormality. DICTATION LOCATION: Location [address] [place] [address] 03/04/2022 3:16 PM MAMMA LOGIST XR LUMBAR SPINE 2 OR 3 VW [...] No significant osseous abnormality. DICTATION LOCATION: Location [address] [place] [address] Zay Chen NP DIAGNOSTIC ANSELMO Mejía ORDERABLES documented in this encounter Visit Diagnoses Diagnosis Acute right-sided low back pain with right-sided sciatica documented in this encounter Care Teams Ice Cream Maker Relationship Specialty Start Date End Date Almita Smallwood MD [address] [place] [address] PCP - General Internal Medicine 03/14/18 documented as of this encounter
--- OUTSIDE RECORDS SUMMARY | 2024-04-21 21:35 | XMS_ITS | Encounter Summary ---
Author Organization [facility] Address [address] [facility] Attn: Epic Prelude ADT [facility] [place] [address] Care Team Providers Care Wood Flooring Specialist Name Role Phone Almita Smallwood MD [...] Coronavirus/COVID-19? No / Unsure 03/25/2022 4:06 PM EMT/DISPATCHER documented as of this encounter Plan of Treatment Not on file documented as of this encounter Visit Diagnoses Not on filedocumented in this encounter Care Teams Wood Flooring Specialist Relationship Specialty Start Date End Date Almita Smallwood MD [address] [place] [address] PCP - General Internal Medicine 03/14/18 documented as of this encounter
--- OUTSIDE RECORDS SUMMARY | 2024-04-21 21:35 | XMS_ITS | Encounter Summary ---
Author Organization [facility] Address [address] [place] [address] Care Team Providers Care Hotel Maintenance Engineer Name Role Phone Almita Smallwood MD Primary Care Provider + Reason for Referral * Eval and Treat (Routine) - Closed Specialty Diagnoses / Procedures Referred By Tati campos Referred To Contact Dermatology Diagnoses Skin disorder Almita Smallwood MD [address] [place] [address] Referral ID Status Reason Start Date Expiration Date Visits Re quested Visits Authorized [id number] Closed 01/12/2022 01/12/2023 1 1 Reason for Visit * Reason Onset Date Comments Referral 01/12/2022 Encounter Details Date Type Department Care Team (Late st Contact Info) Description 01/12/2022 Telephone [facility] Internal Medicine - [facility] [address] [place] [address] Almita Smallwood MD [address] [place] [address] Referral Social History Tobacco Use [...] documented as of this encounter Care Teams Hotel Maintenance Engineer Relationship Specialty Start Date End Date Almita Smallwood MD [address] [place] [address] PCP - General Internal Medicine 03/14/18 documented as of this encounter
--- OUTSIDE RECORDS SUMMARY | 2024-04-21 21:35 | XMS_ITS | Encounter Summary ---
Author Organization [facility] Address [address] [place] [address] Care Team Providers Care Train Electronic Technician Name Role Phone Almita Smallwood MD Primary Care Provider + Encounter Details Date Type Department Care Team (Late st Contact Info) Description 01/15/2022 Abstract [facility] Internal Medicine [address] [address] Almita Smallwood MD [address] [place] [address] Social History Tobacco Use Types [...] documented as of this encounter Care Teams Train Electronic Technician Relationship Specialty Start Date End Date Almita Smallwood MD [address] [place] [address] PCP - General Internal Medicine 03/14/18 documented as of this encounter
--- OUTSIDE RECORDS SUMMARY | 2024-04-21 21:35 | XMS_ITS | Encounter Summary ---
Author Organization [facility] Address [address] [facility] Attn: Epic Prelude ADT [place] [address] Care Team Providers Care Sales And Leasing Consultant Name Role Phone Almita Smallwood MD [...] documented as of this encounter Care Teams Sales And Leasing Consultant Relationship Specialty Start Date End Date Almita Smallwood MD [address] [place] [address] PCP - General Internal Medicine 03/14/18 documented as of this encounter
--- OUTSIDE RECORDS SUMMARY | 2024-04-21 21:35 | XMS_ITS | Encounter Summary ---
Author Organization [facility] Address [address] [facility] Attn: Epic Prelude ADT [place] [address] Care Team Providers Care Trouble Operator Name Role Phone Almita Smallwood MD [...] Coronavirus/COVID-19? No / Unsure 04/02/2022 9:29 AM OUTDOOR FITNESS TRAINER documented as of this encounter Plan of Treatment Not on file documented as of this encounter Visit Diagnoses Not on filedocumented in this encounter Care Teams Trouble Operator Relationship Specialty Start Date End Date Almita Smallwood MD [address] [place] [address] PCP - General Internal Medicine 03/14/18 documented as of this encounter
--- OUTSIDE RECORDS SUMMARY | 2024-04-21 21:35 | XMS_ITS | Encounter Summary ---
Author Organization [facility] Address [address] [place] [address] Care Team Providers Care Breaker Mechanic Name Role Phone Almita Smallwood MD Primary Care Provider + Encounter Details Date Type Department Care Team (Late st Contact Info) Description 07/09/2021 Orders Only [facility] [address] [place] [address] Yanna Moon Social History Tobacco [...] documented as of this encounter Care Teams Breaker Mechanic Relationship Specialty Start Date End Date Almita Smallwood MD [address] [place] [address] PCP - General Internal Medicine 03/14/18 documented as of this encounter
--- OUTSIDE RECORDS SUMMARY | 2024-04-21 21:35 | XMS_ITS | Encounter Summary ---
Author Organization [facility] Address [address] [place] [address] Care Team Providers Care Refinery Operator Helper Cracking Unit Name Role Phone Almita Smallwood MD Primary Care Provider + Reason for Visit * Reason Onset Date Comments Results 03/29/2022 Encounter Details Date Type Department Care Team ([facility] Contact Info) Description 03/29/2022 Telephone [facility] Internal Medicine - [id number] [place] [address] Almita Smallwood MD [address] [place] [address] Results Social History Tobacco Use [...] Coronavirus/COVID-19? No / Unsure 04/02/2022 9:29 AM RUNSTITCHING MACHINE OPERATOR documented as of this encounter Miscellaneous Notes * Telephone Encounter - Aarti De La Fuente - 03/29/2022 3:49 PM CST LMOM X1 for patient to call office back or review result and result note on [facility]. TITCHING MACHINE OPERATOR * Telephone Encounter - Aarti De La Fuente - 03/29/2022 3:37 PM CST ----- Message from Jennifer Kerr APRN sent at 03/29/2022 12:27 PM RUNSTITCHING MACHINE OPERATOR ----- MRI of lumbar spine showing mild degenerative disease (arthritis) and mild narrowing of the foraminal space. She was referred to PT, which can really help improve this type of pain. I strong recommend she set up an appointment with them. Please find out her pain is at this time. TITCHING MACHINE OPERATOR documented in this encounter Plan of Treatment Not on file documented as of this encounter Visit Diagnoses Not on filedocumented in this encounter Care Teams Refinery Operator Helper Cracking Unit Relationship Specialty Start Date End Date Almita Smallwood MD [address] [place] [address] PCP - General Internal Medicine 03/14/18 documented as of this encounter
--- OUTSIDE RECORDS SUMMARY | 2024-04-21 21:35 | XMS_ITS | Encounter Summary ---
Author Organization [facility] Address [address] [facility] Attn: Epic Prelude ADT [facility] [place] [address] Care Team Providers Care Horse Trader Name Role Phone Almita Smallwood MD Primary [...] documented as of this encounter Care Teams Horse Trader Relationship Specialty Start Date End Date Almita Smallwood MD [address] [place] [address] PCP - General Internal Medicine 03/14/18 documented as of this encounter
--- OUTSIDE RECORDS SUMMARY | 2024-04-21 21:35 | XMS_ITS | Encounter Summary ---
Author Organization [facility] Address [address] [place] [address] Care Team Providers Care Intake Specialist Name Role Phone Almita Smallwood MD Primary Care Provider + Reason for Visit * Reason Onset Date Comments Abx Request 12/23/2020 Encounter Details Date Type Department Care Team (Late st Contact Info) Description 12/23/2020 Telephone [facility] EAR, NOSE AND THROAT [facility] [address] [facility] [address] [place] [address] Jorge Luis Black MD [address] [facility]. [address] [place] [address] Abx Request Social History Tobacco [...] documented as of this encounter Care Teams Intake Specialist Relationship Specialty Start Date End Date Almita Smallwood MD [address] [place] [address] PCP - General Internal Medicine 03/14/18 documented as of this encounter
--- OUTSIDE RECORDS SUMMARY | 2024-04-21 21:35 | XMS_ITS | Encounter Summary ---
Author Organization [facility] Address [address] [facility] Attn: [place] [address] Care Team Providers Care Manager Floor Name Role Phone Almita Smallwood MD Primary [...] documented as of this encounter Care Teams Manager Floor Relationship Specialty Start Date End Date Almita Smlalwood MD [address] [place] [address] PCP - General Internal Medicine 03/14/18 documented as of this encounter
--- OUTSIDE RECORDS SUMMARY | 2024-04-21 21:35 | XMS_ITS | Encounter Summary ---
Author Organization [facility] Address [address] [place] [address] Care Team Providers Care Retail District Manager Name Role Phone Almita Smallwood MD Primary Care Provider + Reason for Visit * Eval and Treat (Routine) - Closed Specialty Diagnoses / Procedures Referred By Tati t Referred To Contact Physical Therapy Diagnoses Sciatica of left side Procedures PT EVAL AND TREAT Almita Smallwood MD [address] [place] [address] [facility] [address] [address] Referral ID Status Reason Start Date Expiration Date Visits Re quested Visits Authorized [id number] Closed 07/09/2021 04/17/2022 60 60 Encounter Details Date Type Department Care Team (Late st Contact Info) Description 07/30/2021 10:00 AM CDT - 07/30/2021 11:59 PM T Hospital Encounter [facility] Therapy Services [place] [address] [address] Almita Smallwood MD [address] [place] [address] Sciatica of left side Discharge [...] Visits: 1 visits used/60 visits approved by [facility] by 04/17/21 Authorization: NA Time In: 10:07am [...] to Communication (language, hearing, vision, reading): no Mu-Ism, Traditional or Cultural Practices Which May Impact Care: no 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 Dimple Camacho PT, [email or web address] [email or web address] License No. [id number] [address] [place] [address] documented in this encounter Plan of Treatment Not on file documented as of this encounter Visit Diagnoses Not on filedocumented in this encounter Additional Health Concerns Assessment Noted Time PHQ-9 Depression Total Score: 2 02/15/20 20 3:00 PM CDT documented as of this encounter Care Teams Retail District Manager Relationship Specialty Start Date End Date Almita Smallwood MD [address] [place] [address] PCP - General Internal Medicine 03/14/18 documented as of this encounter
--- OUTSIDE RECORDS SUMMARY | 2024-04-21 21:35 | XMS_ITS | Encounter Summary ---
Author Organization [facility] Address [address] [facility] Attn: Epic Prelude [facility]T [facility] [place] [address] Care Team Providers Care Court Operations Clerk Name Role Phone Almita Smallwood MD [...] documented as of this encounter Care Teams Court Operations Clerk Relationship Specialty Start Date End Date Almita Smallwood MD [address] [place] [address] PCP - General Internal Medicine 03/14/18 documented as of this encounter
--- OUTSIDE RECORDS SUMMARY | 2024-04-21 21:35 | XMS_ITS | Encounter Summary ---
Author Organization [facility] Address [address] [place] [address] Care Team Providers Care Search Engine Optimization Analyst Name Role Phone Almita Smallwood MD Primary Care Provider + Reason for Visit * Reason Onset Date Comments Results 02/01/2022 Encounter Details Date Type Department Care Team ([facility] Contact Info) Description 02/01/2022 Telephone [facility] Internal Medicine - [address] [address] Jennifer Kerr APRN NO ADDRESS [...] test results are available, informed that detailed Card Capture Services message was being sent. If pt returns [...] documented as of this encounter Care Teams Search Engine Optimization Analyst Relationship Specialty Start Date End Date Almita Smallwood MD [address] [place] [address] PCP - General Internal Medicine 03/14/18 documented as of this encounter
--- OUTSIDE RECORDS SUMMARY | 2024-04-21 21:35 | XMS_ITS | Encounter Summary ---
Author Organization [facility] Address [address] [place] [address] Care Team Providers Care Fmd Teacher Name Role Phone Almita Smallwood MD [...] Date Expiration Date Visits Requested Visits Authorized [id number] Closed Performing Department to Schedule 03/25/2022 04/17/2023 57 60 TABLE OPERATOR Reason for Visit * Reason Comments Back Pain Encounter Details Date Type Department Care Team (Late st Contact Info) Description 03/04/2022 1:30 PM BURN TABLE OPERATOR Office Visit [facility] Internal Medicine - [address] [address] Zay Chen NP NO ADDRESS [...] Coronavirus/COVID-19? No / Unsure 03/04/2022 1:11 PM BURN TABLE OPERATOR documented as of this encounter Last Filed Vital Signs Vital Sign Reading Time Taken Comments Blood Pressure 132/74 03/04/2022 1:27 PM BURN TABLE OPERATOR Pulse 71 03/04/2022 1:27 PM BURN TABLE OPERATOR Temperature 36.7 ??C (98 ??F) 03/04/2022 1:27 PM BURN TABLE OPERATOR Respiratory Rate 18 03/04/2022 1:27 PM BURN TABLE OPERATOR Oxygen Saturation 98% 03/04/2022 1:27 PM BURN TABLE OPERATOR Inhaled Oxygen Concentration - - Weight 68.5 kg (151 lb 1.9 oz) 03/04/2022 1:27 P M BURN TABLE OPERATOR Height 167.6 cm (5' 6 ) 03/04/2022 1:27 PM BURN TABLE OPERATOR Body Mass Index 24.39 03/04/2022 1:27 PM BURN TABLE OPERATOR documented in this encounter Progress Notes * [...] BMI within normal limits Zay Chen NP [facility] Primary Care [facility] TABLE OPERATOR documented in this encounter Miscellaneous Notes * Patient Instructions - Zay Chen NP - 03/04/2022 2:07 PM BURN TABLE OPERATOR Images from the original note were not [...] front of you at the same time. Wayd-yh-oomab exercise Lie on your back with your [...] Where can you learn more? Go to https://[email or web address].com.net/patiented Enter Z938 in the search box to learn more about Low Back Pain: Exercises. Current as of: October 11, 2018 Content Version: 12.3 ?? [id number] [employer]. Care instructions adapted under license by your healthcare professional. If you have questions about a medical condition or this instruction, always ask your healthcare professional. These instructions may not represent the values of this healthcare organization. [employer] disclaims any warranty or liability for your use of this information. TABLE OPERATOR documented in this encounter Plan of Treatment Scheduled Referrals Name Type Priority Associated Diagnoses Orde r Schedule AMB REFERRAL TO PHYSICAL THERAPY Outpatient Referral Routine Acute right-sided low back pain with right-sided sciatica Ordered: 03/04/2022 documented as of this encounter Results * XR LUMBAR SPINE 2 OR 3 VW (03/04/2022 2:53 PM BURN TABLE OPERATOR) Anatomical Region Laterality Modality Spine Computed Radiogr aphy 03/04/2022 3:01 PM BURN TABLE OPERATOR Impressions 03/04/2022 3:16 PM BURN TABLE OPERATOR IMPRESSION: 1. No significant osseous abnormality. DICTATION LOCATION: Location [address] [place] [address] 03/04/2022 3:16 PM BURN TABLE OPERATOR XR LUMBAR SPINE 2 OR 3 VW [...] significant osseous abnormality. DICTATION LOCATION: Location [address] [place] [address] Zay Duncan Sekhon [facility] Mejía ORDERABLES documented in this encounter Visit Diagnoses Diagnosis Acute right-sided low back pain with right-sided sciatica- Primary Acute right-sided low back pain with right-sided sciatica documented in this encounter Care Teams Fmd Teacher Relationship Specialty Start Date End Date Almita Smallwood MD [address] [place] [address] PCP - General Internal Medicine 03/14/18 documented as of this encounter
--- OUTSIDE RECORDS SUMMARY | 2024-04-21 21:35 | XMS_ITS | Encounter Summary ---
Author Organization [facility] Address [address] [place] [address] Care Team Providers Care Transmission Design Engineer Name Role Phone Almita Smallwood MD Primary Care Provider + Reason for Visit * Reason Onset Date Comments Needs Appointment 01/07/2022 Encounter Details Date Type Department Care Team (Late st Contact Info) Description 01/07/2022 Telephone [facility] Internal Medicine - [id number] [place] [address] Almita Smallwood MD [address] [place] [address] Needs Appointment Social History Tobacco [...] documented as of this encounter Care Teams Transmission Design Engineer Relationship Specialty Start Date End Date Almita Smallwood MD [address] [place] [address] PCP - General Internal Medicine 03/14/18 documented as of this encounter
--- OUTSIDE RECORDS SUMMARY | 2024-04-21 21:35 | XMS_ITS | Encounter Summary ---
Author Organization [facility] Address [address] [place] [address] Care Team Providers Care Field Checker Name Role Phone Almita Smallwood MD [...] Date Expiration Date Visits Requested Visits Authorized [id number] Closed Performing Department to Schedule 03/25/2022 04/17/2023 57 60 Encounter Details Date Type Department Care Team (Late st Contact Info) Description 04/02/2022 9:30 AM BOTANY LABORATORY ASSISTANT - 04/02/2022 11:59 PM BOTANY LABORATORY ASSISTANT Hospital Encounter [facility] Services [address] [facility] [address] [place] [address] Zay Chen NP NO ADDRESS ON FILE [...] Coronavirus/COVID-19? No / Unsure 04/02/2022 9:29 AM BOTANY LABORATORY ASSISTANT documented as of this encounter Medications [...] mcg by mouth daily. COLLAGEN MISC by [facility].(Non-Drug; Combo Route) route. TURMERIC ORAL Take by [...] visits used/60 (3 used) visits approved by [facility] by 04-17-22 Authorization: n/a Summary List: Unchanged Time In: 9:32 a.m. Time Out: 10:00 a.m. Total Timed Treatment: 27 minutes Total Treatment Time: 27 minutes SUBJECTIVE Pain Level Pre-Treatment: 0/10 She notes it may be a little better. She states she worked her part-time job at [employer] yesterday and is was twingy. She notes [...] less LBP with squatting down to picking machine operator something medium or heavy off the [...] Therapy, Core Stabilization [place] License #: [id number] [facility], [address], [address] [place], [place]. [address] Fax [place] LABORATORY ASSISTANT documented in this encounter Plan of Treatment Not on file documented as of this encounter Visit Diagnoses Not on filedocumented in this encounter Care Teams Field Checker Relationship Specialty Start Date End Date Almita Smallwood MD [address] [place] [address] PCP - General Internal Medicine 03/14/18 documented as of this encounter
--- OUTSIDE RECORDS SUMMARY | 2024-04-21 21:35 | XMS_ITS | Encounter Summary ---
Author Organization [facility] Address [address] [place] [address] Care Team Providers Care Owner Spa Director Name Role Phone Almita Smallwood MD [...] Date Expiration Date Visits Requested Visits Authorized [id number] Closed Performing Department to Schedule 03/25/2022 04/17/2023 57 60 Encounter Details Date Type Department Care Team (Late st Contact Info) Description 04/14/2022 8:30 AM RN CLINICAL RESOURCE - 04/14/2022 11:59 PM RN CLINICAL RESOURCE Hospital Encounter [facility] Services [address] [facility] [address] [place] [address] Zay Chen NP NO ADDRESS ON FILE [...] Coronavirus/COVID-19? No / Unsure 04/14/2022 10:03 AM RN CLINICAL RESOURCE documented as of this encounter Medications at [...] mcg by mouth daily. COLLAGEN MISC by [facility].(Non-Drug; Combo Route) route. TURMERIC [...] visits used/60 (3 used) visits approved by [facility] by 04-17-22 Authorization: n/a Summary List: Unchanged [...] and less LBP with squatting down to hot die picker something medium or heavy off the [...] Therapy, Core Stabilization [place]ING[place] License #: [id number] [facility], [address], [address] [place]. [address] Fax CLINICAL RESOURCE documented in this encounter Plan of Treatment Not on file documented as of this encounter Visit Diagnoses Not on filedocumented in this encounter Care Teams Owner Spa Director Relationship Specialty Start Date End Date Almita Smallwood MD [address] [place] [address] PCP - General Internal Medicine 03/14/18 documented as of this encounter
--- OUTSIDE RECORDS SUMMARY | 2024-04-21 21:35 | XMS_ITS | Encounter Summary ---
Author Organization [facility] Address [address] [place] [address] Care Team Providers Care Machine Operator Helper Name Role Phone Almita Smallwood MD Primary Care Provider + Reason for Visit * Reason Onset Date Comments Needs Appointment 11/24/2021 Encounter Details Date Type Department Care Team (Late st Contact Info) Description 11/24/2021 Telephone [facility] Internal Medicine - [id number] [place] [address] Almita Smallwood MD [address] [place] [address] Needs Appointment Social History Tobacco [...] documented as of this encounter Care Teams Machine Operator Helper Relationship Specialty Start Date End Date Almita Smallwood MD [address] [place] [address] PCP - General Internal Medicine 03/14/18 documented as of this encounter
--- OUTSIDE RECORDS SUMMARY | 2024-04-21 21:35 | XMS_ITS | Encounter Summary ---
Author Organization [facility] Address [address] [place] [address] Care Team Providers Care Legal Summer Intern Name Role Phone Almita Smallwood MD Primary Care Provider + Encounter Details Date Type Department Care Team (Late st Contact Info) Description 01/23/2021 Abstract [facility] EAR, NOSE AND THROAT [facility] [address] [facility] [address] [place] [address] Jorge Luis Black MD 607 [facility] [address] [place] [address] Social History Tobacco Use Types [...] documented as of this encounter Care Teams Legal Summer Intern Relationship Specialty Start Date End Date Almita Smallwood MD [address] [place] [address] PCP - General Internal Medicine 03/14/18 documented as of this encounter
--- OUTSIDE RECORDS SUMMARY | 2024-04-21 21:35 | XMS_ITS | Encounter Summary ---
Author Organization [facility] Address [address] [place] [address] Care Team Providers Care Material Disposition Inspector Name Role Phone Almita Smallwood MD Primary Care Provider + Reason for Visit * Reason Onset Date Comments Medication Refill 07/09/2021 Encounter Details Date Type Department Care Team (Late st Contact Info) Description 07/09/2021 Refill [facility] EAR, NOSE AND THROAT [facility] [address] [facility] [address] [place] [address] Jorge Luis Black MD 607 [facility]. [facility] [address] [place] [address] Social History Tobacco Use Types [...] documented as of this encounter Care Teams Material Disposition Inspector Relationship Specialty Start Date End Date Almita Smallwood MD [address] [place] [address] PCP - General Internal Medicine 03/14/18 documented as of this encounter
--- OUTSIDE RECORDS SUMMARY | 2024-04-21 21:35 | XMS_ITS | Encounter Summary ---
Author Organization [facility] Address [address] [place] [address] Care Team Providers Care Roving Can Tender Name Role Phone Almita Smallwood MD Primary Care Provider + Reason for Visit * Reason Onset Date Comments Medication Refill 12/24/2020 Encounter Details Date Type Department Care Team (Late st Contact Info) Description 12/24/2020 Refill [facility] EAR, NOSE AND THROAT [facility] 607 [facility] [address] [place] [address] Jorge Luis Black MD 607 [facility]. [facility] [address] [place] [address] Social History Tobacco Use Types [...] documented as of this encounter Care Teams Roving Can Tender Relationship Specialty Start Date End Date Almita Smallwood MD [address] [place] [address] PCP - General Internal Medicine 03/14/18 documented as of this encounter
--- OUTSIDE RECORDS SUMMARY | 2024-04-21 21:35 | XMS_ITS | Encounter Summary ---
Author Organization [facility] Address [address] [place] [address] Care Team Providers Care Associate Professor Of Chemistry Name Role Phone Almita Smallwood MD Primary Care Provider + Reason for Visit * Reason Onset Date Comments Results 11/20/2021 Encounter Details Date Type Department Care Team ([facility] Contact Info) Description 11/20/2021 Telephone [facility] Internal Medicine - [id number] [place] [address] Almita Smallwood MD [address] [place] [address] Results Social History Tobacco Use [...] Comment: FASTING:YES FASTING: YES Test Performed at: [facility] [address] [place] [address] ??[phone] Luis Enrique Anderson D.O., MPH Blood 01/20/2022 11:4 8 AM CDT 01/20/2022 11:49 AM CDT Almita Smallwood MD CHEMISTRY ORDERA [facility] [phone] [facility] [address] * IRON, TIBC, AND PERCENT SATURATION (01/20/2022 11:48 AM CDT) IRON 76 45 - 160 mcg/dL [facility] TIBC 270 250 - 450 mcg/dL (calc) [facility] IRON % SATURATION 28 16 - 45 % (calc) [facility] Comment: FASTING:YES FASTING: YES Test Performed at: [facility] [address] [place] [address] ??[phone] Luis Enrique Anderson D.O., MPH Blood 01/20/2022 11:4 8 AM CDT 01/20/2022 11:49 AM CDT Almita Smallwood MD CHEMISTRY ORDERA BL[facility] [phone] [facility] [address] * HEPATIC FUNCTION PANEL (01/20/2022 11:48 AM [...] Comment: FASTING:YES FASTING: YES Test Performed at: [facility] ??[phone] Luis Enrique Anderson D.O., MPH Blood 01/20/2022 11:4 8 AM CDT 01/20/2022 11:49 AM CDT Almita Smallwood MD CHEMISTRY ORDERA BLES [facility] [phone] [address] documented in this encounter Visit Diagnoses Diagnosis Chronic anemia- Primary Anemia, unspecified Elevated LFTs Other abnormal blood chemistry documented in this encounter Additional Health Concerns Assessment Noted Time PHQ-9 Depression Total Score: 1 10/16/19 22 2:00 PM CDT documented as of this encounter Care Teams Associate Professor Of Chemistry Relationship Specialty Start Date End Date Almita Smallwood MD [address] [place] [address] PCP - General Internal Medicine 03/14/18 documented as of this encounter
--- OUTSIDE RECORDS SUMMARY | 2024-04-21 21:35 | XMS_ITS | Encounter Summary ---
Author Organization [facility] Address [address] [place] [address] Care Team Providers Care Felt Hat Flanging Operator Name Role Phone Almita Smallwood MD Primary Care Provider + Reason for Referral * Eval and Treat (Routine) - Closed Specialty Diagnoses / Procedures Referred By Tati t Referred To Contact Physical Therapy Diagnoses Sciatica of left side Procedures PT EVAL AND TREAT Almita Smallwood MD [address] [place] [address] [facility] [address] [facility] [address] [place] [address] Referral ID Status Reason Start Date Expiration Date Visits Re quested Visits Authorized [id number] Closed 07/09/2021 04/17/2022 60 60 Reason for Visit * Reason Comments Back Pain Encounter Details Date Type Department Care Team (Late st Contact Info) Description 07/09/2021 10:00 AM CDT Video Visit [facility] Internal Medicine - [facility] [address] [place] [address] Almita Smallwood MD [address] [place] [address] Sciatica of left side (Primary [...] not a tobacco user. Almita Smallwood MD [facility] This encounter was completed via two-way synchronous audio and video communication. Patient expressed understanding that using technology outside of [facility] has higher potential tointroduce privacy risks: Not [...] documented as of this encounter Care Teams Felt Hat Flanging Operator Relationship Specialty Start Date End Date Almita Smallwood MD [address] [place] [address] PCP - General Internal Medicine 03/14/18 documented as of this encounter
--- OUTSIDE RECORDS SUMMARY | 2024-04-21 21:35 | XMS_ITS | Encounter Summary ---
Author Organization [facility] Address [address] [place] [address] Care Team Providers Care Rotary Screen Printing Machine Operator Name Role Phone Almita Smallwood MD Primary Care Provider + Reason for Referral * MRI (Routine) - Closed Specialty Diagnoses / Procedures Referred By Contac t Referred To Contact Radiology Diagnoses Chronic right-sided low back pain with right-sided sciatica Procedures MRI LUMBAR WO CONTRAST HandJennifer Vallecillo APRN NO ADDRESS ON FILE [facility] Mri [place] [address] [place] [address] Referral ID Status Reason Start Date Expiration Date Visits Re quested Visits Authorized [id number] Closed 03/16/2022 04/16/2023 1 1 THCARE INSURANCE SALES AGENT Reason for Visit * MRI (Routine) - Closed Specialty Diagnoses / Procedures Referred By Contac t Referred To Contact Radiology Diagnoses Chronic right-sided low back pain with right-sided sciatica Procedures MRI LUMBAR WO CONTRAST Jennifer Kerr APRN NO ADDRESS ON FILE [facility] Mri [place] [address] [place] [address] Referral ID Status Reason Start Date Expiration Date Visits Re quested Visits Authorized [id number] Closed 03/16/2022 04/16/2023 1 1 Encounter Details Date Type Department Care Team (Latest Contact Info) Description 03/26/2022 9:00 AM HEALTHCARE INSURANCE SALES AGENT - 03/26/2022 11:59 PM HEALTHCARE INSURANCE SALES AGENT Hospital Encounter [facility] MRI [place] [address] [place] [phone] Jennifer Kerr APRN NO ADDRESS ON FILE [...] Coronavirus/COVID-19? No / Unsure 03/26/2022 9:00 AM HEALTHCARE INSURANCE SALES AGENT documented as of this encounter Medications at [...] LUMBAR WO CONTRAST Routine 03/26/2022 10:21 AM HEALTHCARE INSURANCE SALES AGENT Chronic right-sided low back pain with right-sided sciatica documented in this encounter Results * MRI LUMBAR WO CONTRAST (03/26/2022 10:21 AM HEALTHCARE INSURANCE SALES AGENT) Anatomical Region Laterality Modality Spine Magnetic Resonan ce 03/26/2022 10:3 1 AM HEALTHCARE INSURANCE SALES AGENT Impressions 03/26/2022 10:54 AM HEALTHCARE INSURANCE SALES AGENT IMPRESSION: 1. 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 ?? DICTATION LOCATION: Location [address] [facility] [address] 03/26/2022 10:54 AM HEALTHCARE INSURANCE SALES AGENT EXAM: MRI LUMBAR WO CONTRAST DATE: 03/26/2022 [...] neural foraminal narrowing. DICTATION LOCATION: Location - [facility] Jennifer Hand-Eoloff HOSPITAL ADMINISTRATIVE ASSISTANT MR ORDERABLES documented in this encounter Visit Diagnoses Diagnosis Chronic right-sided low back pain with right-sided sciatica documented in this encounter Care Teams Rotary Screen Printing Machine Operator Relationship Specialty Start Date End Date Almita Smallwood MD [address] [place] [address] PCP - General Internal Medicine 03/14/18 documented as of this encounter
--- OUTSIDE RECORDS SUMMARY | 2024-04-21 21:36 | XMS_ITS | Encounter Summary ---
Author Organization [facility] Address [address] [place] [address] Care Team Providers Care Repairer Maintenance Building Name Role Phone Almita Smallwood MD Primary Care Provider + Reason for Referral * Outpatient Services (Routine) - Closed Specialty Diagnoses / Procedures Referred By Tati campos Referred To Contact Respiratory Therapy Diagnoses Shortness of breath on exertion Personal history of tobacco use Procedures PULMONARY FUNCTION TEST Patrick Luo MD [address] [place] [address] [facility] Pulmonary Function [place] [facility] [address] [place] [address] [place] [address] Referral ID Status Reason Start Date Expiration Date V isits Requested Visits Authorized [id number] Closed ST CTS 04/16/2020 05/17/2021 1 1 IT UNION EXAMINER Reason for Visit * Outpatient Services (Routine) - Closed Specialty Diagnoses / Procedures Referred By Tati campos Referred To Contact Respiratory Therapy Diagnoses Shortness of breath on exertion Personal history of tobacco use Procedures PULMONARY FUNCTION TEST Patrick Luo MD [address] [place] [address] St [facility] [place] [facility] [address] [place] [address] [place] [address] Referral ID Status Reason Start Date Expiration Date V isits Requested Visits Authorized [id number] Closed ST CTS 04/16/2020 05/17/2021 1 1 Encounter Details Date Type Department Care Team (Latest Contact Info) Description 05/23/2020 7:56 AM CREDIT UNION EXAMINER - 05/23/2020 11:59 PM CREDIT UNION EXAMINER Hospital Encounter [facility] [place] [facility] [address] [address] [place] [address] Patrick Luo MD [address] [place] [address] Discharge Disposition: Home or Self Care Social [...] COVID-19? No / Unsure 05/23/2020 7:54 AM CREDIT UNION EXAMINER documented as of this encounter Medications at [...] PULMONARY FUNCTION TEST Routine 05/23/2020 8:13 AM CREDIT UNION EXAMINER Shortness of breath on exertion Personal history of tobacco use documented in this encounter Results * PULMONARY FUNCTION TEST (05/23/2020 8:13 AM CREDIT UNION EXAMINER) 05/23/2020 8:13 AM CREDIT UNION EXAMINER Narrative INTERFACE SYSTEM - 05/23/2020 6:22 PM CREDIT UNION EXAMINER ?Pulmonary Function Report ? [facility] ? Test Date: ?05/23/2020 8:13 AM Pat Name: ? ANITHA HERMOSILLO ? Department: ?Room: ? Gender: ? F ?Supervisor Assembly Room: ?? : ?1960 ? Requested By: PATRICK LUO Order Number: [id number] ?Reading MD: ?? Beau Paranjothi Interpretive Statements [...] Function Study Electronically Signed On 05-23-2020 18:22:37 CREDIT UNION EXAMINER by Beau Levine Procedure Note Provider, Historical - 05/23/2020 Pulmonary Function Report [facility] Test Date: 05/23/2020 8:13 AM Pat Name: ANITHA HERMOSILLO Department: Room: Gender: F Supervisor Assembly Room: : 1960 Requested By: PATRICK LUO Order Number: [id number] Farhad MD: Fabiola Interpretive Statements The patient [...] Function Study Electronically Signed On 05-23-2020 18:22:37 CREDIT UNION EXAMINER by Beau Levine Patrick Luo MD PFT [...] documented as of this encounter Care Teams Repairer Maintenance Building Relationship Specialty Start Date End Date Almita Smallwood MD [address] [place] [address] PCP - General Internal Medicine 03/14/18 documented as of this encounter
--- OUTSIDE RECORDS SUMMARY | 2024-04-21 21:36 | XMS_ITS | Encounter Summary ---
Author Organization [facility] Address [address] [facility] Attn: [place] [address] Care Team Providers Care Director Of Conservation Name Role Phone Almita Smallwood MD Primary [...] COVID-19? No / Unsure 04/17/2020 1:22 PM SPLINE ROLLING MACHINE JOB SETTER documented as of this encounter Plan of Treatment Not on file documented as of this encounter Visit Diagnoses Not on filedocumented in this encounter Additional Health Concerns Assessment Noted Time PHQ-9 Depression Total Score: 2 02/15/20 20 3:00 PM CDT documented as of this encounter Care Teams Director Of Conservation Relationship Specialty Start Date End Date Almita Smallwood MD [address] [place] [address] PCP - General Internal Medicine 03/14/18 documented as of this encounter
--- OUTSIDE RECORDS SUMMARY | 2024-04-21 21:36 | XMS_ITS | Encounter Summary ---
Author Organization [facility] Address [address] [place] [address] Care Team Providers Care Nephrology Social Worker Name Role Phone Almita Smallwood MD Primary Care Provider + Reason for Visit * Reason Onset Date Comments RETURN CALL 03/05/2020 Mena returned c all to get results Encounter Details Date Type Department Care Team ([facility] st Contact Info) Description 03/05/2020 Telephone [facility] Internal Medicine - [place] [id number] [place] [address] Almita Smallwood MD [address] [place] [address] RETURN CALL (Mena returned call [...] COVID-19? No / Unsure 02/28/2020 7:54 AM SENIOR SOFTWARE PROJECT MANAGER documented as of this encounter Miscellaneous Notes * Telephone Encounter - Christin Leary RN - 03/05/2020 10:29 AM CST Pt aware per Dr Smallwood's orders mammogram results were normal and needs repeat mammogram in [address] Smallwood aware. OR SOFTWARE PROJECT MANAGER * Telephone Encounter - Sarah Lopez - 03/05/2020 9:12 AM CST Mena returned call to get results OR SOFTWARE PROJECT MANAGER documented in this encounter Plan of Treatment Not on file documented as of this encounter Visit Diagnoses Not on filedocumented in this encounter Additional Health Concerns Assessment Noted Time PHQ-9 Depression Total Score: 2 02/15/20 20 3:00 PM CDT documented as of this encounter Care Teams Nephrology Social Worker Relationship Specialty Start Date End Date Almita Smallwood MD [address] [place] [address] PCP - General Internal Medicine 03/14/18 documented as of this encounter
--- OUTSIDE RECORDS SUMMARY | 2024-04-21 21:36 | XMS_ITS | Encounter Summary ---
Author Organization [facility] Address [address] [place] [address] Care Team Providers Care Specialty Finishing Utility Person Name Role Phone Almita Smallwood MD Primary Care Provider + Reason for Visit * Reason Onset Date Comments Results 05/26/2020 PFT Encounter Details Date Type Department Care Team (Late st Contact Info) Description 05/26/2020 Telephone [facility] Pulmonology [facility] [address] [place] [address] Tom Luo MD [address] [place], [place] [phone] Results (PFT) Social History Tobacco Use Types [...] COVID-19? No / Unsure 05/23/2020 7:54 AM BACK MAKER documented as of this encounter Miscellaneous Notes * Telephone Encounter - Luis Enrique Ortiz - 05/26/2020 9:04 AM CST Patient notified of these results via [facility] email, instructed her to contact our office back if she has any other questions about these results. MAKER * Telephone Encounter - Tom Luo MD - 05/26/2020 8:57 AM CST Please let Mena know that her pulmonary function testing showed completely normal results. MAKER documented in this encounter Plan of Treatment Not on file documented as of this encounter Visit Diagnoses Not on filedocumented in this encounter Additional Health Concerns Assessment Noted Time PHQ-9 Depression Total Score: 2 02/15/20 20 3:00 PM CDT documented as of this encounter Care Teams Specialty Finishing Utility Person Relationship Specialty Start Date End Date Almita Smallwood MD [address] [place] [address] PCP - General Internal Medicine 03/14/18 documented as of this encounter
--- OUTSIDE RECORDS SUMMARY | 2024-04-21 21:36 | XMS_ITS | Encounter Summary ---
Author Organization [facility] Address [address] [place] [address] Care Team Providers Care Inside Finisher Name Role Phone Almita Smallwood MD Primary Care Provider + Reason for Visit * Reason Onset Date Comments exercise 03/03/2020 Encounter Details Date Type Department Care Team ([facility] Contact Info) Description 03/03/2020 Telephone [facility] Internal Medicine - [place] [id number] [place] [address] Almita Smallwood MD [address] [place] [address] exercise Social History Tobacco Use [...] COVID-19? No / Unsure 02/28/2020 7:54 AM SEMICONDUCTOR TECHNICIAN documented as of this encounter Miscellaneous Notes * Telephone Encounter - Christin Leary RN - 03/03/2020 3:10 PM CST Pt aware per Dr Smallwood's orders Nothing from her point of view would prelude her from working out and would need to start very slowly to gradually to build her tolerance.Pt verbalizes understanding.Dr Smallwood aware. CONDUCTOR TECHNICIAN * Telephone Encounter - Christin Leary, RN - 03/03/2020 3:01 PM CST LM x 1 for pt to call office. CONDUCTOR TECHNICIAN * Telephone Encounter - Almita Smallwood MD - 03/03/2020 2:47 PM SEMICONDUCTOR TECHNICIAN Nothing from my point of view would preclude her from working out. Would need to start very slowly to gradually build up her tolerance. CONDUCTOR TECHNICIAN * Telephone Encounter - Darlin Clinton - 03/03/2020 2:15 PM CST Patient wants to know if she can start working out again, she was having trouble breathing. Pulmonary appointment is the end of March. Please advise. Thank you. Sussy CONDUCTOR TECHNICIAN documented in this encounter Plan of Treatment Not on file documented as of this encounter Visit Diagnoses Not on filedocumented in this encounter Additional Health Concerns Assessment Noted Time PHQ-9 Depression Total Score: 2 02/15/20 20 3:00 PM CDT documented as of this encounter Care Teams Inside Finisher Relationship Specialty Start Date End Date Almita Smallwood MD [address] [place] [address] PCP - General Internal Medicine 03/14/18 documented as of this encounter
--- OUTSIDE RECORDS SUMMARY | 2024-04-21 21:36 | XMS_ITS | Encounter Summary ---
Author Organization [facility] Address [address] [place] [address] Care Team Providers Care Lumber Buyer Name Role Phone Almita Smallwood MD Primary Care Provider + Reason for Visit * Reason Onset Date Comments Results 03/10/2020 Encounter Details Date Type Department Care Team ([facility] Contact Info) Description 03/10/2020 Telephone [facility] Internal Medicine [facility] [address] [place] [address] Almita Smallwood MD [address] [place] [address] Results Social History Tobacco Use [...] COVID-19? No / Unsure 03/08/2020 8:45 AM ANY COMMODITY BUYER documented as of this encounter Miscellaneous Notes * Telephone Encounter - Elena Poe - 03/10/2020 9:35 AM CST Left message requesting pt call back for results. Result letter sent to pt via [employer] [place] and copy ofletter mailed to pt's home COMMODITY BUYER * Telephone Encounter - Elena Poe - 03/10/2020 9:33 AM CST ----- Message from Almita Smallwood MD sent at 03/09/2020 1:27 PM ANY COMMODITY BUYER ----- Please call patient with following results. US shows benign hemangioma. No further evaluation necessary. COMMODITY BUYER documented in this encounter Plan of Treatment Not on file documented as of this encounter Visit Diagnoses Not on filedocumented in this encounter Additional Health Concerns Assessment Noted Time PHQ-9 Depression Total Score: 2 02/15/20 20 3:00 PM CDT documented as of this encounter Care Teams Lumber Buyer Relationship Specialty Start Date End Date Almita Smallwood MD [address] [place] [address] PCP - General Internal Medicine 03/14/18 documented as of this encounter
--- OUTSIDE RECORDS SUMMARY | 2024-04-21 21:36 | XMS_ITS | Encounter Summary ---
Author Organization [facility] Address [address] [place] [address] Care Team Providers Care Clinical Support Specialist Name Role Phone Almita Smallwood MD Primary Care Provider + Reason for Referral * Eval and Treat (8-30 Days) - Closed Specialty Diagnoses / Procedures Referred By Tati campos Referred To Contact Otolaryngology Diagnoses Acute recurrent pansinusitis Tom Luo MD [address] [facility] [address] [place] [address] Referral ID Status Reason Start Date Expiration Date Visits Re quested Visits Authorized [id number] Closed 06/13/2020 06/14/2021 1 1 ER TECHNOLOGY TEACHER Encounter Details Date Type Department Care Team (Late st Contact Info) Description 06/13/2020 Orders Only [facility] Pulmonology [facility] [address] [place] [address] Tom Luo MD [address] [place] [address] Acute recurrent pansinusitis (Primary Dx) Social History [...] COVID-19? No / Unsure 05/29/2020 10:49 AM CAREER TECHNOLOGY TEACHER documented as of this encounter Plan of [...] documented as of this encounter Care Teams Clinical Support Specialist Relationship Specialty Start Date End Date Almita Smallwood MD [address] [place] [address] PCP - General Internal Medicine 03/14/18 documented as of this encounter
--- OUTSIDE RECORDS SUMMARY | 2024-04-21 21:36 | XMS_ITS | Encounter Summary ---
Author Organization [facility] Address [address] [place] [address] Care Team Providers Care Private Advisor Name Role Phone Almita Smallwodo MD Primary Care Provider + Reason for Referral * Radiology Services (Routine) - Closed Specialty Diagnoses / Procedures Referred By Tati campos Referred To Contact Cardiology Diagnoses Chest pain, unspecified type Procedures ECHO STRESS TEST EXERCISE Almita Smallwood MD [address] [place] [address] [facility] Nuclear Cardiology [address] [place] [address] Referral ID Status Reason Start Date Expiration Date V isits Requested Visits Authorized [id number] Closed [facility] CTS 02/25/2020 03/25/2020 1 1 UITMENT ASSISTANT Reason for Visit * Radiology Services (Routine) - Closed Specialty Diagnoses / Procedures Referred By Tati campos Referred To Contact Cardiology Diagnoses Chest pain, unspecified type Procedures ECHO STRESS TEST EXERCISE Almita Smallwood MD [address] [place] [address] [facility] Nuclear Cardiology [address] [place] [address] Referral ID Status Reason Start Date Expiration Date V isits Requested Visits Authorized [id number] Closed STL CTS 02/25/2020 03/25/2020 1 1 Encounter Details Date Type Department Care Team (Late st Contact Info) Description 02/28/2020 8:00 AM RECRUITMENT ASSISTANT - 02/28/2020 11:59 PM RECRUITMENT ASSISTANT Hospital Encounter [facility] Nuclear Medicine [address] [place] [address] Almita Smallwood MD [address] [place] [address] Discharge Disposition: Home or Self [...] COVID-19? No / Unsure 02/28/2020 7:54 AM RECRUITMENT ASSISTANT documented as of this encounter Medications [...] Almita Smallwood MD - 02/28/2020 8:00 AM RECRUITMENT ASSISTANT Please call patient with following results. Stress test normal. UITMENT ASSISTANT documented in this encounter Plan of Treatment Not on file documented as of this encounter Procedures Procedure Name Priority Date/Time Associated Diagnosis Comments ECHO STRESS TEST EXERCISE Routine 02/28/2020 8:52 AM RECRUITMENT ASSISTANT Chest pain, unspecified type documented in this encounter Results * ECHO STRESS TEST EXERCISE (02/28/2020 8:52 AM RECRUITMENT ASSISTANT) EJECTION FRACTION INTERFACE SYSTEM 02/28/2020 8:20 AM RECRUITMENT ASSISTANT Narrative INTERFACE SYSTEM - 02/28/2020 9:08 AM RECRUITMENT ASSISTANT -- [address] [address] [email or web address] -- Stress Echocardiography Tato Protocol -- Patient: ?Lisa Hermosillo MRN: ?[id number] Study ID: ? [id number] Gender: ? F : ?1960 Age: ?60 Race: ? CAU Height Study Date: ? 02/28/2020 Weight: Access. #: ?[id number] Account #: ?[id number] BP: -- -- *Referring Physician:* Almita Smallwood Catherine Louise *Ordering Physician:* ??Almita Smallwood Behavioral Psychologist: res counselor: Nurse: -- Indications: Chest pain. STUDY [...] peak heart rate and blood pressure was 43506py Hg/min. ??The patient experienced no chest pain [...] AM. ??Prepared and Electronically Authenticated Benjy Chaudhari [id number] Procedure Note Benjy Chaudhari MD - 02/28/2020 -- [address] [place] [email or web address] -- Stress Echocardiography Tato Protocol -- Patient: Lisa Hermosillo Study ID: [id number] Gender: F : 1960 Age: 60 Race: DEEJAY Height Study Date: 02/28/2020 Weight: Access. #: [id number] BP: -- -- *Referring Physician:Almita Cabrera Catherine Louise *Ordering Physician:Almita Cabrera Behavioral Psychologist: res counselor: Nurse: -- Indications: Chest pain. STUDY [...] peak heart rate and blood pressure was 04374xx Hg/min.The patient experienced no chest pain during [...] 08:20AM. Prepared and Electronically Authenticated Benjy Chaudhari [id number] Almita Smallwood MD ORDERABLES INTERFACE SYSTEM Refer to clinic/hospital department documented in this encounter Visit Diagnoses Diagnosis Chest pain, unspecified type documented in this encounter Additional Health Concerns Assessment Noted Time PHQ-9 Depression Total Score: 2 02/15/20 20 3:00 PM CDT documented as of this encounter Care Teams Private Advisor Relationship Specialty Start Date End Date Almita Smallwood MD [address] [place] [address] PCP - General Internal Medicine 03/14/18 documented as of this encounter
--- OUTSIDE RECORDS SUMMARY | 2024-04-21 21:36 | XMS_ITS | Encounter Summary ---
Author Organization [facility] Address [address] [place] [address] Care Team Providers Care Site Worker Name Role Phone Almita Smallwood MD Primary Care Provider + Reason for Visit * Reason Onset Date Comments needs appt 02/13/2020 Encounter Details Date Type Department Care Team (Late st Contact Info) Description 02/13/2020 Telephone [facility] Internal Medicine - [place] [id number] [place] [address] Almita Smallwood MD [address] [place] [address] needs appt Social History Tobacco [...] of done with this. I asked a [facility] doctor over the weekend. Based on whatI [...] Could you call me with a response? [phone]. Thanks, Mena Hermosillo documented in this encounter Plan of Treatment Not on file documented as of this encounter Visit Diagnoses Not on filedocumented in this encounter Care Teams Site Worker Relationship Specialty Start Date End Date Almita Smallwood MD [address] [place] [address] PCP - General Internal Medicine 03/14/18 documented as of this encounter
--- OUTSIDE RECORDS SUMMARY | 2024-04-21 21:36 | XMS_ITS | Encounter Summary ---
Author Organization [facility] Address [address] Attn: [place] [address] Care Team Providers Care Casing Flusher Name Role Phone Almita Smallwood MD Primary [...] COVID-19? No / Unsure 02/28/2020 7:54 AM ENTRY CLERK documented as of this encounter Plan of Treatment Not on file documented as of this encounter Visit Diagnoses Not on filedocumented in this encounter Additional Health Concerns Assessment Noted Time PHQ-9 Depression Total Score: 2 02/15/20 20 3:00 PM CDT documented as of this encounter Care Teams Casing Flusher Relationship Specialty Start Date End Date Almita Smallwood MD [address] [place] [address] PCP - General Internal Medicine 03/14/18 documented as of this encounter
--- OUTSIDE RECORDS SUMMARY | 2024-04-21 21:36 | XMS_ITS | Encounter Summary ---
Author Organization [facility] Address [address] [place] [address] Care Team Providers Care Statistical Consultant Name Role Phone Almita Smallwood MD Primary Care Provider + Encounter Details Date Type Department Care Team (Latest Contact Info) Description 04/16/2020 1:59 PM SPIN INSTRUCTOR - 04/16/2020 11:59 PM SPIN INSTRUCTOR Hospital Encounter [facility] [place] [facility] [address] [place] [address] Tom Luo MD [address] [place] [address] Discharge Disposition: Home or Self [...] COVID-19? No / Unsure 04/16/2020 12:43 PM SPIN INSTRUCTOR documented as of this encounter Medications at [...] PANEL, MIDWEST ALLERGENS Routine 04/16/2020 2:01 PM SPIN INSTRUCTOR Shortness of breath on exertion Personal history of tobacco use ALLERGY PANEL, PERENNIAL ALLERGENS Routine 04/16/2020 2:01 PM SPIN INSTRUCTOR Shortness of breath on exertion Personal history of tobacco use CBC WITH DIFFERENTIAL Routine 04/16/2020 2:01 PM SPIN INSTRUCTOR Shortness of breath on exertion Personal history of tobacco use IGE Routine 04/16/2020 2:01 PM SPIN INSTRUCTOR Shortness of breath on exertion Personal history of tobacco use documented in this encounter Results * ALLERGY PANEL, PERENNIAL ALLERGENS (04/16/2020 2:01 PM SPIN INSTRUCTOR) ALLERGEN ALTERNARIA TENUIS, IGE <0.35 kU/L 04/21/2020 1:17 PM [facility] Comment:Class 0 (Negative <0 .35) A. FUMIGATUS IGE <0.35 kU/L 04/21/19 1:17 PM [facility] Comment:Class 0 (Negative <0 .35) ALLERGEN C. HERBARUM <0.35 kU/L 04/21/2020 1:17 PM [facility] Comment:Class 0 (Negative <0 .35) ALLERGEN F. MONILIFORME <0.35 kU/L 04/21/2020 1:17 PM [facility] Comment:Class 0 (Negative <0 .35) ALLERGEN PENICILLIUM CHRYSOGENUM, IGE <0.35 kU/L 04/21/2020 1:17 PM [facility] Comment:Class 0 (Negative <0 .35) ALLERGEN E. PURPURASCENS <0.35 kU/L 04/21/2020 1:17 PM [facility] Comment:Class 0 (Negative <0 .35) ALLERGEN CAT EPITHELIUM, IGE <0.35 kU/L 04/21/2020 1:17 PM SPIN INSTRUCTOR [facility] Comment:Class 0 (Negative <0 .35) ALLERGEN DOG EPITH <0.35 kU/L 04/21/2020 1:17 PM [facility] Comment:Class 0 (Negative <0 .35) ALLERGEN COCKROACH, IGE <0.35 kU/L 04/21/2020 1:17 PM [facility] Comment:Class 0 (Negative <0 .35) ALLERGEN D.FARINAE, IGE <0.35 kU/L 04/21/2020 1:17 PM [facility] Comment:Class 0 (Negative <0 .35) ALLERGEN D. PTERONYSSINUS <0.35 kU/L 04/21/2020 1:17 PM [facility] Comment: Class 0 (Negative <0.35) Test Performed by: [facility] [address] [place] [address] Airport Clerk: Luis Enrique Alonzo M.D. Ph.D.; CLIA# [id number] Blood Venipuncture / Unknown 04/16/2020 2:01 PM SPIN INSTRUCTOR 04/16/2020 2:35 PM [facility] Tom Luo MD CHEMISTRY ORDERABL ES [facility] * ALLERGY PANEL, [facility] ALLERGENS (04/16/2020 2:01 PM SPIN INSTRUCTOR) ALLERGEN BIRCH <0.35 kU/L 04/21/2020 1:16 PM [facility] Comment:Class 0 (Negative <0 .35) ALLERGEN MAPLE <0.35 kU/L 04/21/2020 1:16 PM [facility] Comment:Class 0 (Negative <0 .35) ALLERGEN ELM <0.35 kU/L 04/21/2020 1:16 PM [facility] Comment:Class 0 (Negative <0 .35) ALLERGEN, CEDAR <0.35 kU/L 1:16 PM [facility] Comment:Class 0 (Negative <0 .35) ALLERGEN OAK <0.35 kU/L 04/21/2020 1:16 PM [facility] Comment:Class 0 (Negative <0 .35) ALLERGEN WHITE HICKORY, IGE <0.35 kU/L 04/21/2020 1:16 PM [facility] Comment:Class 0 (Negative <0 .35) ALLERGEN WALNUT TREE <0.35 kU/L 04/21/2020 1:16 PM [facility] Comment:Class 0 (Negative <0 .35) ALLERGEN BERMUDA GRASS <0.35 kU/L 04/21/2020 1:16 PM [facility] Comment:Class 0 (Negative <0 .35) ALLERGEN, NAYE GRASS <0.35 kU/L 04/21/2020 1:16 PM [facility] Comment:Class 0 (Negative <0 .35) INGRID GRASS IGE <0.35 kU/L 021 1:16 PM [facility] Comment:Class 0 (Negative <0 .35) ALLERGEN ENG. PLANTAIN <0.35 kU/L 04/21/2020 1:16 PM [facility] Comment:Class 0 (Negative <0 .35) ALLERGEN RAGWEED <0.35 kU/L 04/21/19 21 1:16 PM [facility] Comment:Class 0 (Negative <0 .35) ALLERGEN ROUGH PIGWEED <0.35 kU/L 04/21/2020 1:16 PM [facility] Comment:Class 0 (Negative <0 .35) ALLERGEN NEPALESE THISTLE <0.35 kU/L 04/21/2020 1:16 PM [facility] Comment: Class 0 (Negative <0.35) Test Performed by: [facility][Note 3] [address] [place] [address] Airport Clerk: Luis Enrique Alonzo M.D. Ph.D.; CLIA# [id number] Blood Venipuncture / Unknown 04/16/2020 2:01 PM SPIN INSTRUCTOR 04/16/2020 2:35 PM SPIN INSTRUCTOR Tom Luo MD CHEMISTRY ORDERABL ES [facility] * IGE (04/16/2020 2:01 PM SPIN INSTRUCTOR) Pathologist [facility] IGE 7.2 <=214 kU/L 04/21/2020 12:41 PM SPIN INSTRUCTOR [facility] Comment: Test Performed by: [facility][Note 3] [address] [place] [address] Airport Clerk: Luis Enrique Alonzo M.D. Ph.D.; CLIA# [id number] Blood Venipuncture / Unknown 04/16/2020 2:01 PM SPIN INSTRUCTOR 04/16/2020 2:34 PM SPIN INSTRUCTOR Tom Luo MD CHEMISTRY ORDERABL ES Performing Organization Address City/[facility]/ZIP Co de Phone Number [facility] * (ABNORMAL) CBC WITH DIFFERENTIAL (04/16/2020 2:01 PM SPIN INSTRUCTOR) Pathologist [facility] WBC 4.7 4.0 - 9.8 K/uL 04/16/2020 2:51 PM SPIN INSTRUCTOR [employer] RBC 3.87(L) 3.90 - 4.90 M/uL 04/16/2020 2:51 PM SPIN INSTRUCTOR [employer] [facility] HEMOGLOBIN 11.6(L) 11.8 - 14.8 g/dL 04/16/2020 2:51 PM SPIN INSTRUCTOR [employer] [facility] HEMATOCRIT 37.4 35.5 - 44.0 % 04/16/2020 2:51 PM SPIN INSTRUCTOR [employer] [facility] MCV 96.6 82.0 - 99.0 fL 04/16/2020 2:51 PM SPIN INSTRUCTOR [employer] [facility] MCH 30.0 27.2 - 32.6 pg 04/16/2020 2:51 PM SPIN INSTRUCTOR [employer] [facility] MCHC 31.0(L) 31.5 - 35.5 g/dL 04/16/2020 2:51 PM SPIN INSTRUCTOR [employer] [facility] RDW 12.4 11.5 - 14.5 % 04/16/2020 2:51 PM SPIN INSTRUCTOR [employer] [facility] - [facility] RDW-STDEV 44.0 37.1 - 48.7 fL 04/16/2020 2:51 PM SPIN INSTRUCTOR [employer] [facility] - [facility] PLATELETS 206 140 - 350 K/uL 04/16/2020 2:51 PM SPIN INSTRUCTOR [employer] [facility] - [facility] MPV 9.8 9.3 - 12.4 fL 04/16/2020 2:51 PM SPIN INSTRUCTOR [employer] [facility] - . [facility] NEUTROPHILS 62 % 04/16/2020 2:51 PM SPIN INSTRUCTOR [employer] [facility] - . [facility] LYMPHOCYTES 29 % 04/16/2020 2:51 PM SPIN INSTRUCTOR [employer] [facility] - . [facility] MONOCYTES 7 % 04/16/2020 2:51 PM SPIN INSTRUCTOR [employer] [facility] - . [facility] EOSINOPHILS 1 % 04/16/2020 2:51 PM SPIN INSTRUCTOR [employer] [facility] - . [facility] BASOPHILS 0 % 04/16/2020 2:51 PM SPIN INSTRUCTOR [employer] [facility] - [facility] IMMATURE GRANULOCYTES 0 % 04/16/2020 2:51 PM SPIN INSTRUCTOR [employer] [facility] - [facility] NEUTROPHIL ABSOLUTE 2.94 1.90 - 7.00 K/uL 04/16/2020 2:51 PM SPIN INSTRUCTOR [employer] [facility] - . [facility] LYMPHOCYTE ABSOLUTE 1.36 0.70 - 4.50 K/uL 04/16/2020 2:51 PM SPIN INSTRUCTOR [employer] [facility] - [facility] MONOCYTE ABSOLUTE 0.32 0.10 - 1.30 K/uL 04/16/2020 2:51 PM SPIN INSTRUCTOR [employer] [facility] - . [facility] EOSINOPHIL ABSOLUTE 0.06 0.00 - 0.70 K/uL 04/16/2020 2:51 PM SPIN INSTRUCTOR [employer] [facility] BASOPHILS ABSOLUTE 0.02 0.00 - 0.20 K/uL 04/16/2020 2:51 PM SPIN INSTRUCTOR [employer] [facility] - . [facility] IMMATURE GRANULOCYTES ABSOLUTE 0.01 0.00 - 0.03 K/uL 04/16/2020 2:51 PM SPIN INSTRUCTOR [employer] [facility] - [facility] Blood Venipuncture / Unknown 04/16/2020 2:01 PM SPIN INSTRUCTOR 04/16/2020 2:35 PM SPIN INSTRUCTOR Tom Luo MD HEMATOLOGY ORDERAB LES [facility]# [id number] [address] [place] [address] documented in this encounter Visit Diagnoses Diagnosis Shortness of breath on exertion Shortness of breath Personal history of tobacco use Personal history of tobacco use, presenting hazards to health documented in this encounter Additional Health Concerns Assessment Noted Time PHQ-9 Depression Total Score: 2 02/15/20 20 3:00 PM CDT documented as of this encounter Care Teams Statistical Consultant Relationship Specialty Start Date End Date Almita Smallwood MD [address] [place] [address] PCP - General Internal Medicine 03/14/18 documented as of this encounter
--- OUTSIDE RECORDS SUMMARY | 2024-04-21 21:36 | XMS_ITS | Encounter Summary ---
Author Organization [facility] Address [address] [place] [address] Care Team Providers Care Manager Employee Relations Name Role Phone Almita Smallwood MD Primary Care Provider + Reason for Referral * Eval and Treat (Urgent) - Closed Specialty Diagnoses / Procedures Referred By Tati campos Referred To Contact Pulmonology Diagnoses Shortness of breath Dyspnea on exertion Almita Smallwood MD [address] [place] [address] Tom Luo MD [id number] [place] [address] Referral ID Status Reason Start Date Expiration Date Visits Re quested Visits Authorized [id number] Closed 02/28/2020 02/27/2021 1 1 ION HELPER Reason for Visit * Reason Onset Date Comments Results 02/28/2020 Encounter Details Date Type Department Care Team ([facility] Contact Info) Description 02/28/2020 Telephone [facility]3] Internal Medicine [facility] [address] [place] [address] Almita Smallwood MD [address] [place] [address] Results Social History Tobacco Use [...] COVID-19? No / Unsure 02/28/2020 7:54 AM STATION HELPER documented as of this encounter Miscellaneous Notes * Telephone Encounter - Christin Leary RN - 02/28/2020 11:21 AM CST Pt aware of Dr Smallwood's recommendations and wants to see Stage Electrician so referral placed per Dr Smallwood'sorders and pt aware [facility] will schedule appt with Pulmonology.Pt verbalizes understanding.Dr Smallwood aware. ION HELPER * Telephone Encounter - Almita Smallwood MD - 02/28/2020 10:26 AM STATION HELPER Has she been using the albuterol? If so, may need to see ingot stripper or Pulm ION HELPER * Telephone Encounter - Christin Leary RN [...] know what the next step is.Please advise. ION HELPER * Telephone Encounter - Christin Leary RN - 02/28/2020 9:56 AM CST ----- Message from Almita Smallwood MD sent at 02/28/2020 9:28 AM STATION HELPER ----- Please call patient with following results. Stress test normal. ION HELPER documented in this encounter Plan of [...] as of this encounter Care Teams Manager Employee Relations Relationship Specialty Start Date End Date Almita Smallwood MD [address] [place] [address] PCP - General Internal Medicine 03/14/18 documented as of this encounter
--- OUTSIDE RECORDS SUMMARY | 2024-04-21 21:36 | XMS_ITS | Encounter Summary ---
Author Organization [facility] Address [address] [facility] Attn: [place] [address] Care Team Providers Care Regional Facilities Specialist Name Role Phone Almita Smallwood MD [...] COVID-19? No / Unsure 05/06/2020 10:51 AM SMOKING PIPES CLEANER documented as of this encounter Plan of Treatment Not on file documented as of this encounter Visit Diagnoses Not on filedocumented in this encounter Additional Health Concerns Assessment Noted Time PHQ-9 Depression Total Score: 2 02/15/20 20 3:00 PM CDT documented as of this encounter Care Teams Regional Facilities Specialist Relationship Specialty Start Date End Date Almita Smallwood MD [address] [place] [address] PCP - General Internal Medicine 03/14/18 documented as of this encounter
--- OUTSIDE RECORDS SUMMARY | 2024-04-21 21:36 | XMS_ITS | Encounter Summary ---
Author Organization [facility] Address [address] [place] [address] Care Team Providers Care Child Nurse Name Role Phone Almita Smallwood MD Primary Care Provider + Reason for Referral * Eval and Treat (Routine) - Closed Specialty Diagnoses / Procedures Referred By Tati campos Referred To Contact Oncology Diagnoses 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 breast Almita Smallwood MD [address] [place] [address] Reji Cain MD [address] [place] [address] Referral ID Status Reason Start Date Expiration Date Visits Re quested Visits Authorized [id number] Closed 02/15/2020 04/17/2020 6 6 * Radiology Services (Routine) - Closed Specialty Diagnoses / Procedures Referred By Tati campos Referred To Contact Cardiology Diagnoses Chest pain, unspecified type Procedures ECHO STRESS TEST EXERCISE Almita Smallwood MD [address] [place] [address] [facility] Nuclear Cardiology [address] [place] [address] Referral ID Status Reason Start Date Expiration Date V isits Requested Visits Authorized [id number] Closed STL CTS 02/25/2020 03/25/2020 1 1 * CT Scan (Routine) - Closed Specialty Diagnoses / Procedures Referred By Contosmin t Referred To Contact Radiology Diagnoses Dyspnea on exertion Shortness of breath Procedures CT CHEST W CONTRAST Almita Smallwood MD [address] [place] [address] Scan [address] [place] [address] Referral ID Status Reason Start Date Expiration Date V isits Requested Visits Authorized [id number] Closed STL CTS 02/20/2020 03/20/2020 1 1 Reason for Visit * Reason Comments Sinus Problem drainage Chest Tightness chest discomfort and trouble taking deep breaths Headache sinus headache Encounter Details Date Type Department Care Team (Late st Contact Info) Description 02/15/2020 3:00 PM CDT Office Visit [facility] Internal Medicine - [address] [address] Almita Smallwood MD [address] [place] [address] Dyspnea on exertion (Primary Dx); Shortness [...] with this. I asked a [facility] doctor over the weekend. Based on what [...] deep breath. Was stressed at that time. [place] better after stressful appoitnment. Had some point [...] ipratropium bromide (ATROVENT) 42 mcg (0.06 %) [place], Non-Aerosol USE 1 TO 2 SPRAY(S) IN [...] BMI within normal limits Almita Smallwood MD [facility] documented in this encounter Miscellaneous Notes * Result Encounter Note - Almita Smallwood MD - 02/18/2020 12:55 PM GOLF SALES MANAGER Please call patient with following results. Labs [...] work to explain symptoms, will await imaging SALES MANAGER documented in this encounter Plan of [...] CDT Dyspnea on exertion Fatigue, unspecified type [place] ECG ROUTINE ECG W/LEAST 12 LDS W/I&R Routine 02/15/2020 12:53 PM CDT Chest pain, unspecified type documented in this encounter Results * ECHO STRESS TEST EXERCISE (02/28/2020 8:52 AM GOLF SALES MANAGER) EJECTION FRACTION INTERFACE SYSTEM 02/28/2020 8:20 AM GOLF SALES MANAGER Narrative INTERFACE SYSTEM - 02/28/2020 9:08 AM GOLF SALES MANAGER -- [address] [address] [email or web address] -- Stress Echocardiography Tato Protocol -- Patient: ?Lisa Hermosillo MRN: ?[id number] Study ID: ? [id number] Gender: ? F : ?1960 Age: ?60 Race: ? CAU Height Study Date: ? 02/28/2020 Weight: Access. #: ?[id number] Account #: ?[id number] BP: -- -- *Referring Physician:* Almita Smallwood Catherine Louise *Ordering Physician:* ??Almita Smallwood Director Talent: flagsetter: Nurse: -- Indications: Chest pain. STUDY CONCLUSIONS: [...] peak heart rate and blood pressure was 50352xh Hg/min. ??The patient experienced no chest pain [...] AM. ??Prepared and Electronically Authenticated Benjy Chaudhari [id number]:07:50 Procedure Note Benjy Chaudhari MD - 02/28/2020 -- [address] [place] [address] [email or web address] -- Stress Echocardiography Tato Protocol -- Patient: Lisa Hermosillo Study ID: [id number] Gender: F : 1960 Age: 60 Race: [facility] Height Study Date: 02/28/2020 Weight: Access. #: [id number] BP: -- -- *Referring Physician:Almita Cabrera Catherine Louise *Ordering Physician:Almita Cabrera Director Talent: flagsetter: Nurse: -- Indications: Chest pain. STUDY CONCLUSIONS: [...] peak heart rate and blood pressure was 18812vo Hg/min.The patient experienced no chest pain during [...] 08:20AM. Prepared and Electronically Authenticated Benjy Chaudhari [id number]:50 Almita Smallwood MD ORDERABLES INTERFACE SYSTEM Refer to clinic/hospital department * CT CHEST W CONTRAST (02/21/2020 10:40 AM GOLF SALES MANAGER) Anatomical Region Laterality Modality Chest Computed Tomogra phy 02/21/2020 10:4 2 AM GOLF SALES MANAGER Impressions 02/21/2020 3:28 PM GOLF SALES MANAGER IMPRESSION: No acute cardiopulmonary process. Mild lung emphysema. Possible left hepatic lobe 1 cm hemangioma, not well characterized on this exam. Upper back subcutaneous nodule likely representing sebaceous cyst. Correlate clinically. DICTATION LOCATION: Location [address] [place] [address] The examination was performed with the adjustment of mA according to the patient size and/or the use of Iterative Reconstruction Technique. Narrative 02/21/2020 3:[address] OF THE CHEST WITH INTRAVENOUS CONTRAST [...] representing sebaceous cyst. Correlate clinically. DICTATION LOCATION: [address] The examination was performed with the adjustment of mA according to the patient size and/or the use of Iterative Reconstruction Technique. Almita Smallwood MD CT ORDERABLES * VITAMIN D 25 HYDROXY (02/15/2020 3:46 PM CDT) VITAMIN D TOTAL (25OH) 48 30 - 100 ng/mL 02/15/2020 10:08 PM CDT [facility] Blood Venipuncture / Unknown 02/15/2020 3:46 PM CDT 02/15/2020 3:47 PM CDT Narrative [facility] - 02/15/2020 10:08 PM CDT Interpretive Data Chart: Deficient: ? 0 - 20 ng/mL Insufficient: ?21 - 29 ng/mL Sufficient: ?30 - 100 ng/mL Increased Risk of Hypercalciuria: ??>100 ng/ml Toxic: ? >150 ng/ml Almita Smallwood MD CHEMISTRY ORDERA [facility] CLIA# [id number] [address] [facility] [place] [address] * (ABNORMAL) COMPREHENSIVE METABOLIC PANEL (02/15/2020 3:46 PM CDT) SODIUM 138 136 - 145 mmol/L 02/15/2020 9:46 PM CDT [facility] POTASSIUM 3.9 3.5 - 5.0 mmol/L 02/15/2020 9:46 PM CDT [facility] CHLORIDE 99 98 - 107 mmol/L 02/15/2020 9:46 PM CDT [facility] CO2 25 22 - 29 mmol/L 02/15/2020 9:46 PM CDT [facility] CALCIUM 9.7 8.6 - 10.2 mg/dL 02/15/2020 9:46 PM CDT [facility] BUN 16 6 - 20 mg/dL 02/15/2020 9:46 PM CDT [facility] CREATININE 0.91 0.51 - 0.95 mg/dL 02/15/2020 9:46 PM CDT [facility] GLUCOSE 111(H) 74 - 99 mg/dL 02/15/2020 9:46 PM CDT [facility] TOTAL PROTEIN 7.2 6.7 - 8.6 g/dL 02/15/2020 9:46 PM CDT [facility] ALBUMIN 4.4 3.5 - 5.2 g/dL 02/15/2020 9:46 PM CDT [facility] BILIRUBIN TOTAL 0.4 0.3 - 1.2 mg/dL 02/15/2020 9:46 PM CDT [facility] ALKALINE PHOSPHATASE 78 35 - 104 U/L 02/15/2020 9:46 PM CDT [facility] AST 23 <33 U/L 02/15/2020 9:46 PM CDT [facility] ALT 19 <34 U/L 02/15/2020 9:46 PM CDT [facility] GFR >60 >=60 mL/min/1.7 3 sq meter 02/15/2020 9:46 PM CDT [facility] Comment: eGFR has not been validated [...] sq meter 02/15/2020 9:46 PM CDT [facility] ANION GAP 14 8 - 16 mmol/L 02/15/2020 9:46 PM T [facility] Blood Venipuncture / Unknown 02/15/2020 3:46 PM CDT 02/15/2020 3:47 PM CDT Narrative [facility] - 02/15/2020 9:46 PM CDT Samples containing indocyanine green cause interferences on Total and/or Direct Bilirubin and must not be measured. Almita Smallwood MD CHEMISTRY ORDERA BLES [facility] CLIA# [id number] [address] [facility] [address] [address] * (ABNORMAL) CBC WITH DIFFERENTIAL (02/15/2020 3:46 PM CDT) [facility] WBC 6.6 4.0 - 9.8 K/uL 02/15/2020 9:25 PM CDT [facility] RBC 3.72(L) 3.90 - 4.90 M/uL 02/15/2020 9:25 PM CDT [facility] HEMOGLOBIN 11.5(L) 11.8 - 14.8 g/dL 02/15/2020 9:25 PM CDT [facility] HEMATOCRIT 35.2(L) 35.5 - 44.0 % 02/15/2020 9:25 PM CDT [facility] MCV 94.6 82.0 - 99.0 fL 02/15/2020 9:25 PM CDT [facility] MCH 30.9 27.2 - 32.6 pg 02/15/2020 9:25 PM CDT [facility] MCHC 32.7 31.5 - 35.5 g/dL 02/15/2020 9:25 PM CDT [facility] RDW 12.6 11.5 - 14.5 % 02/15/2020 9:25 PM CDT [facility] RDW-STDEV 43.0 37.1 - 48.7 fL 02/15/2020 9:25 PM CDT [facility] PLATELETS 265 140 - 350 K/uL 02/15/2020 9:25 PM CDT [facility] MPV 9.4 9.3 - 12.4 fL 02/15/2020 9:25 PM CDT [facility] NEUTROPHILS 78 % 02/15/2020 9:25 PM CDT [facility] LYMPHOCYTES 16 % 02/15/2020 9:25 PM CDT [facility] MONOCYTES 5 % 02/15/2020 9:25 PM CDT [facility] EOSINOPHILS 1 % 02/15/2020 9:25 PM CDT [facility] BASOPHILS 0 % 02/15/2020 9:25 PM CDT [facility] IMMATURE GRANULOCYTES 0 % 02/15/2020 9:25 PM CDT [facility] NEUTROPHIL ABSOLUTE 5.12 1.90 - 7.00 K/uL 02/15/2020 9:25 PM CDT [facility] LYMPHOCYTE ABSOLUTE 1.05 0.70 - 4.50 K/uL 02/15/2020 9:25 PM CDT [facility] MONOCYTE ABSOLUTE 0.31 0.10 - 1.30 K/uL 02/15/2020 9:25 PM CDT [facility] EOSINOPHIL ABSOLUTE 0.03 0.00 - 0.70 K/uL 02/15/2020 9:25 PM CDT [facility] BASOPHILS ABSOLUTE 0.02 0.00 - 0.20 K/uL 02/15/2020 9:25 PM CDT [facility] IMMATURE GRANULOCYTES ABSOLUTE 0.02 0.00 - 0.03 K/uL 02/15/2020 9:25 PM CDT [facility] Blood Venipuncture / Unknown 02/15/2020 3:46 PM CDT 02/15/2020 3:47 PM CDT Almita Smallwood MD HEMATOLOGY ORDER [facility]# [id number] [address] [place] [address] * VITAMIN B12 LEVEL (02/15/2020 3:46 PM CDT) [facility] VITAMIN B12 495 232-1,245 pg/mL 02/15/2020 10:08 PM CDT [facility] Comment:It has been reported that between [...] MD CHEMISTRY YAZAN TREJO Performing Organization Address City/[facility]/ZIP Co de Phone Number [facility]# [id number] [address] [place] [address] * TSH REFLEXIVE (02/15/2020 3:46 PM CDT) TSH 1.55 0.27 - 4.20 uIU/mL 02/15/2020 9:54 PM CDT [facility] Blood Venipuncture / Unknown 02/15/2020 3:46 PM CDT 02/15/2020 3:47 PM CDT Almita TREJO Performing Organization Address [facility] Co de Phone Number [facility]# [id number] [address] [place] [address] * [place] ECG ROUTINE ECG W/LEAST 12 LDS W/I&R (02/15/2020 12:53 PM CDT) Narrative [facility] [place] - 02/15/2020 12:53 PM [...] with this. I asked a [facility] doctor over the weekend. Basedon what I [...] a deep breath. Was stressed atthat time. [place] better after stressful appoitnment. Had some point [...] ipratropium bromide (ATROVENT) 42 mcg (0.06 %) [place], Non-Aerosol USE 1TO 2 SPRAY(S) IN EACH [...] for screening mammogram for malignant neoplasm of etndvzY04.31 V76.12 MAMMO SCRN BILAT 3D RUTH W [...] BMI within normal limits Almita Smallwood MD [facility] Internal Medicine- [facility] Almita Smallwood MD ECG ORDERABLES [facility] CLIA #[id number] [address] [place] [address], documented in this encounter Visit Diagnoses Diagnosis [...] documented as of this encounter Care Teams Child Nurse Relationship Specialty Start Date End Date Almita Smallwood MD [address] [place] [address] PCP - General Internal Medicine 03/14/18 documented as of this encounter
--- OUTSIDE RECORDS SUMMARY | 2024-04-21 21:36 | XMS_ITS | Encounter Summary ---
Author Organization [facility] Address [address] Attn: [place] [address] Care Team Providers Care Label Folder Name Role Phone Almita Smallwood MD Primary [...] COVID-19? No / Unsure 02/20/2020 10:32 AM ROTO GRAVURE PRESS OPERATOR documented as of this encounter Plan of Treatment Not on file documented as of this encounter Visit Diagnoses Not on filedocumented in this encounter Additional Health Concerns Assessment Noted Time PHQ-9 Depression Total Score: 2 02/15/20 20 3:00 PM CDT documented as of this encounter Care Teams Label Folder Relationship Specialty Start Date End Date Almita Smallwood MD [address] [place] [address] PCP - General Internal Medicine 03/14/18 documented as of this encounter
--- OUTSIDE RECORDS SUMMARY | 2024-04-21 21:36 | XMS_ITS | Encounter Summary ---
Author Organization [facility] Address [address] [place] [address] Care Team Providers Care Gas Cutter Name Role Phone Almita Smallwood MD Primary Care Provider + Reason for Referral * Eval and Treat (8-30 Days) - Closed Specialty Diagnoses / Procedures Referred By Tati campos Referred To Contact Otolaryngology Diagnoses Recurrent sinusitis Tom Luo MD [address] [place] [address] Jorge Luis Moctezuma MD [address] [place] [address] Referral ID Status Reason Start Date Expiration Date V isits Requested Visits Authorized [id number] Closed CRS To Schedule (STL) 05/29/2020 05/29/2021 1 1 ATIONAL RISK MANAGER Reason for Visit * Reason Comments Follow Up Encounter Details Date Type Department Care Team (Latest Contact Info) Description 05/29/2020 11:00 AM OPERATIONAL RISK MANAGER Office Visit [facility] Pulmonology [facility] [address] [place] [address] Tom Luo MD [address] [place] [address] Recurrent sinusitis (Primary Dx); Personal [...] COVID-19? No / Unsure 05/29/2020 10:49 AM OPERATIONAL RISK MANAGER documented as of this encounter Last Filed Vital Signs Vital Sign Reading Time Taken Comments Blood Pressure 126/76 05/29/2020 11:12 AM OPERATIONAL RISK MANAGER Pulse 68 05/29/2020 11:12 AM OPERATIONAL RISK MANAGER Temperature - - Respiratory Rate 16 05/29/2020 11:12 AM OPERATIONAL RISK MANAGER Oxygen Saturation 97% 05/29/2020 11:12 AM OPERATIONAL RISK MANAGER RA Inhaled Oxygen Concentration - - Weight 73.1 kg (161 lb 3.2 oz) 05/29/2020 11:12 AM OPERATIONAL RISK MANAGER Height 167.6 cm (5' 6 ) 05/29/2020 11:12 AM OPERATIONAL RISK MANAGER Body Mass Index 26.02 05/29/2020 11:12 AM OPERATIONAL RISK MANAGER documented in this encounter Progress Notes * Tom Luo MD - 05/29/2020 11:13 AM CST Pulmonary Outpatient Followup Note Tom Luo MD 05/29/2020 11:16 AM Patient Name: Lisa Hermosillo 1960 Primary Care Physician: Almita Smallwood MD Date of Service: 05/29/2020 Impression: 1. Shortness of breath on exertion 2. Mild chronic persistent asthma 3. Centrilobular emphysema 4. Recurrent sinusitis 5. Personal history of tobacco icn-83-qifv-year smoking history, quit 2004 6. Lung cysts [...] a day smoker for 20 years with 22-lham-yixo smoking history, quit 2004, initially seen 04/16/2020 [...] Normal serum antigen specific IgE levels for [place] and perennial allergens Normal serum total IgE [...] file Gets together: Not on file Attends sabianist service: Not on file Active member of [...] organomegaly. Extremities: No cyanosis, clubbing or edema. ACCOUNT ADVISOR: Mood and affect appropriate, no resting tremor, nonfocal exam. DATA: Allergies: No Known Allergies Current Medications Current Outpatient Medications Medication Sig Dispense Refill ??? kpojlgkrrax-fnspodkgktud-cpoevuqqgu (TRELEGY ELLIPTA) 100-62.5-25 mcg Disk with Device [...] ipratropium bromide (ATROVENT) 42 mcg (0.06 %) [place], Non-Aerosol USE 1 TO 2 SPRAY(S) IN [...] representing sebaceous cyst. Correlate clinically. DICTATION LOCATION: [address] The examination was performed with the adjustment of mA according to the patient size and/or the use of Iterative Reconstruction Technique. PFT Cardiac Results for orders placed or performed during the hospital encounter of 02/28/20 ECHO STRESS TEST EXERCISE Result Value Ref Range EJECTION FRACTION Narrative -- [address] [place] [address] [email or web address] -- Stress Echocardiography Tato Protocol -- Patient: Lisa Hermosillo Study ID: [id number] Gender: F : 1960 Age: 60 Race: DEEJAY Height Study Date: 02/28/2020 Weight: Access. #: [id number] BP: -- -- *Referring Physician:Almita Cabrera Catherine Louise *Ordering Physician:Almita Cabrera Insulation Board Calender Operator: diamond merchant: Nurse: -- Indications: Chest pain. STUDY CONCLUSIONS: [...] peak heart rate and blood pressure was 89894sa Hg/min. The patient experienced no chest pain [...] AM. Prepared and Electronically Authenticated Benjy Chaudhari [id number]:50 Tom Luo MD ATIONAL RISK MANAGER documented in this encounter Plan of [...] documented as of this encounter Care Teams Gas Cutter Relationship Specialty Start Date End Date Almita Smallwood MD [address] [place] [address] PCP - General Internal Medicine 03/14/18 documented as of this encounter
--- OUTSIDE RECORDS SUMMARY | 2024-04-21 21:36 | XMS_ITS | Encounter Summary ---
Author Organization [facility] Address [address] [place] [address] Care Team Providers Care Dog Raiser Name Role Phone Almita Smallwood MD Primary Care Provider + Reason for Visit * Reason Comments Establish Care EST CARE * Eval and Treat (Routine) - Closed Specialty Diagnoses / Procedures Referred By Contosmin t Referred To Contact Oncology Diagnoses 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 breast Almita Smallwood MD [address] [place] [address] Reji Cain MD [address] [place] [address] Referral ID Status Reason Start Date Expiration Date Visits Re quested Visits Authorized [id number] Closed 02/15/2020 04/17/2020 6 6 Encounter Details Date Type Department Care Team (Late st Contact Info) Description 02/22/2020 11:45 AM DIESEL MECHANIC CONSTRUCTION Initial consult [facility] ONCOLOGY AND HEMATOLOGY - [place] [address] [facility] [address] [place] [address] Reji Cain MD [address] [place] [address] Ductal carcinoma in situ (DCIS) [...] COVID-19? No / Unsure 02/21/2020 9:18 AM DIESEL MECHANIC CONSTRUCTION documented as of this encounter Last Filed Vital Signs Vital Sign Reading Time Taken Comments Blood Pressure 130/76 02/22/2020 11:42 AM DIESEL MECHANIC CONSTRUCTION Pulse 84 02/22/2020 11:42 AM DIESEL MECHANIC CONSTRUCTION Temperature 36.5 ??C (97.7 ??F) 02/22/2020 11:[address] Respiratory Rate - - Oxygen Saturation - - Inhaled Oxygen Concentration - - Weight 70.5 kg (155 lb 8 oz) 02/22/2020 11:42 AM DIESEL MECHANIC CONSTRUCTION Height 167.6 cm (5' 6 ) 02/22/2020 11:42 AM DIESEL MECHANIC CONSTRUCTION Body Mass Index 25.1 02/22/2020 11:42 AM DIESEL MECHANIC CONSTRUCTION documented in this encounter Progress Notes * Reji Cain MD - 02/22/2020 11:48 AM CST HISTORY OF PRESENT ILLNESS Lisa Hermosillo, a 60 y.o. female presents with a Chief Complaint of Establish Care (EST CARE ) Subjective HPI She had DCIS and focal LCIS in November 2016 and had a lumpectomy. [facility] [place]. She moved to [place] a couple of years ago but continued follow upvsits with Dr. Laura, her medical oncologist to [facility]. She was started on tamoxifen after lumpectomy [...] ipratropium bromide (ATROVENT) 42 mcg (0.06 %) [place], Non-Aerosol USE 1 TO 2 SPRAY(S) IN [...] her pharmacy. She knows to contact her plumber apprentice should she develop any vaginal bleeding. Will [...] further questions. This note was transcribed using 'SergeMD', a computerized voice recognition without a human school librarian. This report may or may not have been adjusted for typographical, grammatical and syntax errors. EL MECHANIC CONSTRUCTION documented in this encounter Miscellaneous Notes * Assessment & Plan Note - Reji Cain MD - 02/25/2020 7:56 AM DIESEL MECHANIC CONSTRUCTION Associated Problem(s): Ductal carcinoma in situ (DCIS) [...] her pharmacy. She knows to contact her plumber apprentice should she develop any vaginal bleeding. Will plan to see her every 6 months. Advised her to do monthly breast examinations and yearly mammograms and to contact us or her breast surgeon should she notice any abnormality on her breast exam. She verbalized understanding of today's di scussion, was satisfied with the office visit, and had no further questions. EL MECHANIC CONSTRUCTION documented in this encounter Plan of Treatment Not on file documented as of this encounter Visit Diagnoses Diagnosis 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 breast Estrogen receptor positive status (ER+) Estrogen receptor positive status [ER+] documented in this encounter Additional Health Concerns Assessment Noted Time PHQ-9 Depression Total Score: 2 02/15/20 20 3:00 PM CDT documented as of this encounter Care Teams Dog Raiser Relationship Specialty Start Date End Date Almita Smallwood MD [address] [place] [address] PCP - General Internal Medicine 03/14/18 documented as of this encounter
--- OUTSIDE RECORDS SUMMARY | 2024-04-21 21:36 | XMS_ITS | Encounter Summary ---
Author Organization [facility] Address [address] [place] [address] Care Team Providers Care Powerhouse Engineer Name Role Phone Almita Smallwood MD Primary Care Provider + Encounter Details Date Type Department Care Team (Late st Contact Info) Description 05/20/2020 Abstract [facility] [address] Almita Smallwood MD [address] [place] [address] Social History Tobacco Use Types [...] COVID-19? No / Unsure 05/16/2020 1:20 PM DAIRY FROZEN MANAGER documented as of this encounter Plan of Treatment Not on file documented as of this encounter Visit Diagnoses Not on filedocumented in this encounter Additional Health Concerns Assessment Noted Time PHQ-9 Depression Total Score: 2 02/15/20 20 3:00 PM CDT documented as of this encounter Care Teams Powerhouse Engineer Relationship Specialty Start Date End Date Almita Smallwood MD [address] [place] [address] PCP - General Internal Medicine 03/14/18 documented as of this encounter
--- OUTSIDE RECORDS SUMMARY | 2024-04-21 21:36 | XMS_ITS | Encounter Summary ---
Author Organization [facility] Address [address] [place] [address] Care Team Providers Care Tele Tech Name Role Phone Almita Smallwood MD Primary Care Provider + Encounter Details Date Type Department Care Team (Late st Contact Info) Description 04/16/2020 Abstract [facility] Internal Medicine [address] [address] Almita Smallwood MD [address] [place] [address] Social History Tobacco Use Types [...] COVID-19? No / Unsure 04/16/2020 12:43 PM CEMENT MASON documented as of this encounter Plan of Treatment Not on file documented as of this encounter Visit Diagnoses Not on filedocumented in this encounter Additional Health Concerns Assessment Noted Time PHQ-9 Depression Total Score: 2 02/15/20 20 3:00 PM CDT documented as of this encounter Care Teams Tele Tech Relationship Specialty Start Date End Date Almita Smallwood MD [address] [place] [address] PCP - General Internal Medicine 03/14/18 documented as of this encounter
--- OUTSIDE RECORDS SUMMARY | 2024-04-21 21:36 | XMS_ITS | Encounter Summary ---
Author Organization [facility] Address [address] [place] [address] Care Team Providers Care Retail Asset Protection Specialist Name Role Phone Almita Smallwood MD Primary Care Provider + Reason for Referral * Outpatient Services (Routine) - Closed Specialty Diagnoses / Procedures Referred By Tati campos Referred To Contact Respiratory Therapy Diagnoses Shortness of breath on exertion Personal history of tobacco use Procedures PULMONARY FUNCTION TEST Patrick Luo MD [address] [place] [address] [facility] Pulmonary Function [place] [address] [place] [address] Referral ID Status Reason Start Date Expiration Date V isits Requested Visits Authorized [id number] Closed [facility] CTS 04/16/2020 05/17/2021 1 1 TRONIC TECH Reason for Visit * Reason Comments Shortness of Breath Establish Care * Eval and Treat (Urgent) - Closed Specialty Diagnoses / Procedures Referred By Tati campos Referred To Contact Pulmonology Diagnoses Shortness of breath Dyspnea on exertion Almita Smallwood MD [address] [place] [address] aPtrick Luo MD [address] [place] [address] Referral ID Status Reason Start Date Expiration Date Visits Re quested Visits Authorized [id number] Closed 02/28/2020 02/27/2021 1 1 Encounter Details Date Type Department Care Team (Late st Contact Info) Description 04/16/2020 1:00 PM ELECTRONIC TECH Office Visit [facility] Pulmonology [facility] [address] [place] [address] Patrick Luo MD [address] [place] [address] Shortness of breath on exertion (Primary Dx); [...] COVID-19? No / Unsure 04/17/2020 1:22 PM ELECTRONIC TECH documented as of this encounter Last Filed Vital Signs Vital Sign Reading Time Taken Comments Blood Pressure 126/74 04/16/2020 12:55 PM ELECTRONIC TECH Pulse 82 04/16/2020 12:55 PM ELECTRONIC TECH Temperature - - Respiratory Rate 16 04/16/2020 12:55 PM ELECTRONIC TECH Oxygen Saturation 96% 04/16/2020 12:55 PM ELECTRONIC TECH RA Inhaled Oxygen Concentration - - Weight 73 kg (161 lb) 04/16/2020 12:55 PM ELECTRONIC TECH Height 167.6 cm (5' 6 ) 04/16/2020 12:55 PM ELECTRONIC TECH Body Mass Index 25.99 04/16/2020 12:55 PM ELECTRONIC TECH documented in this encounter Progress Notes * Patrick Luo MD - 04/16/2020 12:57 PM CST Pulmonary Outpatient History and Physical Patrick Luo MD 04/16/2020 12:57 PM Patient Name: Lisa Hermosillo 1960 Primary Care Physician: Almita Smallwood MD Date of Service: 04/16/2020 Impression: 1. Shortness of breath on exertion 2. Recurrent sinusitis 3. Personal history of tobacco par-13-pewv-year smoking history, quit 2004 4. 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 Obtain pulmonary function test to stratify current lung physiology 2. CBC with differential cell count to evaluate for eosinophilic phenotype indicative of asthma 3. Serum total IgE level 4. Serum antigen specific IgE levels for [place] and perennial allergens 5. Trial of Trelegy [...] a day smoker for 20 years with 93-qtfh-gwoj smoking history, quit 2004, who is seen [...] ipratropium bromide (ATROVENT) 42 mcg (0.06 %) [place], Non-Aerosol USE 1 TO 2 SPRAY(S) IN [...] rashes Lymph Nodes: Cervical, supraclavicular nodes normal. AUTOMATIC BANDSAW TENDER: Mood and affect appropriate, no resting tremor, [...] representing sebaceous cyst. Correlate clinically. DICTATION LOCATION: [address] The examination was performed with the adjustment of mA according to the patient size and/or the use of Iterative Reconstruction Technique. PFT Cardiac Results for orders placed or performed during the hospital encounter of 02/28/20 ECHO STRESS TEST EXERCISE Result Value Ref Range EJECTION FRACTION Narrative -- [address] [place] [address] [email or web address] -- Stress Echocardiography Tato Protocol -- Patient: Lisa Hermosillo Study ID: [id number] Gender: F : 1960 Age: 60 Race: [facility] Height Study Date: 02/28/2020 Weight: Access. #: [id number] BP: -- -- *Referring Physician:Almita Cabrera Catherine Louise *Ordering Physician:Almita Cabrera Ankle Patch Molder: artillery or naval gunfire observer: Nurse: -- Indications: Chest pain. STUDY CONCLUSIONS: [...] peak heart rate and blood pressure was 37533af Hg/min. The patient experienced no chest pain [...] AM. Prepared and Electronically Authenticated Benjy Chaudhari [id number] Patrick Luo MD TRONIC TECH documented in this encounter Plan of Treatment Not on file documented as of this encounter Results * PULMONARY FUNCTION TEST (05/23/2020 8:13 AM ELECTRONIC TECH) 05/23/2020 8:13 AM ELECTRONIC TECH Narrative INTERFACE SYSTEM - 05/23/2020 6:22 PM ELECTRONIC TECH ?Pulmonary Function Report ? [facility] ? Test Date: ?05/23/2020 8:13 AM Pat Name: ? LISA ANURAG ? Department: ?Room: ? Gender: ? F ?Armature Bander: ?? : ?1960 ? Requested By: PATRICK LUO Order Number: [id number] ?Farhad MCCRACKEN: ?? Beau Levine Interpretive Statements [...] Function Study Electronically Signed On 05-23-2020 18:22:37 ELECTRONIC TECH by Beau Levine Procedure Note Provider, Historical - 05/23/2020 Pulmonary Function Report [facility] Test Date: 05/23/2020 8:13 AM Pat Name: LISA HERMOSILLO Department: Room: Gender: F Armature Bander: : 1960 Requested By: PATRICK LUO Order Number: [id number] Reading MD: Fabiola Interpretive Statements The patient [...] Function Study Electronically Signed On 05-23-2020 18:22:37 ELECTRONIC TECH by Beau Levine Patrick Luo MD PFT ORDERABLES INTERFACE SYSTEM Refer to clinic/hospital department * ALLERGY PANEL, PERENNIAL ALLERGENS (04/16/2020 2:01 PM ELECTRONIC TECH) ALLERGEN ALTERNARIA TENUIS, IGE <0.35 kU/L 04/21/2020 1:17 PM ELECTRONIC TECH [facility] Comment:Class 0 (Negative <0 .35) A. FUMIGATUS IGE <0.35 kU/L 04/21/19 1:17 PM ELECTRONIC TECH [facility] Comment:Class 0 (Negative <0 .35) ALLERGEN C. HERBARUM <0.35 kU/L 04/21/2020 1:17 PM ELECTRONIC TECH [facility] Comment:Class 0 (Negative <0 .35) ALLERGEN F. MONILIFORME <0.35 kU/L 04/21/2020 1:17 PM ELECTRONIC TECH [facility] Comment:Class 0 (Negative <0 .35) ALLERGEN PENICILLIUM CHRYSOGENUM, IGE <0.35 kU/L 04/21/2020 1:17 PM [facility] Comment:Class 0 (Negative <0 .35) ALLERGEN E. PURPURASCENS <0.35 kU/L 04/21/2020 1:17 PM ELECTRONIC TECH [facility] Comment:Class 0 (Negative <0 .35) ALLERGEN CAT EPITHELIUM, IGE <0.35 kU/L 04/21/2020 1:17 PM ELECTRONIC TECH [facility] Comment:Class 0 (Negative <0 .35) ALLERGEN DOG EPITH <0.35 kU/L 04/21/2020 1:17 PM [facility] Comment:Class 0 (Negative <0 .35) ALLERGEN COCKROACH, IGE <0.35 kU/L 04/21/2020 1:17 PM [facility] Comment:Class 0 (Negative <0 .35) ALLERGEN D.FARINAE, IGE <0.35 kU/L 04/21/2020 1:17 PM [facility] Comment:Class 0 (Negative <0 .35) ALLERGEN D. PTERONYSSINUS <0.35 kU/L 04/21/2020 1:17 PM [facility] Comment: Class 0 (Negative <0.35) Test Performed by: [facility] [address] [place] [address] Hl7 Developer: Luis Enrique Alonzo M.D. Ph.D.; CLIA# [id number] Blood Venipuncture / Unknown 04/16/2020 2:01 PM ELECTRONIC TECH 04/16/2020 2:35 PM ELECTRONIC TECH Patrick Luo MD CHEMISTRY ORDERABL ES [facility] * [facility]EL, [facility] (04/16/2020 2:01 PM ELECTRONIC TECH) ALLERGEN BIRCH <0.35 kU/L 04/21/2020 1:16 PM [facility] Comment:Class 0 (Negative <0 .35) ALLERGEN MAPLE <0.35 kU/L 04/21/2020 1:16 PM [facility] Comment:Class 0 (Negative <0 .35) ALLERGEN ELM <0.35 kU/L 04/21/2020 1:16 PM [facility] Comment:Class 0 (Negative <0 .35) ALLERGEN, CEDAR <0.35 kU/L 1:16 PM [facility] Comment:Class 0 (Negative <0 .35) ALLERGEN OAK <0.35 kU/L 04/21/2020 1:16 PM [facility] Comment:Class 0 (Negative <0 .35) ALLERGEN WHITE HICKORY, IGE <0.35 kU/L 04/21/2020 1:16 PM [facility] Comment:Class 0 (Negative <0 .35) ALLERGEN WALNUT TREE <0.35 kU/L 04/21/2020 1:16 PM [facility] Comment:Class 0 (Negative <0 .35) ALLERGEN BERMUDA GRASS <0.35 kU/L 04/21/2020 1:16 PM [facility] Comment:Class 0 (Negative <0 .35) ALLERGEN, NAYE GRASS <0.35 kU/L 04/21/2020 1:16 PM [facility] Comment:Class 0 (Negative <0 .35) INGRID GRASS IGE <0.35 kU/L 021 1:16 PM [facility] Comment:Class 0 (Negative <0 .35) ALLERGEN ENG. PLANTAIN <0.35 kU/L 04/21/2020 1:16 PM [facility] Comment:Class 0 (Negative <0 .35) ALLERGEN RAGWEED <0.35 kU/L 04/21/19 21 1:16 PM [facility] Comment:Class 0 (Negative <0 .35) ALLERGEN ROUGH PIGWEED <0.35 kU/L 04/21/2020 1:16 PM [facility] Comment:Class 0 (Negative <0 .35) ALLERGEN ERITREAN THISTLE <0.35 kU/L 04/21/2020 1:16 PM [facility] Comment: Class 0 (Negative <0.35) Test Performed by: [facility] [address] [place] [address] Hl7 Developer: Luis Enrique Alonzo M.D. Ph.D.; CLIA# [id number] Blood Venipuncture / Unknown 04/16/2020 2:01 PM ELECTRONIC TECH 04/16/2020 2:35 PM ELECTRONIC TECH Patrick Luo MD CHEMISTRY ORDERABL ES [facility] * IGE (04/16/2020 2:01 PM ELECTRONIC TECH) Pathologist [facility] IGE 7.2 <=214 kU/L 04/21/2020 12:41 PM ELECTRONIC TECH [facility] Comment: Test Performed by: [facility] [address] [place] [address] Hl7 Developer: Luis Enrique Alonzo M.D. Ph.D.; CLIA# [id number] Blood Venipuncture / Unknown 04/16/2020 2:01 PM ELECTRONIC TECH 04/16/2020 2:34 PM ELECTRONIC TECH Patrick Luo MD CHEMISTRY ORDERABL ES Performing Organization Address City/[facility]/ZIP Co de Phone Number [facility] * (ABNORMAL) CBC WITH DIFFERENTIAL (04/16/2020 2:01 PM ELECTRONIC TECH) [facility] WBC 4.7 4.0 - 9.8 K/uL 04/16/2020 2:51 PM ELECTRONIC TECH [employer] [facility] RBC 3.87(L) 3.90 - 4.90 M/uL 04/16/2020 2:51 PM ELECTRONIC TECH [employer] [facility] HEMOGLOBIN 11.6(L) 11.8 - 14.8 g/dL 04/16/2020 2:51 PM ELECTRONIC TECH [employer] [facility] HEMATOCRIT 37.4 35.5 - 44.0 % 04/16/2020 2:51 PM ELECTRONIC TECH [employer] [facility] MCV 96.6 82.0 - 99.0 fL 04/16/2020 2:51 PM ELECTRONIC TECH [employer] [facility] - [facility] MCH 30.0 27.2 - 32.6 pg 04/16/2020 2:51 PM ELECTRONIC TECH [facility] MCHC 31.0(L) 31.5 - 35.5 g/dL 04/16/2020 2:51 PM ELECTRONIC TECH [employer] [facility] - [facility] RDW 12.4 11.5 - 14.5 % 04/16/2020 2:51 PM ELECTRONIC TECH [employer] [facility] - [facility] RDW-STDEV 44.0 37.1 - 48.7 fL 04/16/2020 2:51 PM ELECTRONIC TECH [employer] [facility] - [facility] PLATELETS 206 140 - 350 K/uL 04/16/2020 2:51 PM ELECTRONIC TECH [employer] [facility] - [facility] MPV 9.8 9.3 - 12.4 fL 04/16/2020 2:51 PM ELECTRONIC TECH [employer] [facility] - [facility] NEUTROPHILS 62 % 04/16/2020 2:51 PM ELECTRONIC TECH [employer] [facility] LYMPHOCYTES 29 % 04/16/2020 2:51 PM ELECTRONIC TECH [employer] [facility] MONOCYTES 7 % 04/16/2020 2:51 PM ELECTRONIC TECH [employer] [facility] EOSINOPHILS 1 % 04/16/2020 2:51 PM ELECTRONIC TECH [employer] [facility] - [facility] BASOPHILS 0 % 04/16/2020 2:51 PM ELECTRONIC TECH [employer] [facility] - [facility] IMMATURE GRANULOCYTES 0 % 04/16/2020 2:51 PM ELECTRONIC TECH [employer] [facility] - [facility] NEUTROPHIL ABSOLUTE 2.94 1.90 - 7.00 K/uL 04/16/2020 2:51 PM ELECTRONIC TECH [employer] [facility] - [facility] LYMPHOCYTE ABSOLUTE 1.36 0.70 - 4.50 K/uL 04/16/2020 2:51 PM ELECTRONIC TECH [employer] [facility] - . [facility] MONOCYTE ABSOLUTE 0.32 0.10 - 1.30 K/uL 04/16/2020 2:51 PM ELECTRONIC TECH [employer] [facility] - [facility] EOSINOPHIL ABSOLUTE 0.06 0.00 - 0.70 K/uL 04/16/2020 2:51 PM ELECTRONIC TECH [employer] [facility] - . [facility] BASOPHILS ABSOLUTE 0.02 0.00 - 0.20 K/uL 04/16/2020 2:51 PM ELECTRONIC TECH [employer] [facility] - [facility] IMMATURE GRANULOCYTES ABSOLUTE 0.01 0.00 - 0.03 K/uL 04/16/2020 2:51 PM ELECTRONIC TECH [employer] [facility] - [facility] Blood Venipuncture / Unknown 04/16/2020 2:01 PM ELECTRONIC TECH 04/16/2020 2:35 PM ELECTRONIC TECH Patrick Luo MD HEMATOLOGY ORDERAB [facility]# [id number] [address] [place] [address] documented in this encounter Visit Diagnoses Diagnosis [...] as of this encounter Care Teams Retail Asset Protection Specialist Relationship Specialty Start Date End Date Almita Smallwood MD [address] [place] [address] PCP - General Internal Medicine 03/14/18 documented as of this encounter
--- OUTSIDE RECORDS SUMMARY | 2024-04-21 21:36 | XMS_ITS | Encounter Summary ---
Author Organization [facility] Address [address] [place] [address] Care Team Providers Care Child Care Lead Teacher Name Role Phone Almita Smallwood MD Primary Care Provider + Reason for Visit * Reason Onset Date Comments Results 02/18/2020 Encounter Details Date Type Department Care Team ([facility] Contact Info) Description 02/18/2020 Telephone [facility] ONCOLOGY AND HEMATOLOGY-[address] [address] Almita Smallwood MD [address] [place] [address] Results Social History Tobacco Use [...] Pt aware of above and states understanding. TRONIC GAME DEVELOPER * Telephone Encounter - Bev Acosta RN - 02/18/2020 1:43 PM CST ----- Message from Almita Smallwood MD sent at 02/18/2020 12:55 PM ELECTRONIC GAME DEVELOPER ----- Please call patient with following results. [...] work to explain symptoms, will await imaging TRONIC GAME DEVELOPER documented in this encounter Plan of Treatment Not on file documented as of this encounter Visit Diagnoses Not on filedocumented in this encounter Additional Health Concerns Assessment Noted Time PHQ-9 Depression Total Score: 2 02/15/20 20 3:00 PM CDT documented as of this encounter Care Teams Child Care Lead Teacher Relationship Specialty Start Date End Date Almita Smallwood MD [address] [place] [address] PCP - General Internal Medicine 03/14/18 documented as of this encounter
--- OUTSIDE RECORDS SUMMARY | 2024-04-21 21:36 | XMS_ITS | Encounter Summary ---
Author Organization [facility] Address [address] [facility] Attn: [place] [address] Care Team Providers Care Clin Nurse Name Role Phone Almita Smallwood MD [...] COVID-19? No / Unsure 05/16/2020 1:20 PM SOIL SCIENCE TEACHER documented as of this encounter Plan of Treatment Not on file documented as of this encounter Visit Diagnoses Not on filedocumented in this encounter Additional Health Concerns Assessment Noted Time PHQ-9 Depression Total Score: 2 02/15/20 20 3:00 PM CDT documented as of this encounter Care Teams Clin Nurse Relationship Specialty Start Date End Date Almita Smallwood MD [address] [place] [address] PCP - General Internal Medicine 03/14/18 documented as of this encounter
--- OUTSIDE RECORDS SUMMARY | 2024-04-21 21:36 | XMS_ITS | Encounter Summary ---
Author Organization [facility] Address [address] [facility] Attn: [place] [address] Care Team Providers Care Flying Squad Worker Name Role Phone Almita Smallwood MD [...] COVID-19? No / Unsure 04/03/2020 9:00 AM SCRAP CRANE OPERATOR documented as of this encounter Plan of Treatment Not on file documented as of this encounter Visit Diagnoses Not on filedocumented in this encounter Additional Health Concerns Assessment Noted Time PHQ-9 Depression Total Score: 2 02/15/20 20 3:00 PM CDT documented as of this encounter Care Teams Flying Squad Worker Relationship Specialty Start Date End Date Almita Smallwood MD [address] [place] [address] PCP - General Internal Medicine 03/14/18 documented as of this encounter
--- OUTSIDE RECORDS SUMMARY | 2024-04-21 21:36 | XMS_ITS | Encounter Summary ---
Author Organization [facility] Address [address] [facility] Attn: Epic Prelude ADT [facility] [place] [address] Care Team Providers Care Administrative Secretary Name Role Phone Almita Smallwood MD Primary [...] on filedocumented in this encounter Care Teams Administrative Secretary Relationship Specialty Start Date End Date Almita Smallwood MD [address] [place] [address] PCP - General Internal Medicine 03/14/18 documented as of this encounter
--- OUTSIDE RECORDS SUMMARY | 2024-04-21 21:36 | XMS_ITS | Encounter Summary ---
Author Organization Address [address] [facility] Attn: Epic Prelude ADT [facility] [place] [address] Care Team Providers Care Popcorn Candy Maker Name Role Phone Almita Smallwood MD [...] documented as of this encounter Care Teams Popcorn Candy Maker Relationship Specialty Start Date End Date Almita Smallwood MD [address] [place] [address] PCP - General Internal Medicine 03/14/18 documented as of this encounter
--- OUTSIDE RECORDS SUMMARY | 2024-04-21 21:36 | XMS_ITS | Encounter Summary ---
Author Organization [facility] Address [address] [place] [address] Care Team Providers Care Ethics Instructor Name Role Phone Almita Smallwood MD Primary Care Provider + Reason for Referral * CT Scan (Routine) - Closed Specialty Diagnoses / Procedures Referred By Tati campos Referred To Contact Radiology Diagnoses Dyspnea on exertion Shortness of breath Procedures CT CHEST W CONTRAST Almita Smallwood MD [address] [place] [address] Scan [address] [place] [address] Referral ID Status Reason Start Date Expiration Date V isits Requested Visits Authorized [id number] Closed [facility] CTS 02/20/2020 03/20/2020 1 1 ULE INSPECTOR Reason for Visit * CT Scan (Routine) - Closed Specialty Diagnoses / Procedures Referred By Tati campos Referred To Contact Radiology Diagnoses Dyspnea on exertion Shortness of breath Procedures CT CHEST W CONTRAST Almita Smallwood MD [address] [place] [address] Scan [address] [place] [address] Referral ID Status Reason Start Date Expiration Date V isits Requested Visits Authorized [id number] Closed [facility] CTS 02/20/2020 03/20/2020 1 1 Encounter Details Date Type Department Care Team (Late st Contact Info) Description 02/21/2020 9:29 AM AMPOULE INSPECTOR - 02/21/2020 11:59 PM AMPOULE INSPECTOR Hospital Encounter [facility] CT Scan S [facility] [address] [place] [address] Almita Smallwood MD [address] [place] [address] Discharge Disposition: Home or Self [...] COVID-19? No / Unsure 02/21/2020 9:18 AM AMPOULE INSPECTOR documented as of this encounter Medications at [...] and NUCLEAR MEDICINE MEDICATION and FLUSH PROTOCOL [facility] ORDERS ARE ENTERED ???PER PROTOCOL?? Enter the protocol in the patient???s electronic health record using NowSpotsphrase: .imagingmedflushprotocol Communication Orders: o For ordered imaging [...] procedure. ??? If at any time the Metal Roofing Mechanic has a question about which option to [...] solution with the pateint???s nurse to CT [place] Administer 45mL of diluted Iohexol oral solution, [...] and Pharmacy & Therapeutics Committee Date: 11/2016 ULE INSPECTOR documented in this encounter Miscellaneous Notes * Result Encounter Note - Almita Smallwood MD - 02/21/2020 9:40 AM AMPOULE INSPECTOR Please call patient with following results. CT [...] it is causing all of her symptoms. ULE INSPECTOR documented in this encounter Plan of Treatment Not on file documented as of this encounter Procedures Procedure Name Priority Date/Time Associated Diagnosis Comments CT CHEST W CONTRAST Routine 02/21/2020 1 0:40 AM AMPOULE INSPECTOR Dyspnea on exertion Shortness of breath documented in this encounter Results * CT CHEST W CONTRAST (02/21/2020 10:40 AM AMPOULE INSPECTOR) Anatomical Region Laterality Modality Chest Computed Tomogra phy 02/21/2020 10:4 2 AM AMPOULE INSPECTOR Impressions 02/21/2020 3:28 PM AMPOULE INSPECTOR IMPRESSION: No acute cardiopulmonary process. Mild lung emphysema. Possible left hepatic lobe 1 cm hemangioma, not well characterized on this exam. Upper back subcutaneous nodule likely representing sebaceous cyst. Correlate clinically. DICTATION LOCATION: Location [address] [place] [address] The examination was performed with the adjustment of mA according to the patient size and/or the use of Iterative Reconstruction Technique. Narrative 02/21/2020 3:[address] OF THE CHEST WITH INTRAVENOUS CONTRAST [...] sebaceous cyst. Correlate clinically. DICTATION LOCATION: Location [address] [place] [address] The examination was performed with the adjustment [...] 1041, Routine Contrast Given 02/21/2020 10:41 AM AMPOULE INSPECTOR 90 mL sodium chloride flush injection 10 mL 10 mL, IV, ONE TIME ONLY, 1 dose, On Kathleen 02/21/20 at 1015, Routine Given 02/21/2020 10:19 AM AMPOULE INSPECTOR 10 mL sodium chloride flush injection 10 mL 10 mL, IV, SEE ADMIN INSTRUCTIONS, Starting on Kathleen 02/21/20 at 1013, Until 02/22/20 at 0312, Routine Given 02/21/2020 10:41 AM AMPOULE INSPECTOR 10 mL documented in this encounter Additional Health Concerns Assessment Noted Time PHQ-9 Depression Total Score: 2 02/15/20 20 3:00 PM CDT documented as of this encounter Care Teams Ethics Instructor Relationship Specialty Start Date End Date Almita Smallwood MD [address] [place] [address] PCP - General Internal Medicine 03/14/18 documented as of this encounter
--- OUTSIDE RECORDS SUMMARY | 2024-04-21 21:36 | XMS_ITS | Encounter Summary ---
Author Organization [facility] Address [address] [facility] Attn: [place] [address] Care Team Providers Care Strip Mill Operator Name Role Phone Almita Smallwood MD [...] COVID-19? No / Unsure 02/21/2020 9:18 AM SYSTEMS DESIGNER documented as of this encounter Plan of Treatment Not on file documented as of this encounter Visit Diagnoses Not on filedocumented in this encounter Additional Health Concerns Assessment Noted Time PHQ-9 Depression Total Score: 2 02/15/20 20 3:00 PM CDT documented as of this encounter Care Teams Strip Mill Operator Relationship Specialty Start Date End Date Almita Smallwood MD [address] [place] [address] PCP - General Internal Medicine 03/14/18 documented as of this encounter
--- OUTSIDE RECORDS SUMMARY | 2024-04-21 21:36 | XMS_ITS | Encounter Summary ---
Author Organization [facility] Address [address] [place] [address] Care Team Providers Care Chemical Supervisor Name Role Phone Almita Smallwood MD [...] DIGITAL BREAST TOMOSYNTHESIS BI Almita Smallwood MD [address] [place] [address] [facility] [place] [address] [place] [address] Referral ID Status Reason Start Date Expiration Date V isits Requested Visits Authorized [id number] Closed STL CTS 02/15/2020 03/17/2021 1 1 Encounter Details Date Type Department Care Team (Late st Contact Info) Description 02/21/2020 12:50 PM MACHINE LOAD CLERK - 02/21/2020 11:59 PM MACHINE LOAD CLERK Hospital Encounter [facility] [place] [address] [place] [address] Almita Smallwood MD [address] [place] [address] Discharge Disposition: Home or Self [...] COVID-19? No / Unsure 02/21/2020 9:18 AM MACHINE LOAD CLERK documented as of this encounter Medications at [...] OR WO CAD Routine 02/21/2020 1:07 PM MACHINE LOAD CLERK Encounter for screening mammogram for malignant neoplasm of breast History of ductal carcinoma in situ (DCIS) of breast documented in this encounter Results * MAMMO SCRN BILAT 3D RUTH W OR WO CAD (02/21/2020 1:07 PM MACHINE LOAD CLERK) Anatomical Region Laterality Modality Breast Bilateral Mammography 02/21/2020 1:07 PM MACHINE LOAD CLERK Addenda Addendum by Fiorella Hancock MD on 03/05/2020 7:28 AM MACHINE LOAD CLERK Comparison is now made with previous films from [facility] [place] dated 09/21/2016. There are post biopsy changes on the right. There are postlumpectomy changes in the upper outer left breast. There are no other significant interval changes. Recommend annual follow-up. OVERALL FINAL ASSESSMENT: ??BI-RADS CATEGORY 1: ??Negative. Impressions 02/21/2020 5:08 PM MACHINE LOAD CLERK IMPRESSION: [facility] Radiology will request the patient's previous outside studies in order to assess for stability. An addendum will be provided after reviewing the outside exams. DICTATION LOCATION: [facility] Narrative 02/21/2020 5:08 PM MACHINE LOAD CLERK BILATERAL FULL-FIELD DIGITAL SCREENING MAMMOGRAM WITH CAD [...] Incomplete, needs comparison to prior mammograms. IMPRESSION: [facility] Radiology will request the patient's previous outside studies in order to assess for stability. An addendum will be provided after reviewing the outside exams. DICTATION LOCATION: [facility] Almita Smallwood MD MAMMO ORDERABLES documented in this encounter Visit Diagnoses Diagnosis Encounter for screening mammogram for malignant neoplasm of breast Other screening mammogram History of ductal carcinoma in situ (DCIS) of breast documented in this encounter Additional Health Concerns Assessment Noted Time PHQ-9 Depression Total Score: 2 02/15/20 20 3:00 PM CDT documented as of this encounter Care Teams Chemical Supervisor Relationship Specialty Start Date End Date Almita Smallwood MD [address] [place] [address] PCP - General Internal Medicine 03/14/18 documented as of this encounter
--- OUTSIDE RECORDS SUMMARY | 2024-04-21 21:36 | XMS_ITS | Encounter Summary ---
Author Organization [facility] Address [address] [place] [address] Care Team Providers Care Sas Sql Developer Name Role Phone Almita Smallwood MD Primary Care Provider + Reason for Visit * Reason Onset Date Comments Information 02/25/2020 Encounter Details Date Type Department Care Team ([facility] st Contact Info) Description 02/25/2020 Telephone [facility] Internal Medicine - [facility] [address] [place] [address] Almita Smallwood MD [address] [place] [address] Information Social History Tobacco Use [...] COVID-19? No / Unsure 02/21/2020 9:18 AM HEALTH SAFETY INSTRUCTOR documented as of this encounter Miscellaneous Notes * Telephone Encounter - Christin Leary RN - 02/25/2020 12:24 PM CST ----- Message from Almita Smallwood MD sent at 02/22/2020 3:37 PM HEALTH SAFETY INSTRUCTOR ----- Please call patient with following results. Mammogram incomplete, need prior imaging to compare. Please help arrange for prior films to be madeavailable for radiologist to compare. [facility] has requested prior films.Dr Smallwood aware. TH SAFETY INSTRUCTOR documented in this encounter Plan of Treatment Not on file documented as of this encounter Visit Diagnoses Not on filedocumented in this encounter Additional Health Concerns Assessment Noted Time PHQ-9 Depression Total Score: 2 02/15/20 20 3:00 PM CDT documented as of this encounter Care Teams Sas Sql Developer Relationship Specialty Start Date End Date Almita Smallwood MD [address] [place] [address] PCP - General Internal Medicine 03/14/18 documented as of this encounter
--- OUTSIDE RECORDS SUMMARY | 2024-04-21 21:36 | XMS_ITS | Encounter Summary ---
Author Organization [facility] Address [address] [place] [address] Care Team Providers Care Flaring Machine Operator Name Role Phone Almita Smallwood MD Primary Care Provider + Reason for Visit * Reason Onset Date Comments Results 07/07/2020 Encounter Details Date Type Department Care Team (Late st Contact Info) Description 07/07/2020 Telephone [facility] EAR, NOSE AND THROAT [facility] [address] [facility] [address] [place] [address] Jorge Luis Black MD [address] [facility] [place] [address] Results Social History Tobacco Use [...] documented as of this encounter Care Teams Flaring Machine Operator Relationship Specialty Start Date End Date Almita Smallwood MD [address] [place] [address] PCP - General Internal Medicine 03/14/18 documented as of this encounter
--- OUTSIDE RECORDS SUMMARY | 2024-04-21 21:36 | XMS_ITS | Encounter Summary ---
Author Organization [facility] Address [address] [facility] Attn: [place] [address] Care Team Providers Care Concession Attendant Name Role Phone Almita Smallwood MD [...] on filedocumented in this encounter Care Teams Concession Attendant Relationship Specialty Start Date End Date Almita Smallwood MD [address] [place] [address] PCP - General Internal Medicine 03/14/18 documented as of this encounter
--- OUTSIDE RECORDS SUMMARY | 2024-04-21 21:36 | XMS_ITS | Encounter Summary ---
Author Organization [facility] Address [address] [place] [address] Care Team Providers Care Central Office Trouble Shooter Name Role Phone Almita Smallwood MD Primary Care Provider + Reason for Visit * Reason Onset Date Comments Information 02/07/2020 Encounter Details Date Type Department Care Team ([facility] st Contact Info) Description 02/07/2020 Telephone [facility] Internal Medicine - [place] [id number] [place] [address] Almita Smallwood MD [address] [place] [address] Information Social History Tobacco Use [...] is fine with me to refer to [facility] I don't have any openings as I [...] is fine with me to refer to [facility] I don't have any openings as I am essentially gone tomorrow and Jennifer is out too. May need to see ENT on urgent basis ----- Message ----- From: Christin Leary RN Sent: 02/07/2020 12:28 PM CDT To: Almita Smallwood MD Subject: FW: Visit Follow-Up Question ----- Message ----- From: Lisa Hermosillo Sent: 02/07/2020 12:17 PM CDT To: [facility] Nurse Subject: Visit Follow-Up Question Talon, I [...] a referral? I have new insurance with [employer] [facility]. Member ID is [id number]. Group No. [id number]. documented in this encounter Plan of Treatment Not on file documented as of this encounter Visit Diagnoses Not on filedocumented in this encounter Care Teams Central Office Trouble Shooter Relationship Specialty Start Date End Date Almita Smallwood MD [address] [place] [address] PCP - General Internal Medicine 03/14/18 documented as of this encounter
--- OUTSIDE RECORDS SUMMARY | 2024-04-21 21:36 | XMS_ITS | Encounter Summary ---
Author Organization [facility] Address [address] [facility] Attn: [place] [address] Care Team Providers Care Beef Specialist Name Role Phone Almita Smallwood MD [...] COVID-19? No / Unsure 06/20/2020 1:52 PM HIGH SCHOOL ACADEMIC COACH documented as of this encounter Plan of Treatment Not on file documented as of this encounter Visit Diagnoses Not on filedocumented in this encounter Additional Health Concerns Assessment Noted Time PHQ-9 Depression Total Score: 2 02/15/20 20 3:00 PM CDT documented as of this encounter Care Teams Beef Specialist Relationship Specialty Start Date End Date Almita Smallwood MD [address] [place] [address] PCP - General Internal Medicine 03/14/18 documented as of this encounter
--- OUTSIDE RECORDS SUMMARY | 2024-04-21 21:36 | XMS_ITS | Encounter Summary ---
Author Organization [facility] Address [address] [facility] Attn: [place] [address] Care Team Providers Care Bow Repairer Custom Name Role Phone Almita Smallwood MD Primary [...] COVID-19? No / Unsure 05/23/2020 7:54 AM HELP DESK SUPERVISOR documented as of this encounter Plan of Treatment Not on file documented as of this encounter Visit Diagnoses Not on filedocumented in this encounter Additional Health Concerns Assessment Noted Time PHQ-9 Depression Total Score: 2 02/15/20 20 3:00 PM CDT documented as of this encounter Care Teams Bow Repairer Custom Relationship Specialty Start Date End Date Almita Smallwood MD [address] [place] [address] PCP - General Internal Medicine 03/14/18 documented as of this encounter
--- OUTSIDE RECORDS SUMMARY | 2024-04-21 21:36 | XMS_ITS | Encounter Summary ---
Author Organization [facility] Address [address] [place] [address] Care Team Providers Care Submarine Element Coordinator Name Role Phone Almita Smallwood MD Primary Care Provider + Reason for Visit * Reason Onset Date Comments Result Note 02/22/2020 Encounter Details Date Type Department Care Team ([facility] st Contact Info) Description 02/22/2020 Telephone [facility] Internal Medicine - [facility] [address] [place] [address] Almita Smallwood MD [address] [place] [address] Result Note Social History Tobacco [...] COVID-19? No / Unsure 02/21/2020 9:[address] SQL DEVELOPER documented as of this encounter Miscellaneous Notes * Telephone Encounter - Aarti De La Fuente - 02/22/2020 4:00 PM CST Spoke with patient, she will reach out to get her prior films sent to the [facility] radiologist. She verbalized understanding and had no questions at this time. SQL DEVELOPER * Telephone Encounter - Aarti De La Fuente - 02/22/2020 3:57 PM CST ----- Message from Almita Smallwood MD sent at 02/22/2020 3:[address] SQL DEVELOPER ----- Please call patient with following results. Mammogram incomplete, need prior imaging to compare. Please help arrange for prior films to be madeavailable for radiologist to compare. SQL DEVELOPER documented in this encounter Plan of Treatment Not on file documented as of this encounter Visit Diagnoses Not on filedocumented in this encounter Additional Health Concerns Assessment Noted Time PHQ-9 Depression Total Score: 2 02/15/20 20 3:00 PM CDT documented as of this encounter Care Teams Submarine Element Coordinator Relationship Specialty Start Date End Date Almita Smallwood MD [address] [place] [address] PCP - General Internal Medicine 03/14/18 documented as of this encounter
--- OUTSIDE RECORDS SUMMARY | 2024-04-21 21:36 | XMS_ITS | Encounter Summary ---
Author Organization [facility] Address [address] [facility] Attn: [place] [address] Care Team Providers Care Cleat Maker Name Role Phone Almita Smallwood MD [...] COVID-19? No / Unsure 05/29/2020 10:49 AM STENCIL TYPIST documented as of this encounter Plan of Treatment Not on file documented as of this encounter Visit Diagnoses Not on filedocumented in this encounter Additional Health Concerns Assessment Noted Time PHQ-9 Depression Total Score: 2 02/15/20 20 3:00 PM CDT documented as of this encounter Care Teams Cleat Maker Relationship Specialty Start Date End Date Almita Smallwood MD [address] [place] [address] PCP - General Internal Medicine 03/14/18 documented as of this encounter
--- OUTSIDE RECORDS SUMMARY | 2024-04-21 21:36 | XMS_ITS | Encounter Summary ---
Author Organization [facility] Address [address] [facility] Attn: [place] [address] Care Team Providers Care Brewery Cellar Worker Name Role Phone Almita Smallwood MD [...] COVID-19? No / Unsure 04/16/2020 12:43 PM POPPED CORN OVEN ATTENDANT documented as of this encounter Plan of Treatment Not on file documented as of this encounter Visit Diagnoses Not on filedocumented in this encounter Additional Health Concerns Assessment Noted Time PHQ-9 Depression Total Score: 2 02/15/20 20 3:00 PM CDT documented as of this encounter Care Teams Brewery Cellar Worker Relationship Specialty Start Date End Date Almita Smallwood MD [address] [place] [address] PCP - General Internal Medicine 03/14/18 documented as of this encounter
--- OUTSIDE RECORDS SUMMARY | 2024-04-21 21:36 | XMS_ITS | Encounter Summary ---
Author Organization [facility] Address [address] [facility] Attn: [place] [address] Care Team Providers Care Acquisition Analyst Name Role Phone Almita Smallwood MD [...] documented as of this encounter Care Teams Acquisition Analyst Relationship Specialty Start Date End Date Almita Smallwood MD [address] [place] [address] PCP - General Internal Medicine 03/14/18 documented as of this encounter
--- OUTSIDE RECORDS SUMMARY | 2024-04-21 21:36 | XMS_ITS | Encounter Summary ---
Author Organization [facility] Address [address] [place] [address] Care Team Providers Care Telegraph Repeater Technician Name Role Phone Almita Smallwood MD Primary Care Provider + Reason for Referral * CT Scan (Routine) - Closed Specialty Diagnoses / Procedures Referred By Contac t Referred To Contact Radiology Diagnoses Chronic pansinusitis Procedures CT SINUS FACIAL BONES WO CONTRAST Jorge Luis Black MD [address] [facility]. [facility] [address] [place] [address] [facility] [address] Scan [address] [place] [address] Referral ID Status Reason Start Date Expiration Date V isits Requested Visits Authorized [id number] Closed STL CTS 06/26/2020 07/25/2020 1 1 R COVERING INSTALLER Reason for Visit * Reason Comments Sinusitis Encounter Details Date Type Department Care Team (Late st Contact Info) Description 06/20/2020 2:15 PM FLOOR COVERING INSTALLER Office Visit [facility] EAR, NOSE AND THROAT [facility] [address] [facility] [address] [place] [address] Jorge Luis Black MD [address] [facility]. [facility] [address] [place] [address] Seasonal allergic rhinitis, unspecified trigger [...] COVID-19? No / Unsure 06/20/2020 1:52 PM FLOOR COVERING INSTALLER documented as of this encounter Progress [...] to Visit Medication Sig Dispense Refill ??? cyfcfgbxjox-xkckqnxpcara-lnhcbkyqnp (TRELEGY ELLIPTA) 100-62.5-25 mcg Disk with Device [...] ipratropium bromide (ATROVENT) 42 mcg (0.06 %) [place], Non-Aerosol USE 1 TO 2 SPRAY(S) IN [...] CONTRAST ??? montelukast (Singulair) 10 mg tablet R COVERING INSTALLER documented in this encounter Plan of [...] of Iterative Reconstruction Technique. DICTATION LOCATION: Location [address] [place] [address] 07/03/2020 2:50 PM CDT EXAM: CT SINUSES [...] Iterative Reconstruction Technique. DICTATION LOCATION: Location - [facility] Jorge Luis Black MD CT ORDERABLES documented in this encounter Visit Diagnoses Diagnosis Seasonal allergic rhinitis, unspecified trigger- Primary Chronic pansinusitis Other chronic sinusitis Chronic pansinusitis Other chronic sinusitis documented in this encounter Additional Health Concerns Assessment Noted Time PHQ-9 Depression Total Score: 2 02/15/20 20 3:00 PM CDT documented as of this encounter Care Teams Telegraph Repeater Technician Relationship Specialty Start Date End Date Almita Smallwood MD [address] [place] [address] PCP - General Internal Medicine 03/14/18 documented as of this encounter
--- OUTSIDE RECORDS SUMMARY | 2024-04-21 21:36 | XMS_ITS | Encounter Summary ---
Author Organization [facility] Address [address] [place] [address] Care Team Providers Care Insurance Processor Name Role Phone Almita Smallwood MD Primary Care Provider + Reason for Referral * Radiology Services (Routine) - Closed Specialty Diagnoses / Procedures Referred By Tati campos Referred To Contact Radiology Diagnoses Liver hemangioma Procedures US ABDOMEN LIMITED US ABDOMEN COMPLETE Almita Smallwood MD [address] [place] [address] [facility] [[email or web address] Ultrasound [address] [place] [address] Referral ID Status Reason Start Date Expiration Date V isits Requested Visits Authorized [id number] Closed STL CTS 02/22/2020 03/24/2021 1 1 D MARKETING SPECIALIST Reason for Visit * Reason Onset Date Comments Results 02/22/2020 Encounter Details Date Type Department Care Team (Late st Contact Info) Description 02/22/[address] [facility] Internal Medicine - [facility] [address] [place] [address] Almita Smallwood MD [address] [place] [address] Results Social History Tobacco Use [...] COVID-19? No / Unsure 02/21/2020 9:18 AM FIELD MARKETING SPECIALIST documented as of this encounter Miscellaneous Notes * Telephone Encounter - Christin Leary RN - 02/22/2020 3:08 PM CST Please prescribe both Xyzal (in case she can't find it) and azelastine nasal spray E-prescribed scripts to Pharmacy per Dr Smallwood's orders.Pt aware.Dr Smallwood aware. D MARKETING SPECIALIST * Telephone Encounter - Christin Leary RN - 02/22/2020 3:08 PM CST ----- Message from Almita Smallwood MD sent at 02/22/2020 3:04 PM FIELD MARKETING SPECIALIST ----- Regarding: RE: Visit Follow-Up Question Contact: Please prescribe both Xyzal (in case she can't find it) and azelastine nasal spray ----- Message ----- From: Christin eLary RN Sent: 02/22/2020 2:57 PM FIELD MARKETING SPECIALIST To: Almita Smallwood MD Subject: FW: Visit Follow-Up Question ----- Message ----- From: Lisa Hermosillo Sent: 02/22/2020 2:51 PM FIELD MARKETING SPECIALIST To: [facility] Nurse Subject: RE: Visit Follow-Up Question Can we try the prescription nose spray, please? The stuff that the [facility] doctor prescribed seemsreally harsh and does very little to help. Xyzal OTC is over the counter, I am presuming so I will get some of that to try. Thanks a bunch! D MARKETING SPECIALIST * Telephone Encounter - Christin Leary RN - 02/22/2020 2:48 PM CST ----- Message from Almita Smallwood MD sent at 02/21/2020 5:23 PM FIELD MARKETING SPECIALIST ----- Please call patient with following results. [...] the above results.Order placed and pt aware [facility] will schedule US of abd.Pt verbalizes understanding.Danielle aware. D MARKETING SPECIALIST documented in this encounter Plan of Treatment Not on file documented as of this encounter Results * US ABDOMEN LIMITED (03/08/2020 9:52 AM FIELD MARKETING SPECIALIST) Anatomical Region Laterality Modality Abdomen Ultrasound 03/08/2020 9:53 AM FIELD MARKETING SPECIALIST Impressions 03/08/2020 10:12 AM FIELD MARKETING SPECIALIST IMPRESSION: 1. ??Hemangioma within the lateral segment. DICTATION LOCATION: Location 2 - [facility] Narrative 03/08/2020 10:12 AM FIELD MARKETING SPECIALIST US ABDOMEN LIMITED DATE: 03/08/2020 9:52 AM [...] the lateral segment. DICTATION LOCATION: Location 2 [facility] Almita Smallwood MD ORDERABLES documented in this encounter Visit Diagnoses Diagnosis Liver hemangioma- Primary Hemangioma of intra-abdominal structures Liver hemangioma Hemangioma of intra-abdominal structures documented in this encounter Additional Health Concerns Assessment Noted Time PHQ-9 Depression Total Score: 2 02/14/ 20 3:00 PM CDT documented as of this encounter Care Teams Insurance Processor Relationship Specialty Start Date End Date Almita Smallwood MD [address] [place] [address] PCP - General Internal Medicine 03/14/18 documented as of this encounter
--- OUTSIDE RECORDS SUMMARY | 2024-04-21 21:36 | XMS_ITS | Encounter Summary ---
Author Organization [facility] Address [address] [place] [address] Care Team Providers Care Transmitter Operator Name Role Phone Almita Smallwood MD Primary Care Provider + Reason for Referral * CT Scan (Routine) - Closed Specialty Diagnoses / Procedures Referred By Tati campos Referred To Contact Radiology Diagnoses Chronic pansinusitis Procedures CT SINUS FACIAL BONES WO CONTRAST Jorge Luis Black MD [address] [facility] [address] [place] [address] Scan [address] [place] [address] Referral ID Status Reason Start Date Expiration Date V isits Requested Visits Authorized [id number] Closed STL CTS 06/26/2020 07/25/2020 1 1 Reason for Visit * CT Scan (Routine) - Closed Specialty Diagnoses / Procedures Referred By Tati campos Referred To Contact Radiology Diagnoses Chronic pansinusitis Procedures CT SINUS FACIAL BONES WO Jorge Luis Bustillos MD [address] [place] [address] [place] [address] Scan [address] [place] [address] Referral ID Status Reason Start Date Expiration Date V isits Requested Visits Authorized [id number] Closed STL CTS 06/26/2020 07/25/2020 1 1 Encounter Details Date Type Department Care Team (Latest Contact Info) Description 07/03/2020 11:56 AM CDT - 07/03/2020 11:59 PM CDT Hospital Encounter [facility] [address] [place] [address] Jorge Luis Black MD [address] [place] [address] [place] [address] Discharge Disposition: Home or Self [...] of Iterative Reconstruction Technique. DICTATION LOCATION: Location [address] [place] [address] Narrative 07/03/2020 2:50 PM CDT EXAM: CT [...] of Iterative Reconstruction Technique. DICTATION LOCATION: Location [address] [place] [address] [address] ORDERABLES documented in this encounter Visit Diagnoses Diagnosis Chronic pansinusitis Other chronic sinusitis documented in this encounter Additional Health Concerns Assessment Noted Time PHQ-9 Depression Total Score: 2 02/15/20 20 3:00 PM CDT documented as of this encounter Care Teams Transmitter Operator Relationship Specialty Start Date End Date Almita Smallwood MD [address] [place] [address] PCP - General Internal Medicine 03/14/18 documented as of this encounter
--- OUTSIDE RECORDS SUMMARY | 2024-04-21 21:36 | XMS_ITS | Encounter Summary ---
Author Organization [facility] Address [address] [place] [address] Care Team Providers Care Supervisor Bonding Name Role Phone Almita Smallwood MD Primary Care Provider + Reason for Visit * Reason Onset Date Comments Results 03/05/2020 Encounter Details Date Type Department Care Team ([facility] Contact Info) Description 03/05/2020 Telephone [facility] Internal Medicine [facility] [address] [place] [address] Almita Smallwood MD [address] [place] [address] Results Social History Tobacco Use [...] COVID-19? No / Unsure 02/28/2020 7:54 AM CASE HARDENER documented as of this encounter Miscellaneous Notes * Telephone Encounter - Elena Poe - 03/05/2020 8:50 AM CST Left message on pt's voicemail requesting call back for results, normal result letter mailed to pt's home HARDENER * Telephone Encounter - Elena Poe - 03/05/2020 8:46 AM CST ----- Message from Almita Smallwood MD sent at 03/05/2020 8:07 AM CASE HARDENER ----- Please call patient with following results. Mammogram normal, repeat in one year. HARDENER documented in this encounter Plan of Treatment Not on file documented as of this encounter Visit Diagnoses Not on filedocumented in this encounter Additional Health Concerns Assessment Noted Time PHQ-9 Depression Total Score: 2 02/15/20 20 3:00 PM CDT documented as of this encounter Care Teams Supervisor Bonding Relationship Specialty Start Date End Date Almita Smallwood MD [address] [place] [address] PCP - General Internal Medicine 03/14/18 documented as of this encounter
--- OUTSIDE RECORDS SUMMARY | 2024-04-21 21:36 | XMS_ITS | Encounter Summary ---
Author Organization [facility] Address [address] [place] [address] Care Team Providers Care Integrated Circuits Inspector Name Role Phone Almita Smallwood MD Primary Care Provider + Encounter Details Date Type Department Care Team (Late st Contact Info) Description 04/16/2020 Orders Only [facility] Pulmonology [facility] [address] [place] [address] Tom Luo MD [address] [place] [address] Social History Tobacco Use Types [...] COVID-19? No / Unsure 04/17/2020 1:22 PM BALLAST INSPECTOR documented as of this encounter Plan of Treatment Not on file documented as of this encounter Visit Diagnoses Not on filedocumented in this encounter Additional Health Concerns Assessment Noted Time PHQ-9 Depression Total Score: 2 02/15/20 20 3:00 PM CDT documented as of this encounter Care Teams Integrated Circuits Inspector Relationship Specialty Start Date End Date Almita Smallwood MD [address] [place] [address] PCP - General Internal Medicine 03/14/18 documented as of this encounter
--- OUTSIDE RECORDS SUMMARY | 2024-04-21 21:36 | XMS_ITS | Encounter Summary ---
Author Organization [facility] Address [address] [facility] Attn: [place] [address] Care Team Providers Care Oil Well Service Operator Name Role Phone Almita Smallwood MD [...] COVID-19? No / Unsure 03/08/2020 8:45 AM MANAGER GENERAL documented as of this encounter Plan of Treatment Not on file documented as of this encounter Visit Diagnoses Not on filedocumented in this encounter Additional Health Concerns Assessment Noted Time PHQ-9 Depression Total Score: 2 02/15/20 20 3:00 PM CDT documented as of this encounter Care Teams Oil Well Service Operator Relationship Specialty Start Date End Date Almita Smallwood MD [address] [place] [address] PCP - General Internal Medicine 03/14/18 documented as of this encounter
--- OUTSIDE RECORDS SUMMARY | 2024-04-21 21:36 | XMS_ITS | Encounter Summary ---
Author Organization [facility] Address [address] [place] [address] Care Team Providers Care Clerical Administrator Name Role Phone Almita Smallwood MD Primary Care Provider + Reason for Referral * Radiology Services (Routine) - Closed Specialty Diagnoses / Procedures Referred By Tati campos Referred To Contact Radiology Diagnoses Liver hemangioma Procedures US ABDOMEN LIMITED US ABDOMEN COMPLETE Almita Smallwood MD [address] [place] [address] [facility] [address] [place] [address] Referral ID Status Reason Start Date Expiration Date V isits Requested Visits Authorized [id number] Closed STL CTS 02/22/2020 03/24/2021 1 1 [place] SALES ASSOCIATE SEASONAL Reason for Visit * Radiology Services (Routine) - Closed Specialty Diagnoses / Procedures Referred By Contac andres Referred To Contact Radiology Diagnoses Liver hemangioma Procedures US ABDOMEN LIMITED US ABDOMEN COMPLETE Almita Smallwood MD [address] [place] [address] [facility] [address] [place] [address] Referral ID Status Reason Start Date Expiration Date V isits Requested Visits Authorized [id number] Closed STL CTS 02/22/2020 03/24/2021 1 1 Encounter Details Date Type Department Care Team (Late st Contact Info) Description 03/08/2020 8:50 AM RETAIL SALES ASSOCIATE SEASONAL - 03/08/2020 11:59 PM RETAIL SALES ASSOCIATE SEASONAL Hospital Encounter [facility] [address] [place] [address] Almita Smallwood MD [address] [place] [address] Discharge Disposition: Home or [...] COVID-19? No / Unsure 03/08/2020 8:45 AM RETAIL SALES ASSOCIATE SEASONAL documented as of this encounter Medications at [...] Almita Smallwood MD - 03/08/2020 9:00 AM RETAIL SALES ASSOCIATE SEASONAL Please call patient with following results. US shows benign hemangioma. No further evaluation necessary. [place] SALES ASSOCIATE SEASONAL documented in this encounter Plan of Treatment Not on file documented as of this encounter Procedures Procedure Name Priority Date/Time Associated Diagnosis Comments US ABDOMEN LIMITED Routine 03/08/2020 9: 52 AM RETAIL SALES ASSOCIATE SEASONAL Liver hemangioma documented in this encounter Results * US ABDOMEN LIMITED (03/08/2020 9:52 AM RETAIL SALES ASSOCIATE SEASONAL) Anatomical Region Laterality Modality Abdomen Ultrasound 03/08/2020 9:53 AM RETAIL SALES ASSOCIATE SEASONAL Impressions 03/08/2020 10:12 AM RETAIL SALES ASSOCIATE SEASONAL IMPRESSION: 1. ??Hemangioma within the lateral segment. DICTATION LOCATION: [address] Narrative 03/08/2020 10:12 AM RETAIL SALES ASSOCIATE SEASONAL US ABDOMEN LIMITED DATE: 03/08/2020 9:52 AM [...] Hemangioma within the lateral segment. DICTATION LOCATION: [address] Almita Smallwood MD US ORDERABLES documented in this encounter Visit Diagnoses Diagnosis Liver hemangioma Hemangioma of intra-abdominal structures documented in this encounter Additional Health Concerns Assessment Noted Time PHQ-9 Depression Total Score: 2 02/15/20 20 3:00 PM CDT documented as of this encounter Care Teams Clerical Administrator Relationship Specialty Start Date End Date Almita Smallwood MD [address] [place] [address] PCP - General Internal Medicine 03/14/18 documented as of this encounter
--- OUTSIDE RECORDS SUMMARY | 2024-04-21 21:36 | XMS_ITS | Encounter Summary ---
Author Organization [facility] Address [address] [place] [address] Care Team Providers Care Mfts Name Role Phone Almita Smallwood MD Primary Care Provider + Reason for Visit * Reason Onset Date Comments Results 02/18/2020 Encounter Details Date Type Department Care Team ([facility] st Contact Info) Description 02/18/2020 Telephone [facility] ONCOLOGY AND HEMATOLOGY-[address] [address] Almita Smallwood MD [address] [place] [address] Results Social History Tobacco Use [...] CST LM to call office for results NCIAL SPECIALIST * Telephone Encounter - Bev Acosta RN - 02/18/2020 1:28 PM CST ----- Message from Almita Smallwood MD sent at 02/18/2020 12:55 PM FINANCIAL SPECIALIST ----- Please call patient with following [...] work to explain symptoms, will await imaging NCIAL SPECIALIST documented in this encounter Plan of Treatment Not on file documented as of this encounter Visit Diagnoses Not on filedocumented in this encounter Additional Health Concerns Assessment Noted Time PHQ-9 Depression Total Score: 2 02/15/20 20 3:00 PM CDT documented as of this encounter Care Teams Mfts Relationship Specialty Start Date End Date Almita Smallwood MD [address] [place] [address] PCP - General Internal Medicine 03/14/18 documented as of this encounter
--- OUTSIDE RECORDS SUMMARY | 2024-04-21 21:37 | XMS_ITS | Encounter Summary ---
Author Organization [facility] [employer] [facility] Address [address] [place] [address] Care Team Providers Care Medical Review Specialist Name Role Phone Almita Smallwood MD Primary Care Provider + Encounter Details Date Type Department Care Team (Late st Contact Info) Description 03/22/2019 Orders Only [facility] Oncology and Hematology - [place] [address] [facility] [address] [place] [address] Jacek Laura MD [address] [facility] [address] [place] [address] Ductal carcinoma in situ (DCIS) [...] Blood Jacek Laura MD CHEMISTRY ORDERABLES NON [facility] * IRON, TIBC, AND PERCENT SATURATION (03/22/2019) Blood Jacek Laura MD CHEMISTRY ORDERABLES NON [facility] documented in this encounter Visit Diagnoses Diagnosis 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 breast Mild anemia Anemia, unspecified documented in this encounter Care Teams Medical Review Specialist Relationship Specialty Start Date End Date Almita Smallwood MD [address] [place] [address] PCP - General Internal Medicine 03/14/18 documented as of this encounter
--- OUTSIDE RECORDS SUMMARY | 2024-04-21 21:37 | XMS_ITS | Encounter Summary ---
Author Organization [facility] Address [address] [place] [address] Care Team Providers Care Fishing Tool Supervisor Name Role Phone Almita Smallwood MD [...] on filedocumented in this encounter Care Teams Fishing Tool Supervisor Relationship Specialty Start Date End Date Almita Smallwood MD [address] [place] [address] PCP - General Internal Medicine 03/14/18 documented as of this encounter
--- OUTSIDE RECORDS SUMMARY | 2024-04-21 21:37 | XMS_ITS | Encounter Summary ---
Author Organization [facility] Aggarwal [facility] Address [address] [place] [address] Care Team Providers Care Hand Cementer Name Role Phone Almita Smallwood MD Primary Care Provider + Reason for Visit * Reason Onset Date Comments Information 08/01/2019 Encounter Details Date Type Department Care Team (Late st Contact Info) Description 08/01/2019 Telephone [facility] Oncology and Hematology - [place] [address] [facility] [address] [place] [address] Jacek Laura MD [address] [facility] [address] [place] [address] Information Social History Tobacco Use [...] on filedocumented in this encounter Care Teams Hand Cementer Relationship Specialty Start Date End Date Almita Smallwood MD [address] [place] [address] PCP - General Internal Medicine 03/14/18 documented as of this encounter
--- OUTSIDE RECORDS SUMMARY | 2024-04-21 21:37 | XMS_ITS | Encounter Summary ---
Author Organization [facility] Address [address] [place] [address] Care Team Providers Care General Neurologist Name Role Phone Almita Smallwood MD Primary Care Provider + Reason for Visit * Reason Comments Follow Up Encounter Details Date Type Department Care Team ([facility] Contact Info) Description 06/21/2018 9:30 AM AIR HOIST OPERATOR Office Visit [facility] Oncology and Hematology - [place] [address] [facility] [address] [place] [address] Jacek Laura MD [address] [facility] [address] [place] [address] Ductal carcinoma in situ (DCIS) [...] Comments Blood Pressure 110/66 06/21/2018 9:42 AM AIR HOIST OPERATOR Pulse 64 06/21/2018 9:42 AM AIR HOIST OPERATOR Temperature 36.8 ??C (98.2 ??F) 06/21/2018 9:42 AM CS T Respiratory Rate - - Oxygen Saturation 98% 06/21/2018 9:42 AM AIR HOIST OPERATOR Inhaled Oxygen Concentration - - Weight 66.7 kg (147 lb) 06/21/2018 9:42 AM AIR HOIST OPERATOR Height 167.6 cm (5' 6 ) 06/21/2018 9:42 AM AIR HOIST OPERATOR Body Mass Index 23.73 06/21/2018 9:42 AM AIR HOIST OPERATOR documented in this encounter Progress Notes [...] partial mastectomy done on November 22, 2016 ER/OK strongly positive. Oncotype DX for DCIS showed [...] too much. ? 06/21/2018 Jacek Laura MD HOIST OPERATOR documented in this encounter Plan of [...] Depression Total Score: 1 03/14/20 3:00 PM AIR HOIST OPERATOR documented as of this encounter Care Teams General Neurologist Relationship Specialty Start Date End Date Almita Smallwood MD [address] [place] [address] PCP - General Internal Medicine 03/14/18 documented as of this encounter
--- OUTSIDE RECORDS SUMMARY | 2024-04-21 21:37 | XMS_ITS | Encounter Summary ---
Author Organization [facility] Address [address] [place] [address] Care Team Providers Care Motorcycle Builder Name Role Phone Almita Smallwood MD Primary Care Provider + Reason for Visit * Reason Onset Date Comments preoperative call 11/05/2018 Encounter Details Date Type Department Care Team (Late st Contact Info) Description 11/05/2018 Telephone [facility] BREAST SURGERY [address] [place] [address] Laverne Thorpe DO NO ADDRESS [...] Total Score: 1 03/14/20 18 3:00 PM FEATHERER documented as of this encounter Care Teams Motorcycle Builder Relationship Specialty Start Date End Date Almita Smallwood MD [address] [place] [address] PCP - General Internal Medicine 03/14/18 documented as of this encounter
--- OUTSIDE RECORDS SUMMARY | 2024-04-21 21:37 | XMS_ITS | Encounter Summary ---
Author Organization [facility] Address [address] [place] [address] Care Team Providers Care Business Database Analyst Name Role Phone Almita Smallwood MD Primary Care Provider + Reason for Visit * Reason Comments Medication Refill Encounter Details Date Type Department Care Team ([facility] st Contact Info) Description 05/25/2018 Refill [facility] Oncology and Hematology - [place] [address] [facility] [address] [place] [address] Jacek Laura MD [address] [facility] [address] [place] [address] Social History Tobacco Use Types [...] Total Score: 1 03/14/20 18 3:00 PM FIBER OPTICS SUPERVISOR documented as of this encounter Care Teams Business Database Analyst Relationship Specialty Start Date End Date Almita Smallwood MD [address] [place] [address] PCP - General Internal Medicine 03/14/18 documented as of this encounter
--- OUTSIDE RECORDS SUMMARY | 2024-04-21 21:37 | XMS_ITS | Encounter Summary ---
Author Organization [facility] Address [address] [place] [address] Care Team Providers Care Medical Orderly Name Role Phone Almita Smallwood MD Primary Care Provider + Reason for Visit * Reason Comments Follow Up Encounter Details Date Type Department Care Team ([facility] st Contact Info) Description 12/05/2018 3:40 PM CDT Office Visit [facility] Internal Medicine [address] [address] Almita Smallwood MD [address] [place] [address] Normal routine physical examination (Primary [...] follow up. Had lymph node biopsy through [facility]. 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 Has been eye opening and mildly stressful [...] not a tobacco user. Almita Smallwood MD [facility] Internal Medicine- [facility] documented in this encounter Miscellaneous Notes * Patient Instructions - Almita Smallwood MD - 12/05/2018 4:37 PM CDT Images from the original note were not included. [employer] Iliotibial Band Syndrome: Exercises Introduction Here [...] Where can you learn more? Go to https://www.Screenleap.net/patientEd Enter P252 in the search box to learn more about Iliotibial Band Syndrome: Exercises. Current as of: January 05, 2018 Content Version: 12.1 ?? 5626-7076 [employer]. Care instructions adapted under license by your healthcare professional. If you have questions about a medical condition or this instruction, always ask your healthcare professional. These instructions may not represent the values of this healthcare organization. [employer] disclaims any warranty or liability for your use of this information. [employer]. Iliotibial Band Syndrome: Care Instructions Your Care [...] your doctor if you can take an [id number] medicine. ?? Talk to your doctor or [...] Where can you learn more? Go to https://www.Screenleap.net/patientEd Enter L449 in the search box to learn more about Iliotibial Band Syndrome: Care Instructions. Current as of: January 05, 2018 Content Version: 12.1 ?? 4358-5746 [employer]. Care instructions adapted under license by your healthcare professional. If you have questions about a medical condition or this instruction, always ask your healthcare professional. These instructions may not represent the values of this healthcare organization. [employer] disclaims any warranty or liability for your use of this information. [employer]. Well Visit, Women 50 to 65: Care [...] Where can you learn more? Go to https://www.Screenleap.net/patientEd Enter Y074 in the search box to learn more about Well Visit, Women 50 to 65: Care Instructions. Current as of: March 30, 2018 Content Version: 12.1 ?? 4701-6965 [employer]. Care instructions adapted under license by your healthcare professional. If you have questions about a medical condition or this instruction, always ask your healthcare professional. These instructions may not represent the values of this healthcare organization. 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
--- OUTSIDE RECORDS SUMMARY | 2024-04-21 21:37 | XMS_ITS | Encounter Summary ---
Author Organization [facility] Address [address] [place] [address] Care Team Providers Care Rigging Man Name Role Phone Almita Smallwood MD Primary Care Provider + Encounter Details Date Type Department Care Team (Late st Contact Info) Description 11/20/2018 Orders Only [facility] BREAST SURGERY [address] [facility] [address] [place] [address] Provider, Abstract NO ADDRESS ON [...] Total Score: 1 03/14/20 18 3:00 PM MEETING MANAGER documented as of this encounter Care Teams Rigging Man Relationship Specialty Start Date End Date Almita Smallwood MD [address] [place] [address] PCP - General Internal Medicine 03/14/18 documented as of this encounter
--- OUTSIDE RECORDS SUMMARY | 2024-04-21 21:37 | XMS_ITS | Encounter Summary ---
Author Organization [facility] Address [address] [place] [address] Care Team Providers Care Press Feeder Name Role Phone Almita Smallwood MD Primary Care Provider + Encounter Details Date Type Department Care Team (Latest Contact Info) Description 06/21/2018 1:30 PM ROUTER MACHINE OPERATOR - 06/21/2018 11:59 PM ROUTER MACHINE OPERATOR Hospital Encounter [facility] [address] [place] [address] [facility], External Provider [address] [place] [address] Discharge Disposition: Home or Self Care Social [...] PRIOR STUDY Routine 06/21/2018 1:3 0 PM ROUTER MACHINE OPERATOR Follow up documented in this encounter Results * MAMMO PRIOR STUDY (06/21/2018 1:30 PM ROUTER MACHINE OPERATOR) Narrative 03/04/2020 1:30 PM ROUTER MACHINE OPERATOR This exam was auto finalized to allow images to be scanned to PACS. External Provider [facility] DIAGNOSTIC IMAGI NG ORDERABLES documented in this encounter Visit Diagnoses Diagnosis Follow up documented in this encounter Additional Health Concerns Assessment Noted Time PHQ-9 Depression Total Score: 1 03/14/20 18 3:00 PM ROUTER MACHINE OPERATOR documented as of this encounter Care Teams Press Feeder Relationship Specialty Start Date End Date Almita Smallwood MD [address] [place] [address] PCP - General Internal Medicine 03/14/18 documented as of this encounter
--- OUTSIDE RECORDS SUMMARY | 2024-04-21 21:37 | XMS_ITS | Encounter Summary ---
Author Organization [facility] Address [address] [place] [address] Care Team Providers Care Novelty Twister Tender Name Role Phone Almita Smallwood MD [...] on filedocumented in this encounter Care Teams Novelty Twister Tender Relationship Specialty Start Date End Date Almita Smallwood MD [address] [place] [address] PCP - General Internal Medicine 03/14/18 documented as of this encounter
--- OUTSIDE RECORDS SUMMARY | 2024-04-21 21:37 | XMS_ITS | Encounter Summary ---
Author Organization [facility] Address [address] [place] [address] Care Team Providers Care Launch Operator Name Role Phone Almita Smallwood MD Primary Care Provider + Encounter Details Date Type Department Care Team (Late st Contact Info) Description 11/03/2018 Orders Only [facility] BREAST SURGERY [address], [facility] [address] [place] [address] Provider, Abstract NO ADDRESS ON [...] Total Score: 1 03/14/20 18 3:00 PM COAL GASIFICATION TECHNICIAN documented as of this encounter Care Teams Launch Operator Relationship Specialty Start Date End Date Almita Smallwood MD [address] [place] [address] PCP - General Internal Medicine 03/14/18 documented as of this encounter
--- OUTSIDE RECORDS SUMMARY | 2024-04-21 21:37 | XMS_ITS | Encounter Summary ---
Author Organization [facility] Address [address] [place] [address] Care Team Providers Care Rn Family Name Role Phone Almita Smallwood MD Primary Care Provider + Reason for Visit * Reason Comments Follow Up Encounter Details Date Type Department Care Team ([facility] Contact Info) Description 06/21/2018 9:00 AM METAL MOVER Office Visit [facility] BREAST SURGERY L[address], [address] [address] Laverne Thorpe, NO ADDRESS ON [...] Comments Blood Pressure 110/66 06/21/2018 8:57 AM METAL MOVER Pulse 64 06/21/2018 8:57 AM METAL MOVER Temperature 36.8 ??C (98.2 ??F) 06/21/2018 8:57 AM CS T Respiratory Rate - - Oxygen Saturation 98% 06/21/2018 8:57 AM METAL MOVER Inhaled Oxygen Concentration - - Weight 66.8 kg (147 lb 3.2 oz) 06/21/2018 8:57 A M METAL MOVER Height 167.6 cm (5' 6 ) 06/21/2018 8:57 AM METAL MOVER Body Mass Index 23.76 06/21/2018 8:57 AM METAL MOVER documented in this encounter Progress Notes * [...] recent imaging: Bilateral screening mammogram done at [facility] mammography Center on October 21, 2017. [...] Total Score: 1 03/14/20 18 3:00 PM METAL MOVER documented as of this encounter Care Teams Rn Family Relationship Specialty Start Date End Date Almita Smallwood MD [address] [place] [id number] PCP - General Internal Medicine 03/14/18 documented as of this encounter
--- OUTSIDE RECORDS SUMMARY | 2024-04-21 21:37 | XMS_ITS | Encounter Summary ---
Author Organization [facility] Address [address] [place] [address] Care Team Providers Care Patch Sander Name Role Phone Almita Smallwood MD Primary Care Provider + Reason for Visit * Reason Comments Follow Up R US in office Encounter Details Date Type Department Care Team ([facility] st Contact Info) Description 09/29/2018 3:05 PM CDT Office Visit [facility] BREAST SURGERY L[address], [address] [address] Laverne Thorpe, NO ADDRESS ON [...] breast diagnostic mammography was done at [facility] mammography [place]. These images are compared to those of [...] per radiology. Bilateral screening mammogram done at [facility] mammography Center on October 21, [...] Total Score: 1 03/14/20 18 3:00 PM CASTING AND LOCKER ROOM SERVICER documented as of this encounter Care Teams Patch Sander Relationship Specialty Start Date End Date Almita Smallwood MD [address] [place] [address] PCP - General Internal Medicine 03/14/18 documented as of this encounter
--- OUTSIDE RECORDS SUMMARY | 2024-04-21 21:37 | XMS_ITS | Encounter Summary ---
Author Organization [facility] Address [address] [place] [address] Care Team Providers Care Economics Instructor Name Role Phone Almita Smallwood MD Primary Care Provider + Reason for Visit * Reason Comments Follow Up initial post op Encounter Details Date Type Department Care Team (Late st Contact Info) Description 11/14/2018 4:00 PM CDT Office Visit [facility] BREAST SURGERY LING [address], [address] [address] Laverne Thorpe DO NO ADDRESS [...] with and without contrast was done at [facility] on 10/16/2018. Films and reports are reviewed. Bilaterally, there are no suspicious masses nor areas of enhancement. There are no abnormalities of the axillae, chest wall nor nipple areolar complexes. There are postlumpectomy changes in the left upper outer breast. BI-RADS 2 per radiology. 06/21/2018 right breast diagnostic mammography was done at [facility] mammography [place]. These images are compared to those of [...] radiology. ?? Bilateral screening mammogram done at [facility] mammography Center on October 21, 2017. Both [...] Total Score: 1 03/14/20 18 3:00 PM EMPLOYEE'S REPRESENTATIVE documented as of this encounter Care Teams Economics Instructor Relationship Specialty Start Date End Date Almita Smallwood MD [address] [place] [address] PCP - General Internal Medicine 03/14/18 documented as of this encounter
--- OUTSIDE RECORDS SUMMARY | 2024-04-21 21:37 | XMS_ITS | Encounter Summary ---
Author Organization [facility] Address [address] [place] [address] Care Team Providers Care Manager Supply Chain Planning Name Role Phone Almita Smallwood MD Primary Care Provider + Reason for Visit * Reason Comments Follow Up Bx FU/ MRI FU Encounter Details Date Type Department Care Team ([facility] st Contact Info) Description 10/24/2018 2:25 PM CDT Office Visit [facility] BREAST SURGERY L[address], [address] [address] Laverne Thorpe, NO ADDRESS ON [...] with and without contrast was done at [facility] on 10/16/2018. Films and reports are reviewed. Bilaterally, there are no suspicious masses nor areas of enhancement. There are no abnormalities of the axillae, chest wall nor nipple areolar complexes. There are postlumpectomy changes in the left upper outer breast. BI-RADS 2 per radiology. 06/21/2018 right breast diagnostic mammography was done at [facility] mammography center. These images are [...] radiology. ?? Bilateral screening mammogram done at [facility] mammography Center on October 21, [...] Total Score: 1 03/14/20 18 3:00 PM SANDFILL OPERATOR documented as of this encounter Care Teams Manager Supply Chain Planning Relationship Specialty Start Date End Date Almita Smallwood MD [address] [place] [phone] PCP - General Internal Medicine 03/14/18 documented as of this encounter
--- OUTSIDE RECORDS SUMMARY | 2024-04-21 21:37 | XMS_ITS | Encounter Summary ---
Author Organization [facility] Address [address] [place] [address] Care Team Providers Care Pan Shover Name Role Phone Almita Smallwood MD Primary Care Provider + Reason for Referral * Eval and Treat (8-30 Days) - Closed Specialty Diagnoses / Procedures Referred By Tati campos Referred To Contact Gastroenterology Diagnoses Family history of colon cancer requiring screening colonoscopy Screening for colon cancer Almita Smallwood MD [address] [place] [address] Referral ID Status Reason Start Date Expiration Date V isits Requested Visits Authorized [id number] Closed Performing Dept To Review 03/19/2019 03/18/2020 1 1 CLEANER Reason for Visit * Reason Comments Shoulder Pain left, poor range of motion Encounter Details Date Type Department Care Team (Late st Contact Info) Description 03/19/2019 2:20 PM ACID CLEANER Office Visit [facility] Internal Medicine - [facility] [address] [place] [address] Almita Smallwood MD [address] [place] [address] Chronic left shoulder pain (Primary [...] Comments Blood Pressure 124/76 03/19/2019 2:09 PM ACID CLEANER Pulse 83 03/19/2019 2:09 PM ACID CLEANER Temperature 36.8 ??C (98.2 ??F) 03/19/2019 2:09 PM CS T Respiratory Rate 16 03/19/2019 2:09 PM ACID CLEANER Oxygen Saturation 99% 03/19/2019 2:09 PM ACID CLEANER Inhaled Oxygen Concentration - - Weight 65.8 kg (145 lb) 03/19/2019 2:09 PM ACID CLEANER Height 167.6 cm (5' 6 ) 03/19/2019 2:09 PM ACID CLEANER Body Mass Index 23.4 03/19/2019 2:09 PM ACID CLEANER documented in this encounter Progress Notes * [...] of left breast Follows with Oncology at [facility] Given list of acid tank liner to update pap Recent labs reviewed, normal [...] BMI within normal limits Almita Smallwood MD [facility] Internal Medicine- [facility] CLEANER documented in this encounter Miscellaneous Notes * Patient Instructions - Almita Smallwood MD - 03/19/2019 3:08 PM ACID CLEANER Images from the original note were not included. Central Referral Scheduling will be contacting you by phone to schedule your colonoscopy. If you have not received a call within one business day, please call [phone] or , Tuesday through Tuesday between 8 a.m. and 5 p.m. To schedule your appointment. [facility] License Issuer - [place] [address] [place] [address] Drs. Rowland [facility] Women's Health - [address] [facility] [address] [place] [address] Jama Lopez, Al [facility] supermarket manager - [facility] [address] [facility] [address] [address] Dorothy Cyr Parker, Buckley [facility] YOKER - [facility] [id number] [facility] [address] [place] [address] Jenn Bledsoe, Ej, Luz [employer] Shoulder: Exercises Introduction Here are some [...] Where can you learn more? Go to https://www.ulike.net/patientEd Enter J005 in the search box to learn more about Rotator Cuff: Exercises. Current as of: October 11, 2018 Content Version: 12.2 ?? 9333-2016 [employer]. Care instructions adapted under license by your healthcare professional. If you have questions about a medical condition or this instruction, always ask your healthcare professional. These instructions may not represent the values of this healthcare organization. [employer] disclaims any warranty or liability for your use of this information. CLEANER documented in this encounter Plan of Treatment [...] facility documented in this encounter Care Teams Pan Shover Relationship Specialty Start Date End Date Almita Smallwood MD [address] [place] [address] PCP - General Internal Medicine 03/14/18 documented as of this encounter
--- OUTSIDE RECORDS SUMMARY | 2024-04-21 21:37 | XMS_ITS | Encounter Summary ---
Author Organization [facility] Address [address] [place] [address] Care Team Providers Care Web Sizer Name Role Phone Almita Smallwood MD Primary Care Provider + Reason for Visit * Reason Comments Post-op Visit post op follow up Encounter Details Date Type Department Care Team ([facility] st Contact Info) Description 12/06/2018 2:45 PM CDT Office Visit [facility] BREAST SURGERY [address], [address] [address] Laverne Thorpe, NO ADDRESS ON [...] with and without contrast was done at [facility] on 10/16/2018. Films and reports are reviewed. Bilaterally, there are no suspicious masses nor areas of enhancement. There are no abnormalities of the axillae, chest wall nor nipple areolar complexes. There are postlumpectomy changes in the left upper outer breast. BI-RADS 2 per radiology. 06/21/2018 right breast diagnostic mammography was done at [facility] mammography center. These images are compared to [...] radiology. ?? Bilateral screening mammogram done at [facility] mammography Center on October 21, 2017. Both [...] breast documented in this encounter Care Teams Web Sizer Relationship Specialty Start Date End Date Almita Smallwood MD [address] [place] [address] PCP - General Internal Medicine 03/14/18 documented as of this encounter
--- OUTSIDE RECORDS SUMMARY | 2024-04-21 21:37 | XMS_ITS | Encounter Summary ---
Author Organization [facility] Address [address] [place] [address] Care Team Providers Care Qa Tester Name Role Phone Almita Smallwood MD Primary Care Provider + Reason for Visit * Reason Onset Date Comments Results 12/22/2018 Encounter Details Date Type Department Care Team (Late st Contact Info) Description 12/22/2018 Telephone [facility] Oncology and Hematology - [place] [address] [facility] [address] [place] [address] Jacek Laura MD [address] [facility] [address] [place] [address] Results Social History Tobacco Use [...] on filedocumented in this encounter Care Teams Qa Tester Relationship Specialty Start Date End Date Almita Smallwood MD [address] [place] [address] PCP - General Internal Medicine 03/14/18 documented as of this encounter
--- OUTSIDE RECORDS SUMMARY | 2024-04-21 21:37 | XMS_ITS | Encounter Summary ---
Author Organization [facility] Address [address] [place] [address] Care Team Providers Care Interior Assemblies Installer Name Role Phone Almita Smallwood MD Primary Care Provider + Encounter Details Date Type Department Care Team (Late st Contact Info) Description 03/13/2019 Orders Only [facility] Oncology and Hematology - [place] [address] [facility] [address] [place] [address] Jacek Laura MD [address] [facility] [address] [place] [address] Mild anemia Social History Tobacco [...] unspecified documented in this encounter Care Teams Interior Assemblies Installer Relationship Specialty Start Date End Date Almita Smallwood MD [address] [place] [address] PCP - General Internal Medicine 03/14/18 documented as of this encounter
--- OUTSIDE RECORDS SUMMARY | 2024-04-21 21:37 | XMS_ITS | Encounter Summary ---
Author Organization [facility] Address [address] [place] [address] Care Team Providers Care Door Captain Name Role Phone Almita Smallwood MD Primary Care Provider + Encounter Details Date Type Department Care Team (Late st Contact Info) Description 06/30/2018 Orders Only [facility] BREAST SURGERY [address], [address] [place] [address] Provider, Abstract NO ADDRESS ON [...] Total Score: 1 03/14/20 18 3:00 PM PANEL LAMINATOR documented as of this encounter Care Teams Door Captain Relationship Specialty Start Date End Date Almita Smallwood MD [address] [place] [address] PCP - General Internal Medicine 03/14/18 documented as of this encounter
--- OUTSIDE RECORDS SUMMARY | 2024-04-21 21:37 | XMS_ITS | Encounter Summary ---
Author Organization [facility] Address [address] [place] [address] Care Team Providers Care Fly Tier Name Role Phone Almita Smallwood MD Primary Care Provider + Encounter Details Date Type Department Care Team (Late st Contact Info) Description 11/06/2018 Orders Only [facility] BREAST SURGERY LING [address], [address] [place] [address] Laverne Thorpe DO NO ADDRESS [...] hospital had been sent to the wrong [facility] pharmacy. I put through a new prescription, [...] Total Score: 1 03/14/20 18 3:00 PM CREDIT ADJUSTER documented as of this encounter Care Teams Fly Tier Relationship Specialty Start Date End Date Almita Smallwood MD [address] [place] [address] PCP - General Internal Medicine 03/14/18 documented as of this encounter
--- OUTSIDE RECORDS SUMMARY | 2024-04-21 21:37 | XMS_ITS | Encounter Summary ---
Author Organization [facility] Address [address] [place] [address] Care Team Providers Care Women'S Swim Coach Name Role Phone Almita Smallwood MD Primary Care Provider + Encounter Details Date Type Department Care Team (Late st Contact Info) Description 06/29/2018 Orders Only [facility] Internal Medicine - [address] [address] Almita Smallwood MD [address] [place] [address] Chronic anemia (Primary Dx) Social [...] Total Score: 1 03/14/20 18 3:00 PM CUP SETTER LOCKSTITCH documented as of this encounter Care Teams Women'S Swim Coach Relationship Specialty Start Date End Date Almita Smallwood MD [address] [place] [address] PCP - General Internal Medicine 03/14/18 documented as of this encounter
--- OUTSIDE RECORDS SUMMARY | 2024-04-21 21:37 | XMS_ITS | Encounter Summary ---
Author Organization [facility] Address [address] [place] [address] Care Team Providers Care Plating Stripper Name Role Phone Almita Smallwood MD Primary Care Provider + Reason for Visit * Reason Comments Follow Up MMG f/u Encounter Details Date Type Department Care Team ([facility] Contact Info) Description 06/30/2018 9:00 AM CDT Office Visit [facility] BREAST SURGERY L[address], [address] [address] Laverne Thorpe, NO ADDRESS ON [...] right breast diagnostic mammography was done at [facility] [place]ography [place]. These images are compared to those of [...] per radiology. Bilateral screening mammogram done at [facility] mammography [place] on October 21, 2017. Both breasts are [...] Total Score: 1 03/14/20 18 3:00 PM RIBBON CUTTER documented as of this encounter Care Teams Plating Stripper Relationship Specialty Start Date End Date Almita Smallwood MD [address] [place] [address] PCP - General Internal Medicine 03/14/18 documented as of this encounter
--- OUTSIDE RECORDS SUMMARY | 2024-04-21 21:37 | XMS_ITS | Encounter Summary ---
Author Organization [facility] Address [address] [place] [address] Care Team Providers Care Production Worker Name Role Phone Almita Smallwood MD Primary Care Provider + Encounter Details Date Type Department Care Team (Late st Contact Info) Description 08/04/2018 Orders Only [facility] Internal Medicine [address] [address] Provider, Abstract NO ADDRESS ON [...] Total Score: 1 03/14/20 18 3:00 PM CAREER DEVELOPMENT DIRECTOR documented as of this encounter Care Teams Production Worker Relationship Specialty Start Date End Date Almita Smallwood MD [address] [place] [address] PCP - General Internal Medicine 03/14/18 documented as of this encounter
--- OUTSIDE RECORDS SUMMARY | 2024-04-21 21:37 | XMS_ITS | Encounter Summary ---
Author Organization [facility] Address [address] [place] [address] Care Team Providers Care Shot Man Name Role Phone Almita Smallwood MD Primary Care Provider + Encounter Details Date Type Department Care Team (Late st Contact Info) Description 06/13/2019 Orders Only [facility] Oncology and Hematology - [place] [address] [facility] [address] [place] [address] Jacek Laura MD [address] [facility] [address] [place] [address] Ductal carcinoma in situ (DCIS) [...] breast documented in this encounter Care Teams Shot Man Relationship Specialty Start Date End Date Almita Smallwood MD [address] [place] [address] PCP - General Internal Medicine 03/14/18 documented as of this encounter
--- OUTSIDE RECORDS SUMMARY | 2024-04-21 21:37 | XMS_ITS | Encounter Summary ---
Author Organization [facility] Aggarwal [facility] Address [address] [place] [address] Care Team Providers Care Plastics Fitter Name Role Phone Almita Smallwood MD Primary Care Provider + Reason for Visit * Reason Onset Date Comments Medication Refill 01/24/2019 Encounter Details Date Type Department Care Team (Late st Contact Info) Description 01/24/2019 Telephone [facility] Oncology and Hematology - [place] [address] [facility] [address] [place] [address] Jacek Laura MD [address] [facility] [address] [place] [address] Medication Refill Social History Tobacco [...] [ER+] documented in this encounter Care Teams Plastics Fitter Relationship Specialty Start Date End Date Almita Smallwood MD [address] [place] [address] PCP - General Internal Medicine 03/14/18 documented as of this encounter
--- OUTSIDE RECORDS SUMMARY | 2024-04-21 21:37 | XMS_ITS | Encounter Summary ---
Author Organization [facility] Address [address] [place] [address] Care Team Providers Care Informatica Mdm Architect Name Role Phone Almita Smallwood MD Primary Care Provider + Encounter Details Date Type Department Care Team (Late st Contact Info) Description 11/15/2018 Abstract [facility] ONCOLOGY AND HEMATOLOGY-[address] [address] Almita Smallwood MD [address] [place] [address] Social History Tobacco Use Types [...] Total Score: 1 03/14/20 18 3:00 PM CANDY VENDOR documented as of this encounter Care Teams Informatica Mdm Architect Relationship Specialty Start Date End Date Almita Smallwood MD [address] [place] [address] PCP - General Internal Medicine 03/14/18 documented as of this encounter
--- OUTSIDE RECORDS SUMMARY | 2024-04-21 21:37 | XMS_ITS | Encounter Summary ---
Author Organization [facility] Address [address] [place] [address] Care Team Providers Care Setup Technician Name Role Phone Almita Smallwood MD Primary Care Provider + Encounter Details Date Type Department Care Team (Late st Contact Info) Description 07/25/2018 Orders Only [facility] Oncology and Hematology - [address] [place] [address] Brandi Peacock, RN Social History [...] Total Score: 1 03/14/20 18 3:00 PM HAND EXPANSION ENVELOPE MAKER documented as of this encounter Care Teams Setup Technician Relationship Specialty Start Date End Date Almita Smallwood MD [address] [place] [address] PCP - General Internal Medicine 03/14/18 documented as of this encounter
--- OUTSIDE RECORDS SUMMARY | 2024-04-21 21:37 | XMS_ITS | Encounter Summary ---
Author Organization [facility] Address [address] [place] [address] Care Team Providers Care Motorman/Woman Name Role Phone Almita Smallwood MD Primary Care Provider + Encounter Details Date Type Department Care Team (Late st Contact Info) Description 06/13/2019 Orders Only [facility] Internal Medicine - [facility] [address] [place] [address] Almita Smallwood MD [address] [place] [address] Chronic anemia Social History Tobacco [...] unspecified documented in this encounter Care Teams Motorman/Woman Relationship Specialty Start Date End Date Almita Smallwood MD [address] [place] [address] PCP - General Internal Medicine 03/14/18 documented as of this encounter
--- OUTSIDE RECORDS SUMMARY | 2024-04-21 21:37 | XMS_ITS | Encounter Summary ---
Author Organization [facility] Address [address] [place] [address] Care Team Providers Care Laborer Wood Preserving Plant Name Role Phone Almita Smallwood MD Primary Care Provider + Reason for Referral * Eval and Treat (2-4 Days) - Closed Specialty Diagnoses / Procedures Referred By Tati campos Referred To Contact Nutrition Diagnoses Proteins serum plasma low Almita Smallwood MD [address] [place] [address] Joana Hollis, RD [address] [place] [address] Referral ID Status Reason Start Date Expiration Date V isits Requested Visits Authorized [id number] Closed CRS To Schedule (STL) 03/21/2018 03/22/2019 1 1 HOLDER Reason for Visit * Reason Onset Date Comments Results 03/20/2018 Encounter Details Date Type Department Care Team (Late st Contact Info) Description 03/20/2018 Telephone [facility] Internal Medicine - [facility] [address] [place] [address] Almita Smallwood MD [address] [place] [address] Results Social History Tobacco Use [...] on: 03/21/2018 03:16 PM Modules accepted: Orders HOLDER * Telephone Encounter - Emiliano Leary RN - 03/21/2018 3:15 PM CST Pt called back and states wants to do Structures Mechanic referral for low protein,Referral placed per Dr Smallwood's orders.Pt aware [facility] will call her to schedule appt. HOLDER * Telephone Encounter - Emiliano Leary RN [...] diet and we can refer her to plant tech.Pt states she will increase Protein in her diet doesn't need to see Structures Mechanic.Pt aware her Blood counts being borderline low [...] if dizziness persist orgets worse.Dr Smallwood aware. HOLDER * Telephone Encounter - Emiliano Leary RN - 03/20/2018 10:32 AM CST ----- Message from Almita Smallwood MD sent at 03/20/2018 10:17 AM PLOW HOLDER ----- Please call patient with following results. [...] in her diet, we can refer to plant tech if she is interested. Her blood counts being borderline low is consistent with very mild anemia, but as it is normocytic (not microcytic) low suspicion for iron deficiency. She is up to date with her colonoscopy which is important. Recommend we repeat these blood tests (CBC, CMP) in three months to follow up on them. HOLDER documented in this encounter Plan of Treatment Scheduled Referrals Name Type Priority Associated Diagnoses Orde r Schedule AMB REFERRAL TO COMBER SETTER Outpatient Referral Routine Proteins serum plasma low Ordered: 03/21/2018 documented as of this encounter Visit Diagnoses Diagnosis Proteins serum plasma low- Primary Other disorders of plasma protein metabolism documented in this encounter Additional Health Concerns Assessment Noted Time PHQ-9 Depression Total Score: 1 03/14/20 18 3:00 PM PLOW HOLDER documented as of this encounter Care Teams Laborer Wood Preserving Plant Relationship Specialty Start Date End Date Almita Smallwood MD [address] [place] [address] PCP - General Internal Medicine 03/14/18 documented as of this encounter
--- OUTSIDE RECORDS SUMMARY | 2024-04-21 21:37 | XMS_ITS | Encounter Summary ---
Author Organization [facility] Address [address] [place] [address] Care Team Providers Care Ice Cream Truck Driver Name Role Phone Almita Smallwood MD Primary Care Provider + Encounter Details Date Type Department Care Team (Late st Contact Info) Description 03/20/2018 Orders Only [facility] Internal Medicine - [address] [address] Almita Smallwood MD [address] [place] [address] Mild anemia (Primary Dx); Proteins [...] Almita Smallwood MD CHEMISTRY ORDERA BLES [facility]# [id number] [address] [place] [address] * CBC WITH DIFFERENTIAL (06/21/2018) Blood Almita Smallwood MD HEMATOLOGY ORDER MANUEL [facility]# [id number] [address] [place] [address] documented in this encounter Visit Diagnoses Diagnosis Mild anemia- Primary Anemia, unspecified Proteins serum plasma low Other disorders of plasma protein metabolism Elevated serum creatinine Other nonspecific findings on examination of blood documented in this encounter Additional Health Concerns Assessment Noted Time PHQ-9 Depression Total Score: 1 03/14/20 18 3:00 PM DIRECTOR OF MARKET ANALYSIS documented as of this encounter Care Teams Ice Cream Truck Driver Relationship Specialty Start Date End Date Almita Smallwood MD [address] [place] [address] PCP - General Internal Medicine 03/14/18 documented as of this encounter
--- OUTSIDE RECORDS SUMMARY | 2024-04-21 21:37 | XMS_ITS | Encounter Summary ---
Author Organization [facility] Address [address] [place] [address] Care Team Providers Care Designated Broker Name Role Phone Almita Smallwood MD Primary Care Provider + Reason for Visit * Reason Comments Sinus Pain Encounter Details Date Type Department Care Team ([facility] st Contact Info) Description 08/16/2019 11:40 AM CDT Video Visit [facility] Internal Medicine - [address] [address] Almita Smallwood MD [address] [place] [address] Acute recurrent maxillary sinusitis (Primary [...] not a tobacco user. Almita Smallwood MD [facility] Internal Medicine- [facility] This encounter was completed via [...] sinusitis documented in this encounter Care Teams Designated Broker Relationship Specialty Start Date End Date Almita Smallwood MD [address] [place] [address] PCP - General Internal Medicine 03/14/18 documented as of this encounter
--- OUTSIDE RECORDS SUMMARY | 2024-04-21 21:37 | XMS_ITS | Encounter Summary ---
Author Organization [facility] Address [address] [place] [address] Care Team Providers Care Information Security Engineer Name Role Phone Almita Smallwood MD Primary Care Provider + Reason for Visit * Reason Comments Biopsy R Axillary LN Core B x Encounter Details Date Type Department Care Team (Latest Contact Info) Description 10/17/2018 9:30 AM CDT Procedure visit [facility] BREAST SURGERY [address], [address] [address] Laverne Thorpe, NO ADDRESS ON [...] - coil SenoMark UltraCor Breast Tissue Marker, [id number] 14G x 10cm Lot: [id number] Exp: [id number] Lidocaine 1% (50mg/5mL) Lot: [id number] Exp: [id number] Dose: 1mL Lidocaine 1% and Epinepherine 1:100,000 (50mL) Lot: [id number] Exp: [id number] Dose: 4mL Sensorcaine 0.25% (50mL) Lot: [id number] Exp: [id number] Dose: 2mL * Laverne Thorpe DO - [...] Total Score: 1 03/14/20 18 3:00 PM CELL POURER documented as of this encounter Care Teams Information Security Engineer Relationship Specialty Start Date End Date Almita Smallwood MD [address] [place] [address] PCP - General Internal Medicine 03/14/18 documented as of this encounter
--- OUTSIDE RECORDS SUMMARY | 2024-04-21 21:37 | XMS_ITS | Encounter Summary ---
Author Organization [facility] Address [address] [place] [address] Care Team Providers Care Cigar Packing Examiner Name Role Phone Almita Smallwood MD Primary Care Provider + Reason for Visit * Reason Onset Date Comments Needs Orders Written 03/22/2019 Encounter Details Date Type Department Care Team (Late st Contact Info) Description 03/22/2019 Telephone [facility] Oncology and Hematology - [address] [facility] [address] [place] [address] Jacek Laura MD [address] [facility] [address] [place] [address] Needs Orders Written Social History [...] Blood Jacek Laura MD CHEMISTRY ORDERABLES NON [facility] * VITAMIN B12 AND FOLATE (03/22/2019) Blood Jacek Laura MD CHEMISTRY ORDERABLES NON [facility] documented in this encounter Visit Diagnoses Diagnosis 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
--- OUTSIDE RECORDS SUMMARY | 2024-04-21 21:37 | XMS_ITS | Encounter Summary ---
Author Organization [facility] Address [address] [place] [address] Care Team Providers Care Reamer Hand Name Role Phone Almita Smallwood MD Primary Care Provider + Encounter Details Date Type Department Care Team (Late st Contact Info) Description 12/19/2018 Orders Only [facility] Internal Medicine - [address] [address] Almita Smallwood MD [address] [place] [address] Screening, ischemic heart disease; Normal [...] Smallwood MD CHEMISTRY ORDERA BLES [facility]# [id number] [address] [place] [address] documented in this encounter Visit Diagnoses Diagnosis Screening, ischemic heart disease Screening for ischemic heart disease Normal routine physical examination Reserved for inherently not codable concepts WITHOUT codable children Mild anemia Anemia, unspecified documented in this encounter Care Teams Reamer Hand Relationship Specialty Start Date End Date Almita Smallwood MD [address] [place] [address] PCP - General Internal Medicine 03/14/18 documented as of this encounter
--- OUTSIDE RECORDS SUMMARY | 2024-04-21 21:37 | XMS_ITS | Encounter Summary ---
Author Organization [facility] Address [address] [place] [address] Care Team Providers Care Temper Mill Operator Name Role Phone Almita Smallwood MD Primary Care Provider + Reason for Visit * Reason Onset Date Comments Medication Refill 07/25/2018 Encounter Details Date Type Department Care Team (Late st Contact Info) Description 07/25/2018 Telephone [facility] Oncology and Hematology - [address] [facility] [address] [place] [address] Jacek Laura MD [address] [facility] [address] [place] [address] Medication Refill Social History Tobacco [...] Total Score: 1 03/14/20 18 3:00 PM ENAMEL MACHINE OPERATOR documented as of this encounter Care Teams Temper Mill Operator Relationship Specialty Start Date End Date Almita Smallwood MD [address] [place] [address] PCP - General Internal Medicine 03/14/18 documented as of this encounter
--- OUTSIDE RECORDS SUMMARY | 2024-04-21 21:37 | XMS_ITS | Encounter Summary ---
Author Organization [facility] Address [address] [place] [address] Care Team Providers Care Cuprous Chloride Helper Name Role Phone Almita Smallwood MD Primary Care Provider + Encounter Details Date Type Department Care Team (Late st Contact Info) Description 11/27/2018 Orders Only [facility] BREAST SURGERY [address], [facility] [address] [place] [address] Provider, Abstract NO ADDRESS ON [...] Total Score: 1 03/14/20 18 3:00 PM RECRUITMENT OFFICER documented as of this encounter Care Teams Cuprous Chloride Helper Relationship Specialty Start Date End Date Almita Smallwood MD [address] [place] [address] PCP - General Internal Medicine 03/14/18 documented as of this encounter
--- OUTSIDE RECORDS SUMMARY | 2024-04-21 21:37 | XMS_ITS | Encounter Summary ---
Author Organization [facility] Address [address] [place] [address] Care Team Providers Care Tow Motor Operator Name Role Phone Almita Smallwood MD Primary Care Provider + Encounter Details Date Type Department Care Team (Late st Contact Info) Description 06/19/2018 Orders Only [facility] Oncology and Hematology - [address] [phone] Brandi Peacock RN Mild anemia; Proteins serum [...] BLES [facility]# [id number] [address] [place] [address] * CBC WITH DIFFERENTIAL (06/21/2018) Blood Almita Smallwood MD HEMATOLOGY ORDER MANUEL [facility]# [id number] [address] [place] [address] documented in this encounter Visit Diagnoses Diagnosis Mild anemia Anemia, unspecified Proteins serum plasma low Other disorders of plasma protein metabolism Elevated serum creatinine Other nonspecific findings on examination of blood documented in this encounter Additional Health Concerns Assessment Noted Time PHQ-9 Depression Total Score: 1 03/14/20 18 3:00 PM LOCK UP WORKER documented as of this encounter Care Teams Tow Motor Operator Relationship Specialty Start Date End Date Almita Smallwood MD [address] [place] [phone] PCP - General Internal Medicine 03/14/18 documented as of this encounter
--- OUTSIDE RECORDS SUMMARY | 2024-04-21 21:37 | XMS_ITS | Encounter Summary ---
Author Organization [facility] Address [address] [place] [address] Care Team Providers Care Contracts Specialist Name Role Phone Almita Smallwood MD Primary Care Provider + Reason for Visit * Reason Comments Follow Up 3 Month F/U Encounter Details Date Type Department Care Team (Late st Contact Info) Description 03/22/2019 3:15 PM VARNISH MAKER Office Visit [facility] Oncology and Hematology - [address] [facility] [address] [place] [address] Jacek Laura MD [address] [facility] [address] [place] [address] Mild anemia (Primary Dx); Other [...] Comments Blood Pressure 118/72 03/22/2019 3:12 PM VARNISH MAKER Pulse 74 03/22/2019 3:12 PM VARNISH MAKER Temperature 36.7 ??C (98.1 ??F) 03/22/2019 3:12 PM CS T Respiratory Rate - - Oxygen Saturation 98% 03/22/2019 3:12 PM VARNISH MAKER Inhaled Oxygen Concentration - - Weight 66.1 kg (145 lb 12.8 oz) 03/22/2019 3:12 PM VARNISH MAKER Height 167.6 cm (5' 6 ) 03/22/2019 3:12 PM VARNISH MAKER Body Mass Index 23.53 03/22/2019 3:12 PM VARNISH MAKER documented in this encounter Progress Notes * [...] has some tiredness and fatigue. She just [place] taking oral vitamin B12 2 weeks ago. [...] Stable with acteane 03/22/2019 Jacek Laura MD ISH MAKER documented in this encounter Plan of Treatment Not on file documented as of this encounter Visit Diagnoses Diagnosis Mild anemia- Primary Anemia, unspecified Other dietary vitamin B12 deficiency anemia documented in this encounter Care Teams Contracts Specialist Relationship Specialty Start Date End Date Almita Smallwood MD [address] [place] [address] PCP - General Internal Medicine 03/14/18 documented as of this encounter
--- OUTSIDE RECORDS SUMMARY | 2024-04-21 21:38 | XMS_ITS | Encounter Summary ---
Author Organization [facility] Address [address] [place] [address] Phone Care Team Providers Care Automatic Buffer Name Role Phone Wolfgang Smallwood MD Primary Care Provider + Wolfgang Smallwood MD Unavailable [phone] Jacek Laura MD Unavailable [phone] Reason for Visit * Reason Comments Consult * Consultation (Routine) - Closed Specialty Diagnoses / Procedures Referred By Contac t Referred To Contact Surgical Oncology Diagnoses 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 [address] [place] [address] Phone: tel: fax: Linda Buckley MD PhD [address] [facility] [phone] [place] [address] Phone: tel: fax: Referral ID Status Reason Start Date Expiration Date V isits Requested Visits Authorized [id number] Closed Specialty Services Required 04/29/2021 05/29/2022 1 1 Encounter Details Date Type Department Care Team (Late st Contact Info) Description 08/06/2021 3:00 PM CDT Office Visit [facility] 5th [place] [address] [place] [address] Linda Buckley MD PhD [address] [facility] [phone] [place] [address] Encounter for follow-up surveillance of breast cancer [...] on file Legal Sex Female 3:38 AM 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 This was a grade 1 ER+/NM+ DCIS. She also has a history of a right axillary lymph node biopsy in 2019 which was benign. Her last mammogram was in June of 2021 which was benign. She has no breast complaints. She specifically denies nipple discharge, skin reddening, skin thickening, masses, pain.. 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 [...] 11/2016 For Stage [address] [facility] in [place], [place]. No chemorx or XRT, only Tamoxifen. ??? TUBAL LIGATION Medications: HOME MEDICATIONS : albuterol HFA (PROVENTIL HFA,VENTOLIN HFA,PROAIR HFA) 90 mcg/actuation inhaler collagen, hydrolysate, bovine, (COLLAGEN, HYDR, BOVINE,, BULK, MISC) suymjbotiyu-ipucashiu-lwbtnpme (TRELEGY ELLIPTA) 100-62.5-25 mcg inhaler levocetirizine (XYZAL) [...] M.D. ASSESSMENT 1. Left breast DCIS , ER+/NM+, pTis- Stage 0 2. Hx of Left [...] This note is dictated and transcribed by [employer]. Wood Strip Block Floor Installer variances may occur. Despite proofreading, typographical errors [...] breast documented in this encounter Care Teams Automatic Buffer Relationship Specialty Start Date End Date Wolfgang Smallwood MD [address] [place] [address] PCP - General 04/17/20 02/14/23 Wolfgang Smallwood MD [address] [place] [address] Internal Medicine 04/17/20 Jacek Laura MD [address] [phone] Referring Physician Hematology 06/02/21 06/28/22 documented as of this encounter
--- OUTSIDE RECORDS SUMMARY | 2024-04-21 21:38 | XMS_ITS | Encounter Summary ---
Author Organization [facility] Healthcare Address [address] [place] [address] Care Team Providers Care Restaurant Floor Manager Name Role Phone Almita Smallwood MD Primary Care Provider + Almita Smallwood MD Unavailable [phone] Jacek Laura MD Unavailable [phone] Yuri Rocha MD Unavailable Reason for Visit * Auth/Cert Specialty Diagnoses / Procedures Referred By Tati campos Referred To Contact Diagnoses Sebaceous cyst Sebaceous cyst [L72.3] Procedures NC EXC B9 LESION MRGN XCP SK TG T/A/L 0.6-1.0 CM NC EXC B9 LESION MRGN XCP SK TG T/A/L 1.1-2.0 CM NC EXC B9 LESION MRGN XCP SK TG T/A/L 2.1-3.0 CM EXCISION CYST BACK/ 60 min Referral ID Status Reason Start Date Expiration Date Visits Re quested Visits Authorized [id number] 1 1 Encounter Details Date Type Department Care Team (Late st Contact Info) Description 04/07/2022 10:30 AM CCO - 04/07/2022 11:30 AM CCO Surgery [facility] Operating Room [address] [place] [address] [place] [address] [facility] [address] [place] [address] EXCISION CYST BACK Surgery Details Date/Time Status Location OR Service Patient Class Case Cl ass Case Type Trauma Case? 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[employer]) Not on file Not on file Not on file documented as of this encounter Last Filed Vital Signs Vital Sign Reading Time Taken Comments Blood Pressure 115/63 04/07/2022 11:30 AM CCO Pulse 65 04/07/2022 11:30 AM CCO Temperature 36.4 ??C (97.6 ??F) 04/07/2022 11:[address] Respiratory Rate 18 04/07/2022 11:30 AM CCO Oxygen Saturation 99% 04/07/2022 11:30 AM CCO Inhaled Oxygen Concentration - - Weight 68.5 kg (151 lb) 04/07/2022 8:39 AM CCO Height 165.1 cm (5' 5 ) 04/07/2022 8:39 AM CCO Body Mass Index 25.13 04/07/2022 8:39 AM CCO documented in this encounter Discharge Instructions * Discharge Instructions* Janene Slater RN - 04/07/2022 11:58 AM CCO FOLLOW UP CALLS You may get a [...] enough for us, we strive for EXCELLENCE! * Attachments The following attachments cannot be sent through Care Everywhere. * Moderate Sedation (Discharge Care) (Northern Irish) * Dermal Cyst Excision (Discharge Care) (Northern Irish) documented in this encounter Medications at Time of Discharge aspirin 81 mg enteric coated tablet Take 81 mg by mouth daily collagen, hydrolysate, bovine, (COLLAGEN, HYDR, BOVINE,, BULK, MISC) by [facility].(Non-Jersey g; Combo Route) route. cyclobenzaprine (FLEXERIL) 5 [...] : Procedure(s): EXCISION CYST BACK/ 60 min Source Note - Yuri Rocha MD - 03/31/2022 11:00 AM CCO General Surgery Reason for Consult/Visit: back cyst [...] and written informed consent has been obtained. documented in this encounter Miscellaneous Notes * [...] I was immediatelyavailable. Yuri Rocha MD 04/07/22 * Pre-Procedure Instructions - Sofi Hardy RN - 04/06/2022 2:16 PM CCO We are pleased that you and your doctor have chosen [facility] for your surgery. We hope that the following information will help make your visit a pleasant one. Surgery Date: 04/07/2022 and arrive at 08:30 a.m. [facility] (look for sign reading ???EMERGENCY - SURGERY CENTER?? ) [address] [place] [address] Before your surgery: Notify your doctor of [...] at the desk that you came to oyster picker your soapfor your surgery. Or you [...] insurance cards, and medication list (including all ttpj-rrb-czvrsjv medications) with you. Prescriptions can be filled [...] your Pre-Admission Screen/Testing, please call at . documented in this encounter Plan of Treatment Not on file documented as of this encounter Procedures Procedure Name Priority Date/Time Associated Diagnosis Comments SURGICAL PATHOLOGY Routine 04/07/2022 12 :17 PM CCO Sebaceous cyst EXCISION CYST/LIPOMA/LESION 04/07/2022 10:24 AM CCO Sebaceous cyst documented in this encounter Results * Surgical pathology (04/07/2022 12:17 PM CCO) Tissue (Cyst) 04/07/2022 11: 01 AM CCO Narrative PATHOLOGY CH - 04/08/2022 3:57 PM CCO EPIC results best viewed via link to PDF [facility] Department of Pathology [address] [place] [address] Note to Patients: This report may [...] Final Report Patient Name: ??LISA HERMOSILLO Address: ??[address] , ??[place] [address] Gender: ??F : ??1960 (Age: 62) Service: ??Surgery Location: ?? OR Hospital #: ??[id number] Patient Type: ??[facility] Accession # ?[id number] Taken: ??04/07/2022 Received: ??04/07/2022 Accessioned: ??04/07/2022 Reported: [...] determined by the Surgical Pathology Department at [facility] as part of an ongoing production quality analyst program and in compliance with federally mandated [...] characteristics determined by the Surgical Pathology Department [facility]. ??It has not been cleared or approved by the U. S. Food and Drug Administration. Note for decalcified specimens: This assay has not been validated on decalcified tissues. Results should be interpreted with caution given the possibility of false negativity on decalcified specimens Yuri Rocha MD LAB PATHOLOGY ORDERABLES F inal Result PATHOLOGY [address] [place] [address] documented in this encounter Visit Diagnoses Diagnosis [...] AnalgesiaIndications:Pre-Em ptive Analgesia Given 04/07/2022 8:45 AM CCO 650 mg bupivacaine-EPINEPHrine (MARCAINE with EPI) 0.25 %-1:200,000 preservative free injection As needed, Starting on Tue04/07/22 at 1105, Intra-Op Given 04/07/2022 11:05 AM CCO 10 mL Surgical Site Lactated Ringer's (LR) infusion - ADS Override Pull Starting on Tue04/07/22 at 0838, For 1 dose, Created by cabinet override Lactated Ringer's (LR) infusion 30 mL/hr, intravenous, Continuous, Starting on Tue04/07/22 at 0915, Restarted 04/07/2022 11:14 AM CCO Rate/Dose Verify 04/07/2022 10:24 AM CCO 30 mL/ hr New Bag 04/07/2022 8:45 AM CCO 30 mL/hr 30 mL/hr sodium chloride 0.9% irrigation As needed, Starting on Tue04/07/22 at 1047, Intra-Op Given 04/07/2022 10:47 AM CCO 1,000 mL Surgical Site documented in this [...] Recently Administered Medications Times are shown in CCO. Scheduled Medication Order 04/05/2022 04/06/2022 04/07/2022 acetaminophen [...] 04/07/2022 documented in this encounter Care Teams Restaurant Floor Manager Relationship Specialty Start Date End Date Almita Smallwood MD [address] [place] [address] PCP - General 04/17/20 02/14/23 Almita Smallwood MD [address] [place] [phone] Internal Medicine 04/17/20 Jacek Laura MD [address] [phone] Referring Physician Hematology 06/02/21 06/28/22 [place] [address] [address] [address] Surgeon General Surgery 04/07/22 documented as of this encounter
--- OUTSIDE RECORDS SUMMARY | 2024-04-21 21:38 | XMS_ITS | Encounter Summary ---
Author Organization [facility] Address [address] [place] [address] Care Team Providers Care Quality Assurance Assessor Name Role Phone Unavailable Primary Care Provider Unavailabl e Encounter Details Date Type Department Care Team (Latest Contact Info) Description 10/27/2016 1:35 PM CDT - 10/27/2016 11:59 PM CDT Hospital Encounter [facility] A [address] [place] [address] [facility], External Provider [address] [place] [address] Discharge Disposition: Home or Self Care Social [...] 1:35 PM CDT) Narrative 03/04/2020 1:27 PM PLANER FEEDER This exam was auto finalized to allow images to be scanned to PACS. External Provider [facility] DIAGNOSTIC IMAGI NG ORDERABLES documented in this encounter Visit Diagnoses Diagnosis Follow up documented in this encounter
--- OUTSIDE RECORDS SUMMARY | 2024-04-21 21:38 | XMS_ITS | Encounter Summary ---
Author Organization [facility] Address [address] [place] [address] Phone Care Team Providers Care Business Continuity Analyst Name Role Phone Almita Smallwood MD Primary Care Provider + Almita Smallwood MD Unavailable [phone] Jacek Laura MD Unavailable [phone] Encounter Details Date Type Department Care Team (Late st Contact Info) Description 06/19/2021 Telephone [facility] Surgery [address] 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 HOUSE WHEELER documented in this encounter Plan of Treatment Not on file documented as of this encounter Visit Diagnoses Not on filedocumented in this encounter Care Teams Business Continuity Analyst Relationship Specialty Start Date End Date Almita Smallwood MD [address] [place] [address] PCP - General 04/17/20 02/14/23 Almita Smallwood MD [address] [place] [address] Internal Medicine 04/17/20 Jacek Laura MD [address] [phone] Referring Physician Hematology 06/02/21 06/28/22 documented as of this encounter
--- OUTSIDE RECORDS SUMMARY | 2024-04-21 21:38 | XMS_ITS | Encounter Summary ---
Author Organization [facility] Address [address] [place] [address] Care Team Providers Care Shampooer Name Role Phone Unavailable Primary Care Provider Unavailabl e Encounter Details Date Type Department Care Team (Latest Contact Info) Description 09/21/2016 1:30 PM CDT - 09/21/2016 11:59 PM CDT Hospital Encounter [facility] [place] A [address] [place] [address] [facility], External Provider [address] [place] [address] Discharge Disposition: Home or Self Care Social [...] 1:30 PM CDT) Narrative 03/04/2020 1:26 PM INSPECTOR AND CLERK This exam was auto finalized to allow images to be scanned to PACS. External Provider [facility] DIAGNOSTIC IMAGI NG ORDERABLES documented in this encounter Visit Diagnoses Diagnosis Follow up documented in this encounter
--- OUTSIDE RECORDS SUMMARY | 2024-04-21 21:38 | XMS_ITS | Encounter Summary ---
Author Organization [facility] Address [address] [place] [address] Phone Care Team Providers Care Dry Molder Name Role Phone Almita Smallwood MD Primary Care Provider + Almita Smallwood MD Unavailable [phone] Jacek Laura MD Unavailable [phone] Reason for Referral * MRI/CAT/PET Scan (Routine) - Closed Specialty Diagnoses / Procedures Referred By Tati campos Referred To Contact Radiology Diagnoses Family history of breast cancer Procedures MRI Breast Bilateral W WO Contrast Snow Calabrese MD [address] [place] [address] Phone: tel: fax: [address] [address] Referral ID Status Reason Start Date Expiration Date Visits Re quested Visits Authorized [id number] Closed 08/06/2021 09/05/2022 1 1 * Diagnostic Imaging (Routine) - Closed Specialty Diagnoses / Procedures Referred By Tati campos Referred To Contact Diagnoses Encounter for screening mammogram for breast cancer Procedures Screening Mammogram Bilateral W Chris Snow Calabrese MD [address] [place] [address] Phone: tel: fax: [facility] [address] [place] [address] Referral ID Status Reason Start Date Expiration Date Visits Re quested Visits Authorized [id number] Closed 08/06/2021 09/05/2022 1 1 Reason for Visit * Consultation (Routine) - Closed Specialty Diagnoses / Procedures Referred By Contac t Referred To Contact Oncology Diagnoses Malignant neoplasm of female breast, unspecified estrogen receptor status, unspecified laterality, unspecified site of breast (HCC) Referral, Self [facility] Oncology [address] [facility] 7th [place] [address] Phone: tel: fax: Referral ID Status Reason Start Date Expiration Date V isits Requested Visits Authorized [id number] Closed Specialty Services Required 05/29/2021 06/28/2022 99 99 Encounter Details Date Type Department Care Team (Late st Contact Info) Description 08/06/2021 8:00 AM CDT Office Visit 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 Cain, she was treated in at [facility] in 2016 (partial mastectomy 11/22/16) for DCIS [...] after establishing care with Dr. Cain at [facility]. She stopped HRT at the time [...] 11/22/2016 For Stage 0 breast CA at [facility] in [place], [place]. No chemorx or XRT, only Tamoxifen. [...] (Patient not taking: Reported on 08/06/2021) ??? zsdfzueamun-fuqrkkemp-rnaklspm, 1 puff, inhalation, Daily (Patient not taking: [...] Breast imaging ??? breast MRI 11/05/16 at [facility]. BI-RADS 6. Minimal enhancement around her left biopsy clip. ??? left diagnostic mammogram 05/26/17 at [facility]. BI-RADS 2. This was her first post-BCT mammogram. ??? breast MRI 10/16/18 at [facility]. BI-RADS 2. Per the report, she was having clear nipple discharge. ??? bilateral screening mammography 02/21/20. BI-RADS 2. Heterogeneously dense. ??? bilateral screening mammography 06/25/21 at [facility]. BI-RADS 2. Heterogeneously dense. Other imaging reports [...] v 2 mm (both reported on oncology notes),ER/[place] strongly positive, Oncotype DCIS 0; a note [...] metaplasia, inactive endometrium Assessment/Plan: Left DCIS, G1, ER/[place] strongly positive Tamoxifen AUB with benign D&C [...] women to afford if they have high xrm-pq-pucctu costs. MRI may be difficult for women [...] services. Snow Calabrese MD, FACS Medical Oncology [facility] documented in this encounter Plan of Treatment [...] MAMMOGRAM COMPARISON: Multiple prior studies, most recently [facility] 06/25/2021 and dating back to 08/28/2015. [...] 023 documented in this encounter Care Teams Dry Molder Relationship Specialty Start Date End Date Almita Smallwood MD [address] [place] [address] PCP - General 04/17/20 02/14/23 Almita Smallwood MD [address] [place] [address] Internal Medicine 04/17/20 Jacek Laura MD [address] [phone] Referring Physician Hematology 06/02/21 06/28/22 documented as of this encounter
--- OUTSIDE RECORDS SUMMARY | 2024-04-21 21:38 | XMS_ITS | Encounter Summary ---
Author Organization [facility] Healthcare Address [address] [place] [address] Care Team Providers Care Visual Display Manager Name Role Phone Wolfgang Smallwood MD Primary Care Provider + Wolfgang Smallwood MD Unavailable [phone] Jacek Laura MD Unavailable [phone] Reason for Referral * Diagnostic Imaging (Routine) - Closed Specialty Diagnoses / Procedures Referred By Tati campos Referred To Contact Diagnoses Screening mammogram, encounter for Procedures Screening [place] [address] [place] [address] Phone: tel: fax: [facility] Referral ID Status Reason Start Date Expiration Date Visits Re quested Visits Authorized [id number] Closed 04/29/2021 05/29/2022 1 1 DER OPERATOR Reason for Visit * Diagnostic Imaging (Routine) - Closed Specialty Diagnoses / Procedures Referred By Tati campos Referred To Contact Diagnoses Screening mammogram, encounter for Procedures Screening [place] [address] [place] [address] Phone: tel: fax: [facility] Referral ID Status Reason Start Date Expiration Date Visits Re quested Visits Authorized [id number] Closed 04/29/2021 05/29/2022 1 1 Encounter Details Date Type Department Care Team (Late st Contact Info) Description 06/25/2021 7:54 AM PLODDER OPERATOR - 06/25/2021 11:59 PM PLODDER OPERATOR Hospital Encounter [facility] [address] [place] [address] [place] [address] [address] Screening mammogram, encounter for Discharge Disposition: Discharge [...] on file Legal Sex Female 3:38 AM PLODDER OPERATOR Gender Identity Not on file Sexual Orientation Not on file 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[employer]) Not on file Not on file Not on file documented as of this encounter Last Filed Vital Signs Vital Sign Reading Time Taken Comments Blood Pressure - - Pulse - - Temperature - - Respiratory Rate - - Oxygen Saturation - - Inhaled Oxygen Concentration - - Weight - - Height 167.6 cm (5' 6 ) 06/25/2021 8:17 AM PLODDER OPERATOR Body Mass Index - - documented in [...] Read Routine (OP Routine) 06/25/2021 8:24 AM PLODDER OPERATOR Screening mammogram, encounter for documented in this encounter Results * Screening Mammogram Bilateral W Chris (06/25/2021 8:24 AM PLODDER OPERATOR) Anatomical Region Laterality Modality Breast Bilateral Mammography [...] interval change. Wolfgang Obando MD IMG MAMMO [place] OCEDURES Final Result documented in this encounter Visit Diagnoses Diagnosis Screening mammogram, encounter for documented in this encounter Care Teams Visual Display Manager Relationship Specialty Start Date End Date Wolfgang Smallwood MD [address] [place] [address] PCP - General 04/17/20 02/14/23 Wolfgang Smallwood MD [address] [place] [address] Internal Medicine 04/17/20 Jacek Laura MD [address] [address] Referring Physician Hematology 06/02/21 06/28/22 documented as of this encounter
--- OUTSIDE RECORDS SUMMARY | 2024-04-21 21:38 | XMS_ITS | Encounter Summary ---
Author Organization [facility] Address [address] [place] [address] Care Team Providers Care Apartment Leasing Consultant Name Role Phone José Guzman MD Primary Care Provider [phone] Reason for Referral * Outpatient Services (Routine) - Closed Specialty Diagnoses / Procedures Referred By Tati campos Referred To Contact Diagnoses Osteoporosis screening Procedures XR DEXA BONE DENSITY AXIAL 1 OR MORE SITES Laverne Thorpe DO NO ADDRESS ON FILE [address] [address] Referral ID Status Reason Start Date Expiration Date Visits Requested Visits Authorized [id number] Closed Ordering Department To Schedule 09/15/2017 10/16/2018 1 1 Reason for Visit * Reason Comments Follow Up Encounter Details Date Type Department Care Team (Late st Contact Info) Description 09/15/2017 3:30 PM CDT Office Visit [facility] BREAST SURGERY [facility] [address], [address] [address] Laverne Thorpe DO NO ADDRESS [...] She had a an order from her block tester, but this . I will give her [...] (SERMs) documented in this encounter Care Teams Apartment Leasing Consultant Relationship Specialty Start Date End Date José Guzman MD [address] [place] [address] PCP - General Family Practice 01/07/17 03/13/18 documented as of this encounter
--- OUTSIDE RECORDS SUMMARY | 2024-04-21 21:38 | XMS_ITS | Encounter Summary ---
Author Organization [facility] Address [address] [place] [address] Phone Care Team Providers Care Ship'S Engineer Name Role Phone Almita Smallwood MD Primary Care Provider + Almita Smallwood MD Unavailable [phone] Yuri Rocha MD Unavailable Reason for Visit * Reason Comments Follow-up Encounter Details Date Type Department Care Team (Late st Contact Info) Description 06/29/2022 8:40 AM CDT Office Visit 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 Per her oncology consultation at [facility] 02/22/[address] Cain, she was treated in at [facility] in 2017 (partial mastectomy 11/22/16) for DCIS [...] after establishing care with Dr. Cain at [facility]. She stopped HRT at the time of [...] effects. No vaginal bleeding. Due to see licensed psychiatric technician. Colonoscopy for BRBPR March 2022. Normal. 5 year follow-up recommended. Doing Crossfit. When I saw her last year she reported weight gain and worsening of sciatic pain. Lost 30# and sciatica improved. Overall in good spirits. She did start a part-time job working at the [employer]. Risk assessment data: Lisa Hermosillo has been [...] [facility] in [place], [place]. No chemorx or XRT, only Tamoxifen. [...] DAYS (Patient not taking: Reported on 08/06/2021) anluhdjkvdx-vsfqvyzqv-fklxklif, 1 puff, inhalation, Daily (Patient not taking: [...] review: Breast imaging breast MRI 11/05/16 at [facility]. BI-RADS 6. Minimal enhancement around her left biopsy clip. left diagnostic mammogram 05/26/17 at [facility]. BI-RADS 2. This was her first post- BCT mammogram. breast MRI 10/16/18 at [facility]. BI-RADS 2. Per the report, she was having clear nipple discharge. bilateral screening mammography 02/21/20. BI-RADS 2. Heterogeneously dense. bilateral screening mammography 06/25/21 at [facility]. BI-RADS 2. Heterogeneously dense. Breast MRI 12/17/21, [...] 2 mm (both reported on oncology notes), ER/[place] strongly positive, Oncotype DCIS 0; a note [...] Rocha (general surgery) Assessment/Plan: Left DCIS, G1, ER/PA strongly positive Tamoxifen AUB with benign D&C [...] services. Snow Calabrese MD, FACS Medical Oncology [facility] documented in this encounter Plan of [...] every 4 hours as needed 02/15/2020 06/29/2022 oisdydiddke-frswtxbxy-ze lanter (TRELEGY ELLIPTA) 100-62.5-25 mcg inhaler Inhale 1 puff daily 04/16/202006/16 documented as of this encounter Orders Appointment Requests Count Last Ordered Date Fi rst Ordered Date [facility] CLINIC APPOINTMENT REQUEST 2 024 06/29/2022 documented in this encounter Care Teams Ship'S Engineer Relationship Specialty Start Date End Date Almita Smallwood MD [address] [place] [address] PCP - General 04/17/20 02/14/23 Almita Smallwood MD [address] [place] [address] Internal Medicine 04/17/20 [place] [address] [address] [place] [address] Surgeon General Surgery 04/07/22 documented as of this encounter
--- OUTSIDE RECORDS SUMMARY | 2024-04-21 21:38 | XMS_ITS | Encounter Summary ---
Author Organization [facility] Address [address] [place] [address] Care Team Providers Care Head Orthopedic Team Physician Name Role Phone Unavailable Primary Care Provider Unavailabl e Encounter Details Date Type Department Care Team (Latest Contact Info) Description 11/22/2016 1:35 PM CDT - 11/22/2016 11:59 PM CDT Hospital Encounter [facility] [place] A [address] [place] [address] [facility], External Provider [address] [place] [address] Discharge Disposition: Home or Self Care Social [...] 1:35 PM CDT) Narrative 03/04/2020 1:29 PM DRYWALL HANGER HELPER This exam was auto finalized to allow images to be scanned to PACS. External Provider [facility] DIAGNOSTIC IMAGI NG ORDERABLES documented in this encounter Visit Diagnoses Diagnosis Follow up documented in this encounter
--- OUTSIDE RECORDS SUMMARY | 2024-04-21 21:38 | XMS_ITS | Encounter Summary ---
Author Organization [facility] Address [address] [place] [address] Phone Care Team Providers Care Machinery Cleaner Name Role Phone Almita Smallwood MD Primary Care Provider + Almita Smallwood MD Unavailable [phone] Jacek Laura MD Unavailable [phone] Encounter Details Date Type Department Care Team (Late st Contact Info) Description 06/09/2021 Orders Only [facility] Oncology [address] [place] [address] Warner Ray MD [address] [place], [place] [id number] Malignant neoplasm of female breast, unspecified estrogen [...] on file Legal Sex Female 3:38 AM QUARTER SECTION IRONER Gender Identity Not on file Sexual Orientation Not on file 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[employer]) Not on file Not on file Not on file documented as of this encounter Plan of Treatment Not on file documented as of this encounter Results * Surgical pathology (06/11/2021 10:02 AM QUARTER SECTION IRONER) Tissue (Miscellaneous) 06/11/2021 10:02 AM QUARTER SECTION IRONER 06/11/2021 10:02 AM QUARTER SECTION IRONER Narrative [facility]Y [facility] - 06/17/2021 1:07 PM QUARTER SECTION IRONER EPIC results best viewed via link to PDF [facility] Pathology Consult Service [address], [place] [address] Note to Patients: This report [...] SURGICAL PATHOLOGY REPORT * Consult Report * [facility] is providing an additional review of previously collected tissue. FINAL Patient Name: ??ANITHA HERMOSILLO Bharti Address: ??[address] [facility], ?[place], [place] ??[address] Gender: ??F : ??1960 (Age: 61) Hospital #: ??[id number] Patient Type: ??WU Location: ??Medical Oncology Taken: ??06/11/2021 Received: ??06/11/2021 Accessioned: ??06/11/2021 Reported: ??06/17/2021 Physician(s): Warner Ray M[facility] Department of Pathology [facility] [address] [address] P: [phone] F: [phone] Diagnosis: Consult material received from [place], [place] (OSC [id number]; 01/26/11): Breast, left, 12:00, ultrasound-guided core biopsy ? - Fibrocystic changes with usual ductal hyperplasia, adenosis, apocrine metaplasia and microcysts - Pseudoangiomatous stromal hyperplasia (PASH) - Duct ectasia - No evidence of atypical hyperplasia, in situ carcinoma, or invasive carcinoma ? Consult material received from [place] (OSC [id number]; 10/27/16): Breast, left, upper outer, with calcifications, [...] of invasive carcinoma Consult material received from [place] (OSC: [id number]; 11/23/16): Breast, left, upper outer quadrant, partial [...] invasive carcinoma ?? Consult material received from [place] (OSC: [id number]; 11/07/2018). Lymph nodes, right axillary, excision ? [...] Received for review are two slides labeled [id number], eleven slides labeled [id number], thirteen slides labeled [id number], and two slides labeled [id number], accompanied by the corresponding pathology reports. The materials originated from [place], [place]. Selected slide(s) may be digitally scanned for our files, and all material is returned to the referring institution, along with a copy of our final report. Any testing required for diagnostic purposes was performed in the Department of Pathology and Immunology at [facility], [address] [place] [address] CLIA # [id number] The performance characteristics of the testing cited in this report (if any) were determined by the ??[facility] Department of Pathology and Immunology [facility], as part of an ongoing corporate quality manager program and in compliance with federally mandated [...] characteristics determined by the [facility], [facility] Department of Pathology and Immunology. ??It has not been cleared or approved by the U.S. Food and Drug Administration. ??Any test designated as LDT was developed and its performance characteristics determined by [facility]. It has not been cleared or approved by the FDA. This test is used for clinical purposes and should not be regarded as investigational or for research. Report images and/or scanned reports, if included, only viewable in PDF version of report. us Warner Ray MD LAB PATHOLOGY ORD ERABLES Final Result [facility] [address] [facility] [address] [place] [address] documented in this encounter Visit Diagnoses Diagnosis Malignant neoplasm of female breast, unspecified estrogen receptor status, unspecified laterality, unspecified site of breast (HCC)- Primary Malignant neoplasm of female breast, unspecified estrogen receptor status, unspecified laterality, unspecified site of breast (HCC) documented in this encounter Care Teams Machinery Cleaner Relationship Specialty Start Date End Date Almita Smallwood MD [address] [place] [address] PCP - General 04/17/20 02/14/23 Almita Smallwood MD [address] [place] [address] Internal Medicine 04/17/20 Jacek Laura MD [address] [place] [phone] Referring Physician Hematology 06/02/21 06/28/22 documented as of this encounter
--- OUTSIDE RECORDS SUMMARY | 2024-04-21 21:38 | XMS_ITS | Encounter Summary ---
Author Organization [facility] Address [address] [place] [address] Care Team Providers Care Pediatrics Physician Name Role Phone José Guzman MD Primary Care Provider [phone] Encounter Details Date Type Department Care Team (Latest Contact Info) Description 09/21/2017 1:30 PM CDT - 09/21/2017 11:59 PM CDT Hospital Encounter [facility] [place] A [address] [place] [address] [facility], External Provider [address] [place] [address] Discharge Disposition: Home or Self Care Social [...] 1:30 PM CDT) Narrative 03/04/2020 1:29 PM TALENT SOURCER This exam was auto finalized to allow images to be scanned to PACS. External Provider [facility] DIAGNOSTIC IMAGI NG ORDERABLES documented in this encounter Visit Diagnoses Diagnosis Follow up documented in this encounter Care Teams Pediatrics Physician Relationship Specialty Start Date End Date José Guzman MD [address] [place] [address] PCP - General Family Practice 01/07/17 03/13/18 documented as of this encounter
--- OUTSIDE RECORDS SUMMARY | 2024-04-21 21:38 | XMS_ITS | Encounter Summary ---
Author Organization [facility] Address [address] [place] [address] Care Team Providers Care Supervisor Chassis Assembly Name Role Phone Almita Smallwood MD Unavailable [phone] Yuri Rocha MD Unavailable [phone] Boone Dunham DO Primary Care Provider [phone] Reason for Referral * MRI/CAT/PET Scan (Routine) - Closed Specialty Diagnoses / Procedures Referred By Tati campos Referred To Contact Radiology Diagnoses Dense breast tissue on mammogram Breast cancer screening, high risk patient Family history of breast cancer Procedures MRI Breast Bilateral W WO Contrast Snow Calabrese MD [address] [place] [address] Phone: tel: fax: [address] [address] Referral ID Status Reason Start Date Expiration Date Visits Re quested Visits Authorized [id number] Closed 11/04/2022 12/04/2023 1 1 Reason for Visit * MRI/CAT/PET Scan (Routine) - Closed Specialty Diagnoses / Procedures Referred By Tati campos Referred To Contact Radiology Diagnoses Dense breast tissue on mammogram Breast cancer screening, high risk patient Family history of breast cancer Procedures MRI Breast Bilateral W WO Contrast Snow Calabrese MD [address] [place] [address] Phone: tel: fax: [address] [address] Referral ID Status Reason Start Date Expiration Date Visits Re quested Visits Authorized [id number] Closed 11/04/2022 12/04/2023 1 1 Encounter Details Date Type Department Care Team (Latest Contact Info) Description 02/18/2023 9:44 AM CDT - 02/18/2023 11:59 PM CDT Hospital Encounter [address] [id number] Dense breast tissue on mammogram; Breast cancer [...] Legal Sex Female 3:38 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 Gender Identity Not on file Sexual Orientation Not on file 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 Job End Date [place] 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[employer]) Not on file Not on file Not [...] AM T: ??02/18/2023 11:24 AM Report ID: [id number] Reading Location: ??MAMMMHE Narrative 02/18/2023 11:24 AM [...] 06/2022 documented in this encounter Care Teams Supervisor Chassis Assembly Relationship Specialty [place] [address] [address], [place] [id number] PCP - General Internal Medicine 02/15/23 12/08/23 Almita Smallwood MD [address] [place] [address] Internal Medicine 04/17/20 [place] [address] [address], [place] [id number] Surgeon General Surgery 04/07/22 documented as of this encounter
--- OUTSIDE RECORDS SUMMARY | 2024-04-21 21:38 | XMS_ITS | Encounter Summary ---
Author Organization [facility] Address [address] [place] [address] Phone Care Team Providers Care Fry Cook Name Role Phone Almita Smallwood MD Primary Care Provider + Almita Smallwood MD Unavailable [phone] Yuri Rocha MD Unavailable [phone] Reason for Referral * Diagnostic Imaging (Routine) - Closed Specialty Diagnoses / Procedures Referred By Tati campos Referred To Contact Diagnoses Encounter for screening mammogram for breast cancer Procedures Screening Mammogram Bilateral W Chris Snow Calabrese MD [address] [place] [address] Phone: tel: fax: [address] [address] Referral ID Status Reason Start Date Expiration Date Visits Re quested Visits Authorized [id number] Closed 11/04/2022 12/04/2023 1 1 * MRI/CAT/PET Scan (Routine) - Closed Specialty Diagnoses / Procedures Referred By Tati campos Referred To Contact Radiology Diagnoses Dense breast tissue on mammogram Breast cancer screening, high risk patient Family history of breast cancer Procedures MRI Breast Bilateral W WO Contrast Snow Calabrese MD [address] [place] [address] Phone: tel: fax: [facility] [address] [place] [address] Referral ID Status Reason Start Date Expiration Date Visits Re quested Visits Authorized [id number] Closed 11/04/2022 12/04/2023 1 1 Encounter Details Date Type Department Care Team (Late st Contact Info) Description 11/04/2022 Orders Only [facility] Oncology [address] [facility] [address] [place] [address] Estephania Clement, MARYAM Dense breast [...] on file Legal Sex Female 3:38 AM IRONER OR PRESSER Gender Identity Not on file Sexual Orientation Not on file 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 For women [...] AM T: ??02/18/2023 11:24 AM Report ID: [id number] Reading Location: ??MAMMMHE Narrative 02/18/2023 11:24 AM [...] cancer documented in this encounter Care Teams Fry Cook Relationship Specialty Start Date End Date Almita Smallwood MD [address] [place] [address] PCP - General 04/17/20 02/14/23 Almita Smallwood MD [address] [place] [address] Internal Medicine 04/17/20 [place] [address] [address] [facility] [address], [place] [address] Surgeon General Surgery 04/07/22 documented as of this encounter
--- OUTSIDE RECORDS SUMMARY | 2024-04-21 21:38 | XMS_ITS | Referral Summary ---
Author Organization [place] [id number] [facility] Address [address] [place] [address] Care Team Providers Care Cartridge Feeder Name Role Phone Almita Smallwood MD Unavailable [phone] Yuri Rocha MD Unavailable [phone] Angela Garza NP Primary Care Provider [phone] Encounters Date Type Department Care Team Description 02/15/2024 Orders Only [facility] Oncology [address] [facility] [address] [place] [address] Snow Calabrese MD 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 breast; Breast neoplasm, Tis (LCIS), left; Family history of breast cancer 02/15/2024 Orders Only [facility] Oncology [address] [facility] [address] [place] [address] Snow Calabrese MD Family history [...] (04/06/2022): Added automatically from request for surgery [id number] Breast neoplasm, Tis (LCIS), left 08/06/2021 Breast [...] on file Legal Sex Female 3:38 AM DISTANCE LEARNING UNIT LEADER Gender Identity Not on file Sexual Orientation Not on file 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[employer]) Not on file Not on file Not [...] cm (5' 5 ) 04/07/2022 8:39 AM DISTANCE LEARNING UNIT LEADER Body Mass Index 25.56 04/07/2022 8:39 AM DISTANCE LEARNING UNIT LEADER Plan of Treatment Not on file Procedures [...] HIGH RISK HPV Routine 04/16/2020 9:07 AM DISTANCE LEARNING UNIT LEADER from Last 3 Months or Most Recently Relevant to Health Maintenance Results * [facility] BRACAnalysis and MyRisk / Note 2 Tests (M0001) (02/15/2024 8:26 AM CDT) Bracanalysis and Myrisk / Note 2 Tests Significant Clinical History Finding 02/23/2024 4:04 PM DISTANCE LEARNING UNIT LEADER [facility] [facility] Comment: BRACANALYSIS AND MYRISK / NOTE 2 TESTS See PDF for complete results. CLINICAL HISTORY ANALYSIS: BASED ON THE CLINICAL HISTORY PROVIDED, MODIFIED MEDICAL MANAGEMENT GUIDELINES IDENTIFIED NO VARIANT(S) OF UNCERTAIN SIGNIFICANCE (VUS) IDENTIFIED Blood specimen (specimen) (Blood, Venous) 02/15/2024 8:26 AM CDT 02/16/2024 3:16 PM CDT Snow Calabrese MD LAB GENETIC TESTING Final R esult [facility] [address] [place] [address] * Screening Mammogram Bilateral W Chris (12/09/2023 [...] age 42, based on guidelines of the [employer] (ACR Practice Parameter for the Performance of Screening and Diagnostic Mammography) and [employer] Gynec[employer]. For women [...] to High Risk HPV (04/16/2020 9:07 AM DISTANCE LEARNING UNIT LEADER) 04/16/2020 9:07 AM DISTANCE LEARNING UNIT LEADER 04/16/2020 9:07 AM DISTANCE LEARNING UNIT LEADER Narrative [facility] PATH[facility] - 04/21/2020 10:13 AM DISTANCE LEARNING UNIT LEADER [facility] Department of Pathology [id number] [place] [address] Final Report with Addendum Patient Name: ??ANITHA HERMOSILLO Address: ??[address],, ?? [place] [address] Gender: ??F : ??1960 (Age: 60) Service: ??Laboratory Location: ??Lab Hospital #: ??[id number] Patient Type: ??CH Ref Lab Taken: ??04/16/2020 Received: ??04/16/2020 Accessioned:: ??04/17/2020 Reported: ??04/21/2020 Physician(s): Almita Obando Diagnosis: Source of Specimen: ? Imaged Thinprep Pap Test plus HPV - Auxiliary Power Equipment Operator Cytologic Material Specimen Adequacy: ?- Specimen satisfactory [...] Imaged Thinprep Pap Test plus HPV - Auxiliary Power Equipment Operator Cytologic Material Clinical History: Last Menstrual Period: [...] determined by the Surgical Pathology Department at [facility] as part of an ongoing manufacturing quality [...] characteristics determined by the Surgical Pathology Department [facility]. ??It has not been cleared or approved by the U. S. Food and Drug Administration. Almita Obando MD LAB CYTOLOGY ORDERABLES Final Result [facility] [address] [address] from Last 3 Months or Most Recently Relevant to Health Maintenance Insurance [facility] CHOICE PLUS ANTHEM ACCESS CHOICE [id number] ANTHEM ACCESS CHOICE Care Teams Cartridge Feeder Relationship Specialty Start Date End Date Angela Garza NP [address] [place] [address] PCP - General Cardiovascular Disease 12/09/23 Almita Smallwood MD [address] [place] [address] Internal Medicine 04/17/20 [place] [address] [address] [facility] [address] [address] Surgeon General Surgery 04/07/22
--- OUTSIDE RECORDS SUMMARY | 2024-04-21 21:38 | XMS_ITS | Encounter Summary ---
Author Organization [facility] Healthcare Address [address] [place] [address] Care Team Providers Care Pcu Rn Name Role Phone Almita Smallwood MD Primary Care Provider + Almita Smallwood MD Unavailable [phone] Yuri Rocha MD Unavailable [phone] Reason for Referral * Diagnostic Imaging (Routine) - Closed Specialty Diagnoses / Procedures Referred By Tati campos Referred To Contact Diagnoses Encounter for screening mammogram for breast cancer Procedures Screening Mammogram Bilateral W Snow Noe MD [address] [place] [address] Phone: tel: fax: [address] [address] Referral ID Status Reason Start Date Expiration Date Visits Re quested Visits Authorized [id number] Closed 08/06/2021 09/05/2022 1 1 Reason for Visit * Diagnostic Imaging (Routine) - Closed Specialty Diagnoses / Procedures Referred By Tati campos Referred To Contact Diagnoses Encounter for screening mammogram for breast cancer Procedures Screening Mammogram Bilateral W Snow Noe MD [address] [facility] [place] [address] Phone: tel: fax: [address] [address] Referral ID Status Reason Start Date Expiration Date Visits Re quested Visits Authorized [id number] Closed 08/06/2021 09/05/2022 1 1 Encounter Details Date Type Department Care Team (Latest Contact Info) Description 06/29/2022 7:30 AM CDT - 06/29/2022 11:59 PM CDT Hospital Encounter [facility] Imaging and Radiology [address] [place] [address] GuanakitoSnow ojeda MD [address] [place] [address] Encounter for screening mammogram for breast cancer [...] on file 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 [...] cancer documented in this encounter Care Teams Pcu Rn Relationship Specialty Start Date End Date Almita Smallwood MD [address] [place] [address] PCP - General 04/17/20 02/14/23 Almita Smallwood MD [address] [place] [address] Internal Medicine 04/17/20 [place] [address] [address] [facility] [address] [place], [place] [id number] Surgeon General Surgery 04/07/22 documented as of this encounter
--- OUTSIDE RECORDS SUMMARY | 2024-04-21 21:38 | XMS_ITS | Encounter Summary ---
Author Organization [facility] Healthcare Address [address] [place] [address] Care Team Providers Care Audio Engineer Name Role Phone Almita Smallwood MD Primary Care Provider + Almita Smallwood MD Unavailable [phone] Jacek Laura MD Unavailable [phone] Reason for Referral * MRI/CAT/PET Scan (Routine) - Closed Specialty Diagnoses / Procedures Referred By Tati campos Referred To Contact Radiology Diagnoses Family history of breast cancer Procedures MRI Breast Bilateral W WO Contrast Snwo Calabrese MD [address] [place] [address] Phone: tel: fax: [address] [address] Referral ID Status Reason Start Date Expiration Date Visits Re quested Visits Authorized [id number] Closed 08/06/2021 09/05/2022 1 1 Reason for Visit * MRI/CAT/PET Scan (Routine) - Closed Specialty Diagnoses / Procedures Referred By Tati campos Referred To Contact Radiology Diagnoses Family history of breast cancer Procedures MRI Breast Bilateral W WO Contrast Snow Calabrese MD [address] [place] [address] Phone: tel: fax: [address] [place] [address] Referral ID Status Reason Start Date Expiration Date Visits Re quested Visits Authorized [id number] Closed 08/06/2021 09/05/2022 1 1 Encounter Details Date Type Department Care Team (Latest Contact Info) Description 12/17/2021 7:00 AM CDT - 12/17/2021 11:59 PM CDT Hospital Encounter [facility] [place] [address] DorrSnow ojeda MD [address] [place] [address] Family history of breast cancer Discharge Disposition: [...] on file 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 Gender Identity Not on file Sexual Orientation Not on file 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
--- OUTSIDE RECORDS SUMMARY | 2024-04-21 21:38 | XMS_ITS | Encounter Summary ---
Author Organization [facility] Address [address] [place] [address] Care Team Providers Care Chute Builder Name Role Phone José Guzman MD Primary Care Provider [phone] Encounter Details Date Type Department Care Team (Late st Contact Info) Description 11/21/2017 Orders Only [facility] BREAST SURGERY [address] [place] [address] Laverne Thorpe DO NO ADDRESS [...] osteoporosis documented in this encounter Care Teams Chute Builder Relationship Specialty Start Date End Date José Guzman MD [address] [place] [address] PCP - General Family Practice 01/07/17 03/13/18 documented as of this encounter
--- OUTSIDE RECORDS SUMMARY | 2024-04-21 21:38 | XMS_ITS | Encounter Summary ---
Author Organization [facility] School of [facility] Address [address] [place] [address] Phone Care Team Providers Care Vp Foundation Name Role Phone Almita Smallwood MD Unavailable Yuri Rocha MD Unavailable [phone] Angela Garza NP Primary Care Provider [phone] Encounter Details Date Type Department Care Team (Late st Contact Info) Description 02/15/2024 Orders Only [facility] Physicians [facility] Oncology [address] [facility] [place] [address] Snow Calabrese MD [address] [place] [address] Family history of breast cancer (Primary Dx); [...] on file 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 Gender Identity Not on file Sexual Orientation Not on file 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
--- OUTSIDE RECORDS SUMMARY | 2024-04-21 21:38 | XMS_ITS | Encounter Summary ---
Author Organization [facility] Address [address] [place] [address] Phone Care Team Providers Care Hot Box Checker Name Role Phone Almita Smallwood MD Primary Care Provider + Almita Smallwood MD Unavailable [phone] Jacek Laura MD Unavailable [phone] Reason for Visit * Consultation (Routine) - Closed Specialty Diagnoses / Procedures Referred By Tati campos Referred To Contact General Surgery Diagnoses Sebaceous cyst Almita Smallwood MD [address] [place] [address] Phone: tel: [place]: [place] [address] [address] [facility] [address] [address] Phone: tel: fax: Referral ID Status Reason Start Date Expiration Date V isits Requested Visits Authorized [id number] Closed Specialty Services Required 03/18/2022 04/17/2023 1 1 Encounter Details Date Type Department Care Team (Late st Contact Info) Description 03/31/2022 11:00 AM CHECK PROCESSING CLERK Office Visit [facility] Surgery [address] [facility] [address] [address] [place] [address] [address] [facility] [address] [address] Sebaceous cyst Social History Tobacco [...] on file 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 PROCESSING 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 Gender Identity Not on file Sexual Orientation Not on file 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[employer]) Not on file Not on file Not on file documented as of this encounter Last Filed Vital Signs Vital Sign Reading Time Taken Comments Blood Pressure 113/78 03/31/2022 11:05 AM CHECK PROCESSING CLERK Pulse 89 03/31/2022 11:05 AM CHECK PROCESSING CLERK Temperature - - Respiratory Rate - - Oxygen Saturation - - Inhaled Oxygen Concentration - - Weight 69.4 kg (153 lb) 03/31/2022 11:05 AM CHECK PROCESSING CLERK Height 167.6 cm (5' 6 ) 03/31/2022 11:05 AM CHECK PROCESSING CLERK Body Mass Index 24.69 03/31/2022 11:05 AM CHECK PROCESSING CLERK documented in this encounter Progress Notes * [...] and written informed consent has been obtained. K PROCESSING CLERK documented in this encounter Plan of Treatment Not on file documented as of this encounter Visit Diagnoses Diagnosis Sebaceous cyst documented in this encounter Orders Outpatient Referral Count Last Ordered Date Fir st Ordered Date AMB REFERRAL TO GENERAL SURGERY 1 2 documented in this encounter Care Teams Hot Box Checker Relationship Specialty Start Date End Date Almita Smallwood MD [address] [place] [address] PCP - General 04/17/20 02/14/23 Almita Smallwood MD [address] [place] [address] Internal Medicine 04/17/20 Jacek Laura MD [address] [address] Referring Physician Hematology 06/02/21 06/28/22 documented as of this encounter
--- OUTSIDE RECORDS SUMMARY | 2024-04-21 21:38 | XMS_ITS | Encounter Summary ---
Author Organization [facility] Address [address] [place] [address] Care Team Providers Care Speech Correction Assistant Name Role Phone José Guzman MD Primary Care Provider [phone] Encounter Details Date Type Department Care Team ([facility] st Contact Info) Description 11/21/2017 Orders Only [facility] Oncology and Hematology - [place] [address] [facility] [address] [place] [address] Jacek Laura MD [address] [facility] [address] [place] [address] Ductal carcinoma in situ (DCIS) [...] breast documented in this encounter Care Teams Speech Correction Assistant Relationship Specialty Start Date End Date José Guzman MD [address] [place] [address] PCP - General Family Practice 01/07/17 03/13/18 documented as of this encounter
--- OUTSIDE RECORDS SUMMARY | 2024-04-21 21:38 | XMS_ITS | Encounter Summary ---
Author Organization [facility] Address [address] [place] [address] Care Team Providers Care Manager Student Services Name Role Phone José Guzman MD Primary Care Provider [phone] Reason for Visit * Reason Comments Establish Care Encounter Details Date Type Department Care Team ([facility] Contact Info) Description 01/07/2017 10:30 AM CDT Office Visit [facility] Oncology and Hematology - [place] [address] [facility] [address] [place] [address] Jacek Laura MD [address] [facility] [address] [place] [address] Ductal carcinoma in situ (DCIS) [...] dysuria; no frequency; no hesitancy; no hematuria TAR HEATER OPERATOR: Musculosketetal: no bone pain; no arthralgia; no [...] partial mastectomy done on November 22, 2016 ER/[place] strongly positive. Oncotype DX for DCIS showed [...] of the total time spent counseling patient [id number]. CC:Laverne Thorpe DO? documented in this encounter [...] * FSH (01/07/2017 11:40 AM CDT) Pathologist [facility] FSH 91.8 mIU/mL [facility] Comment: ?Adult Female: ?Follicular phase ?3.5 - ??12.5 ?Ovulation phase ? 4.7 - ??21.5 ?Luteal phase ?1.7 - ?? 7.7 ?Postmenopausal ? 25.8 - 134.8 Blood 01/07/2017 11:4 0 AM CDT 01/07/2017 Narrative [facility] - 01/08/2017 4:11 AM CDT Performed at: ??01 - [facility] [address] ??[id number] Delivery Recruiter: Vish Reddy PhD, Phone: ??[phone] Jacek Laura MD CHEMISTRY ORDERABLES [facility] * ESTRADIOL (01/07/2017 11:40 AM CDT) Pathologist [facility] ESTRADIOL 104.8 pg/mL [facility] Comment: ?Adult [...] 4:11 AM CDT Performed at: ??01 - [address], [place], [place] ??[id number] Delivery Recruiter: Vish Reddy PhD, Phone: ??[phone] Jacek Laura MD CHEMISTRY ORDERABLES [facility] [...] from your office. In accordance with the [facility] Ambiguous Test Code Policy dated October 2002, we have assigned CBC with Differential/Platelet, Test Code #075481 to this request. If this is not the testing you wished to receive on this specimen, please contact the [facility] Client Inquiry/ Technical Services Department to clarify the test order. We appreciate your business. Blood 01/07/2017 11:4 0 AM CDT 01/07/2017 Narrative [facility] - 01/08/2017 1:05 AM CDT Performed at: ??01 - [address] ??[id number] Delivery Recruiter: Vish Reddy PhD, Phone: ??[phone] Jacek Laura MD HEMATOLOGY ORDERABLE S [facility] [...] AM CDT Performed at: ??01 - [facility] [address] ??[id number] Delivery Recruiter: Vish Reddy PhD, Phone: ??[phone] Jacek Laura MD CHEMISTRY ORDERABLES [facility] documented in this encounter Visit Diagnoses Diagnosis 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 breast documented in this encounter Care Teams Manager Student Services Relationship Specialty Start Date End Date José Guzman MD [address] [place] [address] PCP - General Family Practice 01/07/17 03/13/18 documented as of this encounter
--- OUTSIDE RECORDS SUMMARY | 2024-04-21 21:38 | XMS_ITS | Encounter Summary ---
Author Organization [facility] Address [address] [place] [address] Care Team Providers Care Graphic Illustrator Name Role Phone Unavailable Primary Care Provider Unavailabl e Encounter Details Date Type Department Care Team (Latest Contact Info) Description 10/05/2016 1:30 PM CDT - 10/05/2016 11:59 PM CDT Hospital Encounter [facility] [place] A [address] [place] [address] [facility], External Provider [address] [place] [address] Discharge Disposition: Home or Self Care Social [...] Associated Diagnosis Comments MAMMO PRIOR STUDY Routine 10/05/2016 1:3 0 PM CDT Follow up documented in this encounter Results * MAMMO PRIOR STUDY (10/05/2016 1:30 PM CDT) Narrative 03/04/2020 1:26 PM SHEAR GRINDER OPERATOR HELPER This exam was auto finalized to allow images to be scanned to PACS. External Provider [facility] DIAGNOSTIC IMAGI NG ORDERABLES documented in this encounter Visit Diagnoses Diagnosis Follow up documented in this encounter
--- OUTSIDE RECORDS SUMMARY | 2024-04-21 21:38 | XMS_ITS | Encounter Summary ---
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 us Not In File Miscellaneous IMG MAMMO PROCEDURES F inal Result [facility] documented in this encounter Visit Diagnoses Not on filedocumented in this encounter Care Teams Billing Spec Relationship Specialty Start Date End Date Almita Smallwood MD [address] [place] [address] PCP - General 04/17/20 02/14/23 Almita Smallwood MD [address] [place] [address] Internal Medicine 04/17/20 Jacek Laura MD [address] [address] Referring Physician Hematology 06/02/21 06/28/22 documented as of this encounter
--- OUTSIDE RECORDS SUMMARY | 2024-04-21 21:38 | XMS_ITS | Encounter Summary ---
Author Organization [facility] Address [address] [place] [address] Care Team Providers Care Conservation Or Heritage Architect Name Role Phone José Guzman MD Primary Care Provider [phone] Reason for Referral * Outpatient Services (Routine) - Closed Specialty Diagnoses / Procedures Referred By Tati t Referred To Contact Diagnoses 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 breast Procedures MAMMO SCREEN BILAT W OR WO CAD Jacek Laura MD [address] [place] [address] [place] [address] [place] [address] Referral ID Status Reason Start Date Expiration Date Visits Requested Visits Authorized [id number] Closed Ordering Department To Schedule 09/07/2017 10/08/2018 1 1 Reason for Visit * Reason Comments Follow Up none Encounter Details Date Type Department Care Team ([facility] Contact Info) Description 09/07/2017 9:00 AM CDT Office Visit [facility] Oncology and Hematology - [place] [address] [place] [address] [facility] [address] [place] [address] Jacek Laura MD [address] [place] [address] Ductal carcinoma in situ (DCIS) [...] partial mastectomy done on November 22, 2016 ER/[place] strongly positive. Oncotype DX for DCIS showed [...] Primary documented in this encounter Care Teams Conservation Or Heritage Architect Relationship Specialty Start Date End Date José Guzman MD [address] [place] [address] PCP - General Family Practice 01/07/17 03/13/18 documented as of this encounter
--- OUTSIDE RECORDS SUMMARY | 2024-04-21 21:38 | XMS_ITS | Encounter Summary ---
Author Organization [facility] Address [address] [place] [address] Care Team Providers Care Memory Care Program Director Name Role Phone Unavailable Primary Care Provider Unavailabl e Encounter Details Date Type Department Care Team (Latest Contact Info) Description 08/28/2015 1:30 PM CDT - 08/28/2015 11:59 PM CDT Hospital Encounter [facility] [place] A [address] [place] [address] [facility], External Provider [address] [place] [address] Discharge Disposition: Home or Self Care Social [...] 1:30 PM CDT) Narrative 03/04/2020 1:26 PM PUMPER HAND This exam was auto finalized to allow images to be scanned to PACS. External Provider [facility] DIAGNOSTIC IMAGI NG ORDERABLES documented in this encounter Visit Diagnoses Diagnosis Follow up documented in this encounter
--- OUTSIDE RECORDS SUMMARY | 2024-04-21 21:38 | XMS_ITS | Clinical Summary ---
Author Organization [place] [id number] [facility] Address [address] [place] [address] Care Team Providers Care Tread Cutter Name Role Phone Almita Smallwood MD Unavailable Yuri Rocha MD Unavailable [phone] Angela Garza NP Primary Care Provider [phone] Allergies No known active allergies Medications collagen, hydrolysate, bovine, (COLLAGEN, HYDR, BOVINE,, BULK, MISC) by [facility]Non-Drug; Combo Route) route. Active levocetirizine (XYZAL) 5 [...] (04/06/2022): Added automatically from request for surgery [id number] Breast neoplasm, Tis (LCIS), left 08/06/2021 Breast [...] Department Care Team Description 02/15/2024 Orders Only [facility] Oncology [address] [place] [address] [address] [place] [address] Snow Calabrese MD 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 breast; Breast neoplasm, Tis (LCIS), left; Family history of breast cancer 02/15/2024 Orders Only [facility] Oncology [address] [facility] [address] [place] [address] Snow Calabrese MD Family history [...] Left For Stage 0 breast CA at [facility] in [place], [place]. No chemorx or XRT, only Tamoxifen. 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 Not on file Not [...] cm (5' 5 ) 04/07/2022 8:39 AM SUPPORT REPRESENTATIVE Body Mass Index 25.56 04/07/2022 8:39 AM SUPPORT REPRESENTATIVE Plan of Treatment Health Maintenance Due Date [...] HIGH RISK HPV Routine 04/16/2020 9:07 AM SUPPORT REPRESENTATIVE from Last 3 Months or Most Recently Relevant to Health Maintenance Results * [facility] BRACAnalysis and MyRisk / Note 2 Tests (M0001) (02/15/2024 8:26 AM CDT) Pathologist [facility] Bracanalysis and Myrisk / Note 2 Tests Significant Clinical History Finding 02/23/2024 4:04 PM SUPPORT REPRESENTATIVE [employer] [facility] Comment: BRACANALYSIS AND MYRISK / NOTE 2 TESTS See PDF for complete results. CLINICAL HISTORY ANALYSIS: BASED ON THE CLINICAL HISTORY PROVIDED, MODIFIED MEDICAL MANAGEMENT GUIDELINES IDENTIFIED NO VARIANT(S) OF UNCERTAIN SIGNIFICANCE (VUS) IDENTIFIED Blood specimen (specimen) (Blood, Venous) 02/15/2024 8:26 AM CDT 02/16/2024 3:16 PM CDT Snow Calabrese MD LAB GENETIC TESTING Final R esult [facility] [address] [place] [address] * Screening Mammogram Bilateral W Chris (12/09/2023 [...] age 40, based on guidelines of the [place] [employer] (ACR Practice Parameter for the Performance of Screening and Diagnostic Mammography) and [place] [employer]. For women [...] WO Contrast 06/29/2022 Screening Mammogram Bilateral W Crhis 12/17/2021 MRI Breast Bilateral W WO Contrast [...] to High Risk HPV (04/16/2020 9:07 AM SUPPORT REPRESENTATIVE) 04/16/2020 9:07 AM SUPPORT REPRESENTATIVE 04/16/2020 9:07 AM SUPPORT REPRESENTATIVE Narrative [facility] - 04/21/2020 10:13 AM SUPPORT REPRESENTATIVE [facility] Department of Pathology [address] [place] [address] Final Report with Addendum Patient Name: ??ANURAG LISA Address: ??[address],, ?? [place] [address] Gender: ??F : ??1960 (Age: 60) Service: ??Laboratory Location: ??Lab Hospital #: ??[id number] Patient Type: ?? Ref Lab Taken: ??04/16/2020 Received: ??04/16/2020 Accessioned:: ??04/17/2020 Reported: ??04/21/2020 Physician(s): Almita Obando Diagnosis: Source of Specimen: ? Imaged Thinprep Pap Test plus HPV - Spouting Installer Cytologic Material Specimen Adequacy: ?- Specimen satisfactory [...] Imaged Thinprep Pap Test plus HPV - Spouting Installer Cytologic Material Clinical History: Last Menstrual Period: [...] determined by the Surgical Pathology Department at [facility] as part of an ongoing quality assurance supervisor chassis program and in compliance with federally mandated [...] characteristics determined by the Surgical Pathology Department [facility]. ??It has not been cleared or approved by the U. S. Food and Drug Administration. Almita Obando MD LAB CYTOLOGY ORDERABLES Final Result [facility] [address] [address] from Last 3 Months or Most Recently Relevant to Health Maintenance Insurance [facility] CHOICE PLUS ANTHEM ACCESS CHOICE ANTHEM ACCESS CHOICE Care Teams Tread Cutter Relationship Specialty Start Date End Date Angela Garza NP [address] [place] [address] PCP - General Cardiovascular Disease 12/09/23 Almita Smallwood MD [address] [place] [address] Internal Medicine 04/17/20 [place] [address] [address] [address] Surgeon General Surgery 04/07/22
--- OUTSIDE RECORDS SUMMARY | 2024-04-21 21:38 | XMS_ITS | Encounter Summary ---
Author Organization [facility] Address [address] [place] [address] Care Team Providers Care Rn Transition Name Role Phone Almita Smallwood MD Primary Care Provider + Reason for Referral * Eval and Treat (Routine) - Closed Specialty Diagnoses / Procedures Referred By Tati t Referred To Contact Obstetrics and Gynecology Diagnoses Encounter for medical examination to establish care Almita Smallwood MD [address] [place] [address] Maribell Brown MD [address] [place] [address] [place] [phone] Referral ID Status Reason Start Date Expiration Date V isits Requested Visits Authorized [id number] Closed CRS To Schedule (STL) 03/14/2018 03/15/2019 1 1 LE EQUIPMENT SERVICER * Eval and Treat (Routine) - Closed Specialty Diagnoses / Procedures Referred By Contac t Referred To Contact Surgery Diagnoses Lipoma of back Almita Smallwood MD [address] [place] [address] Referral ID Status Reason Start Date Expiration Date V isits Requested Visits Authorized [id number] Closed CRS To Schedule (STL) 03/14/2018 03/14/2019 1 1 LE EQUIPMENT SERVICER Reason for Visit * Reason Comments Establish Care Dizziness Elbow Pain Cyst on back Encounter Details Date Type Department Care Team (Late st Contact Info) Description 03/14/2018 2:20 PM MOBILE EQUIPMENT SERVICER Office Visit [facility] Internal Medicine - [id number] [place] [address] Almita Smallwood MD [address] [place] [address] Encounter for medical examination to [...] Comments Blood Pressure 120/76 03/14/2018 2:18 PM MOBILE EQUIPMENT SERVICER Pulse 76 03/14/2018 2:18 PM MOBILE EQUIPMENT SERVICER Temperature 36.7 ??C (98 ??F) 03/14/2018 2:18 PM MOBILE EQUIPMENT SERVICER Respiratory Rate 16 03/14/2018 2:18 PM MOBILE EQUIPMENT SERVICER Oxygen Saturation - - Inhaled Oxygen Concentration - - Weight 64.4 kg (142 lb) 03/14/2018 2:18 PM MOBILE EQUIPMENT SERVICER Height 167.6 cm (5' 6 ) 03/14/2018 2:18 PM MOBILE EQUIPMENT SERVICER Body Mass Index 22.92 03/14/2018 2:18 PM MOBILE EQUIPMENT SERVICER documented in this encounter Progress Notes * [...] Tamoxifen Had colonoscopy in March 2017 at [place] Past Medical History: Past Medical History: Diagnosis [...] 25 HYDROXY; Future - AMB REFERRAL TO HUMAN SERVICES ASSISTANT - CBC WITH DIFFERENTIAL - COMPREHENSIVE METABOLIC [...] Follow up in 6mo Almita Smallwood MD [facility] Internal Medicine- [facility] LE EQUIPMENT SERVICER documented in this encounter Miscellaneous Notes * Patient Instructions - Almita Smallwood MD - 03/14/2018 3:14 PM MOBILE EQUIPMENT SERVICER Images from the original note were not included. Central Referral Scheduling will be contacting you by phone to schedule your [facility] If you have not received a call within one business day, please call [phone] or , Tuesday through Tuesday between 8 a.m. and 5 p.m. To schedule your appointment. Looklet. Dizziness: Care Instructions Your Care Instructions Dizziness [...] Where can you learn more? Go to https://www.[employer].net/patientEd Enter Q823 in the search box to learn more about Dizziness: Care Instructions. Current as of: March 07, 2017 Content Version: 11.8 ?? [id number] [employer]. Care instructions adapted under license by your healthcare professional. If you have questions about a medical condition or this instruction, always ask your healthcare professional. These instructions may not represent the values of this healthcare organization. [employer] disclaims any warranty or liability for your use of this information. Looklet. Lightheadedness or Faintness: Care Instructions Your Care [...] irregular heartbeat. After you call 911, the tag machine operator may tell you to chew 1 adult-strength or 2 to 4 low-dose aspirin. Wait for an ambulance. Do not try to drive yourself. ??Watch closely for changes in your health, and be sure to contact your doctor if: ? Your lightheadedness gets worse or does not get better with home care. Where can you learn more? Go to https://www.[employer].net/patientEd Enter X578 in the search box to learn more about Lightheadedness or Faintness: Care Instructions. Current as of: March 07, 2017 Content Version: 11.8 ?? [id number] [employer]. Care instructions adapted under license by your healthcare professional. If you have questions about a medical condition or this instruction, always ask your healthcare professional. These instructions may not represent the values of this healthcare organization. [employer] disclaims any warranty or liability for your use of this information. LE EQUIPMENT SERVICER documented in this encounter Plan of Treatment Scheduled Referrals Name Type Priority Associated Diagnoses Orde r Schedule AMB REFERRAL TO GENERAL SURGERY Outpatient Referral Routine Lipoma of back Ordered: 03/14/2018 AMB REFERRAL TO HUMAN SERVICES ASSISTANT Outpatient Referral Routine Encounter for medical examination to establish care Ordered: 03/14/2018 documented as of this encounter Procedures Procedure Name Priority Date/Time Associated Diagnosis Comments CBC WITH DIFFERENTIAL Routine 03/14/2018 3:17 PM MOBILE EQUIPMENT SERVICER Encounter for medical examination to establish care VITAMIN D 25 HYDROXY Routine 03/14/2018 3:17 PM MOBILE EQUIPMENT SERVICER Encounter for medical examination to establish care COMPREHENSIVE METABOLIC PANEL Routine 03/14/2018 3:17 PM MOBILE EQUIPMENT SERVICER Encounter for medical examination to establish care documented in this encounter Results * VITAMIN D 25 HYDROXY (03/14/2018 3:17 PM MOBILE EQUIPMENT SERVICER) VITAMIN D TOTAL (25OH) 66 30 - 100 ng/mL 03/14/2018 11:[address] [facility] Comment:Quantitated by kari kaplan. Blood Venipuncture / Unknown 03/14/2018 3:17 PM MOBILE EQUIPMENT SERVICER 03/14/2018 3:28 PM MOBILE EQUIPMENT SERVICER Narrative [facility] - 03/14/2018 11:53 PM MOBILE EQUIPMENT SERVICER Interpretive Data Chart: Deficient: 0 - 20 ng/mL Insufficient: 21 - 29 ng/mL Sufficient: 30 - 100 ng/mL Increased Risk of Hypercalciuria: >100 ng/mL Toxic: >150 ng/mL Almita Smallwood MD CHEMISTRY ORDERA BLES [facility] CLIA# [id number] [address] [facility] [facility] [place] [address] * (ABNORMAL) COMPREHENSIVE METABOLIC PANEL (03/14/2018 3:17 PM [facility]) [facility] SODIUM 142 136 - 145 mmol/L 03/14/2018 4:01 PM [facility] POTASSIUM 4.1 3.5 - 5.1 mmol/L 03/14/2018 4:01 PM [facility] CHLORIDE 107 98 - 107 mmol/L 03/14/2018 4:01 PM [facility] CO2 27 22 - 29 mmol/L 03/14/2018 4:01 PM [facility] CALCIUM 9.1 8.6 - 10.2 mg/dL 03/14/2018 4:01 PM [facility] BUN 11 6 - 20 mg/dL 03/14/2018 4:01 PM [facility] CREATININE 0.91(H) 0.50 - 0.90 mg/dL 03/14/2018 4:01 PM [facility] GLUCOSE 91 74 - 99 mg/dL 03/14/2018 4:01 PM [facility] TOTAL PROTEIN 6.5(L) 6.6 - 8.7 g/dL 03/14/2018 4:01 PM [facility] ALBUMIN 3.9 3.5 - 5.2 g/dL 03/14/2018 4:01 PM [facility] BILIRUBIN TOTAL 0.2 <1.2 mg/dL 8 4:01 PM [facility] ALKALINE PHOSPHATASE 55 40 - 129 U/L 03/14/2018 4:01 PM [facility] AST 21 <40 U/L 03/14/2018 4:01 PM [facility] ALT 9 4 - 41 U/L 03/14/2018 4:01 PM [facility] GFR >60 >=60 mL/min/1.7 3 sq meter 03/14/2018 4:01 PM [facility] Comment: eGFR has not been validated for [...] mL/min/1.7 3 sq meter 03/14/2018 4:01 PM [facility] GAP 8 8 - 16 mmol/L 03/14/2018 4:01 PM [facility] Blood Venipuncture / Unknown 03/14/2018 3:17 PM MOBILE EQUIPMENT SERVICER 03/14/2018 3:28 PM MOBILE EQUIPMENT SERVICER Almita Smallwood MD CHEMISTRY ORDERA BLEAlessia [facility] CLIA# [id number] [address] [place] [address] * (ABNORMAL) CBC WITH DIFFERENTIAL (03/14/2018 3:17 PM MOBILE EQUIPMENT SERVICER) WBC 4.2 4.0 - 9.8 K/uL 03/14/2018 3:31 PM [facility] RBC 3.66(L) 3.90 - 4.90 M/uL 03/14/2018 3:31 PM [facility] HEMOGLOBIN 11.4(L) 11.8 - 14.8 g/dL 03/14/2018 3:31 PM [facility] - [facility] HEMATOCRIT 35.4(L) 35.5 - 44.0 % 03/14/2018 3:31 PM [facility] MCV 96.7 82.0 - 99.0 fL 03/14/2018 3:31 PM [facility] MCH 31.1 27.2 - 32.6 pg 03/14/2018 3:31 PM [facility] MCHC 32.2 30.0 - 37.0 g/dL 03/14/2018 3:31 PM [facility] RDW 12.7 11.5 - 14.5 % 03/14/2018 3:31 PM [facility] RDW-STDEV 42.7 37.0 - 54.0 fL 03/14/2018 3:31 PM [facility] PLATELETS 166 140 - 350 K/uL 03/14/2018 3:31 PM [facility] MPV 9.1 9.0 - 13.0 fL 03/14/2018 3:31 PM [facility] - [facility] NEUTROPHILS 62 45 - 70 % 03/14/2018 3:31 PM [facility] - [facility] LYMPHOCYTES 29 16 - 45 % 03/14/2018 3:31 PM [facility] MONOCYTES 8 3 - 13 % 03/14/2018 3:31 PM [facility] EOSINOPHILS 1 <7 % 03/14/2018 3:31 PM [facility] BASOPHILS 1 <3 % 03/14/2018 3:31 PM [facility] NEUTROPHIL ABSOLUTE 2.63 1.90 - 7.00 K/uL 03/14/2018 3:31 PM [facility] LYMPHOCYTE ABSOLUTE 1.21 0.70 - 4.50 K/uL 03/14/2018 3:31 PM [facility] MONOCYTE ABSOLUTE 0.35 0.10 - 1.30 K/uL 03/14/2018 3:31 PM [facility] EOSINOPHIL ABSOLUTE 0.03 <0.80 K/uL 03/14/2018 3:31 PM [facility] BASOPHILS ABSOLUTE 0.02 <0.30 K/uL 03/14/2018 3:31 PM [facility] Blood Venipuncture / Unknown 03/14/2018 3:17 PM MOBILE EQUIPMENT SERVICER 03/14/2018 3:28 PM MOBILE EQUIPMENT SERVICER Almita Smallwood MD HEMATOLOGY ORDER MANUEL Performing Organization Address City/State/[facility] Co de Phone Number [facility] CLIA# [id number] [address] [place] [address] documented in this encounter Visit Diagnoses Diagnosis Encounter for medical examination to establish care- Primary Need for Tdap vaccination Need for prophylactic vaccination with combined ylsnqpnjam-vimhvtz-rgzrotfkg (DTP) vaccine Lipoma of back Lipoma of other specified sites Right elbow pain Pain in joint, upper arm Dizzinesses 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 breast documented in this encounter Additional Health Concerns Assessment Noted Time PHQ-9 Depression Total Score: 1 03/14/20 18 3:00 PM MOBILE EQUIPMENT SERVICER documented as of this encounter Care Teams Rn Transition Relationship Specialty Start Date End Date Almita Smallwood MD [address] [place] [address] PCP - General Internal Medicine 03/14/18 documented as of this encounter
--- OUTSIDE RECORDS SUMMARY | 2024-04-21 21:38 | XMS_ITS | Encounter Summary ---
Author Organization [facility] Address [address] [place] [address] Care Team Providers Care Strategic Debriefing Specialist Name Role Phone José Guzman MD Primary Care Provider [phone] Encounter Details Date Type Department Care Team (Late st Contact Info) Description 10/03/2017 Orders Only [facility] BREAST SURGERY [address], [facility] [address] [place] [address] Provider, Abstract NO ADDRESS ON [...] on filedocumented in this encounter Care Teams Strategic Debriefing Specialist Relationship Specialty Start Date End Date José Guzman MD [address] [place] [address] PCP - General Family Practice 01/07/17 03/13/18 documented as of this encounter
--- OUTSIDE RECORDS SUMMARY | 2024-04-21 21:38 | XMS_ITS | Encounter Summary ---
Author Organization [facility] Address [address] [place] [address] Care Team Providers Care Professor Of Chemical Engineering Name Role Phone Almita Smallwood MD Primary Care Provider + Almita Smallwood MD Unavailable [phone] Jacek Laura MD Unavailable [phone] Yuri Rocha MD Unavailable [phone] Reason for Visit * Auth/Cert Specialty Diagnoses / Procedures Referred By Tati campos Referred To Contact Diagnoses Sebaceous cyst Sebaceous cyst [L72.3] Procedures MO EXC B9 LESION MRGN XCP SK TG T/A/L 0.6-1.0 CM MO EXC B9 LESION MRGN XCP SK TG T/A/L 1.1-2.0 CM MO EXC B9 LESION MRGN XCP SK TG T/A/L 2.1-3.0 CM EXCISION CYST BACK/ 60 min Referral ID Status Reason Start Date Expiration Date Visits Re quested Visits Authorized [id number] 1 1 Encounter Details Date Type Department Care Team (Latest Contact Info) Description 04/07/2022 8:22 AM QUANTITATIVE DEVELOPER - 04/07/2022 12:55 PM QUANTITATIVE DEVELOPER Hospital Encounter [facility] Operating Room [address] [place] [address] [place] [id number] [facility] [address] [place] [address] Sebaceous cyst Discharge Disposition: Discharge [...] on file Legal Sex Female 3:38 AM QUANTITATIVE DEVELOPER Gender Identity Not on file Sexual Orientation Not on file 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[employer]) Not on file Not on file Not on file documented as of this encounter Last Filed Vital Signs Vital Sign Reading Time Taken Comments Blood Pressure 102/56 04/07/2022 11:45 AM QUANTITATIVE DEVELOPER Pulse 64 04/07/2022 11:45 AM QUANTITATIVE DEVELOPER Temperature 36.4 ??C (97.6 ??F) 04/07/2022 11:[address] Respiratory Rate 21 04/07/2022 11:45 AM QUANTITATIVE DEVELOPER Oxygen Saturation 94% 04/07/2022 11:45 AM QUANTITATIVE DEVELOPER Inhaled Oxygen Concentration - - Weight 68.5 kg (151 lb) 04/07/2022 8:39 AM QUANTITATIVE DEVELOPER Height 165.1 cm (5' 5 ) 04/07/2022 8:39 AM QUANTITATIVE DEVELOPER Body Mass Index 25.13 04/07/2022 8:39 AM QUANTITATIVE DEVELOPER documented in this encounter Discharge Instructions * Discharge Instructions* Janene Slater, JUDI - 04/07/2022 11:58 AM QUANTITATIVE DEVELOPER FOLLOW UP CALLS You may get a [...] enough for us, we strive for EXCELLENCE! TITATIVE DEVELOPER * Attachments The following attachments cannot be sent through Care Everywhere. * Moderate Sedation (Discharge Care) (Canadian) * Dermal Cyst Excision (Discharge Care) ([place]) documented in this encounter Medications at Time of Discharge aspirin 81 mg enteric coated tablet Take 81 mg by mouth daily collagen, hydrolysate, bovine, (COLLAGEN, HYDR, BOVINE,, BULK, MISC) by [facility].(Non-[place] g; Combo Route) route. cyclobenzaprine (FLEXERIL) 5 [...] : Procedure(s): EXCISION CYST BACK/ 60 min TITATIVE DEVELOPER Source Note - Yuri Rocha MD - 03/31/2022 11:00 AM QUANTITATIVE DEVELOPER General Surgery Reason for Consult/Visit: back cyst [...] and written informed consent has been obtained. TITATIVE DEVELOPER documented in this encounter Miscellaneous Notes * [...] I was immediatelyavailable. Yuri Rocha MD 04/07/22 TITATIVE DEVELOPER * Pre-Procedure Instructions - Sofi Hardy RN - 04/06/2022 2:16 PM QUANTITATIVE DEVELOPER We are pleased that you and your doctor have chosen [facility] for your surgery. We hope that the following information will help make your visit a pleasant one. Surgery Date: 04/07/2022 and arrive at 08:30 a.m. [facility] Surgery [facility] (look for sign reading ???EMERGENCY - SURGERY CENTER?? ) [address] [place] [address] Before your surgery: Notify your doctor of [...] at the desk that you came to shredder picker your soapfor your surgery. Or you [...] insurance cards, and medication list (including all asge-ejf-ddomhsb medications) with you. Prescriptions can be filled [...] your Pre-Admission Screen/Testing, please call at . TITATIVE DEVELOPER documented in this encounter Plan of Treatment Not on file documented as of this encounter Procedures Procedure Name Priority Date/Time Associated Diagnosis Comments SURGICAL PATHOLOGY Routine 04/07/2022 12 :17 PM QUANTITATIVE DEVELOPER Sebaceous cyst EXCISION CYST/LIPOMA/LESION 04/07/2022 10:24 AM QUANTITATIVE DEVELOPER Sebaceous cyst documented in this encounter Results * Surgical pathology (04/07/2022 12:17 PM QUANTITATIVE DEVELOPER) Tissue (Cyst) 04/07/2022 11: 01 AM QUANTITATIVE DEVELOPER Narrative PATHOLOGY CH - 04/08/2022 3:57 PM QUANTITATIVE DEVELOPER EPIC results best viewed via link to PDF [facility] Department of Pathology [address] [place] [address] Note to Patients: This report may contain [...] Final Report Patient Name: ??LISA HERMOSILLO Address: ??[address] , ??[place], [place] [address] Gender: ??F : ??1960 (Age: 62) Service: ??Surgery Location: ?? OR Hospital #: ??[id number] Patient Type: ??[facility] Accession # ?[id number] Taken: ??04/07/2022 Received: ??04/07/2022 Accessioned: ??04/07/2022 Reported: [...] [facility] as part of an ongoing water quality manager program and in compliance with [...] determined by the Surgical Pathology Department [facility]. ??It has not been cleared or approved by the [place]. S. Food and Drug Administration. Note for decalcified specimens: This assay has not been validated on decalcified tissues. Results should be interpreted with caution given the possibility of false negativity on decalcified specimens Yuri Rocha MD LAB PATHOLOGY [place] [address] [place] [address] documented in this encounter Visit Diagnoses Diagnosis [...] Pre-Emptive AnalgesiaIndications:Pre-Emptive Analgesia Given 04/07/2022 8:45 AM QUANTITATIVE DEVELOPER 650 mg Lactated Ringer's (LR) infusion - ADS Override Pull Starting on Tue04/07/22 at 0838, For 1 dose, Created by cabinet override Lactated Ringer's (LR) infusion 30 mL/hr, intravenous, Continuous, Starting on Tue04/07/22 at 0915, Restarted 04/07/2022 11:14 AM QUANTITATIVE DEVELOPER Rate/Dose Verify 04/07/2022 10:24 AM QUANTITATIVE DEVELOPER 30 mL/ hr New Bag 04/07/2022 8:45 AM QUANTITATIVE DEVELOPER 30 mL/hr 30 mL/hr documented in this [...] Recently Administered Medications Times are shown in QUANTITATIVE DEVELOPER. Scheduled Medication Order 04/05/2022 04/06/2022 04/07/2022 acetaminophen [...] 04/07/2022 documented in this encounter Care Teams Professor Of Chemical Engineering Relationship Specialty Start Date End Date Almita Smallwood MD [address] [place] [address] PCP - General 04/17/20 02/14/23 Almita Smallwood MD [address] [place] [address] Internal Medicine 04/17/20 Jacek Laura MD [address] [place] [phone] Referring Physician Hematology 06/02/21 06/28/22 [place] [address] [address] [place] [address] Surgeon General Surgery 04/07/22 documented as of this encounter
--- OUTSIDE RECORDS SUMMARY | 2024-04-21 21:38 | XMS_ITS | Encounter Summary ---
Author Organization [facility] Address [address] [place] [address] Care Team Providers Care Wild Oyster Harvester Name Role Phone José Guzman MD Primary Care Provider [phone] Reason for Visit * Reason Onset Date Comments Results 01/18/2017 Encounter Details Date Type Department Care Team ([facility] Contact Info) Description 01/18/2017 Telephone [facility] Oncology and Hematology - [place] [address] [facility] [address] [place] [address] Jacek Laura MD [address] [facility] [address] [place] [address] Results Social History Tobacco Use [...] on filedocumented in this encounter Care Teams Wild Oyster Harvester Relationship Specialty Start Date End Date José Guzman MD [address] [place] [id number] PCP - General Family Practice 01/07/17 03/13/18 documented as of this encounter
--- OUTSIDE RECORDS SUMMARY | 2024-04-21 21:38 | XMS_ITS | Encounter Summary ---
Author Organization [facility] Address [address] [place] [address] Care Team Providers Care System Auditor Name Role Phone José Guzman MD Primary Care Provider [phone] Reason for Visit * Reason Comments Follow Up Encounter Details Date Type Department Care Team ([facility] Contact Info) Description 06/08/2017 10:00 AM FISH BAIT PICKER Office Visit [facility] Oncology and Hematology - [place] [address] [facility] [address] [place] [address] Jacek Laura MD [address] [facility] [address] [place] [address] Ductal carcinoma in situ (DCIS) [...] Comments Blood Pressure 147/81 06/08/2017 10:18 AM FISH BAIT PICKER Pulse 74 06/08/2017 10:18 AM FISH BAIT PICKER Temperature 36.7 ??C (98 ??F) 06/08/2017 10:18 AM FISH BAIT PICKER Respiratory Rate 16 06/08/2017 10:18 AM FISH BAIT PICKER Oxygen Saturation 94% 06/08/2017 10:18 AM FISH BAIT PICKER Inhaled Oxygen Concentration - - Weight 67.6 kg (149 lb) 06/08/2017 10:18 AM FISH BAIT PICKER Height 167.6 cm (5' 6 ) 06/08/2017 10:18 AM FISH BAIT PICKER Body Mass Index 24.05 06/08/2017 10:18 AM FISH BAIT PICKER documented in this encounter Progress Notes * [...] partial mastectomy done on November 22, 2016 ER/MI strongly positive. Oncotype DX for DCIS showed [...] a day. ? 06/08/2017 Jacek Laura MD BAIT PICKER documented in this encounter Plan of Treatment Not on file documented as of this encounter Visit Diagnoses Diagnosis 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 breast- Primary documented in this encounter Care Teams System Auditor Relationship Specialty Start Date End Date José Guzman MD [address] [place] [address] PCP - General Family Practice 01/07/17 03/13/18 documented as of this encounter
--- OUTSIDE RECORDS SUMMARY | 2024-04-21 21:38 | XMS_ITS | Encounter Summary ---
Author Organization [facility] Address [address] [place] [address] Phone Care Team Providers Care Cook Camp Name Role Phone Almita Smallwood MD Primary Care Provider + Almita Smallwood MD Unavailable Jacek Laura MD Unavailable [phone] Encounter Details Date Type Department Care Team (Late st Contact Info) Description 06/17/2021 Telephone [facility] Surgery [address] [facility] Advanced Medicine 5th [place] [address] [place] [address] Anna Wu CPhT Social History [...] on file Legal Sex Female 3:38 AM COMPLEX HUMAN RESOURCES MANAGER Gender Identity Not on file Sexual Orientation Not on file 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 LEX HUMAN RESOURCES MANAGER documented in this encounter Plan of Treatment Not on file documented as of this encounter Visit Diagnoses Not on filedocumented in this encounter Care Teams Cook Camp Relationship Specialty Start Date End Date Almita Smallwood MD [address] [place] [address] PCP - General 04/17/20 02/14/23 Almita Smallwood MD [address] [place] [address] Internal Medicine 04/17/20 Jacek Laura MD [address] [phone] Referring Physician Hematology 06/02/21 06/28/22 documented as of this encounter
--- OUTSIDE RECORDS SUMMARY | 2024-04-21 21:38 | XMS_ITS | Encounter Summary ---
Author Organization [facility] Address [address] [facility] [address] [place] [address] Care Team Providers Care Gear Machinist Name Role Phone Almita Smallwood MD Primary Care Provider + Almita Smallwood MD Unavailable [phone] Jacek Laura MD Unavailable [phone] Reason for Visit * Reason Comments Post-op Follow-up Encounter Details Date Type Department Care Team (Late st Contact Info) Description 06/26/2021 11:30 AM FILER FINISH Office Visit [facility] Gynecology at [facility] [address] [facility] [address] [place] [address] [place] [address] [facility] [address] [place] [address] Postoperative examination (Primary Dx) Social [...] on file Legal Sex Female 3:38 AM FILER FINISH Gender Identity Not on file Sexual Orientation Not on file 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[employer]) Not on file Not on file Not on file documented as of this encounter Last Filed Vital Signs Vital Sign Reading Time Taken Comments Blood Pressure 130/81 06/26/2021 11:21 AM FILER FINISH Pulse 91 06/26/2021 11:21 AM FILER FINISH Temperature - - Respiratory Rate - - Oxygen Saturation - - Inhaled Oxygen Concentration - - Weight 75.3 kg (166 lb 1.6 oz) 06/26/2021 11:21 AM FILER FINISH Height 167.6 cm (5' 6 ) 06/26/2021 11:21 AM FILER FINISH Body Mass Index 26.81 06/26/2021 11:21 AM FILER FINISH documented in this encounter Patient Instructions * Patient Instructions* Almita Obando MD - 06/26/2021 11:30 AM FILER FINISH Your pelvic exam today is normal. You are released to all activities without restriction. Return in 1 year for a pap smear or sooner if needed. R FINISH documented in this encounter Progress Notes * [...] Combo Route) route., Disp: , Rfl: ??? teaolgtqrbx-hpipxiffx-zltsdrom (TRELEGY ELLIPTA) 100-62.5-25 mcg inhaler, Inhale 1 [...] sooner if needed. Almita Obando MD 06/26/2021 R FINISH documented in this encounter Plan of Treatment Not on file documented as of this encounter Visit Diagnoses Diagnosis Postoperative examination- Primary Follow-up examination, following unspecified surgery documented in this encounter Care Teams Gear Machinist Relationship Specialty Start Date End Date Almita Smallwood MD [address] [place] [address] PCP - General 04/17/20 02/14/23 Almita Smallwood MD [address] [place] [address] Internal Medicine 04/17/20 Jacek Laura MD [address] [address] Referring Physician Hematology 06/02/21 06/28/22 documented as of this encounter
--- OUTSIDE RECORDS SUMMARY | 2024-04-21 21:38 | XMS_ITS | Encounter Summary ---
Author Organization [facility] Address [address] [place] [address] Phone Care Team Providers Care Counter Pocket Sewer Name Role Phone Almita Smallwood MD Primary Care Provider + Almita Smallwood MD Unavailable [phone] Yuri Rocha MD Unavailable [phone] Encounter Details Date Type Department Care Team (Late st Contact Info) Description 08/09/2022 Orders Only [facility] Surgery [address] 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[employer]) Not on file Not on file Not on file documented as of this encounter Plan of Treatment Not on file documented as of this encounter Visit Diagnoses Diagnosis History of partial mastectomy of left breast- Primary documented in this encounter Care Teams Counter Pocket Sewer Relationship Specialty Start Date End Date Almita Smallwood MD [address] [place] [address] PCP - General 04/17/20 02/14/23 Almita Smallwood MD [address] [place] [address] Internal Medicine 04/17/20 [place] [address] [facility] [address] [place], [place] [address] Surgeon General Surgery 04/07/22 documented as of this encounter
--- OUTSIDE RECORDS SUMMARY | 2024-04-21 21:38 | XMS_ITS | Encounter Summary ---
Author Organization [facility] Address [address] [place] [address] Care Team Providers Care Historic Site Administrator Name Role Phone Almita Smallwood MD Primary Care Provider + Almita Smallwood MD Unavailable Jacek Laura MD Unavailable [phone] Encounter Details Date Type Department Care Team (Late st Contact Info) Description 06/11/2021 11:00 AM ENERGY SALES BROKER - 06/11/2021 12:30 PM [facility] Surgery [facility] Operating Room [address] [place] [address] [place] [id number] [place] [address] DILATION AND CURETTAGE/HYSTEROSCOP Y Surgery Details [...] on file Legal Sex Female 3:38 AM ENERGY SALES BROKER Gender Identity Not on file Sexual Orientation Not on file 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[employer]) Not on file Not on file Not on file documented as of this encounter Last Filed Vital Signs Vital Sign Reading Time Taken Comments Blood Pressure 129/60 06/11/2021 12:27 PM ENERGY SALES BROKER Pulse 85 06/11/2021 12:27 PM ENERGY SALES BROKER Temperature 37.4 ??C (99.3 ??F) 06/11/2021 11:[address] Respiratory Rate 12 06/11/2021 12:27 PM ENERGY SALES BROKER Oxygen Saturation 98% 06/11/2021 12:27 PM ENERGY SALES BROKER Inhaled Oxygen Concentration - - Weight - - Height - - Body Mass Index - - documented in this encounter Discharge Instructions * Discharge Instructions* Annmarie Amador RN - 06/11/2021 12:47 PM ENERGY SALES BROKER FOLLOW UP CALLS You may get a [...] enough for us, we strive for EXCELLENCE! GY SALES BROKER * Attachments The following attachments cannot be sent through Care Everywhere. * Hysteroscopy (Discharge Care) (Citizen [place]) * General Anesthesia (Discharge Care) (Citizen [place]) * Naproxen (By mouth) (Citizen [place]) * Dilation and Curettage (Discharge Care) (Citizen [place]) documented in this encounter Medications at Time of Discharge collagen, hydrolysate, bovine, (COLLAGEN, HYDR, BOVINE,, BULK, MISC) by [facility]; Combo Route) route. levocetirizine (XYZAL) 5 [...] : Procedure(s): DILATION AND CURETTAGE/HYSTEROSCOPY/ 60 min GY SALES BROKER Source Note - Almita Obando MD - 06/10/2021 6:37 PM ENERGY SALES BROKER Gynecology H&P SUBJECTIVE HPI: Lisa Hermosillo??is a [...] 11/2016 For Stage 0 breast CA at [facility] in [place], [place]. No chemorx or XRT, only Tamoxifen. ??? TUBAL LIGATION Social History Socioeconomic History ??? Marital status: Spouse name: Not on file ??? Number of children: 2 ??? Years of education: Not on file ??? Highest education level: Not on file Occupational History ??? 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 Tobacco Use [...] invited and answered. Almita Obando MD 06/10/21 GY SALES BROKER * Almita Obando MD - 06/10/2021 6:37 [...] 11/2016 For Stage 0 breast CA at [facility] in [place], [place]. No chemorx or XRT, only Tamoxifen. ??? TUBAL LIGATION Social History Socioeconomic History ??? Marital status: Spouse name: Not on file ??? Number of children: 2 ??? Years of education: Not on file ??? Highest education level: Not on file Occupational History ??? 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 Tobacco Use [...] invited and answered. Almita Obando MD 06/10/21 GY SALES BROKER documented in this encounter Miscellaneous Notes * Result Encounter Note - Almita Obando MD - 06/11/2021 1:05 PM CST Solitario, please call this patient to let her know that the pathology report shows normal cervical canal tissue (endocervical) and normal uterine lining tissue (endometrium). We can discuss this further at her postoperative visit on 06/26/21. GY SALES BROKER * Brief Op Note - Almita Obando MD - 06/11/2021 11:00 AM CST Operative Progress Note Surgical Team: Surgeon(s) and Role: * Almita Obando MD - Primary Anesthesiologist: Blanca Chan MD INJECTION MOLDER: Gayle Garibay CRNA Crewman Armoured Personnel Carrier M113: Chris Rodriguez RN Scrub: Barbara Guerra RN Crewman Armoured Personnel Carrier M113 Second: Estephania Bauer RN FLOAT: Preeti Copeland [...] 12:26 PM No Resident involved on case GY SALES BROKER * Op Note - Almita Obando MD - 06/11/2021 12:00 AM ENERGY SALES BROKER Preoperative Diagnosis Thickened endometrium. Postmenopausal on Tamoxifen [...] In-and-out catheterization obtained 20 mL of urine. [place] speculum was placed in the vagina. A [...] in stable condition. Job ID/VF Job ID: [id number] GY SALES BROKER documented in this encounter Plan of Treatment Not on file documented as of this encounter Procedures Procedure Name Priority Date/Time Associated Diagnosis Comments SURGICAL PATHOLOGY Routine 06/11/2021 2: 03 PM ENERGY SALES BROKER Thickened endometrium DILATION AND CURETTAGE/HYSTEROSC OPY 06/11/2021 11:05 AM ENERGY SALES BROKER Thickened endometrium documented in this encounter Results * Surgical pathology (06/11/2021 2:03 PM ENERGY SALES BROKER) Tissue (Endocervix, curettage) 06/11/2021 11:34 AM ENERGY SALES BROKER Tissue (Endometrial curettings) 06/11/2021 11:44 AM ENERGY SALES BROKER Narrative PATHOLOGY CH - 06/12/2021 4:09 PM ENERGY SALES BROKER EPIC results best viewed via link to PDF [facility] Department of Pathology [address] [place] [address] Note to Patients: This report may [...] Final Report Patient Name: ??LISA HERMOSILLO Address: ??[address] [place] [address] , ??[place], [place] [address] Gender: ??F : ??1960 (Age: 61) Service: ??Surgery Location: ??[facility] #: ??[id number] Patient Type: ??[facility] Accession # ?[id number] Taken: ??06/11/2021 Received: ??06/11/2021 Accessioned: ??06/11/2021 Reported: [...] determined by the Surgical Pathology Department at [facility] as part of an ongoing research associate quality control qc program and in compliance with federally mandated [...] characteristics determined by the Surgical Pathology Department [facility]. ??It has not been cleared or approved by the U. S. Food and Drug Administration. Almita Obando MD LAB PATHOLOG Y ORDERABLES Final Result PATHOLOGY [address] [place] [address] documented in this encounter Visit Diagnoses Diagnosis [...] AnalgesiaIndications:Pre-E mptive Analgesia Given 06/11/2021 9:47 AM ENERGY SALES BROKER 1,000 mg bupivacaine-EPINEPHrine (MARCAINE with EPI) 0.25 %-1:200,000 preservative free injection As needed, Starting on Kathleen 06/11/21 at 1129, Intra-Op Given 06/11/2021 11:29 AM ENERGY SALES BROKER 30 mL Surgical Site celecoxib (CeleBREX) 200 mg capsule - ADS Override Pull Starting on Kathleen 06/11/21 at 0929, For 1 dose, Created by cabinet override celecoxib (CeleBREX) capsule 200 mg 200 mg, oral, Once, On Kathleen 06/11/21 at 1000, For 1 dose, Pre-Op, Indications: Pre-Emptive PainIndications:Pre-Emptiv e Pain Given 06/11/2021 9:47 AM ENERGY SALES BROKER 200 mg Lactated Ringer's (LR) infusion - ADS Override Pull Starting on Kathleen 06/11/21 at 0929, For 1 dose, Created by cabinet override Lactated Ringer's (LR) infusion 125 mL/hr, intravenous, Continuous, Starting on Kathleen 06/11/21 at 1000, Pre-Op, May discontinue when discharge criteria met. Restarted 06/11/2021 11:50 AM ENERGY SALES BROKER Rate/Dose Verify 06/11/2021 11:07 AM ENERGY SALES BROKER 50 mL/ hr New Bag 06/11/2021 9:46 AM ENERGY SALES BROKER 125 mL/hr 125 mL/hr sodium chloride 0.9% flush 0.5-20 mL 0.5-20 mL, intra-catheter, As needed, line care, Starting on Kathleen 06/11/21 at 0928, Pre-Op, Flush volume based on line type and size. Flush before and after each use. sodium chloride 0.9% irrigation As needed, Starting on Kathleen 06/11/21 at 1129, Intra-Op Given 06/11/2021 11:29 AM ENERGY SALES BROKER 1,000 mL documented in this encounter Discontinued [...] Recently Administered Medications Times are shown in ENERGY SALES BROKER. Scheduled Medication Order 06/09/2021 06/10/2021 06/11/2021 acetaminophen [...] 06/11/2021 documented in this encounter Care Teams Historic Site Administrator Relationship Specialty Start Date End Date Almita Smallwood MD [address] [place] [address] PCP - General 04/17/20 02/14/23 Almita Smallwood MD [address] [place] [address] Internal Medicine 04/17/20 Jacek Laura MD [address] [address] Referring Physician Hematology 06/02/21 06/28/22 documented as of this encounter
--- OUTSIDE RECORDS SUMMARY | 2024-04-21 21:38 | XMS_ITS | Encounter Summary ---
Author Organization [facility] Address [address] [place] [address] Phone Care Team Providers Care Coil Machine Operator Name Role Phone Almita Smallwood MD Primary Care Provider + Almita Smallwood MD Unavailable [phone] Jacek Laura MD Unavailable [phone] Encounter Details Date Type Department Care Team (Late st Contact Info) Description 06/30/2021 Orders Only [facility] Surgery [address] [facility] Advanced Medicine 5th [place] [address] [place] [address] Linda Buckley MD PhD [address] [facility] [phone] [place] [address] Social History Tobacco Use Types Packs/Day Years [...] on file 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 Gender Identity Not on file Sexual Orientation Not on file 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
--- OUTSIDE RECORDS SUMMARY | 2024-04-21 21:38 | XMS_ITS | Encounter Summary ---
Author Organization [facility] Address [address] [facility] [address] [place] [address] Care Team Providers Care Stationary Steam Engineer Name Role Phone Almita Smallwood MD Primary Care Provider + Almita Smallwood MD Unavailable [phone] Jacek Laura MD Unavailable [phone] Encounter Details Date Type Department Care Team (Late st Contact Info) Description 06/15/2021 Telephone [facility] Gynecology at [facility] [address] [facility] [address] [place] [address] [place]o [place] [id number] [place] [address] [address] [place] [address] Social History Tobacco Use Types [...] on file Legal Sex Female 3:38 AM TREATMENT MANAGER Gender Identity Not on file Sexual Orientation Not on file 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 TMENT MANAGER * Telephone Encounter - Mee Winkler MA - 06/15/2021 2:54 PM CST Spoke with pt who states she is doing well. No pain nor pressure. Pt has not been having regular bowel movements. It was suggested that pt start taking stool softener and or metamucil. Pt is requesting script. TMENT MANAGER * Telephone Encounter - Almita Obando MD - 06/15/2021 1:15 PM CST Mee, please call this postop patient to check on her. She had a hysteroscopy with D&C done last (06/11/21) without complication. Pathology shows a benign inactive endometrium (normal). She has a postop visit scheduled for 06/26/21. TMENT MANAGER documented in this encounter Plan of Treatment Not on file documented as of this encounter Visit Diagnoses Not on filedocumented in this encounter Care Teams Stationary Steam Engineer Relationship Specialty Start Date End Date Almita Smallwood MD [address] [place] [address] PCP - General 04/17/20 02/14/23 Almita Smallwood MD [address] [place] [address] Internal Medicine 04/17/20 Jacek Laura MD [address] [phone] Referring Physician Hematology 06/02/21 06/28/22 documented as of this encounter
--- OUTSIDE RECORDS SUMMARY | 2024-04-21 21:38 | XMS_ITS | Encounter Summary ---
Author Organization [facility] Address [address] [place] [address] Care Team Providers Care Software Designer Name Role Phone José Guzman MD Primary Care Provider [phone] Reason for Visit * Reason Comments Follow Up Encounter Details Date Type Department Care Team ([facility] Contact Info) Description 03/08/2017 9:15 AM SPECIAL DIET COOK Office Visit [facility] Oncology and Hematology [facility] [address] [facility] [address] [place] [address] Jacek Laura MD [address] [facility] [address] [place] [address] Ductal carcinoma in situ (DCIS) [...] Comments Blood Pressure 136/70 03/08/2017 9:35 AM SPECIAL DIET COOK Pulse 79 03/08/2017 9:35 AM SPECIAL DIET COOK Temperature 36.9 ??C (98.4 ??F) 03/08/2017 9:35 AM CS T Respiratory Rate 16 03/08/2017 9:35 AM SPECIAL DIET COOK Oxygen Saturation - - Inhaled Oxygen Concentration - - Weight 65.8 kg (145 lb) 03/08/2017 9:35 AM SPECIAL DIET COOK Height 167.6 cm (5' 6 ) 03/08/2017 9:35 AM SPECIAL DIET COOK Body Mass Index 23.4 03/08/2017 9:35 AM SPECIAL DIET COOK documented in this encounter Progress Notes * [...] partial mastectomy done on November 22, 2016 ER/[place] strongly positive. Oncotype DX for DCIS showed [...] on Effexor. ? 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
--- OUTSIDE RECORDS SUMMARY | 2024-04-21 21:38 | XMS_ITS | Encounter Summary ---
Author Organization [facility] Address [address] [place] [address] Phone Care Team Providers Care Ward Supervisor Name Role Phone Almita Smallwood MD Unavailable [phone] Yuri Rocha MD Unavailable [phone] Angela Garza NP Primary Care Provider [phone] Encounter Details Date Type Department Care Team (Late st Contact Info) Description 02/15/2024 Orders Only [facility]icians [facility] Oncology [address] 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 CLINICAL HISTORY ANALYSIS: BASED ON THE CLINICAL HISTORY PROVIDED, MODIFIED MEDICAL MANAGEMENT GUIDELINES IDENTIFIED NO VARIANT(S) OF UNCERTAIN SIGNIFICANCE (VUS) IDENTIFIED Blood specimen (specimen) (Blood, Venous) 02/15/2024 8:26 AM CDT 02/16/2024 3:16 PM CDT us Snow Calabrese MD LAB GENETIC TESTING Final R esult [facility] [address] [place] [address] documented in this encounter Visit Diagnoses Diagnosis 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 breast Breast neoplasm, Tis (LCIS), left Family history of breast cancer Family history of malignant neoplasm of breast documented in this encounter Care Teams Ward Supervisor Relationship Specialty Start Date End Date Angela Garza NP [address] [place] [address] PCP - General Cardiovascular Disease 12/09/23 Almita Smallwood MD [address] [place] [address] Internal Medicine 04/17/20 [place] [address] [facility] [address], [place] [address] Surgeon General Surgery 04/07/22 documented as of this encounter
--- OUTSIDE RECORDS SUMMARY | 2024-04-21 21:38 | XMS_ITS | Encounter Summary ---
Author Organization [facility] Address [address] [place] [address] Care Team Providers Care Supply Technician Name Role Phone José Guzman MD Primary Care Provider [phone] Reason for Visit * Reason Comments Follow Up Encounter Details Date Type Department Care Team ([facility] Contact Info) Description 12/21/2017 9:15 AM CDT Office Visit [facility] Oncology and Hematology - [place] [address] [facility] [address] [place] [address] Jacek Laura MD [address] [facility] [address] [place] [address] Ductal carcinoma in situ (DCIS) [...] partial mastectomy done on November 22, 2016 ER/[place] strongly positive. Oncotype DX for DCIS showed [...] Primary documented in this encounter Care Teams Supply Technician Relationship Specialty Start Date End Date José Guzman MD [address] [place] [address] PCP - General Family Practice 01/07/17 03/13/18 documented as of this encounter
--- OUTSIDE RECORDS SUMMARY | 2024-04-21 21:38 | XMS_ITS | Encounter Summary ---
Author Organization [facility] Address [address] [place] [address] Phone Care Team Providers Care Barrel Cutter Name Role Phone Almita Smallwood MD Primary Care Provider + Almita Smallwood MD Unavailable [phone] Jacek Laura MD Unavailable [phone] Encounter Details Date Type Department Care Team (Late st Contact Info) Description 06/11/2021 Orders Only [facility] [address] [place] [address] Warner Ray MD [address] [place] [address] Malignant neoplasm of female breast, unspecified estrogen [...] on file Legal Sex Female 3:38 AM HOME LENDING OFFICER Gender Identity Not on file Sexual Orientation Not on file 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 Job End Date [employer] 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[employer]) Not on file Not on file Not on file documented as of this encounter Plan of Treatment Not on file documented as of this encounter Procedures Procedure Name Priority Date/Time Associated Diagnosis Comments SURGICAL PATHOLOGY Routine 06/11/2021 10 :02 AM HOME LENDING OFFICER Malignant neoplasm of female breast, unspecified estrogen receptor status, unspecified laterality, unspecified site of breast (HCC) documented in this encounter Results * Surgical pathology (06/11/2021 10:02 AM HOME LENDING OFFICER) Tissue (Miscellaneous) 06/11/2021 10:02 AM HOME LENDING OFFICER 06/11/2021 10:02 AM HOME LENDING OFFICER Narrative [facility] PATHOLOGY [facility] - 06/17/2021 1:07 PM HOME LENDING OFFICER EPIC results best viewed via link to PDF [facility] Pathology Consult Service [address], [place], [place] [id number] Note to Patients: This report may contain [...] SURGICAL PATHOLOGY REPORT * Consult Report * [facility] is providing an additional review of previously collected tissue. FINAL Patient Name: ??ANITHA HERMOSILLO Address: ??[address] [facility] [facility], ?[place], [place] ??[address] Gender: ??F : ??1960 (Age: 61) Hospital #: ??[id number] Patient Type: ??WU Location: ??Medical Oncology Taken: ??06/11/2021 Received: ??06/11/2021 Accessioned: ??06/11/2021 Reported: ??06/17/2021 Physician(s): Warner Ray M.D. [facility] Department of Pathology [address] [place] [address] P: [phone] F: [phone] Diagnosis: Consult material received from [place], [place] (OSC [id number]; 01/26/11): Breast, left, 12:00, ultrasound-guided core biopsy ? - Fibrocystic changes with usual ductal hyperplasia, adenosis, apocrine metaplasia and microcysts - Pseudoangiomatous stromal hyperplasia (PASH) - Duct ectasia - No evidence of atypical hyperplasia, in situ carcinoma, or invasive carcinoma ? Consult material received from [place], [place] (OSC [id number]; 10/27/16): Breast, left, upper outer, with calcifications, [...] of invasive carcinoma Consult material received from [place], [place] (OSC: [id number]; 11/23/16): Breast, left, upper outer quadrant, partial [...] invasive carcinoma ?? Consult material received from [place], [place] (OSC: [id number]; 11/07/2018). Lymph nodes, right axillary, excision ? [...] Received for review are two slides labeled [id number], eleven slides labeled [id number], thirteen slides labeled [id number], and two slides labeled [id number], accompanied by the corresponding pathology reports. The materials originated from [place], [place]. Selected slide(s) may be digitally scanned for our files, and all material is returned to the referring institution, along with a copy of our final report. Any testing required for diagnostic purposes was performed in the Department of Pathology and Immunology at [facility], [address] [place] [id number] CLIA # [id number] The performance characteristics of the testing cited in this report (if any) were determined by the ??[facility] Department of Pathology and Immunology [facility], as part of an ongoing quality control director program and in compliance with federally mandated [...] and the performance characteristics determined by the [facility], [facility] Department of Pathology and Immunology. ??It has not been cleared or approved by the U.S. Food and Drug Administration. ??Any test designated as LDT was developed and its performance characteristics determined by [facility]. It has not been cleared or approved by the FDA. This test is used for clinical purposes and should not be regarded as investigational or for research. Report images and/or scanned reports, if included, only viewable in PDF version of report. us Warner Ray MD LAB PATHOLOGY ORD ERABLES Final Result [facility] [address] [address] documented in this encounter Visit Diagnoses Diagnosis Malignant neoplasm of female breast, unspecified estrogen receptor status, unspecified laterality, unspecified site of breast (HCC) documented in this encounter Care Teams Barrel Cutter Relationship Specialty Start Date End Date Almita Smallwood MD [address] [place] [address] PCP - General 04/17/20 02/14/23 Almita Smallwood MD [address] [place] [address] Internal Medicine 04/17/20 Jacek Laura MD [address] [address] Referring Physician Hematology 06/02/21 06/28/22 documented as of this encounter
--- OUTSIDE RECORDS SUMMARY | 2024-04-21 21:38 | XMS_ITS | Encounter Summary ---
Author Organization [facility] Address [address] [place] [address] Phone Care Team Providers Care Chief Medical Officer Name Role Phone Almita Smallwood MD Unavailable [phone] Yuri Rocha MD Unavailable [phone] Angela Garza NP Primary Care Provider Reason [...] MD [address] [place] [address] Phone: tel: fax: [address] [address] Referral ID Status Reason Start Date Expiration Date V isits Requested Visits Authorized [id number] Pending Review 01/11/2024 02/09/2025 1 1 * Diagnostic Imaging (Routine) - Authorized Specialty Diagnoses / Procedures Referred By Contosmin t Referred To Contact Diagnoses Breast cancer screening by mammogram Encounter for screening mammogram for breast cancer Procedures Screening Mammogram Bilateral W Chris Snow Calabreseth, MD [address] [place] [address] Phone: tel: fax: [facility] [address] [place] [address] Referral ID Status Reason Start Date Expiration Date V isits Requested Visits Authorized [id number] Authorized 01/11/2024 02/09/2025 1 1 Reason for Visit * Reason Comments Follow-up Encounter Details Date Type Department Care Team (Late st Contact Info) Description 01/11/2024 10:40 AM CDT Office Visit [facility] Oncology [address] [place] [address] Snow Calabrese MD [address] [place] [address] Breast cancer screening by mammogram [...] on file 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 Per her oncology consultation at [facility] 02/22/[address] Cain, she was treated in at [facility] in 2017 (partial mastectomy 11/22/16) for DCIS [...] after establishing care with Dr. Cain at [facility]. She stopped HRT at the [...] effects. No vaginal bleeding. Due to see ecommerce merchandising manager. Colonoscopy for BRBPR March 2022. Normal. 5 year follow-up recommended. Doing Crossfit. When I saw her last year she reported weight gain and worsening of sciatic pain. Lost 30# and sciatica improved. Overall in good spirits. She did start a part-time job working at the [employer]. 01/11/24: Jaw surgery. Saw derm this morning. Job with [employer] in [facility]. Didn't resume tamoxifen.Her sister was diagnosed with [...] 11/22/2016 For Stage 0 breast CA at [facility] in [place], [place]. No chemorx or XRT, only Tamoxifen. [...] review: Breast imaging breast MRI 11/05/16 at [facility]. BI-RADS 6. Minimal enhancement around her left biopsy clip. left diagnostic mammogram 05/26/17 at [facility]. BI-RADS 2. This was her first post- BCT mammogram. breast MRI 10/16/18 at [facility]. BI-RADS 2. Per the report, she was having clear nipple discharge. bilateral screening mammography 02/21/20. BI-RADS 2. Heterogeneously dense. bilateral screening mammography 06/25/21 at [facility]. BI-RADS 2. Heterogeneously dense. Breast MRI 12/17/21, [...] 2 mm (both reported on oncology notes), ER/MA strongly positive, Oncotype DCIS 0; a note [...] Rocha (general surgery) Assessment/Plan: Left DCIS, G1, ER/MA strongly positive Tamoxifen AUB with benign D&C [...] on test results, I may want another tqhp-nm-cwce conversation with the patient. I may also [...] usually covered by insurance. If not, the pjj-ro-iztkyt depends on the lab policy, insurance deductible, etc. Most patients pay $100 or less. For patients with high expected izi-wq-wvqdho cost, a $250 kent option is available with most labs. It is important to respond to company communications within the required time frame to prevent higher wef-rg-tmumhd costs. [employer] contacts patients with any expected elk-po-ktwqlh cost and obtains patient permission prior to proceeding with testing. [employer] invites patients, via text, to an fxi-wq-htpirx cost calculator, and I encourage all patients [...] services. Snow Calabrese MD, FACS Medical Oncology [facility] Addendum Mena reached out after confirming that her sister had ovarian cancer, not uterine cancer. She is therefore eligible for genetic testing for HBOC. She is similarly still eligible for Soto syndrome based testing given that ovarian cancer is a component of Soto syndrome. Addendum Genetic testing, specifically Meddik panel, revealed no mutations/variants. I notified her of results via [employer] and will mail a copy to her with a summary letter, available in her chart. SANDER SETTER documented in this encounter Plan of Treatment [...] 024 documented in this encounter Care Teams Chief Medical Officer Relationship Specialty Start Date End Date Angela Garza SLIP COVER SEWER [address] [place] [address] PCP - General Cardiovascular Disease 12/09/23 Almita Smallwood MD [address] [place] [address] Internal Medicine 04/17/20 [place] [address] [address] [place] [address] Surgeon General Surgery 04/07/22 documented as of this encounter
--- OUTSIDE RECORDS SUMMARY | 2024-04-21 21:38 | XMS_ITS | Encounter Summary ---
Author Organization [facility] Address [address] [place] [address] Phone Care Team Providers Care Fibrous Plasterer Name Role Phone Almita Smallwood MD Primary Care Provider + Almita Smallwood MD Unavailable [phone] Jacek Laura MD Unavailable [phone] Encounter Details Date Type Department Care Team (Late st Contact Info) Description 06/16/2021 Telephone [facility] [address] [facility] Advanced Medicine 5th [place] [address] [place] [address] Anna Wu CPhT Social History [...] on file 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 RAL STATION OPERATOR documented in this encounter Plan of Treatment Not on file documented as of this encounter Visit Diagnoses Not on filedocumented in this encounter Care Teams Fibrous Plasterer Relationship Specialty Start Date End Date Almita Smallwood MD [address] [place] [address] PCP - General 04/17/20 02/14/23 Almita Smallwood MD [address] [place] [address] Internal Medicine 04/17/20 Jacek Laura MD [address] [id number] Referring Physician Hematology 06/02/21 06/28/22 documented as of this encounter
--- OUTSIDE RECORDS SUMMARY | 2024-04-21 21:38 | XMS_ITS | Encounter Summary ---
Author Organization [facility] Address 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
--- OUTSIDE RECORDS SUMMARY | 2024-04-21 21:38 | XMS_ITS | Encounter Summary ---
Author Organization [facility] Address [address] [place] [address] Care Team Providers Care Basket Assembler Name Role Phone Unavailable Primary Care Provider Unavailabl e Encounter Details Date Type Department Care Team (Latest Contact Info) Description 10/27/2016 1:30 PM CDT - 10/27/2016 11:59 PM CDT Hospital Encounter [facility] [address] [place] [address] [facility], External Provider [address] [place] [address] Discharge Disposition: Home or Self Care Social [...] 1:30 PM CDT) Narrative 03/04/2020 1:27 PM MANAGER EMPLOYEE BENEFITS This exam was auto finalized to allow images to be scanned to PACS. External Provider [facility] DIAGNOSTIC IMAGI NG ORDERABLES documented in this encounter Visit Diagnoses Diagnosis Follow up documented in this encounter
--- OUTSIDE RECORDS SUMMARY | 2024-04-21 21:38 | XMS_ITS | Encounter Summary ---
Author Organization [facility] Address [address] [place] [address] Phone Care Team Providers Care Microphone Operator Name Role Phone Almita Smallwood MD Primary Care Provider + Almita Smallwood MD Unavailable Jacek Laura MD Unavailable [phone] Reason for Visit * Reason Onset Date Comments Scheduling Appointments 07/23/2021 Encounter Details Date Type Department Care Team (Late st Contact Info) Description 07/23/2021 Telephone [facility] Oncology [address] [place] [address] Shonna Brown Scheduling Appointments Social [...] on file 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 Gender Identity Not on file Sexual Orientation Not on file 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
--- OUTSIDE RECORDS SUMMARY | 2024-04-21 21:38 | XMS_ITS | Encounter Summary ---
Author Organization [facility] Address [address] [place] [address] Care Team Providers Care Criminal Analyst Name Role Phone Almita Smallwood MD Unavailable [phone] Yuri Rocha MD Unavailable [phone] Angela Garza NP Primary Care Provider [phone] Reason for Referral * Diagnostic Imaging (Routine) - Closed Specialty Diagnoses / Procedures Referred By Tati campos Referred To Contact Diagnoses Encounter for screening mammogram for breast cancer Procedures Screening Mammogram Bilateral W Snow Noe MD [address] [place] [address] Phone: tel: fax: [address] [address] Referral ID Status Reason Start Date Expiration Date Visits Re quested Visits Authorized [id number] Closed 11/04/2022 12/04/2023 1 1 Reason for Visit * Diagnostic Imaging (Routine) - Closed Specialty Diagnoses / Procedures Referred By Tati campos Referred To Contact Diagnoses Encounter for screening mammogram for breast cancer Procedures Screening Mammogram Bilateral W Snow Noe MD [address] [place] [address] Phone: tel: fax: [address] [address] Referral ID Status Reason Start Date Expiration Date Visits Re quested Visits Authorized [id number] Closed 11/04/2022 12/04/2023 1 1 Encounter Details Date Type Department Care Team (Latest Contact Info) Description 12/09/2023 7:25 AM CDT - 12/09/2023 11:59 PM CDT Hospital Encounter [facility] Medical Office [address] Breast [facility] [address] [facility] [address] [place] [address] Encounter for screening mammogram for breast cancer [...] on file 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 For women [...] cancer documented in this encounter Care Teams Criminal Analyst Relationship Specialty Start Date End Date Angela Garza NP [address] [place] [address] PCP - General Cardiovascular Disease 12/09/23 Almita Smallwood MD [address] [place] [address] Internal Medicine 04/17/20 [place] [address] [facility] [address] [place] [address] Surgeon General Surgery 04/07/22 documented as of this encounter
--- OUTSIDE RECORDS SUMMARY | 2024-04-21 21:38 | XMS_ITS | Encounter Summary ---
Author Organization [facility] Healthcare Address [address] [place] [address] Care Team Providers Care Sales Clerk Name Role Phone Almita Smallwood MD Primary Care Provider + Almita Smallwood MD Unavailable [phone] Jacek Laura MD Unavailable [phone] Yuri Rocha MD Unavailable [phone] Reason for Visit * Auth/Cert Specialty Diagnoses / Procedures Referred By Tati campos Referred To Contact Diagnoses Sebaceous cyst Sebaceous cyst [L72.3] Procedures CT EXC B9 LESION MRGN XCP SK TG T/A/L 0.6-1.[address] EXC B9 LESION MRGN XCP SK TG T/A/L 1.1-2.[address] EXC B9 LESION MRGN XCP SK TG T/A/L 2.1-3.0 CM EXCISION CYST BACK/ 60 min Referral ID Status Reason Start Date Expiration Date Visits Re quested Visits Authorized [id number] 1 1 Encounter Details Date Type Department Care Team (Late st Contact Info) Description 04/07/2022 10:24 AM CIRCUIT BOARD INSPECTOR Anesthesia Event [facility] Operating Room [address] [place] [address] Rebecca Strong Jr., MD [address] [place] [address] [place] [address] [place] [address] Anesthesia Record Procedure Summary Procedure [...] 1130; Vagina; 03/20/24 (Retired LDA, Removed/Completed by Cloze with LDA Utility); 1213 (Retired LDA, Removed/Completed by Cloze with LDA Utility) 06/11/21 1130 by Chris [...] Ba ck; 03/20/24 (Retired LDA, Removed/Completed by Cloze with LDA Utility); 1213 (Retired LDA, Removed/Completed by Cloze with LDA Utility) 04/07/22 1049 by Allyson [...] on file Legal Sex Female 3:38 AM CIRCUIT BOARD INSPECTOR Gender Identity Not on file Sexual Orientation Not on file 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 UIT BOARD INSPECTOR * Anesthesia Preprocedure Evaluation - Rebecca Strong [...] 11/22/2016 For Stage 0 breast CA at [facility] in [place], [place]. No chemorx or XRT, only Tamoxifen. [...] tablet -- 07/09/21 -- Cande Diego MD lahgsmukyws-osxpbwxxm-ysemxice (TRELEGY ELLIPTA) 100-62.5-25 mcg inhaler -- 04/16/20 -- Cande Diego MD levocetirizine (XYZAL) 5 mg tablet -- 02/22/20 -- Cande Diego MD montelukast (SINGULAIR) 10 mg tablet -- -- -- Cande Diego MD multivitamin tablet,chewable -- -- -- Cande Diego MD tamoxifen (NOLVADEX) 20 mg tablet -- 08/12/21 -- [place] ojeda MD Take 1 tablet (20 mg [...] ??? cyclobenzaprine (FLEXERIL) 5 mg tablet ??? rqkklvjdoci-fmscevvvn-izliohwi (TRELEGY ELLIPTA) 100-62.5-25 mcg inhaler ??? levocetirizine [...] Medication protocol when under care of a FUR DESIGNER Planned anesthesia: MAC Induction: Induction: intravenous. Postoperative Plan: Postoperative administration opioids intended. No postoperative mechanical ventilation intended. Patient's planned disposition post procedure is Outpatient. No trial extubation planned. Informed Consent: Discussed plan with AA, attending and FUR DESIGNER. Anesthesia plan and risks discussed with patient. Consent and Attending signature: I and/or my designee have discussed the anesthesia plan, benefits, possible alternatives, parental presence at time of induction (if indicated), and clinically relevant risks that may include dental injury, unintentional awareness, and/or other complications. The patient and/or parent/legal guardian understand, and agree to proceed. All questions answered. UIT BOARD INSPECTOR UIT BOARD INSPECTOR documented in this encounter Plan of [...] SurgicalIndications:Prophylaxis , Surgical Given 04/07/2022 10:35 AM CIRCUIT BOARD INSPECTOR 2,000 mg fentaNYL (SUBLIMAZE) preservative free injection intravenous, As needed, Starting on Tue04/07/22 at 1033, Anesthesia Intra-op Given 04/07/2022 10:38 AM CIRCUIT BOARD INSPECTOR 25 mcg Given 04/07/2022 10:33 AM CIRCUIT BOARD INSPECTOR 25 mcg Lactated Ringer's (LR) infusion 30 mL/hr, intravenous, Continuous, Starting on Tue04/07/22 at 0915, Restarted 04/07/2022 11:14 AM CIRCUIT BOARD INSPECTOR Rate/Dose Verify 04/07/2022 10:24 AM CIRCUIT BOARD INSPECTOR 30 mL/ hr New Bag 04/07/2022 8:45 AM CIRCUIT BOARD INSPECTOR 30 mL/hr 30 mL/hr midazolam (VERSED) 1 mg/mL preservative free injection intravenous, Administer over 2 Minutes, As needed, Starting on Tue04/07/22 at 1024, Anesthesia Intra-op Given 04/07/2022 10:24 AM CIRCUIT BOARD INSPECTOR 2 mg ondansetron (ZOFRAN) injection intravenous, Administer over 2 Minutes, As needed, Starting on Tue04/07/22 at 1030, Anesthesia Intra-op Given 04/07/2022 10:30 AM CIRCUIT BOARD INSPECTOR 4 mg propofoL (DIPRIVAN) 10 mg/mL IV intravenous, Continuous PRN, Starting on Tue04/07/22 at 1029, Anesthesia Intra-op Rate/Dose Change 04/07/2022 11:08 AM CIRCUIT BOARD INSPECTOR 55 mcg/kg/min 22.605 mL/hr Rate/Dose Change 04/07/2022 10:35 AM CIRCUIT BOARD INSPECTOR 85 mcg/kg/min 34. 935 mL/hr New Bag 04/07/2022 10:29 AM CIRCUIT BOARD INSPECTOR 55 mcg/kg/min 22.605 mL /hr documented in this encounter Care Teams Sales Clerk Relationship Specialty Start Date End Date Almita Smallwood MD [address] [place] [id number] PCP - General 04/17/20 02/14/23 Almita Smallwood MD [address] [place] [address] Internal Medicine 04/17/20 Jacek Laura MD [address] [id number] Referring Physician Hematology 06/02/21 06/28/22 [place] [address] [address] [address] Surgeon General Surgery 04/07/22 documented as of this encounter
--- OUTSIDE RECORDS SUMMARY | 2024-04-21 21:38 | XMS_ITS | Encounter Summary ---
Author Organization [facility] Address [address] [place] [address] Phone Care Team Providers Care Rn Unit Manager Name Role Phone Almita Smallwood MD Primary Care Provider + Almita Smallwood MD Unavailable [phone] Jacek Laura MD Unavailable [phone] Encounter Details Date Type Department Care Team (Late st Contact Info) Description 08/06/2021 Orders Only [facility] Surgery [address] [facility] Advanced Medicine 5th [place] [address] [place] [address] Linda Buckley MD PhD [address] [facility] [id number] [place] [address] Social History Tobacco Use Types Packs/Day Years [...] on file Legal Sex Female 3:38 AM NIGHT PATROL INSPECTOR Gender Identity Not on file Sexual Orientation Not on file 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
--- OUTSIDE RECORDS SUMMARY | 2024-04-21 21:38 | XMS_ITS | Encounter Summary ---
Author Organization [facility] Address [address] [place] [address] Care Team Providers Care Firmware Architect Name Role Phone Unavailable Primary Care Provider Unavailabl e Encounter Details Date Type Department Care Team (Latest Contact Info) Description 11/22/2016 1:30 PM CDT - 11/22/2016 11:59 PM CDT Hospital Encounter [facility] [place] [facility] [address] [place] [address] [facility], External Provider [address] [place] [address] Discharge Disposition: Home or Self Care Social [...] 1:30 PM CDT) Narrative 03/04/2020 1:28 PM CARGO TANK MECHANIC This exam was auto finalized to allow images to be scanned to PACS. External Provider [facility] DIAGNOSTIC IMAGI NG ORDERABLES documented in this encounter Visit Diagnoses Diagnosis Follow up documented in this encounter
--- OUTSIDE RECORDS SUMMARY | 2024-04-21 21:38 | XMS_ITS | Encounter Summary ---
Author Organization [facility] Healthcare Address [address] [place] [address] Care Team Providers Care Sleeve Bottom Feller Name Role Phone Almita Smallwood MD Primary Care Provider + Almita Smallwood MD Unavailable [phone] Jacek Laura MD Unavailable [phone] Encounter Details Date Type Department Care Team (Late st Contact Info) Description 06/11/2021 8:44 AM SUPERVISOR ELECTRONICS PROCESSING - 06/11/2021 1:05 PM SUPERVISOR ELECTRONICS PROCESSING Hospital Encounter [facility] Operating Room [address] [place] [address] [place] [address] [address] Thickened endometrium Discharge Disposition: Discharge to home [...] Legal Sex Female 3:38 AM SUPERVISOR ELECTRONICS PROCESSING Gender Identity Not on file Sexual Orientation Not on file 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 Job End Date 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 [employer]) Not on file Not on file Not on file documented as of this encounter Last Filed Vital Signs Vital Sign Reading Time Taken Comments Blood Pressure 129/60 06/11/2021 12:27 PM SUPERVISOR ELECTRONICS PROCESSING Pulse 85 06/11/2021 12:27 PM SUPERVISOR ELECTRONICS PROCESSING Temperature 37.4 ??C (99.3 ??F) 06/11/2021 11:[address] Respiratory Rate 12 06/11/2021 12:27 PM SUPERVISOR ELECTRONICS PROCESSING Oxygen Saturation 98% 06/11/2021 12:27 PM SUPERVISOR ELECTRONICS PROCESSING Inhaled Oxygen Concentration - - Weight - [...] dependence - PERSONAL HISTORY OF NICOTINE DEPENDENCE long-term (current) use of inhaled steroids - HALF-WAY (CURRENT) USE OF INHALED STEROIDS event promoter (current) use of selective estrogen receptor modulators (serms) - HALF-WAY (CURRENT) USE OF SELECTIVE ESTROGEN RECEPTOR MODULATORS (SERMS) Other senior product designer (current) drug therapy - OTHER HALF-WAY (CURRENT) DRUG THERAPY documented in this encounter Discharge Instructions * Discharge Instructions* Annmarie Amador RN - 06/11/2021 12:47 PM SUPERVISOR ELECTRONICS PROCESSING FOLLOW UP CALLS You may get a [...] enough for us, we strive for EXCELLENCE! RVISOR ELECTRONICS PROCESSING * Attachments The following attachments cannot be sent through Care Everywhere. * Hysteroscopy (Discharge Care) (Tunisian) * General Anesthesia (Discharge Care) (Tunisian) * Naproxen (By mouth) (Tunisian) * Dilation and Curettage (Discharge Care) (Tunisian) documented in this encounter Medications at Time [...] : Procedure(s): DILATION AND CURETTAGE/HYSTEROSCOPY/ 60 min RVISOR ELECTRONICS PROCESSING Source Note - Almita Obando MD - 06/10/2021 6:37 PM SUPERVISOR ELECTRONICS PROCESSING Gynecology H&P SUBJECTIVE HPI: Lisa Hermosillo??is a [...] 11/2016 For Stage 0 breast CA at [facility] in [place], [place]. No chemorx or XRT, only Tamoxifen. ??? TUBAL LIGATION Social History Socioeconomic History ??? Marital status: Spouse name: Not on file ??? Number of children: 2 ??? Years of education: Not on file ??? Highest education level: Not on file Occupational History ??? 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 Tobacco Use [...] invited and answered. Almita Obando MD 06/10/21 RVISOR ELECTRONICS PROCESSING * Almita Obando MD - 06/10/2021 6:37 [...] 11/2016 For Stage 0 breast CA at [facility] in [place], [place]. No chemorx or XRT, only Tamoxifen. ??? TUBAL LIGATION Social History Socioeconomic History ??? Marital status: Spouse name: Not on file ??? Number of children: 2 ??? Years of education: Not on file ??? Highest education level: Not on file Occupational History ??? 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 Tobacco Use [...] invited and answered. Almita Obando MD 06/10/21 RVISOR ELECTRONICS PROCESSING documented in this encounter Miscellaneous Notes * Result Encounter Note - Almita Obando MD - 06/11/2021 1:05 PM CST Solitario, please call this patient to let her know that the pathology report shows normal cervical canal tissue (endocervical) and normal uterine lining tissue (endometrium). We can discuss this further at her postoperative visit on 06/26/21. RVISOR ELECTRONICS PROCESSING * Brief Op Note - Almita Obando MD - 06/11/2021 11:00 AM CST Operative Progress Note Surgical Team: Surgeon(s) and Role: * Almita Obando MD - Primary Anesthesiologist: Blanca Chan MD HACKLER DOLL WIGS: Gayle Garibay CRNA System Development Manager: Chris Rodriguez RN Scrub: Barbara Guerra RN System Development Manager Second: Estephania Bauer RN FLOAT: Preeti Copeland [...] 12:26 PM No Resident involved on case RVISOR ELECTRONICS PROCESSING * Op Note - Almita Obando MD - 06/11/2021 12:00 AM SUPERVISOR ELECTRONICS PROCESSING Preoperative Diagnosis Thickened endometrium. Postmenopausal on Tamoxifen [...] In-and-out catheterization obtained 20 mL of urine. [place] speculum was placed in the vagina. A [...] in stable condition. Job ID/VF Job ID: [id number] RVISOR ELECTRONICS PROCESSING documented in this encounter Plan of Treatment Not on file documented as of this encounter Procedures Procedure Name Priority Date/Time Associated Diagnosis Comments SURGICAL PATHOLOGY Routine 06/11/2021 2: 03 PM SUPERVISOR ELECTRONICS PROCESSING Thickened endometrium DILATION AND CURETTAGE/HYSTEROSC OPY 06/11/2021 11:05 AM SUPERVISOR ELECTRONICS PROCESSING Thickened endometrium documented in this encounter Results * Surgical pathology (06/11/2021 2:03 PM SUPERVISOR ELECTRONICS PROCESSING) Tissue (Endocervix, curettage) 06/11/2021 11:34 AM SUPERVISOR ELECTRONICS PROCESSING Tissue (Endometrial curettings) 06/11/2021 11:44 AM SUPERVISOR ELECTRONICS PROCESSING Narrative PATHOLOGY CH - 06/12/2021 4:09 PM SUPERVISOR ELECTRONICS PROCESSING EPIC results best viewed via link to PDF [facility] Department of Pathology [address] [place], [place] [id number] Note to Patients: This report may contain [...] Final Report Patient Name: ??LISA HERMOSILLO Address: ??[address] , ??[place], [place] [address] Gender: ??F : ??1960 (Age: 61) Service: ??Surgery Location: ??[facility] #: ??[id number] Patient Type: ??[facility] Accession # ?[id number] Taken: ??06/11/2021 Received: ??06/11/2021 Accessioned: ??06/11/2021 Reported: [...] determined by the Surgical Pathology Department at [facility] as part of an ongoing quality internship program and in compliance with federally mandated [...] by the Surgical Pathology Department [facility]. ??It has not been cleared or approved by the U. S. Food and Drug Administration. Almita Obando MD LAB PATHOLOG Y ORDERABLES Final Result Performing Organization Address City/State/[facility] Co de Phone Number PATHOLOGY [address] [place] [address] documented in this encounter Visit Diagnoses Diagnosis [...] AnalgesiaIndications:Pre-Emptiv e Analgesia Given 06/11/2021 9:47 AM SUPERVISOR ELECTRONICS PROCESSING 1,000 mg celecoxib (CeleBREX) 200 mg capsule - ADS Override Pull Starting on Kathleen 06/11/21 at 0929, For 1 dose, Created by renetta prattide celecoxib (CeleBREX) capsule 200 mg 200 mg, oral, Once, On Kathleen 06/11/21 at 1000, For 1 dose, Pre-Op, Indications: Pre-Emptive PainIndications:Pre-Emptive Pain Given 06/11/2021 9:47 AM SUPERVISOR ELECTRONICS PROCESSING 200 mg Lactated Ringer's (LR) infusion - ADS Override Pull Starting on Kathleen 06/11/21 at 0929, For 1 dose, Created by cabinet override Lactated Ringer's (LR) infusion 125 mL/hr, intravenous, Continuous, Starting on Kathleen 06/11/21 at 1000, Pre-Op, May discontinue when discharge criteria met. Restarted 06/11/2021 11:50 AM SUPERVISOR ELECTRONICS PROCESSING Rate/Dose Verify 06/11/2021 11:07 AM SUPERVISOR ELECTRONICS PROCESSING 50 mL/ hr New Bag 06/11/2021 9:46 AM SUPERVISOR ELECTRONICS PROCESSING 125 mL/hr 125 mL/hr sodium chloride 0.9% [...] Recently Administered Medications Times are shown in SUPERVISOR ELECTRONICS PROCESSING. Scheduled Medication Order 06/09/2021 06/10/2021 06/11/2021 acetaminophen [...] 06/11/2021 documented in this encounter Care Teams Sleeve Bottom Feller Relationship Specialty Start Date End Date Almita Smallwood MD [address] [place] [address] PCP - General 04/17/20 02/14/23 Almita Smallwood MD [address] [place] [address] Internal Medicine 04/17/20 Jacek Laura MD [address] [address] Referring Physician Hematology 06/02/21 06/28/22 documented as of this encounter
--- OUTSIDE RECORDS SUMMARY | 2024-04-21 21:38 | XMS_ITS | Encounter Summary ---
Author Organization [facility] Healthcare Address [address] [place] [address] Care Team Providers Care Utility Repairer Name Role Phone Almita Smallwood MD Primary Care Provider + Almita Smallwood MD Unavailable [phone] Jacek Laura MD Unavailable [phone] Encounter Details Date Type Department Care Team (Late st Contact Info) Description 06/11/2021 11:07 AM GREEN CHAINER Anesthesia Event [facility] Operating Room [address] [place] [address] [place] [address] [facility] [address] [place] [address] Marcelino Xiao MD [address] [place] [address] Anesthesia Record Procedure Summary Procedure Name Responsible [...] 1130; Vagina; 03/20/24 (Retired LDA, Removed/Completed by [facility] with LDA Utility); 1213 (Retired LDA, Removed/Completed by [facility] with LDA Utility) 06/11/21 1130 by Chris [...] on file Legal Sex Female 3:38 AM GREEN CHAINER Gender Identity Not on file Sexual Orientation Not on file 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 N CHAINER * Anesthesia Procedure Notes - Gayle Garibay CRNA - 06/11/2021 11:23 AM CSTAssociated Order(s): Airway Airway Patient location: OR Urgency: elective Date/time: 06/11/2021 11:14 AM Indications for airway management: anesthesia Difficult airway: no Staff: Placed by: LEGAL EXAMINER: Gayle Garibay CRNA Emergent airway documentation: Risks and benefits discussed: yes Consent obtained: yes Consent given by: patient Airway prep: Preoxygenated: yes Mask difficulty assessment: 0 - not attempted Spontaneous ventilation during airway: absent Sedation level during airway: GA Final airway details: Final airway type: supraglottic airway Final supraglottic airway: IGel SGA size: 4 Number of attempts: 1 N CHAINER * Anesthesia Preprocedure Evaluation - Russell Gilliland [...] 11/2016 For Stage 0 breast CA at [facility] in [place], [place]. No chemorx or XRT, only Tamoxifen. [...] BULK, MISC) -- -- Cande Diego MD trvgxunzhmv-igurwvcxc-qryoxopt (TRELEGY ELLIPTA) 100-62.5-25 mcg inhaler 04/16/20 -- Cande Diego MD levocetirizine (XYZAL) 5 mg tablet 02/22/20 -- Cande Dieog MD montelukast (SINGULAIR) 10 mg tablet 06/20/20 [...] bovine, (COLLAGEN, HYDR, BOVINE,, BULK, MISC) ??? mitrgbuqhnm-bhzlgozbz-ngwthihs (TRELEGY ELLIPTA) 100-62.5-25 mcg inhaler ??? levocetirizine [...] Medication protocol when under care of a LEGAL EXAMINER Planned anesthesia: General Team communication plan: LMA Induction: Induction: intravenous. Postoperative Plan: No plan for postoperative opioid use. No postoperative mechanical ventilation intended. Patient's planned disposition post procedure is Outpatient. No trial extubation planned. Informed Consent: Discussed plan with attending, LEGAL EXAMINER and AA. Anesthesia plan and risks discussed with patient. Consent and Attending signature: I and/or my designee have discussed the anesthesia plan, benefits, possible alternatives, parental presence at time of induction (if indicated), and clinically relevant risks that may include dental injury, unintentional awareness, and/or other complications. The patient and/or parent/legal guardian understand, and agree to proceed. All questions answered. N CHAINER N CHAINER documented in this encounter Plan of Treatment Not on file documented as of this encounter Procedures Procedure Name Priority Date/Time Associated Diagnosis Comments TN AN ELECTIVE SUPRAGLOTTIC AIRWAY Routine 06/11/2021 11:14 AM GREEN CHAINER documented in this encounter Results * TN AN ELECTIVE SUPRAGLOTTIC AIRWAY (06/11/2021 11:14 AM GREEN CHAINER) Narrative Gayle Garibay CRNA - 06/11/2021 11:14 AM GREEN CHAINER Gayle Garibay CRNA ? 06/11/2021 11:23 AM Airway Patient location: OR Urgency: elective Date/time: 06/11/2021 11:14 AM Indications for airway management: anesthesia Difficult airway: no Staff: Placed by: LEGAL EXAMINER: Gayle Garibay CRNA Emergent airway documentation: Risks [...] SurgicalIndications:Prophylaxis , Surgical Given 06/11/2021 11:18 AM GREEN CHAINER 2,000 mg dexAMETHasone (DECADRON) 4 mg/mL injection intravenous, Administer over 2 Minutes, As needed, Starting on Kathleen 06/11/21 at 1118, Anesthesia Intra-op Given 06/11/2021 11:18 AM GREEN CHAINER 4 mg fentaNYL (SUBLIMAZE) preservative free injection intravenous, As needed, Starting on Kathleen 06/11/21 at 1113, Anesthesia Intra-op Given 06/11/2021 11:13 AM GREEN CHAINER 100 mcg glycopyrrolate (ROBINUL) injection intravenous, Administer over 1 Minutes, As needed, Starting on Kathleen 06/11/21 at 1113, Anesthesia Intra-op Given 06/11/2021 11:13 AM GREEN CHAINER 0.2 mg Lactated Ringer's (LR) infusion 125 mL/hr, intravenous, Continuous, Starting on Kathleen 06/11/21 at 1000, Pre-Op, May discontinue when discharge criteria met. Restarted 06/11/2021 11:50 AM GREEN CHAINER Rate/Dose Verify 06/11/2021 11:07 AM GREEN CHAINER 50 mL/ hr New Bag 06/11/2021 9:46 AM GREEN CHAINER 125 mL/hr 125 mL/hr lidocaine (cardiac) (XYLOCAINE) preservative free injection intravenous, As needed, Starting on Kathleen 06/11/21 at 1113, Anesthesia Intra-op, Indications: Ventricular ArrhythmiasIndications:Ventricular Arrhythmias Given 06/11/2021 11:13 AM GREEN CHAINER 50 mg metroNIDAZOLE (FLAGYL) 500 mg/100 mL in sodium chloride (premix) 500 mg 500 mg, intravenous, at 200 mL/hr, Administer over 30 Minutes, Once, On Kathleen 06/11/21 at 1000, For 1 dose, Pre-Op, Administer within 60 minutes of incision. Room temperature only, Indications: Prophylaxis, SurgicalIndications:Prophylaxis, Surgical Given 06/11/2021 11:19 AM GREEN CHAINER 5 00 mg midazolam (VERSED) 1 mg/mL preservative free injection intravenous, Administer over 2 Minutes, As needed, Starting on Kathleen 06/11/21 at 1113, Anesthesia Intra-op Given 06/11/2021 11:13 AM GREEN CHAINER 2 mg ondansetron (ZOFRAN) injection intravenous, Administer over 2 Minutes, As needed, Starting on Kathleen 06/11/21 at 1119, Anesthesia Intra-op Given 06/11/2021 11:19 AM GREEN CHAINER 4 mg phenylephrine (JACOB-SYNEPHRINE) 1 mg/10 mL (100 mcg/mL) in sodium chloride 0.9% (premix) intravenous, As needed, Starting on Kathleen 06/11/21 at 1143, Anesthesia Intra-op Given 06/11/2021 11:43 AM GREEN CHAINER 100 mc g propofoL (DIPRIVAN) 10 mg/mL IV intravenous, As needed, Starting on Kathleen 06/11/21 at 1113, Anesthesia Intra-op Given 06/11/2021 11:13 AM GREEN CHAINER 150 mg documented in this encounter Care Teams Utility Repairer Relationship Specialty Start Date End Date Almita Smallwood MD [address] [place] [address] PCP - General 04/17/20 02/14/23 Almita Smallwood MD [address] [place] [address] Internal Medicine 04/17/20 Jacek Laura MD [address] [id number] Referring Physician Hematology 06/02/21 06/28/22 documented as of this encounter
--- OUTSIDE RECORDS SUMMARY | 2024-04-21 21:39 | XMS_ITS | Encounter Summary ---
Author Organization [facility] Healthcare Address [address] [place] [address] Care Team Providers Care Substation Electrician Supervisor Name Role Phone Almita Smallwood MD Primary Care Provider + Almita Smallwood MD Unavailable [phone] Reason for Referral * Diagnostic Imaging (Routine) - Closed Specialty Diagnoses / Procedures Referred By Tati campos Referred To Contact Diagnoses Care related to current tamoxifen use Procedures US Pelvis [place] [address] [place] [address] Phone: tel: fax: [facility] Referral ID Status Reason Start Date Expiration Date Visits Re quested Visits Authorized [id number] Closed 04/16/2020 05/16/2021 1 1 CLEANER Reason for Visit * Diagnostic Imaging (Routine) - Closed Specialty Diagnoses / Procedures Referred By Tati campos Referred To Contact Diagnoses Care related to current tamoxifen use Procedures US [place] [address] [address] [place] [place] [id number] Phone: tel: fax: [facility] Referral ID Status Reason Start Date Expiration Date Visits Re quested Visits Authorized [id number] Closed 04/16/2020 05/16/2021 1 1 Encounter Details Date Type Department Care Team (Late st Contact Info) Description 04/24/2020 8:00 AM FUR CLEANER - 04/24/2020 11:59 PM FUR CLEANER Hospital Encounter [facility] Imaging and Radiology [address] [place] [phone] [place] [address] [facility] [address] [place] [address] Care related to current tamoxifen use Discharge [...] on file Legal Sex Female 3:38 AM FUR CLEANER Gender Identity Not on file Sexual Orientation Not on file 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 My resident medical officer, Mee Winkler, will be calling you to schedule this. Please take either 2 Aleve or 4 Advil with a snack 1-2 hrs before your appointment. CC: Mee Winkler MA CLEANER documented in this encounter Plan of Treatment Not on file documented as of this encounter Procedures Procedure Name Priority Date/Time Associated Diagnosis Comments US PELVIS W ENDOVAGINAL Schedule Routine, Read Routine (OP Routine) 04/24/2020 9:19 AM FUR CLEANER Care related to current tamoxifen use documented in this encounter Results * US Pelvis W Endovaginal (04/24/2020 9:19 AM FUR CLEANER) Anatomical Region Laterality Modality Pelvis N/A Ultrasound 04/24/2020 10:0 4 AM FUR CLEANER Impressions 04/24/2020 10:07 AM FUR CLEANER The midline endometrial echo complex ranges in thickness from 6 to 20 mm. ??There is increased blood flow noted in the endometrium on color Doppler imaging. Electronically signed by: Gilmar Aaron M.D. Narrative 04/24/2020 10:07 AM FUR CLEANER EXAMINATION: US PELVIS W ENDOVAGINAL HISTORY: The [...] Gilmar Aaron M.D. Almita Obando MD [facility] NUSRAT KHALIL Final Result documented in this encounter Visit Diagnoses Diagnosis Care related to current tamoxifen use Prophylactic use of selective estrogen receptor modulators (SERMs) documented in this encounter Care Teams Substation Electrician Supervisor Relationship Specialty Start Date End Date Almita Smallwood MD [address] [place] [address] PCP - General 04/17/20 02/14/23 Almita Smallwood MD [address] [place] [address] Internal Medicine 04/17/20 documented as of this encounter
--- OUTSIDE RECORDS SUMMARY | 2024-04-21 21:39 | XMS_ITS | Encounter Summary ---
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 [...] SURGICAL PATHOLOGY Routine 06/27/2020 9: 00 AM FRONT OFFICE ASSISTANT Thickened endometrium documented in this encounter Results * Surgical pathology (06/27/2020 9:00 AM FRONT OFFICE ASSISTANT) Tissue (Endometrial biopsy) 06/27/2020 9:00 AM FRONT OFFICE ASSISTANT 06/30/2020 9:00 AM CDT Narrative PATHOLOGY CH - 07/01/2020 9:53 AM CDT EPIC results best viewed via link to PDF [facility] Department of Pathology [address] [place] [id number] Final Report Patient Name: ??ANITHA HERMOSILLO Address: ??[address],, ??[place], [place] [address] Gender: ??F : ??[id number] (Age: 60) Service: ??Laboratory Location: ??Lab Hospital #: ??[id number] Patient Type: ?? Ref Lab Accession # [id number] Taken: ??06/27/2020 Received: ??06/30/2020 Accessioned: ??06/30/2020 Reported: [...] by the Surgical Pathology Department at [facility] as part of an ongoing clinical quality assurance specialist program and in compliance with federally [...] characteristics determined by the Surgical Pathology Department [facility]. ??It has not been cleared or approved by the U. S. Food and Drug Administration. Almita Obando MD LAB PATHOLOG Y ORDERABLES Final Result PATHOLOGY [address] [place] [address] documented in this encounter Visit Diagnoses Diagnosis Thickened endometrium Nonspecific (abnormal) findings on radiological and other examination of genitourinary organs documented in this encounter Care Teams Lottery Office Manager Relationship Specialty Start Date End Date Almita Smallwood MD [address] [place] [address] PCP - General 04/17/20 02/14/23 Almita Smallwood MD [address] [place] [address] Internal Medicine 04/17/20 documented as of this encounter
--- OUTSIDE RECORDS SUMMARY | 2024-04-21 21:39 | XMS_ITS | Encounter Summary ---
Author Organization [facility] Healthcare Address [address] [place] [address] Care Team Providers Care Home Administrator Name Role Phone Almita Smallwood MD Primary Care Provider + Reason for Visit * Diagnostic Imaging (Routine) - Closed Specialty Diagnoses / Procedures Referred By Contac t Referred To Contact Procedures Breast Imaging Screening Outside Reference Linda Buckley MD PhD [phone] [place] [address] Phone: tel: fax: Referral ID Status Reason Start Date Expiration Date Visits Re quested Visits Authorized [id number] Closed 08/03/2021 09/02/2022 1 1 Encounter Details Date Type Department Care Team (Late st Contact Info) Description 02/21/2020 Hospital Encounter [facility] [address] [place] [id number] Social History Tobacco Use Types Packs/Day [...] on file Legal Sex Female 3:38 AM SWINGING CUT OFF SAW OPERATOR Gender Identity Not on file Sexual Orientation Not on file 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[employer]) Not on file Not on file Not on file documented as of this encounter Plan of Treatment Not on file documented as of this encounter Procedures Procedure Name Priority Date/Time Associated Diagnosis Comments BREAST IMAGING MG SCREENING OUTSIDE REFERENCE Routine 02/21/2020 12:00 AM SWINGING CUT OFF SAW OPERATOR documented in this encounter Results * Breast Imaging Screening Outside Reference (02/21/2020 12:00 AM SWINGING CUT OFF SAW OPERATOR) Impressions [facility] - 08/03/2021 10:35 AM CDT These images are for Reference purposes only and have not been reviewed by [facility]. ??There will be no report generated by a [facility] Radiologist. Narrative [facility] - 08/03/2021 10:35 AM CDT EXAMINATION: ??Images For Reference Purposes Only Linda Buckley MD PhD IMG MAMMO PROCEDURES Final Result [facility] documented in this encounter Visit Diagnoses Not on filedocumented in this encounter Care Teams Home Administrator Relationship Specialty Start Date End Date Almita Smallwood MD [address] [place] [address] PCP - General Internal Medicine 02/14/20 04/16/20 documented as of this encounter
--- OUTSIDE RECORDS SUMMARY | 2024-04-21 21:39 | XMS_ITS | Encounter Summary ---
Author Organization [facility] Healthcare Address [address] [place] [address] Care Team Providers Care Pathology Laboratory Director Name Role Phone Unavailable Primary Care Provider Unavailabl e Reason for Visit * Diagnostic Imaging (Routine) - Closed Specialty Diagnoses / Procedures Referred By Tati campos Referred To Contact Procedures Breast Imaging Screening Outside Reference Linda Buckley MD PhD Phone: tel: fax: Referral ID Status Reason Start Date Expiration Date Visits Re quested Visits Authorized [id number] Closed 07/02/2021 08/01/2022 1 1 Encounter Details Date Type Department Care Team (Late st Contact Info) Description 10/21/2017 Hospital Encounter [facility] Radiology [facility] [address] [place] [address] Social History Tobacco Use Types Packs/Day Years [...] on file 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 ??There will be no report generated by a [facility] Radiologist. Narrative [facility] - 07/02/2021 3:00 PM CDT EXAMINATION: ??Images For Reference Purposes Only us Linda Buckley MD PhD IMG MAMMO PROCEDURES Final Result [facility] documented in this encounter Visit Diagnoses Not on filedocumented in this encounter
--- OUTSIDE RECORDS SUMMARY | 2024-04-21 21:39 | XMS_ITS | Encounter Summary ---
Author Organization [facility] Healthcare Address [address] [place] [address] Care Team Providers Care Fur Finisher Seamstress Name Role Phone Unavailable Primary Care Provider Unavailabl e Reason for Visit * Diagnostic Imaging (Routine) - Closed Specialty Diagnoses / Procedures Referred By Tati t Referred To Contact Procedures Breast Imaging Diagnostic Outside Reference Linda Buckley MD PhD Phone: tel: fax: Referral ID Status Reason Start Date Expiration Date Visits Re quested Visits Authorized [id number] Closed 07/02/2021 08/01/2022 1 1 Encounter Details Date Type Department Care Team (Late st Contact Info) Description 10/27/2016 12:05 AM CDT Hospital Encounter [facility] Radiology [facility] [address] [place] [id number] Social History Tobacco Use Types Packs/Day Years [...] on file 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 ??There will be no report generated by a [facility] Radiologist. Narrative [facility] - 07/02/2021 3:01 PM CDT EXAMINATION: ??Images For Reference Purposes Only us Linda Buckley MD PhD IMG MAMMO PROCEDURES Final Result [facility] documented in this encounter Visit Diagnoses Not on filedocumented in this encounter
--- OUTSIDE RECORDS SUMMARY | 2024-04-21 21:39 | XMS_ITS | Encounter Summary ---
Author Organization [facility] Address [address] [facility] [address] [place] [address] Care Team Providers Care High School Sports Coach Name Role Phone Almita Smalwlood MD Primary Care Provider + Almita Smallwood MD Unavailable [phone] Reason for Referral * Procedure (Routine) - Closed Specialty Diagnoses / Procedures Referred By Tati campos Referred To Contact Diagnoses Thickened endometrium Procedures [place]ometrial [place] [address] [address] Phone: tel: fax: [facility] Referral ID Status Reason Start Date Expiration Date Visits Re quested Visits Authorized [id number] Closed 06/27/2020 07/27/2021 1 1 TE AND TRUST TAX PRINCIPAL Reason for Visit * Reason Comments endometrial biopsy pt here for endometr ial biopsy Encounter Details Date Type Department Care Team (Late st Contact Info) Description 06/27/2020 9:00 AM ESTATE AND TRUST TAX PRINCIPAL Office Visit [facility] Gynecology at [facility] [address] 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 N ot on file Not on file documented as of this encounter Last Filed Vital Signs Vital Sign Reading Time Taken Comments Blood Pressure 139/77 06/27/2020 8:57 AM ESTATE AND TRUST TAX PRINCIPAL Pulse 97 06/27/2020 8:57 AM ESTATE AND TRUST TAX PRINCIPAL Temperature - - Respiratory Rate - - Oxygen Saturation - - Inhaled Oxygen Concentration - - Weight 71.2 kg (157 lb) 06/27/2020 8:57 AM ESTATE AND TRUST TAX PRINCIPAL Height 167.6 cm (5' 6 ) 06/27/2020 8:57 AM ESTATE AND TRUST TAX PRINCIPAL Body Mass Index 25.34 06/27/2020 8:57 AM ESTATE AND TRUST TAX PRINCIPAL documented in this encounter Patient Instructions * Patient Instructions* Almita Obando MD - 06/27/2020 9:00 AM ESTATE AND TRUST TAX PRINCIPAL Please review the information sheet About Your [...] heard from the office after 7-10 days. TE AND TRUST TAX PRINCIPAL documented in this encounter Progress Notes * Almita Obando MD - 06/27/2020 9:00 AM CST TRAVEL OT visit note Chief Complaint: Chief Complaint endometrial [...] 11/2016 For Stage 0 breast CA at [facility] in [place], [place]. No chemorx or XRT, only Tamoxifen. ??? TUBAL LIGATION Social History Socioeconomic History ??? Marital status: Spouse name: None ??? Number of children: 2 ??? Years of education: None ??? Highest education level: None Occupational History ??? 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 Tobacco Use ??? Smoking status: Former Smoker [...] Gatherings with Friends and Family: ??? Attends Faith Services: ??? Active Member of Clubs or [...] Combo Route) route., Disp: , Rfl: ??? gezivkhooio-pzzdggrgq-badcwyri (TRELEGY ELLIPTA) 100-62.5-25 mcg inhaler, Inhale 1 [...] Surgical pathology; Future Almita Obando MD 06/27/2020 TE AND TRUST TAX PRINCIPAL documented in this encounter Procedure Notes * [...] Scant tissue obtained despite two 4-quadrant passes. TE AND TRUST TAX PRINCIPAL documented in this encounter Plan of Treatment Not on file documented as of this encounter Procedures Procedure Name Priority Date/Time Associated Diagnosis Comments [place] ENDOMETRIAL BX W/WO ENDOCERVIX BX W/O DILAT SPX Routine 06/27/2020 9:00 AM ESTATE AND TRUST TAX PRINCIPAL Thickened endometrium documented in this encounter Results * [place] ENDOMETRIAL BX W/WO ENDOCERVIX BX W/O DILAT SPX (06/27/2020 9:00 AM ESTATE AND TRUST TAX PRINCIPAL) Narrative Almita Obando MD - 06/27/2020 9:00 AM ESTATE AND TRUST TAX PRINCIPAL Almita Obando MD ? 06/27/2020 10:23 AM [...] Result * Surgical pathology (06/27/2020 9:00 AM ESTATE AND TRUST TAX PRINCIPAL) Tissue (Endometrial biopsy) 06/27/2020 9:00 AM ESTATE AND TRUST TAX PRINCIPAL 06/30/2020 9:00 AM CDT Narrative PATHOLOGY - 07/01/2020 9:53 AM CDT [facility] results best viewed via link to PDF [facility] Department of Pathology [address] [place] [address] Final Report Patient Name: ??ANITHA HERMOSILLO Address: ??[address],, ??[place], [place] [address] Gender: ??F : ??1960 (Age: 60) Service: ??Laboratory Location: ??Lab Hospital #: ??[id number] Patient Type: ?? Ref Lab Accession # ?[id number] Taken: ??06/27/2020 Received: ??06/30/2020 Accessioned: ??06/30/2020 Reported: [...] Surgical Pathology Department at [facility] as part of an ongoing quality systems technician program and in compliance with federally [...] by the Surgical Pathology Department [facility]. ??It has not been cleared or approved by the U. S. Food and Drug Administration. Almita Obando MD LAB PATHOLOG Y ORDERABLES Final Result PATHOLOGY [address] [place] [address] documented in this encounter Visit Diagnoses Diagnosis [...] 06/29/2022 added in this encounter Care Teams High School Sports Coach Relationship Specialty Start Date End Date Almita Smallwood MD [address] [place] [address] PCP - General 04/17/20 02/14/23 Almita Smallwood MD [address] [place] [address] Internal Medicine 04/17/20 documented as of this encounter
--- OUTSIDE RECORDS SUMMARY | 2024-04-21 21:39 | XMS_ITS | Encounter Summary ---
Author Organization [facility] Address [address] [place] [address] Phone Care Team Providers Care Test Facility Engineer Name Role Phone Almita Smallwood MD Primary Care Provider + Reason for Visit * Reason Onset Date Comments Scheduling Appointments 02/28/2020 pt. did not want to schedule at this time, will call back when she is ready. Encounter Details Date Type Department Care Team (Late st Contact Info) Description 02/28/2020 Telephone [facility] [address] [facility] [place] [facility] 7th [place] [address] [place] [id number] No, Physician Scheduling Appointments (pt. did not want to schedule at this time, will call back when she is ready. 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 did not want to schedule at this time, will call back when she is ready. CLE DYNAMICS ENGINEER documented in this encounter Plan of Treatment Not on file documented as of this encounter Visit Diagnoses Not on filedocumented in this encounter Care Teams Test Facility Engineer Relationship Specialty Start Date End Date Almita Smallwood MD [address] [place] [address] PCP - General Internal Medicine 02/14/20 04/16/20 documented as of this encounter
--- OUTSIDE RECORDS SUMMARY | 2024-04-21 21:39 | XMS_ITS | Encounter Summary ---
Author Organization [facility] Healthcare Address [address] [place] [address] Care Team Providers Care Computer Graphics Illustrator Name Role Phone Unavailable Primary Care Provider Unavailabl e Reason for Visit * Diagnostic Imaging (Routine) - Closed Specialty Diagnoses / Procedures Referred By Tati t Referred To Contact Procedures Breast Imaging Diagnostic Outside Reference Linda Buckley MD PhD Phone: tel: fax: Referral ID Status Reason Start Date Expiration Date Visits Re quested Visits Authorized [id number] Closed 07/02/2021 08/01/2022 1 1 Encounter Details Date Type Department Care Team (Late st Contact Info) Description 11/22/2016 12:05 AM CDT Hospital Encounter [facility] [address] [place] [id number] Social History Tobacco Use Types Packs/Day Years [...] on file 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 ??There will be no report generated by a [facility] Radiologist. Narrative [facility] - 07/02/2021 3:09 PM CDT EXAMINATION: ??Images For Reference Purposes Only us Linda Buckley MD PhD IMG MAMMO PROCEDURES Final Result [facility] documented in this encounter Visit Diagnoses Not on filedocumented in this encounter
--- OUTSIDE RECORDS SUMMARY | 2024-04-21 21:39 | XMS_ITS | Encounter Summary ---
Author Organization [facility] Address [address] [place] [address] Care Team Providers Care Track Laying Supervisor Name Role Phone Unknown, Lorelei Primary Care Provider Unavail able Almita Smallwood MD Primary Care Provider + Encounter Details Date Type Department Care Team ([facility] st Contact Info) Description [address] [address] Estrella Cedeño, RN Social History Tobacco Use Types Packs/Day Years Used Date Smoking Tobacco: Never Assessed Comments Unknown Sex and Gender Information Value Date Recorded Sex Assigned at Not on file Legal Sex Female 3:38 AM SUBSTATION SUPERINTENDENT Gender Identity Not on file Sexual Orientation Not on file documented as of this encounter Miscellaneous Notes * Telephone Encounter - Estrella Cedeño, RN - 2020 9:03 AM CDT Received the following request through the [facility] website. Patient was contacted and left a voicemail to call back [facility] at their convenience. From: [facility] Website <[email or web address]> Sent: Monday, February 10, 2020 4:06 PM To: Estrella Cedeño <[email or web address]> Subject: New submission from Request an Appointment [...] you ever been a patient at the [facility] or [facility]? No Additional Information (Optional) I had [...] on filedocumented in this encounter Care Teams Track Laying Supervisor Relationship Specialty Start Date End Date Unknown, Notinfile PCP - General 10/17/18 02/13/20 Almita Smallwood MD [address] [place] [address] PCP - General Internal Medicine 02/14/20 04/16/20 documented as of this encounter
--- OUTSIDE RECORDS SUMMARY | 2024-04-21 21:39 | XMS_ITS | Encounter Summary ---
Author Organization [facility] Healthcare Address [address] [place] [address] Care Team Providers Care Resource Conservationist Name Role Phone Almita Smallwood MD Primary Care Provider + Almita Smallwood MD Unavailable [phone] Reason for Referral * Diagnostic Imaging (Routine) - Closed Specialty Diagnoses / Procedures Referred By Tati campos Referred To Contact Diagnoses Thickened endometrium Procedures US [place]vis [place] [address] [place] [address] Phone: tel: fax: [facility] Referral ID Status Reason Start Date Expiration Date Visits Re quested Visits Authorized [id number] Closed 07/17/2020 08/16/2021 1 1 EL POWER SHOVEL OPERATOR Reason for Visit * Diagnostic Imaging (Routine) - Closed Specialty Diagnoses / Procedures Referred By Tati campos Referred To Contact Diagnoses Thickened endometrium Procedures US [place] [address] [address] [address] Phone: tel: fax: [facility] Referral ID Status Reason Start Date Expiration Date Visits Re quested Visits Authorized [id number] Closed 07/17/2020 08/16/2021 1 1 Encounter Details Date Type Department Care Team (Late st Contact Info) Description 03/19/2021 8:07 AM DIESEL POWER SHOVEL OPERATOR - 03/19/2021 11:59 PM DIESEL POWER SHOVEL OPERATOR Hospital Encounter [facility] [address] [place], [place] [id number] [place] [address] 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 Endometrial thickening of 11 mm. ??Differential includes hyperplasia, polyp and carcinoma. Electronically signed by: Antoinette Jimenes M.D. Narrative 03/20/2021 8:20 AM DIESEL POWER SHOVEL OPERATOR EXAM: PELVIC ULTRASOUND DATE: 03/19/2021 8:30 AM [...] organs documented in this encounter Care Teams Resource Conservationist Relationship Specialty Start Date End Date Almita Smallwood MD [address] [place] [address] PCP - General 04/17/20 02/14/23 Almita Smallwood MD [address] [place] [address] Internal Medicine 04/17/20 documented as of this encounter
--- OUTSIDE RECORDS SUMMARY | 2024-04-21 21:39 | XMS_ITS | Encounter Summary ---
Author Organization [facility] Healthcare Address [address] [place] [address] Care Team Providers Care Circulating Process Inspector Name Role Phone Unavailable Primary Care Provider Unavailabl e Reason for Visit * Diagnostic Imaging (Routine) - Closed Specialty Diagnoses / Procedures Referred By Tati campos Referred To Contact Procedures Breast Imaging Diagnostic Outside Reference Linda Buckley MD PhD Phone: tel: fax: Referral ID Status Reason Start Date Expiration Date Visits Re quested Visits Authorized [id number] Closed 06/03/2021 07/03/2022 1 1 Encounter Details Date Type Department Care Team (Latest Contact Info) Description 05/26/2017 - 05/26/2017 11:59 PM GANG PLANK WORKMAN Hospital Encounter [facility]iology [facility] [address] [place] [id number] Discharge Disposition: Discharge to home or self care Social History Tobacco Use Types Packs/Day Years Used Date Smoking Tobacco: Never Assessed Comments Unknown Sex and Gender Information Value Date Recorded Sex Assigned at Not on file Legal Sex Female 3:38 AM GANG PLANK WORKMAN Gender Identity Not on file Sexual Orientation Not on file documented as of this encounter Discharge Disposition Disposition Code Departure Means Destination Discharge to home or self care documented in this encounter Plan of Treatment Not on file documented as of this encounter Procedures Procedure Name Priority Date/Time Associated Diagnosis Comments BREAST IMAGING MG DIAGNOSTIC OUTSIDE REFERENCE Routine 05/26/2017 12:00 AM GANG PLANK WORKMAN documented in this encounter Results * Breast Imaging Diagnostic Outside Reference (05/26/2017 12:00 AM GANG PLANK WORKMAN) Impressions [facility] - 06/03/2021 9:38 AM GANG PLANK WORKMAN These images are for Reference purposes only and have not been reviewed by [facility] Radiology. ??There will be no report generated by a [facility] Radiologist. Narrative [facility] - 06/03/2021 9:38 AM GANG PLANK WORKMAN EXAMINATION: ??Images For Reference Purposes Only us Linda Buckley MD PhD IMG MAMMO PROCEDURES Final Result [facility] documented in this encounter Visit Diagnoses Not on filedocumented in this encounter
--- OUTSIDE RECORDS SUMMARY | 2024-04-21 21:39 | XMS_ITS | Encounter Summary ---
Author Organization [facility] Address [address] [place] [address] Phone Care Team Providers Care Favor Maker Name Role Phone Almita Smallwood MD Primary Care Provider + Almita Smallwood MD Unavailable [phone] Encounter Details Date Type Department Care Team (Late st Contact Info) Description 04/30/2021 Telephone [facility] Surgery [address] [facility] 5[address] [place] [address] [place] [address] Anna Wu CPhT Social History [...] on file Legal Sex Female 3:38 AM ALIGNER TYPEWRITER Gender Identity Not on file Sexual Orientation Not on file 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 NER TYPEWRITER documented in this encounter Plan of Treatment Not on file documented as of this encounter Visit Diagnoses Not on filedocumented in this encounter Care Teams Favor Maker Relationship Specialty Start Date End Date Almita Smallwood MD [address] [place] [address] PCP - General 04/17/20 02/14/23 Almita Smallwood MD [address] [place] [address] Internal Medicine 04/17/20 documented as of this encounter
--- OUTSIDE RECORDS SUMMARY | 2024-04-21 21:39 | XMS_ITS | Encounter Summary ---
Author Organization [facility] Address [address] [facility] [address] [place] [address] Care Team Providers Care Asbestos Abatement Technician Name Role Phone Almita Smallwood MD Primary Care Provider + Reason for Referral * Diagnostic Imaging (Routine) - Closed Specialty Diagnoses / Procedures Referred By Contac t Referred To Contact Diagnoses Care related to current tamoxifen use Procedures US Pelvis [place] [address] [address] [facility] [address] [place] [address] Phone: tel: fax: [facility] Referral ID Status Reason Start Date Expiration Date Visits Re quested Visits Authorized [id number] Closed 04/16/2020 05/16/2021 1 1 OUT Reason for Visit * Reason Comments Well Women Visit pt here for wwe Encounter Details Date Type Department Care Team (Late st Contact Info) Description 04/16/2020 10:00 AM TURN OUT Office Visit 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 N ot on file Not on file documented as of this encounter Last Filed Vital Signs Vital Sign Reading Time Taken Comments Blood Pressure 110/70 04/16/2020 10:32 AM TURN OUT Pulse - - Temperature - - Respiratory Rate - - Oxygen Saturation - - Inhaled Oxygen Concentration - - Weight 72.6 kg (160 lb) 04/16/2020 10:32 AM TURN OUT Height 167.6 cm (5' 6 ) 04/16/2020 10:32 AM TURN OUT Body Mass Index 25.82 04/16/2020 10:32 AM TURN OUT documented in this encounter Patient Instructions * Patient Instructions* Almita Obando MD - 04/16/2020 10:00 AM TURN OUT Please activate your Vigohart ([phone]) so you can check for the results of your Pap smear in 7-10 days. Please call [phone] to schedule a pelvic ultrasound here at [facility]. You can callback for results a couple days later at [phone]. OUT documented in this encounter Progress Notes * [...] was in 02/2020. Last saw Jose, Dr. Cian at [facility] on 02/25/20. No vaginitis symptoms. No bleeding [...] Medical History: Diagnosis Date ??? Breast cancer ([facility]) Past Surgical History: Procedure Laterality Date ??? BREAST LUMPECTOMY Left 11/2016 For Stage 0 breast CA at [facility] in [place], [place]. No chemorx or XRT, only Tamoxifen. ??? TUBAL LIGATION Social History Socioeconomic History ??? Marital status: Spouse name: Not on file ??? Number of children: 2 ??? Years of education: Not on file ??? Highest education level: Not on file Occupational History ??? 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 Social Needs ??? Financial resource strain: Not [...] file Gets together: Not on file Attends alevism service: Not on file Active member of [...] Current on mammogram. Current on follow-up with [facility]. Care related to current tamoxifen use Comments: Pelvic ultrasound ordered to assess endometrial thickness. Orders: - US Pelvis W Endovaginal; Future Body mass index is 25.82 kg/m??. Almita Obando MD OUT documented in this encounter Plan of Treatment Not on file documented as of this encounter Results * US Pelvis W Endovaginal (04/24/2020 9:19 AM TURN OUT) Anatomical Region Laterality Modality Pelvis N/A Ultrasound 04/24/2020 10:0 4 AM TURN OUT Impressions 04/24/2020 10:07 AM TURN OUT The midline endometrial echo complex ranges in thickness from 6 to 20 mm. ??There is increased blood flow noted in the endometrium on color Doppler imaging. Electronically signed by: Gilmar Aaron M.D. Narrative 04/24/2020 10:07 AM TURN OUT EXAMINATION: US PELVIS W ENDOVAGINAL HISTORY: The [...] Electronically signed by: Gilmar Aaron M.D. Result [facility] Almita Obando MD [facility] Final Result documented in this [...] 04/16/2020 documented in this encounter Care Teams Asbestos Abatement Technician Relationship Specialty Start Date End Date Almita Smallwood MD [address] [place] [address] PCP - General Internal Medicine 02/14/20 04/16/20 documented as of this encounter
--- OUTSIDE RECORDS SUMMARY | 2024-04-21 21:39 | XMS_ITS | Encounter Summary ---
Author Organization [facility] Healthcare Address [address] [place] [address] Care Team Providers Care Truck Loader Overhead Crane Name Role Phone Unavailable Primary Care Provider Unavailabl e Reason for Visit * Diagnostic Imaging (Routine) - Closed Specialty Diagnoses / Procedures Referred By Tati campos Referred To Contact Procedures Breast Imaging Diagnostic Outside Reference Linda Buckley MD PhD Phone: tel: fax: Referral ID Status Reason Start Date Expiration Date Visits Re quested Visits Authorized [id number] Closed 07/02/2021 08/01/2022 1 1 Encounter Details Date Type Department Care Team (Late st Contact Info) Description 06/21/2018 Hospital Encounter [facility] [address] [place] [address] Social History Tobacco Use Types Packs/Day Years [...] on file Legal Sex Female 3:38 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 SUPERVISOR Gender Identity Not on file Sexual Orientation Not on file 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[employer]) Not on file Not on file Not on file documented as of this encounter Plan of Treatment Not on file documented as of this encounter Procedures Procedure Name Priority Date/Time Associated Diagnosis Comments BREAST IMAGING MG DIAGNOSTIC OUTSIDE REFERENCE Routine 06/21/2018 12:00 AM SHIPYARD PAINTING SUPERVISOR documented in this encounter Results * Breast Imaging Diagnostic Outside Reference (06/21/2018 12:00 AM SHIPYARD PAINTING SUPERVISOR) Impressions [facility] - 07/02/2021 3:03 PM CDT These images are for Reference purposes only and have not been reviewed by [facility] Radiology. ??There will be no report generated by a [facility] Radiologist. Narrative [facility] - 07/02/2021 3:03 PM CDT EXAMINATION: ??Images For Reference Purposes Only us Linda Buckley MD PhD IMG MAMMO PROCEDURES Final Result [facility] documented in this encounter Visit Diagnoses Not on filedocumented in this encounter
--- OUTSIDE RECORDS SUMMARY | 2024-04-21 21:39 | XMS_ITS | Encounter Summary ---
Author Organization [facility] Healthcare Address [address] [place] [address] Care Team Providers Care Willow Specialists Name Role Phone Almita Smallwood MD Primary Care Provider + Almita Smallwood MD Unavailable [phone] Jacek Laura MD Unavailable [phone] Encounter Details Date Type Department Care Team (Late st Contact Info) Description 06/07/2021 6:25 PM CASINO OPERATIONS SUPERVISOR Lab [address] [address] Pre-operative laboratory examination Social History Tobacco Use [...] on file Legal Sex Female 3:38 AM CASINO OPERATIONS SUPERVISOR Gender Identity Not on file Sexual Orientation Not on file 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 ??Testing performed by the [facility] Molecular Infectious Disease Laboratory. The 2018-Novel Coronavirus [...] May 22, 2020. First COVID-19 test? Unknown [facility] Employeed in healthcare? Unknown [facility] status? No [facility] Group care resident? No [facility] Hospitalized? Unknown [facility] Is patient in ICU? Unknown [facility] Symptomatic as defined by CDC? No [facility] Nasopharyngeal 06/07/2021 11 :11 AM CASINO OPERATIONS SUPERVISOR 06/07/2021 7:00 PM CASINO OPERATIONS SUPERVISOR N[facility]ative [facility] [place] - 06/07/2021 11:58 PM CASINO OPERATIONS SUPERVISOR What is the reason for testing?->Screening prior to scheduled??procedure or surgery??(Batched) Almita Obando MD LAB MICROBIOLOGY - GENERAL ORDERABLES Final Result Performing Organization Address City/State/[facility] Co de Phone Number ISELA [facility] One [facility] Department [place] [address] documented in this encounter Visit Diagnoses Diagnosis Pre-operative laboratory examination Pre-procedural laboratory examination documented in this encounter Care Teams Willow Specialists Relationship Specialty Start Date End Date Almita Smallwood MD [address] [place] [phone] PCP - General 04/17/20 02/14/23 Almita Smallwood MD [address] [place] [address] Internal Medicine 04/17/20 Jacek Laura MD [address] [address] Referring Physician Hematology 06/02/21 06/28/22 documented as of this encounter
--- OUTSIDE RECORDS SUMMARY | 2024-04-21 21:39 | XMS_ITS | Encounter Summary ---
Author Organization [facility] Address [address] [place] [address] Care Team Providers Care Card Grader Name Role Phone Almita Smallwood MD Primary Care Provider + Almita Smallwood MD Unavailable Encounter Details Date Type Department Care Team (Late st Contact Info) Description 03/26/2021 Orders Only [facility] Gynecology at [facility] [address] [facility] [address] [place] [address] [place] [address] [facility] [address] [place] [address] Social History Tobacco Use Types [...] on file Legal Sex Female 3:38 AM FORMING TUBE SELECTOR Gender Identity Not on file Sexual Orientation Not on file 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 Not on file N ot on file Not on file documented as of this encounter Progress Notes * Almita Obando MD - 03/26/2021 4:15 PM CST Surgery scheduling orders: Diagnosis: Thickened endometrium Surgeon: Dr. Obando Procedure: Hysteroscopy. D&C. Desired location: [facility] Case classification: Elective Length of case: 1 hour Preferred dates/times: morning/afternoon Anesthesia: Anesthesia preference Patient status: Outpatient Preop visit needed: No Additional labs requested: To be ordered Antibiotics: cefazolin PLUS metronidazole DVT prophylaxis: SCDs IVF type: lactated ringers 125 mL/hr Please schedule 2 week postoperative visit ING TUBE SELECTOR * Mee Winkler MA - 03/26/2021 4:15 PM CST Per Wilfredo @ [facility], [place] needed and started for CPT: 03495. Approval # [id number] 05/28/21-08/26/21 Surgery: 05/28/21 @ 11am Post op: 06/12/21 @ 8am Pt notified ING TUBE SELECTOR documented in this encounter Plan of Treatment Not on file documented as of this encounter Visit Diagnoses Not on filedocumented in this encounter Care Teams Card Grader Relationship Specialty Start Date End Date Almita Smallwood MD [address] [place] [address] PCP - General 04/17/20 02/14/23 Almita Smallwood MD [address] [place] [address] Internal Medicine 04/17/20 documented as of this encounter
--- OUTSIDE RECORDS SUMMARY | 2024-04-21 21:39 | XMS_ITS | Encounter Summary ---
Author Organization [facility] Address [address] [place] [address] Phone Care Team Providers Care Insole Beveler Name Role Phone Almita Smallwood MD Primary Care Provider + Almita Smallwood MD Unavailable [phone] Encounter Details Date Type Department Care Team (Late st Contact Info) Description 05/26/2021 Orders Only [facility] Surgery [address] [facility] 5th [place] [address] [place] [address] Linda Buckley MD PhD [address] [facility] [phone] [place] [address] Social History Tobacco Use Types Packs/Day Years [...] on file Legal Sex Female 3:38 AM POLICY ADVISOR Gender Identity Not on file Sexual Orientation Not on file 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[employer]) Not on file Not on file Not on file documented as of this encounter Plan of Treatment Scheduled Orders Name Type Priority Associated Diagnoses Orde r Schedule Breast Imaging Outside Consult Imaging Routine Expected: 2021, Expires: 05/26/2022 documented as of this encounter Visit Diagnoses Not on filedocumented in this encounter Care Teams Insole Beveler Relationship Specialty Start Date End Date Almita Smallwood MD [address] [place] [address] PCP - General 04/17/20 02/14/23 Almita Smallwood MD [address] [place] [address] Internal Medicine 04/17/20 documented as of this encounter
--- OUTSIDE RECORDS SUMMARY | 2024-04-21 21:39 | XMS_ITS | Encounter Summary ---
Author Organization [facility] Address [address] [address] [place] [address] Care Team Providers Care Geospatial Information Technologist Name Role Phone Almita Smallwood MD Primary Care Provider + Almita Smallwood MD Unavailable [phone] Encounter Details Date Type Department Care Team (Late st Contact Info) Description 04/23/[address] 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 Not on file N ot on file Not on file documented as of this encounter Miscellaneous Notes * Telephone Encounter - Mee Winkler MA - 04/24/2021 9:10 AM CST Pt notified NE SERVICE MANAGER * Telephone Encounter - Almita Obando MD - 04/23/2021 5:04 PM CST Mee, please call this patient to postpone her 05/28/21 surgery due to the recent COVID-19 surge. Once the hospital allows us to do elective surgeries again, we will call her to reschedule. Please let [facility] know. NE SERVICE MANAGER documented in this encounter Plan of Treatment Not on file documented as of this encounter Visit Diagnoses Not on filedocumented in this encounter Care Teams Geospatial Information Technologist Relationship Specialty Start Date End Date Almita Smallwood MD [address] [place] [address] PCP - General 04/17/20 02/14/23 Almita Smallwood MD [address] [place] [address] Internal Medicine 04/17/20 documented as of this encounter
--- OUTSIDE RECORDS SUMMARY | 2024-04-21 21:39 | XMS_ITS | Encounter Summary ---
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[employer]) Not on file Not on file Not on file documented as of this encounter Plan of Treatment Not on file documented as of this encounter Procedures Procedure Name Priority Date/Time Associated Diagnosis Comments THINPREP PAP, HPV REFLEX Routine 04/29/2021 11:03 AM TREE CHIPPER documented in this encounter Results * ThinPrep Pap, HPV Reflex (04/29/2021 11:03 AM TREE CHIPPER) Pap test 04/29/2021 11:0 3 AM TREE CHIPPER 04/29/2021 11:03 AM TREE CHIPPER Narrative 05/01/2021 12:44 PM TREE CHIPPER [facility] Department of Pathology [address] [place], [place] [id number] Final Report with Addendum Note to Patients: [...] the details. Patient Name: ??ANITHA HERMOSILLO Address: ??[address],, ?? [place] [address] Gender: ??F : ??1960 (Age: 61) Service: ??Laboratory Location: ??Lab Hospital #: ??[id number] Patient Type: ?? Ref Lab Taken: ??04/29/2021 [...] determined by the Surgical Pathology Department at [facility] as part of an ongoing machined parts quality inspector program and in compliance with federally mandated [...] characteristics determined by the Surgical Pathology Department [facility]. ??It has not been [...] 04/29/2021 documented in this encounter Care Teams Trench Shovel Operator Relationship Specialty Start Date End Date Almita Smallwood MD [address] [place] [address] PCP - General 04/17/20 02/14/23 Almita Smallwood MD [address] [place] [address] Internal Medicine 04/17/20 documented as of this encounter
--- OUTSIDE RECORDS SUMMARY | 2024-04-21 21:39 | XMS_ITS | Encounter Summary ---
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 Repeat pap in 3 years, or sooner if desired. ER SOFTWARE ENGINEER documented in this encounter Plan of Treatment Not on file documented as of this encounter Procedures Procedure Name Priority Date/Time Associated Diagnosis Comments PAP WITH REFLEX TO HIGH RISK HPV Routine 04/16/2020 9:07 AM SERVER SOFTWARE ENGINEER documented in this encounter Results * Pap with reflex to High Risk HPV (04/16/2020 9:07 AM SERVER SOFTWARE ENGINEER) 04/16/2020 9:07 AM SERVER SOFTWARE ENGINEER 04/16/2020 9:07 AM SERVER SOFTWARE ENGINEER Narrative [facility] - 04/21/2020 10:13 AM SERVER SOFTWARE ENGINEER [facility] Department of Pathology [address] [place] [address] Final Report with Addendum Patient Name: ??ANITHA HERMOSILLO Address: ??[address],, ?? [place] [address] Gender: ??F : ??1960 (Age: 60) Service: ??Laboratory Location: ??Lab Hospital #: ??[id number] Patient Type: ?? Ref Lab Taken: ??04/16/2020 Received: ??04/16/2020 Accessioned:: ??04/17/2020 Reported: ??04/21/2020 Physician(s): Almita Obando Diagnosis: Source of Specimen: ? Imaged Thinprep Pap Test plus HPV - Field Ring Assembler Cytologic Material Specimen Adequacy: ?- Specimen satisfactory [...] Imaged Thinprep Pap Test plus HPV - Field Ring Assembler Cytologic Material Clinical History: Last Menstrual Period: [...] Health Care as part of an ongoing senior quality assurance analyst program and in compliance with federally [...] characteristics determined by the Surgical Pathology Department [facility]. ??It has not been cleared or approved by the U. S. Food and Drug Administration. Almita Obando MD LAB CYTOLOGY ORDERABLES Final Result [facility] [address] [place] [address] documented in this encounter Visit Diagnoses Diagnosis Screening for malignant neoplasm of cervix Screening for malignant neoplasm of the cervix documented in this encounter Care Teams Claim Investigator Relationship Specialty Start Date End Date Almita Smallwood MD [address] [place] [phone] PCP - General Internal Medicine 02/14/20 04/16/20 documented as of this encounter
--- OUTSIDE RECORDS SUMMARY | 2024-04-21 21:39 | XMS_ITS | Encounter Summary ---
Author Organization [facility] Address [address] [facility] [facility] [address] [place] [address] Care Team Providers Care Security System Installer Name Role Phone Wolfgang Smallwood MD Primary Care Provider + Wolfgang Smallwood MD Unavailable [phone] Jacek Laura MD Unavailable Encounter Details Date Type Department Care Team (Late st Contact Info) Description 06/07/2021 Orders Only [facility] Testing Site - [facility]. 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 Class: Internal Referral Ordering User: Mee Winkler MA Auth Provider: WOLFGANG OBANDO Provider: Wolfgang Obando MD Diagnosis: Preop testing Department: [facility] Fishing Gear Mechanic At [facility] Instruct: ?? Comment: ?? Order Specific Questions Question Answer Comment Testing types: Pre-procedure ?? Date of Px/chemo/treatment/placement/transfer 06/07/2021 ?? Testing site patient will be sent to: [facility] ?? Date testing requested: 06/07/2021 ?? Testing: COVID-19 RNA ?? Is this the first COVID-19 test for this patient? Unknown ?? Does the patient currently work in a healthcare facility with direct patient contact? Unknown ?? Is the patient a resident of a congregate care or living setting? Unknown ?? ? No ?? Please select the performing region: [facility] ER BLACK BELT documented in this encounter Miscellaneous Notes * Addendum Note - Lori Hoover - 06/07/2021 9:26 AM CSTAddended by: LORI HOOVER on: 06/07/2021 06:21 PM Modules accepted: Orders ER BLACK BELT documented in this encounter Plan of Treatment Not on file documented as of this encounter Results * COVID-19 Coronavirus RNA Nasopharyngeal (06/07/2021 11:11 AM MASTER BLACK BELT) COVID-19 RNA Not Detected ISELA [facility] Comment: Interpretive Data Synonyms for this test include: PCR and NAAT . ??Testing performed by the [facility] Molecular Infectious Disease Laboratory. [...] ISELA GARCIA Nasopharyngeal 06/07/2021 11 :11 AM MASTER BLACK BELT 06/07/2021 7:00 PM MASTER BLACK BELT Narrative ISELA GARCIA - 06/07/2021 11:58 PM MASTER BLACK BELT What is the reason for testing?->Screening prior to scheduled??procedure or surgery??(Batched) Wolfgang Obando MD LAB MICROBIOLOGY - GENERAL ORDERABLES Final Result Performing Organization Address City/State/[facility] Co de Phone Number ISELA RENTERIA One [facility] Department [place] [address] documented in this encounter Visit Diagnoses Diagnosis Pre-operative laboratory examination- Primary Pre-procedural laboratory examination Pre-operative laboratory examination Pre-procedural laboratory examination documented in this encounter Care Teams Security System Installer Relationship Specialty Start Date End Date Wolfgang Smallwood MD [address] [place] [address] PCP - General 04/17/20 02/14/23 Wolfgang Smallwood MD [address] [place] [address] Internal Medicine 04/17/20 Jacek Laura MD [address] [place] [phone] Referring Physician Hematology 06/02/21 06/28/22 documented as of this encounter
--- OUTSIDE RECORDS SUMMARY | 2024-04-21 21:39 | XMS_ITS | Encounter Summary ---
Author Organization [facility] Address [address] [facility] [address] [facility] [address] [place] [address] Care Team Providers Care Director Of Enterprise Architecture Name Role Phone Almita Smallwood MD Primary Care Provider + Almita Smallwood MD Unavailable [phone] Encounter Details Date Type Department Care Team (Late st Contact Info) Description 08/14/2020 7:30 AM CDT Immunization [address] [address] Encounter for vaccination (Primary Dx) Social History [...] on file Legal Sex Female 3:38 AM APPLICATION DEVELOPMENT TEAM LEAD Gender Identity Not on file Sexual Orientation Not on file 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 Not on file N ot on file [...] 08/14/2020 documented in this encounter Care Teams Director Of Enterprise Architecture Relationship Specialty Start Date End Date Almita Smallwood MD [address] [place] [address] PCP - General 04/17/20 02/14/23 Almita Smallwood MD [address] [place] [address] Internal Medicine 04/17/20 documented as of this encounter
--- OUTSIDE RECORDS SUMMARY | 2024-04-21 21:39 | XMS_ITS | Encounter Summary ---
Author Organization [facility] Address [address] [place] [address] Phone Care Team Providers Care Bottom Sander Name Role Phone Almita Smallwood MD Primary Care Provider + Almita Smallwood MD Unavailable [phone] Jacek Laura MD Unavailable [phone] Yuri Rocha MD Unavailable [phone] Boone Dunham DO Primary Care Provider [phone] Angela Garza NP Primary Care Provider [phone] Encounter Details Date Type Department Care Team (Late st Contact Info) Description 06/08/2021 Telephone [facility] Oncology [address] [facility] Advanced Medicine 7th [place] [address] [place] [address] Stella Page Social History Tobacco [...] on file 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 Gender Identity Not on file Sexual Orientation Not on file 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[employer]) Not on file Not on file Not on file documented as of this encounter Plan of Treatment Not on file documented as of this encounter Visit Diagnoses Not on filedocumented in this encounter Care Teams Bottom Sander Relationship Specialty Start Date End Date Almita Smallwood MD [address] [place] [address] PCP - General 04/17/20 02/14/23 [place] [address] [address] [place], [place] [phone] PCP - General Internal Medicine 02/15/23 12/08/23 Angela Garza NP [address] [place] [address] PCP - General Cardiovascular Disease 12/09/23 Almita Smallwood MD [address] [place] [address] Internal Medicine 04/17/20 Jacek Laura MD [address] [facility] [address] [place] [address] Referring Physician Hematology 06/02/21 06/28/22 [place] [address] [address] [place], [place] [phone] Surgeon General Surgery 04/07/22 documented as of this encounter
--- OUTSIDE RECORDS SUMMARY | 2024-04-21 21:39 | XMS_ITS | Encounter Summary ---
Author Organization [facility] Healthcare Address [address] [place] [address] Care Team Providers Care Ip Litigation Associate Name Role Phone Almita Smallwood MD Primary Care Provider + Reason for Visit * Diagnostic Imaging (Routine) - Closed Specialty Diagnoses / Procedures Referred By Contac t Referred To Contact Procedures Breast Imaging Screening Outside Reference Linda Buckley MD PhD Phone: tel: fax: Referral ID Status Reason Start Date Expiration Date Visits Re quested Visits Authorized [id number] Closed 06/03/2021 07/03/2022 1 1 Encounter Details Date Type Department Care Team (Latest Contact Info) Description 02/21/2020 - 02/21/2020 11:59 PM BILINGUAL CALL CENTER REPRESENTATIVE Hospital Encounter [facility] [address] [place] [id number] Discharge Disposition: Discharge to home or self care Social History Tobacco Use Types Packs/Day Years Used Date Smoking Tobacco: Never Assessed Comments Unknown Sex and Gender Information Value Date Recorded Sex Assigned at Not on file Legal Sex Female 3:38 AM BILINGUAL CALL CENTER REPRESENTATIVE Gender Identity Not on file Sexual [...] SCREENING OUTSIDE REFERENCE Routine 02/21/2020 12:00 AM BILINGUAL CALL CENTER REPRESENTATIVE documented in this encounter Results * Breast Imaging Screening Outside Reference (02/21/2020 12:00 AM BILINGUAL CALL CENTER REPRESENTATIVE) Impressions [facility] - 06/03/2021 9:37 AM BILINGUAL CALL CENTER REPRESENTATIVE These images are for Reference purposes only and have not been reviewed by [facility]. ??There will be no report generated by a [facility] Radiologist. Narrative [facility] - 06/03/2021 9:37 AM BILINGUAL CALL CENTER REPRESENTATIVE EXAMINATION: ??Images For Reference Purposes Only Linda Buckley MD PhD IMG MAMMO PROCEDURES Final Result [facility] documented in this encounter Visit Diagnoses Not on filedocumented in this encounter Care Teams Ip Litigation Associate Relationship Specialty Start Date End Date Almita Smlalwood MD [address] [place] [address] PCP - General Internal Medicine 02/14/20 04/16/20 documented as of this encounter
--- OUTSIDE RECORDS SUMMARY | 2024-04-21 21:39 | XMS_ITS | Encounter Summary ---
Author Organization [facility] Healthcare Address [address] [place] [address] Care Team Providers Care Assembly Repairer Name Role Phone Unavailable Primary Care Provider Unavailabl e Reason for Visit * Diagnostic Imaging (Routine) - Closed Specialty Diagnoses / Procedures Referred By Tati campos Referred To Contact Procedures Breast Imaging Diagnostic Outside Reference Linda Buckley MD PhD Phone: tel: fax: Referral ID Status Reason Start Date Expiration Date Visits Re quested Visits Authorized [id number] Closed 07/02/2021 08/01/2022 1 1 Encounter Details Date Type Department Care Team (Late st Contact Info) Description 10/27/2016 Hospital Encounter [facility] [address] [place] [address] Social History Tobacco Use Types Packs/Day Years [...] on file Legal Sex Female 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 Narrative [facility] - 07/02/2021 3:00 PM CDT EXAMINATION: ??Images For Reference Purposes Only us Linda Buckley MD PhD IMG MAMMO PROCEDURES Final Result [facility] documented in this encounter Visit Diagnoses Not on filedocumented in this encounter
--- OUTSIDE RECORDS SUMMARY | 2024-04-21 21:39 | XMS_ITS | Encounter Summary ---
Author Organization [facility] Address [address] [place] [address] Care Team Providers Care Strategic Planning Director Name Role Phone Almita Smallwood MD Primary Care Provider + Almita Smallwood MD Unavailable [phone] Reason for Visit * Reason Onset Date Comments Test Results 07/18/2020 Encounter Details Date Type Department Care Team (Late st Contact Info) Description 07/18/2020 Telephone [facility] Gynecology at [facility] [address] [facility] [address] [place] [address] [place] [address] 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 [...] filedocumented in this encounter Care Teams Strategic Planning Director Relationship Specialty Start Date End Date Almita Smallwood MD [address] [place] [address] PCP - General 04/17/20 02/14/23 Almita Smallwood MD [address] [place] [address] Internal Medicine 04/17/20 documented as of this encounter
--- OUTSIDE RECORDS SUMMARY | 2024-04-21 21:39 | XMS_ITS | Encounter Summary ---
Author Organization [facility] Address [address] [facility] [address] [place] [address] Care Team Providers Care Salmon Gillnet Vessel Operator Name Role Phone Wolfgang Smallwood MD Primary Care Provider + Wolfgang Smallwood MD Unavailable [phone] Reason for Referral * Consultation (Routine) - Closed Specialty Diagnoses / Procedures Referred By Tati campos Referred To Contact Surgical Oncology Diagnoses 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 [address] [facility] [address] [place] [address] Phone: tel: fax: Linda Singh MD PhD [id number] [place] [address] Phone: tel: fax: Referral ID Status Reason Start Date Expiration Date V isits Requested Visits Authorized [id number] Closed Specialty Services Required 04/29/2021 05/29/2022 1 1 Question Answer Is this referral for [facility]? No Please select the performing region: [facility] (All Locations) [167] To provider: LINDA SINGH [[id number]] # of visits: 1 Comments 61 yo female s/ left breast lumpectomy for DCIS in 11/2016. On Tamoxifen. Needs a new Breast surgeon for follow up. ETCAR REPAIRER HELPER * Diagnostic Imaging (Routine) - Closed Specialty Diagnoses / Procedures Referred By Tati t Referred To Contact Diagnoses Screening mammogram, encounter for Procedures Screening [place]ammogram [place] [address] [address] Phone: tel: fax: [facility] Referral ID Status Reason Start Date Expiration Date Visits Re quested Visits Authorized [id number] Closed 04/29/2021 05/29/2022 1 1 ETCAR REPAIRER HELPER Reason for Visit * Reason Comments Well Women Visit [facility]we Encounter Details Date Type Department Care Team (Late st Contact Info) Description 04/29/2021 10:00 AM STREETCAR REPAIRER HELPER Office Visit 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[employer]) Not on file Not on file Not on file documented as of this encounter Last Filed Vital Signs Vital Sign Reading Time Taken Comments Blood Pressure 131/80 04/29/2021 10:10 AM STREETCAR REPAIRER HELPER Pulse 80 04/29/2021 10:10 AM STREETCAR REPAIRER HELPER Temperature - - Respiratory Rate - - Oxygen Saturation - - Inhaled Oxygen Concentration - - Weight 75.1 kg (165 lb 9.6 oz) 04/29/2021 10:10 AM STREETCAR REPAIRER HELPER Height 167.6 cm (5' 5.98 ) 04/29/2021 10:10 AM Melecio CARCAMO Body Mass Index 26.74 04/29/2021 10:10 AM STREETCAR REPAIRER HELPER documented in this encounter Patient Instructions * Patient Instructions* Wolfgang Obando MD - 04/29/2021 10:00 AM STREETCAR REPAIRER HELPER Images from the original note were not included. Your breast and pelvic exams today are normal. You can check your MyChart for the results of your Pap smear done today in 7-10 days. Please call [phone] to schedule your mammogram at [facility]. Please call [phone] to schedule appointment to see Dr. Linda Zurita (Breast surgeon). Please follow-up with the railroad cook, Dr. Litzy Rogel, regarding your questions about your hernia. We will call you when the hospital is allowing elective surgeries again to reschedule the hysteroscopy and D&C for evaluation your thickened uterine lining on pelvic ultrasound. Patient Education Lower Back Exercises ROLL PANNER: Lower back exercises help heal and strengthen [...] Repeat 10 times on each leg. ?? [id number]: Lie on your back with your knees [...] change sides. Do 5 sets. ?? 2017 [email or web address] Information is for End User's use only and may not be sold, redistributed or otherwise used for commercial purposes. All illustrations and images included in CareNotes?? are the copyrighted property of [employer]. or [employer]. The above information is an classroom instructional aide only. It is not intended as medical advice for individual conditions or treatments. Talk to your doctor, nurse or pharmacist before following any medical regimen to see if it is safe and effective for you. ETCAR REPAIRER HELPER ETCAR REPAIRER HELPER ETCAR REPAIRER HELPER ETCAR REPAIRER HELPER documented in this encounter Progress Notes * [...] after meals. I suggested she call the railroad cook for instructions. Has had a recurrence of her right low back pain with sciatica due to weight gain (6 lbs since 03/2020). She is doing Weight Watchers again. Would like to establish with a new PCP. She works with our district associate judge, Lorin Padilla, at the [facility], so will get her recommendations. I included [...] she missed her last appointment with her [facility] and would like to change to [facility]. Briefly discussed having her switch from tamoxifen [...] 11/2016 For Stage 0 breast CA at [facility] in [place], [place]. No chemorx or XRT, only Tamoxifen. ??? TUBAL LIGATION Social History Socioeconomic History ??? Marital status: Spouse name: Not on file ??? Number of children: 2 ??? Years of education: Not on file ??? Highest education level: Not on file Occupational History ??? 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 Tobacco Use [...] index is 26.74 kg/m??. Wolfgang Obando MD ETCAR REPAIRER HELPER documented in this encounter Plan of [...] Mammogram Bilateral W Chris (06/25/2021 8:24 AM STREETCAR REPAIRER HELPER) Anatomical Region Laterality Modality Breast Bilateral Mammography [...] has been no suspicious interval change. Wolfgang Obadno MD IMG MAMMO [place] OCEDURES Final Result documented in this encounter Visit Diagnoses Diagnosis Well woman exam with routine gynecological exam- Primary Routine gynecological examination Screening mammogram, encounter for Screening for malignant neoplasm of cervix Screening for malignant neoplasm of the cervix 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 breast Sciatica of right side Screening mammogram, encounter for documented in this encounter Care Teams Salmon Gillnet Vessel Operator Relationship Specialty Start Date End Date Wolfgang Smallwood MD [address] [place] [address] PCP - General 04/17/20 02/14/23 Wolfgang Smallwood MD [address] [place] [address] Internal Medicine 04/17/20 documented as of this encounter
--- OUTSIDE RECORDS SUMMARY | 2024-04-21 21:39 | XMS_ITS | Encounter Summary ---
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
--- OUTSIDE RECORDS SUMMARY | 2024-04-21 21:39 | XMS_ITS | Encounter Summary ---
Author Organization [facility] Healthcare Address [address] [place] [address] Care Team Providers Care Archaeologist Name Role Phone Almita Smallwood MD Primary Care Provider + Almita Smallwood MD Unavailable [phone] Encounter Details Date Type Department Care Team (Late st Contact Info) Description 05/01/2020 8:25 AM ASSEMBLY WORKER Hospital Encounter [facility] LitzyMinerva MD [address] [place] [address] Social History Tobacco Use Types Packs/Day Years Used Date Smoking Tobacco: Never Assessed PHQ-2 Answer Date Recorded PHQ-2 Total Score (If total score is 3 or more points, staff should administer the PHQ-9) 0 04/16/2020 Comments No Sex and Gender Information Value Date Recorded Sex Assigned at Not on file Legal Sex Female 3:38 AM ASSEMBLY WORKER Gender Identity Not on file Sexual [...] Diagnosis Comments US RUQ 05/01/2020 12:03 PM ASSEMBLY WORKER documented in this encounter Results * US RUQ (05/01/2020 12:03 PM ASSEMBLY WORKER) Anatomical Region Laterality Modality Abdomen N/A Ultrasound 05/01/2020 12:4 4 PM ASSEMBLY WORKER Narrative 05/01/2020 12:46 PM ASSEMBLY WORKER Patient Name: ANITHA HERMOSILLO ?Ordering Dr: Minerva Mcghee MD ?? D.O.B: 1960 ? Exam Date: 05/01/20 ?? 1203 ?? Age: 60 ?Sex: Female ? MR#: [id number] ?? Loc: ? RADIOLOGY REPORT ?? Order #[id number] ?? Ultrasound ? US Abd/Right Upper Quadrant [...] T: ??05/01/2020 12:46 PM ? Report ID: [id number] ?? Reading Location: ??[id number] ? REPORT ELECTRONICALLY SIGNED IN OTHER VENDOR SYSTEM ?? Resulting Agency Comment O Procedure Note Jerad Hugo MD - 05/01/2020 Patient Name: Sander HERMOSILLO Dr: Minerva Mcghee MD D.O.B: 1960 Exam Date: 05/01/20 1203 Age: 60 Sex: Female MR#: [id number] Loc: RADIOLOGY REPORT Order #[id number] Ultrasound US Abd/Right Upper Quadrant Signed EXAM [...] Jerad Hugo M.D. AK: JOHNNIE Report ID: [id number] Reading Location: [id number] REPORT ELECTRONICALLY SIGNED IN OTHER VENDOR SYSTEM us Minerva Mcghee MD IMG US PROCEDURES Final R esult documented in this encounter Visit Diagnoses Not on filedocumented in this encounter Care Teams Archaeologist Relationship Specialty Start Date End Date Almita Smallwood MD [address] [place] [address] PCP - General 04/17/20 02/14/23 Almita Smallwood MD [address] [place] [address] Internal Medicine 04/17/20 documented as of this encounter
--- OUTSIDE RECORDS SUMMARY | 2024-04-21 21:39 | XMS_ITS | Encounter Summary ---
Author Organization [facility] Address [address] [place] [address] Care Team Providers Care Vocational Nursing Instructor Name Role Phone Almita Smallwood MD Primary Care Provider + Almita Smallwood MD Unavailable [phone] Jacek Laura MD Unavailable [phone] Reason for Visit * Reason Onset Date Comments Documentation 06/04/2021 Encounter Details Date Type Department Care Team (Late st Contact Info) Description 06/04/2021 Telephone [facility] Gynecology at [facility] [address] [place] [address] [place] [address] [facility] [address] [place] [address] Documentation Social History Tobacco Use [...] on file 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 Pt voiced understanding and will complete this on Tuesday or Tuesday. Order placed ERTY CLERK documented in this encounter Plan of Treatment Not on file documented as of this encounter Visit Diagnoses Not on filedocumented in this encounter Care Teams Vocational Nursing Instructor Relationship Specialty Start Date End Date Almita Smallwood MD [address] [place] [address] PCP - General 04/17/20 02/14/23 Almita Smallwood MD [address] [place] [address] Internal Medicine 04/17/20 Jacek Laura MD [address] [phone] Referring Physician Hematology 06/02/21 06/28/22 documented as of this encounter
--- OUTSIDE RECORDS SUMMARY | 2024-04-21 21:39 | XMS_ITS | Encounter Summary ---
Author Organization [facility] Address [address] [place] [address] Care Team Providers Care Interactive Digital Media Specialist Name Role Phone Almita Smallwood MD Primary Care Provider + Almita Smallwood MD Unavailable [phone] Encounter Details Date Type Department Care Team (Late st Contact Info) Description 01/30/2021 4:15 PM CDT Immunization [address] [address] Encounter for vaccination (Primary Dx) Social History [...] on file Legal Sex Female 3:38 AM VESSEL SCRAPPER HELPER Gender Identity Not on file Sexual Orientation Not on file 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 N ot on file Not on file documented as of this encounter Plan of Treatment Not on file documented as of this encounter Visit Diagnoses Diagnosis Encounter for vaccination- Primary documented in this encounter Orders Immunization/Injection Count Last Ordered Date First Ordered Date PFIZER SARS-COV-2 VACCINE 1 01/30/2021 documented in this encounter Care Teams Interactive Digital Media Specialist Relationship Specialty Start Date End Date Almita Smallwood MD [address] [place] [address] PCP - General 04/17/20 02/14/23 Almita Smallwood MD [address] [place] [address] Internal Medicine 04/17/20 documented as of this encounter
--- OUTSIDE RECORDS SUMMARY | 2024-04-21 21:39 | XMS_ITS | Encounter Summary ---
Author Organization [facility] Address [address] [facility] [facility] [address] [place] [address] Care Team Providers Care Business Operations Specialist Name Role Phone Almita Smallwood MD Primary Care Provider + Almita Smallwood MD Unavailable [phone] Reason for Referral * Diagnostic Imaging (Routine) - Closed Specialty Diagnoses / Procedures Referred By Tati campos Referred To Contact Diagnoses Thickened endometrium Procedures US Pelvis [place] [address] [address] Phone: tel: fax: [facility] Referral ID Status Reason Start Date Expiration Date Visits Re quested Visits Authorized [id number] Closed 07/17/2020 08/16/2021 1 1 Encounter Details Date Type Department Care Team (Late st Contact Info) Description 07/17/2020 Orders Only [facility] Gynecology at [facility] [address] [place] [address] [address] [place] [address] [place] [address] [address] Thickened endometrium (Primary Dx) Social [...] on file Legal Sex Female 3:38 AM CONSERVATION SCIENCE TEACHER Gender Identity Not on file Sexual Orientation Not on file 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 Not on file N ot on file Not on file documented as of this encounter Progress Notes * Mee Winkler MA - 07/17/2020 6:11 PM CDT Pt reminded via [employer]. documented in this encounter Plan of Treatment Not on file documented as of this encounter Results * US Pelvis W Endovaginal (03/19/2021 9:13 AM CONSERVATION SCIENCE TEACHER) Anatomical Region Laterality Modality Pelvis N/A Ultrasound 03/20/2021 8:20 AM CONSERVATION SCIENCE TEACHER Impressions 03/20/2021 8:20 AM CONSERVATION SCIENCE TEACHER Heterogeneous nonenlarged uterus without focal lesion seen. Endometrial thickening of 11 mm. ??Differential includes hyperplasia, polyp and carcinoma. Electronically signed by: Antoinette Jimenes M.D. Narrative 03/20/2021 8:20 AM CONSERVATION SCIENCE TEACHER EXAM: PELVIC ULTRASOUND DATE: 03/19/2021 8:30 AM [...] by: Antoinette Jimenes M.D. Almita Obando MD [facility] Final Result documented in this encounter Visit Diagnoses Diagnosis Thickened endometrium- Primary Nonspecific (abnormal) findings on radiological and other examination of genitourinary organs Thickened endometrium Nonspecific (abnormal) findings on radiological and other examination of genitourinary organs documented in this encounter Care Teams Business Operations Specialist Relationship Specialty Start Date End Date Almita Smallwood MD [address] [place] [address] PCP - General 04/17/20 02/14/23 Almita Smallwood MD [address] [place] [address] Internal Medicine 04/17/20 documented as of this encounter
--- OUTSIDE RECORDS SUMMARY | 2024-04-21 21:39 | XMS_ITS | Encounter Summary ---
Author Organization [facility] Address [address] [facility] [address] [place] [address] Care Team Providers Care Hazardous Substances Scientist Name Role Phone Almita Smallwood MD Primary Care Provider + Almita Smallwood MD Unavailable [phone] Reason for Visit * Reason Onset Date Comments Documentation 05/27/2021 Encounter Details Date Type Department Care Team (Late st Contact Info) Description 05/27/2021 Telephone [facility] Gynecology at [facility] [address] [address] [place] [address] [address] Documentation Social History Tobacco Use [...] on file Legal Sex Female 3:38 AM BARBER SHOP MANAGER Gender Identity Not on file Sexual Orientation Not on file 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 Surgery: 06/11/21 @ 11am Post op 06/26/21 @ 11:30am Order placed ER SHOP MANAGER documented in this encounter Plan of Treatment Not on file documented as of this encounter Visit Diagnoses Diagnosis Preop testing- Primary Unspecified pre-operative examination documented in this encounter Care Teams Hazardous Substances Scientist Relationship Specialty Start Date End Date Almita Smallwood MD [address] [place] [address] PCP - General 04/17/20 02/14/23 Almita Smallwood MD [address] [place] [address] Internal Medicine 04/17/20 documented as of this encounter
--- OUTSIDE RECORDS SUMMARY | 2024-04-21 21:39 | XMS_ITS | Encounter Summary ---
Author Organization [facility] Healthcare Address [address] [place] [address] Care Team Providers Care Kosher Sealer Name Role Phone Unavailable Primary Care Provider Unavailabl e Reason for Visit * Diagnostic Imaging (Routine) - Closed Specialty Diagnoses / Procedures Referred By Tati campos Referred To Contact Procedures Breast Imaging Diagnostic Outside Reference Linda Buckley MD PhD Phone: tel: fax: Referral ID Status Reason Start Date Expiration Date Visits Re quested Visits Authorized [id number] Closed 07/02/2021 08/01/2022 1 1 Encounter Details Date Type Department Care Team (Late st Contact Info) Description 11/22/2016 Hospital Encounter [facility] [address] [place] [address] Social History Tobacco Use Types Packs/Day [...] on file Legal Sex Female 3:38 AM DENTAL OFFICE ASSISTANT Gender Identity Not on file Sexual Orientation Not on file 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 ??There will be no report generated by a [facility] Radiologist. Narrative RAD_MAMMO_[facility] - 07/02/2021 3:01 PM CDT EXAMINATION: ??Images For Reference Purposes Only us Linda Buckley MD PhD IMG MAMMO PROCEDURES Final Result [facility]_MAMMO[facility] documented in this encounter Visit Diagnoses Not on filedocumented in this encounter
--- OUTSIDE RECORDS SUMMARY | 2024-04-21 21:40 | XMS_ITS | Encounter Summary ---
Author Organization [facility] Healthcare Address [address] [place] [address] Care Team Providers Care Product Support Manager Name Role Phone Unavailable Primary Care Provider Unavailabl e Reason for Visit * Diagnostic Imaging (Routine) - Closed Specialty Diagnoses / Procedures Referred By Tati campos Referred To Contact Procedures Breast Imaging Screening Outside Reference Linda Buckley MD PhD Phone: tel: fax: Referral ID Status Reason Start Date Expiration Date Visits Re quested Visits Authorized [id number] Closed 07/02/2021 08/01/2022 1 1 Encounter Details Date Type Department Care Team (Late st Contact Info) Description 08/28/2015 Hospital Encounter [facility]iology [facility] [address] [place] [address] Social History Tobacco Use Types Packs/Day Years [...] on file Legal Sex Female 3:38 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 ??There will be no report generated by a [facility] Radiologist. Narrative RAD_MAMMO_[facility] - 07/02/2021 3:02 PM CDT EXAMINATION: ??Images For Reference Purposes Only us Linda Buckley MD PhD IMG MAMMO PROCEDURES Final Result [facility]MAMMO[facility] documented in this encounter Visit Diagnoses Not on filedocumented in this encounter
--- OUTSIDE RECORDS SUMMARY | 2024-04-21 21:40 | XMS_ITS | Encounter Summary ---
Author Organization [facility] Healthcare Address [address] [place] [address] Care Team Providers Care Data Warehouse Manager Name Role Phone Unavailable Primary Care Provider Unavailabl e Reason for Visit * Diagnostic Imaging (Routine) - Closed Specialty Diagnoses / Procedures Referred By Tati t Referred To Contact Procedures Breast Imaging Diagnostic Outside Reference Linda Buckley MD PhD Phone: tel: fax: Referral ID Status Reason Start Date Expiration Date Visits Re quested Visits Authorized [id number] Closed 07/02/2021 08/01/2022 1 1 Encounter Details Date Type Department Care Team (Late st Contact Info) Description 08/28/2015 12:05 AM CDT Hospital Encounter [facility]iology [facility] [address] [place] [address] [phone] Social History Tobacco Use Types Packs/Day Years [...] on file 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 ??There will be no report generated by a [facility] Radiologist. Narrative RAD_MAMMO_[facility] - 07/02/2021 3:10 PM CDT EXAMINATION: ??Images For Reference Purposes Only us Linda Buckley MD PhD IMG MAMMO PROCEDURES Final Result [facility]MO[facility] documented in this encounter Visit Diagnoses Not on filedocumented in this encounter
--- OUTSIDE RECORDS SUMMARY | 2024-04-21 21:40 | XMS_ITS | Encounter Summary ---
Author Organization [facility] Healthcare Address [address] [place] [address] Care Team Providers Care Edi Architect Name Role Phone Unavailable Primary Care Provider Unavailabl e Reason for Visit * Diagnostic Imaging (Routine) - Closed Specialty Diagnoses / Procedures Referred By Tati t Referred To Contact Procedures Breast Imaging Screening Outside Reference Linda Buckley MD PhD Phone: tel: fax: Referral ID Status Reason Start Date Expiration Date Visits Re quested Visits Authorized [id number] Closed 07/02/2021 08/01/2022 1 1 Encounter Details Date Type Department Care Team (Late st Contact Info) Description 09/21/2016 Hospital Encounter [facility] Radiology [facility] [address] [place] [address] Social History Tobacco Use Types Packs/Day [...] on file 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 ??There will be no report generated by a [facility] Radiologist. Narrative RAD_MAMMO_[facility] - 07/02/2021 3:02 PM CDT EXAMINATION: ??Images For Reference Purposes Only us Linda Buckley MD PhD IMG MAMMO PROCEDURES Final Result [facility]MAMMO[facility] documented in this encounter Visit Diagnoses Not on filedocumented in this encounter
--- OUTSIDE RECORDS SUMMARY | 2024-04-21 21:40 | XMS_ITS | Encounter Summary ---
Author Organization [facility] Healthcare Address [address] [place] [address] Care Team Providers Care Guard Dance Hall Name Role Phone Unavailable Primary Care Provider Unavailabl e Reason for Visit * Diagnostic Imaging (Routine) - Closed Specialty Diagnoses / Procedures Referred By Tati campos Referred To Contact Procedures Breast Imaging Diagnostic Outside Reference Linda Buckley MD PhD Phone: tel: fax: Referral ID Status Reason Start Date Expiration Date Visits Re quested Visits Authorized [id number] Closed 07/02/2021 08/01/2022 1 1 Encounter Details Date Type Department Care Team (Late st Contact Info) Description 10/05/2016 Hospital Encounter [facility]iology [facility] [address] [place] [address] Social History Tobacco Use Types Packs/Day Years [...] on file 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 ??There will be no report generated by a [facility] Radiologist. Narrative RAD_MAMMO_[facility] - 07/02/2021 3:02 PM CDT EXAMINATION: ??Images For Reference Purposes Only us Linda Buckley MD PhD IMG MAMMO PROCEDURES Final Result [facility]MO[facility] documented in this encounter Visit Diagnoses Not on filedocumented in this encounter
== END 2024-04-14 14:18 | disposition home or self-care (01) ==
PROVIDERS: Emergency Provider Emergency Medicine; PCP Clinical Nurse Specialist
DX: M54.50 Low back pain, unspecified (principal); R82.998 Other abnormal findings in urine; K59.09 Other constipation; Z85.3 Personal history of malignant neoplasm of breast; Z87.891 Personal history of nicotine dependence; Z86.2 Personal history of diseases of the blood and blood-forming organs and certain disorders involving the immune mechanism; Z79.899 Other long term (current) drug therapy
CPT/HCPCS: 81001; 87086; 99283; A9270

== ENCOUNTER 2024-09-17 10:47 | Outpatient (CLI) | payer BC, SELFPAY ==
--- OUTSIDE RECORDS SUMMARY | 2024-09-17 11:20 | XMS_ITS | Encounter Summary ---
Author Organization [facility] Healthcare Address [address] [place] [address] Care Team Providers Care Slag Skimmer Name Role Phone Unavailable Primary Care Provider Unavailabl e Reason for Visit * Diagnostic Imaging (Routine) - Closed Specialty Diagnoses / Procedures Referred By Tati campos Referred To Contact Procedures Breast Imaging Diagnostic Outside Reference Linda Buckley MD PhD Phone: tel: fax: Referral ID Status Reason Start Date Expiration Date Visits Re quested Visits Authorized [id number] Closed 07/02/2021 08/01/2022 1 1 Encounter Details Date Type Department Care Team (Late st Contact Info) Description 06/21/2018 Hospital Encounter [facility] Radiology [facility] [address] [place] [address] Social History Tobacco Use Types Packs/Day Years [...] on file 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 Gender Identity Not on file Sexual Orientation Not on file 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[employer]) Not on file Not on file Not on file documented as of this encounter Functional Status documented as of this encounter Plan of Treatment Not on file documented as of this encounter Procedures Procedure Name Priority Date/Time Associated Diagnosis Comments BREAST IMAGING MG DIAGNOSTIC OUTSIDE REFERENCE Routine 06/21/2018 12:00 AM MONOTYPE MACHINIST documented in this encounter Results * Breast Imaging Diagnostic Outside Reference (06/21/2018 12:00 AM MONOTYPE MACHINIST) Impressions RAD_MAMMO_[facility] - 07/02/2021 3:03 PM CDT These images are for Reference purposes only and have not been reviewed by [facility] Radiology. There will be no report generated by a [facility] Radiologist. Narrative RAD_MAMMO_[facility] - 07/02/2021 3:03 PM CDT EXAMINATION: Images For Reference Purposes Only us Linda Buckley MD PhD IMG MAMMO PROCEDURES Final Result [facility]_MAMMO[facility] documented in this encounter Visit Diagnoses Not on filedocumented in this encounter
--- OUTSIDE RECORDS SUMMARY | 2024-09-17 11:20 | XMS_ITS | Encounter Summary ---
Author Organization [facility] Healthcare Address [address] [place] [address] Care Team Providers Care Glove Tagger Name Role Phone Unavailable Primary Care Provider Unavailabl e Reason for Visit * Diagnostic Imaging (Routine) - Closed Specialty Diagnoses / Procedures Referred By Tati campos Referred To Contact Procedures Breast Imaging Screening Outside Reference Linda Buckley MD PhD Phone: tel: fax: Referral ID Status Reason Start Date Expiration Date Visits Re quested Visits Authorized [id number] Closed 07/02/2021 08/01/2022 1 1 Encounter Details Date Type Department Care Team (Late st Contact Info) Description 10/21/2017 Hospital Encounter [facility]iology [facility] [address] [place] [address] Social History Tobacco Use Types Packs/Day Years [...] on file 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 There will be no report generated by a [facility] Radiologist. Narrative RAD_MAMMO_[facility] - 07/02/2021 3:00 PM CDT EXAMINATION: Images For Reference Purposes Only us Linda Buckley MD PhD IMG MAMMO PROCEDURES Final Result [facility]MO[facility] documented in this encounter Visit Diagnoses Not on filedocumented in this encounter
--- OUTSIDE RECORDS SUMMARY | 2024-09-17 11:20 | XMS_ITS | Encounter Summary ---
Author Organization [facility] Healthcare Address [address] [place] [address] Care Team Providers Care Cda Teacher Name Role Phone Almita Smallwood MD Primary Care Provider + Reason for Visit * Diagnostic Imaging (Routine) - Closed Specialty Diagnoses / Procedures Referred By Contac t Referred To Contact Procedures Breast Imaging Screening Outside Reference Linda Buckley MD PhD [id number] [place] [address] Phone: tel: fax: Referral ID Status Reason Start Date Expiration Date Visits Re quested Visits Authorized [id number] Closed 08/03/2021 09/02/2022 1 1 Encounter Details Date Type Department Care Team (Late st Contact Info) Description 02/21/2020 Hospital Encounter 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 Not on file Not on file documented as of this encounter Functional Status documented as of this encounter Plan of Treatment Not on file documented as of this encounter Procedures Procedure Name Priority Date/Time Associated Diagnosis Comments BREAST IMAGING MG SCREENING OUTSIDE REFERENCE Routine 02/21/2020 12:00 AM CORN SHELLER documented in this encounter Results * Breast Imaging Screening Outside Reference (02/21/2020 12:00 AM CORN SHELLER) Impressions RAD_MAMMO_[facility] - 08/03/2021 10:35 AM CDT These images are for Reference purposes only and have not been reviewed by [facility] Radiology. There will be no report generated by a [facility] Radiologist. Narrative RAD_MAMMO_[facility] - 08/03/2021 10:35 AM CDT EXAMINATION: Images For Reference Purposes Only Linda Buckley MD PhD IMG MAMMO PROCEDURES Final Result [facility]MAMMO[facility] documented in this encounter Visit Diagnoses Not on filedocumented in this encounter Care Teams Cda Teacher Relationship Specialty Start Date End Date Almita Smallwood MD [address] [place] [id number] PCP - General Internal Medicine 02/14/20 04/16/20 documented as of this encounter
--- OUTSIDE RECORDS SUMMARY | 2024-09-17 11:20 | XMS_ITS | Encounter Summary ---
Author Organization [facility] Healthcare Address [address] [place] [address] Care Team Providers Care Regional Sales Manager Name Role Phone Unavailable Primary Care Provider Unavailabl e Reason for Visit * Diagnostic Imaging (Routine) - Closed Specialty Diagnoses / Procedures Referred By Tati t Referred To Contact Procedures Breast Imaging Diagnostic Outside Reference Linda Buckley MD PhD Phone: tel: fax: Referral ID Status Reason Start Date Expiration Date Visits Re quested Visits Authorized [id number] Closed 07/02/2021 08/01/2022 1 1 Encounter Details Date Type Department Care Team (Late st Contact Info) Description 11/22/2016 12:05 AM CDT Hospital Encounter [facility]iology [facility] [address] [place] [phone] Social History Tobacco Use Types Packs/Day Years [...] on file 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 There will be no report generated by a [facility] Radiologist. Narrative RAD_MAMMO_[facility] - 07/02/2021 3:09 PM CDT EXAMINATION: Images For Reference Purposes Only us Linda Buckley MD PhD IMG MAMMO PROCEDURES Final Result RAD_MAMMO[facility] documented in this encounter Visit Diagnoses Not on filedocumented in this encounter
--- OUTSIDE RECORDS SUMMARY | 2024-09-17 11:20 | XMS_ITS | Clinical Summary ---
Author Organization [place] [address] [facility] Address [address] [place] [address] Care Team Providers Care Rewind Operator Name Role Phone Almita Smallwood MD Unavailable [phone] Yuri Rocha MD Unavailable [phone] Angela Garza NP Primary Care Provider [phone] Allergies No known active allergies Medications collagen, hydrolysate, bovine, (COLLAGEN, HYDR, BOVINE,, BULK, MISC) by [facility]Non-Drug; Combo Route) route. Active levocetirizine (XYZAL) 5 [...] (04/06/2022): Added automatically from request for surgery [id number] Breast neoplasm, Tis (LCIS), left 08/06/2021 Breast [...] Diagnosed Date Resolved Date Smoking 08/06/2021 Immunizations Immunization Administration Dates Next Due Pfizer SARS-CoV-2 Monovalent Vaccination (12+ Yrs) PURPLE 01/30/2021,08/14/2020,07/23/2020 Surgical History Surgery Date Site/Laterality Comments TUBAL LIGATION BREAST BIOPSY 10/17/2018 Right benign axillary node BREAST BIOPSY 10/27/2016 Left DCIS BREAST BIOPSY ? Right benign needle bx MASTECTOMY, PARTIAL 11/22/2016 Left For Stage 0 breast CA at [facility] in [place], [place]. No chemorx or XRT, only Tamoxifen. 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[employer]) Not on file Not on file Not on file Obstetrics History Para Term AB IAB SAB Ectopic Multiple Livin g Live Births 3 2 2 1 1 0 0 2 2 Date Outcome GA Total Labor Labor//3rd Weight Sex Type Anes PTL Ankita A1 A5 Name Clin IAB 1982 Term M Vag-S pont Living 1983 Term F Vag-S pont Living Last Filed Vital Signs Vital Sign Reading Time Taken Comments Blood Pressure 141/79 01/11/2024 10:38 AM CDT Pulse 75 01/11/2024 10:38 AM CDT Temperature 37 C (98.6 F) 01/11/2024 10:38 AM CDT Respiratory Rate 18 01/11/2024 10:3 8 AM CDT Oxygen Saturation 98% 01/11/2024 10: 38 AM CDT Inhaled Oxygen Concentration - - Weight 69.7 kg (153 lb 9.6 oz) 01/11/20 10:38 AM CDT with shoes Height 165.1 cm (5' 5) 04/07/2022 8:39 AM HUNTER GUIDE Body Mass Index 25.56 04/07/2022 8:39 AM HUNTER GUIDE Plan of Treatment Health Maintenance Due Date Last Done Comments Colon Cancer Screening-Colonoscopy 1960 Hepatitis C Screening 1960 Hepatitis B Screening 02/12/1980 Pneumococcal vaccine <65 (1 of 2 - PCV) 1981 Cervical Cancer Screening 04/16/2021 04/16/2020 Depression Screening 04/16/2021 04/16/2020 Regular Well Visit/Exam 18-64 04/29/2022 04/29/2021, 04/16/2020 Covid-19 Vaccine ( - 2023-2 5 season) 2023 01/30/2021, 08/14/2020, 07/23/2020 Breast Cancer Screening-Mammogram 12/08/2024 12/09/2023, 06/29/2022, 06/25/2021, Additional history exists Influenza Vaccine (Season Ended) 2024 02/03/2022, 04/01/2021, 01/17/2020, Additional history exists DTaP/Tdap/Td Vaccine (2 - Td or Tdap) 03/14/2028 03/14/2018 Zoster Vaccine Completed 01/07/2022, 10/23/2021 Procedures Procedure Name Priority Date/Time Associated Diagnosis Comments SCREENING MAMMOGRAM BILATERAL W CHRIS Schedule Routine, Read Routine (OP Routine) 12/09/2023 7:44 AM CDT Encounter for screening mammogram for breast cancer PAP WITH REFLEX TO HIGH RISK HPV Routine 04/16/2020 9:07 AM HUNTER GUIDE from Last 3 Months or Most Recently Relevant to Health Maintenance Results * Screening Mammogram Bilateral W Chris (12/09/2023 7:44 AM CDT) Anatomical Region Laterality Modality Breast Bilateral Mammography Impressions 12/09/2023 8:11 AM CDT BI-RADS ATLAS category (overall): 2 - Benign There [...] in the CC and MLO projections. CLINICAL: Encounter for screening mammogram for breast cancer. Medical history includes breast cancer and smoking. History of breast cancer in Father's Sister. COMPARISONS: [...] Unchanged biopsy marker clips in both breasts. There is no new suspicious finding in either breast on mammogram. Snow Calabrese MD IMG MAMMO PROCEDURES Final Result * Pap with reflex to High Risk HPV (04/16/2020 9:07 AM HUNTER GUIDE) 04/16/2020 9:07 AM HUNTER GUIDE 04/16/2020 9:07 AM HUNTER GUIDE [facility] PATHOLOGY LAB - 04/21/2020 10:13 AM HUNTER GUIDE [facility] Department of Pathology [address] [place] [id number] Final Report with Addendum Patient Name: LISA HERMOSILLO Address: [facility] [address] [place] [address] Gender: F : 1960 (Age: 60) Service: Laboratory Location: Lab [facility] #: [id number] Patient Type: Ref Lab Taken: 04/16/2020 Received: 04/16/2020 Accessioned:: 04/17/2020 Reported: 04/21/2020 Physician(s): Almita Obando Diagnosis: Source of Specimen: Imaged Thinprep Pap Test plus HPV - Community Support Worker Cytologic Material Specimen Adequacy: - Specimen satisfactory for interpretation; endocervical/transformation zone component absent or insufficient General Category: - Negative for intraepithelial lesion or malignancy LUKE Baron(ASCP) Report Electronically Reviewed and Signed Out By LUKE Baron(ASCP) 04/21/2020 10:13:39 Addenda: HPV Test Interpretation NEGATIVE for types 16, 18, 31, 33, 35, 39, 45, 51, 52, 56, 58, 59, 66 and 68. Test performed utilizing Gen-Probe Aptima assay. LUKE Leiva(ASCP) Report Electronically Reviewed and Signed Out By LUKE Leiav(ASCP) 04/17/2020 12:07:25 Specimen(s) Received: A: Imaged Thinprep Pap Test plus HPV - Community Support Worker Cytologic Material Clinical History: Last Menstrual Period: 2014 Menstrual History: Post-menopausal The Pap test is a screening test used to aid in the detection of cervical cancer and its precursors. It should not be the sole means by which malignant and premalignant lesions are diagnosed. Both false negative and false positive results may occur. It also has poor sensitivity for the detection of endometrial lesions and should not be used to evaluate suspected endometrial abnormalities. For these reasons it is most important to obtain Pap tests at regular intervals. The performance characteristics of some immunohistochemical stains, fluorescence in-situ hybridization tests and immunophenotyping by flow cytometry cited in this report (if any) were determined by the Surgical Pathology Department at [facility] as part of an ongoing quality review specialist program and in compliance with federally mandated regulations drawn from the Clinical Laboratory Improvement Act of 1988 (CLIA '88). Some of these tests rely on the use of analyte specific reagents and are subject to specific labeling requirements by the US Food and Drug Administration. Such diagnostic tests may only be performed in a facility that is certified by the Department of Health and Human Services as a high complexity laboratory under CLIA '88. The FDA has determined that such clearance or approval is not necessary. This test is used for clinical purposes. It should not be regarded as investigational or for research. Nevertheless, federal rules concerning the medical use of analyte specific reagents require that the following disclaimer be attached to the report: This test was developed and its performance characteristics determined by the Surgical Pathology Department [facility]. It has not been cleared or approved by the U. S. Food and Drug Administration. Almita Obando MD LAB CYTOLOGY ORDERABLES Final Result [facility] PATHOLOGY LAB [address] [address] from Last 3 Months or Most Recently Relevant to Health Maintenance Insurance [facility] CHOICE PLUS ANTHEM ACCESS CHOICE ANTHEM ACCESS CHOICE Care Teams Rewind Operator Relationship Specialty Start Date End Date Angela Garza NP [address] [place] [address] PCP - General Cardiovascular Disease 12/09/23 Almita Smallwood MD [address] [place] [address] Internal Medicine 04/17/20 [place] [address] [facility] [address] [address] Surgeon General Surgery 04/07/22
--- OUTSIDE RECORDS SUMMARY | 2024-09-17 11:20 | XMS_ITS | Referral Summary ---
Author Organization [facility] [address] Address [address] [place] [address] Care Team Providers Care Pool Installer Name Role Phone Almita Smallwood MD Unavailable Yuri Rocha MD Unavailable [phone] Angela Garza NP Primary Care Provider + [phone] Allergies No known active allergies Medications collagen, hydrolysate, bovine, (COLLAGEN, HYDR, BOVINE,, BULK, MISC) by [facility].(Non-Drug; Combo Route) route. 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[employer]) Not on file Not on file Not [...] 165.1 cm (5' 5) 04/07/2022 8:39 AM CAN RECONDITIONER Body Mass Index 25.56 04/07/2022 8:39 AM CAN RECONDITIONER Plan of Treatment Not on file Procedures Procedure Name Priority Date/Time Associated Diagnosis Comments SCREENING MAMMOGRAM BILATERAL W CHRIS Schedule Routine, Read Routine (OP Routine) 12/09/2023 7:44 AM CDT Encounter for screening mammogram for breast cancer PAP WITH REFLEX TO HIGH RISK HPV Routine 04/16/2020 9:07 AM CAN RECONDITIONER from Last 3 Months or Most Recently [...] age 42, based on guidelines of the [employer] (ACR Practice Parameter for the Performance of Screening and Diagnostic Mammography) and [employer]. For women [...] to High Risk HPV (04/16/2020 9:07 AM CAN RECONDITIONER) 04/16/2020 9:07 AM CAN RECONDITIONER 04/16/2020 9:07 AM CAN RECONDITIONER Narrative [facility] - 04/21/2020 10:13 AM CAN RECONDITIONER [facility] Department of Pathology [address] [place] [address] Final Report with Addendum Patient Name: ANITHA HERMOSILLO Address: [address] [place] [address],[place] [address] Gender: F : 1960 (Age: 60) Service: Laboratory Location: Lab [facility] #: [id number] Patient Type: Ref Lab Taken: 04/16/2020 Received: 04/16/2020 Accessioned:: 04/17/2020 Reported: 04/21/2020 Physician(s): Almita Obando Diagnosis: Source of Specimen: Imaged Thinprep Pap Test plus HPV - Vending Machine Assembler Cytologic Material Specimen Adequacy: - Specimen satisfactory [...] Electronically Reviewed and Signed Out By LUKE Leiva(ASCP) 04/17/2020 12:07:25 Specimen(s) Received: A: Imaged Thinprep Pap Test plus HPV - Vending Machine Assembler Cytologic Material Clinical History: Last Menstrual [...] determined by the Surgical Pathology Department at [facility] as part of an ongoing customer quality specialist program and in compliance with [...] characteristics determined by the Surgical Pathology Department [facility]. It has not been cleared or approved by the U. S. Food and Drug Administration. Almita Obando MD LAB CYTOLOGY ORDERABLES Final Result [facility] [address] [place] [address] from Last 3 Months or Most Recently Relevant to Health Maintenance Insurance [facility] CHOICE PLUS [facility] HMO/PPO Address: [facility] [address] [place] [address] ANTHEM ACCESS CHOICE ANTHEM ACCESS CHOICE Care Teams Pool Installer Relationship Specialty Start Date End Date Angela Garza NP [address] [place] [address] PCP - General Cardiovascular Disease 12/09/23 Almita Smallwood MD [address] [place] [address] Internal Medicine 04/17/20 [place] [address] [address] [facility] [address], [place] [id number] Surgeon General Surgery 04/07/22
--- OUTSIDE RECORDS SUMMARY | 2024-09-17 11:20 | XMS_ITS | Encounter Summary ---
Author Organization [facility] Address [address] [facility] [place] [address] Care Team Providers Care Retail Coverage Merchandiser Lead Name Role Phone Almita Smallwood MD Primary Care Provider + Encounter Details Date Type Department Care Team (Late st Contact Info) Description 11/09/2018 Lab Requisition [facility] [address] [place] [address] Jorge Luis Tompkins MD [address] [place] [id number] Social History Tobacco Use Types Packs/Day Years Used Date Smoking Tobacco: Never Assessed Comments Unknown Sex and Gender Information Value Date Recorded Sex Assigned at Not on file 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 Gender Identity Not on file Sexual Orientation Not on file documented as of this encounter Plan of Treatment Not on file documented as of this encounter Procedures Procedure Name Priority Date/Time Associated Diagnosis Comments PATHOLOGY TISSUE Routine 11/07/2018 8:00 AM CDT documented in this encounter Results * PATHOLOGY TISSUE (11/07/2018 8:00 AM CDT) Case Report Surgical Pathology Report Case: [id number] Authorizing Provider: Jorge Luis Tompkins MD Collected: 11/07/2018 08:00 AM Pathologist: Linda Ring MD Received: 11/09/2018 10:42 AM Specimen: Lymph Node Biopsy, [id number] 11/10/2018 4:54 PM CDT [facility] Final Diagnosis Lymph node, right axilla, excisional biopsy: - Benign lymph node. - No evidence of malignancy. - See description. 11/10/2018 4:54 PM [facility] at 1654 CDT Microscopic Description and Comment Review of the [...] is performed on block A2 in the [facility] Department of Pathology with appropriately reactive [...] infiltrate in the node. The report from [facility] describing an atypical lymphoid proliferation on needle core biopsy most likely represents sampling of primary follicles rather than a lymphoproliferative disorder; however, those slides are not provided for review in conjunction with this case. Clinical correlation is advised. KR 11/10/2018 4:54 PM [facility] Clinical History 58 year old woman presents with right axillary lymphadenopathy. History of ductal carcinoma in situ. 11/10/2018 4:54 PM [facility] Materials Received Received are 2 slides and 2 blocks labeled as [id number] along with the outside pathology report. [place] [address]. All materials are returned to the referring institution, along with a copy of our final report. 11/10/2018 4:54 PM CDT [facility] Disclaimer The performance characteristics of all immunohistochemical and indirect immunofluorescence stains (if any) cited in this report were determined by the Histopathology Laboratory of [facility]. Some of these tests were developed by [...] interpretation of this case is performed by [facility] Pathology at [facility], [address] [place] [address]. 11/10/2018 4:54 PM CDT [facility] Embedded Images 11/10/2018 4:54 PM CDT [facility] Pathology/Cytolo gy BIOPSY OF LYMPH NODE / Unknown 11/07/2018 8:00 AM CDT 11/09/2018 10:42 AM CDT Jorge Luis Tompkins MD LAB - PATHOLOGY/CYTOLOGY ORDER MANUEL Final Result [facility] [address] [place] [address] documented in this encounter Visit Diagnoses Not on filedocumented in this encounter Care Teams Retail Coverage Merchandiser Lead Relationship Specialty Start Date End Date Almita Smallwood MD [address] [place] [address] PCP - General Internal Medicine 10/16/18 documented as of this encounter
--- OUTSIDE RECORDS SUMMARY | 2024-09-17 11:20 | XMS_ITS | Clinical Summary ---
Author Organization [facility] Address [address] [place] [address] Care Team Providers Care Induction Machine Operator Name Role Phone Almita Smallwood MD Primary Care Provider + Source Comments [facility],non-owned Affiliates and Associated Physician Practices is amultiple site organization consisting of ambulatory clinics and hospital sitesin [place], [place], [place]. This disclosure is being madepursuant to the Care Everywhere program and may not contain all information available regarding this patient. 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 Gender Identity Not on file Sexual [...] 02/07/1980 DTAP/TDAP/TD VACCINES (1 - Tdap) 1981 PNEUMOCOCCAL VACCINE 50+ (1 of 1 - PCV) 02/12/2012 ZOSTER VACCINE (1 of 2) 02/12/2012 MAMMOGRAM 06/21/2020 06/21/2018, 06/21/2018 COVID-19 VACCINE (1 - 2023-2 5 season) 2023 DEPRESSION SCREENING 04/18/2024 INFLUENZA VACCINE (Season Ended) 2024 01/30/2018 Respiratory Syncytial Virus (RSV) Vaccine Pt: [...] patient's age to complete this topic MENINGOCOCCAL (Group B) VACCINE SHARED DECISION-MAKING Aged Out No longer eligible based on patient's age to complete this topic MENINGOCOCCAL GROUPS A/C/Y/W VACCINE Aged Out No longer eligible b ased on patient's age to complete this topic Insurance [facility] SELF PAY NO INSURANCE Member Subscriber Plan / Payer (Ef fective for All Dates) Name:Anitha Hermosillo Member ID:Not on file Relation to Subscriber:Not on file Name:ANITHA HERMOSILLO Subscriber ID:Not on file (Home) Address: [address] [place] [id number] Payer ID:Not on file Group ID:Not on file Type:Self Pay Address: [place], [place] [id number] ANTH BCBS/BLUE BLUE CROSS BLUE [facility] ANTHEM Care Teams Induction Machine Operator Relationship Specialty Start Date End Date Almita Smallwood MD [address] [place] [address] PCP - General Internal Medicine 10/16/18
--- OUTSIDE RECORDS SUMMARY | 2024-09-17 11:21 | XMS_ITS ---
Author Organization [facility] Address [address] [facility] [place] [address] Care Team Providers Care Field Hockey Coach Name Role Phone Almita Smallwood MD [...] malignancy. Assessment & Plan (02/25/2020 8:08 AM STRADDLE TRUCK DRIVER): I have explained to her that she [...] her pharmacy. She knows to contact her adaptive physical educator should she develop any vaginal bleeding. Will plan to see her every 6 months. Advised her to do monthly breast examinations and yearly mammograms and to contact us or her breast surgeon should she notice any abnormality on her breast exam. She verbalized understanding of today's discussion, was satisfied with the office visit, and had no further questions. Current Treatment and Therapy Plans No current plan information found. Past Treatment and Therapy Plans No past plan information found. Lifetime Dose Tracking * Chemical Lifetime Dose [...]
--- OUTSIDE RECORDS SUMMARY | 2024-09-17 11:21 | XMS_ITS | Encounter Summary ---
Author Organization [facility] Healthcare Address [address] [place] [address] Care Team Providers Care Wind Up Worker Name Role Phone Unavailable Primary Care Provider Unavailabl e Reason for Visit * Diagnostic Imaging (Routine) - Closed Specialty Diagnoses / Procedures Referred By Ttai campos Referred To Contact Procedures Breast Imaging Screening Outside Reference Linda Buckley MD PhD Phone: tel: fax: Referral ID Status Reason Start Date Expiration Date Visits Re quested Visits Authorized [id number] Closed 07/02/2021 08/01/2022 1 1 Encounter Details Date Type Department Care Team (Late st Contact Info) Description 08/28/2015 Hospital Encounter [facility] [address] [place] [address] Social History Tobacco Use Types Packs/Day Years [...] on file 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 There will be no report generated by a [facility] Radiologist. Narrative [facility] - 07/02/2021 3:02 PM CDT EXAMINATION: Images For Reference Purposes Only us Linda Buckley MD PhD IMG MAMMO PROCEDURES Final Result [facility] documented in this encounter Visit Diagnoses Not on filedocumented in this encounter
--- OUTSIDE RECORDS SUMMARY | 2024-09-17 11:21 | XMS_ITS | Encounter Summary ---
Author Organization [facility] Healthcare Address [address] [place] [address] Care Team Providers Care Ticketing Clerk Name Role Phone Unavailable Primary Care Provider Unavailabl e Reason for Visit * Diagnostic Imaging (Routine) - Closed Specialty Diagnoses / Procedures Referred By Tati t Referred To Contact Procedures Breast Imaging Diagnostic Outside Reference Linda Buckley MD PhD Phone: tel: fax: Referral ID Status Reason Start Date Expiration Date Visits Re quested Visits Authorized [id number] Closed 07/02/2021 08/01/2022 1 1 Encounter Details Date Type Department Care Team (Late st Contact Info) Description 08/28/2015 12:05 AM CDT Hospital Encounter [facility]iology [facility] [address] [place] [phone] Social History Tobacco Use Types Packs/Day Years [...] on file 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 There will be no report generated by a [facility] Radiologist. Narrative [facility] - 07/02/2021 3:10 PM CDT EXAMINATION: Images For Reference Purposes Only us Linda Buckley MD PhD IMG MAMMO PROCEDURES Final Result [facility] documented in this encounter Visit Diagnoses Not on filedocumented in this encounter
--- OUTSIDE RECORDS SUMMARY | 2024-09-17 11:21 | XMS_ITS | Encounter Summary ---
Author Organization [facility] Healthcare Address [address] [place] [address] Care Team Providers Care Sales Training Coordinator Name Role Phone Unavailable Primary Care Provider Unavailabl e Reason for Visit * Diagnostic Imaging (Routine) - Closed Specialty Diagnoses / Procedures Referred By Tati campos Referred To Contact Procedures Breast Imaging Diagnostic Outside Reference Linda Buckley MD PhD Phone: tel: fax: Referral ID Status Reason Start Date Expiration Date Visits Re quested Visits Authorized [id number] Closed 07/02/2021 08/01/2022 1 1 Encounter Details Date Type Department Care Team (Late st Contact Info) Description 11/22/2016 Hospital Encounter [facility] [address] [place] [address] Social History Tobacco Use Types Packs/Day [...] on file 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 There will be no report generated by a [facility] Radiologist. Narrative [facility] - 07/02/2021 3:01 PM CDT EXAMINATION: Images For Reference Purposes Only us Linda Buckley MD PhD IMG MAMMO PROCEDURES Final Result [facility] documented in this encounter Visit Diagnoses Not on filedocumented in this encounter
--- OUTSIDE RECORDS SUMMARY | 2024-09-17 11:21 | XMS_ITS | Encounter Summary ---
Author Organization [facility] Healthcare Address [address] [place] [address] Care Team Providers Care Inspector Production Plastic Parts Name Role Phone Unavailable Primary Care Provider Unavailabl e Reason for Visit * Diagnostic Imaging (Routine) - Closed Specialty Diagnoses / Procedures Referred By Tati t Referred To Contact Procedures Breast Imaging Diagnostic Outside Reference Linda Buckley MD PhD Phone: tel: fax: Referral ID Status Reason Start Date Expiration Date Visits Re quested Visits Authorized [id number] Closed 07/02/2021 08/01/2022 1 1 Encounter Details Date Type Department Care Team (Late st Contact Info) Description 10/27/2016 12:05 AM CDT Hospital Encounter [facility] Radiology [facility] [address] [place] [phone] Social History Tobacco Use Types Packs/Day Years [...] on file 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 There will be no report generated by a [facility] Radiologist. Narrative [facility]MAMMO[facility] - 07/02/2021 3:01 PM CDT EXAMINATION: Images For Reference Purposes Only us Linda Buckley MD PhD IMG MAMMO PROCEDURES Final Result [facility] documented in this encounter Visit Diagnoses Not on filedocumented in this encounter
--- OUTSIDE RECORDS SUMMARY | 2024-09-17 11:21 | XMS_ITS | Encounter Summary ---
Author Organization [facility] Address [address] [place] [address] Phone Care Team Providers Care Electromedical Service Engineer Name Role Phone Almita Smallwood MD Primary Care Provider + Almita Smallwood MD Unavailable [phone] Jacek Laura MD Unavailable [phone] Yuri Rocha MD Unavailable [phone] Boone Dunham DO Primary Care Provider [phone] Angela Garza NP Primary Care Provider [phone] Encounter Details Date Type Department Care Team (Late st Contact Info) Description 06/08/2021 Telephone [facility] Oncology [address] 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[employer]) Not on file Not on file Not on file documented as of this encounter Plan of Treatment Not on file documented as of this encounter Visit Diagnoses Not on filedocumented in this encounter Care Teams Electromedical Service Engineer Relationship Specialty Start Date End Date Almita Smallwood MD [address] [place] [address] PCP - General 04/17/20 02/14/23 [place] [address] [address] [place], [place] [id number] PCP - General Internal Medicine 02/15/23 12/08/23 Angela Garza NP [address] [place] [address] PCP - General Cardiovascular Disease 12/09/23 Almita Smallwood MD [address] [place] [address] Internal Medicine 04/17/20 Jacek Laura MD [address] [facility] [address] [place] [address] Referring Physician Hematology 06/02/21 06/28/22 [place] [address] [address] [place], [place] [id number] Surgeon General Surgery 04/07/22 documented as of this encounter
--- OUTSIDE RECORDS SUMMARY | 2024-09-17 11:21 | XMS_ITS | Encounter Summary ---
Author Organization [facility] Healthcare Address [address] [place] [address] Care Team Providers Care Medicare Sales Representative Name Role Phone Unavailable Primary Care Provider Unavailabl e Reason for Visit * Diagnostic Imaging (Routine) - Closed Specialty Diagnoses / Procedures Referred By Tati t Referred To Contact Procedures Breast Imaging Screening Outside Reference Linda Buckley MD PhD Phone: tel: fax: Referral ID Status Reason Start Date Expiration Date Visits Re quested Visits Authorized [id number] Closed 07/02/2021 08/01/2022 1 1 Encounter Details Date Type Department Care Team (Late st Contact Info) Description 09/21/2016 Hospital Encounter [facility] [address] [place] [address] Social History Tobacco Use Types Packs/Day [...] on file 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 Radiology. There will be no report generated by a [facility] Radiologist. Narrative [facility]MO[facility] - 07/02/2021 3:02 PM CDT EXAMINATION: Images For Reference Purposes Only us Linda Buckley MD PhD IMG MAMMO PROCEDURES Final Result [facility] documented in this encounter Visit Diagnoses Not on filedocumented in this encounter
--- OUTSIDE RECORDS SUMMARY | 2024-09-17 11:21 | XMS_ITS | Encounter Summary ---
Author Organization [facility] Healthcare Address [address] [place] [address] Care Team Providers Care Automatic Folder Seamer Name Role Phone Unavailable Primary Care Provider Unavailabl e Reason for Visit * Diagnostic Imaging (Routine) - Closed Specialty Diagnoses / Procedures Referred By Tati campos Referred To Contact Procedures Breast Imaging Diagnostic Outside Reference Linda Buckley MD PhD Phone: tel: fax: Referral ID Status Reason Start Date Expiration Date Visits Re quested Visits Authorized [id number] Closed 07/02/2021 08/01/2022 1 1 Encounter Details Date Type Department Care Team (Late st Contact Info) Description 10/27/2016 Hospital Encounter [facility] Radiology [facility] [address] [place] [address] Social History Tobacco Use Types Packs/Day Years [...] file 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 There will be no report generated by a [facility] Radiologist. Narrative [facility]MO[facility] - 07/02/2021 3:00 PM CDT EXAMINATION: Images For Reference Purposes Only us Linda Buckley MD PhD IMG MAMMO PROCEDURES Final Result [facility] documented in this encounter Visit Diagnoses Not on filedocumented in this encounter
--- OUTSIDE RECORDS SUMMARY | 2024-09-17 11:21 | XMS_ITS | Encounter Summary ---
Author Organization [facility] Healthcare Address [address] [place] [address] Care Team Providers Care Human Resource Assistant Name Role Phone Unavailable Primary Care Provider Unavailabl e Reason for Visit * Diagnostic Imaging (Routine) - Closed Specialty Diagnoses / Procedures Referred By Tati campos Referred To Contact Procedures Breast Imaging Diagnostic Outside Reference Linda Buckley MD PhD Phone: tel: fax: Referral ID Status Reason Start Date Expiration Date Visits Re quested Visits Authorized [id number] Closed 07/02/2021 08/01/2022 1 1 Encounter Details Date Type Department Care Team (Late st Contact Info) Description 10/05/2016 Hospital Encounter 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
--- OUTSIDE RECORDS SUMMARY | 2024-09-17 11:21 | XMS_ITS | Clinical Summary ---
Author Organization [facility] Address [address] [place] [address] Care Team Providers Care Turpentiner Name Role Phone Almita Smallwood MD Primary Care Provider + Allergies No known active allergies Medications TURMERIC ORAL Take by mouth. A ctive COLLAGEN MISC by Misc.(Non-Drug; Combo Route) route. Active cyanocobalamin (VITAMIN B-12) 250 mcg Tablet Take 250 mcg by mouth daily. Active multivitamin (MULTIPLE VITAMINS DAILY ORAL) Take 2 Each by mouth daily. Gummy vitamins 0 Active levocetirizine (Xyzal) 5 mg tablet Take 1 Tablet (5 mg) by mouth late in the day. 30 Tablet 1 0 Active azelastine (ASTELIN) 137 mcg/actuation nasal spray Administer 2 Sprays in each nostril 2 times daily. 30 mL 0 Active cholecalciferol , vitamin D3, (VITAMIN D3 ORAL) Take 1 Tablet by mouth daily. Active prasterone, DHEA, (DHEA ORAL) Take 1 Tablet by mouth daily. Active montelukast (SINGULAIR) 10 mg tablet TAKE 1 TABLET DAILY AT BEDTIME 90 Tablet 3 4 Active fexofenadine (KIARRA) 180 mg tablet Take 180 mg by mouth daily. Active Bacillus coagulans (PROBIOTIC, B. COAGULANS, ORAL) Take by mouth. Activ e NAPROXEN SODIUM, BULK, MISC by Misc.(Non-Drug; Combo Route) route. Active amitriptyline (ELAVIL) 10 mg tablet Take 10 mg by mouth daily at bedtime. Active rizatriptan benzoate (RIZATRIPTAN ORAL) Take by mouth. Activ e dextromethorpha n-guaiFENesin (MUCINEX DM) 30-600 mg Tablet Sustained Release 12HR Take 1 Tablet by mouth every 12 hours. Active acetaminophen (TYLENOL) 325 mg tablet Take 2 Tablets (650 mg) by mouth every 6 hours as needed for Pain. 40 Tablet 09/07/2023 12:27 PM CDT 4 Active ibuprofen (MOTRIN) 600 mg tablet Take 1 Tablet (600 mg) by mouth every 6 hours as needed for Pain. 40 Tablet 09/07/2023 12:27 PM CDT 4 Active oxyCODONE (ROXICODONE) 5 mg tabletIndicatio ns:Maxillary hypoplasia Take 1 Tablet (5 mg) by mouth every 4 hours as needed for Pain, Severe. Max Daily Amount: 6 tablets 20 Tablet 09/07/2023 12:27 PM CDT 4 Active sodium chloride (OCEAN) 0.65 % Aerosol, Etta Administer 2 Sprays in each nostril every 2 hours as needed for Congestion. 44 mL 09/07/2023 12:27 PM CDT 4 Active Active Problems Problem Noted Date [...] malignancy. Assessment & Plan (02/25/2020 8:08 AM MANAGER PORTABLE): I have explained to her that she [...] her pharmacy. She knows to contact her drafter directional survey should she develop any vaginal bleeding. Will [...] Encounters Date Type Department Care Team Description 09/05/2024 External Device Data STL ABSTRACTION Provider, Abstract 09/04/2024 External Device Data STL ABSTRACTION Provider, Abstract 06/26/2024 Refill [facility] [address] [place] [address] [address] [place] [phone] Jorge Luis Black MD from Last 3 Months Immunizations Immunization Administration Dates Next Due (ADACEL/BOOSTRIX)(10 YR UP) TDAP VACCINE, 0.5ML, IM 03/14/2018 (Moderna Bivalent)(6 Mos Up) COVID-19 Vaccine - Emergency Use Authorization, MRNA(Pf) 50 Mcg/0.5 Ml Im Susp 02/03/2022 (PREVNAR 20)(6 WKS UP) PNEUM OCOCCAL CONJUGATE VACCINE 20-VALENT (PCV20), POLYSACCHARIDE ATH184 CONJUGATE, ADJUVANT 0.5 ML (PF) IM 10/23/2021 [...] Answer Date Recorded Social/Environmental Concerns No concerns Comments No Sex and Gender Information Value Date Recorded Sex Assigned at Not on file Legal Sex Female 3:43 PM CDT Gender Identity Not on file Sexual Orientation Not on file Last Filed Vital Signs Vital Sign Reading Time Taken Comments Blood Pressure 135/62 09/07/2023 11:22 AM CDT Pulse 89 09/07/2023 11:22 AM CDT Temperature 36.7 C (98 F) 09/07/2023 11:22 AM CDT Respiratory Rate 12 09/07/2023 11:22 AM CDT Oxygen Saturation 99% 09/07/2023 11:22 AM CDT Inhaled Oxygen Concentration - - Weight 69 kg (152 lb 3.2 oz) 09/05/2023 11:55 AM CDT Height 165.1 cm (5' 5) 09/05/2023 11:55 AM CDT Body Mass Index 25.33 09/05/2023 11:55 AM CDT Plan of Treatment Health Maintenance Due Date Last Done Comments Pre-Diabetes and Diabetes Screening 1960 HPV/Cotest (21-29) 1983 CERVICAL CANCER SCREENING 02/12/1992 HPV/Cotest (30-65) 02/12/1992 PAP SMEAR 02/12/1992 COLORECTAL SCREENING 2007 Colorectal Cancer Screening 2007 FIT-DNA Q 3 years 2007 FIT/FOBT Q 1 year 2007 Flex Sig/CT Colonography Q 5 years 2007 RSV VACCINE (60+ or ) (1 - Risk 60-74 years 1-dose series) 2022 INFLUENZA VACCINE (#1) 2023 , 01/17/2020, 01/30/2018 COVID-19 Vaccine (2023-2 5 season) 2023 02/03/2022, 01/30/2021, 08/14/2020, Additional history exists Preventative Visit- Commercial 04/18/2024 0 10/15/2021, 04/29/2021, 04/16/2020, Additional history exists BREAST CANCER SCREENING 12/08/2024 12/09/19 24, 12/09/2023, 06/29/2022, Additional history exists DTAP/TDAP/TD VACCINES (2 - T d or Tdap) 03/14/2028 03/14/2018 ZOSTER VACCINE Completed 01/07/2022, 10/23/2021 Medical Devices Implanted Type Area Tool Grinding Machine Operator Device Identifier Shelf Expiration Date Model / Serial / Lot Plate Loc Fx Crv Shrt N-Cmprsn [id number] - Ssterilized Aug 30 2023 Implanted:Qty: 2 on 09/05/2023 by Juan Manuel Farnsworth MD at [facility] Plate N/A: Mandible MICK CHANNING TURNER [id number] / STERILIZED AUG 30 2023 / LOAD 27 Description:Bilateral Plate-L Lp Rt Lng 0.6mm [id number] - Sload # 2 7 Sterilized August 30, 2023 Implanted:Qty: 1 on 09/05/2023 by Juan Manuel Farnsworth MD at [facility] Plate Right: Maxilla MICK CHANNING TURNER [id number] / LOAD # 2 7 STERILIZED AUGUST 30, 2023 / Plate-L Lp Lt Lng .6mm [id number] - Sload # 2 7 Sterilized August 30, 2023 Implanted:Qty: 1 on 09/05/2023 by Juan Manuel Farnsworth MD at [facility] Plate Left: Maxilla MICK SNELL LP [id number] / LOAD # 2 7 STERILIZED AUGUST 30, 2023 / Mini 100 Degree L Plate Right Implanted:Qty: 1 on 09/05/2023 by Juan Manuel Farnsworth MD at [facility] Plate Right: Maxilla MICK SNELL LP [id number] / / Mini 100 Degree L Plate Left Implanted:Qty: 1 on 09/05/2023 by Juan Manuel Farnsworth MD at [facility] Plate Left: Maxilla MICK SNELL LP [id number] / / Description:MICK AGUEROI SITION# [id number] Screw Lvl 1 Cmf 2.0x7mm Crossdrive Tlts [id number] - Ssterilized Aug 30 2023 Implanted:Qty: 8 on 09/05/2023 by Juan Manuel Farnsworth MD at [facility] Screw N/A: Mandible MICK SNELL LP [id number] / STERILIZED AUG 30 2023 / LOAD 27 Description:Bilateral Screw Sd Maxdr 2.0x7mm [id number] - Sload # 2 7 Sterilized August 30, 2023 Implanted:Qty: 18 on 09/05/2023 by Juan Manuel Farnsworth MD at [facility] Screw N/A: Maxilla MICK SNELL LP [id number] / LOAD # 2 7 STERILIZED AUGUST 30, 2023 / Description:Bilateral Screw Er Mxdrv 2.3x7mm [id number] - Sload # 2 7 Sterilized August 30, 2023 Implanted:Qty: 2 on 09/05/2023 by Juan Manuel Farnsworth MD at [facility] Screw Right: Maxilla MICK SNELL LP [id number] / LOAD # 2 7 STERILIZED AUGUST 30, 2023 / Explanted Type Area Tool Grinding Machine Operator Device Identifier Shelf Expiration Date Model / Serial / Lot Screw Er Mxdrv 2.3x7mm [id number] - Sload # 2 7 Sterilized August 30, 2023 Explanted:Qty: 1 on 09/05/2023 by Juan Manuel Farnsworth MD at [facility] Screw N/A: Maxilla MICK SNELL LP [id number] / LOAD # 2 7 STERILIZED AUGUST 30, 2023 / Screw Sd Maxdr 2.0x5mm [id number] - Sload # 2 7 Sterilized August 30, 2023 Explanted:Qty: 3 on 09/05/2023 by Juan Manuel Farnsworth MD at [facility] Screw N/A: Face MICK SNELL LP [id number] / LOAD # 2 7 STERILIZED AUGUST 30, 2023 / Procedures Procedure Name Priority Date/Time Associated Diagnosis Comments MAMMO 3D RUTH SCREEN BILAT W OR WO CAD Routine 02/21/2020 1:07 PM MANAGER PORTABLE Encounter for screening mammogram for malignant neoplasm of breast History of ductal carcinoma in situ (DCIS) of breast from Last 3 Months or Most Recently Relevant to Health Maintenance Results * MAMMO SCRN BILAT 3D RUTH W OR WO CAD (02/21/2020 1:07 PM MANAGER PORTABLE) Anatomical Region Laterality Modality Breast Bilateral Mammography 02/21/2020 1:07 PM MANAGER PORTABLE Addenda Addendum by Fiorella Hancock MD on 03/05/2020 7:28 AM MANAGER PORTABLE Comparison is now made with previous films from [facility] [place] dated 09/21/2016. There are post biopsy changes on the right. There are postlumpectomy changes in the upper outer left breast. There are no other significant interval changes. Recommend annual follow-up. OVERALL FINAL ASSESSMENT: BI-RADS CATEGORY 1: Negative. Impressions 02/21/2020 5:08 PM MANAGER PORTABLE IMPRESSION: [facility] Radiology will request the patient's previous outside studies in order to assess for stability. An addendum will be provided after reviewing the outside exams. DICTATION LOCATION: [facility] Narrative 02/21/2020 5:08 PM MANAGER PORTABLE BILATERAL FULL-FIELD DIGITAL SCREENING MAMMOGRAM WITH CAD [...] Incomplete, needs comparison to prior mammograms. IMPRESSION: [facility] Radiology will request the patient's previous outside studies in order to assess for stability. An addendum will be provided after reviewing the outside exams. DICTATION LOCATION: [facility] Almita Smallwood MD MAMMO ORDERABLES Edited Result - Final from Last 3 Months or Most Recently Relevant to Health Maintenance Insurance [facility] BLUE ACCESS CHOICE RX [employer] Advance Directives For more information, please contact: [phone] * Full Code (Latest Code Status on File) Date Activated Date Inactivated Comments 09/05/2023 10:26 PM 09/07/2023 3:21 PM * Full Code Date Activated Date Inactivated Comments 09/05/2023 12:06 PM 09/05/2023 10:26 PM Care Teams Turpentiner Relationship Specialty Start Date End Date Almita Smallwood MD [address] [place] [address] PCP - General Internal Medicine 03/14/18
[2024-09-17 14:30] LABS: Hematocrit 36.4 % (37.0-47.0); Hemoglobin 11.2 g/dL (12.0-15.0); Lymphocytes Absolute Auto 0.96 K/mm3 (0.9-3.2); Lymphocytes Percent Auto 31.7 % (18.3-44.2); Mean Corpuscular HGB Conc 30.8 g/dl (32-36); Mean Corpuscular Hemoglobin 29.8 pg (26-34); Mean Corpuscular Volume 96.8 fl (80-100); Mean Platelet Volume 9.9 fl (7.4-10.4); Monocytes Absolute Auto 0.3 K/mm3 (0.1-0.6); Monocytes Percent Auto 9.6 % (2.6-8.5); Neutrophils Absolute Auto 1.7 K/mm3 (1.3-6.7); Neutrophils Percent Auto 56.7 % (45.5-73.1); Platelet Count Result 197 k/mm3 (150-375); Red Blood Count 3.76 M/mm3 (4.2-5.4); Red Cell Distribution Width 13.2 % (11.5-14.5)
[2024-09-17 14:45] LABS: Hemoglobin A1C 5.1 % (<5.7)
[2024-09-17 15:07] LABS: Free T4 Free Thyroxine 1.06 ng/dL (0.78-2.19); Vitamin D 25 Hydroxy 55.6 ng/mL
[2024-09-17 15:18] LABS: Alanine Aminotransferase 22 U/L (6-35); Albumin Level 4.1 g/dL (3.5-5.1); Alkaline Phosphatase 94 U/L (38-126); Anion Gap 5 mmol/L (4-12); Aspartate Amino Transferase 51 U/L (14-36); Bilirubin,Total 0.4 mg/dL (0.2-1.3); Blood Urea Nitrogen 18 mg/dL (7-17); Calcium 9.6 mg/dL (8.4-10.2); Carbon Dioxide 31 mmol/L (22-30); Chloride 105 mmol/L (98-107); Estimated Glomerular Filt Rate 50; Glucose 91 mg/dL (65-110); Potassium 4.4 mmol/L (3.4-5.0); Sodium 141 mmol/L (137-145)
[2024-09-17 15:34] LABS: Iron 94 ug/dL (37-170)
[2024-09-17 15:42] LABS: Thyroid Stimulating Hormone 0.282 uIU/mL (0.465-4.680)
[2024-09-17 15:46] LABS: Percent Iron Saturation 32 % (20-50)
[2024-09-19 21:54] LABS: CRP < 0.5 mg/dL (<1.0)
== END 2024-09-17 10:48 | disposition home or self-care (01) ==
LOC: ANHGOSHLAB 10:48
PROVIDERS: PCP Internal Medicine; Visit Provider Clinical Nurse Specialist
DX: Z13.228 Encounter for screening for other metabolic disorders (principal); R06.02 Shortness of breath; K59.09 Other constipation; M54.12 Radiculopathy, cervical region; R41.3 Other amnesia; R42 Dizziness and giddiness; D64.9 Anemia, unspecified; R51.9 Headache, unspecified; G89.29 Other chronic pain; E55.9 Vitamin D deficiency, unspecified; R74.8 Abnormal levels of other serum enzymes
CPT/HCPCS: 36415; 80053; 82306; 82607; 82728; 83036; 83540; 83550; 84439; 84443; 84481; 85025; 86140

== ENCOUNTER 2024-10-02 11:20 | Outpatient (CLI) | payer BC, SELFPAY ==
--- NOTE | ~2024-10-02 | US_ITS ---
Renal-Bladder ultrasound Clinical History: Abnormal kidney function studies Technique: Real-time sonographic imaging of the kidneys and urinary bladder was performed. Findings: The right kidney measures 9.3 cm in length and the left kidney measures 9.3 cm. There is no hydronephrosis. Questionable 5 mm left renal stone. Renal cortical echogenicity is within normal [place] its. No renal mass lesion is identified. The urinary bladder is moderately distended at the time of this exam. No intraluminal echoes are iden tified. No abnormal wall thickening is seen. Impression: Questionable nonobstructing 5 mm left renal stone. Reviewed, dictated and finalized at location M. Impression: Questionable nonobstructing 5 mm left renal stone.
== END 2024-10-02 11:21 | disposition home or self-care (01) ==
LOC: GOSHIMG 11:20
PROVIDERS: PCP Clinical Nurse Specialist; Visit Provider Clinical Nurse Specialist
DX: R94.4 Abnormal results of kidney function studies (principal); N20.0 Calculus of kidney
CPT/HCPCS: 76775

== ENCOUNTER 2024-10-02 11:33 | Outpatient (CLI) | payer BC, SELFPAY ==
--- OUTSIDE RECORDS SUMMARY | 2024-10-02 12:34 | XMS_ITS | Clinical Summary ---
Author Organization [place] [id number] [facility] Address [address] [place] [address] Care Team Providers Care Clinical Cytopathologist Name Role Phone Almita Smallwood MD Unavailable [phone] Yuri Rocha MD Unavailable [phone] Angela Garza NP Primary Care Provider [phone] Allergies No known active allergies Medications collagen, hydrolysate, bovine, (COLLAGEN, HYDR, BOVINE,, BULK, MISC) by [facility].(Non-Drug; Combo Route) route. 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 No chemorx or XRT, only Tamoxifen. 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 For women [...] to High Risk HPV (04/16/2020 9:07 AM FOUNTAIN HELPER) 04/16/2020 9:07 AM FOUNTAIN HELPER 04/16/2020 9:07 AM FOUNTAIN HELPER [facility] PATHOLOGY LAB - 04/21/2020 10:13 AM FOUNTAIN HELPER [facility] Department of Pathology [address] [place] [address] Final Report with Addendum Patient Name: LISA HERMOSILLO Address: [facility] [address] [place] [address] Gender: F : 1960 (Age: 60) Service: Laboratory Location: Lab [facility] #: [id number] Patient Type: Ref Lab Taken: 04/16/2020 Received: 04/16/2020 Accessioned:: 04/17/2020 Reported: 04/21/2020 Physician(s): Almita Obando Diagnosis: Source of Specimen: Imaged Thinprep Pap Test plus HPV - Coordinate Measuring Equipment Operator Cytologic Material Specimen Adequacy: - Specimen satisfactory [...] Imaged Thinprep Pap Test plus HPV - Coordinate Measuring Equipment Operator Cytologic Material Clinical History: Last [...] by the Surgical Pathology Department at [facility] as part of an ongoing data quality consultant program and in compliance with federally mandated [...] by the Surgical Pathology Department [facility]. It has not been cleared or approved by the U. S. Food and Drug Administration. Almita Obando MD LAB CYTOLOGY ORDERABLES Final Result [facility] PATHOLOGY LAB [address] [address] from Last 3 Months or Most Recently Relevant to Health Maintenance Insurance [facility] CHOICE PLUS ANTHEM ACCESS CHOICE ANTHEM ACCESS CHOICE Care Teams Clinical Cytopathologist Relationship Specialty Start Date End Date Angela Garza NP [address] [place] [address] PCP - General Cardiovascular Disease 12/09/23 Almita Smallwood MD [address] [place] [address] Internal Medicine 04/17/20 [place] [address] [address] [facility] [address] [address] Surgeon General Surgery 04/07/22
--- OUTSIDE RECORDS SUMMARY | 2024-10-02 12:34 | XMS_ITS | Referral Summary ---
Author Organization [facility] [address] [facility] Address [address] [place] [address] Care Team Providers Care Crm Architect Name Role Phone Almita Smallwood MD Unavailable Yuri Rocha MD Unavailable [phone] Angela Garza NP Primary Care Provider [phone] Allergies No known active allergies Medications collagen, hydrolysate, bovine, (COLLAGEN, HYDR, BOVINE,, BULK, MISC) by [facility].(Non-Drug; Combo Route) route. 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[employer]) Not on file Not on file Not [...] 165.1 cm (5' 5) 04/07/2022 8:39 AM INTERNET DEVELOPER Body Mass Index 25.56 04/07/2022 8:39 AM INTERNET DEVELOPER Plan of Treatment Not on file Procedures Procedure Name Priority Date/Time Associated Diagnosis Comments SCREENING MAMMOGRAM BILATERAL W CHRIS Schedule Routine, Read Routine (OP Routine) 12/09/2023 7:44 AM CDT Encounter for screening mammogram for breast cancer PAP WITH REFLEX TO HIGH RISK HPV Routine 04/16/2020 9:07 AM INTERNET DEVELOPER from Last 3 Months or Most Recently [...] age 40, based on guidelines of the [employer] (ACR Practice Parameter for the Performance of Screening and Diagnostic Mammography) and [employer]nec[employer]. For women [...] to High Risk HPV (04/16/2020 9:07 AM INTERNET DEVELOPER) 04/16/2020 9:07 AM INTERNET DEVELOPER 04/16/2020 9:07 AM INTERNET DEVELOPER Narrative [facility] PATHOLOGY LAB - 04/21/2020 10:13 AM INTERNET DEVELOPER [facility] Department of Pathology [address] [place] [address] Final Report with Addendum Patient Name: ANITHA HERMOSILLO Address: [address] [place] [address],[place] [address] Gender: F : 1960 (Age: 60) Service: Laboratory Location: Lab [facility] #: [id number] Patient Type: Ref Lab Taken: 04/16/2020 Received: 04/16/2020 Accessioned:: 04/17/2020 Reported: 04/21/2020 Physician(s): Almita Obando Diagnosis: Source of Specimen: Imaged Thinprep Pap Test plus HPV - Die Casting Machine Operator Cytologic Material Specimen Adequacy: - Specimen [...] Imaged Thinprep Pap Test plus HPV - Die Casting Machine Operator Cytologic Material Clinical History: Last Menstrual [...] by the Surgical Pathology Department at [facility] as part of an ongoing supplier quality engineer program and in compliance [...] characteristics determined by the Surgical Pathology Department [facility]. It has not been cleared or approved by the U. S. Food and Drug Administration. Almita Obando MD LAB CYTOLOGY ORDERABLES Final Result [facility] [address] [place] [address] from Last 3 Months or Most Recently Relevant to Health Maintenance Insurance [facility] CHOICE PLUS [facility] HMO/PPO Address: [facility] [address] [place] [address] ANTHEM ACCESS CHOICE ANTHEM ACCESS CHOICE Care Teams Crm Architect Relationship Specialty Start Date End Date Angela Garza NP [address] [place] [address] PCP - General Cardiovascular Disease 12/09/23 Almita Smallwood MD [address] [place] [address] Internal Medicine 04/17/20 [place] [address] [facility] 1 [facility] [[email or web address]] [address] [place], [place] [id number] Surgeon General Surgery 04/07/22
--- OUTSIDE RECORDS SUMMARY | 2024-10-02 12:34 | XMS_ITS | Encounter Summary ---
Author Organization [facility] Healthcare Address [address] [place] [address] Care Team Providers Care Hat Body Sorter Name Role Phone Almita Smallwood MD Primary Care Provider + Reason for Visit * Diagnostic Imaging (Routine) - Closed Specialty Diagnoses / Procedures Referred By Contac t Referred To Contact Procedures Breast Imaging Screening Outside Reference Linda Buckley MD PhD [phone] [place] [address] Phone: tel: fax: Referral ID Status Reason Start Date Expiration Date Visits Re quested Visits Authorized [id number] Closed 08/03/2021 09/02/2022 1 1 Encounter Details Date Type Department Care Team (Late st Contact Info) Description 02/21/2020 Hospital Encounter [facility] [address] [place] [address] Social History Tobacco Use Types Packs/Day [...] on file Legal Sex Female 3:38 AM 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 AND RETAIL 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 Gender Identity Not on file Sexual Orientation Not on file 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[employer]) Not on file Not on file Not on file documented as of this encounter Functional Status documented as of this encounter Plan of Treatment Not on file documented as of this encounter Procedures Procedure Name Priority Date/Time Associated Diagnosis Comments BREAST IMAGING MG SCREENING OUTSIDE REFERENCE Routine 02/21/2020 12:00 AM WHOLESALE AND RETAIL MERCHANT documented in this encounter Results * Breast Imaging Screening Outside Reference (02/21/2020 12:00 AM WHOLESALE AND RETAIL MERCHANT) Impressions [facility]MO[facility] - 08/03/2021 10:35 AM CDT These images are for Reference purposes only and have not been reviewed by [facility]iology. There will be no report generated by a [facility] Radiologist. Narrative [facility]MO[facility] - 08/03/2021 10:35 AM CDT EXAMINATION: Images For Reference Purposes Only Linda Buckley MD PhD IMG MAMMO PROCEDURES Final Result [facility] documented in this encounter Visit Diagnoses Not on filedocumented in this encounter Care Teams Hat Body Sorter Relationship Specialty Start Date End Date Almita Smallwood MD [address] [place] [id number] PCP - General Internal Medicine 02/14/20 04/16/20 documented as of this encounter
--- OUTSIDE RECORDS SUMMARY | 2024-10-02 12:34 | XMS_ITS | Encounter Summary ---
Author Organization [facility] Healthcare Address [address] [place] [address] Care Team Providers Care Sack Filler Name Role Phone Unavailable Primary Care Provider Unavailabl e Reason for Visit * Diagnostic Imaging (Routine) - Closed Specialty Diagnoses / Procedures Referred By Tati campos Referred To Contact Procedures Breast Imaging Screening Outside Reference Linda Buckley MD PhD Phone: tel: fax: Referral ID Status Reason Start Date Expiration Date Visits Re quested Visits Authorized [id number] Closed 07/02/2021 08/01/2022 1 1 Encounter Details Date Type Department Care Team (Late st Contact Info) Description 10/21/2017 Hospital Encounter [facility] [address] [place] [address] Social History Tobacco Use Types Packs/Day Years [...] on file Legal Sex Female 3:38 AM WINDSCREEN FITTER Gender Identity Not on file Sexual Orientation Not on file 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 There will be no report generated by a [facility] Radiologist. Narrative [facility]_M[facility]MO[facility] - 07/02/2021 3:00 PM CDT EXAMINATION: Images For Reference Purposes Only us Linda Buckley MD PhD IMG MAMMO PROCEDURES Final Result [facility] documented in this encounter Visit Diagnoses Not on filedocumented in this encounter
--- OUTSIDE RECORDS SUMMARY | 2024-10-02 12:34 | XMS_ITS | Clinical Summary ---
Author Organization [facility] Address [address] [place] [address] Care Team Providers Care Adult Crossing Guard Name Role Phone Almita Smallwood MD Primary Care Provider + Source Comments [facility],non-owned Affiliates and Associated Physician Practices is amultiple site organization consisting of ambulatory clinics and hospital sitesin [place], [place], [place] and [place]. This disclosure is being madepursuant to the Care Everywhere program and may not contain all information available regarding this patient. Last updated 18.[facility] [employer] Social History Tobacco Use Types Packs/Day Years Used Date Smoking Tobacco: Never Assessed Comments Unknown Sex and Gender Information Value Date Recorded Sex Assigned at Not on file Legal Sex Female 5:33 PM MUCK MINER BLASTING Gender Identity Not on file Sexual Orientation [...] COLON CA SCREENING 1962 LIPID TESTING 1962 HIV SCREENING 1977 HEPATITIS C SCREENING 02/07/1980 DTAP/TDAP/TD VACCINES (1 - Tdap) 1981 PAP SMEAR 1983 PNEUMOCOCCAL VACCINE 50+ (1 of 1 - [...] patient's age to complete this topic Insurance [facility] SELF PAY NO INSURANCE Member Subscriber Plan / Payer (Ef fective for All Dates) Name:GrahamvaishaliAnitha duncan Member ID:Not on file Relation to Subscriber:Not on file Name:ANITHA HERMOSILLO Subscriber ID:Not on file (Home) Address: [address] [place] [id number] Payer ID:Not on file Group ID:Not on file Type:Self Pay Address: [place], [place] ANTH SHEILA BCBS/BLUE BLUE CROSS BLUE [facility] ANTHEM Care Teams Adult Crossing Guard Relationship Specialty Start Date End Date Almita Smallwood MD [address] [place] [address] PCP - General Internal Medicine 10/16/18
--- OUTSIDE RECORDS SUMMARY | 2024-10-02 12:34 | XMS_ITS | Encounter Summary ---
Author Organization [facility] Address [address] [place] [address] Care Team Providers Care Cheese Factory Worker Name Role Phone Almita Smallwood MD Primary Care Provider + Encounter Details Date Type Department Care Team (Late st Contact Info) Description 11/09/2018 Lab Requisition [facility] [address] [place] [address] Jorge Luis Tompkins MD [address] [id number] Social History Tobacco Use Types Packs/Day Years Used Date Smoking Tobacco: Never Assessed Comments Unknown Sex and Gender Information Value Date Recorded Sex Assigned at Not on file Legal Sex Female 5:33 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 Gender Identity Not on file Sexual Orientation Not on file documented as of this encounter Plan of Treatment Not on file documented as of this encounter Procedures Procedure Name Priority Date/Time Associated Diagnosis Comments PATHOLOGY TISSUE Routine 11/07/2018 8:00 AM CDT documented in this encounter Results * PATHOLOGY TISSUE (11/07/2018 8:00 AM CDT) Case Report Surgical Pathology Report Case: [id number] Authorizing Provider: Jorge Luis Tompkins MD Collected: 11/07/2018 08:00 AM Pathologist: Linda Ring MD Received: 11/09/2018 10:42 AM Specimen: Lymph Node Biopsy, [id number] 11/10/2018 4:54 PM CDT [facility] Final Diagnosis Lymph node, right axilla, excisional biopsy: - Benign lymph node. - No evidence of malignancy. - See description. 11/10/2018 4:54 PM [facility] at 1654 CDT Microscopic Description [...] is performed on block A2 in the [facility] Department of Pathology with appropriately reactive [...] infiltrate in the node. The report from [facility] describing an atypical lymphoid proliferation on needle core biopsy most likely represents sampling of primary follicles rather than a lymphoproliferative disorder; however, those slides are not provided for review in conjunction with this case. Clinical correlation is advised. KR 11/10/2018 4:54 PM [facility] Clinical History 58 year old woman presents with right axillary lymphadenopathy. History of ductal carcinoma in situ. 11/10/2018 4:54 PM [facility] Materials Received Received are 2 slides and 2 blocks labeled as [id number] along with the outside pathology report. [place] [address]. All materials are returned to the referring institution, along with a copy of our final report. 11/10/2018 4:54 PM CDT [facility] Disclaimer The performance characteristics of all immunohistochemical and indirect immunofluorescence stains (if any) cited in this report were determined by the Histopathology Laboratory of [facility]. Some of these tests were developed by [...] of this case is performed by [facility] Pathology at [facility], [address] [place] [address]. 11/10/2018 4:54 PM CDT [facility] Embedded Images 11/10/2018 4:54 PM CDT [facility] Pathology/Cytolo gy BIOPSY OF LYMPH NODE / Unknown 11/07/2018 8:00 AM CDT 11/09/2018 10:42 AM CDT Jorge Luis Tompkins MD LAB - PATHOLOGY/CYTOLOGY ORDER MANUEL Final Result [facility] [address] [place] [address] documented in this encounter Visit Diagnoses Not on filedocumented in this encounter Care Teams Cheese Factory Worker Relationship Specialty Start Date End Date Almita Smallwood MD [address] [place] [address] PCP - General Internal Medicine 10/16/18 documented as of this encounter
--- OUTSIDE RECORDS SUMMARY | 2024-10-02 12:34 | XMS_ITS | Encounter Summary ---
Author Organization [facility] Healthcare Address [address] [place] [address] Care Team Providers Care Quilt Stuffer Name Role Phone Unavailable Primary Care Provider Unavailabl e Reason for Visit * Diagnostic Imaging (Routine) - Closed Specialty Diagnoses / Procedures Referred By Tati t Referred To Contact Procedures Breast Imaging Diagnostic Outside Reference Linda Buckley MD PhD Phone: tel: fax: Referral ID Status Reason Start Date Expiration Date Visits Re quested Visits Authorized [id number] Closed 07/02/2021 08/01/2022 1 1 Encounter Details Date Type Department Care Team (Late st Contact Info) Description 11/22/2016 12:05 AM CDT Hospital Encounter [facility] [address] [place] [id number] Social History Tobacco Use Types Packs/Day Years [...] on file 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 There will be no report generated by a [facility] Radiologist. Narrative [facility] - 07/02/2021 3:09 PM CDT EXAMINATION: Images For Reference Purposes Only us Linda Buckley MD PhD IMG MAMMO PROCEDURES Final Result [facility] documented in this encounter Visit Diagnoses Not on filedocumented in this encounter
--- OUTSIDE RECORDS SUMMARY | 2024-10-02 12:34 | XMS_ITS | Encounter Summary ---
Author Organization [facility] Healthcare Address [address] [place] [address] Care Team Providers Care Doctor Of Chiropractic Name Role Phone Unavailable Primary Care Provider Unavailabl e Reason for Visit * Diagnostic Imaging (Routine) - Closed Specialty Diagnoses / Procedures Referred By Tati campos Referred To Contact Procedures Breast Imaging Diagnostic Outside Reference Linda Buckley MD PhD Phone: tel: fax: Referral ID Status Reason Start Date Expiration Date Visits Re quested Visits Authorized [id number] Closed 07/02/2021 08/01/2022 1 1 Encounter Details Date Type Department Care Team (Late st Contact Info) Description 06/21/2018 Hospital Encounter [facility] [address] [place] [address] Social History Tobacco Use Types Packs/Day Years [...] on file Legal Sex Female 3:38 AM UNDERPRESSER HAND Gender Identity Not on file Sexual Orientation Not on file 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
--- OUTSIDE RECORDS SUMMARY | 2024-10-02 12:34 | XMS_ITS ---
Author Organization [facility] [place] ([address]) Address [address] [place] [address] Care Team Providers Care Endo Tech Name Role Phone Boone Dunham Primary Care Provider Unavailab María Elena Portillo Unavailable [phone] Angela Garza Unavailable Unavailable Dr. Mauri Altman Unavailable [phone] REASON FOR VISIT Headache follow-up Encounters Encounter Location Date Provider Diagnosis [facility] [address] [place] [address] 06/23/2023 Mauri Altman Plan Of Treatment No Information Progress Notes * Asa HERMOSILLOFranciscaB:[birth year] (64 yo F)Acc No.[id number]:06/23/2023 Progress Notes Patient: Lisa TOLLIVER Provider: Felipa Altman MD :1960 A ge:63 Y S ex:Female Date:06/23/2023 Address:[address]-[address] Pcp:Boone Dunham Subjective: * Chief Complaints: * 1 . Headache follow-up. * Medical History: Objective: * Vitals: Assessment: Plan: * Treatment: * Billing Information: * Visit Code: * Procedure Codes: * Electronic signature of Dr. Mauri Altman MD on 10/02/2024 at 12:34 PM CDT Sign off status: Pending * Provider: Felipa Altman MD Date: 0 06/23/2023 Generated for Ramón tineo/Reji/Alvin on: 0 10/02/2024 12:34 PM CDT
--- OUTSIDE RECORDS SUMMARY | 2024-10-02 12:35 | XMS_ITS | Encounter Summary ---
Author Organization [facility] Address [address] [place] [address] Phone Care Team Providers Care Data Control Clerk Supervisor Name Role Phone Almita Smallwood MD Primary Care Provider + Almita Smallwood MD Unavailable [phone] Jacek Laura MD Unavailable [phone] Yuri Rocha MD Unavailable [phone] Boone Dunham DO Primary Care Provider [phone] Angela Garza NP Primary Care Provider [phone] Encounter Details Date Type Department Care Team (Late st Contact Info) Description 06/08/2021 Telephone [facility] Oncology [address] [facility] 7th [place] [address] [place] [address] Stella Page Social History Tobacco [...] on file 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 Gender Identity Not on file Sexual Orientation Not on file 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[employer]) Not on file Not on file Not on file documented as of this encounter Plan of Treatment Not on file documented as of this encounter Visit Diagnoses Not on filedocumented in this encounter Care Teams Data Control Clerk Supervisor Relationship Specialty Start Date End Date Almita Smallwood MD [address] [place] [address] PCP - General 04/17/20 02/14/23 [place] [address] [place], [place] [id number] PCP - General Internal Medicine 02/15/23 12/08/23 Angela Garza NP [address] [place] [address] PCP - General Cardiovascular Disease 12/09/23 Almita Smallwood MD [address] [place] [address] Internal Medicine 04/17/20 Jacek Laura MD [address] [facility] [address] [place] [address] Referring Physician Hematology 06/02/21 06/28/22 [place] [address] [address] [place], [place] [id number] Surgeon General Surgery 04/07/22 documented as of this encounter
--- OUTSIDE RECORDS SUMMARY | 2024-10-02 12:35 | XMS_ITS | Patient Health Record ---
Author Organization [facility] [place] ([address]) Address [address] [place] [address] Care Team Providers Care Associate Professor Name Role Phone Boone Dunham Primary Care Provider Unavailab María Elena Portillo Unavailable [phone] Angela Garza Unavailable Unavailable Allergies No Known Allergies Reason For Referral No Information Medications Medication SIG (Take, Route, Frequency, Duration) Notes Start Date End Date Status Magnesium Carbonate *Please revi ew and pick correct strength-formulati on from Robin options. If intended option is not shown, [...] nts Influenza Unknown 03/03/2023 Administered Portal Infor [employer] NOC PedvaxHIB IM Intramuscular 06/09/2023 Administered NOC Pneumovax 23 Unknown 03/03/2023 Administered Portal Information NOC Prevnar 13 Unknown 03/03/2023 Administered Portal I nformation NOC Tdap Unknown 03/03/2023 Administered Portal Infor [employer] Social History Tobacco Use: Social History Observation [...] Status Risk Notes Problem Vitamin D deficiency (27075459) Vitamin D deficiency, unspecified (E55.9) Active confirmed Problem Chronic migraine without aura, non-refractory (disorder) (530346410323606) Migraine without aura, not intractable, without status migrainosus (G43.009) Active confirmed Problem Drug induced headache (774312224301841) Drug-induced headache, not elsewhere classified, not intractable (G44.40) Active confirmed Problem Insomnia (014291049) Insomnia, unspecified (G47.00) Active confirmed Problem Chronic allergic conjunctivitis (24107586) Other chronic allergic conjunctivitis (H10.45) Active confirmed Problem Allergic rhinitis caused by pollen (disorder) (55784740) Allergic rhinitis due to pollen (J30.1) Active confirmed Problem Allergic rhinitis (31997162) Other allergic rhinitis (J30.89) Active confirmed Problem Chronic rhinitis (69993321) Chronic rhinitis (J31.0) Active confirmed Problem Chronic sinusitis (29600757) Other chronic sinusitis (J32.8) Active confirmed Problem Hypertrophy of nasal turbinates (69934560) Hypertrophy of nasal turbinates (J34.3) Active confirmed Problem Uncomplicated mild persistent asthma (319047604) Mild persistent asthma, uncomplicated (J45.30) Active confirmed Problem Uncomplicated moderate persistent asthma (739066968) Moderate persistent asthma, uncomplicated (J45.40) Active confirmed Problem Uncomplicated severe persistent asthma (667670822) Severe persistent asthma, uncomplicated (J45.50) Active confirmed Problem Cervicalgia (45674461) Cervicalgia (M54.2) Active confirmed Problem Menopause (539248938) Menopausal and female climacteric states (N95.1) Active confirmed Problem Vaccination given (572743524) Encounter for immunization (Z23) Active confirmed Problem Allergic rhinitis caused by animal hair and dander (474134219629482) Allergic rhinitis due to animal (cat) (dog) hair and dander (J30.81) Active confirmed Problem Chronic sinusitis (57175241) Chronic sinusitis, unspecified (J32.9) Active confirmed Problem Muscle pain (17573016) Myalgia, unspecified site (M79.10) Active confirmed Problem Cervicogenic headache (667389539) Cervicogenic headache (G44.86) Active confirmed Problem Chronic fatigue syndrome (disorder) (66070884) Chronic fatigue, unspecified (R53.82) Active confirmed Plan Of Treatment Pending Test Test Name Order Date -Haemophilus influenzae B IgG 06/09/2023 Insurance Providers Payer Name Payer Address Payer Phone Subscriber Number Group Number Insured Name Patient Relationship to Insured Coverage Start Date Coverage End Date [facility] [address] [place] [address] [id number] AA Lisa Grimes Self - patient is the insured 3 Medical (General) History Medical History History ICD Code 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
--- OUTSIDE RECORDS SUMMARY | 2024-10-02 12:35 | XMS_ITS | Encounter Summary ---
Author Organization [facility] Healthcare Address [address] [place] [address] Care Team Providers Care Dental Instrument Maker Name Role Phone Unavailable Primary Care Provider Unavailabl e Reason for Visit * Diagnostic Imaging (Routine) - Closed Specialty Diagnoses / Procedures Referred By Tati t Referred To Contact Procedures Breast Imaging Screening Outside Reference Linda Buckley MD PhD Phone: tel: fax: Referral ID Status Reason Start Date Expiration Date Visits Re quested Visits Authorized [id number] Closed 07/02/2021 08/01/2022 1 1 Encounter Details Date Type Department Care Team (Late st Contact Info) Description 09/21/2016 Hospital Encounter [facility] [address] [place] [address] Social History Tobacco Use Types Packs/Day [...] on file 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 There will be no report generated by a [facility] Radiologist. Narrative [facility] - 07/02/2021 3:02 PM CDT EXAMINATION: Images For Reference Purposes Only us Linda Buckley MD PhD IMG MAMMO PROCEDURES Final Result [facility] documented in this encounter Visit Diagnoses Not on filedocumented in this encounter
--- OUTSIDE RECORDS SUMMARY | 2024-10-02 12:35 | XMS_ITS | Encounter Summary ---
Author Organization [facility] Healthcare Address [address] [place] [address] Care Team Providers Care Senior Professional Services Consultant Name Role Phone Unavailable Primary Care Provider Unavailabl e Reason for Visit * Diagnostic Imaging (Routine) - Closed Specialty Diagnoses / Procedures Referred By Tati campos Referred To Contact Procedures Breast Imaging Diagnostic Outside Reference Linda Buckley MD PhD Phone: tel: fax: Referral ID Status Reason Start Date Expiration Date Visits Re quested Visits Authorized [id number] Closed 07/02/2021 08/01/2022 1 1 Encounter Details Date Type Department Care Team (Late st Contact Info) Description 10/27/2016 Hospital Encounter [facility] [address] [place] [address] Social History Tobacco Use Types Packs/Day Years [...] on file 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 Narrative [facility] - 07/02/2021 3:00 PM CDT EXAMINATION: Images For Reference Purposes Only us Linda Buckley MD PhD IMG MAMMO PROCEDURES Final Result [facility] documented in this encounter Visit Diagnoses Not on filedocumented in this encounter
--- OUTSIDE RECORDS SUMMARY | 2024-10-02 12:35 | XMS_ITS ---
Author Organization [facility] [place] ([address]) Address [address] [place] [address] Care Team Providers Care Software Requirements Engineer Name Role Phone Boone Dunham Primary Care Provider Unavailab le María Elena Asher Unavailable [phone] Angela Garza Unavailable Unavailable [employer], Provider Unavailable Unavailab le [facility] Conversion Encounter Medications Medication SIG [...] ew and pick correct strength-formulati on [facility] options. If intended option is not shown, discontinue and re-order from Quick Search* Active Multivitamin - 1 tab(s) orally once a day Active Levocetirizine Dihydrochloride 5 MG 1 tab(s) orally once a day (in the evening) Active Encounters Encounter Location Date Provider Diagnosis [facility] Delar[facility] [place] [address] 10/01/2023 Provider Edward Hypertrophy of nasal turbinates [...] day (in the evening) Progress Notes * Asa HERMOSILLOaDOB:[birth year] (64 yo F)Acc No.[id number]:10/01/2023 Patient: Lisa TOLLIVER Provider: Leela Rea :1960 A ge:63 Y S ex:Female Date:10/01/2023 Address:[address] [place], [place] [address] Pcp:Boone Dunham Subjective: * Chief Complaints: * 1 . Multum To Medispan Conversion Encounter. * Medical History: * Medications: T aking Magnesium Carbonate , Notes to Pharmacist: *Please review and pick correct strength-formulation from Medispan options. If intended option is not shown, [...] at bedtime orally as directed Objective: * Vitals: Assessment: * Assessment: 1. H ypertrophy of nasal turbinates - J34.3 Plan: * Treatment: * Billing Information: * Visit Code: * Procedure Codes: * Electronic signature of Tomer Leon on 10/02/2024 at 12:35 PM CDT Sign off status: Pending * Provider: Leela casillas Migration Date: 0 10/01/2023 Generated for Ramón Arizmendi/Umangitting on: 0 10/02/2024 12:35 PM CDT
--- OUTSIDE RECORDS SUMMARY | 2024-10-02 12:35 | XMS_ITS ---
Author Organization [facility] Address [address] [facility] [place] [place] [address] Care Team Providers Care Refinery Operator Light Ends Recovery Name Role Phone Almita Smallwood MD Primary [...] malignancy. Assessment & Plan (02/25/2020 8:08 AM GRAPHIC MANAGER): I have explained to her that she [...] her pharmacy. She knows to contact her machine made shoe unit worker should she develop any vaginal bleeding. Will [...]
--- OUTSIDE RECORDS SUMMARY | 2024-10-02 12:35 | XMS_ITS | Encounter Summary ---
Author Organization [facility] Healthcare Address [address] [place] [address] Care Team Providers Care Advertising Sales Agent Name Role Phone Unavailable Primary Care Provider Unavailabl e Reason for Visit * Diagnostic Imaging (Routine) - Closed Specialty Diagnoses / Procedures Referred By Tati t Referred To Contact Procedures Breast Imaging Diagnostic Outside Reference Linda Buckley MD PhD Phone: tel: fax: Referral ID Status Reason Start Date Expiration Date Visits Re quested Visits Authorized [id number] Closed 07/02/2021 08/01/2022 1 1 Encounter Details Date Type Department Care Team (Late st Contact Info) Description 08/28/2015 12:05 AM CDT Hospital Encounter [facility] [address] [place] [phone] Social History Tobacco Use Types Packs/Day Years [...] on file 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 There will be no report generated by a [facility] Radiologist. Narrative [facility]MO[facility] - 07/02/2021 3:10 PM CDT EXAMINATION: Images For Reference Purposes Only us Linda Buckley MD PhD IMG MAMMO PROCEDURES Final Result [facility] documented in this encounter Visit Diagnoses Not on filedocumented in this encounter
--- OUTSIDE RECORDS SUMMARY | 2024-10-02 12:35 | XMS_ITS | Data Portability ---
Author Organization [facility] Address [address] [place] [address] Assessment Encounter Date Assessment Date Assessment LastModified by Organization Details LastModified Time 05/10/2024 05/10/2024 Annual gynecological exam performed. Patient will come back in a year unless there are new symptoms. Not available 05/09/2024 11:26:48 Plan of Treatment Reminders Order Date Submit Date Provider Last Modified By Organization Details Last Modified Time Details Appointments None recorded. Lab pap, IG + HR HPV - HPV regardless but if HPV is positive need subtyping 16,18/45 2024 025 [facility] (Lab), [address], [place], [address], 12:13:47 Referral None recorded. Procedures None recorded. Surgeries None recorded. Imaging None recorded. Medication Orders None recorded. Patient TargetsNo targets recorded. Patient InstructionsNo instructions recorded. Reason for Referral None Reported. Results Created Date Observation Date Name Description Value Unit Range Abnormal Flag Note LastModifiedBy Organization Detail LastModifiedTime 05/10/1905/10/2024 IMAGE GUIDE D PAP AND HPV REGAR DLESS image guided Pap, HPV regardless of Pap result SEE RESULT S BELOW CASE REPOR T: Cytol ogy Gynec ologi amy Repor t Case: [id number] Autho rineto g Provi manuela: Dermo german, Carine , ANP, INTERIOR DESIGN PROJECT MANAGER Colle cted: 05/10 1639 Order ing Locat ion: [place] Patho log[facility] Recei derrick: 05/11 0225 First Scree n: Rachel Carroll, CT Speci men: Tamra nicole Pap - Image d, Cervi x STATE MENT OF ADEQU ACY: Satis facto ry for evalu ation Trans forma tion zone compo nent canno t be defin itive ly ident ified due to the prese nce of atrop hy or other hormo nal trejo es ----- ----- ----- ----- ----- ----- ----- ----- ----- ----- ----- ----- ----- ----- ----- ----- ----- ---- FINAL DIAGN OSIS: Negat shawn for Intra epith elial Lesio n or Omayra ortiz (TYESHA) . Atrop hic cell jeb gutierrez. Elect lazaro kwon by LUKE Chapman on 2024 at 1107 SALES ENABLEMENT MANAGER ----- ----- ----- ----- ----- ----- ----- ----- ----- ----- ----- ----- ----- ----- ----- ----- ----- ---- HPV RESUL TS: HPV mRNA E6/E7 : No HPV mRNA Detec masha NOTE: This high risk HPV mRNA assay detec ts fourt een high- risk HPV types (16, 18, 31, 33, 35, 39, 45, 51, 52, 56, 58, 59, 66, 68) witho ut diffe renti ation . COMME NT: This speci men was revie wed by a Cytot echno logis t and/o r Patho logis t (as indic ated in this repor t) after evalu ation using the Thinp rep Imagi ng Syste m. CLINI AMY INFOR MATIO N: Menst rual Statu s: LMP (if appli cable ): Clini amy Histo ry/Pr eviou s Pap: Type of Neopl leon (if appli cable ): Signi fican t Clini amy Findi ngs: Other Histo ry: Hormo uzlly (if appli cable ): PAP EDUCA GRECIA L NOTE: The Pap Test is a scree corey test with an inher ent false negat shawn rate. Liqui d-bas ed sampl ing may decre ase, but will not elimi tomy, false negat shawn resul ts. A negat shawn resul t does not precl ude the prese nce and/o r devel opmen t of disea se, since the prese nce of abnor mal cells in the sampl e depen ds on the locat ion of the lesio n and sampl ing techn ique. Aicha nued regul ar scree corey is the best metho d of cance r preve ntion . If repor masha cytol ogic findi ng do not corre late with physi amy and/o r histo rical findi ngs, furth er inves tigat ion is recom ralf d, as clini miah marrero nted. Not Available [facility] (Lab) [address], [place], [address], 05/16/2024 12:13:47 Result Notes None recorded. Procedures Surgical History Date Name Laterality Status Provider Name and Address Organization Details Recorded Time 4 Most Recent Bone Density completed [facility] 05/10/2024 15:53:34 4 Date of Last Mammogram completed [facility] 05/10/2024 15:53:34 2 completed [facility] 05/10/2024 15:53:34 2 Date of Last Colonoscopy completed [facility] 05/10/2024 15:53:34 2 Date of Last Pap Smear completed [facility] 05/10/2024 15:53:34 8 biopsy of lymph node completed [facility] 05/10/2024 16:04:03 7 Breast Surgery completed [facility] 05/10/2024 16:03:43 7 Breast Biopsy completed [facility] 05/10/2024 16:03:31 Colonoscopy completed [facility] 05/10/2024 15:53:35 Imaging Results None recorded. Procedure Notes None recorded. Medical Equipment None Reported. Medications Name Sig Start Date Stop Date Status Note LastModified by Organization Details LastModified Time cyclobenzap rine 10 mg tablet TAKE 1 TABLET BY MOUTH TWICE DAILY NEEDED FOR MUSCLE SPASM active Not Available Not Available No t Available acetaminoph en 325 mg tablet 05/10 completed Not Available Not Available Not Available rizatriptan 10 mg tablet TAKE 1 TABLET BY MOUTH TWICE DAILY NEEDED FOR MIGRAINE HEADACHE active Not Available Not Available No t Available Deep Sea Nasal 0.65 % spray aerosol active Not Available Not Available Not Available amitriptyli ne 10 mg tablet TAKE 1 TABLET BY MOUTH AT BEDTIME FOR 7 DAYS THEN 2 ONCE DAILY AT BEDTIME DIRECTED active Not Available Not Available No t Available cephalexin 500 mg capsule TAKE 1 CAPSULE BY MOUTH EVERY 8 HOURS FOR 7 DAYS 05/10 completed Not Available Not Available Not Available montelukast 10 mg tablet active Not Available Not Available Not Available ibuprofen 600 mg tablet active Not Available Not Available Not Available albuterol sulfate HFA 90 mcg/actuati on aerosol inhaler INHALE 1 PUFF BY MOUTH EVERY 4 HOURS NEEDED FOR SHORTNESS OF BREATH AND FOR WHEEZING active Not Available Not Available No t Available amoxicillin 875 mg-potassiu m clavulanate 125 mg tablet 05/10 completed Not Available Not Available Not Available oxycodone 5 mg tablet 05/10 completed Not Available Not Available Not Available cyclobenzap rine 5 mg tablet TAKE 1 TABLET BY MOUTH THREE TIMES DAILY NEEDED FOR MUSCLE SPASM. DO NOT TAKE WHILE DRIVING MAY CAUSE DROWSINES S 05/10 completed Not Available Not Available Not Available montelukast 05/10 completed Not Available Not Available Not Available Vitals Date Recorded Body height Body mass index (BMI) Body weight Systolic blood pressure Diastolic blood pressure Provider Name and Address Organization Details Last Updated DateTime 05/10/2024 165.1 cm 26.2 kg/m2 90664.16 g 138 mm[Hg] 84 mm[Hg] Merry Campoverde [facility] 15:59:04 Social History Question Answer Notes LastModified by Organizat ion Details LastModified Time Do You Have An Advance Directive? No [email or web address] Information n ot available 05/10/2024 How Many Years Have You Consumed Alcohol? 40 Information not available 05/10/2024 Are You Blind Or Do You Have Difficulty Seeing? No [email or web address] Information not available 05/10/2024 What Is Your Level Of Caffeine Consumption? Heavy [email or web address] Information not available 05/10/2024 How Much Tobacco Do You Chew? None Information not available 05/10/2024 In The 14 Days Before Symptom Onset, Have You Had Close Contact With A Laboratory-confirme d COVID-19 While That Case Was Ill? No [email or web address] Information n ot available 05/10/2024 In The 14 Days Before Symptom Onset, Have You Had Close Contact With A Person Who Is Under Investigation For COVID-19 While That Person Was Ill? No [email or web address] Information not available 05/10/2024 Have You Been To An Area Known To Be High Risk For COVID-19? Yes [email or web address] Information not available 05/10/2024 Are You Deaf Or Do You Have Serious Difficulty Hearing? No [email or web address] Information not available 05/10/2024 What Type Of Diet Are You Following? REGULAR [email or web address] Information n ot available 05/10/2024 What Is The Highest Grade Or Level Of School You Have Completed Or The Highest Degree You Have Received? [id number] [email or web address] Information not available 05/10/2024 Are There Any Guns Present In Your Home? No Information not available 05/10/2024 Do You Use Protection During Sex? No [email or web address] Information not available 05/10/2024 Do You Use Your Seat Belt Or Car Seat Routinely? Yes [email or web address] Information not available 05/10/2024 Are You Sexually Active? No [email or web address] Information not available 05/10/2024 Do You Have Smoke And Carbon Monoxide Detectors In Your Home? Yes [email or web address] Information not available 05/10/2024 At What Age Did You Start Smoking Tobacco? 17 Information not available 05/10/2024 How Much Tobacco Do You Smoke? No [email or web address] Information not available 05/10/2024 Do You Use Sunscreen Routinely? No [email or web address] Information not available 05/10/2024 How Many Years Have You Smoked Tobacco? 30 [email or web address] Information not available 05/10/2024 Have You Used IV Drugs? No [email or web address] Information not available 05/10/2024 Do You Have Difficulty Walking Or Climbing Stairs? No [email or web address] Information not available 05/10/2024 Sex: Unknown Functional Status Question Answer Note LastModified by Organizat ion Details LastModified Time Do you use any illicit or recreational drugs? No [email or web address] Information not available 05/10/2024 What is your level of alcohol consumption? Occasional Information not available 05/10/2024 Are you currently employed? Yes [email or web address] Information not available 05/10/2024 Are you able to walk? YESWOREST Information not available 05/10/2024 Are you able to care for yourself? 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 No [email or web address] Information not available 05/10/2024 What is your exercise level? Moderate [email or web address] Information not available 05/10/2024 Mental Status Question Answer Note LastModified by Organization D etails LastModified Time Do you feel stressed (tense, restless, nervous, or anxious, or unable to sleep at night)? [id number] [email or web address] Information not available 05/10/2024 Family History Relationship Description Onset Age of this Age Resolved Age Notes LastModified by Organization Details LastModified Time Mother Malignant tumor of colon Not available 2024 15:53:34 Sister Malignant tumor of colon [email or web address] Not available 2024 15:53:34 Sister Malignant neoplasm of ovary 68 [email or web address] Not available 2024 16:15:52 Medical History Condition Response Breast Cancer Y Asthma Y Gynecological History Statement/Question Response Date of Last Mammogram 01/26/2024 N On BCP's at Conception? Y STIs/STDs N Was last menstrual period normal Y HPV Vaccine Y Duration of Flow (days) 7 Current Control Method Tubal Ligat ion Age at First Child 21 If Post Menopausal, Age at Menopause 55 Date of control 09/16/2001 Date of Last Colonoscopy 03/18/2022 Frequency of Cycle (Q days) 30 Most Recent Bone Density 02/17/2024 Sexually Active? N Condoms Age of first menstrual cycle 15 Date of Last Pap Smear 01/27/2022 Sexual Problems? N Desired Control Method None 03/18/2022 Y Obstetrics History GPAL:G 2 P 2 0 1 2 Type Value Full Term 2 Spontaneous 1 Living 2 Total 2 Past Encounters Encounter ID Performer Location Encounter Start Date Encounter Closed Date Diagnosis/Indication Diagnosis SNOMED-CT Code Diagnosis ICD10 Code Diagnosis Note [id number] Eyal Turner MD [place] [address] [address] 05/10/2024 15:50:00 05/10/2024 16:27:35 Gynecologic examination 95552851 Z01.419 Annual gynecologi amy exam performed. Patient will come back in a year unless there are new symptoms. Suggest Calcium with Vitamin D if not eating in diet. Patient advised to get annual flu shot. Recommend yearly physicals and perform monthly breast exams. Genetic testing is available for patients with family history of cancer. Engage in safe sexual practices, use condoms. Encouraged to have daily exercise. Avoid tobacco and illicit drugs, moderation of alcohol. If BMI greater than 25 dietary consult advised. If you have any questions please call or email. mammogram- UTD; followed by breast oncologist yearly; hx of breast cancer in 2017 colon cancer screening - UTD; q5yrs d/t FH of colon cancer DEXA scan- UTD PCP Pap smear- pap w/ HPV collected laboratory evaluation - PCP STI testing - declined History of malignant neoplasm of breast 523150892 Z85.3 Continue f/u with breast specialist and mammograms yearly.Pat ient advised to perform self-breas t exams and report any changes. Health Concerns Section Related Observation LastModified by Organization Detai ls LastModified Time None Recorded Concern Status LastModified by Organization Details LastModified Time None Recorded Advance Directives Directive N: Payers Insurance Date Sequence Insurance Name Policy Number Policy Kinney Covered Member ID Kinney Member ID Guarantor Name 05/10/2024 Josselin STER[place]ING [place] [id number] Sherman Hermos[place] [id number] Lisa Hermosillo Notes Date Note Type Note Provider Name and Address Organization Details Recorded Time 05/10/2024 text/html Annual Acid Cleaner Post-MenopausalRe ported bypatient.Menopau dolly Symptoms:no menopausal symptoms; normal vaginal lubrication Vaginal Bleeding:history of menopause having occurred; no history of post menopausal bleeding Urinary Symptoms:no hematuria; no incontinence; no nocturia; no urinary frequency Vulva:no genital lesion; no vulvar atrophy Vagina:normal vaginal discharge; no vaginal atrophy Breast:no breast lump; no nipple discharge; no breast pain Sexual Complaints:no sexual complaints Psychological Symptoms:no depression; no anxiety Preventive Measures:encourag e regular mammograms starting age 40; encourage self breast examination; encourage regular exercise; encourage no tobacco use New patient presents to establish care.Post-menopau dolly.Hx of stage 0 breast cancer in 2017 and subsequent lumpectomy; was on HRT at time of diagnosis; previously on tamoxifen. Sees breast oncologist yearly; UTD on mammogram. Had genetic testing - negative for hereditary cancer genes.No abnormal bleeding, no vaginal concerns, denies being sexually active. CARINE MENDOZA NP [address], [place], [address], [facility] 05/10/2024 16:25:34 OBGyn Episode Ob Episode Information Episode Created Date Number of Fetuses Patient Bloodtype Patient rh Status Prepregnancy Weight lbs Domestic Partner Domestic Partner Phone Father Name Director Of Front Office Status 05/10/19 25 1 CLOSED Fetus Data First Name Last Name Admitted to NICU Weight (g) Sex Living Outcome Pediatric Complications Fetus ID Race Codes Race Delivery Type 4025.62 9 M Full Term [id number] Vaginal Delivery Conor Calculation Initial Conor Date Initial Exam Date Initial Exam Provider Initial Ultrasound Date Last Menstrual Period Date Ultra Sound Weeks Gestation 0 Eighteen To Twenty Week Conor Update Ultra Sound Date Fundal Height At Umbil Quickening Date Ultra Sound Latest Weeks Gestation Final Conor Confirmed By Final Conor Confirmed Date Final Conor Date Ultra Sound Latest Days Gestation 0 0 Menstrual History Last Menstrual Date Menses Monthly On Bcp Conception Prior Menses Frequency Hcg Plus Date Menarche Onset Age Delivery Information Delivery Date Delivery Type Labor Anesthesia Weeks Gestation Incision Type Labor Labor Length Hrs Delivered By Post Complications Tubal Sterilization Discharge Date Comments 2 Discharge Information Feeding Method Contraceptive Method Maternal HG B and HCT Levels Ob Episode Information Episode Created Date Number of Fetuses Patient Bloodtype Patient rh Status Prepregnancy Weight lbs Domestic Partner Domestic Partner Phone Father Name Director Of Front Office Status 05/10/19 25 1 CLOSED Fetus Data First Name Last Name Admitted to NICU Weight (g) Sex Living Outcome Pediatric Complications Fetus ID Race Codes Race Delivery Type 3798.83 3 F Full Term [id number] Vaginal Delivery Conor Calculation Initial Conor Date Initial Exam Date Initial Exam Provider Initial Ultrasound Date Last Menstrual Period Date Ultra Sound Weeks Gestation 0 Eighteen To Twenty Week Conor Update Ultra Sound Date Fundal Height At Umbil Quickening Date Ultra Sound Latest Weeks Gestation Final Conor Confirmed By Final Conor Confirmed Date Final Conor Date Ultra Sound Latest Days Gestation 0 0 Menstrual History Last Menstrual Date Menses Monthly On Bcp Conception Prior Menses Frequency Hcg Plus Date Menarche Onset Age Delivery Information Delivery Date Delivery Type Labor Anesthesia Weeks Gestation Incision Type Labor Labor Length Hrs Delivered By Post Complications Tubal Sterilization Discharge Date Comments 4 Discharge Information Feeding Method Contraceptive Method Maternal HG B and HCT Levels
--- OUTSIDE RECORDS SUMMARY | 2024-10-02 12:35 | XMS_ITS | Clinical Summary ---
Author Organization [facility] Address [address] [place] [address] Care Team Providers Care Marketing Analytics Lead Name Role Phone Almita Smallwood MD [...] Active sodium chloride (OCEAN) 0.65 % Aerosol, [place] Administer 2 Sprays in each nostril every [...] malignancy. 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 She knows to contact her highway construction inspector should she develop any vaginal bleeding. Will [...] Provider, Abstract from Last 3 Months Immunizations Immunization Administration Dates Next Due (ADACEL/BOOSTRIX)(10 YR UP) TDAP VACCINE, 0.5ML, IM 03/14/2018 (Moderna Bivalent)(6 Mos Up) COVID-19 Vaccine - Emergency Use Authorization, MRNA(Pf) 50 Mcg/0.5 Ml Im Susp 02/03/2022 (PREVNAR 20)(6 WKS UP) PNEUM OCOCCAL CONJUGATE VACCINE 20-VALENT (PCV20), POLYSACCHARIDE [id number] CONJUGATE, ADJUVANT 0.5 ML (PF) IM 10/23/2021 [...] (#1) 2023 , 01/17/2020, 01/30/2018 COVID-19 Vaccine (5 - 2023-2 5 season) 2023 02/03/2022, 01/30/2021, 08/14/2020, Additional history exists Preventative Visit- Commercial 04/18/2024 0 10/15/2021, 04/29/2021, 04/16/2020, Additional history exists BREAST CANCER SCREENING 12/08/2024 12/09/19 24, 12/09/2023, 06/29/2022, Additional history exists DTAP/TDAP/TD VACCINES (2 - T d or Tdap) 03/14/2028 03/14/2018 ZOSTER VACCINE Completed 01/07/2022, 10/23/2021 Medical Devices Implanted Type Area Metal Furniture Repairer Device Identifier Shelf Expiration Date Model / Serial / Lot Plate Loc Fx Crv Shrt N-Cmprsn [id number] - Ssterilized Aug 30 2023 Implanted:Qty: 2 on 09/05/2023 by Juan Manuel Farnsworth MD at [facility] Plate N/A: Mandible MICK SNELL JOHNNY [id number] / STERILIZED AUG 30 2023 / LOAD 27 Description:Bilateral Plate-L Lp Rt Lng 0.6mm [id number] - Sload # 2 7 Sterilized August 30, 2023 Implanted:Qty: 1 on 09/05/2023 by Juan Manuel Farnsworth MD at [facility] Plate Right: Maxilla MICK SNELL JOHNNY [id number] / LOAD # 2 7 STERILIZED AUGUST 30, 2023 / Plate-L Lp Lt Lng .6mm [id number] - Sload # 2 7 Sterilized August 30, 2023 Implanted:Qty: 1 on 09/05/2023 by Juan Manuel Farnsworth MD at [facility] Plate Left: Maxilla MICK SNELL LP [id number] / LOAD # 2 7 STERILIZED AUGUST 30, 2023 / Mini 100 Degree L Plate Right Implanted:Qty: 1 on 09/05/2023 by Juan Manuel Farnsworth MD at [facility] Plate Right: Maxilla MICK SNELL LP [id number] / / Mini 100 Degree L Plate Left Implanted:Qty: 1 on 09/05/2023 by Juan Manuel Farnsworth MD at [facility] Plate Left: Maxilla MICK SNELL LP [id number] / / Description:MICK AGUEROI SITION# [id number] Screw Lvl 1 Cmf 2.0x7mm Crossdrive Tlts [id number] - Ssterilized Aug 30 2023 Implanted:Qty: 8 on 09/05/2023 by Juan Manuel Farnsworth MD at [facility] Screw N/A: Mandible MICK SNELL LP [id number] / STERILIZED AUG 30 2023 / LOAD 27 Description:Bilateral Screw Sd Maxdr 2.0x7mm [id number] - Sload # 2 7 Sterilized August 30, 2023 Implanted:Qty: 18 on 09/05/2023 by Juan Manuel Farnsworth MD at [facility] Screw N/A: Maxilla MICK SNELL LP [id number] / LOAD # 2 7 STERILIZED AUGUST 30, 2023 / Description:Bilateral Screw Er Mxdrv 2.3x7mm [id number] - Sload # 2 7 Sterilized August 30, 2023 Implanted:Qty: 2 on 09/05/2023 by Juan Manuel Farnsworth MD at [facility] Screw Right: Maxilla MICK SNELL LP [id number] / LOAD # 2 7 STERILIZED AUGUST 30, 2023 / Explanted Type Area Metal Furniture Repairer Device Identifier Shelf Expiration Date Model / Serial / Lot Screw Er Mxdrv 2.3x7mm [id number] - Sload # 2 7 Sterilized August 30, 2023 Explanted:Qty: 1 on 09/05/2023 by Juan Manuel Farnsworth MD at [facility] Screw N/A: Maxilla MICK SNELL LP [id number] / LOAD # 2 7 STERILIZED AUGUST 30, 2023 / Screw Sd Maxdr 2.0x5mm [id number] - Sload # 2 7 Sterilized August 30, 2023 Explanted:Qty: 3 on 09/05/2023 by Juan Manuel Farnsworth MD at [facility] Screw N/A: Face MICK SNELL LP [id number] / LOAD # 2 7 STERILIZED AUGUST 30, 2023 / Procedures Procedure Name Priority Date/Time Associated Diagnosis Comments MAMMO 3D RUTH SCREEN BILAT W OR WO CAD Routine 02/21/2020 1:07 PM ALUM PLANT SUPERVISOR Encounter for screening mammogram for malignant neoplasm of breast History of ductal carcinoma in situ (DCIS) of breast from Last 3 Months or Most Recently Relevant to Health Maintenance Results * MAMMO SCRN BILAT 3D RUTH W OR WO CAD (02/21/2020 1:07 PM ALUM PLANT SUPERVISOR) Anatomical Region Laterality Modality Breast Bilateral Mammography 02/21/2020 1:07 PM ALUM PLANT SUPERVISOR Addenda Addendum by Fiorella Hancock MD on 03/05/2020 7:28 AM ALUM PLANT SUPERVISOR Comparison is now made with previous films from [facility] [place] dated 09/21/2016. There are post biopsy changes on the right. There are postlumpectomy changes in the upper outer left breast. There are no other significant interval changes. Recommend annual follow-up. OVERALL FINAL ASSESSMENT: BI-RADS CATEGORY 1: Negative. Impressions 02/21/2020 5:08 PM ALUM PLANT SUPERVISOR IMPRESSION: [facility] will request the patient's previous outside studies in order to assess for stability. An addendum will be provided after reviewing the outside exams. DICTATION LOCATION: [facility] Narrative 02/21/2020 5:08 PM ALUM PLANT SUPERVISOR BILATERAL FULL-FIELD DIGITAL SCREENING MAMMOGRAM WITH [...] Incomplete, needs comparison to prior mammograms. IMPRESSION: [facility] will request the patient's previous outside studies in order to assess for stability. An addendum will be provided after reviewing the outside exams. DICTATION LOCATION: [facility] Almita Smallwood MD MAMMO ORDERABLES Edited Result - Final from Last 3 Months or Most Recently Relevant to Health Maintenance Insurance [facility] BLUE ACCESS CHOICE [facility] Advance Directives For more information, please contact: [phone] * Full Code (Latest Code Status on File) Date Activated Date Inactivated Comments 09/05/2023 10:26 PM 09/07/2023 3:21 PM * Full Code Date Activated Date Inactivated Comments 09/05/2023 12:06 PM 09/05/2023 10:26 PM Care Teams Marketing Analytics Lead Relationship Specialty Start Date End Date Almita Smallwood MD [address] [place] [address] PCP - General Internal Medicine 03/14/18
--- OUTSIDE RECORDS SUMMARY | 2024-10-02 12:35 | XMS_ITS | Encounter Summary ---
Author Organization [facility] Healthcare Address [address] [place] [address] Care Team Providers Care Railroad Construction Director Name Role Phone Unavailable Primary Care Provider Unavailabl e Reason for Visit * Diagnostic Imaging (Routine) - Closed Specialty Diagnoses / Procedures Referred By Tati campos Referred To Contact Procedures Breast Imaging Diagnostic Outside Reference Linda Buckley MD PhD Phone: tel: fax: Referral ID Status Reason Start Date Expiration Date Visits Re quested Visits Authorized [id number] Closed 07/02/2021 08/01/2022 1 1 Encounter Details Date Type Department Care Team (Late st Contact Info) Description 10/05/2016 Hospital Encounter [facility] [address] [place] [address] Social History Tobacco Use Types Packs/Day Years [...] on file Legal Sex Female 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 There will be no report generated by a [facility] Radiologist. Narrative [facility] - 07/02/2021 3:02 PM CDT EXAMINATION: Images For Reference Purposes Only us Linda Buckley MD PhD IMG MAMMO PROCEDURES Final Result [facility] documented in this encounter Visit Diagnoses Not on filedocumented in this encounter
--- OUTSIDE RECORDS SUMMARY | 2024-10-02 12:36 | XMS_ITS | Encounter Summary ---
Author Organization [facility] Healthcare Address [address] [place] [address] Care Team Providers Care Cover Stripper Name Role Phone Unavailable Primary Care Provider Unavailabl e Reason for Visit * Diagnostic Imaging (Routine) - Closed Specialty Diagnoses / Procedures Referred By Tati campos Referred To Contact Procedures Breast Imaging Screening Outside Reference Linda Buckley MD PhD Phone: tel: fax: Referral ID Status Reason Start Date Expiration Date Visits Re quested Visits Authorized [id number] Closed 07/02/2021 08/01/2022 1 1 Encounter Details Date Type Department Care Team (Late st Contact Info) Description 08/28/2015 Hospital Encounter [facility]iology [facility] [address] [place], [place] [id number] Social History Tobacco Use Types Packs/Day Years [...] on file 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 Narrative [facility] - 07/02/2021 3:02 PM CDT EXAMINATION: Images For Reference Purposes Only us Linda Buckley MD PhD IMG MAMMO PROCEDURES Final Result [facility] documented in this encounter Visit Diagnoses Not on filedocumented in this encounter
--- OUTSIDE RECORDS SUMMARY | 2024-10-02 12:36 | XMS_ITS | Encounter Summary ---
Author Organization [facility] Healthcare Address [address] [place] [address] Care Team Providers Care Cardiovascular Disease Specialist Name Role Phone Unavailable Primary Care Provider Unavailabl e Reason for Visit * Diagnostic Imaging (Routine) - Closed Specialty Diagnoses / Procedures Referred By Tati t Referred To Contact Procedures Breast Imaging Diagnostic Outside Reference Linda Buckley MD PhD Phone: tel: fax: Referral ID Status Reason Start Date Expiration Date Visits Re quested Visits Authorized [id number] Closed 07/02/2021 08/01/2022 1 1 Encounter Details Date Type Department Care Team (Late st Contact Info) Description 10/27/2016 12:05 AM CDT Hospital Encounter [facility] Radiology [facility] [address] [place] [id number] Social History Tobacco Use Types Packs/Day Years [...] on file 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 There will be no report generated by a [facility] Radiologist. Narrative [facility] - 07/02/2021 3:01 PM CDT EXAMINATION: Images For Reference Purposes Only us Linda Buckley MD PhD IMG MAMMO PROCEDURES Final Result [facility] documented in this encounter Visit Diagnoses Not on filedocumented in this encounter
--- OUTSIDE RECORDS SUMMARY | 2024-10-02 12:36 | XMS_ITS | Encounter Summary ---
Author Organization [facility] Healthcare Address [address] [place] [address] Care Team Providers Care Four Slide Machine Setter Name Role Phone Unavailable Primary Care Provider Unavailabl e Reason for Visit * Diagnostic Imaging (Routine) - Closed Specialty Diagnoses / Procedures Referred By Tati campos Referred To Contact Procedures Breast Imaging Diagnostic Outside Reference Linda Buckley MD PhD Phone: tel: fax: Referral ID Status Reason Start Date Expiration Date Visits Re quested Visits Authorized [id number] Closed 07/02/2021 08/01/2022 1 1 Encounter Details Date Type Department Care Team (Late st Contact Info) Description 11/22/2016 Hospital Encounter [facility] Radiology [facility] [address] [place] [id number] Social History Tobacco Use Types Packs/Day [...] on file 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 Narrative [facility] - 07/02/2021 3:01 PM CDT EXAMINATION: Images For Reference Purposes Only us Linda Buckley MD PhD IMG MAMMO PROCEDURES Final Result [facility] documented in this encounter Visit Diagnoses Not on filedocumented in this encounter
[2024-10-03 06:42] LABS: Protein, Total 7.1 g/dL (6.1-8.1)
[2024-10-03 16:24] LABS: ANA Cascade Screen POSITIVE (NEGATIVE); Chromatin (Nucleosomal) Ab <1.0 NEG AI (<1.0 NEG); Chromatin Antibody Charge YES; DNA (ds) Antibody Charge YES; JO1 Antibody Charge YES; Jo-1 Antibody <1.0 NEG AI (<1.0 NEG); RNP Antibody <1.0 NEG AI (<1.0 NEG); RNP Antibody Charge YES; SCL70 Antibody Charge YES; SSA Antibody Charge YES; SSB Antibody Charge YES; Sjogren's Antibody (SS-B) <1.0 NEG AI (<1.0 NEG); Sm Antibody <1.0 NEG AI (<1.0 NEG); Sm Antibody Charge YES; Sm/RNP Antibody <1.0 NEG AI (<1.0 NEG); Sm/RNP Antibody Charge YES
[2024-10-04 04:24] LABS: Creatinine, Random Urine 18 mg/dL (20-275); Total Prot/Creat ratio mg/mg NOTE (0.024-0.184); Total Protein/Creatinine Ratio NOTE mg/g creat (24-184)
[2024-10-04 20:14] LABS: Albumin 4.2 g/dL (3.8-4.8); Alpha 1 Globulin 0.3 g/dL (0.2-0.3); Alpha 2 Globulin 0.7 g/dL (0.5-0.9); Beta 1 Globulin 0.5 g/dL (0.4-0.6); Gamma Globulin 1.1 g/dL (0.8-1.7)
== END 2024-10-02 11:34 | disposition home or self-care (01) ==
LOC: ANHGOSHLAB 11:34
PROVIDERS: PCP Clinical Nurse Specialist; Visit Provider Clinical Nurse Specialist
DX: R94.4 Abnormal results of kidney function studies (principal); F41.9 Anxiety disorder, unspecified; K59.09 Other constipation; D64.9 Anemia, unspecified; R51.9 Headache, unspecified; G89.29 Other chronic pain; R06.02 Shortness of breath; Z13.220 Encounter for screening for lipoid disorders; R42 Dizziness and giddiness; E55.9 Vitamin D deficiency, unspecified; R41.3 Other amnesia
CPT/HCPCS: 36415; 82570; 84155; 84156; 84165; 84166; 86038; 86225; 86235; 86364

== ENCOUNTER 2024-10-10 08:54 | Outpatient (CLI) | payer BC, SELFPAY ==
--- NOTE | ~2024-10-10 | CT_ITS ---
EXAM: CT brain wo con - 10/10/2024 8:55 CDT History: 64 years old Female with Dizziness, random memory loss x 1-2 months COMPARISON: 08/10/2024 PROCEDURE: CT of the head without contrast. Axial, sagittal and coronal reformatted planes were claudia luated. Automatic exposure control was used for this study. FINDINGS: BRAIN PARENCHYMA: No acute hemorrhage. No mass effect or herniation. Nguyen-white matter differentiatio n is maintained. Mild chronic volume loss. Scattered hypodensities in subcortical and periventricular white matter, likely representing chronic microvascular ischemic changes in this age group. Atherosc lerotic calcification of the intracranial vessels is noted. VENTRICLES/ EXTRA-AXIAL SPACES: No hydrocephalus or extra-axial fluid collection. EXTRACRANIAL STRUCTURES: No calvarial fracture. IMPRESSION: No evidence for acute intracranial hemorrhage or calvarial fracture. Reviewed, dictated and finalized at location A.
== END 2024-10-10 08:55 | disposition home or self-care (01) ==
LOC: GOSHIMG 08:55
PROVIDERS: PCP Clinical Nurse Specialist; Visit Provider Clinical Nurse Specialist
DX: R51.9 Headache, unspecified (principal); G89.29 Other chronic pain; R41.3 Other amnesia
CPT/HCPCS: 70450

== ENCOUNTER 2025-02-08 10:16 | Outpatient (CLI) | payer BC, OTHER, SELFPAY ==
--- NOTE | ~2025-02-08 | MR_ITS ---
EXAMINATION: MR lumbar spine wo con DATE: 02/08/2025 10:44 INDICATION: Radiculopathy, lumbar region. TECHNIQUE: Magnetic resonance imaging (MRI) of the lumbar spine was performed without intravenous contrast. Sequences included sagittal T2-weighted FSE, sagittal T2-weighted FS FSE, sagittal T1-weighted FSE, and axial T2-weighted FSE. COMPARISON: None FINDINGS: Alignment is normal. There is a chronic compression fracture of L5. There is mildly decreased disc height at L3-L4. The distal spinal cord signal intensity is normal. The conus medullaris is at L1-L2. The following disc levels are specifically discussed: L1-L2: The disc is bulging. There is mild bilateral facet joint osteoarthritis. There is mild bilateral neural foraminal stenosis. There is mild central canal stenosis. L2-L3: The disc is bulging. There is mild bilateral facet joint osteoarthritis. There is mild bilateral neural foraminal stenosis. There is mild central canal stenosis. L3-L4: The disc is bulging. There is moderate right and mild left facet joint osteoarthritis. There is mild bilateral neural foraminal stenosis. There is mild central canal stenosis. L4-L5: The disc is bulging. There is severe bilateral facet joint osteoarthritis. There is mild bilateral neural foraminal stenosis. There is mild central canal stenosis. L5-S1: The disc is bulging. There is severe bilateral facet joint osteoarthritis. There is mild left neural foraminal stenosis. There is mild central canal stenosis. IMPRESSION: 1. Mild lumbar spondylosis. Reviewed, dictated and finalized at location E. IMPRESSION: 1. Mild lumbar spondylosis.
== END 2025-02-08 10:17 | disposition home or self-care (01) ==
LOC: MICIMG 10:18
PROVIDERS: PCP Clinical Nurse Specialist; Visit Provider Nurse Practitioner Adult Health
DX: M47.816 Spondylosis without myelopathy or radiculopathy, lumbar region (principal); M54.16 Radiculopathy, lumbar region; M48.061 Spinal stenosis, lumbar region without neurogenic claudication
CPT/HCPCS: 72148

== ENCOUNTER 2025-02-11 14:47 | Outpatient (CLI) | payer BC, OTHER, SELFPAY ==
--- NOTE | ~2025-02-11 | XR_ITS ---
EXAMINATION: XR sacrum coccyx min 2V, 02/11/2025 15:05 CDT HISTORY: Dorsalgia, pain for several years, no inj, no surg COMPARISON: No comparisons available. Findings: No acute fracture or malalignment. No significant degenerative changes. Soft tissues unremarkable. Impression: No acute fracture or malalignment. Reviewed, dictated and finalized at location P. Impression: No acute fracture or malalignment.
== END 2025-02-11 14:48 | disposition home or self-care (01) ==
LOC: GOSHIMG 14:47
PROVIDERS: PCP Nurse Practitioner Adult Health; Visit Provider Nurse Practitioner Adult Health
DX: M54.9 Dorsalgia, unspecified (principal); M46.1 Sacroiliitis, not elsewhere classified
CPT/HCPCS: 72220

== ENCOUNTER 2025-03-04 02:30 | Day surgery (SDC) | payer BC, OTHER, SELFPAY ==
[2025-02-25 11:50] VITALS: BMI 23.8
--- NOTE | 2025-02-25 11:56 | SUR.PREOP ---
[facility] has started construction of its new state of the art ER which will open Spring 2026. With this, we anticipate parking may be a challenge for some our surgical patients and families. Parking spaces are limited but are available for all Surgical, obstetrics, and ER patients sharing this lot. If you arrive and find you are having a hard time finding a parking space, please note that we understand the challenges, please drive around the hospital and park near Hospital Entrance 1. When you enter this entrance, you can ask a volunteer to direct or take you back to the surgical waiting area to check in. We appreciate everyone?s understanding of these expected challenges while we build for your future. Report to the Outpatient Waiting Room, entrance under the green pavilion located off [address], at time _315PM__ on date _03/04/25_. Planned Procedure Time: __415PM .? Time changes happen often and if your time is changed the preop area will call you the afternoon before. - You and your visitor will be asked to self-screen and do not enter if you have any COVID symptoms. Please call surgeon if you need to reschedule. - A mask is optional within the hospital at this time. Patients may have a light lunch however no food/drink 2hrs prior to surgery. Take only the following medications with a SIP of water on the morning of surgery: _all normally prescribed medication DO NOT STOP ANY OF YOUR OTHER PRESCRIPTION MEDICATIONS PRIOR TO SURGERY Hold all vitamins and supplements for 3 days per anesthesiologist. Medications to discontinue per physician _n/a_ Date to take last dose_n/a_ Please no make-up, nail welsh, hairspray, perfume, deodorant, or body powder the day of surgery.? No jewelry (including any body piercings) or valuables the day of surgery, leave them at home.? Please take a shower or bath the night before, or the morning of, surgery with an antibacterial soap.? Wear comfortable, loose fitting clothing.? - Jewelry must be removed prior to entering the operating room.? Rings and piercings that are not removed may be cut off. - The hospital will not accept responsibility for valuables.? - Please leave all valuables, including medications, at home the day of surgery. If you are going home after surgery, a licensed recycler forklift driver truck driver must drive you home.? - NO public transportation without another adult if you receive anesthesia. - We recommend that an adult stay with you for 24 hours following discharge. - We also recommend that you do not drive, make important decision, drink alcoholic beverages, or take any drugs that were not prescribed by your health care provider for at least 24 hours after your discharge time. Follow any additional instructions given to you from your surgeon. Telephone instructions given to _Mena_and asked if any additional questions and then verbalized understanding. Patient advised to call surgeon office or pre surgery nurse liaison [phone] if any additional questions.
--- NOTE | ~2025-03-04 | XR_ITS ---
EXAM/PROCEDURE: XR fluoroscopy no charge HISTORY: LUMBAR STEROID INJECTION COMPARISON: None available. TECHNIQUE: Fluoroscopic guided pain management images Fluoroscopy time: 30.3 seconds DAP: 4.0732 Nguyen per square centimeter IMPRESSION: Fluoroscopic guidance for pain management. No radiologist present for this procedure. See procedure/operative notes for complete evaluation. Reviewed, dictated and finalized at location A. FASTENER IMPRESSION: Fluoroscopic guidance for pain management. No radiologist present for this proc edure. See procedure/operative notes for complete evaluation.
--- NOTE | 2025-03-04 11:59 | WPDHPUPDATE1 ---
History and Physical Update Update Date/Time: 03/04/25 11:59 Patient is scheduled for a right-sided L4-5, L5-S1 transforaminal epidural steroid injection under fluoroscopic guidance with contrast control. History and Physical has been reviewed, including an updated exam of the patient. There are NO changes in the patient's condition. Risks, benefits, and alternatives have been discussed and questions answered. Patient agrees to proceed with procedure.
--- NOTE | 2025-03-04 12:00 | W.PM.PROC2 ---
Procedure Note - Detailed Date of Procedure 03/04/25 Pre-op Diagnosis lumbar radiculopathy and stenosis Post-op Diagnosis Same Procedure Performed Right Lumbar Transforaminal Epidural Steroid Injection under Fluoroscopic Guidance and with Contrast Control at L4-5, L5-S1. Surgeon Luis Enrique Gooden MD Anesthesia Local Description of Procedure INFORMED CONSENT: Risks, benefits and alternatives to the procedure were discussed in detail with the patient who expressed explicit understanding and consent to proceed. Patient was informed verbally and in written form regarding the risks associated with the procedure including the low risk of serious infection, bleeding/bruising, allergic reaction, nerve or organ injury, paralysis, procedural site pain or discomfort, worsening pain and/or mobility, failure to treat and/or disfigurement. The patient expressed explicit understanding and consent to proceed. All materials required for the procedure were available prior to procedure start. Site and side was marked prior to procedure and confirmed in the presence of the patient. PROCEDURE IN DETAIL: The patient was brought to the procedural suite and placed in the prone position. Patient was made comfortable with use of pillows under the head/chest, hips and ankles. Skin overlying the injection site was prepared broadly with ChloraPrep applicator and draped in a sterile manner. Aseptic technique was employed throughout. The endplates of the vertebral body at the site of interest were aligned in the AP view. Ipsilateral oblique angulation was utilized to better visualize the neuroforamen of interest. Local anesthesia was established by infiltration with approximately 5 mL of 0.5% PF lidocaine via a 1-1/2 inch 27-gauge needle. A 22-gauge 5.0 inch Donny (pencil point) spinal needle was advanced until the needle approached the 6 o'clock position on the pedicle just superior to the exiting nerve root. on the right at L4-5. Lateral view was utilized to confirm appropriate position of the needle tip within the superior and posterior portion of the respective foramen. In an AP view, 1 mL of Omnipaque 300 contrast medium was injected after negative aspiration for CSF, blood or other bodily fluid, showing appropriate neurogram without evidence of intravascular or intrathecal spread of contrast. Digital subtraction imaging was used with an additional 1ml of the same contrast medium to confirm absence of intravascular contrast spread. A 1mL solution containing 5 mg of dexamethasone was injected after negative repeat aspiration. Appropriate spread of the injectate was confirmed with washout of previously injected contrast. No parasthesias were elicited. Needle was removed completely intact without difficulty. The same exact procedure was repeated for all remaining levels on the ipsilateral side, right L5-S1 neuroforamen, modified as necessary to accommodate for the new target location with identical findings and results and no evidence of complication. Images were saved and documented in the patient chart. Patient's skin was cleaned and sterile bandage applied. The patient tolerated the procedure well. The patient was transported to the recovery area in stable condition where they were observed for an appropriate amount of time prior to discharge, without evidence of complication. The patient was instructed to avoid excessive activity for the next 48 hours, including climbing and frequent use of stairs. Showers only for 48 hours. They were instructed not to drive or operate heavy machinery for 24 hours. They are to monitor for severe headaches, fevers, chills, night sweats, erythema/swelling at the site or any other signs of infection, bleeding/bruising, bowel or bladder changes as well as new pain, weakness or numbness in the upper or lower extremity. Should they notice these changes, they are instructed to call our office immediately or report directly to the nearest Emergency Department if no answer or if after posted office hours. COMPLICATIONS: None COMMENTS: None CONTRAST WASTED: 26 mL Omnipaque 300. STEROID WASTED: 0 mg of dexamethasone. Complications No immediate complications Condition Stable Disposition Same day [facility] Billing Surgery - Charge Forward: Surgery Billing
[2025-03-04 13:37] VITALS: BP 106/68; PULSE 69; TEMP 36.2; O2SAT 100; BMI 24.3
[2025-03-04 13:50] VITALS: BP 137/84; PULSE 67; RESP 16; O2SAT 99
[2025-03-04] MEDS: LIDOCAINE 2% PF LOCAL INJ 5 ML VIAL 1 ML INFILTRATE (13:54)
[2025-03-04] MEDS: DEXAMETHASONE SODIUM PHOSP/PF 10 MG/ML 1 ML VIAL I-LAMINAR (13:55)
[2025-03-04 13:56] VITALS: BP 124/73; PULSE 69; RESP 16; O2SAT 99
[2025-03-04 14:00] VITALS: BP 139/58; PULSE 70; RESP 16; O2SAT 99
== END 2025-03-04 14:25 | disposition home or self-care (01) ==
PROVIDERS: PCP Clinical Nurse Specialist; Visit Provider Anesthesiology Pain Medicine
PROC: (CPT 64483; principal; 2025-03-04 14:15)
DX: M54.16 Radiculopathy, lumbar region (principal); M48.061 Spinal stenosis, lumbar region without neurogenic claudication; M46.1 Sacroiliitis, not elsewhere classified; Z87.891 Personal history of nicotine dependence
CPT/HCPCS: 64483; 64484; 99199; J2003; Q9965

== ENCOUNTER 2025-04-02 02:04 | Day surgery (SDC) | payer BC, OTHER, SELFPAY ==
[2025-04-01 08:26] VITALS: BMI 23.4
--- NOTE | 2025-04-01 08:36 | PC.NURSE ---
[facility] has started construction of its new state of the art ER which will open Spring 2026. With this, we anticipate parking may be a challenge for some our surgical patients and families. Parking spaces are limited but are available for all Surgical, obstetrics, and ER patients sharing this lot. If you arrive and find you are having a hard time finding a parking space, please note that we understand the challenges, please drive around the hospital and park near Hospital Entrance 1. When you enter this entrance, you can ask a volunteer to direct or take you back to the surgical waiting area to check in. We appreciate everyone?s understanding of these expected challenges while we build for your future. Report to the Outpatient Waiting Room, entrance under the green pavilion located off [address], at time __0930am on date __04/02/25 . Planned Procedure Time: __10:30am .? Time changes happen often and if your time is changed the preop area will call you the afternoon before. - You and your visitor will be asked to self-screen and do not enter if you have any COVID symptoms. Please call surgeon if you need to reschedule. - A mask is optional within the hospital at this time. Patients may have light breakfast and liquids till 0830am and take am meds No smoking, or chewing tobacco (or any form of nicotine). No chewing gum, candy or mints am of surgery . Take only the following medications with a SIP of water on the morning of surgery: AM meds ok to take DO NOT STOP ANY OF YOUR OTHER PRESCRIPTION MEDICATIONS PRIOR TO SURGERY EXCEPT THE FOLLOWING Hold all vitamins and supplements for 3 days per anesthesiologist. Medications to discontinue per physician NONE Date to take last dose NONE Please no make-up, nail cook islander, hairspray, perfume, deodorant, or body powder the day of surgery.? No jewelry (including any body piercings) or valuables the day of surgery, leave them at home.? Please take a shower or bath the night before, or the morning of, surgery with an antibacterial soap.? Wear comfortable, loose fitting clothing.? - Jewelry must be removed prior to entering the operating room.? Rings and piercings that are not removed may be cut off. - The hospital will not accept responsibility for valuables.? - Please leave all valuables, including medications, at home the day of surgery. If you are going home after surgery, a licensed catering truck driver must drive you home.? - NO public transportation without another adult if you receive anesthesia. - We recommend that an adult stay with you for 24 hours following discharge. - We also recommend that you do not drive, make important decision, drink alcoholic beverages, or take any drugs that were not prescribed by your health care provider for at least 24 hours after your discharge time. NO driving for [address] ZAMBRANO. Follow any additional instructions given to you from your surgeon. Telephone instructions given to __Patient and asked if any additional questions and then verbalized understanding. Patient advised to call surgeon office or pre surgery nurse liaison [phone] if any additional questions.
--- NOTE | ~2025-04-02 | XR_ITS ---
EXAM/PROCEDURE: XR fluoroscopy no charge HISTORY: INTRA ARTICULAR STEROID INJECTION TYE SIJ COMPARISON: None available. TECHNIQUE: Fluoroscopic images for pain service. Fluoroscopy time: 45.7 seconds DAP: [phone] Nguyen per square centimeter IMPRESSION: Fluoroscopically assisted procedure. No radiologist present. See operative/procedure notes for complete evaluation. Reviewed, dictated and finalized at location A. Y ENGINEER IMPRESSION: Fluoroscopically assisted procedure. No radiologist present. See operative/proc edure notes for complete evaluation.
--- NOTE | 2025-04-02 09:41 | P.OP_ITS ---
Procedure Note - Detailed Date of Procedure 04/02/25 Pre-op Diagnosis sacroiliitis Post-op Diagnosis Same Procedure Performed Bilateral Sacroiliac Joint Steroid Injection under Fluoroscopic Guidance and with Contrast Control. Surgeon Luis Enrique Gooden MD Business Systems Administrator None Anesthesia Local Description of Procedure INFORMED CONSENT: Risks, benefits and alternatives to the procedure were discussed in detail with the patient who expressed explicit understanding and consent to proceed. Patient was informed verbally and in written form regarding the risks associated with the procedure including the low risk of serious infection, bleeding/bruising, allergic reaction, nerve or organ injury, paralysis, procedural site pain or discomfort, worsening pain and/or mobility, failure to treat and/or disfigurement. The patient expressed explicit understanding and consent to proceed. All materials required for the procedure were available prior to procedure start. Site and side were marked prior to procedure and confirmed in the presence of the patient. PROCEDURE IN DETAIL: The patient was brought to the procedural suite and placed in the prone position. Patient was made comfortable with use of pillows under the head/chest, hips and ankles. Skin overlying the injection site on the affected side(s) was prepared broadly with ChloraPrep applicator and draped in a sterile manner. Aseptic technique was used throughout. The right SI joint was identified in the AP view and contralateral oblique angulation with caudal tilt was utilized to optimize visualization of the inferior and medial joint line representing the posterior portion of the joint. Local anesthesia was established by infiltration with approximately 5 mL of 2% lidocaine via a 1-1/2 inch 27-gauge needle. A 22-gauge 3.5 inch Quincke spinal needle was advanced until the needle entered the inferior third of the joint space approximately 1cm cephalad from its most inferior point. In the AP view, 0.5 mL of Omnipaque 300 contrast medium was injected after negative aspiration for CSF, blood or other bodily fluid, showing appropriate intra-articular spread of contrast without evidence of intravascular, perineural or intrathecal placement. A 1.5 mL solution containing 5 mg of dexamethasone in 0.5% PF bupivacaine was injected after repeat negative aspiration. Appropriate spread of the injectate was confirmed with washout of previous injected contrast. No parasthesias were elicited. Needle was removed completely intact without difficulty. The same exact procedure was repeated for all remaining levels on the contralateral side, left SI joint, modified as necessary to accommodate for the new target location with identical findings/results and no evidence of complication. Images were saved and documented in the patient chart. Patient's skin was cleansed and sterile bandage applied. The patient tolerated the procedure well. The patient was transported to the recovery area in stable condition where they were observed for an appropriate amount of time prior to discharge, without evidence of complication. The patient was instructed to avoid excessive activity for the next 48 hours, including climbing and frequent use of stairs. Showers only for 48 hours. They were instructed not to drive or operate heavy machinery for 24 hours. They are to monitor for severe headaches, fevers, chills, night sweats, erythema/swelling at the site or any other signs of infection, bleeding/bruising, bowel or bladder changes as well as new pain, weakness or numbness in the upper or lower extremity. Should they notice these changes, they are instructed to call our office immediately or report directly to the nearest Emergency Department if no answer or if after posted office hours. COMPLICATIONS: None COMMENTS: None CONTRAST WASTED: 29mL Omnipaque 300. Complications No immediate complications Condition Stable Disposition Same day [facility] Billing Surgery - Charge Forward: Surgery Billing
--- NOTE | 2025-04-02 09:41 | WPDHPUPDATE1 ---
History and Physical Update Update Date/Time: 04/02/25 09:41 History and Physical has been reviewed, including an updated exam of the patient. There are NO changes in the patient's condition. Risks, benefits, and alternatives have been discussed and questions answered. Patient agrees to proceed with procedure.
[2025-04-02 10:00] VITALS: BP 138/69; PULSE 73; RESP 16; TEMP 36.7; O2SAT 98
[2025-04-02 10:20] VITALS: BP 158/74; PULSE 69; RESP 16; O2SAT 99
[2025-04-02] MEDS: dexAMETHasone SOD PHOS INJ 10 MG/ML 1 ML VIAL IM (10:23)
[2025-04-02] MEDS: BUPivacaine HCL 0.5% 10 ML AMP INFILTRATE (10:24)
[2025-04-02 10:25] VITALS: BP 111/55; PULSE 59; RESP 16; O2SAT 99
[2025-04-02 10:32] VITALS: BP 122/71; PULSE 60; RESP 16; O2SAT 98
== END 2025-04-02 10:46 | disposition home or self-care (01) ==
PROVIDERS: PCP Clinical Nurse Specialist; Visit Provider Anesthesiology Pain Medicine
PROC: (CPT 27096; principal; 2025-04-02 10:30)
DX: M46.1 Sacroiliitis, not elsewhere classified (principal)
CPT/HCPCS: 27096; 99199; J1100; Q9965